=== PATIENT | male | born 1955 | race Caucasian/White ===

== ENCOUNTER 2023-01-09 14:29 | Outpatient (OUT) | payer MEDICARE, OTHER, SELFPAY ==
[2023-01-09 15:14] LABS: Basophils Percent Auto 0.2 % (0.2-2.0); Eosinophils Absolute Auto 0.2 10^3/uL (0.0-0.7); Eosinophils Percent Auto 5.6 % (0.9-7.0); Hematocrit 37.8 % (42.0-54.0); Hemoglobin 12.8 g/dL (14.0-18.0); Immature Granulocytes Abs Auto 0.01 10^3/uL (0.00-0.03); Immature Granulocytes Pct Auto 0.2 % (0.0-0.5); Lymphocytes Absolute Auto 0.7 10^3/uL (1.2-3.8); Lymphocytes Percent Auto 17.2 % (20.5-60.0); Mean Corpuscular HGB Conc 33.9 g/dL (29.9-35.2); Mean Corpuscular Hemoglobin 32.8 pg (25.9-34.0); Mean Corpuscular Volume 96.9 fL (80.0-94.0); Monocytes Absolute Auto 0.5 10^3/uL (0.3-0.8); Monocytes Percent Auto 11.8 % (1.7-12.0); Neutrophils Absolute Auto 2.8 10^3/uL (1.4-6.5); Platelet Count 112 10^3/uL (150-450); Red Cell Distribution Width 13.7 % (11.0-15.0); White Blood Count 4.3 10^3/uL (4.0-11.0)
[2023-01-09 15:27] LABS: Estimated Average Glucose 131 mg/dL; Glycohemoglobin A1C 6.2 % (4.5-6.2)
[2023-01-09 16:10] LABS: Alanine Aminotransferase 39 U/L (16-63); Albumin Globulin Ratio 0.7; Albumin Level 2.6 g/dL (3.4-5.0); Alkaline Phosphatase 153 U/L (46-116); Anion Gap 10.1; Aspartate Amino Transferase 42 U/L (15-37); BUN Creatinine Ratio 14.6; Bilirubin Total 2.4 mg/dL (0.2-1.0); Calcium 8.7 mg/dL (8.5-10.1); Carbon Dioxide 28.2 mmol/L (21.0-32.0); Chloride 104 mmol/L (98-107); Chol HDL Ratio 2.7; Cholesterol 147 mg/dL (<=200); Estimated GFR (African America >60 (>=60); Estimated GFR (Non-African Ame >60 (>=60); Free T3 2.33 pg/mL (2.18-3.98); Glucose 114 mg/dL (74-106); HDL Cholesterol 55 mg/dL (40-60); LDL Cholesterol Calculated 81.6 mg/dL; Potassium 4.3 mmol/L (3.5-5.1); Sodium 138 mmol/L (136-145); Thyroid Stimulating Hormone 0.768 uIU/mL (0.358-3.740); Total Protein 6.6 g/dL (6.4-8.2); Triglycerides 52 mg/dL (<=150); Uric Acid 4.3 mg/dL (3.5-7.2); VLDL CHOLESTEROL 10.4 mg/dL
[2023-01-09 16:38] LABS: Prostate Specific Antigen Scrn 0.17 ng/mL (<=4.00)
[2023-01-10 11:09] LABS: Insulin 27.4 uIU/mL (2.6-24.9)
== END 2023-01-09 14:30 ==
LOC: LAB 14:37
PROVIDERS: PCP Family Medicine; Visit Provider Family Medicine
DX: I10 Essential (primary) hypertension (principal); E11.21 Type 2 diabetes mellitus with diabetic nephropathy; E78.5 Hyperlipidemia, unspecified; R60.0 Localized edema; Z12.5 Encounter for screening for malignant neoplasm of prostate
CPT/HCPCS: 36415; 80053; 80061; 83036; 83525; 84436; 84443; 84481; 84550; 85025; G0103

== ENCOUNTER 2023-02-04 11:05 | Outpatient (OUT) | payer MEDICARE, OTHER, SELFPAY ==
[2023-02-04 12:21] LABS: Alanine Aminotransferase 42 U/L (16-63); Albumin Globulin Ratio 0.7; Albumin Level 2.5 g/dL (3.4-5.0); Alkaline Phosphatase 132 U/L (46-116); Aspartate Amino Transferase 37 U/L (15-37); BUN Creatinine Ratio 26.4; Bilirubin Total 1.5 mg/dL (0.2-1.0); Calcium 8.4 mg/dL (8.5-10.1); Carbon Dioxide 25.7 mmol/L (21.0-32.0); Chloride 108 mmol/L (98-107); Estimated GFR (African America >60 (>=60); Estimated GFR (Non-African Ame >60 (>=60); Globulin 3.6 g/dL; Glucose 76 mg/dL (74-106); Potassium 4.7 mmol/L (3.5-5.1); Sodium 140 mmol/L (136-145); Total Protein 6.1 g/dL (6.4-8.2)
[2023-02-05 06:08] LABS: HBsAg Screen Negative (Negative); HCV Ab Non Reactive (Non Reactive); Hep A Ab, IgM Negative (Negative); Hep B Core Ab, IgM Negative (Negative)
== END 2023-02-04 11:06 | disposition home or self-care (01) ==
LOC: LAB 11:08
PROVIDERS: PCP Family Medicine; Visit Provider Family Medicine
DX: R79.89 Other specified abnormal findings of blood chemistry (principal)
CPT/HCPCS: 36415; 80053; 80074

== ENCOUNTER 2023-05-27 12:17 | Emergency (ER) | payer MEDICARE, OTHER, SELFPAY ==
[2023-05-27 12:22] VITALS: BP 173/94; PULSE 71; RESP 24; TEMP 36.4; O2SAT 96; BMI 46.0
--- NOTE | 2023-05-27 12:31 | XR_ITS ---
The [address] [address] Patient Name: JAZMYNE PENN MRN: [id number] date: 1955 Sex: M Assigned Patient Location: ER Current Patient Location: ER Accession/Order Number: [id number] Exam Date: 05/27/2023 12:55 Report Date: 05/27/2023 13:10 At the request of: AFTAB KENNEY Procedure: XR chest 2V EXAMINATION: XR chest 2V HISTORY: sob COMPARISON: XR chest 03/04/2019 FINDINGS: LUNGS: Minimal haziness within lung bases, right greater than left. VASCULATURE: No increased pulmonary vasculature. PLEURA: No pneumothorax, effusion, or pleural thickening. CARDIAC: No cardiomegaly or cardiac silhouette abnormality. MEDIASTINUM: No visible mass or adenopathy. BONES: No fracture or visible bone lesion. OTHER: Negative. XR/XR chest 2V IMPRESSION: 1. Very mild opacity within lung bases; atelectasis versus infiltrates. Electronically authenticated by: ARIEL SIDHU Date: 05/27/2023 13:10
[2023-05-27 12:51] LABS: Hematocrit 37.2 % (42.0-54.0); Hemoglobin 12.5 g/dL (14.0-18.0); Mean Corpuscular HGB Conc 33.6 g/dL (29.9-35.2); Mean Corpuscular Hemoglobin 33.3 pg (25.9-34.0); Mean Corpuscular Volume 99.2 fL (80.0-94.0); Mean Platelet Volume 9.7 fL (9.5-13.5); Platelet Count 119 10^3/uL (150-450); Red Blood Count 3.75 10^6/uL (4.70-6.10); Red Cell Distribution Width 13.7 % (11.0-15.0); White Blood Count 5.1 10^3/uL (4.0-11.0)
[2023-05-27 13:04] LABS: Alanine Aminotransferase 34 U/L (16-63); Albumin Globulin Ratio 0.6; Albumin Level 2.3 g/dL (3.4-5.0); Alkaline Phosphatase 193 U/L (46-116); Anion Gap 6.4; Aspartate Amino Transferase 45 U/L (15-37); BUN Creatinine Ratio 21.2; Bilirubin Total 1.6 mg/dL (0.2-1.0); Calcium 8.4 mg/dL (8.5-10.1); Carbon Dioxide 29.1 mmol/L (21.0-32.0); Chloride 105 mmol/L (98-107); Estimated GFR (African America >60 (>=60); Estimated GFR (Non-African Ame >60 (>=60); Globulin 3.9 g/dL; Glucose 76 mg/dL (74-106); Potassium 4.5 mmol/L (3.5-5.1); Sodium 136 mmol/L (136-145); Total Protein 6.2 g/dL (6.4-8.2)
--- NOTE | 2023-05-27 13:08 | US_ITS ---
The [address] [address] Patient Name: JAZMYNE PENN MRN: [id number] date: 1955 Sex: M Assigned Patient Location: ER Current Patient Location: ED.MAIN Accession/Order Number: [id number] Exam Date: 05/27/2023 13:09 Report Date: 05/27/2023 13:47 At the request of: AFTAB KENNEY Procedure: US abdomen limited EXAM: US abdomen limited EXAM DATE: 05/27/2023 11:09 AM MDT COMPARISON: Ultrasound abdomen 01/11/2017. INDICATION: Ascites. TECHNIQUE: Limited ultrasound of the abdomen was performed to evaluate for ascites. Images were reviewed on a separate workstation. FINDINGS: Static images from the right lower quadrant, left upper quadrant, left lower quadrant and right upper quadrant are without evidence of intra-abdominal ascites. US/US abdomen limited IMPRESSION: No ascites visualized. Electronically authenticated by: NILA RYAN Date: 05/27/2023 13:47
[2023-05-27 13:16] LABS: Lactate/Lactic Acid 1.2 mmol/L (0.4-2.0)
[2023-05-27 13:32] LABS: Basophils Abs Manual 0.05 10^3/uL (0.00-0.10); Macrocytosis 1+; Monocytes Absolute Manual 0.66 10^3/uL (0.30-0.80); Segmented Neut Absolute Manual 3.57 10^3/uL (1.4-6.5)
--- NOTE | 2023-05-27 14:41 | ED.GENADUL1 ---
HPI - General Adult General Chief complaint: Abdominal Pain Stated complaint: ABDOMIANL PAIN Time Seen by Provider: 05/27/23 12:30 Source: patient Mode of arrival: walk-in Limitations: no limitations History of Present Illness HPI narrative: Patient is a 67-year-old male who is presenting to the Emergency Room with chief complaint abdominal swelling, and a 20?30 pound weight gain in the past 2 months. Patient believes that his ascites is filling up again. Patient has VELOZ From previous diagnoses. Patient had a stent placed in his liver approximately 10 years ago. As a last time patient had a paracentesis was approximately 10 years ago. Patient PCP is Dr. Muñoz. Patient was seen a liver specialist at [facility] that is no longer there. Patient was directed to come to the Emergency Room by Dr. Muñoz nursing staff for evaluation. Patient has no fever, chills. No chest pain. Patient has mild shortness of breath, patient feels that his abdomen is getting bigger which is causing more mild shortness of breath. He does have a history of emphysema chronic obstructive pulmonary disease. Patient has no nausea or vomiting. No diarrhea. No bowel or bladder changes. This has been ongoing for 2 months, slowly getting worse, so patient came into the Emergency Room today for evaluation. Patient has chronic peripheral edema to bilateral lower extremities, patient thinks his swelling is getting a little worse. . All systems are negative except as noted/marked. All systems reviewed and otherwise negative. . Nurses note and vital signs reviewed and patient is not hypoxic. General: The patient appears well and in no apparent distress. Patient is resting comfortably on cart. Patient is not toxic, lethargic, or listless Skin: Warm, dry, no pallor noted. There is no rash noted. No petechiae, purpura. Head: Normocephalic, atraumatic Eye: Normal conjunctiva, no drainage, EOMI. PERRL Ears, Nose, Mouth, and Throat: oral mucosa is moist. Nares patent. Mouth without vesicles. Cardiovascular: Regular Rate and Rhythm, no murmur, gallop, rub Respiratory: Patient is in no distress, no accessory muscle use, lungs are clear to auscultation, no wheezing, rales or rhonchi Back: non-tender, no CVA tenderness bilaterally to percussion. No CT LS midline pain GI: soft, no tenderness to palpation, no masses appreciated. No rebound, guarding, or rigidity noted. No flank pain bilateral, No distention Musculoskeletal: Patient has full range of motion of all of the extremities, no motor, sensory, or focal neurological deficits. 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 No new signs of cellulitis or infection, no new drainage. Neurological: A&O x3, normal speech Psychiatric: Cooperative Related Data Home Medications Medication Instructions Recorded Confirmed carvedilol 6.25 mg tablet 6.25 mg PO DAILY 05/27/23 05/27/23 furosemide 20 mg tablet 20 mg PO DAILY 05/27/23 05/27/23 glimepiride 4 mg tablet 4 mg PO DAILY 05/27/23 05/27/23 potassium chloride 20 mEq 20 meq PO DAILY 05/27/23 05/27/23 tablet,extended release(part/cryst) (Klor-Con M) spironolactone 25 mg tablet 25 mg PO QID 05/27/23 05/27/23 Allergies Allergy/AdvReac Type Severity Reaction Status Date / Time No Known Drug Allergies Allergy Verified 05/27/23 12:25 PFSH PFS Social History Smoking status: Light tobacco smoker Exam Constitutional Vital Signs, click to edit/add: Last Vital Signs Temp 97.6 F 05/27/23 12:22 Pulse 71 05/27/23 12:22 Resp 24 05/27/23 12:22 BP 173/94 H 05/27/23 12:22 Pulse Ox 96 05/27/23 12:22 Course Vital Signs Vital signs: Vital Signs Temperature 97.6 F 05/27/23 12:22 Pulse Rate 71 05/27/23 12:22 Respiratory Rate 24 05/27/23 12:22 Blood Pressure 173/94 H 05/27/23 12:22 Pulse Oximetry 96 05/27/23 12:22 Temperature 97.6 F 05/27/23 12:22 Pulse Rate 71 05/27/23 12:22 Respiratory Rate 24 05/27/23 12:22 Blood Pressure 173/94 H 05/27/23 12:22 Pulse Oximetry 96 05/27/23 12:22 Medical Decision Making MDM Narrative Medical decision making narrative: Patient labwork shows chronic changes, nothing acute. Patient does have mild anemia, mild, cytopenia, and slight elevation of total bilirubin and alkaline phosphatase. Patient had a ultrasound that showed no ascites. Information and labs and ultrasound report were discussed with patient and Dr. Muñoz. Patient follow-up with Dr. Muñoz for further evaluation. Lab Data Lab results reviewed: Yes I reviewed the patient's lab results Labs: Lab Results 05/27/23 Range/Units 12:40 WBC 5.1 (4.0-11.0) 10^3/uL RBC 3.75 L (4.70-6.10) 10^6/uL Hgb 12.5 L (14.0-18.0) g/dL Hct 37.2 L (42.0-54.0) % MCV 99.2 H (80.0-94.0) fL MCH 33.3 (25.9-34.0) pg MCHC 33.6 (29.9-35.2) g/dL RDW 13.7 (11.0-15.0) % Plt Count 119 L (150-450) 10^3/uL MPV 9.7 (9.5-13.5) fL Seg Neuts % (Manual) 70.0 Lymphocytes % (Manual) 8.0 L (20.5-60.0) % Monocytes % (Manual) 13.0 H (1.7-12.0) % Eosinophils % (Manual) 8.0 H (0.9-7.0) % Basophils % (Manual) 1.0 (0.2-2.0) % Neutrophils # (Manual) 3.57 (1.4-6.5) 10^3/uL Lymphocytes # (Manual) 0.40 L (1.20-3.80) 10^3/uL Monocytes # (Manual) 0.66 (0.30-0.80) 10^3/uL Eosinophils # (Manual) 0.40 (0.00-0.70) 10^3/uL Basophils # (Manual) 0.05 (0.00-0.10) 10^3/uL Macrocytosis 1+ Sodium 136 (136-145) mmol/L Potassium 4.5 (3.5-5.1) mmol/L Chloride 105 (98-107) mmol/L Carbon Dioxide 29.1 (21.0-32.0) mmol/L Anion Gap 6.4 BUN 21.0 H (7.0-18.0) mg/dL Creatinine 0.99 (0.70-1.30) mg/dL Est GFR ( Amer) >60 (>=60) Est GFR (Non-Af Amer) >60 (>=60) BUN/Creatinine Ratio 21.2 Glucose 76 (74-106) mg/dL Lactate 1.2 (0.4-2.0) mmol/L Calcium 8.4 L (8.5-10.1) mg/dL Total Bilirubin 1.6 H (0.2-1.0) mg/dL AST 45 H (15-37) U/L ALT 34 (16-63) U/L Alkaline Phosphatase 193 H (46-116) U/L Total Protein 6.2 L (6.4-8.2) g/dL Albumin 2.3 L (3.4-5.0) g/dL Globulin 3.9 g/dL Albumin/Globulin Ratio 0.6 Lipase 115.0 H (16.0-77.0) U/L Patient has mild anemia, thrombocytopenia. Patient has mild elevation of LFTs. Discharge Plan Discharge Chief Complaint: Abdominal Pain Clinical Impression: Abdominal pain Patient Disposition: Home, Self-Care Condition: Fair Prescriptions / Home Meds: No Action carvedilol 6.25 mg tablet 6.25 mg PO DAILY furosemide 20 mg tablet 20 mg PO DAILY glimepiride 4 mg tablet 4 mg PO DAILY potassium chloride [Klor-Con M20] 20 mEq tablet,ER particles/crystals 20 meq PO DAILY spironolactone 25 mg tablet 25 mg PO QID Instructions: Abdominal Pain (ED) Additional Instructions: There is no obvious ascites noted on-year-old ultrasound. Information is been given to Dr. Muñoz. Follow-up with him in the office for further treatment as needed Stand Alone Forms: Portal Instructions Referrals: Desmond Muñoz MD [Primary Care Provider] - 1 week Discharge Date/Time: 05/27/23 14:39
== END 2023-05-27 14:39 | disposition home or self-care (01) ==
PROVIDERS: Emergency Provider Emergency Medicine; PCP Family Medicine
DX: R10.9 Unspecified abdominal pain (principal); K75.81 Nonalcoholic steatohepatitis (NASH); R60.9 Edema, unspecified; Z79.899 Other long term (current) drug therapy; F17.210 Nicotine dependence, cigarettes, uncomplicated
CPT/HCPCS: 36415; 71046; 76705; 80053; 83605; 83690; 85027; 99285

== ENCOUNTER 2023-05-30 10:51 | Outpatient (OUT) | payer MEDICARE, OTHER, SELFPAY ==
[2023-05-30 11:39] LABS: Hemoglobin 12.6 g/dL (14.0-18.0); Mean Corpuscular HGB Conc 33.2 g/dL (29.9-35.2); Mean Corpuscular Hemoglobin 33.3 pg (25.9-34.0); Mean Corpuscular Volume 100.5 fL (80.0-94.0); Mean Platelet Volume 10.4 fL (9.5-13.5); Platelet Count 133 10^3/uL (150-450); Red Blood Count 3.78 10^6/uL (4.70-6.10); Red Cell Distribution Width 13.6 % (11.0-15.0); White Blood Count 5.9 10^3/uL (4.0-11.0)
[2023-05-30 11:49] LABS: Alanine Aminotransferase 37 U/L (16-63); Albumin Globulin Ratio 0.6; Albumin Level 2.4 g/dL (3.4-5.0); Alkaline Phosphatase 198 U/L (46-116); Anion Gap 7.3; Aspartate Amino Transferase 48 U/L (15-37); BUN Creatinine Ratio 15.7; Bilirubin Total 1.3 mg/dL (0.2-1.0); Calcium 8.7 mg/dL (8.5-10.1); Carbon Dioxide 30.9 mmol/L (21.0-32.0); Chloride 105 mmol/L (98-107); Estimated GFR (African America >60 (>=60); Estimated GFR (Non-African Ame >60 (>=60); Globulin 4.1 g/dL; Glucose 121 mg/dL (74-106); Potassium 4.2 mmol/L (3.5-5.1); Sodium 139 mmol/L (136-145); Thyroid Stimulating Hormone 0.822 uIU/mL (0.358-3.740); Total Protein 6.5 g/dL (6.4-8.2)
[2023-05-30 12:29] LABS: Free T4 1.15 ng/dL (0.76-1.46)
[2023-05-30 12:41] LABS: Atypical Lymphocytes Abs Man 0.1; Basophils Abs Manual 0.05 10^3/uL (0.00-0.10); Eosinophils Absolute Manual 0.17 10^3/uL (0.00-0.70); Lymphocytes Absolute Manual 0.82 10^3/uL (1.20-3.80); Monocytes Absolute Manual 0.59 10^3/uL (0.30-0.80); Segmented Neut Absolute Manual 4.13 10^3/uL (1.4-6.5)
== END 2023-05-30 10:52 | disposition home or self-care (01) ==
LOC: LAB 10:56
PROVIDERS: PCP Family Medicine; Visit Provider Family Medicine
DX: R07.9 Chest pain, unspecified (principal); I11.0 Hypertensive heart disease with heart failure; I50.9 Heart failure, unspecified
CPT/HCPCS: 36415; 80053; 83880; 84439; 84443; 85025; 85027

== ENCOUNTER 2023-06-12 13:57 | Outpatient (OUT) | payer MEDICARE, OTHER, SELFPAY ==
--- NOTE | 2023-06-12 14:36 | CA_ITS ---
Patient Name: JAZMYNE PENN MR#: [id number] : 1955 Exam Date: 06/12/2023 Ordering Doctor: DR Desmond Muñoz . ECHOCARDIOGRAM REPORT PROCEDURE: CA ECHO DOPPLER COMPLETE INDICATIONS: Chest pain COMPARISON: None. DESCRIPTION: COMPLETE ECHOCARDIOGRAM Real-time transthoracic echocardiography with 2D, M-mode, spectral and color flow Doppler performed. QUALITY: Technically difficult due to patient's condition. 71 340# BSA 2.64 m2 LEFT VENTRICLE: Normal chamber size. Thickened septal wall. LV EF: Global left ventricular systolic function is difficult to assess but appears preserved; visually estimated ejection fraction is 55 to 60%. Unable to assess regional wall motion abnormalities. DIASTOLIC: Grade II diastolic dysfunction. ATRIAL SEPTUM: Inadequately seen. LEFT ATRIUM: Mild dilatation. RIGHT ATRIUM: Mild dilatation. RIGHT VENTRICLE: Normal chamber size. Normal right ventricular systolic function. TRICUSPID VALVE: Normal mobility and thickness. No stenosis with trivial regurgitation. Doppler studies reveal mildly (35-45) elevated right sided pressures. RVSP 37 mmHg MITRAL VALVE: Normal mobility and thickness. No evidence of mitral valve stenosis. There is no mitral annular calcification. No mitral regurgitation. AORTIC VALVE: Normal trileaflet appearance. Thickened aortic valve. Normal leaflet mobility. No evidence of aortic valve stenosis. No aortic regurgitation. AORTIC ROOT: Normal diameter and appearance. PULMONIC VALVE: Not well visualized. No stenosis. No regurgitation. PERICARDIUM: No evidence of pericardial effusion. IVC: Not well visualized. CONCLUSION: 1. Global left ventricular systolic function is normal; visually estimated ejection fraction is 55 to 60% 2. The right ventricle is normal in size and systolic function 3. Biatrial enlargement 4. Grade 2, moderate diastolic dysfunction 5. Mildly elevated right ventricular systolic pressure 6. Valvular structures are poorly seen; no significant valvular abnormalities Adult Echocardiography Procedure Report Left Ventricle LVEDD (3.7 - 5.6 cm): 4.82 cm LVESD (2.2 - 4.0 cm): 3.20 cm LVIVS thickness (0.6 - 1.2 cm): 1.57 cm LVPW thickness (0.5 - 1.0 cm): 1.14 cm e': 0.09 m/s E - e': 10.20 LVOT Max Gradient: 3.03 mm[Hg] LVOT Area (cm2): 0.87 m/s Peak Velocity (LVOT): 0.87 m/s LVOT Diameter 2.39 cm Left Atrium LA Volume Index (2D A2C): 36.58 ml/m2 Left Atrium Systolic Dimension: 3.85 cm Mitral Valve MV E to A Ratio: 0.99 Mitral Valve A-Wave Peak Velocity: 0.97 m/s Mitral Valve E-Wave Peak Velocity: 0.96 m/s Right Ventricle Aorta AO Root Diam: 4.04 cm Aortic Valve AoV Area (Peak Oswaldo): 3.40 cm2, 3.40 cm2 Peak Velocity(Antegrade Flow): 1.14 m/s Peak Gradient(Antegrade Flow): 5.22 mm[Hg] Tricuspid Valve Peak Velocity (Regurgitant Flow): 2.93 m/s Pulmonic Valve Mean Gradient: 4.59 mm[Hg] Mean Velocity: 1.00 m/s Peak Velocity: 1.44 m/s, 1.36 m/s Peak Gradient: 7.41 mm[Hg], 8.32 mm[Hg] Right Atrium Right Atrium Systolic Pressure: 52.43 ml, 52.43 ml Dictated by: Lillie Bonilla M.D. on 06/14/2023 at 14:17 Approved by: Lillie Bonilla M.D. on 06/14/2023 at 14:21
== END 2023-06-12 13:58 | disposition home or self-care (01) ==
LOC: CARD 13:57
PROVIDERS: PCP Family Medicine; Visit Provider Family Medicine
DX: R07.9 Chest pain, unspecified (principal)
CPT/HCPCS: 93306

== ENCOUNTER 2023-06-24 08:53 | Outpatient (OUT) | payer MEDICARE, OTHER, SELFPAY ==
--- NOTE | 2023-06-24 | NM_ITS ---
Patient Name: JAZMYNE PENN MR#: [id number] : 1955 Exam Date: 06/24/2023 Ordering Doctor: DR Desmond Muñoz . RADIOLOGY REPORT PROCEDURE: NM ALESHIA PERF SPECT REST STR COMPARISON: None. INDICATIONS: CHEST PAIN TECHNIQUE: Exam Description: Stress/Rest two day protocol gated SPECT Rest Imagin.9 mCi Tc-99m Cardiolite IV on 06/25/2023 Stress Imaging 26.0 mCi Tc-99m Cardiolite IV on 06/24/2023 Exercise Protocol: 0.4 mg Lexiscan given IV Heart Rate (bpm): Rest: 65 Max: 77 PMHR: 49 Blood Pressure: Rest: 132/86 Max: 140/82 Symptoms: Rest and peak stress ECG findings were normal and the exercise portion of the study was normal per attending physician Dr. Langford . For more details please see separate cardiac stress test report. FINDINGS: QUALITY OF STUDY: Excellent. PERFUSION DEFECT: LOCATION: Mid-inferolateral. Apical inferior. SIZE: Small (1-2 segments). SEVERITY: Mild. TYPE: Persistent. WALL MOTION: Normal. LV SIZE: Enlarged; EDV 164 mL. TID / TCD: None; 1.0 LVEF: Normal. Calculated EF 64%. SUMMARY: Myocardial perfusion imaging study has ABNORMAL findings. CONCLUSION: 1. No acute or reversible ischemia. 2. Inferior lateral wall small area of fixed ischemia versus attenuation artifact. Fixed ischemia is favored. 3. Left ventriculomegaly, 164 mL. 4. Normal wall motion and ejection fraction. Dictated by: Ronald Davis M.D. on 06/25/2023 at 15:03 Approved by: Ronald Davis M.D. on 06/25/2023 at 15:13
[2023-06-24] MEDS: REGADENOSON 0.4 MG/5 ML SYRINGE IV (10:00)
--- NOTE | 2023-06-24 15:30 | PM.STRESS ---
Stress Test Stress Test Allergies Allergy/AdvReac Type Severity Reaction Status Date / Time No Known Drug Allergies Allergy Verified 05/27/23 12:25 Requesting physician: Desmond Muñoz Procedure: Lexiscan Cardiolite stress test General Information: Reason for Stress Test: Chest pain, dyspnea Cardiac History and Risk Factors: Smokes cigars, HTN, DM2. Father had valve replacement . Resting 12 - Lead Electrocardiogram: Rate & rhythm: Normal sinus at a rate of 63. [place]: Normal T-waves: Biphasic to flattened in aVL ST-segments: Normal Stress Test: Protocol: Kavon protocol was initiated, but due to inability to ambulate on the treadmill, the exercise component was canceled.? Testing was changed to Lexiscan protocol, with injection of 0.4mg Lexiscan IV push followed by Cardiolite. Blood pressure: Initial: 132/86, Maximum: 140/82 Rate & rhythm: Patient remained in sinus rhythm during the exercise and recovery portions of the study.? The maximum heart rate was 77, which was 49% of the maximum predicted heart rate 155. Occasional PVC noted. ST-segments & T-waves: There were no T-wave changes and no ST-segment changes when compared to the baseline EKG. Patient response/symptoms: There were no symptoms similar to the chief complaint. Interpretation: This is a normal Lexiscan stress test without electrocardiographical evidence of ischemia or infarct. No reproducible symptoms. Cardiolite imaging interpretation will be reported separately. Clinical correlation required.?
== END 2023-06-24 08:54 | disposition home or self-care (01) ==
LOC: CARD 08:53
PROVIDERS: PCP Family Medicine; Visit Provider Family Medicine
DX: R07.9 Chest pain, unspecified (principal)
CPT/HCPCS: 78452; 93017; A9500; J2785

== ENCOUNTER 2023-08-29 12:59 | Emergency (ER) | payer OTHER, SELFPAY ==
[2023-08-29 13:05] VITALS: BP 133/70; PULSE 69; RESP 20; TEMP 36.6; O2SAT 97; BMI 45.0
[2023-08-29 13:13] VITALS: O2SAT 98
--- OUTSIDE RECORDS SUMMARY | 2023-08-29 13:20 | XMS_ITS | CCD ---
Author Name Unknown Address [address] [place] [address] Organization [facility] Care Team Providers Care Stain Dipper Name Role Phone RASHAAD, DR WOODS Admitting Unavailable HOY, DR WOODS Attending Unavailable HOY, DR WOODS Primary Care Unavailable HOY, DR WOODS Admitting Unavailable HOY, DR WOODS Attending Unavailable HOY, DR WOODS Primary Care Unavailable HOY, DR WOODS Admitting Unavailable HOY, DR WOODS Attending Unavailable HOY, DR WOODS Primary Care Unavailable HOY, DR WOODS Consulting Unavailable Peggy Muñoz M Primary Care Unavailable Alden You Attending UnavailAlden Fuller Admitting UnavailTruman Samaniego Attending Unavailable Nat MURRAY Attending Unavailable Nat MURRAY Attending Unavailable Truman FUNES Attending Unavailable Nat MURRAY Attending Unavailable Tuan Lira Attending Unavailable Nat MURRAY Attending Unavailable Nat MURRAY Admitting Unavailable Medications Current Medications Medication Drug Class(es) Dates Sig (Normalized) Sig (Original) canagliflozin 100 mg oral tablet (1 source) Sodium-Glucose Cotransporter 2 Inhibitor Start: 06-09-2019 take 1 tablet by mouth once daily Canagliflozin (Invokana) 100 mg Tablet Active 100 MG PO Daily June 09, 2019 1:00am carvedilol 6.25 mg oral tablet (1 source) alpha-Adrenergic Elana, beta-Adrenergic Elana Start: 06-09-2019 take 1 tablet by mouth twice daily Carvedilol (Coreg) 6.25 mg Tablet Active 6.25 MG PO Twice daily June 09, 2019 1:00am ferrous sulfate 325 mg oral tablet (1 source) Start: 07-24-2019 take 325 mg by mouth three times daily Ferrous Sulfate Active 325 MG PO Three times daily July 24, 2019 1:00am furosemide 20 mg oral tablet (1 source) Loop Diuretic Start: 06-09-2019 Furosemide (Lasix) 20 mg Tablet Active 20 MG PO Q48H June 09, 2019 1:00am lisinopril 2.5 mg oral tablet (1 source) Angiotensin Converting Enzyme Inhibitor Start: 06-09-2019 take 2.5 mg by mouth once daily Lisinopril Active 2.5 MG PO Daily June 09, 2019 1:00am pioglitazone 15 mg oral tablet (1 source) Peroxisome Proliferator Receptor alpha Agonist, Peroxisome Proliferator Receptor gamma Agonist, Thiazolidinedione Start: 06-09-2019 take 1 tablet by mouth once daily Pioglitazone (Actos) 15 mg Tablet Active 15 MG PO Daily June 09, 2019 1:00am potassium chloride 20 meq powder for oral solution (1 source) Start: 06-09-2019 take 20 mEq by mouth once daily Potassium Chloride (Klor-Con) 20 mEq Packet Active 20 MEQ PO Daily June 09, 2019 1:00am spironolactone 25 mg oral tablet (1 source) Aldosterone Antagonist Start: 06-09-2019 take 25 mg by mouth four times daily Spironolactone Active 25 MG PO Four times daily June 09, 2019 1:00am vitamin b12 0.5 mg oral tablet (1 source) Vitamin B12 Start: 07-24-2019 take 1 tablet by mouth once daily Cyanocobalamin (Vitamin B-12) (Vitamin B-12) 500 mcg Tablet Active 500 MCG PO Daily July 24, 2019 1:00am zinc sulfate 220 mg oral tablet (1 source) Start: 06-09-2019 take 220 mg by mouth twice daily Zinc Sulfate Active 220 MG PO Twice daily June 09, 2019 1:00am Problems Active Problems Problem Classification Problem Date Documented Date Episodic/Chronic Deficiency and other anemia (1 source) Pancytopenia; Translations: [Other pancytopenia] 06-09-2019 Chronic Diabetes mellitus without complication (4 sources) Type 2 diabetes mellitus without complications; Translations: [TYPE 2 DM WITHOUT COMPLICATIONS] Onset: 07-02-2022 Chronic Hepatitis (1 source) Cirrhosis - non-alcoholic; Translations: [Nonalcoholic steatohepatitis (VELOZ)] 06-09-2019 Chronic Other liver diseases (1 source) Unspecified cirrhosis of liver; Translations: [K74.60 - Unspecified cirrhosis of liver] Onset: 08-04-2019 Chronic Unclassified (1 source) 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; Translations: [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] Onset: 08-04-2019 Past or Other Problems Problem Classification Problem Date Documented Da te Episodic/Chronic Other screening for suspected conditions (not mental disorders or infectious disease) (1 source) Abnormal findings on diagnostic imaging of other abdominal regions, including retroperitoneum; Translations: [R93.5 - Abnormal findings on diagnostic imaging of other abdominal regions, including retroperitoneum] Onset: 08-04-2019 Episodic Results Test Name Value Interpretation Reference Range Facility [facility] 04-18-2023 Consent [id number] 8#1.00CD:127 [facility] In office Testingon 04-18-20 23 In office Testing [id number] 87#1.00CD:127 [facility] Registrationon 04-18-2023 Registration [id number] 817#1.00CD:127 [facility] In office Testingon 03-15-20 23 In office Testing [id number] 518#1.00CD:127 [facility] [place] 03-08-2023 Consent [id number] 428#1.00CD:127 [facility] Registrationon 03-08-2023 Registration [id number] 376#1.00CD:127 [facility] In office Testingon 02-06-20 23 In office Testing [id number] 58#1.00CD:127 [facility] [place] 02-04-2023 Consent [id number] 60#1.00CD:127 [facility] Registrationon 02-04-2023 Registration [id number] 54#1.00CD:127 [facility] Patient Correspondenceon Patient Correspondence 104.170. [id number] F2#1.00CD:127 [facility] Physician Referralon 023 Physician Referral 104.170.. [id number] 0B#1.00CD:127 [facility] Physician Referral 104.170 [id number] 6C#1.00CD:127 [facility] [place] 11-09-2022 Consent [id number] 990#1.00CD:127 [facility] In office Testingon 11-10-19 23 In office Testing [id number] 0270#1.00CD:127 [facility] Registrationon 11-09-2022 Registration [id number] 388#1.00CD:127 [facility] [place] 07-27-2022 Consent [id number] 47#1.00CD:127 [facility] Registrationon 07-27-2022 Registration [id number] 98#1.00CD:127 [facility] [place] 07-09-2022 Consent [id number] 446#1.00CD:127 [facility] In office Testingon 07-09-20 22 In office Testing [id number] 803#1.00CD:127 [facility] Registrationon 07-09-2022 Registration [id number] 104#1.00CD:127 [facility] In office Testingon 07-06-20 22 In office Testing [id number] 851#1.00CD:127 Normal [facility] GLYCOHEMOGLOBIN A1Con 2021 ADA RECOMMENDATION SEE BELOW Normal [facility] Comment on above: Result Comment: ADA RECOMMENDED LIMIT 4.0 - 6.0 ADA THERAPEUTIC TARGET < 7.0 ACTION SUGGESTED > 7.0 Performed By: #### A 1C #### [facility] [address] [place] [address] Dr. Sandor Coffman Glucose [Mass/Vol] 140 mg/dL Normal [facility] Comment on above: Performed By: #### A 1C #### [facility] [address] [place] [address] Dr. Sandor Coffman HbA1c (Bld) [Mass fraction] 6.5 % Critically high 4.5-6.2 [facility] Comment on above: Performed By: #### A 1C #### [facility] [address] [place] [address] Dr. Sandor Coffman Registrationon 05-01-2022 Registration [id number] 929#1.00CD:127 Normal [facility] [place] 04-27-2022 Consent [id number] 0784#1.00CD:127 Normal [facility] HIP LEFT 1 OR 2 VWS WITH PEL VISon 08-27-2019 HIP LEFT 1 OR 2 VWS WITH PELVIS [facility] Department of Radiology [address] [place] [id number] Patient Name: JAZMYNE PENN : 1955 Sex: M Age: Race: White Pt. Location: Patient Status: Ordered Date: 08/27/2019 9:45:00 AM Completed Date: 08/27/2019 09:44 AM Requesting Provider: LIZET LOVELACE Attending Provider: Report Copy To: Signs & Symptoms: Z96.642 Presence of left artificial hip joint I10 History: [place] Comments: , Views (X-RAY, HIP): Radiologic Protocol , Views (X-RAY, HIP): Radiologic Protocol , , , Ordering Provider - LIZET LOVELACE MD , Exam: HIP LEFT 1 OR 2 VWS WITH PELVIS HIP LEFT 1 OR 2 VWS WITH PELVIS 08/27/2019 9:44 AM SIGNS AND SYMPTOMS: Z96.642 Presence of left artificial hip joint I10 TECHNOLOGIST COMMENTS: Ortho check left hip March 2019. QUESTION FOR THE RADIOLOGIST: , Views (X-RAY, HIP): Radiologic Protocol , Views (X-RAY, HIP): Radiologic Protocol , , , Ordering Provider - LIZET LOVELACE MD , PROTOCOL: AP(PA) and Lateral views were obtained. COMPARISON: 06/18/2019 FINDINGS: Left total hip in satisfactory alignment. Persistent lucency between the proximal orthopedic prosthesis bone interface may reflect ReVision, prior infection, or loosening. Degenerative changes right hip. Pelvic alignment satisfactory IMPRESSION: 1. No change in alignment with the chronic findings as above. Electronically signed: David Sanford. Transcribed by: [email or web address], User Resident: Electronically Signed by: DAVID SANFORD @ 08/27/2019 01:52 PM Normal [facility] Comment on above: Order Comment: , Alex ws (X-RAY, HIP): Radiologic Protocol , Views (X-RAY, HIP): Radiologic Protocol , , , Ordering Provider - LIZET LOVELACE MD , HIP LEFT 1 OR 2 VWS WITH PEL VISon 06-18-2019 HIP LEFT 1 OR 2 VWS WITH PELVIS [facility] Department of Radiology [address] [place] [id number] Patient Name: JAZMYNE PENN : 1955 Sex: M Age: Race: White Pt. Location: Patient Status: Ordered Date: 06/17/2019 3:35:00 PM Completed Date: 06/18/2019 10:30 AM Requesting Provider: LIZET LOVELACE Attending Provider: Report Copy To: Signs & Symptoms: Z96.642 Presence of left artificial hip joint I10 History: [place] Comments: , Views (X-RAY, HIP): Radiologic Protocol , Views (X-RAY, HIP): Radiologic Protocol , , , Ordering Provider - LIZET LOVELACE MD , Exam: HIP LEFT 1 OR 2 VWS WITH PELVIS HIP LEFT 1 OR 2 VWS WITH PELVIS 06/18/2019 10:30 AM EST SIGNS AND SYMPTOMS: Z96.642 Presence of left artificial hip joint I10 TECHNOLOGIST COMMENTS: History of multiple left hip surgeries, last surgery was 04/10/2019. Ortho follow up. QUESTION FOR THE RADIOLOGIST: , Views (X-RAY, HIP): Radiologic Protocol , Views (X-RAY, HIP): Radiologic Protocol , , , Ordering Provider - LIZET LOVELACE MD , PROTOCOL: AP(PA) and Lateral views were obtained. COMPARISON: None FINDINGS: No pelvic fracture. Total hip arthroplasty. Alignment unchanged. No periprosthetic fracture or loosening. I'll degenerative changes in the right hip. No other pelvic fractures noted. IMPRESSION: 1. Stable left total hip arthroplasty. No periprosthetic fracture. No loosening Electronically signed by:Carlos Cameron. Transcribed by: [email or web address], User Resident: Electronically Signed by: CARLOS CAMERON @ 06/18/2019 02:11 PM Normal [facility] Comment on above: Order Comment: , Heidie ws (X-RAY, HIP): Radiologic Protocol , Views (X-RAY, HIP): Radiologic Protocol , , , Ordering Provider - LIZET LOVELACE MD , Encounters Encounter Date Encounter Type Care Provider Facility Start: 04-18-2023 End: 04-19-2023 ambulatory Tuan Churchaquilino [facility] Start: 03-08-2023 End: 03-09-2023 ambulatory Nat Petr TREVOR Facility[facility] Start: 02-04-2023 End: 02-05-2023 ambulatory Nat Petr TREVOR [facility] Start: 01-10-2023 ambulatory Truman FUNES Facilit y:[facility] Start: 01-09-2023 ambulatory Truman FUNES Facilit y:[facility] Suazo Start: 11-09-2022 End: 11-10-2022 ambulatory Nat Petr TREVOR [facility] Start: 07-27-2022 End: 07-28-2022 ambulatory Truman FUNES [facility] Start: 07-02-2022 End: 07-03-[address] PEGGY MUÑOZ Facility:[facility] Start: 06-15-2022 End: 06-16-2022 ambulatory Nat Petr MURRAY [facility] Start: 04-27-2022 End: 04-28-2022 ambulatory Truman FUNES [facility] Start: 12-22-[address] PEGGY MUÑOZ Facility :[facility] Start: 10-03-[address] PEGGY MUÑOZ Facility :[facility] Start: 08-04-2019 End: 08-04-2019 ambulatory Peggy Muñoz Facility:[facility] Payers Date Payer Category Payer Unknown [id number] 1957 Self-pay 1955 Unknown [id number] 1955 Unknown [id number] 1955 Unknown [id number] 1955 Unknown [id number] Medicare [id number] Private Health Insurance [employer] [id number] Unknown [id number] Unknown [id number] Worker's Compensation [employer] [facility] [id number] Social History Date Type Detail Facility Tobacco smoking stat [facility] Unknown if ever smoked [facility] Work Phone: Start: 1955 Sex Assigned At Male [place] Evaluation note Note Date & Type Note Facility Evaluation note No assessment information availa ble [facility] Work Phone: Summary Purpose Family History No Family History Records Found Relationship Condition Age at Onset Recorded Date/T jacob Not Specified No pertinent family history Unknown Advance Directives No Advanced Directives Records FoundNo Advanced Directives Records FoundNo Advanced Directives Records FoundNo Advanced Directives Records Found Additional Source Comments (unrecognized sect ion and content) No Status Records FoundNo Status Records FoundNo Status Records FoundNo Status Records Found INFORMATION SOURCE (unrecogn ized section and content) DATE CREATED AUTHOR 06/17/2020 [facility] DATE CREATED AUTHOR AUTHOR'S ORGANIZ ATION 07/07/[address] [facility] DATE CREATED AUTHOR AUTHOR'S ORGANIZ ATION 03/30/2023 [facility] DATE CREATED AUTHOR AUTHOR'S ORGANIZ ATION 04/20/2023 [facility] Goals (unrecognized section and content) Goals may be documented in a n alternate section FOR RECORDS PERTAINING TO PATIENTS WHO ARE OR HAVE BEEN ENROLLED IN A CHEMICAL DEPENDENCY/SUBSTANCEABUSE PROGRAM, SOME INFORMATION MAY BE OMITTED. This clinical summary was aggregated from multiple sources. Caution should be exercised in using it in the provision of clinical care. This summary normalizes information from multiple sources, and as a consequence, information in this document may materially change the coding, format and clinical context of patient data. In addition, data may be omitted in some cases. CLINICAL DECISIONS SHOULD BE BASED ON THE PRIMARY CLINICAL RECORDS. [employer] provides no warranty or guarantee of the accuracy or completeness of information in this document.
--- NOTE | 2023-08-29 13:39 | XR_ITS ---
The [address] [address] Patient Name: JAZMYNE PENN MRN: [id number] date: 1955 Sex: M Assigned Patient Location: ER Current Patient Location: ER Accession/Order Number: [id number] Exam Date: 08/29/2023 13:48 Report Date: 08/29/2023 14:23 At the request of: BAYRON CHAU Procedure: XR ribs RT min 3V w CXR1V IMAGES REVIEWED: XR ribs RT min 3V w CXR1V COMPARISON: 05/27/2023. CLINICAL INDICATION: fall, trauma FINDINGS/IMPRESSION: 1. Acute mildly displaced right posterior fifth and sixth rib fractures. 2. Associated small right lateral midlung hemothorax/pleural thickening. 3. Numerous old right rib fractures with callus formation. 4. No evidence of pneumothorax. Electronically authenticated by: ANNABEL BROWN Date: 08/29/2023 14:23
[2023-08-29 14:30] VITALS: BP 138/68; PULSE 68; RESP 20; O2SAT 99
--- NOTE | 2023-08-29 14:33 | CT_ITS ---
The [address] [address] Patient Name: JAZMYNE PENN MRN: [id number] date: 1955 Sex: M Assigned Patient Location: ER Current Patient Location: ER Accession/Order Number: [id number] Exam Date: 08/29/2023 15:47 Report Date: 08/29/2023 16:16 At the request of: ARNOLD BOYLE Procedure: CT chest w con EXAM: CT chest w con HISTORY: Rib fractures, hemothorax COMPARISON: Right rib radiographs today at 1:58 PM TECHNIQUE: CT of the chest with IV contrast. FINDINGS: There is no axillary or mediastinal thoracic lymphadenopathy. Normal heart size. Aorta is normal caliber. There are acute nondisplaced fractures of the posterolateral right fifth, sixth, and lateral seventh ribs. Numerous healed remote fractures are also present which are visualized radiographically. There is no hemothorax or pulmonary contusion. No pneumothorax. Limited evaluation of the upper abdomen demonstrates a TIPS stent in the liver. There is significant heterogeneous enhancement of the right hepatic lobe with innumerable areas of increased and decreased density noted. No perihepatic ascites. Thoracic alignment is normal. No compression fracture or subluxation. CT/CT chest w con IMPRESSION: 1. There are acute nondisplaced fractures present on the right involving the fifth seventh ribs. The radiographic findings earlier on today's date related to numerous healed right-sided rib fractures which are present anteriorly laterally. There is no associated pleural effusion/hemothorax or pneumothorax. 2. A TIPS stent is in place with cirrhotic liver morphology. There is markedly heterogeneous appearance of the right hepatic lobe with numerous areas of increased and decreased density which is not assessed in diagnostic detail on this chest study. No prior cross-sectional imaging of the abdomen is available for correlation. Given apparent history of cirrhosis, hepatocellular carcinoma or metastatic disease is primary differential consideration and designated imaging of the abdomen is recommended. Liver laceration is unlikely given lack of pulmonary contusion or perihepatic ascites. The TIPS stent does appear to be patent although CT can be insensitive in this regard. Electronically authenticated by: ERIC PADILLA Date: 08/29/2023 16:16
[2023-08-29 15:19] LABS: Basophils Percent Auto 0.3 % (0.2-2.0); Eosinophils Absolute Auto 0.2 10^3/uL (0.0-0.7); Eosinophils Percent Auto 3.1 % (0.9-7.0); Hematocrit 42.4 % (42.0-54.0); Hemoglobin 14.3 g/dL (14.0-18.0); Immature Granulocytes Abs Auto 0.03 10^3/uL (0.00-0.03); Immature Granulocytes Pct Auto 0.5 % (0.0-0.5); Lymphocytes Absolute Auto 0.8 10^3/uL (1.2-3.8); Lymphocytes Percent Auto 12.1 % (20.5-60.0); Mean Corpuscular HGB Conc 33.7 g/dL (29.9-35.2); Mean Corpuscular Hemoglobin 33.2 pg (25.9-34.0); Mean Corpuscular Volume 98.4 fL (80.0-94.0); Mean Platelet Volume 10.3 fL (9.5-13.5); Monocytes Absolute Auto 0.6 10^3/uL (0.3-0.8); Neutrophils Absolute Auto 4.8 10^3/uL (1.4-6.5); Platelet Count 152 10^3/uL (150-450); Red Blood Count 4.31 10^6/uL (4.70-6.10); Red Cell Distribution Width 13.9 % (11.0-15.0); White Blood Count 6.4 10^3/uL (4.0-11.0)
[2023-08-29 15:20] LABS: Anion Gap 11.2; BUN Creatinine Ratio 16.1; Calcium 8.9 mg/dL (8.5-10.1); Carbon Dioxide 29.2 mmol/L (21.0-32.0); Chloride 103 mmol/L (98-107); Estimated GFR (African America >60 (>=60); Estimated GFR (Non-African Ame 59 (>=60); Glucose 140 mg/dL (74-106); Potassium 4.4 mmol/L (3.5-5.1); Sodium 139 mmol/L (136-145)
[2023-08-29 16:00] VITALS: BP 132/68; PULSE 69; RESP 20; O2SAT 99
--- NOTE | 2023-08-29 17:49 | ED_ITS ---
HPI - General Adult General Chief complaint: Chest Pain Stated complaint: rt side ribs pain Time Seen by Provider: 08/29/23 13:06 Source: patient Mode of arrival: walk-in Limitations: no limitations History of Present Illness HPI narrative: 67-year-old male presents to the emergency department with complaint of right- sided rib pain. Patient states injury from fall on 08/26/2023 while at work. Has not sought treatment until now. Complains of associated pain on palpation. Pain worsens when she takes deep breath. Denies any shortness of breath, but feels like he cannot take deep breath due to the pain. Denies any fever, cough. Quality:?blunt trauma Severity:?moderate Timing:?as above, constant Context: injury occurred while at work Modifying factors:?pain worse with palpation, deep breath Associated symptoms: as above Related Data Home Medications Medication Instructions Recorded Confirmed carvedilol 6.25 mg tablet 6.25 mg PO DAILY 05/27/23 05/27/23 furosemide 20 mg tablet 20 mg PO DAILY 05/27/23 05/27/23 glimepiride 4 mg tablet 4 mg PO DAILY 05/27/23 05/27/23 potassium chloride 20 mEq 20 meq PO DAILY 05/27/23 05/27/23 tablet,extended release(part/cryst) (Klor-Con M) spironolactone 25 mg tablet 25 mg PO QID 05/27/23 05/27/23 Previous Rx's Medication Instructions Recorded hydrocodone 5 mg-acetaminophen 325 1 tab PO Q4H PRN pain 3 days #8 08/29/23 mg tablet tabs Allergies Allergy/AdvReac Type Severity Reaction Status Date / Time No Known Drug Allergies Allergy Verified 05/27/23 12:25 Review of Systems ROS Narrative CONST: Denies fever, chills HENT: Denies congestion RESP: Denies cough, shortness of breath CV: Denies palpitations GI: Denies abd pain, nausea, vomiting : Denies flank pain MS: + rib pain Denies back pain, myalgias SKIN: Denies color change, bruising NEURO: Denies numbness, weakness PSYCHIATRIC: Denies confusion PFSH PFSH Social History Smoking status: Light tobacco smoker Exam Narrative Exam Narrative: Vital signs reviewed Nurses notes noted CONST: Nontoxic, well appearing, well nourished, in no distress.? No diaph oresis.?? HENT: normocephalic, atraumatic, moist mucous membrane, no abnormalities of the nose noted, hearing normal CV: normal rate, regular rhythm, no murmur CHEST: + Diffuse tenderness to the anterior lateral right mid ribs. No swelling, discoloration, crepitus, deformity, instability, step off. . RESP: normal effort, speaking in complete sentences. Lung sounds clear and equal bilat.? No wheezes, rales, rhonchi GI: normal bowel sounds, soft, no distension, nontender : no CVA tenderness SKIN: no bruising NEURO: A&Ox 3, no focal findings PSYCH: normal mood, affect Constitutional Vital Signs, click to edit/add: Last Vital Signs Temp 97.9 F 08/29/23 13:05 Pulse 69 08/29/23 16:00 Resp 20 08/29/23 16:00 BP 132/68 08/29/23 16:00 Pulse Ox 99 08/29/23 16:00 O2 Del Method Room Air 08/29/23 16:00 Course Vital Signs Vital signs: Vital Signs Temperature 97.9 F 08/29/23 13:05 Pulse Rate 69 08/29/23 13:05 Respiratory Rate 20 08/29/23 13:05 Blood Pressure 133/70 08/29/23 13:05 Pulse Oximetry 97 08/29/23 13:05 Oxygen Delivery Method Room Air 08/29/23 13:05 Temperature 97.9 F 08/29/23 13:05 Pulse Rate 69 08/29/23 16:00 Respiratory Rate 20 08/29/23 16:00 Blood Pressure 132/68 08/29/23 16:00 Pulse Oximetry 99 08/29/23 16:00 Oxygen Delivery Method Room Air 08/29/23 16:00 Medical Decision Making MDM Narrative Medical decision making narrative: This is a pleasant 67-year-old gentleman that presents to the emergency department with complaint of right-sided rib injury. Injury occurred on 08/26/2023 while at work. States he tripped and fell, landing on his arm that was overlying his ribs. Complains of tenderness, worsening pain with deep breath. Denies any shortness of breath, fever, cough. On arrival, afebrile, vital signs are stable. On exam, nontoxic, well-appearing patient in no apparent distress. Heart regular rate and rhythm. Lung sounds were clear and equal bilaterally. Patient has tenderness to the right anterior lateral mid rib region. No crepitus, bruising, discoloration, edema was noted on exam. Patient declined any medication during Emergency Department course. Chest x-ray imaging, per radiologist was concerning as there were rib fractures, also concern for hemothorax. Labs and CT were ordered. Labs reveal no leukocytosis, anemia, electrolyte imbalance, renal impairment. CT of the chest imaging, per radiologist reveals three rib fractures, no evidence of hemothorax. Patient maintaining good vital signs during Emergency Department course. Multiple rib fractures as source of pain Hemothorax less likely based on imaging Pneumothorax less likely based on imaging Patient will be treated for his pain, given incentive spirometer, instructed follow-up. He is on work restrictions as with fractures of his ribs will inhibit his ability to perform his daily duties until he is cleared by follow-up. Disposition ? The patient was discharged. Plan: Patient will be discharged to home. Condition at time of disposition: stable ? Advised to follow up with referral provider, phone number to call for appointment placed on discharge instructions. Advised to return for any worsening and/or development of new, concerning signs or symptoms Lab Data Labs: Lab Results 08/29/23 Range/Units 15:00 WBC 6.4 (4.0-11.0) 10^3/uL RBC 4.31 L (4.70-6.10) 10^6/uL Hgb 14.3 (14.0-18.0) g/dL Hct 42.4 (42.0-54.0) % MCV 98.4 H (80.0-94.0) fL MCH 33.2 (25.9-34.0) pg MCHC 33.7 (29.9-35.2) g/dL RDW 13.9 (11.0-15.0) % Plt Count 152 (150-450) 10^3/uL MPV 10.3 (9.5-13.5) fL Neut % (Auto) 75.0 (43.0-75.0) % Lymph % (Auto) 12.1 L (20.5-60.0) % Campbell % (Auto) 9.0 (1.7-12.0) % Eos % (Auto) 3.1 (0.9-7.0) % Baso % (Auto) 0.3 (0.2-2.0) % Neut # (Auto) 4.8 (1.4-6.5) 10^3/uL Lymph # (Auto) 0.8 L (1.2-3.8) 10^3/uL Campbell # (Auto) 0.6 (0.3-0.8) 10^3/uL Eos # (Auto) 0.2 (0.0-0.7) 10^3/uL Baso # (Auto) 0.0 (0.0-0.1) 10^3/uL Abs Immat Gran (auto) 0.03 (0.00-0.03) 10^3/uL Imm/Tot Granulo (auto) 0.5 (0.0-0.5) % Sodium 139 (136-145) mmol/L Potassium 4.4 (3.5-5.1) mmol/L Chloride 103 (98-107) mmol/L Carbon Dioxide 29.2 (21.0-32.0) mmol/L Anion Gap 11.2 BUN 20.0 H (7.0-18.0) mg/dL Creatinine 1.24 (0.70-1.30) mg/dL Est GFR ( Amer) >60 (>=60) Est GFR (Non-Af Amer) 59 L (>=60) BUN/Creatinine Ratio 16.1 Glucose 140 H (74-106) mg/dL Calcium 8.9 (8.5-10.1) mg/dL Imaging Data Chest x-ray: Radiologist's impression: ITS Impressions Chest CT 08/29/23 14:33 IMPRESSION: 1. There are acute nondisplaced fractures present on the right involving the fifth seventh ribs. The radiographic findings earlier on today's date related to numerous healed right-sided rib fractures which are present anteriorly laterally. There is no associated pleural effusion/hemothorax or pneumothorax. 2. A TIPS stent is in place with cirrhotic liver morphology. There is markedly heterogeneous appearance of the right hepatic lobe with numerous areas of increased and decreased density which is not assessed in diagnostic detail on this chest study. No prior cross-sectional imaging of the abdomen is available for correlation. Given apparent history of cirrhosis, hepatocellular carcinoma or metastatic disease is primary differential consideration and designated imaging of the abdomen is recommended. Liver laceration is unlikely given lack of pulmonary contusion or perihepatic ascites. The TIPS stent does appear to be patent although CT can be insensitive in this regard. Electronically authenticated by: ERIC PADILLA Date: 08/29/2023 16:16 Discharge Plan Discharge Chief Complaint: Chest Pain Clinical Impression: Acute chest wall pain Fracture, ribs Qualifiers: Encounter type: initial encounter Fracture type: closed Laterality: right Qualified Code(s): S22.41XA - Multiple fractures of ribs, right side, initial encounter for closed fracture Patient Disposition: Home, Self-Care Time of Disposition Decision: 16:34 Condition: Good Prescriptions / Home Meds: New hydrocodone-acetaminophen 5-325 mg tablet 1 tab PO Q4H PRN (Reason: pain) 3 Days Qty: 8 0RF No Action carvedilol 6.25 mg tablet 6.25 mg PO DAILY furosemide 20 mg tablet 20 mg PO DAILY glimepiride 4 mg tablet 4 mg PO DAILY potassium chloride [Klor-Con M20] 20 mEq tablet,ER particles/crystals 20 meq PO DAILY spironolactone 25 mg tablet 25 mg PO QID Instructions: Rib Fracture (ED) Stand Alone Forms: Portal Instructions Referrals: Desmond Muñoz MD [Primary Care Provider] - 1 week Discharge Date/Time: 08/29/23 17:12
== END 2023-08-29 17:12 | disposition home or self-care (01) ==
PROVIDERS: Emergency Provider Emergency Medicine; PCP Family Medicine
DX: S22.41XA Multiple fractures of ribs, right side, initial encounter for closed fracture (principal); R07.89 Other chest pain; W01.10XA Fall on same level from slipping, tripping and stumbling with subsequent striking against unspecified object, initial encounter
CPT/HCPCS: 36415; 71101; 71260; 80048; 85025; 94667; 99285; Q9967

== ENCOUNTER 2024-04-17 10:28 | Outpatient (OUT) | payer OTHER, SELFPAY ==
--- NOTE | 2024-04-17 10:49 | XR_ITS ---
The [address] [address] Patient Name: JAZMYNE PENN MRN: [id number] date: 1955 Sex: M Assigned Patient Location: LAB Current Patient Location: LAB Accession/Order Number: [id number] Exam Date: 04/17/2024 10:55 Report Date: 04/17/2024 21:59 At the request of: PEGGY NEIL Procedure: XR chest 2V EXAM: XR chest 2V HISTORY: Dyspnea R06.00 COMPARISON: 04/30/2023 TECHNIQUE: Upright PA and lateral chest x-ray FINDINGS: The heart is not enlarged and the vasculature is not distended. No acute infiltrate, effusion or pneumothorax is identified. The osseous structures are grossly intact. XR/XR chest 2V IMPRESSION: No acute infiltrate or evidence of cardiac decompensation. The overall appearance of the chest is otherwise unchanged. Electronically authenticated by: FLAQUITA ROMERO Date: 04/17/2024 21:59
--- OUTSIDE RECORDS SUMMARY | 2024-04-17 10:49 | XMS_ITS | CCD ---
Author Organization [facility] Care Team Providers Care Oceanology Teacher Name Role Phone RASHAAD, DR WOODS Admitting Unavailable HOY, DR WOODS Attending Unavailable HOY, DR WOODS Primary Care Unavailable HOY, DR WOODS Admitting Unavailable HOY, DR WOODS Attending Unavailable HOY, DR WOODS Primary Care Unavailable HOY, DR WOODS Admitting Unavailable HOY, DR WOODS Attending Unavailable HOY, DR WOODS Primary Care Unavailable HOY, DR WOODS Consulting Unavailable Peggy Muñoz Primary Care Unavailable Alden You Attending UnavailAlden [...] Interpretation Reference Range Facility [place] 04-18-2023 Consent [id number] 8#1.00CD:127 [facility] In office Testingon 04-18-20 23 In office Testing [id number] 87#1.00CD:127 [facility] Registrationon 04-18-2023 Registration [id number] 817#1.00CD:127 [facility] In office Testingon 03-15-20 23 In office Testing [id number] 518#1.00CD:127 [facility] [place] 03-08-2023 Consent [id number] 428#1.00CD:127 [facility] Registrationon 03-08-2023 Registration [id number] 376#1.00CD:127 [facility] In office Testingon 02-06-20 23 In office Testing [id number] 58#1.00CD:127 [facility] [place] 02-04-2023 Consent [id number] 60#1.00CD:127 [facility] Registrationon 02-04-2023 Registration [id number] 54#1.00CD:127 [facility] Patient Correspondenceon Patient Correspondence [id number] F2#1.00CD:127 [facility] Physician Referralon 023 Physician Referral [id number] 0B#1.00CD:127 [facility] Physician Referral [id number] 6C#1.00CD:127 [facility] [place] 11-09-2022 Consent [id number] 990#1.00CD:127 [facility] In office Testingon 11-10-19 23 In office Testing [id number] 0270#1.00CD:127 [facility] Registrationon 11-09-2022 Registration [id number] 388#1.00CD:127 [facility] [place] 07-27-2022 Consent [id number] 47#1.00CD:127 [facility] Registrationon 07-27-2022 Registration [id number] 98#1.00CD:127 [facility] [place] 07-09-2022 Consent [id number] 446#1.00CD:127 [facility] In office Testingon 07-09-20 22 In office Testing [id number] 803#1.00CD:127 [facility] Registrationon 07-09-2022 Registration [id number] 104#1.00CD:127 [facility] In office Testingon 07-06-20 22 In office Testing [id number] 851#1.00CD:127 Normal [facility] GLYCOHEMOGLOBIN A1Con 2021 ADA RECOMMENDATION SEE BELOW Normal [facility] Comment on above: Result Comment: ADA RECOMMENDED LIMIT 4.0 - 6.0 ADA THERAPEUTIC TARGET < 7.0 ACTION SUGGESTED > 7.0 Performed By: #### A 1C #### [facility] [address] [place] [address] Dr. Sandor Coffman Glucose [Mass/Vol] 140 mg/dL Normal [facility] Comment on above: Performed By: #### A 1C #### [facility] [address] [address] [address] Sandor Coffman HbA1c (Bld) [Mass fraction] 6.5 % Critically high 4.5-6.2 [facility] Comment on above: Performed By: #### A 1C #### [facility] [address] [place] [address] Dr. Sandor Coffman Registrationon 05-01-2022 Registration [id number] 929#1.00CD:127 Normal [facility] [place] 04-27-2022 Consent [id number] 0784#1.00CD:127 Normal [facility] HIP LEFT 1 OR 2 VWS WITH PEL VISon 08-27-2019 HIP LEFT 1 OR 2 VWS WITH PELVIS [facility] Department of Radiology [address] [place] [id number] Patient Name: JAZMYNE PENN : 1955 Sex: M Age: Race: White Pt. Location: Patient Status: Ordered Date: 08/27/2019 9:45:00 AM Completed Date: 08/27/2019 09:44 AM Requesting Provider: LIZET LOVELACE Attending Provider: Report Copy To: Signs & Symptoms: Z96.642 Presence of left artificial hip joint I10 History: [place] Comments: , Views (X-RAY, HIP): Radiologic Protocol [...] above. Electronically signed: David Sanford. Transcribed by: [email or web address], User Resident: Electronically Signed by: DAVID SANFORD @ 08/27/2019 01:52 PM Normal [facility] Comment on above: Order Comment: , Alex ws (X-RAY, HIP): Radiologic Protocol , Views (X-RAY, HIP): Radiologic Protocol , , , Ordering Provider - LIZET LOVELACE MD , HIP LEFT 1 OR 2 VWS WITH PEL VISon 11-21-2019 HIP LEFT 1 OR 2 VWS WITH PELVIS [facility] Department of Radiology [address] [place] [address] Patient Name: JAZMYNE PENN : 1955 Sex: M Age: Race: White Pt. Location: Patient Status: Ordered Date: 06/17/2019 3:35:00 PM Completed Date: 06/18/2019 10:30 AM Requesting Provider: LIZET LOVELACE Attending Provider: Report Copy To: Signs & Symptoms: Z96.642 Presence of left artificial hip joint I10 History: [place] Comments: , Views (X-RAY, HIP): Radiologic Protocol [...] loosening Electronically signed by:Carlos Cameron. Transcribed by: [email or web address], User Resident: Electronically Signed by: CARLOS CAMERON @ 06/18/2019 02:11 PM Normal [facility] Comment on above: Order Comment: , Vie ws (X-RAY, HIP): Radiologic Protocol , Views [...] Start: 06-15-2022 End: 06-16-2022 ambulatory Nat Petr TREVOR [facility] Start: 04-27-2022 End: 04-28-2022 ambulatory Truman FUNES [facility] Start: 12-22-[address] PEGGY MUÑOZ Facility :[facility] Start: 10-03-[address] PEGGY MUÑOZ Facility :[facility] Start: 08-04-2019 End: 08-04-2019 ambulatory Peggy Muñoz Facility:[facility] Payers Date Payer Category Payer Unknown [id number] 1957 Self-pay 1955 Unknown [id number] 1955 Unknown [id number] 1955 Unknown [id number] 1955 Unknown [id number] Medicare [id number] Private Health Insurance [employer] [id number] Unknown [id number] Unknown [id number] Worker's Compensation [employer] [facility] [id number] Social History Date Type Detail Facility Tobacco smoking stat [facility] Unknown if ever smoked [facility] Work Phone: Start: 1955 Sex Assigned At Male F [facility] Evaluation note Note Date & Type Note Facility Evaluation note No assessment information availa ble [facility] Work Phone: Summary Purpose Family History [...] and content) DATE CREATED AUTHOR 06/17/2020 [facility] DATE CREATED AUTHOR AUTHOR'S ORGANIZ ATION 07/07/2022 [facility] DATE CREATED AUTHOR AUTHOR'S ORGANIZ ATION 03/30/2023 [facility] DATE CREATED AUTHOR AUTHOR'S ORGANIZ ATION 04/20/2023 [facility] Goals (unrecognized section and content) Goals may [...] BE BASED ON THE PRIMARY CLINICAL RECORDS. [facility] [employer] provides no warranty or guarantee of the accuracy or completeness of information in this document.
[2024-04-17 10:54] LABS: Basophils Percent Auto 0.5 % (0.2-2.0); Eosinophils Absolute Auto 0.3 10^3/uL (0.0-0.7); Eosinophils Percent Auto 5.8 % (0.9-7.0); Hemoglobin 13.9 g/dL (14.0-18.0); Immature Granulocytes Abs Auto 0.01 10^3/uL (0.00-0.03); Immature Granulocytes Pct Auto 0.2 % (0.0-0.5); Lymphocytes Absolute Auto 0.8 10^3/uL (1.2-3.8); Lymphocytes Percent Auto 13.4 % (20.5-60.0); Mean Corpuscular HGB Conc 33.9 g/dL (29.9-35.2); Mean Corpuscular Hemoglobin 33.5 pg (25.9-34.0); Mean Corpuscular Volume 98.8 fL (80.0-94.0); Mean Platelet Volume 9.7 fL (9.5-13.5); Monocytes Absolute Auto 0.5 10^3/uL (0.3-0.8); Monocytes Percent Auto 9.2 % (1.7-12.0); Neutrophils Percent Auto 70.9 % (43.0-75.0); Platelet Count 157 10^3/uL (150-450); Red Blood Count 4.15 10^6/uL (4.70-6.10); White Blood Count 5.7 10^3/uL (4.0-11.0)
[2024-04-17 11:26] LABS: Estimated Average Glucose 117 mg/dL; Glycohemoglobin A1C 5.7 % (4.5-6.2)
[2024-04-17 11:52] LABS: Alanine Aminotransferase 51 U/L (16-63); Albumin Globulin Ratio 0.5; Albumin Level 2.3 g/dL (3.4-5.0); Alkaline Phosphatase 251 U/L (46-116); Anion Gap 9.4; Aspartate Amino Transferase 76 U/L (15-37); BUN Creatinine Ratio 13.7; Calcium 8.9 mg/dL (8.5-10.1); Carbon Dioxide 28.6 mmol/L (21.0-32.0); Chloride 101 mmol/L (98-107); Chol HDL Ratio 5.6; Cholesterol 222 mg/dL (<=200); Estimated GFR (African America >60 (>=60); Estimated GFR (Non-African Ame 55 (>=60); Free T3 2.34 pg/mL (2.18-3.98); Globulin 4.3 g/dL; Glucose 116 mg/dL (74-106); HDL Cholesterol 40 mg/dL (40-60); Sodium 134 mmol/L (136-145); Thyroid Stimulating Hormone 1.169 uIU/mL (0.358-3.740); Total Protein 6.6 g/dL (6.4-8.2); Triglycerides 100 mg/dL (<=150)
[2024-04-17 12:03] LABS: Prostate Specific Antigen Dx <0.13 ng/mL (<=4.00)
== END 2024-04-17 10:29 | disposition home or self-care (01) ==
LOC: LAB 10:33
PROVIDERS: PCP Family Medicine; Visit Provider Family Medicine
DX: R06.00 Dyspnea, unspecified (principal); M17.10 Unilateral primary osteoarthritis, unspecified knee; E11.9 Type 2 diabetes mellitus without complications; I10 Essential (primary) hypertension
CPT/HCPCS: 36415; 71046; 80053; 80061; 83036; 83880; 84153; 84436; 84443; 84481; 85025

== ENCOUNTER 2024-04-24 08:33 | Outpatient (OUT) | payer MEDICARE, OTHER, SELFPAY ==
--- NOTE | 2024-04-24 | PCN_ITS ---
CARDIAC STRESS TEST Requesting Physician: Procedure Date: 04/24/2024 LEXISCAN STRESS TEST INDICATION: Dyspnea. Resting heart rate: 74 beats per minute Resting blood pressure: 126/70 mm/Hg. Lexiscan 0.4 mg was injected intravenously and the patient was monitored. Peak heart rate 85 beats per minute, peak blood pressure 126/70 mm/Hg. The heart rate represents 55% of estimated maximal heart rate. Resting EKG showed normal sinus rhythm, heart rate 74 beats per minute, normal EKG. There were no significant T or ST changes throughout the duration of the test. The patient did not experience any chest pain or shortness of breath during the test. CONCLUSIONS: 1. Negative Lexiscan EKG stress test for evidence of ischemia. 2. The myocardial perfusion images will be reported separately by Radiology. [facility]
--- NOTE | 2024-04-24 08:30 | NM_ITS ---
Patient Name: JAZMYNE PENN MR#: [id number] : 1955 Exam Date: 04/24/2024 Ordering Doctor: DR Desmond Muñoz . RADIOLOGY REPORT PROCEDURE: NM ALESHIA PERF SPECT REST STR COMPARISON: NM ALESHIA PERF SPECT REST STR, 06/24/2023. INDICATIONS: DYSPNEA, DIABETES, HYPERTENSION TECHNIQUE: Exam Description: Stress/Rest two day protocol gated SPECT Rest Imagin.5 mCi Tc-99m Cardiolite IV on 04/24/2024 Stress Imaging 26.1 mCi Tc-99m Cardiolite IV on 04/27/2024 Exercise Protocol: 0.4 mg Lexiscan given IV Heart Rate (bpm): Rest: 74 Max: 85 PMHR: 55 Blood Pressure: Rest: 126/70 Max: 126/70 Symptoms: Rest and peak stress ECG findings were normal and the exercise portion of the study was normal per attending physician Dr. Burton . For more details please see separate cardiac stress test report. FINDINGS: QUALITY OF STUDY: Excellent. PERFUSION DEFECT: LOCATION: Mid-anteroseptal. Mid-inferolateral. SIZE: Small (1-2 segments). SEVERITY: Mild. TYPE: Persistent. WALL MOTION: Normal. LV SIZE: Enlarged; EDV 138 mL. TID / TCD: None; 1.0 LVEF: Normal. Calculated EF 61%. SUMMARY: Myocardial perfusion imaging study has ABNORMAL findings. CONCLUSION: 1. No acute or reversible ischemia. 2. Small area of fixed ischemia involving the inferior lateral wall. 3. Small area of fixed ischemia involving the anterior septal wall. 4. Mild ventriculomegaly. 5. Normal ejection fraction and wall motion. Dictated by: Ronald Davis M.D. on 04/27/2024 at 16:15 Approved by: Ronlad Davis M.D. on 04/27/2024 at 16:21
--- OUTSIDE RECORDS SUMMARY | 2024-04-24 08:36 | XMS_ITS | CCD ---
Author Organization [facility] Informat ion Partnership [facility] Care Team Providers Care Refurbish Technician Name Role Phone RASHAAD, DR WOODS Admitting [...] Interpretation Reference Range [facility] 04-18-2023 Consent [id number] 8#1.00CD:127 [facility] In office Testingon 04-18-20 23 In office Testing [id number] 87#1.00CD:127 [facility] Registrationon 04-18-2023 Registration [id number] 817#1.00CD:127 [facility] In office Testingon 03-15-20 23 In office Testing [id number] 518#1.00CD:127 [facility] 03-08-2023 Consent [id number] 428#1.00CD:127 [facility] Registrationon 03-08-2023 Registration [id number] 376#1.00CD:127 [facility] In office Testingon 02-06-20 23 In office Testing [id number] 58#1.00CD:127 [facility] [place] 02-04-2023 Consent [id number] 60#1.00CD:127 [facility] Registrationon 02-04-2023 Registration [id number] 54#1.00CD:127 [facility] Patient Correspondenceon Patient Correspondence [id number] F2#1.00CD:127 [facility] Physician Referralon 023 Physician Referral [id number] 0B#1.00CD:127 [facility] Physician Referral 104.170.192. [id number] 6C#1.00CD:127 [facility] [place] 11-09-2022 Consent [id number] 990#1.00CD:127 [facility] In office Testingon 11-10-19 23 In office Testing [id number] 0270#1.00CD:127 [facility] Registrationon 11-09-2022 Registration [id number] 388#1.00CD:127 [facility] [place] 07-27-2022 Consent [id number] 47#1.00CD:127 [facility] Registrationon 07-27-2022 Registration [id number] 98#1.00CD:127 [facility] [place] 07-09-2022 Consent [id number] 446#1.00CD:127 [facility] In office Testingon 07-09-20 22 In office Testing [id number] 803#1.00CD:127 [facility] Registrationon 07-09-2022 Registration [id number] 104#1.00CD:127 [facility] In office Testingon 07-06-20 22 In office Testing [id number] 851#1.00CD:127 Normal [facility] GLYCOHEMOGLOBIN A1Con 2021 ADA RECOMMENDATION SEE BELOW Normal [facility] Comment on above: Result Comment: ADA RECOMMENDED LIMIT 4.0 - 6.0 ADA THERAPEUTIC TARGET < 7.0 ACTION SUGGESTED > 7.0 Performed By: #### A 1C #### [facility] [address] [place] [address] Dr. Sandor Coffman Glucose [Mass/Vol] 140 mg/dL Normal [facility] Comment on above: Performed By: #### A 1C #### [facility] [address] [address] [address] Sandor Coffman HbA1c (Bld) [Mass fraction] 6.5 % Critically high 4.5-6.2 [facility] Comment on above: Performed By: #### A 1C #### [facility] [address] [place] [address] Dr. Sandor Coffman Registrationon 05-01-2022 Registration [id number] 929#1.00CD:127 Normal [facility] [place] 04-27-2022 Consent [id number] 0784#1.00CD:127 Normal [facility] HIP LEFT 1 OR 2 VWS WITH PEL VISon 08-27-2019 HIP LEFT 1 OR [address] [facility] Department of Radiology [address] [place] [id number] Patient Name: JAZMYNE PENN : 1955 Sex: M Age: Race: White Pt. Location: Patient Status: Ordered Date: 08/27/2019 9:45:00 AM Completed Date: 08/27/2019 09:44 AM Requesting Provider: LIZET LOVELACE Attending Provider: Report Copy To: Signs & Symptoms: Z96.642 Presence of left artificial hip joint I10 History: [place] Comments: , Views (X-RAY, HIP): Radiologic Protocol [...] chronic findings as above. Electronically signed: David Sanfrod. Transcribed by: [email or web address], User Resident: Electronically Signed by: DAVID SANFORD @ 08/27/2019 01:[address] [facility] Comment on above: Order Comment: , Alex ws (X-RAY, HIP): Radiologic Protocol , Views (X-RAY, HIP): Radiologic Protocol , , , Ordering Provider - LIZET LOVELACE MD , HIP LEFT 1 OR 2 VWS WITH PEL VISon 11-21-2019 HIP LEFT 1 OR [address] [facility] Department of Radiology [address] [place] [address] Patient Name: JAZMYNE PENN : [...] loosening Electronically signed by:Carlos Cameron. Transcribed by: [email or web address], User Resident: Electronically Signed by: CARLOS CAMERON @ 06/18/2019 02:[address] [facility] Comment on above: Order Comment: , Vie [...] Start: 08-04-2019 End: 08-04-2019 ambulatory Peggy Muñoz Facility:[facility] Payers Date Payer Category Payer Unknown [id number] Self-pay 1955 Unknown [id number] 1955 Unknown [id number] 1955 Unknown [id number] 1955 Unknown [id number] Medicare [id number] Private Health Insurance [employer] [id number] Unknown [id number] Unknown [id number] Worker's Compensation [employer] [facility] [id number] Social History Date Type Detail Facility Tobacco smoking stat [facility] Unknown if ever smoked [facility] Work Phone: Start: 1955 Sex Assigned At Male F [facility] Evaluation note Note Date & Type Note Facility Evaluation note No assessment information availa ble [facility] Work Phone: Summary Purpose Family History [...] and content) DATE CREATED AUTHOR 06/17/2020 [facility] DATE CREATED AUTHOR AUTHOR'S ORGANIZ ATION 07/07/2022 [facility] DATE CREATED AUTHOR AUTHOR'S ORGANIZ ATION 03/30/2023 [facility] DATE CREATED AUTHOR AUTHOR'S ORGANIZ ATION 04/20/2023 [facility] Goals (unrecognized section and content) Goals may [...] BE BASED ON THE PRIMARY CLINICAL RECORDS. [facility] [employer] provides no warranty or guarantee of the accuracy or completeness of information in this document.
--- NOTE | 2024-04-24 09:19 | PC.NURSE ---
Nursing Note Cardiac Stress Test Reviewed: Medication, allergies and patient history reviewed. Stress Test: [ x] Patient tolerated stress test well. [ x] Patient unable to tolerate walking on treadmill. Switched to Lexiscan stress test. [x ] No chest pain noted per patient [ ] Chest pain that resolved prior to leaving stress lab. [x] No dyspnea noted. [ ] Dyspnea that resolved prior to leaving stress lab. [ x] Patient left stress lab asymptomatic and hemodynamically stable. [ ] Patient taken to the Emergency Room due to non-resolving symptoms following stress test. [ ] Patient achieved target heart rate. [ ] Patient unable to achieve target heart rate. [ ] Aminophylline administered as reversal agent to Lexiscan (Regadenoson). [ ] Nitro administered. Nursing Comments:Pt was scheduled for cardiolite but was switched to Lexiscan due to inability to walk on TM safely to perform test. Pt has been switched to Lexiscan in the past due to this also. Pt tolerated lexiscan well with no issues. Pt left stress lab with no issues or complaints.
[2024-04-24] MEDS: REGADENOSON 0.4 MG/5 ML SYRINGE IV (09:28)
--- NOTE | 2024-04-24 10:37 | XR_ITS ---
The [address] [address] Patient Name: JAZMYNE PENN MRN: [id number] date: 1955 Sex: M Assigned Patient Location: [place] Current Patient Location: Accession/Order Number: [id number] Exam Date: 04/24/2024 10:42 Report Date: 04/25/2024 06:01 At the request of: PEGGY NEIL Procedure: XR chest 2V EXAMINATION: XR chest 2V HISTORY: Dyspnea COMPARISON: XR chest 04/17/2024, XR ribs with chest 08/29/2023, XR chest 05/27/2023 FINDINGS: LUNGS: Mild haziness and stranding within lung bases. VASCULATURE: No increased pulmonary vasculature. PLEURA: Persistent pleural thickening along lateral right mid chest wall at site of prior rib fractures. CARDIAC: No cardiomegaly or cardiac silhouette abnormality. MEDIASTINUM: No visible mass or adenopathy. BONES: Old lateral right rib fractures. OTHER: Negative. XR/XR chest 2V IMPRESSION: 1. Underexpanded lungs with mild bibasilar atelectasis versus infiltrates; new compared to prior studies. 2. Old right rib fractures and persistent lateral right pleural thickening. Electronically authenticated by: ARIEL SIDHU Date: 04/25/2024 06:01
== END 2024-04-24 08:34 | disposition home or self-care (01) ==
LOC: NM 08:33
PROVIDERS: PCP Family Medicine; Visit Provider Family Medicine
DX: R06.00 Dyspnea, unspecified (principal); M17.10 Unilateral primary osteoarthritis, unspecified knee; E11.9 Type 2 diabetes mellitus without complications; I10 Essential (primary) hypertension
CPT/HCPCS: 71046; 78452; 93017; A9500; J2785

== ENCOUNTER 2024-04-27 08:28 | Outpatient (OUT) | payer OTHER, SELFPAY | END 2024-04-27 08:29 | disposition home or self-care (01) | LOC: NM 08:28 | PROVIDERS: PCP Family Medicine; Visit Provider Family Medicine | DX: R06.00 Dyspnea, unspecified (principal); M17.10 Unilateral primary osteoarthritis, unspecified knee; E11.9 Type 2 diabetes mellitus without complications; I10 Essential (primary) hypertension ==

== ENCOUNTER 2024-05-08 10:17 | Outpatient (OUT) | payer OTHER, SELFPAY ==
--- OUTSIDE RECORDS SUMMARY | 2024-05-08 10:37 | XMS_ITS | CCD ---
Author Organization [facility] Informat ion Partnership [facility] Care Team Providers Care Casino Floor Person Name Role Phone RASHAAD, DR WOODS Admitting [...] MURRAY Attending Unavailable Nat MURRAY Admitting Unavailable TAJ OTERO Attending Unavailable TAJ OTERO Referring Unavailable Medications Current Medications Medication Drug Class(es) [...] Twice daily June 09, 2019 1:00am Problems Problem Classification Problem Date Documented Date Episodic/Chronic Deficiency and other anemia (1 source) Pancytopenia; Translations: [Other pancytopenia] 06-09-2019 Chronic Diabetes mellitus without complication (4 sources) Type 2 diabetes mellitus without complications; Translations: [TYPE 2 DM WITHOUT COMPLICATIONS] Onset: 07-02-2022 Chronic Disorders of lipid metabolism (2 sources) Mixed hyperlipidemia; Translations: [Mixed hyperlipidemia] Onset: 04-29-2024 Chronic Essential hypertension (2 sources) Essential (primary) hypertension; Translations: [Essential (primary) hypertension] Onset: 04-29-2024 Chronic Hepatitis (1 source) Cirrhosis - non-alcoholic; Translations: [Nonalcoholic steatohepatitis (VELOZ)] 06-09-2019 Chronic Other liver diseases (1 source) Unspecified cirrhosis of liver; Translations: [K74.60 - Unspecified cirrhosis of liver] Onset: 08-04-2019 Chronic Other lower respiratory disease (2 sources) Shortness of breath; Translations: [Shortness of breath] Onset: 04-29-2024 Episodic Other screening for suspected conditions (not mental disorders or infectious disease) (3 sources) Abnormal findings on diagnostic imaging of other abdominal regions, including retroperitoneum; Translations: [Abnormal result of other cardiovascular function study] Onset: 08-04-2019 Episodic Unclassified (1 source) 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; Translations: [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] Onset: 08-04-2019 Results Test Name Value Interpretation Reference Range Facility Orders Onlyon 05-04-2024 Orders Only [id number] Jazmyne Penn 1955 M Date Provider Department [facility] 05/04/2024 ERMA JUNE [facility] Family History Problem Relation Age of Onset Colon cancer Mother Coronary artery disease Father Cancer Brother Family Status - Relation Status Age at Mother Father Brother Normal [facility] CREATININE, SERUMon 05-01-20 24 Creatinine [Mass/Vol] 1.45 mg/dL High 0.70-1.30 [facility] Comment on above: Performed By: #### L [id number] #### [facility] ([facility] [address] [place] [address] GLOMERULAR FILTRATION RATE ML/MIN/1.73 SQ M.PREDICTED 53.1 mL/min/1.73m*2 Low >60.0 [facility] Comment on above: Result Comment: [facility]???s estimated glomerular filtration rate (eGFR) will no longer include consideration of race in its calculation. The National Kidney Foundation???s eGFR Task Force developed new recommendations for the estimation of the glomerular filtration rate in the [place] They recommend immediate implementation of the new equation refit without the race variable in all laboratories because the calculation does not include race. In addition to not including race in the calculation and reporting, it included diversity in its development, and has acceptable performance characteristics and potential consequences that do not disproportionately affect any one group of individuals. Performed By: #### L [id number] #### [facility] ([facility] [address] [place] [address] CTA HEART CORONARY W IV CONT Luh 05-01-2024 CTA HEART CORONARY W IV CONTRAST [facility] HEART CORONARY W IV CONTRAST 05/01/2024 1:21 PM CLINICAL INDICATIONS: Abnormal cardiovascular stress test. Shortness of breath. TECHNOLOGIST COMMENTS: Shortness of breath QUESTION FOR RADIOLOGIST: Evaluate possibility of coronary artery stenosis PROTOCOL: Gated cardiac CTA CONTRAST: 100 mL Omnipaque 350 TECHNIQUE: Multidetector CT angiogram was obtained using retrospective ECG gating. Imaging was performed from the level of the clavicles to the level of the hemidiaphragms. In order to provide better evaluation of the anatomy and disease process, advanced off-line 3-D post-processing techniques, including 3-D volume rendered images, curvilinear analysis of the coronary arteries and stenosis calculation were performed. Medication administered in preparation for the examination is located in nursing documentation. All CT scans at this facility use dose modulation, iterative reconstruction, and/or weight based dosing when appropriate to reduce radiation dose to as low as reasonably achievable COMPARISON: None. CORONARY ARTERY ANGIOGRAM FINDINGS: Stenoses are reported as maximum percentage diameter stenosis. Stenosis grading is reported using the following scheme: Normal: no stenosis Mild: 1-49% stenosis Moderate: 50-70% stenosis Severe: >70% stenosis Occluded Dominance of the coronary artery system: right with normal origins and course. Left Main: The left main is a normal caliber vessel which gives rise to the LAD and circumflex arteries The left main with calcified plaque. There is moderate stenosis at the calcified plaque of around 50%. Left Anterior Descending Artery: The proximal left anterior descending artery and first diagonal branch with calcified plaque. The mid-distal LAD, D2 and D3 branches with calcified plaque. There is a no evidence of myocardial bridge in the LAD segment. There is mild stenosis of around 40% in the proximal and mid LAD at the areas of calcified plaques Left Circumflex Artery: The left circumflex artery and its obtuse marginal branches with significant plaque. There is severe stenosis in the left circumflex due to the significant calcified plaques of more than 70% Right Coronary Artery: The right coronary artery and acute marginal branches with mild calcified plaque. There is mild stenosis in the proximal RCA less than 20% Cardiac Morphology: The right atrium is normal. The right ventricle is normal. The left atrium is normal. The left ventricle is normal. . The pericardium is normal and there is no pericardial effusion. Cardiac Function: {reported only if retrospective ECG gating has been used} The left ventricular ejection fraction is normal and more than 50%, There is normal wall motion of the left ventricle. Cardiac Devices and Indwelling Central Venous Lines: No central lines or pacer devices. However, part of TIPS shunt is visualized in the liver EXTRACARDIAC FINDINGS: Other lung findings: Visualized part of the lungs appear unremarkable Airway: Normal. Pleura: No pleural effusion, thickening, or pneumothorax. Thoracic aorta and great vessels: Normal in diameter. Pulmonary arteries: Normal. Heart and pericardium: Normal. Lymph nodes: No enlarged thoracic lymph nodes. Thoracic spine: Bony spurring in the thoracic spine suggesting spondylosis. No acute bony abnormality. Chest wall: Normal. Visualized upper abdomen: Unremarkable except for part of TIPS shunt visualized. IMPRESSION: 1. Abnormal coronary CTA with . Calcified plaques with mild stenosis in the proximal RCA, moderate stenosis in the left main and LAD with severe stenosis suspected in the left circumflex 2. Normal global and regional wall motion and function of the LV. 3. Thoracic spondylosis. 4. TIPS shunt in the liver. Electronically signed: Tera Condon MD. Not Vldtd Invalid Interpretation Code [facility] Labon 05-01-2024 Lab [id number] Jazmyne Penn 1955 M [facility] Provider Department Center 05/01/2024 2245-[facility] RESOURCE [facility] Family History Problem Relation Age of Onset Colon cancer Mother Coronary artery disease Father Cancer Brother Family Status - Relation Status Age at Mother Father Brother Normal [facility] Office Visiton 04-29-2024 Follow-up visit [id number] Jazmyne Penn 1955 M Date Provider Department Center 04/29/2024 367-TAJ OTERO [facility] Family History Problem Relation Age of Onset Colon cancer Mother Coronary artery disease Father Cancer Brother Family Status - Relation Status Age at Mother Father Brother Level of Service:02823 NM OFFICE/OP CONSLTJ NEW/EST PT MOD MDM 40 MINUTES Normal [facility] [place] 04-18-2023 Consent [id number] 42 [id number]#1.00 CD:127 Normal [facility] In office Testingon 04-18-20 23 In office Testing [id number] 42 [id number]#1.0 0CD:127 Normal [facility] Registrationon 04-18-2023 Registration [id number] 04 [id number]#1. 00CD:127 Normal [facility] In office Testingon 03-15-20 23 In office Testing [id number] 05 [id number]#1. 00CD:127 Normal [facility] [place] 03-08-2023 Consent [id number] 05 [id number]#1. 00CD:127 Normal [facility] Registrationon 03-08-2023 Registration [id number] 05 [id number]#1. 00CD:127 [facility] In office Testingon 02-06-20 23 In office Testing [id number] 21 [id number]#1.0 0CD:127 Normal [facility] [place] 02-04-2023 Consent [id number] 11 [id number]#1.0 0CD:127 Normal [facility] Registrationon 02-04-2023 Registration [id number] 11 [id number]#1.0 0CD:127 [facility] Patient Correspondenceon Patient Correspondence [id number]#1.0 0CD:127 Normal [facility] Physician Referralon 023 Physician Referral [id number] 60 [id number]#1.0 0CD:127 Normal [facility] Physician Referral [id number]#1.0 0CD:127 [facility] [place] 11-09-2022 Consent [id number] 05 [id number]#1. 00CD:127 [facility] In office Testingon 11-10-19 23 In office Testing [id number] 40 [id number]#1 .00CD:127 [facility] Registrationon 11-09-2022 Registration [id number] 05 [id number]#1. 00CD:127 [facility] [place] 07-27-2022 Consent [id number] 05 [id number]#1.0 0CD:127 [facility] Registrationon 07-27-2022 Registration [id number] 05 [id number]#1.0 0CD:127 [facility] [place] 07-09-2022 Consent [id number] 01 [id number]#1. 00CD:127 [facility] In office Testingon 07-09-20 22 In office Testing [id number] 01 [id number]#1. 00CD:127 [facility] Registrationon 07-09-2022 Registration [id number] 01 [id number]#1. 00CD:127 [facility] In office Testingon 07-06-20 22 In office Testing [id number] 05 [id number]#1. 00CD:127 [facility] GLYCOHEMOGLOBIN A1Con 2021 ADA RECOMMENDATION SEE BELOW Normal [facility] Comment on above: Result Comment: ADA RECOMMENDED LIMIT 4.0 - 6.0 ADA THERAPEUTIC TARGET < 7.0 ACTION SUGGESTED > 7.0 Performed By: #### A 1C #### [facility] [address] [address] [address] Sandor Coffman Glucose [Mass/Vol] 140 mg/dL Normal [facility] Comment on above: Performed By: #### A 1C #### [facility] [address] [address] [address] Sandor Coffman HbA1c (Bld) [Mass fraction] 6.5 % Critically high 4.5-6.2 [facility] Comment on above: Performed By: #### A 1C #### [facility] [address] [address] [address] Sandor Coffman Registrationon 05-01-2022 Registration [id number] 02 [id number]#1. 00CD:127 Normal [facility] [place] 04-27-2022 Consent [id number] 90 [id number]#1 .00CD:127 Normal [facility] HIP LEFT 1 OR 2 VWS WITH PEL VISon 08-27-2019 HIP LEFT 1 OR 2 VWS WITH PELVIS [facility] Department of Radiology [address] [place] [id number] ======== Patient Name: JAZMYNE PENN : 1955 Sex: [...] , , , Ordering Provider - LIZET HARLEYNA, MD , Exam: HIP LEFT 1 OR 2 VWS WITH PELVIS ======== HIP LEFT 1 OR 2 VWS WITH PELVIS 08/27/2019 9:44 AM SIGNS AND SYMPTOMS: Z96.642 Presence of left artificial hip joint I10 TECHNOLOGIST COMMENTS: Ortho check left hip March 2019. QUESTION FOR THE RADIOLOGIST: , Views (X-RAY, HIP): Radiologic Protocol , Views (X-RAY, HIP): Radiologic Protocol , , , Ordering Jose R - LIZET LOVELACE MD , PROTOCOL: AP(PA) and Lateral views were obtained. COMPARISON: 06/18/2019 FINDINGS: Left total hip in satisfactory alignment. Persistent lucency between the proximal orthopedic prosthesis bone interface may reflect ReVision, prior infection, or loosening. Degenerative changes right hip. Pelvic alignment satisfactory IMPRESSION: 1. No change in alignment with the chronic findings as above. Electronically signed: David Sanford. Transcribed by: [email or web address], User Resident: Electronically Signed by: DAVID SANFORD @ 08/27/2019 01:52 PM Normal [facility] Comment on above: Order Comment: , Alex ws (X-RAY, HIP): Radiologic Protocol , Views (X-RAY, HIP): Radiologic Protocol , , , Ordering Provider - LIZET LOVELACE MD , HIP LEFT 1 OR 2 VWS WITH PEL VISon 06-18-2019 HIP LEFT 1 OR 2 VWS WITH PELVIS [facility] Department of Radiology [address] [place] [id number] ======== Patient Name: JAZMYNE PENN : 1955 Sex: [...] LEFT 1 OR 2 VWS WITH PELVIS ======== HIP LEFT 1 OR 2 VWS WITH [...] loosening Electronically signed by:Carlos Cameron. Transcribed by: [email or web address], User Resident: Electronically Signed by: CARLOS CAMERON @ 06/18/2019 02:11 PM Normal [facility] Comment on above: Order Comment: , Alex ws (X-RAY, HIP): Radiologic Protocol , Views (X-RAY, HIP): Radiologic Protocol , , , Ordering Provider - LIZET LOVELACE MD , Encounters Encounter Date Encounter Type Care Provider Facility Start: 05-01-2024 Encounter for other preprocedural examination [facility] Start: 05-01-2024 End: 05-01-2024 ambulatory [facility] Start: 04-29-2024 End: 04-29-2024 ambulatory [facility] Start: 04-18-2023 End: 04-19-2023 ambulatory Tuan Lira Facility[facility] Start: 03-08-2023 End: 03-09-2023 ambulatory Nat Petr TREVOR Facility:[facility] Start: 02-04-2023 End: 02-05-2023 ambulatory Nat Petr TREVOR [facility] Start: 01-10-2023 ambulatory Truman FUNES Facilit y:[facility] Start: 01-09-2023 ambulatory Truman FUNES Facilit y:[facility] Start: 11-09-2022 End: 11-10-2022 ambulatory Nat T TREVOR [facility] Start: [...] Facility :[facility] Start: 08-04-2019 End: 08-04-2019 ambulatory Peggypaulino Muñoz Facility:[facility] Payers Date Payer Category Payer Unknown [id number] 2019 Unknown [id number] 1957 Self-pay 1955 Unknown [id number] 1955 Unknown [id number] 1955 Unknown [id number] 1955 Unknown [id number] Medicare [id number] Private Health Insurance [employer] [id number] Unknown [id number] Unknown [id number] Worker's Compensation [employer] [id number] Social History Date Type Detail Facility [facility] Work Phone: Start: 1955 Sex Assigned At Male [facility] Progress note 04-29-2024 Note Date & Type Note Facility 04-29-2024 Note [facility] Subjective Jazmyne Penn is a 68 y.o. year old male patient being seen to establish care. Ref from Dr. Muñoz for abnormal stress test performed last week. This was ordered for worsening CASTELLANOS. He denies chest pain, palpitations, and lightheadedness/syncope. He takes carvedilol once daily, and spironolactone 4 times daily. Patient Active Problem List Diagnosis Acute posthemorrhagic anemia Anemia Ascites Basicervical fracture of neck of femur (CMS/HCC) Breakdown (mechanical) of internal fixation device of left femur, subsequent encounter Cognitive communication deficit Difficulty in walking, not elsewhere classified Dysphagia, oropharyngeal phase Encounter for other orthopedic aftercare Essential (primary) hypertension Hypotension Liver cirrhosis secondary to VELOZ (CMS/HCC) Morbid (severe) obesity due to excess calories (CMS/HCC) Muscle weakness (generalized) Obstructive sleep apnea (adult) (pediatric) Portal hypertension (CMS/HCC) Type 2 diabetes mellitus without complications (CMS/HCC) Unspecified fracture of left acetabulum, subsequent encounter for fracture with routine healing Unspecified osteoarthritis, unspecified site Family History Problem Relation Name Age of Onset Colon cancer Mother Coronary artery disease Father Cancer Brother Social History Tobacco Use Smoking status: Some Days Types: Cigars Smokeless tobacco: Never Substance Use Topics Alcohol use: Never HPI Austin is seen as a new patient referred from Dr. Muñoz's office due to abnormal stress test. he is a 68-year-old man with history of hypertension and hyperlipidemia, VELOZ related cirrhosis complicated by portal hypertension manifested by refractory ascites and bleeding esophageal varices status post TIPS on 12/01/12. there is history of prior anemia. He has significant obesity with elevated BMI at 45. He reports that he has been overweight all his life. He has been having recent shortness of breath on exertion over the past 2 months. A stress test was ordered to investigate and this showed 2 areas of fixed perfusion defects. Overall ventricular function was preserved. An echocardiogram in May 2023 showed mildly elevated right-sided pressures with normal ventricular and valvular function. He denies chest pain. He has no palpitation. He has no significant lower extremity edema. He is currently on treatment with carvedilol, furosemide and spironolactone. His recent lipid profile showed significant elevation of LDL. His blood pressure is not controlled. 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 Review of Systems Cardiovascular: Positive for dyspnea on exertion. Respiratory: Positive for wheezing. Musculoskeletal: Positive for joint pain. Objective Visit Vitals BP 154/80 (BP Location: Left arm, Patient Position: Sitting) Pulse 71 Ht 1.803 m (5' 11 ) Wt (!) 147 kg (325 lb) SpO2 99% BMI 45.33 kg/m??? Smoking Status Some Days BSA 2.71 m??? Physical Exam Constitutional: Appearance: He is well-developed. He is obese. He is not ill-appearing. HENT: Head: Normocephalic and atraumatic. Nose: Nose normal. Eyes: General: No scleral icterus. Pupils: Pupils are equal, round, and reactive to light. Neck: Thyroid: No thyromegaly. Vascular: No JVD. Cardiovascular: Rate and Rhythm: Normal rate and regular rhythm. Pulses: Radial pulses are 2+ on the right side and 2+ on the left side. Heart sounds: Normal heart sounds. No murmur heard. No friction rub. No gallop. Pulmonary: Effort: Pulmonary effort is normal. No respiratory distress. Breath sounds: Normal breath sounds. No wheezing or rales. Chest: Chest wall: No tenderness. Abdominal: General: Bowel sounds are normal. There is no distension. Palpations: Abdomen is soft. Tenderness: There is no abdominal tenderness. Musculoskeletal: General: No swelling. Cervical back: Neck supple. Skin: General: Skin is warm and dry. Neurological: General: No focal deficit present. Mental Status: He is alert and oriented to person, place, and time. Psychiatric: Mood and Affect: Mood normal. Behavior: Behavior is cooperative. Judgment: Judgment normal. Allergies No Known Allergies Medications Current Outpatient Medications: carvedilol (Coreg) 6.25 mg tablet, Take 6.25 mg by mouth once daily as directed., Disp: , Rfl: cyanocobalamin (Vitamin B-12) 500 mcg tablet, Take 500 mcg by mouth in the morning., Disp: , Rfl: ferrous sulfate 325 (65 Fe) MG tablet, Take 325 mg by mouth with breakfast, with lunch, and with evening meal., Disp: , Rfl: furosemide (Lasix) 20 mg tablet, Take 20 mg by mouth in the morning., Disp: , Rfl: glimepiride (Amaryl) 4 mg tablet, Take 4 mg by mouth before breakfast., Disp: , Rfl: potassium chloride CR (Klor-Con M20) 20 mEq E (more content not included)... [facility] Evaluation note Note Date & Type Note Facility Evaluation note No assessment information [facility] Work Phone: Summary Purpose Family History No [...] and content) DATE CREATED AUTHOR 06/17/2020 [facility] DATE CREATED AUTHOR AUTHOR'S ORGANIZ ATION 07/07/2022 [facility] DATE CREATED AUTHOR AUTHOR'S ORGANIZ ATION 03/30/2023 [facility] DATE CREATED AUTHOR AUTHOR'S ORGANIZ ATION 04/20/2023 [facility] DATE CREATED AUTHOR AUTHOR'S ORGANIZ ATION 05/06/2024 [facility] Goals (unrecognized section and content) Goals [...] BE BASED ON THE PRIMARY CLINICAL RECORDS. [facility]. provides no warranty or guarantee of the accuracy or completeness of information in this document.
[2024-05-08 10:55] LABS: Basophils Percent Auto 0.5 % (0.2-2.0); Eosinophils Absolute Auto 0.2 10^3/uL (0.0-0.7); Hematocrit 44.2 % (42.0-54.0); Hemoglobin 14.6 g/dL (14.0-18.0); Immature Granulocytes Abs Auto 0.03 10^3/uL (0.00-0.03); Immature Granulocytes Pct Auto 0.4 % (0.0-0.5); Lymphocytes Absolute Auto 1.2 10^3/uL (1.2-3.8); Mean Corpuscular Hemoglobin 32.6 pg (25.9-34.0); Mean Corpuscular Volume 98.7 fL (80.0-94.0); Mean Platelet Volume 10.2 fL (9.5-13.5); Monocytes Absolute Auto 0.8 10^3/uL (0.3-0.8); Monocytes Percent Auto 9.3 % (1.7-12.0); Neutrophils Absolute Auto 6.3 10^3/uL (1.4-6.5); Neutrophils Percent Auto 73.8 % (43.0-75.0); Platelet Count 181 10^3/uL (150-450); Red Blood Count 4.48 10^6/uL (4.70-6.10); Red Cell Distribution Width 14.5 % (11.0-15.0); White Blood Count 8.5 10^3/uL (4.0-11.0)
[2024-05-08 10:56] LABS: Anion Gap 12.9; BUN Creatinine Ratio 20.5; Calcium 9.9 mg/dL (8.5-10.1); Chloride 101 mmol/L (98-107); Estimated GFR (African America 52 (>=60 mL/min/1.73m^2); Estimated GFR (Non-African Ame 43 (>=60 mL/min/1.73m^2); Glucose 121 mg/dL (74-106); Potassium 4.9 mmol/L (3.5-5.1); Sodium 134 mmol/L (136-145)
== END 2024-05-08 10:18 | disposition home or self-care (01) ==
LOC: LAB 10:18
PROVIDERS: PCP Family Medicine; Visit Provider Internal Medicine Interventional Cardiology
DX: Z01.818 Encounter for other preprocedural examination (principal)
CPT/HCPCS: 36415; 80048; 85025

== ENCOUNTER 2024-07-08 12:36 | Outpatient (OUT) | payer OTHER, SELFPAY ==
--- OUTSIDE RECORDS SUMMARY | 2024-07-08 12:46 | XMS_ITS | CCD ---
Author Organization [facility] Informat ion Partnership [facility] Care Team Providers Care Cell Plasterer Name Role Phone RASHAAD, DR WOODS Admitting [...] FUNES Attending Unavailable Nat MURRAY Attending Unavailable uTan Lira Attending Unavailable Nat MURRAY Attending Unavailable Nat MURRAY Admitting Unavailable TAJ OTERO Admitting Unavailable TAJ OTERO Attending Unavailable TAJ OTERO Referring Unavailable MOTAJ JEROME Attending Unavailable TAJ OTERO Referring Unavailable Medications [...] of breath; Translations: [Shortness of breath] Onset: 05-05-2024 Episodic Other screening for suspected conditions (not mental disorders or infectious disease) (5 sources) Abnormal findings on diagnostic imaging of other abdominal regions, including retroperitoneum; Translations: [Abnormal findings on diagnostic imaging of heart and coronary circulation] Onset: 08-04-2019 Episodic Unclassified (1 source) 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; Translations: [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] Onset: 08-04-2019 Results Test Name Value Interpretation Reference Range Facility BASIC METABOLIC PANELon 04-28 Anion gap [Moles/Vol] 9 mmol/L Normal 7-20 [facility] Comment on above: Performed By: #### L AB15 #### [facility] ([facility]) [address] [place] [address] Calcium [Mass/Vol] 6.9 mg/dL Low 8.6-10.3 [facility] Comment on above: Performed By: #### L [id number] #### [facility] ([facility]) [address] [place] [address] Chloride [Moles/Vol] 110 mmol/L High 98-107 [facility] Comment on above: Performed By: #### L [id number] #### [facility] ([facility]) [address] [place] [address] CO2 [Moles/Vol] 22 mmol/L Normal 21-[address] [facility] Comment on above: Performed By: #### L [id number] #### [facility] ([facility]) [address] [place] [address] Creatinine [Mass/Vol] 1.04 mg/dL Normal 0.70-1.30 [facility] Comment on above: Performed By: #### L AB15 #### [facility] ([facility]) [address] [place] [address] GLOMERULAR FILTRATION RATE ML/MIN/1.73 SQ M.PREDICTED 79.2 mL/min/1.73m*2 Normal >60.0 [place] Comment on above: Result Comment: [facility]???s estimated glomerular filtration rate (eGFR) will [...] group of individuals. Performed By: #### L AB15 #### [facility] ([facility]) [address] [address] Glucose [Mass/Vol] 86 mg/dL Normal 70-100 [facility] Comment on above: Performed By: #### L [id number] #### [facility] ([facility]) [address] [place] [address] Potassium [Moles/Vol] 3.9 mmol/L Normal 3.5-5.1 [facility] Comment on above: Performed By: #### L AB15 #### [facility] ([facility]) [address] [place] [address] Sodium [Moles/Vol] 137 mmol/L Normal 136-145 [facility] Comment on above: Performed By: #### L AB15 #### [facility] ([facility]) [address] [place] [address] Urea nitrogen [Mass/Vol] 32 mg/dL High 7-25 [facility] Comment on above: Performed By: #### L AB15 #### [facility] (BEAKER) [address] [place] [address] UREA NITROGEN/CREATININE (MASS RATIO) IN SER/PLAS 30.8 [facility] Comment on above: Performed By: #### L AB15 #### [facility] (BEAKER) [address] [place] [address] HPon 05-14-2024 HP -- Attestation signed by Taj Otero MD at 05/14/2024 11:43 AM Coronary CTA suggested severe stenosis in the circumflex and moderate disease elsewhere. Given his symptoms, stress test finding and coronary CTA findings we are proceeding with right heart catheterization and coronary angiography. By using the attestations below, I agree that I have read and verify that the documentation has been personally reviewed by me and ensure that the documentation accurately reflects the encounter. GC: I personally saw this patient on the day of the encounter, performed the narayanan portions of the service and participated in the management and treatment plan of the patient. I reviewed and confirm the documentation by the Interventional Fellow Dr Joyce Rodrigues. Please note there may be an additional personal documentation from me. Taj Otero MD H&P reviewed. The patient was examined and there are no changes to the H&P. Discussed risks, benefits, and alternative therapies with the patient, he understands and willing to proceed with coronary angiogram and possible PCI. Joyce Rodrigues MD PGY-7 Interventional Jigger Machine Operator [facility] NURSNOTEon 05-14-2024 NURSNOTE Patient okay to discharge at [address] Otero. [facility] NURSNOTE RN educated pt on d/ c instructions. This included: site care, limited physical activity, resume normal diet, future appointments, medications, and moderate sedation instructions. RN educated pt on when to notify physician and when to go to the hospital. RN encouraged pt to voice any questions or concerns, and answered any questions or concerns if pt verbalized. [facility] BRITTANYNOTMary Aparicio notifi ed of normal creatnine result. states pt ok for early discharge at 2:30 and no need to continue IVF. [facility] Orders Onlyon 05-04-2024 Orders Only [id number] Jazmyne Penn 1955 M Date Provider Department Center 05/04/2024 ERMA JUNE [facility] Family History Problem Relation Age of Onset Colon cancer Mother Coronary artery disease Father Cancer Brother Family Status - Relation Status Age at Mother Father Brother [facility] CREATININE, SERUMon 05-01-20 24 Creatinine [Mass/Vol] 1.45 mg/dL High 0.70-1.30 [facility] Comment on above: Performed By: #### L [id number] ####[facility] (JACEY)[address] [place] [address] GLOMERULAR FILTRATION RATE ML/MIN/1.73 SQ M.PREDICTED 53.1 mL/min/1.73m*2 Low >60.0 [place] Comment on above: Result Comment: [facility]???s estimated glomerular filtration rate (eGFR) will [...] of individuals. Performed By: #### L [id number] ####[facility] (BEJM)[address] [place] [address] CTA HEART CORONARY W IV CONT Luh [...] Condon MD. Not Vldtd Invalid Interpretation Code [facility] Labon 05-01-2024 Lab [id number] Jazmyne Penn 1955 Date Provider Department [place] 05/01/2024 2245-[facility] LAB RESOURCE [facility] [place] [facility] Family History Problem Relation Age of Onset Colon cancer Mother Coronary artery disease Father Cancer Brother Family Status - Relation Status Age at Mother Father Brother Normal [facility] 04-29-2024 [facility] Cardiology - [facility] Subjective Jazmyne Penn is a 68 y.o. year old male patient being seen to establish care. Ref from Dr. Muñoz for abnormal stress test performed last week. This was ordered for worsening CASTELLANOS. He denies chest pain, palpitations, and lightheadedness/syncop e. 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 Normal [facility] Office Visiton 04-29-2024 Follow-up visit [id number] Jazmyne Penn 1955 M Date Provider Department Center 04/29/2024 TAJ SUNSHINE ANTHONY [facility] Family History Problem Relation Age of Onset Colon cancer Mother Coronary artery disease Father Cancer Brother Family Status - Relation Status Age at Mother Father Brother Level of Service:77862 LA OFFICE/OP CONSLTJ NEW/EST PT MOD MDM 40 MINUTES Normal [facility] [place] 04-18-2023 Consent [id number] 42 [id number]#1.00 CD:[address] [facility] In office Testingon 04-18-20 23 In office Testing [id number] 42 [id number]#1.0 0CD:[address] [facility] Registrationon 04-18-2023 Registration [id number] 04 [id number]#1. 00CD:[address] [facility] In office Testingon 03-15-20 23 In office Testing [id number] 05 [id number]#1. 00CD:[address] [facility] [place] 03-08-2023 Consent [id number] 05 [id number]#1. 00CD:[address] [facility] Registrationon 03-08-2023 Registration [id number] 05 [id number]#1. 00CD:[address] [facility] In office Testingon 02-06-20 23 In office Testing [id number] 21 [id number]#1.0 0CD:[address] [facility] [place] 02-04-2023 Consent [id number] 11 [id number]#1.0 0CD:[address] [facility] Registrationon 02-04-2023 Registration [id number] 11 [id number]#1.0 0CD:[address] [facility] Patient Correspondenceon Patient Correspondence [id number]#1.0 0CD:[address] [facility] Physician Referralon 023 Physician Referral [id number] 60 [id number]#1.0 0CD:[address] [facility] Physician Referral [id number]#1.0 0CD:[address] [facility] [place] 11-09-2022 Consent [id number] 05 [id number]#1. 00CD:[address] [facility] In office Testingon 11-10-19 23 In office Testing [id number] 40 [id number]#1 .00CD:[address] [facility] Registrationon 11-09-2022 Registration [id number] 05 [id number]#1. 00CD:[address] [facility] [place] 07-27-2022 Consent [id number] 05 [id number]#1.0 0CD:[address] [facility] Registrationon 07-27-2022 Registration [id number] 05 [id number]#1.0 0CD:[address] [facility] [place] 07-09-2022 Consent [id number] 01 [id number]#1. 00CD:[address] [facility] In office Testingon 07-09-20 22 In office Testing [id number] 01 [id number]#1. 00CD:[address] [facility] Registrationon 07-09-2022 Registration [id number] 01 [id number]#1. 00CD:[address] [facility] In office Testingon 07-06-20 In office Testing [id number] 05 [id number]#1. 00CD:[address] [facility] GLYCOHEMOGLOBIN A1Con 2021 ADA RECOMMENDATION SEE BELOW Normal [facility] Comment on above: Result Comment: ADA RECOMMENDED LIMIT 4.0 - 6.0 ADA THERAPEUTIC TARGET < 7.0 ACTION SUGGESTED > 7.0 Performed By: #### A 1C #### [facility] [address] [address] [address] Sandor Coffman Glucose [Mass/Vol] 140 mg/dL Normal [facility] Comment on above: Performed By: #### A 1C #### [facility] [address] [address] [address] Sandor Coffman HbA1c (Bld) [Mass fraction] 6.5 % Critically high 4.5-6.2 [facility] Comment on above: Performed By: #### A 1C #### [facility] [address] [address] [address] Sandor Coffman Registrationon 05-01-2022 Registration [id number] 02 [id number]#1. 00CD:[address] [facility] [place] 04-27-2022 Consent [id number] 90 [id number]#1 .00CD:[address] [facility] HIP LEFT 1 OR 2 VWS WITH PEL VISon 08-27-2019 HIP LEFT 1 OR 2 VWS WITH PELVIS [facility] Department of Radiology [address] [place] [phone] ======== Patient Name: JAZMYNE PENN : 1955 Sex: M Age: Race: White Pt. Location: Patient Status: Ordered Date: 08/27/2019 9:45:00 AM Completed Date: 08/27/2019 09:44 AM Requesting Provider: LIZET LOVELACE Attending Provider: Report Copy To: Signs & Symptoms: Z96.642 Presence of left artificial hip joint I10 History: [place] Comments: , Views (X-RAY, HIP): Radiologic Protocol , Views (X-RAY, HIP): Radiologic Protocol , , , Ordering Jose R LOVELACE MD , Exam: HIP LEFT 1 [...] above. Electronically signed: David Sanford. Transcribed by: [email or web address], User Resident: Electronically Signed by: DAVID SANFORD @ 08/27/2019 01:52 PM Normal [facility] Comment on above: Order Comment: , Alex ws (X-RAY, HIP): Radiologic Protocol , Views (X-RAY, HIP): Radiologic Protocol , , , Ordering Jose R - LIZET LOVELACE MD , HIP LEFT 1 OR 2 VWS WITH PEL VISon 06-18-2019 HIP LEFT 1 OR 2 VWS WITH PELVIS [facility] Department of Radiology [address] [place] [phone] ======== Patient Name: JAZMYNE PENN : 1955 Sex: M Age: Race: White Pt. Location: Patient Status: Ordered Date: 06/17/2019 3:35:00 PM Completed Date: 06/18/2019 10:30 AM Requesting Provider: LIZET LOVELACE Attending Provider: Report Copy To: Signs & Symptoms: Z96.642 Presence of left artificial hip joint I10 History: [place] Comments: , Views (X-RAY, HIP): Radiologic Protocol [...] loosening Electronically signed by:Carlos Cameron. Transcribed by: [email or web address], User Resident: Electronically Signed by: CARLOS CAMERON @ 06/18/2019 02:11 PM Normal [facility] Comment on above: Order Comment: , Alex ws (X-RAY, HIP): Radiologic Protocol , Views (X-RAY, HIP): Radiologic Protocol , , , Ordering Provider - LIZET LOVELACE MD , Encounters Encounter Date Encounter Type Care Provider Facility Start: 05-14-2024 End: 05-14-2024 ambulatory [facility] Start: 05-01-2024 Encounter for other preprocedural examination [facility] Start: 05-01-2024 End: 05-01-2024 ambulatory [facility] Start: 04-29-2024 End: 04-29-2024 ambulatory [facility] Start: 04-18-2023 End: 04-19-2023 ambulatory Tuan Lira [facility] Start: 03-08-2023 End: 03-09-2023 ambulatory Nat T TREVOR [facility] Start: 02-04-2023 End: 02-05-2023 ambulatory Nat T TREVOR [facility] Facility:[facility] Start: 06-15-2022 End: 06-16-2022 ambulatory Nat T TREVOR [facility] Start: 04-27-2022 End: 04-28-2022 ambulatory Truman FUNES [facility] Start: 12-22-[address] PEGGY MUÑOZ Facility :[facility] Start: 10-03-[address] PEGGY MUÑOZ Facility :[facility] Start: 08-04-2019 End: 08-04-2019 ambulatory Peggy Muñoz Facility:[facility] Payers Date Payer Category Payer Unknown [id number] 2019 Unknown [id number] Self-pay 1955 Unknown [id number] 1955 Unknown [id number] 1955 Unknown [id number] 1955 Unknown [id number] Medicare [id number] Private Health Insurance [employer] [id number] Unknown [id number] Unknown [id number] Worker's Compensation [employer] [facility] [id number] Social History Date Type Detail Facility [facility] Work Phone: Start: 1955 Sex Assigned At Male F [facility] Clinical Note 05-14-2024 Note Date & Type Note Facility 05-14-2024 Note Patient: Jazmyne Harrison Celia Procedure Information Date/Time: 05/14/24 1200 Procedures: Coronary angiography Right heart cath Location: [facility] HOT REPAIRMAN 2 BIPLANE / [facility] (Cath) Providers: Taj Otero MD Clinical information reviewed: Allergies Meds Physical Exam Airway Mallampati: II TM distance: >3 FB Neck ROM: full Cardiovascular Rhythm: regular Rate: normal Dental Pulmonary Breath sounds clear to auscultation Abdominal Abdomen: soft Bowel sounds: normal Anesthesia Plan ASA 3 other (Conscious ) Anesthetic plan and risks discussed with patient. Use of blood products discussed with patient who consented to blood products. Plan discussed with attending. 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 [facility] Evaluation note Note Date & Type Note Facility Evaluation note No assessment information availa [facility] Work Phone: Summary Purpose Family History [...] and content) DATE CREATED AUTHOR 06/17/2020 [facility] [place] DATE CREATED AUTHOR AUTHOR'S ORGANIZ ATION 07/07/2022 [facility] DATE CREATED AUTHOR AUTHOR'S ORGANIZ ATION 03/30/2023 [facility] DATE CREATED AUTHOR AUTHOR'S ORGANIZ ATION 04/20/2023 [facility] DATE CREATED AUTHOR AUTHOR'S ORGANIZ ATION 05/19/2024 [facility] Goals (unrecognized section and content) Goals [...] BE BASED ON THE PRIMARY CLINICAL RECORDS. [facility] [employer] [facility]. provides no warranty or guarantee of the accuracy or completeness of information in this document.
[2024-07-08 12:51] LABS: Basophils Percent Auto 0.5 % (0.2-2.0); Eosinophils Absolute Auto 0.2 10^3/uL (0.0-0.7); Eosinophils Percent Auto 3.1 % (0.9-7.0); Hematocrit 38.6 % (42.0-54.0); Hemoglobin 12.5 g/dL (14.0-18.0); Immature Granulocytes Abs Auto 0.03 10^3/uL (0.00-0.03); Immature Granulocytes Pct Auto 0.5 % (0.0-0.5); Lymphocytes Absolute Auto 0.8 10^3/uL (1.2-3.8); Lymphocytes Percent Auto 12.3 % (20.5-60.0); Mean Corpuscular HGB Conc 32.4 g/dL (29.9-35.2); Mean Corpuscular Hemoglobin 32.4 pg (25.9-34.0); Mean Platelet Volume 9.7 fL (9.5-13.5); Monocytes Absolute Auto 0.7 10^3/uL (0.3-0.8); Monocytes Percent Auto 10.5 % (1.7-12.0); Neutrophils Absolute Auto 4.5 10^3/uL (1.4-6.5); Neutrophils Percent Auto 73.1 % (43.0-75.0); Platelet Count 167 10^3/uL (150-450); Red Blood Count 3.86 10^6/uL (4.70-6.10); Red Cell Distribution Width 14.6 % (11.0-15.0); White Blood Count 6.2 10^3/uL (4.0-11.0)
--- NOTE | 2024-07-08 12:54 | US_ITS ---
The [address] [address] Patient Name: JAZMYNE PENN MRN: [id number] date: 1955 Sex: M Assigned Patient Location: LAB Current Patient Location: Accession/Order Number: [id number] Exam Date: 07/08/2024 13:00 Report Date: 07/09/2024 07:13 At the request of: PEGGY NEIL Procedure: US abdomen limited EXAMINATION: US abdomen limited HISTORY: Unspecified cirrhosis of liver. Eval for ascites COMPARISON: 05/27/2023 FINDINGS: No ascites is observed US/US abdomen limited IMPRESSION: No ascites observed. Electronically authenticated by: MALIA SYED Date: 07/09/2024 07:13
[2024-07-08 13:06] LABS: Ammonia 13 umol/L (11-32)
[2024-07-08 13:51] LABS: Alanine Aminotransferase 142 U/L (16-63); Albumin Globulin Ratio 0.4; Albumin Level 1.9 g/dL (3.4-5.0); Alkaline Phosphatase 340 U/L (46-116); Amylase 38 U/L (25-115); Anion Gap 8.8; Aspartate Amino Transferase 245 U/L (15-37); BUN Creatinine Ratio 16.2; Bilirubin Total 2.2 mg/dL (0.2-1.0); Calcium 8.8 mg/dL (8.5-10.1); Carbon Dioxide 29.2 mmol/L (21.0-32.0); Chloride 103 mmol/L (98-107); Estimated GFR (African America >60 (>=60 mL/min/1.73m^2); Estimated GFR (Non-African Ame 52 (>=60 mL/min/1.73m^2); Globulin 4.3 g/dL; Glucose 168 mg/dL (74-106); Sodium 136 mmol/L (136-145); Total Protein 6.2 g/dL (6.4-8.2)
== END 2024-07-08 12:37 | disposition home or self-care (01) ==
LOC: LAB 12:38
PROVIDERS: PCP Family Medicine; Visit Provider Family Medicine
DX: R53.83 Other fatigue (principal); I50.30 Unspecified diastolic (congestive) heart failure; K74.60 Unspecified cirrhosis of liver; I11.0 Hypertensive heart disease with heart failure
CPT/HCPCS: 36415; 76705; 80053; 82140; 82150; 83690; 83880; 85025

== ENCOUNTER 2024-09-01 08:39 | Emergency (ER) | payer MEDICARE, SELFPAY ==
[2024-09-01 08:44] VITALS: BP 115/69; PULSE 76; TEMP 36.4; O2SAT 95; BMI 48.1
--- OUTSIDE RECORDS SUMMARY | 2024-09-01 09:10 | XMS_ITS | CCD ---
Author Organization [facility] Informat ion Partnership [facility] Care Team Providers Care [employer] Driver Name Role Phone RASHAAD, DR WOODS Admitting [...] Anion gap [Moles/Vol] 9 mmol/L Normal 7-20 [facility] Comment on above: Performed By: #### L [id number] #### [facility] ([facility]) [address] [place] [address] Calcium [Mass/Vol] 6.9 mg/dL Low 8.6-10.3 [facility] Comment on above: Performed By: #### L [id number] #### [facility] ([facility]) [address] [place] [address] Chloride [Moles/Vol] 110 mmol/L High 98-107 [facility] Comment on above: Performed By: #### L AB15 #### [facility] ([facility]) [address] [facility] [facility] [place] [address] CO2 [Moles/Vol] 22 mmol/L Normal 21-31 [facility] Comment on above: Performed By: #### L AB15 #### [facility] ([facility]) [address] [place] [address] Creatinine [Mass/Vol] 1.04 mg/dL Normal 0.70-1.30 [facility] Comment on above: Performed By: #### L [id number] #### [facility] ([facility]) [address] [place] [address] GLOMERULAR FILTRATION RATE ML/MIN/1.73 SQ M.PREDICTED 79.2 mL/min/1.73m*2 Normal >60.0 [facility] Comment on above: Result Comment: The [facility]???s estimated glomerular filtration rate (eGFR) will no [...] individuals. Performed By: #### L AB15 #### [facility] ([facility]) [address] [address] Glucose [Mass/Vol] 86 mg/dL Normal 70-100 [facility] Comment on above: Performed By: #### L AB15 #### [facility] ([facility]) [address] [place] [address] Potassium [Moles/Vol] 3.9 mmol/L Normal 3.5-5.1 [facility] Comment on above: Performed By: #### L AB15 #### [facility] ([facility]) [address] [place] [address] Sodium [Moles/Vol] 137 mmol/L Normal 136-145 [facility] Comment on above: Performed By: #### L AB15 #### [facility] ([facility]) [address] [address] Urea nitrogen [Mass/Vol] 32 mg/dL High 7-25 [facility] Comment on above: Performed By: #### L AB15 #### [facility] ([facility]) [address] [place] [address] UREA NITROGEN/CREATININE (MASS RATIO) IN SER/PLAS 30.8 [facility] Comment on above: Performed By: #### L AB15 #### [facility] ([facility]) [address] [place] [address] HPon 05-14-2024 HP -- Attestation signed by [...] possible PCI. Joyce Rodrigues MD PGY-7 Interventional Tin Assorter [facility] NURSNOTEon 05-14-2024 NURSNOTE Patient okay to discharge at [address] Otero. [facility] NURSNOTE RN educated pt on d/ c instructions. This included: site care, limited physical activity, resume normal diet, future appointments, medications, and moderate sedation instructions. RN educated pt on when to notify physician and when to go to the hospital. RN encouraged pt to voice any questions or concerns, and answered any questions or concerns if pt verbalized. [facility] BRITTANYNOTMary Aparicio notifi ed of normal creatnine result. states pt ok for early discharge at 2:30 and no need to continue IVF. [facility] Orders Onlyon 05-04-2024 Orders Only [id number] Jazmyne Penn 1955 M Date Provider Department Center 05/04/2024 ERMA J[facility] Family History Problem Relation Age of Onset Colon cancer Mother Coronary artery disease Father Cancer Brother Family Status - Relation Status Age at Mother Father Brother [facility] CREATININE, SERUMon 05-01-20 24 Creatinine [Mass/Vol] 1.45 mg/dL High 0.70-1.30 [facility] Comment on above: Performed By: #### L [id number] ####[facility] ([place]ACEY)[address] [place] [address] GLOMERULAR FILTRATION RATE ML/MIN/1.73 SQ M.PREDICTED 53.1 mL/min/1.73m*2 Low >60.0 [facility] Comment on above: Result Comment: The [facility]???s estimated glomerular filtration rate (eGFR) will no [...] L AB383 ####[facility] ([facility])[address] [place] [address] CTA HEART CORONARY W IV CONT Luh [...] Condon MD. Not Vldtd Invalid Interpretation Code [facility] Labon 05-01-2024 Lab [id number] Jazmyne Penn 1955 Date Provider Department [place] 05/01/2024 2245-[facility] OPD LAB RESOURCE [facility] OPD [place] Medical C Family History Problem Relation Age of Onset Colon cancer Mother Coronary artery disease Father Cancer Brother Family Status - Relation Status Age at Mother Father Brother Normal [facility] 04-29-2024 [facility] Cardiology - [facility] Clinic Subjective Jazmyne Penn is [...] 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 Normal [facility] Office Visiton 04-29-2024 Follow-up visit [id number] Jazmyne Penn 1955 M Date Provider Department Center 04/29/2024 TAJ SUNSHINE ANTHONY Hinson [facility] Family History Problem Relation Age of Onset Colon cancer Mother Coronary artery disease Father Cancer Brother Family Status - Relation Status Age at Mother Father Brother Level of Service:89373 DC OFFICE/OP CONSLTJ NEW/EST PT MOD MDM 40 MINUTES Normal [facility] [place] 04-18-2023 Consent [id number] 42 [id number]#1.00 CD:127 Normal [facility] In office Testingon 04-18-20 23 In office Testing [id number] 42 [id number]#1.0 0CD:127 Normal [facility] Registrationon 04-18-2023 Registration [id number] 04 [id number]#1. 00CD:127 Normal [facility] In office Testingon 03-15-20 23 In office Testing [id number] 05 [id number]#1. 00CD:127 Normal [facility] [place] 03-08-2023 Consent [id number] 05 [id number]#1. 00CD:127 Normal [facility] Registrationon 03-08-2023 Registration [id number] 05 [id number]#1. 00CD:127 Normal [facility] In office Testingon 02-06-20 23 In office Testing [id number] 21 [id number]#1.0 0CD:127 Normal [facility] [place] 02-04-2023 Consent [id number] 11 [id number]#1.0 0CD:127 Normal [facility] Registrationon 02-04-2023 Registration [id number] 11 [id number]#1.0 0CD:127 [facility] Patient Correspondenceon Patient Correspondence [id number]#1.0 0CD:127 [facility] Physician Referralon 023 Physician Referral [id number] 60 [id number]#1.0 0CD:127 [facility] Physician Referral [id number]#1.0 0CD:127 [facility] [place] 11-09-2022 Consent [id number] 05 [id number]#1. 00CD:127 [facility] In office Testingon 11-10-19 23 In office Testing [id number] 40 [id number]#1 .00CD:127 [facility] Registrationon 11-09-2022 Registration [id number] 05 [id number]#1. 00CD:127 [facility] [place] 07-27-2022 Consent [id number] 05 [id number]#1.0 0CD:127 [facility] Registrationon 07-27-2022 Registration [id number] 05 [id number]#1.0 0CD:127 [facility] [place] 07-09-2022 Consent [id number] 01 [id number]#1. 00CD:127 [facility] In office Testingon 07-09-20 22 In office Testing [id number] 01 [id number]#1. 00CD:127 [facility] Registrationon 07-09-2022 Registration [id number] 01 [id number]#1. 00CD:127 [facility] In office Testingon 07-06-20 In office Testing [id number] 05 [id number]#1. 00CD:127 [facility] GLYCOHEMOGLOBIN A1Con 2021 ADA RECOMMENDATION SEE BELOW Normal [facility] Comment on above: Result Comment: ADA RECOMMENDED LIMIT 4.0 - 6.0 ADA THERAPEUTIC TARGET < 7.0 ACTION SUGGESTED > 7.0 Performed By: #### A 1C #### [facility] [address] [address] [address] Sandor Coffman Glucose [Mass/Vol] 140 mg/dL Normal [facility] Comment on above: Performed By: #### A 1C #### [facility] [address] [address] [address] Sandor Coffman HbA1c (Bld) [Mass fraction] 6.5 % Critically high 4.5-6.2 [facility] Comment on above: Performed By: #### A 1C #### [facility] [address] [address] [address] Sandor Coffman Registrationon 05-01-2022 Registration [id number] 02 [id number]#1. 00CD:127 Normal [facility] [place] 04-27-2022 Consent [id number] 90 [id number]#1 .00CD:127 Normal [facility] HIP LEFT 1 OR 2 VWS WITH PEL VISon 08-27-2019 HIP LEFT 1 OR 2 VWS WITH PELVIS [facility] Department of Radiology [address] [place] [id number] ======== Patient Name: JAZMYNE PENN : [...] above. Electronically signed: David Sanford. Transcribed by: [email or web address], User Resident: Electronically Signed by: DAVID SANFORD @ 08/27/2019 01:52 PM Normal The [facility] Comment on above: Order Comment: , Alex ws (X-RAY, HIP): Radiologic Protocol , Views (X-RAY, HIP): Radiologic Protocol , , , Ordering Jose R - LIZET LOVELACE MD , HIP LEFT 1 OR 2 VWS WITH PEL VISon 06-18-2019 HIP LEFT 1 OR 2 VWS WITH PELVIS [facility] Department of Radiology [address] [place] [id number] ======== Patient Name: JAZMYNE PENN : [...] loosening Electronically signed by:Carlos Cameron. Transcribed by: [email or web address], User Resident: Electronically Signed by: CARLOS CAMERON @ 06/18/2019 02:11 PM Normal The [facility] Comment on above: Order Comment: , Alex ws (X-RAY, HIP): Radiologic Protocol , Views (X-RAY, HIP): Radiologic Protocol , , , Ordering Provider - LIZET LOVELACE MD , Encounters Encounter Date Encounter Type Care Provider Facility Start: 05-14-2024 End: 05-14-2024 ambulatory [facility] Start: 05-01-2024 Encounter for other preprocedural examination [facility] Start: 05-01-2024 End: 05-01-2024 ambulatory [facility] Start: 04-29-2024 End: 04-29-2024 ambulatory [facility] Start: 04-18-2023 End: 04-19-2023 ambulatory Tuan [...] Start: 08-04-2019 End: 08-04-2019 ambulatory Peggy Muñoz Facility:[facility] Payers Date Payer Category Payer Unknown [id number] 2019 Unknown [id number] 1959 Self-pay 1955 Unknown [id number] 1955 Unknown [id number] 1955 Unknown [id number] 1955 Unknown [id number] Medicare [id number] Private Health Insurance [employer] [id number] Unknown [id number] Unknown [id number] Worker's Compensation [employer] [facility] [id number] Social History Date Type Detail [facility] Work Phone: Start: 1955 Sex Assigned At Male [facility] Clinical Note 05-14-2024 Note Date & Type Note Facility 05-14-2024 Note Patient: Jazmyne Harrison Celia Procedure Information Date/Time: 05/14/24 1200 Procedures: Coronary angiography Right heart cath Location: [facility] EDGE BANDING OFF BEARER 2 BIPLANE / [facility] (Cath) Providers: Taj Otero [...] Plan discussed with attending. 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 [facility] Evaluation note Note Date & Type Note Facility Evaluation note No assessment information availa [facility] Work Phone: Summary Purpose Family History [...] and content) DATE CREATED AUTHOR 06/17/2020 [facility] DATE CREATED AUTHOR AUTHOR'S ORGANIZ ATION 07/07/2022 [facility] DATE CREATED AUTHOR AUTHOR'S ORGANIZ ATION 03/30/[address] [facility] DATE CREATED AUTHOR AUTHOR'S ORGANIZ ATION 04/20/2023 [facility] DATE CREATED AUTHOR AUTHOR'S ORGANIZ ATION 05/19/2024 [facility] Goals (unrecognized section and content) Goals may [...] BE BASED ON THE PRIMARY CLINICAL RECORDS. [facility] [employer] [facility]. provides no warranty or guarantee of the accuracy or completeness of information in this document.
--- NOTE | 2024-09-01 09:12 | ED.UPPEXIN1 ---
HPI HPI - Extremity Injury (Upper) General Chief Complaint: Extremity Injury, Upper Stated Complaint: FALL - 08/30/2024 UPPER EXTREMITY INJURY Time Seen by Provider: 09/01/24 08:42 Source: patient Mode of arrival: walk-in Limitations: no limitations History of Present Illness HPI narrative: 68-year-old male presents to the emergency department for pain in his left elbow and tailbone. 2 days ago he fell when he slipped on ice. He is right-handed. No other injury was sustained. His elbow hurts to move it. Related Data Home Medications ?Medication ?Instructions ?Recorded ?Confirmed carvedilol 6.25 mg tablet 6.25 mg PO DAILY 05/27/23 05/27/23 furosemide 20 mg tablet 20 mg PO DAILY 05/27/23 05/27/23 glimepiride 4 mg tablet 4 mg PO DAILY 05/27/23 05/27/23 potassium chloride 20 mEq 20 meq PO DAILY 05/27/23 05/27/23 tablet,extended release(part/cryst) (Klor-Con M) spironolactone 25 mg tablet 25 mg PO QID 05/27/23 05/27/23 Previous Rx's ?Medication ?Instructions ?Recorded hydrocodone 5 mg-acetaminophen 325 1 tab PO Q4H PRN pain 3 days #8 08/29/23 mg tablet tabs Allergies Allergy/AdvReac Type Severity Reaction Status Date / Time No Known Drug Allergies Allergy Verified 05/27/23 12:25 Opioid HPI Opioid Management Most Recent Pain and Opioid Data: Last Pain Scale 8 08/29/23 13:14 08/29/23 Review of Systems ROS Narrative A ten point review of systems is negative except as noted above. PFSH PFSH Social History Smoking status: Light tobacco smoker Little interest or pleasure in doing things: not at all Feeling down, depressed, or hopeless: not at all Exam Narrative Exam Narrative: Nurses note and vital signs reviewed and patient is not hypoxic. General: The patient appears well and in no apparent distress. Patient is resting comfortably on cart. Skin: Warm, dry, no pallor noted. There is no rash noted. Head: Normocephalic, atraumatic Eye: Normal conjunctiva, no drainage Ears, Nose, Mouth, and Throat: oral mucosa is moist. Nares patent. Cardiovascular: Regular Rate and Rhythm Respiratory: Patient is in no distress, no accessory muscle use, lungs are clear to auscultation, no wheezing, rales or rhonchi Back: No tenderness in the lumbar area. Coccygeal area has some tenderness but no abrasion or break in the skin GI: Nontender Musculoskeletal: He has tenderness in the left elbow and has discomfort fully extending the elbow. The wrist and shoulder are nontender. Fingers have full range of motion. Neurological: A&O, normal speech Psychiatric: Cooperative Constitutional Vital Signs, click to edit/add: Last Vital Signs Temp 97.6 F 09/01/24 08:44 Pulse 76 09/01/24 08:44 Resp 20 09/01/24 08:44 BP 115/69 09/01/24 08:44 Pulse Ox 95 09/01/24 08:44 O2 Del Method Room Air 09/01/24 08:44 Course Vital Signs Vital signs: Vital Signs Temperature 97.6 F 09/01/24 08:44 Pulse Rate 76 09/01/24 08:44 Respiratory Rate 20 09/01/24 08:44 Blood Pressure 115/69 09/01/24 08:44 Pulse Oximetry 95 09/01/24 08:44 Oxygen Delivery Method Room Air 09/01/24 08:44 Temperature 97.6 F 09/01/24 08:44 Pulse Rate 76 09/01/24 08:44 Respiratory Rate 20 09/01/24 08:44 Blood Pressure 115/69 09/01/24 08:44 Pulse Oximetry 95 09/01/24 08:44 Oxygen Delivery Method Room Air 09/01/24 08:44 MDM - Extremity Injury (Upper) MDM Narrative Medical decision making narrative: The patient has left elbow fracture and the possibility of surgery was discussed with the patient. Long-arm posterior splint and sling were applied, application checked by me and found to be appropriate, he is neurovascular intact. Nondisplaced sacral fracture also identified. The patient has not a follow-up appoint with Dr. Beck on September 07 at 11 AM. Treatment diagnosis and follow-up were discussed with the patient. Differential Diagnosis Differential diagnosis: Likely other (Fracture, contusion) Imaging Data Left elbow: Radiologist's impression: ITS Impressions Elbow X-Ray 09/01/24 09:22 IMPRESSION: 1. Acute, displaced comminuted fracture of the radial head. 2. Large joint effusion. Electronically authenticated by: ARIEL SIDHU Date: 09/01/2024 09:36 Sacrum and Coccyx X-Ray 09/01/24 09:22 IMPRESSION: 1. Irregular alignment of distal sacrum and coccyx which may represent chronic changes/sequela of prior injury. No appreciable fracture but evaluation is slightly limited. If clinical concern for sacral/coccyx fracture consider CT pelvis. Electronically authenticated by: ARIEL SIDHU Date: 09/01/2024 09:[address] 09/01/24 09:51 IMPRESSION: 1. Suspect acute nondisplaced oblique fracture of distal sacrum (S4 and S5 levels). Electronically authenticated by: ARIEL SIDHU Date: 09/01/2024 10:33 Discharge Plan Discharge Chief Complaint: Extremity Injury, Upper Clinical Impression: Fracture of left elbow, Sacral fracture Patient Disposition: Home, Self-Care Time of Disposition Decision: 11:10 Condition: Good Mode of Transportation: Private Vehicle Prescriptions / Home Meds: No Action carvedilol 6.25 mg tablet 6.25 mg PO DAILY furosemide 20 mg tablet 20 mg PO DAILY glimepiride 4 mg tablet 4 mg PO DAILY potassium chloride [Klor-Con M20] 20 mEq tablet,ER particles/crystals 20 meq PO DAILY spironolactone 25 mg tablet 25 mg PO QID hydrocodone-acetaminophen 5-325 mg tablet 1 tab PO Q4H PRN (Reason: pain) 3 Days Qty: 8 0RF Print Language: Zimbabwean Instructions: Elbow Fracture (ED), Sacral Fracture (ED) Referrals: Desmond Muñoz MD [Primary Care Provider] - 1 week Ariel Beck MD [Physician] - 09/07/24 11:00 am
--- NOTE | 2024-09-01 09:22 | XR_ITS ---
The [address] [address] Patient Name: JAZMYNE PENN MRN: [id number] date: 1955 Sex: M Assigned Patient Location: ER Current Patient Location: ER Accession/Order Number: [id number] Exam Date: 09/01/2024 09:12 Report Date: 09/01/2024 09:40 At the request of: ARNOLD BOYLE Procedure: XR sacrum coccyx min 2V PROCEDURE: XR sacrum coccyx min 2V COMPARISON: None. HISTORY: fall ; pain after falling FINDINGS: SACRUM: Irregular alignment of the distal sacrum and coccyx, no appreciable fracture line. COCCYX: See above SOFT TISSUES: No widening of the sacroiliac joints. No radiopaque foreign body. OTHER: Moderate degenerative change of the right hip joint. Prior left hip joint replacement. XR/XR sacrum coccyx min 2V IMPRESSION: 1. Irregular alignment of distal sacrum and coccyx which may represent chronic changes/sequela of prior injury. No appreciable fracture but evaluation is slightly limited. If clinical concern for sacral/coccyx fracture consider CT pelvis. Electronically authenticated by: ARIEL SIDHU Date: 09/01/2024 09:40
--- NOTE | 2024-09-01 09:22 | XR_ITS ---
The [address] [address] Patient Name: JAZMYNE PENN MRN: [id number] date: 1955 Sex: M Assigned Patient Location: ER Current Patient Location: ER Accession/Order Number: [id number] Exam Date: 09/01/2024 09:12 Report Date: 09/01/2024 09:36 At the request of: ARNOLD BOYLE Procedure: XR elbow LT min 3V PROCEDURE: XR elbow LT min 3V HISTORY: fall COMPARISON: None. FINDINGS: BONES:Comminuted fracture of radial head with slightly impacted and displaced anterior margin and distracted posterior margin. Mild degenerative changes of the proximal ulna and distal humerus but no fracture. SOFT TISSUES:Mild soft tissue swelling. EFFUSION:Large joint effusion. OTHER: Negative. XR/XR elbow LT min 3V IMPRESSION: 1. Acute, displaced comminuted fracture of the radial head. 2. Large joint effusion. Electronically authenticated by: ARIEL SIDHU Date: 09/01/2024 09:36
--- NOTE | 2024-09-01 09:51 | CT_ITS ---
The [address] [address] Patient Name: JAZMYNE PENN MRN: [facility]:[id number] date: 1955 Sex: M Assigned Patient Location: ER Current Patient Location: ER Accession/Order Number: [id number] Exam Date: 09/01/2024 10:05 Report Date: 09/01/2024 10:33 At the request of: ARNOLD BOYLE Procedure: CT pelvis wo con EXAMINATION: CT pelvis wo con HISTORY: Possible sacral fracture COMPARISON: XR sacrum and coccyx 09/01/2024, XR left hip and femur 09/02/2017 TECHNIQUE: Axial, Coronal, and Sagittal images were obtained without and/or with IV contrast as indicated by examination type. Dose reduction techniques were achieved by using automated exposure control and/or adjustment of mA and/or kV according to patient size and/or use of iterative reconstruction technique FINDINGS: BOWEL: No abnormality of the visible bowl. LYMPH NODES: No adenopathy. URINARY BLADDER: No visible focal wall thickening, lesion, or calculus. PELVIC ORGANS: No visible mass. Pelvic organs appropriate for patient age. ANTERIOR WALL: Small fat filled left inguinal hernia without strangulation. BONES: Slight irregularity of S4 and S5 levels of the sacrum with suspected oblique fracture line (series 10 image 56). Old healed fracture of left superior pubic ramus. Prior left hip replacement. OTHER: Negative. CT/CT pelvis wo con IMPRESSION: 1. Suspect acute nondisplaced oblique fracture of distal sacrum (S4 and S5 levels). Electronically authenticated by: ARIEL SIDHU Date: 09/01/2024 10:33
== END 2024-09-01 11:38 | disposition home or self-care (01) ==
PROVIDERS: Emergency Provider Emergency Medicine; PCP Family Medicine
DX: S52.122A Displaced fracture of head of left radius, initial encounter for closed fracture (principal); S32.10XA Unspecified fracture of sacrum, initial encounter for closed fracture; W00.0XXA Fall on same level due to ice and snow, initial encounter; F17.200 Nicotine dependence, unspecified, uncomplicated
CPT/HCPCS: 29105; 72192; 72220; 73080; 99284

== ENCOUNTER 2024-09-08 13:26 | Outpatient (OUT) | payer MEDICARE, SELFPAY ==
--- NOTE | 2024-09-08 13:28 | CT_ITS ---
[address] [address] Patient Name: JAZMYNE PENN MRN: [id number] date: 1955 Sex: M Assigned Patient Location: CT Current Patient Location: CT Accession/Order Number: [id number] Exam Date: 09/08/2024 13:49 Report Date: 09/08/2024 14:38 At the request of: ARIEL MCQUEEN Procedure: CT elbow LT wo con EXAMINATION: CT elbow LT wo con HISTORY: Left Elbow Pain COMPARISON: 09/01/2024 plain x-ray TECHNIQUE: Multi-planar CT images were created without IV contrast. Dose reduction techniques were achieved by using automated exposure control and/or adjustment of mA and/or kV according to patient size and/or use of iterative reconstruction technique. FINDINGS: Limited evaluation due to nonstandard projections and persistent flexion of the patient's arm as he is in a splint BONES: Complex intra-articular fracture of the radial head is observed. Fracture of the coronoid process of the ulna. Calcific density identified along the medial and posterior aspects of the humerus possibly avulsion injuries SOFT TISSUES: Diffuse soft tissue swelling EFFUSION: Large elbow joint effusion OTHER: Negative. CT/CT elbow LT wo con IMPRESSION: Grossly stable complex elbow fractures with joint effusion soft tissue swelling as detailed above Electronically authenticated by: MALIA SYED Date: 09/08/2024 14:38
--- OUTSIDE RECORDS SUMMARY | 2024-09-08 13:47 | XMS_ITS | CCD ---
Author Organization [facility] Informat ion Partnership [facility] Care Team Providers Care Dosier Operator Name Role Phone RASHAAD, DR WOODS Admitting [...] Anion gap [Moles/Vol] 9 mmol/L Normal 7-20 [facility] Comment on above: Performed By: #### L AB15 #### [facility] [address] [place] [address] Calcium [Mass/Vol] 6.9 mg/dL Low 8.6-10.3 [facility] Comment on above: Performed By: #### L AB15 #### [facility] [address] [facility] [place] [address] Chloride [Moles/Vol] 110 mmol/L High 98-107 [facility] Comment on above: Performed By: #### L AB15 #### [facility] [address] [place] [address] CO2 [Moles/Vol] 22 mmol/L Normal 21-31 [facility] Comment on above: Performed By: #### L AB15 #### [facility] [address] [facility] [place] [address] Creatinine [Mass/Vol] 1.04 mg/dL Normal 0.70-1.30 [facility] Comment on above: Performed By: #### L AB15 #### [facility] [address] [place] [address] GLOMERULAR FILTRATION RATE ML/MIN/1.73 SQ M.PREDICTED 79.2 mL/min/1.73m*2 Normal >60.0 [facility] Comment on above: Result Comment: [facility]???s estimated glomerular filtration rate (eGFR) will no [...] Performed By: #### L AB15 #### [facility] [address] [place] [address] Glucose [Mass/Vol] 86 mg/dL Normal 70-100 [facility] Comment on above: Performed By: #### L AB15 #### [facility] [address] [place] [address] Potassium [Moles/Vol] 3.9 mmol/L Normal 3.5-5.1 [facility] Comment on above: Performed By: #### L AB15 #### [facility] [address] [place] [address] Sodium [Moles/Vol] 137 mmol/L Normal 136-145 [facility] Comment on above: Performed By: #### L AB15 #### [facility] [address] [place] [address] Urea nitrogen [Mass/Vol] 32 mg/dL High 7-25 [facility] Comment on above: Performed By: #### L AB15 #### [facility] [address] [place] [address] UREA NITROGEN/CREATININE (MASS RATIO) IN SER/PLAS 30.8 [facility] Comment on above: Performed By: #### L AB15 #### [facility] [address] [place] [address] HPon 05-14-2024 HP -- Attestation signed by [...] possible PCI. Joyce Rodrigues MD PGY-7 Interventional Drying Equipment Operator [facility] NURSNOTEon 05-14-2024 NURSNOTE Patient okay to discharge at [address] Otero. [facility] NURSNOTE RN educated pt on d/ c instructions. This included: site care, limited physical activity, resume normal diet, future appointments, medications, and moderate sedation instructions. RN educated pt on when to notify physician and when to go to the hospital. RN encouraged pt to voice any questions or concerns, and answered any questions or concerns if pt verbalized. [facility] BRITTANYNOTMary Aparicio notifi ed of normal creatnine result. states pt ok for early discharge at 2:30 and no need to continue IVF. [facility] Orders Onlyon 05-04-2024 Orders Only [id number] Jazmyne Penn 1955 M Date Provider Department Center 05/04/2024 ERMA [facility] Family History Problem Relation Age of Onset Colon cancer Mother Coronary artery disease Father Cancer Brother Family Status - Relation Status Age at Mother Father Brother [facility] CREATININE, SERUMon 05-01-20 24 Creatinine [Mass/Vol] 1.45 mg/dL High 0.70-1.30 [facility] Comment on above: Performed By: #### L AB383 ####[facility] ([facility])[address] [place] [address] GLOMERULAR FILTRATION RATE ML/MIN/1.73 SQ M.PREDICTED 53.1 mL/min/1.73m*2 Low >60.0 [facility] Comment on above: Result Comment: [facility]???s estimated glomerular filtration rate (eGFR) will no [...] L AB383 ####[facility] ([facility])[address] [place] [address] CTA HEART CORONARY W IV CONT Luh [...] Condon MD. 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 Normal [facility] Office Visiton 04-29-2024 Follow-up visit [id number] Jazmyne Penn 1955 M Date Provider Department Center 04/29/2024 TAJ SUNSHINE ANTHONY [facility] Family History Problem Relation Age of Onset Colon cancer Mother Coronary artery disease Father Cancer Brother Family Status - Relation Status Age at Mother Father Brother Level of Service:42394 [place] OFFICE/OP CONSLTJ NEW/EST PT MOD MDM 40 MINUTES Normal [facility] [place] 04-18-2023 Consent [id number] 42 [id number]#1.00 CD:127 [facility] In office Testingon 04-18-20 23 In office Testing [id number] 42 [id number]#1.0 0CD:127 [facility] Registrationon 04-18-2023 Registration [id number] 04 [id number]#1. 00CD:127 [facility] In office Testingon 03-15-20 23 In office Testing [id number] 05 [id number]#1. 00CD:127 [facility] [place] 03-08-2023 Consent [id number] 05 [id number]#1. 00CD:127 [facility] Registrationon 03-08-2023 Registration [id number] 05 [id number]#1. 00CD:127 [facility] In office Testingon 02-06-20 23 In office Testing [id number] 21 [id number]#1.0 0CD:127 [facility] [place] 02-04-2023 Consent [id number] 11 [id number]#1.0 0CD:127 [facility] Registrationon 02-04-2023 Registration [id number] 11 [id number]#1.0 0CD:127 [facility] Patient Correspondenceon Patient Correspondence [id number]#1.0 0CD:127 [facility] Physician Referralon 023 Physician Referral [id number] 60 [id number]#1.0 0CD:127 [facility] Physician Referral [id number]#1.0 0CD:127 [facility] [place] 11-09-2022 Consent [id number] 05 [id number]#1. 00CD:127 [facility] In office Testingon 11-10-19 23 In office Testing [id number] 40 [id number]#1 .00CD:127 [facility] Registrationon 11-09-2022 Registration [id number] 05 [id number]#1. 00CD:127 [facility] [place] 07-27-2022 Consent [id number] 05 [id number]#1.0 0CD:127 [facility] Registrationon 07-27-2022 Registration [id number] 05 [id number]#1.0 0CD:127 [facility] [place] 07-09-2022 Consent [id number] 01 [id number]#1. 00CD:127 [facility] In office Testingon 07-09-20 22 In office Testing [id number] 01 [id number]#1. 00CD:127 [facility] Registrationon 07-09-2022 Registration [id number] 01 [id number]#1. 00CD:127 [facility] In office Testingon 07-06-20 In office Testing [id number] 05 [id number]#1. 00CD:127 [facility] GLYCOHEMOGLOBIN A1Con 2021 ADA RECOMMENDATION SEE BELOW Normal [facility] Comment on above: Result Comment: ADA RECOMMENDED LIMIT 4.0 - 6.0 ADA THERAPEUTIC TARGET < 7.0 ACTION SUGGESTED > 7.0 Performed By: #### A 1C #### [facility] [address] [address] [address] Sandor Coffman Glucose [Mass/Vol] 140 mg/dL Normal [facility] Comment on above: Performed By: #### A 1C #### [facility] [address] [address] [address] Sandor Coffman HbA1c (Bld) [Mass fraction] 6.5 % Critically high 4.5-6.2 [facility] Comment on above: Performed By: #### A 1C #### [facility] [address] [address] [address] Sandor Coffman Registrationon 05-01-2022 Registration [id number] 02 [id number]#1. 00CD:127 [facility] [place] 04-27-2022 Consent [id number] 90 [id number]#1 .00CD:127 [facility] HIP LEFT 1 OR 2 VWS WITH PEL VISon 08-27-2019 HIP LEFT 1 OR 2 VWS WITH PELVIS [facility] Department of Radiology [address] [place] [id number] ======== Patient Name: JAZMYNE PENN : 1955 Sex: M Age: Race: White Pt. Location: Patient Status: Ordered Date: 08/27/2019 9:45:00 AM Completed Date: 08/27/2019 09:44 AM Requesting Provider: LIZET LOVELACE Attending Provider: Report Copy To: Signs & Symptoms: Z96.642 Presence of left artificial hip joint I10 History: [place] Comments: , Views (X-RAY, HIP): Radiologic Protocol [...] above. Electronically signed: David Sanford. Transcribed by: [email or web address], User Resident: Electronically Signed by: DAVID SANFORD @ 08/27/2019 01:52 PM Normal [facility] Comment on above: Order Comment: , Alex ws (X-RAY, HIP): Radiologic Protocol , Views (X-RAY, HIP): Radiologic Protocol , , , Ordering Jose R - LIZET LOVELACE MD , HIP LEFT 1 OR 2 VWS WITH PEL VISon 06-18-2019 HIP LEFT 1 OR 2 VWS WITH PELVIS [facility] Department of Radiology [address] [place] [id number] ======== Patient Name: JAZMYNE PENN : 1955 Sex: M Age: Race: White Pt. Location: Patient Status: Ordered Date: 06/17/2019 3:35:00 PM Completed Date: 06/18/2019 10:30 AM Requesting Provider: LIZET LOVELACE Attending Provider: Report Copy To: Signs & Symptoms: Z96.642 Presence of left artificial hip joint I10 History: [place] Comments: , Views (X-RAY, HIP): Radiologic Protocol [...] loosening Electronically signed by:Carlos Cameron. Transcribed by: [email or web address], User Resident: Electronically Signed by: CARLOS CAMERON @ 06/18/2019 02:11 PM Normal [facility] Comment on above: Order Comment: , Alex ws (X-RAY, HIP): Radiologic Protocol , Views (X-RAY, HIP): Radiologic Protocol , , , Ordering Provider - LIZET LOVELACE MD , Encounters Encounter Date Encounter Type Care Provider Facility Start: 05-14-2024 End: 05-14-2024 ambulatory [facility] Start: 05-01-2024 Encounter for other preprocedural examination [facility] Start: 05-01-2024 End: 05-01-2024 ambulatory [facility] Start: 04-29-2024 End: 04-29-2024 ambulatory [facility] Start: 04-18-2023 End: 04-19-2023 ambulatory Tuan Lira [...] Start: 08-04-2019 End: 08-04-2019 ambulatory Peggy Muñoz Facility:[facility] Payers Date Payer Category Payer Unknown [id number] 2019 Unknown [id number] 1959 Self-pay 1955 Unknown [id number] 1955 Unknown [id number] 1955 Unknown [id number] 1955 Unknown [id number] Medicare [id number] Private Health Insurance [employer] [id number] Unknown [id number] Unknown [id number] Worker's Compensation [employer] [facility] [id number] Social History Date Type Detail [facility] Work Phone: Start: 1955 Sex Assigned At Male F 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 [facility] Evaluation note Note Date & Type Note Facility Evaluation note No assessment information availa [facility] Work Phone: Summary Purpose Family [...] and content) DATE CREATED AUTHOR 06/17/2020 [facility] DATE CREATED AUTHOR AUTHOR'S ORGANIZ ATION 07/07/2022 [facility] DATE CREATED AUTHOR AUTHOR'S ORGANIZ ATION 03/30/2023 [facility] DATE CREATED AUTHOR AUTHOR'S ORGANIZ ATION 04/20/2023 [facility] DATE CREATED AUTHOR AUTHOR'S ORGANIZ ATION 05/19/2024 [facility] Goals (unrecognized section and content) Goals [...] BE BASED ON THE PRIMARY CLINICAL RECORDS. [facility] [employer] [facility]. provides no warranty or guarantee of the accuracy or completeness of information in this document.
== END 2024-09-08 13:27 | disposition home or self-care (01) ==
LOC: CT 13:26
PROVIDERS: PCP Family Medicine; Visit Provider Orthopaedic Surgery
DX: M25.522 Pain in left elbow (principal); S52.125D Nondisplaced fracture of head of left radius, subsequent encounter for closed fracture with routine healing; S52.045D Nondisplaced fracture of coronoid process of left ulna, subsequent encounter for closed fracture with routine healing
CPT/HCPCS: 73200

== ENCOUNTER 2024-10-09 08:10 | Outpatient (RCR) | payer MEDICARE, SELFPAY | END 2024-10-11 08:23 | disposition home or self-care (01) | LOC: PT 08:10 | PROVIDERS: PCP Family Medicine; Visit Provider Orthopaedic Surgery Orthopaedic Trauma | DX: M25.522 Pain in left elbow (principal); S52.042D Displaced fracture of coronoid process of left ulna, subsequent encounter for closed fracture with routine healing; S52.122D Displaced fracture of head of left radius, subsequent encounter for closed fracture with routine healing | CPT/HCPCS: 97161 ==

== ENCOUNTER 2024-10-20 15:26 | Inpatient (IN) | payer MEDICARE, SELFPAY ==
[2024-10-20] VITALS (34 sets, daily range): BP systolic 91–178; BP diastolic 44–89; PULSE 67–79; TEMP 36.4; O2SAT 94–99; BMI 41.6; BMI 42.5
--- NOTE | 2024-10-20 15:38 | ECG_ITS ---
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 Measurements Intervals [place] Rate: 70 P: 37 MT: 170 QRS: 4 QRSD: 84 T: 65 QT: 394 QTc: 415 Interpretive Statements 1100 Sinus rhythm 1470 with occasional supraventricular premature complexes 9140 abnormal rhythm ECG Compared to ECG 03/04/2019 11:24:09 No significant changes Electronically Signed On 10-20-2024 17:44:41 EDT by TAJ OTERO M.D.
--- NOTE | 2024-10-20 15:41 | ED.GENADUL1 ---
HPI HPI - General Adult General Chief complaint: Weakness Stated complaint: WEAK & LIGHTHEADED Time Seen by Provider: 10/20/24 15:37 Source: patient Mode of arrival: ambulance Limitations: physical limitation Limitations comment: weakness History of Present Illness HPI narrative: Patient is a 68-year-old male who presents to the emergency department by ambulance for the evaluation of weakness, dry heaving and diarrhea. Patient states he was being loaded into his family car to come to the emergency department to be evaluated for abdominal pain, vomiting and diarrhea when he had a brief syncopal episode in the passenger seat. Family was unable to lift him so they called 911 to bring him to the emergency department. On arrival, he is awake and alert and oriented. He has no complaints of pain at this time. He states for the last several days he has had discomfort in the abdomen associated with dry heaving and vomiting. He denies headache, visual changes, chest pain. He has chronic shortness of breath. This patient has a history of Flores, he sees a liver specialist in [place] at [facility]. He has not required a paracentesis for 13 years. Related Data Home Medications ?Medication ?Instructions ?Recorded ?Confirmed carvedilol 6.25 mg tablet 6.25 mg PO DAILY 05/27/23 10/20/24 furosemide 20 mg tablet 20 mg PO DAILY 05/27/23 10/20/24 potassium chloride 20 mEq 20 meq PO DAILY 05/27/23 10/20/24 tablet,extended release(part/cryst) (Klor-Con M) acetaminophen 500 mg tablet (Pain 1,000 mg PO .q8hr 10/20/24 10/20/24 Reliever Extra Strength (acetaminophen)) citalopram 10 mg tablet 10 mg PO DAILY 10/20/24 10/20/24 ezetimibe 10 mg tablet 10 mg PO DAILY 10/20/24 10/20/24 spironolactone 50 mg tablet 50 mg PO QID 10/20/24 10/20/24 Previous Rx's ?Medication ?Instructions ?Recorded amino acids-protein hydrolysate 15 1 ea PO BID #2,880 mL 10/23/24 gram-100 kcal/30 mL oral liquid pkt (Pro-Stat Sugar Free) food supplemt, lactose-reduced 1 ea PO BID #5,688 mL 10/23/24 (Ensure Active Protein-Muscle oral liquid) levofloxacin 750 mg tablet 750 mg PO DAILY 7 days #7 tabs 10/23/24 rifaximin 550 mg tablet (Xifaxan) 550 mg PO BID #60 tabs 10/23/24 Allergies Allergy/AdvReac Type Severity Reaction Status Date / Time No Known Drug Allergies Allergy Verified 10/20/24 15:34 Opioid HPI Opioid Management Most Recent Opioid Data: Last Pain Scale 0 10/23/24 10:20 10/23/24 Last Pain Assessment 10/23/24 12:39 Last MAR Pain Assessment 10/22/24 04:20 Last ORT Total Score 0 10/20/24 20:36 10/20/24 Last ORT Risk Category Low Risk 10/20/24 20:36 10/20/24 Review of Systems ROS Constitutional Denies: fever or chills Ears, nose, mouth, and throat Denies: throat pain or nasal congestion Cardiovascular Denies: chest pain Respiratory Reports: shortness of breath; Denies: cough Gastrointestinal Reports: abdominal pain, nausea, vomiting and diarrhea Musculoskeletal Denies: back pain Integumentary/Breast Denies: rash Neurological Denies: headache, numbness in extremities, weakness in extremities or dizziness Hematologic/Lymphatic Denies: easy bruising or easy bleeding PFSH [facility] Medical History (Updated 10/27/24 @ 00:00 by ) Severe protein-calorie malnutrition ?E43 - Unspecified severe protein-calorie malnutrition (ICD-10) Coagulopathy ?D68.9 - Coagulation defect, unspecified (ICD-10) Hyperbilirubinemia ?E80.6 - Other disorders of bilirubin metabolism (ICD-10) Lactic acidosis ?E87.20 - Acidosis, unspecified (ICD-10) Hyperkalemia ?E87.5 - Hyperkalemia (ICD-10) Thrombocytopenia ?D69.6 - Thrombocytopenia, unspecified (ICD-10) Acute pancreatitis ?K85.90 - Acute pancreatitis without necrosis or infection, unspecified (ICD-10) Cholelithiasis ?K80.20 - Calculus of gallbladder without cholecystitis without obstruction (ICD-10) Cirrhosis ?K74.60 - Unspecified cirrhosis of liver (ICD-10) Acute kidney injury superimposed on stage 1 chronic kidney disease ?N17.9 - Acute kidney failure, unspecified (ICD-10) ?N18.1 - Chronic kidney disease, stage 1 (ICD-10) Acute UTI ?N39.0 - Urinary tract infection, site not specified (ICD-10) Nausea vomiting and diarrhea ?R11.2 - Nausea with vomiting, unspecified (ICD-10) ?R19.7 - Diarrhea, unspecified (ICD-10) Hypovolemia ?E86.1 - Hypovolemia (ICD-10) Syncope ?R55 - Syncope and collapse (ICD-10) Dehydration ?E86.0 - Dehydration (ICD-10) Social History Smoking status: Light tobacco smoker Highest level of school completed/degree received: high school graduate Little interest or pleasure in doing things: not at all Feeling down, depressed, or hopeless: not at all Exam Narrative Exam Narrative: Gen.: Awake, alert, in no distress Head: Normocephalic, atraumatic ENT: Moist mucous membranes Respiratory: No respiratory distress, lungs clear bilaterally Cardio: Regular rate and rhythm Gastrointestinal: Abdomen is soft, nondistended and nontender to palpation Extremities: Moves extremities equally, no injuries noted Psych: Normal mood and affect Neuro: No focal neuro deficit Skin: Warm, dry, intact Constitutional Vital Signs, click to edit/add: Last Vital Signs Temp 98.1 F 10/23/24 11:38 Pulse 97 H 10/23/24 11:38 Resp 18 10/23/24 11:38 BP 114/78 10/23/24 11:38 Pulse Ox 94 L 10/23/24 11:38 O2 Del Method Room Air 10/23/24 11:38 Course Course Hospital Course: Patient was seen in the emergency room after increasing weakness and altered mental status, workup in the ER Respiratory distress, mild hypotension, white blood cell count normal but left shift consistent with bacterial process, thrombocytopenia, hyperkalemia, acute kidney injury stage: With lactic acidosis related to either acute UTI or acute ascending cholangitis. With abdominal tenderness on my exam started on more broad-spectrum antibiotics, the liver function test slowly improved throughout the hospitalization, yesterday had a spike in his lipase we maintain n.p.o. status 3 yesterday, lipase is better today, final sensitivities and UTI are still pending, if he tolerates eating with no increase in abdominal pain he can be discharged to rehab. Medications see list, follow-up with me in the office after discharge from rehab Vital Signs Vital signs: Vital Signs Temperature 97.6 F 10/20/24 15:31 Pulse Rate 68 10/20/24 15:31 Respiratory Rate 18 10/20/24 15:31 Blood Pressure 112/62 10/20/24 15:31 Pulse Oximetry 99 10/20/24 15:31 Oxygen Delivery Method Room Air 10/20/24 15:31 Temperature 98.1 F 10/23/24 11:38 Pulse Rate 97 H 10/23/24 11:38 Respiratory Rate 18 10/23/24 11:38 Blood Pressure 114/78 10/23/24 11:38 Pulse Oximetry 94 L 10/23/24 11:38 Oxygen Delivery Method Room Air 10/23/24 11:38 Medical Decision Making MDM Narrative Medical decision making narrative: Patient was treated with fluids from EMS, he received a liter of fluid with 4 mg IV Zofran. He did not require any pain medication while in the ER. He is hemodynamically stable, labs show an increase in bilirubin, LFTs are chronically elevated. Lipase is mildly elevated but not 3 times the upper limit to account for acute pancreatitis. CT of the brain and chest x-ray are unremarkable. EKG with no evidence of STEMI. Lactic acid was elevated. Suspect the patient had a syncopal episode from poor oral intake, hypovolemia. Repeat troponin and lactic acid are pending at this time and the patient will be admitted to Dr. Muñoz for further evaluation and treatment. Stable at time of admission at this time. I spoke to JIAN Tang for the hospitalist service for admission, she requested I speak with GI as the patient has a history of liver dysfunction and bilirubin is increasing. His LFTs have globally decreased from previous. Lipase is stable, minimally elevated. I discussed the case with Dr. Velasco at [facility] for GI which is the service that the patient is established with. She stated that the patient does not require any emergent transfer to [facility] and will not be a candidate for any emergent intervention, he has no evidence of acute process, likely worsening bilirubin secondary to his cirrhosis. His hemoglobin is stable and he has no evidence of active bleeding to make him a candidate for a transfer. Patient and family are comfortable with treatment plan and patient will be admitted for observation for syncopal episode, dehydration and hypovolemia. SUPERVISED APC VISIT, PHYSICIAN ATTESTATION: Based on the medical record the care appears appropriate. ? Medical Records Medical records reviewed: Yes I reviewed the patient's medical records Lab Data Lab results reviewed: Yes I reviewed the patient's lab results Labs: Lab Results 10/20/24 10/20/24 10/20/24 Range/Units 16:22 18:10 18:20 WBC 6.5 (4.0-11.0) 10^3/uL RBC 4.40 L (4.70-6.10) 10^6/uL Hgb 14.5 (14.0-18.0) g/dL Hct 43.6 (42.0-54.0) % MCV 99.1 H (80.0-94.0) fL MCH 33.0 (25.9-34.0) pg MCHC 33.3 (29.9-35.2) g/dL RDW 16.5 H (11.0-15.0) % Plt Count 142 L (150-450) 10^3/uL MPV 10.1 (9.5-13.5) fL Neut % (Auto) 84.0 H (43.0-75.0) % Lymph % (Auto) 6.2 L (20.5-60.0) % [place] % (Auto) 8.4 (1.7-12.0) % Eos % (Auto) 0.3 L (0.9-7.0) % Baso % (Auto) 0.2 (0.2-2.0) % Neut # (Auto) 5.4 (1.4-6.5) 10^3/uL Lymph # (Auto) 0.4 L (1.2-3.8) 10^3/uL [place] # (Auto) 0.5 (0.3-0.8) 10^3/uL Eos # (Auto) 0.0 (0.0-0.7) 10^3/uL Baso # (Auto) 0.0 (0.0-0.1) 10^3/uL Abs Immat Gran (auto) 0.06 H (0.00-0.03) 10^3/uL Imm/Tot Granulo (auto) 0.9 H (0.0-0.5) % PT 13.5 H (9.0-11.6) sec INR 1.31 VBG pH 7.362 (7.330-7.430) VBG pCO2 46.4 (40.0-52.0) mmHg Sodium 136 (136-145) mmol/L Potassium 5.3 H (3.5-5.1) mmol/L Chloride 104 (98-107) mmol/L Carbon Dioxide 25.9 (21.0-32.0) mmol/L Anion Gap 11.4 BUN 39.0 H (7.0-18.0) mg/dL Creatinine 1.57 H (0.70-1.30) mg/dL Est GFR ( Amer) 54 L (>=60 mL/min/1.73m^2) Est GFR (Non-Af Amer) 44 L (>=60 mL/min/1.73m^2) BUN/Creatinine Ratio 24.8 Glucose 114 H (74-106) mg/dL Lactate 3.4 H* 2.2 H* (0.4-2.0) mmol/L Calcium 9.7 (8.5-10.1) mg/dL Magnesium (1.8-2.4) mg/dL Total Bilirubin 4.8 H (0.2-1.0) mg/dL Direct Bilirubin (0.0-0.2) mg/dL AST 112 H (15-37) U/L ALT 106 H (16-63) U/L Alkaline Phosphatase 295 H (46-116) U/L Troponin I High Sens 19.4 21.4 (4.0-76.1) pg/mL C-Reactive Protein 1.91 H (<=0.50) mg/dL NT-Pro-B Natriuret Pep 371.0 (<=900.0) pg/mL Total Protein 5.5 L (6.4-8.2) g/dL Albumin 1.8 L (3.4-5.0) g/dL Globulin 3.7 g/dL Albumin/Globulin Ratio 0.5 Lipase 101.0 H (16.0-77.0) U/L Urine Color Yellow (YELLOW) Urine Clarity Clear (CLEAR) Urine pH 6.0 (5.0-9.0) Ur Specific [place] 1.015 (1.005-1.025) Urine Protein Negative (NEG/TRACE) mg/dL Urine Glucose (UA) Negative (NEGATIVE) mg/dL Urine Ketones Negative (NEGATIVE) mg/dL Urine Occult Blood Small A (NEGATIVE) Urine Nitrite Negative (NEGATIVE) Urine Bilirubin Negative (NEGATIVE) Urine Urobilinogen 2.0 A (0.2-1.0) EU/dL Ur Leukocyte Esterase Trace A (NEGATIVE) Urine RBC 0-2 (0-2) #/HPF Urine WBC 5-10 A (NONE SEEN) #/HPF Ur Squamous Epith Cells None seen (NONE/RARE) #/LPF Urine Crystals None seen (None Seen) #/HPF Urine Bacteria Large A (NONE SEEN) #/HPF Urine Casts Seen A (NONE SEEN) #/LPF Hyaline Casts Rare Urine Mucus None seen (NONE SEEN) Ur Culture Indicated? [place]-[facility] [place] Influ[place] Type A Ag Influenza Type B Ag SARS-CoV-2 Ag (CV2AG) (NEGATIVE) 10/20/24 10/21/24 Range/Units 20:25 06:00 WBC 7.1 (4.0-11.0) 10^3/uL RBC 4.03 L (4.70-6.10) 10^6/uL Hgb 13.3 L (14.0-18.0) g/dL Hct 39.7 L (42.0-54.0) % MCV 98.5 H (80.0-94.0) fL MCH 33.0 (25.9-34.0) pg MCHC 33.5 (29.9-35.2) g/dL RDW 16.8 H (11.0-15.0) % Plt Count 123 L (150-450) 10^3/uL MPV 10.1 (9.5-13.5) fL Neut % (Auto) 81.5 H (43.0-75.0) % Lymph % (Auto) 6.2 L (20.5-60.0) % [place] % (Auto) 10.3 (1.7-12.0) % Eos % (Auto) 1.0 (0.9-7.0) % Baso % (Auto) 0.0 L (0.2-2.0) % Neut # (Auto) 5.8 (1.4-6.5) 10^3/uL Lymph # (Auto) 0.4 L (1.2-3.8) 10^3/uL [place] # (Auto) 0.7 (0.3-0.8) 10^3/uL Eos # (Auto) 0.1 (0.0-0.7) 10^3/uL Baso # (Auto) 0.0 (0.0-0.1) 10^3/uL Abs Immat Gran (auto) 0.07 H (0.00-0.03) 10^3/uL Imm/Tot Granulo (auto) 1.0 H (0.0-0.5) % PT (9.0-11.6) sec INR VBG pH (7.330-7.430) VBG pCO2 (40.0-52.0) mmHg Sodium 137 (136-145) mmol/L Potassium 4.7 (3.5-5.1) mmol/L Chloride 106 (98-107) mmol/L Carbon Dioxide 26.2 (21.0-32.0) mmol/L Anion Gap 9.5 BUN 41.0 H (7.0-18.0) mg/dL Creatinine 1.36 H (0.70-1.30) mg/dL Est GFR ( Amer) >60 (>=60 mL/min/1.73m^2) Est GFR (Non-Af Amer) 52 L (>=60 mL/min/1.73m^2) BUN/Creatinine Ratio 30.1 Glucose 57 L (74-106) mg/dL Lactate (0.4-2.0) mmol/L Calcium 9.0 (8.5-10.1) mg/dL Magnesium 1.9 (1.8-2.4) mg/dL Total Bilirubin 3.1 H (0.2-1.0) mg/dL Direct Bilirubin 1.6 H* (0.0-0.2) mg/dL AST 198 H (15-37) U/L ALT 119 H (16-63) U/L Alkaline Phosphatase 266 H (46-116) U/L Troponin I High Sens (4.0-76.1) pg/mL C-Reactive Protein (<=0.50) mg/dL NT-Pro-B Natriuret Pep (<=900.0) pg/mL Total Protein 5.0 L (6.4-8.2) g/dL Albumin 1.6 L (3.4-5.0) g/dL Globulin 3.4 g/dL Albumin/Globulin Ratio 0.5 Lipase 145.0 H (16.0-77.0) U/L Urine Color (YELLOW) Urine Clarity (CLEAR) Urine pH (5.0-9.0) Ur Specific [place] (1.005-1.025) Urine Protein (NEG/TRACE) mg/dL Urine Glucose (UA) (NEGATIVE) mg/dL Urine Ketones (NEGATIVE) mg/dL Urine Occult Blood (NEGATIVE) Urine Nitrite (NEGATIVE) Urine Bilirubin (NEGATIVE) Urine Urobilinogen (0.2-1.0) EU/dL Ur Leukocyte Esterase (NEGATIVE) Urine RBC (0-2) #/HPF Urine WBC (NONE SEEN) #/HPF Ur Squamous Epith Cells (NONE/RARE) #/LPF Urine Crystals (None Seen) #/HPF Urine Bacteria (NONE SEEN) #/HPF Urine Casts (NONE SEEN) #/LPF Hyaline Casts Urine Mucus (NONE SEEN) Ur Culture Indicated? Influenza Type A Ag Negative Influenza Type B Ag Negative SARS-CoV-2 Ag (CV2AG) Negative (NEGATIVE) Imaging Data CT scan - abdomen: Attestation: I have reviewed the pertinent imaging results. ECG Data Attestation: I personally reviewed and interpreted this ECG as follows: (Normal sinus rhythm at a rate of 70, no acute ST elevation or ectopy. EKG reviewed by attending physician) Discharge Plan Discharge Chief Complaint: Weakness Clinical Impression: Dehydration, Syncope, Hypovolemia, Nausea vomiting and diarrhea, Acute UTI Patient Disposition: Admitted as Observation Time of Disposition Decision: 18:44 Condition: Good Discharge Date/Time: 10/20/24 19:48
[2024-10-20] MEDS: ONDANSETRON PF 4 MG/2 ML VIAL IV (16:15)
[2024-10-20 16:35] LABS: Basophils Percent Auto 0.2 % (0.2-2.0); Eosinophils Percent Auto 0.3 % (0.9-7.0); Hematocrit 43.6 % (42.0-54.0); Hemoglobin 14.5 g/dL (14.0-18.0); Immature Granulocytes Abs Auto 0.06 10^3/uL (0.00-0.03); Immature Granulocytes Pct Auto 0.9 % (0.0-0.5); Lymphocytes Absolute Auto 0.4 10^3/uL (1.2-3.8); Lymphocytes Percent Auto 6.2 % (20.5-60.0); Mean Corpuscular HGB Conc 33.3 g/dL (29.9-35.2); Mean Corpuscular Volume 99.1 fL (80.0-94.0); Mean Platelet Volume 10.1 fL (9.5-13.5); Monocytes Absolute Auto 0.5 10^3/uL (0.3-0.8); Monocytes Percent Auto 8.4 % (1.7-12.0); Neutrophils Absolute Auto 5.4 10^3/uL (1.4-6.5); PCO2 VBG 46.4 mmHg (40.0-52.0); Platelet Count 142 10^3/uL (150-450); Red Cell Distribution Width 16.5 % (11.0-15.0); White Blood Count 6.5 10^3/uL (4.0-11.0); pH VBG 7.362 (7.330-7.430)
[2024-10-20 16:57] LABS: INR 1.31; Prothrombin Time 13.5 sec (9.0-11.6)
[2024-10-20 17:05] LABS: Alanine Aminotransferase 106 U/L (16-63); Albumin Globulin Ratio 0.5; Albumin Level 1.8 g/dL (3.4-5.0); Alkaline Phosphatase 295 U/L (46-116); Anion Gap 11.4; Aspartate Amino Transferase 112 U/L (15-37); BUN Creatinine Ratio 24.8; Bilirubin Total 4.8 mg/dL (0.2-1.0); Calcium 9.7 mg/dL (8.5-10.1); Carbon Dioxide 25.9 mmol/L (21.0-32.0); Chloride 104 mmol/L (98-107); Estimated GFR (African America 54 (>=60 mL/min/1.73m^2); Estimated GFR (Non-African Ame 44 (>=60 mL/min/1.73m^2); Globulin 3.7 g/dL; Glucose 114 mg/dL (74-106); Potassium 5.3 mmol/L (3.5-5.1); Sodium 136 mmol/L (136-145); Total Protein 5.5 g/dL (6.4-8.2); Troponin I High Sensitivity 19.4 pg/mL (4.0-76.1)
[2024-10-20 17:27] LABS: Lactate/Lactic Acid 3.4 mmol/L (0.4-2.0)
[2024-10-20 18:41] LABS: Bilirubin Urine NEGATIVE (NEGATIVE); Blood Urine SMALL (NEGATIVE); Clarity Urine CLEAR (CLEAR); Color Urine YELLOW (YELLOW); Glucose Urine UA NEGATIVE (NEGATIVE); Ketones Urine NEGATIVE (NEGATIVE); Leukocyte Esterase Urine TRACE (NEGATIVE); Nitrite Urine NEGATIVE (NEGATIVE); Protein Urine NEGATIVE (NEG/TRACE); Specific Gravity Urine 1.015 (1.005-1.025)
[2024-10-20 18:47] LABS: Troponin I High Sensitivity 21.4 pg/mL (4.0-76.1)
[2024-10-20 18:48] LABS: Bacteria Urine LARGE #/HPF (NONE SEEN); Cast Seen? SEEN #/LPF (NONE SEEN); Crystals Seen? None Seen #/HPF (None Seen); Hyaline Casts Urine RARE; Mucus Urine NONE SEEN (NONE SEEN); RBC Urine 0-2 #/HPF (0-2); Squamous Epithelial Cell Urine NONE SEEN #/LPF (NONE/RARE); Urine Culture Indicated YES-FRMC
[2024-10-20 18:57] LABS: Lactate/Lactic Acid 2.2 mmol/L (0.4-2.0)
[2024-10-20] MEDS: CEFTRIAXONE 2,000 MG in 0.9 % SODIUM CHLORIDE 100 ML 200 MG IV (19:15)
--- OUTSIDE RECORDS SUMMARY | 2024-10-20 19:55 | XMS_ITS | CCD ---
Author Organization [facility] Care Team Providers Care Granulator Tender Name Role Phone RASHAAD, DR WOODS Admitting Unavailable RINKUY, DR WOODS Attending Unavailable HOY, DR WOODS Primary Care Unavailable HOY, DR WOODS Admitting Unavailable HOY, DR WOODS Attending Unavailable RINKUY, DR WOODS Primary Care Unavailable HOY, DR WOODS Admitting Unavailable HOY, DR WOODS Attending Unavailable HOY, DR WOODS Primary Care Unavailable HOY, DR WOODS Consulting Unavailable Truman FUNES Attending Unavailable Nat MURRAY Attending Unavailable TREVOR, Nat Humphreys Attending Unavailable Truman FUNES Attending Unavailable Nat MURRAY Attending Unavailable Tuan Lira Attending Unavailable TREVOR, Nat Humphreys Attending Unavailable Nat MURRAY Admitting Unavailable SHANNA, TAJ Admitting Unavailable SHANNA, TAJ Attending Unavailable TAJ OTERO Referring Unavailable SHANNA, TAJ Attending Unavailable MOQUEENIE, TAJ Referring Unavailable Peggy Muñoz MD Primary Care Provider [phone] Geoffrey Ibrahim DO Attending Provider [phone] Peggy Muñoz MD Primary Care Provider [phone] Geoffrey Ibrahim DO Attending Provider Peggy Muñoz Primary Care Unavailable Geoffrey Ibrahim Attending Unavailable Geoffrey Ibrahim Admitting Unavailable Geoffrey Ibrahim Admitting Unavailable Peggy Muñoz Primary Care Unavailable Geoffrey Ibrahim Attending Unavailable Peggy Muñoz Primary Care Unavailable Geoffrey Ibrahim Attending Unavailable Geoffrey Ibrahim Admitting Unavailable Medications Current Medications Medication Drug Class(es) Dates Sig (Normalized) Sig (Original) acetaminophen 500 mg oral tablet (3 sources) Start: 09-22-2024 take 2 tablets by mouth every eight hours Acetaminophen (Tylenol Extra Strength) 500 mg tablet Active 1000 MG PO Every 8 hours 84 14 September 22, 2024 1:00am ascorbic acid 250 mg oral tablet (4 sources) Vitamin C Start: 09-21-2024 take 1 tablet by mouth once daily Ascorbic Acid (Vitamin C) (Vitamin C) 250 mg tablet Active 250 MG PO Daily September 21, 2024 1:00am aspirin 81 mg delayed release oral tablet (3 sources) Platelet Aggregation Inhibitor, Nonsteroidal Anti-inflammatory Drug Start: 09-22-2024 Aspirin (Mihaela Low Dose Aspirin) 81 mg tablet,delayed release (DR/EC) Active 81 MG PO Daily September 22, 2024 1:00am carvedilol 6.25 mg oral tablet (6 sources) alpha-Adrenergic Elana, beta-Adrenergic Elana Start: 06-09-2019 take 1 tablet by mouth twice daily Carvedilol (Coreg) 6.25 mg Tablet Active 6.25 MG PO Twice daily June 09, 2019 1:00am cholecalciferol 0.05 mg oral capsule (4 sources) Vitamin D Start: 09-21-2024 take 1 capsule by mouth once daily Cholecalciferol (Vitamin D3) (D3-2000) 50 mcg (2,000 unit) capsule Active 50 MCG PO Daily September 21, 2024 1:00am ferrous sulfate 325 mg oral tablet (6 sources) Start: 07-24-2019 take 1 tablet by mouth twice daily Ferrous Sulfate 325 mg (65 mg iron) Tablet Active 325 MG PO Twice daily July 24, 2019 1:00am Start: 07-24-2019 take 1 tablet by [facility] three times daily Ferrous Sulfate 325 mg (65 mg iron) Tablet Active 325 MG PO Three times daily July 24, 2019 12:00am furosemide 20 mg oral tablet (6 sources) Loop Diuretic Start: 06-09-2019 Furosemide (Lasix) 20 mg Tablet Active 20 MG PO Q48H June 09, 2019 1:00am glimepiride 4 mg oral tablet (4 sources) Sulfonylurea Start: 09-21-2024 take 1 tablet by mouth once daily Glimepiride 4 mg tablet Active 4 MG PO Daily September 21, 2024 1:00am potassium chloride 20 meq powder for oral solution (6 sources) Start: 06-09-2019 take 20 mEq by mouth once daily Potassium Chloride (Klor-Con) 20 mEq Packet Active 20 MEQ PO Daily June 09, 2019 1:00am spironolactone 25 mg oral tablet (6 sources) Aldosterone Antagonist Start: 06-09-2019 take 2 tablets by mouth twice daily Spironolactone 25 mg Tablet Active 50 MG PO Twice daily June 09, 2019 1:00am Start: 06-09-2019 take 1 tablet by rojas th four times daily Spironolactone 25 mg Tablet Active 25 MG PO Four times daily June 09, 2019 12:00am traMADol hydrochloride 50 mg oral tablet (3 sources) Opioid Agonist Start: 09-22-2024 take 1 tablet by mouth every four hours as needed for pain Tramadol 50 mg tablet Active 50 MG PO Q4H as needed for pain 30 September 22, 2024 1:00am vitamin B12 (6 sources) Vitamin B12 Start: 07-24-2019 Cyanocobalamin (Vitamin B-12) (Vitamin B-12) 500 mcg Tablet Active 5000 MCG PO Daily July 24, 2019 1:00am Start: 07-24-2019 Cyanocobalamin (Vitamin B-12) (Vitamin B-12) 500 mcg Tablet Active 5000 MCG PO Daily July 24, 2019 12:00am Start: 07-24-2019 take 1 tablet by rojas th once daily Cyanocobalamin (Vitamin B-12) (Vitamin B-12) 500 mcg Tablet Active 500 MCG PO Daily July 24, 2019 12:00am zinc sulfate 220 mg oral tablet (6 sources) Start: 06-09-2019 take 1 tablet by mouth twice daily Zinc Sulfate 220 mg Tablet Active 220 MG PO Twice daily June 09, 2019 1:00am Completed/Discontinued Medications Medication Drug Class(es) Dates Sig (Normalized) Sig (Original) canagliflozin 100 mg oral tablet (6 sources) Sodium-Glucose Cotransporter 2 Inhibitor Start: 06-09-2019 End: 09-21-2024 take 1 tablet by mouth once daily Canagliflozin (Invokana) 100 mg Tablet Discontinued 100 MG PO Daily June 09, 2019 1:00am September 21, 2024 9:37am lisinopril 2.5 mg oral tablet (6 sources) Angiotensin Converting Enzyme Inhibitor Start: 06-09-2019 End: 09-21-2024 take 1 tablet by mouth once daily Lisinopril 2.5 mg Tablet Discontinued 2.5 MG PO Daily June 09, 2019 1:00am September 21, 2024 9:36am pioglitazone 15 mg oral tablet (6 sources) Peroxisome Proliferator Receptor alpha Agonist, Peroxisome Proliferator Receptor gamma Agonist, Thiazolidinedione Start: 06-09-2019 End: 09-21-2024 take 1 tablet by mouth once daily Pioglitazone (Actos) 15 mg Tablet Discontinued 15 MG PO Daily June 09, 2019 1:00am September 21, 2024 9:36am Problems Problem Classification Problem Date Documented Date Episodic/Chronic Deficiency and other anemia (6 sources) Pancytopenia; Translations: [Other pancytopenia] 06-09-2019 Chronic Diabetes mellitus without complication (4 sources) Type 2 diabetes mellitus without complications; Translations: [TYPE 2 DM WITHOUT COMPLICATIONS] Onset: 07-02-2022 Chronic Disorders of lipid metabolism (2 sources) Mixed hyperlipidemia; Translations: [Mixed hyperlipidemia] Onset: 04-29-2024 Chronic Essential hypertension (2 sources) Essential (primary) hypertension; Translations: [Essential (primary) hypertension] Onset: 04-29-2024 Chronic Fracture of upper limb (20 sources) Fracture of coronoid process of ulna; Translations: [Displaced fracture of coronoid process of left ulna, initial encounter for closed fracture] Onset: 09-22-2024 09-18-2024 Episodic Hepatitis (6 sources) Cirrhosis - non-alcoholic; Translations: [Nonalcoholic steatohepatitis (VELOZ)] 06-09-2019 Chronic Other lower respiratory disease (2 sources) Shortness of breath; Translations: [Shortness of breath] Onset: 05-05-2024 Episodic Other screening for suspected conditions (not mental disorders or infectious disease) (4 sources) Abnormal findings on diagnostic imaging of heart and coronary circulation; Translations: [Abnormal result of other cardiovascular function study] Onset: 05-01-2024 Episodic Residual codes; unclassified (2 sources) Other specified postprocedural states; Translations: [Other postprocedural status] 10-07-2024 Episodic Results Test Name Value Interpretation Reference Range Facility X-ray reportOrdered By: Steven Rock on 10-07-2024 Study report [facility] [address] [place] [address] XRay Report Signed Patient: Jazmyne Penn MR#: [id number] : 1955 Acct:[id number] Age/Sex: 68 / M ADM Date: 5 Loc: [facility] Room: Type: [facility] CLI Attending Dr: Geoffrey Ibrahim DO Copies to: Geoffrey Ibrahim DO~ Ordering Provider: Geoffrey Ibrahim DO Date of Service: 10/07/24 XR/XR elbow LT 2V: S52.122A - Displaced fracture of head of left radius, ini... LEFT ELBOW - 3 CLINICAL HISTORY: Follow-up radial head arthroplasty COMPARISON: 09/22/2024 FINDINGS: Prior radial head head arthroplasty. Alignment is anatomic. No loosening or hardware failure. Mild degenerative changes elsewhere within the elbow. No fractures or dislocation. XR/XR elbow LT 2V IMPRESSION: Stable postsurgical changes without hardware failure. Impression dictated by: Lamont Rock M.D.10/07/2024 2:30 PM Dictation Location: [place] [address] Transcribed By: [facility] 10/07/24 1430 Dictated By: Lamont Rock MD 10/07/24 1429 Signed By: 10/07/24 1430 [facility] Work Phone: XR elbow LT 2Von 10-07-2024 XR elbow LT 2V [facility] [address] [place] [address] XRay Report Signed Patient: Jazmyne Penn MR#: [id number] : 1955 Acct:[id number] Age/Sex: 68 / M ADM Date: 10/07/24 Loc: [facility] Room: Type: [facility] CLI Attending Dr: Geoffrey Ibrahim DO Copies to: Geoffrey Ibrahim DO Ordering Provider: Geoffrey Ibrahim DO Date of Service: 10/07/24 XR/XR elbow LT 2V: S52.122A - Displaced fracture of head of left radius, ini... LEFT ELBOW - 3 CLINICAL HISTORY: Follow-up radial head arthroplasty COMPARISON: 09/22/2024 FINDINGS: Prior radial head head arthroplasty. Alignment is anatomic. No loosening or hardware failure. Mild degenerative changes elsewhere within the elbow. No fractures or dislocation. XR/XR elbow LT 2V IMPRESSION: Stable postsurgical changes without hardware failure. Impression dictated by: Lamont Rock M.D.10/07/2024 2:30 PM Dictation Location: [place] [address] Transcribed By: GODFREY 10/07/24 1430 Dictated By: Lamont Rock MD 10/07/24 1429 Signed By: 10/07/24 1430 Normal [facility] Glucose Glucometer (dC) [M ass/Vol]Ordered By: Geoffrey Ibrahim on 09-22-2024 Glucose [Mass/Vol] Capillary blood glucose measurement by glucometer (mass/volume) [facility] Comment on above: Random Glucose Refer ence Range is dependent on time and content of last meal. Glucose of more than 200 mg/dL in a nonstressed, ambulatory subject supports the diagnosis of Diabetes Mellitus. Glucose Poct Glucometerson 0 09-22-2024 Commemt1 Glu2: Cleaned Meter Normal [facility] Comment on above: Result Comment: PERF ORMED BY: [facility] [address] [address] PATHOLOGIST OCCUPATIONAL THERAPIST PER DIEM LEANDRA WALSH M.D. Performed By: #### G LULS #### Point of Care testing , Glucose [Mass/Vol] 115 mg/dL Normal [facility] Comment on above: Result Comment: [facility] Glucose Reference Range is dependent on time and content of last meal. Glucose of more than 200 mg/dL in a nonstressed, ambulatory subject supports the diagnosis of Diabetes Mellitus. Performed By: #### G LULS #### Point of Care testing , Glucose [Mass/Vol] 126 mg/dL Normal [facility] Comment on above: Result Comment: [facility] Glucose Reference Range is dependent on time and content of last meal. Glucose of more than 200 mg/dL in a nonstressed, ambulatory subject supports the diagnosis of Diabetes Mellitus. PERFORMED BY: [facility] [address] [place] [address] PATHOLOGIST OCCUPATIONAL THERAPIST PER DIEM LEANDRA WALSH M.D. Performed By: #### G LULS #### Point of Care testing , Levy 09-22-2024 L - -------- Specimen: [id number] Received: 09/22/24 Status: ARYA Vargas Num: [id number] Spec Type: Surgical Subm Dr: Geoffrey Ibrahim DO Tissues: A Joint/Knee (LEFT ARM BONE AND TISSUE) Procedures: HE/2, Gross/Micro L4, Decalcification -------- Age/ Patient Sex Location Account Attending Physician -------- Jazmyne Penn 68/M [place] [id number] Geoffrey Ibrahim DO -------- SPEC NUM: [id number] RECD: 09/22/24 STATUS: ARYA VARGAS NUM: [id number] NAE: 09/22/24-[address]: Geoffrey Ibrahim DO ENTERED: 09/22/24 [facility] TYPE: Surgical DEPT: S ORDERED: HE/2, Gross/Micro L4, Decalcification ORDERED: HE/2, Gross/Micro L4, Decalcification Pathological Diagnosis Left elbow bone and soft tissue, Left radial head arthroplasty: -Consistent with chronic comminuted fracture of the radial head and neck bone, demonstrating moderate bony remodelings of the fractured lines to the articular surface and the irregular ragged resection neck surface, and with markedly associated chondroid metaplasia, and patchy mild surrounding intra medullary fibrosis are also apparent Clinical Information Fracture L radial head Gross Description Part A is received in formalin labeled with the patients name, date of , and bone and tissue are mendoza-cordero, domed bone fragments, 3.5 x 2.5 x 2 cm in aggregate. Some of the fragments display a smooth and glistening capsular surface. The subarticular capsular surfaces range from 0.1 to 0.3 cm in thickness. The medullary bone is cordero, firm and uniform. Welder Oxyhydrogen sections are submitted in A1?A2 after decalcification in rapid Nicolas immuno. (2, , [id number])JACK -------- Specimen: [id number] Received: 09/22/24 Status: ARYA Vargas Num: [id number] Spec Type: Surgical Subm Dr: Geoffrey Ibrahim DO Tissues: A Joint/Knee (LEFT ARM BONE AND TISSUE) Procedures: HE/2, Gross/Micro L4, Decalcification -------- Patient: Jazmyne Penn [id number] (Continued) -------- Specimen: [id number] Received: 09/22/24 (Continued) Signed (signature on file) Lino Coffman MD 09/25/24 1821 -------- Specimen: [id number] Received: 09/22/24 Status: ARYA Vargas Num: [id number] Spec Type: Surgical Subm Dr: Geoffrey Ibrahim, Tissues: A Joint/Knee (LEFT ARM BONE AND TISSUE) Procedures: HE/2, Gross/Micro L4, Decalcification -------- Patient: Jazmyne Penn [id number] (Continued) -------- Specimen: [id number] Received: 09/22/24 (Continued) Microscopic Description Microscopic examinations are performed supporting the above interpretation CPT Codes 40167 [id number] -------- -------- Specimen: [id number] Received: 09/22/24 Status: ARYA Vargas Num: [id number] Spec Type: Surgical Subm Dr: Geoffrey Ibrahim DO Tissues: A Joint/Knee (LEFT ARM BONE AND TISSUE) Procedures: HE/2, Gross/Micro L4, Decalcification -------- Patient: Jazmyne Penn [id number] (Continued) -------- Signed (signature on file) Lino Coffman MD 09/25/24 1821 Normal [facility] No Panel InformationOrdered By: Geoffrey Ibrahim on 09-22-2024 Bedside Glucose Comment Glu2: cleaned meter [facility] XR elbow LT min 3V*on 2024 XR elbow LT min 3V* [facility] [address] XRay Report Signed Patient: Jazmyne Penn MR#: [id number] : 1955 Acct:[id number] Age/Sex: 68 / M ADM Date: 09/22/24 Loc: [place] Room: Type: [facility] Attending Dr: Geoffrey Ibrhaim DO Copies to: Geoffrey Ibrahim DO Ordering Provider: Geoffrey Ibrahim DO Date of Service: 09/22/24 XR/XR elbow LT min 3V*: / XR elbow LT min 3V* 09/22/2024 2:51 PM SIGNS AND SYMPTOMS: Radial head arthroplasty PROTOCOL: Intraoperative views of the left elbow COMPARISON: 09/01/2024 FINDINGS: Intraoperative views of the left elbow demonstrate arthroplasty hardware placement involving the radial head. Cumulative Air Kerma in mGy: 0.937 mGy XR/XR elbow LT min 3V* IMPRESSION: Intraoperative views of the left elbow demonstrate arthroplasty hardware placement involving the radial head. Impression dictated by: Clark Méndez M.D.09/22/2024 5:18 PM Dictation Location: [place] [address] Transcribed By: [facility] 09/22/241717 Dictated By: Clark Méndez II, MD 09/22/241716 Signed By: 09/22/241717 Normal [facility] Alanine aminotransferase [En zymatic activity/volume] in Serum or PlasmaOrdered By: Geoffrey Ibrahim on 09-21-2024 ALT [Catalytic activity/Vol] Alanine aminotransferase [Enzymatic activity/volume] in Serum or Plasma High 7-52 [facility] Albumin [Mass/volume] in Ser um or Plasma by Bromocresol green (BCG) dye binding methoOrdered By: Geoffrey Ibrahim on 09-21-2024 Albumin BCG dye [Mass/Vol] Albumin [Mass/volume] in Serum or Plasma by Bromocresol green (BCG) dye binding metho Low 3.5-5.7 [facility] Alkaline phosphatase [Enzyma tic activity/volume] in Serum or PlasmaOrdered By: Geoffrey Ibrahim on 09-21-2024 ALP [Catalytic activity/Vol] Alkaline phosphatase [Enzymatic activity/volume] in Serum or Plasma High 34-104 [facility] Appearance of UrineOrdered B y: Geoffrey Ibrahim on 09-21-2024 Appearance (U) Urine appearance Clear [facility] Aspartate aminotransferase [ Enzymatic activity/volume] in Serum or PlasmaOrdered By: Geoffrey Ibrahim on 09-21-2024 AST [Catalytic activity/Vol] Aspartate aminotransferase [Enzymatic activity/volume] in Serum or Plasma High 13-39 [facility] Basophils Auto (Bld) [#/Vol] Ordered By: Geoffrey Ibrahim on 09-21-2024 Basophils (Bld) [#/Vol] Automated basoph il count [facility] Basophils/100 WBC Auto (Bld) Ordered By: Geoffrey Ibrahim on 09-21-2024 Basophils/100 WBC (Bld) Automated basophil % [facility] Bilirubin Test strip Ql (U)O rdered By: Geoffrey Ibrahim on 09-21-2024 Bilirubin Ql (U) Bilirubin.total [Presence] in Urine by Test strip Negative [facility] Bilirubin.total [Mass/volume ] in Serum or PlasmaOrdered By: Geoffrey Ibrahim on 09-21-2024 Bilirubin [Mass/Vol] Bilirubin.total [Mass/volume] in Serum or Plasma High 0.3-1.0 [facility] Comment on above: Samples from patient s who have taken Naproxen have shown spurious elevation in Total Bilirubin levels. A metabolite of Naproxen, O-desmethylnaproxen, has been shown to interfere with the Jendrassik-Grof method for measuring Total Bilirubin. Blood estimated average gluc ose determination by estimation from glycated hemoglobinOrdered By: Geoffrey Ibrahim on 09-21-2024 Average glucose Estimated from glycated hemoglobin (Bld) [Mass/Vol] Glucose mean value [Mass/volume] in Blood Estimated from glycated hemoglobin [facility] CMP with reflex to A1Con Albumin [Mass/Vol] 2.6 g/dL Low 3.5-5.7 [facility] Comment on above: Performed By: #### C MP wRFX A1C, EBS A1C, DIFF CBC #### [facility] [address] Albumin/Globulin [Mass ratio] 0.7 {ratio} Normal [facility] Comment on above: Performed By: #### C MP wRFX A1C, EBS A1C, DIFF CBC #### [address] ALP [Catalytic activity/Vol] 289 U/L High 34-104 [facility] Comment on above: Result Comment: PERF ORMED BY: [place] [address] PATHOLOGIST OCCUPATIONAL THERAPIST PER DIEM LEANDRA WALSH M.D. Performed By: #### C MP wRFX A1C, EBS A1C, DIFF CBC #### [facility] [address] ALT [Catalytic activity/Vol] 70 U/L High 7-52 [facility] Comment on above: Performed By: #### C MP wRFX A1C, EBS A1C, DIFF CBC #### [facility] [address] [place] [id number] [facility] Anion gap [Moles/Vol] 10.6 mmol/L Normal 6.0-15.0 [facility] e [facility] Comment on above: Performed By: #### C MP wRFX A1C, EBS A1C, DIFF CBC #### [facility] [address] AST [Catalytic activity/Vol] 143 U/L High 13-39 [facility] Comment on above: Performed By: #### C MP wRFX A1C, EBS A1C, DIFF CBC #### [address] Bilirubin [Mass/Vol] 1.8 mg/dL High 0.3-1.0 [facility] Comment on above: Result Comment: Samp les from patients who have taken Naproxen have shown spurious elevation in Total Bilirubin levels. A metabolite of Naproxen, O-desmethylnaproxen, has been shown to interfere with the Jendrassik-Grof method for measuring Total Bilirubin. Performed By: #### C MP wRFX A1C, EBS A1C, DIFF CBC #### [address] Calcium [Mass/Vol] 8.9 mg/dL Normal 8.6-10.3 [facility] Comment on above: Performed By: #### C MP wRFX A1C, EBS A1C, DIFF CBC #### [place] [address] [place] Chloride [Moles/Vol] 102 mmol/L Normal 98-107 [facility] Comment on above: Performed By: #### C MP wRFX A1C, EBS A1C, DIFF CBC #### [address] CO2 [Moles/Vol] 26.0 mmol/L Normal 21.0-31.0 [facility] Comment on above: Performed By: #### C MP wRFX A1C, EBS A1C, DIFF CBC #### [place] [address] [place] Creatinine [Mass/Vol] 1.24 mg/dL Normal 0.70-1.30 [facility] Comment on above: Performed By: #### C MP wRFX A1C, EBS A1C, DIFF CBC #### [place] [address] [place] GFR/1.73 sq M.predicted MDRD (S/P/Bld) [Vol rate/Area] mL/min/{1.73_m2} Normal [facility] Comment on above: Performed By: #### C MP wRFX A1C, EBS A1C, DIFF CBC #### [facility] [address] Globulin (S) [Mass/Vol] 3.5 g/dL Normal T he [facility] Comment on above: Performed By: #### C MP wRFX A1C, EBS A1C, DIFF CBC #### [facility] [address] Glucose [Mass/Vol] 114 mg/dL High 70-100 [facility] Comment on above: Result Comment: ADA recommended reference range Performed By: #### C MP wRFX A1C, EBS A1C, DIFF CBC #### [facility] [address] Potassium [Moles/Vol] 4.6 mmol/L Normal 3.5-5.1 [facility] Comment on above: Performed By: #### C MP wRFX A1C, EBS A1C, DIFF CBC #### [facility] [address] Protein [Mass/Vol] 6.1 g/dL Low 6.4-8.9 [facility] Comment on above: Performed By: #### C MP wRFX A1C, EBS A1C, DIFF CBC #### [facility] [address] [place] [address] [place] Sodium [Moles/Vol] 134 mmol/L Low 136-145 [facility] Comment on above: Performed By: #### C MP wRFX A1C, EBS A1C, DIFF CBC #### [facility] [address] [place] [address] [place] Urea nitrogen [Mass/Vol] 32 mg/dL High 7-25 [facility] Comment on above: Performed By: #### C MP wRFX A1C, EBS A1C, DIFF CBC #### [facility] [address] [place] [address] [place] Calcium [Mass/volume] in Ser um or PlasmaOrdered By: Geoffrey Ibrahim on 09-21-2024 Calcium [Mass/Vol] Calcium [Mass/volume ] in Serum or Plasma 8.6-10.3 [facility] Carbon dioxide, total [Moles /volume] in Serum or PlasmaOrdered By: Geoffrey Ibrahim on 09-21-2024 CO2 [Moles/Vol] Carbon dioxide, tota l [Moles/volume] in Serum or Plasma 21.0-31.0 [facility] Chloride [Moles/volume] in S saud or PlasmaOrdered By: Geoffrey Ibrahim on 09-21-2024 Chloride [Moles/Vol] Chloride [Moles/volume] in Serum or Plasma 98-107 [facility] Color Auto (U)Ordered By: Claudia Ibrahim on 09-21-2024 Color (U) Color of Urine by Auto Yellow [facility] Creatinine [Mass/volume] in Serum or PlasmaOrdered By: Geoffrey Ibrahim on 09-21-2024 Creatinine [Mass/Vol] Creatinine [Mass/volume] in Serum or Plasma 0.70-1.30 [facility] Diff and CBCon 09-21-2024 Erythrocyte distribution width (RBC) [Ratio] 15.5 % High 12.0-14.8 [facility] Comment on above: Performed By: #### C MP wRFX A1C, EBS A1C, DIFF CBC #### [facility] [address] [place] [address] [place] Hematocrit (Bld) [Volume fraction] 42.1 % Normal 38.8-50.0 [facility] Comment on above: Performed By: #### C MP wRFX A1C, EBS A1C, DIFF CBC #### [facility] [address] [id number] [place] Hemoglobin (Bld) [Mass/Vol] 14.7 g/dL Normal 13.0-17.0 [facility] Comment on above: Performed By: #### C MP wRFX A1C, EBS A1C, DIFF CBC #### [facility] [address] [id number] [place] Lymphocytes/100 WBC (Bld) 4 % Low 18-42 [facility] Comment on above: Performed By: #### C MP wRFX A1C, EBS A1C, DIFF CBC #### [facility] [address] [place] [address] [place] MCH (RBC) [Entitic mass] 33.4 pg Normal 27.5-35.2 [facility] Comment on above: Performed By: #### C MP wRFX A1C, EBS A1C, DIFF CBC #### [address] MCV (RBC) [Entitic vol] 95.4 fL Normal 83.5-101 T [facility] Comment on above: Performed By: #### C MP wRFX A1C, EBS A1C, DIFF CBC #### [address] Mean Corpuscular HGB Conc 35.0 g/dL Normal 32.5-35.6 [facility] Comment on above: Performed By: #### C MP wRFX A1C, EBS A1C, DIFF CBC #### [address] Monocytes/100 WBC (Bld) 9 % Normal 2-11 T [facility] Comment on above: Performed By: #### C MP wRFX A1C, EBS A1C, DIFF CBC #### [address] Platelet Estimate Normal Normal Normal [facility] Comment on above: Performed By: #### C MP wRFX A1C, EBS A1C, DIFF CBC #### [address] Platelet mean volume (Bld) [Entitic vol] 7.8 fL Normal 6.6-10.1 [facility] Comment on above: Performed By: #### C MP wRFX A1C, EBS A1C, DIFF CBC #### [address] Platelet Morphology Normal Normal Normal [facility] Comment on above: Result Comment: PERF ORMED BY: [place] [address] PATHOLOGIST OCCUPATIONAL THERAPIST PER DIEM LEANDRA WALSH M.D. Performed By: #### C MP wRFX A1C, EBS A1C, DIFF CBC #### [address] Platelets (Bld) [#/Vol] 188 10*3/uL Normal 150-450 [facility] Comment on above: Performed By: #### C MP wRFX A1C, EBS A1C, DIFF CBC #### [address] RBC (Bld) [#/Vol] 4.42 10*6/uL Normal 3.90-5.60 [facility] Comment on above: Performed By: #### C MP wRFX A1C, EBS A1C, DIFF CBC #### [address] RBC morphology finding Nom (Bld) Normal Normal Normal [facility] Comment on above: Performed By: #### C MP wRFX A1C, EBS A1C, DIFF CBC #### [address] Segmented neutrophils/100 WBC (Bld) 87 % High 50-70 [facility] Comment on above: Performed By: #### C MP wRFX A1C, EBS A1C, DIFF CBC #### [address] WBC (Bld) [#/Vol] 5.4 10*3/uL Normal 4.1-10.5 [facility] Comment on above: Performed By: #### C MP wRFX A1C, EBS A1C, DIFF CBC #### [address] EBS A1C with Estimated Ave G luon 09-21-2024 Glucose [Mass/Vol] 134 mg/dL Normal [facility] Comment on above: Result Comment: PERF ORMED BY: [address] [place] [address] PATHOLOGIST OCCUPATIONAL THERAPIST PER DIEM LEANDRA WALSH M.D. Performed By: #### C MP wRFX A1C, EBS A1C, DIFF CBC #### [address] ECG 12 lead ECGon 09-21-2024 ECG 12 lead ECG [facility] [place] [address] [place] [address] Electrocardiograph Report Signed Patient: Jazmyne Penn MR#: [id number] : 1955 Acct:[id number] Age/Sex: 68 / M ADM Date: 09/21/24 Loc: PS Room: Type: [facility] Attending Dr: Geoffrey Ibrahim DO Ordering Provider: Geoffrey Ibrahim DO Date of Service: 09/21/24 ECG/ECG 12 lead ECG: LEFT RADIAL HEAD ARTHROPLASTY Copies to: Test Reason : Blood Pressure : */* mmHG Vent. Rate : 67 BPM Atrial Rate : 67 BPM P-R Int : 186 ms QRS Dur : 84 ms QT Int : 394 ms P-R-T Axes : 75 -4 54 degrees QTcB Int : 416 ms Normal sinus rhythm Normal ECG When compared with ECG of 04-Oct-2012 08:47, MS interval has decreased Confirmed by Taj Palm ([id number]) on 09/21/2024 8:57:00 AM Referred By: Electronically Signed By: Taj Palm Transcribed By: MUS Signed By Taj Palm MD 09/21/24 0805 Normal [facility] Eosinophils Auto (Bld) [#/Vo l]Ordered By: Geoffrey Ibrahim on 09-21-2024 Eosinophils (Bld) [#/Vol] Automated eosinophil count [facility] Eosinophils/100 WBC Auto (Bl d)Ordered By: Geoffrey Ibrahim on 09-21-2024 Eosinophils/100 WBC (Bld) Automated eosinophil % [facility] Erythrocyte distribution wid th Auto (RBC) [Ratio]Ordered By: Geoffrey Ibrahim on 09-21-2024 Erythrocyte distribution width (RBC) [Ratio] Erythrocyte distribution width [Ratio] by Automated count High 12.0-14.8 [facility] Erythrocyte morphology findi ng [Identifier] in BloodOrdered By: Geoffrey Ibrahim on 09-21-2024 RBC morphology finding Nom (Bld) RBC morphology Normal [facility] Globulin Calc (S) [Mass/Vol] Ordered By: Geoffrey Ibrahim on 09-21-2024 Globulin (S) [Mass/Vol] Serum globulin measurement by calculation (mass/volume) [facility] Glucose [Mass/volume] in Ser um or PlasmaOrdered By: Geoffrey Ibrahim on 09-21-2024 Glucose [Mass/Vol] Glucose [Mass/volume ] in Serum or Plasma High 70-100 [facility] Comment on above: ADA recommended refe rence range Glucose [Mass/volume] in Uri ne by Test stripOrdered By: Geoffrey Ibrahim on 09-21-2024 Glucose Test strip (U) [Mass/Vol] Glucose [Mass/volume] in Urine by Test strip Normal [facility] Hematocrit Auto (Bld) [Volum e fraction]Ordered By: Geoffrey Ibrahim on 09-21-2024 Hematocrit (Bld) [Volume fraction] Hematocrit [Volume Fraction] of Blood by Automated count 38.8-50.0 [facility] Hemoglobin A1c measurementOr dered By: Geoffrey Ibrahim on 09-21-2024 HbA1c (Bld) [Mass fraction] 6.3 % High 4.3-5.6 [facility] Comment on above: Increased risk for d iabetes: 5.7 - 6.4diabetes: >6.4glycemic control for adults with diabetes: <7.0 Result Comment: Incr eased risk for diabetes: 5.7 - 6.4 diabetes: >6.4 glycemic control for adults with diabetes: <7.0 Performed By: #### C MP wRFX A1C, EBS A1C, DIFF CBC #### [address] Hemoglobin Test strip Ql (U) Ordered By: Geoffrey Ibrahim on 09-21-2024 Hemoglobin Ql (U) Hemoglobin [Presence ] in Urine by Test strip Negative [facility] Hemoglobin [Mass/volume] in BloodOrdered By: Geoffrey Ibrahim on 09-21-2024 Hemoglobin (Bld) [Mass/Vol] Hemoglobin [Mass/volume] in Blood 13.0-17.0 [facility] Ketones Test strip Ql (U)Ord ered By: Geoffrey Ibrahim on 09-21-2024 Ketones Ql (U) Ketones [Presence] i n Urine by Test strip Negative [facility] Leukocyte esterase [Presence ] in Urine by Test stripOrdered By: Geoffrey Ibrahim on 09-21-2024 Leukocyte esterase Test strip Ql (U) Leukocyte esterase [Presence] in Urine by Test strip Negative [facility] Leukocytes [#/volume] correc adrián for nucleated erythrocytes in Blood by Automated counOrdered By: Geofrfey Ibrahim on 09-21-2024 WBC corrected for nucl RBC Auto (Bld) [#/Vol] Leukocytes [#/volume] corrected for nucleated erythrocytes in Blood by Automated coun 4.1-10.5 [facility] Lymphocytes Auto (Bld) [#/Vo l]Ordered By: Geoffrey Ibrahim on 09-21-2024 Lymphocytes (Bld) [#/Vol] Lymphocytes [#/volume] in Blood by Automated count [facility] Lymphocytes/100 WBC Auto (Bl d)Ordered By: Geoffrey Ibrahim on 09-21-2024 Lymphocytes/100 WBC (Bld) Lymphocytes/100 leukocytes in Blood by Automated count [facility] Lymphocytes/100 WBC Manual c nt (Bld)Ordered By: Geoffrey Ibrahim on 09-21-2024 Lymphocytes/100 WBC (Bld) Lymphocytes/100 leukocytes in Blood by Manual count Low 18-42 [facility] MCH Auto (RBC) [Entitic mass ]Ordered By: Geoffrey Ibrahim on 09-21-2024 MCH (RBC) [Entitic mass] MCH [Entitic mass] by Automated count 27.5-35.2 [facility] MCHC Auto (RBC) [Mass/Vol]Or dered By: Geoffrey Ibrahim on 09-21-2024 MCHC (RBC) [Mass/Vol] MCHC [Mass/volume] by Automated count 32.5-35.6 [facility] MCV Auto (RBC) [Entitic vol] Ordered By: Geoffrey Ibrahim on 09-21-2024 MCV (RBC) [Entitic vol] MCV [Entitic vol ume] by Automated count 83.5-101 [facility] Monocytes Auto (Bld) [#/Vol] Ordered By: Geoffrey Ibrahim on 09-21-2024 Monocytes (Bld) [#/Vol] Automated blood monocyte count [facility] Monocytes/100 WBC Auto (Bld) Ordered By: Geoffrey Ibrahim on 09-21-2024 Monocytes/100 WBC (Bld) Automated monocyte % [facility] Monocytes/100 WBC Manual cnt (Bld)Ordered By: Geoffrey Ibrahim on 09-21-2024 Monocytes/100 WBC (Bld) Monocytes/100 leukocytes in Blood by Manual count 2-11 [facility] Neutrophils Auto (Bld) [#/Vo l]Ordered By: Geoffrey Ibrahim on 09-21-2024 Neutrophils (Bld) [#/Vol] Neutrophils [#/volume] in Blood by Automated count [facility] Neutrophils/100 WBC Auto (Bl d)Ordered By: Geoffrey Ibrahim on 09-21-2024 Neutrophils/100 WBC (Bld) Automated neutrophil % [facility] Nitrite Test strip Ql (U)Ord ered By: Geoffrey Ibrahim on 09-21-2024 Nitrite Ql (U) Nitrite [Presence] i n Urine by Test strip Negative [facility] No Panel InformationOrdered By: Geoffrey Ibrahim on 09-21-2024 Estimated GFR (CKD-EPI) > 60.0 mL/Min [facility] Creatinine Clearance (Chem N/A [facility] Nucleated erythrocytes [Pres ence] in Blood by Automated countOrdered By: Geoffrey Ibrahim on 09-21-2024 Nucleated RBC Auto Ql (Bld) Nucleated erythrocytes [Presence] in Blood by Automated count [facility] Platelet adequacy [Presence] in Blood by Light microscopyOrdered By: Geoffrey Ibrahim on 09-21-2024 Platelets LM Ql (Bld) Platelet adequacy [Presence] in Blood by Light microscopy Normal [facility] Platelet mean volume Auto (B ld) [Entitic vol]Ordered By: Geoffrey Ibrahim on 09-21-2024 Platelet mean volume (Bld) [Entitic vol] Platelet mean volume [Entitic volume] in Blood by Automated count 6.6-10.1 [facility] Platelet morphology finding [Identifier] in BloodOrdered By: Geoffrey Ibrahim on 09-21-2024 Platelet morphology finding Nom (Bld) Platelet morphology finding [Identifier] in Blood Normal [facility] Platelets Auto (Bld) [#/Vol] Ordered By: Geoffrey Ibrahim on 09-21-2024 Platelets (Bld) [#/Vol] Platelets [#/vol ume] in Blood by Automated count 150-450 [facility] Potassium [Moles/volume] in Serum or PlasmaOrdered By: Geoffrey Ibrahim on 09-21-2024 Potassium [Moles/Vol] Potassium [Moles/volume] in Serum or Plasma 3.5-5.1 [facility] Protein Test strip (U) [Mass /Vol]Ordered By: Geoffrey Ibrahim on 09-21-2024 Protein (U) [Mass/Vol] Protein [Mass/vol ume] in Urine by Test strip Negative [facility] Protein [Mass/volume] in Ser um or PlasmaOrdered By: Geoffrey Ibrahim on 09-21-2024 Protein [Mass/Vol] Protein [Mass/volume ] in Serum or Plasma Low 6.4-8.9 [facility] RBC Auto (Bld) [#/Vol]Ordere d By: Geoffrey Ibrahim on 09-21-2024 RBC (Bld) [#/Vol] Erythrocytes [#/volume] in Blood by Automated count 3.90-5.60 [facility] Segmented neutrophils/100 WB C Manual cnt (Bld)Ordered By: Geoffrey Ibrahim on 09-21-2024 Segmented neutrophils/100 WBC (Bld) Manual blood segmented neutrophils/100 leukocytes High 50-70 [facility] Serum or plasma albumin/glob ulin mass ratioOrdered By: Geoffrey Ibrahim on 09-21-2024 Albumin/Globulin [Mass ratio] Serum or plasma albumin/globulin mass ratio [facility] Serum or plasma anion gap de terminationOrdered By: Geoffrey Ibrahim on 09-21-2024 Anion gap [Moles/Vol] Serum or plasma an ion gap determination 6.0-15.0 [facility] Sodium [Moles/volume] in Ser um or PlasmaOrdered By: Geoffrey Ibrahim on 09-21-2024 Sodium [Moles/Vol] Sodium [Moles/volume ] in Serum or Plasma Low 136-145 [facility] Specific gravity Test strip (U) [Rel density]Ordered By: Geoffrey Ibrahim on 09-21-2024 Specific gravity (U) [Rel density] Specific gravity of Urine by Test strip 1.001-1.030 [facility] Urea nitrogen [Mass/volume] in Serum or PlasmaOrdered By: Geoffrey Ibrahim on 09-21-2024 Urea nitrogen [Mass/Vol] Urea nitrogen [Mass/volume] in Serum or Plasma High 7-25 [facility] Urinalysison 09-21-2024 Appearance (U) Clear Normal Clear [facility] Comment on above: Order Comment: Name Collection Type:: Clean-Voided Midstream Performed By: #### U A #### [place] [address] [place] Bilirubin,Urine Negative Normal Negative [facility] Comment on above: Order Comment: Name Collection Type:: Clean-Voided Midstream Performed By: #### U A #### [place] [address] [place] Color (U) Yellow Normal Yellow [facility] Comment on above: Order Comment: Name Collection Type:: Clean-Voided Midstream Performed By: #### U A #### [place] [address] [place] Glucose Ql (U) Normal Normal Normal [facility] Comment on above: Order Comment: Name Collection Type:: Clean-Voided Midstream Performed By: #### U A #### [address] Ketones Ql (U) Negative Normal Negative [facility] Comment on above: Order Comment: Name Collection Type:: Clean-Voided Midstream Performed By: #### U A #### [place] [address] [place] Leukocyte esterase Test strip Ql (U) Negative Normal Negative [facility] Comment on above: Order Comment: Name Collection Type:: Clean-Voided Midstream Performed By: #### U A #### [place] [address] [place] Nitrite,Urine Negative Normal Negative [facility] Comment on above: Order Comment: Name Collection Type:: Clean-Voided Midstream Performed By: #### U A #### [place] [address] [place] Occult Blood,Urine Negative Normal Negative [facility] Comment on above: Order Comment: Name Collection Type:: Clean-Voided Midstream Result Comment: PERF ORMED BY: [place] [address] PATHOLOGIST OCCUPATIONAL THERAPIST PER DIEM MOHAMED M EL-FAKHARANY M.D. Performed By: #### U A #### [address] pH (U) 6.0 [pH] Normal 5.0-9.0 [facility] Comment on above: Order Comment: Name Collection Type:: Clean-Voided Midstream Performed By: #### U A #### [address] Protein,Urine Negative Normal Negative [facility] Comment on above: Order Comment: Name Collection Type:: Clean-Voided Midstream Performed By: #### U A #### [address] Specificy [place],Urine 1.014 Normal 1.001-1.030 [facility] Comment on above: Order Comment: Name Collection Type:: Clean-Voided Midstream Performed By: #### U A #### [address] Urobilinogen,Urine Normal Normal Normal [facility] Comment on above: Order Comment: Name Collection Type:: Clean-Voided Midstream Performed By: #### U A #### [address] Urobilinogen Test strip (U) [Mass/Vol]Ordered By: Geoffrey Ibrahim on 09-21-2024 Urobilinogen (U) [Mass/Vol] Urobilinogen [Mass/volume] in Urine by Test strip Normal [facility] WBC Auto (Bld) [#/Vol]Ordere d By: Geoffrey Ibrahim on 09-21-2024 WBC (Bld) [#/Vol] Leukocytes [#/volume ] in Blood by Automated count 4.1-10.5 [facility] pH Test strip (U)Ordered By: Geoffrey Ibrahim on 09-21-2024 pH (U) pH of Urine by Test strip 5.0-9.0 [facility] BASIC METABOLIC PANELon 10 Anion gap [Moles/Vol] 9 mmol/L Normal 7-20 [facility] Comment on above: Performed By: #### L [id number] #### [facility] [address] [place] [address] Calcium [Mass/Vol] 6.9 mg/dL Low 8.6-10.3 [facility] Comment on above: Performed By: #### L [id number] #### [facility] [address] [place] [address] Chloride [Moles/Vol] 110 mmol/L High 98-107 [facility] Comment on above: Performed By: #### L [id number] #### [facility] [address] [place] [address] CO2 [Moles/Vol] 22 mmol/L Normal 21-31 [facility] Comment on above: Performed By: #### L [id number] #### [facility] ([facility]) [address] [place] [address] Creatinine [Mass/Vol] 1.04 mg/dL Normal 0.70-1.30 [facility] Comment on above: Performed By: #### L [id number] #### [facility] ([facility]) [address] [place] [address] GLOMERULAR FILTRATION RATE ML/MIN/1.73 SQ M.PREDICTED 79.2 mL/min/1.73m*2 Normal >60.0 [facility] Comment on above: Result Comment: [facility]???s estimated glomerular filtration rate (eGFR) will no [...] individuals. Performed By: #### L [id number] #### [facility] [address] [place] [address] Glucose [Mass/Vol] 86 mg/dL Normal 70-100 [facility] Comment on above: Performed By: #### L [id number] #### [facility] ([facility]) [address] [place] [address] Potassium [Moles/Vol] 3.9 mmol/L Normal 3.5-5.1 [facility] Comment on above: Performed By: #### L [id number] #### [facility] ([facility]) [address] [place] [address] Sodium [Moles/Vol] 137 mmol/L Normal 136-145 [facility] Comment on above: Performed By: #### L [id number] #### [facility] ([facility]) [address] [place] [address] Urea nitrogen [Mass/Vol] 32 mg/dL High 7-25 [facility] Comment on above: Performed By: #### L [id number] #### [facility] ([facility]) [address] [place] [address] UREA NITROGEN/CREATININE (MASS RATIO) IN SER/PLAS 30.8 Normal [facility] Comment on above: Performed By: #### L [id number] #### [facility] ([facility]) [address] [place] [address] HPon 05-14-2024 HP - Attestation signed by Taj Otero MD at [...] possible PCI. 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 [facility] NURSNOTE RN educated pt on d/ c instructions. This included: site care, limited physical activity, resume normal diet, future appointments, medications, and moderate sedation instructions. RN educated pt on when to notify physician and when to go to the hospital. RN encouraged pt to voice any questions or concerns, and answered any questions or concerns if pt verbalized. [facility] NURSNOTE Dr. Aparicio notified of normal creatnine result. states pt ok for early discharge at 2:30 and no need to continue IVF. [facility] Orders Onlyon 05-04-2024 Orders Only [id number] Jazmyne Penn 1955 M Date Provider Department Center 05/04/2024 ERMA JUNE Family History Problem Relation Age of Onset Colon cancer Mother Coronary artery disease Father Cancer Brother Family Status - Relation Status Age at Mother Father Brother [facility] CREATININE, SERUMon 05-01-20 Creatinine [Mass/Vol] 1.45 mg/dL High 0.70-1.30 [facility] Comment on above: Performed By: #### L [id number] ####[facility] ([place])[address] [place] [address] GLOMERULAR FILTRATION RATE ML/MIN/1.73 SQ M.PREDICTED 53.1 mL/min/1.73m*2 Low >60.0 [facility] Comment on above: Result Comment: [facility]???s estimated glomerular filtration rate (eGFR) will no [...] of individuals. Performed By: #### L [id number] ####[facility] ([place])[address] [place] [address] [facility] CTA HEART CORONARY W IV CONTRAST [...] shunt in the liver. Electronically signed: Tera Condno MD. Not Glendy Invalid Interpretation Code [facility] Lab 05-01-2024 Lab [id number] Jazmyne Penn 1955 M Date Provider Department Center 05/01/2024 2245-[facility] OPD LAB RESOURCE [facility] OPD DE Medical C Family History Problem Relation Age of Onset Colon cancer Mother Coronary artery disease Father Cancer Brother Family Status - Relation Status Age at Mother Father Brother Normal [facility] HPon 04-29-2024 [facility] Cardiology - [facility] Subjective Jazmyne Penn is a 68 y.o. year old male patient being seen to establish care. Ref from Dr. Muñoz for abnormal stress test performed last week. This was ordered for worsening CASTELLANOS. He denies chest pain, palpitations, and lightheadedness/synco pe. 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 Normal [facility] Office Visiton 04-29-2024 Follow-up visit [id number] Jazmyne Penn 1955 M Date Provider Department Center 04/29/2024 TAJ SUNSHINE ANTHONY Kirkpatrick Family History Problem Relation Age of Onset Colon cancer Mother Coronary artery disease Father Cancer Brother Family Status - Relation Status Age at Mother Father Brother Level of Service:96756 MS OFFICE/OP CONSLTJ NEW/EST PT MOD MDM 40 MINUTES Normal [facility] [place] 04-18-2023 Consent [id number]#1. 00CD:127 [facility] In office Testingon 04-18-20 23 In office Testing [id number]#1 .00CD:127 [facility] Registrationon 04-18-2023 Registration [id number]# 1.00CD:127 [facility] In office Testingon 03-15-20 23 In office Testing [id number]# 1.00CD:127 [facility] [place] 03-08-2023 Consent [id number]# 1.00CD:127 [facility] Registrationon 03-08-2023 Registration [id number]# 1.00CD:127 [facility] In office Testingon 02-06-20 23 In office Testing [id number]#1 .00CD:127 [facility] [place] 02-04-2023 Consent [id number]#1 .00CD:127 [facility] Registrationon 02-04-2023 Registration [id number]#1 .00CD:127 [facility] Patient Correspondenceon Patient Correspondence [id number]#1 .00CD:127 [facility] Physician Referralon 023 Physician Referral [id number]#1 .00CD:127 [facility] Physician Referral [id number]#1 .00CD:127 [facility] [place] 11-09-2022 Consent [id number]# 1.00CD:127 [facility] In office Testingon 11-10-19 23 In office Testing [id number] #1.00CD:127 [facility] Registrationon 11-09-2022 Registration [id number]# 1.00CD:127 [facility] Consenton 07-27-2022 Consent [id number]#1 .00CD:127 [facility] Registrationon 07-27-2022 Registration [id number]#1 .00CD:127 [facility] Consenton 07-09-2022 Consent [id number]# 1.00CD:[address] [facility] In office Testingon 07-09-20 22 In office Testing [id number]# 1.00CD:[address] [facility] Registrationon 07-09-2022 Registration [id number]# 1.00CD:[address] [facility] In office Testingon 07-06-20 22 In office Testing [id number]# 1.00CD:[address] [facility] GLYCOHEMOGLOBIN A1Con 2021 ADA RECOMMENDATION SEE BELOW Normal [facility] Comment on above: Result Comment: ADA RECOMMENDED LIMIT 4.0 - 6.0 ADA THERAPEUTIC TARGET < 7.0 ACTION SUGGESTED > 7.0 Performed By: #### A 1C #### [facility] [address] [address] [address] Sandor Coffman Glucose [Mass/Vol] 140 mg/dL Normal [facility] Comment on above: Performed By: #### A 1C #### [facility] [address] [address] [address] Sandor Coffman HbA1c (Bld) [Mass fraction] 6.5 % Critically high 4.5-6.2 [facility] Comment on above: Performed By: #### A 1C #### [facility] [address] [address] [address] Sandor Coffman Registrationon 05-01-2022 Registration [id number]# 1.00CD:[address] [facility] Consenton 04-27-2022 Consent [id number] #1.00CD:[address] [facility] HIP LEFT 1 OR 2 VWS WITH PEL VISon 08-27-2019 HIP LEFT 1 OR 2 VWS WITH PELVIS [facility] Department of Radiology [address] [place] [address] Patient Name: JAZMYNE PENN : 1955 Sex: M Age: Race: White Pt. Location: 84 Patient Status: Ordered Date: 08/27/2019 9:45:00 AM Completed Date: 08/27/2019 09:44 AM Requesting Provider: LIZET LOVELACE Attending Provider: Report Copy To: Signs & Symptoms: Z96.642 Presence of left artificial hip joint I10 History: [place] Comments: , Views (X-RAY, HIP): Radiologic Protocol [...] above. Electronically signed: David Sanford. Transcribed by: [email or web address], User Resident: Electronically Signed by: DAVID SANFORD @ 08/27/2019 01:52 PM Normal [facility] Comment on above: Order Comment: , Vie ws (X-RAY, HIP): Radiologic Protocol , Views (X-RAY, HIP): Radiologic Protocol , , , Ordering Provider - LIZET LOVELACE MD , HIP LEFT 1 OR 2 VWS WITH PEL VISon 06-18-2019 HIP LEFT 1 OR 2 VWS WITH PELVIS [facility] Department of Radiology [address] [place] [id number] Patient Name: JAZMYNE PENN : 1955 Sex: M Age: Race: White Pt. Location: Patient Status: Ordered Date: 06/17/2019 3:35:00 PM Completed Date: 06/18/2019 10:30 AM Requesting Provider: LIZET LOVELACE Attending Provider: Report Copy To: Signs & Symptoms: Z96.642 Presence of left artificial hip joint I10 History: [place] Comments: , Views (X-RAY, HIP): Radiologic Protocol [...] loosening Electronically signed by:Carlos Cameron. Transcribed by: [email or web address], User Resident: Electronically Signed by: CARLOS CAMERON @ 06/18/2019 02:11 PM Normal [facility] Comment on above: Order Comment: , Heidie ws (X-RAY, HIP): Radiologic Protocol , Views (X-RAY, HIP): Radiologic Protocol , , , Ordering Provider - LIZET LOVELACE MD , Vital Signs Date Time Vital Sign Value Performing Clinician Faci lity 09-22-2024 16:40-0500 Diastolic blood pressure 68 mm[Hg] Peggy Muñoz MD Work Phone: [facility] 09-22-2024 16:40-0500 Heart rate 73 /min Peggy Muñoz MD Work Phone: [facility] 09-22-2024 16:40-0500 Respiratory rate 16 /min Peggy Muñoz MD Work Phone: [facility] 09-22-2024 16:40-0500 SaO2% (BldA) [Mass fraction] 92 % Peggy Muñoz MD Work Phone: [facility] 09-22-2024 16:40-0500 Systolic blood pressure 145 mm[Hg] Peggy Muñoz MD Work Phone: [facility] 09-22-2024 15:55-0500 Body temperature 97.4 [degF] Peggy Muñoz MD Work Phone: [facility] 09-22-2024 15:25-0500 Inhaled oxygen flow rate 6 L/min Peggy Muñoz MD Work Phone: [facility] 09-22-2024 12:02-0500 Body height 173.99 cm Peggy Muñoz MD Work Phone: [facility] 09-22-2024 12:02-0500 Body weight 140.7 kg Peggy Muñoz MD Work Phone: [facility] 09-18-2024 08:08-0500 Body height 180.34 cm [facility] 09-18-2024 08:08-0500 Body mass index (BMI) [Ratio] 43.1 kg/m2 [facility] 09-18-2024 08:08-0500 Body weight 140.21 kg [facility] Encounters Encounter Date Encounter Type Care Provider Facility Start: 10-07-2024 End: 10-07-2024 ambulatory Peggy Muñoz MD Work Phone: [facility] Work Phone: Start: 10-07-2024 End: 10-07-2024 Patient encounter procedure Peggy Muñoz MD Work Phone: [facility] Work Phone: Start: 09-22-2024 End: 09-22-2024 Admission to same day surgery center Peggy Muñoz MD Work Phone: [facility] [place] Start: 09-22-2024 End: 09-22-2024 ambulatory Peggy Muñoz MD Work Phone: [facility] Work Phone: Start: 09-22-2024 Non-patient / Non-visit Vi Muñoz MD Work Phone: [facility] Work Phone: Start: 09-21-2024 End: 09-21-2024 Patient encounter procedure Peggy Muñoz MD Work Phone: [facility] Work Phone: Start: 09-21-2024 End: 09-21-2024 ambulatory Peggy Muñoz MD Work Phone: [facility] Work Phone: Start: 09-21-2024 Encounter for preprocedural laboratory examination Geoffrey Ibrahim [facility] Start: 09-18-2024 End: 09-18-2024 ambulatory [facility] Work Phone: Start: 09-18-2024 End: 09-18-2024 Patient encounter procedure [facility] Work Phone: Start: 05-14-2024 End: 05-14-2024 ambulatory [facility] Start: 05-01-2024 Encounter for other preprocedural examination [facility] Start: 05-01-2024 End: 05-01-2024 ambulatory [facility] Start: 04-29-2024 End: 04-29-2024 ambulatory [facility] Start: 04-18-2023 End: 04-19-2023 ambulatory Tuan Lira [facility] Start: 03-08-2023 End: 03-09-2023 ambulatory Nat T TREVOR [facility] Start: 02-04-2023 End: 02-05-2023 ambulatory Nat T TREVOR [facility] Start: 01-10-2023 ambulatory Truman Rodriguez y:CATE Hinson Start: 01-09-2023 ambulatory Truman FUNES Facilit y:CATE Suazo Start: 11-09-2022 End: 11-10-2022 ambulatory Nat MURRAY [facility] Start: 07-27-2022 End: 07-28-2022 ambulatory Truman FUNES [facility] Start: 07-02-2022 End: 07-03-[address] PEGGY MUÑOZ Facility:[facility] Start: 06-15-2022 End: 06-16-2022 ambulatory Nat MURRAY [facility] Start: 04-27-2022 End: 04-28-2022 ambulatory Truman FUNES [facility] Start: 12-22-[address] PEGGY MUÑOZ Facility :[facility] Start: 10-03-[address] PEGGY MUÑOZ Facility :[facility] Procedures Date Procedure Procedure Detail Performing Clinician Start: 10-07-2024 Plain X-ray of left elbow Peggy uMñoz MD Work Phone: Start: 09-22-2024 Open reduction of fracture with internal fixation Peggy Muñoz MD Work Phone: Start: 09-22-2024 Plain X-ray of left elbow Peggy Muñoz MD Work Phone: Plan of Treatment Date Care Activity Detail Author Start: 10-07-2024 Plain X-ray of left elbow XR elbow LT 2V [facility] Start: 10-07-2024 XR Elbow - left 2 Views [facility] Start: 09-22-2024 [facility] Start: 09-22-2024 [facility] Start: 09-22-2024 Plain X-ray of left elbow XR elbow LT min 3V* [facility] Start: 09-22-2024 XR Elbow - left GE 3 Views [facility] Patient Education Know your Meds [facility] Work Phone: Patient referral [facility] Work Phone: Payers Date Payer Category Payer Private Health Insurance [id number] 2023 Unknown [id number] 1957 Self-pay 1955 Unknown [id number] 1955 Unknown [id number] 1955 Unknown [id number] 1955 Unknown [id number] Medicare [id number] Private Health Insurance [employer] [id number] Unknown [id number] Unknown O [id number] Unknown [id number] Unknown [id number] Unknown [id number] Worker's Compensation [facility] [id number] Social History Date Type Detail Facility Tobacco smoking stat [facility] Unknown if ever smoked [facility] Work Phone: Start: 1955 Sex Assigned At Male [facility] Start: 07-24-2019 [facility] sm[facility] Start: 09-18-2024 End: 10-08-2024 Sex Male (finding) [facility] Start: 09-21-2024 End: 09-22-2024 Tobacco smoking status [facility]IS Ex-smoker (finding) [facility] Medical Equipment Procedure Code Equipment Code Equipment Origin al Text Equipment Identifier Dates Open reduction and internal fixation of fracture of humerus Elbow radius prosthesis [id number] FDA Start: 09-22-2024 Open reduction and internal fixation of fracture of humerus Elbow radius prosthesis [id number] FDA Start: 09-22-2024 Goals Date Patient Goal Desired Activity /State Evaluation note 09-18-2024 Note Date & Type Note Facility 09-18-2024 Evaluation note Diagnosis Onset Date Resolution Fracture of coronoid process of left ulna acute September 182024 7:49am Fracture of radial head, left, closed acute August 7:49am [facility] Work Phone: Evaluation note 09-18-2024 Note Date & Type Note Facility 09-18-2024 Evaluation note Diagnosis Onset Date Resolution Fracture of coronoid process of left ulna acute September 182024 7:49am Fracture of radial head, left, closed acute September 18, 7:49am Fracture of coronoid process of left ulna acute October 07, 2024 8:05am Fracture of radial head, left, closed acute October 07, 2024 8:05am Other specified postprocedural states noneactive September 8:05am [facility] Work Phone: Clinical Note 05-14-2024 Note Date & Type Note Facility 05-14-2024 Note Patient: Jazmyne Yang Procedure Information Date/Time: 05/14/24 1200 Procedures: Coronary angiography Right heart cath Location: [facility] 2 [facility] / [facility] (Cath) Providers: Taj Otero MD [...] Plan discussed with attending. 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 [facility] Evaluation note Note Date & Type Note Facility Evaluation note No assessment information availa [facility] Work Phone: Evaluation note Note Date & Type Note Facility Evaluation note Diagnosis Onset Date Resolution Fracture of coronoid process of left ulna acute September 182024 7:49am Fracture of radial head, left, closed acute August 7:49am [facility] Work Phone: Summary Purpose Family History No Family History Records Found Relationship Condition Age at Onset Recorded Date/T jacob Not Specified No pertinent family history Unknown Relationship Condition Age at Onset Recorded Date/T jacob Not Specified No pertinent family history Unknown father Unknown Heart disease Unknown mother Unknown Family history of colon cancer Unknown Relationship Condition Age at Onset Recorded Date/T jacob father Heart disease Unknown Unknown mother Family history of colon cancer Unknown Advance Directives No Advanced Directives Records Found Advance Directive Response Recorded Date/ Time Advance Directives No February 06 10:05am Advance Directive Response Recorded Date/ Time Advance Directives No February 06 11:05am Chief Complaint and Reason for Visit Chief Complaint Admit Date 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 [facility] 2024 7:49am Reason for Visit Admit Date Fracture of coronoid process of left uln a September 18, 2024 7:49am Fracture of radial head, left, closed Fe bru2024 7:49am Chief Complaint Admit Date 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 [facility] 2024 7:49am Left Radial Head Fracture September 21, 2024 7:38am Chief Complaint Admit Date 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 [facility]2024 7:49am Left Radial Head Fracture September 21, 2024 7:38am Left Radial Head Fracture September 22, 2024 7:29am Left Radial Head Fracture September 22, 2024 10:58am Chief Complaint Admit Date 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 [facility] 2024 7:49am Left Radial Head Fracture September 21, 2024 7:38am Left Radial Head Fracture September 22, 2024 7:29am Left Radial Head Fracture September 22, 2024 10:58am 3 weeks post op October 07, 2024 8:0 5am S52.122A - Displaced fracture of head of left radi October 07, 2024 8:07am Reason for Visit Admit Date Fracture of coronoid process of left uln a September 18, 2024 7:49am Fracture of radial head, left, closed Fe bruary 2024 7:49am Fracture of coronoid process of left uln a October 07, 2024 8:05am Fracture of radial head, left, closed [facility] 2024 8:05am Other specified postprocedural states [facility] 2024 8:05am Additional Source Comments (unrecognized sect ion and content) No Status Records FoundNo Status Records FoundNo Status Records FoundNo Status Records FoundNo Status Records Found INFORMATION SOURCE (unrecogn ized section and content) DATE CREATED AUTHOR 06/17/2020 [facility] DATE CREATED AUTHOR AUTHOR'S ORGANIZ ATION 07/07/2022 [facility] DATE CREATED AUTHOR AUTHOR'S ORGANIZ ATION 04/20/2023 [facility] DATE CREATED AUTHOR AUTHOR'S ORGANIZ ATION 05/19/2024 [facility] DATE CREATED AUTHOR AUTHOR'S ORGANIZ ATION 10/20/2024 [facility] Goals (unrecognized section and content) Goals may be documented in a n alternate sectionGoals may be documented in an alternate sectionGoals may be documented in an alternate section Care Teams (unrecognized sec tion and content) Team Status: Active Member Role Status Dates Peggy Muñoz MD Primary Care Provider Active Team Status: Inactive Member Role Status Dates Peggy Muñoz MD Primary Care Provider Active Start: September 18, 2024 End: September 18, 2024 Geoffrey Ibrahim DO Attending Provider Active S tart: September 18, 2024 End: September 18, 2024 Team Status: Inactive Member Role Status Dates Peggy Muñoz MD Primary Care Provider Active Start: September 21, 2024 End: September 21, 2024 Geoffrey Ibrahim DO Attending Provider Active S tart: September 21, 2024 End: September 21, 2024 Team Status: Active Member Role Status Dates Peggy Muñoz MD Primary Care Provider Active Start: September 22, 2024 Geoffrey Ibrahim DO Attending Provider, Other Provider Active Start: September 22, 2024 Team Status: Inactive Member Role Status Dates Peggy Muñoz MD Primary Care Provider Active Start: September 22, 2024 End: September 22, 2024 Geoffrey Ibrahim DO Attending Provider Active S tart: September 22, 2024 End: September 22, 2024 Team Status: Inactive Member Role Status Dates Peggy Muñoz MD Primary Care Provider Active Start: October 07, 2024 End: October 07, 2024 Geoffrey Ibrahim DO Attending Provider Active S tart: October 07, 2024 End: October 07, 2024 Team Status: Active Member Role Status Dates Peggy Muñoz MD Primary Care Provider Active Start: October 07, 2024 Geoffrey Ibrahim DO Attending Provider Active S tart: October 07, 2024 FOR RECORDS PERTAINING TO PATIENTS WHO ARE [...] BE BASED ON THE PRIMARY CLINICAL RECORDS. [facility] [employer] provides no warranty or guarantee of the accuracy or completeness of information in this document.
[2024-10-20 20:03] LABS: C Reactive Protein 1.91 mg/dL (<=0.50)
[2024-10-20 20:41] LABS: Influenza Virus A Antigen Negative; Influenza Virus B Antigen Negative; Internal Control Within Normal Limits; SARS-CoV-2 Ag NEGATIVE (NEGATIVE)
[2024-10-20] MEDS: 0.9 % SODIUM CHLORIDE 1,000 ML 100 ML IV (20:58)
[2024-10-20] MEDS: LACTULOSE 10 GM/15 ML BOTTLE 237 ML PO (21:02)
[2024-10-21] VITALS (17 sets, daily range): BP systolic 100–143; BP diastolic 56–76; PULSE 71–92; TEMP 36.3–36.6; O2SAT 92–94
[2024-10-21 06:14] LABS: Eosinophils Absolute Auto 0.1 10^3/uL (0.0-0.7); Hematocrit 39.7 % (42.0-54.0); Hemoglobin 13.3 g/dL (14.0-18.0); Immature Granulocytes Abs Auto 0.07 10^3/uL (0.00-0.03); Lymphocytes Absolute Auto 0.4 10^3/uL (1.2-3.8); Lymphocytes Percent Auto 6.2 % (20.5-60.0); Mean Corpuscular HGB Conc 33.5 g/dL (29.9-35.2); Mean Corpuscular Volume 98.5 fL (80.0-94.0); Mean Platelet Volume 10.1 fL (9.5-13.5); Monocytes Absolute Auto 0.7 10^3/uL (0.3-0.8); Monocytes Percent Auto 10.3 % (1.7-12.0); Neutrophils Absolute Auto 5.8 10^3/uL (1.4-6.5); Neutrophils Percent Auto 81.5 % (43.0-75.0); Platelet Count 123 10^3/uL (150-450); Red Blood Count 4.03 10^6/uL (4.70-6.10); Red Cell Distribution Width 16.8 % (11.0-15.0); White Blood Count 7.1 10^3/uL (4.0-11.0)
[2024-10-21 06:39] LABS: Alanine Aminotransferase 119 U/L (16-63); Albumin Globulin Ratio 0.5; Albumin Level 1.6 g/dL (3.4-5.0); Alkaline Phosphatase 266 U/L (46-116); Anion Gap 9.5; Aspartate Amino Transferase 198 U/L (15-37); BUN Creatinine Ratio 30.1; Bilirubin Total 3.1 mg/dL (0.2-1.0); Carbon Dioxide 26.2 mmol/L (21.0-32.0); Chloride 106 mmol/L (98-107); Estimated GFR (African America >60 (>=60 mL/min/1.73m^2); Estimated GFR (Non-African Ame 52 (>=60 mL/min/1.73m^2); Globulin 3.4 g/dL; Glucose 57 mg/dL (74-106); Magnesium 1.9 mg/dL (1.8-2.4); Potassium 4.7 mmol/L (3.5-5.1); Sodium 137 mmol/L (136-145)
[2024-10-21] MEDS: 0.9 % SODIUM CHLORIDE 1,000 ML 100 ML IV ×2 (06:56→21:06)
--- NOTE | 2024-10-21 07:49 | P.HP_ITS ---
HPI H&P: HPI History of Present Illness Chief complaint: Dehydration Hypovolemia Syncope Narrative: Treated in the office couple weeks ago for bronchitis, but over the last several days prior to admission, having increasing weakness and some confusion, presented to the emergency room and had significant elevated liver function test as well as acute UTI and acute kidney injury. Patient admitted for workup and treatment of same When I saw patient up on the medical surgical floor, awakens easily, does know where he is at and remembers who I am, does have complaint of abdominal pain more upper abdomen Opioid HPI Opioid Management Most Recent Pain and Opioid Data: Last Pain Scale 4 10/21/24 07:40 10/21/24 Last Pain Assessment 10/21/24 07:40 Last ORT Total Score 0 10/20/24 20:36 10/20/24 Last ORT Risk Category Low Risk 10/20/24 20:36 10/20/24 Review of Systems ROS Status of ROS 10 or more systems reviewed and unremark able except as noted in history and below PFSH PFSH Social History Smoking status: Light tobacco smoker Highest level of school completed/degree received: high school graduate Little interest or pleasure in doing things: not at all Feeling down, depressed, or hopeless: not at all Meds Home Medications and Allergies Home Medications ?Medication ?Instructions ?Recorded ?Confirmed ?Type carvedilol 6.25 mg tablet 6.25 mg PO DAILY 05/27/23 10/20/24 History furosemide 20 mg tablet 20 mg PO DAILY 05/27/23 10/20/24 History glimepiride 4 mg tablet 4 mg PO DAILY 05/27/23 10/20/24 History potassium chloride 20 mEq 20 meq PO DAILY 05/27/23 10/20/24 History tablet,extended release(part/cryst) (Klor-Con M) acetaminophen 500 mg tablet (Pain 1,000 mg PO .q8hr 10/20/24 10/20/24 History Reliever Extra Strength (acetaminophen)) citalopram 10 mg tablet 10 mg PO DAILY 10/20/24 10/20/24 History ezetimibe 10 mg tablet 10 mg PO DAILY 10/20/24 10/20/24 History spironolactone 50 mg tablet 50 mg PO QID 10/20/24 10/20/24 History Allergies Allergy/AdvReac Type Severity Reaction Status Date / Time No Known Drug Allergies Allergy Verified 10/20/24 15:34 Exam Constitutional Vital Signs, click to edit/add: Last Vital Signs Temp 97.7 F 10/21/24 07:43 Pulse 76 10/21/24 07:44 Resp 18 10/21/24 07:43 BP 124/75 10/21/24 07:43 Pulse Ox 94 L 10/21/24 07:43 O2 Del Method Room Air 10/21/24 07:43 Documenting provider has reviewed patient's vital signs: yes Common normals: no apparent distress Chest Common normals: inspection of chest normal Respiratory Common normals: normal respiratory effort, no use of accessory muscles and clear to auscultation bilaterally Cardio Common normals: regular rate, regular rhythm and no murmurs GI Common normals: soft to palpation; negative for Normal to inspection, nondistended, normoactive bowel sounds present (Morbid obesity) and tender (Tender in upper abdomen with positive Swan's) Extremity Common normals: normal to inspection (1+ edema which is his baseline) Results Labs Labs: Short CBC 10/20/24 10/21/24 Range/Units 16:22 06:00 WBC 6.5 7.1 (4.0-11.0) 10^3/uL Hgb 14.5 13.3 L (14.0-18.0) g/dL Hct 43.6 39.7 L (42.0-54.0) % Plt Count 142 L 123 L (150-450) 10^3/uL BMP 10/20/24 10/21/24 16:22 06:00 Sodium 136 137 Potassium 5.3 H 4.7 Chloride 104 106 Carbon Dioxide 25.9 26.2 BUN 39.0 H 41.0 H Creatinine 1.57 H 1.36 H Glucose 114 H 57 L Calcium 9.7 9.0 Liver Function 10/20/24 10/21/24 Range/Units 16:22 06:00 Total Bilirubin 4.8 H 3.1 H (0.2-1.0) mg/dL AST 112 H 198 H (15-37) U/L ALT 106 H 119 H (16-63) U/L Alkaline Phosphatase 295 H 266 H (46-116) U/L Albumin 1.8 L 1.6 L (3.4-5.0) g/dL Urine 10/20/24 Range/Units 18:20 Urine Color Yellow (YELLOW) Urine Clarity Clear (CLEAR) Urine pH 6.0 (5.0-9.0) Ur Specific [place] 1.015 (1.005-1.025) Urine Protein Negative (NEG/TRACE) mg/dL Urine Glucose (UA) Negative (NEGATIVE) mg/dL ABG ABG results: 10/20/24 16:22 VBG pH 7.362 VBG pCO2 46.4 Assessment and Plan Assessment and Plan (1) Acute UTI: (2) Nausea vomiting and diarrhea: (3) Acute kidney injury superimposed on stage 1 chronic kidney disease: (4) Cirrhosis: (5) Cholelithiasis: (6) Acute pancreatitis: (7) Thrombocytopenia: (8) Hyperkalemia: (9) Lactic acidosis: (10) Hyperbilirubinemia: (11) Coagulopathy: (12) Severe protein-calorie malnutrition: Plan Admission findings: Respiratory distress, mild hypotension, white blood cell count normal but left shift consistent with bacterial process, thrombocytopenia, hyperkalemia, acute kidney injury stage: With lactic acidosis related to either acute UTI or acute ascending cholangitis Ascending cholangitis with cholelithiasis with elevated liver function test and tenderness in upper abdomen, patient started on Rocephin, will maintain that with the addition of clindamycin to cover anaerobes and gram-positive's, may need second antibiotic for gram-negative but white blood cell count is normal, check ultrasound, maintain n.p.o. status Acute pancreatitis with elevated lipase further today-n.p.o., ultrasound pending Thrombocytopenia may be related to cirrhosis, monitor daily Liver cirrhosis with elevated liver function test and hyperbilirubinemia-but liver function test are further elevated today concerning for the above Iron deficiency anemia-monitor daily Acute kidney injury stage I-on IV fluids, improved today, baseline creatinine of 0.91, admission creatinine of 1.57 which is 172.5% above baseline Diabetes mellitus-glucose slightly low today, monitor with insulin sliding scale holding off on oral medications Hypertension-stable Depression-continue with home medications Edema-he is pretty much at his baseline currently we will hold off on diuretics due to the acute kidney injury stage I as outlined above Admission status: Patient admitted with elevated liver function test and altered mental status, liver function test further elevated today, initially placed observation but medically necessary treatment will span 2 midnights. Inpatient status
[2024-10-21 08:20] LABS: Ammonia 118 umol/L (11-32)
[2024-10-21 09:08] LABS: Bilirubin Direct 1.6 mg/dL (0.0-0.2)
[2024-10-21] MEDS: HYOSCYAMINE SULFATE 0.125 MG TAB.SUBL SL ×4 (09:19→21:10)
[2024-10-21] MEDS: LACTULOSE 10 GM/15 ML UD CUP 20 GM PO ×2 (09:19→20:40)
[2024-10-21] MEDS: RIFAXIMIN 550 MG TABLET PO ×2 (09:19→20:41)
[2024-10-21] MEDS: CITALOPRAM HYDROBROMIDE 20 MG TABLET 10 MG PO (09:19)
[2024-10-21] MEDS: CLINDAMYCIN PHOSPHATE/D5W 600 MG/50 ML PREMIX 100 MG IV ×3 (09:20→20:38)
[2024-10-21] MEDS: PANTOPRAZOLE SODIUM 40 MG VIAL IV (09:20)
[2024-10-21] MEDS: CARVEDILOL 6.25 MG TABLET PO (09:20)
[2024-10-21] MEDS: CEFTRIAXONE 2,000 MG in 0.9 % SODIUM CHLORIDE 100 ML 200 MG IV (09:22)
--- NOTE | 2024-10-21 11:10 | SWNOTE1 ---
Important Message from Medicare reviewed and discussed with patient and patient's . Pt and pt's verbalized understanding and signed the form. Original given to patient's and copy placed in patient?s chart.
--- NOTE | 2024-10-21 11:13 | SWNOTE1 ---
SW met with pt, pt's , and pt's son in room. SW discussed SNF with pt and family. Pt voiced he has been to the [facility] in the past. stated it has been a few years. did voice that pt has not been taking meds correctly and he needs to start listening and taking care of himself. Pt in agreement. Pt and in agreement for pt to go skilled and they want [facility]. SW did discuss the process and how we have to wait for insurance to approve. They voiced understanding. No further questions at this time. Referral sent to [facility]. Referral included face sheet, ED note, H&P, provider notes, case management report, nursing notes, diagnostic imaging, med list, and OT note.
[2024-10-21 11:46] LABS: Glucometer 88 mg/dL (74-106)
--- NOTE | 2024-10-21 13:04 | SWNOTE1 ---
[facility] is able to accept and they are starting precert. SW faxed PT note over as well for precert. SW notified nurse.
[2024-10-21 16:23] LABS: Glucometer 83 mg/dL (74-106)
[2024-10-21 20:34] LABS: Glucometer 43 mg/dL (74-106)
[2024-10-21 20:37] LABS: Glucometer 40 mg/dL (74-106)
[2024-10-21] MEDS: DEXTROSE 50 %-WATER 25 GM/50 ML SYRINGE IV (20:50)
[2024-10-21 21:16] LABS: Glucometer 149 mg/dL (74-106)
[2024-10-22] VITALS (19 sets, daily range): BP systolic 95–143; BP diastolic 46–82; PULSE 72–91; TEMP 36.3–36.7; O2SAT 93–99
[2024-10-22 00:29] LABS: Glucometer 51 mg/dL (74-106)
[2024-10-22] MEDS: DEXTROSE 50 %-WATER 25 GM/50 ML SYRINGE IV ×2 (00:36→04:20)
[2024-10-22] MEDS: ACETAMINOPHEN 500 MG TABLET 1000 MG PO (02:29)
[2024-10-22] MEDS: CLINDAMYCIN PHOSPHATE/D5W 600 MG/50 ML PREMIX 100 MG IV ×4 (02:31→20:26)
[2024-10-22 04:27] LABS: Glucometer 58 mg/dL (74-106)
[2024-10-22] MEDS: DEXTROSE 5%-0.9% NACL 1,000 ML 1,000 ML 75 ML IV ×2 (04:54→20:24)
[2024-10-22 04:55] LABS: Glucometer 118 mg/dL (74-106)
[2024-10-22 05:50] LABS: Eosinophils Absolute Auto 0.1 10^3/uL (0.0-0.7); Eosinophils Percent Auto 1.2 % (0.9-7.0); Hematocrit 37.4 % (42.0-54.0); Hemoglobin 12.8 g/dL (14.0-18.0); Immature Granulocytes Abs Auto 0.04 10^3/uL (0.00-0.03); Immature Granulocytes Pct Auto 0.7 % (0.0-0.5); Lymphocytes Absolute Auto 0.5 10^3/uL (1.2-3.8); Lymphocytes Percent Auto 7.9 % (20.5-60.0); Mean Corpuscular HGB Conc 34.2 g/dL (29.9-35.2); Mean Corpuscular Hemoglobin 33.8 pg (25.9-34.0); Mean Corpuscular Volume 98.7 fL (80.0-94.0); Mean Platelet Volume 10.3 fL (9.5-13.5); Monocytes Absolute Auto 0.7 10^3/uL (0.3-0.8); Monocytes Percent Auto 12.5 % (1.7-12.0); Neutrophils Absolute Auto 4.5 10^3/uL (1.4-6.5); Neutrophils Percent Auto 77.7 % (43.0-75.0); Platelet Count 111 10^3/uL (150-450); Red Blood Count 3.79 10^6/uL (4.70-6.10); Red Cell Distribution Width 16.8 % (11.0-15.0); White Blood Count 5.8 10^3/uL (4.0-11.0)
[2024-10-22 06:03] LABS: INR 1.34; Prothrombin Time 13.8 sec (9.0-11.6)
[2024-10-22 06:11] LABS: Alanine Aminotransferase 137 U/L (16-63); Albumin Globulin Ratio 0.5; Albumin Level 1.4 g/dL (3.4-5.0); Alkaline Phosphatase 227 U/L (46-116); Anion Gap 8.2; Aspartate Amino Transferase 259 U/L (15-37); BUN Creatinine Ratio 30.6; Bilirubin Total 2.2 mg/dL (0.2-1.0); Calcium 8.3 mg/dL (8.5-10.1); Carbon Dioxide 25.3 mmol/L (21.0-32.0); Chloride 106 mmol/L (98-107); Estimated GFR (African America >60 (>=60 mL/min/1.73m^2); Estimated GFR (Non-African Ame 53 (>=60 mL/min/1.73m^2); Glucose 82 mg/dL (74-106); Potassium 4.5 mmol/L (3.5-5.1); Sodium 135 mmol/L (136-145); Total Protein 4.4 g/dL (6.4-8.2)
[2024-10-22 06:15] LABS: Ammonia 57 umol/L (11-32)
[2024-10-22] MEDS: HYOSCYAMINE SULFATE 0.125 MG TAB.SUBL SL ×3 (06:25→20:24)
[2024-10-22 06:27] LABS: Glucometer 125 mg/dL (74-106)
[2024-10-22 07:35] LABS: Glucometer 60 mg/dL (74-106)
--- NOTE | 2024-10-22 08:21 | P.DS_ITS ---
DS: Providers Provider Date of admission: 10/20/24 19:48 Primary care physician: Desmond Muñoz MD Consults: 10/21/24 07:45 Consult to Contract Implementation Analyst Routine Reason for consult:: Correction Occupational Therapy Eval and Treat Routine Reason for consultation: eval and treat for rehab Physical Therapy Eval and Treat Routine Reason for consultation: eval and treat for rehab DS: Diagnosis Discharge Diagnosis (1) Acute UTI: (2) Nausea vomiting and diarrhea: (3) Acute kidney injury superimposed on stage 1 chronic kidney disease: (4) Cirrhosis: (5) Cholelithiasis: (6) Acute pancreatitis: (7) Thrombocytopenia: (8) Hyperkalemia: (9) Lactic acidosis: (10) Hyperbilirubinemia: (11) Coagulopathy: (12) Severe protein-calorie malnutrition: Plan Admission findings: Respiratory distress, mild hypotension, white blood cell count normal but left shift consistent with bacterial process, thrombocytopenia, hyperkalemia, acute kidney injury stage: With lactic acidosis related to either acute UTI or acute ascending cholangitis Ascending cholangitis with cholelithiasis with elevated liver function test and tenderness in upper abdomen, patient started on Rocephin, will maintain that with the addition of clindamycin to cover anaerobes and gram-positive's, may need second antibiotic for gram-negative but white blood cell count is normal, check ultrasound, maintain n.p.o. status Acute pancreatitis with elevated lipase further today-n.p.o., ultrasound pending Thrombocytopenia may be related to cirrhosis, monitor daily Liver cirrhosis with elevated liver function test and hyperbilirubinemia-but liver function test are further elevated today concerning for the above Iron deficiency anemia-monitor daily Acute kidney injury stage I-on IV fluids, improved today, baseline creatinine of 0.91, admission creatinine of 1.57 which is 172.5% above baseline Diabetes mellitus-glucose slightly low today, monitor with insulin sliding scale holding off on oral medications Hypertension-stable Depression-continue with home medications Edema-he is pretty much at his baseline currently we will hold off on diuretics due to the acute kidney injury stage I as outlined above Admission status: Patient admitted with elevated liver function test and altered mental status, liver function test further elevated today, initially placed observation but medically necessary treatment will span 2 midnights. Inpatient status ? DS: Summary Time Spent with Patient Time attestation: Total time spent providing and/or coordinating discharge services: Exam Constitutional Vital Signs, click to edit/add: Last Vital Signs Temp 98.0 F 10/22/24 07:39 Pulse 85 10/22/24 08:00 Resp 18 10/22/24 07:39 BP 132/72 10/22/24 07:39 Pulse Ox 93 L 10/22/24 07:39 O2 Del Method Room Air 10/22/24 07:39 DS: Data Data Completed and Pending Labs on day of discharge: Labs from last 24 hours 10/22/24 10/22/2425 07:31 06:25 05:31 WBC 5.8 RBC 3.79 L Hgb 12.8 L Hct 37.4 L MCV 98.7 H MCH 33.8 MCHC 34.2 RDW 16.8 H Plt Count 111 L MPV 10.3 Neut % (Auto) 77.7 H Lymph % (Auto) 7.9 L Hale % (Auto) 12.5 H Eos % (Auto) 1.2 Baso % (Auto) 0.0 L Neut # (Auto) 4.5 Lymph # (Auto) 0.5 L Hale # (Auto) 0.7 Eos # (Auto) 0.1 Baso # (Auto) 0.0 Abs Immat Gran (auto) 0.04 H Imm/Tot Granulo (auto) 0.7 H PT 13.8 H INR 1.34 APTT 31.0 Sodium 135 L Potassium 4.5 Chloride 106 Carbon Dioxide 25.3 Anion Gap 8.2 BUN 41.0 H Creatinine 1.34 H Est GFR ( Amer) >60 Est GFR (Non-Af Amer) 53 L BUN/Creatinine Ratio 30.6 Glucose 82 Calcium 8.3 L Total Bilirubin 2.2 H Direct Bilirubin AST 259 H ALT 137 H Alkaline Phosphatase 227 H Ammonia 57 H* Total Protein 4.4 L Albumin 1.4 L Globulin 3.0 Albumin/Globulin Ratio 0.5 Lipase 658.0 H POC Glucose 60 L 125 H 10/22/24 10/22/24 10/22/24 04:44 04:15 00:28 WBC RBC Hgb Hct MCV MCH MCHC RDW Plt Count MPV Neut % (Auto) Lymph % (Auto) Hale % (Auto) Eos % (Auto) Baso % (Auto) Neut # (Auto) Lymph # (Auto) Hale # (Auto) Eos # (Auto) Baso # (Auto) Abs Immat Gran (auto) Imm/Tot Granulo (auto) PT INR APTT Sodium Potassium Chloride Carbon Dioxide Anion Gap BUN Creatinine Est GFR ( Amer) Est GFR (Non-Af Amer) BUN/Creatinine Ratio Glucose Calcium Total Bilirubin Direct Bilirubin AST ALT Alkaline Phosphatase Ammonia Total Protein Albumin Globulin Albumin/Globulin Ratio Lipase POC Glucose 118 H 58 L 51 L 10/21/24 10/21/24 10/21/24 21:04 20:35 20:33 WBC RBC Hgb Hct MCV MCH MCHC RDW Plt Count MPV Neut % (Auto) Lymph % (Auto) Hale % (Auto) Eos % (Auto) Baso % (Auto) Neut # (Auto) Lymph # (Auto) Hale # (Auto) Eos # (Auto) Baso # (Auto) Abs Immat Gran (auto) Imm/Tot Granulo (auto) PT INR APTT Sodium Potassium Chloride Carbon Dioxide Anion Gap BUN Creatinine Est GFR ( Amer) Est GFR (Non-Af Amer) BUN/Creatinine Ratio Glucose Calcium Total Bilirubin Direct Bilirubin AST ALT Alkaline Phosphatase Ammonia Total Protein Albumin Globulin Albumin/Globulin Ratio Lipase POC Glucose 149 H 40 L* 43 L* 10/21/24 10/21/24 10/21/24 16:13 11:45 06:00 WBC RBC Hgb Hct MCV MCH MCHC RDW Plt Count MPV Neut % (Auto) Lymph % (Auto) Hale % (Auto) Eos % (Auto) Baso % (Auto) Neut # (Auto) Lymph # (Auto) Hale # (Auto) Eos # (Auto) Baso # (Auto) Abs Immat Gran (auto) Imm/Tot Granulo (auto) PT INR APTT Sodium Potassium Chloride Carbon Dioxide Anion Gap BUN Creatinine Est GFR ( Amer) Est GFR (Non-Af Amer) BUN/Creatinine Ratio Glucose Calcium Total Bilirubin Direct Bilirubin 1.6 H* AST ALT Alkaline Phosphatase Ammonia Total Protein Albumin Globulin Albumin/Globulin Ratio Lipase POC Glucose 83 88 Preliminary micro results at discharge 10/20/24 18:20 Urine Culture - Preliminary Urine,Clean Catch Pending - Specimen sent to [facility] Discharge Plan Discharge Condition: Good Discharge Medications: No Action carvedilol 6.25 mg tablet 6.25 mg PO DAILY furosemide 20 mg tablet 20 mg PO DAILY glimepiride 4 mg tablet 4 mg PO DAILY potassium chloride [Klor-Con M20] 20 mEq tablet,ER particles/crystals 20 meq PO DAILY acetaminophen [Pain Reliever ES(acetaminophn)] 500 mg tablet 1,000 mg PO .q8hr citalopram 10 mg tablet 10 mg PO DAILY ezetimibe 10 mg tablet 10 mg PO DAILY spironolactone 50 mg tablet 50 mg PO QID Print Language: Gabonese
--- NOTE | 2024-10-22 08:39 | PC.NURSE ---
Stool specimen collected at this time for ordered stool culture. Specimen sent to lab.
[2024-10-22] MEDS: PANTOPRAZOLE SODIUM 40 MG VIAL IV (08:56)
[2024-10-22] MEDS: DEXAMETHASONE SOD PHOS 4 MG/ML VIAL 10 MG IV (08:56)
[2024-10-22] MEDS: CEFTRIAXONE 2,000 MG in 0.9 % SODIUM CHLORIDE 100 ML 200 MG IV (08:58)
[2024-10-22 09:00] LABS: Glucometer 59 mg/dL (74-106)
--- NOTE | 2024-10-22 09:21 | SWNOTE1 ---
WAGNER had email from Kitty at [facility] and pt is approved. WAGNER sent message to Dr. Muñoz. Per doctor, pt is not doing well and potential transfer. WAGNER updated Kitty at [facility].
[2024-10-22] MEDS: RIFAXIMIN 550 MG TABLET PO ×2 (09:26→20:24)
[2024-10-22 10:38] LABS: C. Difficile PCR NEGATIVE
[2024-10-22 11:01] LABS: Glucometer 63 mg/dL (74-106)
[2024-10-22] MEDS: ONDANSETRON PF 4 MG/2 ML VIAL IV (11:25)
--- NOTE | 2024-10-22 11:25 | PT.DAILY ---
Physical Therapy Daily Note PT Daily Note/Assess Start: 10/22/24 11:24 Freq: Status: Active Protocol: Document 10/22/24 11:10 IAN (Rec: 10/22/24 11:25 IAN [id number]) Visit Not Completed Visit Not Completed Visit Not Completed Pt out of room Due to: Physical Therapy Daily Note/Assessment Time In/Time Out Time In 11:10 Time Out 11:10 GG. Functional Abilities and Goals-Complete for Swing Bed Patients Only [id number]. Self-Care [id number]. Mobility
[2024-10-22 11:32] LABS: Glucometer 58 mg/dL (74-106)
[2024-10-22 12:43] LABS: Alanine Aminotransferase 159 U/L (16-63); Albumin Globulin Ratio 0.4; Albumin Level 1.5 g/dL (3.4-5.0); Alkaline Phosphatase 251 U/L (46-116); Amylase 159 U/L (25-115); Anion Gap 11.5; Aspartate Amino Transferase 256 U/L (15-37); BUN Creatinine Ratio 25.7; Bilirubin Total 2.3 mg/dL (0.2-1.0); Calcium 8.5 mg/dL (8.5-10.1); Carbon Dioxide 22.3 mmol/L (21.0-32.0); Chloride 104 mmol/L (98-107); Estimated GFR (African America 56 (>=60 mL/min/1.73m^2); Estimated GFR (Non-African Ame 46 (>=60 mL/min/1.73m^2); Globulin 3.4 g/dL; Glucose 74 mg/dL (74-106); Potassium 4.8 mmol/L (3.5-5.1); Sodium 133 mmol/L (136-145); Total Protein 4.9 g/dL (6.4-8.2)
[2024-10-22] MEDS: LACTULOSE 10 GM/15 ML UD CUP 20 GM PO ×2 (15:55→20:24)
[2024-10-22 16:30] LABS: Glucometer 111 mg/dL (74-106)
[2024-10-22 20:24] LABS: Glucometer 124 mg/dL (74-106)
[2024-10-23] VITALS (9 sets, daily range): BP systolic 107–138; BP diastolic 55–81; PULSE 88–98; TEMP 36.6–36.7; O2SAT 92–94; BMI 42.5
[2024-10-23] MEDS: CLINDAMYCIN PHOSPHATE/D5W 600 MG/50 ML PREMIX 100 MG IV (02:45)
[2024-10-23] MEDS: LOPERAMIDE HCL 2 MG CAPSULE PO (03:42)
[2024-10-23 06:06] LABS: Hematocrit 37.9 % (42.0-54.0); Hemoglobin 13.1 g/dL (14.0-18.0); Mean Corpuscular HGB Conc 34.6 g/dL (29.9-35.2); Mean Corpuscular Hemoglobin 33.7 pg (25.9-34.0); Mean Corpuscular Volume 97.4 fL (80.0-94.0); Mean Platelet Volume 10.5 fL (9.5-13.5); Platelet Count 114 10^3/uL (150-450); Red Blood Count 3.89 10^6/uL (4.70-6.10); Red Cell Distribution Width 16.7 % (11.0-15.0); White Blood Count 5.7 10^3/uL (4.0-11.0)
[2024-10-23] MEDS: HYOSCYAMINE SULFATE 0.125 MG TAB.SUBL SL ×2 (06:07→11:48)
[2024-10-23 06:09] LABS: Ammonia 16 umol/L (11-32)
[2024-10-23 06:14] LABS: Alanine Aminotransferase 136 U/L (16-63); Albumin Globulin Ratio 0.5; Albumin Level 1.5 g/dL (3.4-5.0); Alkaline Phosphatase 236 U/L (46-116); Anion Gap 12.2; Aspartate Amino Transferase 175 U/L (15-37); BUN Creatinine Ratio 27.7; Bilirubin Total 2.1 mg/dL (0.2-1.0); Carbon Dioxide 22.7 mmol/L (21.0-32.0); Chloride 104 mmol/L (98-107); Estimated GFR (African America >60 (>=60 mL/min/1.73m^2); Estimated GFR (Non-African Ame 50 (>=60 mL/min/1.73m^2); Globulin 3.3 g/dL; Glucose 151 mg/dL (74-106); Potassium 4.9 mmol/L (3.5-5.1); Sodium 134 mmol/L (136-145); Total Protein 4.8 g/dL (6.4-8.2)
[2024-10-23 06:31] LABS: Calcium 8.3 mg/dL (8.5-10.1)
[2024-10-23 06:40] LABS: Lymphocytes Absolute Manual 0.17 10^3/uL (1.20-3.80); Monocytes Absolute Manual 0.17 10^3/uL (0.30-0.80); Segmented Neut Absolute Manual 5.35 10^3/uL (1.4-6.5)
--- NOTE | 2024-10-23 08:02 | P.PN_ITS ---
Progress Note: Subjective Subjective Interval history: Late note signed as pt was possible transfer Patient with no specific implant, abdominal pain is better, discussed with him labs and lipase is significantly more elevated than previous, try to get MRCP today Exam Constitutional Vital Signs, click to edit/add: Last Vital Signs Temp 97.8 F 10/23/24 03:23 Pulse 92 H 10/23/24 08:00 Resp 18 10/23/24 03:23 BP 107/55 10/23/24 03:23 Pulse Ox 92 L 10/23/24 03:23 O2 Del Method Room Air 10/23/24 03:23 Documenting provider has reviewed patient's vital signs: yes Common normals: no apparent distress Chest Common normals: inspection of chest normal Respiratory Common normals: normal respiratory effort, no use of accessory muscles and clear to auscultation bilaterally Cardio Common normals: regular rate, regular rhythm and no murmurs GI Common normals: soft to palpation; negative for Normal to inspection, nondistended, normoactive bowel sounds present (Morbid obesity) and tender (Tender in upper abdomen with positive Swan's) Extremity Common normals: normal to inspection (1+ edema which is his baseline) Progress Note: Objective Labs Labs: Short CBC 10/23/24 Range/Units 05:15 WBC 5.7 (4.0-11.0) 10^3/uL Hgb 13.1 L (14.0-18.0) g/dL Hct 37.9 L (42.0-54.0) % Plt Count 114 L (150-450) 10^3/uL BMP 10/22/24 10/23/24 12:22 05:39 Sodium 133 L 134 L Potassium 4.8 4.9 Chloride 104 104 Carbon Dioxide 22.3 22.7 BUN 39.0 H 39.0 H Creatinine 1.52 H 1.41 H Glucose 74 151 H Calcium 8.5 8.3 L Liver Function 10/22/24 10/23/24 Range/Units 12:22 05:39 Total Bilirubin 2.3 H 2.1 H (0.2-1.0) mg/dL AST 256 H 175 H (15-37) U/L ALT 159 H 136 H (16-63) U/L Alkaline Phosphatase 251 H 236 H (46-116) U/L Albumin 1.5 L 1.5 L (3.4-5.0) g/dL Progress Note: A&P Assessment and Plan (1) Acute UTI: (2) Nausea vomiting and diarrhea: (3) Acute kidney injury superimposed on stage 1 chronic kidney disease: (4) Cirrhosis: (5) Cholelithiasis: (6) Acute pancreatitis: (7) Thrombocytopenia: (8) Hyperkalemia: (9) Lactic acidosis: (10) Hyperbilirubinemia: (11) Coagulopathy: (12) Severe protein-calorie malnutrition: Plan Admission findings: Respiratory distress, mild hypotension, white blood cell count normal but left shift consistent with bacterial process, thrombocytopenia, hyperkalemia, acute kidney injury stage: With lactic acidosis related to either acute UTI or acute ascending cholangitis Ascending cholangitis with cholelithiasis with elevated liver function test and tenderness in upper abdomen, patient started on Rocephin, will maintain that with the addition of clindamycin to cover anaerobes and gram-positive's, may need second antibiotic for gram-negative but white blood cell count is normal, check ultrasound, maintain n.p.o. 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 his amylase is elevated and lipase is over 600 Coagulopathy-not progressive, continue to monitor likely related to the cirrhosis Thrombocytopenia may be related to cirrhosis, down some of her previous day Liver cirrhosis with elevated liver function test and hyperbilirubinemia- bilirubin slowly improving Iron deficiency anemia-monitor daily Acute kidney injury stage I-on IV fluids, improved today, baseline creatinine of 0.91, admission creatinine of 1.57 which is 172.5% above baseline Diabetes mellitus-glucose slightly low today, monitor with insulin sliding scale holding off on oral medications Hypertension-stable Depression-continue with home medications Edema-he is pretty much at his baseline currently we will hold off on diuretics due to the acute kidney injury stage I as outlined above Admission status: Patient admitted with elevated liver function test and altered mental status, liver function test further elevated today, initially placed observation but medically necessary treatment will span 2 midnights. Inpatient status ?
--- NOTE | 2024-10-23 08:04 | P.DS_ITS ---
DS: Providers Provider Date of admission: 10/20/24 19:48 Primary care physician: Desmond Muñoz MD Consults: 10/21/24 07:45 Consult to Net Coordinator Routine Reason for consult:: Half-Way Occupational Therapy Eval and Treat Routine Reason for consultation: eval and treat for rehab Physical Therapy Eval and Treat Routine Reason for consultation: eval and treat for rehab DS: Diagnosis Discharge Diagnosis (1) Acute UTI: (2) Nausea vomiting and diarrhea: (3) Acute kidney injury superimposed on stage 1 chronic kidney disease: (4) Cirrhosis: (5) Cholelithiasis: (6) Acute pancreatitis: (7) Thrombocytopenia: (8) Hyperkalemia: (9) Lactic acidosis: (10) Hyperbilirubinemia: (11) Coagulopathy: (12) Severe protein-calorie malnutrition: Plan Admission findings: Respiratory distress, mild hypotension, white blood cell count normal but left shift consistent with bacterial process, thrombocytopenia, hyperkalemia, acute kidney injury stage: With lactic acidosis related to either acute UTI or acute ascending cholangitis Ascending cholangitis with cholelithiasis with elevated liver function test and tenderness in upper abdomen, patient started on Rocephin, will maintain that with the addition of clindamycin to cover anaerobes and gram-positive's, may need second antibiotic for gram-negative but white blood cell count is normal, check ultrasound, maintain n.p.o. 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 his amylase is elevated and lipase is over 600 Coagulopathy-not progressive, continue to monitor likely related to the cirrhosis Thrombocytopenia may be related to cirrhosis, down some of her previous day Liver cirrhosis with elevated liver function test and hyperbilirubinemia- bilirubin slowly improving Acute UTI-on antibiotics sensitivities pending Iron deficiency anemia-monitor daily Acute kidney injury stage I-on IV fluids, improved today, baseline creatinine of 0.91, admission creatinine of 1.57 which is 172.5% above baseline Diabetes mellitus-glucose slightly low today, monitor with insulin sliding scale holding off on oral medications Hypertension-stable Depression-continue with home medications Edema-he is pretty much at his baseline currently we will hold off on diuretics due to the acute kidney injury stage I as outlined above Admission status: Patient admitted with elevated liver function test and altered mental status, liver function test further elevated today, initially placed observation but medically necessary treatment will span 2 midnights. Inpatient status ? DS: Summary Hospital Course Hospital Course: Patient was seen in the emergency room after increasing weakness and altered mental status, workup in the ER Respiratory distress, mild hypotension, white blood cell count normal but left shift consistent with bacterial process, thrombocytopenia, hyperkalemia, acute kidney injury stage: With lactic acidosis related to either acute UTI or acute ascending cholangitis. With abdominal tenderness on my exam started on more broad-spectrum antibiotics, the liver function test slowly improved throughout the hospitalization, yesterday had a spike in his lipase we maintain n.p.o. status 3 yesterday, lipase is better today, final sensitivities and UTI are still pending, if he tolerates eating with no increase in abdominal pain he can be discharged to rehab. Medications see list, follow-up with me in the office after discharge from rehab Time Spent with Patient Time attestation: Total time spent providing and/or coordinating discharge services: Exam Constitutional Vital Signs, click to edit/add: Last Vital Signs Temp 97.8 F 10/23/24 03:23 Pulse 92 H 10/23/24 08:00 Resp 18 10/23/24 03:23 BP 107/55 10/23/24 03:23 Pulse Ox 92 L 10/23/24 03:23 O2 Del Method Room Air 10/23/24 03:23 Documenting provider has reviewed patient's vital signs: yes Common normals: no apparent distress Chest Common normals: inspection of chest normal Respiratory Common normals: normal respiratory effort, no use of accessory muscles and clear to auscultation bilaterally Cardio Common normals: regular rhythm and no murmurs; irregular rate Rate: tachycardic GI Common normals: soft to palpation, non-tender (Tender in upper abdomen with positive Swan's) and no masses; negative for Normal to inspection, nondistended, normoactive bowel sounds present (Morbid obesity) Extremity Common normals: normal to inspection (1+ edema which is his baseline) DS: Data Data Completed and Pending Labs on day of discharge: Labs from last 24 hours 10/23/24 10/23/24 10/22/24 05:39 05:15 20:23 WBC 5.7 RBC 3.89 L Hgb 13.1 L Hct 37.9 L MCV 97.4 H MCH 33.7 MCHC 34.6 RDW 16.7 H Plt Count 114 L MPV 10.5 Seg Neuts % (Manual) 94.0 H Lymphocytes % (Manual) 3.0 L Monocytes % (Manual) 3.0 Eosinophils % (Manual) 0.0 L Basophils % (Manual) 0.0 L Neutrophils # (Manual) 5.35 Lymphocytes # (Manual) 0.17 L Monocytes # (Manual) 0.17 L Eosinophils # (Manual) 0.00 Basophils # (Manual) 0.00 Sodium 134 L Potassium 4.9 Chloride 104 Carbon Dioxide 22.7 Anion Gap 12.2 BUN 39.0 H Creatinine 1.41 H Est GFR ( Amer) >60 Est GFR (Non-Af Amer) 50 L BUN/Creatinine Ratio 27.7 Glucose 151 H Calcium 8.3 L Total Bilirubin 2.1 H AST 175 H ALT 136 H Alkaline Phosphatase 236 H Ammonia 16 Total Protein 4.8 L Albumin 1.5 L Globulin 3.3 Albumin/Globulin Ratio 0.5 Amylase Lipase 74.0 C. difficile Toxin PCR POC Glucose 124 H 10/22/24 10/22/24 10/22/24 16:28 12:22 11:30 WBC RBC Hgb Hct MCV MCH MCHC RDW Plt Count MPV Seg Neuts % (Manual) Lymphocytes % (Manual) Monocytes % (Manual) Eosinophils % (Manual) Basophils % (Manual) Neutrophils # (Manual) Lymphocytes # (Manual) Monocytes # (Manual) Eosinophils # (Manual) Basophils # (Manual) Sodium 133 L Potassium 4.8 Chloride 104 Carbon Dioxide 22.3 Anion Gap 11.5 BUN 39.0 H Creatinine 1.52 H Est GFR ( Amer) 56 L Est GFR (Non-Af Amer) 46 L BUN/Creatinine Ratio 25.7 Glucose 74 Calcium 8.5 Total Bilirubin 2.3 H AST 256 H ALT 159 H Alkaline Phosphatase 251 H Ammonia Total Protein 4.9 L Albumin 1.5 L Globulin 3.4 Albumin/Globulin Ratio 0.4 Amylase 159 H Lipase 315.0 H C. difficile Toxin PCR POC Glucose 111 H 58 L 10/22/24 10/22/24 10/22/24 11:00 08:58 08:30 WBC RBC Hgb Hct MCV MCH MCHC RDW Plt Count MPV Seg Neuts % (Manual) Lymphocytes % (Manual) Monocytes % (Manual) Eosinophils % (Manual) Basophils % (Manual) Neutrophils # (Manual) Lymphocytes # (Manual) Monocytes # (Manual) Eosinophils # (Manual) Basophils # (Manual) Sodium Potassium Chloride Carbon Dioxide Anion Gap BUN Creatinine Est GFR ( Amer) Est GFR (Non-Af Amer) BUN/Creatinine Ratio Glucose Calcium Total Bilirubin AST ALT Alkaline Phosphatase Ammonia Total Protein Albumin Globulin Albumin/Globulin Ratio Amylase Lipase C. difficile Toxin PCR Negative POC Glucose 63 L 59 L Preliminary micro results at discharge 10/20/24 16:16 Blood Culture Result 2 - Preliminary Blood - Right Antecubital NO GROWTH AT 36-48 HOURS. FINAL TO FOLLOW. 10/20/24 16:02 Blood Culture Result 1 - Preliminary Blood - Right Forearm NO GROWTH AT 36-48 HOURS. FINAL TO FOLLOW. 10/20/24 18:20 Urine Culture - Preliminary Urine,Clean Catch Pending - Specimen sent to [facility] Discharge Plan Discharge Disposition: Xfer SNF Condition: Good Discharge Medications: New Pro-Stat Sugar Free 15 gram- 100 kcal/30 mL Liquid In Packet 1 ea PO BID Qty: 2880 11RF amoxicillin-pot clavulanate 875-125 mg tablet 1 tab PO Q12H Qty: 20 0RF Ensure Active Protein-Muscle Liquid 1 ea PO BID Qty: 5688 11RF Xifaxan 550 mg Tablet 550 mg PO BID Qty: 60 11RF Continued carvedilol 6.25 mg tablet 6.25 mg PO DAILY furosemide 20 mg tablet 20 mg PO DAILY potassium chloride [Klor-Con M20] 20 mEq tablet,ER particles/crystals 20 meq PO DAILY acetaminophen [Pain Reliever ES(acetaminophn)] 500 mg tablet 1,000 mg PO .q8hr citalopram 10 mg tablet 10 mg PO DAILY ezetimibe 10 mg tablet 10 mg PO DAILY spironolactone 50 mg tablet 50 mg PO QID Discontinued glimepiride 4 mg tablet 4 mg PO DAILY Print Language: Malay Forms: Portal Instructions
--- NOTE | 2024-10-23 08:34 | SWNOTE1 ---
WAGNER completed HENS online. WAGNER faxed over hi med rec and updated labs to Kitty at [facility]. Possible discharge today after lunch. Approval for SNF is only good through today, if no discharge, precert will need to be started again.
[2024-10-23] MEDS: INSULIN ASPART 300 UNIT/3 ML PEN SUBQ ×2 (08:59→11:46)
[2024-10-23] MEDS: PANTOPRAZOLE SODIUM 40 MG VIAL IV (09:00)
[2024-10-23] MEDS: LACTULOSE 10 GM/15 ML UD CUP 20 GM PO (09:00)
[2024-10-23] MEDS: CEFTRIAXONE 2,000 MG in 0.9 % SODIUM CHLORIDE 100 ML 200 MG IV (09:00)
[2024-10-23] MEDS: PROSTAT 15 GM PROTEIN/100 CAL 30 ML LIQUID PACKET PO (09:00)
[2024-10-23] MEDS: CITALOPRAM HYDROBROMIDE 20 MG TABLET 10 MG PO (09:01)
[2024-10-23] MEDS: CLINDAMYCIN PHOSPHATE/D5W 600 MG/50 ML PREMIX 50 MG IV (09:01)
[2024-10-23] MEDS: CARVEDILOL 6.25 MG TABLET PO (09:01)
[2024-10-23] MEDS: RIFAXIMIN 550 MG TABLET PO (09:02)
[2024-10-23] MEDS: ENSURE HP 237 ML LIQUID PO (09:02)
[2024-10-23 11:05] LABS: Glucometer 195 mg/dL (74-106)
--- NOTE | 2024-10-23 11:31 | SWNOTE1 ---
Pt is stable for discharge today. WAGNER spoke with Kitty at [facility] and they are able to transport. [facility] will be here at 1:00 today to transport. WAGNER notified nursing and pt/pt's of time. WAGNER faxed updated dc med rec to [facility]. WAGNER took packed to med/surge floor. WAGNER completed HENS online. Pt is going skilled to [facility].
[2024-10-23 11:51] LABS: Glucometer 165 mg/dL (74-106)
--- NOTE | 2024-10-23 12:04 | SWNOTE1 ---
SW called and updated pt's with transport time as well.
--- NOTE | 2024-10-25 10:18 | PC.NURSE ---
Copyman reviewed C&S pt on Levofloxacin 750 mg daily. Copyman reviewed with Dr Muñoz and no new orders at this time.
== END 2024-10-23 13:19 | DRG 689 ==
LOC: ER 18:44 → MS 10-23 08:08
PROVIDERS: Physician Assistant; Registered Nurse; Admitting Provider Family Medicine; Emergency Provider Emergency Medicine; PCP Family Medicine; Visit Provider Family Medicine
DX: N39.0 Urinary tract infection, site not specified (principal); E43 Unspecified severe protein-calorie malnutrition; K85.90 Acute pancreatitis without necrosis or infection, unspecified; K83.09 Other cholangitis; N17.9 Acute kidney failure, unspecified; E87.20 Acidosis, unspecified; D68.9 Coagulation defect, unspecified; Z68.41 Body mass index [BMI] 40.0-44.9, adult; N18.1 Chronic kidney disease, stage 1; R11.2 Nausea with vomiting, unspecified; R19.7 Diarrhea, unspecified; K80.20 Calculus of gallbladder without cholecystitis without obstruction; K74.60 Unspecified cirrhosis of liver; D69.6 Thrombocytopenia, unspecified; E87.5 Hyperkalemia; E80.6 Other disorders of bilirubin metabolism; R06.03 Acute respiratory distress; R79.89 Other specified abnormal findings of blood chemistry; D50.9 Iron deficiency anemia, unspecified; F32.A Depression, unspecified; R60.0 Localized edema; I12.9 Hypertensive chronic kidney disease with stage 1 through stage 4 chronic kidney disease, or unspecified chronic kidney disease; E11.22 Type 2 diabetes mellitus with diabetic chronic kidney disease; E66.01 Morbid (severe) obesity due to excess calories; F17.200 Nicotine dependence, unspecified, uncomplicated; Z79.84 Long term (current) use of oral hypoglycemic drugs; Z79.899 Other long term (current) drug therapy; E86.0 Dehydration; R55 Syncope and collapse; E86.1 Hypovolemia; B96.89 Other specified bacterial agents as the cause of diseases classified elsewhere
CPT/HCPCS: 36415; 70450; 71045; 74177; 76705; 80053; 81001; 82140; 82150; 82248; 82800; 82948; 83605; 83690; 83735; 83880; 84484; 85007; 85025; 85027; 85610; 85730; 86140; 87040; 87045; 87046; 87086; 87150; 87186; 87427; 87493; 87804; 87811; 93005; 94761; 96361; 96365; 96375; 96376; 97161; 97165; 97530; 97535; 99285; G0328; G0378; J0696; J1100; J2405; Q9966

== ENCOUNTER 2024-11-18 04:04 | Inpatient (IN) | payer MEDICARE, SELFPAY ==
[2024-11-18] VITALS (15 sets, daily range): BP systolic 104–120; BP diastolic 53–72; PULSE 69–79; TEMP 36.3–36.8; O2SAT 94–99; BMI 43.0; BMI 43.5
--- NOTE | 2024-11-18 04:19 | ED_ITS ---
HPI HPI - Fall General Chief Complaint: Fall Stated Complaint: FALL Time Seen by Provider: 11/18/24 04:16 Source: patient Mode of arrival: ambulance History of Present Illness HPI Narrative: patient loss balance at home and fell striking his right chest and face/forehead. denies loc. Sustained paper cut left arm and bruise left chest. Denies injury to hips or lower ext. Denies weakness of the upper ext Related Data Home Medications ?Medication ?Instructions ?Recorded ?Confirmed carvedilol 6.25 mg tablet 6.25 mg PO DAILY 05/27/23 11/18/24 furosemide 20 mg tablet 20 mg PO DAILY 05/27/23 11/18/24 potassium chloride 20 mEq 20 meq PO DAILY 05/27/23 11/18/24 tablet,extended release(part/cryst) (Klor-Con M) citalopram 10 mg tablet 10 mg PO DAILY 10/20/24 11/18/24 ezetimibe 10 mg tablet 10 mg PO DAILY 10/20/24 11/18/24 spironolactone 50 mg tablet 50 mg PO QID 10/20/24 11/18/24 amlodipine 2.5 mg tablet 2.5 mg PO DAILY 11/18/24 11/18/24 glimepiride 4 mg tablet 4 mg PO DAILY 11/18/24 11/18/24 olanzapine 2.5 mg tablet 2.5 mg PO DAILY 11/18/24 11/18/24 Allergies Allergy/AdvReac Type Severity Reaction Status Date / Time No Known Drug Allergies Allergy Verified 11/18/24 04:11 Opioid HPI Opioid Management Most Recent Pain and Opioid Data: 2 Last Pain Scale 0 10/23/24 10:20 10/23/24 Last ORT Total Score 0 10/20/24 20:36 10/20/24 Last ORT Risk Category Low Risk 10/20/24 20:36 10/20/24 Review of Systems 2 ROS0 Status of ROS 10 or more systems reviewed and unremark able except as noted in history and below [facility] Medical History (Updated 11/18/24 @ 06:51 by Lior Dubon MD) Severe protein-calorie malnutrition ?E43 - Unspecified severe protein-calorie malnutrition (ICD-10) Coagulopathy ?D68.9 - Coagulation defect, unspecified (ICD-10) Hyperbilirubinemia ?E80.6 - Other disorders of bilirubin metabolism (ICD-10) Lactic acidosis ?E87.20 - Acidosis, unspecified (ICD-10) Hyperkalemia ?E87.5 - Hyperkalemia (ICD-10) Thrombocytopenia ?D69.6 - Thrombocytopenia, unspecified (ICD-10) Acute pancreatitis ?K85.90 - Acute pancreatitis without necrosis or infection, unspecified (ICD- 10) Cholelithiasis ?K80.20 - Calculus of gallbladder without cholecystitis without obstruction (ICD-10) Cirrhosis ?K74.60 - Unspecified cirrhosis of liver (ICD-10) Acute kidney injury superimposed on stage 1 chronic kidney disease ?N17.9 - Acute kidney failure, unspecified (ICD-10) ?N18.1 - Chronic kidney disease, stage 1 (ICD-10) Acute UTI ?N39.0 - Urinary tract infection, site not specified (ICD-10) Nausea vomiting and diarrhea ?R11.2 - Nausea with vomiting, unspecified (ICD-10) ?R19.7 - Diarrhea, unspecified (ICD-10) Hypovolemia ?E86.1 - Hypovolemia (ICD-10) Syncope ?R55 - Syncope and collapse (ICD-10) Dehydration ?E86.0 - Dehydration (ICD-10) Social History Smoking status: Light tobacco smoker Highest level of school completed/degree received: high school graduate Little interest or pleasure in doing things: not at all Feeling down, depressed, or hopeless: not at all Exam Constitutional Vital Signs, click to edit/add: Last Vital Signs Temp 97.7 F 11/18/24 04:08 Pulse 73 11/18/24 05:22 Resp 19 11/18/24 05:22 BP 105/53 11/18/24 05:22 Pulse Ox 99 11/18/24 05:22 O2 Del Method Room Air 11/18/24 04:08 Common normals: no apparent distress, oriented x3, healthy appearing, alert and well nourished [facility] Common normals: normocephalic and head/scalp atraumatic Eye Common normals: EOMs intact bilaterally and conjunctivae normal Chest Chest images (male): 2 1. hematoma bruise Respiratory Common normals: normal respiratory effort, no retractions and no use of accessory muscles Cardio Common normals: regular rate, regular rhythm, S1 normal heart sound and S2 normal heart sound GI Common normals: Normal to inspection, nondistended, normoactive bowel sounds present and soft to palpation Extremity Common normals: full ROM Other: superficial paper cut left arm Neuro Common normals: oriented x3, CN's II-XII intact bilaterally, moves all extremities and no focal motor deficits Psych Appearance: grossly normal Course Vital Signs Vital signs: Vital Signs Temperature 97.7 F 11/18/24 04:08 Pulse Rate 75 11/18/24 04:08 Respiratory Rate 16 11/18/24 04:08 Blood Pressure 104/59 11/18/24 04:08 Pulse Oximetry 98 11/18/24 04:08 Oxygen Delivery Method Room Air 11/18/24 04:08 Temperature 97.7 F 11/18/24 04:08 Pulse Rate 73 11/18/24 05:22 Respiratory Rate 19 11/18/24 05:22 Blood Pressure 105/53 11/18/24 05:22 Pulse Oximetry 99 11/18/24 05:22 Oxygen Delivery Method Room Air 11/18/24 04:08 MDM - Fall MDM Narrative Medical decision making narrative: patient fell at home. sustained minor cut left arm that will not require repair. Struck his head and right chest. No respiratory distress. Moves all 4 extremities. labs demonstrate CKD and macrocytosis. Diagnostic studies pending at change of shift. Care transferred to [facility] physician Lab Data Labs: Lab Results 11/18/24 Range/Units 04:35 WBC 6.1 (4.0-11.0) 10^3/uL RBC 3.55 L (4.70-6.10) 10^6/uL Hgb 12.4 L (14.0-18.0) g/dL Hct 36.1 L (42.0-54.0) % MCV 101.7 H (80.0-94.0) fL MCH 34.9 H (25.9-34.0) pg MCHC 34.3 (29.9-35.2) g/dL RDW 17.4 H (11.0-15.0) % Plt Count 174 (150-450) 10^3/uL MPV 9.9 (9.5-13.5) fL Seg Neuts % (Manual) 73.0 (43.0-75.0) Lymphocytes % (Manual) 3.0 L (20.5-60.0) % Atypical Lymphs % (Man) 5.0 % Monocytes % (Manual) 16.0 H (1.7-12.0) % Eosinophils % (Manual) 3.0 (0.9-7.0) % Basophils % (Manual) 0.0 L (0.2-2.0) % Neutrophils # (Manual) 4.45 (1.4-6.5) 10^3/uL Lymphocytes # (Manual) 0.18 L (1.20-3.80) 10^3/uL Abs Atypical Lymphs Man 0.30 Monocytes # (Manual) 0.97 H (0.30-0.80) 10^3/uL Eosinophils # (Manual) 0.18 (0.00-0.70) 10^3/uL Basophils # (Manual) 0.00 (0.00-0.10) 10^3/uL Sodium 136 (136-145) mmol/L Potassium 5.1 (3.5-5.1) mmol/L Chloride 103 (98-107) mmol/L Carbon Dioxide 28.8 (21.0-32.0) mmol/L Anion Gap 9.3 BUN 36.0 H (7.0-18.0) mg/dL Creatinine 1.37 H (0.70-1.30) mg/dL Est GFR ( Amer) >60 (>=60 mL/min/1.73m^2) Est GFR (Non-Af Amer) 52 L (>=60 mL/min/1.73m^2) BUN/Creatinine Ratio 26.3 Glucose 73 L (74-106) mg/dL Calcium 8.7 (8.5-10.1) mg/dL Discharge Plan Discharge Chief Complaint: Fall Clinical Impression: Head injury, Chest wall contusion, Laceration of left forearm Patient Disposition: Still a Patient Prescriptions / Home Meds: No Action amlodipine 2.5 mg tablet 2.5 mg PO DAILY glimepiride 4 mg tablet 4 mg PO DAILY olanzapine 2.5 mg tablet 2.5 mg PO DAILY carvedilol 6.25 mg tablet 6.25 mg PO DAILY furosemide 20 mg tablet 20 mg PO DAILY potassium chloride [Klor-Con M20] 20 mEq tablet,ER particles/crystals 20 meq PO DAILY citalopram 10 mg tablet 10 mg PO DAILY ezetimibe 10 mg tablet 10 mg PO DAILY spironolactone 50 mg tablet 50 mg PO QID Print Language: Polish Referrals: Desmond Muñoz MD [Primary Care Provider] - 1 week
--- NOTE | 2024-11-18 04:23 | PC.NURSE ---
complains of fall, this patient lost his balance while bending over picking up toilet lid. this patient has skin tears to his right hand and left lower arm, and no active bleeding . this patient denies hitting his head and no loc. this patient voices no concerns and shows no sign of distress
[2024-11-18 04:44] LABS: Hematocrit 36.1 % (42.0-54.0); Hemoglobin 12.4 g/dL (14.0-18.0); Mean Corpuscular HGB Conc 34.3 g/dL (29.9-35.2); Mean Corpuscular Hemoglobin 34.9 pg (25.9-34.0); Mean Corpuscular Volume 101.7 fL (80.0-94.0); Mean Platelet Volume 9.9 fL (9.5-13.5); Platelet Count 174 10^3/uL (150-450); Red Blood Count 3.55 10^6/uL (4.70-6.10); Red Cell Distribution Width 17.4 % (11.0-15.0); White Blood Count 6.1 10^3/uL (4.0-11.0)
[2024-11-18 04:53] LABS: Anion Gap 9.3; BUN Creatinine Ratio 26.3; Calcium 8.7 mg/dL (8.5-10.1); Carbon Dioxide 28.8 mmol/L (21.0-32.0); Chloride 103 mmol/L (98-107); Estimated GFR (African America >60 (>=60 mL/min/1.73m^2); Estimated GFR (Non-African Ame 52 (>=60 mL/min/1.73m^2); Glucose 73 mg/dL (74-106); Potassium 5.1 mmol/L (3.5-5.1); Sodium 136 mmol/L (136-145)
[2024-11-18 05:05] LABS: Eosinophils Absolute Manual 0.18 10^3/uL (0.00-0.70); Lymphocytes Absolute Manual 0.18 10^3/uL (1.20-3.80); Monocytes Absolute Manual 0.97 10^3/uL (0.30-0.80); Segmented Neut Absolute Manual 4.45 10^3/uL (1.4-6.5)
--- NOTE | 2024-11-18 05:25 | PC.NURSE ---
this patient just returned from from CT dept, and updated that now we are waiting on ct results. this patient awake and alert and voices no concerns and shows no signs of distress
[2024-11-18] MEDS: BACITRACIN OINTMENT 28.4 GM TUBE 1 APPLIC TOPICAL (07:30)
[2024-11-18 08:07] LABS: Alanine Aminotransferase 123 U/L (16-63); Albumin Globulin Ratio 0.5; Albumin Level 1.7 g/dL (3.4-5.0); Alkaline Phosphatase 269 U/L (46-116); Amylase 67 U/L (25-115); Aspartate Amino Transferase 108 U/L (15-37); Bilirubin Total 1.9 mg/dL (0.2-1.0); Globulin 3.6 g/dL; Total Protein 5.3 g/dL (6.4-8.2)
[2024-11-18 08:16] LABS: Bilirubin Direct 1.2 mg/dL (0.0-0.2)
--- NOTE | 2024-11-18 08:31 | ED.GENADUL1 ---
HPI HPI - General Adult General Chief complaint: Fall Stated complaint: FALL Time Seen by Provider: 11/18/24 04:16 Source: patient Mode of arrival: ambulance History of Present Illness HPI narrative: 68-year-old male presented to the emergency department was initially seen by Dr. Dubon and signed out to me after discussing the case with him thoroughly. Please see his full history and physical exam. Related Data Home Medications ?Medication ?Instructions ?Recorded ?Confirmed carvedilol 6.25 mg tablet 6.25 mg PO DAILY 05/27/23 11/18/24 furosemide 20 mg tablet 20 mg PO DAILY 05/27/23 11/18/24 potassium chloride 20 mEq 20 meq PO DAILY 05/27/23 11/18/24 tablet,extended release(part/cryst) (Klor-Con M) citalopram 10 mg tablet 10 mg PO DAILY 10/20/24 11/18/24 ezetimibe 10 mg tablet 10 mg PO DAILY 10/20/24 11/18/24 spironolactone 50 mg tablet 50 mg PO QID 10/20/24 11/18/24 amlodipine 2.5 mg tablet 2.5 mg PO DAILY 11/18/24 11/18/24 glimepiride 4 mg tablet 4 mg PO DAILY 11/18/24 11/18/24 olanzapine 2.5 mg tablet 2.5 mg PO DAILY 11/18/24 11/18/24 Allergies Allergy/AdvReac Type Severity Reaction Status Date / Time No Known Drug Allergies Allergy Verified 11/18/24 04:11 Opioid HPI Opioid Management Most Recent Opioid Data: Last Pain Scale 0 10/23/24 10:20 10/23/24 Last ORT Total Score 0 10/20/24 20:36 10/20/24 Last ORT Risk Category Low Risk 10/20/24 20:36 10/20/24 [facility] Medical History (Updated 11/18/24 @ 08:34 by Hira Ulloa MD) Severe protein-calorie malnutrition ?E43 - Unspecified severe protein-calorie malnutrition (ICD-10) Coagulopathy ?D68.9 - Coagulation defect, unspecified (ICD-10) Hyperbilirubinemia ?E80.6 - Other disorders of bilirubin metabolism (ICD-10) Lactic acidosis ?E87.20 - Acidosis, unspecified (ICD-10) Hyperkalemia ?E87.5 - Hyperkalemia (ICD-10) Thrombocytopenia ?D69.6 - Thrombocytopenia, unspecified (ICD-10) Acute pancreatitis ?K85.90 - Acute pancreatitis without necrosis or infection, unspecified (ICD-10) Cholelithiasis ?K80.20 - Calculus of gallbladder without cholecystitis without obstruction (ICD-10) Cirrhosis ?K74.60 - Unspecified cirrhosis of liver (ICD-10) Acute kidney injury superimposed on stage 1 chronic kidney disease ?N17.9 - Acute kidney failure, unspecified (ICD-10) ?N18.1 - Chronic kidney disease, stage 1 (ICD-10) Acute UTI ?N39.0 - Urinary tract infection, site not specified (ICD-10) Nausea vomiting and diarrhea ?R11.2 - Nausea with vomiting, unspecified (ICD-10) ?R19.7 - Diarrhea, unspecified (ICD-10) Hypovolemia ?E86.1 - Hypovolemia (ICD-10) Syncope ?R55 - Syncope and collapse (ICD-10) Dehydration ?E86.0 - Dehydration (ICD-10) Social History Smoking status: Light tobacco smoker Highest level of school completed/degree received: high school graduate Little interest or pleasure in doing things: not at all Feeling down, depressed, or hopeless: not at all Exam Constitutional Vital Signs, click to edit/add: Last Vital Signs Temp 97.7 F 11/18/24 04:08 Pulse 73 11/18/24 05:22 Resp 19 11/18/24 05:22 BP 105/53 11/18/24 05:22 Pulse Ox 99 11/18/24 05:22 O2 Del Method Room Air 11/18/24 04:08 Course Vital Signs Vital signs: Vital Signs Temperature 97.7 F 11/18/24 04:08 Pulse Rate 75 11/18/24 04:08 Respiratory Rate 16 11/18/24 04:08 Blood Pressure 104/59 11/18/24 04:08 Pulse Oximetry 98 11/18/24 04:08 Oxygen Delivery Method Room Air 11/18/24 04:08 Temperature 97.7 F 11/18/24 04:08 Pulse Rate 73 11/18/24 05:22 Respiratory Rate 19 11/18/24 05:22 Blood Pressure 105/53 11/18/24 05:22 Pulse Oximetry 99 11/18/24 05:22 Oxygen Delivery Method Room Air 11/18/24 04:08 Medical Decision Making MDM Narrative Medical decision making narrative: CAT scans do not show any fracture or acute injury from the fall. Blood work is nonspecific. He is being admitted for observation as he cannot ambulate. Findings were discussed with the patient Differential Diagnosis Differential Diagnosis: Intracranial hemorrhage, C-spine fracture, pneumothorax, rib fracture Lab Data Lab results reviewed: Yes I reviewed the patient's lab results Labs: Lab Results 11/18/24 Range/Units 04:35 WBC 6.1 (4.0-11.0) 10^3/uL RBC 3.55 L (4.70-6.10) 10^6/uL Hgb 12.4 L (14.0-18.0) g/dL Hct 36.1 L (42.0-54.0) % MCV 101.7 H (80.0-94.0) fL MCH 34.9 H (25.9-34.0) pg MCHC 34.3 (29.9-35.2) g/dL RDW 17.4 H (11.0-15.0) % Plt Count 174 (150-450) 10^3/uL MPV 9.9 (9.5-13.5) fL Seg Neuts % (Manual) 73.0 (43.0-75.0) Lymphocytes % (Manual) 3.0 L (20.5-60.0) % Atypical Lymphs % (Man) 5.0 % Monocytes % (Manual) 16.0 H (1.7-12.0) % Eosinophils % (Manual) 3.0 (0.9-7.0) % Basophils % (Manual) 0.0 L (0.2-2.0) % Neutrophils # (Manual) 4.45 (1.4-6.5) 10^3/uL Lymphocytes # (Manual) 0.18 L (1.20-3.80) 10^3/uL Abs Atypical Lymphs Man 0.30 Monocytes # (Manual) 0.97 H (0.30-0.80) 10^3/uL Eosinophils # (Manual) 0.18 (0.00-0.70) 10^3/uL Basophils # (Manual) 0.00 (0.00-0.10) 10^3/uL Sodium 136 (136-145) mmol/L Potassium 5.1 (3.5-5.1) mmol/L Chloride 103 (98-107) mmol/L Carbon Dioxide 28.8 (21.0-32.0) mmol/L Anion Gap 9.3 BUN 36.0 H (7.0-18.0) mg/dL Creatinine 1.37 H (0.70-1.30) mg/dL Est GFR ( Amer) >60 (>=60 mL/min/1.73m^2) Est GFR (Non-Af Amer) 52 L (>=60 mL/min/1.73m^2) BUN/Creatinine Ratio 26.3 Glucose 73 L (74-106) mg/dL Calcium 8.7 (8.5-10.1) mg/dL Total Bilirubin 1.9 H (0.2-1.0) mg/dL Direct Bilirubin 1.2 H* (0.0-0.2) mg/dL AST 108 H (15-37) U/L ALT 123 H (16-63) U/L Alkaline Phosphatase 269 H (46-116) U/L Total Protein 5.3 L (6.4-8.2) g/dL Albumin 1.7 L (3.4-5.0) g/dL Globulin 3.6 g/dL Albumin/Globulin Ratio 0.5 Amylase 67 (25-115) U/L Lipase 131.0 H (16.0-77.0) U/L Imaging Data CT brain, CT C-spine, CT abdomen, CT chest: Radiologist's impression: CT chest: Subcutaneous contusion in the right upper chest wall, ascending aortic aneurysm measuring [address] abdomen: Small volume ascites, cirrhotic and heterogeneous liver, indeterminate right renal lesion CT brain: No acute intracranial abnormality CT cervical spine: Mild multilevel discogenic degenerative changes, no acute fracture or traumatic malalignment Discharge Plan Discharge Chief Complaint: Fall Clinical Impression: Head injury, Chest wall contusion, Laceration of left forearm, Generalized weakness Patient Disposition: Admitted as Observation Time of Disposition Decision: 08:34 Prescriptions / Home Meds: No Action amlodipine 2.5 mg tablet 2.5 mg PO DAILY glimepiride 4 mg tablet 4 mg PO DAILY olanzapine 2.5 mg tablet 2.5 mg PO DAILY carvedilol 6.25 mg tablet 6.25 mg PO DAILY furosemide 20 mg tablet 20 mg PO DAILY potassium chloride [Klor-Con M20] 20 mEq tablet,ER particles/crystals 20 meq PO DAILY citalopram 10 mg tablet 10 mg PO DAILY ezetimibe 10 mg tablet 10 mg PO DAILY spironolactone 50 mg tablet 50 mg PO QID Print Language: British Referrals: Desmond Muñoz MD [Primary Care Provider] - 1 week
--- NOTE | 2024-11-18 09:26 | P.HP_ITS ---
HPI H&P: HPI History of Present Illness Chief complaint: FALL; GENERALIZED WEAKNESS Narrative: Pt presented to ER chemical fall, denies chest pain or shortness of breath or syncope with the fall just got little weak and fell. In ER found to have significant tachycardia with significant weakness and unable to stand. This could be related to his progressive liver failure, I saw patient in the emergency room, resting fairly comfortably in bed as long as he does not move his pain is controlled but he has pain and weakness in secondary to the mechanical fall Opioid HPI Opioid Management Most Recent Pain and Opioid Data: Last Pain Scale 0 10/23/24 10:20 10/23/24 Last ORT Total Score 1 11/18/24 09:20 11/18/24 Last ORT Risk Category Low Risk 11/18/24 09:20 11/18/24 Review of Systems ROS Status of ROS 10 or more systems reviewed and unremark able except as noted in history and below [facility] Medical History (Updated 11/18/24 @ 08:34 by Hira Ulloa MD) Severe protein-calorie malnutrition ?E43 - Unspecified severe protein-calorie malnutrition (ICD-10) Coagulopathy ?D68.9 - Coagulation defect, unspecified (ICD-10) Hyperbilirubinemia ?E80.6 - Other disorders of bilirubin metabolism (ICD-10) Lactic acidosis ?E87.20 - Acidosis, unspecified (ICD-10) Hyperkalemia ?E87.5 - Hyperkalemia (ICD-10) Thrombocytopenia ?D69.6 - Thrombocytopenia, unspecified (ICD-10) Acute pancreatitis ?K85.90 - Acute pancreatitis without necrosis or infection, unspecified (ICD- 10) Cholelithiasis ?K80.20 - Calculus of gallbladder without cholecystitis without obstruction (ICD-10) Cirrhosis ?K74.60 - Unspecified cirrhosis of liver (ICD-10) Acute kidney injury superimposed on stage 1 chronic kidney disease ?N17.9 - Acute kidney failure, unspecified (ICD-10) ?N18.1 - Chronic kidney disease, stage 1 (ICD-10) Acute UTI ?N39.0 - Urinary tract infection, site not specified (ICD-10) Nausea vomiting and diarrhea ?R11.2 - Nausea with vomiting, unspecified (ICD-10) ?R19.7 - Diarrhea, unspecified (ICD-10) Hypovolemia ?E86.1 - Hypovolemia (ICD-10) Syncope ?R55 - Syncope and collapse (ICD-10) Dehydration ?E86.0 - Dehydration (ICD-10) Family History (Updated 11/18/24 @ 09:31 by Yolis Coates RN) Father Family history of myocardial infarction Mother Family history of hypertension Family history of cancer Social History Within the past year, how often did you have a drink containing alcohol: never Score interpretation: A score less than 4 is consistent with normal alcohol consumption. Smoking status: Former smoker Non-prescribed substance use: denies use Highest level of school completed/degree received: high school graduate Little interest or pleasure in doing things: not at all Feeling down, depressed, or hopeless: not at all Meds Home Medications and Allergies Home Medications ?Medication ?Instructions ?Recorded ?Confirmed ?Type carvedilol 6.25 mg tablet 6.25 mg PO DAILY 05/27/23 11/18/24 History furosemide 20 mg tablet 20 mg PO DAILY 05/27/23 11/18/24 History potassium chloride 20 mEq 20 meq PO DAILY 05/27/23 11/18/24 History tablet,extended release(part/cryst) (Klor-Con M) citalopram 10 mg tablet 10 mg PO DAILY 10/20/24 11/18/24 History ezetimibe 10 mg tablet 10 mg PO DAILY 10/20/24 11/18/24 History spironolactone 50 mg tablet 50 mg PO QID 10/20/24 11/18/24 History amlodipine 2.5 mg tablet 2.5 mg PO DAILY 11/18/24 11/18/24 History glimepiride 4 mg tablet 4 mg PO DAILY 11/18/24 11/18/24 History olanzapine 2.5 mg tablet 2.5 mg PO DAILY 11/18/24 11/18/24 History Allergies Allergy/AdvReac Type Severity Reaction Status Date / Time No Known Drug Allergies Allergy Verified 11/18/24 04:11 Exam Constitutional Vital Signs, click to edit/add: Last Vital Signs Temp 97.7 F 11/18/24 04:08 Pulse 73 11/18/24 05:22 Resp 19 11/18/24 05:22 BP 105/53 11/18/24 05:22 Pulse Ox 99 11/18/24 05:22 O2 Del Method Room Air 11/18/24 04:08 Documenting provider has reviewed patient's vital signs: yes Common normals: no apparent distress Respiratory Common normals: normal respiratory effort and no retractions Cardio Common normals: regular rate and regular rhythm GI Common normals: Normal to inspection, nondistended, normoactive bowel sounds present and soft to palpation Back & Pelvis Common normals: thoracic and lumbar spine normal to inspection; thoracic and/or lumbar spine tender (Moderate low back tenderness and pain with ROM) Neuro Other: Decreased active lower extremity secondary to pain Results Labs Labs: Short CBC 11/18/24 Range/Units 04:35 WBC 6.1 (4.0-11.0) 10^3/uL Hgb 12.4 L (14.0-18.0) g/dL Hct 36.1 L (42.0-54.0) % Plt Count 174 (150-450) 10^3/uL BMP 11/18/24 04:35 Sodium 136 Potassium 5.1 Chloride 103 Carbon Dioxide 28.8 BUN 36.0 H Creatinine 1.37 H Glucose 73 L Calcium 8.7 Liver Function 11/18/24 Range/Units 04:35 Total Bilirubin 1.9 H (0.2-1.0) mg/dL Direct Bilirubin 1.2 H* (0.0-0.2) mg/dL AST 108 H (15-37) U/L ALT 123 H (16-63) U/L Alkaline Phosphatase 269 H (46-116) U/L Albumin 1.7 L (3.4-5.0) g/dL Assessment and Plan Assessment and Plan (1) Generalized weakness: (2) Severe protein-calorie malnutrition: (3) Hyperbilirubinemia: (4) Acute pancreatitis: (5) Cirrhosis: (6) Acute kidney injury superimposed on stage 1 chronic kidney disease: Plan Admission findings: Sinus tachycardia, mild elevation in creatinine, hyperbilirubinemia with elevated liver function test and amylase normal but lipase elevated. CT scan does not show pancreatitis, not tender in that area and is likely chronic for him secondary to his cirrhosis Mechanical fall-physical therapy to work with patient, pain in lower back, check LS-spine CT scan, patient likely needs rehab for lower extremity weakness Hypertension-continue with home medications Anxiety and depression continue with home medications Liver cirrhosis-monitor labs daily Likely chronic elevation of lipase-repeat in a.m. Admission findings: Patient with significant lower extremity weakness status post fall-CT scan pending, medically necessary treatment will span 2 midnights. IV pain medications will be required, inpatient status
[2024-11-18 11:00] LABS: Ammonia 28 umol/L (11-32)
[2024-11-18 11:09] LABS: Glucometer 81 mg/dL (74-106)
[2024-11-18] MEDS: ORPHENADRINE 60 MG/2 ML VIAL IV ×2 (11:10→21:47)
[2024-11-18] MEDS: 0.9 % SODIUM CHLORIDE 1,000 ML 100 ML IV ×2 (11:10→21:48)
[2024-11-18 11:13] LABS: Creatine Kinase 49 U/L (39-308); Magnesium 1.9 mg/dL (1.8-2.4); Myoglobin 143 ng/mL (16-96)
--- NOTE | 2024-11-18 11:20 | SWNOTE1 ---
Important Message from Medicare reviewed and discussed with patient in the room and over the phone with pt's . Pt and pt's verbalized understanding and SW signed the form that it was reviewed. Original placed in pt's room and copy placed in patient?s chart.
--- NOTE | 2024-11-18 11:21 | SWNOTE1 ---
SW was consulted for pt to go to rehab and in consult [facility] was rehab facility. SW met with pt to discuss dc needs. Lab was in room as well. SW discussed with pt his fall at home. He voiced he went to the bathroom and he just remembers falling and possibly blacking out. He stated he was supposed to call his when he had to use restroom, but decided since it was 2:30 am he was going to try himself. Pt was at [facility] skilled when he left here last time, but has since returned home. SW and pt spoke about rehab again. Pt does want to do this. SW asked where he wanted to go? PT voiced the [facility]. SW asked what had happened at [facility]. He stated he did not get enough therapy and the therapist was and sometimes just pushed him in wheelchair. Pt would like to try [facility]. SW asked if his was coming in? He stated he was not sure, but SW can call him as she does make the decisions. SW to call. SW also let pt know that PT/OT will be coming in to work with him as well. Pt voiced understanding. SW called pt's , Annika. She expressed that he has to go to rehab as he does not have a choice. SW informed her that he has agreed to rehab. SW also let her know that therapy has to come work with him and we have to see what there recommendations are as well. WAGNER then asked what happened at [facility] during rehab? She stated they only worked with him for an hour and then he would sit there all day. WAGNER advised pt's that this may be the case at all facilities due to insurance guidelines. WAGNER advised that pt can always ask nursing to go for a walk or go down to dining area. She stated that [facility] was short staff and pt had told her that he did not want to bother them. She voiced frustration with pt and him not eating or drinking. SW advised that SW will encourage pt to eat and drink and try to stay active. Pt's stated that she has not heard good things about [facility] or the [facility], but she does not want to go out of town. She would like SW to try the [facility]. WAGNER did reach out to Renate at [facility] and they will check benefits and let SW know. WAGNER faxed over face sheet, ED notes, H&P, case management report, vitals, and med list to [facility].
--- NOTE | 2024-11-18 12:08 | SWNOTE1 ---
WAGNER heard back from Renate at [facility] and they are able to accept his insurance and able to accept him as well. They will need therapy to start precert. WAGNER did notify Renate that SW may only get PT today as OT attempted to see pt, but he was down getting imaging done.
[2024-11-18 12:40] LABS: Bilirubin Urine NEGATIVE (NEGATIVE); Blood Urine TRACE-I (NEGATIVE); Clarity Urine CLEAR (CLEAR); Color Urine YELLOW (YELLOW); Glucose Urine UA NEGATIVE (NEGATIVE); Ketones Urine NEGATIVE (NEGATIVE); Leukocyte Esterase Urine TRACE (NEGATIVE); Nitrite Urine POSITIVE (NEGATIVE); Protein Urine NEGATIVE (NEG/TRACE)
[2024-11-18 12:57] LABS: Bacteria Urine LARGE #/HPF (NONE SEEN); RBC Urine 0-2 #/HPF (0-2)
[2024-11-18 13:00] LABS: Cast Seen? NONE SEEN #/LPF (NONE SEEN); Crystals Seen? None Seen #/HPF (None Seen); Mucus Urine NONE SEEN (NONE SEEN); Squamous Epithelial Cell Urine RARE #/LPF (NONE/RARE); Urine Culture Indicated ALREADY ORDERED
--- NOTE | 2024-11-18 14:14 | SWNOTE1 ---
[facility] did ask WAGNER what day he left the [facility]. WAGNER advised Renate that WAGNER was unsure, but can ask pt/. WAGNER stopped in and asked pt and he stated he left on Saturday the . He stated he had 20 days and after the 20 days it would be out of pocket. WAGNER asked to call his and confirm. WAGNER called , no answer. WAGNER looked at calendar and the 15 of November is a Saturday. SW to reach out to [facility].
--- NOTE | 2024-11-18 14:17 | SWNOTE1 ---
Pt does not have a secondary. Renate at [facility] has already let SW know that his benefits came back alright. SW unsure if pt will have co-pay days. Waiting to hear back from [facility] and will update [facility].
--- NOTE | 2024-11-18 14:21 | SWNOTE1 ---
WAGNER heard back from Kitty at [facility] and pt was dc on 11/06 after the insurance cut him. WAGNER updated Renate at [facility].
--- NOTE | 2024-11-18 14:36 | SWNOTE1 ---
WAGNER sent PT note over. Renate messaged back and precert is started.
--- NOTE | 2024-11-18 14:54 | DIETREC ---
Recommend change diet order to 2000 kcal Low Fat diet. Recommend supplements: 237 mL Ensure High PRO BID and 30 mL PRO-stat TID. [place] text to Dr. Muñoz.
[2024-11-18 16:26] LABS: Glucometer 98 mg/dL (74-106)
[2024-11-18 20:15] LABS: Glucometer 111 mg/dL (74-106)
[2024-11-19] VITALS (21 sets, daily range): BP systolic 121–132; BP diastolic 61–76; PULSE 71–83; TEMP 36.2–36.7; O2SAT 94–96
[2024-11-19 06:25] LABS: Basophils Percent Auto 0.2 % (0.2-2.0); Eosinophils Absolute Auto 0.1 10^3/uL (0.0-0.7); Eosinophils Percent Auto 1.7 % (0.9-7.0); Hematocrit 33.6 % (42.0-54.0); Hemoglobin 11.4 g/dL (14.0-18.0); Immature Granulocytes Abs Auto 0.06 10^3/uL (0.00-0.03); Lymphocytes Absolute Auto 0.7 10^3/uL (1.2-3.8); Lymphocytes Percent Auto 12.7 % (20.5-60.0); Mean Corpuscular HGB Conc 33.9 g/dL (29.9-35.2); Mean Corpuscular Hemoglobin 34.7 pg (25.9-34.0); Mean Corpuscular Volume 102.1 fL (80.0-94.0); Mean Platelet Volume 9.9 fL (9.5-13.5); Monocytes Absolute Auto 0.7 10^3/uL (0.3-0.8); Monocytes Percent Auto 12.5 % (1.7-12.0); Neutrophils Absolute Auto 4.1 10^3/uL (1.4-6.5); Neutrophils Percent Auto 71.9 % (43.0-75.0); Platelet Count 137 10^3/uL (150-450); Red Blood Count 3.29 10^6/uL (4.70-6.10); Red Cell Distribution Width 17.6 % (11.0-15.0); White Blood Count 5.7 10^3/uL (4.0-11.0)
[2024-11-19 06:49] LABS: Ammonia 58 umol/L (11-32)
[2024-11-19 06:52] LABS: Alanine Aminotransferase 107 U/L (16-63); Albumin Globulin Ratio 0.4; Albumin Level 1.5 g/dL (3.4-5.0); Alkaline Phosphatase 248 U/L (46-116); Anion Gap 7.6; Aspartate Amino Transferase 105 U/L (15-37); BUN Creatinine Ratio 24.5; Bilirubin Total 2.6 mg/dL (0.2-1.0); Calcium 8.3 mg/dL (8.5-10.1); Chloride 105 mmol/L (98-107); Creatine Kinase 31 U/L (39-308); Creatine Kinase MB 0.98 ng/mL (<=3.60); Estimated GFR (African America >60 (>=60 mL/min/1.73m^2); Estimated GFR (Non-African Ame >60 (>=60 mL/min/1.73m^2); Globulin 3.4 g/dL; Glucose 60 mg/dL (74-106); Magnesium 1.9 mg/dL (1.8-2.4); Myoglobin 46 ng/mL (16-96); Potassium 4.6 mmol/L (3.5-5.1); Sodium 136 mmol/L (136-145); Total Protein 4.9 g/dL (6.4-8.2); Troponin I High Sensitivity 12.8 pg/mL (4.0-76.1)
[2024-11-19] MEDS: 0.9 % SODIUM CHLORIDE 1,000 ML 100 ML IV ×2 (07:02→17:26)
[2024-11-19 07:40] LABS: Glucometer 59 mg/dL (74-106)
[2024-11-19 07:58] LABS: Glucometer 79 mg/dL (74-106)
--- NOTE | 2024-11-19 08:26 | P.PN_ITS ---
Progress Note: Subjective Subjective Interval history: Still active, difficulty ambulating secondary to weakness in his legs this not described radiculopathy type pain Exam Constitutional Vital Signs, click to edit/add: Last Vital Signs Temp 97.8 F 11/19/24 08:15 Pulse 72 11/19/24 08:15 Resp 18 11/19/24 08:15 BP 127/66 11/19/24 08:15 Pulse Ox 95 11/19/24 08:15 O2 Del Method Room Air 11/19/24 08:15 Documenting provider has reviewed patient's vital signs: yes Common normals: no apparent distress Respiratory Common normals: normal respiratory effort and no retractions Cardio Common normals: regular rate and regular rhythm GI Common normals: Normal to inspection, nondistended, normoactive bowel sounds present and soft to palpation Back & Pelvis Common normals: thoracic and lumbar spine normal to inspection; thoracic and/or lumbar spine tender (Moderate low back tenderness and pain with ROM) Extremity Common normals: abnormal to inspection (1+ edema chronic) Neuro Other: Decreased active lower extremity secondary to pain, no improvement Progress Note: Objective Labs Labs: Short CBC 11/19/24 Range/Units 06:09 WBC 5.7 (4.0-11.0) 10^3/uL Hgb 11.4 L (14.0-18.0) g/dL Hct 33.6 L (42.0-54.0) % Plt Count 137 L (150-450) 10^3/uL BMP 11/19/24 06:09 Sodium 136 Potassium 4.6 Chloride 105 Carbon Dioxide 28.0 BUN 25.0 H Creatinine 1.02 Glucose 60 L Calcium 8.3 L Cardiac Enzymes 11/18/24 11/19/24 Range/Units 10:42 06:09 Total Creatine Kinase 49 31 L (39-308) U/L CK-MB (CK-2) 0.98 (<=3.60) ng/mL Liver Function 11/19/24 Range/Units 06:09 Total Bilirubin 2.6 H (0.2-1.0) mg/dL AST 105 H (15-37) U/L ALT 107 H (16-63) U/L Alkaline Phosphatase 248 H (46-116) U/L Albumin 1.5 L (3.4-5.0) g/dL Urine 11/18/24 Range/Units 12:30 Urine Color Yellow (YELLOW) Urine Clarity Clear (CLEAR) Urine pH 6.0 (5.0-9.0) Ur Specific [place] 1.010 (1.005-1.025) Urine Protein Negative (NEG/TRACE) mg/dL Urine Glucose (UA) Negative (NEGATIVE) mg/dL Progress Note: A&P Assessment and Plan (1) Generalized weakness: (2) Severe protein-calorie malnutrition: (3) Hyperbilirubinemia: (4) Acute pancreatitis: (5) Cirrhosis: (6) Acute kidney injury superimposed on stage 1 chronic kidney disease: Plan Admission findings: Sinus tachycardia, mild elevation in creatinine, hyperbilirubinemia with elevated liver function test and amylase normal but lipase elevated. CT scan does not show pancreatitis, not tender in that area and is likely chronic for him secondary to his cirrhosis Mechanical fall-physical therapy to work with patient, pain in lower back,-CT scan consistent with L2-3 and L3-4 severe spinal stenosis-continue with current medications, patient may need surgery Hypertension-continue with home medications Anxiety and depression continue with home medications Liver cirrhosis with hyperammonemia-monitor labs daily-liver function test slightly improved today but now ammonia is elevated will add lactulose Likely chronic elevation of lipase-repeat in a.m.-improved today Admission findings: Patient with significant lower extremity weakness status post fall-CT scan pending, medically necessary treatment will span 2 midnights. IV pain medications will be required, inpatient status, without significant improvement patient likely in need of rehab and is an excellent rehabilitation candidate ?
--- NOTE | 2024-11-19 08:48 | CM.NOTE ---
Rounds made with Dr. Whelan, no discharge today. Discussed plan of care with pt, lab results and CT scan. Continue PT and OT for strengthening.
--- NOTE | 2024-11-19 09:29 | SWNOTE1 ---
SW faxed OT note, phsyician note, labs, vitals, wound care nursing notes, dietary recommendations, and med list for Renate and Herber campuzano Blossom for precert.
[2024-11-19] MEDS: AMLODIPINE BESYLATE 5 MG TABLET 2.5 MG PO (09:41)
[2024-11-19] MEDS: CITALOPRAM HYDROBROMIDE 20 MG TABLET PO (09:43)
[2024-11-19] MEDS: SPIRONOLACTONE 25 MG TABLET PO (09:43)
[2024-11-19] MEDS: EZETIMIBE 10 MG TABLET PO (09:43)
[2024-11-19] MEDS: OLANZapine 5 MG TABLET 2.5 MG PO (09:43)
[2024-11-19] MEDS: CARVEDILOL 6.25 MG TABLET PO (09:43)
[2024-11-19] MEDS: LEVOFLOXACIN 750 MG TABLET PO (09:43)
[2024-11-19] MEDS: ASPIRIN 81 MG TABLET.DR PO (09:44)
[2024-11-19] MEDS: POTASSIUM CHLORIDE 10 MEQ ER TABLET 20 MEQ PO (09:44)
[2024-11-19] MEDS: ORPHENADRINE 60 MG/2 ML VIAL IV ×2 (09:44→21:15)
[2024-11-19] MEDS: GLIMEPIRIDE 2 MG TABLET PO (09:44)
[2024-11-19] MEDS: FUROSEMIDE 20 MG TABLET PO (09:44)
[2024-11-19] MEDS: FERROUS SULFATE 325 MG TABLET PO ×2 (09:44→21:15)
[2024-11-19] MEDS: PNEUMOC 20-VAL CONJ-DIP CRM/PF 0.5 ML SYRINGE IM (09:45)
[2024-11-19] MEDS: METHYLPREDNISOLONE SOD SUCC PF 125 MG/2 ML VIAL IVP ×3 (09:59→21:15)
[2024-11-19 11:29] LABS: Glucometer 168 mg/dL (74-106)
[2024-11-19] MEDS: INSULIN ASPART 300 UNIT/3 ML PEN SUBQ ×3 (11:34→21:15)
--- NOTE | 2024-11-19 14:14 | W.PM.WC_ITS ---
Wound Consult Note Assessment and Plan (1) Generalized weakness: (2) Severe protein-calorie malnutrition: (3) Hyperbilirubinemia: (4) Acute pancreatitis: (5) Cirrhosis: (6) Acute kidney injury superimposed on stage 1 chronic kidney disease: Plan Consult: Buttocks ulcer, BUE skin tears Patient seen today for pressure injury to right buttocks, shear injury to left buttocks, and multiple skin tears to bilateral upper extremities. Patient reports he fell in his bathroom at home yesterday. He also has a dark purple bruise to his right anterior chest. Patient with bilateral lower leg adrián hose in place. Socks slipped down and were cutting into patient's leg. Readjusted stockings to be up to his knee. Skin is intact. See wound assessment below. Photos in chart. Orders updated. Please call [phone] with any questions or concerns. Herber Beach RN, CWON Wound Assessment Wound Right Buttock: Wound Type: Pressure Injury Is This a Chronic Wound: Yes Wound Staging: Stage II (marbled pink/yellow matrix) Length: 1.9 Width: 1 Depth: 0.1 Wound Bed Appearance: [place] and Yellow (wound matrix) Wound Margins Description: Well Defined Surrounding Tissue Appearance: [place] and Dark Red (non blanching, moisture associated skin damage) Surrounding Tissue Temperature: warm (WNL) Drainage Description: Serous Drainage Amount: Scant Drainage Odor: No Odor Primary Dressing: medihoney/triad to periwound Secondary Dressing: mepilex border dressing Dressing Change Date: 11/19/24 Dressing Change Patient Tolerance: Tolerated Well Left Buttock: Wound Type: shearing injury Length: 3.5 Width: 0.7 Depth: 0.1 Wound Bed Appearance: [place] (there are 3 linear open areas noted. Entire area measured as one. Appears to be shearing injury. ) Wound Margins Description: Indistinct Surrounding Tissue Appearance: Dark Red (nonblanching, moisture associated skin damage) Surrounding Tissue Temperature: warm (WNL) Drainage Description: Serous Drainage Amount: None Primary Dressing: triad Secondary Dressing: mepliex border foam Dressing Change Date: 11/19/24 Dressing Change Patient Tolerance: Tolerated Well Right Arm: Wound Type: Skin Tear (2 open areas noted on right arm) Is This a Chronic Wound: No Wound Bed Appearance: [place] and Yellow Wound Margins Description: Indistinct (irregular edges due to tearing of skin) Surrounding Tissue Appearance: Purple (ecchymotic) Surrounding Tissue Temperature: warm (WNL) Drainage Description: Serous Drainage Amount: Small Drainage Odor: No Odor Dressing Status: Dry & Intact (mepilex border foam dressing applied 11.18.24) Left Arm: Wound Type: Skin Tear (Patient has 2 areas that are open to his left arm) Is This a Chronic Wound: No Wound Bed Appearance: [place] and Yellow Wound Margins Description: Indistinct (irregular edges due to tearing of skin) Surrounding Tissue Appearance: Purple (ecchymotic) Surrounding Tissue Temperature: warm (WNL) Drainage Description: Serous Drainage Amount: Small Drainage Odor: No Odor Dressing Status: Dry & Intact (Mepilex applied 11.18.24)
--- NOTE | 2024-11-19 14:42 | SWNOTE1 ---
WAGNER faxed wound care orders and wound care note to Renate and Herber at [facility].
--- NOTE | 2024-11-19 14:42 | PT.DAILY ---
Physical Therapy Daily Note PT Daily Note/Assess Start: 11/19/24 14:25 Freq: Status: Active Protocol: Document 11/19/24 14:26 [id number] (Rec: 11/19/24 14:42 [id number] No Response) Physical Therapy Daily Note/Assessment Time In/Time Out Time In 02:06 Time Out 02:20 Pain In Pain Level 2 Pain Out Pain Level 2 Subjective Subjective Patient states he just got into bed from the chair. Agreeable to working with PT. Reports pain is located to his buttock region and nursing is aware. Therapeutic Exercise Time Therapeutic Exercise 3 Minutes (minutes) Therapeutic Exercise 0 Units Therapeutic Exercise Treatment Therapeutic Exercise Patient performed CHANTEL LE ther ex to increase strength Treatment with ADL's and walking. Ankle pumps, quad sets and SLR , L SLR required MIN a +1. Therapeutic Activity Time Therapeutic Activity 11 Minutes (minutes) Therapeutic Activity 1 Units Therapeutic Activity Treatment Bed Mobility Ability Minimum Assist,Moderate Assist Chair Transfer Contact Guard Assist,Minimum Assist Ability Therapeutic Activity Bed mobility: supine to R sit with use of R hand rail Comments is MOD A +1 for upper body management and MIN A +1 for L LE management. Sitting balance good without UE support. Transfer: sit to stand to 2WW is CGA to MIN A +1. Patient ambulated ~54 feet with 2WW with CGA +1, followed by with a W/C for safety and IV pole management. Patient required one seated therapeutic rest break. STS from 2WW to W/C and W/C to 2WW is MIN A +1. Patient ambulated ~54 feet with 2WW w/ W/C following to EOB. Patient is CGA +1 for stand to sit @ EOB. Bed mobility transfer is MIN A to MOD A +1 for CHANTEL LE management. MOD A for upper body to position in bed. Call vega within reach and all post treatment needs met. Total Physical Therapy Time Total Therapy 14 Minutes Total Physical 1 Therapy Units Summary Daily Note Summary Patient demonstrates improved functional mobility for bed mobility and sit to stands. Improved ambulation distance with slow and steady pace with WBOS. Fatigues with ambulation distance. Decreased L foot toe off/ heel strike noted and L LE weakness. Patient would benefit from SNF to address functional weakness for return to PLOF.
[2024-11-19] MEDS: LACTULOSE 10 GM/15 ML UD CUP PO ×2 (15:00→21:15)
--- NOTE | 2024-11-19 15:05 | SWNOTE1 ---
WAGNER received a call from Renate at [facility] and she received message from pt's insurance and they are requesting progress note that states pt is medically stable for discharge. WAGNER sent this to Dr. Muñoz so he is aware. WAGNER faxed updated PT note to Renate and Herber at [facility].
[2024-11-19 16:33] LABS: Glucometer 301 mg/dL (74-106)
[2024-11-19 19:47] LABS: Glucometer 247 mg/dL (74-106)
[2024-11-19] MEDS: QUETIAPINE FUMARATE 25 MG TABLET PO (21:15)
[2024-11-20] VITALS (10 sets, daily range): BP systolic 99–122; BP diastolic 58–73; PULSE 77–94; TEMP 36.6–36.8; O2SAT 92–94
[2024-11-20] MEDS: METHYLPREDNISOLONE SOD SUCC PF 125 MG/2 ML VIAL IVP ×2 (03:12→08:26)
[2024-11-20] MEDS: 0.9 % SODIUM CHLORIDE 1,000 ML 100 ML IV (03:12)
[2024-11-20] MEDS: LACTULOSE 10 GM/15 ML UD CUP PO (05:54)
[2024-11-20 06:23] LABS: Hematocrit 33.1 % (42.0-54.0); Hemoglobin 11.3 g/dL (14.0-18.0); Immature Granulocytes Abs Auto 0.01 10^3/uL (0.00-0.03); Immature Granulocytes Pct Auto 0.2 % (0.0-0.5); Lymphocytes Absolute Auto 0.3 10^3/uL (1.2-3.8); Lymphocytes Percent Auto 6.2 % (20.5-60.0); Mean Corpuscular HGB Conc 34.1 g/dL (29.9-35.2); Mean Corpuscular Hemoglobin 34.2 pg (25.9-34.0); Mean Corpuscular Volume 100.3 fL (80.0-94.0); Mean Platelet Volume 9.7 fL (9.5-13.5); Monocytes Absolute Auto 0.1 10^3/uL (0.3-0.8); Monocytes Percent Auto 2.1 % (1.7-12.0); Neutrophils Percent Auto 91.5 % (43.0-75.0); Platelet Count 101 10^3/uL (150-450); Red Cell Distribution Width 17.2 % (11.0-15.0); White Blood Count 4.3 10^3/uL (4.0-11.0)
[2024-11-20 06:49] LABS: Ammonia 43 umol/L (11-32)
--- NOTE | 2024-11-20 07:00 | P.DS_ITS ---
DS: Providers Provider Date of admission: 11/18/24 09:23 Primary care physician: Desmond Muñoz MD Consults: 11/18/24 Consult to Dietitian Routine Reason for consultation: Weight loss 11/18/24 09:35 Consult to Pharmacy Routine Consulting Provider: Reason for consultation: Please [place] me when Med Rec is Updated Has provider been notified: No Consult to Support Team Assoc Routine Reason for consult:: Prison Other reason:: place at [place]? Consult to Wound Care Routine Consulting Provider: Herber Beach Reason for consultation: buttocks Has provider been notified: Yes Occupational Therapy Eval and Treat Routine Reason for consultation: Only if needed for Rehab Has provider been notified: No Physical Therapy Eval and Treat Routine Reason for consultation: Eval and Treat Has provider been notified: No DS: Diagnosis Discharge Diagnosis (1) Generalized weakness: (2) Severe protein-calorie malnutrition: (3) Hyperbilirubinemia: (4) Acute pancreatitis: (5) Cirrhosis: (6) Acute kidney injury superimposed on stage 1 chronic kidney disease: Plan Admission findings: Sinus tachycardia, mild elevation in creatinine, hyperbilirubinemia with elevated liver function test and amylase normal but lipase elevated. CT scan does not show pancreatitis, not tender in that area and is likely chronic for him secondary to his cirrhosis Mechanical fall-physical therapy to work with patient, pain in lower back,-CT scan consistent with L2-3 and L3-4 severe spinal stenosis-continue with current medications, patient may need surgery Hypertension-continue with home medications Anxiety and depression continue with home medications Liver cirrhosis with hyperammonemia-monitor labs daily-liver function test slightly improved today but now ammonia is elevated will add lactulose Likely chronic elevation of lipase-repeat in a.m.-improved today Admission findings: Patient with significant lower extremity weakness status post fall-CT scan pending, medically necessary treatment will span 2 midnights. IV pain medications will be required, inpatient status, without significant improvement patient likely in need of rehab and is an excellent rehabilitation candidate DS: Summary Hospital Course Hospital Course: Patient presented to the emergency room with unable to ambulate secondary to weakness in his lower extremities and pain, found to have acute UTI which was likely contributing to his overall generalized weakness, patient also with significant cirrhotic liver disease and had significantly elevated ammonia level, treated for that, that is somewhat better today, still unsteady on his feet with significant weakness, medically though he is stable for discharge to rehab, patient excellent rehabilitation candidate I will follow patient at rehab Time Spent with Patient Time attestation: Total time spent providing and/or coordinating discharge services: Exam Constitutional Vital Signs, click to edit/add: Last Vital Signs Temp 98.2 F 11/20/24 04:00 Pulse 81 11/20/24 06:00 Resp 16 11/20/24 04:00 BP 122/58 11/20/24 04:00 Pulse Ox 92 L 11/20/24 04:00 O2 Del Method Room Air 11/20/24 04:00 Documenting provider has reviewed patient's vital signs: yes Common normals: no apparent distress Respiratory Common normals: normal respiratory effort, no retractions, no use of accessory muscles and clear to auscultation bilaterally Cardio Common normals: regular rate, regular rhythm, S1 normal heart sound, S2 normal heart sound and no murmurs GI Common normals: soft to palpation; negative for Normal to inspection, nondistended, normoactive bowel sounds present (Morbid obesity) Back & Pelvis Common normals: thoracic and lumbar spine normal to inspection; thoracic and/or lumbar spine tender (Moderate low back tenderness and pain with ROM) Extremity Common normals: abnormal to inspection (1-2+ edema chronic) Neuro Other: Decreased active lower extremity secondary to pain, no improvement DS: Data Data Completed and Pending Labs on day of discharge: Labs from last 24 hours 11/20/24 11/19/24 11/19/24 06:14 19:45 16:31 WBC 4.3 RBC 3.30 L Hgb 11.3 L Hct 33.1 L MCV 100.3 H MCH 34.2 H MCHC 34.1 RDW 17.2 H Plt Count 101 L MPV 9.7 Neut % (Auto) 91.5 H Lymph % (Auto) 6.2 L [place] % (Auto) 2.1 Eos % (Auto) 0.0 L Baso % (Auto) 0.0 L Neut # (Auto) 4.0 Lymph # (Auto) 0.3 L [place] # (Auto) 0.1 L Eos # (Auto) 0.0 Baso # (Auto) 0.0 Abs Immat Gran (auto) 0.01 Imm/Tot Granulo (auto) 0.2 Sodium Potassium Chloride Carbon Dioxide Anion Gap BUN Creatinine Est GFR ( Amer) Est GFR (Non-Af Amer) BUN/Creatinine Ratio Glucose Calcium Magnesium Total Bilirubin AST ALT Alkaline Phosphatase Ammonia 43 H* Total Creatine Kinase CK-MB (CK-2) Myoglobin Troponin I High Sens Total Protein Albumin Globulin Albumin/Globulin Ratio Lipase POC Glucose 247 H 301 H 11/19/24 11/19/24 11/19/24 11:26 07:57 07:37 WBC RBC Hgb Hct MCV MCH MCHC RDW Plt Count MPV Neut % (Auto) Lymph % (Auto) [place] % (Auto) Eos % (Auto) Baso % (Auto) Neut # (Auto) Lymph # (Auto) [place] # (Auto) Eos # (Auto) Baso # (Auto) Abs Immat Gran (auto) Imm/Tot Granulo (auto) Sodium Potassium Chloride Carbon Dioxide Anion Gap BUN Creatinine Est GFR ( Amer) Est GFR (Non-Af Amer) BUN/Creatinine Ratio Glucose Calcium Magnesium Total Bilirubin AST ALT Alkaline Phosphatase Ammonia Total Creatine Kinase CK-MB (CK-2) Myoglobin Troponin I High Sens Total Protein Albumin Globulin Albumin/Globulin Ratio Lipase POC Glucose 168 H 79 59 L 11/19/24 06:09 WBC RBC Hgb Hct MCV MCH MCHC RDW Plt Count MPV Neut % (Auto) Lymph % (Auto) [place] % (Auto) Eos % (Auto) Baso % (Auto) Neut # (Auto) Lymph # (Auto) [place] # (Auto) Eos # (Auto) Baso # (Auto) Abs Immat Gran (auto) Imm/Tot Granulo (auto) Sodium 136 Potassium 4.6 Chloride 105 Carbon Dioxide 28.0 Anion Gap 7.6 BUN 25.0 H Creatinine 1.02 Est GFR ( Amer) >60 Est GFR (Non-Af Amer) >60 BUN/Creatinine Ratio 24.5 Glucose 60 L Calcium 8.3 L Magnesium 1.9 Total Bilirubin 2.6 H AST 105 H ALT 107 H Alkaline Phosphatase 248 H Ammonia Total Creatine Kinase 31 L CK-MB (CK-2) 0.98 Myoglobin 46 Troponin I High Sens 12.8 Total Protein 4.9 L Albumin 1.5 L Globulin 3.4 Albumin/Globulin Ratio 0.4 Lipase 93.0 H POC Glucose Preliminary micro results at discharge 11/18/24 12:30 Urine Culture - Preliminary Urine,Clean Catch Pending - Specimen sent to [facility] Discharge Plan Discharge Disposition: Xfer SNF Discharge Medications: New quetiapine 25 mg Tablet 25 mg PO HS Qty: 30 11RF citalopram 20 mg Tablet 20 mg PO DAILY Qty: 30 11RF levofloxacin 750 mg Tablet 750 mg PO QD Qty: 8 0RF lactulose 10 gram/15 mL Solution 10 g PO TID Qty: 3785 11RF Continued amlodipine 2.5 mg tablet 2.5 mg PO DAILY glimepiride 4 mg tablet 4 mg PO DAILY olanzapine 2.5 mg tablet 2.5 mg PO DAILY spironolactone 25 mg tablet 25 mg PO .QD aspirin 81 mg capsule 81 mg PO DAILY ferrous sulfate [iron] 325 mg (65 mg iron) tablet 325 mg PO BID cyanocobalamin (vitamin B-12) [Vitamin B-12] 2,000 mcg tablet extended release 2,000 mcg PO DAILY carvedilol 6.25 mg tablet 6.25 mg PO DAILY furosemide 20 mg tablet 20 mg PO DAILY potassium chloride [Klor-Con M20] 20 mEq tablet,ER particles/crystals 20 meq PO DAILY ezetimibe 10 mg tablet 10 mg PO DAILY Discontinued citalopram 10 mg tablet 10 mg PO DAILY Print Language: Canadian Forms: Portal Instructions
[2024-11-20 07:01] LABS: Alanine Aminotransferase 112 U/L (16-63); Albumin Globulin Ratio 0.4; Albumin Level 1.5 g/dL (3.4-5.0); Alkaline Phosphatase 240 U/L (46-116); Anion Gap 11.5; Aspartate Amino Transferase 91 U/L (15-37); BUN Creatinine Ratio 21.8; Bilirubin Total 2.3 mg/dL (0.2-1.0); Carbon Dioxide 23.3 mmol/L (21.0-32.0); Chloride 105 mmol/L (98-107); Creatine Kinase 28 U/L (39-308); Creatine Kinase MB 0.93 ng/mL (<=3.60); Estimated GFR (African America >60 (>=60 mL/min/1.73m^2); Estimated GFR (Non-African Ame >60 (>=60 mL/min/1.73m^2); Globulin 3.4 g/dL; Glucose 173 mg/dL (74-106); Myoglobin 43 ng/mL (16-96); Potassium 4.8 mmol/L (3.5-5.1); Sodium 135 mmol/L (136-145); Total Protein 4.9 g/dL (6.4-8.2); Troponin I High Sensitivity 10.6 pg/mL (4.0-76.1)
[2024-11-20 07:25] LABS: Glucometer 159 mg/dL (74-106)
[2024-11-20] MEDS: INSULIN ASPART 300 UNIT/3 ML PEN SUBQ (08:18)
[2024-11-20] MEDS: AMLODIPINE BESYLATE 5 MG TABLET 2.5 MG PO (08:23)
[2024-11-20] MEDS: POTASSIUM CHLORIDE 10 MEQ ER TABLET 20 MEQ PO (08:24)
[2024-11-20] MEDS: CARVEDILOL 6.25 MG TABLET PO (08:25)
[2024-11-20] MEDS: CITALOPRAM HYDROBROMIDE 20 MG TABLET PO (08:25)
[2024-11-20] MEDS: LEVOFLOXACIN 750 MG TABLET PO (08:25)
[2024-11-20] MEDS: EZETIMIBE 10 MG TABLET PO (08:25)
[2024-11-20] MEDS: FERROUS SULFATE 325 MG TABLET PO (08:25)
[2024-11-20] MEDS: ASPIRIN 81 MG TABLET.DR PO (08:25)
[2024-11-20] MEDS: GLIMEPIRIDE 2 MG TABLET PO (08:25)
[2024-11-20] MEDS: SPIRONOLACTONE 25 MG TABLET PO (08:26)
[2024-11-20] MEDS: FUROSEMIDE 20 MG TABLET PO (08:26)
--- NOTE | 2024-11-20 08:46 | CM.NOTE ---
Rounds made with Toni Marr. Dr Muñoz discussed discharge plan with [place]. Plan is for discharge to [facility] today.
--- NOTE | 2024-11-20 10:41 | PT.DAILY ---
Physical Therapy Daily Note PT Daily Note/Assess Start: 11/19/24 14:25 Freq: Status: Active Protocol: Document 11/20/24 10:10 [id number] (Rec: 11/20/24 10:41 [id number]) Physical Therapy Daily Note/Assessment Time In/Time Out Time In 10:10 Time Out 10:25 Subjective Subjective Patient reports feeling good today, no pain in the R rib area today just some tenderness with certain movements. Therapeutic Exercise Time Therapeutic Exercise 6 Minutes (minutes) Therapeutic Exercise 0 Units Therapeutic Exercise Treatment Therapeutic Exercise Patient completed seated exercises. Pt experiences mild Treatment SOB after exercises with short rest break needed. Marches x 10 LAQ x 10 HR/ TR x 10 Hip abd x 10 Add squeezes x 10 Therapeutic Activity Time Therapeutic Activity 9 Minutes (minutes) Therapeutic Activity 1 Units Therapeutic Activity Treatment Chair Transfer Modified Independent,Contact Guard Assist Ability Therapeutic Activity Patient completes sit to stand from chair to RW CGA and Comments correct hand placement/ safety techniques demonstrated . Patient ambulates 55 feet x 2 with RW and SBA and wheelchair follow for safety. Patient requires seated rest break in between trials with mild SOB noted, patient able to recover quickly. Sit to stand transfer from wheelchair to RW requiring MIN A x 2 before second trial of ambulation. Patient demonstrates SOB post ambulation, educated to take deep breaths and patient able to recover quickly. Total Physical Therapy Time Total Therapy 15 Minutes Total Physical 1 Therapy Units Summary Daily Note Summary Patient completes seated exercises in chair x 10 reps, requiring rest break to recover from SOB after. Patient is able to ambulate 55 feet x 2 trials with RW SBA and wheelchair follow for safety. Patient demonstrates mild fatigue and requires a seated rest break in between ambulation trials. Patient able to take deep breaths and recover quickly after short rest break. Sit to stand transfers completed with CGA required for higher surfaces and MIN A x 2 required from lower surfaces. Patient demonstrates SOB throughout treatment but with education and proper breathing techniques is able to recover quickly. Patient in chair with call light in reach and all needs met post treatment. Continue to recommend SNF at [facility] to continue to strengthen B LE and build endurance to return to PLOF.
[2024-11-20] MEDS: OLANZapine 5 MG TABLET 2.5 MG PO (10:51)
--- NOTE | 2024-11-20 11:16 | SWNOTE1 ---
WAGNER received a call last night from [facility] that pt is approved. WAGNER let doctor know. Pt is medically stable today for discharge. WAGNER called and set up trips transportation for 11:15. WAGNER faxed dc med rec and dc summary to [facility]. WAGNER notified nurse and [facility] of dc time. Pt is going to [facility] skilled. WAGNER took packet to the floor. WAGNER completed HENS online.
--- NOTE | 2024-11-20 11:20 | SWNOTE1 ---
SW called and left message with transport time as well.
== END 2024-11-20 11:18 | DRG 689 ==
LOC: ER 08:34 → MS 09:04
PROVIDERS: Internal Medicine; Admitting Provider Family Medicine; Emergency Provider Emergency Medicine; PCP Family Medicine; Visit Provider Family Medicine
DX: N39.0 Urinary tract infection, site not specified (principal); E43 Unspecified severe protein-calorie malnutrition; K85.90 Acute pancreatitis without necrosis or infection, unspecified; N17.9 Acute kidney failure, unspecified; E72.20 Disorder of urea cycle metabolism, unspecified; Z68.41 Body mass index [BMI] 40.0-44.9, adult; R53.1 Weakness; E80.6 Other disorders of bilirubin metabolism; N18.1 Chronic kidney disease, stage 1; K74.60 Unspecified cirrhosis of liver; S09.90XA Unspecified injury of head, initial encounter; W19.XXXA Unspecified fall, initial encounter; S20.211A Contusion of right front wall of thorax, initial encounter; S51.812A Laceration without foreign body of left forearm, initial encounter; F41.9 Anxiety disorder, unspecified; F32.A Depression, unspecified; Z87.891 Personal history of nicotine dependence; I71.40 Abdominal aortic aneurysm, without rupture, unspecified; M54.50 Low back pain, unspecified; M48.061 Spinal stenosis, lumbar region without neurogenic claudication; L89.312 Pressure ulcer of right buttock, stage 2; S41.112A Laceration without foreign body of left upper arm, initial encounter; S39.82XA Other specified injuries of lower back, initial encounter; R26.81 Unsteadiness on feet; I12.9 Hypertensive chronic kidney disease with stage 1 through stage 4 chronic kidney disease, or unspecified chronic kidney disease; E66.01 Morbid (severe) obesity due to excess calories; Z79.82 Long term (current) use of aspirin; Z79.899 Other long term (current) drug therapy; B96.89 Other specified bacterial agents as the cause of diseases classified elsewhere; Z23 Encounter for immunization
CPT/HCPCS: 36415; 70450; 71260; 72125; 72131; 74177; 80048; 80053; 80076; 81001; 82140; 82150; 82550; 82553; 82948; 83690; 83735; 83874; 84484; 85007; 85025; 85027; 87086; 87088; 87186; 90677; 94667; 94668; 94761; 97161; 97165; 97530; 97535; 99285; J2360; J2919; Q9967

== ENCOUNTER 2024-12-07 11:06 | Outpatient (OUT) | payer MEDICARE, SELFPAY ==
--- OUTSIDE RECORDS SUMMARY | 2024-12-07 11:29 | XMS_ITS | CCD ---
Author Organization [facility] CliniSywv Care Team Providers Care Electronic Component Processor Name Role Phone DR PEGGY MUÑOZ Admitting Unavailable RASHAAD, DR WOODS Attending Unavailable RASHAAD, DR WOODS Primary Care Unavailable RINKUY, DR WOODS Admitting Unavailable HOY, DR WOODS Attending Unavailable RINKUY, DR WOODS Primary Care Unavailable HOY, DR WOODS Admitting Unavailable HOY, DR WOODS Attending Unavailable RINKUY, DR WOODS Primary Care Unavailable RASHAAD, DR WOODS Consulting Unavailable Truman FUNES Attending Unavailable Nat MURRAY Attending Unavailable Nat MURRAY Attending Unavailable Truman FUNES Attending Unavailable Nat MURRAY Attending Unavailable Tuan Lira Attending Unavailable Nat MURRAY Attending Unavailable Nat MURRAY Admitting Unavailable TAJ OTERO Admitting Unavailable TAJ OTERO Attending Unavailable TAJ OTERO Referring Unavailable TAJ OTERO Attending Unavailable TAJ OTERO Referring Unavailable Peggy Muñoz MD Primary Care Provider [phone] Geoffrey Ibrahim DO Attending Provider Peggy Muñoz MD Primary Care Provider [phone] Geoffrey Ibrahim DO Attending Provider Leti Ren PA-C Attending Provider NON STAFF Primary Care Provider UnavailDerrek Morales MD Attending Provider [phone] Peggy Muñoz MD Attending Provider Asaad, Imad Admitting Unavailable Asaad, Imad Attending Unavailable Geoffrey Ibrahim Attending Unavailable Peggy Muñoz Primary Care Unavailable Geoffrey Ibrahim Admitting Unavailable Geoffrey Ibrahim Attending Unavailable Alexandria, Geoffrey A Admitting Unavailable NON STAFF Primary Care Unavailable Asaad, Imad Admitting Unavailable Asaad, Imad Attending Unavailable Peggy Muñoz Primary Care Unavailable Geoffrey Ibrahim Attending Unavailable Peggy Muñoz Primary Care Unavailable Geoffrey Ibrahim Admitting Unavailable Geoffrey Ibrahim Attending Unavailable Peggy Muñoz Primary Care Unavailable Geoffrey Ibrahim Admitting Unavailable Leti Ren Admitting Unavailable Leti Ren Attending Unavailable Peggy Muñoz Admitting Unavailable Peggy Muñoz Attending Unavailable Medications Current Medications Medication Drug Class(es) Dates Sig (Normalized) Sig (Original) acetaminophen 500 mg oral tablet (10 sources) Start: 09-22-2024 take 2 tablets by mouth every eight hours Acetaminophen (Tylenol Extra Strength) 500 mg tablet Active 1000 MG PO Every 8 hours 84 14 September 22, 2024 1:00am amLODIPine 2.5 mg oral tablet (1 source) Dihydropyridine Calcium Channel Elana Start: 11-25-2024 take 1 tablet by mouth once daily Amlodipine 2.5 mg tablet Active 2.5 MG PO Daily November 25, 2024 12:00am aspirin 81 mg oral tablet (11 sources) Platelet Aggregation Inhibitor, Nonsteroidal Anti-inflammatory Drug Start: 11-25-2024 take 1 capsule by mouth once daily Aspirin 81 mg capsule Active 81 MG PO Daily November 25, 2024 12:00am Start: 09-22-2024 End: 11-05-2024 Aspirin (Mihaela Low Dose Aspi rin) 81 mg tablet,delayed release (DR/EC) Discontinued 81 MG PO Daily September 22, 2024 1:00am November 05, 2024 10:12am carvedilol 6.25 mg oral tablet (19 sources) alpha-Adrenergic Elana, beta-Adrenergic Elana Start: 11-18-2024 take 1 tablet by mouth twice daily Carvedilol (Coreg) 6.25 mg tablet Active 6.25 MG PO Twice daily November 18, 2024 8:32am Start: 11-05-2024 End: 11-18-2024 take 1 tablet by mouth once daily Carvedilol (Coreg) 6.25 mg tablet Active 6.25 MG PO Daily November 18, 2024 8:32am Start: 06-09-2019 End: 11-05-2024 take 1 tablet by mouth twice daily Carvedilol (Coreg) 6.25 mg Tablet Discontinued 6.25 MG PO Twice daily June 09, 2019 1:00am November 05, 2024 10:15am citalopram 10 mg oral tablet (2 sources) Serotonin Reuptake Inhibitor Start: 11-18-2024 take 2 tablets by mouth once daily Citalopram (Celexa) 10 mg tablet Active 20 MG PO Daily November 18, 2024 12:00am Start: 11-18-2024 take 1 tablet by rojas th once daily Citalopram (Celexa) 10 mg tablet Active 10 MG PO Daily November 18, 2024 12:00am ezetimibe 10 mg oral tablet (1 source) Dietary Cholesterol Absorption Inhibitor Start: 11-25-2024 take 1 tablet by mouth once daily Ezetimibe 10 mg tablet Active 10 MG PO Daily November 25, 2024 12:00am ferrous sulfate 325 mg oral tablet (15 sources) Start: 11-18-2024 take 1 tablet by mouth twice daily Ferrous Sulfate 325 mg (65 mg iron) tablet Active 325 MG PO Twice daily November 18, 2024 12:00am Start: 07-24-2019 End: 11-05-2024 take 1 tablet by mouth twice daily Ferrous Sulfate 325 mg (65 mg iron) Tablet Discontinued 325 MG PO Twice daily July 24, 2019 1:00am November 05, 2024 10:13am Start: 07-24-2019 take 1 tablet by rojas three times daily Ferrous Sulfate 325 mg (65 mg iron) Tablet Active 325 MG PO Three times daily July 24, 2019 12:00am furosemide 20 mg oral tablet (19 sources) Loop Diuretic Start: 11-18-2024 Furosemide (La six) 20 mg tablet Active 20 MG PO Every 48 hours November 18, 2024 8:33am Start: 11-05-2024 End: 11-18-2024 take 1 tablet by mouth once daily Furosemide (Lasix) 20 mg tablet Discontinued 20 MG PO Daily November 05, 2024 10:41am November 18, 2024 8:37am Start: 06-09-2019 End: 11-05-2024 Furosemide (Lasix) 20 mg Tab let Discontinued 20 MG PO Q48H June 09, 2019 1:00am November 05, 2024 10:41am glimepiride 4 mg oral tablet (13 sources) Sulfonylurea Start: 11-18-2024 take 1 tablet by mouth once daily Glimepiride 4 mg tablet Active 4 MG PO Daily November 18, 2024 12:00am Start: 09-21-2024 End: 11-05-2024 take 1 tablet by mouth once daily Glimepiride 4 mg tablet Discontinued 4 MG PO Daily September 21, 2024 1:00am November 05, 2024 10:13am lactulose 667 mg/ml oral solution (1 source) Osmotic Laxative Start: 11-25-2024 Lactulose 10 gram/15 mL solution Active 10 GM PO Daily at 0730, 1530, 2330 November 25, 2024 12:00am levoFLOXacin 750 mg oral tablet (5 sources) Quinolone Antimicrobial Start: 11-25-2024 take 1 tablet by mouth once daily Levofloxacin 750 mg tablet Active 750 MG PO Daily November 25, 2024 12:00am Start: 11-05-2024 End: 11-18-2024 take 1 tablet by mouth once daily Levofloxacin 750 mg tablet Discontinued 750 MG PO Daily November 05, 2024 12:00am November 18, 2024 8:34am OLANZapine 2.5 mg oral tablet (2 sources) Atypical Antipsychotic Start: 11-18-2024 take 1 tablet by mouth once daily at bedtime Olanzapine 2.5 mg tablet Active 2.5 MG PO Daily at bedtime November 18, 2024 12:00am potassium chloride 20 meq powder for oral solution (13 sources) Start: 06-09-2019 take 20 mEq by mouth once daily Potassium Chloride (Klor-Con) 20 mEq Packet Active 20 MEQ PO Daily June 09, 2019 1:00am QUEtiapine 25 mg oral tablet (1 source) Atypical Antipsychotic Start: 11-25-2024 take 1 tablet by mouth once daily Quetiapine 25 mg tablet Active 25 MG PO Daily November 25, 2024 12:00am Sod Picosulf-Mag Ox-Citric Ac (4 sources) Start: 11-05-2024 take 1 dose by mouth once daily Sod Picosulf-Mag Ox-Citric Ac (Clenpiq) 10 mg-3.5 gram- 12 gram/175 mL solution Active 175 ML PO Daily 350 0 November 05, 2024 12:00am Take first dose at 3pm evening before colonoscopy; second dose at 9 pm night before colonoscopy spironolactone 25 mg oral tablet (19 sources) Aldosterone Antagonist Start: 11-18-2024 take 2 tablets by mouth twice daily Spironolactone 25 mg tablet Active 50 MG PO Twice daily November 18, 2024 8:34am Start: 11-05-2024 End: 11-18-2024 take 2 tablets by mouth four times daily Spironolactone 25 mg tablet Discontinued 50 MG PO Four times daily November 05, 2024 10:13am November 18, 2024 8:37am Start: 06-09-2019 End: 11-05-2024 take 2 tablets by mouth twice daily Spironolactone 25 mg Tablet Discontinued 50 MG PO Twice daily June 09, 2019 1:00am November 05, 2024 10:15am Start: 06-09-2019 take 1 tablet by rojas th four times daily Spironolactone 25 mg Tablet Active 25 MG PO Four times daily June 09, 2019 12:00am vitamin b12 1 mg oral capsule (14 sources) Vitamin B12 Start: 11-25-2024 take 1 capsule by mouth once daily Cyanocobalamin (Vitamin B-12) 1,000 mcg capsule Active 1000 MCG PO Daily November 25, 2024 12:00am Start: 07-24-2019 End: 11-05-2024 Cyanocobalamin (Vitamin B-12 ) (Vitamin B-12) 500 mcg Tablet Discontinued 5000 MCG PO Daily July 24, 2019 1:00am November 05, 2024 10:12am Start: 07-24-2019 Cyanocobalamin (Vitamin B-12) (Vitamin B-12) [...] MCG PO Daily July 24, 2019 12:00am Completed/Discontinued Medications Medication Drug Class(es) Dates Sig (Normalized) Sig (Original) amoxicillin 875 mg / clavulanate 125 mg oral tablet (4 sources) Penicillin-class Antibacterial Start: 11-05-2024 End: 11-25-2024 take 1 tablet by mouth twice daily Amoxicillin-Pot Clavulanate 875-125 mg tablet Discontinued 1 TAB PO Twice daily November 05, 2024 12:00am November 25, 2024 2:29pm ascorbic acid 250 mg oral tablet (13 sources) Vitamin C Start: 11-18-2024 End: 11-25-2024 take 1 tablet by mouth once daily Ascorbic Acid (Vitamin C) 250 mg tablet Discontinued 250 MG PO Daily November 18, 2024 12:00am November 25, 2024 2:26pm Start: 09-21-2024 End: 11-05-2024 take 1 tablet by mouth once daily Ascorbic Acid (Vitamin C) (Vitamin C) 250 mg tablet Discontinued 250 MG PO Daily September 21, 2024 1:00am November 05, 2024 10:12am canagliflozin 100 mg oral tablet (13 sources) Sodium-Glucose Cotransporter 2 Inhibitor Start: 06-09-2019 End: 09-21-2024 take 1 tablet by mouth once daily Canagliflozin (Invokana) 100 mg Tablet Discontinued 100 MG PO Daily June 09, 2019 1:00am September 21, 2024 9:37am cholecalciferol 0.05 mg oral capsule (13 sources) Vitamin D Start: 11-18-2024 End: 11-25-2024 take 1 capsule by mouth once daily Cholecalciferol (Vitamin D3) 50 mcg (2,000 unit) capsule Discontinued 50 MCG PO Daily November 18, 2024 12:00am November 25, 2024 2:23pm Start: 09-21-2024 End: 11-05-2024 take 1 capsule by mouth once daily Cholecalciferol (Vitamin D3) (D3-2000) 50 mcg (2,000 unit) capsule Discontinued 50 MCG PO Daily September 21, 2024 1:00am November 05, 2024 10:12am lisinopril 2.5 mg oral tablet (13 sources) Angiotensin Converting Enzyme Inhibitor Start: 06-09-2019 End: 09-21-2024 take 1 tablet by mouth once daily Lisinopril 2.5 mg Tablet Discontinued 2.5 MG PO Daily June 09, 2019 1:00am September 21, 2024 9:36am mecobalamin 5 mg disintegrating oral tablet (2 sources) Start: 11-18-2024 End: 11-25-2024 Mecobalamin (Vitamin B12) 5,000 mcg tablet,disintegra ting Discontinued MCG PO November 18, 2024 12:00am November 25, 2024 2:27pm pioglitazone 15 mg oral tablet (13 sources) Peroxisome Proliferator Receptor alpha Agonist, Peroxisome Proliferator Receptor gamma Agonist, Thiazolidinedione Start: 06-09-2019 End: 09-21-2024 take 1 tablet by mouth once daily Pioglitazone (Actos) 15 mg Tablet Discontinued 15 MG PO Daily June 09, 2019 1:00am September 21, 2024 9:36am rifAXIMin 550 mg oral tablet (4 sources) Rifamycin Antibacterial Start: 11-05-2024 End: 11-18-2024 take 1 tablet by mouth twice daily Rifaximin 550 mg tablet Discontinued 550 MG PO Twice daily November 05, 2024 12:00am November 18, 2024 8:34am traMADol hydrochloride 50 mg oral tablet (10 sources) Opioid Agonist Start: 09-22-2024 End: 11-05-2024 take 1 tablet by mouth every four hours as needed for pain Tramadol 50 mg tablet Discontinued 50 MG PO Q4H as needed for pain 24 02September 22, 2024 1:00am November 05, 2024 10:14am zinc acetate 50 mg oral capsule (2 sources) Start: 11-18-2024 End: 11-25-2024 take 1 capsule by mouth once daily Zinc Acetate (Galzin) 50 mg (zinc) capsule Discontinued 50 MG PO Daily November 18, 2024 12:00am November 25, 2024 2:27pm zinc sulfate 220 mg oral tablet (13 sources) Start: 06-09-2019 End: 11-05-2024 take 1 tablet by mouth twice daily Zinc Sulfate 220 mg Tablet Discontinued 220 MG PO Twice daily June 09, 2019 1:00am November 05, 2024 10:14am Problems Problem Classification Problem Date Documented Da te Episodic/Chronic Deficiency and other anemia (13 sources) Pancytopenia; Translations: [Other pancytopenia] 06-09-2019 Chronic Deficiency and other anemia (1 source) Other pancytopenia; Translations: [Other pancytopenia] Onset: 11-05-2024 Chronic Diabetes mellitus without complication (4 sources) Type 2 diabetes mellitus without complications; Translations: [TYPE 2 DM WITHOUT COMPLICATIONS] Onset: 12-05-2022 Chronic Disorders of lipid metabolism (2 sources) Mixed hyperlipidemia; Translations: [Mixed hyperlipidemia] Onset: 04-29-2024 Chronic Essential hypertension (2 sources) Essential (primary) hypertension; Translations: [Essential (primary) hypertension] Onset: 04-29-2024 Chronic Fracture of upper limb (20 sources) Fracture of coronoid process of ulna; Translations: [Displaced fracture of coronoid process of left ulna, initial encounter for closed fracture] Onset: 10-07-2024 09-18-2024 Episodic Hepatitis (18 sources) Cirrhosis - non-alcoholic; Translations: [Nonalcoholic steatohepatitis (VELOZ)] Onset: 11-05-2024 06-09-2019 Chronic Other circulatory disease (4 sources) Presence of other vascular implants and grafts; Translations: [Other postprocedural status] 11-05-2024 Chronic Other gastrointestinal disorders (4 sources) Refractory ascites; Translations: [Other ascites] 11-05-2024 Episodic Other gastrointestinal disorders (4 sources) History of esophageal varices; Translations: [Personal history of other diseases of the digestive system] 11-05-2024 Episodic Other gastrointestinal disorders (4 sources) Personal history of other diseases of the digestive system; Translations: [Personal history of other diseases of digestive system] 11-05-2024 Episodic Other gastrointestinal disorders (4 sources) Other ascites; Translations: [Other ascites] 11-05-2024 Episodic Other liver diseases (4 sources) Portal hypertension; Translations: [Portal hypertension] 11-05-2024 Chronic Other liver diseases (5 sources) Portal hypertension; Translations: [Portal hypertension] Onset: 11-26-2024 11-05-2024 Chronic Other liver diseases (1 source) Unspecified cirrhosis of liver; Translations: [Unspecified cirrhosis of liver] Onset: 11-05-2024 Chronic Other liver diseases (4 sources) Decompensated cirrhosis of liver; Translations: [Hepatic failure, unspecified without coma] 11-05-2024 Episodic Other liver diseases (4 sources) Hepatic failure, unspecified without coma; Translations: [Cirrhosis of liver without mention of alcohol] 11-05-2024 Episodic Other lower respiratory disease (2 sources) Shortness of breath; Translations: [Shortness of breath] Onset: 05-05-2024 Episodic Other screening for suspected conditions (not mental disorders or infectious disease) (4 sources) Abnormal findings on diagnostic imaging of heart and coronary circulation; Translations: [Abnormal result of other cardiovascular function study] Onset: 05-01-2024 Episodic Residual codes; unclassified (15 sources) Other specified postprocedural states; Translations: [Other postprocedural status] 10-07-2024 Episodic Results Test Name Value Interpretation Reference Range Facility CT abdomen wo/w conon 2024 CT abdomen wo/w con [facility] [place] [address] [place] [address] CT Scan Report Signed Patient: Gerson Penn MR#: [id number] : 1955 Acct:[id number] Age/Sex: 68 / M ADM Date: 11/26/24 Loc: CT Room: Type: [facility] Attending Dr: Derrek Rodgers MD Copies to: Derrek Rodgers MD Ordering Provider: Derrek Rodgers MD Date of Service: 11/26/24 CT/CT abdomen wo/w con: K76.6 - Portal hypertension CT ABDOMEN WITH AND WITHOUT INTRAVENOUS CONTRAST: CLINICAL HISTORY: Portal hypertension. Liver cirrhosis. COMPARISON: CT abdomen 07/28/2019. TECHNIQUE: Spiral images were obtained through the abdomen and pelvis before and after the administration of intravenous contrast. This CT exam was performed using one or more following dose reduction techniques: Automated exposure control, adjustment of the mA and/or kV according to patient size, or use of iterative reconstruction technique. FINDINGS: Lung Bases: [Bibasilar atelectasis. Trace bilateral pleural effusions.] Organs:Cirrhotic appearing liver with TIPS shunt in place. No arterially enhancing lesion with washout is identified to suggest hepatocellular carcinoma. There is heterogeneous enhancement involving the right lobe of the liver. A similar process is seen on the prior study given differences in bolus timing and protocol. Hepatic and portal veins appear patent. Gallbladder is contracted with associated wall thickening/pericholecystic fluid. Pancreas is unremarkable. Mild splenomegaly measuring 13.2 cm. Adrenal glands appear unremarkable. Kidneys demonstrate no stone, mass or hydronephrosis. Cystic changes involving the kidneys. Aorta appears normal in caliber.[ GI: Stomach is grossly unremarkable. Visualized small bowel and colon demonstrate no acute process.[ Peritoneum/Retroperitoneum: Small amount of ascites. No free air or lymphadenopathy.[ Abd wall/Bones:Abdominal wall demonstrate no acute findings. Body wall anasarca. [chronic compression deformity involving the L1 vertebral body new since 2019. Scattered degenerative change. CT/CT abdomen wo/w con IMPRESSION: Cirrhotic liver with TIPS shunt in place. No arterially enhancing lesion with washout is identified to suggest hepatocellular carcinoma. There is heterogeneous enhancement involving the right lobe of the liver. A similar process is seen on the 2019 study given differences in bolus timing and protocol. Correlation with alpha-fetoprotein level is suggested. Infiltrative HCC cannot be excluded. . Splenomegaly. Small moderate ascites. Chronic appearing compression deformity L1 vertebral body. Trace bilateral pleural effusions. Impression dictated by: Gage Noland Jr., DBrandenOBranden 11/26/2024 3:27 PM Dictation Location: [place] [address] Transcribed By: [facility] 11/26/24 1527 Dictated By: Gage Noland Jr, DO 11/26/24 1519 Signed By: 11/26/24 1527 Normal [facility] Urine Cultureon 11-18-2024 Bacteria identified Cx Nom (U) ORGANISM: Enterobacter cloacae complex (O:ENTCLOCPLX) Cochrane Count >100,000 Aerobic LACHELLE Charge (NMIC56) SUSCEPTIBILITY ORGANISM: O:ENTCLOCPLX ANTIBIOTIC INTERPRETATION LACHELLE Amikacin S <16 Aztreonam IB <4 Cefepime S <2 Ceftazidime IB <1 Ceftriaxone R 8 Cefuroxime R >16 Ciprofloxacin S <0.25 Ertapenem S <0.5 Gentamicin S <2 Levofloxacin S <0.5 Meropenem S <1 Meropenem/Vaborbactam S <2 Nitrofurantoin R >64 Piperacillin/Tazobactam IB <8 Tetracycline S <4 Tigecycline S <2 Tobramycin S <2 Trimethoprim/Sulfamethoxazo le S <0.5 S = SUSCEPTIBLE I = INTERMEDIATE R = RESISTANT BLANK = DATA NOT AVAILABLE, OR DRUG NOT ADVISABLE OR TESTED R* = RESISTANCE DUE TO EXTENDED SPECTRUM BETA-LACTAMASES ESBL = EXTENDED SPECTRUM BETA-LACTAMASE TFG = THYMIDINE-DEPENDENT STRAIN JASMIN = BETA-LACTAMASE POSITIVE IB = INDUCIBLE BETA-LACTAMASE. APPEARS IN PLACE OF 'S' WITH SPECIES KNOWN TO POSSESS INDUCIBLE BETA-LACTAMASES. POTENTIALLY THEY MAY BECOME RESISTANT TO ALL B-LACTAM DRUGS. PERFORMED BY: [place] [address] PATHOLOGIST OXYACETYLENE BURNER LEANDRA WALSH M.D. Normal [facility] Comment on above: Performed By: #### H EMOCHROM, HAAB, HCBIGM, HCV RX PCR, HAABT, HBSAB, HBCAB, HBSAG, CERULOP, MITOM2, AFPTM, ALPHA PHEN, IGG, DYLAN, SMAB, L-K MICRO #### [facility] , #### PT, CMP, KYLE, CBC #### [facility] [address] Urine cultureOrdered By: Wilfrido Muñoz on 11-18-2024 Bacteria identified Cx Nom (U) Abnormal [facility] AFP Tumor Marker, Serumon AFP Tumor Marker, Serum 9.3 ng/mL High 0.0-8.4 [facility] Comment on above: Result Comment: [facility] [employer] Electrochemiluminescence Immunoassay (ECLIA) Values obtained with different assay methods or kits cannot be used interchangeably. Results cannot be interpreted as absolute evidence of the presence or absence of malignant disease. This test is not interpretable in females. Performed at: [address] [id number] Developmental Behavioral Physician: Stewart Palmer PhD, Phone: [phone] Performed By: #### H EMOCHROM, HAAB, HCBIGM, HCV RX PCR, HAABT, HBSAB, HBCAB, HBSAG, CERULOP, MITOM2, AFPTM, ALPHA PHEN, IGG, DYLAN, SMAB, L-K MICRO ####[facility] ,#### PT, CMP, KYLE, CBC ####[facility] [id number] DYLAN Antinuclear Antibodieson 11-05-2024 Antinuclear Abs, IFA Negative Normal . [facility] Comment on above: Result Comment: Nega tive <1:80 Borderline 1:80 Positive >1:80 ICAP nomenclature: AC-0 For more information about Hep-2 cell patterns use ANApatterns.org, the official website for the International Consensus on Antinuclear Antibody (DYLAN) Patterns (ICAP). Performed at: - [facility] [address] [id number] Developmental Behavioral Physician: Stewart Palmer PhD, Phone: [phone] Performed By: #### H EMOCHROM, HAAB, HCBIGM, HCV RX PCR, HAABT, HBSAB, HBCAB, HBSAG, CERULOP, MITOM2, AFPTM, ALPHA PHEN, IGG, DYLAN, SMAB, L-K MICRO ####[facility] ,#### PT, CMP, KYLE, CBC ####[facility] [id number] Actin smooth muscle IgG Ab [ Units/volume] in SerumOrdered By: Immatthew Rodgers on 11-05-2024 Actin smooth muscle IgG Qn (S) Actin smooth muscle IgG Ab [Units/volume] in Serum 0-19 [facility] Comment on above: Negative 0 - 19 Weak positive 20 - 30 Moderate to strong positive >30 Actin Antibodies are found in 52-85% of patients with autoimmune hepatitis or chronic active hepatitis and in 22% of patients with primary biliary cirrhosis. Alanine aminotransferase [En zymatic activity/volume] in Serum or PlasmaOrdered By: Imad Geronimoad on 11-05-2024 ALT [Catalytic activity/Vol] Alanine aminotransferase [Enzymatic activity/volume] in Serum or Plasma High 7-52 [facility] Albumin [Mass/volume] in Ser um or Plasma by Bromocresol green (BCG) dye binding methoOrdered By: Imad Asaad on 11-05-2024 Albumin BCG dye [Mass/Vol] Albumin [Mass/volume] in Serum or Plasma by Bromocresol green (BCG) dye binding metho Low 3.5-5.7 [facility] Alkaline phosphatase [Enzyma tic activity/volume] in Serum or PlasmaOrdered By: Imad Asaad on 11-05-2024 ALP [Catalytic activity/Vol] Alkaline phosphatase [Enzymatic activity/volume] in Serum or Plasma High 34-104 [facility] [id number] Phenotyp gonzales 11-05-2024 Alpha 1 Anti-Trypsin 104 mg/dL Normal 101-187 [facility] Comment on above: Performed By: #### H EMOCHROM, HAAB, HCBIGM, HCV RX PCR, HAABT, HBSAB, HBCAB, HBSAG, CERULOP, MITOM2, AFPTM, ALPHA PHEN, IGG, DYLAN, SMAB, L-K MICRO ####[facility] ,#### PT, CMP, KYLE, CBC ####[facility] Phenotype (P1) MS Normal . [facility] Comment on above: Result Comment: MM Phenotype is considered to be normal , producing normal serum levels of fzgds-1-zoidqabl inhibitor and not associated with clinical disease. Associated A1A total serum levels in other phenotypes and their incidence in the general population are shown in the table below. Phenotype Population % function A-1-AT Conc.* Incidence % compared to MM (Typical Range) MM 86.5% 100% (96 - 189) MS 8.0% 86% (83 - 161) MZ 3.9% 61% (60 - 111) FM 0.4% 100% (93 - 191) SZ 0.3% 41% (42 - 75) SS 0.1% 64% (62 - 119) ZZ 0.05% 19% (16 - 38) FS 0.05% 70% (70 - 128) FZ Unknown 46% (44 - 88) FF Unknown Unknown *A-1-AT concentration in the homozygous MM phenotype is taken as the reference normal. Percent deficiency in each phenotype is reported relative to this reference. Ranges used to confirm phenotype. Performed at: [facility] [address] [id number] Developmental Behavioral Physician: Stewart Palmer PhD, Phone: [phone] Performed at: [facility] [address] [id number] Developmental Behavioral Physician: Beto Vincent MD, Phone: [phone] Performed By: #### H EMOCHROM, HAAB, HCBIGM, HCV RX PCR, HAABT, HBSAB, HBCAB, HBSAG, CERULOP, MITOM2, AFPTM, ALPHA PHEN, IGG, DYLAN, SMAB, L-K MICRO ####[facility] ,#### PT, CMP, KYLE, CBC ####[facility] [id number] [place] [id number] [facility] Aspartate aminotransferase [ Enzymatic activity/volume] in Serum or PlasmaOrdered By: Imad Asaad on 11-05-2024 AST [Catalytic activity/Vol] Aspartate aminotransferase [Enzymatic activity/volume] in Serum or Plasma High 13-39 [facility] Basophils Auto (Bld) [#/Vol] Ordered By: Imad Asaad on 11-05-2024 Basophils (Bld) [#/Vol] Automated basophil count 0.0-0.2 [facility] Basophils/100 WBC Auto (Bld) Ordered By: Imad Asaad on 11-05-2024 Basophils/100 WBC (Bld) Automated basophil % . [facility] Bilirubin.total [Mass/volume ] in Serum or PlasmaOrdered By: Imad Asaad on 11-05-2024 Bilirubin [Mass/Vol] Bilirubin.total [Mass/volume] in Serum or Plasma High 0.3-1.0 [facility] Comment on above: Samples from patient s who have taken Naproxen have shown spurious elevation in Total Bilirubin levels. A metabolite of Naproxen, O-desmethylnaproxen, has been shown to interfere with the Jendrassik-Grof method for measuring Total Bilirubin. Blood or tissue HFE gene mut ations identification by molecular genetics methodOrdered By: Imad Asa on 11-05-2024 HFE gene targeted mutation analysis Molgen Nom (Bld/Tiss) Blood or tissue HFE gene mutations identification by molecular genetics method . [facility] Comment on above: Result:c.845G>A (p.C [id number]) - Not Detectedc.187C>G (p.Rsy18Xfc) - Not Detectedc.193A>T (p.Qgk53Qpz) - Not DetectedNot associated with increased risk to develop clinicalsymptoms of Hereditary Hemochromatosis. In symptomaticindividuals, other causes of iron overload should beevaluated. See Additional Information and Comments.Additional Clinical Information:Hereditary hemochromatosis (HFE related) is an autosomalrecessive iron storage disorder. Patients may have agenetic diagnosis of hereditary hemochromatosis and nevershow clinical symptoms. Clinical symptoms typically appearbetween 40 to 60 years in males and after menopause infemales. Signs and symptoms may include organ damage,primarily in the liver, risk for hepatocellularcarcinoma, diabetes, and heart disease due to ironaccumulation. Life expectancy may be decreased inindividuals who develop cirrhosis. Treatment forclinically symptomatic individuals may includetherapeutic phlebotomy. Liver transplant may be used totreat end stage liver failure. For preventive care,monitoring for iron overload is recommended for patientswho are homozygous for c.845G>A (p.Qdg215Vpn) and have yetto experience clinical symptoms.Comments:The most common HFE variants associated with hereditaryhemochromatosis are c.845G>A (p.Hok650Kdt), c.187C>G(p.Xqc96Uon), c.193A>T (p.Llb22Zct). While patientshomozygous for c.845G>A (p.Xoc223Jku) are the most likelyto present clinical symptoms, less than 10% developclinically significant iron overload with tissue and organdamage.Genetic counseling is recommended to discuss the potentialclinical implications of positive results, as well asrecommendations for testing family members.Genetic Coordinators are available for health careproviders to discuss results at [phone]).Test Details:Three variants analyzed:c.845G>A (p.Xja293Xjw), commonly referred to as C282Yc.187C>G (p.Yqn46Kkk), commonly referred to as H63Dc.193A>T (p.Ecw69Adm), commonly referred to as P23NHoufqdq/Limitations:DNA Analysis of the HFE gene (NM_[id number]) was performedby PCR amplification followed by restriction enzymedigestion analyses. Results must be combined with clinicalinformation for the most accurate interpretation. Molecular-based testing is highly accurate, but as in any laboratorytest, diagnostic errors may occur. False positive or falsenegative results may occur for reasons that include geneticvariants, blood transfusions, bone marrow transplantation,somatic or tissue-specific mosaicism, mislabeled samples,or erroneous representation of family relationships.This test was developed and its performancecharacteristics determined by [facility]. It has not beencleared or approved by the Food and Drug Administration.References:Rafa BR, Vel PC, Art KV, Wai LW, Nate ;[place] [employer].Diagnosis and management of hemochromatosis: 2011 practiceguideline by the [place] Association for the Study ofLiver Diseases. Hepatology. 2010;54(1):328-43. doi:10.1002/hep.93862. PMID: 63598392; PMCID: FQF6243931.Nigel G, Clay P, Fatoumata DW, Mervat H, Juan O,Alex S, Raulito I, Marv M, Jimbo S. QN best practiceguidelines for the molecular genetic diagnosis ofhereditary hemochromatosis (HH). Eur J Hum Neelima. 2016Apr;24(4):479-95. doi: 10.1038/ejhg.2015.128. Epub 2014. PMID: 33646392; PMCID: [id number]. Calcium [Mass/volume] in Ser um or PlasmaOrdered By: Derrek Rodgers on 11-05-2024 Calcium [Mass/Vol] Calcium [Mass/volume ] in Serum or Plasma 8.6-10.3 [facility] Carbon dioxide, total [Moles /volume] in Serum or PlasmaOrdered By: Immatthew Asaad on 11-05-2024 CO2 [Moles/Vol] Carbon dioxide, tota l [Moles/volume] in Serum or Plasma 21.0-31.0 [facility] Ceruloplasminon 11-05-2024 Ceruloplasmin 19.1 mg/dL Normal 16.0-31.0 [facility] Comment on above: Result Comment: Perf ormed at: - [facility] [address] [id number] Developmental Behavioral Physician: Stewart Palmer PhD, Phone: [phone] PERFORMED BY: [address] [place] [address] PATHOLOGIST OXYACETYLENE BURNER LEANDRA WALSH M.D. Performed By: #### H EMOCHROM, HAAB, HCBIGM, HCV RX PCR, HAABT, HBSAB, HBCAB, HBSAG, CERULOP, MITOM2, AFPTM, ALPHA PHEN, IGG, DYLAN, SMAB, L-K MICRO ####[facility] ,#### PT, CMP, KYLE, CBC ####[place] [id number] [address] Chloride [Moles/volume] in S saud or PlasmaOrdered By: Derrek Rodgers on 11-05-2024 Chloride [Moles/Vol] Chloride [Moles/vol ume] in Serum or Plasma 98-107 [facility] Complete Blood Count Auto Di ffon 11-05-2024 Basophils (Bld) [#/Vol] 0.0 10*3/uL Normal 0.0-0.2 [facility] Comment on above: Result Comment: PERF ORMED BY: [place] [address] PATHOLOGIST OXYACETYLENE BURNER LEANDRA WASLH M.D. Performed By: #### H EMOCHROM, HAAB, HCBIGM, HCV RX PCR, HAABT, HBSAB, HBCAB, HBSAG, CERULOP, MITOM2, AFPTM, ALPHA PHEN, IGG, DYLAN, SMAB, L-K MICRO #### [facility] , #### PT, CMP, KYLE, CBC #### [address] Basophils/100 WBC (Bld) 0.7 % Normal . [facility] Comment on above: Performed By: #### H EMOCHROM, HAAB, HCBIGM, HCV RX PCR, HAABT, HBSAB, HBCAB, HBSAG, CERULOP, MITOM2, AFPTM, ALPHA PHEN, IGG, DYLAN, SMAB, L-K MICRO #### [facility] , #### PT, CMP, KYLE, CBC #### [place] [address] Eosinophils (Bld) [#/Vol] 0.1 10*3/uL Normal 0.0-0.45 [facility] Comment on above: Performed By: #### H EMOCHROM, HAAB, HCBIGM, HCV RX PCR, HAABT, HBSAB, HBCAB, HBSAG, CERULOP, MITOM2, AFPTM, ALPHA PHEN, IGG, DYLAN, SMAB, L-K MICRO #### [facility] , #### PT, CMP, KYLE, CBC #### [address] Eosinophils/100 WBC (Bld) 1.8 % Normal . [facility] Comment on above: Performed By: #### H EMOCHROM, HAAB, HCBIGM, HCV RX PCR, HAABT, HBSAB, HBCAB, HBSAG, CERULOP, MITOM2, AFPTM, ALPHA PHEN, IGG, DYLAN, SMAB, L-K MICRO #### [facility] , #### PT, CMP, KYLE, CBC #### [address] Erythrocyte distribution width (RBC) [Ratio] 19.0 % High 12.0-14.8 [facility] Comment on above: Performed By: #### H EMOCHROM, HAAB, HCBIGM, HCV RX PCR, HAABT, HBSAB, HBCAB, HBSAG, CERULOP, MITOM2, AFPTM, ALPHA PHEN, IGG, DYLAN, SMAB, L-K MICRO #### [facility] , #### PT, CMP, KYLE, CBC #### [address] Hematocrit (Bld) [Volume fraction] 37.3 % Low 38.8-50.0 [facility] Comment on above: Performed By: #### H EMOCHROM, HAAB, HCBIGM, HCV RX PCR, HAABT, HBSAB, HBCAB, HBSAG, CERULOP, MITOM2, AFPTM, ALPHA PHEN, IGG, DYLAN, SMAB, L-K MICRO #### [facility] , #### PT, CMP, KYLE, CBC #### [address] Hemoglobin (Bld) [Mass/Vol] 12.7 g/dL Low 13.0-17.0 [facility] Comment on above: Performed By: #### H EMOCHROM, HAAB, HCBIGM, HCV RX PCR, HAABT, HBSAB, HBCAB, HBSAG, CERULOP, MITOM2, AFPTM, ALPHA PHEN, IGG, DYLAN, SMAB, L-K MICRO #### [facility] , #### PT, CMP, KYLE, CBC #### [address] Lymphocytes (Bld) [#/Vol] 0.8 10*3/uL Low 1.00-4.8 [facility] Comment on above: Performed By: #### H EMOCHROM, HAAB, HCBIGM, HCV RX PCR, HAABT, HBSAB, HBCAB, HBSAG, CERULOP, MITOM2, AFPTM, ALPHA PHEN, IGG, DYLAN, SMAB, L-K MICRO #### [facility] , #### PT, CMP, KYLE, CBC #### [address] Lymphocytes/100 WBC (Bld) 11.1 % Normal . [facility] Comment on above: Performed By: #### H EMOCHROM, HAAB, HCBIGM, HCV RX PCR, HAABT, HBSAB, HBCAB, HBSAG, CERULOP, MITOM2, AFPTM, ALPHA PHEN, IGG, DYLAN, SMAB, L-K MICRO #### [facility] , #### PT, CMP, KYEL, CBC #### [address] MCH (RBC) [Entitic mass] 34.2 pg Normal 27.5-35.2 [facility] Comment on above: Performed By: #### H EMOCHROM, HAAB, HCBIGM, HCV RX PCR, HAABT, HBSAB, HBCAB, HBSAG, CERULOP, MITOM2, AFPTM, ALPHA PHEN, IGG, DYLAN, SMAB, L-K MICRO #### [facility] , #### PT, CMP, KYLE, CBC #### [address] MCV (RBC) [Entitic vol] 100.9 fL Normal 83.5-101 [facility] Comment on above: Performed By: #### H EMOCHROM, HAAB, HCBIGM, HCV RX PCR, HAABT, HBSAB, HBCAB, HBSAG, CERULOP, MITOM2, AFPTM, ALPHA PHEN, IGG, DYLAN, SMAB, L-K MICRO #### [facility] , #### PT, CMP, KYLE, CBC #### [address] Mean Corpuscular HGB Conc 33.9 g/dL Normal 32.5-35.6 [facility] Comment on above: Performed By: #### H EMOCHROM, HAAB, HCBIGM, HCV RX PCR, HAABT, HBSAB, HBCAB, HBSAG, CERULOP, MITOM2, AFPTM, ALPHA PHEN, IGG, DYLAN, SMAB, L-K MICRO #### [facility] , #### PT, CMP, KYLE, CBC #### [address] Monocytes (Bld) [#/Vol] 0.5 10*3/uL Normal 0.0-0.8 [facility] Comment on above: Performed By: #### H EMOCHROM, HAAB, HCBIGM, HCV RX PCR, HAABT, HBSAB, HBCAB, HBSAG, CERULOP, MITOM2, AFPTM, ALPHA PHEN, IGG, DYLAN, SMAB, L-K MICRO #### [facility] , #### PT, CMP, KYLE, CBC #### [address] Monocytes/100 WBC (Bld) 7.8 % Normal . [facility] Comment on above: Performed By: #### H EMOCHROM, HAAB, HCBIGM, HCV RX PCR, HAABT, HBSAB, HBCAB, HBSAG, CERULOP, MITOM2, AFPTM, ALPHA PHEN, IGG, DYLAN, SMAB, L-K MICRO #### [facility] , #### PT, CMP, KYLE, CBC #### [address] Neutrophils (Bld) [#/Vol] 5.4 10*3/uL Normal 1.8-7.7 [facility] Comment on above: Performed By: #### H EMOCHROM, HAAB, HCBIGM, HCV RX PCR, HAABT, HBSAB, HBCAB, HBSAG, CERULOP, MITOM2, AFPTM, ALPHA PHEN, IGG, DYLAN, SMAB, L-K MICRO #### [facility] , #### PT, CMP, KYLE, CBC #### [address] Neutrophils/100 WBC (Bld) 78.6 % Normal . [facility] Comment on above: Performed By: #### H EMOCHROM, HAAB, HCBIGM, HCV RX PCR, HAABT, HBSAB, HBCAB, HBSAG, CERULOP, MITOM2, AFPTM, ALPHA PHEN, IGG, DYLAN, SMAB, L-K MICRO #### [facility] , #### PT, CMP, KYLE, CBC #### [address] NRBC% 0.1 /100{WBC} Normal 0-0.5 [facility] Comment on above: Performed By: #### H EMOCHROM, HAAB, HCBIGM, HCV RX PCR, HAABT, HBSAB, HBCAB, HBSAG, CERULOP, MITOM2, AFPTM, ALPHA PHEN, IGG, DYLAN, SMAB, L-K MICRO #### [facility] , #### PT, CMP, KYLE, CBC #### [address] Platelet mean volume (Bld) [Entitic vol] 7.9 fL Normal 6.6-10.1 [facility] Comment on above: Performed By: #### H EMOCHROM, HAAB, HCBIGM, HCV RX PCR, HAABT, HBSAB, HBCAB, HBSAG, CERULOP, MITOM2, AFPTM, ALPHA PHEN, IGG, DYLAN, SMAB, L-K MICRO #### [facility] , #### PT, CMP, KYLE, CBC #### [address] Platelets (Bld) [#/Vol] 172 10*3/uL Normal 150-450 [facility] Comment on above: Performed By: #### H EMOCHROM, HAAB, HCBIGM, HCV RX PCR, HAABT, HBSAB, HBCAB, HBSAG, CERULOP, MITOM2, AFPTM, ALPHA PHEN, IGG, DYLAN, SMAB, L-K MICRO #### [facility] , #### PT, CMP, KYLE, CBC #### [address] RBC (Bld) [#/Vol] 3.70 10*6/uL Low 3.90-5.60 [facility] Comment on above: Performed By: #### H EMOCHROM, HAAB, HCBIGM, HCV RX PCR, HAABT, HBSAB, HBCAB, HBSAG, CERULOP, MITOM2, AFPTM, ALPHA PHEN, IGG, DYLAN, SMAB, L-K MICRO #### [facility] , #### PT, CMP, KYLE, CBC #### [address] WBC (Bld) [#/Vol] 6.8 10*3/uL Normal 4.1-10.5 [facility] Comment on above: Performed By: #### H EMOCHROM, HAAB, HCBIGM, HCV RX PCR, HAABT, HBSAB, HBCAB, HBSAG, CERULOP, MITOM2, AFPTM, ALPHA PHEN, IGG, DYLAN, SMAB, L-K MICRO #### [facility] , #### PT, CMP, KYLE, CBC #### [address] Comprehensive Metabolic Pane levy 11-05-2024 Albumin [Mass/Vol] 2.1 g/dL Low 3.5-5.7 [facility] Comment on above: Performed By: #### H EMOCHROM, HAAB, HCBIGM, HCV RX PCR, HAABT, HBSAB, HBCAB, HBSAG, CERULOP, MITOM2, AFPTM, ALPHA PHEN, IGG, DYLAN, SMAB, L-K MICRO #### [facility] , #### PT, CMP, KYLE, CBC #### [address] Albumin/Globulin [Mass ratio] 0.6 {ratio} Normal [facility] Comment on above: Performed By: #### H EMOCHROM, HAAB, HCBIGM, HCV RX PCR, HAABT, HBSAB, HBCAB, HBSAG, CERULOP, MITOM2, AFPTM, ALPHA PHEN, IGG, DYLAN, SMAB, L-K MICRO #### [facility] , #### PT, CMP, KYLE, CBC #### [address] ALP [Catalytic activity/Vol] 245 U/L High 34-104 [facility] Comment on above: Performed By: #### H EMOCHROM, HAAB, HCBIGM, HCV RX PCR, HAABT, HBSAB, HBCAB, HBSAG, CERULOP, MITOM2, AFPTM, ALPHA PHEN, IGG, DYLAN, SMAB, L-K MICRO #### [facility] , #### PT, CMP, KYLE, CBC #### [address] ALT [Catalytic activity/Vol] 86 U/L High 7-52 [facility] Comment on above: Performed By: #### H EMOCHROM, HAAB, HCBIGM, HCV RX PCR, HAABT, HBSAB, HBCAB, HBSAG, CERULOP, MITOM2, AFPTM, ALPHA PHEN, IGG, DYLAN, SMAB, L-K MICRO #### [facility] , #### PT, CMP, KYLE, CBC #### [address] Anion gap [Moles/Vol] 10.5 mmol/L Normal 6.0-15.0 [facility] Comment on above: Performed By: #### H EMOCHROM, HAAB, HCBIGM, HCV RX PCR, HAABT, HBSAB, HBCAB, HBSAG, CERULOP, MITOM2, AFPTM, ALPHA PHEN, IGG, DYLAN, SMAB, L-K MICRO #### [facility] , #### PT, CMP, KYLE, CBC #### [address] AST [Catalytic activity/Vol] 77 U/L High 13-39 [facility] Comment on above: Performed By: #### H EMOCHROM, HAAB, HCBIGM, HCV RX PCR, HAABT, HBSAB, HBCAB, HBSAG, CERULOP, MITOM2, AFPTM, ALPHA PHEN, IGG, DYLAN, SMAB, L-K MICRO #### [facility] , #### PT, CMP, KYLE, CBC #### [address] Bilirubin [Mass/Vol] 3.2 mg/dL High 0.3-1.0 [facility] Comment on above: Result Comment: Samp les from patients who have taken Naproxen have shown spurious elevation in Total Bilirubin levels. A metabolite of Naproxen, O-desmethylnaproxen, has been shown to interfere with the Regina-Evert method for measuring Total Bilirubin. Performed By: #### H EMOCHROM, HAAB, HCBIGM, HCV RX PCR, HAABT, HBSAB, HBCAB, HBSAG, CERULOP, MITOM2, AFPTM, ALPHA PHEN, IGG, DYLAN, SMAB, L-K MICRO #### [facility] , #### PT, CMP, KYLE, CBC #### [address] Calcium [Mass/Vol] 8.9 mg/dL Normal 8.6-10.3 [facility] Comment on above: Performed By: #### H EMOCHROM, HAAB, HCBIGM, HCV RX PCR, HAABT, HBSAB, HBCAB, HBSAG, CERULOP, MITOM2, AFPTM, ALPHA PHEN, IGG, DYLAN, SMAB, L-K MICRO #### [facility] , #### PT, CMP, KYLE, CBC #### [address] Chloride [Moles/Vol] 100 mmol/L Normal 98-107 [facility] Comment on above: Performed By: #### H EMOCHROM, HAAB, HCBIGM, HCV RX PCR, HAABT, HBSAB, HBCAB, HBSAG, CERULOP, MITOM2, AFPTM, ALPHA PHEN, IGG, DYLAN, SMAB, L-K MICRO #### [facility] , #### PT, CMP, KYLE, CBC #### [address] CO2 [Moles/Vol] 28.4 mmol/L Normal 21.0-31.0 [facility] Comment on above: Performed By: #### H EMOCHROM, HAAB, HCBIGM, HCV RX PCR, HAABT, HBSAB, HBCAB, HBSAG, CERULOP, MITOM2, AFPTM, ALPHA PHEN, IGG, DYLAN, SMAB, L-K MICRO #### [facility] , #### PT, CMP, KYLE, CBC #### [address] Creatinine [Mass/Vol] 1.18 mg/dL Normal 0.70-1.30 [facility] Comment on above: Performed By: #### H EMOCHROM, HAAB, HCBIGM, HCV RX PCR, HAABT, HBSAB, HBCAB, HBSAG, CERULOP, MITOM2, AFPTM, ALPHA PHEN, IGG, DYLAN, SMAB, L-K MICRO #### [facility] , #### PT, CMP, KYLE, CBC #### [address] GFR/1.73 sq M.predicted MDRD (S/P/Bld) [Vol rate/Area] mL/min/{1.73_m2} Normal [facility] Comment on above: Performed By: #### H EMOCHROM, HAAB, HCBIGM, HCV RX PCR, HAABT, HBSAB, HBCAB, HBSAG, CERULOP, MITOM2, AFPTM, ALPHA PHEN, IGG, DYLAN, SMAB, L-K MICRO #### [facility] , #### PT, CMP, KYLE, CBC #### [address] Globulin (S) [Mass/Vol] 3.3 g/dL Normal [facility] Comment on above: Performed By: #### H EMOCHROM, HAAB, HCBIGM, HCV RX PCR, HAABT, HBSAB, HBCAB, HBSAG, CERULOP, MITOM2, AFPTM, ALPHA PHEN, IGG, DYLAN, SMAB, L-K MICRO #### [facility] , #### PT, CMP, KYLE, CBC #### [address] Glucose [Mass/Vol] 215 mg/dL High 70-100 [facility] Comment on above: Result Comment: [place] Glucose Reference Range is dependent on time and content of last meal. Glucose of more than 200 mg/dL in a nonstressed, ambulatory subject supports the diagnosis of Diabetes Mellitus. ADA recommended reference range Performed By: #### H EMOCHROM, HAAB, HCBIGM, HCV RX PCR, HAABT, HBSAB, HBCAB, HBSAG, CERULOP, MITOM2, AFPTM, ALPHA PHEN, IGG, DYLAN, SMAB, L-K MICRO #### [facility] , #### PT, CMP, KYLE, CBC #### [address] Potassium [Moles/Vol] 4.9 mmol/L Normal 3.5-5.1 [facility] Comment on above: Performed By: #### H EMOCHROM, HAAB, HCBIGM, HCV RX PCR, HAABT, HBSAB, HBCAB, HBSAG, CERULOP, MITOM2, AFPTM, ALPHA PHEN, IGG, DYLAN, SMAB, L-K MICRO #### [facility] , #### PT, CMP, KYLE, CBC #### [address] Protein [Mass/Vol] 5.4 g/dL Low 6.4-8.9 [facility] Comment on above: Performed By: #### H EMOCHROM, HAAB, HCBIGM, HCV RX PCR, HAABT, HBSAB, HBCAB, HBSAG, CERULOP, MITOM2, AFPTM, ALPHA PHEN, IGG, DYLAN, SMAB, L-K MICRO #### [facility] , #### PT, CMP, KYLE, CBC #### [address] Sodium [Moles/Vol] 134 mmol/L Low 136-145 [facility] Comment on above: Performed By: #### H EMOCHROM, HAAB, HCBIGM, HCV RX PCR, HAABT, HBSAB, HBCAB, HBSAG, CERULOP, MITOM2, AFPTM, ALPHA PHEN, IGG, DYLAN, SMAB, L-K MICRO #### [facility] , #### PT, CMP, KYLE, CBC #### [address] Urea nitrogen [Mass/Vol] 28 mg/dL High 7-25 [facility] Comment on above: Performed By: #### H EMOCHROM, HAAB, HCBIGM, HCV RX PCR, HAABT, HBSAB, HBCAB, HBSAG, CERULOP, MITOM2, AFPTM, ALPHA PHEN, IGG, DYLAN, SMAB, L-K MICRO #### [facility] , #### PT, CMP, KYLE, CBC #### [facility] [address] [place] [address] Creatinine [Mass/volume] in Serum or PlasmaOrdered By: Imad Asaad on 11-05-2024 Creatinine [Mass/Vol] Creatinine [Mass/v olume] in Serum or Plasma 0.70-1.30 [facility] Eosinophils Auto (Bld) [#/Vo l]Ordered By: Imad Asaad on 11-05-2024 Eosinophils (Bld) [#/Vol] Automated eosinophil count 0.0-0.45 [facility] Eosinophils/100 WBC Auto (Bl d)Ordered By: Imad Asaad on 11-05-2024 Eosinophils/100 WBC (Bld) Automated eosinophil % . [facility] Erythrocyte distribution wid th Auto (RBC) [Ratio]Ordered By: Imad Asaad on 11-05-2024 Erythrocyte distribution width (RBC) [Ratio] Erythrocyte distribution width [Ratio] by Automated count High 12.0-14.8 [facility] Ferritinon 11-05-2024 Ferritin [Mass/Vol] 1486.4 ng/mL High 23.9-336.2 [facility] Comment on above: Result Comment: PERF ORMED BY: [place] [address] PATHOLOGIST OXYACETYLENE BURNER LEANDRA WALSH M.D. Performed By: #### H EMOCHROM, HAAB, HCBIGM, HCV RX PCR, HAABT, HBSAB, HBCAB, HBSAG, CERULOP, MITOM2, AFPTM, ALPHA PHEN, IGG, DYLAN, SMAB, L-K MICRO #### [facility] , #### PT, CMP, KYLE, CBC #### [address] Ferritin [Mass/volume] in Se rum or PlasmaOrdered By: Imad Asaad on 11-05-2024 Ferritin [Mass/Vol] Ferritin [Mass/volum e] in Serum or Plasma High 23.9-336.2 [facility] Globulin Calc (S) [Mass/Vol] Ordered By: matthew [facility] on 11-05-2024 Globulin (S) [Mass/Vol] Serum globulin measurement by calculation (mass/volume) [facility] Glucose [Mass/volume] in Ser um or PlasmaOrdered By: [facility]thew [facility]24 Glucose [Mass/Vol] Glucose [Mass/volume ] in Serum or Plasma High 70-100 [facility] Comment on above: ADA recommended refe rence rangeRandom Glucose Reference Range is dependent on time and content of last meal. Glucose of more than 200 mg/dL in a nonstressed, ambulatory subject supports the diagnosis of Diabetes Mellitus. Hematocrit Auto (Bld) [Volum e fraction]Ordered By: matthew [facility] on 11-05-2024 Hematocrit (Bld) [Volume fraction] Hematocrit [Volume Fraction] of Blood by Automated count Low 38.8-50.0 [facility] Hemoglobin [Mass/volume] in BloodOrdered By: [facility] on 11-05-2024 Hemoglobin (Bld) [Mass/Vol] Hemoglobin [Mass/volume] in Blood Low 13.0-17.0 [facility] Hep C Ab wRfx to Qnt PCRon 0 11-05-2024 Hepatitis C Virus Antibody Non-Reactive Normal Non Reactive [facility] Comment on above: Performed By: #### H EMOCHROM, HAAB, HCBIGM, HCV RX PCR, HAABT, HBSAB, HBCAB, HBSAG, CERULOP, MITOM2, AFPTM, ALPHA PHEN, IGG, DYLAN, SMAB, L-K MICRO #### [facility] , #### PT, CMP, KYLE, CBC #### [facility] [address] Interpretation Hepatitis C Comment Normal . [facility] Comment on above: Result Comment: Not infected with HCV unless early or acute infection is suspected (which may be delayed in an immunocompromised individual), or other evidence exists to indicate HCV infection. Performed By: #### H EMOCHROM, HAAB, HCBIGM, HCV RX PCR, HAABT, HBSAB, HBCAB, HBSAG, CERULOP, MITOM2, AFPTM, ALPHA PHEN, IGG, DYLAN, SMAB, L-K MICRO #### [facility] , #### PT, CMP, KYLE, CBC #### [facility] [address] Hepatitis A Antibody IgMon 0 11-05-2024 Hepatitis A Antibody IgM Negative Normal Negative [facility] Comment on above: Result Comment: A ne gative anti-HAV IgM result suggests no recent or current HAV infection. Performed By: #### H EMOCHROM, HAAB, HCBIGM, HCV RX PCR, HAABT, HBSAB, HBCAB, HBSAG, CERULOP, MITOM2, AFPTM, ALPHA PHEN, IGG, DYLAN, SMAB, L-K MICRO #### [facility] , #### PT, CMP, KYLE, CBC #### [address] Hepatitis A Antibody Totalon 11-05-2024 Hepatitis A Antibody Total Negative Normal Negative [facility] Comment on above: Result Comment: Comm ent: The HAV total antibody assay detects both IgG and IgM but does not differentiate between them. A negative result suggests susceptibility to infection. A positive result could be due to vaccination, previously resolved infection or active infection. Testing for HAV IgM should be performed if active HAV infection is suspected. [facility] offers profiles that will automatically reflex positive HAV total antibody results to IgM (e.g., panel #[id number] HAV Antibody w/ Rfx). Performed By: #### H EMOCHROM, HAAB, HCBIGM, HCV RX PCR, HAABT, HBSAB, HBCAB, HBSAG, CERULOP, MITOM2, AFPTM, ALPHA PHEN, IGG, DYLAN, SMAB, L-K MICRO #### [facility] , #### PT, CMP, KYLE, CBC #### [address] Hepatitis A virus Ab [Presen ce] in Serum by ImmunoassayOrdered By: Derrek Rodgers on 04-10-2025 HAV Ab IA Ql (S) Hepatitis A virus Ab [Presence] in Serum by Immunoassay Negative [facility] Comment on above: Comment: The HAV tot al antibody assay detects both IgG andIgM but does not differentiate between them. A negativeresult suggests susceptibility to infection. A positiveresult could be due to vaccination, previously resolvedinfection or active infection. Testing for HAV IgM shouldbe performed if active HAV infection is suspected. Labcorp[facility]ers profiles that will automatically reflex positive HAVtotal antibody results to IgM (e.g., panel #[id number] HAVAntibody w/ Rfx). Hepatitis A virus IgM antibo dy assayOrdered By: Derrek Rodgers on 11-05-2024 Hepatitis A IgM Antibody Negative Negative [facility] Comment on above: A negative anti-HAV IgM result suggests no recent orcurrent HAV infection. Hepatitis B Core Antibodyon 11-05-2024 Hepatitis B Core Antibody Negative Normal Negative [facility] Comment on above: Performed By: #### H EMOCHROM, HAAB, HCBIGM, HCV RX PCR, HAABT, HBSAB, HBCAB, HBSAG, CERULOP, MITOM2, AFPTM, ALPHA PHEN, IGG, DYLAN, SMAB, L-K MICRO ####[facility] ,#### PT, CMP, KYLE, CBC ####[facility] [address] [place] [address] [place] Hepatitis B Core Antibody Ig Mon 11-05-2024 Hepatitis B Core Antibody IgM Negative Normal Negative [facility] Comment on above: Result Comment: Perf ormed at: CB - [facility] [address] [id number] Developmental Behavioral Physician: Stewart Palmer PhD, Phone: [phone] Performed By: #### H EMOCHROM, HAAB, HCBIGM, HCV RX PCR, HAABT, HBSAB, HBCAB, HBSAG, CERULOP, MITOM2, AFPTM, ALPHA PHEN, IGG, DYLAN, SMAB, L-K MICRO #### [facility] , #### PT, CMP, KYLE, CBC #### [facility] C[facility] [address] [place] [address] Hepatitis B Surface Antibody on 11-05-2024 Hepatitis B Surface Antibody Non-Reactive Normal . [facility] Comment on above: Result Comment: Non Reactive: Not immune to HBV infection. Equivocal: Unable to determine if anti-HBs is present at levels consistent with immunity. Reactive: Anti-HBs concentration detected at greater than 10 mIU/mL. Individual is considered to be immune to infection with HBV. Performed By: #### H EMOCHROM, HAAB, HCBIGM, HCV RX PCR, HAABT, HBSAB, HBCAB, HBSAG, CERULOP, MITOM2, AFPTM, ALPHA PHEN, IGG, DYLAN, SMAB, L-K MICRO ####[facility] ,#### PT, CMP, KYLE, CBC ####[place] [address] [address] Hepatitis B Surface Antigeno n 11-05-2024 HBsAg Screen Negative Normal Negative [facility] Comment on above: Result Comment: PERF ORMED BY: [facility] [address] [place] [address] PATHOLOGIST OXYACETYLENE BURNER LEANDRA WALSH M.D. Performed By: #### H EMOCHROM, HAAB, HCBIGM, HCV RX PCR, HAABT, HBSAB, HBCAB, HBSAG, CERULOP, MITOM2, AFPTM, ALPHA PHEN, IGG, DYLAN, SMAB, L-K MICRO ####[facility] ,#### PT, CMP, KYLE, CBC ####[address] Hepatitis B virus core IgM a ntibody assayOrdered By: Derrek Rodgers on 11-05-2024 Hepatitis B Core IgM Antibody Negative Negative [facility] Comment on above: Performed at: [facility] Amber quan [address] [id number] Director: Stewart Palmer PhD, Phone: [phone] Hepatitis B virus core antib sarai assayOrdered By: Derrek Rodgers on 11-05-2024 Hepatitis B Core Total Antibody Negative Negative [facility] Hepatitis C virus IgG Ab [Pr esence] in Serum or Plasma by ImmunoassayOrdered By: Derrek Rodgers on 11-05-2024 HCV IgG IA Ql Hepatitis C virus Ig G Ab [Presence] in Serum or Plasma by Immunoassay Non Reactive [facility] Hereditary Hemochromatosis,Day Stovall 11-05-2024 Hereditary Hemochromatosis Comment Normal . [facility] Comment on above: Result Comment: Resu lt: c.845G>A (p.Fes884Bew) - Not Detected c.187C>G (p.Obj17Ago) - Not Detected c.193A>T (p.Oei96Wce) - Not Detected Not associated with increased risk to develop clinical symptoms of Hereditary Hemochromatosis. In symptomatic individuals, other causes of iron overload should be evaluated. See Additional Information and Comments. Additional Clinical Information: Hereditary hemochromatosis (HFE related) is an autosomal recessive iron storage disorder. Patients may have a genetic diagnosis of hereditary hemochromatosis and never show clinical symptoms. Clinical symptoms typically appear between 40 to 60 years in males and after menopause in females. Signs and symptoms may include organ damage, primarily in the liver, risk for hepatocellular carcinoma, diabetes, and heart disease due to iron accumulation. Life expectancy may be decreased in individuals who develop cirrhosis. Treatment for clinically symptomatic individuals may include therapeutic phlebotomy. Liver transplant may be used to treat end stage liver failure. For preventive care, monitoring for iron overload is recommended for patients who are homozygous for c.845G>A (p.Seo129Yue) and have yet to experience clinical symptoms. Comments: The most common HFE variants associated with hereditary hemochromatosis are c.845G>A (p.Zxx025Hbr), c.187C>G (p.Gdb23Ifn), c.193A>T (p.Woh57Aua). While patients homozygous for c.845G>A (p.Ytn922Lhu) are the most likely to present clinical symptoms, less than 10% develop clinically significant iron overload with tissue and organ damage. Genetic counseling is recommended to discuss the potential clinical implications of positive results, as well as recommendations for testing family members. Genetic Coordinators are available for health care providers to discuss results at [phone] Test Details: Three variants analyzed: c.845G>A (p.Gls713Jrt), commonly referred to as C282Y c.187C>G (p.Atj00Hcg), commonly referred to as H63D c.193A>T (p.Drv12Nla), commonly referred to as S65C Methods/Limitations: DNA Analysis of the HFE gene (NM_000410.4) was performed by PCR amplification followed by restriction enzyme digestion analyses. Results must be combined with clinical information for the most accurate interpretation. Molecular- based testing is highly accurate, but as in any laboratory test, diagnostic errors may occur. False positive or false negative results may occur for reasons that include genetic variants, blood transfusions, bone marrow transplantation, somatic or tissue-specific mosaicism, mislabeled samples, or erroneous representation of family relationships. This test was developed and its performance characteristics determined by [employer]. It has not been cleared or approved by the Food and Drug Administration. References: Rafa BR, Vel PC, Art KV, Wai LW, Nate ; [place] [employer]. Diagnosis and management of hemochromatosis: 2011 practice guideline by the [place] [employer] Liver [employer]. Hepatology. 2010;54(1):328-43. doi: 10.1002/hep.75259. PMID: 61578141; PMCID: XSZ6368410. Nigel G, Clay P, Fatoumata DW, Mervat H, Juan O, Alex S, Raulito I, Marv M, Jimbo S. [facility] best practice guidelines for the molecular genetic diagnosis of hereditary hemochromatosis (HH). Eur J Hum [place]. 2016 Oct;24(4):479-95. doi: 10.1038/ejhg.2015.128. Epub 2014Feb 02. PMID: 74672237; PMCID: LHN6288525. Performed By: #### H EMOCHROM, HAAB, HCBIGM, HCV RX PCR, HAABT, HBSAB, HBCAB, HBSAG, CERULOP, MITOM2, AFPTM, ALPHA PHEN, IGG, DYLAN, SMAB, L-K MICRO #### [facility] , #### PT, CMP, KYLE, CBC #### [address] Reviewed by: Comment Normal . [facility] Comment on above: Result Comment: Tech nical Component performed at [facility] RTP Professional Component performed by: Richa Cuba, Ph.D., [facility] Director, Molecular Genetics [address] [place] [address] [place] [address] Performed at: - [facility] RTP [address] [facility], [place] [id number] Developmental Behavioral Physician: Daryl L[facility], Phone: [phone] PERFORMED BY: [place] [address] PATHOLOGIST OXYACETYLENE BURNER LEANDRA WALSH M.D. Performed By: #### H EMOCHROM, HAAB, HCBIGM, HCV RX PCR, HAABT, HBSAB, HBCAB, HBSAG, CERULOP, MITOM2, AFPTM, ALPHA PHEN, IGG, DYLAN, SMAB, L-K MICRO #### [facility] , #### PT, CMP, KYLE, CBC #### [address] INR in Platelet poor plasma by Coagulation assayOrdered By: Derrek Rodgers on 11-05-2024 INR Coag (PPP) [Relative time] INR in Platelet poor plasma by Coagulation assay [facility] Comment on above: INR Therapeutic Rang e A) Pre- and Peroperative OAT started two weeks before surgery. NOT HIP SURGERY: 1.5 - 2.5 HIP SURGERY: 2 - 3B) Primary and secondary prevention of venous THROMBOSIS: 2 - 3C) Active venous thrombosis, pulmonary embolismand prevention of recurrent venous thrombosis: 2 - 3D) Prevention of arterial thromboembolismincluding patients with mechanical heart valves: 3 - 4.5 Immunoglobulin Goran 5 Immunoglobulin G 1263 mg/dL Normal 603-1613 [facility] Comment on above: Result Comment: Perf ormed at: - [facility] [id number] Developmental Behavioral Physician: Stewart Palmer PhD, Phone: [phone] Performed By: #### H EMOCHROM, HAAB, HCBIGM, HCV RX PCR, HAABT, HBSAB, HBCAB, HBSAG, CERULOP, MITOM2, AFPTM, ALPHA PHEN, IGG, DYLAN, SMAB, L-K MICRO ####[facility] ,#### PT, CMP, KYLE, CBC ####[facility] [id number] Leukocytes [#/volume] correc adrián for nucleated erythrocytes in Blood by Automated counOrdered By: Imad Asaad on 11-05-2024 WBC corrected for nucl RBC Auto (Bld) [#/Vol] Leukocytes [#/volume] corrected for nucleated erythrocytes in Blood by Automated coun 4.1-10.5 [facility] Liver-Kidney Microsomal Abon 11-05-2024 Liver-Kidney Microsomal Ab <1.0 Normal 0.0-20.0 [facility] Comment on above: Result Comment: Nega tive 0.0 - 20.0 Equivocal 20.1 - 24.9 Positive >24.9 LKM type 1 antibodies are detected in patients with autoimmune hepatitis type 2 and in up to 8% of patients with chronic HCV infection. Performed at: [facility] [place] [id number] Developmental Behavioral Physician: Stewart Palmer PhD, Phone: [phone] Performed By: #### H EMOCHROM, HAAB, HCBIGM, HCV RX PCR, HAABT, HBSAB, HBCAB, HBSAG, CERULOP, MITOM2, AFPTM, ALPHA PHEN, IGG, DYLAN, SMAB, L-K MICRO #### [facility] , #### PT, CMP, KYLE, CBC #### [facility] [address] Lymphocytes Auto (Bld) [#/Vo l]Ordered By: Imad Asaad on 11-05-2024 Lymphocytes (Bld) [#/Vol] Lymphocytes [#/volume] in Blood by Automated count Low 1.00-4.8 [facility] Lymphocytes/100 WBC Auto (Bl d)Ordered By: Imad Asaad on 11-05-2024 Lymphocytes/100 WBC (Bld) Lymphocytes/100 leukocytes in Blood by Automated count . [facility] MCH Auto (RBC) [Entitic mass ]Ordered By: Imad Asaad on 11-05-2024 MCH (RBC) [Entitic mass] MCH [Entitic mass] by Automated count 27.5-35.2 [facility] MCHC Auto (RBC) [Mass/Vol]Or dered By: Imad Asaad on 11-05-2024 MCHC (RBC) [Mass/Vol] MCHC [Mass/volume] by Automated count 32.5-35.6 [facility] MCV Auto (RBC) [Entitic vol] Ordered By: Imad Asaad on 11-05-2024 MCV (RBC) [Entitic vol] MCV [Entitic volume] by Automated count 83.5-101 [facility] Mitochondrial (M2) Antibodyo n 11-05-2024 Mitochondrial (M2) Antibody <20.0 Normal 0.0-20.0 [facility] Comment on above: Result Comment: Nega tive 0.0 - 20.0 Equivocal 20.1 - 24.9 Positive >24.9 Mitochondrial (M2) Antibodies are found in 90-96% of patients with primary biliary cirrhosis. Performed By: #### H EMOCHROM, HAAB, HCBIGM, HCV RX PCR, HAABT, HBSAB, HBCAB, HBSAG, CERULOP, MITOM2, AFPTM, ALPHA PHEN, IGG, DYALN, SMAB, L-K MICRO ####[facility] ,#### PT, CMP, KYLE, CBC ####[facility] [id number] [place] [id number] [facility] Monocytes Auto (Bld) [#/Vol] Ordered By: Imad Asaad on 11-05-2024 Monocytes (Bld) [#/Vol] Automated blood monocyte count 0.0-0.8 [facility] Monocytes/100 WBC Auto (Bld) Ordered By: Imad Asaad on 11-05-2024 Monocytes/100 WBC (Bld) Automated monocyte % . [facility] Neutrophils Auto (Bld) [#/Vo l]Ordered By: Imad Asaad on 11-05-2024 Neutrophils (Bld) [#/Vol] Neutrophils [#/volume] in Blood by Automated count 1.8-7.7 [facility] Neutrophils/100 WBC Auto (Bl d)Ordered By: Imad Asaad on 11-05-2024 Neutrophils/100 WBC (Bld) Automated neutrophil % . [facility] No Panel InformationOrdered By: Imad Asaad on 11-05-2024 Estimated GFR (CKD-EPI) > 60.0 mL/Min [facility] Hemochromatosis Note Comment . [facility] Comment on above: Technical Component performed at [facility] RTPProfessional Component performed by:Richa Cuba, Ph.D., FACMGDirector, Molecular [address]fb[address]le[address] [facility] [place] [address]Nayqxfrkk at: - [facility] AAE[address] [place], [place] [id number] Director: Daryl L[facility], Phone: [phone] Hepatitis C Interpretation Comment . [facility] Comment on above: Not infected with HC V unless early or acute infection issuspected (which may be delayed in an immunocompromisedindividual), or other evidence exists to indicate HCVinfection. Pharmacy Creatinine Clearance (Chem N/A [facility] Nucleated erythrocytes [Pres ence] in Blood by Automated countOrdered By: Imad Asaad on 11-05-2024 Nucleated RBC Auto Ql (Bld) Nucleated erythrocytes [Presence] in Blood by Automated count 0-0.5 [facility] Platelet mean volume Auto (B ld) [Entitic vol]Ordered By: Imad Asaad on 11-05-2024 Platelet mean volume (Bld) [Entitic vol] Platelet mean volume [Entitic volume] in Blood by Automated count 6.6-10.1 [facility] Platelets Auto (Bld) [#/Vol] Ordered By: Imad Asaad on 11-05-2024 Platelets (Bld) [#/Vol] Platelets [#/volume] in Blood by Automated count 150-450 [facility] Potassium [Moles/volume] in Serum or PlasmaOrdered By: Imad Asaad on 11-05-2024 Potassium [Moles/Vol] Potassium [Moles/v olume] in Serum or Plasma 3.5-5.1 [facility] Protein [Mass/volume] in Ser um or PlasmaOrdered By: Imad Asaad on 11-05-2024 Protein [Mass/Vol] Protein [Mass/volume ] in Serum or Plasma Low 6.4-8.9 [facility] Prothrombin Time INRon 11-05 INR Coag (PPP) [Relative time] 1.2 {INR} Normal [facility] Comment on above: Result Comment: INR Therapeutic Range A) Pre- and Peroperative OAT started two weeks before surgery. NOT HIP SURGERY: 1.5 - 2.5 HIP SURGERY: 2 - 3 B) Primary and secondary prevention of venous THROMBOSIS: 2 - 3 C) Active venous thrombosis, pulmonary embolism and prevention of recurrent venous thrombosis: 2 - 3 D) Prevention of arterial thromboembolism including patients with mechanical heart valves: 3 - 4.5 PERFORMED BY: [place] [address] PATHOLOGIST OXYACETYLENE BURNER LEANDRA WALSH M.D. Performed By: #### H EMOCHROM, HAAB, HCBIGM, HCV RX PCR, HAABT, HBSAB, HBCAB, HBSAG, CERULOP, MITOM2, AFPTM, ALPHA PHEN, IGG, DYLAN, SMAB, L-K MICRO #### [facility] , #### PT, CMP, KYLE, CBC #### [facility] [address] [place] [address] PT Coag (PPP) [Time] 13.4 s High 9.0-12.9 [facility] Comment on above: Result Comment: A he matocrit value greater than 55% may lead to inaccurate results in coagulation testing. Patients having hematocrit values >55% require a special collection tube for coagulation studies. Please contact the laboratory at [phone] for redraw instructions. Performed By: #### H EMOCHROM, HAAB, HCBIGM, HCV RX PCR, HAABT, HBSAB, HBCAB, HBSAG, CERULOP, MITOM2, AFPTM, ALPHA PHEN, IGG, DYLAN, SMAB, L-K MICRO #### [facility] , #### PT, CMP, KYLE, CBC #### [facility] [address] [place] [address] Prothrombin time (PT)Ordered By: Derrek Rodgers on 11-05-2024 PT Coag (PPP) [Time] Prothrombin time (PT) High 9.0- 12.9 [facility] Comment on above: A hematocrit value g reater than 55% may lead to inaccurate results in coagulation testing. Patients having hematocrit values >55% require a special collection tube for coagulation studies. Please contact the laboratory at [phone] for redraw instructions. RBC Auto (Bld) [#/Vol]Ordere d By: Immatthew Rodgers on 11-05-2024 RBC (Bld) [#/Vol] Erythrocytes [#/volu me] in Blood by Automated count Low 3.90-5.60 [facility] Serum hepatitis B virus surf jaimie antibody detectionOrdered By: Imad Ana Maria on 11-05-2024 HBV surface Ab Ql (S) Hepatitis B virus surface Ab [Presence] in Serum . [facility] Comment on above: Non Reactive: Not im mune to HBV infection. Equivocal: Unable to determine if anti-HBs is present at levels consistent with immunity. Reactive: Anti-HBs concentration detected at greater than 10 mIU/mL. Individual is considered to be immune to infection with HBV. Serum homogeneous pattern an tinuclear antibody (DYLAN) titerOrdered By: Imad Ana Maria on 11-05-2024 Homogenous nuclear Ab pattern (S) [Titer] Serum homogeneous pattern antinuclear antibody (DYLAN) titer [facility] Serum mitochondria M2 IgG an tibody assay (units/volume)Ordered By: Imad Ana Maria on 11-05-2024 Mitochondria M2 IgG Qn (S) Serum mitochondria M2 IgG antibody assay (units/volume) 0.0-20.0 [facility] Comment on above: Negative 0.0 - 20.0 Equivocal 20.1 - 24.9 Positive >24.9Mitochondrial (M2) Antibodies are found in 90-96% ofpatients with primary biliary cirrhosis. Serum nuclear antibody titer Ordered By: Imad Ana Maria on 11-05-2024 Nuclear Ab (S) [Titer] Serum nuclear ant ibody titer . [facility] Comment on above: Negative <1:80 Borde rline 1:80 Positive >1:80ICAP nomenclature: AC-0For more information about Hep-2 cell patterns useANApatterns.org, the official website for theInternational Consensus on Antinuclear Antibody (DYLAN)Patterns (ICAP).Performed at: [address], [place] [id number] Director: Stewart Palmer PhD, Phone: [phone] Serum or plasma IgG measurem ent (mass/volume)Ordered By: Derrek Rodgers on 11-05-2024 IgG [Mass/Vol] IgG [Mass/volume] in Serum or Plasma 600-0624 [facility] Comment on above: Performed at: CB - [facility] [address] [place], [place] [id number] Director: Stewart Palmer PhD, Phone: [phone] Serum or plasma albumin/glob ulin mass ratioOrdered By: Derrek Rodgers on 11-05-2024 Albumin/Globulin [Mass ratio] Serum or plasma albumin/globulin mass ratio [facility] Serum or plasma alpha 1 anti trypsin measurement (mass/volume)Ordered By: Derrek Rodgers on 11-05-2024 Alpha 1 antitrypsin [Mass/Vol] Serum jnarv-3-mrzmhlxwaml measurement 101-187 [facility] Serum or plasma alpha 1 anti trypsin phenotyping identification by immunofixationOrdered By: Derrek Rodgers on 11-05-2024 Alpha 1 antitrypsin phenotyping Immunofixation Nom Serum or plasma alpha 1 antitrypsin phenotyping identification by immunofixation . [facility] Comment on above: MM Phenotype is co nsidered to be normal , producingnormal serum levels of ugbpm-5-bhxzzmtj inhibitor andnot associated with clinical disease. Associated P4Juzuvy serum levels in other phenotypes and theirincidence in the general population are shown in thetable below.Phenotype Population % function A-1-AT Conc.* Incidence % compared to MM (Typical Range) MM 86.5% 100% (96 - 189) MS 8.0% 86% (83 - 161) MZ 3.9% 61% (60 - 111) FM 0.4% 100% (93 - 191) SZ 0.3% 41% (42 - 75) SS 0.1% 64% (62 - 119) ZZ 0.05% 19% (16 - 38) FS 0.05% 70% (70 - 128) FZ Unknown 46% (44 - 88) FF Unknown Unknown*A-1-AT concentration in the homozygous MM phenotype is taken as the reference normal. Percent deficiency in each phenotype is reported relative to this reference. Ranges used to confirm phenotype.Performed at: [address] [id number] Director: Stewart Palmer PhD, Phone: [phone] at: [facility] [place], [place] [id number] Director: Beto Vincent MD, Phone: [phone] Serum or plasma phaal-4-pxga protein tumor marker measurement (mass/volume)Ordered By: Derrek Rodgers on 11-05-2024 AFP.tumor marker [Mass/Vol] Serum or plasma gyszy-8-pspdedkuizc tumor marker measurement (mass/volume) High 0.0-8.4 [facility] Comment on above: [facility] El ectrochemiluminescence Immunoassay(ECLIA)Values obtained with different assay methods or kits cannotbe used interchangeably. Results cannot be interpreted asabsolute evidence of the presence or absence of malignantdisease.This test is not interpretable in females.Performed at: [address] [id number] Director: Stewart Palmer PhD, Phone: [phone] Serum or plasma anion gap de terminationOrdered By: Derrek Rodgers on 11-05-2024 Anion gap [Moles/Vol] Serum or plasma an ion gap determination 6.0-15.0 [facility] Serum or plasma ceruloplasmi n measurement (mass/volume)Ordered By: Derrek Rodgers on 11-05-2024 Ceruloplasmin [Mass/Vol] Serum or plasma ceruloplasmin measurement (mass/volume) 16.0-31.0 [facility] Comment on above: Performed at: - [facility] [address] [id number] Director: Stewart Palmer PhD, Phone: [phone] Serum or plasma hepatitis B virus surface antigen detection by immunoassayOrdered By: Derrek Rodgers on 11-05-2024 HBV surface Ag IA Ql Hepatitis B virus s urface Ag [Presence] in Serum or Plasma by Immunoassay Negative [facility] Serum or plasma lipoprotein a measurement (moles/volume)Ordered By: Derrek Rodgers on 11-05-2024 Lipoprotein a [Moles/Vol] Serum or plasma lipoprotein a measurement (moles/volume) 0.0-20.0 [facility] Comment on above: Negative 0.0 - 20.0 Equivocal 20.1 - 24.9 Positive >24.9LKM type 1 antibodies are detected in patients withautoimmune hepatitis type 2 and in up to 8% ofpatients with chronic HCV infection.Performed at: - [facility] [id number] Director: Stewart Palmer PhD, Phone: [phone] Smooth Muscle Antibodyon Smooth Muscle Antibody 4 Normal 0-19 [facility] Comment on above: Result Comment: Nega tive 0 - 19 Weak positive 20 - 30 Moderate to strong positive >30 Actin Antibodies are found in 52-85% of patients with autoimmune hepatitis or chronic active hepatitis and in 22% of patients with primary biliary cirrhosis. Performed By: #### H EMOCHROM, HAAB, HCBIGM, HCV RX PCR, HAABT, HBSAB, HBCAB, HBSAG, CERULOP, MITOM2, AFPTM, ALPHA PHEN, IGG, DYLNA, SMAB, L-K MICRO ####[facility] ,#### PT, CMP, KYLE, CBC ####[facility] [address] Sodium [Moles/volume] in Ser um or PlasmaOrdered By: Imad Asaad on 11-05-2024 Sodium [Moles/Vol] Sodium [Moles/volume ] in Serum or Plasma Low 136-145 [facility] Urea nitrogen [Mass/volume] in Serum or PlasmaOrdered By: Imad Asaad on 11-05-2024 Urea nitrogen [Mass/Vol] Urea nitrogen [Mass/volume] in Serum or Plasma High 7-25 [facility] WBC Auto (Bld) [#/Vol]Ordere d By: Imad Asaad on 11-05-2024 WBC (Bld) [#/Vol] Leukocytes [#/volume ] in Blood by Automated count 4.1-10.5 [facility] X-ray reportOrdered By: Wally Noland on 11-02-2024 Study report [facility] [address] [place] [address] XRay Report Signed Patient: Gerson Penn MR#: [id number] : 1955 Acct:[id number] Age/Sex: 68 / M ADM Date: 5 [place] [facility] [place]: Type: REG CLI Attending Dr: Geoffrey Ibrahim DO Copies to: Geoffrey Ibrahim DO~ Ordering Provider: Geoffrey Ibrahim DO Date of Service: 11/02/24 XR/XR elbow LT 2V: S52.122A - Displaced fracture of head of left radius, ini... LEFT ELBOW - 2 views CLINICAL HISTORY: Left radial head arthroplasty. COMPARISON: Left elbow 10/07/2024 FINDINGS: No hardware complication. Soft tissue swelling is present. Degenerative changes involving the left elbow. XR/XR elbow LT 2V IMPRESSION: NO HARDWARE COMPLICATION. Impression dictated by: Gage Noland Jr., DBrandenOBranden11/02/2024 2:57 PM Dictation Location: [place] [address] Transcribed By: [facility] 11/02/24 1457 Dictated By: Gage Noland Jr, DO 11/02/24 1456 Signed By: 11/02/24 1457 [facility] XR elbow LT 2Von 11-02-2024 XR elbow LT 2V [facility] [address] [place] [address] XRay Report Signed Patient: Gerson Penn MR#: [id number] : 1955 Acct:[id number] Age/Sex: 68 / M ADM Date: 11/02/24 [place] [facility] [place]: Type: REG CLI Attending Dr: Geoffrey Ibrahim DO Copies to: Geoffrey Ibrahim DO Ordering Provider: Geoffrey Ibrahim DO Date of Service: 11/02/24 XR/XR elbow LT 2V: S52.122A - Displaced fracture of head of left radius, ini... LEFT ELBOW - 2 views CLINICAL HISTORY: Left radial head arthroplasty. COMPARISON: Left elbow 10/07/2024 FINDINGS: No hardware complication. Soft tissue swelling is present. Degenerative changes involving the left elbow. XR/XR elbow LT 2V IMPRESSION: NO HARDWARE COMPLICATION. Impression dictated by: Gage Noland Jr. DRachid11/02/2024 2:57 PM Dictation Location: [place] [address] Transcribed By: [facility] 11/02/24 1457 Dictated By: Gage Noland Jr, DO 11/02/24 1456 Signed By: 11/02/24 1457 Normal [facility] Urine Cultureon 10-20-2024 Bacteria identified Cx Nom (U) ORGANISM: Enterobacter cloacae complex (O:ENTCLOCPLX) Cochrane Count >100,000 Aerobic LACHELLE Charge (NMIC56) SUSCEPTIBILITY ORGANISM: O:ENTCLOCPLX ANTIBIOTIC INTERPRETATION LACHELLE Amikacin S <16 Aztreonam IB <4 Cefepime S <2 Ceftazidime IB 4 Ceftriaxone R 8 Cefuroxime R >16 Ciprofloxacin S <0.25 Ertapenem S <0.5 Gentamicin S <2 Levofloxacin S <0.5 Meropenem S <1 Meropenem/Vaborbactam S <2 Nitrofurantoin I 64 Piperacillin/Tazobactam IB <8 Tetracycline S <4 Tigecycline S <2 Tobramycin S <2 Trimethoprim/Sulfamethoxazo le S 06/16 S = SUSCEPTIBLE I = INTERMEDIATE R = RESISTANT BLANK = DATA NOT AVAILABLE, OR DRUG NOT ADVISABLE OR TESTED R* = RESISTANCE DUE TO EXTENDED SPECTRUM BETA-LACTAMASES ESBL = EXTENDED SPECTRUM BETA-LACTAMASE TFG = THYMIDINE-DEPENDENT STRAIN JASMIN = BETA-LACTAMASE POSITIVE IB = INDUCIBLE BETA-LACTAMASE. APPEARS IN PLACE OF 'S' WITH SPECIES KNOWN TO POSSESS INDUCIBLE BETA-LACTAMASES. POTENTIALLY THEY MAY BECOME RESISTANT TO ALL B-LACTAM DRUGS. PERFORMED BY: [address] [place] [address] PATHOLOGIST OXYACETYLENE BURNER LEANDRA WALSH M.D. Normal [facility] Comment on above: Performed By: #### H EMOCHROM, HAAB, HCBIGM, HCV RX PCR, HAABT, HBSAB, HBCAB, HBSAG, CERULOP, MITOM2, AFPTM, ALPHA PHEN, IGG, DYLAN, SMAB, L-K MICRO #### [facility] , #### PT, CMP, KYLE, CBC #### [facility] [address] Urine cultureOrdered By: Marisol Ren on 10-20-2024 Bacteria identified Cx Nom (U) Abnormal [facility] X-ray reportOrdered By: Steven Rock on 10-07-2024 Study report [facility] [address] [place] [address] XRay Report Signed Patient: Gerson Penn MR#: [id number] : 1955 Acct:[id number] Age/Sex: 68 / M ADM Date: 5 [place] [facility] [place] Room: Type: [facility] Attending Dr: Geoffrey Ibrahim DO Copies to: [...] Lamont Rock M.D.10/07/2024 2:30 PM Dictation Location: [place] [address] Transcribed By: GODFREY 10/07/24 1430 Dictated By: Lamont Rock MD 10/07/24 1420 Signed By: 10/07/24 1435 [facility] Work Phone: XR elbow LT 2Von 10-07-2024 XR elbow LT 2V [facility] [address] [place] [address] XRay Report Signed Patient: Gerson Penn MR#: [id number] : 1955 Acct:[id number] Age/Sex: 68 / M ADM Date: 10/07/24 [place] [facility] Room: Type: [facility] CLI Attending Dr: Geoffrey Ibrahim DO [...] Lamont Rock M.D.10/07/2024 2:30 PM Dictation Location: [place] [address] Transcribed By: [facility] 10/07/24 1430 Dictated By: Lamont Rock MD 10/07/24 1429 Signed By: 10/07/24 1430 Normal [facility] Glucose Glucometer (dC) [M ass/Vol]Ordered By: Geoffrey Ibrahim on 09-22-2024 Glucose [Mass/Vol] Capillary blood gluc ose measurement by glucometer (mass/volume) [facility] Comment on above: Random Glucose Refer ence Range is dependent on time and content of last meal. Glucose of more than 200 mg/dL in a nonstressed, ambulatory subject supports the diagnosis of Diabetes Mellitus. Glucose Poct Glucometerson 0 09-22-2024 Commemt1 Glu2: Cleaned Meter Normal [facility] Comment on above: Result Comment: PERF ORMED BY: [facility] [address] [place] [address] PATHOLOGIST OXYACETYLENE BURNER LEANDRA WALSH M.D. Performed By: #### H EMOCHROM, HAAB, HCBIGM, HCV RX PCR, HAABT, HBSAB, HBCAB, HBSAG, CERULOP, MITOM2, AFPTM, ALPHA PHEN, IGG, DYLAN, SMAB, L-K MICRO #### [facility] , #### PT, CMP, KYLE, CBC #### [address] Glucose [Mass/Vol] 115 mg/dL Normal [facility] Comment on above: Result Comment: [place] Glucose Reference Range is dependent on time and content of last meal. Glucose of more than 200 mg/dL in a nonstressed, ambulatory subject supports the diagnosis of Diabetes Mellitus. Performed By: #### H EMOCHROM, HAAB, HCBIGM, HCV RX PCR, HAABT, HBSAB, HBCAB, HBSAG, CERULOP, MITOM2, AFPTM, ALPHA PHEN, IGG, DYLAN, SMAB, L-K MICRO #### [facility] , #### PT, CMP, KYLE, CBC #### [address] Glucose [Mass/Vol] 126 mg/dL Normal [facility] Comment on above: Result Comment: [place] [facility] Glucose Reference Range is dependent on time and content of last meal. Glucose of more than 200 mg/dL in a nonstressed, ambulatory subject supports the diagnosis of Diabetes Mellitus. PERFORMED BY: [place] [address] PATHOLOGIST OXYACETYLENE BURNER LEANDRA WALSH M.D. Performed By: #### H EMOCHROM, HAAB, HCBIGM, HCV RX PCR, HAABT, HBSAB, HBCAB, HBSAG, CERULOP, MITOM2, AFPTM, ALPHA PHEN, IGG, DYLAN, SMAB, L-K MICRO #### [facility] , #### PT, CMP, KYLE, CBC #### [address] [place] 09-22-2024 L ------- Specimen: [id number] Received: 09/22/24 Status: ARYA Vargas Num: [id number] Spec Type: Surgical Subm Dr: Geoffrey Ibrahim DO Tissues: A Joint/Knee (LEFT ARM BONE AND TISSUE) Procedures: HE/2, Gross/Micro L4, Decalcification Age/ Patient Sex Location Account Attending Physician Gerson Penn 68/M [place] [id number] Geoffrey Ibrahim, DO SPEC NUM: [id number] RECD: 09/22/24 STATUS: ARYA VARGAS NUM: [id number] NAE: 09/22/[address]: Geoffrey Ibrahim DO ENTERED: 09/22/24 [facility] : SPEC TYPE: Surgical DEPT: S ORDERED: HE/2, Gross/Micro [...] medullary bone is cordero, firm and uniform. 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 (2, ss, [id number])JACK Specimen: [id number] Received: 09/22/24 Status: ARYA Vargas Num: [id number] Spec Type: Surgical Subm Dr: Geoffrey Ibrahim DO Tissues: A Joint/Knee (LEFT ARM BONE AND TISSUE) Procedures: HE/2, Gross/Micro L4, Decalcification Patient: Gerson Penn [id number] (Continued) Specimen: [id number] Received: 09/22/24 (Continued) Signed (signature on file) Lino Coffman MD 09/25/24 1821 Specimen: [id number] Received: 09/22/24 Status: ARYA Vargas Num: [id number] Spec Type: Surgical Subm Dr: Geoffrey Ibrahim, Tissues: A Joint/Knee (LEFT ARM BONE AND TISSUE) Procedures: HE/2, Gross/Micro L4, Decalcification Patient: Gerson Penn [id number] (Continued) Specimen: [id number] Received: 09/22/24 (Continued) Microscopic Description Microscopic examinations are performed supporting the above interpretation CPT Codes [id number] Specimen: [id number] Received: 09/22/24 Status: ARYA Vargas Num: [id number] Spec Type: Surgical Subm Dr: Geoffrey Ibrahim DO Tissues: A Joint/Knee (LEFT ARM BONE AND TISSUE) Procedures: HE/2, Gross/Micro L4, Decalcification Patient: Gerson Penn [id number] (Continued) Signed (signature on file) Lino Coffman MD 09/25/24 1821 Normal [facility] No Panel InformationOrdered By: Geoffrey Ibrahim on 09-22-2024 Bedside Glucose Comment Glu2: cleaned meter [facility] XR elbow LT min 3V*on 2024 XR elbow LT min 3V* [place] [address] XRay Report Signed Patient: Gerson Penn MR#: [id number] : 1955 Acct:[id number] Age/Sex: 68 / M ADM Date: 09/22/24 Loc: [place] Room: Type: [facility] Attending Dr: Geoffrey Ibrahim DO Copies to: [...] Clark Méndez M.D.09/22/2024 5:18 PM Dictation Location: [place] [address] Transcribed By: GODFREY 09/22/241717 Dictated By: Clark Méndez II, MD 09/22/241716 Signed By: 09/22/241717 Normal [facility] Alanine aminotransferase [En zymatic activity/volume] in Serum or PlasmaOrdered By: Geoffrey Ibrahim on 09-21-2024 ALT [Catalytic activity/Vol] Alanine aminotransferase [Enzymatic activity/volume] in Serum or Plasma High 7-52 [facility] Albumin [Mass/volume] in Ser um or Plasma by Bromocresol green (BCG) dye binding methoOrdered By: Geoffrey Ibrahim on 09-21-2024 Albumin BCG dye [Mass/Vol] Albumin [Mass/volume] in Serum or Plasma by Bromocresol green (BCG) dye binding metho Low 3.5-5.7 [facility] Alkaline phosphatase [Enzyma tic activity/volume] in Serum or PlasmaOrdered By: Geoffrey Ibrahim on 09-21-2024 ALP [Catalytic activity/Vol] Alkaline phosphatase [Enzymatic activity/volume] in Serum or Plasma High 34-104 [facility] Appearance of UrineOrdered B y: Geoffrey Ibrahim on 09-21-2024 Appearance (U) Urine appearance [facility] Aspartate aminotransferase [ Enzymatic activity/volume] in Serum or PlasmaOrdered By: Geoffrey Ibrahim on 09-21-2024 AST [Catalytic activity/Vol] Aspartate aminotransferase [Enzymatic activity/volume] in Serum or Plasma High 13-39 [facility] Basophils Auto (Bld) [#/Vol] Ordered By: Geoffrey Ibrahim on 09-21-2024 Basophils (Bld) [#/Vol] Automated basophil count [facility] Basophils/100 WBC Auto (Bld) Ordered By: Geoffrey Ibrahim on 09-21-2024 Basophils/100 WBC (Bld) Automated basophil % [facility] Bilirubin Test strip Ql (U)O rdered By: Geoffrey Ibrahim on 09-21-2024 Bilirubin Ql (U) Bilirubin.total [Pre sence] in Urine by Test strip Negative [facility] Bilirubin.total [Mass/volume ] in Serum or PlasmaOrdered By: Geoffrey Ibrahim on 09-21-2024 Bilirubin [Mass/Vol] Bilirubin.total [Mass/volume] in Serum or Plasma High 0.3-1.0 [facility] Comment on above: Samples from patient s [...] [Mass/volume] in Blood Estimated from glycated hemoglobin [facility] CMP with reflex to A1Con Albumin [Mass/Vol] 2.6 g/dL Low 3.5-5.7 [facility] Comment on above: Performed By: #### H EMOCHROM, HAAB, HCBIGM, HCV RX PCR, HAABT, HBSAB, HBCAB, HBSAG, CERULOP, MITOM2, AFPTM, ALPHA PHEN, IGG, DYLAN, SMAB, L-K MICRO #### [facility] , #### PT, CMP, KYLE, CBC #### [facility] [address] Albumin/Globulin [Mass ratio] 0.7 {ratio} Normal [facility] Comment on above: Performed By: #### H EMOCHROM, HAAB, HCBIGM, HCV RX PCR, HAABT, HBSAB, HBCAB, HBSAG, CERULOP, MITOM2, AFPTM, ALPHA PHEN, IGG, DYLAN, SMAB, L-K MICRO #### [facility] , #### PT, CMP, KYLE, CBC #### [facility] [address] [place] [address] ALP [Catalytic activity/Vol] 289 U/L High 34-104 [facility] Comment on above: Result Comment: PERF ORMED BY: [place] [address] PATHOLOGIST OXYACETYLENE BURNER LEANDRA WALSH M.D. Performed By: #### H EMOCHROM, HAAB, HCBIGM, HCV RX PCR, HAABT, HBSAB, HBCAB, HBSAG, CERULOP, MITOM2, AFPTM, ALPHA PHEN, IGG, DYLAN, SMAB, L-K MICRO #### [facility] , #### PT, CMP, KYLE, CBC #### [address] ALT [Catalytic activity/Vol] 70 U/L High 7-52 [facility] Comment on above: Performed By: #### H EMOCHROM, HAAB, HCBIGM, HCV RX PCR, HAABT, HBSAB, HBCAB, HBSAG, CERULOP, MITOM2, AFPTM, ALPHA PHEN, IGG, DYLAN, SMAB, L-K MICRO #### [facility] , #### PT, CMP, KYLE, CBC #### [address] Anion gap [Moles/Vol] 10.6 mmol/L Normal 6.0-15.0 [facility] Comment on above: Performed By: #### H EMOCHROM, HAAB, HCBIGM, HCV RX PCR, HAABT, HBSAB, HBCAB, HBSAG, CERULOP, MITOM2, AFPTM, ALPHA PHEN, IGG, DYLAN, SMAB, L-K MICRO #### [facility] , #### PT, CMP, KYLE, CBC #### [address] AST [Catalytic activity/Vol] 143 U/L High 13-39 [facility] Comment on above: Performed By: #### H EMOCHROM, HAAB, HCBIGM, HCV RX PCR, HAABT, HBSAB, HBCAB, HBSAG, CERULOP, MITOM2, AFPTM, ALPHA PHEN, IGG, DYLAN, SMAB, L-K MICRO #### [facility] , #### PT, CMP, KYLE, CBC #### [address] Bilirubin [Mass/Vol] 1.8 mg/dL High 0.3-1.0 [facility] Comment on above: Result Comment: Samp les from patients who have taken Naproxen have shown spurious elevation in Total Bilirubin levels. A metabolite of Naproxen, O-desmethylnaproxen, has been shown to interfere with the Jendrassik-Grof method for measuring Total Bilirubin. Performed By: #### H EMOCHROM, HAAB, HCBIGM, HCV RX PCR, HAABT, HBSAB, HBCAB, HBSAG, CERULOP, MITOM2, AFPTM, ALPHA PHEN, IGG, DYLAN, SMAB, L-K MICRO #### [facility] , #### PT, CMP, KYLE, CBC #### [address] Calcium [Mass/Vol] 8.9 mg/dL Normal 8.6-10.3 [facility] Comment on above: Performed By: #### H EMOCHROM, HAAB, HCBIGM, HCV RX PCR, HAABT, HBSAB, HBCAB, HBSAG, CERULOP, MITOM2, AFPTM, ALPHA PHEN, IGG, DYLAN, SMAB, L-K MICRO #### [facility] , #### PT, CMP, KYLE, CBC #### [address] Chloride [Moles/Vol] 102 mmol/L Normal 98-107 [facility] Comment on above: Performed By: #### H EMOCHROM, HAAB, HCBIGM, HCV RX PCR, HAABT, HBSAB, HBCAB, HBSAG, CERULOP, MITOM2, AFPTM, ALPHA PHEN, IGG, DYLAN, SMAB, L-K MICRO #### [facility] , #### PT, CMP, KYLE, CBC #### [address] CO2 [Moles/Vol] 26.0 mmol/L Normal 21.0-31.0 [facility] Comment on above: Performed By: #### H EMOCHROM, HAAB, HCBIGM, HCV RX PCR, HAABT, HBSAB, HBCAB, HBSAG, CERULOP, MITOM2, AFPTM, ALPHA PHEN, IGG, DYLAN, SMAB, L-K MICRO #### [facility] , #### PT, CMP, KYLE, CBC #### [address] Creatinine [Mass/Vol] 1.24 mg/dL Normal 0.70-1.30 [facility] Comment on above: Performed By: #### H EMOCHROM, HAAB, HCBIGM, HCV RX PCR, HAABT, HBSAB, HBCAB, HBSAG, CERULOP, MITOM2, AFPTM, ALPHA PHEN, IGG, DYLAN, SMAB, L-K MICRO #### [facility] , #### PT, CMP, KYLE, CBC #### [address] GFR/1.73 sq M.predicted MDRD (S/P/Bld) [Vol rate/Area] mL/min/{1.73_m2} Normal [facility] Comment on above: Performed By: #### H EMOCHROM, HAAB, HCBIGM, HCV RX PCR, HAABT, HBSAB, HBCAB, HBSAG, CERULOP, MITOM2, AFPTM, ALPHA PHEN, IGG, DYLAN, SMAB, L-K MICRO #### [facility] , #### PT, CMP, KYLE, CBC #### [address] Globulin (S) [Mass/Vol] 3.5 g/dL Normal [facility] Comment on above: Performed By: #### H EMOCHROM, HAAB, HCBIGM, HCV RX PCR, HAABT, HBSAB, HBCAB, HBSAG, CERULOP, MITOM2, AFPTM, ALPHA PHEN, IGG, DYLAN, SMAB, L-K MICRO #### [facility] , #### PT, CMP, KYLE, CBC #### [address] Glucose [Mass/Vol] 114 mg/dL High 70-100 [facility] Comment on above: Result Comment: ADA recommended reference range Performed By: #### H EMOCHROM, HAAB, HCBIGM, HCV RX PCR, HAABT, HBSAB, HBCAB, HBSAG, CERULOP, MITOM2, AFPTM, ALPHA PHEN, IGG, DYLAN, SMAB, L-K MICRO #### [facility] , #### PT, CMP, KYLE, CBC #### [address] Potassium [Moles/Vol] 4.6 mmol/L Normal 3.5-5.1 [facility] Comment on above: Performed By: #### H EMOCHROM, HAAB, HCBIGM, HCV RX PCR, HAABT, HBSAB, HBCAB, HBSAG, CERULOP, MITOM2, AFPTM, ALPHA PHEN, IGG, DYLAN, SMAB, L-K MICRO #### [facility] , #### PT, CMP, KYLE, CBC #### [address] Protein [Mass/Vol] 6.1 g/dL Low 6.4-8.9 [facility] Comment on above: Performed By: #### H EMOCHROM, HAAB, HCBIGM, HCV RX PCR, HAABT, HBSAB, HBCAB, HBSAG, CERULOP, MITOM2, AFPTM, ALPHA PHEN, IGG, DYLAN, SMAB, L-K MICRO #### [facility] , #### PT, CMP, KYLE, CBC #### [address] Sodium [Moles/Vol] 134 mmol/L Low 136-145 [facility] Comment on above: Performed By: #### H EMOCHROM, HAAB, HCBIGM, HCV RX PCR, HAABT, HBSAB, HBCAB, HBSAG, CERULOP, MITOM2, AFPTM, ALPHA PHEN, IGG, DYLAN, SMAB, L-K MICRO #### [facility] , #### PT, CMP, KYLE, CBC #### [address] Urea nitrogen [Mass/Vol] 32 mg/dL High 7-25 [facility] Comment on above: Performed By: #### H EMOCHROM, HAAB, HCBIGM, HCV RX PCR, HAABT, HBSAB, HBCAB, HBSAG, CERULOP, MITOM2, AFPTM, ALPHA PHEN, IGG, DYLAN, SMAB, L-K MICRO #### [facility] , #### PT, CMP, KYLE, CBC #### [facility] [address] Calcium [Mass/volume] in Ser um or PlasmaOrdered By: Geoffrey Ibrahim on 09-21-2024 Calcium [Mass/Vol] Calcium [Mass/volume ] in Serum or Plasma 8.6-10.3 [facility] Carbon dioxide, total [Moles /volume] in Serum or PlasmaOrdered By: Geoffrey Ibrahim on 09-21-2024 CO2 [Moles/Vol] Carbon dioxide, tota l [Moles/volume] in Serum or Plasma 21.0-31.0 [facility] Chloride [Moles/volume] in S saud or PlasmaOrdered By: Geoffrey Ibrahim on 09-21-2024 Chloride [Moles/Vol] Chloride [Moles/vol ume] in Serum or Plasma 98-107 [facility] Color Auto (U)Ordered By: Claudia Ibrahim on 09-21-2024 Color (U) Color of Urine by Auto Yellow [facility] Creatinine [Mass/volume] in Serum or PlasmaOrdered By: Geoffrey bIrahim on 09-21-2024 Creatinine [Mass/Vol] Creatinine [Mass/v olume] in Serum or Plasma 0.70-1.30 [facility] Diff and CBCon 09-21-2024 Erythrocyte distribution width (RBC) [Ratio] 15.5 % High 12.0-14.8 [facility] Comment on above: Performed By: #### H EMOCHROM, HAAB, HCBIGM, HCV RX PCR, HAABT, HBSAB, HBCAB, HBSAG, CERULOP, MITOM2, AFPTM, ALPHA PHEN, IGG, DYLAN, SMAB, L-K MICRO #### [facility] , #### PT, CMP, KYLE, CBC #### [address] Hematocrit (Bld) [Volume fraction] 42.1 % Normal 38.8-50.0 [facility] Comment on above: Performed By: #### H EMOCHROM, HAAB, HCBIGM, HCV RX PCR, HAABT, HBSAB, HBCAB, HBSAG, CERULOP, MITOM2, AFPTM, ALPHA PHEN, IGG, DYLAN, SMAB, L-K MICRO #### [facility] , #### PT, CMP, KYLE, CBC #### [address] Hemoglobin (Bld) [Mass/Vol] 14.7 g/dL Normal 13.0-17.0 [facility] Comment on above: Performed By: #### H EMOCHROM, HAAB, HCBIGM, HCV RX PCR, HAABT, HBSAB, HBCAB, HBSAG, CERULOP, MITOM2, AFPTM, ALPHA PHEN, IGG, DYLAN, SMAB, L-K MICRO #### [facility] , #### PT, CMP, KYLE, CBC #### [address] Lymphocytes/100 WBC (Bld) 4 % Low 18-42 [facility] Comment on above: Performed By: #### H EMOCHROM, HAAB, HCBIGM, HCV RX PCR, HAABT, HBSAB, HBCAB, HBSAG, CERULOP, MITOM2, AFPTM, ALPHA PHEN, IGG, DYLAN, SMAB, L-K MICRO #### [facility] , #### PT, CMP, KYLE, CBC #### [address] MCH (RBC) [Entitic mass] 33.4 pg Normal 27.5-35.2 [facility] Comment on above: Performed By: #### H EMOCHROM, HAAB, HCBIGM, HCV RX PCR, HAABT, HBSAB, HBCAB, HBSAG, CERULOP, MITOM2, AFPTM, ALPHA PHEN, IGG, DYLAN, SMAB, L-K MICRO #### [facility] , #### PT, CMP, KYLE, CBC #### [address] MCV (RBC) [Entitic vol] 95.4 fL Normal 83.5-101 [facility] Comment on above: Performed By: #### H EMOCHROM, HAAB, HCBIGM, HCV RX PCR, HAABT, HBSAB, HBCAB, HBSAG, CERULOP, MITOM2, AFPTM, ALPHA PHEN, IGG, DYLAN, SMAB, L-K MICRO #### [facility] , #### PT, CMP, KYLE, CBC #### [address] Mean Corpuscular HGB Conc 35.0 g/dL Normal 32.5-35.6 [facility] Comment on above: Performed By: #### H EMOCHROM, HAAB, HCBIGM, HCV RX PCR, HAABT, HBSAB, HBCAB, HBSAG, CERULOP, MITOM2, AFPTM, ALPHA PHEN, IGG, DYLAN, SMAB, L-K MICRO #### [facility] , #### PT, CMP, KYLE, CBC #### [address] Monocytes/100 WBC (Bld) 9 % Normal 2-11 [facility] Comment on above: Performed By: #### H EMOCHROM, HAAB, HCBIGM, HCV RX PCR, HAABT, HBSAB, HBCAB, HBSAG, CERULOP, MITOM2, AFPTM, ALPHA PHEN, IGG, DYALN, SMAB, L-K MICRO #### [facility] , #### PT, CMP, KYLE, CBC #### [address] Platelet Estimate Normal Normal Normal [facility] Comment on above: Performed By: #### H EMOCHROM, HAAB, HCBIGM, HCV RX PCR, HAABT, HBSAB, HBCAB, HBSAG, CERULOP, MITOM2, AFPTM, ALPHA PHEN, IGG, DYLAN, SMAB, L-K MICRO #### [facility] , #### PT, CMP, KYLE, CBC #### [address] Platelet mean volume (Bld) [Entitic vol] 7.8 fL Normal 6.6-10.1 [facility] Comment on above: Performed By: #### H EMOCHROM, HAAB, HCBIGM, HCV RX PCR, HAABT, HBSAB, HBCAB, HBSAG, CERULOP, MITOM2, AFPTM, ALPHA PHEN, IGG, DYLAN, SMAB, L-K MICRO #### [facility] , #### PT, CMP, KYLE, CBC #### [address] Platelet Morphology Normal Normal Normal [facility] Comment on above: Result Comment: PERF ORMED BY: [place] [address] PATHOLOGIST OXYACETYLENE BURNER LEANDRA WALSH M.D. Performed By: #### H EMOCHROM, HAAB, HCBIGM, HCV RX PCR, HAABT, HBSAB, HBCAB, HBSAG, CERULOP, MITOM2, AFPTM, ALPHA PHEN, IGG, DYLAN, SMAB, L-K MICRO #### [facility] , #### PT, CMP, KYLE, CBC #### [address] Platelets (Bld) [#/Vol] 188 10*3/uL Normal 150-450 [facility] Comment on above: Performed By: #### H EMOCHROM, HAAB, HCBIGM, HCV RX PCR, HAABT, HBSAB, HBCAB, HBSAG, CERULOP, MITOM2, AFPTM, ALPHA PHEN, IGG, DYLAN, SMAB, L-K MICRO #### [facility] , #### PT, CMP, KYLE, CBC #### [address] RBC (Bld) [#/Vol] 4.42 10*6/uL Normal 3.90-5.60 [facility] Comment on above: Performed By: #### H EMOCHROM, HAAB, HCBIGM, HCV RX PCR, HAABT, HBSAB, HBCAB, HBSAG, CERULOP, MITOM2, AFPTM, ALPHA PHEN, IGG, DYLAN, SMAB, L-K MICRO #### [facility] , #### PT, CMP, KYLE, CBC #### [address] RBC morphology finding Nom (Bld) Normal Normal Normal [facility] Comment on above: Performed By: #### H EMOCHROM, HAAB, HCBIGM, HCV RX PCR, HAABT, HBSAB, HBCAB, HBSAG, CERULOP, MITOM2, AFPTM, ALPHA PHEN, IGG, DYLAN, SMAB, L-K MICRO #### [facility] , #### PT, CMP, KYLE, CBC #### [address] Segmented neutrophils/100 WBC (Bld) 87 % High 50-70 [facility] Comment on above: Performed By: #### H EMOCHROM, HAAB, HCBIGM, HCV RX PCR, HAABT, HBSAB, HBCAB, HBSAG, CERULOP, MITOM2, AFPTM, ALPHA PHEN, IGG, DYLAN, SMAB, L-K MICRO #### [facility] , #### PT, CMP, KYLE, CBC #### [address] WBC (Bld) [#/Vol] 5.4 10*3/uL Normal 4.1-10.5 [facility] Comment on above: Performed By: #### H EMOCHROM, HAAB, HCBIGM, HCV RX PCR, HAABT, HBSAB, HBCAB, HBSAG, CERULOP, MITOM2, AFPTM, ALPHA PHEN, IGG, DYLAN, SMAB, L-K MICRO #### [facility] , #### PT, CMP, KYLE, CBC #### [facility] [address] EBS A1C with Estimated Alberto rajput 09-21-2024 Glucose [Mass/Vol] 134 mg/dL Normal [facility] Comment on above: Result Comment: PERF ORMED BY: [place] [address] PATHOLOGIST OXYACETYLENE BURNER LEANDRA WALSH M.D. Performed By: #### H EMOCHROM, HAAB, HCBIGM, HCV RX PCR, HAABT, HBSAB, HBCAB, HBSAG, CERULOP, MITOM2, AFPTM, ALPHA PHEN, IGG, DYLAN, SMAB, L-K MICRO #### [facility] , #### PT, CMP, KYLE, CBC #### [address] ECG 12 lead ECGon 09-21-2024 ECG 12 lead ECG [facility] [place] [address] Electrocardiograph Report Signed Patient: Gerson Penn MR#: [id number] : 1955 Acct:[id number] Age/Sex: 68 / M ADM Date: 09/21/24 Loc: Room: Type: [facility] Attending Dr: Geoffrey Ibrahim DO Ordering Provider: [...] When compared with ECG of 04-Oct-2012 08:47, AR interval has decreased Confirmed by Taj Palm ([id number]) on 09/21/2024 8:57:00 AM Referred By: Electronically Signed By: Taj Palm Transcribed By: MUS Signed By Taj Palm MD 09/21/24 0857 Normal [facility] Eosinophils Auto (Bld) [#/Vo l]Ordered By: Geoffrey Ibrahim on 09-21-2024 Eosinophils (Bld) [#/Vol] Automated eosinophil count [facility] Eosinophils/100 WBC Auto (Bl d)Ordered By: Geoffrey Ibrahim on 09-21-2024 Eosinophils/100 WBC (Bld) Automated eosinophil % [facility] Erythrocyte distribution wid th Auto (RBC) [Ratio]Ordered By: Geoffrey Ibrahim on 09-21-2024 Erythrocyte distribution width (RBC) [Ratio] Erythrocyte distribution width [Ratio] by Automated count High 12.0-14.8 [facility] Erythrocyte morphology findi ng [Identifier] in BloodOrdered By: Geoffrey Ibrahim on 09-21-2024 RBC morphology finding Nom (Bld) RBC morphology Normal [facility] Globulin Calc (S) [Mass/Vol] Ordered By: Geoffrey Ibrahim on 09-21-2024 Globulin (S) [Mass/Vol] Serum globulin measurement by calculation (mass/volume) [facility] Glucose [Mass/volume] in Ser um or PlasmaOrdered By: Geoffrey Ibrahim on 09-21-2024 Glucose [Mass/Vol] Glucose [Mass/volume ] in Serum or Plasma High 70-100 [facility] Comment on above: ADA recommended refe rence range Glucose [Mass/volume] in Uri ne by Test stripOrdered By: Geoffrey Ibrahim on 09-21-2024 Glucose Test strip (U) [Mass/Vol] Glucose [Mass/volume] in Urine by Test strip Normal [facility] Hematocrit Auto (Bld) [Volum e fraction]Ordered By: Geoffrey Ibrahim on 09-21-2024 Hematocrit (Bld) [Volume fraction] Hematocrit [Volume Fraction] of Blood by Automated count 38.8-50.0 [facility] Hemoglobin A1c measurementOr dered By: Geoffrey Ibrahim on 09-21-2024 HbA1c (Bld) [Mass fraction] 6.3 % High 4.3-5.6 [facility] Comment on above: Increased risk for d iabetes: 5.7 - 6.4diabetes: >6.4glycemic control for adults with diabetes: <7.0 Result Comment: Incr eased risk for diabetes: 5.7 - 6.4 diabetes: >6.4 glycemic control for adults with diabetes: <7.0 Performed By: #### H EMOCHROM, HAAB, HCBIGM, HCV RX PCR, HAABT, HBSAB, HBCAB, HBSAG, CERULOP, MITOM2, AFPTM, ALPHA PHEN, IGG, DYLAN, SMAB, L-K MICRO #### [facility] , #### PT, CMP, KYLE, CBC #### [facility] [address] Hemoglobin Test strip Ql (U) Ordered By: Geoffrey Ibrahim on 09-21-2024 Hemoglobin Ql (U) Hemoglobin [Presence ] in Urine by Test strip Negative [facility] Hemoglobin [Mass/volume] in BloodOrdered By: Geoffrey Ibrahim on 09-21-2024 Hemoglobin (Bld) [Mass/Vol] Hemoglobin [Mass/volume] in Blood 13.0-17.0 [facility] Ketones Test strip Ql (U)Ord ered By: Geoffrey Ibrahim on 09-21-2024 Ketones Ql (U) Ketones [Presence] i n Urine by Test strip Negative [facility] Leukocyte esterase [Presence ] in Urine by Test stripOrdered By: Geoffrey Ibrahim on 09-21-2024 Leukocyte esterase Test strip Ql (U) Leukocyte esterase [Presence] in Urine by Test strip Negative [facility] Leukocytes [#/volume] correc adrián for nucleated erythrocytes in Blood by Automated counOrdered By: Geoffrey Ibrahim on 09-21-2024 WBC corrected for nucl RBC Auto (Bld) [#/Vol] Leukocytes [#/volume] corrected for nucleated erythrocytes in Blood by Automated coun 4.1-10.5 [facility] Lymphocytes Auto (Bld) [#/Vo l]Ordered By: Geoffrey Ibrahim on 09-21-2024 Lymphocytes (Bld) [#/Vol] Lymphocytes [#/volume] in Blood by Automated count [facility] Lymphocytes/100 WBC Auto (Bl d)Ordered By: Geoffrey Ibrahim on 09-21-2024 Lymphocytes/100 WBC (Bld) Lymphocytes/100 leukocytes in Blood by Automated count [facility] Lymphocytes/100 WBC Manual c nt (Bld)Ordered By: Geoffrey Ibrahim on 09-21-2024 Lymphocytes/100 WBC (Bld) Lymphocytes/100 leukocytes in Blood by Manual count Low 18-42 [facility] MCH Auto (RBC) [Entitic mass ]Ordered By: Geoffrey Ibrahim on 09-21-2024 MCH (RBC) [Entitic mass] MCH [Entitic mass] by Automated count 27.5-35.2 [facility] MCHC Auto (RBC) [Mass/Vol]Or dered By: Geoffrey Ibrahim on 09-21-2024 MCHC (RBC) [Mass/Vol] MCHC [Mass/volume] by Automated count 32.5-35.6 [facility] MCV Auto (RBC) [Entitic vol] Ordered By: Geoffrey Ibrahim on 09-21-2024 MCV (RBC) [Entitic vol] MCV [Entitic volume] by Automated count 83.5-101 [facility] Monocytes Auto (Bld) [#/Vol] Ordered By: Geoffrey Ibrahim on 09-21-2024 Monocytes (Bld) [#/Vol] Automated blood monocyte count [facility] Monocytes/100 WBC Auto (Bld) Ordered By: Geoffrey Ibrahim on 09-21-2024 Monocytes/100 WBC (Bld) Automated monocyte % [facility] Monocytes/100 WBC Manual cnt (Bld)Ordered By: Geoffrey Ibrahim on 09-21-2024 Monocytes/100 WBC (Bld) Monocytes/100 leukocytes in Blood by Manual count 2-11 [facility] Neutrophils Auto (Bld) [#/Vo l]Ordered By: Geoffrey Ibrahim on 09-21-2024 Neutrophils (Bld) [#/Vol] Neutrophils [#/volume] in Blood by Automated count [facility] Neutrophils/100 WBC Auto (Bl d)Ordered By: Geoffrey Ibrahim on 09-21-2024 Neutrophils/100 WBC (Bld) Automated neutrophil % [facility] Nitrite Test strip Ql (U)Ord ered By: Geoffrey Ibrahim on 09-21-2024 Nitrite Ql (U) Nitrite [Presence] i n Urine by Test strip Negative [facility] No Panel InformationOrdered By: Geoffrey Ibrahim on 09-21-2024 Estimated GFR (CKD-EPI) > 60.0 mL/Min [facility] Creatinine Clearance (Chem N/A [facility] Nucleated erythrocytes [Pres ence] in Blood by Automated countOrdered By: Geoffrey Ibrahim on 09-21-2024 Nucleated RBC Auto Ql (Bld) Nucleated erythrocytes [Presence] in Blood by Automated count [facility] Platelet adequacy [Presence] in Blood by Light microscopyOrdered By: Geoffrey Ibrahim on 09-21-2024 Platelets LM Ql (Bld) Platelet adequacy [Presence] in Blood by Light microscopy Normal [facility] Platelet mean volume Auto (B ld) [Entitic vol]Ordered By: Geoffrey Ibraihm on 09-21-2024 Platelet mean volume (Bld) [Entitic vol] Platelet mean volume [Entitic volume] in Blood by Automated count 6.6-10.1 [facility] Platelet morphology finding [Identifier] in BloodOrdered By: Geoffrey Ibrahim on 09-21-2024 Platelet morphology finding Nom (Bld) Platelet morphology finding [Identifier] in Blood Normal [facility] Platelets Auto (Bld) [#/Vol] Ordered By: Geoffrey Ibrahim on 09-21-2024 Platelets (Bld) [#/Vol] Platelets [#/volume] in Blood by Automated count 150-450 [facility] Potassium [Moles/volume] in Serum or PlasmaOrdered By: Geoffrey Ibrahim on 09-21-2024 Potassium [Moles/Vol] Potassium [Moles/v olume] in Serum or Plasma 3.5-5.1 [facility] Protein Test strip (U) [Mass /Vol]Ordered By: Geoffrey Ibrahim on 09-21-2024 Protein (U) [Mass/Vol] Protein [Mass/vol ume] in Urine by Test strip Negative [facility] Protein [Mass/volume] in Ser um or PlasmaOrdered By: Geoffrey Ibrahim on 09-21-2024 Protein [Mass/Vol] Protein [Mass/volume ] in Serum or Plasma Low 6.4-8.9 [facility] RBC Auto (Bld) [#/Vol]Ordere d By: Geoffrey Ibrahim on 09-21-2024 RBC (Bld) [#/Vol] Erythrocytes [#/volu me] in Blood by Automated count 3.90-5.60 [facility] Segmented neutrophils/100 WB C Manual cnt (Bld)Ordered By: Geoffrey Ibrahim on 09-21-2024 Segmented neutrophils/100 WBC (Bld) Manual blood segmented neutrophils/100 leukocytes High 50-70 [facility] Serum or plasma albumin/glob ulin mass ratioOrdered By: Geoffrey Ibrahim on 09-21-2024 Albumin/Globulin [Mass ratio] Serum or plasma albumin/globulin mass ratio [facility] Serum or plasma anion gap de terminationOrdered By: Geoffrey Ibrahim on 09-21-2024 Anion gap [Moles/Vol] Serum or plasma an ion gap determination 6.0-15.0 [facility] Sodium [Moles/volume] in Ser um or PlasmaOrdered By: Geoffrey Ibrahim on 09-21-2024 Sodium [Moles/Vol] Sodium [Moles/volume ] in Serum or Plasma Low 136-145 [facility] Specific gravity Test strip (U) [Rel density]Ordered By: Geoffrey Ibrahim on 09-21-2024 Specific gravity (U) [Rel density] Specific gravity of Urine by Test strip 1.001-1.03 0 [facility] Urea nitrogen [Mass/volume] in Serum or PlasmaOrdered By: Geoffrey Ibrahim on 09-21-2024 Urea nitrogen [Mass/Vol] Urea nitrogen [Mass/volume] in Serum or Plasma High 7-25 [facility] Urinalysison 09-21-2024 Appearance (U) Clear Normal Clear [facility] Comment on above: Order Comment: Name Collection Type:: Clean-Voided Midstream Performed By: #### H EMOCHROM, HAAB, HCBIGM, HCV RX PCR, HAABT, HBSAB, HBCAB, HBSAG, CERULOP, MITOM2, AFPTM, ALPHA PHEN, IGG, DYLAN, SMAB, L-K MICRO #### [facility] , #### PT, CMP, KYLE, CBC #### [facility] [address] [place] [address] Bilirubin,Urine Negative Normal Negative [facility] Comment on above: Order Comment: Name Collection Type:: Clean-Voided Midstream Performed By: #### H EMOCHROM, HAAB, HCBIGM, HCV RX PCR, HAABT, HBSAB, HBCAB, HBSAG, CERULOP, MITOM2, AFPTM, ALPHA PHEN, IGG, DYLAN, SMAB, L-K MICRO #### [facility] , #### PT, CMP, KYLE, CBC #### [address] Color (U) Yellow Normal Yellow [facility] Comment on above: Order Comment: Name Collection Type:: Clean-Voided Midstream Performed By: #### H EMOCHROM, HAAB, HCBIGM, HCV RX PCR, HAABT, HBSAB, HBCAB, HBSAG, CERULOP, MITOM2, AFPTM, ALPHA PHEN, IGG, DYLAN, SMAB, L-K MICRO #### [facility] , #### PT, CMP, KYLE, CBC #### [address] Glucose Ql (U) Normal Normal Normal [facility] Comment on above: Order Comment: Name Collection Type:: Clean-Voided Midstream Performed By: #### H EMOCHROM, HAAB, HCBIGM, HCV RX PCR, HAABT, HBSAB, HBCAB, HBSAG, CERULOP, MITOM2, AFPTM, ALPHA PHEN, IGG, DYLAN, SMAB, L-K MICRO #### [facility] , #### PT, CMP, KYLE, CBC #### [address] Ketones Ql (U) Negative Normal Negative [facility] Comment on above: Order Comment: Name Collection Type:: Clean-Voided Midstream Performed By: #### H EMOCHROM, HAAB, HCBIGM, HCV RX PCR, HAABT, HBSAB, HBCAB, HBSAG, CERULOP, MITOM2, AFPTM, ALPHA PHEN, IGG, DYLAN, SMAB, L-K MICRO #### [facility] , #### PT, CMP, KYLE, CBC #### [address] Leukocyte esterase Test strip Ql (U) Negative Normal Negative [facility] Comment on above: Order Comment: Name Collection Type:: Clean-Voided Midstream Performed By: #### H EMOCHROM, HAAB, HCBIGM, HCV RX PCR, HAABT, HBSAB, HBCAB, HBSAG, CERULOP, MITOM2, AFPTM, ALPHA PHEN, IGG, DYLAN, SMAB, L-K MICRO #### [facility] , #### PT, CMP, KYLE, CBC #### [address] Nitrite,Urine Negative Normal Negative [facility] Comment on above: Order Comment: Name Collection Type:: Clean-Voided Midstream Performed By: #### H EMOCHROM, HAAB, HCBIGM, HCV RX PCR, HAABT, HBSAB, HBCAB, HBSAG, CERULOP, MITOM2, AFPTM, ALPHA PHEN, IGG, DYLAN, SMAB, L-K MICRO #### [facility] , #### PT, CMP, KYLE, CBC #### [address] Occult Blood,Urine Negative Normal Negative [facility] Comment on above: Order Comment: Name Collection Type:: Clean-Voided Midstream Result Comment: PERF ORMED BY: [place] [address] PATHOLOGIST OXYACETYLENE BURNER LEANDRA WALSH M.D. Performed By: #### H EMOCHROM, HAAB, HCBIGM, HCV RX PCR, HAABT, HBSAB, HBCAB, HBSAG, CERULOP, MITOM2, AFPTM, ALPHA PHEN, IGG, DYLAN, SMAB, L-K MICRO #### [facility] , #### PT, CMP, KYLE, CBC #### [address] pH (U) 6.0 [pH] Normal 5.0-9.0 [facility] Comment on above: Order Comment: Name Collection Type:: Clean-Voided Midstream Performed By: #### H EMOCHROM, HAAB, HCBIGM, HCV RX PCR, HAABT, HBSAB, HBCAB, HBSAG, CERULOP, MITOM2, AFPTM, ALPHA PHEN, IGG, DYLAN, SMAB, L-K MICRO #### [facility] , #### PT, CMP, KYLE, CBC #### [address] Protein,Urine Negative Normal Negative [facility] Comment on above: Order Comment: Name Collection Type:: Clean-Voided Midstream Performed By: #### H EMOCHROM, HAAB, HCBIGM, HCV RX PCR, HAABT, HBSAB, HBCAB, HBSAG, CERULOP, MITOM2, AFPTM, ALPHA PHEN, IGG, DYLAN, SMAB, L-K MICRO #### [facility] , #### PT, CMP, KYLE, CBC #### [address] Specificy Banks,Urine 1.014 Normal 1.001-1.03 0 [facility] Comment on above: Order Comment: Name Collection Type:: Clean-Voided Midstream Performed By: #### H EMOCHROM, HAAB, HCBIGM, HCV RX PCR, HAABT, HBSAB, HBCAB, HBSAG, CERULOP, MITOM2, AFPTM, ALPHA PHEN, IGG, DYLAN, SMAB, L-K MICRO #### [facility] , #### PT, CMP, KYLE, CBC #### [address] Urobilinogen,Urine Normal Normal Normal [facility] Comment on above: Order Comment: Name Collection Type:: Clean-Voided Midstream Performed By: #### H EMOCHROM, HAAB, HCBIGM, HCV RX PCR, HAABT, HBSAB, HBCAB, HBSAG, CERULOP, MITOM2, AFPTM, ALPHA PHEN, IGG, DYLAN, SMAB, L-K MICRO #### [facility] , #### PT, CMP, KYLE, CBC #### [facility] [address] Urobilinogen Test strip (U) [Mass/Vol]Ordered By: Geoffrey Ibrahim on 09-21-2024 Urobilinogen (U) [Mass/Vol] Urobilinogen [Mass/volume] in Urine by Test strip Normal [facility] WBC Auto (Bld) [#/Vol]Ordere d By: Geoffrey Ibrahim on 09-21-2024 WBC (Bld) [#/Vol] Leukocytes [#/volume ] in Blood by Automated count 4.1-10.5 [facility] pH Test strip (U)Ordered By: Geoffrey Ibrahim on 09-21-2024 pH (U) pH of Urine by Test strip 5.0-9.0 [facility] BASIC METABOLIC PANELon 10-1 Anion gap [Moles/Vol] 9 mmol/L Normal 7-20 [facility] Comment on above: Performed By: #### L [id number] #### [facility] (BEAKER) [address] [place] [address] Calcium [Mass/Vol] 6.9 mg/dL Low 8.6-10.3 [facility] Comment on above: Performed By: #### L AB15 #### [facility] (BEAKER) [address] [address] Chloride [Moles/Vol] 110 mmol/L High 98-107 [facility] Comment on above: Performed By: #### L AB15 #### [facility] ([facility]) [address] [place] [address] CO2 [Moles/Vol] 22 mmol/L Normal 21-31 [facility] Comment on above: Performed By: #### L [id number] #### [facility] (BEAKER) [address] [place] [address] Creatinine [Mass/Vol] 1.04 mg/dL Normal 0.70-1.30 [facility] Comment on above: Performed By: #### L [id number] #### [facility] ([facility]) [address] [place] [address] GLOMERULAR FILTRATION RATE ML/MIN/1.73 SQ M.PREDICTED 79.2 mL/min/1.73m*2 Normal >60.0 [facility] Comment on above: Result Comment: [facility]???s estimated glomerular filtration rate (eGFR) will [...] individuals. Performed By: #### L AB15 #### [facility] ([facility]) [address] [place] [address] Glucose [Mass/Vol] 86 mg/dL Normal 70-100 [facility] Comment on above: Performed By: #### L [id number] #### [facility] ([facility]) [address] [place] [address] Potassium [Moles/Vol] 3.9 mmol/L Normal 3.5-5.1 [facility] Comment on above: Performed By: #### L [id number] #### [facility] ([facility]) [address] [place] [address] Sodium [Moles/Vol] 137 mmol/L Normal 136-145 [facility] Comment on above: Performed By: #### L [id number] #### [facility] ([facility]) [address] [place] [address] Urea nitrogen [Mass/Vol] 32 mg/dL High 7-25 [facility] Comment on above: Performed By: #### L AB15 #### [facility] ([facility]) [address] [facility] [place] [address] UREA NITROGEN/CREATININE (MASS RATIO) IN SER/PLAS 30.8 [facility] Comment on above: Performed By: #### L AB15 #### [facility] (JACEY) [place] [address] HPon 05-14-2024 HP ------- Attestation signed by Taj Otero MD at [...] possible PCI. Joyce Rodrigues MD PGY-7 Interventional Handkerchief Sample Clerk [facility] NURSNOTEon 05-14-2024 NURSNOTE Patient okay to keren patel at [address] Otero. [facility] NURSNOTE RN educated pt on d/ c instructions. This included: site care, limited physical activity, resume normal diet, future appointments, medications, and moderate sedation instructions. RN educated pt on when to notify physician and when to go to the hospital. RN encouraged pt to voice any questions or concerns, and answered any questions or concerns if pt verbalized. [facility] RIP Aparicio notifi ed of normal creatnine result. states pt ok for early discharge at 2:30 and no need to continue IVF. [facility] Orders Onlyon 05-04-2024 Orders Only [id number] Chencho Penn 1955 M Date Provider Department Center 05/04/2024 ERMA JUNE Family History Problem Relation Age of Onset Colon cancer Mother Coronary artery disease Father Cancer Brother Family Status - Relation Status Age at Mother Father Brother [facility] CREATININE, SERUMon 05-01-20 24 Creatinine [Mass/Vol] 1.45 mg/dL High 0.70-1.[address] [facility] Comment on above: Performed By: #### L [id number] ####[facility] ([employer])[address] [place] [address] GLOMERULAR FILTRATION RATE ML/MIN/1.73 SQ M.PREDICTED 53.1 mL/min/1.73m*2 Low >60.0 [facility] Comment on above: Result Comment: [facility]???s estimated glomerular filtration rate (eGFR) will [...] of individuals. Performed By: #### L [id number] ####[facility] ([employer])[address] [place] [address] CTA HEART CORONARY W IV CONT Luh [...] Condon MD. Not Vldtd Invalid Interpretation Code [facility] Lab 05-01-2024 Lab [id number] Chencho Penn 1955 M Date Provider Department [place] 05/01/2024 2243-[facility] LAB RESOURCE [facility] [place] [facility] Family History Problem Relation Age of Onset Colon cancer Mother Coronary artery disease Father Cancer Brother Family Status - Relation Status Age at Mother Father Brother Normal [facility] 04-29-2024 [facility]iology - [facility] Subjective Gerson Penn is a 68 y.o. 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 Normal [facility] Office Visiton 04-29-2024 Follow-up visit [id number] Chencho Penn 1955 M Date Provider Department Center 04/29/2024 [facility] Family History Problem Relation Age of Onset Colon cancer Mother Coronary artery disease Father Cancer Brother Family Status - Relation Status Age at Mother Father Brother Level of Service:90850 AR OFFICE/OP CONSLTJ NEW/EST PT MOD MDM 40 MINUTES Normal [facility] [place] 04-18-2023 Consent [id number]#1.00CD:127 Normal [facility] In office Testingon 04-18-20 23 In office Testing [id number]#1.00CD:127 Normal [facility] Registrationon 04-18-2023 Registration [id number]#1.00CD:127 [facility] In office Testingon 03-15-20 23 In office Testing [id number]#1.00CD:127 Normal [facility] [place] 03-08-2023 Consent [id number]#1.00CD:127 Normal [facility] Registrationon 03-08-2023 Registration [id number]#1.00CD:127 [facility] In office Testingon 02-06-20 23 In office Testing [id number]#1.00CD:127 Normal [facility] [place] 02-04-2023 Consent [id number]#1.00CD:127 Normal [facility] Registrationon 02-04-2023 Registration [id number]#1.00CD:127 [facility] Patient Correspondenceon Patient Correspondence [id number]#1.00CD:127 [facility] Physician Referralon 023 Physician Referral [id number]#1.00CD:127 [facility] Physician Referral [id number]#1.00CD:127 [facility] [place] 11-09-2022 Consent [id number]#1.00CD:127 [facility] In office Testingon 11-10-19 23 In office Testing [id number]#1.00CD:127 [facility] Registrationon 11-09-2022 Registration [id number]#1.00CD:127 [facility] [place] 07-27-2022 Consent [id number]#1.00CD:127 [facility] Registrationon 07-27-2022 Registration [id number]#1.00CD:127 [facility] [place] 07-09-2022 Consent [id number]#1.00CD:127 [facility] In office Testingon 07-09-20 22 In office Testing [id number]#1.00CD:127 [facility] Registrationon 07-09-2022 Registration [id number]#1.00CD:127 [facility] In office Testingon 07-06-20 22 In office Testing [id number]#1.00CD:127 [facility] GLYCOHEMOGLOBIN A1Con 2021 ADA RECOMMENDATION SEE BELOW Normal [facility] Comment on above: Result Comment: ADA RECOMMENDED LIMIT 4.0 - 6.0 ADA THERAPEUTIC TARGET < 7.0 ACTION SUGGESTED > 7.0 Performed By: #### A 1C #### [facility] [address] [place] [address] Dr. Sandor Coffman Glucose [Mass/Vol] 140 mg/dL Normal [facility] Comment on above: Performed By: #### A 1C #### [facility] [address] [place] [address] Dr. Sandor Coffman HbA1c (Bld) [Mass fraction] 6.5 % Critically high 4.5-6.2 [facility] Comment on above: Performed By: #### A 1C #### [facility] [address] [address] [address] Sandor Coffman Registrationon 05-01-2022 Registration [id number]#1.00CD:127 Normal [facility] [place] 04-27-2022 Consent [id number]#1.00CD:127 Normal [facility] HIP LEFT 1 OR 2 VWS WITH PEL VISon 08-27-2019 HIP LEFT 1 OR 2 VWS WITH PELVIS [facility] Department of Radiology [address] [place] [id number] Patient Name: GERSON PENN : 1955 Sex: M Age: Race: White Pt. Location: Patient Status: Ordered Date: 08/27/2019 9:45:00 AM Completed Date: 08/27/2019 09:44 AM Requesting Provider: LIZET LOVEALCE Attending Provider: Report Copy To: Signs & [...] above. Electronically signed: David Sanford. Transcribed by: [email or web address], User Resident: Electronically Signed by: DAVID SANFORD @ 08/27/2019 01:52 PM Normal [facility] Comment on above: Order Comment: , Vie ws (X-RAY, HIP): Radiologic Protocol , Views (X-RAY, HIP): Radiologic Protocol , , , Ordering Provider - LIZET LOVELACE MD , HIP LEFT 1 OR 2 VWS WITH PEL VISon 06-18-2019 HIP LEFT 1 OR 2 VWS WITH PELVIS [facility] Department of Radiology [address] [place] [id number] Patient Name: GERSON PENN : 1955 Sex: M Age: Race: White Pt. Location: Patient Status: Ordered Date: 06/17/2019 3:35:00 PM Completed Date: 06/18/2019 10:30 AM Requesting Provider: LIZET LOVELACE Attending Provider: Report Copy To: Signs & Symptoms: Z96.642 Presence of left artificial hip joint I10 History: [place] Comments: , Views (X-RAY, HIP): Radiologic Protocol [...] loosening Electronically signed by:Carlos Cameron. Transcribed by: [email or web address], User Resident: Electronically Signed by: CARLOS CAMERON @ 06/18/2019 02:11 PM Normal [facility] Comment on above: Order Comment: , Heidie ws (X-RAY, HIP): Radiologic Protocol , Views (X-RAY, HIP): Radiologic Protocol , , , Ordering Provider - LIZET LOVELACE MD , Vital Signs Date Time Vital Sign Value Performing Clinician Mauliki sonal 11-05-2024 10:19-0400 Diastolic blood pressure 62 mm[Hg] Peggy Muñoz MD Work Phone: [facility] 11-05-2024 10:19-0400 Heart rate 73 /min Peggy Muñoz MD Work Phone: [facility] 11-05-2024 10:19-0400 Systolic blood pressure 141 mm[Hg] Peggy Muñoz MD Work Phone: [facility] 09-22-2024 16:40-0500 Diastolic blood pressure 68 mm[Hg] Peggy Muñoz MD Work Phone: [facility] 09-22-2024 16:40-0500 Heart rate 73 /min Peggy Muñoz MD Work Phone: [facility] 09-22-2024 16:40-0500 Respiratory rate 16 /min Peggy Muñoz MD Work Phone: [facility] 09-22-2024 16:40-0500 SaO2% (BldA) [Mass fraction] 92 % Peggy Muñoz MD Work Phone: [facility] 09-22-2024 16:40-0500 Systolic blood pressure 145 mm[Hg] Peggy Muñoz MD Work Phone: [facility] 09-22-2024 15:55-0500 Body temperature 97.4 [degF] Peggy Muñoz MD Work Phone: [facility] 09-22-2024 15:25-0500 Inhaled oxygen flow rate 6 L/min Peggy Muñoz MD Work Phone: [facility] 09-22-2024 12:02-0500 Body height 173.99 cm Peggy Muñoz MD Work Phone: [facility] 09-22-2024 12:02-0500 Body weight 140.7 kg Peggy Muñoz MD Work Phone: [facility] 09-18-2024 08:08-0500 Body height 180.34 cm [facility] 09-18-2024 08:08-0500 Body mass index (BMI) [Ratio] 43.1 kg/m2 [facility] 09-18-2024 08:08-0500 Body weight 140.21 kg [facility] Encounters Encounter Date Encounter Type Care Provider Facility Start: 11-26-2024 End: 11-26-2024 Patient encounter procedure Peggy Muñoz MD Work Phone: [facility]-CT Scan [place] Work Phone: Start: 11-26-2024 End: 11-26-2024 ambulatory Peggy Muñoz MD Work Phone: [facility] Work Phone: Start: 11-18-2024 End: 11-18-2024 ambulatory Peggy Muñoz MD Work Phone: [facility] Work Phone: Start: 11-18-2024 End: 11-18-2024 Departed Referred Peggy Muñoz MD Work Phone: [facility]-LAB Path [facility] Start: 11-05-2024 End: 11-05-2024 Patient encounter procedure Peggy Muñoz MD Work Phone: [facility] [place] Work Phone: Start: 11-05-2024 End: 11-05-2024 ambulatory Peggy Muñoz MD Work Phone: [facility] Work Phone: Start: 11-05-2024 End: 11-05-2024 ambulatory Peggy Muñoz MD Work Phone: [facility] Work Phone: Start: 11-05-2024 End: 11-05-2024 Patient encounter procedure Peggy Muñoz MD Work Phone: [facility] Work Phone: Start: 11-02-2024 End: 11-02-2024 ambulatory Peggy Muñoz MD Work Phone: [facility] Work Phone: Start: 11-02-2024 End: 11-02-2024 Patient encounter procedure Peggy Muñoz MD Work Phone: [facility] Work Phone: Start: 11-02-2024 End: 11-02-2024 Patient encounter procedure Peggy Muñoz MD Work Phone: [facility]XRay [facility] Start: 11-02-2024 End: 11-02-2024 ambulatory Peggy Muñoz MD Work Phone: [facility] Work Phone: Start: 10-20-2024 End: 10-20-2024 ambulatory Peggy Muñoz MD Work Phone: [facility] Work Phone: Start: 10-20-2024 End: 10-20-2024 Departed Referred Peggy Muñzo MD Work Phone: [facility] Start: 10-07-2024 End: 10-07-2024 ambulatory Peggy Muñoz MD Work Phone: [facility] Work Phone: Start: 10-07-2024 End: 10-07-2024 Patient encounter procedure Peggy Muñoz MD Work Phone: [facility] Work Phone: Start: 09-22-2024 End: 09-22-2024 Admission to same day surgery center Peggy Muñoz MD Work Phone: [facility] [place] Start: 09-22-2024 End: 09-22-2024 ambulatory Peggy Muñoz MD Work Phone: [facility] Work Phone: Start: 09-22-2024 Non-patient / Non-visit Vi Muñoz MD Work Phone: [facility] Work Phone: Start: 09-21-2024 End: 09-21-2024 Patient encounter procedure Peggy Muñoz MD Work Phone: [facility]-Surgical [facility] Work Phone: Start: 09-21-2024 End: 09-21-2024 ambulatory Peggy Muñoz MD Work Phone: [facility] Work Phone: Start: 09-21-2024 Encounter for preprocedural laboratory examination [facility] Start: 09-18-2024 End: 09-18-2024 ambulatory [facility] Work Phone: Start: 09-18-2024 End: 09-18-2024 Patient encounter procedure [facility] Work Phone: Start: 05-14-2024 End: 05-14-2024 ambulatory [facility] Start: 05-01-2024 Encounter for other preprocedural examination [facility] Start: 05-01-2024 End: 05-01-2024 ambulatory [facility] Start: 04-29-2024 End: 04-29-2024 ambulatory [facility] Start: 04-18-2023 End: 04-19-2023 ambulatory Tuan Lira Facility:[facility] Start: 03-08-2023 End: 03-09-2023 ambulatory Nat Petr TREVOR Facility[facility] Start: 02-04-2023 End: 02-05-2023 ambulatory Nat Petr TREVOR [facility] Start: 01-10-2023 ambulatory Truman UFNES Facilit y:C[facility] Start: 01-09-2023 ambulatory Truman [...] Date Procedure Procedure Detail Performing Clinician Start: 11-26-2024 CT of abdomen with contrast Peggy Muñoz MD Work Phone: Start: 11-18-2024 Urine culture Peggy bahena MD Work Phone: Start: 11-02-2024 Plain X-ray of left elbow Peggy Muñoz MD Work Phone: Start: 10-20-2024 Urine culture Peggy bahena MD Work Phone: Start: 10-07-2024 Plain X-ray of left elbow Peggy Muñoz MD Work Phone: Start: 09-22-2024 Open reduction of fracture with internal fixation Peggy Muñoz MD Work Phone: Start: 09-22-2024 Plain X-ray of left elbow Peggy Muñoz MD Work Phone: H/O: surgery S/P TIPS (transj ugular intrahepatic portosystemic shunt) Peggy Muñoz MD Work Phone: Plan of Treatment Date Care Activity Detail Author Start: 11-18-2024 Bacteria identified in Urine by Culture Urine Culture [facility] Start: 11-18-2024 Urine culture [facility] Start: 11-05-2024 Actin smooth muscle IgG Ab [Units/volume] in Serum [facility] Start: 11-05-2024 [id number]. tumor marker [Mass/volume] in Serum or Plasma [facility] Start: 11-05-2024 Ceruloplasmin [Mass/ volume] in Serum or Plasma [facility] Start: 11-05-2024 Hepatitis A virus Ab [Presence] in Serum by Immunoassay [facility] Start: 11-05-2024 Hepatitis A virus an tibody, IgM type [facility] Start: 11-05-2024 Hepatitis B core ant ibody measurement [facility] Start: 11-05-2024 Hepatitis B core ant ibody measurement, IgM type [facility] Start: 11-05-2024 Hepatitis B virus garcia rface Ab [Presence] in Serum [facility] Start: 11-05-2024 IgG [Mass/volume] in Serum or Plasma [facility] Start: 11-05-2024 Lipoprotein a [Moles/volume] in Serum or Plasma [facility] Start: 11-05-2024 Mitochondria M2 IgG Ab [Units/volume] in Serum [facility] Start: 11-05-2024 [facility] Start: 11-02-2024 Plain X-ray of left elbow XR elbow L T 2V [facility] Start: 11-02-2024 XR Elbow - left 2 Views [facility] Start: 10-20-2024 Urine culture [facility] Start: 10-20-2024 Bacteria identified in Urine by Culture Urine Culture [facility] Start: 10-07-2024 Plain X-ray of left elbow XR elbow L T 2V [facility] Start: 10-07-2024 XR Elbow - left 2 Views [facility] Start: 09-22-2024 [facility] Start: 09-22-2024 [facility] Start: 09-22-2024 Plain X-ray of left elbow XR elbow L T min 3V* [facility] Start: 09-22-2024 XR Elbow - left GE 3 Views [facility] Actin smooth muscle IgG Ab [Units/volume] in Serum [facility] Alpha 1 antitrypsin [Mass/volume] in Serum or Plasma [facility] Alpha 1 antitrypsin [Mass/volume] in Serum or Plasma [facility] Alpha 1 antitrypsin phenotyping [Identifier] in Serum or Plasma by Immunofixation [facility] [id number]. tumor marker [Mass/volume] in Serum or Plasma [facility] Ceruloplasmin [Mass/ volume] in Serum or Plasma [facility] Comprehensive metabo lic 2000 panel - Serum or Plasma [facility] Hepatitis A virus Ab [Presence] in Serum by Immunoassay [facility] Hepatitis A virus an tibody, IgM type [facility] Hepatitis B core ant ibody measurement [facility] Hepatitis B core ant ibody measurement, IgM type [facility] Hepatitis B virus garcia rface Ab [Presence] in Serum [facility] Hepatitis B virus garcia rface Ag [Presence] in Serum or Plasma by Immunoassay [facility] Hepatitis C virus Ig G Ab [Presence] in Serum or Plasma by Immunoassay [facility] HFE gene mutations f ound [Identifier] in Blood or Tissue by Molecular genetics method Nominal [facility] Homogenous nuclear A b pattern [Titer] in Serum [facility] IgG [Mass/volume] in Serum or Plasma [facility] Lipoprotein a [Moles/volume] in Serum or Plasma [facility] Mitochondria M2 IgG Ab [Units/volume] in Serum [facility] Nuclear Ab [Titer] in Serum [facility] Patient Education Know your Meds [facility] Work Phone: Patient referral [facility] Work Phone: [facility] Payers Date Payer Category Payer Private Health Insurance [id number] 2023 Unknown [id number] Self-pay 1955 Unknown [id number] 1955 Unknown [id number] 1955 Unknown [id number] 1955 Unknown [id number] Medicare [id number] Private Health Insurance [employer] [id number] Unknown [id number] Unknown [facility] [id number] Unknown [id number] Unknown [id number] Unknown [id number] Unknown [id number] Unknown [id number] Unknown [id number] Unknown [id number] Unknown [id number] Worker's Compensation [employer] [facility] [id number] Social History Date Type Detail Facility [facility] Work Phone: Start: 1955 Sex Assigned At Male [facility] Start: 07-24-2019 Tobacco smoking stat us NHIS Current some day smoker [facility] Start: 09-18-2024 End: 11-27-2024 Sex Male (finding) [facility] Start: 09-21-2024 End: 09-22-2024 Tobacco smoking status NHIS Ex-smoker (finding) [facility] Medical Equipment Procedure Code Equipment Code Equipment Origin al Text Equipment Identifier Dates Open reduction and internal fixation of fracture of humerus Elbow radius prosthesis [id number] FDA Start: 09-22-2024 Open reduction and internal fixation of fracture of humerus Elbow radius prosthesis ()[id number] FDA Start: 09-22-2024 Goals Date Patient Goal Desired Activity /State Radiology Diagnostic study note 11-26-2024 Note Date & Type Note Facility 11-26-2024 Radiology Diagnostic study note [facility] [place] [address] CT Scan Report Signed Patient: Gerson Penn MR#: [id number] : 1955 Acct:[id number] Age/Sex: 68 / M ADM Date: 5 Loc: CT Room: Type: [facility] Attending Dr: Derrek Rodgers MD Copies to: Derrek Rodgers MD~ Ordering Provider: Derrek Rodgers MD Date of Service: 11/26/24 CT/CT abdomen wo/w con: K76.6 - Portal hypertension CT ABDOMEN WITH AND WITHOUT INTRAVENOUS CONTRAST: CLINICAL HISTORY: Portal hypertension. Liver cirrhosis. COMPARISON: CT abdomen 07/28/2019. TECHNIQUE: Spiral images were obtained through the abdomen and pelvis before and after the administration of intravenous contrast. This CT exam was performed using one or more following dose reduction techniques: Automated exposure control, adjustment of the mA and/or kV according to patient size, or use of iterative reconstruction technique. FINDINGS: Lung Bases: [Bibasilar atelectasis. Trace bilateral pleural effusions.] Organs:Cirrhotic appearing liver with TIPS shunt in place. No arterially enhancing lesion with washout is identified to suggest hepatocellular carcinoma. There is heterogeneous enhancement involving the right lobe of the liver. A similar process is seen on the prior study given differences in bolus timing andprotocol. Hepatic and portal veins appear patent. Gallbladder is contracted with associated wall thickening/pericholecystic fluid. Pancreas is unremarkable. Mild splenomegaly measuring 13.2 cm. Adrenal glands appear unremarkable. Kidneys demonstrate no stone, mass or hydronephrosis. Cystic changes involving the kidneys. Aorta appears normal in caliber.[ GI: Stomach is grossly unremarkable. Visualized small bowel and colon demonstrate no acute process.[ Peritoneum/Retroperitoneum:Smal l amount of ascites. No free air or lymphadenopathy.[ Abd wall/Bones:Abdominal wall demonstrate no acute findings. Body wall anasarca. [chronic compression deformity involving the L1 vertebral body new since 2019. Scattered degenerative change. CT/CT abdomen wo/w con IMPRESSION: Cirrhotic liver with TIPS shunt in place. No arterially enhancing lesion with washout is identified to suggest hepatocellular carcinoma. There is heterogeneous enhancement involving the right lobe of the liver. A similar process is seen on the 2019 study given differences in bolus timing and protocol. Correlation with alpha-fetoprotein level is suggested. Infiltrative HCC cannot be excluded. . Splenomegaly. Small moderate ascites. Chronic appearing compression deformity L1 vertebral body. Trace bilateral pleural effusions. Impression dictated by: Gage Noland Jr., D.O. 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 +unintentional weight loss Will get laboratory workup for infectious autoimmune or metabolic etiologies of liver diseases. Will arrange for ultrasound Doppler of the portal/hepatic vasculature Will arrange for ultrasound and AFP every 6 months for hepatocellular carcinoma screening Will continue same diuretic dosage for now, there is evidence of ascites on ultrasound we will consider increasing the dosage based on kidney function Will arrange for screening colonoscopy [facility] Work Phone: Evaluation note 09-18-2024 Note Date & Type Note Facility 09-18-2024 Evaluation note Diagnosis Onset Date Resolution Fracture of coronoid process of left ulna acute September 182024 7:49am Fracture of radial head, left, closed acute August 7:49am [facility] Work Phone: Evaluation note 09-18-2024 Note Date & Type Note Facility 09-18-2024 Evaluation note Diagnosis Onset Date Resolution Fracture of coronoid process of left ulna acute September 182024 7:49am Fracture of radial head, left, closed acute September 18, 025 7:49am Fracture of coronoid process of left ulna acute October 07, 2024 8:05am Fracture of radial head, left, closed acute October 07, 2024 8:05am Other specified postprocedural states noneactive September 8:05am [facility] Work Phone: Evaluation note 09-18-2024 Note Date & Type Note Facility 09-18-2024 Evaluation note Diagnosis Onset Date Resolution Fracture of coronoid process of left ulna acute September 182024 7:49am Fracture of radial head, left, closed acute September 18, 2 025 7:49am Fracture of coronoid process of left ulna acute October 07, 2024 8:05am Fracture of radial head, left, closed acute October 07, 2024 8:05am Other specified postprocedural states noneactive September 8:05am Fracture of coronoid process of left ulna acute November 02, 2024 9:55am Fracture of radial head, left, closed acute November 02, 2024 9:55am Other specified postprocedural states noneactive November 02, 2024 9:55am [facility] Work Phone: Clinical Note 05-14-2024 Note Date & Type Note Facility 05-14-2024 Note Patient: Gerson Harrison Celia Procedure Information Date/Time: 05/14/24 1200 Procedures: Coronary angiography Right heart cath Location: [facility] 2 BIPLANE / [facility] (Cath) Providers: Taj [...] Plan discussed with attending. Additional Equipment Requests [facility] Progress note 04-29-2024 Note Date & Type Note Facility 04-29-2024 Note [place] [facility] Subjective Gerson Penn is a 68 y.o. 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 +unintentional weight loss Will get laboratory workup for infectious autoimmune or metabolic etiologies of liver diseases. 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 7:49am Reason for Visit Admit Date Fracture of coronoid process of left uln a September 18, 2024 7:49am Fracture of radial head, left, closed Fe bruary 2024 7:49am Chief Complaint Admit Date 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[employer] [facility] 2024 7:49am Left Radial Head Fracture September 21, 2024 7:38am Chief Complaint Admit Date 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[employer] [facility] 2024 7:49am Left Radial Head Fracture September 21, 2024 7:38am Left Radial Head Fracture September 22, 2024 7:29am Left Radial Head Fracture September 22, 2024 10:58am Chief Complaint Admit Date 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[employer] [facility] 2024 7:49am Left Radial Head Fracture September [...] 8:05am Fracture of radial head, left, closed [facility] 2024 8:05am Other specified postprocedural states [facility] 2024 8:05am Chief Complaint Admit Date 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[employer] [facility] 2024 7:49am Left Radial Head Fracture September 21, 2024 7:38am Left Radial Head Fracture September 22, 2024 7:29am Left Radial Head Fracture September 22, 2024 10:58am 3 weeks post op October 07, 2024 8:0 5am S52.122A - Displaced fracture of head of left radi October 07, 2024 8:07am Unknown October 20, 2024 6:2 0pm Chief Complaint Admit Date 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[employer] [facility] 2024 7:49am Left Radial Head Fracture September 21, 2024 7:38am Left Radial Head Fracture September 22, 2024 7:29am Left Radial Head Fracture September 22, 2024 10:58am 3 weeks post op October 07, 2024 8:0 5am S52.122A - Displaced fracture of head of left radi October 07, 2024 8:07am Unknown October 20, 2024 6:2 0pm S52.122A - Displaced fracture of head of left radi November 02, 2024 8:08am 3 WEEKS November 02, 2024 9:55 am Reason for Visit Admit Date Fracture of coronoid process of left uln a September 18, 2024 7:49am Fracture of radial head, left, closed Fe bruary 2024 7:49am Fracture of coronoid process of left uln a October 07, 2024 8:05am Fracture of radial head, left, closed [facility] 2024 8:05am Other specified postprocedural states [facility] 2024 8:05am Fracture of coronoid process of left uln a November 02, 2024 9:55am Fracture of radial head, left, closed [facility] 2024 9:55am Other specified postprocedural states Ap [facility] 2024 9:55am Chief Complaint Admit Date 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[employer] [facility] 2024 7:49am Left Radial Head Fracture September 21, 2024 7:38am Left Radial Head Fracture September 22, 2024 7:29am Left Radial Head Fracture September 22, 2024 10:58am 3 weeks post op October 07, 2024 8:0 5am S52.122A - Displaced fracture of head of left radi October 07, 2024 8:07am Unknown October 20, 2024 6:2 0pm S52.122A - Displaced fracture of head of left radi November 02, 2024 8:08am 3 WEEKS November 02, 2024 9:[address] Muñoz: cirrhosis of liver [facility] 2024 10:08am Reason for Visit Admit Date Fracture of coronoid process of left uln a September 18, 2024 7:49am Fracture of radial head, left, closed Fe bruary 2024 7:49am Fracture of coronoid process of left uln a October 07, 2024 8:05am Fracture of radial head, left, closed [facility] 2024 8:05am Other specified postprocedural states [facility] 2024 8:05am Fracture of coronoid process of left uln a November 02, 2024 9:55am Fracture of radial head, left, closed Ap [facility] 2024 9:55am Other specified postprocedural states Ap [facility] 2024 9:55am Decompensated cirrhosis November 05, 2024 10:08am History of esophageal varices October 10:08am Portal hypertension November 05, 2024 10: 08am Refractory ascites November 05, 2024 10: 08am S/P TIPS (transjugular intrahepatic port osystemic shunt) November 05, 2024 10:08am Liver cirrhosis secondary to VELOZ November 05, 2024 10:08am Chief Complaint Admit Date 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ELBOW FX [facility] 2024 7:49am Left Radial Head Fracture September 21, 2024 7:38am Left Radial Head Fracture September 22, 2024 7:29am Left Radial Head Fracture September 22, 2024 10:58am 3 weeks post op October 07, 2024 8:0 5am S52.122A - Displaced fracture of head of left radi October 07, 2024 8:07am Unknown October 20, 2024 6:2 0pm S52.122A - Displaced fracture of head of left radi November 02, 2024 8:08am 3 WEEKS November 02, 2024 9:[address] Muñoz: cirrhosis of liver Apri l 2024 10:08am K74.60 November 05, 2024 11: 25am Chief Complaint Admit Date 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ELBOW FX [facility] 2024 7:49am Left Radial Head Fracture September 21, 2024 7:38am Left Radial Head Fracture September 22, 2024 7:29am Left Radial Head Fracture September 22, 2024 10:58am 3 weeks post op October 07, 2024 8:0 5am S52.122A - Displaced fracture of head of left radi October 07, 2024 8:07am Unknown October 20, 2024 6:2 0pm S52.122A - Displaced fracture of head of left radi November 02, 2024 8:08am 3 WEEKS November 02, 2024 9:[address] Muñoz: cirrhosis of liver Apri l 2024 10:08am K74.60 November 05, 2024 11: 25am Unknown November 18, 2024 12: 30pm Chief Complaint Admit Date 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ELBOW FX [facility] 2024 7:49am Left Radial Head Fracture September 21, 2024 7:38am Left Radial Head Fracture September 22, 2024 7:29am Left Radial Head Fracture September 22, 2024 10:58am 3 weeks post op October 07, 2024 8:0 5am S52.122A - Displaced fracture of head of left radi October 07, 2024 8:07am Unknown October 20, 2024 6:2 0pm S52.122A - Displaced fracture of head of left radi November 02, 2024 8:08am 3 WEEKS November 02, 2024 9:[address] Muñoz: cirrhosis of liver Apri l 2024 10:08am K74.60 November 05, 2024 11: 25am Unknown November 18, 2024 12: 30pm K72.90 K74.60 R77.2 November 26, 2024 10:35a m Additional Source Comments (unrecognized sect ion and content) No Status Records FoundNo Status Records FoundNo Status Records FoundNo Status Records FoundNo Status Records Found INFORMATION SOURCE (unrecogn ized section and content) DATE CREATED AUTHOR 06/17/2020 [facility] DATE CREATED AUTHOR AUTHOR'S ORGANIZ ATION 07/07/2022 [facility] DATE CREATED AUTHOR AUTHOR'S ORGANIZ ATION 04/20/2023 [facility] DATE CREATED AUTHOR AUTHOR'S ORGANIZ ATION 05/19/2024 [facility] DATE CREATED AUTHOR AUTHOR'S ORGANIZ ATION 12/01/2024 [facility] Goals (unrecognized section and content) Goals may be documented in a n alternate sectionGoals may be documented in an alternate sectionGoals may be documented in an alternate section Care Teams (unrecognized sec tion and content) Team Status: Active Member Role Status Dates Peggy Muñoz MD Primary Care Provider Active Team Status: Inactive Member Role Status Netta Muñoz MD Primary Care Provider Active Start: September 18, 2024 End: September 18, 2024 Geoffrey Ibrahim DO Attending Provider Active S tart: September 18, 2024 End: September 18, 2024 Team Status: Inactive Member Role Status Netta Muñoz MD Primary Care Provider Active Start: September 21, 2024 End: September 21, 2024 Geoffrey Ibrahim DO Attending Provider Active S tart: September 21, 2024 End: September 21, 2024 Team Status: Active Member Role Status Netta Muñoz MD Primary Care Provider Active Start: September 22, 2024 Geoffrey Ibrahim DO Attending Provider, Other Provider Active Start: September 22, 2024 Team Status: Inactive Member Role Status Netta Muñoz MD Primary Care Provider Active Start: September 22, 2024 End: September 22, 2024 Geoffrey Ibrahim DO Attending Provider Active S tart: September 22, 2024 End: September 22, 2024 Team Status: Inactive Member Role Status Netta Muñoz MD Primary Care Provider Active Start: October 07, 2024 End: October 07, 2024 Geoffrey Ibrahim DO Attending Provider Active S tart: October 07, 2024 End: October 07, 2024 Team Status: Inactive Member Role Status Dates Leti Ren PA-C Attending Provider Active Start: October 20, 2024 End: October 20, 2024 Team Status: Inactive Member Role Status Dates Geoffrey Ibrahim DO Attending Provider Active S tart: November 02, 2024 End: November 02, 2024 NON STAFF Primary Care Provider Active Start: November 02, 2024 End: November 02, 2024 Team Status: Inactive Member Role Status Dates Derrek Rodgers MD Attending Provider Active Start: November 05, 2024 End: November 05, 2024 NON STAFF Primary Care Provider Active Start: November 05, 2024 End: November 05, 2024 Team Status: Inactive Member Role Status Dates Peggy Muñoz MD Primary Care Provider Active Start: November 05, 2024 End: November 05, 2024 Derrek Rodgers MD Attending Provider Active Start: November 05, 2024 End: November 05, 2024 Team Status: Active Member Role Status Dates NON STAFF Primary Care Provider Active Team Status: Active Member Role Status Dates Geoffrey Ibrahim DO Attending Provider Active S tart: November 02, 2024 Team Status: Active Member Role Status Dates Peggy Muñoz MD Primary Care Provider Active Start: October 07, 2024 Geoffrey Ibrahim , DO Attending Provider Active S tart: October 07, 2024 Team Status: Inactive Member Role Status Dates Geoffrey Ibrahim , DO Attending Provider Active S tart: November 02, 2024 End: November 02, 2024 Team Status: Inactive Member Role Status Dates Peggy Muñoz MD Attending Provider Active Sta rt: November 18, 2024 End: November 18, 2024 Team Status: Inactive Member Role Status Dates Derrek Rodgers MD Attending Provider Active Start: November 26, 2024 End: November 26, 2024 FOR RECORDS PERTAINING TO PATIENTS WHO [...] BE BASED ON THE PRIMARY CLINICAL RECORDS. [employer] provides no warranty or guarantee of the accuracy or completeness of information in this document.
[2024-12-07 11:40] LABS: Basophils Percent Auto 0.1 % (0.2-2.0); Eosinophils Absolute Auto 0.2 10^3/uL (0.0-0.7); Hematocrit 34.3 % (42.0-54.0); Hemoglobin 11.6 g/dL (14.0-18.0); Immature Granulocytes Abs Auto 0.05 10^3/uL (0.00-0.03); Immature Granulocytes Pct Auto 0.7 % (0.0-0.5); Lymphocytes Absolute Auto 0.6 10^3/uL (1.2-3.8); Lymphocytes Percent Auto 8.5 % (20.5-60.0); Mean Corpuscular HGB Conc 33.8 g/dL (29.9-35.2); Mean Corpuscular Hemoglobin 35.3 pg (25.9-34.0); Mean Corpuscular Volume 104.3 fL (80.0-94.0); Mean Platelet Volume 10.2 fL (9.5-13.5); Monocytes Absolute Auto 0.7 10^3/uL (0.3-0.8); Monocytes Percent Auto 9.3 % (1.7-12.0); Neutrophils Absolute Auto 5.8 10^3/uL (1.4-6.5); Neutrophils Percent Auto 79.4 % (43.0-75.0); Platelet Count 182 10^3/uL (150-450); Red Blood Count 3.29 10^6/uL (4.70-6.10); Red Cell Distribution Width 17.3 % (11.0-15.0); White Blood Count 7.3 10^3/uL (4.0-11.0)
[2024-12-07 12:26] LABS: Ammonia 64 umol/L (11-32)
[2024-12-07 12:33] LABS: Alanine Aminotransferase 75 U/L (16-63); Albumin Globulin Ratio 0.3; Albumin Level 1.2 g/dL (3.4-5.0); Alkaline Phosphatase 311 U/L (46-116); Anion Gap 8.5; Aspartate Amino Transferase 110 U/L (15-37); BUN Creatinine Ratio 34.2; Bilirubin Total 2.5 mg/dL (0.2-1.0); Calcium 8.6 mg/dL (8.5-10.1); Carbon Dioxide 27.3 mmol/L (21.0-32.0); Chloride 105 mmol/L (98-107); Estimated GFR (African America 52 (>=60 mL/min/1.73m^2); Estimated GFR (Non-African Ame 43 (>=60 mL/min/1.73m^2); Globulin 3.8 g/dL; Glucose 209 mg/dL (74-106); Potassium 4.8 mmol/L (3.5-5.1); Sodium 136 mmol/L (136-145); Thyroid Stimulating Hormone 2.646 uIU/mL (0.358-3.740); Troponin I High Sensitivity 10.3 pg/mL (4.0-76.1); Uric Acid 6.4 mg/dL (3.5-7.2)
== END 2024-12-07 11:07 | disposition home or self-care (01) ==
LOC: LAB 11:17
PROVIDERS: PCP Family Medicine; Visit Provider Family Medicine
DX: E66.01 Morbid (severe) obesity due to excess calories (principal); N18.31 Chronic kidney disease, stage 3a; I50.32 Chronic diastolic (congestive) heart failure; E11.21 Type 2 diabetes mellitus with diabetic nephropathy; K74.60 Unspecified cirrhosis of liver; I95.9 Hypotension, unspecified; K75.81 Nonalcoholic steatohepatitis (NASH); I50.30 Unspecified diastolic (congestive) heart failure; I12.9 Hypertensive chronic kidney disease with stage 1 through stage 4 chronic kidney disease, or unspecified chronic kidney disease
CPT/HCPCS: 36415; 80053; 82140; 83880; 84436; 84443; 84481; 84484; 84550; 85025

== ENCOUNTER 2024-12-10 13:46 | Inpatient (IN) | payer MEDICARE, SELFPAY ==
[2024-12-10] VITALS (18 sets, daily range): BP systolic 66–136; BP diastolic 21–75; PULSE 66–82; TEMP 36.4–36.9; O2SAT 93–100; BMI 45.9; BMI 62.9
[2024-12-10 14:27] LABS: Basophils Percent Auto 0.1 % (0.2-2.0); Eosinophils Absolute Auto 0.2 10^3/uL (0.0-0.7); Eosinophils Percent Auto 2.5 % (0.9-7.0); Hematocrit 29.4 % (42.0-54.0); Hemoglobin 10.3 g/dL (14.0-18.0); Immature Granulocytes Abs Auto 0.07 10^3/uL (0.00-0.03); Immature Granulocytes Pct Auto 0.9 % (0.0-0.5); Lymphocytes Absolute Auto 0.8 10^3/uL (1.2-3.8); Lymphocytes Percent Auto 9.8 % (20.5-60.0); Mean Corpuscular Volume 102.8 fL (80.0-94.0); Mean Platelet Volume 10.3 fL (9.5-13.5); Monocytes Absolute Auto 0.9 10^3/uL (0.3-0.8); Neutrophils Absolute Auto 6.1 10^3/uL (1.4-6.5); Neutrophils Percent Auto 75.7 % (43.0-75.0); Platelet Count 207 10^3/uL (150-450); Red Blood Count 2.86 10^6/uL (4.70-6.10); Red Cell Distribution Width 16.7 % (11.0-15.0); White Blood Count 8.1 10^3/uL (4.0-11.0)
[2024-12-10 14:33] LABS: Erythrocyte Sedimentation Rate 40 mm/hr (<=20)
[2024-12-10 14:45] LABS: Alanine Aminotransferase 75 U/L (16-63); Albumin Globulin Ratio 0.3; Albumin Level 1.2 g/dL (3.4-5.0); Alkaline Phosphatase 283 U/L (46-116); Anion Gap 11.5; Aspartate Amino Transferase 94 U/L (15-37); BUN Creatinine Ratio 28.6; Bilirubin Total 1.7 mg/dL (0.2-1.0); C Reactive Protein 2.05 mg/dL (<=0.50); Calcium 7.9 mg/dL (8.5-10.1); Carbon Dioxide 24.4 mmol/L (21.0-32.0); Chloride 102 mmol/L (98-107); Estimated GFR (African America 50 (>=60 mL/min/1.73m^2); Estimated GFR (Non-African Ame 41 (>=60 mL/min/1.73m^2); Globulin 3.5 g/dL; Glucose 106 mg/dL (74-106); Potassium 4.9 mmol/L (3.5-5.1); Sodium 133 mmol/L (136-145); Total Protein 4.7 g/dL (6.4-8.2)
[2024-12-10] MEDS: 0.9 % SODIUM CHLORIDE 1,000 ML 999 ML IV (14:47)
[2024-12-10 14:49] LABS: Lactate/Lactic Acid 3.6 mmol/L (0.4-2.0)
--- NOTE | 2024-12-10 15:28 | ED.GENADUL1 ---
HPI HPI - General Adult General Chief complaint: Extremity Problem, Nontraumatic Stated complaint: SORES ON FEET DECRESED MOVEMENT Time Seen by Provider: 12/10/24 14:02 Source: patient and family Mode of arrival: Wheelchair Limitations: physical limitation Limitations comment: stands and pivots with assist- unsteady History of Present Illness HPI narrative: Patient is a 68-year-old male who presents to the emergency department today for evaluation of concerns for a foot infection per the patient's . Patient with a significant history of diabetes, generalized weakness who was recently discharged from acute rehab a week prior following a hospitalization, and multiple wounds. Patient's mentions the home health nurse was concerned for a wound to the patient's lower extremities and advised that he come to the ER. Patient does have a noted ulcer to the left calcaneal region and reported multiple skin tears to his upper extremities and pressure ulcers to his buttocks. Historically no fevers or sick symptoms of nausea or vomiting. Patient's mentions he is having increased difficulty with performing ADLs at home such as toileting. She mentions he is using a lift and barely moving around with a walker. Patient's mention she is unable to care for him at home. Patient is hoping to be placed in a nursing facility. Per chart review: Patient was recently hospitalized 11/18 through 11/20 for generalized weakness, acute pancreatitis, and SHAHZAD at which time he was then discharged to acute rehab Related Data Home Medications ?Medication ?Instructions ?Recorded ?Confirmed carvedilol 6.25 mg tablet 6.25 mg PO Q12H 05/27/23 12/10/24 furosemide 20 mg tablet 40 mg PO DAILY 05/27/23 12/10/24 potassium chloride 20 mEq 20 meq PO DAILY 05/27/23 12/10/24 tablet,extended release(part/cryst) (Klor-Con M) ezetimibe 10 mg tablet 10 mg PO DAILY 10/20/24 12/10/24 amlodipine 2.5 mg tablet 2.5 mg PO DAILY 11/18/24 12/10/24 aspirin 81 mg capsule 81 mg PO DAILY 11/18/24 12/10/24 cyanocobalamin (vitamin B-12) 2,000 mcg PO DAILY 11/18/24 12/10/24 2,000 mcg tablet,extended release (Vitamin B-12 ER) ferrous sulfate 325 mg (65 mg 325 mg PO BID 11/18/24 12/10/24 iron) tablet (iron) glimepiride 4 mg tablet 4 mg PO DAILY 11/18/24 12/10/24 olanzapine 2.5 mg tablet 2.5 mg PO DAILY 11/18/24 12/10/24 spironolactone 25 mg tablet 25 mg PO .QD 11/18/24 12/10/24 citalopram 20 mg tablet 40 mg PO DAILY 12/10/24 12/10/24 levofloxacin 750 mg tablet 750 mg 12/10/24 liothyronine 5 mcg tablet mcg 12/10/24 sacubitril 24 mg-valsartan 26 mg 1 tab PO BID 12/10/24 12/10/24 tablet (Entresto) Previous Rx's ?Medication ?Instructions ?Recorded lactulose 10 gram/15 mL oral 10 g (15 mL) PO TID #3,785 mL 11/20/24 solution quetiapine 25 mg tablet 25 mg PO HS #30 tabs 11/20/24 Allergies Allergy/AdvReac Type Severity Reaction Status Date / Time No Known Drug Allergies Allergy Verified 12/10/24 14:02 Opioid HPI Opioid Management Most Recent Opioid Data: Last Pain Scale 5 Today, 13:58 Last Pain Intensity 2 11/19/24, 14:26 Last ORT Total Score 1 11/18/24, 09:20 Last ORT Risk Category Low Risk 11/18/24, 09:20 Review of Systems ROS Status of ROS 10 or more systems reviewed and unremarkable except as noted in history and below [facility] Medical History (Updated 12/10/24 @ 15:49 by Forrest Perez NP) Generalized weakness ?R53.1 - Weakness (ICD-10) Laceration of left forearm ?S51.812A - Laceration without foreign body of left forearm, initial encounter (ICD-10) Chest wall contusion ?S20.219A - Contusion of unspecified front wall of thorax, initial encounter (ICD-10) Head injury ?S09.90XA - Unspecified injury of head, initial encounter (ICD-10) Severe protein-calorie malnutrition ?E43 - Unspecified severe protein-calorie malnutrition (ICD-10) Coagulopathy ?D68.9 - Coagulation defect, unspecified (ICD-10) Hyperbilirubinemia ?E80.6 - Other disorders of bilirubin metabolism (ICD-10) Lactic acidosis ?E87.20 - Acidosis, unspecified (ICD-10) Hyperkalemia ?E87.5 - Hyperkalemia (ICD-10) Thrombocytopenia ?D69.6 - Thrombocytopenia, unspecified (ICD-10) Acute pancreatitis ?K85.90 - Acute pancreatitis without necrosis or infection, unspecified (ICD-10) Cholelithiasis ?K80.20 - Calculus of gallbladder without cholecystitis without obstruction (ICD-10) Cirrhosis ?K74.60 - Unspecified cirrhosis of liver (ICD-10) Acute kidney injury superimposed on stage 1 chronic kidney disease ?N17.9 - Acute kidney failure, unspecified (ICD-10) ?N18.1 - Chronic kidney disease, stage 1 (ICD-10) Acute UTI ?N39.0 - Urinary tract infection, site not specified (ICD-10) Nausea vomiting and diarrhea ?R11.2 - Nausea with vomiting, unspecified (ICD-10) ?R19.7 - Diarrhea, unspecified (ICD-10) Hypovolemia ?E86.1 - Hypovolemia (ICD-10) Syncope ?R55 - Syncope and collapse (ICD-10) Dehydration ?E86.0 - Dehydration (ICD-10) Surgical History History of left hip replacement ?Z96.642 - Presence of left artificial hip joint (ICD-10) Family History (Updated 11/18/24 @ 09:31 by Yolis Coates RN) Father Family history of myocardial infarction Mother Family history of hypertension Family history of cancer Social History (Updated 11/18/24 @ 09:31 by Yolis Coates RN) Within the past year, how often did you have a drink containing alcohol: never Score interpretation: A score less than 4 is consistent with normal alcohol consumption. Smoking status: Former smoker Non-prescribed substance use: denies use Highest level of school completed/degree received: high school graduate Little interest or pleasure in doing things: not at all Feeling down, depressed, or hopeless: not at all Exam Narrative Exam Narrative: Constituational: Awake/ alert, no apparent distress, well hydrated, morbid obese HENMT: normocephalic, external ears normal, moist oral mucous membranes and oropharynx normal Eyes: EOMI and conjunctivae normal Neck: ROM intact Chest: inspection of chest normal Respiratory: Normal respiratory effort, clear to auscultation bilaterally Cardio: regular rate and regular rhythm GI: soft to palpation and non-tender Back: nontender MSK: Denies weakness to B/L LE and UE, ROM intact, +NVI Skin: + Small skin tears to B/L UE with ecchymosis, +approx 3x1cm ulcer to L calcaneus, x3 approx 1cm ulcers to intergluteal region with surrounding erythema that is blanchable Neuro: no focal deficits Psych: mental status grossly normal Constitutional Vital Signs, click to edit/add: Last Vital Signs Temp 98.5 F 12/10/24 13:58 Pulse 82 12/10/24 14:29 Resp 20 12/10/24 14:29 BP 92/48 L 12/10/24 14:29 Pulse Ox 97 12/10/24 14:29 O2 Del Method Room Air 12/10/24 14:29 Course Vital Signs Vital signs: Vital Signs Temperature 98.5 F 12/10/24 13:58 Pulse Rate 80 12/10/24 13:58 Respiratory Rate 20 12/10/24 13:58 Blood Pressure 83/52 L 12/10/24 13:58 Pulse Oximetry 96 12/10/24 13:58 Oxygen Delivery Method Room Air 12/10/24 13:58 Temperature 98.5 F 12/10/24 13:58 Pulse Rate 82 12/10/24 14:29 Respiratory Rate 20 12/10/24 14:29 Blood Pressure 92/48 L 12/10/24 14:29 Pulse Oximetry 97 12/10/24 14:29 Oxygen Delivery Method Room Air 12/10/24 14:29 Medical Decision Making MDM Narrative Medical decision making narrative: Patient is a chronically ill-appearing 68-year-old male with multiple medical comorbidities including diabetes with obesity and limited mobility who did to the ER today for evaluation of concerns for multiple wounds per the home health nurse and difficulty performing ADLs. Initial examination patient noted to have SBP in 80s to 90s. He seems asymptomatic with this and reports he did take his antihypertensive medications this morning. He is otherwise nontachypneic or tachycardic. Historically no fevers and he is afebrile in the ER today. No acute abdominal findings on exam. Volume status is difficult to appreciate due to body habitus however he does appear compensated. Patient noted to have multiple skin tears in addition to pressure ulcers to his buttocks and an ulcer to his left heel however these wounds do not appear acutely infected on initial examination. Lactic is 3.6 -> repeat pending. Patient received supportive measures of 30 mL/kg fluid bolus. Chest x-ray without critical findings. Labs showed no significant leukocytosis, stable anemia with Hgb 10.3, no thrombocytopenia. Electrolytes including hepatic function stable. And mildly elevated at 1.6 however this is stable per prior trends. ESR mildly elevated at 40 and CRP mildly elevated at 2 however this is stable per prior trends. Urinalysis is negative for UTI. Clinically there is elevated concern for sepsis when patient did receive ceftriaxone and vancomycin for infection of unknown etiology. He was reevaluated multiple times while in the ER and otherwise has remained hemodynamically stable and does appear stablely perfused. Clinical impression consistent generalized weakness. Patient's condition with PCP Dr. Muñoz 1925p -> accepts patient for admission. Discussed the above findings and recommendations with the patient and his who was present at the bedside. Both are agreeable with the plan to be admitted for further care of the above. Medical Records Medical records reviewed: Yes I reviewed the patient's medical records Lab Data Lab results reviewed: Yes I reviewed the patient's lab results Labs: Lab Results 12/10/24 12/10/24 Range/Units 14:15 15:28 WBC 8.1 (4.0-11.0) 10^3/uL RBC 2.86 L (4.70-6.10) 10^6/uL Hgb 10.3 L (14.0-18.0) g/dL Hct 29.4 L (42.0-54.0) % MCV 102.8 H (80.0-94.0) fL MCH 36.0 H (25.9-34.0) pg MCHC 35.0 (29.9-35.2) g/dL RDW 16.7 H (11.0-15.0) % Plt Count 207 (150-450) 10^3/uL MPV 10.3 (9.5-13.5) fL Neut % (Auto) 75.7 H (43.0-75.0) % Lymph % (Auto) 9.8 L (20.5-60.0) % [place] % (Auto) 11.0 (1.7-12.0) % Eos % (Auto) 2.5 (0.9-7.0) % Baso % (Auto) 0.1 L (0.2-2.0) % Neut # (Auto) 6.1 (1.4-6.5) 10^3/uL Lymph # (Auto) 0.8 L (1.2-3.8) 10^3/uL [place] # (Auto) 0.9 H (0.3-0.8) 10^3/uL Eos # (Auto) 0.2 (0.0-0.7) 10^3/uL Baso # (Auto) 0.0 (0.0-0.1) 10^3/uL Abs Immat Gran (auto) 0.07 H (0.00-0.03) 10^3/uL Imm/Tot Granulo (auto) 0.9 H (0.0-0.5) % ESR 40 H (<=20) mm/hr Sodium 133 L (136-145) mmol/L Potassium 4.9 (3.5-5.1) mmol/L Chloride 102 (98-107) mmol/L Carbon Dioxide 24.4 (21.0-32.0) mmol/L Anion Gap 11.5 BUN 48.0 H (7.0-18.0) mg/dL Creatinine 1.68 H (0.70-1.30) mg/dL Est GFR ( Amer) 50 L (>=60 mL/min/1.73m^2) Est GFR (Non-Af Amer) 41 L (>=60 mL/min/1.73m^2) BUN/Creatinine Ratio 28.6 Glucose 106 (74-106) mg/dL Lactate 3.6 H* (0.4-2.0) mmol/L Calcium 7.9 L (8.5-10.1) mg/dL Total Bilirubin 1.7 H (0.2-1.0) mg/dL AST 94 H (15-37) U/L ALT 75 H (16-63) U/L Alkaline Phosphatase 283 H (46-116) U/L C-Reactive Protein 2.05 H (<=0.50) mg/dL Total Protein 4.7 L (6.4-8.2) g/dL Albumin 1.2 L (3.4-5.0) g/dL Globulin 3.5 g/dL Albumin/Globulin Ratio 0.3 Urine Color Lt. yellow (YELLOW) Urine Clarity Clear (CLEAR) Urine pH 6.0 (5.0-9.0) Ur Specific [place] 1.010 (1.005-1.025) Urine Protein Negative (NEG/TRACE) mg/dL Urine Glucose (UA) Negative (NEGATIVE) mg/dL Urine Ketones Negative (NEGATIVE) mg/dL Urine Occult Blood Negative (NEGATIVE) Urine Nitrite Negative (NEGATIVE) Urine Bilirubin Negative (NEGATIVE) Urine Urobilinogen 0.2 (0.2-1.0) EU/dL Ur Leukocyte Esterase Negative (NEGATIVE) Urine RBC 0-2 (0-2) #/HPF Urine WBC 0-2 A (NONE SEEN) #/HPF Ur Squamous Epith Cells Few A (NONE/RARE) #/LPF Urine Crystals None seen (None Seen) #/HPF Urine Bacteria Trace A (NONE SEEN) #/HPF Urine Casts Seen A (NONE SEEN) #/LPF Hyaline Casts Moderate Urine Mucus None seen (NONE SEEN) Ur Culture Indicated? No Imaging Data Chest x-ray: Attestation: I have reviewed the pertinent imaging results. Radiologist's impression: No acute processes ECG Data Attestation: I personally reviewed and interpreted this ECG as follows: (SR with HR 71, no acute/ischemic changes) Discharge Plan Discharge Patient Disposition: Still a Patient
[2024-12-10] MEDS: SODIUM CHLORIDE 0.9% IV (15:36)
[2024-12-10] MEDS: CEFTRIAXONE IV (15:36)
[2024-12-10] MEDS: 0.9 % SODIUM CHLORIDE 2,190 ML 730 ML IV (15:37)
[2024-12-10 15:44] LABS: Bilirubin Urine NEGATIVE (NEGATIVE); Blood Urine NEGATIVE (NEGATIVE); Clarity Urine CLEAR (CLEAR); Color Urine LT. YELLOW (YELLOW); Glucose Urine UA NEGATIVE (NEGATIVE); Ketones Urine NEGATIVE (NEGATIVE); Leukocyte Esterase Urine NEGATIVE (NEGATIVE); Nitrite Urine NEGATIVE (NEGATIVE); Protein Urine NEGATIVE (NEG/TRACE); Urobilinogen Urine 0.2 EU/dL (0.2-1.0)
[2024-12-10 15:50] LABS: RBC Urine 0-2 #/HPF (0-2); WBC Urine 0-2 #/HPF (NONE SEEN)
[2024-12-10 15:51] LABS: Bacteria Urine TRACE #/HPF (NONE SEEN); Cast Seen? SEEN #/LPF (NONE SEEN); Crystals Seen? None Seen #/HPF (None Seen); Hyaline Casts Urine MODERATE; Mucus Urine NONE SEEN (NONE SEEN); Squamous Epithelial Cell Urine FEW #/LPF (NONE/RARE); Urine Culture Indicated NO
--- NOTE | 2024-12-10 16:00 | ECG_ITS ---
[facility] Test Date: 2024-12-10 Pat Name: JAZMYNE PENN Department: Room: [facility] Gender: Male [employer] Ere[employer]: : 1955 Requested By: [id number] Order Number: [id number] Reading MD: TAJ OTERO M.D. Measurements Intervals Everly Rate: 71 P: 36 UT: 188 QRS: -1 QRSD: 78 T: 42 QT: 374 QTc: 396 Interpretive Statements 1100 Sinus rhythm 9110 normal ECG Compared to ECG 10/20/2024 15:31:50 No significant changes Electronically Signed On 12-10-2024 19:45:55 EDT by TAJ OTERO M.D.
[2024-12-10] MEDS: VANCOMYCIN HCL 2,000 MG in 0.9 % SODIUM CHLORIDE 500 ML 250 MG IV (16:33)
--- OUTSIDE RECORDS SUMMARY | 2024-12-10 17:14 | XMS_ITS | CCD ---
Author Organization [facility]ini[facility]yp[facility] Care Team Providers Care Stem Mounter Name Role Phone DR PEGGY MUÑOZ Admitting [...] Unavailable Peggy Muñoz MD Primary Care Provider Geoffrey Ibrahim DO Attending Provider [phone] Peggy Muñoz MD Primary Care Provider [phone] Geoffrey Ibrahim DO Attending Provider Leti Ren PA-C Attending Provider NON STAFF Primary Care Provider UnavailDerrek Morales MD Attending Provider [phone] Peggy Muñoz MD Attending Provider [phone] Asaad, Imad Admitting Unavailable Asaad, Imad Attending [...] wo/w conon 2024 CT abdomen wo/w con [facility] [place] [address] [place] [address] CT Scan Report Signed Patient: Gerson Penn MR#: [id number] : 1955 Acct:[id number] Age/Sex: 68 / M ADM Date: 11/26/24 Loc: CT Room: Type: [facility] Attending Dr: Derrek Rodgers MD Copies to: [...] Jr., DBrandenOBranden 11/26/2024 3:27 PM Dictation Location: [place] [address] Transcribed By: [facility] 11/26/24 1527 Dictated By: Gage Noland Jr, DO 11/26/24 1519 Signed By: 11/26/24 1527 Normal [facility] Urine Cultureon 11-18-2024 Bacteria identified Cx Nom (U) ORGANISM: Enterobacter cloacae complex (O:ENTCLOCPLX) [place] Count >100,000 Aerobic LACHELLE Charge (NMIC56) SUSCEPTIBILITY [...] RESISTANT TO ALL B-LACTAM DRUGS. PERFORMED BY: [place] [address] PATHOLOGIST ELECTRO OPTICS ENGINEER LEANDRA WALSH M.D. Normal [facility] Comment on above: Performed By: #### H EMOCHROM, HAAB, HCBIGM, HCV RX PCR, HAABT, HBSAB, HBCAB, HBSAG, CERULOP, MITOM2, AFPTM, ALPHA PHEN, IGG, DYLAN, SMAB, L-K MICRO #### [facility] , #### PT, CMP, KYLE, CBC #### [facility] [address] Urine cultureOrdered By: Wilfrido Muñoz on 11-18-2024 Bacteria identified Cx Nom (U) Abnormal [facility] AFP Tumor Marker, Serumon AFP Tumor Marker, Serum 9.3 ng/mL High 0.0-8.4 [facility] Comment on above: Result Comment: [facility] [employer] Electrochemiluminescence Immunoassay (ECLIA) Values obtained with different assay methods or kits cannot be used interchangeably. Results cannot be interpreted as absolute evidence of the presence or absence of malignant disease. This test is not interpretable in females. Performed at: [address] [id number] Pattern Attendant: Stewart Palmer PhD, Phone: [phone] Performed By: #### H EMOCHROM, HAAB, HCBIGM, HCV RX PCR, HAABT, HBSAB, HBCAB, HBSAG, CERULOP, MITOM2, AFPTM, ALPHA PHEN, IGG, DYLAN, SMAB, L-K MICRO ####[facility] ,#### PT, CMP, KYLE, CBC ####[facility] Qda[address] DYLAN Antinuclear Antibodieson 11-05-2024 Antinuclear Abs, IFA Negative Normal . [facility] Comment on above: Result Comment: Nega tive <1:80 Borderline 1:80 Positive >1:80 ICAP nomenclature: AC-0 For more information about Hep-2 cell patterns use ANApatterns.org, the official website for the International Consensus on Antinuclear Antibody (DYLAN) Patterns (ICAP). Performed at: - [facility] [address] [id number] Pattern Attendant: Stewart Palmer PhD, Phone: [phone] Performed By: #### H EMOCHROM, HAAB, HCBIGM, HCV RX PCR, HAABT, HBSAB, HBCAB, HBSAG, CERULOP, MITOM2, AFPTM, ALPHA PHEN, IGG, DYLAN, SMAB, L-K MICRO ####[facility] ,#### PT, CMP, KYLE, CBC ####[facility] [id number] Actin smooth muscle IgG Ab [ Units/volume] in SerumOrdered By: Immatthew Rodgers on 11-05-2024 Actin smooth muscle IgG Qn (S) Actin smooth muscle IgG Ab [Units/volume] in Serum 0-19 [facility] Comment on above: Negative 0 - [...] activity/volume] in Serum or Plasma High 7-52 [facility] Albumin [Mass/volume] in Ser um or Plasma by Bromocresol green (BCG) dye binding methoOrdered By: Imad Asaad on 11-05-2024 Albumin BCG dye [Mass/Vol] Albumin [Mass/volume] in Serum or Plasma by Bromocresol green (BCG) dye binding metho Low 3.5-5.7 [facility] Alkaline phosphatase [Enzyma tic activity/volume] in Serum or PlasmaOrdered By: Imad Asaad on 11-05-2024 ALP [Catalytic activity/Vol] Alkaline phosphatase [Enzymatic activity/volume] in Serum or Plasma High 34-104 [facility] Jxjgy-0-Qthotczsezd Phenotyp gonzales 11-05-2024 Alpha 1 Anti-Trypsin 104 mg/dL Normal 101-187 [facility] Comment on above: Performed By: #### H EMOCHROM, HAAB, HCBIGM, HCV RX PCR, HAABT, HBSAB, HBCAB, HBSAG, CERULOP, MITOM2, AFPTM, ALPHA PHEN, IGG, DYLAN, SMAB, L-K MICRO ####[facility] ,#### PT, CMP, KYLE, CBC ####[facility] Phenotype (P1) MS Normal . [facility] Comment on above: Result Comment: MM Phenotype is considered to be normal , producing normal serum levels of dpxft-6-lqldtbkg inhibitor and not associated with clinical disease. [...] Ranges used to confirm phenotype. Performed at: [facility] [address] [id number] Pattern Attendant: Stewart Palmer PhD, Phone: [phone] Performed at: [facility] [address] [id number] Pattern Attendant: Beto Vincent MD, Phone: [phone] Performed By: #### H EMOCHROM, HAAB, HCBIGM, HCV RX PCR, HAABT, HBSAB, HBCAB, HBSAG, CERULOP, MITOM2, AFPTM, ALPHA PHEN, IGG, DYLAN, SMAB, L-K MICRO ####[facility] ,#### PT, CMP, KYLE, CBC ####[facility] Snn[address] [place] [id number] [facility] Aspartate aminotransferase [ Enzymatic activity/volume] in Serum or PlasmaOrdered By: Imad Asaad on 11-05-2024 AST [Catalytic activity/Vol] Aspartate aminotransferase [Enzymatic activity/volume] in Serum or Plasma High 13-39 [facility] Basophils Auto (Bld) [#/Vol] Ordered By: Imad Asaad on 11-05-2024 Basophils (Bld) [#/Vol] Automated basophil count 0.0-0.2 [facility] Basophils/100 WBC Auto (Bld) Ordered By: Imad Asaad on 11-05-2024 Basophils/100 WBC (Bld) Automated basophil % . [facility] Bilirubin.total [Mass/volume ] in Serum or PlasmaOrdered By: Imad Asaad on 11-05-2024 Bilirubin [Mass/Vol] Bilirubin.total [Mass/volume] in Serum or Plasma High 0.3-1.0 [facility] Comment on above: Samples from patient [...] mutations identification by molecular genetics method . [facility] Comment on above: Result:c.845G>A (p.C ka009Alz) - Not Detectedc.187C>G (p.Exh48Plx) - Not Detectedc.193A>T (p.Mjq64Emb) - Not DetectedNot associated with increased risk [...] recommended for patientswho are homozygous for c.845G>A (p.Dpu839Eqk) and have yetto experience clinical symptoms.Comments:The most common HFE variants associated with hereditaryhemochromatosis are c.845G>A (p.Yoq608Tpg), c.187C>G(p.Zzs88Uqt), c.193A>T (p.Ari96Iwx). While patientshomozygous for c.845G>A (p.Maj410Dks) are the most likelyto present clinical symptoms, less than 10% developclinically significant iron overload with tissue and organdamage.Genetic counseling is recommended to discuss the potentialclinical implications of positive results, as well asrecommendations for testing family members.Genetic Coordinators are available for health careproviders to discuss results at [phone] Details:Three variants analyzed:c.845G>A (p.Lpy675Odz), commonly referred to as C282Yc.187C>G (p.Kqm44Mbi), commonly referred to as H63Dc.193A>T (p.Hjl04Wgv), commonly referred to as C55FGpxyjxv/Limitations:DNA Analysis of the HFE gene (NM_[id number]) was [...] Vel PC, Art KV, Wai LW, Nate ;[employer] Liver [employer].Diagnosis and management of hemochromatosis: 2011 practiceguideline by the [employer] the [employer] ofLiver Diseases. Hepatology. 2010;54(1):328-43. doi:10.1002/hep.60642. PMID: 18775977; PMCID: BAZ9648796.Nigel G, Clay P, Fatoumata DW, Mervat H, Juan O,Alex S, Raulito I, Marv M, Jimbo S. QN best practiceguidelines for the molecular genetic diagnosis ofhereditary hemochromatosis (HH). Eur J Hum Neelima. 2016Apr;24(4):479-95. doi: 10.1038/ejhg.2015.128. Epub 2014. PMID: 97852473; PMCID: XFG7666635. Calcium [Mass/volume] in Ser um or PlasmaOrdered By: Derrek Rodgers on 11-05-2024 Calcium [Mass/Vol] Calcium [Mass/volume ] in Serum or Plasma 8.6-10.3 [facility] Carbon dioxide, total [Moles /volume] in Serum or PlasmaOrdered By: Immatthew Asaad on 11-05-2024 CO2 [Moles/Vol] Carbon dioxide, tota l [Moles/volume] in Serum or Plasma 21.0-31.0 [facility] Ceruloplasminon 11-05-2024 Ceruloplasmin 19.1 mg/dL Normal 16.0-31.0 [facility] Comment on above: Result Comment: Perf ormed at: - [facility] [address] [id number] Pattern Attendant: Stewart Palmer PhD, Phone: [phone] PERFORMED BY: [address] [place] [address] PATHOLOGIST ELECTRO OPTICS ENGINEER LEANDRA WALSH M.D. Performed By: #### H EMOCHROM, HAAB, HCBIGM, HCV RX PCR, HAABT, HBSAB, HBCAB, HBSAG, CERULOP, MITOM2, AFPTM, ALPHA PHEN, IGG, DYLAN, SMAB, L-K MICRO ####[facility] ,#### PT, CMP, KYLE, CBC ####[place] [address] [address] Chloride [Moles/volume] in S saud or PlasmaOrdered By: Derrek Rodgers on 11-05-2024 Chloride [Moles/Vol] Chloride [Moles/vol ume] in Serum or Plasma 98-107 [facility] Complete Blood Count Auto Di ffon 11-05-2024 Basophils (Bld) [#/Vol] 0.0 10*3/uL Normal 0.0-0.2 [facility] Comment on above: Result Comment: PERF ORMED BY: [place] [address] PATHOLOGIST ELECTRO OPTICS ENGINEER LEANDRA WALSH M.D. Performed By: #### H EMOCHROM, HAAB, HCBIGM, HCV RX PCR, HAABT, HBSAB, HBCAB, HBSAG, CERULOP, MITOM2, AFPTM, ALPHA PHEN, IGG, DYLAN, SMAB, L-K MICRO #### [facility] , #### PT, CMP, KYLE, CBC #### [address] Basophils/100 WBC (Bld) 0.7 % Normal . [facility] Comment on above: Performed By: #### H EMOCHROM, HAAB, HCBIGM, HCV RX PCR, HAABT, HBSAB, HBCAB, HBSAG, CERULOP, MITOM2, AFPTM, ALPHA PHEN, IGG, DYLAN, SMAB, L-K MICRO #### [facility] , #### PT, CMP, KYLE, CBC #### [place] [address] Eosinophils (Bld) [#/Vol] 0.1 10*3/uL Normal 0.0-0.45 [facility] Comment on above: Performed By: #### H EMOCHROM, HAAB, HCBIGM, HCV RX PCR, HAABT, HBSAB, HBCAB, HBSAG, CERULOP, MITOM2, AFPTM, ALPHA PHEN, IGG, DYLAN, SMAB, L-K MICRO #### [facility] , #### PT, CMP, KYLE, CBC #### [address] Eosinophils/100 WBC (Bld) 1.8 % Normal . [facility] Comment on above: Performed By: #### H EMOCHROM, HAAB, HCBIGM, HCV RX PCR, HAABT, HBSAB, HBCAB, HBSAG, CERULOP, MITOM2, AFPTM, ALPHA PHEN, IGG, DYLAN, SMAB, L-K MICRO #### [facility] , #### PT, CMP, KYLE, CBC #### [address] Erythrocyte distribution width (RBC) [Ratio] 19.0 % High 12.0-14.8 [facility] Comment on above: Performed By: #### H EMOCHROM, HAAB, HCBIGM, HCV RX PCR, HAABT, HBSAB, HBCAB, HBSAG, CERULOP, MITOM2, AFPTM, ALPHA PHEN, IGG, DYLAN, SMAB, L-K MICRO #### [facility] , #### PT, CMP, KYLE, CBC #### [address] Hematocrit (Bld) [Volume fraction] 37.3 % Low 38.8-50.0 [facility] Comment on above: Performed By: #### H EMOCHROM, HAAB, HCBIGM, HCV RX PCR, HAABT, HBSAB, HBCAB, HBSAG, CERULOP, MITOM2, AFPTM, ALPHA PHEN, IGG, DYLAN, SMAB, L-K MICRO #### [facility] , #### PT, CMP, KYLE, CBC #### [address] Hemoglobin (Bld) [Mass/Vol] 12.7 g/dL Low 13.0-17.0 [facility] Comment on above: Performed By: #### H EMOCHROM, HAAB, HCBIGM, HCV RX PCR, HAABT, HBSAB, HBCAB, HBSAG, CERULOP, MITOM2, AFPTM, ALPHA PHEN, IGG, DYLAN, SMAB, L-K MICRO #### [facility] , #### PT, CMP, KYLE, CBC #### [address] Lymphocytes (Bld) [#/Vol] 0.8 10*3/uL Low 1.00-4.8 [facility] Comment on above: Performed By: #### H EMOCHROM, HAAB, HCBIGM, HCV RX PCR, HAABT, HBSAB, HBCAB, HBSAG, CERULOP, MITOM2, AFPTM, ALPHA PHEN, IGG, DYLAN, SMAB, L-K MICRO #### [facility] , #### PT, CMP, KYLE, CBC #### [address] Lymphocytes/100 WBC (Bld) 11.1 % Normal . [facility] Comment on above: Performed By: #### H EMOCHROM, HAAB, HCBIGM, HCV RX PCR, HAABT, HBSAB, HBCAB, HBSAG, CERULOP, MITOM2, AFPTM, ALPHA PHEN, IGG, DYLAN, SMAB, L-K MICRO #### [facility] , #### PT, CMP, KYLE, CBC #### [address] MCH (RBC) [Entitic mass] 34.2 pg Normal 27.5-35.2 [facility] Comment on above: Performed By: #### H EMOCHROM, HAAB, HCBIGM, HCV RX PCR, HAABT, HBSAB, HBCAB, HBSAG, CERULOP, MITOM2, AFPTM, ALPHA PHEN, IGG, DYLAN, SMAB, L-K MICRO #### [facility] , #### PT, CMP, KYLE, CBC #### [address] MCV (RBC) [Entitic vol] 100.9 fL Normal 83.5-101 [facility] Comment on above: Performed By: #### H EMOCHROM, HAAB, HCBIGM, HCV RX PCR, HAABT, HBSAB, HBCAB, HBSAG, CERULOP, MITOM2, AFPTM, ALPHA PHEN, IGG, DYLAN, SMAB, L-K MICRO #### [facility] , #### PT, CMP, KYLE, CBC #### [address] Mean Corpuscular HGB Conc 33.9 g/dL Normal 32.5-35.6 [facility] Comment on above: Performed By: #### H EMOCHROM, HAAB, HCBIGM, HCV RX PCR, HAABT, HBSAB, HBCAB, HBSAG, CERULOP, MITOM2, AFPTM, ALPHA PHEN, IGG, DYLAN, SMAB, L-K MICRO #### [facility] , #### PT, CMP, KYLE, CBC #### [address] Monocytes (Bld) [#/Vol] 0.5 10*3/uL Normal 0.0-0.8 [facility] Comment on above: Performed By: #### H EMOCHROM, HAAB, HCBIGM, HCV RX PCR, HAABT, HBSAB, HBCAB, HBSAG, CERULOP, MITOM2, AFPTM, ALPHA PHEN, IGG, DYLAN, SMAB, L-K MICRO #### [facility] , #### PT, CMP, KYLE, CBC #### [address] Monocytes/100 WBC (Bld) 7.8 % Normal . [facility] Comment on above: Performed By: #### H EMOCHROM, HAAB, HCBIGM, HCV RX PCR, HAABT, HBSAB, HBCAB, HBSAG, CERULOP, MITOM2, AFPTM, ALPHA PHEN, IGG, DYLAN, SMAB, L-K MICRO #### [facility] , #### PT, CMP, KYLE, CBC #### [address] Neutrophils (Bld) [#/Vol] 5.4 10*3/uL Normal 1.8-7.7 [facility] Comment on above: Performed By: #### H EMOCHROM, HAAB, HCBIGM, HCV RX PCR, HAABT, HBSAB, HBCAB, HBSAG, CERULOP, MITOM2, AFPTM, ALPHA PHEN, IGG, DYLAN, SMAB, L-K MICRO #### [facility] , #### PT, CMP, KYLE, CBC #### [address] Neutrophils/100 WBC (Bld) 78.6 % Normal . [facility] Comment on above: Performed By: #### H EMOCHROM, HAAB, HCBIGM, HCV RX PCR, HAABT, HBSAB, HBCAB, HBSAG, CERULOP, MITOM2, AFPTM, ALPHA PHEN, IGG, DYLAN, SMAB, L-K MICRO #### [facility] , #### PT, CMP, KYLE, CBC #### [address] NRBC% 0.1 /100{WBC} Normal 0-0.5 [facility] Comment on above: Performed By: #### H EMOCHROM, HAAB, HCBIGM, HCV RX PCR, HAABT, HBSAB, HBCAB, HBSAG, CERULOP, MITOM2, AFPTM, ALPHA PHEN, IGG, DYLAN, SMAB, L-K MICRO #### [facility] , #### PT, CMP, KYLE, CBC #### [address] Platelet mean volume (Bld) [Entitic vol] 7.9 fL Normal 6.6-10.1 [facility] Comment on above: Performed By: #### H EMOCHROM, HAAB, HCBIGM, HCV RX PCR, HAABT, HBSAB, HBCAB, HBSAG, CERULOP, MITOM2, AFPTM, ALPHA PHEN, IGG, DYLAN, SMAB, L-K MICRO #### [facility] , #### PT, CMP, KYLE, CBC #### [address] Platelets (Bld) [#/Vol] 172 10*3/uL Normal 150-450 [facility] Comment on above: Performed By: #### H EMOCHROM, HAAB, HCBIGM, HCV RX PCR, HAABT, HBSAB, HBCAB, HBSAG, CERULOP, MITOM2, AFPTM, ALPHA PHEN, IGG, DYLAN, SMAB, L-K MICRO #### [facility] , #### PT, CMP, KYLE, CBC #### [address] RBC (Bld) [#/Vol] 3.70 10*6/uL Low 3.90-5.60 [facility] Comment on above: Performed By: #### H EMOCHROM, HAAB, HCBIGM, HCV RX PCR, HAABT, HBSAB, HBCAB, HBSAG, CERULOP, MITOM2, AFPTM, ALPHA PHEN, IGG, DYLAN, SMAB, L-K MICRO #### [facility] , #### PT, CMP, KYLE, CBC #### [address] WBC (Bld) [#/Vol] 6.8 10*3/uL Normal 4.1-10.5 [facility] Comment on above: Performed By: #### H EMOCHROM, HAAB, HCBIGM, HCV RX PCR, HAABT, HBSAB, HBCAB, HBSAG, CERULOP, MITOM2, AFPTM, ALPHA PHEN, IGG, DYLAN, SMAB, L-K MICRO #### [facility] , #### PT, CMP, KYLE, CBC #### [address] Comprehensive Metabolic Pane levy 11-05-2024 Albumin [Mass/Vol] 2.1 g/dL Low 3.5-5.7 [facility] Comment on above: Performed By: #### H EMOCHROM, HAAB, HCBIGM, HCV RX PCR, HAABT, HBSAB, HBCAB, HBSAG, CERULOP, MITOM2, AFPTM, ALPHA PHEN, IGG, DYLAN, SMAB, L-K MICRO #### [facility] , #### PT, CMP, KYLE, CBC #### [address] Albumin/Globulin [Mass ratio] 0.6 {ratio} Normal [facility] Comment on above: Performed By: #### H EMOCHROM, HAAB, HCBIGM, HCV RX PCR, HAABT, HBSAB, HBCAB, HBSAG, CERULOP, MITOM2, AFPTM, ALPHA PHEN, IGG, DYLAN, SMAB, L-K MICRO #### [facility] , #### PT, CMP, KYLE, CBC #### [address] ALP [Catalytic activity/Vol] 245 U/L High 34-104 [facility] Comment on above: Performed By: #### H EMOCHROM, HAAB, HCBIGM, HCV RX PCR, HAABT, HBSAB, HBCAB, HBSAG, CERULOP, MITOM2, AFPTM, ALPHA PHEN, IGG, DYLAN, SMAB, L-K MICRO #### [facility] , #### PT, CMP, KYLE, CBC #### [address] ALT [Catalytic activity/Vol] 86 U/L High 7-52 [facility] Comment on above: Performed By: #### H EMOCHROM, HAAB, HCBIGM, HCV RX PCR, HAABT, HBSAB, HBCAB, HBSAG, CERULOP, MITOM2, AFPTM, ALPHA PHEN, IGG, DYLAN, SMAB, L-K MICRO #### [facility] , #### PT, CMP, KYLE, CBC #### [address] Anion gap [Moles/Vol] 10.5 mmol/L Normal 6.0-15.0 [facility] Comment on above: Performed By: #### H EMOCHROM, HAAB, HCBIGM, HCV RX PCR, HAABT, HBSAB, HBCAB, HBSAG, CERULOP, MITOM2, AFPTM, ALPHA PHEN, IGG, DYLAN, SMAB, L-K MICRO #### [facility] , #### PT, CMP, KYLE, CBC #### [address] AST [Catalytic activity/Vol] 77 U/L High 13-39 [facility] Comment on above: Performed By: #### H EMOCHROM, HAAB, HCBIGM, HCV RX PCR, HAABT, HBSAB, HBCAB, HBSAG, CERULOP, MITOM2, AFPTM, ALPHA PHEN, IGG, DYLAN, SMAB, L-K MICRO #### [facility] , #### PT, CMP, KYLE, CBC #### [address] Bilirubin [Mass/Vol] 3.2 mg/dL High 0.3-1.0 [facility] Comment on above: Result Comment: [...] , #### PT, CMP, KYLE, CBC #### [address] Calcium [Mass/Vol] 8.9 mg/dL Normal 8.6-10.3 [facility] Comment on above: Performed By: #### H EMOCHROM, HAAB, HCBIGM, HCV RX PCR, HAABT, HBSAB, HBCAB, HBSAG, CERULOP, MITOM2, AFPTM, ALPHA PHEN, IGG, DYLAN, SMAB, L-K MICRO #### [facility] , #### PT, CMP, KYLE, CBC #### [address] Chloride [Moles/Vol] 100 mmol/L Normal 98-107 [facility] Comment on above: Performed By: #### H EMOCHROM, HAAB, HCBIGM, HCV RX PCR, HAABT, HBSAB, HBCAB, HBSAG, CERULOP, MITOM2, AFPTM, ALPHA PHEN, IGG, DYLAN, SMAB, L-K MICRO #### [facility] , #### PT, CMP, KYLE, CBC #### [address] CO2 [Moles/Vol] 28.4 mmol/L Normal 21.0-31.0 [facility] Comment on above: Performed By: #### H EMOCHROM, HAAB, HCBIGM, HCV RX PCR, HAABT, HBSAB, HBCAB, HBSAG, CERULOP, MITOM2, AFPTM, ALPHA PHEN, IGG, DYLAN, SMAB, L-K MICRO #### [facility] , #### PT, CMP, KYLE, CBC #### [address] Creatinine [Mass/Vol] 1.18 mg/dL Normal 0.70-1.30 [facility] Comment on above: Performed By: #### H EMOCHROM, HAAB, HCBIGM, HCV RX PCR, HAABT, HBSAB, HBCAB, HBSAG, CERULOP, MITOM2, AFPTM, ALPHA PHEN, IGG, DYLAN, SMAB, L-K MICRO #### [facility] , #### PT, CMP, KYLE, CBC #### [address] GFR/1.73 sq M.predicted MDRD (S/P/Bld) [Vol rate/Area] mL/min/{1.73_m2} Normal [facility] Comment on above: Performed By: #### H EMOCHROM, HAAB, HCBIGM, HCV RX PCR, HAABT, HBSAB, HBCAB, HBSAG, CERULOP, MITOM2, AFPTM, ALPHA PHEN, IGG, DYLAN, SMAB, L-K MICRO #### [facility] , #### PT, CMP, KYLE, CBC #### [address] Globulin (S) [Mass/Vol] 3.3 g/dL Normal [facility] Comment on above: Performed By: #### H EMOCHROM, HAAB, HCBIGM, HCV RX PCR, HAABT, HBSAB, HBCAB, HBSAG, CERULOP, MITOM2, AFPTM, ALPHA PHEN, IGG, DYLAN, SMAB, L-K MICRO #### [facility] , #### PT, CMP, KYLE, CBC #### [address] Glucose [Mass/Vol] 215 mg/dL High 70-100 [facility] Comment on above: Result Comment: [place] Glucose Reference Range is dependent on time [...] , #### PT, CMP, KYLE, CBC #### [address] Potassium [Moles/Vol] 4.9 mmol/L Normal 3.5-5.1 [facility] Comment on above: Performed By: #### H EMOCHROM, HAAB, HCBIGM, HCV RX PCR, HAABT, HBSAB, HBCAB, HBSAG, CERULOP, MITOM2, AFPTM, ALPHA PHEN, IGG, DYLAN, SMAB, L-K MICRO #### [facility] , #### PT, CMP, KYLE, CBC #### [address] Protein [Mass/Vol] 5.4 g/dL Low 6.4-8.9 [facility] Comment on above: Performed By: #### H EMOCHROM, HAAB, HCBIGM, HCV RX PCR, HAABT, HBSAB, HBCAB, HBSAG, CERULOP, MITOM2, AFPTM, ALPHA PHEN, IGG, DYLAN, SMAB, L-K MICRO #### [facility] , #### PT, CMP, KYLE, CBC #### [address] Sodium [Moles/Vol] 134 mmol/L Low 136-145 [facility] Comment on above: Performed By: #### H EMOCHROM, HAAB, HCBIGM, HCV RX PCR, HAABT, HBSAB, HBCAB, HBSAG, CERULOP, MITOM2, AFPTM, ALPHA PHEN, IGG, DYLAN, SMAB, L-K MICRO #### [facility] , #### PT, CMP, KYLE, CBC #### [address] Urea nitrogen [Mass/Vol] 28 mg/dL High 7-25 [facility] Comment on above: Performed By: #### H EMOCHROM, HAAB, HCBIGM, HCV RX PCR, HAABT, HBSAB, HBCAB, HBSAG, CERULOP, MITOM2, AFPTM, ALPHA PHEN, IGG, DYLAN, SMAB, L-K MICRO #### [facility] , #### PT, CMP, KYLE, CBC #### [facility] [address] [place] [address] Creatinine [Mass/volume] in Serum or PlasmaOrdered By: Imad Asaad on 11-05-2024 Creatinine [Mass/Vol] Creatinine [Mass/v olume] in Serum or Plasma 0.70-1.30 [facility] Eosinophils Auto (Bld) [#/Vo l]Ordered By: Imad Asaad on 11-05-2024 Eosinophils (Bld) [#/Vol] Automated eosinophil count 0.0-0.45 [facility] Eosinophils/100 WBC Auto (Bl d)Ordered By: Imad Asaad on 11-05-2024 Eosinophils/100 WBC (Bld) Automated eosinophil % . [facility] Erythrocyte distribution wid th Auto (RBC) [Ratio]Ordered By: Imad Asaad on 11-05-2024 Erythrocyte distribution width (RBC) [Ratio] Erythrocyte distribution width [Ratio] by Automated count High 12.0-14.8 [facility] Ferritinon 11-05-2024 Ferritin [Mass/Vol] 1486.4 ng/mL High 23.9-336.2 [facility] Comment on above: Result Comment: PERF ORMED BY: [place] [address] PATHOLOGIST [employer]INE[employer] LEANDRA WALSH M.D. Performed By: #### H EMOCHROM, HAAB, HCBIGM, HCV RX PCR, HAABT, HBSAB, HBCAB, HBSAG, CERULOP, MITOM2, AFPTM, ALPHA PHEN, IGG, DYLAN, SMAB, L-K MICRO #### [facility] , #### PT, CMP, KYLE, CBC #### [address] Ferritin [Mass/volume] in Se rum or PlasmaOrdered By: Imad Asaad on 11-05-2024 Ferritin [Mass/Vol] Ferritin [Mass/volum e] in Serum or Plasma High 23.9-336.2 [facility] Globulin Calc (S) [Mass/Vol] Ordered By: matthew [facility] on 11-05-2024 Globulin (S) [Mass/Vol] Serum globulin measurement by calculation (mass/volume) [facility] Glucose [Mass/volume] in Ser um or PlasmaOrdered By: matthew [facility] Glucose [Mass/Vol] Glucose [Mass/volume ] in Serum or Plasma High 70-100 [facility] Comment on above: ADA recommended refe rence rangeRandom Glucose Reference Range is dependent on time and content of last meal. Glucose of more than 200 mg/dL in a nonstressed, ambulatory subject supports the diagnosis of Diabetes Mellitus. Hematocrit Auto (Bld) [Volum e fraction]Ordered By: matthew [facility] on 11-05-2024 Hematocrit (Bld) [Volume fraction] Hematocrit [Volume Fraction] of Blood by Automated count Low 38.8-50.0 [facility] Hemoglobin [Mass/volume] in BloodOrdered By: [facility] on 11-05-2024 Hemoglobin (Bld) [Mass/Vol] Hemoglobin [Mass/volume] in Blood Low 13.0-17.0 [facility] Hep C Ab wRfx to Qnt PCRon 0 11-05-2024 Hepatitis C Virus Antibody Non-Reactive Normal Non Reactive [facility] Comment on above: Performed By: #### H EMOCHROM, HAAB, HCBIGM, HCV RX PCR, HAABT, HBSAB, HBCAB, HBSAG, CERULOP, MITOM2, AFPTM, ALPHA PHEN, IGG, DYLAN, SMAB, L-K MICRO #### [facility] , #### PT, CMP, KYLE, CBC #### [facility] [address] Interpretation Hepatitis C Comment Normal . [facility] Comment on above: Result Comment: [...] , #### PT, CMP, KYLE, CBC #### [facility] [address] Hepatitis A Antibody IgMon 0 11-05-2024 Hepatitis A Antibody IgM Negative Normal Negative [facility] Comment on above: Result Comment: A ne gative anti-HAV IgM result suggests no recent or current HAV infection. Performed By: #### H EMOCHROM, HAAB, HCBIGM, HCV RX PCR, HAABT, HBSAB, HBCAB, HBSAG, CERULOP, MITOM2, AFPTM, ALPHA PHEN, IGG, DYLAN, SMAB, L-K MICRO #### [facility] , #### PT, CMP, KYLE, CBC #### [address] Hepatitis A Antibody Totalon 11-05-2024 Hepatitis A Antibody Total Negative Normal Negative [facility] Comment on above: Result Comment: [...] total antibody results to IgM (e.g., panel #[id number] HAV Antibody w/ Rfx). Performed By: #### H EMOCHROM, HAAB, HCBIGM, HCV RX PCR, HAABT, HBSAB, HBCAB, HBSAG, CERULOP, MITOM2, AFPTM, ALPHA PHEN, IGG, DYLAN, SMAB, L-K MICRO #### [facility] , #### PT, CMP, KYLE, CBC #### [address] Hepatitis A virus Ab [Presen ce] in Serum by ImmunoassayOrdered By: Derrek Rodgers on 04-10-2025 HAV Ab IA Ql (S) Hepatitis A virus Ab [Presence] in Serum by Immunoassay Negative [facility] Comment on above: Comment: The HAV [...] HAVtotal antibody results to IgM (e.g., panel #[id number] HAVAntibody w/ Rfx). Hepatitis A virus IgM antibo dy assayOrdered By: Derrek Rodgers on 11-05-2024 Hepatitis A IgM Antibody Negative Negative [facility] Comment on above: A negative anti-HAV IgM result suggests no recent orcurrent HAV infection. Hepatitis B Core Antibodyon 11-05-2024 Hepatitis B Core Antibody Negative Normal Negative [facility] Comment on above: Performed By: #### H EMOCHROM, HAAB, HCBIGM, HCV RX PCR, HAABT, HBSAB, HBCAB, HBSAG, CERULOP, MITOM2, AFPTM, ALPHA PHEN, IGG, DYLAN, SMAB, L-K MICRO ####[facility] ,#### PT, CMP, KYLE, CBC ####[facility] [id number] [place] [address] [place] Hepatitis B Core Antibody Ig Mon 11-05-2024 Hepatitis B Core Antibody IgM Negative Normal Negative [facility] Comment on above: Result Comment: Perf ormed at: CB - [facility] [address] [id number] Pattern Attendant: Stewart Palmer PhD, Phone: [phone] Performed By: #### H EMOCHROM, HAAB, HCBIGM, HCV RX PCR, HAABT, HBSAB, HBCAB, HBSAG, CERULOP, MITOM2, AFPTM, ALPHA PHEN, IGG, DYLAN, SMAB, L-K MICRO #### [facility] , #### PT, CMP, KYLE, CBC #### [facility] [address] [place] [address] Hepatitis B Surface Antibody on 11-05-2024 Hepatitis B Surface Antibody Non-Reactive Normal . [facility] Comment on above: Result Comment: [...] MICRO ####[facility] ,#### PT, CMP, KYLE, CBC ####[place] [id number] [address] Hepatitis B Surface Antigeno n 11-05-2024 HBsAg Screen Negative Normal Negative [facility] Comment on above: Result Comment: PERF ORMED BY: [facility] [address] [place] [address] PATHOLOGIST ELECTRO OPTICS ENGINEER LEANDRA WALSH M.D. Performed By: #### H EMOCHROM, HAAB, HCBIGM, HCV RX PCR, HAABT, HBSAB, HBCAB, HBSAG, CERULOP, MITOM2, AFPTM, ALPHA PHEN, IGG, DYLAN, SMAB, L-K MICRO ####[facility] ,#### PT, CMP, KYLE, CBC ####[address] Hepatitis B virus core IgM a ntibody assayOrdered By: Derrek Rodgers on 11-05-2024 Hepatitis B Core IgM Antibody Negative Negative [facility] Comment on above: Performed at: [facility] Amber quan [address] [id number] Director: Stewart Palmer PhD, Phone: [phone] Hepatitis B virus core antib sarai assayOrdered By: Derrek Rodgers on 11-05-2024 Hepatitis B Core Total Antibody Negative Negative [facility] Hepatitis C virus IgG Ab [Pr esence] in Serum or Plasma by ImmunoassayOrdered By: Derrek Rodgers on 11-05-2024 HCV IgG IA Ql Hepatitis C virus Ig G Ab [Presence] in Serum or Plasma by Immunoassay Non Reactive [facility] Hereditary Hemochromatosis,Day Stovall 11-05-2024 Hereditary Hemochromatosis Comment Normal . [facility] Comment on above: Result Comment: Resu lt: c.845G>A (p.Icy577Nro) - Not Detected c.187C>G (p.Xbv42Zko) - Not Detected c.193A>T (p.Eij58Rag) - Not Detected Not associated with increased [...] for patients who are homozygous for c.845G>A (p.Zzj890Jux) and have yet to experience clinical symptoms. Comments: The most common HFE variants associated with hereditary hemochromatosis are c.845G>A (p.Ahr370Vus), c.187C>G (p.Lak58Mqr), c.193A>T (p.Yck07Jvi). While patients homozygous for c.845G>A (p.Vax527Gll) are the most likely to present clinical symptoms, less than 10% develop clinically significant iron overload with tissue and organ damage. Genetic counseling is recommended to discuss the potential clinical implications of positive results, as well as recommendations for testing family members. Genetic Coordinators are available for health care providers to discuss results at [phone] Test Details: Three variants analyzed: c.845G>A (p.Xce676Txh), commonly referred to as C282Y c.187C>G (p.Hhr06Psg), commonly referred to as H63D c.193A>T (p.Asj33Qqh), commonly referred to as S65C Methods/Limitations: DNA [...] developed and its performance characteristics determined by [employer]. It has not been cleared or approved by the Food and Drug Administration. References: Rafa BR, Vel PC, Art KV, Wai LW, Nate ; [employer]. Diagnosis and management of hemochromatosis: 2011 practice guideline by the [employer]. Hepatology. 2010;54(1):328-43. doi: 10.1002/hep.12341. PMID: 24715244; PMCID: TWR6451260. Nigel G, Clay P, Fatoumata DW, Mervat H, Juan O, Alex S, Raulito I, Marv M, Jimbo S. [facility] best practice guidelines for the molecular genetic diagnosis of hereditary hemochromatosis (HH). Eur J Hum [place]. 2016 Oct;24(4):479-95. doi: 10.1038/ejhg.2015.128. Epub 2014Feb 02. PMID: 65755396; PMCID: PBR3301397. Performed By: #### H EMOCHROM, HAAB, HCBIGM, HCV RX PCR, HAABT, HBSAB, HBCAB, HBSAG, CERULOP, MITOM2, AFPTM, ALPHA PHEN, IGG, DYLAN, SMAB, L-K MICRO #### [facility] , #### PT, CMP, KYLE, CBC #### [address] Reviewed by: Comment Normal . [facility] Comment on above: Result Comment: Tech nical Component performed at [facility] RTP Professional Component performed by: Richa Cuba, Ph.D., [facility] Director, Molecular Genetics [address] [place] [address] [place] [address] Performed at: - [facility] RTP [address] [facility], [place] [id number] Pattern Attendant: Daryl Lara [facility], Phone: [phone] PERFORMED BY: [place] [address] PATHOLOGIST ELECTRO OPTICS ENGINEER LEANDRA WALSH M.D. Performed By: #### H EMOCHROM, HAAB, HCBIGM, HCV RX PCR, HAABT, HBSAB, HBCAB, HBSAG, CERULOP, MITOM2, AFPTM, ALPHA PHEN, IGG, DYLAN, SMAB, L-K MICRO #### [facility] , #### PT, CMP, KYLE, CBC #### [address] INR in Platelet poor plasma by Coagulation assayOrdered By: Derrek Rodgers on 11-05-2024 INR Coag (PPP) [Relative time] INR in Platelet poor plasma by Coagulation assay [facility] Comment on above: INR Therapeutic Rang [...] Immunoglobulin G 1263 mg/dL Normal 603-1613 [facility] Comment on above: Result Comment: Perf ormed at: - [facility] [id number] Pattern Attendant: Stewart Palmer PhD, Phone: [phone] Performed By: #### H EMOCHROM, HAAB, HCBIGM, HCV RX PCR, HAABT, HBSAB, HBCAB, HBSAG, CERULOP, MITOM2, AFPTM, ALPHA PHEN, IGG, DYLAN, SMAB, L-K MICRO ####[facility] ,#### PT, CMP, KYLE, CBC ####[facility] [id number] Leukocytes [#/volume] correc adrián for nucleated erythrocytes in Blood by Automated counOrdered By: Imad Asaad on 11-05-2024 WBC corrected for nucl RBC Auto (Bld) [#/Vol] Leukocytes [#/volume] corrected for nucleated erythrocytes in Blood by Automated coun 4.1-10.5 [facility] Liver-Kidney Microsomal Abon 11-05-2024 Liver-Kidney Microsomal Ab <1.0 Normal 0.0-20.0 [facility] Comment on above: Result Comment: Nega tive 0.0 - 20.0 Equivocal 20.1 - 24.9 Positive >24.9 LKM type 1 antibodies are detected in patients with autoimmune hepatitis type 2 and in up to 8% of patients with chronic HCV infection. Performed at: [facility] [place] [id number] Pattern Attendant: Stewart Palmer PhD, Phone: [phone] Performed By: #### H EMOCHROM, HAAB, HCBIGM, HCV RX PCR, HAABT, HBSAB, HBCAB, HBSAG, CERULOP, MITOM2, AFPTM, ALPHA PHEN, IGG, DYLAN, SMAB, L-K MICRO #### [facility] , #### PT, CMP, KYLE, CBC #### [facility] [address] Lymphocytes Auto (Bld) [#/Vo l]Ordered By: Imad Asaad on 11-05-2024 Lymphocytes (Bld) [#/Vol] Lymphocytes [#/volume] in Blood by Automated count Low 1.00-4.8 [facility] Lymphocytes/100 WBC Auto (Bl d)Ordered By: Imad Asaad on 11-05-2024 Lymphocytes/100 WBC (Bld) Lymphocytes/100 leukocytes in Blood by Automated count . [facility] MCH Auto (RBC) [Entitic mass ]Ordered By: Imad Asaad on 11-05-2024 MCH (RBC) [Entitic mass] MCH [Entitic mass] by Automated count 27.5-35.2 [facility] MCHC Auto (RBC) [Mass/Vol]Or dered By: Imad Asaad on 11-05-2024 MCHC (RBC) [Mass/Vol] MCHC [Mass/volume] by Automated count 32.5-35.6 [facility] MCV Auto (RBC) [Entitic vol] Ordered By: Imad Asaad on 11-05-2024 MCV (RBC) [Entitic vol] MCV [Entitic volume] by Automated count 83.5-101 [facility] Mitochondrial (M2) Antibodyo n 11-05-2024 Mitochondrial (M2) Antibody <20.0 Normal 0.0-20.0 [facility] Comment on above: Result Comment: Nega tive 0.0 - 20.0 Equivocal 20.1 - 24.9 Positive >24.9 Mitochondrial (M2) Antibodies are found in 90-96% of patients with primary biliary cirrhosis. Performed By: #### H EMOCHROM, HAAB, HCBIGM, HCV RX PCR, HAABT, HBSAB, HBCAB, HBSAG, CERULOP, MITOM2, AFPTM, ALPHA PHEN, IGG, DYLAN, SMAB, L-K MICRO ####[facility] ,#### PT, CMP, KYLE, CBC ####[facility] [id number] [place] [id number] [facility] Monocytes Auto (Bld) [#/Vol] Ordered By: Imad Asaad on 11-05-2024 Monocytes (Bld) [#/Vol] Automated blood monocyte count 0.0-0.8 [facility] Monocytes/100 WBC Auto (Bld) Ordered By: Imad Asaad on 11-05-2024 Monocytes/100 WBC (Bld) Automated monocyte % . [facility] Neutrophils Auto (Bld) [#/Vo l]Ordered By: Imad Asaad on 11-05-2024 Neutrophils (Bld) [#/Vol] Neutrophils [#/volume] in Blood by Automated count 1.8-7.7 [facility] Neutrophils/100 WBC Auto (Bl d)Ordered By: Imad Asaad on 11-05-2024 Neutrophils/100 WBC (Bld) Automated neutrophil % . [facility] No Panel InformationOrdered By: Imad Asaad on 11-05-2024 Estimated GFR (CKD-EPI) > 60.0 mL/Min [facility] Hemochromatosis Note Comment . [facility] Comment on above: Technical Component performed at [facility] RTPProfessional Component performed by:Richa Cuba, Ph.D., FACMGDirector, Molecular Kypfsedq[address] [facility] [place] [place] [address]Qdamnasyx at: - [facility] [id number] [place], [place] [id number] Director: Daryl Lara [facility], Phone: [phone] Hepatitis C Interpretation Comment . [facility] Comment on above: Not infected with HC V unless early or acute infection issuspected (which may be delayed in an immunocompromisedindividual), or other evidence exists to indicate HCVinfection. Pharmacy Creatinine Clearance (Chem N/A [facility] Nucleated erythrocytes [Pres ence] in Blood by Automated countOrdered By: Imad Asaad on 11-05-2024 Nucleated RBC Auto Ql (Bld) Nucleated erythrocytes [Presence] in Blood by Automated count 0-0.5 [facility] Platelet mean volume Auto (B ld) [Entitic vol]Ordered By: Imad Asaad on 11-05-2024 Platelet mean volume (Bld) [Entitic vol] Platelet mean volume [Entitic volume] in Blood by Automated count 6.6-10.1 [facility] Platelets Auto (Bld) [#/Vol] Ordered By: Imad Asaad on 11-05-2024 Platelets (Bld) [#/Vol] Platelets [#/volume] in Blood by Automated count 150-450 [facility] Potassium [Moles/volume] in Serum or PlasmaOrdered By: Imad Asaad on 11-05-2024 Potassium [Moles/Vol] Potassium [Moles/v olume] in Serum or Plasma 3.5-5.1 [facility] Protein [Mass/volume] in Ser um or PlasmaOrdered By: Imad Asaad on 11-05-2024 Protein [Mass/Vol] Protein [Mass/volume ] in Serum or Plasma Low 6.4-8.9 [facility] Prothrombin Time INRon 11-05 INR Coag (PPP) [Relative time] 1.2 {INR} Normal [facility] Comment on above: Result Comment: [...] heart valves: 3 - 4.5 PERFORMED BY: [place] [address] PATHOLOGIST ELECTRO OPTICS ENGINEER LEANDRA WALSH M.D. Performed By: #### H EMOCHROM, HAAB, HCBIGM, HCV RX PCR, HAABT, HBSAB, HBCAB, HBSAG, CERULOP, MITOM2, AFPTM, ALPHA PHEN, IGG, DYLAN, SMAB, L-K MICRO #### [facility] , #### PT, CMP, KYLE, CBC #### [facility] [address] [place] [address] PT Coag (PPP) [Time] 13.4 s High 9.0-12.9 [facility] Comment on above: Result Comment: A he matocrit value greater than 55% may lead to inaccurate results in coagulation testing. Patients having hematocrit values >55% require a special collection tube for coagulation studies. Please contact the laboratory at [phone] for redraw instructions. Performed By: #### H EMOCHROM, HAAB, HCBIGM, HCV RX PCR, HAABT, HBSAB, HBCAB, HBSAG, CERULOP, MITOM2, AFPTM, ALPHA PHEN, IGG, DYLAN, SMAB, L-K MICRO #### [facility] , #### PT, CMP, KYLE, CBC #### [facility] [address] [place] [address] Prothrombin time (PT)Ordered By: Derrek Rodgers on 11-05-2024 PT Coag (PPP) [Time] Prothrombin time (PT) High 9.0- 12.9 [facility] Comment on above: A hematocrit value g reater than 55% may lead to inaccurate results in coagulation testing. Patients having hematocrit values >55% require a special collection tube for coagulation studies. Please contact the laboratory at [phone] for redraw instructions. RBC Auto (Bld) [#/Vol]Ordere d By: Immatthew Rodgers on 11-05-2024 RBC (Bld) [#/Vol] Erythrocytes [#/volu me] in Blood by Automated count Low 3.90-5.60 [facility] Serum hepatitis B virus surf jaimie antibody detectionOrdered By: Imad Ana Maria on 11-05-2024 HBV surface Ab Ql (S) Hepatitis B virus surface Ab [Presence] in Serum . [facility] Comment on above: Non Reactive: Not [...] Serum homogeneous pattern antinuclear antibody (DYLAN) titer [facility] Serum mitochondria M2 IgG an tibody assay (units/volume)Ordered By: Imad Ana Maria on 11-05-2024 Mitochondria M2 IgG Qn (S) Serum mitochondria M2 IgG antibody assay (units/volume) 0.0-20.0 [facility] Comment on above: Negative 0.0 - 20.0 Equivocal 20.1 - 24.9 Positive >24.9Mitochondrial (M2) Antibodies are found in 90-96% ofpatients with primary biliary cirrhosis. Serum nuclear antibody titer Ordered By: Imad Ana Maria on 11-05-2024 Nuclear Ab (S) [Titer] Serum nuclear ant ibody titer . [facility] Comment on above: Negative <1:80 Borde rline 1:80 Positive >1:80ICAP nomenclature: AC-0For more information about Hep-2 cell patterns useANApatterns.org, the official website for theInternational Consensus on Antinuclear Antibody (DYLAN)Patterns (ICAP).Performed at: [address], [place] [id number] Director: Stewart Palmer PhD, Phone: [phone] Serum or plasma IgG measurem ent (mass/volume)Ordered By: Derrek Rodgers on 11-05-2024 IgG [Mass/Vol] IgG [Mass/volume] in Serum or Plasma [phone] [facility] Comment on above: Performed at: CB - [facility] [id number] [place], [place] [id number] Director: Stewart Palmer PhD, Phone: [phone] Serum or plasma albumin/glob ulin mass ratioOrdered By: Derrek Rodgers on 11-05-2024 Albumin/Globulin [Mass ratio] Serum or plasma albumin/globulin mass ratio [facility] Serum or plasma alpha 1 anti trypsin measurement (mass/volume)Ordered By: Derrek Rodgers on 11-05-2024 Alpha 1 antitrypsin [Mass/Vol] Serum gruks-5-cwsorrqxjtw measurement 101-187 [facility] Serum or plasma alpha 1 anti trypsin phenotyping identification by immunofixationOrdered By: Derrek Rodgers on 11-05-2024 Alpha 1 antitrypsin phenotyping Immunofixation Nom Serum or plasma alpha 1 antitrypsin phenotyping identification by immunofixation . [facility] Comment on above: MM Phenotype is co nsidered to be normal , producingnormal serum levels of zdeyf-0-pusktxiu inhibitor andnot associated with clinical disease. Associated H6Slalgc serum levels in other phenotypes and theirincidence [...] reference. Ranges used to confirm phenotype.Performed at: [address] [id number] Director: Stewart Palmer PhD, Phone: [phone] at: [facility] [place], [place] [id number] Director: Beto Vincent MD, Phone: [phone] Serum or plasma xzaov-8-dlrm protein tumor marker measurement (mass/volume)Ordered By: Derrek Rodgers on 11-05-2024 AFP.tumor marker [Mass/Vol] Serum or plasma bonhf-2-lulhnybfths tumor marker measurement (mass/volume) High 0.0-8.4 [facility] Comment on above: [facility] El ectrochemiluminescence Immunoassay(ECLIA)Values obtained with different assay methods or kits cannotbe used interchangeably. Results cannot be interpreted asabsolute evidence of the presence or absence of malignantdisease.This test is not interpretable in females.Performed at: [address] [id number] Director: Stewart Palmer PhD, Phone: [phone] Serum or plasma anion gap de terminationOrdered By: Derrek Rodgers on 11-05-2024 Anion gap [Moles/Vol] Serum or plasma an ion gap determination 6.0-15.0 [facility] Serum or plasma ceruloplasmi n measurement (mass/volume)Ordered By: Derrek Rodgers on 11-05-2024 Ceruloplasmin [Mass/Vol] Serum or plasma ceruloplasmin measurement (mass/volume) 16.0-31.0 [facility] Comment on above: Performed at: - [facility] [address] [id number] Director: Stewart Palmer PhD, Phone: [phone] Serum or plasma hepatitis B virus surface antigen detection by immunoassayOrdered By: Derrek Rodgers on 11-05-2024 HBV surface Ag IA Ql Hepatitis B virus s urface Ag [Presence] in Serum or Plasma by Immunoassay Negative [facility] Serum or plasma lipoprotein a measurement (moles/volume)Ordered By: Derrek Rodgers on 11-05-2024 Lipoprotein a [Moles/Vol] Serum or plasma lipoprotein a measurement (moles/volume) 0.0-20.0 [facility] Comment on above: Negative 0.0 - 20.0 Equivocal 20.1 - 24.9 Positive >24.9LKM type 1 antibodies are detected in patients withautoimmune hepatitis type 2 and in up to 8% ofpatients with chronic HCV infection.Performed at: - [facility] [id number] Director: Stewart Palmer PhD, Phone: [phone] Smooth Muscle Antibodyon Smooth Muscle Antibody 4 Normal 0-19 [facility] Comment on above: Result Comment: [...] ####[facility] ,#### PT, CMP, KYLE, CBC ####[facility] [id number] Sodium [Moles/volume] in Ser um or PlasmaOrdered By: Imad Asaad on 11-05-2024 Sodium [Moles/Vol] Sodium [Moles/volume ] in Serum or Plasma Low 136-145 [facility] Urea nitrogen [Mass/volume] in Serum or PlasmaOrdered By: Imad Asaad on 11-05-2024 Urea nitrogen [Mass/Vol] Urea nitrogen [Mass/volume] in Serum or Plasma High 7-25 [facility] WBC Auto (Bld) [#/Vol]Ordere d By: Imad Asaad on 11-05-2024 WBC (Bld) [#/Vol] Leukocytes [#/volume ] in Blood by Automated count 4.1-10.5 [facility] X-ray reportOrdered By: Wally Noland on 11-02-2024 Study report [facility] [address] [place] [address] XRay Report Signed Patient: Gerson Penn MR#: [id number] : 1955 Acct:[id number] Age/Sex: 68 / M ADM Date: 5 Loc: [facility] Room: Type: REG CLI Attending Dr: Geoffrey [...] Noland Jr., DBrandenOBranden11/02/2024 2:57 PM Dictation Location: [place] [address] Transcribed By: [facility] 11/02/24 1457 Dictated By: Gage Noland Jr, DO 11/02/24 1456 Signed By: 11/02/24 1457 [facility] XR elbow LT 2Von 11-02-2024 XR elbow LT 2V [facility] [address] [place] [address] XRay Report Signed Patient: Gerson Penn MR#: [id number] : 1955 Acct:[id number] Age/Sex: 68 / M ADM Date: 11/02/24 Loc: [facility] Room: Type: REG CLI Attending Dr: Geoffrey [...] Noland Jr. DRachid11/02/2024 2:57 PM Dictation Location: [place] [address] Transcribed By: [facility] 11/02/24 1457 Dictated By: Gage Noland Jr, DO 11/02/24 1456 Signed By: 11/02/24 1457 Normal [facility] Urine Cultureon 10-20-2024 Bacteria identified Cx Nom (U) ORGANISM: Enterobacter cloacae complex (O:ENTCLOCPLX) [place] Count >100,000 Aerobic LACHELLE Charge (NMIC56) SUSCEPTIBILITY [...] RESISTANT TO ALL B-LACTAM DRUGS. PERFORMED BY: [address] [place] [address] PATHOLOGIST ELECTRO OPTICS ENGINEER LEANDRA WALSH M.D. Normal [facility] Comment on above: Performed By: #### H EMOCHROM, HAAB, HCBIGM, HCV RX PCR, HAABT, HBSAB, HBCAB, HBSAG, CERULOP, MITOM2, AFPTM, ALPHA PHEN, IGG, DYLAN, SMAB, L-K MICRO #### [facility] , #### PT, CMP, KYLE, CBC #### [facility] [address] Urine cultureOrdered By: Marisol Ren on 10-20-2024 Bacteria identified Cx Nom (U) Abnormal [facility] X-ray reportOrdered By: Steven Rock on 10-07-2024 Study report [facility] [address] [place] [address] XRay Report Signed Patient: Gerson Penn MR#: [id number] : 1955 Acct:[id number] Age/Sex: 68 / M ADM Date: 5 Loc: [facility] Room: Type: [facility] Attending Dr: Geoffrey Ibrahim DO Copies to: [...] Lamont Rock M.D.10/07/2024 2:30 PM Dictation Location: [place] [address] Transcribed By: GODFREY 10/07/24 1430 Dictated By: Lamont Rock MD 10/07/24 1424 Signed By: 10/07/24 1431 [facility] Work Phone: XR elbow LT 2Von 10-07-2024 XR elbow LT 2V [facility] [address] [place] [address] XRay Report Signed Patient: Gerson Penn MR#: [id number] : 1955 Acct:[id number] Age/Sex: 68 / M ADM Date: 10/07/24 Loc: [facility] Room: Type: [facility] CLI Attending Dr: Geoffrey Ibrahim DO [...] Lamont Rock M.D.10/07/2024 2:30 PM Dictation Location: [place] [address] Transcribed By: [facility] 10/07/24 1430 Dictated By: Lamont Rock MD 10/07/24 1429 Signed By: 10/07/24 1430 Normal [facility] Glucose Glucometer (dC) [M ass/Vol]Ordered By: Geoffrey Ibrahim on 09-22-2024 Glucose [Mass/Vol] Capillary blood gluc ose measurement by glucometer (mass/volume) [facility] Comment on above: Random Glucose Refer ence Range is dependent on time and content of last meal. Glucose of more than 200 mg/dL in a nonstressed, ambulatory subject supports the diagnosis of Diabetes Mellitus. Glucose Poct Glucometerson 0 09-22-2024 Commemt1 Glu2: Cleaned Meter Normal [facility] Comment on above: Result Comment: PERF ORMED BY: [facility] [address] [place] [address] PATHOLOGIST [employer]LECTRO [employer] ENGINEER LEANDRA WALSH M.D. Performed By: #### H EMOCHROM, HAAB, HCBIGM, HCV RX PCR, HAABT, HBSAB, HBCAB, HBSAG, CERULOP, MITOM2, AFPTM, ALPHA PHEN, IGG, DYLAN, SMAB, L-K MICRO #### [facility] , #### PT, CMP, KYLE, CBC #### [address] Glucose [Mass/Vol] 115 mg/dL Normal [facility] Comment on above: Result Comment: [place] om Glucose Reference Range is dependent on time and content of last meal. Glucose of more than 200 mg/dL in a nonstressed, ambulatory subject supports the diagnosis of Diabetes Mellitus. Performed By: #### H EMOCHROM, HAAB, HCBIGM, HCV RX PCR, HAABT, HBSAB, HBCAB, HBSAG, CERULOP, MITOM2, AFPTM, ALPHA PHEN, IGG, DYLAN, SMAB, L-K MICRO #### [facility] , #### PT, CMP, KYLE, CBC #### [address] Glucose [Mass/Vol] 126 mg/dL Normal [facility] Comment on above: Result Comment: [place] om Glucose Reference Range is dependent on time and content of last meal. Glucose of more than 200 mg/dL in a nonstressed, ambulatory subject supports the diagnosis of Diabetes Mellitus. PERFORMED BY: [place] [address] PATHOLOGIST ELECTRO [employer] ENGINEER LEANDRA WALSH M.D. Performed By: #### H EMOCHROM, HAAB, HCBIGM, HCV RX PCR, HAABT, HBSAB, HBCAB, HBSAG, CERULOP, MITOM2, AFPTM, ALPHA PHEN, IGG, DYLAN, SMAB, L-K MICRO #### [facility] , #### PT, CMP, KYLE, CBC #### [address] [place] 09-22-2024 L ------- Specimen: [id number] Received: 09/22/24 Status: ARYA Vargas Num: [id number] Spec Type: Surgical Subm Dr: Geoffrey Ibrahim DO Tissues: A Joint/Knee (LEFT ARM BONE AND TISSUE) Procedures: HE/2, Gross/Micro L4, Decalcification Age/ Patient Sex Location Account Attending Physician Gerson Penn 68/M [place] [id number] Geoffrey Ibrahim, DO SPEC NUM: [id number] RECD: 09/22/24 STATUS: ARYA VARGAS NUM: [id number] NAE: 09/22/[address]: Geoffrey Ibrahim DO ENTERED: 09/22/24 [facility] : SPEC TYPE: Surgical DEPT: S [...] medullary bone is cordero, firm and uniform. [employer] sections are submitted in A1?A2 after decalcification in rapid Nicolas immuno. (2, ss, [id number] A)JACK Specimen: [id number] Received: 09/22/24 Status: ARYA Vargas Num: [id number] Spec Type: Surgical Subm Dr: Geoffrey Ibrahim DO Tissues: A Joint/Knee (LEFT ARM BONE AND TISSUE) Procedures: HE/2, Gross/Micro L4, Decalcification Patient: Gerson Penn [id number] (Continued) Specimen: [id number] Received: 09/22/24 (Continued) Signed (signature on file) Lino Coffman MD 09/25/24 1821 Specimen: [id number] Received: 09/22/24 Status: ARYA Vargas Num: [id number] Spec Type: Surgical Subm Dr: Geoffrey Ibrahim, Tissues: A Joint/Knee (LEFT ARM BONE AND TISSUE) Procedures: HE/2, Gross/Micro L4, Decalcification Patient: Gerson Penn [id number] (Continued) Specimen: [id number] Received: 09/22/24 (Continued) Microscopic Description Microscopic examinations are performed supporting the above interpretation CPT Codes [id number] Specimen: [id number] Received: 09/22/24 Status: ARYA Vargas Num: [id number] Spec Type: Surgical Subm Dr: Geoffrey Ibrahim DO Tissues: A Joint/Knee (LEFT ARM BONE AND TISSUE) Procedures: HE/2, Gross/Micro L4, Decalcification Patient: Gerson Penn [id number] (Continued) Signed (signature on file) Lino Coffman MD 09/25/24 1821 Normal [facility] No Panel InformationOrdered By: Geoffrey Ibrahim on 09-22-2024 Bedside Glucose Comment Glu2: cleaned meter [facility] XR elbow LT min 3V*on 2024 XR elbow LT min 3V* [place] [address] XRay Report Signed Patient: Gerson Penn MR#: [id number] : 1955 Acct:[id number] Age/Sex: 68 / M ADM Date: 09/22/24 Loc: [place] Room: Type: [facility] Attending Dr: Geoffrey Ibrahim DO Copies to: [...] Clark Méndez M.D.09/22/2024 5:18 PM Dictation Location: [place] [address] Transcribed By: GODFREY 09/22/241717 Dictated By: Clark Méndez II, MD 09/22/241716 Signed By: 09/22/241717 Normal [facility] Alanine aminotransferase [En zymatic activity/volume] in Serum or PlasmaOrdered By: Geoffrey Ibrahim on 09-21-2024 ALT [Catalytic activity/Vol] Alanine aminotransferase [Enzymatic activity/volume] in Serum or Plasma High 7-52 [facility] Albumin [Mass/volume] in Ser um or Plasma by Bromocresol green (BCG) dye binding methoOrdered By: Geoffrey Ibrahim on 09-21-2024 Albumin BCG dye [Mass/Vol] Albumin [Mass/volume] in Serum or Plasma by Bromocresol green (BCG) dye binding metho Low 3.5-5.7 [facility] Alkaline phosphatase [Enzyma tic activity/volume] in Serum or PlasmaOrdered By: Geoffrey Ibrahim on 09-21-2024 ALP [Catalytic activity/Vol] Alkaline phosphatase [Enzymatic activity/volume] in Serum or Plasma High 34-104 [facility] Appearance of UrineOrdered B y: Geoffrey Ibrahim on 09-21-2024 Appearance (U) Urine appearance Clear [facility] Aspartate aminotransferase [ Enzymatic activity/volume] in Serum or PlasmaOrdered By: Geoffrey Ibrahim on 09-21-2024 AST [Catalytic activity/Vol] Aspartate aminotransferase [Enzymatic activity/volume] in Serum or Plasma High 13-39 [facility] Basophils Auto (Bld) [#/Vol] Ordered By: Geoffrey Ibrahim on 09-21-2024 Basophils (Bld) [#/Vol] Automated basophil count [facility] Basophils/100 WBC Auto (Bld) Ordered By: Geoffrey Ibrahim on 09-21-2024 Basophils/100 WBC (Bld) Automated basophil % [facility] Bilirubin Test strip Ql (U)O rdered By: Geoffrey Ibrahim on 09-21-2024 Bilirubin Ql (U) Bilirubin.total [Pre sence] in Urine by Test strip Negative [facility] Bilirubin.total [Mass/volume ] in Serum or PlasmaOrdered By: Geoffrey Ibrahim on 09-21-2024 Bilirubin [Mass/Vol] Bilirubin.total [Mass/volume] in Serum or Plasma High 0.3-1.0 [facility] Comment on above: Samples from patient [...] [Mass/volume] in Blood Estimated from glycated hemoglobin [facility] CMP with reflex to A1Con Albumin [Mass/Vol] 2.6 g/dL Low 3.5-5.7 [facility] Comment on above: Performed By: #### H EMOCHROM, HAAB, HCBIGM, HCV RX PCR, HAABT, HBSAB, HBCAB, HBSAG, CERULOP, MITOM2, AFPTM, ALPHA PHEN, IGG, DYLAN, SMAB, L-K MICRO #### [facility] , #### PT, CMP, KYLE, CBC #### [facility] [address] Albumin/Globulin [Mass ratio] 0.7 {ratio} Normal [facility] Comment on above: Performed By: #### H EMOCHROM, HAAB, HCBIGM, HCV RX PCR, HAABT, HBSAB, HBCAB, HBSAG, CERULOP, MITOM2, AFPTM, ALPHA PHEN, IGG, DYLAN, SMAB, L-K MICRO #### [facility] , #### PT, CMP, KYLE, CBC #### [facility] [address] [place] [address] ALP [Catalytic activity/Vol] 289 U/L High 34-104 [facility] Comment on above: Result Comment: PERF ORMED BY: [place] [address] PATHOLOGIST E[employer]RO [employer] ENGINEER LEANDRA WALSH M.D. Performed By: #### H EMOCHROM, HAAB, HCBIGM, HCV RX PCR, HAABT, HBSAB, HBCAB, HBSAG, CERULOP, MITOM2, AFPTM, ALPHA PHEN, IGG, DYLAN, SMAB, L-K MICRO #### [facility] , #### PT, CMP, KYLE, CBC #### [address] ALT [Catalytic activity/Vol] 70 U/L High 7-52 [facility] Comment on above: Performed By: #### H EMOCHROM, HAAB, HCBIGM, HCV RX PCR, HAABT, HBSAB, HBCAB, HBSAG, CERULOP, MITOM2, AFPTM, ALPHA PHEN, IGG, DYLAN, SMAB, L-K MICRO #### [facility] , #### PT, CMP, KYLE, CBC #### [address] Anion gap [Moles/Vol] 10.6 mmol/L Normal 6.0-15.0 [facility] Comment on above: Performed By: #### H EMOCHROM, HAAB, HCBIGM, HCV RX PCR, HAABT, HBSAB, HBCAB, HBSAG, CERULOP, MITOM2, AFPTM, ALPHA PHEN, IGG, DYLAN, SMAB, L-K MICRO #### [facility] , #### PT, CMP, KYLE, CBC #### [address] AST [Catalytic activity/Vol] 143 U/L High 13-39 [facility] Comment on above: Performed By: #### H EMOCHROM, HAAB, HCBIGM, HCV RX PCR, HAABT, HBSAB, HBCAB, HBSAG, CERULOP, MITOM2, AFPTM, ALPHA PHEN, IGG, DYLAN, SMAB, L-K MICRO #### [facility] , #### PT, CMP, KYLE, CBC #### [address] Bilirubin [Mass/Vol] 1.8 mg/dL High 0.3-1.0 [facility] Comment on above: Result Comment: [...] , #### PT, CMP, KYLE, CBC #### [address] Calcium [Mass/Vol] 8.9 mg/dL Normal 8.6-10.3 [facility] Comment on above: Performed By: #### H EMOCHROM, HAAB, HCBIGM, HCV RX PCR, HAABT, HBSAB, HBCAB, HBSAG, CERULOP, MITOM2, AFPTM, ALPHA PHEN, IGG, DYLAN, SMAB, L-K MICRO #### [facility] , #### PT, CMP, KYLE, CBC #### [address] Chloride [Moles/Vol] 102 mmol/L Normal 98-107 [facility] Comment on above: Performed By: #### H EMOCHROM, HAAB, HCBIGM, HCV RX PCR, HAABT, HBSAB, HBCAB, HBSAG, CERULOP, MITOM2, AFPTM, ALPHA PHEN, IGG, DYLAN, SMAB, L-K MICRO #### [facility] , #### PT, CMP, KYLE, CBC #### [address] CO2 [Moles/Vol] 26.0 mmol/L Normal 21.0-31.0 [facility] Comment on above: Performed By: #### H EMOCHROM, HAAB, HCBIGM, HCV RX PCR, HAABT, HBSAB, HBCAB, HBSAG, CERULOP, MITOM2, AFPTM, ALPHA PHEN, IGG, DYLAN, SMAB, L-K MICRO #### [facility] , #### PT, CMP, KYLE, CBC #### [address] Creatinine [Mass/Vol] 1.24 mg/dL Normal 0.70-1.30 [facility] Comment on above: Performed By: #### H EMOCHROM, HAAB, HCBIGM, HCV RX PCR, HAABT, HBSAB, HBCAB, HBSAG, CERULOP, MITOM2, AFPTM, ALPHA PHEN, IGG, DYLAN, SMAB, L-K MICRO #### [facility] , #### PT, CMP, KYLE, CBC #### [address] GFR/1.73 sq M.predicted MDRD (S/P/Bld) [Vol rate/Area] mL/min/{1.73_m2} Normal [facility] Comment on above: Performed By: #### H EMOCHROM, HAAB, HCBIGM, HCV RX PCR, HAABT, HBSAB, HBCAB, HBSAG, CERULOP, MITOM2, AFPTM, ALPHA PHEN, IGG, DYLAN, SMAB, L-K MICRO #### [facility] , #### PT, CMP, KYLE, CBC #### [address] Globulin (S) [Mass/Vol] 3.5 g/dL Normal [facility] Comment on above: Performed By: #### H EMOCHROM, HAAB, HCBIGM, HCV RX PCR, HAABT, HBSAB, HBCAB, HBSAG, CERULOP, MITOM2, AFPTM, ALPHA PHEN, IGG, DYLAN, SMAB, L-K MICRO #### [facility] , #### PT, CMP, KYLE, CBC #### [address] Glucose [Mass/Vol] 114 mg/dL High 70-100 [facility] Comment on above: Result Comment: ADA recommended reference range Performed By: #### H EMOCHROM, HAAB, HCBIGM, HCV RX PCR, HAABT, HBSAB, HBCAB, HBSAG, CERULOP, MITOM2, AFPTM, ALPHA PHEN, IGG, DYLAN, SMAB, L-K MICRO #### [facility] , #### PT, CMP, KYLE, CBC #### [address] Potassium [Moles/Vol] 4.6 mmol/L Normal 3.5-5.1 [facility] Comment on above: Performed By: #### H EMOCHROM, HAAB, HCBIGM, HCV RX PCR, HAABT, HBSAB, HBCAB, HBSAG, CERULOP, MITOM2, AFPTM, ALPHA PHEN, IGG, DYLAN, SMAB, L-K MICRO #### [facility] , #### PT, CMP, KYLE, CBC #### [address] Protein [Mass/Vol] 6.1 g/dL Low 6.4-8.9 [facility] Comment on above: Performed By: #### H EMOCHROM, HAAB, HCBIGM, HCV RX PCR, HAABT, HBSAB, HBCAB, HBSAG, CERULOP, MITOM2, AFPTM, ALPHA PHEN, IGG, DYLAN, SMAB, L-K MICRO #### [facility] , #### PT, CMP, KYLE, CBC #### [address] Sodium [Moles/Vol] 134 mmol/L Low 136-145 [facility] Comment on above: Performed By: #### H EMOCHROM, HAAB, HCBIGM, HCV RX PCR, HAABT, HBSAB, HBCAB, HBSAG, CERULOP, MITOM2, AFPTM, ALPHA PHEN, IGG, DYLAN, SMAB, L-K MICRO #### [facility] , #### PT, CMP, KYLE, CBC #### [address] Urea nitrogen [Mass/Vol] 32 mg/dL High 7-25 [facility] Comment on above: Performed By: #### H EMOCHROM, HAAB, HCBIGM, HCV RX PCR, HAABT, HBSAB, HBCAB, HBSAG, CERULOP, MITOM2, AFPTM, ALPHA PHEN, IGG, DYLAN, SMAB, L-K MICRO #### [facility] , #### PT, CMP, KYLE, CBC #### [facility] [address] Calcium [Mass/volume] in Ser um or PlasmaOrdered By: Geoffrey Ibrahim on 09-21-2024 Calcium [Mass/Vol] Calcium [Mass/volume ] in Serum or Plasma 8.6-10.3 [facility] Carbon dioxide, total [Moles /volume] in Serum or PlasmaOrdered By: Geoffrey Ibrahim on 09-21-2024 CO2 [Moles/Vol] Carbon dioxide, tota l [Moles/volume] in Serum or Plasma 21.0-31.0 [facility] Chloride [Moles/volume] in S saud or PlasmaOrdered By: Geoffrey Ibrahim on 09-21-2024 Chloride [Moles/Vol] Chloride [Moles/vol ume] in Serum or Plasma 98-107 [facility] Color Auto (U)Ordered By: Claudia Ibrahim on 09-21-2024 Color (U) Color of Urine by Auto Yellow Fi [facility] Creatinine [Mass/volume] in Serum or PlasmaOrdered By: Geoffrey Ibrahim on 09-21-2024 Creatinine [Mass/Vol] Creatinine [Mass/v olume] in Serum or Plasma 0.70-1.30 [facility] Diff and CBCon 09-21-2024 Erythrocyte distribution width (RBC) [Ratio] 15.5 % High 12.0-14.8 [facility] Comment on above: Performed By: #### H EMOCHROM, HAAB, HCBIGM, HCV RX PCR, HAABT, HBSAB, HBCAB, HBSAG, CERULOP, MITOM2, AFPTM, ALPHA PHEN, IGG, DYLAN, SMAB, L-K MICRO #### [facility] , #### PT, CMP, KYLE, CBC #### [address] Hematocrit (Bld) [Volume fraction] 42.1 % Normal 38.8-50.0 [facility] Comment on above: Performed By: #### H EMOCHROM, HAAB, HCBIGM, HCV RX PCR, HAABT, HBSAB, HBCAB, HBSAG, CERULOP, MITOM2, AFPTM, ALPHA PHEN, IGG, DYLAN, SMAB, L-K MICRO #### [facility] , #### PT, CMP, KYLE, CBC #### [address] Hemoglobin (Bld) [Mass/Vol] 14.7 g/dL Normal 13.0-17.0 [facility] Comment on above: Performed By: #### H EMOCHROM, HAAB, HCBIGM, HCV RX PCR, HAABT, HBSAB, HBCAB, HBSAG, CERULOP, MITOM2, AFPTM, ALPHA PHEN, IGG, DYLAN, SMAB, L-K MICRO #### [facility] , #### PT, CMP, KYLE, CBC #### [address] Lymphocytes/100 WBC (Bld) 4 % Low 18-42 [facility] Comment on above: Performed By: #### H EMOCHROM, HAAB, HCBIGM, HCV RX PCR, HAABT, HBSAB, HBCAB, HBSAG, CERULOP, MITOM2, AFPTM, ALPHA PHEN, IGG, DYLAN, SMAB, L-K MICRO #### [facility] , #### PT, CMP, KYLE, CBC #### [address] MCH (RBC) [Entitic mass] 33.4 pg Normal 27.5-35.2 [facility] Comment on above: Performed By: #### H EMOCHROM, HAAB, HCBIGM, HCV RX PCR, HAABT, HBSAB, HBCAB, HBSAG, CERULOP, MITOM2, AFPTM, ALPHA PHEN, IGG, DYLAN, SMAB, L-K MICRO #### [facility] , #### PT, CMP, KYLE, CBC #### [address] MCV (RBC) [Entitic vol] 95.4 fL Normal 83.5-101 [facility] Comment on above: Performed By: #### H EMOCHROM, HAAB, HCBIGM, HCV RX PCR, HAABT, HBSAB, HBCAB, HBSAG, CERULOP, MITOM2, AFPTM, ALPHA PHEN, IGG, DYLAN, SMAB, L-K MICRO #### [facility] , #### PT, CMP, KYLE, CBC #### [address] Mean Corpuscular HGB Conc 35.0 g/dL Normal 32.5-35.6 [facility] Comment on above: Performed By: #### H EMOCHROM, HAAB, HCBIGM, HCV RX PCR, HAABT, HBSAB, HBCAB, HBSAG, CERULOP, MITOM2, AFPTM, ALPHA PHEN, IGG, DYLAN, SMAB, L-K MICRO #### [facility] , #### PT, CMP, KYLE, CBC #### [address] Monocytes/100 WBC (Bld) 9 % Normal 2-11 [facility] Comment on above: Performed By: #### H EMOCHROM, HAAB, HCBIGM, HCV RX PCR, HAABT, HBSAB, HBCAB, HBSAG, CERULOP, MITOM2, AFPTM, ALPHA PHEN, IGG, DYLAN, SMAB, L-K MICRO #### [facility] , #### PT, CMP, KYLE, CBC #### [address] Platelet Estimate Normal Normal Normal [facility] Comment on above: Performed By: #### H EMOCHROM, HAAB, HCBIGM, HCV RX PCR, HAABT, HBSAB, HBCAB, HBSAG, CERULOP, MITOM2, AFPTM, ALPHA PHEN, IGG, DYLAN, SMAB, L-K MICRO #### [facility] , #### PT, CMP, KYLE, CBC #### [address] Platelet mean volume (Bld) [Entitic vol] 7.8 fL Normal 6.6-10.1 [facility] Comment on above: Performed By: #### H EMOCHROM, HAAB, HCBIGM, HCV RX PCR, HAABT, HBSAB, HBCAB, HBSAG, CERULOP, MITOM2, AFPTM, ALPHA PHEN, IGG, DYLAN, SMAB, L-K MICRO #### [facility] , #### PT, CMP, KYLE, CBC #### [address] Platelet Morphology Normal Normal Normal [facility] Comment on above: Result Comment: PERF ORMED BY: [place] [address] PATHOLOGIST ELECTRO OPT[employer] ENGINEER LEANDRA WALSH M.D. Performed By: #### H EMOCHROM, HAAB, HCBIGM, HCV RX PCR, HAABT, HBSAB, HBCAB, HBSAG, CERULOP, MITOM2, AFPTM, ALPHA PHEN, IGG, DYLAN, SMAB, L-K MICRO #### [facility] , #### PT, CMP, KYLE, CBC #### [address] Platelets (Bld) [#/Vol] 188 10*3/uL Normal 150-450 [facility] Comment on above: Performed By: #### H EMOCHROM, HAAB, HCBIGM, HCV RX PCR, HAABT, HBSAB, HBCAB, HBSAG, CERULOP, MITOM2, AFPTM, ALPHA PHEN, IGG, DYLAN, SMAB, L-K MICRO #### [facility] , #### PT, CMP, KYLE, CBC #### [address] RBC (Bld) [#/Vol] 4.42 10*6/uL Normal 3.90-5.60 [facility] Comment on above: Performed By: #### H EMOCHROM, HAAB, HCBIGM, HCV RX PCR, HAABT, HBSAB, HBCAB, HBSAG, CERULOP, MITOM2, AFPTM, ALPHA PHEN, IGG, DYLAN, SMAB, L-K MICRO #### [facility] , #### PT, CMP, KYLE, CBC #### [address] RBC morphology finding Nom (Bld) Normal Normal Normal [facility] Comment on above: Performed By: #### H EMOCHROM, HAAB, HCBIGM, HCV RX PCR, HAABT, HBSAB, HBCAB, HBSAG, CERULOP, MITOM2, AFPTM, ALPHA PHEN, IGG, DYLAN, SMAB, L-K MICRO #### [facility] , #### PT, CMP, KYLE, CBC #### [address] Segmented neutrophils/100 WBC (Bld) 87 % High 50-70 [facility] Comment on above: Performed By: #### H EMOCHROM, HAAB, HCBIGM, HCV RX PCR, HAABT, HBSAB, HBCAB, HBSAG, CERULOP, MITOM2, AFPTM, ALPHA PHEN, IGG, DYLAN, SMAB, L-K MICRO #### [facility] , #### PT, CMP, KYLE, CBC #### [address] WBC (Bld) [#/Vol] 5.4 10*3/uL Normal 4.1-10.5 [facility] Comment on above: Performed By: #### H EMOCHROM, HAAB, HCBIGM, HCV RX PCR, HAABT, HBSAB, HBCAB, HBSAG, CERULOP, MITOM2, AFPTM, ALPHA PHEN, IGG, DYLAN, SMAB, L-K MICRO #### [facility] , #### PT, CMP, KYLE, CBC #### [facility] [address] EBS A1C with Estimated Alberto rajput 09-21-2024 Glucose [Mass/Vol] 134 mg/dL Normal [facility] Comment on above: Result Comment: PERF ORMED BY: [place] [address] PATHOLOGIST ELECTRO [employer] ENGINEER LEANDRA WALSH M.D. Performed By: #### H EMOCHROM, HAAB, HCBIGM, HCV RX PCR, HAABT, HBSAB, HBCAB, HBSAG, CERULOP, MITOM2, AFPTM, ALPHA PHEN, IGG, DYLAN, SMAB, L-K MICRO #### [facility] , #### PT, CMP, KYLE, CBC #### [address] ECG 12 lead ECGon 09-21-2024 ECG 12 lead ECG [facility] [place] [address] Electrocardiograph Report Signed Patient: Gerson Penn MR#: [id number] : 1955 Acct:[id number] Age/Sex: 68 / M ADM Date: 09/21/24 Loc: Room: Type: [facility] Attending Dr: Geoffrey Ibrahim DO Ordering Provider: [...] When compared with ECG of 04-Oct-2012 08:47, [place] interval has decreased Confirmed by Taj Palm ([id number]) on 09/21/2024 8:57:00 AM Referred By: Electronically Signed By: Taj Palm Transcribed By: MUS Signed By Taj Palm MD 09/21/24 0857 Normal [facility] Eosinophils Auto (Bld) [#/Vo l]Ordered By: Geoffrey Ibrahim on 09-21-2024 Eosinophils (Bld) [#/Vol] Automated eosinophil count [facility] Eosinophils/100 WBC Auto (Bl d)Ordered By: Geoffrey Ibrahim on 09-21-2024 Eosinophils/100 WBC (Bld) Automated eosinophil % [facility] Erythrocyte distribution wid th Auto (RBC) [Ratio]Ordered By: Geoffrey Ibrahim on 09-21-2024 Erythrocyte distribution width (RBC) [Ratio] Erythrocyte distribution width [Ratio] by Automated count High 12.0-14.8 [facility] Erythrocyte morphology findi ng [Identifier] in BloodOrdered By: Geoffrey Ibrahim on 09-21-2024 RBC morphology finding Nom (Bld) RBC morphology Normal [facility] Globulin Calc (S) [Mass/Vol] Ordered By: Geoffrey Ibrahim on 09-21-2024 Globulin (S) [Mass/Vol] Serum globulin measurement by calculation (mass/volume) [facility] Glucose [Mass/volume] in Ser um or PlasmaOrdered By: Geoffrey Ibrahim on 09-21-2024 Glucose [Mass/Vol] Glucose [Mass/volume ] in Serum or Plasma High 70-100 [facility] Comment on above: ADA recommended refe rence range Glucose [Mass/volume] in Uri ne by Test stripOrdered By: Geoffrey Ibrahim on 09-21-2024 Glucose Test strip (U) [Mass/Vol] Glucose [Mass/volume] in Urine by Test strip Normal [facility] Hematocrit Auto (Bld) [Volum e fraction]Ordered By: Geoffrey Ibrahim on 09-21-2024 Hematocrit (Bld) [Volume fraction] Hematocrit [Volume Fraction] of Blood by Automated count 38.8-50.0 [facility] Hemoglobin A1c measurementOr dered By: Geoffrey Ibrahim on 09-21-2024 HbA1c (Bld) [Mass fraction] 6.3 % High 4.3-5.6 [facility] Comment on above: Increased risk for [...] #### PT, CMP, KYLE, CBC #### [facility] [address] Hemoglobin Test strip Ql (U) Ordered By: Geoffrey Ibrahim on 09-21-2024 Hemoglobin Ql (U) Hemoglobin [Presence ] in Urine by Test strip Negative [facility] [facility] Hem[facility] [Mass/volume] in BloodOrdered By: Geoffrey Ibrahim on 09-21-2024 Hemoglobin (Bld) [Mass/Vol] Hemoglobin [Mass/volume] in Blood 13.0-17.0 [facility] Ketones Test strip Ql (U)Ord ered By: Geoffrey Ibrahim on 09-21-2024 Ketones Ql (U) Ketones [Presence] i n Urine by Test strip Negative [facility] Leukocyte esterase [Presence ] in Urine by Test stripOrdered By: Geoffrey Ibrahim on 09-21-2024 Leukocyte esterase Test strip Ql (U) Leukocyte esterase [Presence] in Urine by Test strip Negative [facility] Leukocytes [#/volume] correc adrián for nucleated erythrocytes in Blood by Automated counOrdered By: Geoffrey Ibrahim on 09-21-2024 WBC corrected for nucl RBC Auto (Bld) [#/Vol] Leukocytes [#/volume] corrected for nucleated erythrocytes in Blood by Automated coun 4.1-10.5 [facility] Lymphocytes Auto (Bld) [#/Vo l]Ordered By: Geoffrey Ibrahim on 09-21-2024 Lymphocytes (Bld) [#/Vol] Lymphocytes [#/volume] in Blood by Automated count [facility] Lymphocytes/100 WBC Auto (Bl d)Ordered By: Geoffrey Ibrahim on 09-21-2024 Lymphocytes/100 WBC (Bld) Lymphocytes/100 leukocytes in Blood by Automated count [facility] Lymphocytes/100 WBC Manual c nt (Bld)Ordered By: Geoffrey Ibrahim on 09-21-2024 Lymphocytes/100 WBC (Bld) Lymphocytes/100 leukocytes in Blood by Manual count Low 18-42 [facility] MCH Auto (RBC) [Entitic mass ]Ordered By: Geoffrey Ibrahim on 09-21-2024 MCH (RBC) [Entitic mass] MCH [Entitic mass] by Automated count 27.5-35.2 [facility] MCHC Auto (RBC) [Mass/Vol]Or dered By: Geoffrey Ibrahim on 09-21-2024 MCHC (RBC) [Mass/Vol] MCHC [Mass/volume] by Automated count 32.5-35.6 [facility] MCV Auto (RBC) [Entitic vol] Ordered By: Geoffrey Ibrahim on 09-21-2024 MCV (RBC) [Entitic vol] MCV [Entitic volume] by Automated count 83.5-101 [facility] Monocytes Auto (Bld) [#/Vol] Ordered By: Geoffrey Ibrahim on 09-21-2024 Monocytes (Bld) [#/Vol] Automated blood monocyte count [facility] Monocytes/100 WBC Auto (Bld) Ordered By: Geoffrey Ibrahim on 09-21-2024 Monocytes/100 WBC (Bld) Automated monocyte % [facility] Monocytes/100 WBC Manual cnt (Bld)Ordered By: Geoffrey Ibrahim on 09-21-2024 Monocytes/100 WBC (Bld) Monocytes/100 leukocytes in Blood by Manual count 2-11 [facility] Neutrophils Auto (Bld) [#/Vo l]Ordered By: Geoffrey Ibrahim on 09-21-2024 Neutrophils (Bld) [#/Vol] Neutrophils [#/volume] in Blood by Automated count [facility] Neutrophils/100 WBC Auto (Bl d)Ordered By: Geoffrey Ibrahim on 09-21-2024 Neutrophils/100 WBC (Bld) Automated neutrophil % [facility] Nitrite Test strip Ql (U)Ord ered By: Geoffrey Ibrahim on 09-21-2024 Nitrite Ql (U) Nitrite [Presence] i n Urine by Test strip Negative [facility] No Panel InformationOrdered By: Geoffrey Ibrahim on 09-21-2024 Estimated GFR (CKD-EPI) > 60.0 mL/Min [facility] Pharmacy Creatinine Clearance (Chem N/A [facility] Nucleated erythrocytes [Pres ence] in Blood by Automated countOrdered By: Geoffrey Ibrahim on 09-21-2024 Nucleated RBC Auto Ql (Bld) Nucleated erythrocytes [Presence] in Blood by Automated count [facility] Platelet adequacy [Presence] in Blood by Light microscopyOrdered By: Geoffrey Ibrahim on 09-21-2024 Platelets LM Ql (Bld) Platelet adequacy [Presence] in Blood by Light microscopy Normal [facility] Platelet mean volume Auto (B ld) [Entitic vol]Ordered By: Geoffrey Ibrahim on 09-21-2024 Platelet mean volume (Bld) [Entitic vol] Platelet mean volume [Entitic volume] in Blood by Automated count 6.6-10.1 [facility] Platelet morphology finding [Identifier] in BloodOrdered By: Geoffrey Ibrahim on 09-21-2024 Platelet morphology finding Nom (Bld) Platelet morphology finding [Identifier] in Blood Normal [facility] Platelets Auto (Bld) [#/Vol] Ordered By: Geoffrey Ibrahim on 09-21-2024 Platelets (Bld) [#/Vol] Platelets [#/volume] in Blood by Automated count 150-450 [facility] Potassium [Moles/volume] in Serum or PlasmaOrdered By: Geoffrey Ibrahim on 09-21-2024 Potassium [Moles/Vol] Potassium [Moles/v olume] in Serum or Plasma 3.5-5.1 [facility] Protein Test strip (U) [Mass /Vol]Ordered By: Geoffrey Ibrahim on 09-21-2024 Protein (U) [Mass/Vol] Protein [Mass/vol ume] in Urine by Test strip Negative [facility] Protein [Mass/volume] in Ser um or PlasmaOrdered By: Geoffrey Ibrahim on 09-21-2024 Protein [Mass/Vol] Protein [Mass/volume ] in Serum or Plasma Low 6.4-8.9 [facility] RBC Auto (Bld) [#/Vol]Ordere d By: Geoffrey Ibrahim on 09-21-2024 RBC (Bld) [#/Vol] Erythrocytes [#/volu me] in Blood by Automated count 3.90-5.60 [facility] Segmented neutrophils/100 WB C Manual cnt (Bld)Ordered By: Geoffrey Ibrahim on 09-21-2024 Segmented neutrophils/100 WBC (Bld) Manual blood segmented neutrophils/100 leukocytes High 50-70 [facility] Serum or plasma albumin/glob ulin mass ratioOrdered By: Geoffrey Ibrahim on 09-21-2024 Albumin/Globulin [Mass ratio] Serum or plasma albumin/globulin mass ratio [facility] Serum or plasma anion gap de terminationOrdered By: Geoffrey Ibrahim on 09-21-2024 Anion gap [Moles/Vol] Serum or plasma an ion gap determination 6.0-15.0 [facility] Sodium [Moles/volume] in Ser um or PlasmaOrdered By: Geoffrey Ibrahim on 09-21-2024 Sodium [Moles/Vol] Sodium [Moles/volume ] in Serum or Plasma Low 136-145 [facility] Specific gravity Test strip (U) [Rel density]Ordered By: Geoffrey Ibrahim on 09-21-2024 Specific gravity (U) [Rel density] Specific gravity of Urine by Test strip 1.001-1.03 0 [facility] Urea nitrogen [Mass/volume] in Serum or PlasmaOrdered By: Geoffrey Ibrahim on 09-21-2024 Urea nitrogen [Mass/Vol] Urea nitrogen [Mass/volume] in Serum or Plasma High 7-25 [facility] Urinalysison 09-21-2024 Appearance (U) Clear Normal Clear [facility] Comment on above: Order Comment: Name Collection Type:: Clean-Voided Midstream Performed By: #### H EMOCHROM, HAAB, HCBIGM, HCV RX PCR, HAABT, HBSAB, HBCAB, HBSAG, CERULOP, MITOM2, AFPTM, ALPHA PHEN, IGG, DYLAN, SMAB, L-K MICRO #### [facility] , #### PT, CMP, KYLE, CBC #### [facility] [address] [place] [address] Bilirubin,Urine Negative Normal Negative [facility] Comment on above: Order Comment: Name Collection Type:: Clean-Voided Midstream Performed By: #### H EMOCHROM, HAAB, HCBIGM, HCV RX PCR, HAABT, HBSAB, HBCAB, HBSAG, CERULOP, MITOM2, AFPTM, ALPHA PHEN, IGG, DYLAN, SMAB, L-K MICRO #### [facility] , #### PT, CMP, KYLE, CBC #### [address] Color (U) Yellow Normal Yellow [facility] Comment on above: Order Comment: Name Collection Type:: Clean-Voided Midstream Performed By: #### H EMOCHROM, HAAB, HCBIGM, HCV RX PCR, HAABT, HBSAB, HBCAB, HBSAG, CERULOP, MITOM2, AFPTM, ALPHA PHEN, IGG, DYLAN, SMAB, L-K MICRO #### [facility] , #### PT, CMP, KYLE, CBC #### [address] Glucose Ql (U) Normal Normal Normal [facility] Comment on above: Order Comment: Name Collection Type:: Clean-Voided Midstream Performed By: #### H EMOCHROM, HAAB, HCBIGM, HCV RX PCR, HAABT, HBSAB, HBCAB, HBSAG, CERULOP, MITOM2, AFPTM, ALPHA PHEN, IGG, DYLAN, SMAB, L-K MICRO #### [facility] , #### PT, CMP, KYLE, CBC #### [address] Ketones Ql (U) Negative Normal Negative [facility] Comment on above: Order Comment: Name Collection Type:: Clean-Voided Midstream Performed By: #### H EMOCHROM, HAAB, HCBIGM, HCV RX PCR, HAABT, HBSAB, HBCAB, HBSAG, CERULOP, MITOM2, AFPTM, ALPHA PHEN, IGG, DYLAN, SMAB, L-K MICRO #### [facility] , #### PT, CMP, KYLE, CBC #### [address] Leukocyte esterase Test strip Ql (U) Negative Normal Negative [facility] Comment on above: Order Comment: Name Collection Type:: Clean-Voided Midstream Performed By: #### H EMOCHROM, HAAB, HCBIGM, HCV RX PCR, HAABT, HBSAB, HBCAB, HBSAG, CERULOP, MITOM2, AFPTM, ALPHA PHEN, IGG, DYLAN, SMAB, L-K MICRO #### [facility] , #### PT, CMP, KYLE, CBC #### [address] Nitrite,Urine Negative Normal Negative [facility] Comment on above: Order Comment: Name Collection Type:: Clean-Voided Midstream Performed By: #### H EMOCHROM, HAAB, HCBIGM, HCV RX PCR, HAABT, HBSAB, HBCAB, HBSAG, CERULOP, MITOM2, AFPTM, ALPHA PHEN, IGG, DYLAN, SMAB, L-K MICRO #### [facility] , #### PT, CMP, KYLE, CBC #### [address] Occult Blood,Urine Negative Normal Negative [facility] Comment on above: Order Comment: Name Collection Type:: Clean-Voided Midstream Result Comment: PERF ORMED BY: [place] [address] PATHOLOGIST ELECTRO OPTICS ENGINEER LEANDRA WALSH M.D. Performed By: #### H EMOCHROM, HAAB, HCBIGM, HCV RX PCR, HAABT, HBSAB, HBCAB, HBSAG, CERULOP, MITOM2, AFPTM, ALPHA PHEN, IGG, DYLAN, SMAB, L-K MICRO #### [facility] , #### PT, CMP, KYLE, CBC #### [address] pH (U) 6.0 [pH] Normal 5.0-9.0 [facility] Comment on above: Order Comment: Name Collection Type:: Clean-Voided Midstream Performed By: #### H EMOCHROM, HAAB, HCBIGM, HCV RX PCR, HAABT, HBSAB, HBCAB, HBSAG, CERULOP, MITOM2, AFPTM, ALPHA PHEN, IGG, DYLAN, SMAB, L-K MICRO #### [facility] , #### PT, CMP, KYLE, CBC #### [address] Protein,Urine Negative Normal Negative [facility] Comment on above: Order Comment: Name Collection Type:: Clean-Voided Midstream Performed By: #### H EMOCHROM, HAAB, HCBIGM, HCV RX PCR, HAABT, HBSAB, HBCAB, HBSAG, CERULOP, MITOM2, AFPTM, ALPHA PHEN, IGG, DYLAN, SMAB, L-K MICRO #### [facility] , #### PT, CMP, KYLE, CBC #### [address] Specificy Miller,Urine 1.014 Normal 1.001-1.03 0 [facility] Comment on above: Order Comment: Name Collection Type:: Clean-Voided Midstream Performed By: #### H EMOCHROM, HAAB, HCBIGM, HCV RX PCR, HAABT, HBSAB, HBCAB, HBSAG, CERULOP, MITOM2, AFPTM, ALPHA PHEN, IGG, DYLAN, SMAB, L-K MICRO #### [facility] , #### PT, CMP, KYLE, CBC #### [address] Urobilinogen,Urine Normal Normal Normal [facility] Comment on above: Order Comment: Name Collection Type:: Clean-Voided Midstream Performed By: #### H EMOCHROM, HAAB, HCBIGM, HCV RX PCR, HAABT, HBSAB, HBCAB, HBSAG, CERULOP, MITOM2, AFPTM, ALPHA PHEN, IGG, DYLAN, SMAB, L-K MICRO #### [facility] , #### PT, CMP, KYLE, CBC #### [facility] [address] Urobilinogen Test strip (U) [Mass/Vol]Ordered By: Geoffrey Ibrahim on 09-21-2024 Urobilinogen (U) [Mass/Vol] Urobilinogen [Mass/volume] in Urine by Test strip Normal [facility] WBC Auto (Bld) [#/Vol]Ordere d By: Geoffrey Ibrahim on 09-21-2024 WBC (Bld) [#/Vol] Leukocytes [#/volume ] in Blood by Automated count 4.1-10.5 [facility] pH Test strip (U)Ordered By: Geoffrey Ibrahim on 09-21-2024 pH (U) pH of Urine by Test strip 5.0-9.0 [facility] BASIC METABOLIC PANELon 10-1 Anion gap [Moles/Vol] 9 mmol/L Normal 7-[address] [facility] Comment on above: Performed By: #### L AB15 #### [facility] (BEAKER) [address] [place] [address] Calcium [Mass/Vol] 6.9 mg/dL Low 8.6-10.3 [facility] Comment on above: Performed By: #### L AB15 #### [facility] (BEAKER) [address] [place] [address] Chloride [Moles/Vol] 110 mmol/L High 98-107 [facility] Comment on above: Performed By: #### L AB15 #### [facility] (BEAKER) [address] [place] [address] CO2 [Moles/Vol] 22 mmol/L Normal 21-31 [facility] Comment on above: Performed By: #### L AB15 #### [facility] (BEAKER) [address] [place] [address] Creatinine [Mass/Vol] 1.04 mg/dL Normal 0.70-1.[address] [facility] Comment on above: Performed By: #### L AB15 #### [facility] ([facility]) [address] [place] [address] GLOMERULAR FILTRATION RATE ML/MIN/1.73 SQ M.PREDICTED 79.2 mL/min/1.73m*2 Normal >60.0 [facility] Comment on above: Result Comment: [facility]???s estimated glomerular filtration rate (eGFR) [...] individuals. Performed By: #### L AB15 #### [facility] ([facility]) [address] [place] [address] Glucose [Mass/Vol] 86 mg/dL Normal 70-100 [facility] Comment on above: Performed By: #### L AB15 #### [facility] ([facility]) [address] [place] [address] Potassium [Moles/Vol] 3.9 mmol/L Normal 3.5-5.[address] [facility] Comment on above: Performed By: #### L AB15 #### [facility] ([facility]) [address] [place] [address] Sodium [Moles/Vol] 137 mmol/L Normal 136-145 [facility] Comment on above: Performed By: #### L AB15 #### [facility] ([facility]) [address] [place] [address] Urea nitrogen [Mass/Vol] 32 mg/dL High 7-25 [facility] Comment on above: Performed By: #### L AB15 #### [facility] ([facility]) [address] [facility] [place] [address] UREA NITROGEN/CREATININE (MASS RATIO) IN SER/PLAS 30.8 [facility] Comment on above: Performed By: #### L AB15 #### [facility] ([place]) [place] [address] HPon 05-14-2024 HP ------- Attestation signed by [...] possible PCI. Joyce Rodrigues MD PGY-7 Interventional [employer] [facility] NURSNOTEon 05-14-2024 NURSNOTE Patient okay to keren patel at [address] Otero. [facility] NURSNOTE RN educated pt on d/ c instructions. This included: site care, limited physical activity, resume normal diet, future appointments, medications, and moderate sedation instructions. RN educated pt on when to notify physician and when to go to the hospital. RN encouraged pt to voice any questions or concerns, and answered any questions or concerns if pt verbalized. [facility] RIP Aparicio notifi ed of normal creatnine result. states pt ok for early discharge at 2:30 and no need to continue IVF. [facility] Orders Onlyon 05-04-2024 Orders Only [id number] Chencho Penn 1955 M Date Provider Department Center 05/04/2024 ERMA JUNE Family History Problem Relation Age of Onset Colon cancer Mother Coronary artery disease Father Cancer Brother Family Status - Relation Status Age at Mother Father Brother [facility] CREATININE, SERUMon 05-01-20 24 Creatinine [Mass/Vol] 1.45 mg/dL High 0.70-1.30 [facility] Comment on above: Performed By: #### L [id number] ####[facility] ([place])[address] [place] [address] GLOMERULAR FILTRATION RATE ML/MIN/1.73 SQ M.PREDICTED 53.1 mL/min/1.73m*2 Low >60.0 [facility] Comment on above: Result Comment: [facility]???s estimated glomerular filtration rate (eGFR) [...] of individuals. Performed By: #### L [id number] ####[facility] ([facility])[address] [place] [address] CTA HEART CORONARY W IV CONT Luh [...] Condon MD. 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 Normal [facility] Office Visiton 04-29-2024 Follow-up visit [id number] Chencho Penn 1955 M Date Provider Department Center 04/29/2024 [facility] Family History Problem Relation Age of Onset Colon cancer Mother Coronary artery disease Father Cancer Brother Family Status - Relation Status Age at Mother Father Brother Level of Service:97250 UT OFFICE/OP CONSLTJ NEW/EST PT MOD MDM 40 MINUTES Normal [facility] [place] 04-18-2023 Consent [id number]#1.00CD:127 Normal [facility] In office Testingon 04-18-20 23 In office Testing [id number]#1.00CD:127 Normal [facility] Registrationon 04-18-2023 Registration [id number]#1.00CD:127 [facility] In office Testingon 03-15-20 23 In office Testing [id number]#1.00CD:127 Normal [facility] [place] 03-08-2023 Consent [id number]#1.00CD:127 Normal [facility] Registrationon 03-08-2023 Registration [id number]#1.00CD:127 [facility] In office Testingon 02-06-20 23 In office Testing [id number]#1.00CD:127 Normal [facility] [place] 02-04-2023 Consent [id number]#1.00CD:127 Normal [facility] Registrationon 02-04-2023 Registration [id number]#1.00CD:127 [facility] Patient Correspondenceon Patient Correspondence [id number]#1.00CD:127 [facility] Physician Referralon 023 Physician Referral [id number]#1.00CD:127 [facility] Physician Referral [id number]#1.00CD:127 [facility] [place] 11-09-2022 Consent [id number]#1.00CD:127 [facility] In office Testingon 11-10-19 23 In office Testing [id number]#1.00CD:127 [facility] Registrationon 11-09-2022 Registration [id number]#1.00CD:127 [facility] [place] 07-27-2022 Consent [id number]#1.00CD:127 [facility] Registrationon 07-27-2022 Registration [id number]#1.00CD:127 [facility] [place] 07-09-2022 Consent [id number]#1.00CD:127 [facility] In office Testingon 07-09-20 22 In office Testing [id number]#1.00CD:127 [facility] Registrationon 07-09-2022 Registration [id number]#1.00CD:127 [facility] In office Testingon 07-06-20 22 In office Testing [id number]#1.00CD:127 [facility] GLYCOHEMOGLOBIN A1Con 2021 ADA RECOMMENDATION SEE BELOW Normal [facility] Comment on above: Result Comment: ADA RECOMMENDED LIMIT 4.0 - 6.0 ADA THERAPEUTIC TARGET < 7.0 ACTION SUGGESTED > 7.0 Performed By: #### A 1C #### [facility] [address] [place] [address] Dr. Sandor Coffman Glucose [Mass/Vol] 140 mg/dL Normal [facility] Comment on above: Performed By: #### A 1C #### [facility] [address] [place] [address] Dr. Sandor Coffman HbA1c (Bld) [Mass fraction] 6.5 % Critically high 4.5-6.2 [facility] Comment on above: Performed By: #### A 1C #### [facility] [address] [address] [address] Sandor Coffman Registrationon 05-01-2022 Registration [id number]#1.00CD:127 Normal [facility] [place] 04-27-2022 Consent [id number]#1.00CD:127 Normal [facility] HIP LEFT 1 OR 2 VWS WITH PEL VISon 08-27-2019 HIP LEFT 1 OR 2 VWS WITH PELVIS [facility] Department of Radiology [address] [place] [id number] Patient Name: GERSON PENN : 1955 [...] above. Electronically signed: David Sanford. Transcribed by: [email or web address], User Resident: Electronically Signed by: DAVID SANFORD @ 08/27/2019 01:52 PM Normal [facility] Comment on above: Order Comment: , Vie ws (X-RAY, HIP): Radiologic Protocol , Views (X-RAY, HIP): Radiologic Protocol , , , Ordering Provider - LIZET LOVELACE MD , HIP LEFT 1 OR 2 VWS WITH PEL VISon 06-18-2019 HIP LEFT 1 OR 2 VWS WITH PELVIS [facility] Department of Radiology [address] [place] [id number] Patient Name: GERSON PENN : 1955 Sex: M Age: Race: White Pt. Location: Patient Status: Ordered Date: 06/17/2019 3:35:00 PM Completed Date: 06/18/2019 10:30 AM Requesting Provider: LIZET LOVELACE Attending Provider: Report Copy To: Signs & Symptoms: Z96.642 Presence of left artificial hip joint I10 History: Irwin Comments: , Views (X-RAY, HIP): Radiologic Protocol [...] loosening Electronically signed by:Carlos Cameron. Transcribed by: [email or web address], User Resident: Electronically Signed by: CARLOS CAMERON @ 06/18/2019 02:11 PM Normal [facility] Comment on above: Order Comment: , Heidie ws (X-RAY, HIP): Radiologic Protocol , Views (X-RAY, HIP): Radiologic Protocol , , , Ordering Provider - LIZET LOVELACE MD , Vital Signs Date Time Vital Sign Value Performing Clinician Mauliki sonal 11-05-2024 10:19-0400 Diastolic blood pressure 62 mm[Hg] Peggy Muñoz MD Work Phone: [facility] 11-05-2024 10:19-0400 Heart rate 73 /min Peggy Muñoz MD Work Phone: [facility] 11-05-2024 10:19-0400 Systolic blood pressure 141 mm[Hg] Peggy Muñoz MD Work Phone: [facility] 09-22-2024 16:40-0500 Diastolic blood pressure 68 mm[Hg] Peggy Muñoz MD Work Phone: [facility] 09-22-2024 16:40-0500 Heart rate 73 /min Peggy Muñoz MD Work Phone: [facility] 09-22-2024 16:40-0500 Respiratory rate 16 /min Pgegy Muñoz MD Work Phone: [facility] 09-22-2024 16:40-0500 SaO2% (BldA) [Mass fraction] 92 % Peggy Muñoz MD Work Phone: [facility] 09-22-2024 16:40-0500 Systolic blood pressure 145 mm[Hg] Peggy Muñoz MD Work Phone: [facility] 09-22-2024 15:55-0500 Body temperature 97.4 [degF] Peggy Muñoz MD Work Phone: [facility] 09-22-2024 15:25-0500 Inhaled oxygen flow rate 6 L/min Peggy Muñoz MD Work Phone: [facility] 09-22-2024 12:02-0500 Body height 173.99 cm Peggy Muñoz MD Work Phone: [facility] 09-22-2024 12:02-0500 Body weight 140.7 kg Peggy Muñoz MD Work Phone: [facility] 09-18-2024 08:08-0500 Body height 180.34 cm [facility] 09-18-2024 08:08-0500 Body mass index (BMI) [Ratio] 43.1 kg/m2 [facility] 09-18-2024 08:08-0500 Body weight 140.21 kg [facility] Encounters Encounter Date Encounter Type Care Provider Facility Start: 11-26-2024 End: 11-26-2024 Patient encounter procedure Peggy Muñoz MD Work Phone: [facility] [place] Work Phone: Start: 11-26-2024 End: 11-26-2024 ambulatory Peggy Muñoz MD Work Phone: [facility] Work Phone: Start: 11-18-2024 End: 11-18-2024 ambulatory Peggy Muñoz MD Work Phone: [facility] Work Phone: Start: 11-18-2024 End: 11-18-2024 Departed Referred Peggy Muñoz MD Work Phone: [facility]LAB [facility] Start: 11-05-2024 End: 11-05-2024 Patient encounter procedure Peggy Muñoz MD Work Phone: [facility] [place] Work Phone: Start: 11-05-2024 End: 11-05-2024 ambulatory Peggy Muñoz MD Work Phone: [facility] Work Phone: Start: 11-05-2024 End: 11-05-2024 ambulatory Peggy Muñoz MD Work Phone: [facility] Work Phone: Start: 11-05-2024 End: 11-05-2024 Patient encounter procedure Peggy Muñoz MD Work Phone: [facility] Work Phone: Start: 11-02-2024 End: 11-02-2024 ambulatory Peggy Muñoz MD Work Phone: [facility] Work Phone: Start: 11-02-2024 End: 11-02-2024 Patient encounter procedure Peggy Muñoz MD Work Phone: [facility] Work Phone: Start: 11-02-2024 End: 11-02-2024 Patient encounter procedure Peggy Muñoz MD Work Phone: [facility] Start: 11-02-2024 End: 11-02-2024 ambulatory Peggy Muñoz MD Work Phone: [facility] Work Phone: Start: 10-20-2024 End: 10-20-2024 ambulatory Peggy Muñoz MD Work Phone: [facility] Work Phone: Start: 10-20-2024 End: 10-20-2024 Departed Referred Peggy Muñoz MD Work Phone: [facility] Start: 10-07-2024 End: 10-07-2024 ambulatory Peggy Muñoz MD Work Phone: [facility] Work Phone: Start: 10-07-2024 End: 10-07-2024 Patient encounter procedure Peggy Muñoz MD Work Phone: [facility] Work Phone: Start: 09-22-2024 End: 09-22-2024 Admission to same day surgery center Peggy Muñoz MD Work Phone: [facility] [place] Start: 09-22-2024 End: 09-22-2024 ambulatory Peggy Muñoz MD Work Phone: [facility] Work Phone: Start: 09-22-2024 Non-patient / Non-visit Vi Muñoz MD Work Phone: [facility]Count[facility] Include [facility] Work Phone: Start: 09-21-2024 End: 09-21-2024 Patient encounter procedure Peggy Muñoz MD Work Phone: [facility]-Pre-Surgical Testing Work Phone: Start: 09-21-2024 End: 09-21-2024 ambulatory Peggy Muñoz MD Work Phone: [facility] Work Phone: Start: 09-21-2024 Encounter for preprocedural laboratory examination Geoffrey Ibrahim [facility] Start: 09-18-2024 End: 09-18-2024 ambulatory [facility] Work Phone: Start: 09-18-2024 End: 09-18-2024 Patient encounter procedure [facility] Work Phone: Start: 05-14-2024 End: 05-14-2024 ambulatory [facility] Start: 05-01-2024 Encounter for other preprocedural examination [facility] Start: 05-01-2024 End: 05-01-2024 ambulatory [facility] Start: 04-29-2024 End: 04-29-2024 ambulatory [facility] Start: 04-18-2023 End: 04-19-2023 ambulatory Tuan Lira Facility:[facility] Start: 03-08-2023 End: 03-09-2023 ambulatory Nat [...] identified in Urine by Culture Urine Culture [facility] Start: 11-18-2024 Urine culture [facility] Start: 11-05-2024 Actin smooth muscle IgG Ab [Units/volume] in Serum [facility] Start: 11-05-2024 [id number]. tumor marker [Mass/volume] in Serum or Plasma [facility] Start: 11-05-2024 Ceruloplasmin [Mass/ volume] in Serum or Plasma [facility] Start: 11-05-2024 Hepatitis A virus Ab [Presence] in Serum by Immunoassay [facility] Start: 11-05-2024 Hepatitis A virus an tibody, IgM type [facility] Start: 11-05-2024 Hepatitis B core ant ibody measurement [facility] Start: 11-05-2024 Hepatitis B core ant ibody measurement, IgM type [facility] Start: 11-05-2024 Hepatitis B virus garcia rface Ab [Presence] in Serum [facility] Start: 11-05-2024 IgG [Mass/volume] in Serum or Plasma [facility] Start: 11-05-2024 Lipoprotein a [Moles/volume] in Serum or Plasma [facility] Start: 11-05-2024 Mitochondria M2 IgG Ab [Units/volume] in Serum [facility] Start: 11-05-2024 [facility] Start: 11-02-2024 Plain X-ray of left elbow XR elbow L T 2V [facility] Start: 11-02-2024 XR Elbow - left 2 Views [facility] Start: 10-20-2024 Urine culture [facility] Start: 10-20-2024 Bacteria identified in Urine by Culture Urine Culture [facility] Start: 10-07-2024 Plain X-ray of left elbow XR elbow L T 2V [facility] Start: 10-07-2024 XR Elbow - left 2 Views [facility] Start: 09-22-2024 [facility] Start: 09-22-2024 [facility] Start: 09-22-2024 Plain X-ray of left elbow XR elbow L T min 3V* [facility] Start: 09-22-2024 XR Elbow - left GE 3 Views [facility] Actin smooth muscle IgG Ab [Units/volume] in Serum [facility] Alpha 1 antitrypsin [Mass/volume] in Serum or Plasma [facility] Alpha 1 antitrypsin [Mass/volume] in Serum or Plasma [facility] Alpha 1 antitrypsin phenotyping [Identifier] in Serum or Plasma by Immunofixation [facility] [id number]. tumor marker [Mass/volume] in Serum or Plasma [facility] Ceruloplasmin [Mass/ volume] in Serum or Plasma [facility] Comprehensive metabo lic 2000 panel - Serum or Plasma [facility] Hepatitis A virus Ab [Presence] in Serum by Immunoassay [facility] Hepatitis A virus an tibody, IgM type [facility] Hepatitis B core ant ibody measurement [facility] Hepatitis B core ant ibody measurement, IgM type [facility] Hepatitis B virus garcia rface Ab [Presence] in Serum [facility] Hepatitis B virus garcia rface Ag [Presence] in Serum or Plasma by Immunoassay [facility] Hepatitis C virus Ig G Ab [Presence] in Serum or Plasma by Immunoassay [facility] HFE gene mutations f ound [Identifier] in Blood or Tissue by Molecular genetics method Nominal [facility] Homogenous nuclear A b pattern [Titer] in Serum [facility] IgG [Mass/volume] in Serum or Plasma [facility] Lipoprotein a [Moles/volume] in Serum or Plasma [facility] Mitochondria M2 IgG Ab [Units/volume] in Serum [facility] Nuclear Ab [Titer] in Serum [facility] Patient Education Know your Meds [facility] Work Phone: Patient referral [facility] Work Phone: [facility] Payers Date Payer Category Payer Private Health Insurance [id number] 2023 Unknown [id number] 1957 Self-pay 1955 Unknown [id number] 1955 Unknown [id number] 1955 Unknown [id number] 1955 Unknown [id number] Medicare [id number] Private Health Insurance [employer] [id number] Unknown [id number] Unknown [facility] [id number] Unknown [id number] Unknown [id number] Unknown [id number] Unknown [id number] Unknown [id number] Unknown [id number] Unknown [id number] Unknown [id number] Worker's Compensation [employer] [facility] [id number] Social History Date Type Detail [facility] Work Phone: Start: 1955 Sex Assigned At Male F [facility] Start: 07-24-2019 Tobacco smoking stat us NHIS Current some day smoker [facility] Start: 09-18-2024 End: 11-27-2024 Sex Male (finding) [facility] Start: 09-21-2024 End: 09-22-2024 Tobacco smoking status NHIS Ex-smoker (finding) [facility] Medical Equipment Procedure Code Equipment Code Equipment Origin al Text Equipment Identifier Dates Open reduction and internal fixation of fracture of humerus Elbow radius prosthesis ()[id number] FDA Start: 09-22-2024 Open reduction and internal fixation of fracture of humerus Elbow radius prosthesis ()[id number] FDA Start: 09-22-2024 Goals Date Patient Goal Desired Activity /State Radiology Diagnostic study note 11-26-2024 Note Date & Type Note Facility 11-26-2024 Radiology Diagnostic study note [facility] [place] [address] CT Scan Report Signed Patient: Gerson Penn MR#: [id number] : 1955 Acct:[id number] Age/Sex: 68 / M ADM Date: 5 Loc: CT Room: Type: [facility] Attending Dr: Derrek Rodgers MD Copies to: [...] Jr., D.O. 11/26/2024 3:27 PM Dictation Location: [place] [address] Transcribed By: [facility] 11/26/24 1527 Dictated By: Gage Noland Jr, DO 11/26/24 1519 Signed By: 11/26/24 1527 [facility] Evaluation note 11-05-2024 Note Date & [...] kidney function Will arrange for screening colonoscopy [facility] Work Phone: Evaluation note 09-18-2024 Note Date & Type Note Facility 09-18-2024 Evaluation note Diagnosis Onset Date Resolution Fracture of coronoid process of left ulna acute September 182024 7:49am Fracture of radial head, left, closed acute August 7:49am [facility] Work Phone: Evaluation note 09-18-2024 Note [...] Other specified postprocedural states noneactive September 8:05am [facility] Work Phone: Evaluation note 09-18-2024 Note Date [...] postprocedural states noneactive November 02, 2024 9:55am [facility] Work Phone: Clinical Note 05-14-2024 Note Date & Type Note Facility 05-14-2024 Note Patient: Gerson Harrison Celia Procedure Information Date/Time: 05/14/24 1200 Procedures: Coronary angiography Right heart cath Location: [facility] COOK PRESSURE 2 BIPLANE / [facility] (Cath) Providers: Taj Otero [...] Plan discussed with attending. 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 [facility] Evaluation note Note Date & Type Note Facility Evaluation note No assessment information availa ble [facility] Work Phone: Evaluation note Note Date & Type Note Facility Evaluation note Diagnosis Onset Date Resolution Fracture of coronoid process of left ulna acute September 182024 7:49am Fracture of radial head, left, closed acute August 7:49am [facility] Work Phone: Evaluation note Note Date & [...] kidney function Will arrange for screening colonoscopy [facility] Work Phone: Summary Purpose Family History No [...] Reason for Visit Chief Complaint Admit Date 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 [facility] 2024 7:49am Reason for Visit Admit Date Fracture of coronoid process of left uln a September 18, 2024 7:49am Fracture of radial head, left, closed Fe bruary 2024 7:49am Chief Complaint Admit Date 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 2024 8:05am Other specified postprocedural states 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 [facility] 2024 7:49am Left Radial Head Fracture [...] Fracture of radial head, left, closed [facility] 2024 8:05am Other specified postprocedural states [facility] 2024 8:05am Fracture of coronoid process of left uln a November 02, 2024 9:55am Fracture of radial head, left, closed [facility] 2024 9:55am Other specified postprocedural states Ap ril 2024 9:55am Chief Complaint Admit Date 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 [facility] 2024 7:49am Left Radial Head Fracture [...] 05, 2024 10:08am Chief Complaint Admit Date 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 [facility] 2024 7:49am Left Radial Head Fracture [...] 2024 11: 25am Chief Complaint Admit Date 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 [facility] 2024 7:49am Left Radial Head Fracture [...] 2024 12: 30pm Chief Complaint Admit Date 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 [facility] 2024 7:49am Left Radial Head Fracture [...] section and content) DATE CREATED AUTHOR 06/17/2020 [facility] DATE CREATED AUTHOR AUTHOR'S ORGANIZ ATION 07/07/2022 [facility] DATE CREATED AUTHOR AUTHOR'S ORGANIZ ATION 04/20/2023 [facility] DATE CREATED AUTHOR AUTHOR'S ORGANIZ ATION 05/19/2024 [facility] DATE CREATED AUTHOR AUTHOR'S ORGANIZ ATION 12/01/2024 [facility] Goals (unrecognized section and [...] BE BASED ON THE PRIMARY CLINICAL RECORDS. [employer] provides no warranty or guarantee of the accuracy or completeness of information in this document.
[2024-12-10 17:38] LABS: Lactate/Lactic Acid 1.7 mmol/L (0.4-2.0)
--- NOTE | 2024-12-10 17:44 | P.HP_ITS ---
HPI H&P: HPI History of Present Illness Chief complaint: sepsis generalized weakness Narrative: Patient presented to the emergency room at the request of the home health nurse, wounds in the sacral and gluteal area getting progressively worse and are now stage II, increasing weakness patient unable to ambulate even with a walker. In ER found to have positive lactic acidosis, white blood cell count normal but left shift consistent with a bacterial process, hyponatremia and acute kidney injury. When I saw patient up in the medical surgical floor, resting comfortably in bed, no chest pain or shortness of breath just generalized weakness, denies abdominal complaint but see abdominal exam Opioid HPI Opioid Management Most Recent Pain and Opioid Data: Last Pain Scale 5 Today, 13:58 Last Pain Intensity 2 11/19/24, 14:26 Last ORT Total Score 0 Today, 17:14 Last ORT Risk Category Low Risk Today, 17:14 Review of Systems ROS Status of ROS 10 or more systems reviewed and unremark able except as noted in history and below [facility] Medical History (Updated 12/10/24 @ 15:49 by Forrest Perez NP) Generalized weakness ?R53.1 - Weakness (ICD-10) Laceration of left forearm ?S51.812A - Laceration without foreign body of left forearm, initial encounter (ICD-10) Chest wall contusion ?S20.219A - Contusion of unspecified front wall of thorax, initial encounter (ICD-10) Head injury ?S09.90XA - Unspecified injury of head, initial encounter (ICD-10) Severe protein-calorie malnutrition ?E43 - Unspecified severe protein-calorie malnutrition (ICD-10) Coagulopathy ?D68.9 - Coagulation defect, unspecified (ICD-10) Hyperbilirubinemia ?E80.6 - Other disorders of bilirubin metabolism (ICD-10) Lactic acidosis ?E87.20 - Acidosis, unspecified (ICD-10) Hyperkalemia ?E87.5 - Hyperkalemia (ICD-10) Thrombocytopenia ?D69.6 - Thrombocytopenia, unspecified (ICD-10) Acute pancreatitis ?K85.90 - Acute pancreatitis without necrosis or infection, unspecified (ICD- 10) Cholelithiasis ?K80.20 - Calculus of gallbladder without cholecystitis without obstruction (ICD-10) Cirrhosis ?K74.60 - Unspecified cirrhosis of liver (ICD-10) Acute kidney injury superimposed on stage 1 chronic kidney disease ?N17.9 - Acute kidney failure, unspecified (ICD-10) ?N18.1 - Chronic kidney disease, stage 1 (ICD-10) Acute UTI ?N39.0 - Urinary tract infection, site not specified (ICD-10) Nausea vomiting and diarrhea ?R11.2 - Nausea with vomiting, unspecified (ICD-10) ?R19.7 - Diarrhea, unspecified (ICD-10) Hypovolemia ?E86.1 - Hypovolemia (ICD-10) Syncope ?R55 - Syncope and collapse (ICD-10) Dehydration ?E86.0 - Dehydration (ICD-10) Surgical History History of left hip replacement ?Z96.642 - Presence of left artificial hip joint (ICD-10) Family History (Updated 11/18/24 @ 09:31 by Yolis Coates, DARY) Father Family history of myocardial infarction Mother Family history of hypertension Family history of cancer Social History (Updated 11/18/24 @ 09:31 by Yolis Coates RN) Within the past year, how often did you have a drink containing alcohol: never Score interpretation: A score less than 4 is consistent with normal alcohol consumption. Smoking status: Former smoker Non-prescribed substance use: denies use Highest level of school completed/degree received: high school graduate Little interest or pleasure in doing things: several days Feeling down, depressed, or hopeless: several days Meds Home Medications and Allergies Home Medications ?Medication ?Instructions ?Recorded ?Confirmed ?Type carvedilol 6.25 mg tablet 6.25 mg PO Q12H 05/27/23 History furosemide 20 mg tablet 40 mg PO DAILY 05/27/2311/26 History potassium chloride 20 mEq 20 meq PO DAILY 05/27/23 History tablet,extended release(part/cryst) (Klor-Con M) ezetimibe 10 mg tablet 10 mg PO DAILY 10/20/2411/26 History amlodipine 2.5 mg tablet 2.5 mg PO DAILY 11/18/24 History aspirin 81 mg capsule 81 mg PO DAILY 11/18/2411/26 History cyanocobalamin (vitamin B-12) 2,000 mcg PO DAILY 11/1812/10/24 History 2,000 mcg tablet,extended release (Vitamin B-12 ER) ferrous sulfate 325 mg (65 mg 325 mg PO BID 11/18/24 0 12/10/24 History iron) tablet (iron) glimepiride 4 mg tablet 4 mg PO DAILY 11/18/2412/10 History olanzapine 2.5 mg tablet 2.5 mg PO DAILY 11/18/24 History lactulose 10 gram/15 mL oral 10 g (15 mL) PO TID #3,78 5 mL 11/20/24 12/10/24 Rx solution quetiapine 25 mg tablet 25 mg PO HS #30 tabs 11/20/ 5 12/10/24 Rx canagliflozin 100 mg tablet 100 mg PO .QD 12/10/24 History (Invokana) citalopram 20 mg tablet 40 mg PO DAILY 12/10/2411/26 History levothyroxine 50 mcg tablet 50 mcg PO .ACB 12/10/24 History liothyronine 5 mcg tablet 5 mcg PO .ACB 12/10/2412/10 History sacubitril 24 mg-valsartan 26 mg 1 tab PO BID 12/10/24 12/10/24 History tablet (Entresto) spironolactone 50 mg tablet 50 mg PO BID 12/10/2411/26 History Allergies Allergy/AdvReac Type Severity Reaction Status Date / Time No Known Drug Allergies Allergy Verified 12/10/24 14:02 Exam Constitutional Vital Signs, click to edit/add: Last Vital Signs Temp 97.8 F 12/10/24 17:14 Pulse 73 12/10/24 17:14 Resp 18 12/10/24 17:14 BP 136/75 12/10/24 17:14 Pulse Ox 96 12/10/24 17:14 O2 Del Method Room Air 12/10/24 17:14 Documenting provider has reviewed patient's vital signs: yes Common normals: no apparent distress, average body habitus, oriented x3, no limitations, healthy appearing, alert and well nourished Respiratory Common normals: normal respiratory effort, no retractions and no use of accessory muscles Cardio Common normals: regular rate, regular rhythm and no murmurs GI Common normals: soft to palpation; negative for Normal to inspection, nondistended, normoactive bowel sounds present (Obese) and tender (Tender, more right sided, borderline rebound) Results Labs Labs: Short CBC 12/10/24 Range/Units 14:15 WBC 8.1 (4.0-11.0) 10^3/uL Hgb 10.3 L (14.0-18.0) g/dL Hct 29.4 L (42.0-54.0) % Plt Count 207 (150-450) 10^3/uL BMP 12/10/24 14:15 Sodium 133 L Potassium 4.9 Chloride 102 Carbon Dioxide 24.4 BUN 48.0 H Creatinine 1.68 H Glucose 106 Calcium 7.9 L Liver Function 12/10/24 Range/Units 14:15 Total Bilirubin 1.7 H (0.2-1.0) mg/dL AST 94 H (15-37) U/L ALT 75 H (16-63) U/L Alkaline Phosphatase 283 H (46-116) U/L Albumin 1.2 L (3.4-5.0) g/dL Urine 12/10/24 Range/Units 15:28 Urine Color Lt. yellow (YELLOW) Urine Clarity Clear (CLEAR) Urine pH 6.0 (5.0-9.0) Ur Specific [place] 1.010 (1.005-1.025) Urine Protein Negative (NEG/TRACE) mg/dL Urine Glucose (UA) Negative (NEGATIVE) mg/dL Assessment and Plan Assessment and Plan (1) Generalized weakness: (2) Sepsis: (3) Abdominal pain: (4) Severe protein-calorie malnutrition: (5) Hyperbilirubinemia: (6) Lactic acidosis: (7) Acute kidney injury superimposed on stage 1 chronic kidney disease: (8) Dehydration: Plan Admission findings: Hypotension, respiratory distress, normal white blood cell count but with left shift consistent with a bacterial process, acute kidney injury (baseline creatinine of 1.02 obtained 1 month ago, now at 1.68 which is 164.7% above baseline with decreased urine output in the last 6 hours would be acute kidney injury stage I), hyponatremia, lactic acidosis, elevated liver function test with lipase results pending. All added together would result in sepsis with uncertain etiology Sepsis with abdominal tenderness, checking CT scan of abdomen and pelvis with contrast, start patient on antibiotics he does have some decubiti in the sacral and gluteal region as a potential source of infection Acute kidney injury stage I as outlined above-IV fluids overnight repeat labs in a.m. Hyponatremia-repeat in a.m. Elevated liver function test-checking CT scan NIDDM-insulin sliding scale Hypothyroidism with low T3-increased dose Depression with anxiety-continue with home medications Chronic combined congestive heart failure-check BNP, continue with home medications Admission status: Patient was recently discharged from rehab facility, patient condition deteriorated at home and currently is unable to ambulate safely, meets criteria for acute sepsis without's i.e. certain etiology, possible intra- abdominal, CT scan is pending, medically necessary treatment will span 2 midnights. Inpatient status.
[2024-12-10 18:23] LABS: INR 1.17; Prothrombin Time 12.2 sec (9.0-11.6)
[2024-12-10 18:35] LABS: Magnesium 1.9 mg/dL (1.8-2.4)
[2024-12-10 18:36] LABS: Troponin I High Sensitivity 11.3 pg/mL (4.0-76.1)
[2024-12-10 18:38] LABS: Ammonia 61 umol/L (11-32)
[2024-12-10] MEDS: 0.9 % SODIUM CHLORIDE 1,000 ML 100 ML IV (20:10)
[2024-12-10] MEDS: PIPERACILLIN SODIUM/TAZOBACTAM 3.375 GM in 0.9 % SODIUM CHLORIDE 50 ML IV (20:10)
[2024-12-10 21:27] LABS: Glucometer 77 mg/dL (74-106)
[2024-12-10] MEDS: SPIRONOLACTONE 25 MG TABLET 50 MG PO (21:27)
[2024-12-10] MEDS: FERROUS SULFATE 325 MG TABLET PO (21:27)
[2024-12-10] MEDS: CARVEDILOL 6.25 MG TABLET PO (21:27)
[2024-12-10] MEDS: QUETIAPINE FUMARATE 25 MG TABLET PO (21:28)
[2024-12-10] MEDS: NYSTATIN 15 GM POWDER 1 APPLIC TOPICAL (21:29)
[2024-12-10 23:25] LABS: Glucometer 57 mg/dL (74-106)
[2024-12-10] MEDS: DEXTROSE 50 %-WATER 25 GM/50 ML SYRINGE IV (23:26)
[2024-12-10 23:54] LABS: Glucometer 109 mg/dL (74-106)
[2024-12-11] VITALS (8 sets, daily range): BP systolic 90–128; BP diastolic 55–70; PULSE 65–95; TEMP 36.3–36.6; O2SAT 93–98
[2024-12-11] MEDS: DEXTROSE 50 %-WATER 25 GM/50 ML SYRINGE IV ×3 (02:18→06:39)
[2024-12-11 02:20] LABS: Glucometer 49 mg/dL (74-106)
[2024-12-11 02:20] LABS: Glucometer 39 mg/dL (74-106)
[2024-12-11 02:38] LABS: Glucometer 103 mg/dL (74-106)
[2024-12-11] MEDS: PIPERACILLIN SODIUM/TAZOBACTAM 3.375 GM in 0.9 % SODIUM CHLORIDE 50 ML IV ×3 (03:16→22:08)
[2024-12-11 04:04] LABS: Glucometer 41 mg/dL (74-106)
[2024-12-11] MEDS: DEXTROSE 5%-0.9% NACL 1,000 ML 1,000 ML 100 ML IV ×3 (04:30→22:00)
[2024-12-11 04:31] LABS: Glucometer 96 mg/dL (74-106)
[2024-12-11 06:20] LABS: Hematocrit 28.8 % (42.0-54.0); Hemoglobin 9.7 g/dL (14.0-18.0); Mean Corpuscular HGB Conc 33.7 g/dL (29.9-35.2); Mean Corpuscular Hemoglobin 35.1 pg (25.9-34.0); Mean Corpuscular Volume 104.3 fL (80.0-94.0); Mean Platelet Volume 10.5 fL (9.5-13.5); Platelet Count 131 10^3/uL (150-450); Red Blood Count 2.76 10^6/uL (4.70-6.10); Red Cell Distribution Width 16.5 % (11.0-15.0); White Blood Count 4.7 10^3/uL (4.0-11.0)
[2024-12-11 06:27] LABS: Ammonia 80 umol/L (11-32)
[2024-12-11 06:29] LABS: Alanine Aminotransferase 72 U/L (16-63); Albumin Globulin Ratio 0.3; Albumin Level 1.1 g/dL (3.4-5.0); Alkaline Phosphatase 249 U/L (46-116); Anion Gap 9.6; Aspartate Amino Transferase 100 U/L (15-37); BUN Creatinine Ratio 32.1; Bilirubin Total 1.4 mg/dL (0.2-1.0); Calcium 7.7 mg/dL (8.5-10.1); Chloride 106 mmol/L (98-107); Estimated GFR (African America >60 (>=60 mL/min/1.73m^2); Estimated GFR (Non-African Ame 51 (>=60 mL/min/1.73m^2); Globulin 3.3 g/dL; Glucose 53 mg/dL (74-106); INR 1.19; Partial Thromboplastin Time 27.9 sec (22.3-36.2); Potassium 4.6 mmol/L (3.5-5.1); Prothrombin Time 12.4 sec (9.0-11.6); Sodium 136 mmol/L (136-145); Total Protein 4.4 g/dL (6.4-8.2)
[2024-12-11 06:39] LABS: Eosinophils Absolute Manual 0.23 10^3/uL (0.00-0.70); Lymphocytes Absolute Manual 0.61 10^3/uL (1.20-3.80); Monocytes Absolute Manual 0.51 10^3/uL (0.30-0.80); Segmented Neut Absolute Manual 3.33 10^3/uL (1.4-6.5)
[2024-12-11] MEDS: LACTULOSE 10 GM/15 ML UD CUP PO ×2 (06:42→09:04)
[2024-12-11] MEDS: LEVOTHYROXINE SODIUM 25 MCG TABLET 50 MCG PO (06:42)
[2024-12-11] MEDS: LIOTHYRONINE SODIUM 5 MCG TABLET 15 MCG PO (06:42)
[2024-12-11 07:00] LABS: Glucometer 253 mg/dL (74-106)
--- NOTE | 2024-12-11 07:43 | P.PN_ITS ---
Progress Note: Subjective Subjective Interval history: Patient does look better this morning. Affect is better this morning. Still complaining of abdominal pain. Exam Constitutional Vital Signs, click to edit/add: Last Vital Signs Temp 97.3 F L 12/11/24 02:46 Pulse 73 12/11/24 02:46 Resp 20 12/11/24 02:46 BP 90/55 12/11/24 02:46 Pulse Ox 98 12/11/24 02:46 O2 Del Method Room Air 12/11/24 02:46 Documenting provider has reviewed patient's vital signs: yes Common normals: no apparent distress, oriented x3, no limitations and alert; negative for average body habitus (Morbid obesity) Chest Common normals: inspection of chest normal and palpation of chest normal Respiratory Common normals: normal respiratory effort, no retractions and no use of accessory muscles Cardio Common normals: regular rate, regular rhythm, S1 normal heart sound and S2 normal heart sound GI Common normals: soft to palpation; negative for Normal to inspection, nondistended, normoactive bowel sounds present (Morbid obesity) and tender (Tenderness persisting throughout abdomen, mild rebound) Progress Note: Objective Labs Labs: Short CBC 12/10/24 12/11/24 Range/Units 14:15 05:56 WBC 8.1 4.7 (4.0-11.0) 10^3/uL Hgb 10.3 L 9.7 L (14.0-18.0) g/dL Hct 29.4 L 28.8 L (42.0-54.0) % Plt Count 207 131 L (150-450) 10^3/uL BMP 12/10/24 12/11/24 14:15 05:56 Sodium 133 L 136 Potassium 4.9 4.6 Chloride 102 106 Carbon Dioxide 24.4 25.0 BUN 48.0 H 45.0 H Creatinine 1.68 H 1.40 H Glucose 106 53 L Calcium 7.9 L 7.7 L Liver Function 12/10/24 12/11/24 Range/Units 14:15 05:56 Total Bilirubin 1.7 H 1.4 H (0.2-1.0) mg/dL AST 94 H 100 H (15-37) U/L ALT 75 H 72 H (16-63) U/L Alkaline Phosphatase 283 H 249 H (46-116) U/L Albumin 1.2 L 1.1 L (3.4-5.0) g/dL Urine /15 Range/Units 15:28 Urine Color Lt. yellow (YELLOW) Urine Clarity Clear (CLEAR) Urine pH 6.0 (5.0-9.0) Ur Specific [place] 1.010 (1.005-1.025) Urine Protein Negative (NEG/TRACE) mg/dL Urine Glucose (UA) Negative (NEGATIVE) mg/dL Progress Note: A&P Assessment and Plan (1) Generalized weakness: (2) Sepsis: (3) Abdominal pain: (4) Severe protein-calorie malnutrition: (5) Hyperbilirubinemia: (6) Lactic acidosis: (7) Acute kidney injury superimposed on stage 1 chronic kidney disease: (8) Dehydration: Plan Admission findings: Hypotension, respiratory distress, normal white blood cell count but with left shift consistent with a bacterial process, acute kidney injury (baseline creatinine of 1.02 obtained 1 month ago, now at 1.68 which is 164.7% above baseline with decreased urine output in the last 6 hours would be acute kidney injury stage I), hyponatremia, lactic acidosis, elevated liver function test with lipase results pending. All added together would result in sepsis with uncertain etiology Sepsis with abdominal tenderness secondary to acute pancreatitis-cirrhotic liver noted on CT scan, fluid around gallbladder, will check ultrasound of gallbladder Acute kidney injury stage I as outlined above-IV fluids overnight repeat labs in a.m.-repeat fluid bolus this morning, still 140% above baseline Thrombocytopenia-monitor daily Iron deficiency anemia-monitor daily Coagulopathy secondary to liver cirrhosis-monitor Hyponatremia-repeat in a.m. History of hypertension-holding hypertensive medications, blood pressure low overnight, repeating fluid bolus Elevated liver function test secondary to his liver cirrhosis-MRI scan of his liver as an outpatient-elevated on some today, continue to monitor Severe protein calorie malnutrition-will do diet supplements starting tomorrow, no need for IV albumin, no peripheral edema NIDDM-with severe hypoglycemia last night, requiring 4 A of D50-on D5 currently, likely wean that off later stable holding all oral hypoglycemics Hypothyroidism with low T3-increased dose Depression with anxiety-affect is somewhat better today Chronic combined congestive heart failure-BNP and high-sensitivity troponins were negative Admission status: Patient was recently discharged from rehab facility, patient condition deteriorated at home and currently is unable to ambulate safely, meets criteria for acute sepsis secondary to acute pancreatitis, medically necessary treatment will span 2 midnights. Inpatient status. ?
--- NOTE | 2024-12-11 08:00 | US_ITS ---
The [address] [address] Patient Name: JAZMYNE PENN MRN: [id number] date: 1955 Sex: M Assigned Patient Location: Current Patient Location: Accession/Order Number: [id number] Exam Date: 12/11/2024 09:30 Report Date: 12/11/2024 09:34 At the request of: PEGGY NEIL MD Procedure: US right upper quadrant EXAMINATION TYPE: US right upper quadrant DATE OF EXAM ORDERED: 12/11/2024 8:26 AM HISTORY: abdominal pain, right upper quadrant pain COMPARISON: 12/10/2024 TECHNIQUE: Realtime imaging limited to the right upper quadrant was performed. FINDINGS: The liver has lobulated margins consistent with hepatic cirrhosis. This is similar to the prior CT. There is a small amount of intra-abdominal ascites. There is a hypoechoic structure in the left hepatic lobe measuring 1.1 x 0.8 x 1.5 cm in greatest dimension. This is of uncertain etiology. Notably there are multiple hypoattenuating lesions in the liver on the most recent CT. If there is ongoing clinical concern for hepatocellular carcinoma, further investigation with contrast-enhanced MRI is recommended. Hepatopedal flow is noted in the main portal vein. The gallbladder appears within normal limits without evidence of cholelithiasis. The gallbladder wall measures 3 mm in thickness. The common bile but measures 5 mm in diameter. No intrahepatic or extrahepatic biliary dilatation is seen. Hepatopedal flow is noted in the main portal vein. Partial visualization of the right kidney reveals no gross hydronephrosis. Partial visualization of the pancreas reveals no abnormality. US/US right upper quadrant IMPRESSION: The liver has lobulated margins consistent with hepatic cirrhosis. This is similar to the prior CT. There is a small amount of intra-abdominal ascites. There is a hypoechoic structure in the left hepatic lobe measuring 1.1 x 0.8 x 1.5 cm in greatest dimension. This is of uncertain etiology. Notably there are multiple hypoattenuating lesions in the liver on the most recent CT. If there is ongoing clinical concern for hepatocellular carcinoma, further investigation with contrast-enhanced MRI is recommended. Impression dictated by: Clark Méndez M.D. 12/11/2024 9:34 AM Dictation Location: [place] [address] Electronically authenticated by: [id number] Y Date: 12/11/2024 09:34
[2024-12-11 08:30] LABS: Glucometer 57 mg/dL (74-106)
[2024-12-11] MEDS: 0.9 % SODIUM CHLORIDE 1,000 ML 500 ML IV (09:03)
[2024-12-11] MEDS: FERROUS SULFATE 325 MG TABLET PO ×2 (09:04→22:01)
[2024-12-11] MEDS: ASPIRIN 81 MG TAB.CHEW PO (09:04)
[2024-12-11] MEDS: POTASSIUM CHLORIDE 10 MEQ ER TABLET 20 MEQ PO (09:04)
[2024-12-11] MEDS: CITALOPRAM HYDROBROMIDE 20 MG TABLET 40 MG PO (09:04)
[2024-12-11] MEDS: GLUCAGON 1 MG/ML VIAL IM ×3 (09:05→09:50)
[2024-12-11] MEDS: NYSTATIN 15 GM POWDER 1 APPLIC TOPICAL ×2 (09:06→22:01)
[2024-12-11] MEDS: DEXAMETHASONE SOD PHOS 10 MG/ML VIAL IV (09:09)
[2024-12-11 09:29] LABS: Glucometer 61 mg/dL (74-106)
[2024-12-11 09:29] LABS: Glucometer 47 mg/dL (74-106)
--- NOTE | 2024-12-11 09:33 | SWNOTE1 ---
Important Message from [employer] reviewed and discussed with patient. Pt. verbalized understanding and signed the form. Original given to patient and copy placed in patient?s chart.
--- NOTE | 2024-12-11 09:34 | SWNOTE1 ---
SW met with pt to discuss dc needs. Nurse in room as well. Pt was at [facility] not long ago and was cut by his insurance. He did not feel he was ready to go home and voiced it did not go well at home. Pt does feel he needs to return to rehab. Pt voiced he liked the therapy team at the [facility] and prefers to return there. SW and pt spoke about insurance and that his insurance likely cut him because they felt he was at baseline. SW let him know it is likely his insurance will do the same thing. His insurance gives approval for a certain number of days, then can give more days or cut him depending how he does with therapy, etc. SW asked pt if him and have spoke about detention care? Pt voiced they did talk about it, but do not have the funds. SW did let him know that they could apply for Medicaid, unsure of there financial situation. SW advised that pt's would not have to sell the home since she is still living there. SW let him know the facility he goes to can assist with that. Pt voiced understanding. SW asked permission to call and update his , he gave permission. Referral sent to [facility]. Referral included face sheet, ED note, H&P, provider notes, case management report, nursing notes, diagnostic imaging, med list, and PT/OT notes.
[2024-12-11 09:57] LABS: Glucometer 66 mg/dL (74-106)
[2024-12-11 10:07] LABS: Glucometer 52 mg/dL (74-106)
[2024-12-11] MEDS: DEXTROSE/DEXTRIN/MALTOSE 31 GM GEL.INSTANT GLUCOSE PO (10:25)
[2024-12-11 10:48] LABS: Glucometer 61 mg/dL (74-106)
[2024-12-11 10:59] LABS: Glucometer 71 mg/dL (74-106)
--- NOTE | 2024-12-11 11:57 | SWNOTE1 ---
[facility] is able to accept and started precert. SW to let pt know.
--- NOTE | 2024-12-11 13:24 | SWNOTE1 ---
WAGNER received message from Renate at [facility] and insurance needs PT note. SW to check and make sure PT coming back to eval.
--- NOTE | 2024-12-11 14:02 | SWNOTE1 ---
WAGNER faxed PT note to Renate at [facility] for precert. Renate took everything to nurses station and advised WAGNER that [facility] will call if pt is approved over the weekend. WAGNER did complete HENS and took packet to the floor.
[2024-12-11 14:18] LABS: Internal Control Within Normal Limits; Occult Blood Positive
[2024-12-11] MEDS: FUROSEMIDE 40 MG/4 ML VIAL IVP (14:48)
[2024-12-11] MEDS: SPIRONOLACTONE 25 MG TABLET 50 MG PO ×2 (14:48→22:00)
[2024-12-11] MEDS: PANTOPRAZOLE SODIUM 40 MG VIAL IV (14:49)
[2024-12-11] MEDS: VANCOMYCIN HCL 2,000 MG in 0.9 % SODIUM CHLORIDE 500 ML 250 MG IV (17:08)
--- NOTE | 2024-12-11 19:32 | NUTR.NU ---
Pt admitted 12/10/24 w/dx sepsis, CHF, abdominal pain, severe PCM. He shows significant weight gain since 11/18/24 admission d/t 4+ edema to abdomen and extremities. Current NPO status; physician plans to begin nutritional supplements tomorrow; recommend Ensure Clear if GI pain continues. See Nutrition Assessment dated 11/18/24 for additional information. Will continue to follow PRN.
[2024-12-11] MEDS: QUETIAPINE FUMARATE 25 MG TABLET PO (22:00)
[2024-12-11] MEDS: LACTULOSE 10 GM/15 ML UD CUP 20 GM PO (22:00)
[2024-12-12] VITALS (9 sets, daily range): BP systolic 109–137; BP diastolic 56–79; PULSE 87–97; TEMP 36.5–36.8; O2SAT 91–96
[2024-12-12] MEDS: DEXTROSE 5%-0.9% NACL 1,000 ML 1,000 ML 150 ML IV (03:30)
[2024-12-12] MEDS: PIPERACILLIN SODIUM/TAZOBACTAM 3.375 GM in 0.9 % SODIUM CHLORIDE 50 ML IV ×3 (05:28→23:28)
[2024-12-12] MEDS: LEVOTHYROXINE SODIUM 25 MCG TABLET 50 MCG PO (05:31)
[2024-12-12] MEDS: LACTULOSE 10 GM/15 ML UD CUP 20 GM PO (05:32)
[2024-12-12] MEDS: LIOTHYRONINE SODIUM 5 MCG TABLET 15 MCG PO (05:33)
[2024-12-12 06:31] LABS: Hematocrit 31.5 % (42.0-54.0); Hemoglobin 10.4 g/dL (14.0-18.0); Immature Granulocytes Abs Auto 0.03 10^3/uL (0.00-0.03); Immature Granulocytes Pct Auto 0.5 % (0.0-0.5); Lymphocytes Absolute Auto 0.3 10^3/uL (1.2-3.8); Lymphocytes Percent Auto 5.6 % (20.5-60.0); Mean Corpuscular Hemoglobin 34.1 pg (25.9-34.0); Mean Corpuscular Volume 103.3 fL (80.0-94.0); Mean Platelet Volume 10.4 fL (9.5-13.5); Monocytes Absolute Auto 0.6 10^3/uL (0.3-0.8); Neutrophils Absolute Auto 5.1 10^3/uL (1.4-6.5); Neutrophils Percent Auto 83.9 % (43.0-75.0); Platelet Count 160 10^3/uL (150-450); Red Blood Count 3.05 10^6/uL (4.70-6.10); Red Cell Distribution Width 16.5 % (11.0-15.0); White Blood Count 6.1 10^3/uL (4.0-11.0)
[2024-12-12 06:43] LABS: Alanine Aminotransferase 135 U/L (16-63); Albumin Globulin Ratio 0.4; Albumin Level 1.3 g/dL (3.4-5.0); Alkaline Phosphatase 274 U/L (46-116); Anion Gap 11.4; Aspartate Amino Transferase 394 U/L (15-37); BUN Creatinine Ratio 25.7; Bilirubin Total 1.9 mg/dL (0.2-1.0); Chloride 110 mmol/L (98-107); Estimated GFR (African America 60 (>=60 mL/min/1.73m^2); Estimated GFR (Non-African Ame 49 (>=60 mL/min/1.73m^2); Globulin 3.6 g/dL; Glucose 137 mg/dL (74-106); Potassium 4.4 mmol/L (3.5-5.1); Sodium 141 mmol/L (136-145); Total Protein 4.9 g/dL (6.4-8.2)
[2024-12-12 06:44] LABS: Ammonia 28 umol/L (11-32)
[2024-12-12 06:50] LABS: Calcium 7.8 mg/dL (8.5-10.1)
--- NOTE | 2024-12-12 09:23 | P.PN_ITS ---
Progress Note: Subjective Subjective Interval history: Affect flores still seems pretty good, no distress Exam Constitutional Vital Signs, click to edit/add: Last Vital Signs Temp 97.8 F 12/12/24 08:03 Pulse 95 H 12/12/24 08:03 Resp 18 12/12/24 08:03 BP 114/63 12/12/24 08:03 Pulse Ox 94 L 12/12/24 08:03 O2 Del Method Room Air 12/12/24 08:03 Documenting provider has reviewed patient's vital signs: yes Common normals: no apparent distress, oriented x3 and alert; negative for average body habitus (Morbid obesity) Chest Common normals: inspection of chest normal Respiratory Common normals: normal respiratory effort; not clear to ascultation bilaterally Auscultation: rales Cardio Common normals: regular rate, regular rhythm and no murmurs GI Common normals: soft to palpation and non-tender (No tenderness today); negative for Normal to inspection, nondistended, normoactive bowel sounds present (Morbid obesity) Progress Note: Objective Labs Labs: Short CBC 12/12/24 Range/Units 06:15 WBC 6.1 (4.0-11.0) 10^3/uL Hgb 10.4 L (14.0-18.0) g/dL Hct 31.5 L (42.0-54.0) % Plt Count 160 (150-450) 10^3/uL BMP 12/12/24 06:15 Sodium 141 Potassium 4.4 Chloride 110 H Carbon Dioxide 24.0 BUN 37.0 H Creatinine 1.44 H Glucose 137 H Calcium 7.8 L Liver Function 12/12/24 Range/Units 06:15 Total Bilirubin 1.9 H (0.2-1.0) mg/dL AST 394 H (15-37) U/L ALT 135 H (16-63) U/L Alkaline Phosphatase 274 H (46-116) U/L Albumin 1.3 L (3.4-5.0) g/dL Progress Note: A&P Assessment and Plan (1) Generalized weakness: (2) Sepsis: (3) Abdominal pain: (4) Severe protein-calorie malnutrition: (5) Hyperbilirubinemia: (6) Lactic acidosis: (7) Acute kidney injury superimposed on stage 1 chronic kidney disease: (8) Dehydration: Plan Admission findings: Hypotension, respiratory distress, normal white blood cell count but with left shift consistent with a bacterial process, acute kidney injury (baseline creatinine of 1.02 obtained 1 month ago, now at 1.68 which is 164.7% above baseline with decreased urine output in the last 6 hours would be acute kidney injury stage I), hyponatremia, lactic acidosis, elevated liver function test with lipase results pending. All added together would result in sepsis with uncertain etiology Sepsis with abdominal tenderness secondary to acute pancreatitis-tenderness is resolved, lipase is back to normal, will advance diet, low-fat diet Hyperammonemia-improved today, cut back on lactulose Acute kidney injury stage I as outlined above-still at 144% above baseline, but now with some fluid overload secondary to the above treatment Fluid overload with acute combined congestive heart failure complicated by chronic combined congestive heart failure--more edema peripherally and now lungs with rales-Bumex drip, 10 hours Acute blood loss anemia with positive Hemoccult, on Protonix-hemoglobin improved today Thrombocytopenia-monitor daily-improved Iron deficiency anemia-monitor daily Coagulopathy secondary to liver cirrhosis-monitor Hyponatremia-repeat in a.m. History of hypertension-continue to hold hypertensive medications Elevated liver function test secondary to his liver cirrhosis-elevated somewhat today, still with plan for outpatient MRI information sent to office Severe protein calorie malnutrition-start patient on Ensure Plus, Pro-Stat and [place] NIDDM-with severe hypoglycemia last night,-so far hypoglycemia is resolved, taking off D5 today monitor closely Hypothyroidism with low T3-increased dose Depression with anxiety-continue to adjust medications Admission status: With sepsis secondary to acute pancreatitis and acute abdomen, medically necessary treatment spanning 2 midnights. Inpatient status ?
[2024-12-12] MEDS: JUVEN PACKET 1 PACKET PO ×2 (10:11→23:26)
[2024-12-12] MEDS: ENSURE HP 237 ML LIQUID PO ×2 (10:11→23:26)
[2024-12-12] MEDS: ASPIRIN 81 MG TAB.CHEW PO (10:12)
[2024-12-12] MEDS: SPIRONOLACTONE 25 MG TABLET 50 MG PO ×2 (10:12→23:27)
[2024-12-12] MEDS: PANTOPRAZOLE SODIUM 40 MG VIAL IV (10:12)
[2024-12-12] MEDS: PROSTAT 15 GM PROTEIN/100 CAL 30 ML LIQUID PACKET PO ×2 (10:12→23:26)
[2024-12-12] MEDS: OLANZapine 5 MG TABLET 2.5 MG PO (10:12)
[2024-12-12] MEDS: POTASSIUM CHLORIDE 10 MEQ ER TABLET 20 MEQ PO (10:13)
[2024-12-12] MEDS: FERROUS SULFATE 325 MG TABLET PO ×2 (10:13→23:26)
[2024-12-12] MEDS: NYSTATIN 15 GM POWDER 1 APPLIC TOPICAL ×2 (10:14→23:28)
[2024-12-12] MEDS: BUMETANIDE 10 MG in 0.9 % SODIUM CHLORIDE 160 ML 20 MG IV (10:14)
[2024-12-12] MEDS: CITALOPRAM HYDROBROMIDE 20 MG TABLET 40 MG PO (10:34)
--- NOTE | 2024-12-12 11:28 | PT.DAILY ---
Physical Therapy Daily Note PT Daily Note/Assess Start: 12/12/24 11:24 Freq: Status: Active Protocol: Document 12/12/24 11:24 EMELI (Rec: 12/12/24 11:27 EMELI [id number]) Physical Therapy Daily Note/Assessment Time In/Time Out Time In 11:00 Time Out 11:14 Pain In Pain N/A Pain Out Pain N/A Subjective Subjective Pt supine upon arrival. Agrees to PT. Wishes to get into BS chair. Therapeutic Activity Treatment Bed Mobility Ability Maximum Assist Therapeutic Activity Supine>sit with MaxA to advance upper body to sit EOB. Comments Able to sit EOB unsupported without LOB. Sit>stand CGA but gets urge to have BM. Able to place bed quinones under him for him to sit and have BM at EOB. Pt sit>stand CGA and requires assistance for pericare. Pt static stands at RW 30 sec without difficulty. Pt amb 5' to BS chair with RW, CGA and assist for IV lines and purewick lines. Pt remains in BS chair with feet elevated and call light within reach. Summary Daily Note Summary 1 assist vs 2 assist today for transfers and amb. Improved mobility. Edit Result 12/12/24 11:24 EMELI (Rec: 12/12/24 11:28 EMELI [id number]) Physical Therapy Daily Note/Assessment Therapeutic Activity Time Therapeutic Activity 10 Minutes (minutes) Therapeutic Activity 1 Units Total Physical Therapy Time Total Therapy 10 Minutes Total Physical 1 Therapy Units
[2024-12-12] MEDS: LACTULOSE 10 GM/15 ML BOTTLE 237 ML PO (15:09)
[2024-12-12] MEDS: VANCOMYCIN HCL 2,000 MG in 0.9 % SODIUM CHLORIDE 500 ML 250 MG IV (17:47)
[2024-12-12] MEDS: QUETIAPINE FUMARATE 25 MG TABLET 50 MG PO (23:27)
[2024-12-13] VITALS (11 sets, daily range): BP systolic 106–132; BP diastolic 62–80; PULSE 85–98; TEMP 36.1–36.7; O2SAT 91–95
[2024-12-13] MEDS: PIPERACILLIN SODIUM/TAZOBACTAM 3.375 GM in 0.9 % SODIUM CHLORIDE 50 ML IV ×3 (04:13→20:44)
[2024-12-13 06:28] LABS: Eosinophils Absolute Auto 0.1 10^3/uL (0.0-0.7); Eosinophils Percent Auto 1.4 % (0.9-7.0); Hematocrit 31.8 % (42.0-54.0); Hemoglobin 10.5 g/dL (14.0-18.0); Immature Granulocytes Abs Auto 0.04 10^3/uL (0.00-0.03); Immature Granulocytes Pct Auto 0.6 % (0.0-0.5); Lymphocytes Absolute Auto 0.6 10^3/uL (1.2-3.8); Lymphocytes Percent Auto 7.9 % (20.5-60.0); Mean Corpuscular Hemoglobin 34.5 pg (25.9-34.0); Mean Corpuscular Volume 104.6 fL (80.0-94.0); Mean Platelet Volume 10.3 fL (9.5-13.5); Monocytes Absolute Auto 1.1 10^3/uL (0.3-0.8); Monocytes Percent Auto 15.3 % (1.7-12.0); Neutrophils Absolute Auto 5.4 10^3/uL (1.4-6.5); Neutrophils Percent Auto 74.8 % (43.0-75.0); Platelet Count 185 10^3/uL (150-450); Red Blood Count 3.04 10^6/uL (4.70-6.10); Red Cell Distribution Width 16.4 % (11.0-15.0); White Blood Count 7.2 10^3/uL (4.0-11.0)
[2024-12-13] MEDS: LIOTHYRONINE SODIUM 5 MCG TABLET 15 MCG PO (06:29)
[2024-12-13] MEDS: LEVOTHYROXINE SODIUM 25 MCG TABLET 50 MCG PO (06:30)
[2024-12-13 06:38] LABS: Ammonia 42 umol/L (11-32)
[2024-12-13 06:49] LABS: Alanine Aminotransferase 120 U/L (16-63); Albumin Globulin Ratio 0.3; Albumin Level 1.2 g/dL (3.4-5.0); Alkaline Phosphatase 271 U/L (46-116); Anion Gap 10.1; Aspartate Amino Transferase 223 U/L (15-37); BUN Creatinine Ratio 27.2; Bilirubin Total 1.6 mg/dL (0.2-1.0); C Reactive Protein 1.43 mg/dL (<=0.50); Calcium 7.9 mg/dL (8.5-10.1); Carbon Dioxide 26.6 mmol/L (21.0-32.0); Chloride 108 mmol/L (98-107); Estimated GFR (African America 56 (>=60 mL/min/1.73m^2); Estimated GFR (Non-African Ame 46 (>=60 mL/min/1.73m^2); Globulin 3.6 g/dL; Glucose 139 mg/dL (74-106); Potassium 4.7 mmol/L (3.5-5.1); Sodium 140 mmol/L (136-145); Total Protein 4.8 g/dL (6.4-8.2)
--- NOTE | 2024-12-13 08:31 | P.PN_ITS ---
Progress Note: Subjective Subjective Interval history: Sleeping but awakens easily, no complaints, denies abdominal pain, no shortness of breath Exam Constitutional Vital Signs, click to edit/add: Last Vital Signs Temp 97.4 F L 12/13/24 04:00 Pulse 90 12/13/24 04:00 Resp 18 12/13/24 04:00 BP 117/70 12/13/24 04:00 Pulse Ox 93 L 12/13/24 04:01 O2 Del Method Room Air 12/13/24 04:01 Documenting provider has reviewed patient's vital signs: yes Common normals: no apparent distress Chest Common normals: inspection of chest normal Respiratory Common normals: normal respiratory effort, no retractions and no use of accessory muscles Cardio Common normals: regular rate, regular rhythm and no murmurs GI Common normals: negative for Normal to inspection, nondistended, normoactive bowel sounds present (Morbidly obese) and tender (Mild tenderness today) Progress Note: Objective Labs Labs: Short CBC 12/13/24 Range/Units 06:16 WBC 7.2 (4.0-11.0) 10^3/uL Hgb 10.5 L (14.0-18.0) g/dL Hct 31.8 L (42.0-54.0) % Plt Count 185 (150-450) 10^3/uL BMP 12/13/24 06:16 Sodium 140 Potassium 4.7 Chloride 108 H Carbon Dioxide 26.6 BUN 41.0 H Creatinine 1.51 H Glucose 139 H Calcium 7.9 L Liver Function 12/13/24 Range/Units 06:16 Total Bilirubin 1.6 H (0.2-1.0) mg/dL AST 223 H (15-37) U/L ALT 120 H (16-63) U/L Alkaline Phosphatase 271 H (46-116) U/L Albumin 1.2 L (3.4-5.0) g/dL Progress Note: A&P Assessment and Plan (1) Generalized weakness: (2) Sepsis: (3) Abdominal pain: (4) Severe protein-calorie malnutrition: (5) Hyperbilirubinemia: (6) Lactic acidosis: (7) Acute kidney injury superimposed on stage 1 chronic kidney disease: (8) Dehydration: Plan Admission findings: Hypotension, respiratory distress, normal white blood cell count but with left shift consistent with a bacterial process, acute kidney injury (baseline creatinine of 1.02 obtained 1 month ago, now at 1.68 which is 164.7% above baseline with decreased urine output in the last 6 hours would be acute kidney injury stage I), hyponatremia, lactic acidosis, elevated liver function test with lipase results pending. All added together would result in sepsis with uncertain etiology Sepsis with abdominal tenderness secondary to acute pancreatitis-lipase is back elevated some, tenderness is returned also, consider ultrasound or CT scan tomorrow, so far no increase in abdominal pain with eating's will progress with that, but maintain strict fat-free diet Hyperammonemia-elevated slightly today, adjust lactulose Acute kidney injury stage I as outlined above-still at 150 % above baseline,- but need to keep continue to work on edema, stopping vancomycin Fluid overload with acute combined congestive heart failure complicated by chronic combined congestive heart failure--good diuresis in the last day or so, repeat Bumex drip again today but needs to be over 20 hours to try to protect kidneys Acute blood loss anemia with positive Hemoccult, on Protonix-hemoglobin improved today Thrombocytopenia-monitor daily-results normal Iron deficiency anemia-see above Coagulopathy secondary to liver cirrhosis-monitor Hyponatremia-resolved normal History of hypertension-BP keeping stable, restart Entresto to improve edema Elevated liver function test secondary to his liver cirrhosis-elevated somewhat today, still with plan for outpatient MRI information sent to office Severe protein calorie malnutrition-start patient on Ensure Plus, Pro-Stat and Marco Antonio NIDDM-hypoglycemia appears to be resolved, now sugars creeping up, add back Invokana Hypothyroidism with low T3-increased dose Depression with anxiety-continue to adjust medications Admission status: With sepsis secondary to acute pancreatitis and acute abdomen, medically necessary treatment spanning 2 midnights. Inpatient status ?
[2024-12-13] MEDS: JUVEN PACKET 1 PACKET PO ×2 (09:34→20:45)
[2024-12-13] MEDS: DOXYCYCLINE MONOHYDRATE 100 MG CAPSULE PO ×2 (09:34→20:46)
[2024-12-13] MEDS: PANTOPRAZOLE SODIUM 40 MG VIAL IV (09:34)
[2024-12-13] MEDS: PROSTAT 15 GM PROTEIN/100 CAL 30 ML LIQUID PACKET PO ×2 (09:34→20:45)
[2024-12-13] MEDS: CITALOPRAM HYDROBROMIDE 20 MG TABLET 40 MG PO (09:34)
[2024-12-13] MEDS: POTASSIUM CHLORIDE 10 MEQ ER TABLET 20 MEQ PO (09:34)
[2024-12-13] MEDS: OLANZapine 5 MG TABLET 2.5 MG PO (09:34)
[2024-12-13] MEDS: ENSURE HP 237 ML LIQUID PO ×2 (09:34→20:45)
[2024-12-13] MEDS: ASPIRIN 81 MG TAB.CHEW PO (09:35)
[2024-12-13] MEDS: FERROUS SULFATE 325 MG TABLET PO ×2 (09:35→20:46)
[2024-12-13] MEDS: CANAGLIFLOZIN 100 MG TABLET PO (09:35)
[2024-12-13] MEDS: SPIRONOLACTONE 25 MG TABLET 50 MG PO ×2 (09:35→20:45)
[2024-12-13] MEDS: SACUBITRIL/VALSARTAN 24 MG-26 MG TABLET 1 TAB PO ×2 (09:35→20:45)
[2024-12-13] MEDS: BUMETANIDE 10 MG in 0.9 % SODIUM CHLORIDE 160 ML IV (09:36)
[2024-12-13] MEDS: NYSTATIN 15 GM POWDER 1 APPLIC TOPICAL ×2 (09:36→20:46)
[2024-12-13] MEDS: LACTULOSE 10 GM/15 ML BOTTLE 237 ML 20 GM PO (09:37)
[2024-12-13] MEDS: INSULIN ASPART 300 UNIT/3 ML PEN SUBQ ×2 (16:53→21:55)
[2024-12-13] MEDS: QUETIAPINE FUMARATE 25 MG TABLET 50 MG PO (21:53)
[2024-12-14] MEDS: PIPERACILLIN SODIUM/TAZOBACTAM 3.375 GM in 0.9 % SODIUM CHLORIDE 50 ML IV ×2 (04:06→11:59)
[2024-12-14] MEDS: LIOTHYRONINE SODIUM 5 MCG TABLET 15 MCG PO (05:34)
[2024-12-14] MEDS: LEVOTHYROXINE SODIUM 25 MCG TABLET 50 MCG PO (05:35)
[2024-12-14 05:52] LABS: Basophils Percent Auto 0.2 % (0.2-2.0); Eosinophils Absolute Auto 0.2 10^3/uL (0.0-0.7); Eosinophils Percent Auto 3.2 % (0.9-7.0); Hematocrit 30.2 % (42.0-54.0); Hemoglobin 10.3 g/dL (14.0-18.0); Immature Granulocytes Abs Auto 0.05 10^3/uL (0.00-0.03); Immature Granulocytes Pct Auto 1.1 % (0.0-0.5); Lymphocytes Absolute Auto 0.6 10^3/uL (1.2-3.8); Lymphocytes Percent Auto 12.4 % (20.5-60.0); Mean Corpuscular HGB Conc 34.1 g/dL (29.9-35.2); Mean Corpuscular Hemoglobin 35.5 pg (25.9-34.0); Mean Corpuscular Volume 104.1 fL (80.0-94.0); Mean Platelet Volume 10.1 fL (9.5-13.5); Monocytes Absolute Auto 0.8 10^3/uL (0.3-0.8); Monocytes Percent Auto 17.6 % (1.7-12.0); Neutrophils Absolute Auto 3.1 10^3/uL (1.4-6.5); Neutrophils Percent Auto 65.5 % (43.0-75.0); Platelet Count 138 10^3/uL (150-450); Red Cell Distribution Width 16.3 % (11.0-15.0); White Blood Count 4.7 10^3/uL (4.0-11.0)
[2024-12-14 06:28] LABS: Ammonia 43 umol/L (11-32)
[2024-12-14 07:00] VITALS: BP 102/64; PULSE 92; TEMP 36.5; O2SAT 93
--- NOTE | 2024-12-14 07:09 | P.PN_ITS ---
Progress Note: Subjective Subjective Interval history: Sleeping with CPAP in place, awakens easily answers questions appropriately Exam Constitutional Vital Signs, click to edit/add: Last Vital Signs Temp 97 F L 12/13/24 23:44 Pulse 95 H 12/13/24 23:44 Resp 18 12/13/24 23:44 BP 106/62 12/13/24 23:44 Pulse Ox 95 12/13/24 23:44 O2 Del Method Home BIPAP / CPAP 12/14/24 03:00 Documenting provider has reviewed patient's vital signs: yes Common normals: no apparent distress Respiratory Common normals: normal respiratory effort and no retractions Cardio Common normals: regular rate and regular rhythm GI Common normals: soft to palpation; negative for Normal to inspection, nondistended, normoactive bowel sounds present (Obese) and tender (Tender again today) Progress Note: Objective Labs Labs: Short CBC 12/14/24 Range/Units 05:43 WBC 4.7 (4.0-11.0) 10^3/uL Hgb 10.3 L (14.0-18.0) g/dL Hct 30.2 L (42.0-54.0) % Plt Count 138 L (150-450) 10^3/uL Progress Note: A&P Assessment and Plan (1) Generalized weakness: (2) Sepsis: (3) Abdominal pain: (4) Severe protein-calorie malnutrition: (5) Hyperbilirubinemia: (6) Lactic acidosis: (7) Acute kidney injury superimposed on stage 1 chronic kidney disease: (8) Dehydration: Plan Admission findings: Hypotension, respiratory distress, normal white blood cell count but with left shift consistent with a bacterial process, acute kidney injury (baseline creatinine of 1.02 obtained 1 month ago, now at 1.68 which is 164.7% above baseline with decreased urine output in the last 6 hours would be acute kidney injury stage I), hyponatremia, lactic acidosis, elevated liver function test with lipase results pending. All added together would result in sepsis with uncertain etiology Sepsis with abdominal tenderness secondary to acute pancreatitis-lipase improved today, check ultrasound of abdomen with abdominal tenderness persisting, if unable to get good windows may need CT scan Hyperammonemia-slightly elevated today, maintain current dosing, missed a dose yesterday Acute kidney injury stage I as outlined above-up again today, good diuresis yesterday, will try just IV Lasix today twice daily Fluid overload with acute combined congestive heart failure complicated by chronic combined congestive heart failure--over 7 L diuresed yesterday, IV Lasix today Acute blood loss anemia with positive Hemoccult, on Protonix-hemoglobin down slightly today Thrombocytopenia-monitor daily-results normal Iron deficiency anemia-see above Coagulopathy secondary to liver cirrhosis-monitor Hyponatremia-resolved normal History of hypertension-BP keeping stable, restart Entresto to improve edema Elevated liver function test secondary to his liver cirrhosis-elevated somewhat today, still with plan for outpatient MRI information sent to office Severe protein calorie malnutrition-start patient on Ensure Plus, Pro-Stat and Marco Antonio NIDDM-hypoglycemia appears to be resolved, now sugars creeping up, add back Invokana Hypothyroidism with low T3-increased dose Depression with anxiety-continue to adjust medications Admission status: With sepsis secondary to acute pancreatitis and acute abdomen, medically necessary treatment spanning 2 midnights. Inpatient status ?
[2024-12-14 07:17] LABS: Alanine Aminotransferase 104 U/L (16-63); Albumin Globulin Ratio 0.3; Albumin Level 1.2 g/dL (3.4-5.0); Alkaline Phosphatase 244 U/L (46-116); Anion Gap 8.9; Aspartate Amino Transferase 132 U/L (15-37); BUN Creatinine Ratio 34.4; Bilirubin Total 1.8 mg/dL (0.2-1.0); Calcium 8.4 mg/dL (8.5-10.1); Carbon Dioxide 29.7 mmol/L (21.0-32.0); Chloride 107 mmol/L (98-107); Estimated GFR (African America 53 (>=60 mL/min/1.73m^2); Estimated GFR (Non-African Ame 43 (>=60 mL/min/1.73m^2); Globulin 3.6 g/dL; Glucose 112 mg/dL (74-106); Potassium 4.6 mmol/L (3.5-5.1); Sodium 141 mmol/L (136-145); Total Protein 4.8 g/dL (6.4-8.2)
--- NOTE | 2024-12-14 08:38 | CM.NOTE ---
Rounds made with Dr. Muñoz. Dr. Muñoz reviews findings with Mr. Russell. Repeat Ultrasound abd today.
--- NOTE | 2024-12-14 10:15 | PT.DAILY ---
Physical Therapy Daily Note PT Daily Note/Assess Start: 12/12/24 11:24 Freq: Status: Active Protocol: Document 12/14/24 10:10 EMELI (Rec: 12/14/24 10:15 EMELI [id number]) Physical Therapy Daily Note/Assessment Time In/Time Out Time In 09:40 Time Out 10:05 Pain In Pain N/A Pain Out Pain N/A Subjective Subjective Pt supine upon arrival. Agreeable to PT. No new complaints. Therapeutic Exercise Time Therapeutic Exercise 8 Minutes (minutes) Therapeutic Exercise 1 Units Therapeutic Exercise Treatment Therapeutic Exercise Seated bilat LE strengthening ex complete while sitting Treatment EOB unsupported without LOB. Therapeutic Activity Time Therapeutic Activity 15 Minutes (minutes) Therapeutic Activity 1 Units Therapeutic Activity Treatment Bed Mobility Ability Maximum Assist Chair Transfer Contact Guard Assist Ability Therapeutic Activity Supine>sit EOB with MaxA to advance upper body to sit Comments EOB. Once EOB pt able to maintain upright seated balance without outside support. Sits EOB 12 min without LOB. Pt wishes to be washed up after seated ex are complete. Pt requires set up only for upper body washing. Assisted with washing his hair and back and periarea. Doffed gown and donned new. Sit>stand CGA with bed elevated. Pt static stands for 2 min while pericare is washed and cream/powder applied. Pt amb 15' around bed to BS chair with RW, CGA with slow dewayne noticed. Remains in BS chair with nursing present. Call light within reach and needs met. Total Physical Therapy Time Total Therapy 23 Minutes Total Physical 2 Therapy Units Summary Daily Note Summary Improved gait ability. 1 person vs 2 person assist for bed mobility. Would benefit from SNF to regain strength and endurance to return to PLOF.
[2024-12-14] MEDS: ENSURE HP 237 ML LIQUID PO (10:19)
[2024-12-14] MEDS: FUROSEMIDE 40 MG/4 ML VIAL IVP (10:20)
[2024-12-14] MEDS: POTASSIUM CHLORIDE 10 MEQ ER TABLET 20 MEQ PO (10:20)
[2024-12-14] MEDS: JUVEN PACKET 1 PACKET PO (10:20)
[2024-12-14] MEDS: PANTOPRAZOLE SODIUM 40 MG VIAL IV (10:20)
[2024-12-14] MEDS: PROSTAT 15 GM PROTEIN/100 CAL 30 ML LIQUID PACKET PO (10:20)
[2024-12-14] MEDS: SITAGLIPTIN PHOSPHATE 50 MG TABLET 100 MG PO (10:21)
[2024-12-14] MEDS: FERROUS SULFATE 325 MG TABLET PO (10:21)
[2024-12-14] MEDS: SACUBITRIL/VALSARTAN 24 MG-26 MG TABLET 1 TAB PO (10:23)
[2024-12-14] MEDS: CANAGLIFLOZIN 100 MG TABLET PO (10:24)
[2024-12-14] MEDS: DOXYCYCLINE MONOHYDRATE 100 MG CAPSULE PO (10:24)
[2024-12-14] MEDS: SPIRONOLACTONE 25 MG TABLET 50 MG PO (10:24)
[2024-12-14] MEDS: ASPIRIN 81 MG TAB.CHEW PO (10:24)
[2024-12-14] MEDS: CITALOPRAM HYDROBROMIDE 20 MG TABLET 40 MG PO (10:24)
[2024-12-14] MEDS: NYSTATIN 15 GM POWDER 1 APPLIC TOPICAL (10:26)
[2024-12-14] MEDS: LACTULOSE 10 GM/15 ML BOTTLE 237 ML 20 GM PO (10:26)
[2024-12-14] MEDS: OLANZapine 5 MG TABLET 2.5 MG PO (10:37)
--- NOTE | 2024-12-14 10:47 | SWNOTE1 ---
2nd notice of important message from Medicare reviewed with pt, no questions at this time.
[2024-12-14 11:00] VITALS: BP 95/64; PULSE 102; TEMP 36.6; O2SAT 95
[2024-12-14 11:03] VITALS: O2SAT 95
--- NOTE | 2024-12-14 11:14 | SWNOTE1 ---
WAGNER sent updated physician notes, PT notes, labs, vitals, and nursing notes to [facility].
--- NOTE | 2024-12-14 11:30 | SWNOTE1 ---
SW called pt's insurance and the precert is still pending at this time.
--- NOTE | 2024-12-14 15:04 | SWNOTE1 ---
WAGNER received email and phone call from [employer] and pt is approved. WAGNER sent Dr. Muñoz message, waiting to hear back.
--- NOTE | 2024-12-14 16:00 | SWNOTE1 ---
Pt is stable for discharge to [facility] today. [facility] called [facility], but they do not have availability. SW spoke to patient in room. OT was in room as well. SW advised he is approved to go to [facility]. SW let him know that [facility] does not have availability. SW did ask pt if his was able to transport. He advised SW that his is babysitting and likely can't. SW asked if he was alright with SW setting up ambulance transport, WAGNER advised there is a chance he may get a bill. He voiced that is fine. WAGNER asked if SW should call his ? He stated SW should call her. SW to call . SW called Annika, pt's . SW let her know about transport. She stated pt is of sound mind and can make those decisions. SW to set up [facility] transport. [facility] called [facility] and set it up for 6:00pm. WAGNER faxed dc med rec to [facility] and let them know time. WAGNER also let nurse know time. WAGNER took packet to floor. Pt is going to [facility].
--- NOTE | 2024-12-14 18:33 | P.DS_ITS ---
DS: Providers Provider Date of admission: 12/10/24 16:36 Primary care physician: Desmond Muñoz MD Consults: 12/10/24 17:37 Consult to Pharmacy Routine Consulting Provider: Reason for consultation: Please [place] me when Med Rec is Updated Has provider been notified: No Consult to Principal Statistical Scientist Routine Reason for consult:: [place] Consult to Wound Care Routine Consulting Provider: [place] Reason for consultation: sacral wounds Has provider been notified: No Occupational Therapy Eval and Treat Routine Reason for consultation: Only if needed for Rehab Has provider been notified: No Physical Therapy Eval and Treat Routine Reason for consultation: Eval and Treat Has provider been notified: No DS: Diagnosis Discharge Diagnosis (1) Generalized weakness: (2) Sepsis: (3) Abdominal pain: (4) Severe protein-calorie malnutrition: (5) Hyperbilirubinemia: (6) Lactic acidosis: (7) Acute kidney injury superimposed on stage 1 chronic kidney disease: (8) Dehydration: Plan Admission findings: Hypotension, respiratory distress, normal white blood cell count but with left shift consistent with a bacterial process, acute kidney injury (baseline creatinine of 1.02 obtained 1 month ago, now at 1.68 which is 164.7% above baseline with decreased urine output in the last 6 hours would be acute kidney injury stage I), hyponatremia, lactic acidosis, elevated liver function test with lipase results pending. All added together would result in sepsis with uncertain etiology Sepsis with abdominal tenderness secondary to acute pancreatitis-lipase improved today, check ultrasound of abdomen with abdominal tenderness persisting, if unable to get good windows may need CT scan Hyperammonemia-slightly elevated today, maintain current dosing, missed a dose yesterday Acute kidney injury stage I as outlined above-up again today, good diuresis yesterday, will try just IV Lasix today twice daily Fluid overload with acute combined congestive heart failure complicated by chronic combined congestive heart failure--over 7 L diuresed yesterday, IV Lasix today Acute blood loss anemia with positive Hemoccult, on Protonix-hemoglobin down slightly today Thrombocytopenia-monitor daily-results normal Iron deficiency anemia-see above Coagulopathy secondary to liver cirrhosis-monitor Hyponatremia-resolved normal History of hypertension-BP keeping stable, restart Entresto to improve edema Elevated liver function test secondary to his liver cirrhosis-elevated somewhat today, still with plan for outpatient MRI information sent to office Severe protein calorie malnutrition-start patient on Ensure Plus, Pro-Stat and Marco Antonio NIDDM-hypoglycemia appears to be resolved, now sugars creeping up, add back Invokana Hypothyroidism with low T3-increased dose Depression with anxiety-continue to adjust medications Admission status: With sepsis secondary to acute pancreatitis and acute abdomen, medically necessary treatment spanning 2 midnights. Inpatient status DS: Summary Hospital Course Hospital Course: Patient with Admission findings: Hypotension, respiratory distress, normal white blood cell count but with left shift consistent with a bacterial process, acute kidney injury (baseline creatinine of 1.02 obtained 1 month ago, now at 1.68 which is 164.7% above baseline with decreased urine output in the last 6 hours would be acute kidney injury stage I), hyponatremia, lactic acidosis, elevated liver function test with lipase results pending. All added together would result in sepsis with uncertain etiology. Patient treated with antibiotics, numbers are slowly improved, still with significant weakness, still with significant edema, medications will continue to be adjusted as an outpatient but he is medically stable for discharge to rehab. I will follow patient at rehab, again medications see list Time Spent with Patient Time attestation: Total time spent providing and/or coordinating discharge services: Exam Constitutional Vital Signs, click to edit/add: Last Vital Signs Temp 97.8 F 12/14/24 11:00 Pulse 102 H 12/14/24 11:00 Resp 18 12/14/24 11:00 BP 95/64 12/14/24 11:00 Pulse Ox 95 12/14/24 11:03 O2 Del Method Room Air 12/14/24 11:03 Documenting provider has reviewed patient's vital signs: yes Common normals: no apparent distress Respiratory Common normals: normal respiratory effort and no retractions Cardio Common normals: regular rate and regular rhythm GI Common normals: soft to palpation; negative for Normal to inspection, nondistended, normoactive bowel sounds present (Obese) and tender (Tender again today) Extremity Common normals: abnormal to inspection and clubbing, cyanosis or edema Discharge Plan Discharge Disposition: Xfer SNF Discharge Medications: New quetiapine 25 mg Tablet 50 mg PO HS Qty: 60 11RF citalopram 20 mg Tablet 40 mg PO DAILY Qty: 60 11RF nystatin [Nystop] 100,000 unit/gram Powder 1 applic topical BID Qty: 60 11RF Ensure Active Protein-Muscle Liquid 1 ea PO BID Qty: 5688 0RF Januvia 50 mg Tablet 100 mg PO QD Qty: 60 11RF Invokana 100 mg Tablet 100 mg PO QD Qty: 30 11RF Entresto 24-26 mg Tablet 2 tab PO BID Qty: 120 7RF Continued amlodipine 2.5 mg tablet 2.5 mg PO DAILY olanzapine 2.5 mg tablet 2.5 mg PO DAILY aspirin 81 mg capsule 81 mg PO DAILY ferrous sulfate [iron] 325 mg (65 mg iron) tablet 325 mg PO BID cyanocobalamin (vitamin B-12) [Vitamin B-12] 2,000 mcg tablet extended release 2,000 mcg PO DAILY lactulose 10 gram/15 mL Solution 10 g PO TID Qty: 3785 11RF carvedilol 6.25 mg tablet 6.25 mg PO Q12H furosemide 20 mg tablet 40 mg PO DAILY potassium chloride [Klor-Con M20] 20 mEq tablet,ER particles/crystals 20 meq PO DAILY ezetimibe 10 mg tablet 10 mg PO DAILY liothyronine 5 mcg tablet 5 mcg PO .ACB Entresto 24-26 mg tablet 1 tab PO BID Invokana 100 mg tablet 100 mg PO .QD levothyroxine 50 mcg tablet 50 mcg PO .ACB spironolactone 50 mg tablet 50 mg PO BID Discontinued glimepiride 4 mg tablet 4 mg PO DAILY quetiapine 25 mg Tablet 25 mg PO HS Qty: 30 11RF citalopram 20 mg Tablet 40 mg PO DAILY Print Language: Surinamese Bpm Architect/Digital Printer Operator Instructions: Discharge to [facility] skilled Forms: Portal Instructions Discharge Date/Time: 12/14/24 18:30
== END 2024-12-14 18:30 | DRG 871 ==
LOC: ER 17:01 → MS 17:05
PROVIDERS: Nurse Practitioner; Admitting Provider Family Medicine; Emergency Provider Emergency Medicine; PCP Family Medicine; Visit Provider Family Medicine
DX: A41.9 Sepsis, unspecified organism (principal); E43 Unspecified severe protein-calorie malnutrition; K85.90 Acute pancreatitis without necrosis or infection, unspecified; I50.43 Acute on chronic combined systolic (congestive) and diastolic (congestive) heart failure; N17.9 Acute kidney failure, unspecified; E87.1 Hypo-osmolality and hyponatremia; I13.0 Hypertensive heart and chronic kidney disease with heart failure and stage 1 through stage 4 chronic kidney disease, or unspecified chronic kidney disease; Z68.44 Body mass index [BMI] 60.0-69.9, adult; L97.429 Non-pressure chronic ulcer of left heel and midfoot with unspecified severity; D62 Acute posthemorrhagic anemia; D68.8 Other specified coagulation defects; E72.20 Disorder of urea cycle metabolism, unspecified; E11.649 Type 2 diabetes mellitus with hypoglycemia without coma; E86.0 Dehydration; D69.6 Thrombocytopenia, unspecified; L89.152 Pressure ulcer of sacral region, stage 2; F41.8 Other specified anxiety disorders; E03.9 Hypothyroidism, unspecified; E11.22 Type 2 diabetes mellitus with diabetic chronic kidney disease; N18.1 Chronic kidney disease, stage 1; K74.60 Unspecified cirrhosis of liver; Z96.642 Presence of left artificial hip joint; Z87.891 Personal history of nicotine dependence; Z79.899 Other long term (current) drug therapy; Z79.84 Long term (current) use of oral hypoglycemic drugs; Z79.890 Hormone replacement therapy; Z79.82 Long term (current) use of aspirin
CPT/HCPCS: 36415; 36569; 36592; 71045; 74177; 76705; 80053; 81001; 82140; 82948; 83605; 83690; 83735; 83880; 84436; 84443; 84481; 84484; 84550; 85007; 85025; 85027; 85610; 85652; 85730; 86140; 87040; 93005; 94667; 94668; 94761; 96361; 96365; 96367; 97110; 97161; 97165; 97530; 97535; 99285; C1887; G0328; J0696; J1100; J1610; J1938; J2543; J3370; Q9963; Q9966

== ENCOUNTER 2025-01-05 11:32 | Outpatient (REF) | payer MEDICARE, SELFPAY ==
[2025-01-05 12:12] LABS: Alanine Aminotransferase 51 U/L (16-63); Albumin Globulin Ratio 0.3; Albumin Level 1.5 g/dL (3.4-5.0); Alkaline Phosphatase 290 U/L (46-116); Aspartate Amino Transferase 64 U/L (15-37); BUN Creatinine Ratio 24.2; Calcium 8.6 mg/dL (8.5-10.1); Carbon Dioxide 26.9 mmol/L (21.0-32.0); Chloride 104 mmol/L (98-107); Estimated GFR (African America >60 (>=60 mL/min/1.73m^2); Estimated GFR (Non-African Ame 56 (>=60 mL/min/1.73m^2); Free T3 1.45 pg/mL (2.18-3.98); Globulin 4.5 g/dL; Glucose 139 mg/dL (74-106); Potassium 4.9 mmol/L (3.5-5.1); Sodium 139 mmol/L (136-145); Thyroid Stimulating Hormone 1.163 uIU/mL (0.358-3.740)
[2025-01-05 12:15] LABS: Hemoglobin 11.2 g/dL (14.0-18.0); Mean Corpuscular HGB Conc 32.9 g/dL (29.9-35.2); Mean Corpuscular Hemoglobin 34.5 pg (25.9-34.0); Mean Corpuscular Volume 104.6 fL (80.0-94.0); Mean Platelet Volume 10.6 fL (9.5-13.5); Platelet Count 166 10^3/uL (150-450); Red Blood Count 3.25 10^6/uL (4.70-6.10); Red Cell Distribution Width 15.1 % (11.0-15.0)
[2025-01-05 13:00] LABS: Eosinophils Absolute Manual 0.05 10^3/uL (0.00-0.70); Lymphocytes Absolute Manual 0.35 10^3/uL (1.20-3.80); Monocytes Absolute Manual 0.45 10^3/uL (0.30-0.80); Segmented Neut Absolute Manual 4.15 10^3/uL (1.4-6.5)
== END 2025-01-05 11:33 | disposition home or self-care (01) ==
LOC: LAB 11:32
PROVIDERS: PCP Family Medicine; Visit Provider Family Medicine
DX: G89.29 Other chronic pain (principal); E11.21 Type 2 diabetes mellitus with diabetic nephropathy; K74.60 Unspecified cirrhosis of liver; I50.30 Unspecified diastolic (congestive) heart failure; I11.0 Hypertensive heart disease with heart failure
CPT/HCPCS: 36415; 80053; 83880; 84436; 84443; 84481; 85007; 85027

== ENCOUNTER 2025-01-06 22:12 | Observation (INO) | payer MEDICARE, SELFPAY ==
--- OUTSIDE RECORDS SUMMARY | 2024-12-29 09:45 | XMS_ITS | Encounter Summary ---
Author Organization [facility] tem Address [id number] [address] [place] [address] Care Team Providers Care Glass Pulverizer Equipment Operator Name Role Phone Desmond Muñoz MD Primary Care Provider +- Reason for Visit * Reason Comments Cholelithiasis Cholelithiasis, refe rred by Dr. Muñoz Encounter Details Date Type Department Care Team (Late st Contact Info) Description 2024 9:45 AM EDT Office Visit [facility] [address] [address] Tiara Lomax MD [address] [place] [address] Abnormal findings on diagnostic imaging of gallbladder (Primary Dx) Social History Tobacco Use Types Packs/Day Years Used Date Smoking Tobacco: Former Cigarettes Smokeless Tobacco: Never Tobacco Cessation:Counseling Given: Not Answered Alcohol Use Standard Drinks/Week Comments Not Currently 0 (1 standard drink = 0.6 oz pur e alcohol) Childcare Answer Date Recorded Childcare Unknown 01/07/2019 Employment Answer Date Recorded Employment Unknown 01/07/2019 Hunger Screening Answer Date Recorded Within the past 12 months we worried whether our food would run out before we got money to buy more. Never True 2024 Within the past 12 months th e food we bought just didn't last and we didn't have money to get more. Never True 2024 Sex and Gender Information Value Date Recorded Sex Assigned at Not on file Legal Sex Male 7:16 PM EDT Gender Identity Not on file Sexual Orientation Not on file documented as of this encounter Last Filed Vital Signs Vital Sign Reading Time Taken Comments Blood Pressure 114/82 2024 9:50 AM EDT Pulse - - Temperature - - Respiratory Rate - - Oxygen Saturation - - Inhaled Oxygen Concentration - - Weight 140.2 kg (309 lb) 2024 9:50 AM EDT Height 177.8 cm (5' 10 ) 2024 9:50 AM EDT Body Mass Index 44.34 2024 9:50 AM EDT documented in this encounter Progress Notes * Tiara Lomax MD - 2024 9:45 AM EDT Images from the original note were not included. Chief Complaint: He needs his gallbladder out History of Present Illness: Gerson Russell is a 69 y.o. male who presents office due to his doctor telling him he needs his gallbladder out. They told him that it is affecting his liver and pancreas. He was recently admitted to the hospital, he was [facility] his [facility]. This morning and this was associated with nausea. He states that he was having right upper quadrantpain. He was visibly jaundice. He is in a wheelchair. He was here with his spouse. He was just started seeing a GI specialist, Dr. Rodgers, once again. He was not following up with anyone since 2012. Medical history includes liver cirrhosis secondary to VELOZ, morbid obesity, BMI 44, portal hypertension, obstructive sleep apnea, type 2 diabetes mellitus, hypertension, hyperlipidemia. Per chart, patient had refractory ascites and bleeding esophageal varices status post tips on 12/01/2012. , congestive heart failure, diastolic. HPI Review of Systems Constitutional: Negative for fever and chills. Respiratory: Negative for shortness of breath. Cardiovascular: Positive for leg swelling. Negative for chest pain and palpitations. Gastrointestinal: Positive for nausea and abdominal pain. Negative for vomiting. Genitourinary: Negative for dysuria and difficulty urinating. Skin: Positive for color change. Negative for rash and wound. Allergic/Immunologic: Negative for immunocompromised state. Neurological: Negative for weakness and light-headedness. Hematological: Bruises/bleeds easily. Psychiatric/Behavioral: Negative for behavioral problems and confusion. History reviewed. No pertinent past medical history. History reviewed. No pertinent surgical history. No Known Allergies Current Outpatient Medications: aspirin 81 mg chewable tablet, Chew 1 tablet (81 mg total) and swallow in the morning., Disp: , Rfl: carvediloL (COREG) 6.25 mg tablet, Take 1 tablet (6.25 mg total) by mouth in the morning and 1 tablet (6.25 mg total) in the evening. Take with meals., Disp: , Rfl: cyanocobalamin (vitamin B-12) 1000 MCG tablet, Take 1 tablet (1,000 mcg total) by mouth in the morning., Disp: , Rfl: ENTRESTO 24-26 mg tablet, Take 1 tablet by mouth in the morning and 1 tablet before bedtime., Disp:, Rfl: ferrous sulfate 325 (65 FE) MG tablet, Take 1 tablet (325 mg total) by mouth in the morning and 1 tablet (325 mg total) in the evening. Take with meals., Disp: , Rfl: levothyroxine (SYNTHROID, LEVOTHROID) 50 MCG tablet, Take 1 tablet (50 mcg total) by mouth in the morning., Disp: , Rfl: liothyronine (CYTOMEL) 5 MCG tablet, Take 1 tablet (5 mcg total) by mouth in the morning., Disp: , Rfl: nystatin (MYCOSTATIN) powder, Apply 1 Application topically in the morning and 1 Application beforebedtime. 100,000 unit/gram; amt: Small AMT- skin folds; topical., Disp: , Rfl: pantoprazole (PROTONIX) 40 mg EC tablet, Take 1 tablet (40 mg total) by mouth in the morning., Disp: , Rfl: potassium chloride (KLOR-CON M 20) 20 MEQ CR tablet, Take 1 tablet (20 mEq total) by mouth in the morning., Disp: , Rfl: spironolactone (ALDACTONE) 50 mg tablet, Take 1 tablet (50 mg total) by mouth in the morning and 1 tablet (50 mg total) in the evening. Take with meals., Disp: , Rfl: Social History Socioeconomic History Marital status: Spouse name: Not on file Number of children: Not on file Years of education: Not on file Highest education level: Not on file Occupational History Not on file Tobacco Use Smoking status: Former Types: Cigarettes Smokeless tobacco: Never Vaping Use Vaping status: Never Used Substance and Sexual Activity Alcohol use: Not Currently Drug use: Not Currently Sexual activity: Defer Other Topics Concern Not on file Social History Narrative Not on file Social Drivers of Health Financial Resource Strain: Not on file Food Insecurity: No Food Insecurity (2024) Hunger Screening Food Insecurity - Worry: Never True Food Insecurity - Inability: Never True Transportation Needs: Not on file Physical Activity: Not on file Stress: Not on file Social Connections: Not on file Interpersonal Safety: Unknown (09/19/2023) Received from [facility] Safety & Environment Fear of Current or Ex-Partner: Not on file Emotionally Abused: Not on file Physically Abused: Not on file Sexually Abused: Not on file Physically or Sexually Abused: Not on file Housing Instability: Not on file Family History Problem Relation Age of Onset Diabetes Mother Colon cancer Mother Heart disease Father Pneumonia Father Physical Exam Vitals reviewed. Constitutional: Appearance: Normal appearance. He is obese. HENT: Head: Normocephalic and atraumatic. Eyes: Pupils: Pupils are equal, round, and reactive to light. Cardiovascular: Rate and Rhythm: Normal rate. Pulmonary: Effort: Pulmonary effort is normal. Abdominal: General: There is no distension. Palpations: Abdomen is soft. Tenderness: There is no abdominal tenderness. Musculoskeletal: General: No swelling. Right lower leg: Edema present. Left lower leg: Edema present. Skin: General: Skin is warm and dry. Coloration: Skin is jaundiced. Neurological: Mental Status: He is alert and oriented to person, place, and time. Mental status is at baseline. Psychiatric: Mood and Affect: Mood normal. Behavior: Behavior normal. Vital Signs: Blood pressure 114/82, height 177.8 cm (5' 10 ), weight (!) 140.2 kg (309 lb). Respiratory Source: No data recorded Admission Weight: Weight: (!) 140.2 kg (309 lb) Labs: No results found for: WBC , HGB , HCT , MCV , PLT No results found for: GLU , CALCIUM , NA , K , CO2 , CL , BUN , CREATININE No results found for: AMYLASE No results found for: LIPASE No results found for: ALT , AST , GGT , ALKPHOS , LABBILI No results found for: INR , PROTIME From [facility] 12/14/2024 Ammonia 43, high WBC 4.7, hemoglobin 10.3, platelets a 138 Lipase 125, 214, upper limit is 77 < 3x upper limit Sodium 141, BUN 55, creatinine 1 point 6, total bilirubin 1.8, AST 132, ALT 104, alkaline phosphatase 244, albumin 1.2 Imaging: Ultrasound right upper quadrant at [facility] performed 12/11/2024 Liver has lobulated margins consistent with a hepatic cirrhosis. Similar to prior CT. Small amount of intra-abdominal ascites. Gallbladder within normal limits, without evidence of cholelithiasis. Pathology. In the left hepatic lobe measuring 1.1 x 0.8 x 1.5 cm. This is of uncertain etiology. Notably there are multiple hypoattenuating lesions in the liver on most recent CT (used for comparison) Ultrasound right upper quadrant performed on Limited exam Wall thickening of gallbladder. No evidence of cholelithiasis. No biliary ductal dilatation. Evidence of ascites. Common bile duct [address] abdomen and pelvis 12/10/2024 Impression cirrhotic liver morphology with innumerable hypodense ill-defined hepatic lesions, incompletely characterized and concerning for malignancy. Findings should be evaluated with dedicated MRI. Abdominal pelvic ascites. Contracted gallbladder without cholelithiasis with pericholecystic fluidversus ascites. Assessment: Gerson Russell is a 69 y.o.male with right upper quadrant pain in the setting of liver cirrhosis. No cholelithiasis on imaging. There was gallbladder wall thickening on images. This is likely secondary to cirrhosis or heart failure. He was noted to have hepatic lesions on imaging. Given history of liver cirrhosis this is concerning for HCC. No primary diagnosis found. Plan: Currently, no indication for cholecystectomy. Given liver cirrhosis, surgery would be high-risk. I discussed finding of hepatic lesions on imaging. I recommended MRI of the liver as well as labs including AFP. Him and his spouse do not want to proceed with any further workup. They want any workup related to his liver to be done by his GI specialist. I did give the patient and his spouse a copyof recent CT abdomen as well as ultrasound. I asked them to talk to his GI specialist about this assoon as possible so that this is not missed. He will follow-up with our office as needed Evaluation included: Preparing to see the patient (e.g., review of tests) Obtaining and/or reviewing separately obtained history Performing a medically appropriate examination and/or evaluation Counseling and educating the patient/family/caregiver Referring and communicating with other health healthcare market consultant Tiara Lomax MD [facility] [place] documented in this encounter Plan of Treatment Not on file documented as of this encounter Visit Diagnoses Diagnosis Abnormal findings on diagnostic imaging of gallbladder- Primary documented in this encounter Care Teams Glass Pulverizer Equipment Operator Relationship Specialty Start Date End Date Desmond Muñoz MD [address] [place] [address] PCP - General Family Medicine 12/22/24 documented as of this encounter
[2025-01-06] VITALS (11 sets, daily range): BP systolic 112; BP diastolic 57; PULSE 71–81; TEMP 36.6; O2SAT 99–100; BMI 43.0
--- OUTSIDE RECORDS SUMMARY | 2025-01-06 20:00 | XMS_ITS | Clinical Summary ---
Author Organization Unknown Care Team Providers Care Graffiti Cleaner Name Role Phone RASHAAD PEGGY Unavailable Unavailable SARAH FOOTE, KENDELL Unavailable Unavailable Payers Payer Name Policy Type Policy Number Effective Date Expira tion Date [facility] DUAL COMPLETE [id number] Problems Condition Name Condition Details Condition Category Status Onset Date Resolution Date Last Treatment Date Treating Clinician Comments URINARY TRACT INFECTION, SITE NOT SPECIFIED Active 10-22 00:00: 00 UNSPECIFIED CIRRHOSIS OF LIVER Active 10-22 00:00: 00 NONALCOHOLIC STEATOHEPATI TIS (VELOZ) Active 10-22 00:00: 00 ACUTE KIDNEY FAILURE, UNSPECIFIED Active 10-22 00:00: 00 UNSP FX LOWER END OF L HUMERUS, SUBS FOR FX W ROUTN HEAL Active 09-08 00:00: 00 HYPERTENSIVE CHRONIC KIDNEY DISEASE W STG 1-4/UNSP CHR KDNY Active 10-22 00:00: 00 TYPE 2 DIABETES MELLITUS W DIABETIC CHRONIC KIDNEY DISEASE Active 10-22 00:00: 00 CHRONIC KIDNEY DISEASE, STAGE 1 Active 10-22 00:00: 00 ACUTE PANCREATITIS WITHOUT NECROSIS OR INFECTION, UNSP Active 10-22 00:00: 00 UNSPECIFIED SEVERE PROTEIN-CHERELLE VADIM MALNUTRITION Active 10-22 00:00: 00 IRON DEFICIENCY ANEMIA, UNSPECIFIED Active 10-22 00:00: 00 MAJOR DEPRESSIVE DISORDER, SINGLE EPISODE, MILD Active 10-22 00:00: 00 DYSPHAGIA, OROPHARYNGEA L PHASE Active 10-22 00:00: 00 COGNITIVE COMMUNICATIO N DEFICIT Active 10-22 00:00: 00 OBSTRUCTIVE SLEEP APNEA (ADULT) (PEDIATRIC) Active 10-22 00:00: 00 MORBID (SEVERE) OBESITY DUE TO EXCESS CALORIES Active 10-22 00:00: 00 BODY MASS INDEX [BMI] 45.0-49.9, ADULT Active 10-22 00:00: 00 ECONOMIC CONSULTANT (CURRENT) USE OF INSULIN Active 09-21 00:00: 00 Allergies, Adverse Reactions, Alerts Allergy Name Allergy Type Status Severity Reaction(s) Onset Date Inactive Date Treating Clinician Comments NKA Propensity to adverse reactions Active 2024-10 14:31:3 1 Medications Ordered Medication Name Filled Medication Name Start Date Stop Date Current Medication? Ordering Clinician Indication Dosage Frequency Signature (SIG) Comments Components amlodipine 2.5 mg tablet 10-24 00:00: 00 11-09 00:00 :00 No [id number] Per instruc tions Per instructio ns (route: oral) Med Classific ation: Cardiovas cular Therapy Agents citalopram 10 mg tablet 10-24 00:00: 00 Yes [id number] DEPRESSION 1 tablet DAILY 1 tablet DAILY (route: oral) Med Classific ation: Central Nervous System Agents carvedilol 6.25 mg tablet 10-19 00:00: 00 Yes [id number] HTN 1 tablet DAILY 1 tablet DAILY (route: oral) Med Classific ation: Cardiovas cular Therapy Agents furosemide 20 mg tablet 10-02 00:00: 00 Yes [id number] EDEMA 1 tablet DAILY 1 tablet DAILY (route: oral) Med Classific ation: Cardiovas cular Therapy Agents glimepiride 4 mg tablet 2 00:00: 00 11-09 00:00 :00 No [id number] Per instruc tions Per instructio ns (route: oral) Med Classific ation: Endocrine Klor-Con M20 mEq tablet,exte nded release 2-09 00:00: 00 Yes [id number] SUPPLEMENT 1 tablet DAILY 1 tablet DAILY (route: oral) Med Classific ation: Electroly te Balance-N utritiona l Products ezetimibe 10 mg tablet -16 00:00: 00 Yes [id number] CHOLESTEROL 1 tablet DAILY 1 tablet DAILY (route: oral) Med Classific ation: Cardiovas cular Therapy Agents spironolact one 25 mg tablet -16 00:00: 00 11-09 00:00 :00 No [id number] Per instruc tions Per instructio ns (route: oral) Med Classific ation: Cardiovas cular Therapy Agents spironolact one 50 mg tablet - 00:00: 00 Yes [id number] HTN 1 tablet 4 TIMES DAILY 1 tablet 4 TIMES DAILY (route: oral) Med Classific ation: Cardiovas cular Therapy Agents acetaminoph en 500 mg capsule 11-05 00:00: 00 Yes [id number] PAIN 2 capsule 3 TIMES DAILY 2 capsule 3 TIMES DAILY (route: oral) Med Classific ation: Analgesic , Anti-infl ammatory or Antipyret ic Humalog KwikPen (U-100) Insulin 100 unit/mL subcutaneou s 11-05 00:00: 00 Yes [id number] DM Per instruc tions 3 TIMES DAILY Per instructio ns 3 TIMES DAILY (route: subcutaneo us) Med Classific ation: Endocrine multivitami n tablet 11-05 00:00: 00 Yes [id number] SUPPLEMENT 1 tablet DAILY 1 tablet DAILY (route: oral) Med Classific ation: Electroly te Balance-N utritiona l Products Xifaxan 550 mg tablet 11-10 00:00: 00 Yes [id number] VELOZ 1 tablet 2 TIMES DAILY 1 tablet 2 TIMES DAILY (route: oral) Med Classific ation: Anti-Infe ctive Agents Vital Signs Vital Name Observation Time Observation Value Commen ts Temperature 2024-11-09 15:03:00.000 96.9 [degF] BMI (%) 2024-11-09 15:00:19.000 43 kg/m2 Height 2024-11-09 15:00:13.000 70 [in_us] Pulse 2024-11-09 15:03:00.000 85 /min Respirations 2024-11-09 15:03:00.000 16 /min Weight (lbs) 2024-11-09 15:00:19.000 300 [lb_av] Systolic Blood Pressure 2024-11-09 15:03:00.000 135 mm [Hg] Diastolic Blood Pressure 2024-11-09 15:03:00.000 85 mm [Hg] Plan of Treatment Planned Activity Planned Date Details Comments Future Scheduled Test SKILLED NU RSE TO EVALUATE AND DEVELOP PLAN OF CARE TO BE COUNTERSIGNED BY PHYSICIAN. SKILLED NURSE TO ASSESS/EVALUATE CO-MORBID CONDITIONS INCLUDING KIDNEY DISEASE, DM, GENERALIZED WEAKNESS AND OTHER CONDITIONS THAT PRESENT THEMSELVES DURING THE COURSE OF THIS EPISODE TO IDENTIFY CHANGES AND INTERVENE TO MINIMIZE COMPLICATIONS. [code = SKILLED NURSE TO EVALUATE AND DEVELOP PLAN OF CARE TO BE COUNTERSIGNED BY PHYSICIAN. SKILLED NURSE TO ASSESS/EVALUATE CO-MORBID CONDITIONS INCLUDING KIDNEY DISEASE, DM, GENERALIZED WEAKNESS AND OTHER CONDITIONS THAT PRESENT THEMSELVES DURING THE COURSE OF THIS EPISODE TO IDENTIFY CHANGES AND INTERVENE TO MINIMIZE COMPLICATIONS.] Future Scheduled Test SKILLED NU RSE TO PERFORM MULTIFACTOR FALL RISK ASSESSMENT AND IMPLEMENT INTERVENTIONS TO DECREASE RISK OF FALLS. SKILLED NURSE TO INSTRUCT ON HOME SAFETY, IMPACT OF POLYPHARMACY, ENVIRONMENTAL SAFETY, AND FALL PREVENTION. [code = SKILLED NURSE TO PERFORM MULTIFACTOR FALL RISK ASSESSMENT AND IMPLEMENT INTERVENTIONS TO DECREASE RISK OF FALLS. SKILLED NURSE TO INSTRUCT ON HOME SAFETY, IMPACT OF POLYPHARMACY, ENVIRONMENTAL SAFETY, AND FALL PREVENTION.] Future Scheduled Test SKILLED NU RSE FOR OBSERVATION / ASSESSMENT OF PAIN, EFFECTIVENESS OF PAIN MANAGEMENT REGIMEN AND SKILLED TEACHING RELATED TO PAIN MANAGEMENT. SKILLED NURSE TO INTERVENE WITH INCREASED PAIN LEVEL TO MINIMIZE COMPLICATIONS. [code = SKILLED NURSE FOR OBSERVATION / ASSESSMENT OF PAIN, EFFECTIVENESS OF PAIN MANAGEMENT REGIMEN AND SKILLED TEACHING RELATED TO PAIN MANAGEMENT. SKILLED NURSE TO INTERVENE WITH INCREASED PAIN LEVEL TO MINIMIZE COMPLICATIONS.] Future Scheduled Test SKILLED NU RSE FOR INSTRUCTIONS / REINFORCEMENT OF DIABETIC CARE TO INCLUDE DIET, SKIN CARE, ADMINISTRATION OF INSULIN, BLOOD GLUCOSE TESTING AND DIABETIC FOOT CARE. [code = SKILLED NURSE FOR INSTRUCTIONS / REINFORCEMENT OF DIABETIC CARE TO INCLUDE DIET, SKIN CARE, ADMINISTRATION OF INSULIN, BLOOD GLUCOSE TESTING AND DIABETIC FOOT CARE.] Future Scheduled Test PHYSICAL T HERAPIST TO EVALUATE TO DETERMINE CONDITION, PHYSICAL THERAPY PLANS AND REHABILITATION POTENTIAL; EVALUATE HOME ENVIRONMENT TO ELIMINATE STRUCTURAL BARRIERS AND IMPROVE SAFETY TO INCREASE FUNCTIONAL INDEPENDENCE (RAMPS, ADAPTIVE WHEELCHAIR, BATHROOM AIDES) AND DEVELOP PHYSICAL THERAPY PLAN OF CARE TO BE SIGNED BY THE PHYSICIAN. THERAPIST MAY PERFORM O2 SATURATION LEVELS AT EVALUATION VISIT AND PRN FOR SIGNS AND/OR SYMPTOMS OF POSSIBLE RESPIRATORY COMPLICATIONS OR WITH O2 USE. [code = PHYSICAL THERAPIST TO EVALUATE TO DETERMINE CONDITION, PHYSICAL THERAPY PLANS AND REHABILITATION POTENTIAL; EVALUATE HOME ENVIRONMENT TO ELIMINATE STRUCTURAL BARRIERS AND IMPROVE SAFETY TO INCREASE FUNCTIONAL INDEPENDENCE (RAMPS, ADAPTIVE WHEELCHAIR, BATHROOM AIDES) AND DEVELOP PHYSICAL THERAPY PLAN OF CARE TO BE SIGNED BY THE PHYSICIAN. THERAPIST MAY PERFORM O2 SATURATION LEVELS AT EVALUATION VISIT AND PRN FOR SIGNS AND/OR SYMPTOMS OF POSSIBLE RESPIRATORY COMPLICATIONS OR WITH O2 USE.] Future Scheduled Test OCCUPATION AL THERAPY PROHEALTH FREQUENCY 1W1 2W2 1W3 INTERVENTIONS EVAL AND TREAT ESTABLISH HOME EXERCISE PROGRAM AND ACTIVITY PROGRAM HOME SAFETY EVALUATION AND FALL PREVENTION/TEACH HOME SAFETY STRATEGIES ADL'S/IADL'S TRAINING ACTIVITY TOLERANCE TRAINING FUNCTIONAL TRANSFERS AND MOBILITY [code = OCCUPATIONAL THERAPY PROHEALTH FREQUENCY 1W1 2W2 1W3 INTERVENTIONS EVAL AND TREAT ESTABLISH HOME EXERCISE PROGRAM AND ACTIVITY PROGRAM HOME SAFETY EVALUATION AND FALL PREVENTION/TEACH HOME SAFETY STRATEGIES ADL'S/IADL'S TRAINING ACTIVITY TOLERANCE TRAINING FUNCTIONAL TRANSFERS AND MOBILITY] Goal Patient Goal - GET STRONGER Goal Provider Goal - A PLAN OF CARE WILL BE ESTABLISHED THAT MEETS ALL PATIENT'S NURSING NEEDS AND COUNTERSIGNED BY PHYSICIAN. Goal Provider Goal - PATIENT WILL DEMONSTRATE/VERBALIZE KNOWLEDGE OF INTERVENTIONS TO PREVENT FALLS AND SAFETY HAZARDS. PATIENT WILL REMAIN SAFE WITHIN HOME ENVIRONMENT. Goal Provider Goal - INCREASED PAIN OR PAIN CONTROL MEASURES WILL BE INDENTIFIED AND PROMPTLY REPORTED TO THE PHYSICIAN. PATIENT / CAREGIVER WILL VERBALIZE UNDERSTANDING OF PHARMACOLOGIC AND NON-PHARMACOLOGIC PAIN CONTROL MEASURES. Goal Provider Goal - PATIENT / CAREGIVER WILL VERBALIZE / DEMONSTRATE ADEQUATE KNOWLEDGE OF ENDOCRINE STATUS. Goal Provider Goal - A PHYSICAL THERAPY EVALUATION WILL BE COMPLETED AND A PLAN OF CARE TO INCREASE FUNCTIONAL INDEPENDENCE WILL BE ESTABLISHED FOR THE PHYSICIAN'S REVIEW AND SIGNATURE. Goal Provider Goal - STG MET WITHIN 2 WEEKS: PATIENT TO BE RECEPTIVE TO HOME MODIFICATIONS, RECOMMENDATIONS, ADAPTIVE EQUIPMENT AND COMPENSATORY TECHNIQUES TO INCREASE INDEPENDENCE AND SAFETY WITH ADLS/ IADLS IN 2 WEEKS LTG MET WITHIN 5 WEEKS: PATIENT TO COMPLETE SELF BATHING WITH SBA AND SAFE BY DC PATIENT TO PARTICIPATE IN B UE HEP USING HANDOUT NEEDED TO INCREASE STRENGTH AND ENDURANCE FOR SELF CARE TASKS BY DC PATIENT TO COMPLETE STANDING BALANCE ACTIVITY DEMONSTRATING GOOD BALANCE FOR 15 MINUTES INCORPORATING ECWS TECHNIQUES NEEDED TO INCREASE STRENGHT AND ENDURANCE BY DC PATIENT TO COMPLETE SHOWER TRANSFERS MOD I AND SAFE BY DC REHAB POTENTIAL: GOOD DISCHARGE PLANS: CLIENT TO ACHIEVE OPTIMAL FUNCTION TREATMENT PROVIDED IN THIS VISIT:RECOMMENDED SCREW IN GRAB BAR PATIENT ON THE PHONE UPON ARRIVAL. TOOK INCREASE TIME TO COMPLETE . GETTING FRUSTRATED WITH PATIENT PATIENT KNEW THERAPIST WAS COMING. SIGNED BY ISSA NEAL OT 11/13/2024 Encounters Start Date/Time End Date/Time Encounter Type Admission Type Attending [facility] Care Department Encounter ID Discharge Date Discharge Status Discharge Condition Discharge Reason Percent Goals Met 2024-11-09 00:00:00 2025-01-07 00:00:00 Outpatient NEW ADMISSION [facility] [id number]
--- OUTSIDE RECORDS SUMMARY | 2025-01-06 22:21 | XMS_ITS | Encounter Summary ---
Author Organization [facility] tem Address [id number] [address] [place] [address] Care Team Providers Care Physician Practice Administrator Name Role Phone Desmond Muñoz MD Primary Care Provider [phone] Encounter Details Date Type Department Care Team (Late st Contact Info) Description 12/18/2024 Telephone [facility] [address] [place] [address] Tiara Lomax MD [address] [place] [address] Social History Tobacco Use Types Packs/Day Years Used Date Smoking Tobacco: Never Assessed Childcare Answer Date Recorded Childcare Unknown 01/07/2019 Employment Answer Date Recorded Employment Unknown 01/07/2019 Sex and Gender Information Value Date Recorded Sex Assigned at Not on file Legal Sex Male 7:16 PM EDT Gender Identity Not on file Sexual Orientation Not on file documented as of this encounter Miscellaneous Notes * Telephone Encounter - Joana Daly - 12/18/2024 10:13 AM EDT Spoke to patient's in regard to the gallbladder referral received from Dr. Muñoz. She stated Gerson was currently in a alf and she would call the office back to schedule once he's been released. documented in this encounter Plan of Treatment Not on file documented as of this encounter Visit Diagnoses Not on filedocumented in this encounter Care Teams Physician Practice Administrator Relationship Specialty Start Date End Date Desmond Muñoz MD [address] [facility], [place] [address] PCP - General Family Medicine 12/22/24 documented as of this encounter
--- OUTSIDE RECORDS SUMMARY | 2025-01-06 22:21 | XMS_ITS | Encounter Summary ---
Author Organization [facility] tem Address [id number] [address] [place] [address] Care Team Providers Care Cash Register Servicer Name Role Phone Desmond Muñoz MD Primary Care Provider [phone] Encounter Details Date Type Department Care Team (Latest Contact Info) Description 2024 Travel Social History Tobacco Use Types Packs/Day Years Used Date Smoking Tobacco: Former Cigarettes Smokeless Tobacco: Never Alcohol Use Standard Drinks/Week Comments Not Currently [...] on file documented as of this encounter Plan of Treatment Not on file documented as of this encounter Visit Diagnoses Not on filedocumented in this encounter Care Teams Cash Register Servicer Relationship Specialty Start Date End Date Desmond Muñoz MD [address] [facility] [place] [address] PCP - General Family Medicine 12/22/24 documented as of this encounter
--- OUTSIDE RECORDS SUMMARY | 2025-01-06 22:21 | XMS_ITS | Clinical Summary ---
Author Organization [facility] Address [address] [place] [address] Phone Care Team Providers Care Social Studies Department Chair Name Role Phone Unavailable Primary Care Provider Unavailabl e Social History Tobacco Use Types Packs/Day Years Used Date Smoking Tobacco: Never Assessed Sex and Gender Information Value Date Recorded Sex Assigned at Not on file Legal Sex Male 8:27 AM EST Gender Identity Not on file Sexual Orientation Not on file Plan of Treatment Not on file
--- OUTSIDE RECORDS SUMMARY | 2025-01-06 22:21 | XMS_ITS | Clinical Summary ---
Author Organization [facility] Address [id number] [address] [place] [address] Care Team Providers Care Cougar Hunter Name Role Phone Desmond Muñoz MD Primary Care Provider + Allergies No known active allergies Medications levothyroxine (SYNTHROID, LEVOTHROID) 50 MCG tablet Take 1 tablet (50 mcg total) by mouth in the morning. 5 Active liothyronine (CYTOMEL) 5 MCG tablet Take 1 tablet (5 mcg total) by mouth in the morning. 5 Active nystatin (MYCOSTATIN) powder Apply 1 Application topically in the morning and 1 Application before bedtime. 100,000 unit/gram; amt: Small AMT- skin folds; topical. Active potassium chloride (KLOR-CON M 20) 20 MEQ CR tablet Take 1 tablet (20 mEq total) by mouth in the morning. 5 Active pantoprazole (PROTONIX) 40 mg EC tablet Take 1 tablet (40 mg total) by mouth in the morning. Active cyanocobalamin (vitamin B-12) 1000 MCG tablet Take 1 tablet (1,000 mcg total) by mouth in the morning. Active aspirin 81 mg chewable tablet Chew 1 tablet (81 mg total) and swallow in the morning. Active ferrous sulfate 325 (65 FE) MG tablet Take 1 tablet (325 mg total) by mouth in the morning and 1 tablet (325 mg total) in the evening. Take with meals. 5 Active spironolactone (ALDACTONE) 50 mg tablet Take 1 tablet (50 mg total) by mouth in the morning and 1 tablet (50 mg total) in the evening. Take with meals. Active carvediloL (COREG) 6.25 mg tablet Take 1 tablet (6.25 mg total) by mouth in the morning and 1 tablet (6.25 mg total) in the evening. Take with meals. Active ENTRESTO 24-26 mg tablet Take 1 tablet by mouth in the morning and 1 tablet before bedtime. 5 Active Encounters Date Type Department Care Team Description 2024 9:45 AM EDT Office Visit [facility] [address] [place] [address] Tiara Lomax MD Abnormal findings on diagnostic imaging of gallbladder (Primary Dx) 2024 Travel 12/18/2024 Telephone [facility] [address] [place] [address] Tiara Lomax MD 12/14/2024 3:50 PM EDT Ancillary Procedure [facility] [address] [place] [phone] Pain 12/11/2024 7:40 AM EDT Ancillary Procedure [facility] [address] [place] [phone] Pain 12/10/2024 7:15 PM EDT Ancillary Procedure [facility] [address] [place] [phone] Pain 11/18/2024 5:15 PM EDT Ancillary Procedure [facility] [address] [place] [phone] Pain from Last 3 Months Family History Medical History Relation Name Comments Heart disease Father Pneumonia Father Colon cancer Mother Diabetes Mother Relation Name Status Comments Father Mother Social History Tobacco Use Types Packs/Day Years [...] on file Sexual Orientation Not on file Last Filed Vital Signs Vital Sign Reading Time Taken Comments Blood Pressure 114/82 2024 9:50 AM EDT Pulse - - Temperature - - Respiratory Rate - - Oxygen Saturation - - Inhaled Oxygen Concentration - - Weight 140.2 kg (309 lb) 2024 9:50 AM EDT Height 177.8 cm (5' 10 ) 2024 9:50 AM EDT Body Mass Index 44.34 2024 9:50 AM EDT Plan of Treatment Health Maintenance Due Date Last Done Comments Depression Screening 1967 Adult BMI Follow Up Plan 12/30/1975 DTaP,Tdap and Td Vaccines (1 - Tdap) 1976 Zoster (Shingles) Vaccine (1 of 2) 12/30/2007 Abdominal Aortic Aneurysm (A AA) Screen 2022 Fall Risk Screening 2022 COVID-19 Vaccine (2023-2 5 season) 2024 07/24/2021, 11/01/2020, 10/10/2020 Influenza Vaccine 03/29/2025 06/20/2020, , 05/14/2018 Adult BMI Screening 2025 2024 Tobacco Screening 2025 2024 Medical Devices Not on file Procedures Procedure Name Priority Date/Time Associated Diagnosis Comments US ABDOMEN LMTD Routine 12/14/2024 3:50 PM EDT Pain US ABDOMEN LMTD Routine 12/11/2024 7:[address] ABDOMEN AND PELVIS W CONT Routine 12/10/2024 7:[address] ABDOMEN AND PELVIS W CONT Routine 11/18/2024 5:15 PM EDT Pain from Last 3 Months Results * Ultrasound abdomen limited (12/14/2024 3:50 PM EDT) Only the most recent of2 resultswithin the time period is included. us Scanning Provider External IMG US ORDERABLES Fin al Result Performing Organization Address City/[facility] Co de Phone Number MANUALLY TRANSCRIBED RESULTS * CT abdomen and pelvis with contrast (12/10/2024 7:15 PM EDT) Only the most recent of2 resultswithin the time period is included. us Scanning Provider External IMG CT ORDERABLES Fin al Result Performing Organization Address [facility] Co de Phone Number MANUALLY TRANSCRIBED RESULTS from Last 3 Months Insurance [employer] Care Teams Cougar Hunter Relationship Specialty Start Date End Date Desmond Muñoz MD [address] [facility] [place] [address] PCP - General Family Medicine 12/22/24
--- OUTSIDE RECORDS SUMMARY | 2025-01-06 22:22 | XMS_ITS | CCD ---
Author Organization [facility] Care Team Providers Care Screedman Name Role Phone RASHAAD, DR WOODS Admitting Unavailable RASHAAD, DR WOODS Attending Unavailable RASHAAD, DR WOODS Primary Care Unavailable RINKUY, DR WOODS Admitting Unavailable RINKUY, DR WOODS Attending Unavailable RASHAAD, DR WOODS Primary Care Unavailable RASHAAD, DR WOODS Admitting Unavailable RASHAAD, DR WOODS Attending Unavailable RASHAAD, DR WOODS Primary Care Unavailable RASHAAD, DR WOODS Consulting Unavailable Truman FUNES Attending Unavailable Nat MURRAY Attending Unavailable Nat MURRAY Attending Unavailable Truman FUNES Attending Unavailable Nat MURRAY Attending Unavailable Tuan Lira Attending Unavailable Nat MURRAY Attending Unavailable Nat MURRAY Admitting Unavailable Peggy Muñoz MD Primary Care Provider [phone] Geoffrey Ibrahim DO Attending Provider [phone] Peggy Muñoz MD Primary Care Provider [phone] Geoffrey Ibrahim DO Attending Provider Leti Ren PA-C Attending Provider NON STAFF Primary Care Provider UnavailDerrek Morales MD Attending Provider Peggy Muñoz MD Attending Provider Asaad, Imad Admitting Unavailable Asaad, Imad Attending Unavailable Geoffrey Ibrahim Attending Unavailable Peggy Muñoz Primary Care Unavailable Geoffrey Ibrahim Admitting Unavailable Geoffrey Ibrahim Attending Unavailable Geoffrey Ibrahim Admitting Unavailable NON STAFF Primary Care Unavailable Asaad, Imad Admitting Unavailable Asaad, Imad Attending Unavailable Peggy Muñoz Primary Care Unavailable Geoffrey Ibrahim Attending Unavailable Peggy Muñoz Primary Care Unavailable Geoffrey Ibrahim Admitting Unavailable Geoffrey Ibrahim Attending Unavailable Peggy Muñoz Primary Care Unavailable Geoffrey Ibrahim Admitting Unavailable Leti Ren Admitting Unavailable Leti Ren Attending Unavailable Peggy Muñoz Admitting Unavailable Peggy Muñoz Attending Unavailable TAJ OTERO Referring Unavailable JEB SANON Referring Unavailable JEB SANON Referring Unavailable JEB SANON Referring Unavailable TAJ OTERO Referring Unavailable TAJ OTERO Attending Unavailable TAJ OTERO Admitting Unavailable TAJ OTERO Attending Unavailable MARY MELLO Attending Unavailable PEGGY MUÑOZ Primary Care Unavailable Medications Current Medications Medication Drug Class(es) [...] Start: 11-18-2024 take 1 tablet by rojas once daily Citalopram (Celexa) 10 mg tablet [...] Start: 06-09-2019 take 1 tablet by rojas four times daily Spironolactone 25 mg Tablet [...] Start: 07-24-2019 take 1 tablet by rojas once daily Cyanocobalamin (Vitamin B-12) (Vitamin B-12) [...] PO Q4H as needed for pain 30 7 September 22, 2024 1:00am November 05, 2024 10:14am [...] 2019 1:00am November 05, 2024 10:14am Problems Active Problems Problem Classification Problem Date Documented Da [...] liver without mention of alcohol] 11-05-2024 Episodic Residual codes; unclassified (15 sources) Other specified postprocedural states; Translations: [Other postprocedural status] 10-07-2024 Episodic Residual codes; unclassified (1 source) Pain, unspecified; Translations: [Pain, unspecified] Onset: 12-30-2024 Episodic Unclassified (1 source) Cholelithiasis Onset: 2024 Past or Other Problems Problem Classification Problem Date Documented Date Episodic/Chronic Other lower respiratory disease (2 sources) Shortness of breath; Translations: [Shortness of breath] Onset: 05-05-2024 Episodic Other screening for suspected conditions (not mental disorders or infectious disease) (4 sources) Abnormal findings on diagnostic imaging of heart and coronary circulation; Translations: [Abnormal result of other cardiovascular function study] Onset: 05-01-2024 Episodic Results Test Name Value Interpretation Reference Range Facility CT abdomen wo/w conon 2024 CT abdomen wo/w con [facility] [place] [address] CT Scan Report Signed Patient: Gerson Penn MR#: [id number] : 1955 Acct:[id number] Age/Sex: 68 / M ADM Date: 11/26/24 Loc: CT Room: Type: [facility] Attending Dr: Derrek Rodgers MD Copies [...] effusions. Impression dictated by: Gage Noland Jr., DestinyOBranden 11/26/2024 3:27 PM Dictation Location: [place] [address] Transcribed By: [facility] 11/26/24 1527 Dictated By: Gage Noland Jr, DO 11/26/24 1519 Signed By: 11/26/24 1527 [facility] Urine Cultureon 11-18-2024 Bacteria identified Cx Nom (U) ORGANISM: Enterobacter cloacae complex (O:ENTCLOCPLX) Irving Count >100,000 Aerobic LACHELLE Charge (NMIC56) SUSCEPTIBILITY [...] RESISTANT TO ALL B-LACTAM DRUGS. PERFORMED BY: [place] [address] PATHOLOGIST [employer] AS[employer]ER LEANDRA WALSH M.D. Normal [facility] Comment on above: Performed By: #### H EMOCHROM, HAAB, HCBIGM, HCV RX PCR, HAABT, HBSAB, HBCAB, HBSAG, CERULOP, MITOM2, AFPTM, ALPHA PHEN, IGG, DYLAN, SMAB, L-K MICRO #### [facility] , #### PT, CMP, KYLE, CBC #### [facility] [address] [place] [address] Urine cultureOrdered By: Wilfrido Muñoz on 11-18-2024 Bacteria identified Cx Nom (U) Abnormal [facility] AFP Tumor Marker, Serumon AFP Tumor Marker, Serum 9.3 ng/mL High 0.0-8.4 [facility] Comment on above: Result Comment: [employer] Electrochemiluminescence Immunoassay (ECLIA) Values obtained with different assay methods or kits cannot be used interchangeably. Results cannot be interpreted as absolute evidence of the presence or absence of malignant disease. This test is not interpretable in females. Performed at: [facility] [address] [id number] Welfare Eligibility Interviewer: Stewart Palmer PhD, Phone: [phone] Performed By: #### H EMOCHROM, HAAB, HCBIGM, HCV RX PCR, HAABT, HBSAB, HBCAB, HBSAG, CERULOP, MITOM2, AFPTM, ALPHA PHEN, IGG, DYLAN, SMAB, L-K MICRO ####[facility] ,#### PT, CMP, KYLE, CBC ####[facility] DYLAN Antinuclear Antibodieson 11-05-2024 Antinuclear Abs, IFA Negative Normal . [facility] Comment on above: Result Comment: Nega tive <1:80 Borderline 1:80 Positive >1:80 ICAP nomenclature: AC-0 For more information about Hep-2 cell patterns use ANApatterns.org, the official website for the International Consensus on Antinuclear Antibody (DYLAN) Patterns (ICAP). Performed at: - [place] [address] Welfare Eligibility Interviewer: Stewart Palmer PhD, Phone: [phone] Performed By: #### H EMOCHROM, HAAB, HCBIGM, HCV RX PCR, HAABT, HBSAB, HBCAB, HBSAG, CERULOP, MITOM2, AFPTM, ALPHA PHEN, IGG, DYLAN, SMAB, L-K MICRO ####[facility] ,#### PT, CMP, KYLE, CBC ####[place] [id number] [address] Actin smooth muscle IgG Ab [ Units/volume] in SerumOrdered By: Imad Asaad on 11-05-2024 Actin smooth muscle IgG Qn (S) Actin smooth muscle IgG Ab [Units/volume] in Serum 0-19 [facility] Comment on above: Negative 0 - 19 Weak positive 20 - 30 Moderate to strong positive >30 Actin Antibodies are found in 52-85% of patients with autoimmune hepatitis or chronic active hepatitis and in 22% of patients with primary biliary cirrhosis. Alanine aminotransferase [En zymatic activity/volume] in Serum or PlasmaOrdered By: Imad Asaad on 11-05-2024 ALT [Catalytic activity/Vol] Alanine aminotransferase [Enzymatic activity/volume] in Serum or Plasma High 7-52 [facility] Albumin [Mass/volume] in Ser um or Plasma by Bromocresol green (BCG) dye binding methoOrdered By: Immatthew Rodgers on 11-05-2024 Albumin BCG dye [Mass/Vol] Albumin [Mass/volume] in Serum or Plasma by Bromocresol green (BCG) dye binding metho Low 3.5-5.7 [facility] Alkaline phosphatase [Enzyma tic activity/volume] in Serum or PlasmaOrdered By: Imad Ana Maria on 11-05-2024 ALP [Catalytic activity/Vol] Alkaline phosphatase [Enzymatic activity/volume] in Serum or Plasma High 34-104 [facility] Lsejr-9-Paqpfbdmuix Phenotyp gonzales 11-05-2024 Alpha 1 Anti-Trypsin 104 mg/dL Normal 101-187 [facility] Comment on above: Performed By: #### H EMOCHROM, HAAB, HCBIGM, HCV RX PCR, HAABT, HBSAB, HBCAB, HBSAG, CERULOP, MITOM2, AFPTM, ALPHA PHEN, IGG, DYLAN, SMAB, L-K MICRO ####[facility] ,#### PT, CMP, KYLE, CBC ####[facility] [id number] Phenotype (P1) MS Normal . [facility] Comment on above: Result Comment: MM Phenotype is considered to be normal , producing normal serum levels of boodi-3-grfwcgbk inhibitor and not associated with clinical disease. [...] Ranges used to confirm phenotype. Performed at: - [facility] [id number] Welfare Eligibility Interviewer: Stewart Palmer PhD, Phone: [phone] Performed at: - [facility] [id number] Welfare Eligibility Interviewer: Beto Vincent MD, Phone: [phone] Performed By: #### H EMOCHROM, HAAB, HCBIGM, HCV RX PCR, HAABT, HBSAB, HBCAB, HBSAG, CERULOP, MITOM2, AFPTM, ALPHA PHEN, IGG, DYLAN, SMAB, L-K MICRO ####[facility] ,#### PT, CMP, KYLE, CBC ####[facility] [id number] Aspartate aminotransferase [ Enzymatic activity/volume] in Serum or PlasmaOrdered By: Immatthew Rodgers on 11-05-2024 AST [Catalytic activity/Vol] Aspartate aminotransferase [Enzymatic activity/volume] in Serum or Plasma High 13-39 [facility] Basophils Auto (Bld) [#/Vol] Ordered By: Imad Asaad on 11-05-2024 Basophils (Bld) [#/Vol] Automated basophil count 0.0-0.2 [facility] Basophils/100 WBC Auto (Bld) Ordered By: Imad Asaad on 11-05-2024 Basophils/100 WBC (Bld) Automated basophil % . [facility] Bilirubin.total [Mass/volume ] in Serum or PlasmaOrdered By: Imad Ana Maria on 11-05-2024 Bilirubin [Mass/Vol] Bilirubin.total [Mass/volume] in Serum or Plasma High 0.3-1.0 [facility] Comment on above: Samples from patient s who have taken Naproxen have shown spurious elevation in Total Bilirubin levels. A metabolite of Naproxen, O-desmethylnaproxen, has been shown to interfere with the Jenana-Evert method for measuring Total Bilirubin. Blood or tissue HFE gene mut ations identification by molecular genetics methodOrdered By: Imad Asaad on 11-05-2024 HFE gene targeted mutation analysis Molgen Nom (Bld/Tiss) Blood or tissue HFE gene mutations identification by molecular genetics method . [facility] Comment on above: Result:c.845G>A (p.C ig789Yrd) - Not Detectedc.187C>G (p.Aiy66Yoj) - Not Detectedc.193A>T (p.Iif86Evt) - Not DetectedNot associated with increased risk [...] recommended for patientswho are homozygous for c.845G>A (p.Seo795Emb) and have yetto experience clinical symptoms.Comments:The most common HFE variants associated with hereditaryhemochromatosis are c.845G>A (p.Gny638Qur), c.187C>G(p.Gqu42Oge), c.193A>T (p.Tzx05Ddx). While patientshomozygous for c.845G>A (p.Alb174Ior) are the most likelyto present clinical symptoms, less than 10% developclinically significant iron overload with tissue and organdamage.Genetic counseling is recommended to discuss the potentialclinical implications of positive results, as well asrecommendations for testing family members.Genetic Coordinators are available for health careproviders to discuss results at [phone]).Test Details:Three variants analyzed:c.845G>A (p.Fhd045Loi), commonly referred to as C282Yc.187C>G (p.Btr37Klh), commonly referred to as H63Dc.193A>T (p.Lqr89Ibo), commonly referred to as A69ICgiypba/Limitations:DNA Analysis of the HFE gene (NM_000410.4) was [...] was developed and its performancecharacteristics determined by [employer]. It has not beencleared or approved by the Food and Drug Administration.References:Rafa BR, Vel PC, Art KV, Wai LW, Nate ;[place] [employer].Diagnosis and management of hemochromatosis: 2011 practiceguideline by the [place] [employer] the Study ofLiver Diseases. Hepatology. 2010;54(1):328-43. doi:10.1002/hep.35811. PMID: 70474879; PMCID: QJS4221683.Nigel G, Clay P, Fatoumata NINA, Mervat H, Juan O,Alex S, Raulito I, Marv M, Jimbo S. [facility] best practiceguidelines for the molecular genetic diagnosis ofhereditary hemochromatosis (HH). Eur J Hum Neelima. 2016Apr;24(4):479-95. doi: 10.1038/ejhg.2015.128. Epub 2014. PMID: 86861136; PMCID: RWF8843403. Calcium [Mass/volume] in Ser um or PlasmaOrdered By: Imad Asaad on 11-05-2024 Calcium [Mass/Vol] Calcium [Mass/volume ] in Serum or Plasma 8.6-10.3 [facility] Carbon dioxide, total [Moles /volume] in Serum or PlasmaOrdered By: Imad Asaad on 11-05-2024 CO2 [Moles/Vol] Carbon dioxide, tota l [Moles/volume] in Serum or Plasma 21.0-31.0 [facility] Ceruloplasminon 11-05-2024 Ceruloplasmin 19.1 mg/dL Normal 16.0-31.0 [facility] Comment on above: Result Comment: Perf ormed at: - [facility] [address] [id number] Welfare Eligibility Interviewer: Stewart Palmer PhD, Phone: [phone] PERFORMED BY: [place] [address] PATHOLOGIST [employer] AS[employer]ER LEANDRA WALSH M.D. Performed By: #### H EMOCHROM, HAAB, HCBIGM, HCV RX PCR, HAABT, HBSAB, HBCAB, HBSAG, CERULOP, MITOM2, AFPTM, ALPHA PHEN, IGG, DYLAN, SMAB, L-K MICRO ####[facility] ,#### PT, CMP, KYLE, CBC ####[address] Chloride [Moles/volume] in S saud or PlasmaOrdered By: Derrek Rodgers on 11-05-2024 Chloride [Moles/Vol] Chloride [Moles/vol ume] in Serum or Plasma 98-107 [facility] Complete Blood Count Auto Di ffon 11-05-2024 Basophils (Bld) [#/Vol] 0.0 10*3/uL Normal 0.0-0.2 [facility] Comment on above: Result Comment: PERF ORMED BY: [place] [address] PATHOLOGIST [employer] AS[employer] LEANDRA WALSH M.D. Performed By: #### H EMOCHROM, HAAB, HCBIGM, HCV RX PCR, HAABT, HBSAB, HBCAB, HBSAG, CERULOP, MITOM2, AFPTM, ALPHA PHEN, IGG, DYLAN, SMAB, L-K MICRO #### [facility] , #### PT, CMP, KYLE, CBC #### [address] Basophils/100 WBC (Bld) 0.7 % Normal . [facility] Comment on above: Performed By: #### H EMOCHROM, HAAB, HCBIGM, HCV RX PCR, HAABT, HBSAB, HBCAB, HBSAG, CERULOP, MITOM2, AFPTM, ALPHA PHEN, IGG, DYLAN, SMAB, L-K MICRO #### [facility] , #### PT, CMP, KYLE, CBC #### [address] Eosinophils (Bld) [#/Vol] 0.1 10*3/uL Normal 0.0-0.45 [facility] Comment on above: Performed By: #### H EMOCHROM, HAAB, HCBIGM, HCV RX PCR, HAABT, HBSAB, HBCAB, HBSAG, CERULOP, MITOM2, AFPTM, ALPHA PHEN, IGG, DYLAN, SMAB, L-K MICRO #### [facility] , #### PT, CMP, KYLE, CBC #### [address] Eosinophils/100 WBC (Bld) 1.8 % Normal . [facility] Comment on above: Performed By: #### H EMOCHROM, HAAB, HCBIGM, HCV RX PCR, HAABT, HBSAB, HBCAB, HBSAG, CERULOP, MITOM2, AFPTM, ALPHA PHEN, IGG, DYLAN, SMAB, L-K MICRO #### [facility] , #### PT, CMP, KYLE, CBC #### [address] Erythrocyte distribution width (RBC) [Ratio] 19.0 % High 12.0-14.8 [facility] Comment on above: Performed By: #### H EMOCHROM, HAAB, HCBIGM, HCV RX PCR, HAABT, HBSAB, HBCAB, HBSAG, CERULOP, MITOM2, AFPTM, ALPHA PHEN, IGG, DYLAN, SMAB, L-K MICRO #### [facility] , #### PT, CMP, KYLE, CBC #### [address] Hematocrit (Bld) [Volume fraction] 37.3 % Low 38.8-50.0 [facility] Comment on above: Performed By: #### H EMOCHROM, HAAB, HCBIGM, HCV RX PCR, HAABT, HBSAB, HBCAB, HBSAG, CERULOP, MITOM2, AFPTM, ALPHA PHEN, IGG, DYLAN, SMAB, L-K MICRO #### [facility] , #### PT, CMP, KYLE, CBC #### [address] Hemoglobin (Bld) [Mass/Vol] 12.7 g/dL Low 13.0-17.0 [facility] Comment on above: Performed By: #### H EMOCHROM, HAAB, HCBIGM, HCV RX PCR, HAABT, HBSAB, HBCAB, HBSAG, CERULOP, MITOM2, AFPTM, ALPHA PHEN, IGG, DYLAN, SMAB, L-K MICRO #### [facility] , #### PT, CMP, KYLE, CBC #### [address] Lymphocytes (Bld) [#/Vol] 0.8 10*3/uL Low 1.00-4.8 [facility] Comment on above: Performed By: #### H EMOCHROM, HAAB, HCBIGM, HCV RX PCR, HAABT, HBSAB, HBCAB, HBSAG, CERULOP, MITOM2, AFPTM, ALPHA PHEN, IGG, DYLAN, SMAB, L-K MICRO #### [facility] , #### PT, CMP, KYLE, CBC #### [address] Lymphocytes/100 WBC (Bld) 11.1 % Normal . [facility] Comment on above: Performed By: #### H EMOCHROM, HAAB, HCBIGM, HCV RX PCR, HAABT, HBSAB, HBCAB, HBSAG, CERULOP, MITOM2, AFPTM, ALPHA PHEN, IGG, DYLAN, SMAB, L-K MICRO #### [facility] , #### PT, CMP, KYLE, CBC #### [address] MCH (RBC) [Entitic mass] 34.2 pg Normal 27.5-35.2 [facility] Comment on above: Performed By: #### H EMOCHROM, HAAB, HCBIGM, HCV RX PCR, HAABT, HBSAB, HBCAB, HBSAG, CERULOP, MITOM2, AFPTM, ALPHA PHEN, IGG, DYLAN, SMAB, L-K MICRO #### [facility] , #### PT, CMP, KYLE, CBC #### [address] MCV (RBC) [Entitic vol] 100.9 fL Normal 83.5-101 [facility] Comment on above: Performed By: #### H EMOCHROM, HAAB, HCBIGM, HCV RX PCR, HAABT, HBSAB, HBCAB, HBSAG, CERULOP, MITOM2, AFPTM, ALPHA PHEN, IGG, DYLAN, SMAB, L-K MICRO #### [facility] , #### PT, CMP, KYLE, CBC #### [address] Mean Corpuscular HGB Conc 33.9 g/dL Normal 32.5-35.6 [facility] Comment on above: Performed By: #### H EMOCHROM, HAAB, HCBIGM, HCV RX PCR, HAABT, HBSAB, HBCAB, HBSAG, CERULOP, MITOM2, AFPTM, ALPHA PHEN, IGG, DYLAN, SMAB, L-K MICRO #### [facility] , #### PT, CMP, KYLE, CBC #### [address] Monocytes (Bld) [#/Vol] 0.5 10*3/uL Normal 0.0-0.8 [facility] Comment on above: Performed By: #### H EMOCHROM, HAAB, HCBIGM, HCV RX PCR, HAABT, HBSAB, HBCAB, HBSAG, CERULOP, MITOM2, AFPTM, ALPHA PHEN, IGG, DYLAN, SMAB, L-K MICRO #### [facility] , #### PT, CMP, KYLE, CBC #### [address] Monocytes/100 WBC (Bld) 7.8 % Normal . [facility] Comment on above: Performed By: #### H EMOCHROM, HAAB, HCBIGM, HCV RX PCR, HAABT, HBSAB, HBCAB, HBSAG, CERULOP, MITOM2, AFPTM, ALPHA PHEN, IGG, DYLAN, SMAB, L-K MICRO #### [facility] , #### PT, CMP, KYLE, CBC #### [address] Neutrophils (Bld) [#/Vol] 5.4 10*3/uL Normal 1.8-7.7 [facility] Comment on above: Performed By: #### H EMOCHROM, HAAB, HCBIGM, HCV RX PCR, HAABT, HBSAB, HBCAB, HBSAG, CERULOP, MITOM2, AFPTM, ALPHA PHEN, IGG, DYLAN, SMAB, L-K MICRO #### [facility] , #### PT, CMP, KYLE, CBC #### [place] [address] [place] Neutrophils/100 WBC (Bld) 78.6 % Normal . [facility] Comment on above: Performed By: #### H EMOCHROM, HAAB, HCBIGM, HCV RX PCR, HAABT, HBSAB, HBCAB, HBSAG, CERULOP, MITOM2, AFPTM, ALPHA PHEN, IGG, DYLAN, SMAB, L-K MICRO #### [facility] , #### PT, CMP, KYLE, CBC #### [address] NRBC% 0.1 /100{WBC} Normal 0-0.5 [facility] Comment on above: Performed By: #### H EMOCHROM, HAAB, HCBIGM, HCV RX PCR, HAABT, HBSAB, HBCAB, HBSAG, CERULOP, MITOM2, AFPTM, ALPHA PHEN, IGG, DYLAN, SMAB, L-K MICRO #### [facility] , #### PT, CMP, KYLE, CBC #### [address] Platelet mean volume (Bld) [Entitic vol] 7.9 fL Normal 6.6-10.1 [facility] Comment on above: Performed By: #### H EMOCHROM, HAAB, HCBIGM, HCV RX PCR, HAABT, HBSAB, HBCAB, HBSAG, CERULOP, MITOM2, AFPTM, ALPHA PHEN, IGG, DYLAN, SMAB, L-K MICRO #### [facility] , #### PT, CMP, KYLE, CBC #### [address] Platelets (Bld) [#/Vol] 172 10*3/uL Normal 150-450 [facility] Comment on above: Performed By: #### H EMOCHROM, HAAB, HCBIGM, HCV RX PCR, HAABT, HBSAB, HBCAB, HBSAG, CERULOP, MITOM2, AFPTM, ALPHA PHEN, IGG, DYLAN, SMAB, L-K MICRO #### [facility] , #### PT, CMP, KYLE, CBC #### [address] RBC (Bld) [#/Vol] 3.70 10*6/uL Low 3.90-5.60 [facility] Comment on above: Performed By: #### H EMOCHROM, HAAB, HCBIGM, HCV RX PCR, HAABT, HBSAB, HBCAB, HBSAG, CERULOP, MITOM2, AFPTM, ALPHA PHEN, IGG, DYLAN, SMAB, L-K MICRO #### [facility] , #### PT, CMP, KYLE, CBC #### [address] WBC (Bld) [#/Vol] 6.8 10*3/uL Normal 4.1-10.5 [facility] Comment on above: Performed By: #### H EMOCHROM, HAAB, HCBIGM, HCV RX PCR, HAABT, HBSAB, HBCAB, HBSAG, CERULOP, MITOM2, AFPTM, ALPHA PHEN, IGG, DYLAN, SMAB, L-K MICRO #### [facility] , #### PT, CMP, KYLE, CBC #### [address] Comprehensive Metabolic Pane vinicio 11-05-2024 Albumin [Mass/Vol] 2.1 g/dL Low 3.5-5.7 [facility] Comment on above: Performed By: #### H EMOCHROM, HAAB, HCBIGM, HCV RX PCR, HAABT, HBSAB, HBCAB, HBSAG, CERULOP, MITOM2, AFPTM, ALPHA PHEN, IGG, DYLAN, SMAB, L-K MICRO #### [facility] , #### PT, CMP, KYLE, CBC #### [address] Albumin/Globulin [Mass ratio] 0.6 {ratio} Normal [facility] Comment on above: Performed By: #### H EMOCHROM, HAAB, HCBIGM, HCV RX PCR, HAABT, HBSAB, HBCAB, HBSAG, CERULOP, MITOM2, AFPTM, ALPHA PHEN, IGG, DYLAN, SMAB, L-K MICRO #### [facility] , #### PT, CMP, KYLE, CBC #### [address] ALP [Catalytic activity/Vol] 245 U/L High 34-104 [facility] Comment on above: Performed By: #### H EMOCHROM, HAAB, HCBIGM, HCV RX PCR, HAABT, HBSAB, HBCAB, HBSAG, CERULOP, MITOM2, AFPTM, ALPHA PHEN, IGG, DYLAN, SMAB, L-K MICRO #### [facility] , #### PT, CMP, KYLE, CBC #### [address] ALT [Catalytic activity/Vol] 86 U/L High 7-52 [facility] Comment on above: Performed By: #### H EMOCHROM, HAAB, HCBIGM, HCV RX PCR, HAABT, HBSAB, HBCAB, HBSAG, CERULOP, MITOM2, AFPTM, ALPHA PHEN, IGG, DYLAN, SMAB, L-K MICRO #### [facility] , #### PT, CMP, KYLE, CBC #### [address] Anion gap [Moles/Vol] 10.5 mmol/L Normal 6.0-15.[address] [facility] Comment on above: Performed By: #### H EMOCHROM, HAAB, HCBIGM, HCV RX PCR, HAABT, HBSAB, HBCAB, HBSAG, CERULOP, MITOM2, AFPTM, ALPHA PHEN, IGG, DYLAN, SMAB, L-K MICRO #### [facility] , #### PT, CMP, KYLE, CBC #### [address] AST [Catalytic activity/Vol] 77 U/L High 13-39 [facility] Comment on above: Performed By: #### H EMOCHROM, HAAB, HCBIGM, HCV RX PCR, HAABT, HBSAB, HBCAB, HBSAG, CERULOP, MITOM2, AFPTM, ALPHA PHEN, IGG, DYLAN, SMAB, L-K MICRO #### [facility] , #### PT, CMP, KYLE, CBC #### [address] Bilirubin [Mass/Vol] 3.2 mg/dL High 0.3-1.0 [facility] Comment on above: Result Comment: [...] , #### PT, CMP, KYLE, CBC #### [address] Calcium [Mass/Vol] 8.9 mg/dL Normal 8.6-10.3 [facility] Comment on above: Performed By: #### H EMOCHROM, HAAB, HCBIGM, HCV RX PCR, HAABT, HBSAB, HBCAB, HBSAG, CERULOP, MITOM2, AFPTM, ALPHA PHEN, IGG, DYLAN, SMAB, L-K MICRO #### [facility] , #### PT, CMP, KYLE, CBC #### [address] Chloride [Moles/Vol] 100 mmol/L Normal 98-107 [facility] Comment on above: Performed By: #### H EMOCHROM, HAAB, HCBIGM, HCV RX PCR, HAABT, HBSAB, HBCAB, HBSAG, CERULOP, MITOM2, AFPTM, ALPHA PHEN, IGG, DYLAN, SMAB, L-K MICRO #### [facility] , #### PT, CMP, KYLE, CBC #### [address] CO2 [Moles/Vol] 28.4 mmol/L Normal 21.0-31.0 [facility] Comment on above: Performed By: #### H EMOCHROM, HAAB, HCBIGM, HCV RX PCR, HAABT, HBSAB, HBCAB, HBSAG, CERULOP, MITOM2, AFPTM, ALPHA PHEN, IGG, DYLAN, SMAB, L-K MICRO #### [facility] , #### PT, CMP, KYLE, CBC #### [address] Creatinine [Mass/Vol] 1.18 mg/dL Normal 0.70-1.30 [facility] Comment on above: Performed By: #### H EMOCHROM, HAAB, HCBIGM, HCV RX PCR, HAABT, HBSAB, HBCAB, HBSAG, CERULOP, MITOM2, AFPTM, ALPHA PHEN, IGG, DYLAN, SMAB, L-K MICRO #### [facility] , #### PT, CMP, KYLE, CBC #### [address] GFR/1.73 sq M.predicted MDRD (S/P/Bld) [Vol rate/Area] mL/min/{1.73_m2} Normal [facility] Comment on above: Performed By: #### H EMOCHROM, HAAB, HCBIGM, HCV RX PCR, HAABT, HBSAB, HBCAB, HBSAG, CERULOP, MITOM2, AFPTM, ALPHA PHEN, IGG, DYLAN, SMAB, L-K MICRO #### [facility] , #### PT, CMP, KYLE, CBC #### [address] Globulin (S) [Mass/Vol] 3.3 g/dL Normal [facility] Comment on above: Performed By: #### H EMOCHROM, HAAB, HCBIGM, HCV RX PCR, HAABT, HBSAB, HBCAB, HBSAG, CERULOP, MITOM2, AFPTM, ALPHA PHEN, IGG, DYLAN, SMAB, L-K MICRO #### [facility] , #### PT, CMP, KYLE, CBC #### [place] [address] Glucose [Mass/Vol] 215 mg/dL High 70-100 [facility] Comment on above: Result Comment: [facility] Glucose Reference Range is dependent on time [...] , #### PT, CMP, KYLE, CBC #### [address] Potassium [Moles/Vol] 4.9 mmol/L Normal 3.5-5.1 [facility] Comment on above: Performed By: #### H EMOCHROM, HAAB, HCBIGM, HCV RX PCR, HAABT, HBSAB, HBCAB, HBSAG, CERULOP, MITOM2, AFPTM, ALPHA PHEN, IGG, DYLAN, SMAB, L-K MICRO #### [facility] , #### PT, CMP, KYLE, CBC #### [address] Protein [Mass/Vol] 5.4 g/dL Low 6.4-8.9 [facility] Comment on above: Performed By: #### H EMOCHROM, HAAB, HCBIGM, HCV RX PCR, HAABT, HBSAB, HBCAB, HBSAG, CERULOP, MITOM2, AFPTM, ALPHA PHEN, IGG, DYLAN, SMAB, L-K MICRO #### [facility] , #### PT, CMP, KYLE, CBC #### [address] Sodium [Moles/Vol] 134 mmol/L Low 136-145 [facility] Comment on above: Performed By: #### H EMOCHROM, HAAB, HCBIGM, HCV RX PCR, HAABT, HBSAB, HBCAB, HBSAG, CERULOP, MITOM2, AFPTM, ALPHA PHEN, IGG, DYLAN, SMAB, L-K MICRO #### [facility] , #### PT, CMP, KYLE, CBC #### [address] Urea nitrogen [Mass/Vol] 28 mg/dL High 7-25 [facility] Comment on above: Performed By: #### H EMOCHROM, HAAB, HCBIGM, HCV RX PCR, HAABT, HBSAB, HBCAB, HBSAG, CERULOP, MITOM2, AFPTM, ALPHA PHEN, IGG, DYLAN, SMAB, L-K MICRO #### [facility] , #### PT, CMP, KYLE, CBC #### [facility] [address] [place] [address] Creatinine [Mass/volume] in Serum or PlasmaOrdered By: Imad Asaad on 11-05-2024 Creatinine [Mass/Vol] Creatinine [Mass/v olume] in Serum or Plasma 0.70-1.30 [facility] Eosinophils Auto (Bld) [#/Vo l]Ordered By: Imad Asaad on 11-05-2024 Eosinophils (Bld) [#/Vol] Automated eosinophil count 0.0-0.45 [facility] Eosinophils/100 WBC Auto (Bl d)Ordered By: Imad Asaad on 11-05-2024 Eosinophils/100 WBC (Bld) Automated eosinophil % . [facility] Erythrocyte distribution wid th Auto (RBC) [Ratio]Ordered By: Imad Asaad on 11-05-2024 Erythrocyte distribution width (RBC) [Ratio] Erythrocyte distribution width [Ratio] by Automated count High 12.0-14.8 [facility] Ferritinon 11-05-2024 Ferritin [Mass/Vol] 1486.4 ng/mL High 23.9-336.2 [facility] Comment on above: Result Comment: PERF ORMED BY: [place] [address] PATHOLOGIST [employer] LEANDRA WALSH M.D. Performed By: #### H EMOCHROM, HAAB, HCBIGM, HCV RX PCR, HAABT, HBSAB, HBCAB, HBSAG, CERULOP, MITOM2, AFPTM, ALPHA PHEN, IGG, DYLAN, SMAB, L-K MICRO #### [facility] , #### PT, CMP, KYLE, CBC #### [facility] [address] Ferritin [Mass/volume] in Se rum or PlasmaOrdered By: [facility] on 11-05-2024 Ferritin [Mass/Vol] Ferritin [Mass/volum e] in Serum or Plasma High 23.9-336.2 [facility] Globulin Calc (S) [Mass/Vol] Ordered By: [facility] 11-05-2024 Globulin (S) [Mass/Vol] Serum globulin measurement by calculation (mass/volume) [facility] Glucose [Mass/volume] in Ser um or PlasmaOrdered By: [facility] on 11-05-2024 Glucose [Mass/Vol] Glucose [Mass/volume ] in Serum or Plasma High 70-100 [facility] Comment on above: ADA recommended refe rence rangeRandom Glucose Reference Range is dependent on time and content of last meal. Glucose of more than 200 mg/dL in a nonstressed, ambulatory subject supports the diagnosis of Diabetes Mellitus. Hematocrit Auto (Bld) [Volum e fraction]Ordered By: [facility] on 11-05-2024 Hematocrit (Bld) [Volume fraction] Hematocrit [Volume Fraction] of Blood by Automated count Low 38.8-50.0 [facility] Hemoglobin [Mass/volume] in BloodOrdered By: [facility] 11-05-2024 Hemoglobin (Bld) [Mass/Vol] Hemoglobin [Mass/volume] in Blood Low 13.0-17.0 [facility] Hep C Ab wRfx to Qnt PCRon 0 11-05-2024 Hepatitis C Virus Antibody Non-Reactive Normal Non Reactive [facility] Comment on above: Performed By: #### H EMOCHROM, HAAB, HCBIGM, HCV RX PCR, HAABT, HBSAB, HBCAB, HBSAG, CERULOP, MITOM2, AFPTM, ALPHA PHEN, IGG, DYLAN, SMAB, L-K MICRO #### [facility] , #### PT, CMP, KYLE, CBC #### [address] Interpretation Hepatitis C Comment Normal . [facility] Comment on above: Result Comment: [...] , #### PT, CMP, KYLE, CBC #### [address] Hepatitis A Antibody IgMon 0 11-05-2024 Hepatitis A Antibody IgM Negative Normal Negative [facility] Comment on above: Result Comment: A ne gative anti-HAV IgM result suggests no recent or current HAV infection. Performed By: #### H EMOCHROM, HAAB, HCBIGM, HCV RX PCR, HAABT, HBSAB, HBCAB, HBSAG, CERULOP, MITOM2, AFPTM, ALPHA PHEN, IGG, DYLAN, SMAB, L-K MICRO #### [facility] , #### PT, CMP, KYLE, CBC #### [address] Hepatitis A Antibody Totalon 11-05-2024 Hepatitis A Antibody Total Negative Normal Negative [facility] Comment on above: Result Comment: [...] total antibody results to IgM (e.g., panel #[id number] HAV Antibody w/ Rfx). Performed By: #### H EMOCHROM, HAAB, HCBIGM, HCV RX PCR, HAABT, HBSAB, HBCAB, HBSAG, CERULOP, MITOM2, AFPTM, ALPHA PHEN, IGG, DYLAN, SMAB, L-K MICRO #### [facility] , #### PT, CMP, KYLE, CBC #### [facility] [address] Hepatitis A virus Ab [Presen ce] in Serum by ImmunoassayOrdered By: Immatthew Rodgers on 11-05-2024 HAV Ab IA Ql (S) Hepatitis A virus Ab [Presence] in Serum by Immunoassay Negative [facility] Comment on above: Comment: The HAV [...] HAVtotal antibody results to IgM (e.g., panel #[id number] HAVAntibody w/ Rfx). Hepatitis A virus IgM antibo dy assayOrdered By: Immatthew Rodgers on 11-05-2024 Hepatitis A IgM Antibody Negative Negative [facility] Comment on above: A negative anti-HAV IgM result suggests no recent orcurrent HAV infection. Hepatitis B Core Antibodyon 11-05-2024 Hepatitis B Core Antibody Negative Normal Negative [facility] Comment on above: Performed By: #### H EMOCHROM, HAAB, HCBIGM, HCV RX PCR, HAABT, HBSAB, HBCAB, HBSAG, CERULOP, MITOM2, AFPTM, ALPHA PHEN, IGG, DYLAN, SMAB, L-K MICRO ####[facility] ,#### PT, CMP, KYLE, CBC ####[facility] [id number] Hepatitis B Core Antibody Ig Mon 11-05-2024 Hepatitis B Core Antibody IgM Negative Normal Negative [facility] Comment on above: Result Comment: Perf ormed at: CB - [facility] [address] [id number] Welfare Eligibility Interviewer: Stewart Palmer PhD, Phone: [phone] Performed By: #### H EMOCHROM, HAAB, HCBIGM, HCV RX PCR, HAABT, HBSAB, HBCAB, HBSAG, CERULOP, MITOM2, AFPTM, ALPHA PHEN, IGG, DYLAN, SMAB, L-K MICRO #### [facility] , #### PT, CMP, KYLE, CBC #### [facility] [address] Hepatitis B Surface Antibody on 11-05-2024 Hepatitis B Surface Antibody Non-Reactive Normal . [facility] Comment on above: Result Comment: [...] MICRO ####[facility] ,#### PT, CMP, KYLE, CBC ####[address] Hepatitis B Surface Antigeno n 11-05-2024 HBsAg Screen Negative Normal Negative [facility] Comment on above: Result Comment: PERF ORMED BY: [facility] [address] [place] [address] PATHOLOGIST [employer] LEANDRA WALSH M.D. Performed By: #### H EMOCHROM, HAAB, HCBIGM, HCV RX PCR, HAABT, HBSAB, HBCAB, HBSAG, CERULOP, MITOM2, AFPTM, ALPHA PHEN, IGG, DYLAN, SMAB, L-K MICRO ####[facility] ,#### PT, CMP, KYLE, CBC ####[address] Hepatitis B virus core IgM a ntibody assayOrdered By: Derrek Rodgers on 11-05-2024 Hepatitis B Core IgM Antibody Negative Negative [facility] Comment on above: Performed at: [facility] [address] [id number] Director: Stewart Palmer PhD, Phone: [phone] Hepatitis B virus core antib sarai assayOrdered By: Derrek Rodgers on 11-05-2024 Hepatitis B Core Total Antibody Negative Negative [facility] Hepatitis C virus IgG Ab [Pr esence] in Serum or Plasma by ImmunoassayOrdered By: Juan Carlosmatthew Rodgers on 11-05-2024 HCV IgG IA Ql Hepatitis C virus Ig G Ab [Presence] in Serum or Plasma by Immunoassay Non Reactive [facility] Hereditary Hemochromatosis,D NAon 11-05-2024 Hereditary Hemochromatosis Comment Normal . [facility] Comment on above: Result Comment: Resu lt: c.845G>A (p.Mxh416Mso) - Not Detected c.187C>G (p.Oho60Kcc) - Not Detected c.193A>T (p.Gqk73Pvc) - Not Detected Not associated with increased [...] for patients who are homozygous for c.845G>A (p.Yag926Bcj) and have yet to experience clinical symptoms. Comments: The most common HFE variants associated with hereditary hemochromatosis are c.845G>A (p.Kxm138Qip), c.187C>G (p.Zmv55Npa), c.193A>T (p.Tpm76Pbm). While patients homozygous for c.845G>A (p.Njg261Qut) are the most likely to present clinical symptoms, less than 10% develop clinically significant iron overload with tissue and organ damage. Genetic counseling is recommended to discuss the potential clinical implications of positive results, as well as recommendations for testing family members. Genetic Coordinators are available for health care providers to discuss results at [phone] ([phone]). Test Details: Three variants analyzed: c.845G>A (p.Ihp213Mvq), commonly referred to as C282Y c.187C>G (p.Afv38Mwy), commonly referred to as H63D c.193A>T (p.Ksg95Hwd), commonly referred to as S65C Methods/Limitations: DNA [...] developed and its performance characteristics determined by [employer]. It has not been cleared or approved by the Food and Drug Administration. References: Rafa BR, Vel PC, Art KV, Wai LW, Nate ; [place] [employer]. Diagnosis and management of hemochromatosis: 2011 practice guideline by the [place] [employer]. Hepatology. 2010;54(1):328-43. doi: 10.1002/hep.68823. PMID: 21367201; PMCID: LNH0343991. Nigel G, Clay P, Fatoumata DW, Mervat H, Juan O, Alex S, Raulito I, Marv M, Jimbo Johns. [facility] best practice guidelines for the molecular genetic diagnosis of hereditary hemochromatosis (HH). Eur J Hum [place]elima. 2016 Oct;24(4):479-95. doi: 10.1038/ejhg.2015.128. Epub 2014Feb 02. PMID: 06873126; PMCID: TKW7466789. Performed By: #### H EMOCHROM, HAAB, HCBIGM, HCV RX PCR, HAABT, HBSAB, HBCAB, HBSAG, CERULOP, MITOM2, AFPTM, ALPHA PHEN, IGG, DYLAN, SMAB, L-K MICRO #### [facility] , #### PT, CMP, KYLE, CBC #### [address] Reviewed by: Comment Normal . [facility] Comment on above: Result Comment: Tech nical Component performed at [facility] Professional Component performed by: Richa Cuba, Ph.D., FACMG Director, Molecular Genetics [address] [place] [address] [facility] [address] Performed at: - [facility] RTP [address] [place], [place] [id number] Welfare Eligibility Interviewer: Daryl Lara [facility], Phone: [phone] PERFORMED BY: [place] [address] PATHOLOGIST [employer] AS[employer] LEANDRA WALSH M.D. Performed By: #### H EMOCHROM, HAAB, HCBIGM, HCV RX PCR, HAABT, HBSAB, HBCAB, HBSAG, CERULOP, MITOM2, AFPTM, ALPHA PHEN, IGG, DYLAN, SMAB, L-K MICRO #### [facility] , #### PT, CMP, KYLE, CBC #### [address] INR in Platelet poor plasma by Coagulation assayOrdered By: Imad Asaad on 11-05-2024 INR Coag (PPP) [Relative time] INR in Platelet poor plasma by Coagulation assay [facility] Comment on above: INR Therapeutic Rang [...] heart valves: 3 - 4.5 Immunoglobulin Goran 04-10-202 5 Immunoglobulin G 1263 mg/dL Normal [id number] [facility] Comment on above: Result Comment: Perf ormed at: [address] [id number] Welfare Eligibility Interviewer: Stewart Palmer PhD, Phone: [phone] Performed By: #### H EMOCHROM, HAAB, HCBIGM, HCV RX PCR, HAABT, HBSAB, HBCAB, HBSAG, CERULOP, MITOM2, AFPTM, ALPHA PHEN, IGG, DYLAN, SMAB, L-K MICRO ####[facility] ,#### PT, CMP, KYLE, CBC ####[facility] Oot[address] Leukocytes [#/volume] correc adrián for nucleated erythrocytes in Blood by Automated counOrdered By: Derrek Rodgers on 11-05-2024 WBC corrected for nucl RBC Auto (Bld) [#/Vol] Leukocytes [#/volume] corrected for nucleated erythrocytes in Blood by Automated coun 4.1-10.5 [facility] Liver-Kidney Microsomal Abon 11-05-2024 Liver-Kidney Microsomal Ab <1.0 Normal 0.0-20.0 [facility] Comment on above: Result Comment: Nega tive 0.0 - 20.0 Equivocal 20.1 - 24.9 Positive >24.9 LKM type 1 antibodies are detected in patients with autoimmune hepatitis type 2 and in up to 8% of patients with chronic HCV infection. Performed at: [address] [id number] Welfare Eligibility Interviewer: Stewart Palmer PhD, Phone: [phone] Performed By: #### H EMOCHROM, HAAB, HCBIGM, HCV RX PCR, HAABT, HBSAB, HBCAB, HBSAG, CERULOP, MITOM2, AFPTM, ALPHA PHEN, IGG, DYLAN, SMAB, L-K MICRO #### [facility] , #### PT, CMP, KYLE, CBC #### [facility] [address] Lymphocytes Auto (Bld) [#/Vo l]Ordered By: Imad Asaad on 11-05-2024 Lymphocytes (Bld) [#/Vol] Lymphocytes [#/volume] in Blood by Automated count Low 1.00-4.8 [facility] Lymphocytes/100 WBC Auto (Bl d)Ordered By: Imad Asaad on 11-05-2024 Lymphocytes/100 WBC (Bld) Lymphocytes/100 leukocytes in Blood by Automated count . [facility] MCH Auto (RBC) [Entitic mass ]Ordered By: Imad Asaad on 11-05-2024 MCH (RBC) [Entitic mass] MCH [Entitic mass] by Automated count 27.5-35.2 [facility] MCHC Auto (RBC) [Mass/Vol]Or dered By: ad Asaad on 11-05-2024 MCHC (RBC) [Mass/Vol] MCHC [Mass/volume] by Automated count 32.5-35.6 [facility] MCV Auto (RBC) [Entitic vol] Ordered By: ad Asaad on 11-05-2024 MCV (RBC) [Entitic vol] MCV [Entitic volume] by Automated count 83.5-101 [facility] Mitochondrial (M2) Antibodyo n 11-05-2024 Mitochondrial (M2) Antibody <20.0 Normal 0.0-20.0 [facility] Comment on above: Result Comment: Nega tive 0.0 - 20.0 Equivocal 20.1 - 24.9 Positive >24.9 Mitochondrial (M2) Antibodies are found in 90-96% of patients with primary biliary cirrhosis. Performed By: #### H EMOCHROM, HAAB, HCBIGM, HCV RX PCR, HAABT, HBSAB, HBCAB, HBSAG, CERULOP, MITOM2, AFPTM, ALPHA PHEN, IGG, DYLAN, SMAB, L-K MICRO ####[facility] ,#### PT, CMP, KYLE, CBC ####[facility] [id number] [place] [id number] [facility] Monocytes Auto (Bld) [#/Vol] Ordered By: ad Asaad on 11-05-2024 Monocytes (Bld) [#/Vol] Automated blood monocyte count 0.0-0.8 [facility] Monocytes/100 WBC Auto (Bld) Ordered By: Imad Asaad on 11-05-2024 Monocytes/100 WBC (Bld) Automated monocyte % . [facility] Neutrophils Auto (Bld) [#/Vo l]Ordered By: Imad Asaad on 11-05-2024 Neutrophils (Bld) [#/Vol] Neutrophils [#/volume] in Blood by Automated count 1.8-7.7 [facility] Neutrophils/100 WBC Auto (Bl d)Ordered By: Imad Asaad on 11-05-2024 Neutrophils/100 WBC (Bld) Automated neutrophil % . [facility] No Panel InformationOrdered By: Imad Asaad on 11-05-2024 Estimated GFR (CKD-EPI) > 60.0 mL/Min [facility] Hemochromatosis Note Comment . [facility] Comment on above: Technical Component performed at [email or web address] RTPProfessional Component performed by:Richa Cuba, Ph.D., FACMGDirector, Molecular [id number] [facility] [id number] at: - [email or web address] [id number] [place], [place] [id number] Director: Daryl Lara [facility], Phone: [phone] Hepatitis C Interpretation Comment . [facility] Comment on above: Not infected with HC V unless early or acute infection issuspected (which may be delayed in an immunocompromisedindividual), or other evidence exists to indicate HCVinfection. Pharmacy Creatinine Clearance (Chem N/A [facility] Nucleated erythrocytes [Pres ence] in Blood by Automated countOrdered By: Imad Asaad on 11-05-2024 Nucleated RBC Auto Ql (Bld) Nucleated erythrocytes [Presence] in Blood by Automated count 0-0.5 [facility] Platelet mean volume Auto (B ld) [Entitic vol]Ordered By: Imad Asaad on 11-05-2024 Platelet mean volume (Bld) [Entitic vol] Platelet mean volume [Entitic volume] in Blood by Automated count 6.6-10.1 [facility] Platelets Auto (Bld) [#/Vol] Ordered By: Imad Asaad on 11-05-2024 Platelets (Bld) [#/Vol] Platelets [#/volume] in Blood by Automated count 150-450 [facility] Potassium [Moles/volume] in Serum or PlasmaOrdered By: Imad Asaad on 11-05-2024 Potassium [Moles/Vol] Potassium [Moles/v olume] in Serum or Plasma 3.5-5.1 [facility] Protein [Mass/volume] in Ser um or PlasmaOrdered By: Imad Asaad on 11-05-2024 Protein [Mass/Vol] Protein [Mass/volume ] in Serum or Plasma Low 6.4-8.9 [facility] Prothrombin Time INRon 11-05 INR Coag (PPP) [Relative time] 1.2 {INR} Normal [facility] Comment on above: Result Comment: [...] heart valves: 3 - 4.5 PERFORMED BY: [place] [address] PATHOLOGIST [employer] AS[employer] LEANDRA WALSH M.D. Performed By: #### H EMOCHROM, HAAB, HCBIGM, HCV RX PCR, HAABT, HBSAB, HBCAB, HBSAG, CERULOP, MITOM2, AFPTM, ALPHA PHEN, IGG, DYLAN, SMAB, L-K MICRO #### [facility] , #### PT, CMP, KYLE, CBC #### [facility] [address] PT Coag (PPP) [Time] 13.4 s High 9.0-12.9 [facility] Comment on above: Result Comment: A he matocrit value greater than 55% may lead to inaccurate results in coagulation testing. Patients having hematocrit values >55% require a special collection tube for coagulation studies. Please contact the laboratory at [phone] for redraw instructions. Performed By: #### H EMOCHROM, HAAB, HCBIGM, HCV RX PCR, HAABT, HBSAB, HBCAB, HBSAG, CERULOP, MITOM2, AFPTM, ALPHA PHEN, IGG, DYLAN, SMAB, L-K MICRO #### [facility] , #### PT, CMP, KYLE, CBC #### [facility] [address] Prothrombin time (PT)Ordered By: Derrek Rodgers on 11-05-2024 PT Coag (PPP) [Time] Prothrombin time (PT) High 9.0- 12.9 [facility] Comment on above: A hematocrit value g reater than 55% may lead to inaccurate results in coagulation testing. Patients having hematocrit values >55% require a special collection tube for coagulation studies. Please contact the laboratory at [phone] for redraw instructions. RBC Auto (Bld) [#/Vol]Ordere d By: matthew Rodgers on 11-05-2024 RBC (Bld) [#/Vol] Erythrocytes [#/volu me] in Blood by Automated count Low 3.90-5.60 [facility] Serum hepatitis B virus surf jaimie antibody detectionOrdered By: matthew Melton 11-05-2024 HBV surface Ab Ql (S) Hepatitis B virus surface Ab [Presence] in Serum . [facility] Comment on above: Non Reactive: Not im mune to HBV infection. Equivocal: Unable to determine if anti-HBs is present at levels consistent with immunity. Reactive: Anti-HBs concentration detected at greater than 10 mIU/mL. Individual is considered to be immune to infection with HBV. Serum homogeneous pattern an tinuclear antibody (DYLAN) titerOrdered By: Derrek Rodgers on 11-05-2024 Homogenous nuclear Ab pattern (S) [Titer] Serum homogeneous pattern antinuclear antibody (DYLAN) titer [facility] Serum mitochondria M2 IgG an tibody assay (units/volume)Ordered By: [facility] 11-05-2024 Mitochondria M2 IgG Qn (S) Serum mitochondria M2 IgG antibody assay (units/volume) 0.0-20.0 [facility] Comment on above: Negative 0.0 - 20.0 Equivocal 20.1 - 24.9 Positive >24.9Mitochondrial (M2) Antibodies are found in 90-96% ofpatients with primary biliary cirrhosis. Serum nuclear antibody titer Ordered By: Derrek Rodgers on 11-05-2024 Nuclear Ab (S) [Titer] Serum nuclear ant ibody titer . [facility] Comment on above: Negative <1:80 Westley lynnine 1:80 Positive >1:80ICAP nomenclature: AC-0For more information about Hep-2 cell patterns useANApatterns.org, the official website for theInternational Consensus on Antinuclear Antibody (DYLAN)Patterns (ICAP).Performed at: [facility] [address] [id number] Director: Stewart Palmer PhD, Phone: [phone] Serum or plasma IgG measurem ent (mass/volume)Ordered By: Derrek Rodgers on 11-05-2024 IgG [Mass/Vol] IgG [Mass/volume] in Serum or Plasma [phone] [facility] Comment on above: Performed at: [facility] [address] [id number] Director: Stewart Palmer PhD, Phone: [phone] Serum or plasma albumin/glob ulin mass ratioOrdered By: Derrek Rodgers on 11-05-2024 Albumin/Globulin [Mass ratio] Serum or plasma albumin/globulin mass ratio [facility] Serum or plasma alpha 1 anti trypsin measurement (mass/volume)Ordered By: matthew Rodgers on 11-05-2024 Alpha 1 antitrypsin [Mass/Vol] Serum [id number] measurement 101-187 [facility] Serum or plasma alpha 1 anti trypsin phenotyping identification by immunofixationOrdered By: Derrek Rodgers on 11-05-2024 Alpha 1 antitrypsin phenotyping Immunofixation Nom Serum or plasma alpha 1 antitrypsin phenotyping identification by immunofixation . [facility] Comment on above: MM Phenotype is co nsidered to be normal , producingnormal serum levels of luknp-8-mtbdhsig inhibitor andnot associated with clinical disease. Associated E5Hqyzae serum levels in other phenotypes and theirincidence [...] reference. Ranges used to confirm phenotype.Performed at: [address] [id number] Director: Stewart Palmer PhD, Phone: [phone] at: [address] [id number] Director: Beto Vincent MD, Phone: [phone] Serum or plasma lqqne-2-ropp protein tumor marker measurement (mass/volume)Ordered By: Derrek Rodgers on 11-05-2024 AFP.tumor marker [Mass/Vol] Serum or plasma sciuz-2-atvmklhscng tumor marker measurement (mass/volume) High 0.0-8.4 [facility] Comment on above: [facility] El ectrochemiluminescence Immunoassay(ECLIA)Values obtained with different assay methods or kits cannotbe used interchangeably. Results cannot be interpreted asabsolute evidence of the presence or absence of malignantdisease.This test is not interpretable in females.Performed at: [facility] KeyCAPTCHA[address] [id number] Director: Stewart Palmer PhD, Phone: [phone] Serum or plasma anion gap de terminationOrdered By: Derrek Rodgers on 11-05-2024 Anion gap [Moles/Vol] Serum or plasma an ion gap determination 6.0-15.0 [facility] Serum or plasma ceruloplasmi n measurement (mass/volume)Ordered By: Derrek Rodgers on 11-05-2024 Ceruloplasmin [Mass/Vol] Serum or plasma ceruloplasmin measurement (mass/volume) 16.0-31.0 [facility] Comment on above: Performed at: [facility] [id number] [place], [place] [id number] Director: Stewart Palmer PhD, Phone: [phone] Serum or plasma hepatitis B virus surface antigen detection by immunoassayOrdered By: Imad Asaad on 11-05-2024 HBV surface Ag IA Ql Hepatitis B virus s urface Ag [Presence] in Serum or Plasma by Immunoassay Negative [facility] Serum or plasma lipoprotein a measurement (moles/volume)Ordered By: Imad Asaad on 11-05-2024 Lipoprotein a [Moles/Vol] Serum or plasma lipoprotein a measurement (moles/volume) 0.0-20.0 [facility] Comment on above: Negative 0.0 - 20.0 Equivocal 20.1 - 24.9 Positive >24.9LKM type 1 antibodies are detected in patients withautoimmune hepatitis type 2 and in up to 8% ofpatients with chronic HCV infection.Performed at: [facility] [address] [id number] Director: Stewart Palmer PhD, Phone: [phone] Smooth Muscle Antibodyon Smooth Muscle Antibody 4 Normal 0-19 [facility] Comment on above: Result Comment: [...] MICRO ####[facility] ,#### PT, CMP, KYLE, CBC ####[facility] [address] [place] [address] [facility] Sodium [Moles/volume] in Ser um or PlasmaOrdered By: Imad Asaad on 11-05-2024 Sodium [Moles/Vol] Sodium [Moles/volume ] in Serum or Plasma Low 136-145 [facility] Urea nitrogen [Mass/volume] in Serum or PlasmaOrdered By: Immatthew Rodgers on 11-05-2024 Urea nitrogen [Mass/Vol] Urea nitrogen [Mass/volume] in Serum or Plasma High 7-25 [facility] WBC Auto (Bld) [#/Vol]Ordere d By: Imad Asaad on 11-05-2024 WBC (Bld) [#/Vol] Leukocytes [#/volume ] in Blood by Automated count 4.1-10.5 [facility] X-ray reportOrdered By: Wally Noland on 11-02-2024 Study report [facility] [place] [address] XRay Report Signed Patient: Gerson Penn MR#: [id number] : 1955 Acct:[id number] Age/Sex: 68 / M ADM Date: 5 [place]: [facility] [place]: Type: [facility] Attending Dr: Geoffrey Ibrahim DO Copies [...] COMPLICATION. Impression dictated by: Gage Noland Jr., D.OBranden11/02/2024 2:57 PM Dictation Location: [place] [address] Transcribed By: [facility] 11/02/24 145 Dictated By: Gage Noland Jr, DO 11/02/24 1456 Signed By: 11/02/24 1457 [facility] XR elbow LT 2Von 11-02-2024 XR elbow LT 2V [facility] [place] [address] XRay Report Signed Patient: Gerson Penn MR#: [id number] : 1955 Acct:[id number] Age/Sex: 68 / M ADM Date: 11/02/24 Loc: [facility] Room: Type: [facility] Attending Dr: Geoffrey Ibrahim DO Copies [...] COMPLICATION. Impression dictated by: Gage Noland Jr., D.OBranden11/02/2024 2:57 PM Dictation Location: [place] [address] Transcribed By: [facility] 11/02/24 1457 Dictated By: Gage Noland Jr, DO 11/02/24 1456 Signed By: 11/02/24 1457 Normal [facility] Urine Cultureon 10-20-2024 Bacteria identified Cx Nom (U) ORGANISM: Enterobacter cloacae complex (O:ENTCLOCPLX) Irving Count >100,000 Aerobic LACHELLE Charge (NMIC56) SUSCEPTIBILITY [...] RESISTANT TO ALL B-LACTAM DRUGS. PERFORMED BY: [place] [address] PATHOLOGIST [employer] LEANDRA WALSH M.D. Normal [facility] Comment on above: Performed By: #### H EMOCHROM, HAAB, HCBIGM, HCV RX PCR, HAABT, HBSAB, HBCAB, HBSAG, CERULOP, MITOM2, AFPTM, ALPHA PHEN, IGG, DYLAN, SMAB, L-K MICRO #### [facility] , #### PT, CMP, KYLE, CBC #### [facility] [address] Urine cultureOrdered By: Marisol Ren on 10-20-2024 Bacteria identified Cx Nom (U) Abnormal [facility] X-ray reportOrdered By: Steven Rock on 10-07-2024 Study report [facility] [address] [place] [address] XRay Report Signed Patient: Gerson Penn MR#: [id number] : 1955 Acct:[id number] Age/Sex: 68 / M ADM Date: 5 [place]: [facility] [place]: Type: [facility] Attending Dr: Geoffrey Ibrahim DO Copies [...] Lamont Rock M.D.10/07/2024 2:30 PM Dictation Location: RADIO-PC-23 Transcribed By: GODFREY 10/07/24 143 Dictated By: Lamont Rock MD 10/07/241428 Signed By: 10/07/24 1430 [facility] Work Phone: XR elbow LT 2Von 10-07-2024 XR elbow LT 2V [facility] [address] [place] [address] XRay Report Signed Patient: Gerson Penn MR#: [id number] : 1955 Acct:[id number] Age/Sex: 68 / M ADM Date: 10/07/24 Loc: [facility] Room: Type: [facility] Attending Dr: Geoffrey Ibrahim DO Copies [...] Lamont Rock M.D.10/07/2024 2:30 PM Dictation Location: RADIO-PC-23 Transcribed By: GODFREY 10/07/24 143 Dictated By: Lamont Rock MD 10/07/241428 Signed By: 10/07/24 1430 Normal [facility] Glucose Glucometer (BldC) [M ass/Vol]Ordered By: Geoffrey Ibrahim on 09-22-2024 Glucose [Mass/Vol] Capillary blood gluc ose measurement by glucometer (mass/volume) [facility] Comment on above: Random Glucose Refer ence Range is dependent on time and content of last meal. Glucose of more than 200 mg/dL in a nonstressed, ambulatory subject supports the diagnosis of Diabetes Mellitus. Glucose Poct Glucometerson 0 09-22-2024 Commemt1 Glu2: Cleaned Meter Normal [facility] Comment on above: Result Comment: PERF ORMED BY: [address] [place] [address] PATHOLOGIST [employer] LEANDRA WALSH M.D. Performed By: #### H EMOCHROM, HAAB, HCBIGM, HCV RX PCR, HAABT, HBSAB, HBCAB, HBSAG, CERULOP, MITOM2, AFPTM, ALPHA PHEN, IGG, DYLAN, SMAB, L-K MICRO #### [facility] , #### PT, CMP, KYLE, CBC #### [address] Glucose [Mass/Vol] 115 mg/dL Normal [facility] Comment on above: Result Comment: [place] om Glucose Reference Range is dependent on time and content of last meal. Glucose of more than 200 mg/dL in a nonstressed, ambulatory subject supports the diagnosis of Diabetes Mellitus. Performed By: #### H EMOCHROM, HAAB, HCBIGM, HCV RX PCR, HAABT, HBSAB, HBCAB, HBSAG, CERULOP, MITOM2, AFPTM, ALPHA PHEN, IGG, DYLAN, SMAB, L-K MICRO #### [facility] , #### PT, CMP, KYLE, CBC #### [facility] [address] [place] [address] [place] Glucose [Mass/Vol] 126 mg/dL Normal [facility] Comment on above: Result Comment: [place] Glucose Reference Range is dependent on time and content of last meal. Glucose of more than 200 mg/dL in a nonstressed, ambulatory subject supports the diagnosis of Diabetes Mellitus. PERFORMED BY: [address] [place] [address] PATHOLOGIST [employer] LEANDRA WALSH M.D. Performed By: #### H EMOCHROM, HAAB, HCBIGM, HCV RX PCR, HAABT, HBSAB, HBCAB, HBSAG, CERULOP, MITOM2, AFPTM, ALPHA PHEN, IGG, DYLAN, SMAB, L-K MICRO #### [facility] , #### PT, CMP, KYLE, CBC #### [facility] [address] [place] [address] [facility] 09-22-2024 L ------- Specimen: [id number] Received: 09/22/24 Status: ARYA Vargas Num: [id number] Spec Type: Surgical Subm Dr: Geoffrey Ibrahim DO Tissues: A Joint/Knee (LEFT ARM BONE AND TISSUE) Procedures: HE/2, Gross/Micro L4, Decalcification Age/ Patient Sex Location Account Attending Physician Gerson Penn/[place]y [place] [id number] Geoffrey Ibrahim DO SPEC NUM: [id number] RECD: 09/22/24 STATUS: ARYA VARGAS NUM: [id number] NAE: 09/22/24 [facility] DR: Geoffrey Ibrahim DO ENTERED: 09/22/[address] [facility] [address]: ROSAS TYPE: Surgical DEPT: S ORDERED: HE/2, [...] medullary bone is cordero, firm and uniform. Pari Mutuel Clerk sections are submitted in A1?A2 after decalcification in rapid Nicolas immuno. (2, , [id number] A)JACK Specimen: [id number] Received: 09/22/24 Status: ARYA Vargas Num: [id number] Spec Type: Surgical Subm Dr: Geoffrey Ibrahim DO Tissues: A Joint/Knee (LEFT ARM BONE AND TISSUE) Procedures: HE/2, Gross/Micro L4, Decalcification Patient: Gerson Penn [id number] (Continued) Specimen: Received: 09/22/24 (Continued) Signed (signature on file) Lino Coffman MD 09/25/24 1821 Specimen: [id number] Received: 09/22/24 Status: ARYA Vargas Num: [id number] Spec Type: Surgical Subm Dr: Geoffrey Ibrahim DO Tissues: A Joint/Knee (LEFT ARM BONE AND TISSUE) Procedures: HE/2, Gross/Micro L4, Decalcification Patient: Gerson Penn [id number] (Continued) Specimen: [id number] Received: 09/22/24 (Continued) Microscopic Description Microscopic examinations are performed supporting the above interpretation CPT Codes [id number] Specimen: [id number] Received: 09/22/24 Status: ARYA Vargas Num: [id number] Spec Type: Surgical Subm Dr: Geoffrey Ibrahim, Tissues: A Joint/Knee (LEFT ARM BONE AND TISSUE) Procedures: HE/2, Gross/Micro L4, Decalcification Patient: Gerson Penn [id number] (Continued) Signed (signature on file) Chin-Ari Coffman MD 09/25/24 182 Normal [facility] No Panel InformationOrdered By: Geoffrey Ibrahim on 09-22-2024 Bedside Glucose Comment Glu2: cleaned meter [facility] XR elbow LT min 3V*on 2024 XR elbow LT min 3V* [place] [address] XRay Report Signed Patient: Gerson Penn MR#: [id number] : 1955 Acct:[id number] Age/Sex: 68 / M ADM Date: 09/22/24 Loc: [place] Room: Type: [facility] Attending Dr: Geoffrey Ibrahim DO Copies [...] Clark Méndez M.D.09/22/2024 5:18 PM Dictation Location: [place] [address] Transcribed By: GODFREY 09/22/241717 Dictated By: Clark Méndez II, MD 09/22/241716 Signed By: 09/22/241717 Normal [facility] Alanine aminotransferase [En zymatic activity/volume] in Serum or PlasmaOrdered By: Geoffrey Ibrahim on 09-21-2024 ALT [Catalytic activity/Vol] Alanine aminotransferase [Enzymatic activity/volume] in Serum or Plasma High 7-52 [facility] Albumin [Mass/volume] in Ser um or Plasma by Bromocresol green (BCG) dye binding methoOrdered By: Geoffrey Ibrahim on 09-21-2024 Albumin BCG dye [Mass/Vol] Albumin [Mass/volume] in Serum or Plasma by Bromocresol green (BCG) dye binding metho Low 3.5-5.7 [facility] Alkaline phosphatase [Enzyma tic activity/volume] in Serum or PlasmaOrdered By: Geoffrey Ibrahim on 09-21-2024 ALP [Catalytic activity/Vol] Alkaline phosphatase [Enzymatic activity/volume] in Serum or Plasma High 34-104 [facility] Appearance of UrineOrdered B y: Geoffrey Ibrahim on 09-21-2024 Appearance (U) Urine appearance [facility] Aspartate aminotransferase [ Enzymatic activity/volume] in Serum or PlasmaOrdered By: Geoffrey Ibrahim on 09-21-2024 AST [Catalytic activity/Vol] Aspartate aminotransferase [Enzymatic activity/volume] in Serum or Plasma High 13-39 [facility] Basophils Auto (Bld) [#/Vol] Ordered By: Geoffrey Ibrahim on 09-21-2024 Basophils (Bld) [#/Vol] Automated basophil count [facility] Basophils/100 WBC Auto (Bld) Ordered By: Geoffrey Ibrahim on 09-21-2024 Basophils/100 WBC (Bld) Automated basophil % [facility] Bilirubin Test strip Ql (U)O rdered By: Geoffrey Ibrahim on 09-21-2024 Bilirubin Ql (U) Bilirubin.total [Pre sence] in Urine by Test strip Negative [facility] Bilirubin.total [Mass/volume ] in Serum or PlasmaOrdered By: Geoffrey Ibrahim on 09-21-2024 Bilirubin [Mass/Vol] Bilirubin.total [Mass/volume] in Serum or Plasma High 0.3-1.0 [facility] Comment on above: Samples from patient s who have taken Naproxen have shown spurious elevation in Total Bilirubin levels. A metabolite of Naproxen, O-desmethylnaproxen, has been shown to interfere with the Jendrradhaik-Evert method for measuring Total Bilirubin. Blood estimated average gluc ose determination by estimation from glycated hemoglobinOrdered By: Geoffrey Ibrahim on 09-21-2024 Average glucose Estimated from glycated hemoglobin (Bld) [Mass/Vol] Glucose mean value [Mass/volume] in Blood Estimated from glycated hemoglobin [facility] CMP with reflex to A1Con Albumin [Mass/Vol] 2.6 g/dL Low 3.5-5.7 [facility] Comment on above: Performed By: #### H EMOCHROM, HAAB, HCBIGM, HCV RX PCR, HAABT, HBSAB, HBCAB, HBSAG, CERULOP, MITOM2, AFPTM, ALPHA PHEN, IGG, DYLAN, SMAB, L-K MICRO #### [facility] , #### PT, CMP, KYLE, CBC #### [facility] [address] Albumin/Globulin [Mass ratio] 0.7 {ratio} Normal [facility] Comment on above: Performed By: #### H EMOCHROM, HAAB, HCBIGM, HCV RX PCR, HAABT, HBSAB, HBCAB, HBSAG, CERULOP, MITOM2, AFPTM, ALPHA PHEN, IGG, DYLAN, SMAB, L-K MICRO #### [facility] , #### PT, CMP, KYLE, CBC #### [facility] [address] ALP [Catalytic activity/Vol] 289 U/L High 34-104 [facility] Comment on above: Result Comment: PERF ORMED BY: [place] [address] PATHOLOGIST [employer] LEANDRA WALSH M.D. Performed By: #### H EMOCHROM, HAAB, HCBIGM, HCV RX PCR, HAABT, HBSAB, HBCAB, HBSAG, CERULOP, MITOM2, AFPTM, ALPHA PHEN, IGG, DYLAN, SMAB, L-K MICRO #### [facility] , #### PT, CMP, KYLE, CBC #### [address] ALT [Catalytic activity/Vol] 70 U/L High 7-52 [facility] Comment on above: Performed By: #### H EMOCHROM, HAAB, HCBIGM, HCV RX PCR, HAABT, HBSAB, HBCAB, HBSAG, CERULOP, MITOM2, AFPTM, ALPHA PHEN, IGG, DYLAN, SMAB, L-K MICRO #### [facility] , #### PT, CMP, KYLE, CBC #### [address] Anion gap [Moles/Vol] 10.6 mmol/L Normal 6.0-15.0 [facility] Comment on above: Performed By: #### H EMOCHROM, HAAB, HCBIGM, HCV RX PCR, HAABT, HBSAB, HBCAB, HBSAG, CERULOP, MITOM2, AFPTM, ALPHA PHEN, IGG, DYLAN, SMAB, L-K MICRO #### [facility] , #### PT, CMP, KYLE, CBC #### [address] AST [Catalytic activity/Vol] 143 U/L High 13-39 [facility] Comment on above: Performed By: #### H EMOCHROM, HAAB, HCBIGM, HCV RX PCR, HAABT, HBSAB, HBCAB, HBSAG, CERULOP, MITOM2, AFPTM, ALPHA PHEN, IGG, DYLAN, SMAB, L-K MICRO #### [facility] , #### PT, CMP, KYLE, CBC #### [address] Bilirubin [Mass/Vol] 1.8 mg/dL High 0.3-1.0 [facility] Comment on above: Result Comment: Samp les from patients who have taken Naproxen have shown spurious elevation in Total Bilirubin levels. A metabolite of Naproxen, O-desmethylnaproxen, has been shown to interfere with the Jendrradhaik-Grof method for measuring Total Bilirubin. Performed By: #### H EMOCHROM, HAAB, HCBIGM, HCV RX PCR, HAABT, HBSAB, HBCAB, HBSAG, CERULOP, MITOM2, AFPTM, ALPHA PHEN, IGG, DYLAN, SMAB, L-K MICRO #### [facility] , #### PT, CMP, KYLE, CBC #### [address] Calcium [Mass/Vol] 8.9 mg/dL Normal 8.6-10.3 [facility] Comment on above: Performed By: #### H EMOCHROM, HAAB, HCBIGM, HCV RX PCR, HAABT, HBSAB, HBCAB, HBSAG, CERULOP, MITOM2, AFPTM, ALPHA PHEN, IGG, DYLAN, SMAB, L-K MICRO #### [facility] , #### PT, CMP, KYLE, CBC #### [address] Chloride [Moles/Vol] 102 mmol/L Normal 98-107 [facility] Comment on above: Performed By: #### H EMOCHROM, HAAB, HCBIGM, HCV RX PCR, HAABT, HBSAB, HBCAB, HBSAG, CERULOP, MITOM2, AFPTM, ALPHA PHEN, IGG, DYLAN, SMAB, L-K MICRO #### [facility] , #### PT, CMP, KYLE, CBC #### [address] CO2 [Moles/Vol] 26.0 mmol/L Normal 21.0-31.0 [facility] Comment on above: Performed By: #### H EMOCHROM, HAAB, HCBIGM, HCV RX PCR, HAABT, HBSAB, HBCAB, HBSAG, CERULOP, MITOM2, AFPTM, ALPHA PHEN, IGG, DYLAN, SMAB, L-K MICRO #### [facility] , #### PT, CMP, KYLE, CBC #### [address] Creatinine [Mass/Vol] 1.24 mg/dL Normal 0.70-1.30 [facility] Comment on above: Performed By: #### H EMOCHROM, HAAB, HCBIGM, HCV RX PCR, HAABT, HBSAB, HBCAB, HBSAG, CERULOP, MITOM2, AFPTM, ALPHA PHEN, IGG, DYLAN, SMAB, L-K MICRO #### [facility] , #### PT, CMP, KYLE, CBC #### [address] GFR/1.73 sq M.predicted MDRD (S/P/Bld) [Vol rate/Area] mL/min/{1.73_m2} Normal [facility] Comment on above: Performed By: #### H EMOCHROM, HAAB, HCBIGM, HCV RX PCR, HAABT, HBSAB, HBCAB, HBSAG, CERULOP, MITOM2, AFPTM, ALPHA PHEN, IGG, DYLAN, SMAB, L-K MICRO #### [facility] , #### PT, CMP, KYLE, CBC #### [address] Globulin (S) [Mass/Vol] 3.5 g/dL Normal [facility] Comment on above: Performed By: #### H EMOCHROM, HAAB, HCBIGM, HCV RX PCR, HAABT, HBSAB, HBCAB, HBSAG, CERULOP, MITOM2, AFPTM, ALPHA PHEN, IGG, DYLAN, SMAB, L-K MICRO #### [facility] , #### PT, CMP, KYLE, CBC #### [address] Glucose [Mass/Vol] 114 mg/dL High 70-100 [facility] Comment on above: Result Comment: ADA recommended reference range Performed By: #### H EMOCHROM, HAAB, HCBIGM, HCV RX PCR, HAABT, HBSAB, HBCAB, HBSAG, CERULOP, MITOM2, AFPTM, ALPHA PHEN, IGG, DYLAN, SMAB, L-K MICRO #### [facility] , #### PT, CMP, KYLE, CBC #### [address] Potassium [Moles/Vol] 4.6 mmol/L Normal 3.5-5.1 [facility] Comment on above: Performed By: #### H EMOCHROM, HAAB, HCBIGM, HCV RX PCR, HAABT, HBSAB, HBCAB, HBSAG, CERULOP, MITOM2, AFPTM, ALPHA PHEN, IGG, YDLAN, SMAB, L-K MICRO #### [facility] , #### PT, CMP, KYLE, CBC #### [address] Protein [Mass/Vol] 6.1 g/dL Low 6.4-8.9 [facility] Comment on above: Performed By: #### H EMOCHROM, HAAB, HCBIGM, HCV RX PCR, HAABT, HBSAB, HBCAB, HBSAG, CERULOP, MITOM2, AFPTM, ALPHA PHEN, IGG, DYLAN, SMAB, L-K MICRO #### [facility] , #### PT, CMP, KYLE, CBC #### [address] Sodium [Moles/Vol] 134 mmol/L Low 136-145 [facility] Comment on above: Performed By: #### H EMOCHROM, HAAB, HCBIGM, HCV RX PCR, HAABT, HBSAB, HBCAB, HBSAG, CERULOP, MITOM2, AFPTM, ALPHA PHEN, IGG, DYLAN, SMAB, L-K MICRO #### [facility] , #### PT, CMP, KYLE, CBC #### [facility] [address] Urea nitrogen [Mass/Vol] 32 mg/dL High 7-25 [facility] Comment on above: Performed By: #### H EMOCHROM, HAAB, HCBIGM, HCV RX PCR, HAABT, HBSAB, HBCAB, HBSAG, CERULOP, MITOM2, AFPTM, ALPHA PHEN, IGG, DYLAN, SMAB, L-K MICRO #### [facility] , #### PT, CMP, KYLE, CBC #### [facility] [address] Calcium [Mass/volume] in Ser um or PlasmaOrdered By: Geofrfey Ibrahim on 09-21-2024 Calcium [Mass/Vol] Calcium [Mass/volume ] in Serum or Plasma 8.6-10.3 [facility] Carbon dioxide, total [Moles /volume] in Serum or PlasmaOrdered By: Geoffrey Ibrahim on 09-21-2024 CO2 [Moles/Vol] Carbon dioxide, tota l [Moles/volume] in Serum or Plasma 21.0-31.0 [facility] Chloride [Moles/volume] in S saud or PlasmaOrdered By: Geoffrey Ibrahim on 09-21-2024 Chloride [Moles/Vol] Chloride [Moles/vol ume] in Serum or Plasma 98-107 [facility] Color Auto (U)Ordered By: Claudia Ibrahim on 09-21-2024 Color (U) Color of Urine by Auto Yellow Fi [facility] Creatinine [Mass/volume] in Serum or PlasmaOrdered By: Geoffrey Ibrahim on 09-21-2024 Creatinine [Mass/Vol] Creatinine [Mass/v olume] in Serum or Plasma 0.70-1.30 [facility] Diff and CBCon 09-21-2024 Erythrocyte distribution width (RBC) [Ratio] 15.5 % High 12.0-14.8 [facility] Comment on above: Performed By: #### H EMOCHROM, HAAB, HCBIGM, HCV RX PCR, HAABT, HBSAB, HBCAB, HBSAG, CERULOP, MITOM2, AFPTM, ALPHA PHEN, IGG, DYLAN, SMAB, L-K MICRO #### [facility] , #### PT, CMP, KYLE, CBC #### [facility] [address] Hematocrit (Bld) [Volume fraction] 42.1 % Normal 38.8-50.0 [facility] Comment on above: Performed By: #### H EMOCHROM, HAAB, HCBIGM, HCV RX PCR, HAABT, HBSAB, HBCAB, HBSAG, CERULOP, MITOM2, AFPTM, ALPHA PHEN, IGG, DYALN, SMAB, L-K MICRO #### [facility] , #### PT, CMP, KYLE, CBC #### [address] Hemoglobin (Bld) [Mass/Vol] 14.7 g/dL Normal 13.0-17.0 [facility] Comment on above: Performed By: #### H EMOCHROM, HAAB, HCBIGM, HCV RX PCR, HAABT, HBSAB, HBCAB, HBSAG, CERULOP, MITOM2, AFPTM, ALPHA PHEN, IGG, DYLAN, SMAB, L-K MICRO #### [facility] , #### PT, CMP, KYLE, CBC #### [address] Lymphocytes/100 WBC (Bld) 4 % Low 18-42 [facility] Comment on above: Performed By: #### H EMOCHROM, HAAB, HCBIGM, HCV RX PCR, HAABT, HBSAB, HBCAB, HBSAG, CERULOP, MITOM2, AFPTM, ALPHA PHEN, IGG, DYLAN, SMAB, L-K MICRO #### [facility] , #### PT, CMP, KYLE, CBC #### [address] MCH (RBC) [Entitic mass] 33.4 pg Normal 27.5-35.2 [facility] Comment on above: Performed By: #### H EMOCHROM, HAAB, HCBIGM, HCV RX PCR, HAABT, HBSAB, HBCAB, HBSAG, CERULOP, MITOM2, AFPTM, ALPHA PHEN, IGG, DYLAN, SMAB, L-K MICRO #### [facility] , #### PT, CMP, KYLE, CBC #### [address] MCV (RBC) [Entitic vol] 95.4 fL Normal 83.5-101 [facility] [facility] Comment on above: Performed By: #### H EMOCHROM, HAAB, HCBIGM, HCV RX PCR, HAABT, HBSAB, HBCAB, HBSAG, CERULOP, MITOM2, AFPTM, ALPHA PHEN, IGG, DYLAN, SMAB, L-K MICRO #### [facility] , #### PT, CMP, KYLE, CBC #### [address] Mean Corpuscular HGB Conc 35.0 g/dL Normal 32.5-35.6 [facility] Comment on above: Performed By: #### H EMOCHROM, HAAB, HCBIGM, HCV RX PCR, HAABT, HBSAB, HBCAB, HBSAG, CERULOP, MITOM2, AFPTM, ALPHA PHEN, IGG, DYLAN, SMAB, L-K MICRO #### [facility] , #### PT, CMP, KYLE, CBC #### [address] Monocytes/100 WBC (Bld) 9 % Normal 2-11 [facility] Comment on above: Performed By: #### H EMOCHROM, HAAB, HCBIGM, HCV RX PCR, HAABT, HBSAB, HBCAB, HBSAG, CERULOP, MITOM2, AFPTM, ALPHA PHEN, IGG, DYLAN, SMAB, L-K MICRO #### [facility] , #### PT, CMP, KYLE, CBC #### [address] Platelet Estimate Normal Normal Normal [facility] Comment on above: Performed By: #### H EMOCHROM, HAAB, HCBIGM, HCV RX PCR, HAABT, HBSAB, HBCAB, HBSAG, CERULOP, MITOM2, AFPTM, ALPHA PHEN, IGG, DYLAN, SMAB, L-K MICRO #### [facility] , #### PT, CMP, KYLE, CBC #### [address] Platelet mean volume (Bld) [Entitic vol] 7.8 fL Normal 6.6-10.1 [facility] Comment on above: Performed By: #### H EMOCHROM, HAAB, HCBIGM, HCV RX PCR, HAABT, HBSAB, HBCAB, HBSAG, CERULOP, MITOM2, AFPTM, ALPHA PHEN, IGG, DYLAN, SMAB, L-K MICRO #### [facility] , #### PT, CMP, KYLE, CBC #### [address] Platelet Morphology Normal Normal Normal [facility] Comment on above: Result Comment: PERF ORMED BY: [place] [address] PATHOLOGIST [employer] LEANDRA WALSH M.D. Performed By: #### H EMOCHROM, HAAB, HCBIGM, HCV RX PCR, HAABT, HBSAB, HBCAB, HBSAG, CERULOP, MITOM2, AFPTM, ALPHA PHEN, IGG, DYLAN, SMAB, L-K MICRO #### [facility] , #### PT, CMP, KYLE, CBC #### [address] Platelets (Bld) [#/Vol] 188 10*3/uL Normal 150-450 [facility] Comment on above: Performed By: #### H EMOCHROM, HAAB, HCBIGM, HCV RX PCR, HAABT, HBSAB, HBCAB, HBSAG, CERULOP, MITOM2, AFPTM, ALPHA PHEN, IGG, DYLAN, SMAB, L-K MICRO #### [facility] , #### PT, CMP, KYLE, CBC #### [address] RBC (Bld) [#/Vol] 4.42 10*6/uL Normal 3.90-5.60 [facility] Comment on above: Performed By: #### H EMOCHROM, HAAB, HCBIGM, HCV RX PCR, HAABT, HBSAB, HBCAB, HBSAG, CERULOP, MITOM2, AFPTM, ALPHA PHEN, IGG, DYLAN, SMAB, L-K MICRO #### [facility] , #### PT, CMP, KYLE, CBC #### [address] RBC morphology finding Nom (Bld) Normal Normal Normal [facility] Comment on above: Performed By: #### H EMOCHROM, HAAB, HCBIGM, HCV RX PCR, HAABT, HBSAB, HBCAB, HBSAG, CERULOP, MITOM2, AFPTM, ALPHA PHEN, IGG, DYLAN, SMAB, L-K MICRO #### [facility] , #### PT, CMP, KYLE, CBC #### [address] Segmented neutrophils/100 WBC (Bld) 87 % High 50-70 [facility] Comment on above: Performed By: #### H EMOCHROM, HAAB, HCBIGM, HCV RX PCR, HAABT, HBSAB, HBCAB, HBSAG, CERULOP, MITOM2, AFPTM, ALPHA PHEN, IGG, DYLAN, SMAB, L-K MICRO #### [facility] , #### PT, CMP, KYLE, CBC #### [address] WBC (Bld) [#/Vol] 5.4 10*3/uL Normal 4.1-10.5 [facility] Comment on above: Performed By: #### H EMOCHROM, HAAB, HCBIGM, HCV RX PCR, HAABT, HBSAB, HBCAB, HBSAG, CERULOP, MITOM2, AFPTM, ALPHA PHEN, IGG, DYLAN, SMAB, L-K MICRO #### [facility] , #### PT, CMP, KYLE, CBC #### [address] EBS A1C with Estimated [employer] hernándezjocelyn 09-21-2024 Glucose [Mass/Vol] 134 mg/dL Normal [facility] Comment on above: Result Comment: PERF ORMED BY: [place] [address] PATHOLOGIST [employer] LEANDRA WALSH M.D. Performed By: #### H EMOCHROM, HAAB, HCBIGM, HCV RX PCR, HAABT, HBSAB, HBCAB, HBSAG, CERULOP, MITOM2, AFPTM, ALPHA PHEN, IGG, YDLAN, SMAB, L-K MICRO #### [facility] , #### PT, CMP, KYLE, CBC #### [address] ECG 12 lead ECGon 09-21-2024 ECG 12 lead ECG [facility] [place] [address] Electrocardiograph Report Signed Patient: Gerson Penn MR#: [id number] : 1955 Acct:[id number] Age/Sex: 68 / M ADM Date: 09/21/24 Loc: PS Room: Type: [facility] Attending Dr: Geoffrey Ibrahim DO Ordering [...] When compared with ECG of 04-Oct-2012 08:47, [place] interval has decreased Confirmed by Taj Palm ([id number]) on 09/21/2024 8:57:00 AM Referred By: Electronically Signed By: Taj Palm Transcribed By: MUS Signed By Taj Palm MD 09/21/24 0884 Normal [facility] Eosinophils Auto (Bld) [#/Vo l]Ordered By: Geoffrey Ibrahim on 09-21-2024 Eosinophils (Bld) [#/Vol] Automated eosinophil count [facility] Eosinophils/100 WBC Auto (Bl d)Ordered By: Geoffrey Ibrahim on 09-21-2024 Eosinophils/100 WBC (Bld) Automated eosinophil % [facility] Erythrocyte distribution wid th Auto (RBC) [Ratio]Ordered By: Geoffrey Ibrahim on 09-21-2024 Erythrocyte distribution width (RBC) [Ratio] Erythrocyte distribution width [Ratio] by Automated count High 12.0-14.8 [facility] Erythrocyte morphology findi ng [Identifier] in BloodOrdered By: Geoffrey Ibrahim on 09-21-2024 RBC morphology finding Nom (Bld) RBC morphology Normal [facility] Globulin Calc (S) [Mass/Vol] Ordered By: Geoffrey Ibrahim on 09-21-2024 Globulin (S) [Mass/Vol] Serum globulin measurement by calculation (mass/volume) [facility] Glucose [Mass/volume] in Ser um or PlasmaOrdered By: Geoffrey Ibrahim on 09-21-2024 Glucose [Mass/Vol] Glucose [Mass/volume ] in Serum or Plasma High 70-100 [facility] Comment on above: ADA recommended refe rence range Glucose [Mass/volume] in Uri ne by Test stripOrdered By: Geoffrey Ibrahim on 09-21-2024 Glucose Test strip (U) [Mass/Vol] Glucose [Mass/volume] in Urine by Test strip Normal [facility] Hematocrit Auto (Bld) [Volum e fraction]Ordered By: Geoffrey Ibrahim on 09-21-2024 Hematocrit (Bld) [Volume fraction] Hematocrit [Volume Fraction] of Blood by Automated count 38.8-50.0 [facility] Hemoglobin A1c measurementOr dered By: Geoffrey Ibrahim on 09-21-2024 HbA1c (Bld) [Mass fraction] 6.3 % High 4.3-5.6 [facility] Comment on above: Increased risk for [...] , #### PT, CMP, KYLE, CBC #### [facility] [address] [place] [address] Hemoglobin Test strip Ql (U) Ordered By: Geoffrey Ibrahim on 09-21-2024 Hemoglobin Ql (U) Hemoglobin [Presence ] in Urine by Test strip Negative [facility] Hemoglobin [Mass/volume] in BloodOrdered By: Geoffrey Ibrahim on 09-21-2024 Hemoglobin (Bld) [Mass/Vol] Hemoglobin [Mass/volume] in Blood 13.0-17.0 [facility] Ketones Test strip Ql (U)Ord ered By: Geoffrey Ibrahim on 09-21-2024 Ketones Ql (U) Ketones [Presence] i n Urine by Test strip Negative [facility] Leukocyte esterase [Presence ] in Urine by Test stripOrdered By: Geoffrey Ibrahim on 09-21-2024 Leukocyte esterase Test strip Ql (U) Leukocyte esterase [Presence] in Urine by Test strip Negative [facility] Leukocytes [#/volume] correc adrián for nucleated erythrocytes in Blood by Automated counOrdered By: Geoffrey Ibrahim on 09-21-2024 WBC corrected for nucl RBC Auto (Bld) [#/Vol] Leukocytes [#/volume] corrected for nucleated erythrocytes in Blood by Automated coun 4.1-10.5 [facility] Lymphocytes Auto (Bld) [#/Vo l]Ordered By: Geoffrey Ibrahim on 09-21-2024 Lymphocytes (Bld) [#/Vol] Lymphocytes [#/volume] in Blood by Automated count [facility] Lymphocytes/100 WBC Auto (Bl d)Ordered By: Geoffrey Ibrahim on 09-21-2024 Lymphocytes/100 WBC (Bld) Lymphocytes/100 leukocytes in Blood by Automated count [facility] Lymphocytes/100 WBC Manual c nt (Bld)Ordered By: Geoffrey Ibrahim on 09-21-2024 Lymphocytes/100 WBC (Bld) Lymphocytes/100 leukocytes in Blood by Manual count Low 18-42 [facility] MCH Auto (RBC) [Entitic mass ]Ordered By: Geoffrey Ibrahim on 09-21-2024 MCH (RBC) [Entitic mass] MCH [Entitic mass] by Automated count 27.5-35.2 [facility] MCHC Auto (RBC) [Mass/Vol]Or dered By: Geoffrey Ibrahim on 09-21-2024 MCHC (RBC) [Mass/Vol] MCHC [Mass/volume] by Automated count 32.5-35.6 [facility] MCV Auto (RBC) [Entitic vol] Ordered By: Geoffrey Ibrahim on 09-21-2024 MCV (RBC) [Entitic vol] MCV [Entitic volume] by Automated count 83.5-101 [facility] Monocytes Auto (Bld) [#/Vol] Ordered By: Geoffrey Ibrahim on 09-21-2024 Monocytes (Bld) [#/Vol] Automated blood monocyte count [facility] Monocytes/100 WBC Auto (Bld) Ordered By: Geoffrey Ibrahim on 09-21-2024 Monocytes/100 WBC (Bld) Automated monocyte % [facility] Monocytes/100 WBC Manual cnt (Bld)Ordered By: Geoffrey Ibrahim on 09-21-2024 Monocytes/100 WBC (Bld) Monocytes/100 leukocytes in Blood by Manual count 2-11 [facility] Neutrophils Auto (Bld) [#/Vo l]Ordered By: Geoffrey Ibrahim on 09-21-2024 Neutrophils (Bld) [#/Vol] Neutrophils [#/volume] in Blood by Automated count [facility] Neutrophils/100 WBC Auto (Bl d)Ordered By: Geoffrey Ibrahim on 09-21-2024 Neutrophils/100 WBC (Bld) Automated neutrophil % [facility] Nitrite Test strip Ql (U)Ord ered By: Geoffrey Ibrahim on 09-21-2024 Nitrite Ql (U) Nitrite [Presence] i n Urine by Test strip Negative [facility] No Panel InformationOrdered By: Geoffrey Ibrahim on 09-21-2024 Estimated GFR (CKD-EPI) > 60.0 mL/Min [facility] Creatinine Clearance (Chem N/A [facility] Nucleated erythrocytes [Pres ence] in Blood by Automated countOrdered By: Geoffrey Ibrahim on 09-21-2024 Nucleated RBC Auto Ql (Bld) Nucleated erythrocytes [Presence] in Blood by Automated count [facility] Platelet adequacy [Presence] in Blood by Light microscopyOrdered By: Geoffrey Ibrahim on 09-21-2024 Platelets LM Ql (Bld) Platelet adequacy [Presence] in Blood by Light microscopy Normal [facility] Platelet mean volume Auto (B ld) [Entitic vol]Ordered By: Geoffrey Ibrahim on 09-21-2024 Platelet mean volume (Bld) [Entitic vol] Platelet mean volume [Entitic volume] in Blood by Automated count 6.6-10.1 [facility] Platelet morphology finding [Identifier] in BloodOrdered By: Geoffrey Ibrahim on 09-21-2024 Platelet morphology finding Nom (Bld) Platelet morphology finding [Identifier] in Blood Normal [facility] Platelets Auto (Bld) [#/Vol] Ordered By: Geoffrey Ibrahim on 09-21-2024 Platelets (Bld) [#/Vol] Platelets [#/volume] in Blood by Automated count 150-450 [facility] Potassium [Moles/volume] in Serum or PlasmaOrdered By: Geoffrey Ibrahim on 09-21-2024 Potassium [Moles/Vol] Potassium [Moles/v olume] in Serum or Plasma 3.5-5.1 [facility] Protein Test strip (U) [Mass /Vol]Ordered By: Geoffrey Ibrahim on 09-21-2024 Protein (U) [Mass/Vol] Protein [Mass/vol ume] in Urine by Test strip Negative [facility] Protein [Mass/volume] in Ser um or PlasmaOrdered By: Geoffrey Ibrahim on 09-21-2024 Protein [Mass/Vol] Protein [Mass/volume ] in Serum or Plasma Low 6.4-8.9 [facility] RBC Auto (Bld) [#/Vol]Ordere d By: Geoffrey Ibrahim on 09-21-2024 RBC (Bld) [#/Vol] Erythrocytes [#/volu me] in Blood by Automated count 3.90-5.60 [facility] Segmented neutrophils/100 WB C Manual cnt (Bld)Ordered By: Geoffrey Ibrahim on 09-21-2024 Segmented neutrophils/100 WBC (Bld) Manual blood segmented neutrophils/100 leukocytes High 50-70 [facility] Serum or plasma albumin/glob ulin mass ratioOrdered By: Geoffrey Ibrahim on 09-21-2024 Albumin/Globulin [Mass ratio] Serum or plasma albumin/globulin mass ratio [facility] Serum or plasma anion gap de terminationOrdered By: Geoffrey Ibrahim on 09-21-2024 Anion gap [Moles/Vol] Serum or plasma an ion gap determination 6.0-15.0 [facility] Sodium [Moles/volume] in Ser um or PlasmaOrdered By: Geoffrey Ibrahim on 09-21-2024 Sodium [Moles/Vol] Sodium [Moles/volume ] in Serum or Plasma Low 136-145 [facility] Specific gravity Test strip (U) [Rel density]Ordered By: Geoffrey Ibrahim on 09-21-2024 Specific gravity (U) [Rel density] Specific gravity of Urine by Test strip 1.001-1.03 0 [facility] Urea nitrogen [Mass/volume] in Serum or PlasmaOrdered By: Geoffrey Ibrahim on 09-21-2024 Urea nitrogen [Mass/Vol] Urea nitrogen [Mass/volume] in Serum or Plasma High 7-25 [facility] Urinalysison 09-21-2024 Appearance (U) Clear Normal Clear [facility] Comment on above: Order Comment: Name Collection Type:: Clean-Voided Midstream Performed By: #### H EMOCHROM, HAAB, HCBIGM, HCV RX PCR, HAABT, HBSAB, HBCAB, HBSAG, CERULOP, MITOM2, AFPTM, ALPHA PHEN, IGG, DYLAN, SMAB, L-K MICRO #### [facility] , #### PT, CMP, KYLE, CBC #### [address] Bilirubin,Urine Negative Normal Negative [facility] Comment on above: Order Comment: Name Collection Type:: Clean-Voided Midstream Performed By: #### H EMOCHROM, HAAB, HCBIGM, HCV RX PCR, HAABT, HBSAB, HBCAB, HBSAG, CERULOP, MITOM2, AFPTM, ALPHA PHEN, IGG, DYLAN, SMAB, L-K MICRO #### [facility] , #### PT, CMP, KYLE, CBC #### [address] Color (U) Yellow Normal Yellow [facility] Comment on above: Order Comment: Name Collection Type:: Clean-Voided Midstream Performed By: #### H EMOCHROM, HAAB, HCBIGM, HCV RX PCR, HAABT, HBSAB, HBCAB, HBSAG, CERULOP, MITOM2, AFPTM, ALPHA PHEN, IGG, DYLAN, SMAB, L-K MICRO #### [facility] , #### PT, CMP, KYLE, CBC #### [address] Glucose Ql (U) Normal Normal Normal [facility] Comment on above: Order Comment: Name Collection Type:: Clean-Voided Midstream Performed By: #### H EMOCHROM, HAAB, HCBIGM, HCV RX PCR, HAABT, HBSAB, HBCAB, HBSAG, CERULOP, MITOM2, AFPTM, ALPHA PHEN, IGG, DYLAN, SMAB, L-K MICRO #### [facility] , #### PT, CMP, KYLE, CBC #### [address] Ketones Ql (U) Negative Normal Negative [facility] Comment on above: Order Comment: Name Collection Type:: Clean-Voided Midstream Performed By: #### H EMOCHROM, HAAB, HCBIGM, HCV RX PCR, HAABT, HBSAB, HBCAB, HBSAG, CERULOP, MITOM2, AFPTM, ALPHA PHEN, IGG, DYLAN, SMAB, L-K MICRO #### [facility] , #### PT, CMP, KYLE, CBC #### [address] Leukocyte esterase Test strip Ql (U) Negative Normal Negative [facility] Comment on above: Order Comment: Name Collection Type:: Clean-Voided Midstream Performed By: #### H EMOCHROM, HAAB, HCBIGM, HCV RX PCR, HAABT, HBSAB, HBCAB, HBSAG, CERULOP, MITOM2, AFPTM, ALPHA PHEN, IGG, DYLAN, SMAB, L-K MICRO #### [facility] , #### PT, CMP, KYLE, CBC #### [address] Nitrite,Urine Negative Normal Negative [facility] Comment on above: Order Comment: Name Collection Type:: Clean-Voided Midstream Performed By: #### H EMOCHROM, HAAB, HCBIGM, HCV RX PCR, HAABT, HBSAB, HBCAB, HBSAG, CERULOP, MITOM2, AFPTM, ALPHA PHEN, IGG, DYLAN, SMAB, L-K MICRO #### [facility] , #### PT, CMP, KYLE, CBC #### [address] Occult Blood,Urine Negative Normal Negative [facility] Comment on above: Order Comment: Name Collection Type:: Clean-Voided Midstream Result Comment: PERF ORMED BY: [place] [address] PATHOLOGIST [employer] LEANDRA WALSH M.D. Performed By: #### H EMOCHROM, HAAB, HCBIGM, HCV RX PCR, HAABT, HBSAB, HBCAB, HBSAG, CERULOP, MITOM2, AFPTM, ALPHA PHEN, IGG, DYLAN, SMAB, L-K MICRO #### [facility] , #### PT, CMP, KYLE, CBC #### [address] pH (U) 6.0 [pH] Normal 5.0-9.0 [facility] Comment on above: Order Comment: Name Collection Type:: Clean-Voided Midstream Performed By: #### H EMOCHROM, HAAB, HCBIGM, HCV RX PCR, HAABT, HBSAB, HBCAB, HBSAG, CERULOP, MITOM2, AFPTM, ALPHA PHEN, IGG, DYLAN, SMAB, L-K MICRO #### [facility] , #### PT, CMP, KYLE, CBC #### [address] Protein,Urine Negative Normal Negative [facility] Comment on above: Order Comment: Name Collection Type:: Clean-Voided Midstream Performed By: #### H EMOCHROM, HAAB, HCBIGM, HCV RX PCR, HAABT, HBSAB, HBCAB, HBSAG, CERULOP, MITOM2, AFPTM, ALPHA PHEN, IGG, DYLAN, SMAB, L-K MICRO #### [facility] , #### PT, CMP, KYLE, CBC #### [address] Specificy [place],Urine 1.014 Normal 1.001-1.03 0 [facility] Comment on above: Order Comment: Name Collection Type:: Clean-Voided Midstream Performed By: #### H EMOCHROM, HAAB, HCBIGM, HCV RX PCR, HAABT, HBSAB, HBCAB, HBSAG, CERULOP, MITOM2, AFPTM, ALPHA PHEN, IGG, DYLAN, SMAB, L-K MICRO #### [facility] , #### PT, CMP, KYLE, CBC #### [facility] [address] Urobilinogen,Urine Normal Normal Normal [facility] Comment on above: Order Comment: Name Collection Type:: Clean-Voided Midstream Performed By: #### H EMOCHROM, HAAB, HCBIGM, HCV RX PCR, HAABT, HBSAB, HBCAB, HBSAG, CERULOP, MITOM2, AFPTM, ALPHA PHEN, IGG, DYLAN, SMAB, L-K MICRO #### [facility] , #### PT, CMP, KYLE, CBC #### [facility] [address] Urobilinogen Test strip (U) [Mass/Vol]Ordered By: Geoffrey Ibrahim on 09-21-2024 Urobilinogen (U) [Mass/Vol] Urobilinogen [Mass/volume] in Urine by Test strip Normal [facility] WBC Auto (Bld) [#/Vol]Ordere d By: Geoffrey Ibrahim on 09-21-2024 WBC (Bld) [#/Vol] Leukocytes [#/volume ] in Blood by Automated count 4.1-10.5 [facility] pH Test strip (U)Ordered By: Geoffrey Ibrahim on 09-21-2024 pH (U) pH of Urine by Test strip 5.0-9.0 [facility] BASIC METABOLIC PANELon 10-1 Anion gap [Moles/Vol] 9 mmol/L Normal 7-20 [facility] Comment on above: Performed By: #### L [id number] ####[facility] ([facility])[address] [place] [address] Calcium [Mass/Vol] 6.9 mg/dL Low 8.6-10.3 [facility] Comment on above: Performed By: #### L [id number] ####[facility] ([facility])[address] [place] [address] Chloride [Moles/Vol] 110 mmol/L High 98-107 [facility] Comment on above: Performed By: #### L [id number] ####[facility] ([facility])[address] [place] [address] CO2 [Moles/Vol] 22 mmol/L Normal 21-31 [facility] Comment on above: Performed By: #### L [id number] ####[facility] [place] [address] Creatinine [Mass/Vol] 1.04 mg/dL Normal 0.70-1.30 [facility] Comment on above: Performed By: #### L [id number] ####[facility] ([facility])[address] [place] [address] GLOMERULAR FILTRATION RATE ML/MIN/1.73 SQ M.PREDICTED 79.2 mL/min/1.73m*2 Normal >60.0 [facility] Comment on above: Result Comment: [facility]???s estimated glomerular filtration rate (eGFR) will [...] of individuals. Performed By: #### L [id number] ####[facility] ([facility] [place] [address] Glucose [Mass/Vol] 86 mg/dL Normal 70-100 [facility] Comment on above: Performed By: #### L [id number] ####[facility] ([facility] [place] [address] Potassium [Moles/Vol] 3.9 mmol/L Normal 3.5-5.1 [facility] Comment on above: Performed By: #### L [id number] ####[facility] ([facility] [place] [address] Sodium [Moles/Vol] 137 mmol/L Normal 136-145 [facility] Comment on above: Performed By: #### L [id number] ####[facility] ([facility])[address] [place] [address] Urea nitrogen [Mass/Vol] 32 mg/dL High 7-25 [facility] Comment on above: Performed By: #### L [id number] ####[facility] ([facility])[address] [place] [address] UREA NITROGEN/CREATININE (MASS RATIO) IN SER/PLAS 30.8 Normal [facility] Comment on above: Performed By: #### L [id number] ####[facility] ([facility])[address] [place] [address] HPon 05-14-2024 HP ------- Attestation signed by [...] possible PCI. Joyce Rodrigues MD PGY-7 Interventional Cigar Head Puncher [facility] NURSNOTEon 05-14-2024 NURSNOTE Patient okay to disc harge at [address] Otero. [facility] NURSNOTE RN educated pt on d/ c instructions. This included: site care, limited physical activity, resume normal diet, future appointments, medications, and moderate sedation instructions. RN educated pt on when to notify physician and when to go to the hospital. RN encouraged pt to voice any questions or concerns, and answered any questions or concerns if pt verbalized. [facility] NURSNOTE Dr. Aparicio notifi ed of normal creatnine result. states pt ok for early discharge at 2:30 and no need to continue IVF. [facility] Orders Onlyon 05-04-2024 Orders Only [id number] Chencho Penn 1955 Date Provider Department Center 05/04/2024 ERMA JUNE [facility] Family History Problem Relation Age of Onset Colon cancer Mother Coronary artery disease Father Cancer Brother Family Status - Relation Status Age at Mother Father Brother [facility] CREATININE, SERUMon 05-01-20 24 Creatinine [Mass/Vol] 1.45 mg/dL High 0.70-1.30 [facility] Comment on above: Performed By: #### L [id number] ####[facility] ([facility])[address] [place] [address] GLOMERULAR FILTRATION RATE ML/MIN/1.73 SQ M.PREDICTED 53.1 mL/min/1.73m*2 Low >60.0 [facility] Comment on above: Result Comment: [facility]???s estimated glomerular filtration rate (eGFR) will [...] of individuals. Performed By: #### L [id number] ####[facility] ([facility])[address] [place] [address] CTA HEART CORONARY W IV CONT Luh [...] Condon MD. Not Vldtd Invalid Interpretation Code [facility] Labon 05-01-2024 Lab [id number] Chencho Penn 1955 M Date Provider Department [place] 05/01/2024 2241-[facility] RESOURCE [facility] [place] [facility] Family History Problem Relation Age of Onset Colon cancer Mother Coronary artery disease Father Cancer Brother Family Status - Relation Status Age at Mother Father Brother Normal [facility] 04-29-2024 [facility] Cardiology - [facility] Gerson Goodwinell is a 68 y.o. 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 Normal [facility] Office Visiton 04-29-2024 Follow-up visit [id number] Chencho Penn 1955 M Date Provider Department Center 04/29/2024 [facility] Family History Problem Relation Age of Onset Colon cancer Mother Coronary artery disease Father Cancer Brother Family Status - Relation Status Age at Mother Father Brother Level of Service:84010 [place] OFFICE/OP CONSLTJ NEW/EST PT MOD MDM 40 MINUTES [facility] 04-18-2023 Consent [id number]#1.00CD:127 [facility] In office Testingon 04-18-20 23 In office Testing [id number]#1.00CD:127 [facility] Registrationon 04-18-2023 Registration [id number]#1.00CD:127 [facility] In office Testingon 03-15-20 23 In office Testing [id number]#1.00CD:127 [facility] [place] 03-08-2023 Consent [id number]#1.00CD:127 [facility] Registrationon 03-08-2023 Registration [id number]#1.00CD:127 [facility] In office Testingon 02-06-20 23 In office Testing [id number]#1.00CD:127 [facility] [place] 02-04-2023 Consent [id number]#1.00CD:127 [facility] Registrationon 02-04-2023 Registration [id number]#1.00CD:127 [facility] Patient Correspondenceon Patient Correspondence [id number]#1.00CD:127 [facility] Physician Referralon 023 Physician Referral [id number]#1.00CD:127 [facility] Physician Referral [id number]#1.00CD:127 [facility] [place] 11-09-2022 Consent [id number]#1.00CD:127 [facility] In office Testingon 11-10-19 23 In office Testing [id number]#1.00CD:127 [facility] Registrationon 11-09-2022 Registration [id number]#1.00CD:127 [facility] [place] 07-27-2022 Consent [id number]#1.00CD:127 [facility] Registrationon 07-27-2022 Registration [id number]#1.00CD:127 [facility] [place] 07-09-2022 Consent [id number]#1.00CD:127 [facility] In office Testingon 07-09-20 22 In office Testing [id number]#1.00CD:127 [facility] Registrationon 07-09-2022 Registration [id number]#1.00CD:127 [facility] In office Testingon 12-09-20 22 In office Testing [id number]#1.00CD:127 Normal [facility] GLYCOHEMOGLOBIN A1Con 2021 ADA RECOMMENDATION SEE BELOW Normal [facility] Comment on above: Result Comment: ADA RECOMMENDED LIMIT 4.0 - 6.0 ADA THERAPEUTIC TARGET < 7.0 ACTION SUGGESTED > 7.0 Performed By: #### A 1C #### [facility] [address] [place] [address] Dr. Sandor Coffman Glucose [Mass/Vol] 140 mg/dL Normal [facility] Comment on above: Performed By: #### A 1C #### [facility] [address] [place] [address] Dr. Sandor Coffman HbA1c (Bld) [Mass fraction] 6.5 % Critically high 4.5-6.2 [facility] Comment on above: Performed By: #### A 1C #### [facility] [address] [place] [address] Dr. Sandor Coffman Registrationon 05-01-2022 Registration [id number]#1.00CD:127 Normal [facility] [place] 04-27-2022 Consent [id number]#1.00CD:127 Normal [facility] HIP LEFT 1 OR 2 VWS WITH PEL VISon 08-27-2019 HIP LEFT 1 OR 2 VWS WITH PELVIS [facility] Department of Radiology [address] [place] [phone] Patient Name: GERSON PENN : 1955 [...] above. Electronically signed: David Sanford. Transcribed by: [email or web address], User Resident: Electronically Signed by: DAVID SANFORD @ 08/27/2019 01:52 PM Normal [facility] Comment on above: Order Comment: , Alex ws (X-RAY, HIP): Radiologic Protocol , Views (X-RAY, HIP): Radiologic Protocol , , , Ordering Provider - LIZET LOVELACE MD , HIP LEFT 1 OR 2 VWS WITH PEL VISon 06-18-2019 HIP LEFT 1 OR 2 VWS WITH PELVIS [facility] Department of Radiology [address] [place] [phone] Patient Name: GERSON PENN : 1955 [...] loosening Electronically signed by:Carlos Cameron. Transcribed by: [email or web address], User Resident: Electronically Signed by: CARLOS CAMERON @ 06/18/2019 02:11 PM Normal [facility] Comment on above: Order Comment: , Heidie ws (X-RAY, HIP): Radiologic Protocol , Views (X-RAY, HIP): Radiologic Protocol , , , Ordering Provider - LIZET LOVELACE MD , Vital Signs Date Time Vital Sign Value Performing Clinician Mauliki sonal 11-05-2024 10:19-0400 Diastolic blood pressure 62 mm[Hg] Peggy Muñoz MD Work Phone: [facility] 11-05-2024 10:19-0400 Heart rate 73 /min Peggy Muñoz MD Work Phone: [facility] 11-05-2024 10:19-0400 Systolic blood pressure 141 mm[Hg] Peggy Muñoz MD Work Phone: [facility] 09-22-2024 16:40-0500 Diastolic blood pressure 68 mm[Hg] Peggy Muñoz MD Work Phone: [facility] 09-22-2024 16:40-0500 Heart rate 73 /min Peggy Muñoz MD Work Phone: [facility] 09-22-2024 16:40-0500 Respiratory rate 16 /min Peggy Muñoz MD Work Phone: [facility] 09-22-2024 16:40-0500 SaO2% (BldA) [Mass fraction] 92 % Peggy Muñoz MD Work Phone: [facility] 09-22-2024 16:40-0500 Systolic blood pressure 145 mm[Hg] Peggy Muñoz MD Work Phone: [facility] 09-22-2024 15:55-0500 Body temperature 97.4 [degF] Peggy Muñoz MD Work Phone: [facility] 09-22-2024 15:25-0500 Inhaled oxygen flow rate 6 L/min Peggy Muñoz MD Work Phone: [facility] 09-22-2024 12:02-0500 Body height 173.99 cm Peggy Muñoz MD Work Phone: [facility] 09-22-2024 12:02-0500 Body weight 140.7 kg Peggy Muñoz MD Work Phone: [facility] 09-18-2024 08:08-0500 Body height 180.34 cm [facility] 09-18-2024 08:08-0500 Body mass index (BMI) [Ratio] 43.1 kg/m2 [facility] 09-18-2024 08:08-0500 Body weight 140.21 kg [facility] Encounters Encounter Date Encounter Type Care Provider Facility Start: 12-30-2024 ambulatory [facility] Start: 2024 End: 2024 ambulatory [facility] Start: 12-18-2024 End: 12-18-2024 ambulatory [facility] Start: 12-18-2024 End: 12-18-2024 ambulatory [facility] Start: 11-26-2024 End: 11-26-2024 Patient encounter procedure Peggy Muñoz MD Work Phone: [facility] [place] Work Phone: Start: 11-26-2024 End: 11-26-2024 ambulatory Peggy Muñoz MD Work Phone: [facility] Work Phone: Start: 11-18-2024 End: 11-18-2024 ambulatory Peggy Muñoz MD Work Phone: [facility] Work Phone: Start: 11-18-2024 End: 11-18-2024 Departed Referred Peggy Muñoz MD Work Phone: [facility]-LAB Path [facility] Start: 11-05-2024 End: 11-05-2024 Patient encounter procedure Peggy Muñoz MD Work Phone: [facility] [place] Work Phone: Start: 11-05-2024 End: 11-05-2024 ambulatory Peggy Muñoz MD Work Phone: [facility] Work Phone: Start: 11-05-2024 End: 11-05-2024 ambulatory Peggy Muñoz MD Work Phone: [facility] Work Phone: Start: 11-05-2024 End: 11-05-2024 Patient encounter procedure Peggy Muñoz MD Work Phone: [facility] Work Phone: Start: 11-02-2024 End: 11-02-2024 ambulatory Peggy Muñoz MD Work Phone: [facility] Work Phone: Start: 11-02-2024 End: 11-02-2024 Patient encounter procedure Peggy Muñoz MD Work Phone: [facility] Work Phone: Start: 11-02-2024 End: 11-02-2024 Patient encounter procedure Peggy Muñoz MD Work Phone: [facility] Start: 11-02-2024 End: 11-02-2024 ambulatory Peggy Muñoz MD Work Phone: [facility] Work Phone: Start: 10-20-2024 End: 10-20-2024 ambulatory Peggy Muñoz MD Work Phone: [facility] Work Phone: Start: 10-20-2024 End: 10-20-2024 Departed Referred Peggy Muñoz MD Work Phone: [facility] Start: 10-07-2024 End: 10-07-2024 ambulatory Peggy Muñoz MD Work Phone: [facility] Work Phone: Start: 10-07-2024 End: 10-07-2024 Patient encounter procedure Pgegy Muñoz MD Work Phone: [facility] Work Phone: Start: 09-22-2024 End: 09-22-2024 Admission to same day surgery center Peggy Muñoz MD Work Phone: [facility]gery [facility] [place] Start: 09-22-2024 End: 09-22-2024 ambulatory Peggy Muñoz MD Work Phone: [facility] Work Phone: Start: 09-22-2024 Non-patient / Non-visit Vi Muñoz MD Work Phone: [facility] Work Phone: Start: 09-21-2024 End: 09-21-2024 Patient encounter procedure Peggy Muñoz MD Work Phone: [facility]-Pre-Surgical Testing Work Phone: Start: 09-21-2024 End: 09-21-2024 ambulatory Peggy Muñoz MD Work Phone: [facility] Work Phone: Start: 09-21-2024 Encounter for preprocedural laboratory examination [facility] Start: 09-18-2024 End: 09-18-2024 ambulatory [facility] Work Phone: Start: 09-18-2024 End: 09-18-2024 Patient encounter procedure [facility] Work Phone: Start: 05-14-2024 End: 05-14-2024 ambulatory [facility] Start: 05-01-2024 Encounter for other preprocedural examination [facility] Start: 05-01-2024 End: 05-01-2024 ambulatory [facility] Start: 04-29-2024 End: 04-29-2024 ambulatory [facility] Start: 04-18-2023 End: 04-19-2023 ambulatory [...] Facility:[facility] Start: 06-15-2022 End: 06-16-2022 ambulatory [facility] Humphreys [facility] Start: [...] identified in Urine by Culture Urine Culture [facility] Start: 11-18-2024 Urine culture [facility] Start: 11-05-2024 Actin smooth muscle IgG Ab [Units/volume] in Serum [facility] Start: 11-05-2024 Qnitv-5-eacikspdozi. tumor marker [Mass/volume] in Serum or Plasma [facility] Start: 11-05-2024 Ceruloplasmin [Mass/ volume] in Serum or Plasma [facility] Start: 11-05-2024 Hepatitis A virus Ab [Presence] in Serum by Immunoassay [facility] Start: 11-05-2024 Hepatitis A virus an tibody, IgM type [facility] Start: 11-05-2024 Hepatitis B core ant ibody measurement [facility] Start: 11-05-2024 Hepatitis B core ant ibody measurement, IgM type [facility] Start: 11-05-2024 Hepatitis B virus garcia rface Ab [Presence] in Serum [facility] Start: 11-05-2024 IgG [Mass/volume] in Serum or Plasma [facility] Start: 11-05-2024 Lipoprotein a [Moles/volume] in Serum or Plasma [facility] Start: 11-05-2024 Mitochondria M2 IgG Ab [Units/volume] in Serum [facility] Start: 11-05-2024 [facility] Start: 11-02-2024 Plain X-ray of left elbow XR elbow L T 2V [facility] Start: 11-02-2024 XR Elbow - left 2 Views [facility] Start: 10-20-2024 Urine culture [facility] Start: 10-20-2024 Bacteria identified in Urine by Culture Urine Culture [facility] Start: 10-07-2024 Plain X-ray of left elbow XR elbow L T 2V [facility] Start: 10-07-2024 XR Elbow - left 2 Views [facility] Start: 09-22-2024 [facility] Start: 09-22-2024 [facility] Start: 09-22-2024 Plain X-ray of left elbow XR elbow L T min 3V* [facility] Start: 09-22-2024 XR Elbow - left GE 3 Views [facility] Actin smooth muscle IgG Ab [Units/volume] in Serum [facility] Alpha 1 antitrypsin [Mass/volume] in Serum or Plasma [facility] Alpha 1 antitrypsin [Mass/volume] in Serum or Plasma [facility] Alpha 1 antitrypsin phenotyping [Identifier] in Serum or Plasma by Immunofixation [facility] Rglhi-1-nuciokmudfl. tumor marker [Mass/volume] in Serum or Plasma [facility] Ceruloplasmin [Mass/ volume] in Serum or Plasma [facility] Comprehensive metabo lic 2000 panel - Serum or Plasma [facility] Hepatitis A virus Ab [Presence] in Serum by Immunoassay [facility] Hepatitis A virus an tibody, IgM type [facility] Hepatitis B core ant ibody measurement [facility] Hepatitis B core ant ibody measurement, IgM type [facility] Hepatitis B virus garcia rface Ab [Presence] in Serum [facility] Hepatitis B virus garcia rface Ag [Presence] in Serum or Plasma by Immunoassay [facility] Hepatitis C virus Ig G Ab [Presence] in Serum or Plasma by Immunoassay [facility] HFE gene mutations f ound [Identifier] in Blood or Tissue by Molecular genetics method Nominal [facility] Homogenous nuclear A b pattern [Titer] in Serum [facility] IgG [Mass/volume] in Serum or Plasma [facility] Lipoprotein a [Moles/volume] in Serum or Plasma [facility] Mitochondria M2 IgG Ab [Units/volume] in Serum [facility] Nuclear Ab [Titer] in Serum [facility] Patient Education Know your Meds [facility] Work Phone: Patient referral [facility] Work Phone: [facility] Payers Date Payer Category Payer Private Health Insurance [id number] 2024 Medicare [id number] 2023 Unknown [id number] 1959 Self-pay 1955 Unknown [id number] 1955 Unknown [id number] 2.16.840.1.199636.3.579.2.593 1957 Unknown [id number] 2.16.840.1.804928.3.579.2.593 1957 Unknown [id number] 2.16.840.1.696164.3.579.2.727 1955 Unknown [id number] 2.16.840.1.021659.3.579.2.128 6 1957 Unknown [id number] 2.16.840.1.034762.3.579.2.128 6 1957 Unknown [id number] 2.16.840.1.110672.3.579.2.128 6 1957 Unknown [id number] 2.16.840.1.374007.3.579.2.128 6 1955 Unknown [id number] 2.16.840.1.028038.3.579.2.128 6 Medicare [id number] Private Health Insurance [employer] [id number] Unknown [id number] Unknown O [id number] Unknown [id number] 2.16.840.1.205571.3.579.2.531 Unknown [id number] 2.16.840.1.164461.3.579.2.531 Unknown [id number] 2.16.840.1.774341.3.579.2.531 Unknown [id number] 2.16.840.1.149496.3.579.2.531 Unknown [id number] 2.16.840.1.873050.3.579.2.531 Unknown [id number] 2.16.840.1.694449.3.579.2.531 Unknown [id number] 2.16.840.1.589919.3.579.2.531 Unknown [id number] 2.16.840.1.213277.3.579.2.531 Worker's Compensation [facility] [id number] Social History Date Type Detail Facility Tobacco smoking stat [facility] Unknown if ever smoked [facility] Work Phone: Start: 1955 Sex Assigned At Male F [facility] Start: 07-24-2019 Tobacco smoking stat [facility] Current some day smoker [facility] Start: 09-18-2024 End: 11-27-2024 Sex Male (finding) [facility] Start: 09-21-2024 End: 09-22-2024 Tobacco smoking status NHIS Ex-smoker (finding) [facility] Medical Equipment Procedure Code Equipment Code Equipment Origin al Text Equipment Identifier Dates Open reduction and internal fixation of fracture of humerus Elbow radius prosthesis ()[id number] FDA Start: 09-22-2024 Open reduction and internal fixation of fracture of humerus Elbow radius prosthesis ()[id number] FDA Start: 09-22-2024 Goals Date Patient Goal Desired Activity /State Clinical Notes 04-29-2024 to 12-17-2024 Note Date & Type Note Facility 12-17-2024 Note Received referral fo r patient from PCP Dr. Peggy Muñoz. Dx: chronic cholelithiasis with pancreatitis and a history of liver disease. Called patient to schedule, but no answer and VM not set up. Reached out to spouse SHABANA who reports that patient currently at [facility] but she and patient unwilling to travel to [place] for consult/treatment. Reports she cannot transport him due to distance. Declines referral at this time and will seek care closer in proximity to their hometown. [facility] 11-26-2024 Radiology Diagnostic study note [facility] [place] [address] [place] [address] CT Scan Report Signed Patient: Gerson Penn MR#: [id number] : 1955 Acct:[id number] Age/Sex: 68 / M ADM Date: 5 Loc: CT Room: Type: [facility] Attending Dr: Derrek Rodgers MD Copies [...] Jr., D.O. 11/26/2024 3:27 PM Dictation Location: [place] [address] Transcribed By: [facility] 11/26/24 1527 Dictated By: Gage Noland Jr, DO 11/26/24 1519 Signed By: 11/26/24 1527 [facility] 11-05-2024 Evaluation note Authored November 05, 2024 [...] kidney function Will arrange for screening colonoscopy [facility] Work Phone: 1(359) 401-243002-21-2025 Evaluation note* Diagnosis Onset Date Resolution Status Admit Date Fracture of coronoid process of left ulna acute September 18, 2 025 7:49am Fracture of radial head, left, closed acute September 18, 2 025 7:49am [facility] Work Phone: 1(861) 288-702102-21-2025 Evaluation note* Diagnosis Onset Date Resolution Status Admit Date Fracture of coronoid process of left ulna acute September 18, 2 025 7:49am Fracture of radial head, left, closed acute September 18, 2 025 7:49am Fracture of coronoid process of left ulna acute October 07, 2024 8:05am Fracture of radial head, left, closed acute October 07, 2024 8:05am Other specified postprocedural states noneactive September 8:05am [facility] Work Phone: 1(860) 140-708802-21-2025 Evaluation note* Diagnosis Onset Date Resolution Status Admit Date Fracture of coronoid process of left ulna acute September 18, 2 025 7:49am Fracture of radial head, left, closed [...] postprocedural states noneactive November 02, 2024 9:55am [facility] Work Phone: 1(308) 353-559910-17-2024 NotePatient: Gerson Penn Procedure Information Date/Time: 05/14/24 1200 Procedures: Coronary angiography Right heart cath Location: [facility] [place] [facility]PRENT[facility] 2 BIPLANE / [facility] (Cath) Providers: Taj Otero [...] products. Plan discussed with attending. 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 [facility] noteNo assessment information available[facility] Work Phone: Evaluation note* Diagnosis Onset Date Resolution Status Admit Date Fracture of coronoid process of left ulna acute September 18, 2 025 7:49am Fracture of radial head, left, closed acute September 18, 2 025 7:49am [facility] Work Phone: Evaluation note* Author [facility] Authored November 05, 2024 11: 08am 68-year-old man with decompe nsated liver cirrhosis [...] kidney function Will arrange for screening colonoscopy [facility] Work Phone: Summary Purpose Family History [...] Reason for Visit Chief Complaint Admit Date 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 [facility] 2024 7:49am Reason for Visit Admit Date Fracture of coronoid process of left uln a September 18, 2024 7:49am Fracture of radial head, left, closed [facility] 2024 7:49am Chief Complaint Admit Date 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 [facility] 2024 7:49am Left Radial Head Fracture September 21, 2024 7:38am Chief Complaint Admit Date 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 [facility] 2024 7:49am Left Radial Head Fracture September 21, 2024 7:38am Left Radial Head Fracture September 22, 2024 7:29am Left Radial Head Fracture September 22, 2024 10:58am Chief Complaint Admit Date 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 [facility] 2024 7:49am Left Radial Head Fracture [...] 7:49am Fracture of radial head, left, closed [facility] 2024 7:49am Fracture of coronoid process of left uln a October 07, 2024 8:05am Fracture of radial head, left, closed [facility] 2024 8:05am Other specified postprocedural states [facility] 2024 8:05am Chief Complaint Admit Date 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 EL[employer]OW FX [facility] 2024 7:49am Left Radial Head Fracture September 21, 2024 7:38am Left Radial Head Fracture September 22, 2024 7:29am Left Radial Head Fracture September 22, 2024 10:58am 3 weeks post op October 07, 2024 8:0 5am S52.122A - Displaced fracture of head of left radi October 07, 2024 8:07am Unknown October 20, 2024 6:2 0pm Chief Complaint Admit Date 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[employer] LT ELBOW FX [facility] 2024 7:49am Left Radial Head Fracture [...] Fracture of radial head, left, closed [facility] 2024 7:49am Fracture of coronoid process of left uln a October 07, 2024 8:05am Fracture of radial head, left, closed [facility] 2024 8:05am Other specified postprocedural states [facility] 2024 8:05am Fracture of coronoid process of left uln a November 02, 2024 9:55am Fracture of radial head, left, closed [facility] 2024 9:55am Other specified postprocedural states [facility] 2024 9:55am Chief Complaint Admit Date 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 LT EL[employer] FX [facility] 2024 7:49am Left Radial Head Fracture [...] Fracture of radial head, left, closed [facility] 2024 8:05am Other specified postprocedural states Ma [...] 05, 2024 10:08am Chief Complaint Admit Date 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[employer] LT ELBOW FX [facility] 2024 7:49am Left Radial Head Fracture [...] 2024 11: 25am Chief Complaint Admit Date 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 LT EL[employer] FX [facility] 2024 7:49am Left Radial Head Fracture [...] 2024 12: 30pm Chief Complaint Admit Date 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 LT ELBOW FX [facility] 2024 7:49am Left Radial Head Fracture September [...] DATE CREATED AUTHOR 06/17/2020 [facility] DATE CREATED AUTHOR AUTHOR'S ORGANIZ ATION 07/07/2022 [facility] DATE CREATED AUTHOR AUTHOR'S ORGANIZ ATION 04/20/2023 [facility] DATE CREATED AUTHOR AUTHOR'S ORGANIZ ATION 12/01/2024 [facility] DATE CREATED AUTHOR AUTHOR'S ORGANIZ ATION 12/24/2024 [facility] DATE CREATED AUTHOR AUTHOR'S ORGANIZ ATION 12/31/2024 [facility] Goals (unrecognized section and content) Goals may [...] BE BASED ON THE PRIMARY CLINICAL RECORDS. [email or web address] [facility]. provides no warranty or guarantee of the accuracy or completeness of information in this document.
--- NOTE | 2025-01-06 22:29 | ECG_ITS ---
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 Measurements Intervals [place] Rate: 70 P: 42 MN: 176 QRS: 8 QRSD: 90 T: 42 QT: 400 QTc: 421 Interpretive Statements 1100 Sinus rhythm 8102 Low QRS voltage in chest leads 9120 atypical ECG Compared to ECG 12/10/2024 14:02:44 Low QRS voltage now present Electronically Signed On 01-07-2025 18:34:57 EDT by TAJ OTERO M.D.
[2025-01-07] VITALS (23 sets, daily range): BP systolic 96–143; BP diastolic 45–74; PULSE 73–98; TEMP 36.4–36.7; O2SAT 94–96; BMI 43.7
--- NOTE | 2025-01-07 00:39 | ED.FALL1 ---
HPI HPI - Fall General Chief Complaint: Fall Stated Complaint: FALL Time Seen by Provider: 01/06/25 22:20 Source: patient Mode of arrival: ambulance Limitations: physical limitation History of Present Illness HPI Narrative: 69-year-old male is coming to the ER after he had a fall, patient is morbidly obese with a BMI 43 apparently had a fall multiple times since he has been discharged Saturday from the custodial facility, lives with his and apparently he fell backward using his walker, he did hit the back of his head he did not lose consciousness and he was not able to stand up after the fall, the patient did call the EMS and they helped him and brought him to the ER Patient had multiple upper extremity abrasion from previous falls He have a left elbow abrasion from this fall Related Data Home Medications ?Medication ?Instructions ?Recorded ?Confirmed carvedilol 6.25 mg tablet 6.25 mg PO Q12H 05/27/23 01/07/25 furosemide 20 mg tablet 40 mg PO DAILY 05/27/23 01/07/25 potassium chloride 20 mEq 20 meq PO DAILY 05/27/23 01/07/25 tablet,extended release(part/cryst) (Klor-Con M) ezetimibe 10 mg tablet 10 mg PO DAILY 10/20/24 01/07/25 amlodipine 2.5 mg tablet 2.5 mg PO DAILY 11/18/24 01/07/25 aspirin 81 mg capsule 81 mg PO DAILY 11/18/24 01/07/25 cyanocobalamin (vitamin B-12) 2,000 mcg PO DAILY 11/18/24 01/07/25 2,000 mcg tablet,extended release (Vitamin B-12 ER) ferrous sulfate 325 mg (65 mg 325 mg PO BID 11/18/24 01/07/25 iron) tablet (iron) olanzapine 2.5 mg tablet 2.5 mg PO DAILY 11/18/24 01/07/25 canagliflozin 100 mg tablet 100 mg PO .QD 12/10/24 01/07/25 (Invokana) levothyroxine 50 mcg tablet 50 mcg PO .ACB 12/10/24 01/07/25 liothyronine 5 mcg tablet 5 mcg PO .ACB 12/10/24 01/07/25 sacubitril 24 mg-valsartan 26 mg 1 tab PO BID 12/10/24 01/07/25 tablet (Entresto) spironolactone 50 mg tablet 50 mg PO BID 12/10/24 01/07/25 Previous Rx's ?Medication ?Instructions ?Recorded lactulose 10 gram/15 mL oral 10 g (15 mL) PO TID #3,785 mL 11/20/24 solution canagliflozin 100 mg tablet 100 mg PO QD #30 tabs 12/14/24 (Invokana) citalopram 20 mg tablet 40 mg (2 x 20 mg) PO DAILY #60 tabs 12/14/24 food supplemt, lactose-reduced 1 ea PO BID #5,688 mL 12/14/24 (Ensure Active Protein-Muscle oral liquid) nystatin 100,000 unit/gram topical 1 applic topical BID #60 grams 12/14/24 powder (Nystop) quetiapine 25 mg tablet 50 mg (2 x 25 mg) PO HS #60 tabs 12/14/24 sacubitril 24 mg-valsartan 26 mg 2 tab PO BID #120 tabs 12/14/24 tablet (Entresto) sitagliptin phosphate 50 mg tablet 100 mg (2 x 50 mg) PO QD #60 tabs 12/14/24 (Januvia) Allergies Allergy/AdvReac Type Severity Reaction Status Date / Time No Known Drug Allergies Allergy Verified 01/06/25 22:27 Opioid HPI Opioid Management Most Recent Pain and Opioid Data: Last Pain Scale 3 12/14/24, 08:00 Last Pain Intensity 2 11/19/24, 14:26 Last ORT Total Score 0 12/10/24, 17:14 Last ORT Risk Category Low Risk 12/10/24, 17:14 Review of Systems ROS Status of ROS 10 or more systems reviewed and unremarkable except as noted in history and below [facility] Medical History Generalized weakness ?R53.1 - Weakness (ICD-10) Sepsis ?A41.9 - Sepsis, unspecified organism (ICD-10) Generalized weakness ?R53.1 - Weakness (ICD-10) Laceration of left forearm ?S51.812A - Laceration without foreign body of left forearm, initial encounter (ICD-10) Chest wall contusion ?S20.219A - Contusion of unspecified front wall of thorax, initial encounter (ICD-10) Head injury ?S09.90XA - Unspecified injury of head, initial encounter (ICD-10) Abdominal pain ?R10.9 - Unspecified abdominal pain (ICD-10) Severe protein-calorie malnutrition ?E43 - Unspecified severe protein-calorie malnutrition (ICD-10) Coagulopathy ?D68.9 - Coagulation defect, unspecified (ICD-10) Hyperbilirubinemia ?E80.6 - Other disorders of bilirubin metabolism (ICD-10) Lactic acidosis ?E87.20 - Acidosis, unspecified (ICD-10) Hyperkalemia ?E87.5 - Hyperkalemia (ICD-10) Thrombocytopenia ?D69.6 - Thrombocytopenia, unspecified (ICD-10) Acute pancreatitis ?K85.90 - Acute pancreatitis without necrosis or infection, unspecified (ICD-10) Cholelithiasis ?K80.20 - Calculus of gallbladder without cholecystitis without obstruction (ICD-10) Cirrhosis ?K74.60 - Unspecified cirrhosis of liver (ICD-10) Acute kidney injury superimposed on stage 1 chronic kidney disease ?N17.9 - Acute kidney failure, unspecified (ICD-10) ?N18.1 - Chronic kidney disease, stage 1 (ICD-10) Acute UTI ?N39.0 - Urinary tract infection, site not specified (ICD-10) Nausea vomiting and diarrhea ?R11.2 - Nausea with vomiting, unspecified (ICD-10) ?R19.7 - Diarrhea, unspecified (ICD-10) Hypovolemia ?E86.1 - Hypovolemia (ICD-10) Syncope ?R55 - Syncope and collapse (ICD-10) Dehydration ?E86.0 - Dehydration (ICD-10) Surgical History History of left hip replacement ?Z96.642 - Presence of left artificial hip joint (ICD-10) Family History Father Family history of myocardial infarction Mother Family history of hypertension Family history of cancer Social History Within the past year, how often did you have a drink containing alcohol: never Score interpretation: A score less than 4 is consistent with normal alcohol consumption. Smoking status: Former smoker Non-prescribed substance use: denies use Highest level of school completed/degree received: high school graduate Little interest or pleasure in doing things: not at all Feeling down, depressed, or hopeless: not at all Exam Narrative Exam Narrative: Nurses notes and vital signs reviewed and patient is not hypoxic. General: Well-appearing and in no apparent distress. No rash. Head: Normocephalic, atraumatic. Neck: Supple, non-tender. Eye: Pupils are equal, round and EOMI. No scleral icterus. Ears, Nose, Mouth, and Throat: TM are clear, no nasal mucosal hypertrophy. Oral mucosa is moist, no posterior oropharynx erythema, uvula is mid-line Cardiovascular: Regular Rate and Rhythm without murmur, gallop or rub. Respiratory: No accessory muscle use or respiratory distress. Lungs are clear to auscultation, no wheezing, rales or rhonchi Chest Wall: no tenderness Back: No midline thoracic or lumbar vertebral tenderness. No CVA tenderness Musculoskeletal: Multiple upper extremity abrasions that are healing but the patient have an elbow abrasion on the left elbow that is measuring almost 2 x 3 cm wide based and not deep, no tenderness upon palpation GI: Abdomen is soft, non-distended. Normal bowel sounds. No masses appreciated. No tenderness to palpation. No rebound, guarding, or rigidity noted. Neurological: A&O x4. No cranial nerve dysfunction observed. Constitutional Vital Signs, click to edit/add: Last Vital Signs Temp 97.8 F 01/06/25 22:25 Pulse 80 01/07/25 02:53 Resp 11 L 01/07/25 02:53 BP 97/60 01/07/25 02:53 Pulse Ox 99 01/06/25 22:30 O2 Del Method Room Air 01/06/25 22:25 Course Vital Signs Vital signs: Vital Signs Pulse Oximetry 100 01/06/25 22:23 Temperature 97.8 F 01/06/25 22:25 Pulse Rate 80 01/07/25 02:53 Respiratory Rate 11 L 01/07/25 02:53 Blood Pressure 97/60 01/07/25 02:53 Pulse Oximetry 99 01/06/25 22:30 Oxygen Delivery Method Room Air 01/06/25 22:25 MDM - Fall MDM Narrative Medical decision making narrative: The patient had a history of multiple falls apparently since he has been discharged The patient EKG in the ER was showing sinus rhythm with a heart rate of [address] elevation or depression Initially a CT head and CT cervical spine showed no acute pathology The plan initially was to discharge the patient but he mentioned that he does not feel safe at home and he keeps falling, he was not able to get out of the bed and stand up in the ER because of generalized weakness. The patient CBC and chemistry showed no acute significant pathology Patient will be admitted to the hospital for further evaluation as an observation as there is no safe discharge Patient case discussed with Christina West and the patient will be admitted under Lab Data Labs: Lab Results 01/07/25 Range/Units 01:01 WBC 3.6 L (4.0-11.0) 10^3/uL RBC 2.88 L (4.70-6.10) 10^6/uL Hgb 9.9 L (14.0-18.0) g/dL Hct 29.9 L (42.0-54.0) % MCV 103.8 H (80.0-94.0) fL MCH 34.4 H (25.9-34.0) pg MCHC 33.1 (29.9-35.2) g/dL RDW 14.8 (11.0-15.0) % Plt Count 129 L (150-450) 10^3/uL MPV 10.5 (9.5-13.5) fL Seg Neuts % (Manual) 83.0 H (43.0-75.0) Band Neutrophils % 1.0 (0-5) % Lymphocytes % (Manual) 3.0 L (20.5-60.0) % Atypical Lymphs % (Man) 3.0 % Monocytes % (Manual) 5.0 (1.7-12.0) % Eosinophils % (Manual) 5.0 (0.9-7.0) % Basophils % (Manual) 0.0 L (0.2-2.0) % Neutrophils # (Manual) 2.98 (1.4-6.5) 10^3/uL Band Neutrophils # 0.0 (0.0-0.3) 10^3/uL Lymphocytes # (Manual) 0.10 L (1.20-3.80) 10^3/uL Abs Atypical Lymphs Man 0.10 Monocytes # (Manual) 0.18 L (0.30-0.80) 10^3/uL Eosinophils # (Manual) 0.18 (0.00-0.70) 10^3/uL Basophils # (Manual) 0.00 (0.00-0.10) 10^3/uL Sodium 138 (136-145) mmol/L Potassium 4.8 (3.5-5.1) mmol/L Chloride 106 (98-107) mmol/L Carbon Dioxide 29.5 (21.0-32.0) mmol/L Anion Gap 7.3 BUN 30.0 H (7.0-18.0) mg/dL Creatinine 1.20 (0.70-1.30) mg/dL Est GFR ( Amer) >60 (>=60 mL/min/1.73m^2) Est GFR (Non-Af Amer) >60 (>=60 mL/min/1.73m^2) BUN/Creatinine Ratio 25.0 Glucose 105 (74-106) mg/dL Calcium 8.5 (8.5-10.1) mg/dL Total Bilirubin 1.3 H (0.2-1.0) mg/dL AST 69 H (15-37) U/L ALT 51 (16-63) U/L Alkaline Phosphatase 278 H (46-116) U/L Total Protein 5.6 L (6.4-8.2) g/dL Albumin 1.2 L (3.4-5.0) g/dL Globulin 4.4 g/dL Albumin/Globulin Ratio 0.3 Discharge Plan Discharge Chief Complaint: Fall Clinical Impression: Fall, Head trauma, Abrasion of elbow Patient Disposition: Admitted as Observation Time of Disposition Decision: 00:40 Condition: Good Discharge Date/Time: 01/07/25 03:27
[2025-01-07 01:06] LABS: Hematocrit 29.9 % (42.0-54.0); Hemoglobin 9.9 g/dL (14.0-18.0); Mean Corpuscular HGB Conc 33.1 g/dL (29.9-35.2); Mean Corpuscular Hemoglobin 34.4 pg (25.9-34.0); Mean Corpuscular Volume 103.8 fL (80.0-94.0); Mean Platelet Volume 10.5 fL (9.5-13.5); Platelet Count 129 10^3/uL (150-450); Red Blood Count 2.88 10^6/uL (4.70-6.10); Red Cell Distribution Width 14.8 % (11.0-15.0); White Blood Count 3.6 10^3/uL (4.0-11.0)
[2025-01-07 01:29] LABS: Alanine Aminotransferase 51 U/L (16-63); Albumin Globulin Ratio 0.3; Albumin Level 1.2 g/dL (3.4-5.0); Alkaline Phosphatase 278 U/L (46-116); Anion Gap 7.3; Aspartate Amino Transferase 69 U/L (15-37); Bilirubin Total 1.3 mg/dL (0.2-1.0); Calcium 8.5 mg/dL (8.5-10.1); Carbon Dioxide 29.5 mmol/L (21.0-32.0); Chloride 106 mmol/L (98-107); Estimated GFR (African America >60 (>=60 mL/min/1.73m^2); Estimated GFR (Non-African Ame >60 (>=60 mL/min/1.73m^2); Globulin 4.4 g/dL; Glucose 105 mg/dL (74-106); Potassium 4.8 mmol/L (3.5-5.1); Sodium 138 mmol/L (136-145); Total Protein 5.6 g/dL (6.4-8.2)
[2025-01-07 01:40] LABS: Eosinophils Absolute Manual 0.18 10^3/uL (0.00-0.70); Monocytes Absolute Manual 0.18 10^3/uL (0.30-0.80); Segmented Neut Absolute Manual 2.98 10^3/uL (1.4-6.5)
--- OUTSIDE RECORDS SUMMARY | 2025-01-07 03:28 | XMS_ITS | CCD ---
Author Organization [facility] Care Team Providers Care Degreaser Name Role Phone RASHAAD, DR WOODS Admitting [...] Unavailable Peggy Muñoz MD Primary Care Provider [phone] Geoffrey Ibrahim DO Attending Provider [phone] Peggy Muñoz MD Primary Care Provider [phone] Geoffrey Ibrahim DO Attending Provider Leti Ren PA-C Attending Provider [phone] NON STAFF Primary Care Provider UnavailDerrek Morales MD Attending Provider Peggy Muñoz MD Attending Provider [phone] Asaad, Imad Admitting Unavailable Asaad, Imad Attending [...] wo/w conon 2024 CT abdomen wo/w con [facility] [address] CT Scan Report Signed Patient: Gerson Penn MR#: [id number] : 1955 Acct:[id number] Age/Sex: 68 / M ADM Date: 11/26/24 Loc: CT Room: Type: [facility] Attending Dr: Derrek Rodgers MD Copies to: [...] Jr., DestinyOBranden 11/26/2024 3:27 PM Dictation Location: [place] [address] Transcribed By: [facility] 11/26/24 1527 Dictated By: Gage Noland Jr, DO 11/26/24 1519 Signed By: 11/26/24 1527 Normal [facility] Urine Cultureon 11-18-2024 Bacteria identified Cx Nom (U) ORGANISM: Enterobacter cloacae complex (O:ENTCLOCPLX) [place] Count >100,000 Aerobic LACHELLE Charge (NMIC56) [...] RESISTANT TO ALL B-LACTAM DRUGS. PERFORMED BY: [place] [address] PATHOLOGIST DRAWING INSTRUCTOR LEANDRA WALSH M.D. Normal [facility] Comment on above: Performed By: #### H EMOCHROM, HAAB, HCBIGM, HCV RX PCR, HAABT, HBSAB, HBCAB, HBSAG, CERULOP, MITOM2, AFPTM, ALPHA PHEN, IGG, DYLAN, SMAB, L-K MICRO #### [facility] , #### PT, CMP, KYLE, CBC #### [facility] [address] [place] [address] Urine cultureOrdered By: Wilfrido Muoñz on 11-18-2024 Bacteria identified Cx Nom (U) Abnormal [facility] AFP Tumor Marker, Serumon AFP Tumor Marker, Serum 9.3 ng/mL High 0.0-8.4 [facility] Comment on above: Result Comment: [facility] [employer] Electrochemiluminescence Immunoassay (ECLIA) Values obtained with different assay methods or kits cannot be used interchangeably. Results cannot be interpreted as absolute evidence of the presence or absence of malignant disease. This test is not interpretable in females. Performed at: [facility] [id number] Roofing Subcontractor: Stewart Palmer PhD, Phone: [phone] Performed By: #### H EMOCHROM, HAAB, HCBIGM, HCV RX PCR, HAABT, HBSAB, HBCAB, HBSAG, CERULOP, MITOM2, AFPTM, ALPHA PHEN, IGG, DYLAN, SMAB, L-K MICRO ####[facility] ,#### PT, CMP, KYLE, CBC ####[facility] DYLAN Antinuclear Antibodieson 11-05-2024 Antinuclear Abs, IFA Negative Normal . [facility] Comment on above: Result Comment: Nega tive <1:80 Borderline 1:80 Positive >1:80 ICAP nomenclature: AC-0 For more information about Hep-2 cell patterns use ANApatterns.org, the official website for the International Consensus on Antinuclear Antibody (DYLAN) Patterns (ICAP). Performed at: - [place] [address] Roofing Subcontractor: Stewart Palmer PhD, Phone: [phone] Performed By: #### H EMOCHROM, HAAB, HCBIGM, HCV RX PCR, HAABT, HBSAB, HBCAB, HBSAG, CERULOP, MITOM2, AFPTM, ALPHA PHEN, IGG, DYLAN, SMAB, L-K MICRO ####[facility] ,#### PT, CMP, KYLE, CBC ####[place] [id number] [address] Actin smooth muscle IgG Ab [ Units/volume] in SerumOrdered By: Imad Asaad on 11-05-2024 Actin smooth muscle IgG Qn (S) Actin smooth muscle IgG Ab [Units/volume] in Serum 0-19 [facility] Comment on above: Negative 0 - [...] activity/volume] in Serum or Plasma High 7-52 [facility] Albumin [Mass/volume] in Ser um or Plasma by Bromocresol green (BCG) dye binding methoOrdered By: Immatthew Rodgers on 11-05-2024 Albumin BCG dye [Mass/Vol] Albumin [Mass/volume] in Serum or Plasma by Bromocresol green (BCG) dye binding metho Low 3.5-5.7 [facility] Alkaline phosphatase [Enzyma tic activity/volume] in Serum or PlasmaOrdered By: Imad Ana Maria on 11-05-2024 ALP [Catalytic activity/Vol] Alkaline phosphatase [Enzymatic activity/volume] in Serum or Plasma High 34-104 [facility] Vnzae-1-Gaynlkkstzj Phenotyp gonzales 11-05-2024 Alpha 1 Anti-Trypsin 104 mg/dL Normal 101-187 [facility] Comment on above: Performed By: #### H EMOCHROM, HAAB, HCBIGM, HCV RX PCR, HAABT, HBSAB, HBCAB, HBSAG, CERULOP, MITOM2, AFPTM, ALPHA PHEN, IGG, DYLAN, SMAB, L-K MICRO ####[facility] ,#### PT, CMP, KYLE, CBC ####[facility] [address] Phenotype (P1) MS Normal . [facility] Comment on above: Result Comment: MM Phenotype is considered to be normal , producing normal serum levels of djnzr-8-slluakse inhibitor and not associated with clinical disease. [...] used to confirm phenotype. Performed at: - [facility] [id number] Roofing Subcontractor: Stewart Palmer PhD, Phone: [phone] Performed at: - [facility] [id number] Roofing Subcontractor: Beto Vincent MD, Phone: [phone] Performed By: #### H EMOCHROM, HAAB, HCBIGM, HCV RX PCR, HAABT, HBSAB, HBCAB, HBSAG, CERULOP, MITOM2, AFPTM, ALPHA PHEN, IGG, DYLAN, SMAB, L-K MICRO ####[facility] ,#### PT, CMP, KYLE, CBC ####[facility] [address] Aspartate aminotransferase [ Enzymatic activity/volume] in Serum or PlasmaOrdered By: Immatthew Rodgers on 11-05-2024 AST [Catalytic activity/Vol] Aspartate aminotransferase [Enzymatic activity/volume] in Serum or Plasma High 13-39 [facility] Basophils Auto (Bld) [#/Vol] Ordered By: Imad Asaad on 11-05-2024 Basophils (Bld) [#/Vol] Automated basophil count 0.0-0.2 [facility] Basophils/100 WBC Auto (Bld) Ordered By: Imad Asaad on 11-05-2024 Basophils/100 WBC (Bld) Automated basophil % . [facility] Bilirubin.total [Mass/volume ] in Serum or PlasmaOrdered By: Imad Ana Maria on 11-05-2024 Bilirubin [Mass/Vol] Bilirubin.total [Mass/volume] in Serum or Plasma High 0.3-1.0 [facility] Comment on above: Samples from patient [...] mutations identification by molecular genetics method . [facility] Comment on above: Result:c.845G>A (p.C kk384Ozv) - Not Detectedc.187C>G (p.Dbn90Njw) - Not Detectedc.193A>T (p.Jni30Jhp) - Not DetectedNot associated with increased risk [...] recommended for patientswho are homozygous for c.845G>A (p.Pqw064Hlz) and have yetto experience clinical symptoms.Comments:The most common HFE variants associated with hereditaryhemochromatosis are c.845G>A (p.Lmz209Kdj), c.187C>G(p.Keo58Ujz), c.193A>T (p.Idh52Ord). While patientshomozygous for c.845G>A (p.Awb547Pws) are the most likelyto present clinical symptoms, less than 10% developclinically significant iron overload with tissue and organdamage.Genetic counseling is recommended to discuss the potentialclinical implications of positive results, as well asrecommendations for testing family members.Genetic Coordinators are available for health careproviders to discuss results at [phone]).Test Details:Three variants analyzed:c.845G>A (p.Yxs639Dpo), commonly referred to as C282Yc.187C>G (p.Had71Ach), commonly referred to as H63Dc.193A>T (p.Qzo28Dcz), commonly referred to as N26KIkmvrxt/Limitations:DNA Analysis of the HFE gene (NM_000410.4) was [...] was developed and its performancecharacteristics determined by [employer]. It has not beencleared or approved by the Food and Drug Administration.References:Rafa BR, Vel PC, Art KV, Wai LW, Nate ;[employer] Liver [employer].Diagnosis and management of hemochromatosis: 2011 practiceguideline by the [employer] for the Study ofLiver Diseases. Hepatology. 2010;54(1):328-43. doi:10.1002/hep.94063. PMID: 84457421; PMCID: VKE0061834.Nigel G, Clay P, Fatoumata NINA, Mervat H, Juan O,Alex S, Raulito I, Marv M, Jimbo S. [facility] best practiceguidelines for the molecular genetic diagnosis ofhereditary hemochromatosis (HH). Eur J Hum Neelima. 2016Apr;24(4):479-95. doi: 10.1038/ejhg.2015.128. Epub 2014. PMID: 00391504; PMCID: JWG9393187. Calcium [Mass/volume] in Ser um or PlasmaOrdered By: Imad Asaad on 11-05-2024 Calcium [Mass/Vol] Calcium [Mass/volume ] in Serum or Plasma 8.6-10.3 [facility] Carbon dioxide, total [Moles /volume] in Serum or PlasmaOrdered By: Imad Asaad on 11-05-2024 CO2 [Moles/Vol] Carbon dioxide, tota l [Moles/volume] in Serum or Plasma 21.0-31.0 [facility] Ceruloplasminon 11-05-2024 Ceruloplasmin 19.1 mg/dL Normal 16.0-31.0 [facility] Comment on above: Result Comment: Perf ormed at: - [facility] [address] [id number] Roofing Subcontractor: Stewart Palmer PhD, Phone: [phone] PERFORMED BY: [place] [address] PATHOLOGIST DRAWING INSTRUCTOR LEANDRA WALSH M.D. Performed By: #### H EMOCHROM, HAAB, HCBIGM, HCV RX PCR, HAABT, HBSAB, HBCAB, HBSAG, CERULOP, MITOM2, AFPTM, ALPHA PHEN, IGG, DYLAN, SMAB, L-K MICRO ####[facility] ,#### PT, CMP, KYLE, CBC ####[address] Chloride [Moles/volume] in S saud or PlasmaOrdered By: Derrek Rodgers on 11-05-2024 Chloride [Moles/Vol] Chloride [Moles/vol ume] in Serum or Plasma 98-107 [facility] Complete Blood Count Auto Di ffon 11-05-2024 Basophils (Bld) [#/Vol] 0.0 10*3/uL Normal 0.0-0.2 [facility] Comment on above: Result Comment: PERF ORMED BY: [place] [address] PATHOLOGIST DRAWING INSTRUCTOR LEANDRA WALSH M.D. Performed By: #### H EMOCHROM, HAAB, HCBIGM, HCV RX PCR, HAABT, HBSAB, HBCAB, HBSAG, CERULOP, MITOM2, AFPTM, ALPHA PHEN, IGG, DYLAN, SMAB, L-K MICRO #### [facility] , #### PT, CMP, KYLE, CBC #### [address] Basophils/100 WBC (Bld) 0.7 % Normal . [facility] Comment on above: Performed By: #### H EMOCHROM, HAAB, HCBIGM, HCV RX PCR, HAABT, HBSAB, HBCAB, HBSAG, CERULOP, MITOM2, AFPTM, ALPHA PHEN, IGG, DYLAN, SMAB, L-K MICRO #### [facility] , #### PT, CMP, KYLE, CBC #### [address] Eosinophils (Bld) [#/Vol] 0.1 10*3/uL Normal 0.0-0.45 [facility] Comment on above: Performed By: #### H EMOCHROM, HAAB, HCBIGM, HCV RX PCR, HAABT, HBSAB, HBCAB, HBSAG, CERULOP, MITOM2, AFPTM, ALPHA PHEN, IGG, DYLAN, SMAB, L-K MICRO #### [facility] , #### PT, CMP, KYLE, CBC #### [address] Eosinophils/100 WBC (Bld) 1.8 % Normal . [facility] Comment on above: Performed By: #### H EMOCHROM, HAAB, HCBIGM, HCV RX PCR, HAABT, HBSAB, HBCAB, HBSAG, CERULOP, MITOM2, AFPTM, ALPHA PHEN, IGG, DYLAN, SMAB, L-K MICRO #### [facility] , #### PT, CMP, KYLE, CBC #### [address] Erythrocyte distribution width (RBC) [Ratio] 19.0 % High 12.0-14.8 [facility] Comment on above: Performed By: #### H EMOCHROM, HAAB, HCBIGM, HCV RX PCR, HAABT, HBSAB, HBCAB, HBSAG, CERULOP, MITOM2, AFPTM, ALPHA PHEN, IGG, DYLAN, SMAB, L-K MICRO #### [facility] , #### PT, CMP, YKLE, CBC #### [address] Hematocrit (Bld) [Volume fraction] 37.3 % Low 38.8-50.0 [facility] Comment on above: Performed By: #### H EMOCHROM, HAAB, HCBIGM, HCV RX PCR, HAABT, HBSAB, HBCAB, HBSAG, CERULOP, MITOM2, AFPTM, ALPHA PHEN, IGG, DYLAN, SMAB, L-K MICRO #### [facility] , #### PT, CMP, KYLE, CBC #### [address] Hemoglobin (Bld) [Mass/Vol] 12.7 g/dL Low 13.0-17.0 [facility] Comment on above: Performed By: #### H EMOCHROM, HAAB, HCBIGM, HCV RX PCR, HAABT, HBSAB, HBCAB, HBSAG, CERULOP, MITOM2, AFPTM, ALPHA PHEN, IGG, DYLAN, SMAB, L-K MICRO #### [facility] , #### PT, CMP, KYLE, CBC #### [address] Lymphocytes (Bld) [#/Vol] 0.8 10*3/uL Low 1.00-4.8 [facility] Comment on above: Performed By: #### H EMOCHROM, HAAB, HCBIGM, HCV RX PCR, HAABT, HBSAB, HBCAB, HBSAG, CERULOP, MITOM2, AFPTM, ALPHA PHEN, IGG, DYLAN, SMAB, L-K MICRO #### [facility] , #### PT, CMP, KYLE, CBC #### [address] Lymphocytes/100 WBC (Bld) 11.1 % Normal . [facility] Comment on above: Performed By: #### H EMOCHROM, HAAB, HCBIGM, HCV RX PCR, HAABT, HBSAB, HBCAB, HBSAG, CERULOP, MITOM2, AFPTM, ALPHA PHEN, IGG, DYLAN, SMAB, L-K MICRO #### [facility] , #### PT, CMP, KYLE, CBC #### [address] MCH (RBC) [Entitic mass] 34.2 pg Normal 27.5-35.2 [facility] Comment on above: Performed By: #### H EMOCHROM, HAAB, HCBIGM, HCV RX PCR, HAABT, HBSAB, HBCAB, HBSAG, CERULOP, MITOM2, AFPTM, ALPHA PHEN, IGG, DYLAN, SMAB, L-K MICRO #### [facility] , #### PT, CMP, KYLE, CBC #### [address] MCV (RBC) [Entitic vol] 100.9 fL Normal 83.5-101 [facility] Comment on above: Performed By: #### H EMOCHROM, HAAB, HCBIGM, HCV RX PCR, HAABT, HBSAB, HBCAB, HBSAG, CERULOP, MITOM2, AFPTM, ALPHA PHEN, IGG, DYLAN, SMAB, L-K MICRO #### [facility] , #### PT, CMP, KYLE, CBC #### [address] Mean Corpuscular HGB Conc 33.9 g/dL Normal 32.5-35.6 [facility] Comment on above: Performed By: #### H EMOCHROM, HAAB, HCBIGM, HCV RX PCR, HAABT, HBSAB, HBCAB, HBSAG, CERULOP, MITOM2, AFPTM, ALPHA PHEN, IGG, DYLAN, SMAB, L-K MICRO #### [facility] , #### PT, CMP, KYLE, CBC #### [address] Monocytes (Bld) [#/Vol] 0.5 10*3/uL Normal 0.0-0.8 [facility] Comment on above: Performed By: #### H EMOCHROM, HAAB, HCBIGM, HCV RX PCR, HAABT, HBSAB, HBCAB, HBSAG, CERULOP, MITOM2, AFPTM, ALPHA PHEN, IGG, DYLAN, SMAB, L-K MICRO #### [facility] , #### PT, CMP, KYLE, CBC #### [address] Monocytes/100 WBC (Bld) 7.8 % Normal . [facility] Comment on above: Performed By: #### H EMOCHROM, HAAB, HCBIGM, HCV RX PCR, HAABT, HBSAB, HBCAB, HBSAG, CERULOP, MITOM2, AFPTM, ALPHA PHEN, IGG, DYLAN, SMAB, L-K MICRO #### [facility] , #### PT, CMP, KYLE, CBC #### [address] Neutrophils (Bld) [#/Vol] 5.4 10*3/uL Normal 1.8-7.7 [facility] Comment on above: Performed By: #### H EMOCHROM, HAAB, HCBIGM, HCV RX PCR, HAABT, HBSAB, HBCAB, HBSAG, CERULOP, MITOM2, AFPTM, ALPHA PHEN, IGG, DYLAN, SMAB, L-K MICRO #### [facility] , #### PT, CMP, KYLE, CBC #### [place] [address] [place] Neutrophils/100 WBC (Bld) 78.6 % Normal . [facility] Comment on above: Performed By: #### H EMOCHROM, HAAB, HCBIGM, HCV RX PCR, HAABT, HBSAB, HBCAB, HBSAG, CERULOP, MITOM2, AFPTM, ALPHA PHEN, IGG, DYLAN, SMAB, L-K MICRO #### [facility] , #### PT, CMP, KYLE, CBC #### [address] NRBC% 0.1 /100{WBC} Normal 0-0.5 [facility] Comment on above: Performed By: #### H EMOCHROM, HAAB, HCBIGM, HCV RX PCR, HAABT, HBSAB, HBCAB, HBSAG, CERULOP, MITOM2, AFPTM, ALPHA PHEN, IGG, DYLAN, SMAB, L-K MICRO #### [facility] , #### PT, CMP, KYLE, CBC #### [address] Platelet mean volume (Bld) [Entitic vol] 7.9 fL Normal 6.6-10.1 [facility] Comment on above: Performed By: #### H EMOCHROM, HAAB, HCBIGM, HCV RX PCR, HAABT, HBSAB, HBCAB, HBSAG, CERULOP, MITOM2, AFPTM, ALPHA PHEN, IGG, DYLAN, SMAB, L-K MICRO #### [facility] , #### PT, CMP, KYLE, CBC #### [address] Platelets (Bld) [#/Vol] 172 10*3/uL Normal 150-450 [facility] Comment on above: Performed By: #### H EMOCHROM, HAAB, HCBIGM, HCV RX PCR, HAABT, HBSAB, HBCAB, HBSAG, CERULOP, MITOM2, AFPTM, ALPHA PHEN, IGG, DYLAN, SMAB, L-K MICRO #### [facility] , #### PT, CMP, KYLE, CBC #### [address] RBC (Bld) [#/Vol] 3.70 10*6/uL Low 3.90-5.60 [facility] Comment on above: Performed By: #### H EMOCHROM, HAAB, HCBIGM, HCV RX PCR, HAABT, HBSAB, HBCAB, HBSAG, CERULOP, MITOM2, AFPTM, ALPHA PHEN, IGG, DYLAN, SMAB, L-K MICRO #### [facility] , #### PT, CMP, KYLE, CBC #### [address] WBC (Bld) [#/Vol] 6.8 10*3/uL Normal 4.1-10.5 [facility] Comment on above: Performed By: #### H EMOCHROM, HAAB, HCBIGM, HCV RX PCR, HAABT, HBSAB, HBCAB, HBSAG, CERULOP, MITOM2, AFPTM, ALPHA PHEN, IGG, DYLAN, SMAB, L-K MICRO #### [facility] , #### PT, CMP, KYLE, CBC #### [address] Comprehensive Metabolic Pane vinicio 11-05-2024 Albumin [Mass/Vol] 2.1 g/dL Low 3.5-5.7 [facility] Comment on above: Performed By: #### H EMOCHROM, HAAB, HCBIGM, HCV RX PCR, HAABT, HBSAB, HBCAB, HBSAG, CERULOP, MITOM2, AFPTM, ALPHA PHEN, IGG, DYLAN, SMAB, L-K MICRO #### [facility] , #### PT, CMP, KYLE, CBC #### [address] Albumin/Globulin [Mass ratio] 0.6 {ratio} Normal [facility] Comment on above: Performed By: #### H EMOCHROM, HAAB, HCBIGM, HCV RX PCR, HAABT, HBSAB, HBCAB, HBSAG, CERULOP, MITOM2, AFPTM, ALPHA PHEN, IGG, DYLAN, SMAB, L-K MICRO #### [facility] , #### PT, CMP, KYLE, CBC #### [address] ALP [Catalytic activity/Vol] 245 U/L High 34-104 [facility] Comment on above: Performed By: #### H EMOCHROM, HAAB, HCBIGM, HCV RX PCR, HAABT, HBSAB, HBCAB, HBSAG, CERULOP, MITOM2, AFPTM, ALPHA PHEN, IGG, DYLAN, SMAB, L-K MICRO #### [facility] , #### PT, CMP, KYLE, CBC #### [address] ALT [Catalytic activity/Vol] 86 U/L High 7-52 [facility] Comment on above: Performed By: #### H EMOCHROM, HAAB, HCBIGM, HCV RX PCR, HAABT, HBSAB, HBCAB, HBSAG, CERULOP, MITOM2, AFPTM, ALPHA PHEN, IGG, DYLAN, SMAB, L-K MICRO #### [facility] , #### PT, CMP, KYLE, CBC #### [address] Anion gap [Moles/Vol] 10.5 mmol/L Normal 6.0-15.[address] [facility] Comment on above: Performed By: #### H EMOCHROM, HAAB, HCBIGM, HCV RX PCR, HAABT, HBSAB, HBCAB, HBSAG, CERULOP, MITOM2, AFPTM, ALPHA PHEN, IGG, DYLAN, SMAB, L-K MICRO #### [facility] , #### PT, CMP, KYLE, CBC #### [address] AST [Catalytic activity/Vol] 77 U/L High 13-39 [facility] Comment on above: Performed By: #### H EMOCHROM, HAAB, HCBIGM, HCV RX PCR, HAABT, HBSAB, HBCAB, HBSAG, CERULOP, MITOM2, AFPTM, ALPHA PHEN, IGG, DYLAN, SMAB, L-K MICRO #### [facility] , #### PT, CMP, KYLE, CBC #### [address] Bilirubin [Mass/Vol] 3.2 mg/dL High 0.3-1.0 [facility] Comment on above: Result Comment: [...] , #### PT, CMP, KYLE, CBC #### [address] Calcium [Mass/Vol] 8.9 mg/dL Normal 8.6-10.3 [facility] Comment on above: Performed By: #### H EMOCHROM, HAAB, HCBIGM, HCV RX PCR, HAABT, HBSAB, HBCAB, HBSAG, CERULOP, MITOM2, AFPTM, ALPHA PHEN, IGG, DYLAN, SMAB, L-K MICRO #### [facility] , #### PT, CMP, KYLE, CBC #### [address] Chloride [Moles/Vol] 100 mmol/L Normal 98-107 [facility] Comment on above: Performed By: #### H EMOCHROM, HAAB, HCBIGM, HCV RX PCR, HAABT, HBSAB, HBCAB, HBSAG, CERULOP, MITOM2, AFPTM, ALPHA PHEN, IGG, DYLAN, SMAB, L-K MICRO #### [facility] , #### PT, CMP, KYLE, CBC #### [address] CO2 [Moles/Vol] 28.4 mmol/L Normal 21.0-31.0 [facility] Comment on above: Performed By: #### H EMOCHROM, HAAB, HCBIGM, HCV RX PCR, HAABT, HBSAB, HBCAB, HBSAG, CERULOP, MITOM2, AFPTM, ALPHA PHEN, IGG, DYLAN, SMAB, L-K MICRO #### [facility] , #### PT, CMP, KYLE, CBC #### [address] Creatinine [Mass/Vol] 1.18 mg/dL Normal 0.70-1.30 [facility] Comment on above: Performed By: #### H EMOCHROM, HAAB, HCBIGM, HCV RX PCR, HAABT, HBSAB, HBCAB, HBSAG, CERULOP, MITOM2, AFPTM, ALPHA PHEN, IGG, DYLAN, SMAB, L-K MICRO #### [facility] , #### PT, CMP, KYLE, CBC #### [address] GFR/1.73 sq M.predicted MDRD (S/P/Bld) [Vol rate/Area] mL/min/{1.73_m2} Normal [facility] Comment on above: Performed By: #### H EMOCHROM, HAAB, HCBIGM, HCV RX PCR, HAABT, HBSAB, HBCAB, HBSAG, CERULOP, MITOM2, AFPTM, ALPHA PHEN, IGG, DYLAN, SMAB, L-K MICRO #### [facility] , #### PT, CMP, KYLE, CBC #### [address] Globulin (S) [Mass/Vol] 3.3 g/dL Normal [facility] Comment on above: Performed By: #### H EMOCHROM, HAAB, HCBIGM, HCV RX PCR, HAABT, HBSAB, HBCAB, HBSAG, CERULOP, MITOM2, AFPTM, ALPHA PHEN, IGG, DYLAN, SMAB, L-K MICRO #### [facility] , #### PT, CMP, KYLE, CBC #### [place] [address] Glucose [Mass/Vol] 215 mg/dL High 70-100 [facility] Comment on above: Result Comment: [facility] Glucose Reference Range is dependent on time [...] , #### PT, CMP, KYLE, CBC #### [address] Potassium [Moles/Vol] 4.9 mmol/L Normal 3.5-5.1 [facility] Comment on above: Performed By: #### H EMOCHROM, HAAB, HCBIGM, HCV RX PCR, HAABT, HBSAB, HBCAB, HBSAG, CERULOP, MITOM2, AFPTM, ALPHA PHEN, IGG, DYLAN, SMAB, L-K MICRO #### [facility] , #### PT, CMP, KYLE, CBC #### [address] Protein [Mass/Vol] 5.4 g/dL Low 6.4-8.9 [facility] Comment on above: Performed By: #### H EMOCHROM, HAAB, HCBIGM, HCV RX PCR, HAABT, HBSAB, HBCAB, HBSAG, CERULOP, MITOM2, AFPTM, ALPHA PHEN, IGG, DYLAN, SMAB, L-K MICRO #### [facility] , #### PT, CMP, KYLE, CBC #### [address] Sodium [Moles/Vol] 134 mmol/L Low 136-145 [facility] Comment on above: Performed By: #### H EMOCHROM, HAAB, HCBIGM, HCV RX PCR, HAABT, HBSAB, HBCAB, HBSAG, CERULOP, MITOM2, AFPTM, ALPHA PHEN, IGG, DYLAN, SMAB, L-K MICRO #### [facility] , #### PT, CMP, KYLE, CBC #### [address] Urea nitrogen [Mass/Vol] 28 mg/dL High 7-25 [facility] Comment on above: Performed By: #### H EMOCHROM, HAAB, HCBIGM, HCV RX PCR, HAABT, HBSAB, HBCAB, HBSAG, CERULOP, MITOM2, AFPTM, ALPHA PHEN, IGG, DYLAN, SMAB, L-K MICRO #### [facility] , #### PT, CMP, KYLE, CBC #### [facility] [address] [place] [address] Creatinine [Mass/volume] in Serum or PlasmaOrdered By: Imad Asaad on 11-05-2024 Creatinine [Mass/Vol] Creatinine [Mass/v olume] in Serum or Plasma 0.70-1.30 [facility] Eosinophils Auto (Bld) [#/Vo l]Ordered By: Imad Asaad on 11-05-2024 Eosinophils (Bld) [#/Vol] Automated eosinophil count 0.0-0.45 [facility] Eosinophils/100 WBC Auto (Bl d)Ordered By: Imad Asaad on 11-05-2024 Eosinophils/100 WBC (Bld) Automated eosinophil % . [facility] Erythrocyte distribution wid th Auto (RBC) [Ratio]Ordered By: Imad Asaad on 11-05-2024 Erythrocyte distribution width (RBC) [Ratio] Erythrocyte distribution width [Ratio] by Automated count High 12.0-14.8 [facility] Ferritinon 11-05-2024 Ferritin [Mass/Vol] 1486.4 ng/mL High 23.9-336.2 [facility] Comment on above: Result Comment: PERF ORMED BY: [place] [address] PATHOLOGIST DRAWING INSTRUCTOR LEANDRA WALSH M.D. Performed By: #### H EMOCHROM, HAAB, HCBIGM, HCV RX PCR, HAABT, HBSAB, HBCAB, HBSAG, CERULOP, MITOM2, AFPTM, ALPHA PHEN, IGG, DYLAN, SMAB, L-K MICRO #### [facility] , #### PT, CMP, KYLE, CBC #### [facility] [address] Ferritin [Mass/volume] in Se rum or PlasmaOrdered By: [facility] on 11-05-2024 Ferritin [Mass/Vol] Ferritin [Mass/volum e] in Serum or Plasma High 23.9-336.2 [facility] Globulin Calc (S) [Mass/Vol] Ordered By: [facility] 11-05-2024 Globulin (S) [Mass/Vol] Serum globulin measurement by calculation (mass/volume) [facility] [facility] Glucose [Mass/volume] in Ser um or PlasmaOrdered By: [facility] on 11-05-2024 Glucose [Mass/Vol] Glucose [Mass/volume ] in Serum or Plasma High 70-100 [facility] Comment on above: ADA recommended refe rence rangeRandom Glucose Reference Range is dependent on time and content of last meal. Glucose of more than 200 mg/dL in a nonstressed, ambulatory subject supports the diagnosis of Diabetes Mellitus. Hematocrit Auto (Bld) [Volum e fraction]Ordered By: [facility] on 11-05-2024 Hematocrit (Bld) [Volume fraction] Hematocrit [Volume Fraction] of Blood by Automated count Low 38.8-50.0 [facility] Hemoglobin [Mass/volume] in BloodOrdered By: [facility] 11-05-2024 Hemoglobin (Bld) [Mass/Vol] Hemoglobin [Mass/volume] in Blood Low 13.0-17.0 [facility] Hep C Ab wRfx to Qnt PCRon 0 11-05-2024 Hepatitis C Virus Antibody Non-Reactive Normal Non Reactive [facility] Comment on above: Performed By: #### H EMOCHROM, HAAB, HCBIGM, HCV RX PCR, HAABT, HBSAB, HBCAB, HBSAG, CERULOP, MITOM2, AFPTM, ALPHA PHEN, IGG, DYLAN, SMAB, L-K MICRO #### [facility] , #### PT, CMP, KYLE, CBC #### [address] Interpretation Hepatitis C Comment Normal . [facility] Comment on above: Result Comment: [...] , #### PT, CMP, KYLE, CBC #### [address] Hepatitis A Antibody IgMon 0 11-05-2024 Hepatitis A Antibody IgM Negative Normal Negative [facility] Comment on above: Result Comment: A ne gative anti-HAV IgM result suggests no recent or current HAV infection. Performed By: #### H EMOCHROM, HAAB, HCBIGM, HCV RX PCR, HAABT, HBSAB, HBCAB, HBSAG, CERULOP, MITOM2, AFPTM, ALPHA PHEN, IGG, DYLAN, SMAB, L-K MICRO #### [facility] , #### PT, CMP, KYLE, CBC #### [address] Hepatitis A Antibody Totalon 11-05-2024 Hepatitis A Antibody Total Negative Normal Negative [facility] Comment on above: Result Comment: [...] total antibody results to IgM (e.g., panel #[id number] HAV Antibody w/ Rfx). Performed By: #### H EMOCHROM, HAAB, HCBIGM, HCV RX PCR, HAABT, HBSAB, HBCAB, HBSAG, CERULOP, MITOM2, AFPTM, ALPHA PHEN, IGG, DYLAN, SMAB, L-K MICRO #### [facility] , #### PT, CMP, KYLE, CBC #### [facility] [address] Hepatitis A virus Ab [Presen ce] in Serum by ImmunoassayOrdered By: Immatthew Rodgers on 11-05-2024 HAV Ab IA Ql (S) Hepatitis A virus Ab [Presence] in Serum by Immunoassay Negative [facility] Comment on above: Comment: The HAV [...] HAVtotal antibody results to IgM (e.g., panel #[id number] HAVAntibody w/ Rfx). Hepatitis A virus IgM antibo dy assayOrdered By: Immatthew Rodgers on 11-05-2024 Hepatitis A IgM Antibody Negative Negative [facility] Comment on above: A negative anti-HAV IgM result suggests no recent orcurrent HAV infection. Hepatitis B Core Antibodyon 11-05-2024 Hepatitis B Core Antibody Negative Normal Negative [facility] Comment on above: Performed By: #### H EMOCHROM, HAAB, HCBIGM, HCV RX PCR, HAABT, HBSAB, HBCAB, HBSAG, CERULOP, MITOM2, AFPTM, ALPHA PHEN, IGG, DYLAN, SMAB, L-K MICRO ####[facility] ,#### PT, CMP, KYLE, CBC ####[facility] Mnl[address] Hepatitis B Core Antibody Ig Mon 11-05-2024 Hepatitis B Core Antibody IgM Negative Normal Negative [facility] Comment on above: Result Comment: Perf ormed at: CB - [facility] [address] [id number] Roofing Subcontractor: Stewart Palmer PhD, Phone: [phone] Performed By: #### H EMOCHROM, HAAB, HCBIGM, HCV RX PCR, HAABT, HBSAB, HBCAB, HBSAG, CERULOP, MITOM2, AFPTM, ALPHA PHEN, IGG, DYLAN, SMAB, L-K MICRO #### [facility] , #### PT, CMP, KYLE, CBC #### [facility] [address] Hepatitis B Surface Antibody on 11-05-2024 Hepatitis B Surface Antibody Non-Reactive Normal . [facility] Comment on above: Result Comment: [...] MICRO ####[facility] ,#### PT, CMP, KYLE, CBC ####[address] Hepatitis B Surface Antigeno n 11-05-2024 HBsAg Screen Negative Normal Negative [facility] Comment on above: Result Comment: PERF ORMED BY: [facility] [address] [place] [address] PATHOLOGIST DRAWING INSTRUCTOR LEANDRA WALSH M.D. Performed By: #### H EMOCHROM, HAAB, HCBIGM, HCV RX PCR, HAABT, HBSAB, HBCAB, HBSAG, CERULOP, MITOM2, AFPTM, ALPHA PHEN, IGG, DYLAN, SMAB, L-K MICRO ####[facility] ,#### PT, CMP, KYLE, CBC ####[address] Hepatitis B virus core IgM a ntibody assayOrdered By: Derrek Rodgers on 11-05-2024 Hepatitis B Core IgM Antibody Negative Negative [facility] Comment on above: Performed at: [facility] [address] [id number] Director: Stewart Palmer PhD, Phone: [phone] Hepatitis B virus core antib sarai assayOrdered By: Derrek Rodgers on 11-05-2024 Hepatitis B Core Total Antibody Negative Negative [facility] Hepatitis C virus IgG Ab [Pr esence] in Serum or Plasma by ImmunoassayOrdered By: Juan Carlosmatthew Rodgers on 11-05-2024 HCV IgG IA Ql Hepatitis C virus Ig G Ab [Presence] in Serum or Plasma by Immunoassay Non Reactive [facility] Hereditary Hemochromatosis,D NAon 11-05-2024 Hereditary Hemochromatosis Comment Normal . [facility] Comment on above: Result Comment: Resu lt: c.845G>A (p.Ypt031Ewb) - Not Detected c.187C>G (p.Kek31Oja) - Not Detected c.193A>T (p.Fmg75Ilf) - Not Detected Not associated with increased [...] for patients who are homozygous for c.845G>A (p.Rmx724Hea) and have yet to experience clinical symptoms. Comments: The most common HFE variants associated with hereditary hemochromatosis are c.845G>A (p.Mzx933Jwz), c.187C>G (p.Fsu09Bas), c.193A>T (p.Duf44Wyv). While patients homozygous for c.845G>A (p.Gmd569Juw) are the most likely to present clinical symptoms, less than 10% develop clinically significant iron overload with tissue and organ damage. Genetic counseling is recommended to discuss the potential clinical implications of positive results, as well as recommendations for testing family members. Genetic Coordinators are available for health care providers to discuss results at [phone] ([phone]). Test Details: Three variants analyzed: c.845G>A (p.Myp714Jld), commonly referred to as C282Y c.187C>G (p.Njo88Dul), commonly referred to as H63D c.193A>T (p.Nuz14Gzb), commonly referred to as S65C Methods/Limitations: DNA [...] developed and its performance characteristics determined by [employer]. It has not been cleared or approved by the Food and Drug Administration. References: Rafa BR, Vel PC, Art KV, Wai LW, Nate ; [employer]. Diagnosis and management of hemochromatosis: 2011 practice guideline by the [employer]. Hepatology. 2010;54(1):328-43. doi: 10.1002/hep.28316. PMID: 02223954; PMCID: LAH9407023. Nigel G, Clay P, Fatoumata DW, Mervat H, Juan O, Alex S, Raulito I, Marv M, Jimbo Johns. [facility] best practice guidelines for the molecular genetic diagnosis of hereditary hemochromatosis (HH). Eur J Hum Neelima. 2016 Oct;24(4):479-95. doi: 10.1038/ejhg.2015.128. Epub 2014Feb 02. PMID: 20173042; PMCID: INZ3011419. Performed By: #### H EMOCHROM, HAAB, HCBIGM, HCV RX PCR, HAABT, HBSAB, HBCAB, HBSAG, CERULOP, MITOM2, AFPTM, ALPHA PHEN, IGG, DYLAN, SMAB, L-K MICRO #### [facility] , #### PT, CMP, KYLE, CBC #### [address] Reviewed by: Comment Normal . [facility] Comment on above: Result Comment: Tech nical Component performed at [facility] Professional Component performed by: Richa Cuba, Ph.D., FACMG Director, Molecular Genetics [address] [place] [address] [facility] [address] Performed at: - [facility] RTP [address] [place], [place] [id number] Roofing Subcontractor: Daryl L[facility], Phone: [phone] PERFORMED BY: [place] [address] PATHOLOGIST DRAWING INSTRUCTOR LEANDRA WALSH M.D. Performed By: #### H EMOCHROM, HAAB, HCBIGM, HCV RX PCR, HAABT, HBSAB, HBCAB, HBSAG, CERULOP, MITOM2, AFPTM, ALPHA PHEN, IGG, DYLAN, SMAB, L-K MICRO #### [facility] , #### PT, CMP, KYLE, CBC #### [address] INR in Platelet poor plasma by Coagulation assayOrdered By: Imad Asaad on 11-05-2024 INR Coag (PPP) [Relative time] INR in Platelet poor plasma by Coagulation assay [facility] Comment on above: INR Therapeutic Rang [...] Immunoglobulin G 1263 mg/dL Normal 603-1613 [facility] Comment on above: Result Comment: Perf ormed at: [address] [id number] Roofing Subcontractor: Stewart Palmer PhD, Phone: [phone] Performed By: #### H EMOCHROM, HAAB, HCBIGM, HCV RX PCR, HAABT, HBSAB, HBCAB, HBSAG, CERULOP, MITOM2, AFPTM, ALPHA PHEN, IGG, DYLAN, SMAB, L-K MICRO ####[facility] ,#### PT, CMP, KYLE, CBC ####[facility] Qea[address]4 [address] Leukocytes [#/volume] correc adrián for nucleated erythrocytes in Blood by Automated counOrdered By: Derrek Rodgers on 11-05-2024 WBC corrected for nucl RBC Auto (Bld) [#/Vol] Leukocytes [#/volume] corrected for nucleated erythrocytes in Blood by Automated coun 4.1-10.5 [facility] Liver-Kidney Microsomal Abon 11-05-2024 Liver-Kidney Microsomal Ab <1.0 Normal 0.0-20.0 [facility] Comment on above: Result Comment: Nega tive 0.0 - 20.0 Equivocal 20.1 - 24.9 Positive >24.9 LKM type 1 antibodies are detected in patients with autoimmune hepatitis type 2 and in up to 8% of patients with chronic HCV infection. Performed at: [address] [id number] Roofing Subcontractor: Stewart Palmer PhD, Phone: [phone] Performed By: #### H EMOCHROM, HAAB, HCBIGM, HCV RX PCR, HAABT, HBSAB, HBCAB, HBSAG, CERULOP, MITOM2, AFPTM, ALPHA PHEN, IGG, DYLAN, SMAB, L-K MICRO #### [facility] , #### PT, CMP, KYLE, CBC #### [facility] [address] Lymphocytes Auto (Bld) [#/Vo l]Ordered By: Imad Asaad on 11-05-2024 Lymphocytes (Bld) [#/Vol] Lymphocytes [#/volume] in Blood by Automated count Low 1.00-4.8 [facility] Lymphocytes/100 WBC Auto (Bl d)Ordered By: Imad Asaad on 11-05-2024 Lymphocytes/100 WBC (Bld) Lymphocytes/100 leukocytes in Blood by Automated count . [facility] MCH Auto (RBC) [Entitic mass ]Ordered By: Imad Asaad on 11-05-2024 MCH (RBC) [Entitic mass] MCH [Entitic mass] by Automated count 27.5-35.2 [facility] MCHC Auto (RBC) [Mass/Vol]Or dered By: ad Asaad on 11-05-2024 MCHC (RBC) [Mass/Vol] MCHC [Mass/volume] by Automated count 32.5-35.6 [facility] MCV Auto (RBC) [Entitic vol] Ordered By: ad Asaad on 11-05-2024 MCV (RBC) [Entitic vol] MCV [Entitic volume] by Automated count 83.5-101 [facility] Mitochondrial (M2) Antibodyo n 11-05-2024 Mitochondrial (M2) Antibody <20.0 Normal 0.0-20.0 [facility] Comment on above: Result Comment: Nega tive 0.0 - 20.0 Equivocal 20.1 - 24.9 Positive >24.9 Mitochondrial (M2) Antibodies are found in 90-96% of patients with primary biliary cirrhosis. Performed By: #### H EMOCHROM, HAAB, HCBIGM, HCV RX PCR, HAABT, HBSAB, HBCAB, HBSAG, CERULOP, MITOM2, AFPTM, ALPHA PHEN, IGG, DYLAN, SMAB, L-K MICRO ####[facility] ,#### PT, CMP, KYLE, CBC ####[facility] [address] [place] [id number] [facility] Monocytes Auto (Bld) [#/Vol] Ordered By: ad Asaad on 11-05-2024 Monocytes (Bld) [#/Vol] Automated blood monocyte count 0.0-0.8 [facility] Monocytes/100 WBC Auto (Bld) Ordered By: Imad Asaad on 11-05-2024 Monocytes/100 WBC (Bld) Automated monocyte % . [facility] Neutrophils Auto (Bld) [#/Vo l]Ordered By: Imad Asaad on 11-05-2024 Neutrophils (Bld) [#/Vol] Neutrophils [#/volume] in Blood by Automated count 1.8-7.7 [facility] Neutrophils/100 WBC Auto (Bl d)Ordered By: Imad Asaad on 11-05-2024 Neutrophils/100 WBC (Bld) Automated neutrophil % . [facility] No Panel InformationOrdered By: Imad Asaad on 11-05-2024 Estimated GFR (CKD-EPI) > 60.0 mL/Min [facility] Hemochromatosis Note Comment . [facility] Comment on above: Technical Component performed at [facility] RTPProfessional Component performed by:Richa Cuba, Ph.D., FACMGDirector, Molecular [id number] [facility] [id number] at: - [facility] OFP05[address] [place], [place] [id number] Director: Daryl L[facility], Phone: [phone] Hepatitis C Interpretation Comment . [facility] Comment on above: Not infected with HC V unless early or acute infection issuspected (which may be delayed in an immunocompromisedindividual), or other evidence exists to indicate HCVinfection. Pharmacy Creatinine Clearance (Chem N/A [facility] Nucleated erythrocytes [Pres ence] in Blood by Automated countOrdered By: Imad Asaad on 11-05-2024 Nucleated RBC Auto Ql (Bld) Nucleated erythrocytes [Presence] in Blood by Automated count 0-0.5 [facility] Platelet mean volume Auto (B ld) [Entitic vol]Ordered By: Imad Asaad on 11-05-2024 Platelet mean volume (Bld) [Entitic vol] Platelet mean volume [Entitic volume] in Blood by Automated count 6.6-10.1 [facility] Platelets Auto (Bld) [#/Vol] Ordered By: Imad Asaad on 11-05-2024 Platelets (Bld) [#/Vol] Platelets [#/volume] in Blood by Automated count 150-450 [facility] Potassium [Moles/volume] in Serum or PlasmaOrdered By: Imad Asaad on 11-05-2024 Potassium [Moles/Vol] Potassium [Moles/v olume] in Serum or Plasma 3.5-5.1 [facility] Protein [Mass/volume] in Ser um or PlasmaOrdered By: Imad Asaad on 11-05-2024 Protein [Mass/Vol] Protein [Mass/volume ] in Serum or Plasma Low 6.4-8.9 [facility] Prothrombin Time INRon 11-05 INR Coag (PPP) [Relative time] 1.2 {INR} Normal [facility] Comment on above: Result Comment: [...] heart valves: 3 - 4.5 PERFORMED BY: [place] [address] PATHOLOGIST DRAWING INSTRUCTOR LEANDRA WALSH M.D. Performed By: #### H EMOCHROM, HAAB, HCBIGM, HCV RX PCR, HAABT, HBSAB, HBCAB, HBSAG, CERULOP, MITOM2, AFPTM, ALPHA PHEN, IGG, DYLAN, SMAB, L-K MICRO #### [facility] , #### PT, CMP, KYLE, CBC #### [facility] [address] PT Coag (PPP) [Time] 13.4 s High 9.0-12.9 [facility] Comment on above: Result Comment: A he matocrit value greater than 55% may lead to inaccurate results in coagulation testing. Patients having hematocrit values >55% require a special collection tube for coagulation studies. Please contact the laboratory at [phone] for redraw instructions. Performed By: #### H EMOCHROM, HAAB, HCBIGM, HCV RX PCR, HAABT, HBSAB, HBCAB, HBSAG, CERULOP, MITOM2, AFPTM, ALPHA PHEN, IGG, DYLAN, SMAB, L-K MICRO #### [facility] , #### PT, CMP, KYLE, CBC #### [facility] [address] Prothrombin time (PT)Ordered By: Derrek Rodgers on 11-05-2024 PT Coag (PPP) [Time] Prothrombin time (PT) High 9.0- 12.9 [facility] Comment on above: A hematocrit value g reater than 55% may lead to inaccurate results in coagulation testing. Patients having hematocrit values >55% require a special collection tube for coagulation studies. Please contact the laboratory at [phone] for redraw instructions. RBC Auto (Bld) [#/Vol]Ordere d By: matthew Rodgers on 11-05-2024 RBC (Bld) [#/Vol] Erythrocytes [#/volu me] in Blood by Automated count Low 3.90-5.60 [facility] Serum hepatitis B virus surf jaimie antibody detectionOrdered By: matthew Melton 11-05-2024 HBV surface Ab Ql (S) Hepatitis B virus surface Ab [Presence] in Serum . [facility] Comment on above: Non Reactive: Not [...] Serum homogeneous pattern antinuclear antibody (DYLAN) titer [facility] Serum mitochondria M2 IgG an tibody assay (units/volume)Ordered By: [facility] 11-05-2024 Mitochondria M2 IgG Qn (S) Serum mitochondria M2 IgG antibody assay (units/volume) 0.0-20.0 [facility] Comment on above: Negative 0.0 - 20.0 Equivocal 20.1 - 24.9 Positive >24.9Mitochondrial (M2) Antibodies are found in 90-96% ofpatients with primary biliary cirrhosis. Serum nuclear antibody titer Ordered By: Derrek Rodgers on 11-05-2024 Nuclear Ab (S) [Titer] Serum nuclear ant ibody titer . [facility] Comment on above: Negative <1:80 Westley lynnine 1:80 Positive >1:80ICAP nomenclature: AC-0For more information about Hep-2 cell patterns useANApatterns.org, the official website for theInternational Consensus on Antinuclear Antibody (DYLAN)Patterns (ICAP).Performed at: [facility] - [facility] [address] [id number] Director: Stewart Palmer PhD, Phone: [phone] Serum or plasma IgG measurem ent (mass/volume)Ordered By: Derrek Rodgers on 11-05-2024 IgG [Mass/Vol] IgG [Mass/volume] in Serum or Plasma [phone] [facility] Comment on above: Performed at: [facility] [address] [id number] Director: Stewart Palmer PhD, Phone: [phone] Serum or plasma albumin/glob ulin mass ratioOrdered By: Derrek Rodgers on 11-05-2024 Albumin/Globulin [Mass ratio] Serum or plasma albumin/globulin mass ratio [facility] Serum or plasma alpha 1 anti trypsin measurement (mass/volume)Ordered By: matthew Rodgers on 11-05-2024 Alpha 1 antitrypsin [Mass/Vol] Serum lmnnf-0-wnndxdfozph measurement 101-187 [facility] Serum or plasma alpha 1 anti trypsin phenotyping identification by immunofixationOrdered By: Derrek Rodgers on 11-05-2024 Alpha 1 antitrypsin phenotyping Immunofixation Nom Serum or plasma alpha 1 antitrypsin phenotyping identification by immunofixation . [facility] Comment on above: MM Phenotype is co nsidered to be normal , producingnormal serum levels of qrrsc-8-obseooaf inhibitor andnot associated with clinical disease. Associated A6Zrbtvl serum levels in other phenotypes and theirincidence [...] reference. Ranges used to confirm phenotype.Performed at: [address] [id number] Director: Stewart Palmer PhD, Phone: [phone] at: [address] [id number] Director: Beto Vincent MD, Phone: [phone] Serum or plasma ejqcd-2-hvbe protein tumor marker measurement (mass/volume)Ordered By: Derrek Rodgers on 11-05-2024 AFP.tumor marker [Mass/Vol] Serum or plasma zoarq-5-vicnmilvsqa tumor marker measurement (mass/volume) High 0.0-8.4 [facility] Comment on above: [employer] El ectrochemiluminescence Immunoassay(ECLIA)Values obtained with different assay methods or kits cannotbe used interchangeably. Results cannot be interpreted asabsolute evidence of the presence or absence of malignantdisease.This test is not interpretable in females.Performed at: [facility] [employer] [id number] Director: Stewart Palmer PhD, Phone: [phone] Serum or plasma anion gap de terminationOrdered By: Derrek Rodgers on 11-05-2024 Anion gap [Moles/Vol] Serum or plasma an ion gap determination 6.0-15.0 [facility] Serum or plasma ceruloplasmi n measurement (mass/volume)Ordered By: Derrek Rodgers on 11-05-2024 Ceruloplasmin [Mass/Vol] Serum or plasma ceruloplasmin measurement (mass/volume) 16.0-31.0 [facility] Comment on above: Performed at: [facility] [address] [place], [place] [id number] Director: Stewart Palmer PhD, Phone: [phone] Serum or plasma hepatitis B virus surface antigen detection by immunoassayOrdered By: Imad Asaad on 11-05-2024 HBV surface Ag IA Ql Hepatitis B virus s urface Ag [Presence] in Serum or Plasma by Immunoassay Negative [facility] Serum or plasma lipoprotein a measurement (moles/volume)Ordered By: Imad Asaad on 11-05-2024 Lipoprotein a [Moles/Vol] Serum or plasma lipoprotein a measurement (moles/volume) 0.0-20.0 [facility] Comment on above: Negative 0.0 - 20.0 Equivocal 20.1 - 24.9 Positive >24.9LKM type 1 antibodies are detected in patients withautoimmune hepatitis type 2 and in up to 8% ofpatients with chronic HCV infection.Performed at: [facility] - [facility] [address] [id number] Director: Stewart Palmer PhD, Phone: [phone] Smooth Muscle Antibodyon Smooth Muscle Antibody 4 Normal 0-19 [facility] Comment on above: Result Comment: [...] MICRO ####[facility] ,#### PT, CMP, KYLE, CBC ####[facility] [address] [place] [address] [facility] Sodium [Moles/volume] in Ser um or PlasmaOrdered By: Imad Asaad on 11-05-2024 Sodium [Moles/Vol] Sodium [Moles/volume ] in Serum or Plasma Low 136-145 [facility] Urea nitrogen [Mass/volume] in Serum or PlasmaOrdered By: Immatthew Rodgers on 11-05-2024 Urea nitrogen [Mass/Vol] Urea nitrogen [Mass/volume] in Serum or Plasma High 7-25 [facility] WBC Auto (Bld) [#/Vol]Ordere d By: Imad Asaad on 11-05-2024 WBC (Bld) [#/Vol] Leukocytes [#/volume ] in Blood by Automated count 4.1-10.5 [facility] X-ray reportOrdered By: Wally Noland on 11-02-2024 Study report [facility] [place] [facility] [place] [address] XRay Report Signed Patient: Gerson Penn MR#: [id number] : 1955 Acct:[id number] Age/Sex: 68 / M ADM Date: 5 Loc: [facility] Room: Type: [facility] Attending Dr: Geoffrey Ibrahim DO Copies to: [...] Noland Jr., D.OBranden11/02/2024 2:57 PM Dictation Location: [place] [address] Transcribed By: [facility] 11/02/24 145 Dictated By: Gage Noland Jr, DO 11/02/24 1456 Signed By: 11/02/24 1457 [facility] XR elbow LT 2Von 11-02-2024 XR elbow LT 2V [facility] [place] [facility] [place] [address] XRay Report Signed Patient: Gerson Penn MR#: [id number] : 1955 Acct:[id number] Age/Sex: 68 / M ADM Date: 11/02/24 Loc: [facility] Room: Type: [facility] Attending Dr: Geoffrey Ibrahim DO Copies to: [...] Noland Jr., D.OBranden11/02/2024 2:57 PM Dictation Location: [place] [address] Transcribed By: [facility] 11/02/24 1457 Dictated By: Gage Noland Jr, DO 11/02/24 1456 Signed By: 11/02/24 1457 Normal [facility] Urine Cultureon 10-20-2024 Bacteria identified Cx Nom (U) ORGANISM: Enterobacter cloacae complex (O:ENTCLOCPLX) [place] Count >100,000 Aerobic LACHELLE Charge (NMIC56) [...] RESISTANT TO ALL B-LACTAM DRUGS. PERFORMED BY: [place] [address] PATHOLOGIST DRAWING INSTRUCTOR LEANDRA WALSH M.D. Normal [facility] Comment on above: Performed By: #### H EMOCHROM, HAAB, HCBIGM, HCV RX PCR, HAABT, HBSAB, HBCAB, HBSAG, CERULOP, MITOM2, AFPTM, ALPHA PHEN, IGG, DYLAN, SMAB, L-K MICRO #### [facility] , #### PT, CMP, KYLE, CBC #### [facility] [address] Urine cultureOrdered By: Marisol Ren on 10-20-2024 Bacteria identified Cx Nom (U) Abnormal [facility] X-ray reportOrdered By: Steven Rock on 10-07-2024 Study report [facility] [place] [facility] [address] [facility] [place] [place] [address] XRay Report Signed Patient: Gerson Penn MR#: [id number] : 1955 Acct:[id number] Age/Sex: 68 / M ADM Date: 5 Loc: [facility] Room: Type[facility] Attending Dr: Geoffrey Ibrahim DO Copies to: [...] Rock MD 10/07/241428 Signed By: 10/07/24 1430 [facility] Work Phone: XR elbow LT 2Von 10-07-2024 XR elbow LT 2V [facility] [address] [place] [address] XRay Report Signed Patient: Gerson Penn MR#: [id number] : 1955 Acct:[id number] Age/Sex: 68 / M ADM Date: 10/07/24 Loc: [facility] Room: [facility] Attending Dr: Geoffrey Ibrahim DO Copies to: [...] 10/07/241428 Signed By: 10/07/24 1430 Normal [facility] Glucose Glucometer (BldC) [M ass/Vol]Ordered By: Geoffrey Ibraihm on 09-22-2024 Glucose [Mass/Vol] Capillary blood gluc ose measurement by glucometer (mass/volume) [facility] Comment on above: Random Glucose Refer ence Range is dependent on time and content of last meal. Glucose of more than 200 mg/dL in a nonstressed, ambulatory subject supports the diagnosis of Diabetes Mellitus. Glucose Poct Glucometerson 0 09-22-2024 Commemt1 Glu2: Cleaned Meter Normal [facility] Comment on above: Result Comment: PERF ORMED BY: [address] [place] [address] PATHOLOGIST DRAWING INSTRUCTOR LEANDRA WALSH M.D. Performed By: #### H EMOCHROM, HAAB, HCBIGM, HCV RX PCR, HAABT, HBSAB, HBCAB, HBSAG, CERULOP, MITOM2, AFPTM, ALPHA PHEN, IGG, DYLAN, SMAB, L-K MICRO #### [facility] , #### PT, CMP, KYLE, CBC #### [address] Glucose [Mass/Vol] 115 mg/dL Normal [facility] Comment on above: Result Comment: [place] [facility] Glucose Reference Range is dependent on time and content of last meal. Glucose of more than 200 mg/dL in a nonstressed, ambulatory subject supports the diagnosis of Diabetes Mellitus. Performed By: #### H EMOCHROM, HAAB, HCBIGM, HCV RX PCR, HAABT, HBSAB, HBCAB, HBSAG, CERULOP, MITOM2, AFPTM, ALPHA PHEN, IGG, DYLAN, SMAB, L-K MICRO #### [facility] , #### PT, CMP, KYLE, CBC #### [facility] [address] [place] [address] [place] Glucose [Mass/Vol] 126 mg/dL Normal [facility] Comment on above: Result Comment: [place] [facility] Glucose Reference Range is dependent on time and content of last meal. Glucose of more than 200 mg/dL in a nonstressed, ambulatory subject supports the diagnosis of Diabetes Mellitus. PERFORMED BY: [address] [place] [address] PATHOLOGIST DRAWING INSTRUCTOR LEANDRA WALSH M.D. Performed By: #### H EMOCHROM, HAAB, HCBIGM, HCV RX PCR, HAABT, HBSAB, HBCAB, HBSAG, CERULOP, MITOM2, AFPTM, ALPHA PHEN, IGG, DYLAN, SMAB, L-K MICRO #### [facility] , #### PT, CMP, KYLE, CBC #### [facility] [address] [place] [address] [facility] 09-22-2024 L ------- Specimen: [id number] Received: 09/22/24 Status: ARYA Vargas Num: [id number] Spec Type: Surgical Subm Dr: Geoffrey Ibrahim DO Tissues: A Joint/Knee (LEFT ARM BONE AND TISSUE) Procedures: HE/2, Gross/Micro L4, Decalcification Age/ Patient Sex Location Account Attending Physician Gerson Penn/Christy [place] [id number] Geoffrey Ibrahim DO SPEC NUM: [id number] RECD: 09/22/24 STATUS: ARYA VARGAS NUM: [id number] NAE: 09/22/[address] [facility] [address]: Geoffrey Ibrahim DO ENTERED: 09/22/24 [facility] DR: ROSAS TYPE: Surgical DEPT: S ORDERED: [...] medullary bone is cordero, firm and uniform. Power Regulator sections are submitted in A1?A2 after decalcification in rapid Nicolas immuno. (2, , [id number] A)JACK Specimen: [id number] Received: 09/22/24 Status: ARYA Vargas Num: [id number] Spec Type: Surgical Subm Dr: Geoffrey Ibrahim DO Tissues: A Joint/Knee (LEFT ARM BONE AND TISSUE) Procedures: HE/2, Gross/Micro L4, Decalcification Patient: Gerson Penn [id number] (Continued) Specimen: Received: 09/22/24 (Continued) Signed (signature on file) Lino Coffman MD 09/25/24 1821 Specimen: [id number] Received: 09/22/24 Status: ARYA Vargas Num: [id number] Spec Type: Surgical Subm Dr: Geoffrey Ibrahim DO Tissues: A Joint/Knee (LEFT ARM BONE AND TISSUE) Procedures: HE/2, Gross/Micro L4, Decalcification Patient: Gerson Penn [id number] (Continued) Specimen: [id number] Received: 09/22/24 (Continued) Microscopic Description Microscopic examinations are performed supporting the above interpretation CPT Codes [id number] Specimen: [id number] Received: 09/22/24 Status: ARYA Vargas Num: [id number] Spec Type: Surgical Subm Dr: Geoffrey Ibrahim, Tissues: A Joint/Knee (LEFT ARM BONE AND TISSUE) Procedures: HE/2, Gross/Micro L4, Decalcification Patient: Gerson Penn [id number] (Continued) Signed (signature on file) Chin-Ari Coffman MD 09/25/24 182 Normal [facility] No Panel InformationOrdered By: Geoffrey Ibrahim on 09-22-2024 Bedside Glucose Comment Glu2: cleaned meter [facility] XR elbow LT min 3V*on 2024 XR elbow LT min 3V* [place] [address] XRay Report Signed Patient: Gerson Penn MR#: [id number] : 1955 Acct:[id number] Age/Sex: 68 / M ADM Date: 09/22/24 Loc: [place] Room: Type: [facility] Attending Dr: Geoffrey Ibrahim DO Copies to: [...] Clark Méndez M.D.09/22/2024 5:18 PM Dictation Location: [place] [address] Transcribed By: GODFREY 09/22/241717 Dictated By: Clark Méndez II, MD 09/22/241716 Signed By: 09/22/241717 Normal [facility] Alanine aminotransferase [En zymatic activity/volume] in Serum or PlasmaOrdered By: Geoffrey Ibrahim on 09-21-2024 ALT [Catalytic activity/Vol] Alanine aminotransferase [Enzymatic activity/volume] in Serum or Plasma High 7-52 [facility] Albumin [Mass/volume] in Ser um or Plasma by Bromocresol green (BCG) dye binding methoOrdered By: Geoffrey Ibrahim on 09-21-2024 Albumin BCG dye [Mass/Vol] Albumin [Mass/volume] in Serum or Plasma by Bromocresol green (BCG) dye binding metho Low 3.5-5.7 [facility] Alkaline phosphatase [Enzyma tic activity/volume] in Serum or PlasmaOrdered By: Geoffrey Ibrahim on 09-21-2024 ALP [Catalytic activity/Vol] Alkaline phosphatase [Enzymatic activity/volume] in Serum or Plasma High 34-104 [facility] Appearance of UrineOrdered B y: Geoffrey Ibrahim on 09-21-2024 Appearance (U) Urine appearance Clear [facility] Aspartate aminotransferase [ Enzymatic activity/volume] in Serum or PlasmaOrdered By: Geoffrey Ibrahim on 09-21-2024 AST [Catalytic activity/Vol] Aspartate aminotransferase [Enzymatic activity/volume] in Serum or Plasma High 13-39 [facility] Basophils Auto (Bld) [#/Vol] Ordered By: Geoffrey Ibrahim on 09-21-2024 Basophils (Bld) [#/Vol] Automated basophil count [facility] Basophils/100 WBC Auto (Bld) Ordered By: Geoffrey Ibrahim on 09-21-2024 Basophils/100 WBC (Bld) Automated basophil % [facility] Bilirubin Test strip Ql (U)O rdered By: Geoffrey Ibrahim on 09-21-2024 Bilirubin Ql (U) Bilirubin.total [Pre sence] in Urine by Test strip Negative [facility] Bilirubin.total [Mass/volume ] in Serum or PlasmaOrdered By: Geoffrey Ibrahim on 09-21-2024 Bilirubin [Mass/Vol] Bilirubin.total [Mass/volume] in Serum or Plasma High 0.3-1.0 [facility] Comment on above: Samples from patient [...] [Mass/volume] in Blood Estimated from glycated hemoglobin [facility] CMP with reflex to A1Con Albumin [Mass/Vol] 2.6 g/dL Low 3.5-5.7 [facility] Comment on above: Performed By: #### H EMOCHROM, HAAB, HCBIGM, HCV RX PCR, HAABT, HBSAB, HBCAB, HBSAG, CERULOP, MITOM2, AFPTM, ALPHA PHEN, IGG, DYLAN, SMAB, L-K MICRO #### [facility] , #### PT, CMP, KYLE, CBC #### [facility] [address] Albumin/Globulin [Mass ratio] 0.7 {ratio} Normal [facility] Comment on above: Performed By: #### H EMOCHROM, HAAB, HCBIGM, HCV RX PCR, HAABT, HBSAB, HBCAB, HBSAG, CERULOP, MITOM2, AFPTM, ALPHA PHEN, IGG, DYLAN, SMAB, L-K MICRO #### [facility] , #### PT, CMP, KYLE, CBC #### [facility] [address] ALP [Catalytic activity/Vol] 289 U/L High 34-104 [facility] Comment on above: Result Comment: PERF ORMED BY: [place] [address] PATHOLOGIST DRAWING INSTRUCTOR LEANDRA WALSH M.D. Performed By: #### H EMOCHROM, HAAB, HCBIGM, HCV RX PCR, HAABT, HBSAB, HBCAB, HBSAG, CERULOP, MITOM2, AFPTM, ALPHA PHEN, IGG, DYLAN, SMAB, L-K MICRO #### [facility] , #### PT, CMP, KYLE, CBC #### [address] ALT [Catalytic activity/Vol] 70 U/L High 7-52 [facility] Comment on above: Performed By: #### H EMOCHROM, HAAB, HCBIGM, HCV RX PCR, HAABT, HBSAB, HBCAB, HBSAG, CERULOP, MITOM2, AFPTM, ALPHA PHEN, IGG, DYLAN, SMAB, L-K MICRO #### [facility] , #### PT, CMP, KYLE, CBC #### [address] Anion gap [Moles/Vol] 10.6 mmol/L Normal 6.0-15.0 [facility] Comment on above: Performed By: #### H EMOCHROM, HAAB, HCBIGM, HCV RX PCR, HAABT, HBSAB, HBCAB, HBSAG, CERULOP, MITOM2, AFPTM, ALPHA PHEN, IGG, DYLAN, SMAB, L-K MICRO #### [facility] , #### PT, CMP, KYLE, CBC #### [address] AST [Catalytic activity/Vol] 143 U/L High 13-39 [facility] Comment on above: Performed By: #### H EMOCHROM, HAAB, HCBIGM, HCV RX PCR, HAABT, HBSAB, HBCAB, HBSAG, CERULOP, MITOM2, AFPTM, ALPHA PHEN, IGG, DYLAN, SMAB, L-K MICRO #### [facility] , #### PT, CMP, KYLE, CBC #### [address] Bilirubin [Mass/Vol] 1.8 mg/dL High 0.3-1.0 [facility] Comment on above: Result Comment: [...] , #### PT, CMP, KYLE, CBC #### [address] Calcium [Mass/Vol] 8.9 mg/dL Normal 8.6-10.3 [facility] Comment on above: Performed By: #### H EMOCHROM, HAAB, HCBIGM, HCV RX PCR, HAABT, HBSAB, HBCAB, HBSAG, CERULOP, MITOM2, AFPTM, ALPHA PHEN, IGG, DYLAN, SMAB, L-K MICRO #### [facility] , #### PT, CMP, KYLE, CBC #### [address] Chloride [Moles/Vol] 102 mmol/L Normal 98-107 [facility] Comment on above: Performed By: #### H EMOCHROM, HAAB, HCBIGM, HCV RX PCR, HAABT, HBSAB, HBCAB, HBSAG, CERULOP, MITOM2, AFPTM, ALPHA PHEN, IGG, DYLAN, SMAB, L-K MICRO #### [facility] , #### PT, CMP, KYLE, CBC #### [address] CO2 [Moles/Vol] 26.0 mmol/L Normal 21.0-31.0 [facility] Comment on above: Performed By: #### H EMOCHROM, HAAB, HCBIGM, HCV RX PCR, HAABT, HBSAB, HBCAB, HBSAG, CERULOP, MITOM2, AFPTM, ALPHA PHEN, IGG, DYLAN, SMAB, L-K MICRO #### [facility] , #### PT, CMP, KYLE, CBC #### [address] Creatinine [Mass/Vol] 1.24 mg/dL Normal 0.70-1.30 [facility] Comment on above: Performed By: #### H EMOCHROM, HAAB, HCBIGM, HCV RX PCR, HAABT, HBSAB, HBCAB, HBSAG, CERULOP, MITOM2, AFPTM, ALPHA PHEN, IGG, DYLAN, SMAB, L-K MICRO #### [facility] , #### PT, CMP, KYLE, CBC #### [address] GFR/1.73 sq M.predicted MDRD (S/P/Bld) [Vol rate/Area] mL/min/{1.73_m2} Normal [facility] Comment on above: Performed By: #### H EMOCHROM, HAAB, HCBIGM, HCV RX PCR, HAABT, HBSAB, HBCAB, HBSAG, CERULOP, MITOM2, AFPTM, ALPHA PHEN, IGG, DYLAN, SMAB, L-K MICRO #### [facility] , #### PT, CMP, KYLE, CBC #### [address] Globulin (S) [Mass/Vol] 3.5 g/dL Normal [facility] Comment on above: Performed By: #### H EMOCHROM, HAAB, HCBIGM, HCV RX PCR, HAABT, HBSAB, HBCAB, HBSAG, CERULOP, MITOM2, AFPTM, ALPHA PHEN, IGG, DYLAN, SMAB, L-K MICRO #### [facility] , #### PT, CMP, KYLE, CBC #### [address] Glucose [Mass/Vol] 114 mg/dL High 70-100 [facility] Comment on above: Result Comment: ADA recommended reference range Performed By: #### H EMOCHROM, HAAB, HCBIGM, HCV RX PCR, HAABT, HBSAB, HBCAB, HBSAG, CERULOP, MITOM2, AFPTM, ALPHA PHEN, IGG, DYLAN, SMAB, L-K MICRO #### [facility] , #### PT, CMP, KYLE, CBC #### [address] Potassium [Moles/Vol] 4.6 mmol/L Normal 3.5-5.1 [facility] Comment on above: Performed By: #### H EMOCHROM, HAAB, HCBIGM, HCV RX PCR, HAABT, HBSAB, HBCAB, HBSAG, CERULOP, MITOM2, AFPTM, ALPHA PHEN, IGG, DYLAN, SMAB, L-K MICRO #### [facility] , #### PT, CMP, KYLE, CBC #### [address] Protein [Mass/Vol] 6.1 g/dL Low 6.4-8.9 [facility] Comment on above: Performed By: #### H EMOCHROM, HAAB, HCBIGM, HCV RX PCR, HAABT, HBSAB, HBCAB, HBSAG, CERULOP, MITOM2, AFPTM, ALPHA PHEN, IGG, DYLAN, SMAB, L-K MICRO #### [facility] , #### PT, CMP, KYLE, CBC #### [address] Sodium [Moles/Vol] 134 mmol/L Low 136-145 [facility] Comment on above: Performed By: #### H EMOCHROM, HAAB, HCBIGM, HCV RX PCR, HAABT, HBSAB, HBCAB, HBSAG, CERULOP, MITOM2, AFPTM, ALPHA PHEN, IGG, DYLAN, SMAB, L-K MICRO #### [facility] , #### PT, CMP, KYLE, CBC #### [facility] [address] Urea nitrogen [Mass/Vol] 32 mg/dL High 7-25 [facility] Comment on above: Performed By: #### H EMOCHROM, HAAB, HCBIGM, HCV RX PCR, HAABT, HBSAB, HBCAB, HBSAG, CERULOP, MITOM2, AFPTM, ALPHA PHEN, IGG, DYLAN, SMAB, L-K MICRO #### [facility] , #### PT, CMP, KYLE, CBC #### [facility] [address] Calcium [Mass/volume] in Ser um or PlasmaOrdered By: Geoffrey Ibrahim on 09-21-2024 Calcium [Mass/Vol] Calcium [Mass/volume ] in Serum or Plasma 8.6-10.3 [facility] Carbon dioxide, total [Moles /volume] in Serum or PlasmaOrdered By: Geoffrey Ibrahim on 09-21-2024 CO2 [Moles/Vol] Carbon dioxide, tota l [Moles/volume] in Serum or Plasma 21.0-31.0 [facility] Chloride [Moles/volume] in S saud or PlasmaOrdered By: Geoffrey Ibrahim on 09-21-2024 Chloride [Moles/Vol] Chloride [Moles/vol ume] in Serum or Plasma 98-107 [facility] Color Auto (U)Ordered By: Claudia Ibrahim on 09-21-2024 Color (U) Color of Urine by Auto Yellow Fi [facility] Creatinine [Mass/volume] in Serum or PlasmaOrdered By: Geoffrey Ibrahim on 09-21-2024 Creatinine [Mass/Vol] Creatinine [Mass/v olume] in Serum or Plasma 0.70-1.30 [facility] Diff and CBCon 09-21-2024 Erythrocyte distribution width (RBC) [Ratio] 15.5 % High 12.0-14.8 [facility] Comment on above: Performed By: #### H EMOCHROM, HAAB, HCBIGM, HCV RX PCR, HAABT, HBSAB, HBCAB, HBSAG, CERULOP, MITOM2, AFPTM, ALPHA PHEN, IGG, DYLAN, SMAB, L-K MICRO #### [facility] , #### PT, CMP, KYLE, CBC #### [facility] [address] Hematocrit (Bld) [Volume fraction] 42.1 % Normal 38.8-50.0 [facility] Comment on above: Performed By: #### H EMOCHROM, HAAB, HCBIGM, HCV RX PCR, HAABT, HBSAB, HBCAB, HBSAG, CERULOP, MITOM2, AFPTM, ALPHA PHEN, IGG, DYLAN, SMAB, L-K MICRO #### [facility] , #### PT, CMP, KYLE, CBC #### [address] Hemoglobin (Bld) [Mass/Vol] 14.7 g/dL Normal 13.0-17.0 [facility] Comment on above: Performed By: #### H EMOCHROM, HAAB, HCBIGM, HCV RX PCR, HAABT, HBSAB, HBCAB, HBSAG, CERULOP, MITOM2, AFPTM, ALPHA PHEN, IGG, DYLAN, SMAB, L-K MICRO #### [facility] , #### PT, CMP, KYLE, CBC #### [address] Lymphocytes/100 WBC (Bld) 4 % Low 18-42 [facility] Comment on above: Performed By: #### H EMOCHROM, HAAB, HCBIGM, HCV RX PCR, HAABT, HBSAB, HBCAB, HBSAG, CERULOP, MITOM2, AFPTM, ALPHA PHEN, IGG, DYLAN, SMAB, L-K MICRO #### [facility] , #### PT, CMP, KYLE, CBC #### [address] MCH (RBC) [Entitic mass] 33.4 pg Normal 27.5-35.2 [facility] Comment on above: Performed By: #### H EMOCHROM, HAAB, HCBIGM, HCV RX PCR, HAABT, HBSAB, HBCAB, HBSAG, CERULOP, MITOM2, AFPTM, ALPHA PHEN, IGG, DYLAN, SMAB, L-K MICRO #### [facility] , #### PT, CMP, KYLE, CBC #### [address] MCV (RBC) [Entitic vol] 95.4 fL Normal 83.5-101 [facility] Comment on above: Performed By: #### H EMOCHROM, HAAB, HCBIGM, HCV RX PCR, HAABT, HBSAB, HBCAB, HBSAG, CERULOP, MITOM2, AFPTM, ALPHA PHEN, IGG, DYLAN, SMAB, L-K MICRO #### [facility] , #### PT, CMP, KYLE, CBC #### [address] Mean Corpuscular HGB Conc 35.0 g/dL Normal 32.5-35.6 [facility] Comment on above: Performed By: #### H EMOCHROM, HAAB, HCBIGM, HCV RX PCR, HAABT, HBSAB, HBCAB, HBSAG, CERULOP, MITOM2, AFPTM, ALPHA PHEN, IGG, DYLAN, SMAB, L-K MICRO #### [facility] , #### PT, CMP, KYLE, CBC #### [address] Monocytes/100 WBC (Bld) 9 % Normal 2-11 [facility] Comment on above: Performed By: #### H EMOCHROM, HAAB, HCBIGM, HCV RX PCR, HAABT, HBSAB, HBCAB, HBSAG, CERULOP, MITOM2, AFPTM, ALPHA PHEN, IGG, DYLAN, SMAB, L-K MICRO #### [facility] , #### PT, CMP, KYLE, CBC #### [address] Platelet Estimate Normal Normal Normal [facility] Comment on above: Performed By: #### H EMOCHROM, HAAB, HCBIGM, HCV RX PCR, HAABT, HBSAB, HBCAB, HBSAG, CERULOP, MITOM2, AFPTM, ALPHA PHEN, IGG, DYLAN, SMAB, L-K MICRO #### [facility] , #### PT, CMP, KYLE, CBC #### [address] Platelet mean volume (Bld) [Entitic vol] 7.8 fL Normal 6.6-10.1 [facility] Comment on above: Performed By: #### H EMOCHROM, HAAB, HCBIGM, HCV RX PCR, HAABT, HBSAB, HBCAB, HBSAG, CERULOP, MITOM2, AFPTM, ALPHA PHEN, IGG, DYLAN, SMAB, L-K MICRO #### [facility] , #### PT, CMP, KYLE, CBC #### [address] Platelet Morphology Normal Normal Normal [facility] Comment on above: Result Comment: PERF ORMED BY: [place] [address] PATHOLOGIST DRAWING INSTRUCTOR LEANDRA WALSH M.D. Performed By: #### H EMOCHROM, HAAB, HCBIGM, HCV RX PCR, HAABT, HBSAB, HBCAB, HBSAG, CERULOP, MITOM2, AFPTM, ALPHA PHEN, IGG, DYLAN, SMAB, L-K MICRO #### [facility] , #### PT, CMP, KYLE, CBC #### [address] Platelets (Bld) [#/Vol] 188 10*3/uL Normal 150-450 [facility] Comment on above: Performed By: #### H EMOCHROM, HAAB, HCBIGM, HCV RX PCR, HAABT, HBSAB, HBCAB, HBSAG, CERULOP, MITOM2, AFPTM, ALPHA PHEN, IGG, DYLAN, SMAB, L-K MICRO #### [facility] , #### PT, CMP, KYLE, CBC #### [address] RBC (Bld) [#/Vol] 4.42 10*6/uL Normal 3.90-5.60 [facility] Comment on above: Performed By: #### H EMOCHROM, HAAB, HCBIGM, HCV RX PCR, HAABT, HBSAB, HBCAB, HBSAG, CERULOP, MITOM2, AFPTM, ALPHA PHEN, IGG, DYLAN, SMAB, L-K MICRO #### [facility] , #### PT, CMP, KYLE, CBC #### [address] RBC morphology finding Nom (Bld) Normal Normal Normal [facility] Comment on above: Performed By: #### H EMOCHROM, HAAB, HCBIGM, HCV RX PCR, HAABT, HBSAB, HBCAB, HBSAG, CERULOP, MITOM2, AFPTM, ALPHA PHEN, IGG, DYLAN, SMAB, L-K MICRO #### [facility] , #### PT, CMP, KYLE, CBC #### [address] Segmented neutrophils/100 WBC (Bld) 87 % High 50-70 [facility] Comment on above: Performed By: #### H EMOCHROM, HAAB, HCBIGM, HCV RX PCR, HAABT, HBSAB, HBCAB, HBSAG, CERULOP, MITOM2, AFPTM, ALPHA PHEN, IGG, DYLAN, SMAB, L-K MICRO #### [facility] , #### PT, CMP, KYLE, CBC #### [address] WBC (Bld) [#/Vol] 5.4 10*3/uL Normal 4.1-10.5 [facility] Comment on above: Performed By: #### H EMOCHROM, HAAB, HCBIGM, HCV RX PCR, HAABT, HBSAB, HBCAB, HBSAG, CERULOP, MITOM2, AFPTM, ALPHA PHEN, IGG, DYLAN, SMAB, L-K MICRO #### [facility] , #### PT, CMP, KYLE, CBC #### [address] EBS A1C with Estimated [employer] hernándezjocelyn 09-21-2024 Glucose [Mass/Vol] 134 mg/dL Normal [facility] Comment on above: Result Comment: PERF ORMED BY: [place] [address] PATHOLOGIST DRAWING INSTRUCTOR LEANDRA WALSH M.D. Performed By: #### H EMOCHROM, HAAB, HCBIGM, HCV RX PCR, HAABT, HBSAB, HBCAB, HBSAG, CERULOP, MITOM2, AFPTM, ALPHA PHEN, IGG, DYLAN, SMAB, L-K MICRO #### [facility] , #### PT, CMP, KYLE, CBC #### [address] ECG 12 lead ECGon 09-21-2024 ECG 12 lead ECG [facility] [address] Electrocardiograph Report Signed Patient: Gerson Penn MR#: [id number] : 1955 Acct:[id number] Age/Sex: 68 / M ADM Date: 09/21/24 Loc: [place] Room: Type: [facility] Attending Dr: Geoffrey Ibrahim DO Ordering Provider: [...] When compared with ECG of 04-Oct-2012 08:47, [place] interval has decreased Confirmed by Taj Palm ([id number]) on 09/21/2024 8:57:00 AM Referred By: Electronically Signed By: Taj Palm Transcribed By: MUS Signed By Taj Palm MD 09/21/24 0829 Normal [facility] Eosinophils Auto (Bld) [#/Vo l]Ordered By: Geoffrey Ibrahim on 09-21-2024 Eosinophils (Bld) [#/Vol] Automated eosinophil count [facility] Eosinophils/100 WBC Auto (Bl d)Ordered By: Geoffrey Ibrahim on 09-21-2024 Eosinophils/100 WBC (Bld) Automated eosinophil % [facility] Erythrocyte distribution wid th Auto (RBC) [Ratio]Ordered By: Geoffrey Ibrahim on 09-21-2024 Erythrocyte distribution width (RBC) [Ratio] Erythrocyte distribution width [Ratio] by Automated count High 12.0-14.8 [facility] Erythrocyte morphology findi ng [Identifier] in BloodOrdered By: Geoffrey Ibrahim on 09-21-2024 RBC morphology finding Nom (Bld) RBC morphology Normal [facility] Globulin Calc (S) [Mass/Vol] Ordered By: Geoffrey Ibrahim on 09-21-2024 Globulin (S) [Mass/Vol] Serum globulin measurement by calculation (mass/volume) [facility] Glucose [Mass/volume] in Ser um or PlasmaOrdered By: Geoffrey Ibrahim on 09-21-2024 Glucose [Mass/Vol] Glucose [Mass/volume ] in Serum or Plasma High 70-100 [facility] Comment on above: ADA recommended refe rence range Glucose [Mass/volume] in Uri ne by Test stripOrdered By: Geoffrey Ibrahim on 09-21-2024 Glucose Test strip (U) [Mass/Vol] Glucose [Mass/volume] in Urine by Test strip Normal [facility] Hematocrit Auto (Bld) [Volum e fraction]Ordered By: Geoffrey Ibrahim on 09-21-2024 Hematocrit (Bld) [Volume fraction] Hematocrit [Volume Fraction] of Blood by Automated count 38.8-50.0 [facility] Hemoglobin A1c measurementOr dered By: Geoffrey Ibrahim on 09-21-2024 HbA1c (Bld) [Mass fraction] 6.3 % High 4.3-5.6 [facility] Comment on above: Increased risk for [...] , #### PT, CMP, KYLE, CBC #### [facility] [address] [place] [address] Hemoglobin Test strip Ql (U) Ordered By: Geoffrey Ibrahim on 09-21-2024 Hemoglobin Ql (U) Hemoglobin [Presence ] in Urine by Test strip Negative [facility] Hemoglobin [Mass/volume] in BloodOrdered By: Geoffrey Ibrahim on 09-21-2024 Hemoglobin (Bld) [Mass/Vol] Hemoglobin [Mass/volume] in Blood 13.0-17.0 [facility] Ketones Test strip Ql (U)Ord ered By: Geoffrey Ibrahim on 09-21-2024 Ketones Ql (U) Ketones [Presence] i n Urine by Test strip Negative [facility] Leukocyte esterase [Presence ] in Urine by Test stripOrdered By: Geoffrey Ibrahim on 09-21-2024 Leukocyte esterase Test strip Ql (U) Leukocyte esterase [Presence] in Urine by Test strip Negative [facility] Leukocytes [#/volume] correc adrián for nucleated erythrocytes in Blood by Automated counOrdered By: Geoffrey Ibrahim on 09-21-2024 WBC corrected for nucl RBC Auto (Bld) [#/Vol] Leukocytes [#/volume] corrected for nucleated erythrocytes in Blood by Automated coun 4.1-10.5 [facility] Lymphocytes Auto (Bld) [#/Vo l]Ordered By: Geoffrey Ibrahim on 09-21-2024 Lymphocytes (Bld) [#/Vol] Lymphocytes [#/volume] in Blood by Automated count [facility] Lymphocytes/100 WBC Auto (Bl d)Ordered By: Geoffrey Ibrahim on 09-21-2024 Lymphocytes/100 WBC (Bld) Lymphocytes/100 leukocytes in Blood by Automated count [facility] Lymphocytes/100 WBC Manual c nt (Bld)Ordered By: Geoffrey Ibrahim on 09-21-2024 Lymphocytes/100 WBC (Bld) Lymphocytes/100 leukocytes in Blood by Manual count Low 18-42 [facility] MCH Auto (RBC) [Entitic mass ]Ordered By: Geoffrey Ibrahim on 09-21-2024 MCH (RBC) [Entitic mass] MCH [Entitic mass] by Automated count 27.5-35.2 [facility] MCHC Auto (RBC) [Mass/Vol]Or dered By: Geoffrey Ibrahim on 09-21-2024 MCHC (RBC) [Mass/Vol] MCHC [Mass/volume] by Automated count 32.5-35.6 [facility] MCV Auto (RBC) [Entitic vol] Ordered By: Geoffrey Ibrahim on 09-21-2024 MCV (RBC) [Entitic vol] MCV [Entitic volume] by Automated count 83.5-101 [facility] Monocytes Auto (Bld) [#/Vol] Ordered By: Geoffrey Ibrahim on 09-21-2024 Monocytes (Bld) [#/Vol] Automated blood monocyte count [facility] Monocytes/100 WBC Auto (Bld) Ordered By: Geoffrey Ibrahim on 09-21-2024 Monocytes/100 WBC (Bld) Automated monocyte % [facility] Monocytes/100 WBC Manual cnt (Bld)Ordered By: Geoffrey Ibrahim on 09-21-2024 Monocytes/100 WBC (Bld) Monocytes/100 leukocytes in Blood by Manual count 2-11 [facility] Neutrophils Auto (Bld) [#/Vo l]Ordered By: Geoffrey Ibrahim on 09-21-2024 Neutrophils (Bld) [#/Vol] Neutrophils [#/volume] in Blood by Automated count [facility] Neutrophils/100 WBC Auto (Bl d)Ordered By: Geoffrey Ibrahim on 09-21-2024 Neutrophils/100 WBC (Bld) Automated neutrophil % [facility] Nitrite Test strip Ql (U)Ord ered By: Geoffrey Ibrahim on 09-21-2024 Nitrite Ql (U) Nitrite [Presence] i n Urine by Test strip Negative [facility] No Panel InformationOrdered By: Geoffrey Ibrahim on 09-21-2024 Estimated GFR (CKD-EPI) > 60.0 mL/Min [facility] Creatinine Clearance (Chem N/A [facility] Nucleated erythrocytes [Pres ence] in Blood by Automated countOrdered By: Geoffrey Ibrahim on 09-21-2024 Nucleated RBC Auto Ql (Bld) Nucleated erythrocytes [Presence] in Blood by Automated count [facility] Platelet adequacy [Presence] in Blood by Light microscopyOrdered By: Geoffrey Ibrahim on 09-21-2024 Platelets LM Ql (Bld) Platelet adequacy [Presence] in Blood by Light microscopy Normal [facility] Platelet mean volume Auto (B ld) [Entitic vol]Ordered By: Geoffrey Ibrahim on 09-21-2024 Platelet mean volume (Bld) [Entitic vol] Platelet mean volume [Entitic volume] in Blood by Automated count 6.6-10.1 [facility] Platelet morphology finding [Identifier] in BloodOrdered By: Geoffrey Ibrahim on 09-21-2024 Platelet morphology finding Nom (Bld) Platelet morphology finding [Identifier] in Blood Normal [facility] Platelets Auto (Bld) [#/Vol] Ordered By: Geoffrey Ibrahim on 09-21-2024 Platelets (Bld) [#/Vol] Platelets [#/volume] in Blood by Automated count 150-450 [facility] Potassium [Moles/volume] in Serum or PlasmaOrdered By: Geoffrey Ibrahim on 09-21-2024 Potassium [Moles/Vol] Potassium [Moles/v olume] in Serum or Plasma 3.5-5.1 [facility] Protein Test strip (U) [Mass /Vol]Ordered By: Geoffrey Ibrahim on 09-21-2024 Protein (U) [Mass/Vol] Protein [Mass/vol ume] in Urine by Test strip Negative [facility] Protein [Mass/volume] in Ser um or PlasmaOrdered By: Geoffrey Ibrahim on 09-21-2024 Protein [Mass/Vol] Protein [Mass/volume ] in Serum or Plasma Low 6.4-8.9 [facility] RBC Auto (Bld) [#/Vol]Ordere d By: Geoffrey Ibrahim on 09-21-2024 RBC (Bld) [#/Vol] Erythrocytes [#/volu me] in Blood by Automated count 3.90-5.60 [facility] Segmented neutrophils/100 WB C Manual cnt (Bld)Ordered By: Geoffrey Ibrahim on 09-21-2024 Segmented neutrophils/100 WBC (Bld) Manual blood segmented neutrophils/100 leukocytes High 50-70 [facility] Serum or plasma albumin/glob ulin mass ratioOrdered By: Geoffrey Ibrahim on 09-21-2024 Albumin/Globulin [Mass ratio] Serum or plasma albumin/globulin mass ratio [facility] Serum or plasma anion gap de terminationOrdered By: Geoffrey Ibrahim on 09-21-2024 Anion gap [Moles/Vol] Serum or plasma an ion gap determination 6.0-15.0 [facility] Sodium [Moles/volume] in Ser um or PlasmaOrdered By: Geoffrey Ibrahim on 09-21-2024 Sodium [Moles/Vol] Sodium [Moles/volume ] in Serum or Plasma Low 136-145 [facility] Specific gravity Test strip (U) [Rel density]Ordered By: Geoffrey Ibrahim on 09-21-2024 Specific gravity (U) [Rel density] Specific gravity of Urine by Test strip 1.001-1.03 0 [facility] Urea nitrogen [Mass/volume] in Serum or PlasmaOrdered By: Geoffrey Ibrahim on 09-21-2024 Urea nitrogen [Mass/Vol] Urea nitrogen [Mass/volume] in Serum or Plasma High 7-25 [facility] Urinalysison 09-21-2024 Appearance (U) Clear Normal Clear [facility] Comment on above: Order Comment: Name Collection Type:: Clean-Voided Midstream Performed By: #### H EMOCHROM, HAAB, HCBIGM, HCV RX PCR, HAABT, HBSAB, HBCAB, HBSAG, CERULOP, MITOM2, AFPTM, ALPHA PHEN, IGG, DYLAN, SMAB, L-K MICRO #### [facility] , #### PT, CMP, KYLE, CBC #### [address] Bilirubin,Urine Negative Normal Negative [facility] Comment on above: Order Comment: Name Collection Type:: Clean-Voided Midstream Performed By: #### H EMOCHROM, HAAB, HCBIGM, HCV RX PCR, HAABT, HBSAB, HBCAB, HBSAG, CERULOP, MITOM2, AFPTM, ALPHA PHEN, IGG, DYLAN, SMAB, L-K MICRO #### [facility] , #### PT, CMP, KYLE, CBC #### [address] Color (U) Yellow Normal Yellow [facility] Comment on above: Order Comment: Name Collection Type:: Clean-Voided Midstream Performed By: #### H EMOCHROM, HAAB, HCBIGM, HCV RX PCR, HAABT, HBSAB, HBCAB, HBSAG, CERULOP, MITOM2, AFPTM, ALPHA PHEN, IGG, DYLAN, SMAB, L-K MICRO #### [facility] , #### PT, CMP, KYLE, CBC #### [address] Glucose Ql (U) Normal Normal Normal [facility] Comment on above: Order Comment: Name Collection Type:: Clean-Voided Midstream Performed By: #### H EMOCHROM, HAAB, HCBIGM, HCV RX PCR, HAABT, HBSAB, HBCAB, HBSAG, CERULOP, MITOM2, AFPTM, ALPHA PHEN, IGG, DYLAN, SMAB, L-K MICRO #### [facility] , #### PT, CMP, KYLE, CBC #### [address] Ketones Ql (U) Negative Normal Negative [facility] Comment on above: Order Comment: Name Collection Type:: Clean-Voided Midstream Performed By: #### H EMOCHROM, HAAB, HCBIGM, HCV RX PCR, HAABT, HBSAB, HBCAB, HBSAG, CERULOP, MITOM2, AFPTM, ALPHA PHEN, IGG, DYLAN, SMAB, L-K MICRO #### [facility] , #### PT, CMP, KYLE, CBC #### [address] Leukocyte esterase Test strip Ql (U) Negative Normal Negative [facility] Comment on above: Order Comment: Name Collection Type:: Clean-Voided Midstream Performed By: #### H EMOCHROM, HAAB, HCBIGM, HCV RX PCR, HAABT, HBSAB, HBCAB, HBSAG, CERULOP, MITOM2, AFPTM, ALPHA PHEN, IGG, DYLAN, SMAB, L-K MICRO #### [facility] , #### PT, CMP, KYLE, CBC #### [address] Nitrite,Urine Negative Normal Negative [facility] Comment on above: Order Comment: Name Collection Type:: Clean-Voided Midstream Performed By: #### H EMOCHROM, HAAB, HCBIGM, HCV RX PCR, HAABT, HBSAB, HBCAB, HBSAG, CERULOP, MITOM2, AFPTM, ALPHA PHEN, IGG, DYLAN, SMAB, L-K MICRO #### [facility] , #### PT, CMP, KYLE, CBC #### [address] Occult Blood,Urine Negative Normal Negative [facility] Comment on above: Order Comment: Name Collection Type:: Clean-Voided Midstream Result Comment: PERF ORMED BY: [place] [address] PATHOLOGIST DRAWING INSTRUCTOR LEANDRA WALSH M.D. Performed By: #### H EMOCHROM, HAAB, HCBIGM, HCV RX PCR, HAABT, HBSAB, HBCAB, HBSAG, CERULOP, MITOM2, AFPTM, ALPHA PHEN, IGG, DYLAN, SMAB, L-K MICRO #### [facility] , #### PT, CMP, KYEL, CBC #### [address] pH (U) 6.0 [pH] Normal 5.0-9.0 [facility] Comment on above: Order Comment: Name Collection Type:: Clean-Voided Midstream Performed By: #### H EMOCHROM, HAAB, HCBIGM, HCV RX PCR, HAABT, HBSAB, HBCAB, HBSAG, CERULOP, MITOM2, AFPTM, ALPHA PHEN, IGG, DYLAN, SMAB, L-K MICRO #### [facility] , #### PT, CMP, KYLE, CBC #### [address] Protein,Urine Negative Normal Negative [facility] Comment on above: Order Comment: Name Collection Type:: Clean-Voided Midstream Performed By: #### H EMOCHROM, HAAB, HCBIGM, HCV RX PCR, HAABT, HBSAB, HBCAB, HBSAG, CERULOP, MITOM2, AFPTM, ALPHA PHEN, IGG, DYLAN, SMAB, L-K MICRO #### [facility] , #### PT, CMP, KYLE, CBC #### [address] Specificy [place],Urine 1.014 Normal 1.001-1.03 0 [facility] Comment on above: Order Comment: Name Collection Type:: Clean-Voided Midstream Performed By: #### H EMOCHROM, HAAB, HCBIGM, HCV RX PCR, HAABT, HBSAB, HBCAB, HBSAG, CERULOP, MITOM2, AFPTM, ALPHA PHEN, IGG, DYLAN, SMAB, L-K MICRO #### [facility] , #### PT, CMP, KYLE, CBC #### [facility] [address] Urobilinogen,Urine Normal Normal Normal [facility] Comment on above: Order Comment: Name Collection Type:: Clean-Voided Midstream Performed By: #### H EMOCHROM, HAAB, HCBIGM, HCV RX PCR, HAABT, HBSAB, HBCAB, HBSAG, CERULOP, MITOM2, AFPTM, ALPHA PHEN, IGG, DYLAN, SMAB, L-K MICRO #### [facility] , #### PT, CMP, KYLE, CBC #### [facility] [address] Urobilinogen Test strip (U) [Mass/Vol]Ordered By: Geofrfey Ibrahim on 09-21-2024 Urobilinogen (U) [Mass/Vol] Urobilinogen [Mass/volume] in Urine by Test strip Normal [facility] WBC Auto (Bld) [#/Vol]Ordere d By: Geoffrey Ibrahim on 09-21-2024 WBC (Bld) [#/Vol] Leukocytes [#/volume ] in Blood by Automated count 4.1-10.5 [facility] pH Test strip (U)Ordered By: Geoffrey Ibrahim on 09-21-2024 pH (U) pH of Urine by Test strip 5.0-9.0 [facility] BASIC METABOLIC PANELon 10-1 Anion gap [Moles/Vol] 9 mmol/L Normal 7-20 [facility] Comment on above: Performed By: #### L AB15 ####[facility] (BEAKER)[address] [place] [address] Calcium [Mass/Vol] 6.9 mg/dL Low 8.6-10.3 [facility] Comment on above: Performed By: #### L AB15 ####[facility] ([facility]ER)[address] [place] [address] Chloride [Moles/Vol] 110 mmol/L High 98-107 [facility] Comment on above: Performed By: #### L AB15 ####[facility] ([facility]ER)[address] [place] [address] CO2 [Moles/Vol] 22 mmol/L Normal 21-31 [facility] Comment on above: Performed By: #### L AB15 ####[facility] [place] [address] Creatinine [Mass/Vol] 1.04 mg/dL Normal 0.70-1.30 [facility] Comment on above: Performed By: #### L AB15 ####[facility] ([facility])[address] [place] [address] GLOMERULAR FILTRATION RATE ML/MIN/1.73 SQ M.PREDICTED 79.2 mL/min/1.73m*2 Normal >60.0 [facility] Comment on above: Result Comment: [facility]???s estimated glomerular filtration rate (eGFR) will [...] of individuals. Performed By: #### L AB15 ####[facility] ([facility] [place] [address] Glucose [Mass/Vol] 86 mg/dL Normal 70-100 [facility] Comment on above: Performed By: #### L AB15 ####[facility] ([facility] [place] [address] Potassium [Moles/Vol] 3.9 mmol/L Normal 3.5-5.1 [facility] Comment on above: Performed By: #### L AB15 ####[facility] ([facility] [place] [address] Sodium [Moles/Vol] 137 mmol/L Normal 136-145 [facility] Comment on above: Performed By: #### L AB15 ####[facility] ([facility]ER)[address] [place] [address] Urea nitrogen [Mass/Vol] 32 mg/dL High 7-25 [facility] Comment on above: Performed By: #### L AB15 ####[facility] ([facility]ER)[address] [place] [address] UREA NITROGEN/CREATININE (MASS RATIO) IN SER/PLAS 30.8 Normal [facility] Comment on above: Performed By: #### L AB15 ####[facility] (BEJM)[address] [place] [address] HPon 05-14-2024 HP ------- Attestation signed by [...] possible PCI. Joyce Rodrigues MD PGY-7 Interventional Hot End Operator [facility] NURSNOTEon 05-14-2024 NURSNOTE Patient okay to disc harge at [address] Otero. [facility] NURSNOTE RN educated pt on d/ c instructions. This included: site care, limited physical activity, resume normal diet, future appointments, medications, and moderate sedation instructions. RN educated pt on when to notify physician and when to go to the hospital. RN encouraged pt to voice any questions or concerns, and answered any questions or concerns if pt verbalized. [facility] NURSNOTE Dr. Aparicio notifi ed of normal creatnine result. states pt ok for early discharge at 2:30 and no need to continue IVF. [facility] Orders Onlyon 05-04-2024 Orders Only [id number] Chencho Penn 1955 Date Provider Department Center 05/04/2024 ERMA JUNE [facility] Family History Problem Relation Age of Onset Colon cancer Mother Coronary artery disease Father Cancer Brother Family Status - Relation Status Age at Mother Father Brother [facility] CREATININE, SERUMon 05-01-20 24 Creatinine [Mass/Vol] 1.45 mg/dL High 0.70-1.[address] [facility] [address] [facility] Comment on above: Performed By: #### L AB383 ####[facility] ([facility]ER)[address] [place] [address] GLOMERULAR FILTRATION RATE ML/MIN/1.73 SQ M.PREDICTED 53.1 mL/min/1.73m*2 Low >60.0 [facility] Comment on above: Result Comment: [facility]???s estimated glomerular filtration rate (eGFR) will [...] of individuals. Performed By: #### L AB383 ####[facility] ([facility]AKER)[address] [place] [address] CTA HEART CORONARY W IV CONT Luh [...] Condon MD. Not Vldtd Invalid Interpretation Code [facility] Labon 05-01-2024 Lab [id number] Chencho Penn 1955 M Date Provider Department [facility] 05/01/2024 2246-[facility] OPD LAB RESOURCE [facility] OPD [place] Medical C Family History Problem Relation Age of Onset Colon cancer Mother Coronary artery disease Father Cancer Brother Family Status - Relation Status Age at Mother Father Brother Normal [facility] 04-29-2024 [facility] Cardiology - [facility] Gerson Goodwinell is a 68 y.o. 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 Normal [facility] Office Visiton 04-29-2024 Follow-up visit [id number] Chencho Penn 1955 M Date Provider Department Center 04/29/2024 [facility] Family History Problem Relation Age of Onset Colon cancer Mother Coronary artery disease Father Cancer Brother Family Status - Relation Status Age at Mother Father Brother Level of Service:26030 OK OFFICE/OP CONSLTJ NEW/EST PT MOD MDM 40 MINUTES [facility] [place] 04-18-2023 Consent [id number]#1.00CD:127 [facility] In office Testingon 04-18-20 23 In office Testing [id number]#1.00CD:127 [facility] Registrationon 04-18-2023 Registration [id number]#1.00CD:127 [facility] In office Testingon 03-15-20 23 In office Testing [id number]#1.00CD:127 [facility] [place] 03-08-2023 Consent [id number]#1.00CD:127 [facility] Registrationon 03-08-2023 Registration [id number]#1.00CD:127 [facility] In office Testingon 02-06-20 23 In office Testing [id number]#1.00CD:127 [facility] [place] 02-04-2023 Consent [id number]#1.00CD:127 [facility] Registrationon 02-04-2023 Registration [id number]#1.00CD:127 [facility] Patient Correspondenceon Patient Correspondence [id number]#1.00CD:127 [facility] Physician Referralon 023 Physician Referral [id number]#1.00CD:127 [facility] Physician Referral [id number]#1.00CD:127 [facility] [place] 11-09-2022 Consent [id number]#1.00CD:127 [facility] In office Testingon 11-10-19 23 In office Testing [id number]#1.00CD:127 [facility] Registrationon 11-09-2022 Registration [id number]#1.00CD:127 [facility] [place] 07-27-2022 Consent [id number]#1.00CD:127 [facility] Registrationon 07-27-2022 Registration [id number]#1.00CD:127 [facility] [place] 07-09-2022 Consent [id number]#1.00CD:127 [facility] In office Testingon 07-09-20 22 In office Testing [id number]#1.00CD:127 [facility] Registrationon 07-09-2022 Registration [id number]#1.00CD:127 [facility] In office Testingon 12-09-20 22 In office Testing [id number]#1.00CD:127 Normal [facility] GLYCOHEMOGLOBIN A1Con 2021 ADA RECOMMENDATION SEE BELOW Normal [facility] Comment on above: Result Comment: ADA RECOMMENDED LIMIT 4.0 - 6.0 ADA THERAPEUTIC TARGET < 7.0 ACTION SUGGESTED > 7.0 Performed By: #### A 1C #### [facility] [address] [place] [address] Dr. Sandor Coffman Glucose [Mass/Vol] 140 mg/dL Normal [facility] Comment on above: Performed By: #### A 1C #### [facility] [address] [place] [address] Dr. Sandor Coffman HbA1c (Bld) [Mass fraction] 6.5 % Critically high 4.5-6.2 [facility] Comment on above: Performed By: #### A 1C #### [facility] [address] [place] [address] Dr. Sandor Coffman Registrationon 05-01-2022 Registration [id number]#1.00CD:127 Normal [facility] [place] 04-27-2022 Consent [id number]#1.00CD:127 Normal [facility] HIP LEFT 1 OR 2 VWS WITH PEL VISon 08-27-2019 HIP LEFT 1 OR 2 VWS WITH PELVIS [facility] Department of Radiology [address] [place] [id number] Patient Name: GERSON PENN : 1955 Sex: M Age: Race: White Pt. Location: Patient Status: Ordered Date: 08/27/2019 9:45:00 AM Completed Date: 08/27/2019 09:44 AM Requesting Provider: LIZET LOVELACE Attending Provider: Report Copy To: Signs & Symptoms: Z96.642 Presence of left artificial hip joint I10 History: [place] Comments: , Views (X-RAY, HIP): Radiologic Protocol [...] above. Electronically signed: David Sanford. Transcribed by: [email or web address], User Resident: Electronically Signed by: DAVID SANFORD @ 08/27/2019 01:52 PM Normal [facility] Comment on above: Order Comment: , Alex ws (X-RAY, HIP): Radiologic Protocol , Views (X-RAY, HIP): Radiologic Protocol , , , Ordering Provider - LIZET LOVELACE MD , HIP LEFT 1 OR 2 VWS WITH PEL VISon 06-18-2019 HIP LEFT 1 OR 2 VWS WITH PELVIS [facility] Department of Radiology [address] [place] [phone] Patient Name: GERSON PENN : 1955 [...] loosening Electronically signed by:Carlos Cameron. Transcribed by: [email or web address], User Resident: Electronically Signed by: CARLOS CAMERON @ 06/18/2019 02:11 PM Normal [facility] Comment on above: Order Comment: , Heidie ws (X-RAY, HIP): Radiologic Protocol , Views (X-RAY, HIP): Radiologic Protocol , , , Ordering Provider - LIZET LOVELACE MD , Vital Signs Date Time Vital Sign Value Performing Clinician Mauliki sonal 11-05-2024 10:19-0400 Diastolic blood pressure 62 mm[Hg] Peggy Muñoz MD Work Phone: [facility] 11-05-2024 10:19-0400 Heart rate 73 /min Peggy Muñoz MD Work Phone: [facility] 11-05-2024 10:19-0400 Systolic blood pressure 141 mm[Hg] Peggy Muñoz MD Work Phone: [facility] 09-22-2024 16:40-0500 Diastolic blood pressure 68 mm[Hg] Peggy Muñoz MD Work Phone: [facility] 09-22-2024 16:40-0500 Heart rate 73 /min Peggy Muñoz MD Work Phone: [facility] 09-22-2024 16:40-0500 Respiratory rate 16 /min Peggy Muñoz MD Work Phone: [facility] 09-22-2024 16:40-0500 SaO2% (BldA) [Mass fraction] 92 % Peggy Muñoz MD Work Phone: [facility] 09-22-2024 16:40-0500 Systolic blood pressure 145 mm[Hg] Peggy Muñoz MD Work Phone: [facility] 09-22-2024 15:55-0500 Body temperature 97.4 [degF] Peggy Muñoz MD Work Phone: [facility] 09-22-2024 15:25-0500 Inhaled oxygen flow rate 6 L/min Peggy Muñoz MD Work Phone: [facility] 09-22-2024 12:02-0500 Body height 173.99 cm Peggy Muñoz MD Work Phone: [facility] 09-22-2024 12:02-0500 Body weight 140.7 kg Peggy Muñoz MD Work Phone: [facility] 09-18-2024 08:08-0500 Body height 180.34 cm [facility] 09-18-2024 08:08-0500 Body mass index (BMI) [Ratio] 43.1 kg/m2 [facility] 09-18-2024 08:08-0500 Body weight 140.21 kg [facility] Encounters Encounter Date Encounter Type Care Provider Facility Start: 12-30-2024 ambulatory [facility] Start: 2024 End: 2024 ambulatory [facility] Start: 12-18-2024 End: 12-18-2024 ambulatory [facility] Start: 12-18-2024 End: 12-18-2024 ambulatory [facility] Start: 11-26-2024 End: 11-26-2024 Patient encounter procedure Peggy Muñoz MD Work Phone: [facility] [place] Work Phone: Start: 11-26-2024 End: 11-26-2024 ambulatory Peggy Muñoz MD Work Phone: [facility] Work Phone: Start: 11-18-2024 End: 11-18-2024 ambulatory Peggy Muñoz MD Work Phone: [facility] Work Phone: Start: 11-18-2024 End: 11-18-2024 Departed Referred Peggy Muñoz MD Work Phone: [facility] Start: 11-05-2024 End: 11-05-2024 Patient encounter procedure Peggy Muñoz MD Work Phone: [facility] [place] Work Phone: Start: 11-05-2024 End: 11-05-2024 ambulatory Peggy Muñoz MD Work Phone: [facility] Work Phone: Start: 11-05-2024 End: 11-05-2024 ambulatory Peggy Muñoz MD Work Phone: [facility] Work Phone: Start: 11-05-2024 End: 11-05-2024 Patient encounter procedure Peggy Muñoz MD Work Phone: [facility] Work Phone: Start: 11-02-2024 End: 11-02-2024 ambulatory Peggy Muñoz MD Work Phone: [facility] Work Phone: Start: 11-02-2024 End: 11-02-2024 Patient encounter procedure Peggy Muñoz MD Work Phone: [facility] Work Phone: Start: 11-02-2024 End: 11-02-2024 Patient encounter procedure Peggy Muñoz MD Work Phone: [facility] Start: 11-02-2024 End: 11-02-2024 ambulatory Peggy Muñoz MD Work Phone: [facility] Work Phone: Start: 10-20-2024 End: 10-20-2024 ambulatory Peggy Muñoz MD Work Phone: [facility] Work Phone: Start: 10-20-2024 End: 10-20-2024 Departed Referred Peggy Muñoz MD Work Phone: [facility] Start: 10-07-2024 End: 10-07-2024 ambulatory Peggy Muñoz MD Work Phone: [facility] Work Phone: Start: 10-07-2024 End: 10-07-2024 Patient encounter procedure Peggy Muñoz MD Work Phone: [facility] Work Phone: Start: 09-22-2024 End: 09-22-2024 Admission to same day surgery center Peggy Muñoz MD Work Phone: [facility] [place] Start: 09-22-2024 End: 09-22-2024 ambulatory Peggy Muñoz MD Work Phone: [facility] Work Phone: Start: 09-22-2024 Non-patient / Non-visit Vi Muñoz MD Work Phone: [facility] Work Phone: Start: 09-21-2024 End: 09-21-2024 Patient encounter procedure Peggy Muñoz MD Work Phone: [facility]Pre[facility]Surgical [facility] Work Phone: Start: 09-21-2024 End: 09-21-2024 ambulatory Peggy Muñoz MD Work Phone: [facility] Work Phone: Start: 09-21-2024 Encounter for preprocedural laboratory examination Geoffrey Ibrahim [facility] Start: 09-18-2024 End: 09-18-2024 ambulatory [facility] Work Phone: Start: 09-18-2024 End: 09-18-2024 Patient encounter procedure [facility] Work Phone: Start: 05-14-2024 End: 05-14-2024 ambulatory [facility] Start: 05-01-2024 Encounter for other preprocedural examination [facility] Start: 05-01-2024 End: 05-01-2024 ambulatory [facility] Start: 04-29-2024 End: 04-29-2024 ambulatory [facility] Start: 04-18-2023 End: 04-19-2023 ambulatory Tuan [...] identified in Urine by Culture Urine Culture [facility] Start: 11-18-2024 Urine culture [facility] Start: 11-05-2024 Actin smooth muscle IgG Ab [Units/volume] in Serum [facility] Start: 11-05-2024 [id number]. tumor marker [Mass/volume] in Serum or Plasma [facility] Start: 11-05-2024 Ceruloplasmin [Mass/ volume] in Serum or Plasma [facility] Start: 11-05-2024 Hepatitis A virus Ab [Presence] in Serum by Immunoassay [facility] Start: 11-05-2024 Hepatitis A virus an tibody, IgM type [facility] Start: 11-05-2024 Hepatitis B core ant ibody measurement [facility] Start: 11-05-2024 Hepatitis B core ant ibody measurement, IgM type [facility] Start: 11-05-2024 Hepatitis B virus garcia rface Ab [Presence] in Serum [facility] Start: 11-05-2024 IgG [Mass/volume] in Serum or Plasma [facility] Start: 11-05-2024 Lipoprotein a [Moles/volume] in Serum or Plasma [facility] Start: 11-05-2024 Mitochondria M2 IgG Ab [Units/volume] in Serum [facility] Start: 11-05-2024 [facility] Start: 11-02-2024 Plain X-ray of left elbow XR elbow L T 2V [facility] Start: 11-02-2024 XR Elbow - left 2 Views [facility] Start: 10-20-2024 Urine culture [facility] Start: 10-20-2024 Bacteria identified in Urine by Culture Urine Culture [facility] Start: 10-07-2024 Plain X-ray of left elbow XR elbow L T 2V [facility] Start: 10-07-2024 XR Elbow - left 2 Views [facility] Start: 09-22-2024 [facility] Start: 09-22-2024 [facility] Start: 09-22-2024 Plain X-ray of left elbow XR elbow L T min 3V* [facility] Start: 09-22-2024 XR Elbow - left GE 3 Views [facility] Actin smooth muscle IgG Ab [Units/volume] in Serum [facility] Alpha 1 antitrypsin [Mass/volume] in Serum or Plasma [facility] Alpha 1 antitrypsin [Mass/volume] in Serum or Plasma [facility] Alpha 1 antitrypsin phenotyping [Identifier] in Serum or Plasma by Immunofixation [facility] [id number]. tumor marker [Mass/volume] in Serum or Plasma [facility] Ceruloplasmin [Mass/ volume] in Serum or Plasma [facility] Comprehensive metabo lic 2000 panel - Serum or Plasma [facility] Hepatitis A virus Ab [Presence] in Serum by Immunoassay [facility] Hepatitis A virus an tibody, IgM type [facility] Hepatitis B core ant ibody measurement [facility] Hepatitis B core ant ibody measurement, IgM type [facility] Hepatitis B virus garcia rface Ab [Presence] in Serum [facility] Hepatitis B virus garcia rface Ag [Presence] in Serum or Plasma by Immunoassay [facility] Hepatitis C virus Ig G Ab [Presence] in Serum or Plasma by Immunoassay [facility] HFE gene mutations f ound [Identifier] in Blood or Tissue by Molecular genetics method Nominal [facility] Homogenous nuclear A b pattern [Titer] in Serum [facility] IgG [Mass/volume] in Serum or Plasma [facility] Lipoprotein a [Moles/volume] in Serum or Plasma [facility] Mitochondria M2 IgG Ab [Units/volume] in Serum [facility] Nuclear Ab [Titer] in Serum [facility] Patient Education Know your Meds [facility] Work Phone: Patient referral [facility] Work Phone: [facility] Payers Date Payer Category Payer Private Health Insurance [id number] 2024 Medicare [id number] 2023 Unknown [id number] 1959 Self-pay 1955 Unknown [id number] 1957 Unknown [id number] [id number] 1957 Unknown [id number] [id number]3 1957 Unknown [id number] 2.16.840.1.384363.3.579.2.727 1957 Unknown [id number] 2.16.840.1.666516.3.579.2.128 6 1957 Unknown [id number] 2.16.840.1.972702.3.579.2.128 6 1957 Unknown [id number] 2.16.840.1.957773.3.579.2.128 6 1957 Unknown [id number] 2.16.840.1.069462.3.579.2.128 6 1957 Unknown [id number] 2.16.840.1.382427.3.579.2.128 6 Medicare [id number] Private Health Insurance [employer] [id number] Unknown [id number] Unknown O [id number] Unknown [id number] 2.16.840.1.138001.3.579.2.531 Unknown [id number] 2.16.840.1.362648.3.579.2.531 Unknown [id number] 2.16.840.1.047054.3.579.2.531 Unknown [id number] 2.16.840.1.263289.3.579.2.531 Unknown [id number] 2.16.840.1.159722.3.579.2.531 Unknown [id number] 2.16.840.1.257501.3.579.2.531 Unknown [id number] 2.16.840.1.453402.3.579.2.531 Unknown [id number] 2.16.840.1.375383.3.579.2.531 Worker's Compensation [facility] [id number] Social History Date Type Detail Facility Tobacco smoking stat [facility] Unknown if ever smoked [facility] Work Phone: Start: 1955 Sex Assigned At Male F [facility] Start: 07-24-2019 Tobacco smoking stat [facility] Current some day smoker [facility] Start: 09-18-2024 End: 11-27-2024 Sex Male (finding) [facility] Start: 09-21-2024 End: 09-22-2024 Tobacco smoking status NHIS Ex-smoker (finding) [facility] Medical Equipment Procedure Code Equipment Code Equipment Origin al Text Equipment Identifier Dates Open reduction and internal fixation of fracture of humerus Elbow radius prosthesis ()[id number] FDA Start: 09-22-2024 Open reduction and internal fixation of fracture of humerus Elbow radius prosthesis ()[id number] FDA Start: 09-22-2024 Goals Date Patient Goal [...] SHABANA who reports that patient currently at [facility] but she and patient unwilling to travel to [place] for consult/treatment. Reports she cannot transport him due to distance. Declines referral at this time and will seek care closer in proximity to their hometown. [facility] 11-26-2024 Radiology Diagnostic study note [facility] [place] [address] [place] [address] CT Scan Report Signed Patient: Gerson Penn MR#: [id number] : 1955 Acct:[id number] Age/Sex: 68 / M ADM Date: 5 Loc: CT Room: Type: [facility] Attending Dr: Derrek Rodgers MD Copies to: [...] Jr., D.O. 11/26/2024 3:27 PM Dictation Location: [place] [address] Transcribed By: [facility] 11/26/24 1527 Dictated By: Gage Noland Jr, DO 11/26/24 1519 Signed By: 11/26/24 1527 [facility] 11-05-2024 Evaluation note Authored November 05, [...] kidney function Will arrange for screening colonoscopy [facility] Work Phone: 1(721) 943-697002-21-2025 Evaluation note* Diagnosis Onset Date Resolution Status Admit Date Fracture of coronoid process of left ulna acute September 18, 2 025 7:49am Fracture of radial head, left, closed acute September 18, 2 025 7:49am [facility] Work Phone: 1(481) 233-676802-21-2025 Evaluation note* Diagnosis Onset Date Resolution Status [...] Other specified postprocedural states noneactive September 8:05am [facility] Work Phone: 1(378) 971-398402-21-2025 Evaluation note* Diagnosis Onset Date Resolution Status [...] postprocedural states noneactive November 02, 2024 9:55am [facility] Work Phone: 1(653) 105-740310-17-2024 NotePatient: Gerson Penn Procedure Information Date/Time: 05/14/24 1200 Procedures: Coronary angiography Right heart cath Location: [facility] EXPLOSIVE ORDNANCE HANDLER 2 BIPLANE / [facility] (Cath) Providers: Taj Otero MD [...] products. Plan discussed with attending. 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 [facility] Work Phone: Evaluation note* Diagnosis Onset Date Resolution Status Admit Date Fracture of coronoid process of left ulna acute September 18, 2 025 7:49am Fracture of radial head, left, closed acute September 18, 2 025 7:49am [facility] Work Phone: Evaluation note* Author Derrek [facility] Authored November 05, 2024 11: 08am [...] kidney function Will arrange for screening colonoscopy [facility] Work Phone: Summary Purpose Family History No [...] Reason for Visit Chief Complaint Admit Date CASKET LINER LT ELBOW FX [facility] 2024 7:49am Reason for Visit Admit Date Fracture of coronoid process of left uln a September 18, 2024 7:49am Fracture of radial head, left, closed [facility] 2024 7:49am Chief Complaint Admit Date CASKET LINER LT ELBOW FX [facility] 2024 7:49am Left Radial Head Fracture September 21, 2024 7:38am Chief Complaint Admit Date CASKET LINER LT ELBOW FX [facility] 2024 7:49am Left Radial Head Fracture September 21, 2024 7:38am Left Radial Head Fracture September 22, 2024 7:29am Left Radial Head Fracture September 22, 2024 10:58am Chief Complaint Admit Date CASKET LINER LT ELBOW FX [facility] 2024 7:49am Left Radial Head Fracture [...] 7:49am Fracture of radial head, left, closed [facility] 2024 7:49am Fracture of coronoid process of left uln a October 07, 2024 8:05am Fracture of radial head, left, closed [facility] 2024 8:05am Other specified postprocedural states [facility] 2024 8:05am Chief Complaint Admit Date CASKET LINER LT ELBOW FX [facility] 2024 7:49am Left Radial Head Fracture September 21, 2024 7:38am Left Radial Head Fracture September 22, 2024 7:29am Left Radial Head Fracture September 22, 2024 10:58am 3 weeks post op October 07, 2024 8:0 5am S52.122A - Displaced fracture of head of left radi October 07, 2024 8:07am Unknown October 20, 2024 6:2 0pm Chief Complaint Admit Date CASKET LINER LT ELBOW FX [facility] 2024 7:49am Left Radial Head Fracture September [...] Fracture of radial head, left, closed [facility] 2024 7:49am Fracture of coronoid process of left uln a October 07, 2024 8:05am Fracture of radial head, left, closed [facility] 2024 8:05am Other specified postprocedural states [facility] 2024 8:05am Fracture of coronoid process of left uln a November 02, 2024 9:55am Fracture of radial head, left, closed [facility] 2024 9:55am Other specified postprocedural states [facility] 2024 9:55am Chief Complaint Admit Date CASKET LINER LT ELBOW FX [facility] 2024 7:49am Left Radial Head Fracture September [...] 05, 2024 10:08am Chief Complaint Admit Date CASKET LINER LT ELBOW FX [facility] 2024 7:49am Left Radial Head Fracture [...] 2024 11: 25am Chief Complaint Admit Date CASKET LINER LT ELBOW FX [facility] 2024 7:49am Left Radial Head Fracture September [...] 2024 12: 30pm Chief Complaint Admit Date CASKET LINER LT ELBOW FX [facility] 2024 7:49am Left Radial Head Fracture [...] and content) DATE CREATED AUTHOR 06/17/2020 [facility] DATE CREATED AUTHOR AUTHOR'S ORGANIZ ATION 07/07/2022 [facility] DATE CREATED AUTHOR AUTHOR'S ORGANIZ ATION 04/20/2023 [facility] DATE CREATED AUTHOR AUTHOR'S ORGANIZ ATION 12/01/2024 [facility] DATE CREATED AUTHOR AUTHOR'S ORGANIZ ATION 12/24/2024 [facility] DATE CREATED AUTHOR AUTHOR'S ORGANIZ ATION 12/31/2024 [...] BE BASED ON THE PRIMARY CLINICAL RECORDS. [facility]. provides no warranty or guarantee of the accuracy or completeness of information in this document.
[2025-01-07] MEDS: LIOTHYRONINE SODIUM 5 MCG TABLET PO (06:08)
[2025-01-07] MEDS: LEVOTHYROXINE SODIUM 100 MCG TABLET 50 MCG PO (06:08)
[2025-01-07] MEDS: LACTULOSE 10 GM/15 ML UD CUP PO ×2 (06:09→14:28)
--- NOTE | 2025-01-07 06:29 | CA_ITS ---
Patient Name: JAZMYNE PENN MR#: [id number] : 1955 Exam Date: 01/07/2025 Ordering Doctor: DR PEGGY NEIL . ECHOCARDIOGRAM REPORT PROCEDURE: CA ECHO DOPPLER COMPLETE INDICATIONS: CHFpEF COMPARISON: None. DESCRIPTION: COMPLETE ECHOCARDIOGRAM Real-time transthoracic echocardiography with 2D, M-mode, spectral and color flow Doppler performed. QUALITY: Technically difficult due to patient's condition and poor sound transmission. LEFT VENTRICLE: Normal chamber size. Thickened septal wall. Systolic function is normal. Segmental wall motion cannot be accurately assessed due to poor sound transmission. LV EF: Normal left ventricular ejection fraction, (>55%). DIASTOLIC: Diastolic function is indeterminate. ATRIAL SEPTUM: LEFT ATRIUM: Mild chamber dilatation. RIGHT ATRIUM: Normal chamber size. RIGHT VENTRICLE: Normal chamber size. Normal systolic function. TRICUSPID VALVE: Normal mobility and thickness. No stenosis with no regurgitation. Unable to assess right-sided pressures due to lack of measurable tricuspid regurgitation. MITRAL VALVE: Normal mobility and thickness. No evidence of mitral valve stenosis. There is no mitral annular calcification. No mitral regurgitation. AORTIC VALVE: Mildly calcified aortic valve. Normal leaflet mobility. No evidence of aortic valve stenosis. No aortic regurgitation. AORTIC ROOT: Moderately dilated, measuring 4.3 cm. The ascending aorta is poorly visualized. PULMONIC VALVE: Not well visualized. PERICARDIUM: No evidence of pericardial effusion. IVC: PLEURA: CONCLUSION: 1. Normal left ventricular size and systolic function. LVEF is estimated at 55 to 60%. 2. Normal right ventricular size and systolic function. 3. No significant valvular dysfunction. 4. Moderately dilated aortic root measuring 4.3 cm. The ascending aorta is poorly visualized. 5. Technically difficult study with poor sound transmission. Adult Echocardiography Procedure Report Left Ventricle LVEDD (3.7 - 5.6 cm): 4.11 cm LVESD (2.2 - 4.0 cm): 2.59 cm LVIVS thickness (0.6 - 1.2 cm): 1.64 cm LVPW thickness (0.5 - 1.0 cm): 1.29 cm e': 0.11 m/s E - e': 7.12 LVOT Max Gradient: 4.54 mm[Hg] LVOT Area (cm2): 1.07 m/s Peak Velocity (LVOT): 1.07 m/s LVOT Diameter 2.72 cm Left Atrium LA Volume Index (2D A2C): 29.75 ml/m2 Left Atrium Systolic Dimension: 4.67 cm Mitral Valve MV E to A Ratio: 0.79 Mitral Valve A-Wave Peak Velocity: 0.97 m/s Mitral Valve E-Wave Peak Velocity: 0.77 m/s Right Ventricle Aorta AO Root Diam: 4.26 cm Aortic Valve AoV Area (Peak Oswaldo): 4.92 cm2, 4.92 cm2 Peak Velocity(Antegrade Flow): 1.26 m/s Peak Gradient(Antegrade Flow): 6.36 mm[Hg] Tricuspid Valve Pulmonic Valve Right Atrium Dictated by: Yohan Galeano M.D. on 01/07/2025 at 18:09 Approved by: Yohan Galeano M.D. on 01/07/2025 at 18:13
[2025-01-07 07:10] LABS: Creatine Kinase 27 U/L (39-308); Creatine Kinase MB 0.76 ng/mL (<=3.60); Myoglobin 55 ng/mL (16-96); Troponin I High Sensitivity 10.1 pg/mL (4.0-76.1)
[2025-01-07 07:15] LABS: Ammonia 67 umol/L (11-32)
[2025-01-07 07:54] LABS: Glucometer 67 mg/dL (74-106)
--- NOTE | 2025-01-07 08:30 | P.HP_ITS ---
HPI H&P: HPI History of Present Illness Chief complaint: FALL, WEAKNESS Narrative: Patient was multiple rehabilitation stays, recently discharged, still not functioning well at home, becoming more more difficulty ambulating, also altered mental status, workup in ER with unremarkable workup once on the floor show significantly elevated ammonia level, higher than his normal, this is likely leading to his altered mental status and continued deterioration from a physical standpoint When I saw patient up in medical surgical floor, was alert and oriented, at home he has had periods of confusion though, this is likely related to the ammonia, the ammonia part making him weaker and now physically because he has not been moving because of the ammonia he has been needed another rehabilitation stay, the ammonia part can be faxed his weakness because of it we will take a significant amount of time Opioid HPI Opioid Management Most Recent Pain and Opioid Data: Last Pain Scale 0 Today, 09:53 Last Pain Intensity 2 11/19/24, 14:26 Last Pain Assessment Today, 04:37 Last ORT Total Score 0 Today, 03:20 Last ORT Risk Category Low Risk Today, 03:20 Review of Systems ROS Status of ROS 10 or more systems reviewed and unremark able except as noted in history and below [facility] Medical History Generalized weakness ?R53.1 - Weakness (ICD-10) Sepsis ?A41.9 - Sepsis, unspecified organism (ICD-10) Generalized weakness ?R53.1 - Weakness (ICD-10) Laceration of left forearm ?S51.812A - Laceration without foreign body of left forearm, initial encounter (ICD-10) Chest wall contusion ?S20.219A - Contusion of unspecified front wall of thorax, initial encounter (ICD-10) Head injury ?S09.90XA - Unspecified injury of head, initial encounter (ICD-10) Abdominal pain ?R10.9 - Unspecified abdominal pain (ICD-10) Severe protein-calorie malnutrition ?E43 - Unspecified severe protein-calorie malnutrition (ICD-10) Coagulopathy ?D68.9 - Coagulation defect, unspecified (ICD-10) Hyperbilirubinemia ?E80.6 - Other disorders of bilirubin metabolism (ICD-10) Lactic acidosis ?E87.20 - Acidosis, unspecified (ICD-10) Hyperkalemia ?E87.5 - Hyperkalemia (ICD-10) Thrombocytopenia ?D69.6 - Thrombocytopenia, unspecified (ICD-10) Acute pancreatitis ?K85.90 - Acute pancreatitis without necrosis or infection, unspecified (ICD- 10) Cholelithiasis ?K80.20 - Calculus of gallbladder without cholecystitis without obstruction (ICD-10) Cirrhosis ?K74.60 - Unspecified cirrhosis of liver (ICD-10) Acute kidney injury superimposed on stage 1 chronic kidney disease ?N17.9 - Acute kidney failure, unspecified (ICD-10) ?N18.1 - Chronic kidney disease, stage 1 (ICD-10) Acute UTI ?N39.0 - Urinary tract infection, site not specified (ICD-10) Nausea vomiting and diarrhea ?R11.2 - Nausea with vomiting, unspecified (ICD-10) ?R19.7 - Diarrhea, unspecified (ICD-10) Hypovolemia ?E86.1 - Hypovolemia (ICD-10) Syncope ?R55 - Syncope and collapse (ICD-10) Dehydration ?E86.0 - Dehydration (ICD-10) Surgical History History of left hip replacement ?Z96.642 - Presence of left artificial hip joint (ICD-10) Family History Father Family history of myocardial infarction Mother Family history of hypertension Family history of cancer Social History (Updated 01/07/25 @ 04:20 by Ingrid Beard RN) Within the past year, how often did you have a drink containing alcohol: never Score interpretation: A score less than 4 is consistent with normal alcohol consumption. Smoking status: Former smoker Second hand tobacco smoke exposure: No Non-prescribed substance use: denies use Highest level of school completed/degree received: high school graduate Are you now , , , , never or living with a partner: In a typical week, how many times do you talk on the telephone with family, friends, or neighbors: 3 or more times per week Little interest or pleasure in doing things: not at all Feeling down, depressed, or hopeless: not at all Meds Home Medications and Allergies Home Medications ?Medication ?Instructions ?Recorded ?Confirmed ?Type carvedilol 6.25 mg tablet 6.25 mg PO Q12H 05/27/2307/22 History furosemide 20 mg tablet 40 mg PO DAILY 05/27/2312/27 History potassium chloride 20 mEq 20 meq PO DAILY 05/27/2307/22 History tablet,extended release(part/cryst) (Klor-Con M) ezetimibe 10 mg tablet 10 mg PO DAILY 10/20/2412/27 History amlodipine 2.5 mg tablet 2.5 mg PO DAILY 11/18/2407/22 History aspirin 81 mg capsule 81 mg PO DAILY 11/18/2412/27 History cyanocobalamin (vitamin B-12) 2,000 mcg PO DAILY 11/1801/07/25 History 2,000 mcg tablet,extended release (Vitamin B-12 ER) ferrous sulfate 325 mg (65 mg 325 mg PO BID 11/18/24 0 01/07/25 History iron) tablet (iron) olanzapine 2.5 mg tablet 2.5 mg PO DAILY 11/18/2407/22 History lactulose 10 gram/15 mL oral 10 g (15 mL) PO TID #3,78 5 mL 11/20/24 01/07/25 Rx solution canagliflozin 100 mg tablet 100 mg PO .QD 12/10/2407/22 History (Invokana) levothyroxine 50 mcg tablet 50 mcg PO .ACB 12/10/24 History liothyronine 5 mcg tablet 5 mcg PO .ACB 12/10/2401/07 History sacubitril 24 mg-valsartan 26 mg 1 tab PO BID 12/10/24 01/07/25 History tablet (Entresto) spironolactone 50 mg tablet 50 mg PO BID 12/10/2412/27 History canagliflozin 100 mg tablet 100 mg PO QD #30 tabs 11/2601/07/25 Rx (Invokana) citalopram 20 mg tablet 40 mg (2 x 20 mg) PO DAILY # 60 tabs 12/14/24 01/07/25 Rx food supplemt, lactose-reduced 1 ea PO BID #5,688 mL 0 12/14/24 01/07/25 Rx (Ensure Active Protein-Muscle oral liquid) nystatin 100,000 unit/gram topical 1 applic topical BI D #60 grams 12/14/24 01/07/25 Rx powder (Nystop) quetiapine 25 mg tablet 50 mg (2 x 25 mg) PO HS #60 tabs 12/14/24 01/07/25 Rx sacubitril 24 mg-valsartan 26 mg 2 tab PO BID #120 tab s 12/14/24 01/07/25 Rx tablet (Entresto) sitagliptin phosphate 50 mg tablet 100 mg (2 x 50 mg) PO QD #60 tabs 12/14/24 01/07/25 Rx (Januvia) Allergies Allergy/AdvReac Type Severity Reaction Status Date / Time No Known Drug Allergies Allergy Verified 01/06/25 22:27 Exam Constitutional Vital Signs, click to edit/add: Last Vital Signs Temp 97.7 F 01/07/25 08:00 Pulse 75 01/07/25 08:00 Resp 18 01/07/25 08:00 BP 108/63 01/07/25 08:00 Pulse Ox 96 01/07/25 08:00 O2 Del Method Room Air 01/07/25 08:00 Documenting provider has reviewed patient's vital signs: yes Common normals: no apparent distress Respiratory Common normals: normal respiratory effort and no retractions Cardio Common normals: regular rate, regular rhythm and no murmurs GI Common normals: soft to palpation and non-tender; negative for Normal to inspection, nondistended, normoactive bowel sounds present (Morbid obesity) Results Labs Labs: Short CBC 01/07/25 Range/Units 01:01 WBC 3.6 L (4.0-11.0) 10^3/uL Hgb 9.9 L (14.0-18.0) g/dL Hct 29.9 L (42.0-54.0) % Plt Count 129 L (150-450) 10^3/uL BMP 01/07/25 01:01 Sodium 138 Potassium 4.8 Chloride 106 Carbon Dioxide 29.5 BUN 30.0 H Creatinine 1.20 Glucose 105 Calcium 8.5 Cardiac Enzymes 01/07/25 Range/Units 06:32 Total Creatine Kinase 27 L (39-308) U/L CK-MB (CK-2) 0.76 (<=3.60) ng/mL Liver Function 01/07/25 Range/Units 01:01 Total Bilirubin 1.3 H (0.2-1.0) mg/dL AST 69 H (15-37) U/L ALT 51 (16-63) U/L Alkaline Phosphatase 278 H (46-116) U/L Albumin 1.2 L (3.4-5.0) g/dL Assessment and Plan Assessment and Plan (1) Fall: (2) Generalized weakness: (3) Severe protein-calorie malnutrition: (4) Hyperbilirubinemia: (5) Thrombocytopenia: (6) Cirrhosis: Plan Admission status: Patient with recurrence of falls, has been in rehabilitation twice, gets better and then goes home, his ammonia level has remained creeping up and has had more altered mental status lately to resulting in further weakness and now unable to ambulate without high risk of falls he had 3 falls at home in the last 2 days Weakness secondary to liver cirrhosis, progressive, high risk for falls, needs rehabilitation, he has been highly successful rehabbing in the past I suspect this will be the same we will be recommending an extended stay for rehab this time more in the 2 to 3-month range Elevated liver function tests due to liver cirrhosis-with hyperammonemia-this is what is progressed to his weakness part, restart his lactulose looks like he has not been taking that consistently, repeat ammonia level in a.m. Acute blood loss anemia as outlined in previous admission, maintain current medications, hemoglobin down somewhat today monitor daily Thrombocytopenia secondary to liver cirrhosis-monitor daily Depression-working on adjusting current medications Chronic combined congestive heart failure-BNP and high-sensitivity troponin are negative, maintain current medications Diabetes mellitus-continue with current medications Admission Status - Pt wth AMS due to Hyperammonemia, maintain current obs ervation status, if condition deterioratesa and medically neccessary treatment will span more than two midnight, will make inpatient status
--- NOTE | 2025-01-07 09:14 | SWNOTE1 ---
SW and I met with pt in room. Pt lives at home with and son. Pt voiced he is not independent, his does the cooking and driving. Pt uses a walker in the home and a wheelchair when out and about. Pt voiced having a ramp to get in the home and it is one level inside. SW discussed OT recommendation of going to rehab. Pt did state he has been to rehab in the past at the [facility]. Pt would like to go to the [facility] this time. Pt did just get cut by his insurance from rehab. SW and pt discussed joint terminal attack controller care and Medicaid, but pt does not want to be skilled nursing at this time. SW let him know that his insurance may not approve another rehab stay but we will try. SW did ask if pt would like us to call his but he did already speak to her. Referral sent to the [facility].
--- NOTE | 2025-01-07 09:20 | SWNOTE1 ---
Medicare Outpatient Observation Notice reviewed and discussed with patient. Pt. verbalized understanding and signed the form. Original given to patient and copy placed in patient?s chart.
[2025-01-07 09:40] LABS: Glucometer 141 mg/dL (74-106)
[2025-01-07] MEDS: NYSTATIN 15 GM POWDER 1 APPLIC TOPICAL ×2 (10:05→21:14)
[2025-01-07] MEDS: SACUBITRIL/VALSARTAN 24 MG-26 MG TABLET 1 TAB PO ×2 (10:06→21:10)
[2025-01-07] MEDS: ENSURE HP 237 ML LIQUID PO ×2 (10:06→21:14)
[2025-01-07] MEDS: SITAGLIPTIN PHOSPHATE 50 MG TABLET 100 MG PO (10:07)
[2025-01-07] MEDS: EZETIMIBE 10 MG TABLET PO (10:07)
--- NOTE | 2025-01-07 10:08 | SWNOTE1 ---
SW received message from [facility] and they are able to accept and will start precert once they receive H&P, and PT/OT notes.
[2025-01-07] MEDS: FUROSEMIDE 20 MG TABLET 40 MG PO (10:09)
[2025-01-07] MEDS: CANAGLIFLOZIN 100 MG TABLET PO (10:09)
[2025-01-07] MEDS: ASPIRIN 81 MG TAB.CHEW PO (10:09)
[2025-01-07] MEDS: POTASSIUM CHLORIDE 10 MEQ ER TABLET 20 MEQ PO (10:09)
[2025-01-07] MEDS: FERROUS SULFATE 325 MG TABLET PO ×2 (10:10→21:13)
[2025-01-07] MEDS: PROSTAT 15 GM PROTEIN/100 CAL 30 ML LIQUID PACKET PO ×2 (10:10→21:14)
[2025-01-07] MEDS: CITALOPRAM HYDROBROMIDE 20 MG TABLET 40 MG PO (10:10)
[2025-01-07] MEDS: OLANZapine 5 MG TABLET 2.5 MG PO (10:11)
[2025-01-07 12:05] LABS: Glucometer 126 mg/dL (74-106)
--- NOTE | 2025-01-07 12:43 | SWNOTE1 ---
WAGNER faxed PT/OT and H&P to Kitty at [facility] so she can start precert.
[2025-01-07] MEDS: ACETAMINOPHEN 500 MG TABLET 1000 MG PO ×2 (14:28→23:50)
[2025-01-07 16:41] LABS: Glucometer 142 mg/dL (74-106)
[2025-01-07] MEDS: QUETIAPINE FUMARATE 25 MG TABLET 50 MG PO (21:13)
[2025-01-07 21:24] LABS: Glucometer 137 mg/dL (74-106)
[2025-01-08] VITALS (11 sets, daily range): BP systolic 90–100; BP diastolic 42–64; PULSE 77–98; TEMP 36.6–36.8; O2SAT 91–93
[2025-01-08 05:53] LABS: Basophils Percent Auto 0.3 % (0.2-2.0); Eosinophils Absolute Auto 0.2 10^3/uL (0.0-0.7); Eosinophils Percent Auto 4.3 % (0.9-7.0); Hematocrit 29.7 % (42.0-54.0); Hemoglobin 9.8 g/dL (14.0-18.0); Immature Granulocytes Abs Auto 0.05 10^3/uL (0.00-0.03); Immature Granulocytes Pct Auto 1.3 % (0.0-0.5); Lymphocytes Absolute Auto 0.6 10^3/uL (1.2-3.8); Lymphocytes Percent Auto 14.5 % (20.5-60.0); Mean Corpuscular Hemoglobin 34.1 pg (25.9-34.0); Mean Corpuscular Volume 103.5 fL (80.0-94.0); Monocytes Absolute Auto 0.6 10^3/uL (0.3-0.8); Monocytes Percent Auto 14.8 % (1.7-12.0); Neutrophils Absolute Auto 2.6 10^3/uL (1.4-6.5); Neutrophils Percent Auto 64.8 % (43.0-75.0); Platelet Count 136 10^3/uL (150-450); Red Blood Count 2.87 10^6/uL (4.70-6.10); Red Cell Distribution Width 14.7 % (11.0-15.0); White Blood Count 3.9 10^3/uL (4.0-11.0)
[2025-01-08] MEDS: LEVOTHYROXINE SODIUM 100 MCG TABLET 50 MCG PO (06:07)
[2025-01-08] MEDS: LACTULOSE 10 GM/15 ML UD CUP PO (06:07)
[2025-01-08] MEDS: LIOTHYRONINE SODIUM 5 MCG TABLET PO (06:07)
[2025-01-08 06:08] LABS: Alanine Aminotransferase 50 U/L (16-63); Albumin Globulin Ratio 0.3; Albumin Level 1.1 g/dL (3.4-5.0); Alkaline Phosphatase 273 U/L (46-116); Ammonia 92 umol/L (11-32); Anion Gap 9.3; Aspartate Amino Transferase 67 U/L (15-37); BUN Creatinine Ratio 26.1; Bilirubin Total 1.1 mg/dL (0.2-1.0); Calcium 8.6 mg/dL (8.5-10.1); Carbon Dioxide 28.6 mmol/L (21.0-32.0); Chloride 106 mmol/L (98-107); Estimated GFR (African America >60 (>=60 mL/min/1.73m^2); Estimated GFR (Non-African Ame >60 (>=60 mL/min/1.73m^2); Globulin 4.2 g/dL; Glucose 107 mg/dL (74-106); Potassium 4.9 mmol/L (3.5-5.1); Sodium 139 mmol/L (136-145); Total Protein 5.3 g/dL (6.4-8.2)
--- NOTE | 2025-01-08 07:23 | P.PN_ITS ---
Exam Constitutional Vital Signs, click to edit/add: Last Vital Signs Temp 97.8 F 01/08/25 04:00 Pulse 81 01/08/25 05:57 Resp 16 01/08/25 04:00 BP 90/58 01/08/25 04:00 Pulse Ox 92 L 01/08/25 04:00 O2 Del Method Home BIPAP / CPAP 01/08/25 04:00 Documenting provider has reviewed patient's vital signs: yes Common normals: no apparent distress Chest Common normals: inspection of chest normal Respiratory Common normals: normal respiratory effort, no retractions and clear to auscultation bilaterally Auscultation: no rales, no rhonchi and no wheezes Cardio Common normals: regular rate and regular rhythm GI Common normals: soft to palpation and non-tender; negative for Normal to inspection, nondistended, normoactive bowel sounds present (morbid obese) Extremity Common normals: normal to inspection and no clubbing, cyanosis or edema Progress Note: Objective Labs Labs: Short CBC 01/08/25 Range/Units 05:32 WBC 3.9 L (4.0-11.0) 10^3/uL Hgb 9.8 L (14.0-18.0) g/dL Hct 29.7 L (42.0-54.0) % Plt Count 136 L (150-450) 10^3/uL BMP 01/08/25 05:32 Sodium 139 Potassium 4.9 Chloride 106 Carbon Dioxide 28.6 BUN 29.0 H Creatinine 1.11 Glucose 107 H Calcium 8.6 Liver Function 01/08/25 Range/Units 05:32 Total Bilirubin 1.1 H (0.2-1.0) mg/dL AST 67 H (15-37) U/L ALT 50 (16-63) U/L Alkaline Phosphatase 273 H (46-116) U/L Albumin 1.1 L (3.4-5.0) g/dL Progress Note: A&P Assessment and Plan (1) Fall: (2) Generalized weakness: (3) Severe protein-calorie malnutrition: (4) Hyperbilirubinemia: (5) Thrombocytopenia: (6) Cirrhosis: Plan Admission status: Patient with recurrence of falls, has been in rehabilitation twice, gets better and then goes home, his ammonia level has remained creeping up and has had more altered mental status lately to resulting in further weakness and now unable to ambulate without high risk of falls he had 3 falls at home in the last 2 days Weakness secondary to liver cirrhosis, progressive, high risk for falls, needs rehabilitation, he has been highly successful rehabbing in the past I suspect this will be the same we will be recommending an extended stay for rehab this time more in the 2 to 3-month range -weakness persisting, only able to walk to the door for about 10 feet Elevated liver function tests due to liver cirrhosis-with hyperammonemia-ammonia higher today, increased dose repeat in a.m. Acute blood loss anemia as outlined in previous admission, maintain current medications,-hemoglobin down slightly Thrombocytopenia secondary to liver cirrhosis-improved today Neutropenia-improved today awaiting urine culture but no other signs of infection Depression-adjust medication to Cymbalta Chronic combined congestive heart failure-BNP and high-sensitivity troponin are negative, maintain current medications, edema well-controlled Diabetes mellitus-continue with current medications Sleep apnea-using home CPAP machine and effectively controlling hypoxia Morbid obesity-working on diet Severe protein calorie malnutrition-diet management Hypothyroidism-maintain current medications Admission Status - Pt wth AMS due to Hyperammonemia, maintain current observation status, if condition deterioratesa and medically neccessary treatment will span more than two midnight, will make inpatient status ?
[2025-01-08 07:55] LABS: Glucometer 119 mg/dL (74-106)
--- NOTE | 2025-01-08 09:26 | SWNOTE1 ---
Call received from Kitty at [facility] and pt did get approved to go to [facility]. SW let Dr. Muñoz know.
[2025-01-08] MEDS: SITAGLIPTIN PHOSPHATE 50 MG TABLET 100 MG PO (09:34)
[2025-01-08] MEDS: ASPIRIN 81 MG TAB.CHEW PO (09:34)
[2025-01-08] MEDS: DULOXETINE HCL 60 MG CAPSULE.DR PO (09:34)
[2025-01-08] MEDS: FERROUS SULFATE 325 MG TABLET PO (09:34)
[2025-01-08] MEDS: CARVEDILOL 6.25 MG TABLET PO (09:34)
[2025-01-08] MEDS: CANAGLIFLOZIN 100 MG TABLET PO (09:34)
[2025-01-08] MEDS: POTASSIUM CHLORIDE 10 MEQ ER TABLET 20 MEQ PO (09:34)
[2025-01-08] MEDS: ENSURE HP 237 ML LIQUID PO (09:35)
[2025-01-08] MEDS: NYSTATIN 15 GM POWDER 1 APPLIC TOPICAL (09:35)
[2025-01-08] MEDS: PROSTAT 15 GM PROTEIN/100 CAL 30 ML LIQUID PACKET PO (09:35)
[2025-01-08] MEDS: EZETIMIBE 10 MG TABLET PO (09:35)
[2025-01-08 09:54] LABS: Bilirubin Urine NEGATIVE (NEGATIVE); Blood Urine NEGATIVE (NEGATIVE); Clarity Urine CLEAR (CLEAR); Color Urine YELLOW (YELLOW); Glucose Urine UA 500 mg/dL (NEGATIVE); Ketones Urine NEGATIVE (NEGATIVE); Leukocyte Esterase Urine NEGATIVE (NEGATIVE); Nitrite Urine NEGATIVE (NEGATIVE); Protein Urine NEGATIVE (NEG/TRACE); Urobilinogen Urine 0.2 EU/dL (0.2-1.0)
[2025-01-08 10:03] LABS: Bacteria Urine NONE SEEN #/HPF (NONE SEEN); Cast Seen? NONE SEEN #/LPF (NONE SEEN); Crystals Seen? None Seen #/HPF (None Seen); Mucus Urine NONE SEEN (NONE SEEN); RBC Urine 0-2 #/HPF (0-2); Squamous Epithelial Cell Urine FEW #/LPF (NONE/RARE); Urine Culture Indicated ALREADY ORDERED; WBC Urine 0-2 #/HPF (NONE SEEN)
--- NOTE | 2025-01-08 10:58 | PT.DAILY ---
Physical Therapy Daily Note PT Daily Note/Assess Start: 01/08/25 10:54 Freq: Status: Active Protocol: Document 01/08/25 10:54 EMELI (Rec: 01/08/25 10:58 EMELI [id number]) Physical Therapy Daily Note/Assessment Time In/Time Out Time In 10:10 Time Out 10:22 Pain In Pain N/A Pain Out Pain N/A Subjective Subjective Pt supine upon arrival. Agreeable to PT. c/o increased coughing but no coughing spells during session. Therapeutic Exercise Time Therapeutic Exercise 3 Minutes (minutes) Therapeutic Exercise 0 Units Therapeutic Exercise Treatment Therapeutic Exercise Bilat AP, LAQ, and marches complete 10x ea while Treatment sitting unsupported at EOB without LOB. Therapeutic Activity Time Therapeutic Activity 8 Minutes (minutes) Therapeutic Activity 1 Units Therapeutic Activity Treatment Bed Mobility Ability Moderate Assist Chair Transfer Contact Guard Assist Ability Therapeutic Activity Supine>sit attempted IND but unable to advance his Comments trunk, requiring ModA. Pt sits EOB 3 min to complete LE strengthening ex - unsupported. Sit>stand CGA with increased time needed. Pt amb 85' with RW, CGA. Antalgia noticed with decreased stance phase on L LE. Pt returned to BS chair upon completion with call light within reach and needs met. Total Physical Therapy Time Total Therapy 11 Minutes Total Physical 1 Therapy Units Summary Daily Note Summary Improved transfer and gait ability on this date.
--- NOTE | 2025-01-08 11:17 | CM.NOTE ---
Called [facility] for update on pt, pt plan is to discharge to [facility] for skilled therapy.
--- NOTE | 2025-01-08 11:25 | P.DS_ITS ---
DS: Providers Provider Date of admission: 01/07/25 03:05 Primary care physician: Desmond Muñoz MD Consults: 01/07/25 06:21 Consult to Pharmacy Routine Consulting Provider: Reason for consultation: Please [facility] me when Med Rec is Updated Has provider been notified: No Occupational Therapy Eval and Treat Routine Reason for consultation: Only if needed for Rehab Has provider been notified: No Physical Therapy Eval and Treat Routine Reason for consultation: Eval and Treat Has provider been notified: No 01/07/25 09:00 Consult to C[employer] Crusher Operator Routine Has provider been notified: No Reason for consult:: Other Other reason:: D/C planning DS: Diagnosis Discharge Diagnosis (1) Fall: (2) Generalized weakness: (3) Severe protein-calorie malnutrition: (4) Hyperbilirubinemia: (5) Thrombocytopenia: (6) Cirrhosis: Plan Admission status: Patient with recurrence of falls, has been in rehabilitation twice, gets better and then goes home, his ammonia level has remained creeping up and has had more altered mental status lately to resulting in further weakness and now unable to ambulate without high risk of falls he had 3 falls at home in the last 2 days Weakness secondary to liver cirrhosis, progressive, high risk for falls, needs rehabilitation, he has been highly successful rehabbing in the past I suspect this will be the same we will be recommending an extended stay for rehab this time more in the 2 to 3-month range -weakness persisting, only able to walk to the door for about 10 feet Elevated liver function tests due to liver cirrhosis-with hyperammonemia-ammonia higher today, increased dose repeat in a.m. Acute blood loss anemia as outlined in previous admission, maintain current medications,-hemoglobin down slightly Thrombocytopenia secondary to liver cirrhosis-improved today Neutropenia-improved today awaiting urine culture but no other signs of infection Depression-adjust medication to Cymbalta Chronic combined congestive heart failure-BNP and high-sensitivity troponin are negative, maintain current medications, edema well-controlled Diabetes mellitus-continue with current medications Sleep apnea-using home CPAP machine and effectively controlling hypoxia Morbid obesity-working on diet Severe protein calorie malnutrition-diet management Hypothyroidism-maintain current medications Admission Status - Pt wth AMS due to Hyperammonemia, maintain current observation status, if condition deterioratesa and medically neccessary treatment will span more than two midnight, will make inpatient status ? DS: Summary Hospital Course Hospital Course: Patient admitted with increasing weakness after ammonia level increasing, even with his ammonia levels slightly improved on admission from what he was running outpatient, still significant weakness from that, although urine culture is pending no infectious source found his cirrhosis fairly stable for him, ammonia is higher lower level today though 3 did increase his lactulose, medically able for discharge to rehab I will follow patient at rehab Time Spent with Patient Time attestation: Total time spent providing and/or coordinating discharge services: Exam Constitutional Vital Signs, click to edit/add: Last Vital Signs Temp 98.3 F 01/08/25 08:08 Pulse 98 H 01/08/25 10:00 Resp 18 01/08/25 08:08 BP 100/64 01/08/25 09:35 Pulse Ox 93 L 01/08/25 10:40 O2 Del Method Room Air 01/08/25 10:40 Documenting provider has reviewed patient's vital signs: yes Common normals: no apparent distress Chest Common normals: inspection of chest normal Respiratory Common normals: normal respiratory effort, no retractions and clear to auscultation bilaterally Auscultation: no rales, no rhonchi and no wheezes Cardio Common normals: regular rate and regular rhythm GI Common normals: soft to palpation and non-tender; negative for Normal to inspection, nondistended, normoactive bowel sounds present (morbid obese) Extremity Common normals: normal to inspection and no clubbing, cyanosis or edema DS: Data Data Completed and Pending Labs on day of discharge: Labs from last 24 hours 01/08/25 01/08/25 01/08/25 09:30 07:44 05:32 WBC 3.9 L RBC 2.87 L Hgb 9.8 L Hct 29.7 L MCV 103.5 H MCH 34.1 H MCHC 33.0 RDW 14.7 Plt Count 136 L MPV 11.0 Neut % (Auto) 64.8 Lymph % (Auto) 14.5 L [place] % (Auto) 14.8 H Eos % (Auto) 4.3 Baso % (Auto) 0.3 Neut # (Auto) 2.6 Lymph # (Auto) 0.6 L [place] # (Auto) 0.6 Eos # (Auto) 0.2 Baso # (Auto) 0.0 Abs Immat Gran (auto) 0.05 H Imm/Tot Granulo (auto) 1.3 H Sodium 139 Potassium 4.9 Chloride 106 Carbon Dioxide 28.6 Anion Gap 9.3 BUN 29.0 H Creatinine 1.11 Est GFR ( Amer) >60 Est GFR (Non-Af Amer) >60 BUN/Creatinine Ratio 26.1 Glucose 107 H Calcium 8.6 Total Bilirubin 1.1 H AST 67 H ALT 50 Alkaline Phosphatase 273 H Ammonia 92 H* Total Protein 5.3 L Albumin 1.1 L Globulin 4.2 Albumin/Globulin Ratio 0.3 Urine Color Yellow Urine Clarity Clear Urine pH 6.0 Ur Specific [place] 1.020 Urine Protein Negative Urine Glucose (UA) 500 A Urine Ketones Negative Urine Occult Blood Negative Urine Nitrite Negative Urine Bilirubin Negative Urine Urobilinogen 0.2 Ur Leukocyte Esterase Negative Urine RBC 0-2 Urine WBC 0-2 A Ur Squamous Epith Cells Few A Urine Crystals None seen Urine Bacteria None seen Urine Casts None seen Urine Mucus None seen Ur Culture Indicated? Already ordered POC Glucose 119 H 01/07/25 01/07/25 01/07/25 21:22 16:40 12:03 WBC RBC Hgb Hct MCV MCH MCHC RDW Plt Count MPV Neut % (Auto) Lymph % (Auto) [place] % (Auto) Eos % (Auto) Baso % (Auto) Neut # (Auto) Lymph # (Auto) [place] # (Auto) Eos # (Auto) Baso # (Auto) Abs Immat Gran (auto) Imm/Tot Granulo (auto) Sodium Potassium Chloride Carbon Dioxide Anion Gap BUN Creatinine Est GFR ( Amer) Est GFR (Non-Af Amer) BUN/Creatinine Ratio Glucose Calcium Total Bilirubin AST ALT Alkaline Phosphatase Ammonia Total Protein Albumin Globulin Albumin/Globulin Ratio Urine Color Urine Clarity Urine pH Ur Specific [place] Urine Protein Urine Glucose (UA) Urine Ketones Urine Occult Blood Urine Nitrite Urine Bilirubin Urine Urobilinogen Ur Leukocyte Esterase Urine RBC Urine WBC Ur Squamous Epith Cells Urine Crystals Urine Bacteria Urine Casts Urine Mucus Ur Culture Indicated? POC Glucose 137 H 142 H 126 H Discharge Plan Discharge Disposition: Xfer SNF Condition: Good Discharge Medications: New Ensure Active Protein-Muscle Liquid 1 ea PO BID Qty: 5688 0RF duloxetine 60 mg Capsule,Delayed Release(Dr/Ec) 60 mg PO QD Qty: 30 11RF lactulose 10 gram/15 mL Solution 20 g PO TID Qty: 3785 0RF Pro-Stat Sugar Free 15 gram- 100 kcal/30 mL Liquid In Packet 1 ea PO BID Qty: 2880 0RF Continued aspirin 81 mg capsule 81 mg PO DAILY ferrous sulfate [iron] 325 mg (65 mg iron) tablet 325 mg PO BID cyanocobalamin (vitamin B-12) [Vitamin B-12] 2,000 mcg tablet extended release 2,000 mcg PO DAILY lactulose 10 gram/15 mL Solution 10 g PO TID Qty: 3785 11RF carvedilol 6.25 mg tablet 6.25 mg PO Q12H furosemide 20 mg tablet 40 mg PO DAILY potassium chloride [Klor-Con M20] 20 mEq tablet,ER particles/crystals 20 meq PO DAILY ezetimibe 10 mg tablet 10 mg PO DAILY liothyronine 5 mcg tablet 5 mcg PO .ACB Entresto 24-26 mg tablet 1 tab PO BID Invokana 100 mg tablet 100 mg PO .QD levothyroxine 50 mcg tablet 50 mcg PO .ACB spironolactone 50 mg tablet 50 mg PO BID quetiapine 25 mg Tablet 50 mg PO HS Qty: 60 11RF citalopram 20 mg Tablet 40 mg PO DAILY Qty: 60 11RF nystatin [Nystop] 100,000 unit/gram Powder 1 applic topical BID Qty: 60 11RF Ensure Active Protein-Muscle Liquid 1 ea PO BID Qty: 5688 0RF Januvia 50 mg Tablet 100 mg PO QD Qty: 60 11RF Invokana 100 mg Tablet 100 mg PO QD Qty: 30 11RF Entresto 24-26 mg Tablet 2 tab PO BID Qty: 120 7RF Discontinued amlodipine 2.5 mg tablet 2.5 mg PO DAILY olanzapine 2.5 mg tablet 2.5 mg PO DAILY Print Language: Pakistani Forms: Portal Instructions
[2025-01-08 11:36] LABS: Glucometer 172 mg/dL (74-106)
--- NOTE | 2025-01-08 11:50 | SWNOTE1 ---
Pt is stable for discharge today and discharge orders are in. WAGNER faxed dc orders to Kitty at [facility]. WAGNER called and set up Trips for 5:00-5:30. WAGNER let Kitty know time at [facility], Kitty voiced they can transport between 12:30-12:45. WAGNER asked nurse and that transport time is good. SW to complete HENS. WAGNER called and cancelled trips and will call pt's .
--- NOTE | 2025-01-11 14:56 | CM.NOTE ---
Carlitos txt Dr. Muñoz final urine culture.
== END 2025-01-08 12:31 ==
LOC: ER 01-07 02:35 → MS 01-07 03:26
PROVIDERS: Admitting Provider Family Medicine; Emergency Provider Emergency Medicine; PCP Family Medicine; Visit Provider Family Medicine
DX: E72.20 Disorder of urea cycle metabolism, unspecified (principal); S09.90XA Unspecified injury of head, initial encounter; E66.01 Morbid (severe) obesity due to excess calories; Z68.41 Body mass index [BMI] 40.0-44.9, adult; Z87.891 Personal history of nicotine dependence; Z96.642 Presence of left artificial hip joint; R53.1 Weakness; E43 Unspecified severe protein-calorie malnutrition; E80.6 Other disorders of bilirubin metabolism; D69.6 Thrombocytopenia, unspecified; K74.60 Unspecified cirrhosis of liver; D62 Acute posthemorrhagic anemia; F32.A Depression, unspecified; I50.42 Chronic combined systolic (congestive) and diastolic (congestive) heart failure; E11.9 Type 2 diabetes mellitus without complications; W19.XXXA Unspecified fall, initial encounter; Z91.81 History of falling; D70.9 Neutropenia, unspecified; G47.30 Sleep apnea, unspecified; E03.9 Hypothyroidism, unspecified
CPT/HCPCS: 36415; 70450; 72125; 80053; 81001; 82140; 82550; 82553; 82948; 83874; 83880; 84484; 85007; 85025; 85027; 87086; 87088; 87186; 93005; 93306; 94667; 94668; 94761; 97162; 97165; 97530; 97535; 99285; A6213; G0378

== ENCOUNTER 2025-01-21 01:04 | Outpatient (REF) | payer MEDICARE, SELFPAY ==
--- OUTSIDE RECORDS SUMMARY | 2025-01-06 20:00 | XMS_ITS | Clinical Summary ---
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 Active 09-21 [...] 10-24 00:00: 00 11-09 00:00 :00 No [id number] Per instruc tions Per instructio ns (route: oral) Med Classific ation: Cardiovas cular Therapy Agents citalopram 10 mg tablet 10-24 00:00: 00 Yes [id number] DEPRESSION 1 tablet DAILY 1 tablet DAILY (route: oral) Med Classific ation: Central Nervous System Agents carvedilol 6.25 mg tablet 10-19 00:00: 00 Yes [id number] HTN 1 tablet DAILY 1 tablet DAILY (route: oral) Med Classific ation: Cardiovas cular Therapy Agents furosemide 20 mg tablet 10-02 00:00: 00 Yes [id number] EDEMA 1 tablet DAILY 1 tablet DAILY (route: oral) Med Classific ation: Cardiovas cular Therapy Agents glimepiride 4 mg tablet 2 00:00: 00 11-09 00:00 :00 No [id number] Per instruc tions Per instructio ns (route: oral) Med Classific ation: Endocrine Klor-Con M20 mEq tablet,exte nded release 2-09 00:00: 00 Yes [id number] SUPPLEMENT 1 tablet DAILY 1 tablet DAILY (route: oral) Med Classific ation: Electroly te Balance-N utritiona l Products ezetimibe 10 mg tablet -16 00:00: 00 Yes [id number] CHOLESTEROL 1 tablet DAILY 1 tablet DAILY (route: oral) Med Classific ation: Cardiovas cular Therapy Agents spironolact one 25 mg tablet -16 00:00: 00 11-09 00:00 :00 No [id number] Per instruc tions Per instructio ns (route: oral) Med Classific ation: Cardiovas cular Therapy Agents spironolact one 50 mg tablet - 00:00: 00 Yes [id number] HTN 1 tablet 4 TIMES DAILY 1 tablet 4 TIMES DAILY (route: oral) Med Classific ation: Cardiovas cular Therapy Agents acetaminoph en 500 mg capsule 11-05 00:00: 00 Yes [id number] PAIN 2 capsule 3 TIMES DAILY 2 capsule 3 TIMES DAILY (route: oral) Med Classific ation: Analgesic , Anti-infl ammatory or Antipyret ic Humalog KwikPen (U-100) Insulin 100 unit/mL subcutaneou s 11-05 00:00: 00 Yes [id number] DM Per instruc tions 3 TIMES DAILY Per instructio ns 3 TIMES DAILY (route: subcutaneo us) Med Classific ation: Endocrine multivitami n tablet 11-05 00:00: 00 Yes [id number] SUPPLEMENT 1 tablet DAILY 1 tablet DAILY (route: oral) Med Classific ation: Electroly te Balance-N utritiona l Products Xifaxan 550 mg tablet 11-10 00:00: 00 Yes [id number] VELOZ 1 tablet 2 TIMES DAILY 1 [...] [employer]SF[employer] MOB[employer]] Goal 2025-01-07 Patient Goal - GET STRONGER Goal Provider [...] COMING. SIGNED BY ISSA NEAL OT 11/13/2024 Reason for Visit MODERATE ASSIST WITH TRANSFER/AMBULATION/ADLS Encounters Start Date/Time End Date/Time Encounter Type Admission Type Attending [facility] Care Facility Care Department Encounter ID Discharge Date Discharge Status Discharge Condition Discharge Reason Percent Goals Met 2024-11-09 00:00:00 2025-01-07 00:00:00 Outpatient NEW ADMISSION [facility] [id number] 2025-01-07 00:00:00 DISCHARGED /TRANSFERR ED TO A [facility] FOR [facility]PATIENT CARE MODERATE ASSIST WITH TRANSFER/A MBULATION/ ADLS SKILLED SERVICES EXCEED WHAT CAN SAFELY BE PROVIDED IN HOME SETTING 73.33
--- OUTSIDE RECORDS SUMMARY | 2025-01-21 01:13 | XMS_ITS | Clinical Summary ---
Author Organization [employer] Address [id number] [address] [place] [address] Care Team Providers Care Manager Employment Name Role Phone Desmond Muñoz MD Primary [...] Office Visit [facility] [address] [place] [address] Tiara Lomax MD Abnormal findings on diagnostic imaging of gallbladder (Primary Dx) 2024 Travel 12/18/2024 Telephone [facility] [address] [place] [address] Tiara Lomax MD 12/14/2024 3:50 PM EDT Ancillary Procedure [facility] [address] [place] [phone] Pain 12/11/2024 7:40 AM EDT Ancillary Procedure [facility] [address] [place] [phone] Pain 12/10/2024 7:15 PM EDT Ancillary Procedure [facility] [address] [place] [phone] Pain 11/18/2024 5:15 PM EDT Ancillary Procedure [facility] [address] [place] [phone] Pain from Last 3 Months Family History [...] ORDERABLES Fin al Result Performing Organization Address [facility] Co de Phone Number MANUALLY TRANSCRIBED RESULTS * CT abdomen and pelvis with contrast (12/10/2024 7:15 PM EDT) Only the most recent of2 resultswithin the time period is included. us Scanning Provider External IMG CT ORDERABLES Fin al Result Performing Organization Address [facility] Co de Phone Number MANUALLY TRANSCRIBED RESULTS from Last 3 Months Insurance [employer] Care Teams Manager Employment Relationship Specialty Start Date End Date Desmond Muñoz MD [address] [facility] [place] [address] PCP - General Family Medicine 12/22/24
--- OUTSIDE RECORDS SUMMARY | 2025-01-21 01:13 | XMS_ITS | CCD ---
Author Organization [facility] Care Team Providers Care Clothing Pattern Preparer Name Role Phone RASHAAD, DR WOODS Admitting Unavailable HOY, DR WOODS Attending Unavailable HOY, DR WOODS Primary Care Unavailable HOY, DR WOODS Admitting Unavailable HOY, DR WOODS Attending Unavailable RINKUY, DR WOODS Primary Care Unavailable RASHAAD, DR WOODS Admitting Unavailable HOChristen, DR WOODS Attending Unavailable HOY, DR WOODS Primary Care Unavailable RASHAAD, DR WOODS Consulting Unavailable Truman FUNES Attending Unavailable Nat MURRAY Attending Unavailable Nat MURRAY Attending Unavailable Truman FUNES Attending Unavailable Nat MURRAY Attending Unavailable Tuan Lira Attending Unavailable Nat MURRAY Attending Unavailable Nat MURRAY Admitting Unavailable Peggy Muñoz MD Primary Care Provider [phone] Geoffrey Ibrahim DO Attending Provider [phone] Peggy Muñoz MD Primary Care Provider [phone] Geoffrey Ibrahim DO Attending Provider [phone] Leti Ren PA-C Attending Provider [phone] NON STAFF Primary Care Provider Unavailjeremiah Rodgers MD, Derrek Attending Provider [phone] Peggy Muñoz MD Attending Provider [phone] TAJ OTERO Referring Unavailable TALITA JIASEEIN Referring Unavailable HUNTER SANONIN Referring Unavailable JEB SANON Referring Unavailable TAJ OTERO Referring Unavailable TAJ OTERO Attending Unavailable TAJ OTERO Admitting Unavailable TAJ OTERO Attending Unavailable MARY LOMAX Attending Unavailable PEGGY MUÑOZ Primary Care Unavailable Peggy Muñoz MD Primary Care Provider Unallocated Janey SANCHEZ Provider Primary Care [facility] CRISPIN EARYL Attending Unavailable Geoffrey Ibrahim Admitting Unavailable NON STAFF Primary Care Unavailable Geoffrey Ibrahim Attending Unavailable Asaad, Imad Attending Unavailable Peggy Muñoz Primary Care Unavailable Asaad, Imad Admitting Unavailable Geoffrey Ibrahim Attending Unavailable Peggy Muñoz Primary Care Unavailable Geoffrey Ibrahim Admitting Unavailable Peggy Muñoz Primary Care Unavailable Asaad, Imad Admitting Unavailable Asaad, Imad Attending Unavailable Geoffrey Ibrahim Attending Unavailable Peggy Muñoz Primary Care Unavailable Geoffrey Ibrahim Admitting Unavailable Pgegy Muñoz Attending Unavailable Peggy Muñoz Admitting Unavailable Grejorge Leti Admitting Unavailable Leti Ren Attending Unavailable NON STAFF Primary Care Unavailable Erin Marti M Admitting Unavailable Cass Khanna M Attending Unavailable Peggy Muñoz Attending Unavailable Peggy Muñoz Admitting Unavailable Asaad, Imad Admitting Unavailable Asaad, Imad Attending Unavailable Peggy Muñoz Primary Care Unavailable Geoffrey Ibrahim Admitting Unavailable Geoffrey Ibrahim Attending Unavailable Medications Current Medications Medication Drug [...] 2024 12:00am aspirin 81 mg oral tablet (12 sources) Platelet Aggregation Inhibitor, Nonsteroidal Anti-inflammatory Drug Start: 11-25-2024 take 1 capsule by mouth once daily Aspirin 81 mg capsule Active 81 MG PO Daily November 25, 2024 12:00am Start: 09-22-2024 End: 11-05-2024 Aspirin (Mihaela Low Dose Aspi rin) 81 mg tablet,delayed release (DR/EC) Discontinued 81 MG PO Daily September 22, 2024 1:00am November 05, 2024 10:12am aspirin 81 mg ch ewable tablet Chew 1 tablet (81 mg total) and swallow in the morning. Active carvedilol 6.25 mg oral tablet (20 sources) alpha-Adrenergic Elana, beta-Adrenergic Elana Start: 12-28-2024 take 1 tablet by mouth in the morning, then take 1 tablet by mouth at mealtime carvediloL (COREG) 6.25 mg tablet Take 1 tablet (6.25 mg total) by mouth in the morning and 1 tablet (6.25 mg total) in the evening. Take with meals. 12/28/2024 Active Start: 11-18-2024 take 1 tablet by rojas th twice daily Carvedilol (Coreg) 6.25 mg tablet [...] 12:00am ferrous sulfate 325 mg oral tablet (16 sources) Start: 12-03-2024 take 1 tablet by mouth in the morning, then take 1 tablet by mouth at mealtime ferrous sulfate 325 (65 FE) MG tablet Take 1 tablet (325 mg total) by mouth in the morning and 1 tablet (325 mg total) in the evening. Take with meals. 12/03/2024 Active Start: 11-18-2024 take 1 tablet by rojas th twice daily Ferrous Sulfate 325 mg (65 [...] 05, 2024 12:00am November 18, 2024 8:34am levothyroxine sodium 0.05 mg oral tablet (3 sources) l-Thyroxine Start: 12-07-2024 take 1 tablet by mouth in the morning levothyroxine (SYNTHROID, LEVOTHROID) 50 MCG tablet Take 1 tablet (50 mcg total) by mouth in the morning. 12/07/2024 Active liothyronine sodium 0.005 mg oral tablet (3 sources) l-Triiodothyronine Start: 12-15-2024 take 1 tablet by mouth in the morning liothyronine (CYTOMEL) 5 MCG tablet Take 1 tablet (5 mcg total) by mouth in the morning. 12/15/2024 Active nystatin 100 unt/mg topical powder (1 source) Polyene Antifungal nystatin (MYCOSTATIN) powder Apply 1 Application topically in the morning and 1 Application before bedtime. 100,000 unit/gram; amt: Small AMT- skin folds; topical. Active OLANZapine 2.5 mg oral tablet (2 sources) Atypical Antipsychotic Start: 11-18-2024 take 1 tablet by mouth once daily at bedtime Olanzapine 2.5 mg tablet Active 2.5 MG PO Daily at bedtime November 18, 2024 12:00am pantoprazole 40 mg delayed release oral tablet (1 source) Proton Pump Inhibitor take 1 tablet by mouth in the morning pantoprazole (PROTONIX) 40 mg EC tablet Take 1 tablet (40 mg total) by mouth in the morning. Active microencapsulated potassium chloride 20 meq extended release oral tablet (14 sources) Start: 12-21-2024 take 1 tablet by mouth in the morning potassium chloride (KLOR-CON M 20) 20 MEQ CR tablet Take 1 tablet (20 mEq total) by mouth in the morning. 12/21/2024 Active Start: 06-09-2019 take 20 mEq by mouth once jomar y Potassium Chloride (Klor-Con) 20 mEq Packet Active 20 MEQ PO Daily June 09, 2019 1:00am QUEtiapine 25 mg oral tablet (1 source) Atypical Antipsychotic Start: 11-25-2024 take 1 tablet by mouth once daily Quetiapine 25 mg tablet Active 25 MG PO Daily November 25, 2024 12:00am sacubitril 24 mg / valsartan 26 mg oral tablet (1 source) Angiotensin 2 Receptor Elana Start: 12-28-2024 take 1 tablet by mouth in the morning ENTRESTO 24-26 mg tablet Take 1 tablet by mouth in the morning and 1 tablet before bedtime. 12/28/2024 Active SITagliptin 100 mg oral tablet (2 sources) Dipeptidyl Peptidase 4 Inhibitor Start: 12-15-2024 take 1 tablet by mouth once daily Januvia 100 MG tablet Take 100 mg by mouth Daily 12/15/2024 Active Sod Picosulf-Mag Ox-Citric Ac (4 sources) Start: 11-05-2024 take 1 dose by mouth once daily Sod Picosulf-Mag Ox-Citric Ac (Clenpiq) 10 mg-3.5 gram- 12 gram/175 mL solution Active 175 ML PO Daily 350 0 November 05, 2024 12:00am Take first dose at 3pm evening before colonoscopy; second dose at 9 pm night before colonoscopy spironolactone 50 mg oral tablet (20 sources) Aldosterone Antagonist Start: 12-21-2024 take 1 tablet by mouth in the morning spironolactone (Aldactone) 50 MG tablet Take 50 mg by mouth in the morning and 50 mg in the evening. Take with meals. 12/21/2024 Active Start: 11-18-2024 take 2 tablets by mo uth twice daily Spironolactone 25 mg tablet Active [...] 12:00am vitamin b12 1 mg oral capsule (15 sources) Vitamin B12 Start: 11-25-2024 take 1 [...] MCG PO Daily July 24, 2019 12:00am take 1 tablet by rojas th in the morning cyanocobalamin (vitamin B-12) 1000 MCG tablet Take 1 tablet (1,000 mcg total) by mouth in the morning. Active Completed/Discontinued Medications Medication Drug Class(es) Dates Sig [...] [Other pancytopenia] Onset: 11-05-2024 Chronic Diabetes mellitus with complications (2 sources) Polyneuropathy due to diabetes mellitus; Translations: [Diabetes mellitus due to underlying condition with diabetic polyneuropathy] 01-18-2025 Chronic Diabetes mellitus without complication (4 sources) [...] ulna, initial encounter for closed fracture] Onset: 11-02-2024 09-18-2024 Episodic Hepatitis (18 sources) Cirrhosis - non-alcoholic; Translations: [Nonalcoholic steatohepatitis (VELOZ)] Onset: 11-05-2024 06-09-2019 Chronic Mycoses (2 sources) Pain in toe; Translations: [Tinea unguium] 01-18-2025 Episodic Other circulatory disease (4 sources) Presence of other vascular implants and grafts; Translations: [Other postprocedural status] 11-05-2024 Chronic Other diseases of veins and lymphatics (2 sources) Vascular insufficiency; Translations: [Venous insufficiency (chronic) (peripheral)] 01-18-2025 Episodic Other gastrointestinal disorders (4 sources) Refractory ascites; [...] without mention of alcohol] 11-05-2024 Episodic Other screening for suspected conditions (not [...] Problem Date Documented Da te Episodic/Chronic Other lower respiratory disease (2 sources) Shortness of breath; Translations: [Shortness of breath] Onset: 05-05-2024 Episodic Results Test Name Value Interpretation Reference Range Facility Glucose Poct Glucometerson 0 01-19-2025 Glucose [Mass/Vol] 158 mg/dL Normal [facility] Comment on above: Result Comment: [facility] Glucose Reference Range is dependent on time and content of last meal. Glucose of more than 200 mg/dL in a nonstressed, ambulatory subject supports the diagnosis of Diabetes Mellitus. PERFORMED BY: [place] [address] PATHOLOGIST EXPRESSIVE THERAPIST RADHA PFEIFFER M.D. Performed By: #### M ITOM2, HBSAG, HCBIGM, HBCAB, HBSAB, DYLAN, SMAB, HAAB, HAABT, HCV RX PCR, AFPTM, CERULOP, ALPHA PHEN, L-K MICRO, IGG, HEMOCHROM #### [facility] , #### KYLE, CMP, PT, CBC #### [facility] [address] Urine Cultureon 01-08-2025 Bacteria identified Cx Nom (U) ORGANISM: Escherichia coli (O:ESCCOL) [place] Count 30,000 Aerobic LACHELLE Charge (NMIC56) SUSCEPTIBILITY ORGANISM: O:ESCCOL ANTIBIOTIC INTERPRETATION LACHELLE Amikacin S <16 Amoxacillin/K Clavulanate S <8 Ampicillin R >16 Ampicillin/Sulbactam R >16 Aztreonam S <4 Cefazolin S 4 Cefepime S <2 Ceftazidime S <1 Ceftazidime/Avibactam S <4 Ceftolozane/Tazobactam S <2 Ceftriaxone S <1 Cefuroxime S <4 Ciprofloxacin S <0.25 Ertapenem S <0.5 Gentamicin S <2 Levofloxacin S <0.5 Meropenem S <1 Meropenem/Vaborbactam S <2 Nitrofurantoin S <32 Piperacillin/Tazobactam S <8 Tetracycline S <4 Tigecycline S <2 [...] RESISTANT TO ALL B-LACTAM DRUGS. PERFORMED BY: [place] [address] PATHOLOGIST EXPRESSIVE THERAPIST RADHA PFEIFFER M.D. Normal [facility] Comment on above: Performed By: #### M ITOM2, HBSAG, HCBIGM, HBCAB, HBSAB, DYLAN, SMAB, HAAB, HAABT, HCV RX PCR, AFPTM, CERULOP, ALPHA PHEN, L-K MICRO, IGG, HEMOCHROM #### [facility] , #### KYLE, CMP, PT, CBC #### [facility] [address] [place] [address] CT abdomen wo/w [facility] 20[address] CT abdomen wo/w [facility] [place] [address] [place] [address] CT Scan Report Signed Patient: Gerson Penn MR#: [id number] : 1955 Acct:[id number] Age/Sex: 68 / M ADM Date: 11/26/24 Loc: CT Room: Type: [facility] Attending Dr: Derrek Rodgers MD Copies to: [...] Jr., D.O. 11/26/2024 3:27 PM Dictation Location: [place] [address] Transcribed By: [facility] 11/26/24 1527 Dictated By: Gage Noland Jr, DO 11/26/24 1519 Signed By: 11/26/24 1527 Normal [facility] Urine Cultureon 11-18-2024 Bacteria identified Cx Nom (U) ORGANISM: Enterobacter cloacae complex (O:ENTCLOCPLX) [place] Count >100,000 Aerobic LACHELLE Charge (NMIC56) SUSCEPTIBILITY [...] RESISTANT TO ALL B-LACTAM DRUGS. PERFORMED BY: [place] [address] PATHOLOGIST EXPRESSIVE THERAPIST LEANDRA WALSH M.D. Normal [facility] Comment on above: Performed By: #### C UU #### [address] Urine cultureOrdered By: Wilfrido Muñoz on 11-18-2024 Bacteria identified Cx Nom (U) Abnormal [facility] AFP Tumor Marker, Serumon AFP Tumor Marker, Serum 9.3 ng/mL High 0.0-8.4 [facility] Comment on above: Result Comment: [employer] Electrochemiluminescence Immunoassay (ECLIA) Values obtained with different assay methods or kits cannot be used interchangeably. Results cannot be interpreted as absolute evidence of the presence or absence of malignant disease. This test is not interpretable in females. Performed at: [facility] [employer] [id number] Literature Professor: Stewart Palmer PhD, Phone: [phone] Performed By: #### C UU #### [address] DYLAN Antinuclear Antibodieson 11-05-2024 Antinuclear Abs, IFA Negative Normal . [facility] Comment on above: Result Comment: Nega tive <1:80 Borderline 1:80 Positive >1:80 ICAP nomenclature: AC-0 For more information about Hep-2 cell patterns use ANApatterns.org, the official website for the International Consensus on Antinuclear Antibody (DYLAN) Patterns (ICAP). Performed at: [employer] [id number] Literature Professor: Stewart Palmer PhD, Phone: [phone] Performed By: #### C UU #### [address] Actin smooth muscle IgG Ab [ Units/volume] in SerumOrdered By: Imad Asaad on 11-05-2024 Actin smooth muscle IgG Qn (S) Actin smooth muscle IgG Ab [Units/volume] in Serum 0-19 [facility] Comment on above: Negative 0 - [...] activity/volume] in Serum or Plasma High 7-52 [facility] Albumin [Mass/volume] in Ser um or Plasma by Bromocresol green (BCG) dye binding methoOrdered By: Imad Asaad on 11-05-2024 Albumin BCG dye [Mass/Vol] Albumin [Mass/volume] in Serum or Plasma by Bromocresol green (BCG) dye binding metho Low 3.5-5.7 [facility] Alkaline phosphatase [Enzyma tic activity/volume] in Serum or PlasmaOrdered By: Derrek Rodgers on 11-05-2024 ALP [Catalytic activity/Vol] Alkaline phosphatase [Enzymatic activity/volume] in Serum or Plasma High 34-104 [facility] Ebpop-4-Ihwqzjzvftz Phenotyp gonzales 11-05-2024 Alpha 1 Anti-Trypsin 104 mg/dL Normal 101-187 [facility] Comment on above: Performed By: #### C UU #### [address] Phenotype (P1) MS Normal . [facility] Comment on above: Result Comment: MM Phenotype is considered to be normal , producing normal serum levels of ddsvo-8-opaxfuei inhibitor and not associated with clinical disease. [...] used to confirm phenotype. Performed at: - [facility] [id number] Literature Professor: Stewart Palmer PhD, Phone: [phone] Performed at: [facility] [id number] Literature Professor: Beto Vincent MD, Phone: [phone] Performed By: #### C UU #### [facility] [address] [place] [address] [facility] Aspartate aminotransferase [ Enzymatic activity/volume] in Serum or PlasmaOrdered By: Imad Asaad on 11-05-2024 AST [Catalytic activity/Vol] Aspartate aminotransferase [Enzymatic activity/volume] in Serum or Plasma High 13-39 [facility] Basophils Auto (Bld) [#/Vol] Ordered By: Imad Asaad on 11-05-2024 Basophils (Bld) [#/Vol] Automated basophil count 0.0-0.2 [facility] Basophils/100 WBC Auto (Bld) Ordered By: Imad Asaad on 11-05-2024 Basophils/100 WBC (Bld) Automated basophil % . [facility] Bilirubin.total [Mass/volume ] in Serum or PlasmaOrdered By: Imad Asaad on 11-05-2024 Bilirubin [Mass/Vol] Bilirubin.total [Mass/volume] in Serum or Plasma High 0.3-1.0 [facility] Comment on above: Samples from patient s who have taken Naproxen have shown spurious elevation in Total Bilirubin levels. A metabolite of Naproxen, O-desmethylnaproxen, has been shown to interfere with the Apik-Grosara method for measuring Total Bilirubin. Blood or tissue HFE gene mut ations identification by molecular genetics methodOrdered By: ad [facility] on 11-05-2024 HFE gene targeted [facility]Bld[facility]Tiss[facility] Blood or tissue HFE gene mutations identification by molecular genetics method . [facility] Comment on above: Result:c.845G>A (p.C xh890Lxp) - Not Detectedc.187C>G (p.Nhj73Uic) - Not Detectedc.193A>T (p.Nfx62Uup) - Not DetectedNot associated with increased risk [...] recommended for patientswho are homozygous for c.845G>A (p.Fwg028Eux) and have yetto experience clinical symptoms.Comments:The most common HFE variants associated with hereditaryhemochromatosis are c.845G>A (p.Ver001Isb), c.187C>G(p.Ish93Udo), c.193A>T (p.Rok40Cwh). While patientshomozygous for c.845G>A (p.Yfs813Ehr) are the most likelyto present clinical symptoms, less than 10% developclinically significant iron overload with tissue and organdamage.Genetic counseling is recommended to discuss the potentialclinical implications of positive results, as well asrecommendations for testing family members.Genetic Coordinators are available for health careproviders to discuss results at [phone]).Test Details:Three variants analyzed:c.845G>A (p.Yox031Rij), commonly referred to as C282Yc.187C>G (p.Rjr29Sej), commonly referred to as H63Dc.193A>T (p.Eqb96Kww), commonly referred to as G52DUulwxya/Limitations:DNA Analysis of the HFE gene (NM_000410.4) was [...] was developed and its performancecharacteristics determined by [employer]. It has not beencleared or approved by the Food and Drug Administration.References:Rafa BR, Vel PC, Art KV, Wai LW, Nate ;[place] [employer] for the [employer] Liver Diseases.Diagnosis and management of hemochromatosis: 2011 practiceguideline by the [place] Association for the Study ofLiver Diseases. Hepatology. 2010;54(1):328-43. doi:10.1002/hep.92960. PMID: 76446624; PMCID: HYE3446151.Nigel G, Clay P, Fatoumata NINA, Mervat H, Juan O,Alex S, Raulito I, Marv Harrison, Jimbo S. [facility] best practiceguidelines for the molecular genetic diagnosis ofhereditary hemochromatosis (HH). Eur J Hum Neelima. 2016Apr;24(4):479-95. doi: 10.1038/ejhg.2015.128. Epub 2014. PMID: 11609166; PMCID: LES0996706. Calcium [Mass/volume] in Ser um or PlasmaOrdered By: Imad Asaad on 11-05-2024 Calcium [Mass/Vol] Calcium [Mass/volume ] in Serum or Plasma 8.6-10.3 [facility] Carbon dioxide, total [Moles /volume] in Serum or PlasmaOrdered By: Imad Asaad on 11-05-2024 CO2 [Moles/Vol] Carbon dioxide, tota l [Moles/volume] in Serum or Plasma 21.0-31.0 [facility] Ceruloplasminon 11-05-2024 Ceruloplasmin 19.1 mg/dL Normal 16.0-31.0 [facility] Comment on above: Result Comment: Perf ormed at: CB - [facility] [address] [id number] Literature Professor: Stewart Palmer PhD, Phone: [phone] PERFORMED BY: [place] [address] PATHOLOGIST EXPRESSIVE THERAPIST LEANDRA WALSH M.D. Performed By: #### C UU #### [address] Chloride [Moles/volume] in S saud or PlasmaOrdered By: Imad Asaad on 11-05-2024 Chloride [Moles/Vol] Chloride [Moles/vol ume] in Serum or Plasma 98-107 [facility] Complete Blood Count Auto Di ffon 11-05-2024 Basophils (Bld) [#/Vol] 0.0 10*3/uL Normal 0.0-0.2 [facility] Comment on above: Result Comment: PERF ORMED BY: [place] [address] PATHOLOGIST EXPRESSIVE THERAPIST LEANDRA WALSH M.D. Performed By: #### M ITOM2, HBSAG, HCBIGM, HBCAB, HBSAB, DYLAN, SMAB, HAAB, HAABT, HCV RX PCR, AFPTM, CERULOP, ALPHA PHEN, L-K MICRO, IGG, HEMOCHROM #### [facility] , #### KYLE, CMP, PT, CBC #### [address] Basophils/100 WBC (Bld) 0.7 % Normal . [facility] Comment on above: Performed By: #### M ITOM2, HBSAG, HCBIGM, HBCAB, HBSAB, DYLAN, SMAB, HAAB, HAABT, HCV RX PCR, AFPTM, CERULOP, ALPHA PHEN, L-K MICRO, IGG, HEMOCHROM #### [facility] , #### KYLE, CMP, PT, CBC #### [address] Eosinophils (Bld) [#/Vol] 0.1 10*3/uL Normal 0.0-0.45 [facility] Comment on above: Performed By: #### M ITOM2, HBSAG, HCBIGM, HBCAB, HBSAB, DYLAN, SMAB, HAAB, HAABT, HCV RX PCR, AFPTM, CERULOP, ALPHA PHEN, L-K MICRO, IGG, HEMOCHROM #### [facility] , #### KYLE, CMP, PT, CBC #### [place] [address] [place] Eosinophils/100 WBC (Bld) 1.8 % Normal . [facility] Comment on above: Performed By: #### M ITOM2, HBSAG, HCBIGM, HBCAB, HBSAB, DYLAN, SMAB, HAAB, HAABT, HCV RX PCR, AFPTM, CERULOP, ALPHA PHEN, L-K MICRO, IGG, HEMOCHROM #### [facility] , #### KYLE, CMP, PT, CBC #### [address] Erythrocyte distribution width (RBC) [Ratio] 19.0 % High 12.0-14.8 [facility] Comment on above: Performed By: #### M ITOM2, HBSAG, HCBIGM, HBCAB, HBSAB, DYLAN, SMAB, HAAB, HAABT, HCV RX PCR, AFPTM, CERULOP, ALPHA PHEN, L-K MICRO, IGG, HEMOCHROM #### [facility] , #### KYLE, CMP, PT, CBC #### [address] Hematocrit (Bld) [Volume fraction] 37.3 % Low 38.8-50.0 [facility] Comment on above: Performed By: #### M ITOM2, HBSAG, HCBIGM, HBCAB, HBSAB, DYLAN, SMAB, HAAB, HAABT, HCV RX PCR, AFPTM, CERULOP, ALPHA PHEN, L-K MICRO, IGG, HEMOCHROM #### [facility] , #### KYLE, CMP, PT, CBC #### [address] Hemoglobin (Bld) [Mass/Vol] 12.7 g/dL Low 13.0-17.0 [facility] Comment on above: Performed By: #### M ITOM2, HBSAG, HCBIGM, HBCAB, HBSAB, DYLAN, SMAB, HAAB, HAABT, HCV RX PCR, AFPTM, CERULOP, ALPHA PHEN, L-K MICRO, IGG, HEMOCHROM #### [facility] , #### KYLE, CMP, PT, CBC #### [address] Lymphocytes (Bld) [#/Vol] 0.8 10*3/uL Low 1.00-4.8 [facility] Comment on above: Performed By: #### M ITOM2, HBSAG, HCBIGM, HBCAB, HBSAB, DYLAN, SMAB, HAAB, HAABT, HCV RX PCR, AFPTM, CERULOP, ALPHA PHEN, L-K MICRO, IGG, HEMOCHROM #### [facility] , #### KYLE, CMP, PT, CBC #### [address] Lymphocytes/100 WBC (Bld) 11.1 % Normal . [facility] Comment on above: Performed By: #### M ITOM2, HBSAG, HCBIGM, HBCAB, HBSAB, DYLAN, SMAB, HAAB, HAABT, HCV RX PCR, AFPTM, CERULOP, ALPHA PHEN, L-K MICRO, IGG, HEMOCHROM #### [facility] , #### KYLE, CMP, PT, CBC #### [address] MCH (RBC) [Entitic mass] 34.2 pg Normal 27.5-35.2 [facility] Comment on above: Performed By: #### M ITOM2, HBSAG, HCBIGM, HBCAB, HBSAB, DYLAN, SMAB, HAAB, HAABT, HCV RX PCR, AFPTM, CERULOP, ALPHA PHEN, L-K MICRO, IGG, HEMOCHROM #### [facility] , #### KYLE, CMP, PT, CBC #### [address] MCV (RBC) [Entitic vol] 100.9 fL Normal 83.5-101 [facility] Comment on above: Performed By: #### M ITOM2, HBSAG, HCBIGM, HBCAB, HBSAB, DYLAN, SMAB, HAAB, HAABT, HCV RX PCR, AFPTM, CERULOP, ALPHA PHEN, L-K MICRO, IGG, HEMOCHROM #### [facility] , #### KYLE, CMP, PT, CBC #### [address] Mean Corpuscular HGB Conc 33.9 g/dL Normal 32.5-35.6 [facility] Comment on above: Performed By: #### M ITOM2, HBSAG, HCBIGM, HBCAB, HBSAB, DYLAN, SMAB, HAAB, HAABT, HCV RX PCR, AFPTM, CERULOP, ALPHA PHEN, L-K MICRO, IGG, HEMOCHROM #### [facility] , #### KYLE, CMP, PT, CBC #### [address] Monocytes (Bld) [#/Vol] 0.5 10*3/uL Normal 0.0-0.8 [facility] Comment on above: Performed By: #### M ITOM2, HBSAG, HCBIGM, HBCAB, HBSAB, DYLAN, SMAB, HAAB, HAABT, HCV RX PCR, AFPTM, CERULOP, ALPHA PHEN, L-K MICRO, IGG, HEMOCHROM #### [facility] , #### KYLE, CMP, PT, CBC #### [address] Monocytes/100 WBC (Bld) 7.8 % Normal . [facility] Comment on above: Performed By: #### M ITOM2, HBSAG, HCBIGM, HBCAB, HBSAB, DYLAN, SMAB, HAAB, HAABT, HCV RX PCR, AFPTM, CERULOP, ALPHA PHEN, L-K MICRO, IGG, HEMOCHROM #### [facility] , #### KYLE, CMP, PT, CBC #### [address] Neutrophils (Bld) [#/Vol] 5.4 10*3/uL Normal 1.8-7.7 [facility] Comment on above: Performed By: #### M ITOM2, HBSAG, HCBIGM, HBCAB, HBSAB, DYLAN, SMAB, HAAB, HAABT, HCV RX PCR, AFPTM, CERULOP, ALPHA PHEN, L-K MICRO, IGG, HEMOCHROM #### [facility] , #### KYLE, CMP, PT, CBC #### [address] Neutrophils/100 WBC (Bld) 78.6 % Normal . [facility] Comment on above: Performed By: #### M ITOM2, HBSAG, HCBIGM, HBCAB, HBSAB, DYLAN, SMAB, HAAB, HAABT, HCV RX PCR, AFPTM, CERULOP, ALPHA PHEN, L-K MICRO, IGG, HEMOCHROM #### [facility] , #### KYLE, CMP, PT, CBC #### [address] NRBC% 0.1 /100{WBC} Normal 0-0.5 [facility] Comment on above: Performed By: #### M ITOM2, HBSAG, HCBIGM, HBCAB, HBSAB, DYLAN, SMAB, HAAB, HAABT, HCV RX PCR, AFPTM, CERULOP, ALPHA PHEN, L-K MICRO, IGG, HEMOCHROM #### [facility] , #### KYLE, CMP, PT, CBC #### [address] Platelet mean volume (Bld) [Entitic vol] 7.9 fL Normal 6.6-10.1 [facility] Comment on above: Performed By: #### M ITOM2, HBSAG, HCBIGM, HBCAB, HBSAB, DYLAN, SMAB, HAAB, HAABT, HCV RX PCR, AFPTM, CERULOP, ALPHA PHEN, L-K MICRO, IGG, HEMOCHROM #### [facility] , #### KYLE, CMP, PT, CBC #### [address] Platelets (Bld) [#/Vol] 172 10*3/uL Normal 150-450 [facility] Comment on above: Performed By: #### M ITOM2, HBSAG, HCBIGM, HBCAB, HBSAB, DYLAN, SMAB, HAAB, HAABT, HCV RX PCR, AFPTM, CERULOP, ALPHA PHEN, L-K MICRO, IGG, HEMOCHROM #### [facility] , #### KYLE, CMP, PT, CBC #### [address] RBC (Bld) [#/Vol] 3.70 10*6/uL Low 3.90-5.60 [facility] Comment on above: Performed By: #### M ITOM2, HBSAG, HCBIGM, HBCAB, HBSAB, DYLAN, SMAB, HAAB, HAABT, HCV RX PCR, AFPTM, CERULOP, ALPHA PHEN, L-K MICRO, IGG, HEMOCHROM #### [facility] , #### KYLE, CMP, PT, CBC #### [address] WBC (Bld) [#/Vol] 6.8 10*3/uL Normal 4.1-10.5 [facility] Comment on above: Performed By: #### M ITOM2, HBSAG, HCBIGM, HBCAB, HBSAB, DYLAN, SMAB, HAAB, HAABT, HCV RX PCR, AFPTM, CERULOP, ALPHA PHEN, L-K MICRO, IGG, HEMOCHROM #### [facility] , #### KYLE, CMP, PT, CBC #### [address] Comprehensive Metabolic Pane levy 11-05-2024 Albumin [Mass/Vol] 2.1 g/dL Low 3.5-5.7 [facility] Comment on above: Performed By: #### M ITOM2, HBSAG, HCBIGM, HBCAB, HBSAB, DYLAN, SMAB, HAAB, HAABT, HCV RX PCR, AFPTM, CERULOP, ALPHA PHEN, L-K MICRO, IGG, HEMOCHROM #### [facility] , #### KYLE, CMP, PT, CBC #### [facility] [address] Albumin/Globulin [Mass ratio] 0.6 {ratio} Normal [facility] Comment on above: Performed By: #### M ITOM2, HBSAG, HCBIGM, HBCAB, HBSAB, DYLAN, SMAB, HAAB, HAABT, HCV RX PCR, AFPTM, CERULOP, ALPHA PHEN, L-K MICRO, IGG, HEMOCHROM #### [facility] , #### KYLE, CMP, PT, CBC #### [facility] [address] ALP [Catalytic activity/Vol] 245 U/L High 34-104 [facility] Comment on above: Performed By: #### M ITOM2, HBSAG, HCBIGM, HBCAB, HBSAB, DYLAN, SMAB, HAAB, HAABT, HCV RX PCR, AFPTM, CERULOP, ALPHA PHEN, L-K MICRO, IGG, HEMOCHROM #### [facility] , #### KYLE, CMP, PT, CBC #### [facility] [address] ALT [Catalytic activity/Vol] 86 U/L High 7-52 [facility] Comment on above: Performed By: #### M ITOM2, HBSAG, HCBIGM, HBCAB, HBSAB, DYLAN, SMAB, HAAB, HAABT, HCV RX PCR, AFPTM, CERULOP, ALPHA PHEN, L-K MICRO, IGG, HEMOCHROM #### [facility] , #### KYLE, CMP, PT, CBC #### [facility] [address] Anion gap [Moles/Vol] 10.5 mmol/L Normal 6.0-15.0 [facility] Comment on above: Performed By: #### M ITOM2, HBSAG, HCBIGM, HBCAB, HBSAB, DYLAN, SMAB, HAAB, HAABT, HCV RX PCR, AFPTM, CERULOP, ALPHA PHEN, L-K MICRO, IGG, HEMOCHROM #### [facility] , #### KYLE, CMP, PT, CBC #### [address] AST [Catalytic activity/Vol] 77 U/L High 13-39 [facility] Comment on above: Performed By: #### M ITOM2, HBSAG, HCBIGM, HBCAB, HBSAB, DYLAN, SMAB, HAAB, HAABT, HCV RX PCR, AFPTM, CERULOP, ALPHA PHEN, L-K MICRO, IGG, HEMOCHROM #### [facility] , #### KYLE, CMP, PT, CBC #### [address] Bilirubin [Mass/Vol] 3.2 mg/dL High 0.3-1.0 [facility] Comment on above: Result Comment: Samp les from patients who have taken Naproxen have shown spurious elevation in Total Bilirubin levels. A metabolite of Naproxen, O-desmethylnaproxen, has been shown to interfere with the Jendrassik-Grof method for measuring Total Bilirubin. Performed By: #### M ITOM2, HBSAG, HCBIGM, HBCAB, HBSAB, DYLAN, SMAB, HAAB, HAABT, HCV RX PCR, AFPTM, CERULOP, ALPHA PHEN, L-K MICRO, IGG, HEMOCHROM #### [facility] , #### KYLE, CMP, PT, CBC #### [address] Calcium [Mass/Vol] 8.9 mg/dL Normal 8.6-10.3 [facility] Comment on above: Performed By: #### M ITOM2, HBSAG, HCBIGM, HBCAB, HBSAB, DYLAN, SMAB, HAAB, HAABT, HCV RX PCR, AFPTM, CERULOP, ALPHA PHEN, L-K MICRO, IGG, HEMOCHROM #### [facility] , #### KYLE, CMP, PT, CBC #### [address] [address] [place] Chloride [Moles/Vol] 100 mmol/L Normal 98-107 [facility] Comment on above: Performed By: #### M ITOM2, HBSAG, HCBIGM, HBCAB, HBSAB, DYLAN, SMAB, HAAB, HAABT, HCV RX PCR, AFPTM, CERULOP, ALPHA PHEN, L-K MICRO, IGG, HEMOCHROM #### [facility] , #### KYLE, CMP, PT, CBC #### [address] CO2 [Moles/Vol] 28.4 mmol/L Normal 21.0-31.0 [facility] Comment on above: Performed By: #### M ITOM2, HBSAG, HCBIGM, HBCAB, HBSAB, DYLAN, SMAB, HAAB, HAABT, HCV RX PCR, AFPTM, CERULOP, ALPHA PHEN, L-K MICRO, IGG, HEMOCHROM #### [facility] , #### KYLE, CMP, PT, CBC #### [address] Creatinine [Mass/Vol] 1.18 mg/dL Normal 0.70-1.30 [facility] Comment on above: Performed By: #### M ITOM2, HBSAG, HCBIGM, HBCAB, HBSAB, DYLAN, SMAB, HAAB, HAABT, HCV RX PCR, AFPTM, CERULOP, ALPHA PHEN, L-K MICRO, IGG, HEMOCHROM #### [facility] , #### KYLE, CMP, PT, CBC #### [address] GFR/1.73 sq M.predicted MDRD (S/P/Bld) [Vol rate/Area] mL/min/{1.73_m2} Normal [facility] Comment on above: Performed By: #### M ITOM2, HBSAG, HCBIGM, HBCAB, HBSAB, DYLAN, SMAB, HAAB, HAABT, HCV RX PCR, AFPTM, CERULOP, ALPHA PHEN, L-K MICRO, IGG, HEMOCHROM #### [facility] , #### KYLE, CMP, PT, CBC #### [address] Globulin (S) [Mass/Vol] 3.3 g/dL Normal [facility] Comment on above: Performed By: #### M ITOM2, HBSAG, HCBIGM, HBCAB, HBSAB, DYLAN, SMAB, HAAB, HAABT, HCV RX PCR, AFPTM, CERULOP, ALPHA PHEN, L-K MICRO, IGG, HEMOCHROM #### [facility] , #### KYLE, CMP, PT, CBC #### [address] Glucose [Mass/Vol] 215 mg/dL High 70-100 [facility] Comment on above: Result Comment: [facility] Glucose Reference Range is dependent on time and content of last meal. Glucose of more than 200 mg/dL in a nonstressed, ambulatory subject supports the diagnosis of Diabetes Mellitus. ADA recommended reference range Performed By: #### M ITOM2, HBSAG, HCBIGM, HBCAB, HBSAB, DYLAN, SMAB, HAAB, HAABT, HCV RX PCR, AFPTM, CERULOP, ALPHA PHEN, L-K MICRO, IGG, HEMOCHROM #### [facility] , #### KYLE, CMP, PT, CBC #### [address] Potassium [Moles/Vol] 4.9 mmol/L Normal 3.5-5.1 [facility] Comment on above: Performed By: #### M ITOM2, HBSAG, HCBIGM, HBCAB, HBSAB, DYLAN, SMAB, HAAB, HAABT, HCV RX PCR, AFPTM, CERULOP, ALPHA PHEN, L-K MICRO, IGG, HEMOCHROM #### [facility] , #### KYLE, CMP, PT, CBC #### [address] Protein [Mass/Vol] 5.4 g/dL Low 6.4-8.9 [facility] Comment on above: Performed By: #### M ITOM2, HBSAG, HCBIGM, HBCAB, HBSAB, DYLAN, SMAB, HAAB, HAABT, HCV RX PCR, AFPTM, CERULOP, ALPHA PHEN, L-K MICRO, IGG, HEMOCHROM #### [facility] , #### KYLE, CMP, PT, CBC #### [address] Sodium [Moles/Vol] 134 mmol/L Low 136-145 [facility] Comment on above: Performed By: #### M ITOM2, HBSAG, HCBIGM, HBCAB, HBSAB, DYLAN, SMAB, HAAB, HAABT, HCV RX PCR, AFPTM, CERULOP, ALPHA PHEN, L-K MICRO, IGG, HEMOCHROM #### [facility] , #### KYLE, CMP, PT, CBC #### [address] Urea nitrogen [Mass/Vol] 28 mg/dL High 7-25 [facility] Comment on above: Performed By: #### M ITOM2, HBSAG, HCBIGM, HBCAB, HBSAB, DYLAN, SMAB, HAAB, HAABT, HCV RX PCR, AFPTM, CERULOP, ALPHA PHEN, L-K MICRO, IGG, HEMOCHROM #### [facility] , #### KYLE, CMP, PT, CBC #### [address] Creatinine [Mass/volume] in Serum or PlasmaOrdered By: Imad Asaad on 11-05-2024 Creatinine [Mass/Vol] Creatinine [Mass/v olume] in Serum or Plasma 0.70-1.30 [facility] Eosinophils Auto (Bld) [#/Vo l]Ordered By: Imad Asaad on 11-05-2024 Eosinophils (Bld) [#/Vol] Automated eosinophil count 0.0-0.45 [facility] Eosinophils/100 WBC Auto (Bl d)Ordered By: Imad Asaad on 11-05-2024 Eosinophils/100 WBC (Bld) Automated eosinophil % . [facility] Erythrocyte distribution wid th Auto (RBC) [Ratio]Ordered By: [facility] on 11-05-2024 Erythrocyte distribution width (RBC) [Ratio] Erythrocyte distribution width [Ratio] by Automated count High 12.0-14.8 [facility] Ferritinon 11-05-2024 Ferritin [Mass/Vol] 1486.4 ng/mL High 23.9-336.2 [facility] Comment on above: Result Comment: PERF ORMED BY: [place] [address] PATHOLOGIST EXPRESSIVE THERAPIST LEANDRA WALSH M.D. Performed By: #### M ITOM2, HBSAG, HCBIGM, HBCAB, HBSAB, DYLAN, SMAB, HAAB, HAABT, HCV RX PCR, AFPTM, CERULOP, ALPHA PHEN, L-K MICRO, IGG, HEMOCHROM #### [facility] , #### KYLE, CMP, PT, CBC #### [facility] [address] Ferritin [Mass/volume] in Se rum or PlasmaOrdered By: [facility] on 11-05-2024 Ferritin [Mass/Vol] Ferritin [Mass/volum e] in Serum or Plasma High 23.9-336.2 [facility] Globulin Calc (S) [Mass/Vol] Ordered By: [facility] 11-05-2024 Globulin (S) [Mass/Vol] Serum globulin measurement by calculation (mass/volume) [facility] Glucose [Mass/volume] in Ser um or PlasmaOrdered By: [facility] on 11-05-2024 Glucose [Mass/Vol] Glucose [Mass/volume ] in Serum or Plasma High 70-100 [facility] Comment on above: ADA recommended refe rence rangeRandom Glucose Reference Range is dependent on time and content of last meal. Glucose of more than 200 mg/dL in a nonstressed, ambulatory subject supports the diagnosis of Diabetes Mellitus. Hematocrit Auto (Bld) [Volum e fraction]Ordered By: [facility]w [facility] on 11-05-2024 Hematocrit (Bld) [Volume fraction] Hematocrit [Volume Fraction] of Blood by Automated count Low 38.8-50.0 [facility] Hemoglobin [Mass/volume] in BloodOrdered By: Derrek Rodgers on 11-05-2024 Hemoglobin (Bld) [Mass/Vol] Hemoglobin [Mass/volume] in Blood Low 13.0-17.0 [facility] Hep C Ab wRfx to Qnt PCRon 0 11-05-2024 Hepatitis C Virus Antibody Non-Reactive Normal Non Reactive [facility] Comment on above: Performed By: #### M ITOM2, HBSAG, HCBIGM, HBCAB, HBSAB, DYLAN, SMAB, HAAB, HAABT, HCV RX PCR, AFPTM, CERULOP, ALPHA PHEN, L-K MICRO, IGG, HEMOCHROM #### [facility] , #### KYLE, CMP, PT, CBC #### [facility] [address] Interpretation Hepatitis C Comment Normal . [facility] Comment on above: Result Comment: Not infected with HCV unless early or acute infection is suspected (which may be delayed in an immunocompromised individual), or other evidence exists to indicate HCV infection. Performed By: #### M ITOM2, HBSAG, HCBIGM, HBCAB, HBSAB, DYLAN, SMAB, HAAB, HAABT, HCV RX PCR, AFPTM, CERULOP, ALPHA PHEN, L-K MICRO, IGG, HEMOCHROM #### [facility] , #### KYLE, CMP, PT, CBC #### [facility] [address] Hepatitis A Antibody IgMon 0 11-05-2024 Hepatitis A Antibody IgM Negative Normal Negative [facility] Comment on above: Result Comment: A ne gative anti-HAV IgM result suggests no recent or current HAV infection. Performed By: #### M ITOM2, HBSAG, HCBIGM, HBCAB, HBSAB, DYLAN, SMAB, HAAB, HAABT, HCV RX PCR, AFPTM, CERULOP, ALPHA PHEN, L-K MICRO, IGG, HEMOCHROM #### [facility] , #### KYLE, CMP, PT, CBC #### [facility] [address] Hepatitis A Antibody Totalon 11-05-2024 Hepatitis A Antibody Total Negative Normal Negative [facility] Comment on above: Result Comment: Comm ent: The HAV total antibody assay detects both IgG and IgM but does not differentiate between them. A negative result suggests susceptibility to infection. A positive result could be due to vaccination, previously resolved infection or active infection. Testing for HAV IgM should be performed if active HAV infection is suspected. [facility] offers profiles that will automatically reflex positive HAV total antibody results to IgM (e.g., panel #[id number] HAV Antibody w/ Rfx). Performed By: #### M ITOM2, HBSAG, HCBIGM, HBCAB, HBSAB, DYLAN, SMAB, HAAB, HAABT, HCV RX PCR, AFPTM, CERULOP, ALPHA PHEN, L-K MICRO, IGG, HEMOCHROM #### [facility] , #### KYLE, CMP, PT, CBC #### [facility] [address] [place] [address] Hepatitis A virus Ab [Presen ce] in Serum by ImmunoassayOrdered By: Derrek Rodgers on 11-05-2024 HAV Ab IA Ql (S) Hepatitis A virus Ab [Presence] in Serum by Immunoassay Negative [facility] Comment on above: Comment: The HAV [...] HAVtotal antibody results to IgM (e.g., panel #[id number] HAVAntibody w/ Rfx). Hepatitis A virus IgM antibo dy assayOrdered By: Derrek Rodgers on 11-05-2024 Hepatitis A IgM Antibody Negative Negative [facility] Comment on above: A negative anti-HAV IgM result suggests no recent orcurrent HAV infection. Hepatitis B Core Antibodyon 11-05-2024 Hepatitis B Core Antibody Negative Normal Negative [facility] Comment on above: Performed By: #### C UU #### [place] [address] [place] Hepatitis B Core Antibody Ig Mon 11-05-2024 Hepatitis B Core Antibody IgM Negative Normal Negative [facility] Comment on above: Result Comment: Perf ormed at: - [facility] [place] [address] [place], [place] [id number] Literature Professor: Stewart Palemr PhD, Phone: [phone] Performed By: #### M ITOM2, HBSAG, HCBIGM, HBCAB, HBSAB, DYLAN, SMAB, HAAB, HAABT, HCV RX PCR, AFPTM, CERULOP, ALPHA PHEN, L-K MICRO, IGG, HEMOCHROM #### [facility] , #### KYLE, CMP, PT, CBC #### [address] Hepatitis B Surface Antibody on 11-05-2024 Hepatitis B Surface Antibody Non-Reactive Normal . [facility] Comment on above: Result Comment: Non Reactive: Not immune to HBV infection. Equivocal: Unable to determine if anti-HBs is present at levels consistent with immunity. Reactive: Anti-HBs concentration detected at greater than 10 mIU/mL. Individual is considered to be immune to infection with HBV. Performed By: #### C UU #### [address] Hepatitis B Surface Antigeno n 11-05-2024 HBsAg Screen Negative Normal Negative [facility] Comment on above: Result Comment: PERF ORMED BY: [place] [address] PATHOLOGIST EXPRESSIVE THERAPIST LEANDRA WALSH M.D. Performed By: #### C UU #### [address] Hepatitis B virus core IgM a ntibody assayOrdered By: Derrek Rodgers on 11-05-2024 Hepatitis B Core IgM Antibody Negative Negative [facility] Comment on above: Performed at: [facility] [id number] [place], [place] [id number] Director: Stewart Palmer PhD, Phone: [phone] Hepatitis B virus core antib sarai assayOrdered By: Derrek Rodgers on 11-05-2024 Hepatitis B Core Total Antibody Negative Negative [facility] Hepatitis C virus IgG Ab [Pr esence] in Serum or Plasma by ImmunoassayOrdered By: Derrek Rodgers on 11-05-2024 HCV IgG IA Ql Hepatitis C virus Ig G Ab [Presence] in Serum or Plasma by Immunoassay Non Reactive [facility] Hereditary Hemochromatosis,D NEALon 11-05-2024 Hereditary Hemochromatosis Comment Normal . [facility] Comment on above: Result Comment: Resu lt: c.845G>A (p.Hnc911Zfj) - Not Detected c.187C>G (p.Flu10Bju) - Not Detected c.193A>T (p.Tgv01Fof) - Not Detected Not associated with increased [...] for patients who are homozygous for c.845G>A (p.Czk061Cnx) and have yet to experience clinical symptoms. Comments: The most common HFE variants associated with hereditary hemochromatosis are c.845G>A (p.Wov378Hqa), c.187C>G (p.Jrd65Wlz), c.193A>T (p.Hsv52Qyl). While patients homozygous for c.845G>A (p.Nab268Rto) are the most likely to present clinical symptoms, less than 10% develop clinically significant iron overload with tissue and organ damage. Genetic counseling is recommended to discuss the potential clinical implications of positive results, as well as recommendations for testing family members. Genetic Coordinators are available for health care providers to discuss results at [phone] Test Details: Three variants analyzed: c.845G>A (p.Kfw488Oci), commonly referred to as C282Y c.187C>G (p.Bif24Iia), commonly referred to as H63D c.193A>T (p.Hlc26Euc), commonly referred to as S65C Methods/Limitations: DNA [...] developed and its performance characteristics determined by [employer]. It has not been cleared or approved by the Food and Drug Administration. References: Rafa BR, Vel PC, Art KV, Wai LW, Nate ; [place] [employer]. Diagnosis and management of hemochromatosis: 2011 practice guideline by the [place] [employer] Liver [employer]. Hepatology. 2011 Jan;54(1):328-43. doi: 10.1002/hep.63855. PMID: 03472748; PMCID: [id number]. Nigel G, Clay P, Fatoumata DW, Mervat H, Juan O, Alex S, Raulito I, Marv M, Jimbo S. [facility] best practice guidelines for the molecular genetic diagnosis of hereditary hemochromatosis (HH). Eur J Hum [place]ima. 2016 Oct;24(4):479-95. doi: 10.1038/ejhg.2015.128. Epub 2014Feb 02. PMID: 29371982; PMCID: [id number]. Performed By: #### M ITOM2, HBSAG, HCBIGM, HBCAB, HBSAB, DYLAN, SMAB, HAAB, HAABT, HCV RX PCR, AFPTM, CERULOP, ALPHA PHEN, L-K MICRO, IGG, HEMOCHROM #### [facility] , #### KYLE, CMP, PT, CBC #### [facility] [address] Reviewed by: Comment Normal . [facility] Comment on above: Result Comment: Tech nical Component performed at [facility] Professional Component performed by: Richa Cuba, Ph.D., FACMG Director, Molecular Genetics [address] [place] [address] [facility] [address] Performed at: - [facility] [address] [place], [place] [id number] Literature Professor: Daryl Lara [facility], Phone: [phone] PERFORMED BY: [place] [address] PATHOLOGIST EXPRESSIVE THERAPIST LEANDRA WALSH M.D. Performed By: #### M ITOM2, HBSAG, HCBIGM, HBCAB, HBSAB, DYLAN, SMAB, HAAB, HAABT, HCV RX PCR, AFPTM, CERULOP, ALPHA PHEN, L-K MICRO, IGG, HEMOCHROM #### [facility] , #### KYLE, CMP, PT, CBC #### [facility] [address] INR in Platelet poor plasma by Coagulation assayOrdered By: Derrek Rodgers on 11-05-2024 INR Coag (PPP) [Relative time] INR in Platelet poor plasma by Coagulation assay [facility] Comment on above: INR Therapeutic Rang [...] Immunoglobulin G 1263 mg/dL Normal 603-1613 [facility] Comment on above: Result Comment: Perf ormed at: CB - [facility] [address] [id number] Literature Professor: Stewart Palmer PhD, Phone: [phone] Performed By: #### C UU #### [facility] [address] Leukocytes [#/volume] correc adrián for nucleated erythrocytes in Blood by Automated counOrdered By: Imad Asaad on 11-05-2024 WBC corrected for nucl RBC Auto (Bld) [#/Vol] Leukocytes [#/volume] corrected for nucleated erythrocytes in Blood by Automated coun 4.1-10.5 [facility] Liver-Kidney Microsomal Abon 11-05-2024 Liver-Kidney Microsomal Ab <1.0 Normal 0.0-20.0 [facility] Comment on above: Result Comment: Nega tive 0.0 - 20.0 Equivocal 20.1 - 24.9 Positive >24.9 LKM type 1 antibodies are detected in patients with autoimmune hepatitis type 2 and in up to 8% of patients with chronic HCV infection. Performed at: - [facility] [id number] Literature Professor: Stewart Palmer PhD, Phone: [phone] Performed By: #### M ITOM2, HBSAG, HCBIGM, HBCAB, HBSAB, DYLAN, SMAB, HAAB, HAABT, HCV RX PCR, AFPTM, CERULOP, ALPHA PHEN, L-K MICRO, IGG, HEMOCHROM #### [facility] , #### KYLE, CMP, PT, CBC #### [facility] [address] [place] [address] Lymphocytes Auto (Bld) [#/Vo l]Ordered By: Imad Ana Maria on 11-05-2024 Lymphocytes (Bld) [#/Vol] Lymphocytes [#/volume] in Blood by Automated count Low 1.00-4.8 [facility] Lymphocytes/100 WBC Auto (Bl d)Ordered By: Imad Asaad on 11-05-2024 Lymphocytes/100 WBC (Bld) Lymphocytes/100 leukocytes in Blood by Automated count . [facility] MCH Auto (RBC) [Entitic mass ]Ordered By: Imad Asaad on 11-05-2024 MCH (RBC) [Entitic mass] MCH [Entitic mass] by Automated count 27.5-35.2 [facility] MCHC Auto (RBC) [Mass/Vol]Or dered By: Imad Asaad on 11-05-2024 MCHC (RBC) [Mass/Vol] MCHC [Mass/volume] by Automated count 32.5-35.6 [facility] MCV Auto (RBC) [Entitic vol] Ordered By: Imad Asaad on 11-05-2024 MCV (RBC) [Entitic vol] MCV [Entitic volume] by Automated count 83.5-101 [facility] Mitochondrial (M2) Antibodyo n 11-05-2024 Mitochondrial (M2) Antibody <20.0 Normal 0.0-20.0 [facility] Comment on above: Result Comment: Nega tive 0.0 - 20.0 Equivocal 20.1 - 24.9 Positive >24.9 Mitochondrial (M2) Antibodies are found in 90-96% of patients with primary biliary cirrhosis. Performed By: #### C UU #### [address] Monocytes Auto (Bld) [#/Vol] Ordered By: Imad Asaad on 11-05-2024 Monocytes (Bld) [#/Vol] Automated blood monocyte count 0.0-0.8 [facility] Monocytes/100 WBC Auto (Bld) Ordered By: Imad Asaad on 11-05-2024 Monocytes/100 WBC (Bld) Automated monocyte % . [facility] Neutrophils Auto (Bld) [#/Vo l]Ordered By: Imad Asaad on 11-05-2024 Neutrophils (Bld) [#/Vol] Neutrophils [#/volume] in Blood by Automated count 1.8-7.7 [facility] Neutrophils/100 WBC Auto (Bl d)Ordered By: Imad Asaad on 11-05-2024 Neutrophils/100 WBC (Bld) Automated neutrophil % . [facility] No Panel InformationOrdered By: Imad Asaad on 11-05-2024 Estimated GFR (CKD-EPI) > 60.0 mL/Min [facility] Hemochromatosis Note Comment . [facility] Comment on above: Technical Component performed at [facility]PProfessional Component performed by:Richa Cuba, Ph.D., FACMGDirector, Molecular [id number] [facility] [place] [id number] at: TG - [facility] [id number] [facility], [place], [place] [id number] Director: Daryl Lara [facility], Phone: [phone] Hepatitis C Interpretation Comment . [facility] Comment on above: Not infected with HC V unless early or acute infection issuspected (which may be delayed in an immunocompromisedindividual), or other evidence exists to indicate HCVinfection. Pharmacy Creatinine Clearance (Chem N/A [facility] Nucleated erythrocytes [Pres ence] in Blood by Automated countOrdered By: Imad Asaad on 11-05-2024 Nucleated RBC Auto Ql (Bld) Nucleated erythrocytes [Presence] in Blood by Automated count 0-0.5 [facility] Platelet mean volume Auto (B ld) [Entitic vol]Ordered By: Imad Asaad on 11-05-2024 Platelet mean volume (Bld) [Entitic vol] Platelet mean volume [Entitic volume] in Blood by Automated count 6.6-10.1 [facility] Platelets Auto (Bld) [#/Vol] Ordered By: Imad Asaad on 11-05-2024 Platelets (Bld) [#/Vol] Platelets [#/volume] in Blood by Automated count 150-450 [facility] Potassium [Moles/volume] in Serum or PlasmaOrdered By: Imad Asaad on 11-05-2024 Potassium [Moles/Vol] Potassium [Moles/v olume] in Serum or Plasma 3.5-5.1 [facility] Protein [Mass/volume] in Ser um or PlasmaOrdered By: Imad Asaad on 11-05-2024 Protein [Mass/Vol] Protein [Mass/volume ] in Serum or Plasma Low 6.4-8.9 [facility] Prothrombin Time INRon 11-05 INR Coag (PPP) [Relative time] 1.2 {INR} Normal [facility] Comment on above: Result Comment: [...] heart valves: 3 - 4.5 PERFORMED BY: [place] [address] PATHOLOGIST EXPRESSIVE THERAPIST LEANDRA WALSH M.D. Performed By: #### M ITOM2, HBSAG, HCBIGM, HBCAB, HBSAB, DYLAN, SMAB, HAAB, HAABT, HCV RX PCR, AFPTM, CERULOP, ALPHA PHEN, L-K MICRO, IGG, HEMOCHROM #### [facility] , #### KYLE, CMP, PT, CBC #### [address] PT Coag (PPP) [Time] 13.4 s High 9.0-12.9 [facility] Comment on above: Result Comment: A he matocrit value greater than 55% may lead to inaccurate results in coagulation testing. Patients having hematocrit values >55% require a special collection tube for coagulation studies. Please contact the laboratory at [phone] for redraw instructions. Performed By: #### M ITOM2, HBSAG, HCBIGM, HBCAB, HBSAB, DYLAN, SMAB, HAAB, HAABT, HCV RX PCR, AFPTM, CERULOP, ALPHA PHEN, L-K MICRO, IGG, HEMOCHROM #### [facility] , #### KYLE, CMP, PT, CBC #### [place] [id number] [facility] Prothrombin time (PT)Ordered By: Immatthew Rodgers on 11-05-2024 PT Coag (PPP) [Time] Prothrombin time (PT) High 9.0- 12.9 [facility] Comment on above: A hematocrit value g reater than 55% may lead to inaccurate results in coagulation testing. Patients having hematocrit values >55% require a special collection tube for coagulation studies. Please contact the laboratory at [phone] for redraw instructions. RBC Auto (Bld) [#/Vol]Ordere d By: Imad Geronimoad on 11-05-2024 RBC (Bld) [#/Vol] Erythrocytes [#/volu me] in Blood by Automated count Low 3.90-5.60 [facility] Serum hepatitis B virus surf jaimie antibody detectionOrdered By: Derrek Rodgers on 11-05-2024 HBV surface Ab Ql (S) Hepatitis B virus surface Ab [Presence] in Serum . [facility] Comment on above: Non Reactive: Not [...] Serum homogeneous pattern antinuclear antibody (DYLAN) titer [facility] Serum mitochondria M2 IgG an tibody assay (units/volume)Ordered By: Derrek Rodgers on 11-05-2024 Mitochondria M2 IgG Qn (S) Serum mitochondria M2 IgG antibody assay (units/volume) 0.0-20.0 [facility] Comment on above: Negative 0.0 - 20.0 Equivocal 20.1 - 24.9 Positive >24.9Mitochondrial (M2) Antibodies are found in 90-96% ofpatients with primary biliary cirrhosis. Serum nuclear antibody titer Ordered By: Derrek Rodgers on 11-05-2024 Nuclear Ab (S) [Titer] Serum nuclear ant ibody titer . [facility] Comment on above: Negative <1:80 Westley pickett 1:80 Positive >1:80ICAP nomenclature: AC-0For more information about Hep-2 cell patterns useANApatterns.org, the official website for theInternational Consensus on Antinuclear Antibody (DYLAN)Patterns (ICAP).Performed at: [facility] [id number] Director: Stewart Palmer PhD, Phone: [phone] Serum or plasma IgG measurem ent (mass/volume)Ordered By: Derrek Rodgers on 11-05-2024 IgG [Mass/Vol] IgG [Mass/volume] in Serum or Plasma [phone] [facility] Comment on above: Performed at: [facility] [address] [id number] Director: Stewart Palmer PhD, Phone: [phone] Serum or plasma albumin/glob ulin mass ratioOrdered By: Derrek Rodgers on 11-05-2024 Albumin/Globulin [Mass ratio] Serum or plasma albumin/globulin mass ratio [facility] Serum or plasma alpha 1 anti trypsin measurement (mass/volume)Ordered By: Derrek Rodgers on 11-05-2024 Alpha 1 antitrypsin [Mass/Vol] Serum zizgo-7-ribxjtphsot measurement 101-187 [facility] Serum or plasma alpha 1 anti trypsin phenotyping identification by immunofixationOrdered By: Derrek Rodgers on 11-05-2024 Alpha 1 antitrypsin phenotyping Immunofixation Nom Serum or plasma alpha 1 antitrypsin phenotyping identification by immunofixation . [facility] Comment on above: MM Phenotype is co nsidered to be normal , producingnormal serum levels of wgpxd-6-iwzbsanv inhibitor andnot associated with clinical disease. Associated M6Txofpe serum levels in other phenotypes and theirincidence [...] reference. Ranges used to confirm phenotype.Performed at: [facility] [address] [id number] Director: Stewart Palmer PhD, Phone: [phone] at: [address] [id number] Director: Beto Vincent MD, Phone: [phone] Serum or plasma kmzhk-7-cvkq protein tumor marker measurement (mass/volume)Ordered By: Derrek Rodgers on 11-05-2024 AFP.tumor marker [Mass/Vol] Serum or plasma bfmjf-1-lygfwzrmlct tumor marker measurement (mass/volume) High 0.0-8.4 [facility] Comment on above: [facility] El ectrochemiluminescence Immunoassay(ECLIA)Values obtained with different assay methods or kits cannotbe used interchangeably. Results cannot be interpreted asabsolute evidence of the presence or absence of malignantdisease.This test is not interpretable in females.Performed at: [facility] [address] [id number] Director: Stewart Palmer PhD, Phone: [phone] Serum or plasma anion gap de terminationOrdered By: Derrek Rodgers on 11-05-2024 Anion gap [Moles/Vol] Serum or plasma an ion gap determination 6.0-15.0 [facility] Serum or plasma ceruloplasmi n measurement (mass/volume)Ordered By: Derrek Rodgers on 11-05-2024 Ceruloplasmin [Mass/Vol] Serum or plasma ceruloplasmin measurement (mass/volume) 16.0-31.0 [facility] Comment on above: Performed at: [facility] [address] [id number] Director: Stewart Palmer PhD, Phone: [phone] Serum or plasma hepatitis B virus surface antigen detection by immunoassayOrdered By: Derrke Rodgers on 11-05-2024 HBV surface Ag IA Ql Hepatitis B virus s urface Ag [Presence] in Serum or Plasma by Immunoassay Negative [facility] Serum or plasma lipoprotein a measurement (moles/volume)Ordered By: Derrek Rodgers on 11-05-2024 Lipoprotein a [Moles/Vol] Serum or plasma lipoprotein a measurement (moles/volume) 0.0-20.0 [facility] Comment on above: Negative 0.0 - 20.0 Equivocal 20.1 - 24.9 Positive >24.9LKM type 1 antibodies are detected in patients withautoimmune hepatitis type 2 and in up to 8% ofpatients with chronic HCV infection.Performed at: [facility] [id number] [place], [place] [id number] Director: Stewart Palmer PhD, Phone: [phone] Smooth Muscle Antibodyon Smooth Muscle Antibody 4 Normal 0-19 [facility] Comment on above: Result Comment: Nega tive 0 - 19 Weak positive 20 - 30 Moderate to strong positive >30 Actin Antibodies are found in 52-85% of patients with autoimmune hepatitis or chronic active hepatitis and in 22% of patients with primary biliary cirrhosis. Performed By: #### C UU #### [facility] [address] Sodium [Moles/volume] in Ser um or PlasmaOrdered By: Imad Asaad on 11-05-2024 Sodium [Moles/Vol] Sodium [Moles/volume ] in Serum or Plasma Low 136-145 [facility] Urea nitrogen [Mass/volume] in Serum or PlasmaOrdered By: Imad Asaad on 11-05-2024 Urea nitrogen [Mass/Vol] Urea nitrogen [Mass/volume] in Serum or Plasma High 7-25 [facility] WBC Auto (Bld) [#/Vol]Ordere d By: Imad Asaad on 11-05-2024 WBC (Bld) [#/Vol] Leukocytes [#/volume ] in Blood by Automated count 4.1-10.5 [facility] X-ray reportOrdered By: Wally Noland on 11-02-2024 Study report [facility] [address] [place] [address] XRay Report Signed Patient: Gerson Penn MR#: [id number] : 1955 Acct:[id number] Age/Sex: 68 / M ADM Date: 5 Loc: [facility] Room: Type: [facility] Attending Dr: Geoffrey Ibrahim DO Copies to: [...] COMPLICATION. Impression dictated by: Gage Noland Jr., D.O.11/02/2024 2:57 PM Dictation Location: RADIO-PC-23 Transcribed By: PWS 11/02/24 1457 Dictated By: Gage Noland Jr DO 11/02/24 1456 Signed By: 11/02/24 145 [facility] XR elbow LT 2Von 11-02-2024 XR elbow LT 2V [facility] [address] [place] [address] XRay Report Signed Patient: Gerson Pnen MR#: [id number] : 1955 Acct:[id number] Age/Sex: 68 / M ADM Date: 11/02/24 Loc: [facility] Room: Type: [facility] Attending Dr: Geoffrey Ibrahim DO Copies to: [...] COMPLICATION. Impression dictated by: Gage Noland Jr., D.O.11/02/2024 2:57 PM Dictation Location: RADIO-PC-23 Transcribed By: PWS 11/02/24 1457 Dictated By: Gage Noland Jr DO 11/02/24 1456 Signed By: 11/02/24 145 Normal [facility] Urine Cultureon 10-20-2024 Bacteria identified Cx Nom (U) ORGANISM: Enterobacter cloacae complex (O:ENTCLOCPLX) [place] Count >100,000 Aerobic LACHELLE Charge (NMIC56) SUSCEPTIBILITY [...] RESISTANT TO ALL B-LACTAM DRUGS. PERFORMED BY: [place] [address] PATHOLOGIST EXPRESSIVE THERAPIST LEANDRA WALSH M.D. Normal [facility] Comment on above: Performed By: #### C UU #### [address] Urine cultureOrdered By: Marisol Ren on 10-20-2024 Bacteria identified Cx Nom (U) Abnormal [facility] X-ray reportOrdered By: Steven Rock on 10-07-2024 Study report [facility] [address] [place] [address] XRay Report Signed Patient: Gerson Penn MR#: [id number] : 1955 Acct:[id number] Age/Sex: 68 / M ADM Date: 5 Loc: [facility] Room: Type: REG CLI Attending Dr: Geoffrey [...] Lamont Rock M.D.10/07/2024 2:30 PM Dictation Location: [place] [address] Transcribed By: [facility] 10/07/24 1430 Dictated By: Lamont Rock MD 10/07/24 1429 Signed By: 10/07/24 1430 [facility] Work Phone: XR elbow LT 2Von 10-07-2024 XR elbow LT 2V [facility] [address] [place] [address] XRay Report Signed Patient: Gerson Penn MR#: [id number] : 1955 Acct:[id number] Age/Sex: 68 / M ADM Date: 10/07/24 Loc: [facility] Room: Type: [facility] CLI Attending Dr: Geoffrey Ibrahim DO [...] Lamont Rock M.D.10/07/2024 2:30 PM Dictation Location: [place] [address] Transcribed By: [facility] 10/07/24 1430 Dictated By: Lamont Rock MD 10/07/24 1429 Signed By: 10/07/24 1430 Normal [facility] Glucose Glucometer (BldC) [M ass/Vol]Ordered By: Geoffrey Ibrahim on 09-22-2024 Glucose [Mass/Vol] Capillary blood gluc ose measurement by glucometer (mass/volume) [facility] Comment on above: Random Glucose Refer ence Range is dependent on time and content of last meal. Glucose of more than 200 mg/dL in a nonstressed, ambulatory subject supports the diagnosis of Diabetes Mellitus. Glucose Poct Glucometerson 0 09-22-2024 Commemt1 Glu2: Cleaned Meter Normal [facility] Comment on above: Result Comment: PERF ORMED BY: [place] [address] PATHOLOGIST EXPRESSIVE THERAPIST LEANDRA WALSH M.D. Performed By: #### M ITOM2, HBSAG, HCBIGM, HBCAB, HBSAB, DYLAN, SMAB, HAAB, HAABT, HCV RX PCR, AFPTM, CERULOP, ALPHA PHEN, L-K MICRO, IGG, HEMOCHROM #### [facility] , #### KYLE, CMP, PT, CBC #### [facility] [address] Glucose [Mass/Vol] 115 mg/dL Normal [facility] Comment on above: Result Comment: [place] om Glucose Reference Range is dependent on time and content of last meal. Glucose of more than 200 mg/dL in a nonstressed, ambulatory subject supports the diagnosis of Diabetes Mellitus. Performed By: #### M ITOM2, HBSAG, HCBIGM, HBCAB, HBSAB, DYLAN, SMAB, HAAB, HAABT, HCV RX PCR, AFPTM, CERULOP, ALPHA PHEN, L-K MICRO, IGG, HEMOCHROM #### [facility] , #### KYLE, CMP, PT, CBC #### [facility] [address] [place] [address] Glucose [Mass/Vol] 126 mg/dL Normal [facility] Comment on above: Result Comment: [facility] Glucose Reference Range is dependent on time and content of last meal. Glucose of more than 200 mg/dL in a nonstressed, ambulatory subject supports the diagnosis of Diabetes Mellitus. PERFORMED BY: [place] [address] PATHOLOGIST EXPRESSIVE THERAPIST LEANDRA WALSH M.D. Performed By: #### M ITOM2, HBSAG, HCBIGM, HBCAB, HBSAB, DYLAN, SMAB, HAAB, HAABT, HCV RX PCR, AFPTM, CERULOP, ALPHA PHEN, L-K MICRO, IGG, HEMOCHROM #### [facility] , #### KYLE, CMP, PT, CBC #### [facility] [address] [place] [address] Levy 09-22-2024 L ------- Specimen: [id number] Received: 09/22/24 Status: ARYA Vargas Num: [id number] Spec Type: Surgical Subm Dr: Geoffrey Ibrahim, DO Tissues: A Joint/Knee (LEFT ARM BONE AND TISSUE) Procedures: HE/2, Gross/Micro L4, Decalcification Age/ Patient Sex Location Account Attending Physician Gerson Penn 68/M [place] [id number] Geoffrey Ibrahim DO SPEC NUM: [id number] RECD: 09/22/24 STATUS: ARYA RJ NUM: [id number] NAE: 09/22/24 [facility] DR: Geoffrey Ibrahim DO ENTERED: 09/22/24 [facility] : [place] TYPE: Surgical DEPT: S ORDERED: [...] medullary bone is cordero, firm and uniform. Cut In Station Operator sections are submitted in A1?A2 after decalcification in rapid Nicolas immuno. (2, , [id number] A)JACK Specimen: [id number] Received: 09/22/24 Status: ARYA Vargas Num: [id number] Spec Type: Surgical Subm Dr: Geoffrey Ibrahim, Tissues: A Joint/Knee (LEFT ARM BONE AND TISSUE) Procedures: HE/2, Gross/Micro L4, Decalcification Patient: Gerson Penn [id number] (Continued) Specimen: [id number] Received: 09/22/24 (Continued) Signed (signature on file) Lino Coffman MD 09/25/24 1821 Specimen: [id number] Received: 09/22/24 Status: ARYA Vargas Num: [id number] Spec Type: Surgical Subm Dr: Geoffrey Ibrahim DO Tissues: A Joint/Knee (LEFT ARM BONE AND TISSUE) Procedures: HE/2, Gross/Micro L4, Decalcification Patient: Gerson Penn [id number] (Continued) Specimen: [id number] Received: 09/22/24 (Continued) Microscopic Description Microscopic examinations are performed supporting the above interpretation CPT Codes [id number] Specimen: [id number] Received: 09/22/24 Status: ARYA Vargas Num: [id number] Spec Type: Surgical Subm Dr: Geoffrey Ibrahim DO Tissues: A Joint/Knee (LEFT ARM BONE AND TISSUE) Procedures: HE/2, Gross/Micro L4, Decalcification Patient: NaderAustinGerson A [id number] (Continued) Signed (signature on file) Lino Coffman MD 09/25/241820 Normal [facility] No Panel InformationOrdered By: Geoffrey Ibrahim on 09-22-2024 Bedside Glucose Comment Glu2: cleaned meter [facility] XR elbow LT min 3V*on 2024 XR elbow LT min 3V* [facility] Main [address] [address] XRay Report Signed Patient: Gerson Penn MR#: [id number] : 1955 Acct:[id number] Age/Sex: 68 / M ADM Date: 09/22/24 Loc: [place] Room: Type: [facility] Attending Dr: Geoffrey Ibrahim DO Copies [...] Clark Méndez M.D.09/22/2024 5:18 PM Dictation Location: [place] [address] Transcribed By: [facility] 09/22/241717 Dictated By: Clark Méndez II, MD 09/22/241716 Signed By: 09/22/241717 Normal [facility] Alanine aminotransferase [En zymatic activity/volume] in Serum or PlasmaOrdered By: Geoffrey Ibrahim on 09-21-2024 ALT [Catalytic activity/Vol] Alanine aminotransferase [Enzymatic activity/volume] in Serum or Plasma High 7-52 [facility] Albumin [Mass/volume] in Ser um or Plasma by Bromocresol green (BCG) dye binding methoOrdered By: Geoffrey Ibrahim on 09-21-2024 Albumin BCG dye [Mass/Vol] Albumin [Mass/volume] in Serum or Plasma by Bromocresol green (BCG) dye binding metho Low 3.5-5.7 [facility] Alkaline phosphatase [Enzyma tic activity/volume] in Serum or PlasmaOrdered By: Geoffrey Ibrahim on 09-21-2024 ALP [Catalytic activity/Vol] Alkaline phosphatase [Enzymatic activity/volume] in Serum or Plasma High 34-104 [facility] Appearance of UrineOrdered B y: Geoffrey Ibrahim on 09-21-2024 Appearance (U) Urine appearance Clear [facility] Aspartate aminotransferase [ Enzymatic activity/volume] in Serum or PlasmaOrdered By: Geoffrey Ibrahim on 09-21-2024 AST [Catalytic activity/Vol] Aspartate aminotransferase [Enzymatic activity/volume] in Serum or Plasma High 13-39 [facility] Basophils Auto (Bld) [#/Vol] Ordered By: Geoffrey Ibrahim on 09-21-2024 Basophils (Bld) [#/Vol] Automated basophil count [facility] Basophils/100 WBC Auto (Bld) Ordered By: Geoffrey Ibrahim on 09-21-2024 Basophils/100 WBC (Bld) Automated basophil % [facility] Bilirubin Test strip Ql (U)O rdered By: Geoffrey Ibrahim on 09-21-2024 Bilirubin Ql (U) Bilirubin.total [Pre sence] in Urine by Test strip Negative [facility] Bilirubin.total [Mass/volume ] in Serum or PlasmaOrdered By: Geoffrey Ibrahim on 09-21-2024 Bilirubin [Mass/Vol] Bilirubin.total [Mass/volume] in Serum or Plasma High 0.3-1.0 [facility] Comment on above: Samples from patient s who have taken Naproxen have shown spurious elevation in Total Bilirubin levels. A metabolite of Naproxen, O-desmethylnaproxen, has been shown to interfere with the Regina-Evert method for measuring Total Bilirubin. Blood estimated average gluc ose determination by estimation from glycated hemoglobinOrdered By: Geoffrey Ibrahim on 09-21-2024 Average glucose Estimated from glycated hemoglobin (Bld) [Mass/Vol] Glucose mean value [Mass/volume] in Blood Estimated from glycated hemoglobin [facility] CMP with reflex to A1Con Albumin [Mass/Vol] 2.6 g/dL Low 3.5-5.7 [facility] Comment on above: Performed By: #### M ITOM2, HBSAG, HCBIGM, HBCAB, HBSAB, DYLAN, SMAB, HAAB, HAABT, HCV RX PCR, AFPTM, CERULOP, ALPHA PHEN, L-K MICRO, IGG, HEMOCHROM #### [facility] , #### KYLE, CMP, PT, CBC #### [facility] [address] [place] [address] Albumin/Globulin [Mass ratio] 0.7 {ratio} Normal [facility] Comment on above: Performed By: #### M ITOM2, HBSAG, HCBIGM, HBCAB, HBSAB, DYLAN, SMAB, HAAB, HAABT, HCV RX PCR, AFPTM, CERULOP, ALPHA PHEN, L-K MICRO, IGG, HEMOCHROM #### [facility] , #### KYLE, CMP, PT, CBC #### [address] ALP [Catalytic activity/Vol] 289 U/L High 34-104 [facility] Comment on above: Result Comment: PERF ORMED BY: [place] [address] PATHOLOGIST EXPRESSIVE THERAPIST LEANDRA WALSH M.D. Performed By: #### M ITOM2, HBSAG, HCBIGM, HBCAB, HBSAB, DYLAN, SMAB, HAAB, HAABT, HCV RX PCR, AFPTM, CERULOP, ALPHA PHEN, L-K MICRO, IGG, HEMOCHROM #### [facility] , #### KYLE, CMP, PT, CBC #### [address] ALT [Catalytic activity/Vol] 70 U/L High 7-52 [facility] Comment on above: Performed By: #### M ITOM2, HBSAG, HCBIGM, HBCAB, HBSAB, DYLAN, SMAB, HAAB, HAABT, HCV RX PCR, AFPTM, CERULOP, ALPHA PHEN, L-K MICRO, IGG, HEMOCHROM #### [facility] , #### KYLE, CMP, PT, CBC #### [address] Anion gap [Moles/Vol] 10.6 mmol/L Normal 6.0-15.0 [facility] Comment on above: Performed By: #### M ITOM2, HBSAG, HCBIGM, HBCAB, HBSAB, DYLAN, SMAB, HAAB, HAABT, HCV RX PCR, AFPTM, CERULOP, ALPHA PHEN, L-K MICRO, IGG, HEMOCHROM #### [facility] , #### KYLE, CMP, PT, CBC #### [address] AST [Catalytic activity/Vol] 143 U/L High 13-39 [facility] Comment on above: Performed By: #### M ITOM2, HBSAG, HCBIGM, HBCAB, HBSAB, DYLAN, SMAB, HAAB, HAABT, HCV RX PCR, AFPTM, CERULOP, ALPHA PHEN, L-K MICRO, IGG, HEMOCHROM #### [facility] , #### KYLE, CMP, PT, CBC #### [address] Bilirubin [Mass/Vol] 1.8 mg/dL High 0.3-1.0 [facility] Comment on above: Result Comment: Samp les from patients who have taken Naproxen have shown spurious elevation in Total Bilirubin levels. A metabolite of Naproxen, O-desmethylnaproxen, has been shown to interfere with the Regina-Evert method for measuring Total Bilirubin. Performed By: #### M ITOM2, HBSAG, HCBIGM, HBCAB, HBSAB, DYLAN, SMAB, HAAB, HAABT, HCV RX PCR, AFPTM, CERULOP, ALPHA PHEN, L-K MICRO, IGG, HEMOCHROM #### [facility] , #### KYLE, CMP, PT, CBC #### [address] Calcium [Mass/Vol] 8.9 mg/dL Normal 8.6-10.3 [facility] Comment on above: Performed By: #### M ITOM2, HBSAG, HCBIGM, HBCAB, HBSAB, DYLAN, SMAB, HAAB, HAABT, HCV RX PCR, AFPTM, CERULOP, ALPHA PHEN, L-K MICRO, IGG, HEMOCHROM #### [facility] , #### KYLE, CMP, PT, CBC #### [address] Chloride [Moles/Vol] 102 mmol/L Normal 98-107 [facility] Comment on above: Performed By: #### M ITOM2, HBSAG, HCBIGM, HBCAB, HBSAB, DYLAN, SMAB, HAAB, HAABT, HCV RX PCR, AFPTM, CERULOP, ALPHA PHEN, L-K MICRO, IGG, HEMOCHROM #### [facility] , #### KYLE, CMP, PT, CBC #### [address] CO2 [Moles/Vol] 26.0 mmol/L Normal 21.0-31.0 [facility] Comment on above: Performed By: #### M ITOM2, HBSAG, HCBIGM, HBCAB, HBSAB, DYLAN, SMAB, HAAB, HAABT, HCV RX PCR, AFPTM, CERULOP, ALPHA PHEN, L-K MICRO, IGG, HEMOCHROM #### [facility] , #### KYLE, CMP, PT, CBC #### [address] Creatinine [Mass/Vol] 1.24 mg/dL Normal 0.70-1.30 [facility] Comment on above: Performed By: #### M ITOM2, HBSAG, HCBIGM, HBCAB, HBSAB, DYLAN, SMAB, HAAB, HAABT, HCV RX PCR, AFPTM, CERULOP, ALPHA PHEN, L-K MICRO, IGG, HEMOCHROM #### [facility] , #### KYLE, CMP, PT, CBC #### [address] GFR/1.73 sq M.predicted MDRD (S/P/Bld) [Vol rate/Area] mL/min/{1.73_m2} Normal [facility] Comment on above: Performed By: #### M ITOM2, HBSAG, HCBIGM, HBCAB, HBSAB, DYLAN, SMAB, HAAB, HAABT, HCV RX PCR, AFPTM, CERULOP, ALPHA PHEN, L-K MICRO, IGG, HEMOCHROM #### [facility] , #### KYLE, CMP, PT, CBC #### [address] Globulin (S) [Mass/Vol] 3.5 g/dL Normal [facility] Comment on above: Performed By: #### M ITOM2, HBSAG, HCBIGM, HBCAB, HBSAB, DYLAN, SMAB, HAAB, HAABT, HCV RX PCR, AFPTM, CERULOP, ALPHA PHEN, L-K MICRO, IGG, HEMOCHROM #### [facility] , #### KYLE, CMP, PT, CBC #### [address] Glucose [Mass/Vol] 114 mg/dL High 70-100 [facility] Comment on above: Result Comment: ADA recommended reference range Performed By: #### M ITOM2, HBSAG, HCBIGM, HBCAB, HBSAB, DYLAN, SMAB, HAAB, HAABT, HCV RX PCR, AFPTM, CERULOP, ALPHA PHEN, L-K MICRO, IGG, HEMOCHROM #### [facility] , #### KYLE, CMP, PT, CBC #### [address] Potassium [Moles/Vol] 4.6 mmol/L Normal 3.5-5.1 [facility] Comment on above: Performed By: #### M ITOM2, HBSAG, HCBIGM, HBCAB, HBSAB, DYLAN, SMAB, HAAB, HAABT, HCV RX PCR, AFPTM, CERULOP, ALPHA PHEN, L-K MICRO, IGG, HEMOCHROM #### [facility] , #### KYLE, CMP, PT, CBC #### [address] Protein [Mass/Vol] 6.1 g/dL Low 6.4-8.9 [facility] Comment on above: Performed By: #### M ITOM2, HBSAG, HCBIGM, HBCAB, HBSAB, DYLAN, SMAB, HAAB, HAABT, HCV RX PCR, AFPTM, CERULOP, ALPHA PHEN, L-K MICRO, IGG, HEMOCHROM #### [facility] , #### KYLE, CMP, PT, CBC #### [address] Sodium [Moles/Vol] 134 mmol/L Low 136-145 [facility] Comment on above: Performed By: #### M ITOM2, HBSAG, HCBIGM, HBCAB, HBSAB, DYLAN, SMAB, HAAB, HAABT, HCV RX PCR, AFPTM, CERULOP, ALPHA PHEN, L-K MICRO, IGG, HEMOCHROM #### [facility] , #### KYLE, CMP, PT, CBC #### [address] Urea nitrogen [Mass/Vol] 32 mg/dL High 7-25 [facility] Comment on above: Performed By: #### M ITOM2, HBSAG, HCBIGM, HBCAB, HBSAB, DYLAN, SMAB, HAAB, HAABT, HCV RX PCR, AFPTM, CERULOP, ALPHA PHEN, L-K MICRO, IGG, HEMOCHROM #### [facility] , #### KYLE, CMP, PT, CBC #### [address] Calcium [Mass/volume] in Ser um or PlasmaOrdered By: Geoffrey Ibrahim on 09-21-2024 Calcium [Mass/Vol] Calcium [Mass/volume ] in Serum or Plasma 8.6-10.3 [facility] Carbon dioxide, total [Moles /volume] in Serum or PlasmaOrdered By: Geoffrey Ibrahim on 09-21-2024 CO2 [Moles/Vol] Carbon dioxide, tota l [Moles/volume] in Serum or Plasma 21.0-31.0 [facility] Chloride [Moles/volume] in S saud or PlasmaOrdered By: Geoffrey Ibrahim on 09-21-2024 Chloride [Moles/Vol] Chloride [Moles/vol ume] in Serum or Plasma 98-107 [facility] Color Auto (U)Ordered By: Claudia Ibrahim on 09-21-2024 Color (U) Color of Urine by [facility] Creatinine [Mass/volume] in Serum or PlasmaOrdered By: Geoffrey Ibrahmi on 09-21-2024 Creatinine [Mass/Vol] Creatinine [Mass/v olume] in Serum or Plasma 0.70-1.30 [facility] Diff and CBCon 09-21-2024 Erythrocyte distribution width (RBC) [Ratio] 15.5 % High 12.0-14.8 [facility] Comment on above: Performed By: #### M ITOM2, HBSAG, HCBIGM, HBCAB, HBSAB, DYLAN, SMAB, HAAB, HAABT, HCV RX PCR, AFPTM, CERULOP, ALPHA PHEN, L-K MICRO, IGG, HEMOCHROM #### [facility] , #### KYLE, CMP, PT, CBC #### [facility] [address] Hematocrit (Bld) [Volume fraction] 42.1 % Normal 38.8-50.0 [facility] Comment on above: Performed By: #### M ITOM2, HBSAG, HCBIGM, HBCAB, HBSAB, DYLAN, SMAB, HAAB, HAABT, HCV RX PCR, AFPTM, CERULOP, ALPHA PHEN, L-K MICRO, IGG, HEMOCHROM #### [facility] , #### KYLE, CMP, PT, CBC #### [address] Hemoglobin (Bld) [Mass/Vol] 14.7 g/dL Normal 13.0-17.0 [facility] Comment on above: Performed By: #### M ITOM2, HBSAG, HCBIGM, HBCAB, HBSAB, DYLAN, SMAB, HAAB, HAABT, HCV RX PCR, AFPTM, CERULOP, ALPHA PHEN, L-K MICRO, IGG, HEMOCHROM #### [facility] , #### KYLE, CMP, PT, CBC #### [address] Lymphocytes/100 WBC (Bld) 4 % Low 18-42 [facility] Comment on above: Performed By: #### M ITOM2, HBSAG, HCBIGM, HBCAB, HBSAB, DYLAN, SMAB, HAAB, HAABT, HCV RX PCR, AFPTM, CERULOP, ALPHA PHEN, L-K MICRO, IGG, HEMOCHROM #### [facility] , #### KYLE, CMP, PT, CBC #### [address] MCH (RBC) [Entitic mass] 33.4 pg Normal 27.5-35.2 [facility] Comment on above: Performed By: #### M ITOM2, HBSAG, HCBIGM, HBCAB, HBSAB, DYLAN, SMAB, HAAB, HAABT, HCV RX PCR, AFPTM, CERULOP, ALPHA PHEN, L-K MICRO, IGG, HEMOCHROM #### [facility] , #### KYLE, CMP, PT, CBC #### [address] MCV (RBC) [Entitic vol] 95.4 fL Normal 83.5-101 [facility] Comment on above: Performed By: #### M ITOM2, HBSAG, HCBIGM, HBCAB, HBSAB, DYLAN, SMAB, HAAB, HAABT, HCV RX PCR, AFPTM, CERULOP, ALPHA PHEN, L-K MICRO, IGG, HEMOCHROM #### [facility] , #### KYLE, CMP, PT, CBC #### [address] Mean Corpuscular HGB Conc 35.0 g/dL Normal 32.5-35.6 [facility] Comment on above: Performed By: #### M ITOM2, HBSAG, HCBIGM, HBCAB, HBSAB, DYLAN, SMAB, HAAB, HAABT, HCV RX PCR, AFPTM, CERULOP, ALPHA PHEN, L-K MICRO, IGG, HEMOCHROM #### [facility] , #### KYLE, CMP, PT, CBC #### [facility] [address] Monocytes/100 WBC (Bld) 9 % Normal 2-11 [facility] Comment on above: Performed By: #### M ITOM2, HBSAG, HCBIGM, HBCAB, HBSAB, DYLAN, SMAB, HAAB, HAABT, HCV RX PCR, AFPTM, CERULOP, ALPHA PHEN, L-K MICRO, IGG, HEMOCHROM #### [facility] , #### KYLE, CMP, PT, CBC #### [address] Platelet Estimate Normal Normal Normal [facility] Comment on above: Performed By: #### M ITOM2, HBSAG, HCBIGM, HBCAB, HBSAB, DYLAN, SMAB, HAAB, HAABT, HCV RX PCR, AFPTM, CERULOP, ALPHA PHEN, L-K MICRO, IGG, HEMOCHROM #### [facility] , #### KYLE, CMP, PT, CBC #### [address] Platelet mean volume (Bld) [Entitic vol] 7.8 fL Normal 6.6-10.1 [facility] Comment on above: Performed By: #### M ITOM2, HBSAG, HCBIGM, HBCAB, HBSAB, DYLAN, SMAB, HAAB, HAABT, HCV RX PCR, AFPTM, CERULOP, ALPHA PHEN, L-K MICRO, IGG, HEMOCHROM #### [facility] , #### KYLE, CMP, PT, CBC #### [address] Platelet Morphology Normal Normal Normal [facility] Comment on above: Result Comment: PERF ORMED BY: [place] [address] PATHOLOGIST EXPRESSIVE THERAPIST LEANDRA WALSH M.D. Performed By: #### M ITOM2, HBSAG, HCBIGM, HBCAB, HBSAB, DYLAN, SMAB, HAAB, HAABT, HCV RX PCR, AFPTM, CERULOP, ALPHA PHEN, L-K MICRO, IGG, HEMOCHROM #### [facility] , #### KYLE, CMP, PT, CBC #### [address] Platelets (Bld) [#/Vol] 188 10*3/uL Normal 150-450 [facility] Comment on above: Performed By: #### M ITOM2, HBSAG, HCBIGM, HBCAB, HBSAB, DYLAN, SMAB, HAAB, HAABT, HCV RX PCR, AFPTM, CERULOP, ALPHA PHEN, L-K MICRO, IGG, HEMOCHROM #### [facility] , #### KYLE, CMP, PT, CBC #### [address] RBC (Bld) [#/Vol] 4.42 10*6/uL Normal 3.90-5.60 [facility] Comment on above: Performed By: #### M ITOM2, HBSAG, HCBIGM, HBCAB, HBSAB, DYLAN, SMAB, HAAB, HAABT, HCV RX PCR, AFPTM, CERULOP, ALPHA PHEN, L-K MICRO, IGG, HEMOCHROM #### [facility] , #### KYLE, CMP, PT, CBC #### [address] RBC morphology finding Nom (Bld) Normal Normal Normal [facility] Comment on above: Performed By: #### M ITOM2, HBSAG, HCBIGM, HBCAB, HBSAB, DYLAN, SMAB, HAAB, HAABT, HCV RX PCR, AFPTM, CERULOP, ALPHA PHEN, L-K MICRO, IGG, HEMOCHROM #### [facility] , #### KYLE, CMP, PT, CBC #### [address] Segmented neutrophils/100 WBC (Bld) 87 % High 50-70 [facility] Comment on above: Performed By: #### M ITOM2, HBSAG, HCBIGM, HBCAB, HBSAB, DYLAN, SMAB, HAAB, HAABT, HCV RX PCR, AFPTM, CERULOP, ALPHA PHEN, L-K MICRO, IGG, HEMOCHROM #### [facility] , #### KYLE, CMP, PT, CBC #### [address] WBC (Bld) [#/Vol] 5.4 10*3/uL Normal 4.1-10.5 [facility] Comment on above: Performed By: #### M ITOM2, HBSAG, HCBIGM, HBCAB, HBSAB, DYLAN, SMAB, HAAB, HAABT, HCV RX PCR, AFPTM, CERULOP, ALPHA PHEN, L-K MICRO, IGG, HEMOCHROM #### [facility] , #### KYLE, CMP, PT, CBC #### [address] EBS A1C with Estimated Mallory hernándezjocelyn 09-21-2024 Glucose [Mass/Vol] 134 mg/dL Normal [facility] Comment on above: Result Comment: PERF ORMED BY: [place] [address] PATHOLOGIST EXPRESSIVE THERAPIST LEANDRA WALSH M.D. Performed By: #### M ITOM2, HBSAG, HCBIGM, HBCAB, HBSAB, DYLAN, SMAB, HAAB, HAABT, HCV RX PCR, AFPTM, CERULOP, ALPHA PHEN, L-K MICRO, IGG, HEMOCHROM #### [facility] , #### KYLE, CMP, PT, CBC #### [address] ECG 12 lead ECGon 09-21-2024 ECG 12 lead ECG [facility] Main [place] [address] [place] [address] Electrocardiograph Report Signed Patient: Gerson Penn MR#: [id number] : 1955 Acct:[id number] Age/Sex: 68 / M ADM Date: 09/21/24 Loc: PS Room: Type: [facility] Attending Dr: Geoffrey Ibrahim DO Ordering Provider: [...] When compared with ECG of 04-Oct-2012 08:47, [place] interval has decreased Confirmed by Taj Palm ([id number]) on 09/21/2024 8:57:00 AM Referred By: Electronically Signed By: Taj Palm Transcribed By: MUS Signed By Taj Palm MD 09/21/24 0857 Normal [facility] Eosinophils Auto (Bld) [#/Vo l]Ordered By: Geoffrey Ibrahim on 09-21-2024 Eosinophils (Bld) [#/Vol] Automated eosinophil count [facility] Eosinophils/100 WBC Auto (Bl d)Ordered By: Geoffrey Ibrahim on 09-21-2024 Eosinophils/100 WBC (Bld) Automated eosinophil % [facility] Erythrocyte distribution wid th Auto (RBC) [Ratio]Ordered By: Geoffrey Ibrahim on 09-21-2024 Erythrocyte distribution width (RBC) [Ratio] Erythrocyte distribution width [Ratio] by Automated count High 12.0-14.8 [facility] Erythrocyte morphology findi ng [Identifier] in BloodOrdered By: Geoffrey Ibrahim on 09-21-2024 RBC morphology finding Nom (Bld) RBC morphology Normal [facility] Globulin Calc (S) [Mass/Vol] Ordered By: Geoffrey Ibrahim on 09-21-2024 Globulin (S) [Mass/Vol] Serum globulin measurement by calculation (mass/volume) [facility] Glucose [Mass/volume] in Ser um or PlasmaOrdered By: Geoffrey Ibrahim on 09-21-2024 Glucose [Mass/Vol] Glucose [Mass/volume ] in Serum or Plasma High 70-100 [facility] Comment on above: ADA recommended refe rence range Glucose [Mass/volume] in Uri ne by Test stripOrdered By: Geoffrey Ibrahim on 09-21-2024 Glucose Test strip (U) [Mass/Vol] Glucose [Mass/volume] in Urine by Test strip Normal [facility] Hematocrit Auto (Bld) [Volum e fraction]Ordered By: Geoffrey Ibrahim on 09-21-2024 Hematocrit (Bld) [Volume fraction] Hematocrit [Volume Fraction] of Blood by Automated count 38.8-50.0 [facility] Hemoglobin A1c measurementOr dered By: Geoffrey Ibrahim on 09-21-2024 HbA1c (Bld) [Mass fraction] 6.3 % High 4.3-5.6 [facility] Comment on above: Increased risk for d iabetes: 5.7 - 6.4diabetes: >6.4glycemic control for adults with diabetes: <7.0 Result Comment: Incr eased risk for diabetes: 5.7 - 6.4 diabetes: >6.4 glycemic control for adults with diabetes: <7.0 Performed By: #### M ITOM2, HBSAG, HCBIGM, HBCAB, HBSAB, DYLAN, SMAB, HAAB, HAABT, HCV RX PCR, AFPTM, CERULOP, ALPHA PHEN, L-K MICRO, IGG, HEMOCHROM #### [facility] , #### KYLE, CMP, PT, CBC #### [facility] [address] [place] [address] Hemoglobin Test strip Ql (U) Ordered By: Geoffrey Ibrahim on 09-21-2024 Hemoglobin Ql (U) Hemoglobin [Presence ] in Urine by Test strip Negative [facility] Hemoglobin [Mass/volume] in BloodOrdered By: Geoffrey Ibrahim on 09-21-2024 Hemoglobin (Bld) [Mass/Vol] Hemoglobin [Mass/volume] in Blood 13.0-17.0 [facility] Ketones Test strip Ql (U)Ord ered By: Geoffrey Ibrahim on 09-21-2024 Ketones Ql (U) Ketones [Presence] i n Urine by Test strip Negative [facility] Leukocyte esterase [Presence ] in Urine by Test stripOrdered By: Geoffrey Ibrahim on 09-21-2024 Leukocyte esterase Test strip Ql (U) Leukocyte esterase [Presence] in Urine by Test strip Negative [facility] Leukocytes [#/volume] correc adrián for nucleated erythrocytes in Blood by Automated counOrdered By: Geoffrey Ibrahim on 09-21-2024 WBC corrected for nucl RBC Auto (Bld) [#/Vol] Leukocytes [#/volume] corrected for nucleated erythrocytes in Blood by Automated coun 4.1-10.5 [facility] Lymphocytes Auto (Bld) [#/Vo l]Ordered By: Geoffrey Ibrahim on 09-21-2024 Lymphocytes (Bld) [#/Vol] Lymphocytes [#/volume] in Blood by Automated count [facility] Lymphocytes/100 WBC Auto (Bl d)Ordered By: Geoffrey Ibrahim on 09-21-2024 Lymphocytes/100 WBC (Bld) Lymphocytes/100 leukocytes in Blood by Automated count [facility] Lymphocytes/100 WBC Manual c nt (Bld)Ordered By: Geoffrey Ibrahim on 09-21-2024 Lymphocytes/100 WBC (Bld) Lymphocytes/100 leukocytes in Blood by Manual count Low 18-42 [facility] MCH Auto (RBC) [Entitic mass ]Ordered By: Geoffrey Ibrahim on 09-21-2024 MCH (RBC) [Entitic mass] MCH [Entitic mass] by Automated count 27.5-35.2 [facility] MCHC Auto (RBC) [Mass/Vol]Or dered By: Geoffrey Ibrahim on 09-21-2024 MCHC (RBC) [Mass/Vol] MCHC [Mass/volume] by Automated count 32.5-35.6 [facility] MCV Auto (RBC) [Entitic vol] Ordered By: Geoffrey Ibrahim on 09-21-2024 MCV (RBC) [Entitic vol] MCV [Entitic volume] by Automated count 83.5-101 [facility] Monocytes Auto (Bld) [#/Vol] Ordered By: Geoffrey Ibrahim on 09-21-2024 Monocytes (Bld) [#/Vol] Automated blood monocyte count [facility] Monocytes/100 WBC Auto (Bld) Ordered By: Geoffrey Ibrahim on 09-21-2024 Monocytes/100 WBC (Bld) Automated monocyte % [facility] Monocytes/100 WBC Manual cnt (Bld)Ordered By: Geoffrey Ibrahim on 09-21-2024 Monocytes/100 WBC (Bld) Monocytes/100 leukocytes in Blood by Manual count 2-11 [facility] Neutrophils Auto (Bld) [#/Vo l]Ordered By: Geoffrey Ibrahim on 09-21-2024 Neutrophils (Bld) [#/Vol] Neutrophils [#/volume] in Blood by Automated count [facility] Neutrophils/100 WBC Auto (Bl d)Ordered By: Geoffrey Ibrahim on 09-21-2024 Neutrophils/100 WBC (Bld) Automated neutrophil % [facility] Nitrite Test strip Ql (U)Ord ered By: Geoffrey Ibrahim on 09-21-2024 Nitrite Ql (U) Nitrite [Presence] i n Urine by Test strip Negative [facility] No Panel InformationOrdered By: Geoffrey Ibrahim on 09-21-2024 Estimated GFR (CKD-EPI) > 60.0 mL/Min [facility] Creatinine Clearance (Chem N/A [facility] Nucleated erythrocytes [Pres ence] in Blood by Automated countOrdered By: Geoffrey Ibrahim on 09-21-2024 Nucleated RBC Auto Ql (Bld) Nucleated erythrocytes [Presence] in Blood by Automated count [facility] Platelet adequacy [Presence] in Blood by Light microscopyOrdered By: Geoffrey Ibrahim on 09-21-2024 Platelets LM Ql (Bld) Platelet adequacy [Presence] in Blood by Light microscopy Normal [facility] Platelet mean volume Auto (B ld) [Entitic vol]Ordered By: Geoffrey Ibrahim on 09-21-2024 Platelet mean volume (Bld) [Entitic vol] Platelet mean volume [Entitic volume] in Blood by Automated count 6.6-10.1 [facility] Platelet morphology finding [Identifier] in BloodOrdered By: Geoffrey Ibrahim on 09-21-2024 Platelet morphology finding Nom (Bld) Platelet morphology finding [Identifier] in Blood Normal [facility] Platelets Auto (Bld) [#/Vol] Ordered By: Geoffrey Ibrahim on 09-21-2024 Platelets (Bld) [#/Vol] Platelets [#/volume] in Blood by Automated count 150-450 [facility] Potassium [Moles/volume] in Serum or PlasmaOrdered By: Geoffrey Ibrahim on 09-21-2024 Potassium [Moles/Vol] Potassium [Moles/v olume] in Serum or Plasma 3.5-5.1 [facility] Protein Test strip (U) [Mass /Vol]Ordered By: Geoffrey Ibrahim on 09-21-2024 Protein (U) [Mass/Vol] Protein [Mass/vol ume] in Urine by Test strip Negative [facility] Protein [Mass/volume] in Ser um or PlasmaOrdered By: Geoffrey Ibrahim on 09-21-2024 Protein [Mass/Vol] Protein [Mass/volume ] in Serum or Plasma Low 6.4-8.9 [facility] RBC Auto (Bld) [#/Vol]Ordere d By: Geoffrey Ibrahim on 09-21-2024 RBC (Bld) [#/Vol] Erythrocytes [#/volu me] in Blood by Automated count 3.90-5.60 [facility] Segmented neutrophils/100 WB C Manual cnt (Bld)Ordered By: Geoffrey Ibrahim on 09-21-2024 Segmented neutrophils/100 WBC (Bld) Manual blood segmented neutrophils/100 leukocytes High 50-70 [facility] Serum or plasma albumin/glob ulin mass ratioOrdered By: Geoffrey Ibrahim on 09-21-2024 Albumin/Globulin [Mass ratio] Serum or plasma albumin/globulin mass ratio [facility] Serum or plasma anion gap de terminationOrdered By: Geoffrey Ibrahim on 09-21-2024 Anion gap [Moles/Vol] Serum or plasma an ion gap determination 6.0-15.0 [facility] Sodium [Moles/volume] in Ser um or PlasmaOrdered By: Geoffrey Ibrahim on 09-21-2024 Sodium [Moles/Vol] Sodium [Moles/volume ] in Serum or Plasma Low 136-145 [facility] Specific gravity Test strip (U) [Rel density]Ordered By: Geoffrey Ibrahim on 09-21-2024 Specific gravity (U) [Rel density] Specific gravity of Urine by Test strip 1.001-1.03 0 [facility] Urea nitrogen [Mass/volume] in Serum or PlasmaOrdered By: Geoffrey Ibrahim on 09-21-2024 Urea nitrogen [Mass/Vol] Urea nitrogen [Mass/volume] in Serum or Plasma High 7-25 [facility] Urinalysison 09-21-2024 Appearance (U) Clear Normal Clear [facility] Comment on above: Order Comment: Name Collection Type:: Clean-Voided Midstream Performed By: #### M ITOM2, HBSAG, HCBIGM, HBCAB, HBSAB, DYLAN, SMAB, HAAB, HAABT, HCV RX PCR, AFPTM, CERULOP, ALPHA PHEN, L-K MICRO, IGG, HEMOCHROM #### [facility] , #### KYLE, CMP, PT, CBC #### [address] Bilirubin,Urine Negative Normal Negative [facility] Comment on above: Order Comment: Name Collection Type:: Clean-Voided Midstream Performed By: #### M ITOM2, HBSAG, HCBIGM, HBCAB, HBSAB, DYLAN, SMAB, HAAB, HAABT, HCV RX PCR, AFPTM, CERULOP, ALPHA PHEN, L-K MICRO, IGG, HEMOCHROM #### [facility] , #### KYLE, CMP, PT, CBC #### [address] Color (U) Yellow Normal Yellow [facility] Comment on above: Order Comment: Name Collection Type:: Clean-Voided Midstream Performed By: #### M ITOM2, HBSAG, HCBIGM, HBCAB, HBSAB, DYLAN, SMAB, HAAB, HAABT, HCV RX PCR, AFPTM, CERULOP, ALPHA PHEN, L-K MICRO, IGG, HEMOCHROM #### [facility] , #### KYLE, CMP, PT, CBC #### [address] Glucose Ql (U) Normal Normal Normal [facility] Comment on above: Order Comment: Name Collection Type:: Clean-Voided Midstream Performed By: #### M ITOM2, HBSAG, HCBIGM, HBCAB, HBSAB, DYLAN, SMAB, HAAB, HAABT, HCV RX PCR, AFPTM, CERULOP, ALPHA PHEN, L-K MICRO, IGG, HEMOCHROM #### [facility] , #### KYLE, CMP, PT, CBC #### [address] Ketones Ql (U) Negative Normal Negative [facility] Comment on above: Order Comment: Name Collection Type:: Clean-Voided Midstream Performed By: #### M ITOM2, HBSAG, HCBIGM, HBCAB, HBSAB, DYLAN, SMAB, HAAB, HAABT, HCV RX PCR, AFPTM, CERULOP, ALPHA PHEN, L-K MICRO, IGG, HEMOCHROM #### [facility] , #### KYLE, CMP, PT, CBC #### [address] Leukocyte esterase Test strip Ql (U) Negative Normal Negative [facility] Comment on above: Order Comment: Name Collection Type:: Clean-Voided Midstream Performed By: #### M ITOM2, HBSAG, HCBIGM, HBCAB, HBSAB, DYLAN, SMAB, HAAB, HAABT, HCV RX PCR, AFPTM, CERULOP, ALPHA PHEN, L-K MICRO, IGG, HEMOCHROM #### [facility] , #### KYLE, CMP, PT, CBC #### [address] Nitrite,Urine Negative Normal Negative [facility] Comment on above: Order Comment: Name Collection Type:: Clean-Voided Midstream Performed By: #### M ITOM2, HBSAG, HCBIGM, HBCAB, HBSAB, DYLAN, SMAB, HAAB, HAABT, HCV RX PCR, AFPTM, CERULOP, ALPHA PHEN, L-K MICRO, IGG, HEMOCHROM #### [facility] , #### KYLE, CMP, PT, CBC #### [address] Occult Blood,Urine Negative Normal Negative [facility] Comment on above: Order Comment: Name Collection Type:: Clean-Voided Midstream Result Comment: PERF ORMED BY: [place] [address] PATHOLOGIST EXPRESSIVE THERAPIST LEANDRA WALSH M.D. Performed By: #### M ITOM2, HBSAG, HCBIGM, HBCAB, HBSAB, DYLAN, SMAB, HAAB, HAABT, HCV RX PCR, AFPTM, CERULOP, ALPHA PHEN, L-K MICRO, IGG, HEMOCHROM #### [facility] , #### KYLE, CMP, PT, CBC #### [address] pH (U) 6.0 [pH] Normal 5.0-9.0 [facility] Comment on above: Order Comment: Name Collection Type:: Clean-Voided Midstream Performed By: #### M ITOM2, HBSAG, HCBIGM, HBCAB, HBSAB, DYLAN, SMAB, HAAB, HAABT, HCV RX PCR, AFPTM, CERULOP, ALPHA PHEN, L-K MICRO, IGG, HEMOCHROM #### [facility] , #### KYLE, CMP, PT, CBC #### [place] [address] [place] Protein,Urine Negative Normal Negative [facility] Comment on above: Order Comment: Name Collection Type:: Clean-Voided Midstream Performed By: #### M ITOM2, HBSAG, HCBIGM, HBCAB, HBSAB, DYLAN, SMAB, HAAB, HAABT, HCV RX PCR, AFPTM, CERULOP, ALPHA PHEN, L-K MICRO, IGG, HEMOCHROM #### [facility] , #### KYLE, CMP, PT, CBC #### [address] Specificy [place],Urine 1.014 Normal 1.001-1.03 0 [facility] Comment on above: Order Comment: Name Collection Type:: Clean-Voided Midstream Performed By: #### M ITOM2, HBSAG, HCBIGM, HBCAB, HBSAB, DYLAN, SMAB, HAAB, HAABT, HCV RX PCR, AFPTM, CERULOP, ALPHA PHEN, L-K MICRO, IGG, HEMOCHROM #### [facility] , #### KYLE, CMP, PT, CBC #### [facility] [address] Urobilinogen,Urine Normal Normal Normal [facility] Comment on above: Order Comment: Name Collection Type:: Clean-Voided Midstream Performed By: #### M ITOM2, HBSAG, HCBIGM, HBCAB, HBSAB, DYLAN, SMAB, HAAB, HAABT, HCV RX PCR, AFPTM, CERULOP, ALPHA PHEN, L-K MICRO, IGG, HEMOCHROM #### [facility] , #### KYLE, CMP, PT, CBC #### [facility] [address] Urobilinogen Test strip (U) [Mass/Vol]Ordered By: Geoffrey Ibrahim on 09-21-2024 Urobilinogen (U) [Mass/Vol] Urobilinogen [Mass/volume] in Urine by Test strip Normal [facility] WBC Auto (Bld) [#/Vol]Ordere d By: Geoffrey Ibrahim on 09-21-2024 WBC (Bld) [#/Vol] Leukocytes [#/volume ] in Blood by Automated count 4.1-10.5 [facility] pH Test strip (U)Ordered By: Geoffrey Ibrahim on 09-21-2024 pH (U) pH of Urine by Test strip 5.0-9.0 [facility] BASIC METABOLIC PANELon 04-28 Anion gap [Moles/Vol] 9 mmol/L Normal 7-20 [facility] Comment on above: Performed By: #### L AB15 ####[facility] ([facility])[address] [place] [address] Calcium [Mass/Vol] 6.9 mg/dL Low 8.6-10.3 [facility] Comment on above: Performed By: #### L AB15 ####[facility] ([facility])[address] [place] [address] Chloride [Moles/Vol] 110 mmol/L High 98-107 [facility] Comment on above: Performed By: #### L AB15 ####[facility] ([facility])[address] [place] [address] CO2 [Moles/Vol] 22 mmol/L Normal 21-31 [facility] Comment on above: Performed By: #### L AB15 ####[facility] ([facility])[address] [place] [address] Creatinine [Mass/Vol] 1.04 mg/dL Normal 0.70-1.30 [facility] Comment on above: Performed By: #### L AB15 ####[facility] ([facility])[address] [place] [address] GLOMERULAR FILTRATION RATE ML/MIN/1.73 SQ M.PREDICTED 79.2 mL/min/1.73m*2 Normal >60.0 [facility] Comment on above: Result Comment: [facility]???s estimated glomerular filtration rate (eGFR) will [...] of individuals. Performed By: #### L AB15 ####[facility] ([facility])[address] [place] [address] Glucose [Mass/Vol] 86 mg/dL Normal 70-100 [facility] Comment on above: Performed By: #### L AB15 ####[facility] ([facility])[address] [place] [address] Potassium [Moles/Vol] 3.9 mmol/L Normal 3.5-5.1 [facility] Comment on above: Performed By: #### L AB15 ####[facility] ([facility]AKER)[address] [place] [address] Sodium [Moles/Vol] 137 mmol/L Normal 136-145 [facility] Comment on above: Performed By: #### L [id number] ####[facility] (BEAKER)[address] [place] [address] Urea nitrogen [Mass/Vol] 32 mg/dL High 7-25 [facility] Comment on above: Performed By: #### L [id number] ####[facility] (BEAKER)[address] [place] [address] UREA NITROGEN/CREATININE (MASS RATIO) IN SER/PLAS 30.8 Normal [facility] Comment on above: Performed By: #### L [id number] ####[facility] (BEAKER)[address] [place] [address] HPon 05-14-2024 HP ------- Attestation signed by [...] possible PCI. Joyce Rodrigues MD PGY-7 Interventional Stroke Coordinator [facility] NURSNOTEon 05-14-2024 NURSNOTE Patient okay to disc harge at [address] Otero. [facility] NURSNOTE RN educated pt on d/ c instructions. This included: site care, limited physical activity, resume normal diet, future appointments, medications, and moderate sedation instructions. RN educated pt on when to notify physician and when to go to the hospital. RN encouraged pt to voice any questions or concerns, and answered any questions or concerns if pt verbalized. [facility] NURSNOTE Dr. Aparicio notifi ed of normal creatnine result. states pt ok for early discharge at 2:30 and no need to continue IVF. [facility] Orders Onlyon 05-04-2024 Orders Only [id number] Chencho Penn 1955 Date Provider Department Center 05/04/2024 ERMA JUNE Family History Problem Relation Age of Onset Colon cancer Mother Coronary artery disease Father Cancer Brother Family Status - Relation Status Age at Mother Father Brother [facility] CREATININE, SERUMon 05-01-20 24 Creatinine [Mass/Vol] 1.45 mg/dL High 0.70-1.30 [facility] Comment on above: Performed By: #### L [id number] ####[facility] ([facility]AKER)[address] [place] [address] GLOMERULAR FILTRATION RATE ML/MIN/1.73 SQ M.PREDICTED 53.1 mL/min/1.73m*2 Low >60.0 [facility] Comment on above: Result Comment: [facility]???s estimated glomerular filtration rate (eGFR) will [...] of individuals. Performed By: #### L [id number] ####[facility] (JACEY)[address] [place] [address] CTA HEART CORONARY W IV [facility]2024 CTA HEART CORONARY W IV CONTRAST [...] Condon MD. Not Vldtd Invalid Interpretation Code [facility] Labon 05-01-2024 Lab [id number] Chencho Penn 1955 Date Provider Department [place] 05/01/2024 [id number] OPD LAB RESOURCE [facility]PD [place] [facility] Family History Problem Relation Age of Onset Colon cancer Mother Coronary artery disease Father Cancer Brother Family Status - Relation Status Age at Mother Father Brother [facility] HPon 04-29-[address] 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 [facility] Office Visiton 04-29-2024 Follow-up visit [id number] Chencho Penn 1955 M Date Provider Department Center 04/29/2024 TAJ SUNSHINE ANTHONY Kirkpatrick Family History Problem Relation Age of Onset Colon cancer Mother Coronary artery disease Father Cancer Brother Family Status - Relation Status Age at Mother Father Brother Level of Service:90492 [place] OFFICE/OP CONSLTJ NEW/EST PT MOD MDM 40 MINUTES [facility] [place] 04-18-2023 Consent [id number]#1.00CD:127 [facility] In office Testingon 04-18-20 23 In office Testing [id number]#1.00CD:127 [facility] Registrationon 04-18-2023 Registration [id number]#1.00CD:127 [facility] In office Testingon 03-15-20 23 In office Testing [id number]#1.00CD:127 [facility] [place] 03-08-2023 Consent [id number]#1.00CD:127 [facility] Registrationon 03-08-2023 Registration [id number]#1.00CD:127 [facility] In office Testingon 02-06-20 23 In office Testing [id number]#1.00CD:127 [facility] [place] 02-04-2023 Consent [id number]#1.00CD:127 [facility] Registrationon 02-04-2023 Registration [id number]#1.00CD:127 [facility] Patient Correspondenceon Patient Correspondence [id number]#1.00CD:127 [facility] Physician Referralon 023 Physician Referral [id number]#1.00CD:127 [facility] Physician Referral [id number]#1.00CD:127 [facility] [place] 11-09-2022 Consent [id number]#1.00CD:127 [facility] In office Testingon 11-10-19 23 In office Testing [id number]#1.00CD:127 [facility] Registrationon 11-09-2022 Registration [id number]#1.00CD:127 [facility] [place] 07-27-2022 Consent [id number]#1.00CD:127 [facility] Registrationon 07-27-2022 Registration [id number]#1.00CD:127 [facility] [place] 07-09-2022 Consent [id number]#1.00CD:127 [facility] In office Testingon 07-09-20 22 In office Testing [id number]#1.00CD:127 Normal [facility] Registrationon 07-09-2022 Registration [id number]#1.00CD:127 Normal [facility] In office Testingon 07-06-20 In office Testing [id number]#1.00CD:127 Normal [facility] GLYCOHEMOGLOBIN A1Con 2021 ADA RECOMMENDATION SEE BELOW Normal [facility] Comment on above: Result Comment: ADA RECOMMENDED LIMIT 4.0 - 6.0 ADA THERAPEUTIC TARGET < 7.0 ACTION SUGGESTED > 7.0 Performed By: #### A 1C #### [facility] [address] [address] [address] Sandor Coffman Glucose [Mass/Vol] 140 mg/dL Normal [facility] Comment on above: Performed By: #### A 1C #### [facility] [address] [address] [address] Sandor Coffman HbA1c (Bld) [Mass fraction] 6.5 % Critically high 4.5-6.2 [facility] Comment on above: Performed By: #### A 1C #### [facility] [address] [address] [address] Sandor Coffman Registrationon 05-01-2022 Registration [id number]#1.00CD:127 Normal [facility] [place] 04-27-2022 Consent [id number]#1.00CD:127 Normal [facility] HIP LEFT 1 OR 2 VWS WITH PEL VISon 08-27-2019 HIP LEFT 1 OR 2 VWS WITH PELVIS [facility] Department of Radiology [address] [place] [id number] Patient Name: GERSON PENN : 1955 [...] chronic findings as above. Electronically signed: David Rico Transcribed by: [email or web address], User Resident: Electronically Signed by: DAVID LILLY @ 08/27/2019 01:52 PM Normal [facility] Comment on above: Order Comment: , Vie ws (X-RAY, HIP): Radiologic Protocol , Views (X-RAY, HIP): Radiologic Protocol , , , Ordering Provider - LIZET LOVELACE MD , HIP LEFT 1 OR 2 VWS WITH PEL VISon 06-18-2019 HIP LEFT 1 OR 2 VWS WITH PELVIS [facility] Department of Radiology [address] [place] [id number] Patient Name: GERSON PENN : 1955 Sex: M Age: Race: White Pt. Location: Patient Status: Ordered Date: 06/17/2019 3:35:00 PM Completed Date: 06/18/2019 10:30 AM Requesting Provider: LIZET LOVELACE Attending Provider: Report Copy To: Signs & Symptoms: Z96.642 Presence of left artificial hip joint I10 History: [place] Comments: , Views (X-RAY, HIP): Radiologic Protocol [...] loosening Electronically signed by:Carlos Cameron. Transcribed by: [email or web address], User Resident: Electronically Signed by: CARLOS CAMERON @ 06/18/2019 02:11 PM Normal [facility] Comment on above: Order Comment: , Vie ws (X-RAY, HIP): Radiologic Protocol , Views (X-RAY, HIP): Radiologic Protocol , , , Ordering Provider - LIZET LOVELACE MD , Vital Signs Date Time Vital Sign Value [facility]forming [facility] 09:13-0400 Respiratory rate 18 /min Crispin Early DPM Work Phone: [facility] 2024 09:50-0400 Body height 177.8 cm Mary Lomax MD Work Phone: [facility] 2024 09:50-0400 Body mass index (BMI) [Ratio] 44.34 kg/m2 Mary Lomax MD Work Phone: [facility] 2024 09:50-0400 Body weight 140.16 kg Mary Lomax MD Work Phone: [facility] 2024 09:50-0400 Diastolic blood pressure 82 mm[Hg] Mary Lomax MD Work Phone: [facility] 2024 09:50-0400 Systolic blood pressure 114 mm[Hg] Mary Lomax MD Work Phone: [facility] 11-05-2024 10:19-0400 Diastolic blood pressure 62 mm[Hg] Peggy Muñoz MD Work Phone: [facility] 11-05-2024 10:19-0400 Heart rate 73 /min Peggy Muñoz MD Work Phone: [facility] 11-05-2024 10:19-0400 Systolic blood pressure 141 mm[Hg] Peggy Muñoz MD Work Phone: [facility] 09-22-2024 16:40-0500 Diastolic blood pressure 68 mm[Hg] Peggy Muñoz MD Work Phone: [facility] 09-22-2024 16:40-0500 Heart rate 73 /min Peggy Muñoz MD Work Phone: [facility] 09-22-2024 16:40-0500 Respiratory rate 16 /min Peggy Muñoz MD Work Phone: [facility] 09-22-2024 16:40-0500 SaO2% (BldA) [Mass fraction] 92 % Peggy Muñoz MD Work Phone: [facility] 09-22-2024 16:40-0500 Systolic blood pressure 145 mm[Hg] Peggy Muñoz MD Work Phone: [facility] 09-22-2024 15:55-0500 Body temperature 97.4 [degF] Peggy Muñoz MD Work Phone: [facility] 09-22-2024 15:25-0500 Inhaled oxygen flow rate 6 L/min Peggy Muñoz MD Work Phone: [facility] 09-22-2024 12:02-0500 Body height 173.99 cm Peggy Muñoz MD Work Phone: [facility] 09-22-2024 12:02-0500 Body weight 140.7 kg Peggy Muñoz MD Work Phone: [facility] 09-18-2024 08:08-0500 Body height 180.34 cm [facility] 09-18-2024 08:08-0500 Body mass index (BMI) [Ratio] 43.1 kg/m2 [facility] 09-18-2024 08:08-0500 Body weight 140.21 kg [facility] Encounters Encounter Date Encounter Type Care Provider Facility Start: 01-19-2025 End: 01-19-2025 ambulatory Peggy Muñoz Facility:[facility] Start: 01-18-2025 End: 01-18-2025 Bamboo flowsheet Crispin Early DPM Work Phone: [facility] Start: 01-18-2025 End: 01-18-2025 Bamboo flowsheet Crispin Early DPM Work Phone: [facility] Start: 01-18-2025 End: 01-18-2025 ambulatory CRISPIN EARLY Not Available Start: 01-18-2025 End: 01-18-2025 Office outpatient new 30 minutes Crispin Early DPM Work Phone: [facility] Comment on above: Venous insufficiency (Primary Dx); Diabetes mellitus due to underlying condition with diabetic polyneuropathy, 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 insulin 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 (HCC); Pain due to onychomycosis of toenails of both feet Start: 01-12-2025 ambulatory NON STAFF Facility:[facility] Start: 01-08-2025 End: 01-08-2025 ambulatory Peggy Muñoz Facility:[facility] Start: 12-30-2024 ambulatory MARY LOMAX [facility] Start: 2024 End: 2024 Office outpatient new 30 minutes Mary Lomax MD Work Phone: [facility] Comment on above: Abnormal findings on diagnostic imaging of gallbladder (Primary Dx) Start: 2024 End: 2024 ambulatory [facility] Start: 12-18-2024 End: 12-18-2024 ambulatory [facility] Start: 12-18-2024 End: 12-18-2024 ambulatory [facility] Start: 11-26-2024 End: 11-26-2024 Patient encounter procedure Peggy Muñoz MD Work Phone: [facility] Work Phone: Start: 11-26-2024 End: 11-26-2024 ambulatory Peggy Muñoz MD Work Phone: [facility] Work Phone: Start: 11-18-2024 End: 11-18-2024 ambulatory Peggy Muñoz MD Work Phone: [facility] Work Phone: Start: 11-18-2024 End: 11-18-2024 Departed Referred Peggy Muñoz MD Work Phone: [facility]-LAB Path [facility] Start: 11-05-2024 End: 11-05-2024 Patient encounter procedure Peggy Muñoz MD Work Phone: [facility] Work Phone: Start: 11-05-2024 End: 11-05-2024 ambulatory Peggy Muñoz MD Work Phone: [facility] Work Phone: Start: 11-05-2024 End: 11-05-2024 ambulatory Peggy Muñoz MD Work Phone: [facility] Work Phone: Start: 11-05-2024 End: 11-05-2024 Patient encounter procedure Peggy Muñoz MD Work Phone: [facility] Work Phone: Start: 11-02-2024 End: 11-02-2024 ambulatory Peggy Muñoz MD Work Phone: [facility] Work Phone: Start: 11-02-2024 End: 11-02-2024 Patient encounter procedure Peggy Muñoz MD Work Phone: [facility] Physician [facility] Work Phone: Start: 11-02-2024 End: 11-02-2024 Patient encounter procedure Peggy Muñoz MD Work Phone: [facility]-XRay [facility] Start: 11-02-2024 End: 11-02-2024 ambulatory Peggy Muñoz MD Work Phone: [facility] Work Phone: Start: 10-20-2024 End: 10-20-2024 ambulatory Peggy Muñoz MD Work Phone: [facility] Work Phone: Start: 10-20-2024 End: 10-20-2024 Departed Referred Peggy Muñoz MD Work Phone: [facility] Start: 10-07-2024 End: 10-07-2024 ambulatory Peggy Muñoz MD Work Phone: [facility] Work Phone: Start: 10-07-2024 End: 10-07-2024 Patient encounter procedure Peggy Muñoz MD Work Phone: [facility] Physician [facility] Work Phone: Start: 09-22-2024 End: 09-22-2024 Admission to same day surgery center Peggy Muñoz MD Work Phone: [facility] [place] Start: 09-22-2024 End: 09-22-2024 ambulatory Peggy Muñoz MD Work Phone: [facility] Work Phone: Start: 09-22-2024 Non-patient / Non-visit Vi Muñoz MD Work Phone: [facility] Work Phone: Start: 09-21-2024 End: 09-21-2024 Patient encounter procedure Peggy Muñoz MD Work Phone: [facility] Testing Work Phone: Start: 09-21-2024 End: 09-21-2024 ambulatory Peggy Muñoz MD Work Phone: [facility] Work Phone: Start: 09-21-2024 Encounter for preprocedural laboratory examination Geoffrey Ibrahim [facility] Start: 09-18-2024 End: 09-18-2024 ambulatory [facility] Work Phone: Start: 09-18-2024 End: 09-18-2024 Patient encounter procedure [facility] Work Phone: Start: 05-14-2024 End: 05-14-2024 ambulatory [facility] Start: 05-01-2024 Encounter for other preprocedural examination [facility] Start: 05-01-2024 End: 05-01-2024 ambulatory [facility] Start: 04-29-2024 End: 04-29-2024 ambulatory [facility] Start: 04-18-2023 End: 04-19-2023 ambulatory Tuan [...] Treatment Date Care Activity Detail Author Start: 2025 Adult BMI Screening Adult BMI Screening [facility] Start: 2025 Tobacco Screening Tobacco Screening [facility] Start: 03-29-2025 Influenza vaccination [facility] Start: 11-18-2024 Bacteria identified in Urine by Culture Urine Culture [facility] Start: 11-18-2024 Urine culture [facility] Start: 11-05-2024 Actin smooth muscle IgG Ab [Units/volume] in Serum [facility] Start: 11-05-2024 Umrcw-9-jsbapfxrfzl.tumor marker [Mass/volume] in Serum or Plasma [facility] Start: 11-05-2024 Ceruloplasmin [Mass/volume] in Serum or Plasma [facility] Start: 11-05-2024 Hepatitis A virus Ab [Presence] in Serum by Immunoassay [facility] Start: 11-05-2024 Hepatitis A virus antibody, IgM type [facility] Start: 11-05-2024 Hepatitis B core antibody measurement [facility] Start: 11-05-2024 Hepatitis B core antibody measurement, IgM type [facility] Start: 11-05-2024 Hepatitis B virus surface Ab [Presence] in Serum [facility] Start: 11-05-2024 IgG [Mass/volume] in Serum or Plasma [facility] Start: 11-05-2024 Lipoprotein a [Moles/volume] in Serum or Plasma [facility] Start: 11-05-2024 Mitochondria M2 IgG Ab [Units/volume] in Serum [facility] Start: 11-05-2024 [facility] Start: 11-02-2024 Plain X-ray of left elbow XR elbow LT 2V [facility] Start: 11-02-2024 XR Elbow - left 2 Views [facility] Start: 10-20-2024 Urine culture [facility] Start: 10-20-2024 Bacteria identified in Urine by Culture Urine Culture [facility] Start: 10-07-2024 Plain X-ray of left elbow XR elbow LT 2V [facility] Start: 10-07-2024 XR Elbow - left 2 Views [facility] Start: 09-22-2024 [facility] Start: 09-22-2024 [facility] Start: 09-22-2024 Plain X-ray of left elbow XR elbow LT min 3V* [facility] Start: 09-22-2024 XR Elbow - left GE 3 Views [facility] Start: 03-29-2024 COVID-19 Vaccine ( season) COVID-19 Vaccine ( season) [facility] Start: 2022 Abdominal aortic aneurysm screening Abdominal Aortic Aneurysm (AAA) Screen [facility] Start: 2022 Fall Risk Screening Fall Risk Screening [facility] Start: 12-30-2007 Administration of varicella zoster vaccine Zoster (Shingles) Vaccine (1 of 2) [facility] Start: 12-30-2007 Pneumococcal Vaccine: 65+ Years (1 of 1 - PCV) Pneumococcal Vaccine: 65+ Years (1 of 1 - PCV) [facility] Start: 1976 DTaP,Tdap and Td Vaccines (1 - Tdap) DTaP,Tdap and Td Vaccines (1 - Tdap) [facility] Start: 12-30-1975 Adult BMI Follow Up Plan Adult BMI Follow Up Plan [facility] Start: 1969 Depression Screening Depression Screening [facility] Start: 1955 Medicare Annual Wellness (AWV) Medicare Annual Wellness (AWV) [facility] Start: 1955 Screening for malignant neoplasm of colon [facility] Actin smooth muscle IgG Ab [Units/volume] in Serum [facility] Alpha 1 antitrypsin [Mass/volume] in Serum or Plasma [facility] Alpha 1 antitrypsin [Mass/volume] in Serum or Plasma [facility] Alpha 1 antitrypsin phenotyping [Identifier] in Serum or Plasma by Immunofixation [facility] Hotfa-9-cwbbyfoneuc. tumor marker [Mass/volume] in Serum or Plasma [facility] Ceruloplasmin [Mass/volume] in Serum or Plasma [facility] Comprehensive metabo lic 2000 panel - Serum or Plasma [facility] Hepatitis A virus Ab [Presence] in Serum by Immunoassay [facility] Hepatitis A virus antibody, IgM type [facility] Hepatitis B core ant ibody measurement [facility] Hepatitis B core ant ibody measurement, IgM type [facility] Hepatitis B virus garcia rface Ab [Presence] in Serum [facility] Hepatitis B virus garcia rface Ag [Presence] in Serum or Plasma by Immunoassay [facility] Hepatitis C virus Ig G Ab [Presence] in Serum or Plasma by Immunoassay [facility] HFE gene mutations f ound [Identifier] in Blood or Tissue by Molecular genetics method Nominal [facility] Homogenous nuclear A b pattern [Titer] in Serum [facility] IgG [Mass/volume] in Serum or Plasma [facility] Lipoprotein a [Moles/volume] in Serum or Plasma [facility] Mitochondria M2 IgG Ab [Units/volume] in Serum [facility] Nuclear Ab [Titer] i n Serum [facility] Patient Education Know your Meds [facility] Work Phone: Patient referral [facility] Work Phone: [facility] Immunizations Immunization Date Immunization Notes Care Provider [facility] 06-20-2020 influenza virus vaccine, unspecified formulation Mary Lomax MD [facility] Payers Date Payer Category Payer Private Health Insurance [id number] 2024 Medicare (Managed Care) [facility] [id number] 2024 Medicare HMO [employer] [id number] 2024 Medicare [id number] 2023 Unknown [id number] Self-pay 1955 Unknown [id number] 2.16.840.1.167462.3.579 .2.593 1955 Unknown [id number] 2.16.840.1.191664.3.579 .2.593 1955 Unknown [id number] 2.16.840.1.259501.3.579 .2.593 1955 Unknown [id number] 2.16.840.1.114099.3.579 .2.727 1955 Unknown [id number] 2.16.840.1.624094.3.579 .2.1286 1955 Unknown [id number] 2.16.840.1.144505.3.579 .2.1286 1955 Unknown [id number] 2.16.840.1.622112.3.579 .2.1286 1955 Unknown [id number] 2.16.840.1.472939.3.579 .2.1286 1955 Unknown [id number] 2.16.840.1.643837.3.579 .2.1286 1955 Unknown [id number] 2.16.840.1.306008.3.579 .2.1259 Medicare [id number] Private Health Insurance [employer] [id number] Unknown [id number] Unknown O [id number] Unknown [id number] 2.16.840.1.493578.3.579 .2.531 Unknown [id number] 2.16.840.1.944694.3.579 .2.531 Unknown [id number] 2.16.840.1.797969.3.579 .2.531 Unknown [id number] 2.16.840.1.041363.3.579 .2.531 Unknown [id number] 2.16.840.1.610685.3.579 .2.531 Unknown [id number] 2.16.840.1.441945.3.579 .2.531 Unknown [id number] 2.16.840.1.272404.3.579 .2.531 Unknown [id number] 2.16.840.1.883565.3.579 .2.531 Unknown [id number] 2.16.840.1.607108.3.579 .2.531 Unknown [id number] 2.16.840.1.861647.3.579 .2.531 Unknown [id number] 2.16.840.1.499805.3.579 .2.531 Worker's Compensation [employer] [facility] [id number] Social History Date Type Detail Facility Tobacco smoking stat [facility] Unknown if ever smoked [facility] Work Phone: Start: 1955 Sex Assigned At Male F [facility] Start: 07-24-2019 Tobacco smoking stat [facility] Current some day smoker [facility] Start: 03-01-2015 End: 09-18-2024 Sex Male (finding) [facility] Start: 09-21-2024 End: 2024 Tobacco smoking status [facility] Ex-smoker (finding) [facility] History of tobacco use Current smoker [facility] History of tobacco use Cigarette Smoker P [facility] Start: 2024 Tobacco use and exposure Smokeless tobacco non-user [facility] Start: 2024 Alcoholic beverage intake [facility] Start: 01-07-2019 End: 2024 History of Social function [facility] [employer] [facility] Start: 01-07-2019 End: 2024 Tobacco use panel [facility] Childcare Unknown [facility] Start: 1955 Sex assigned at Not on file P [facility] Start: 01-18-2025 Tobacco smoking stat [facility] Tobacco smoking consumption unknown [facility] Healthcare Medical Equipment Procedure Code Equipment Code Equipment Origin al Text Equipment Identifier Dates Open reduction and internal fixation of fracture of humerus Elbow radius prosthesis [id number] FDA Start: 09-22-2024 Open reduction and internal fixation of fracture of humerus Elbow radius prosthesis [id number] FDA Start: 09-22-2024 Goals Date Patient Goal Desired Activity /State Clinical Notes 04-29-2024 to 01-18-2025 Crispin Early DPM - 01/18/2025 9:00 AM EDTMmarguerite Lomax MD - 2024 9:45 AM EDT Note Date & Type Note Facility 01-18-2025 History of Present illness Narrative Patient: Gerson Penn : 1955 PCP: Noms Provider MD Sahil SUBJECTIVE This is a 69 y.o. male that presents today with a CC of elongated, thick nails. Pt states nails have been elongated and thick for many years and cause pain with ambulation in shoegear. Pt has tried previous treatment with minimal relief. Pt presents today for nail care and treatment. Patient is DM2 with peripheral neuropathy Pt also presents today for secondary complaint of swelling to b/l ankle regions and feet. They state that condition is starting to worsten have tried no treatments for the condition. States swelling worstens with prolonged standing activities. Allergies: Not on File Past Medical History: Past Medical History: Diagnosis Date Anemia Depression Diabetes (HCC) Hypovolemia Unspecified cirrhosis of liver (HCC) Medications: Current Outpatient Medications: Januvia 100 MG tablet, Take 100 mg by mouth Daily, Disp: , Rfl: spironolactone (Aldactone) 50 MG tablet, Take 50 mg by mouth in the morning and 50 mg in the evening. Take with meals., Disp: , Rfl: levothyroxine (Synthroid, Levoxyl) 50 MCG tablet, TAKE 1 TABLET BY MOUTH EVERY DAY IN THE MORNING ON EMPTY STOMACH FOR 90 DAYS, Disp: , Rfl: liothyronine (Cytomel) 5 MCG tablet, TAKE 1 TABLET BY MOUTH EVERY DAY ON EMPTY STOMACH FOR 90 DAYS, Disp: , Rfl: Social History: Social History Socioeconomic History Marital status: Spouse name: Not on file Number of children: Not on file Years of education: Not on file Highest education level: Not on file Occupational History Not on file Tobacco Use Smoking status: Unknown Smokeless tobacco: Not on file Substance and Sexual Activity Alcohol use: Not on file Drug use: Not on file Sexual activity: Not on file Other Topics Concern Not on file Social History Narrative Not on file Social Drivers of Health Financial Resource Strain: Not on file Food Insecurity: No Food Insecurity (2024) Received from [facility] Hunger Screening Within the past 12 months we worried whether our food would run out before we got money to buy more.: Never True Within the past 12 months the food we bought just didn't last and we didn't have money to get more.: Never True Transportation Needs: Not on file Physical Activity: Not on file Stress: Not on file Social Connections: Not on file Intimate Partner Violence: Unknown (09/19/2023) Received from [facility] Safety & Environment Fear of Current or Ex-Partner: Not on file Emotionally Abused: Not on file Physically Abused: Not on file Sexually Abused: Not on file Physically or Sexually Abused: Not on file Housing Stability: Not on file ROS: Gastrointestinal: denies abdominal pain, ulcers, or changes in appetite or bowel habits Musculoskeletal: Positive generalized arthritis to joints and denies loss of strength. Cardiovascular: denies CP, palpitations, irregular rhythms OBJECTIVE LE EXAM: DERM: Elongated thick yellow crumbly nails digits 1 through 10. Negative hair growth with thin shiny atrophic skin bilaterally +1 pitting edema to bilateral ankles VASC: Negative DP and negative PT pedal pulses NEURO: 5.07 [place]ana monofilament test diminished to digits and forefoot bilaterally 125Hz tuning fork diminished to 1st MPJ bilaterally ORTHO: Positive pain on palpation to toenails of the left 1,2,3,4,5 toes and right 1,2,3,4,5 toes ASSESSMENT 1. Venous insufficiency 2. Diabetes mellitus due to underlying condition with diabetic polyneuropathy, 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 insulin use (HCC) 3. Pain due to onychomycosis of toenails of both feet PLAN Discussed proper foot care with patient today. Debride nails in length and thickness digits 1 through 10 Patient educated today on proper diabetic foot care including monitoring feet daily for any signs of infection openings in the skin or irregularities to both feet. Patient had a diabetic neurological exam today to both their feet and discussed proper shoe gear. Visit spent with patient education on condition and treatment of condition. Pt to continue with elevation of feet while resting or NWB. Discussed compression hose and the use of stockings for edema. Discussed condition in detail. Recommendation for [id number] compression stockings at this time and may consider prescription stockings in the future. Crispin Early DPM documented in this encounter [facility] 2024 History of Present illness Narrative Images from the original note were not included. Chief Complaint: He needs his gallbladder out History of Present Illness: Gerson Penn is a 69 y.o. male who presents office due to his doctor telling him he needs his gallbladder out. They told him that it is affecting his liver and pancreas. He was recently admitted to the hospital, he was recently discharged from his [facility]. This morning and this was associated with nausea. He states that he was having right upper quadrant pain. He was visibly jaundice. He is in a wheelchair. He was here with his spouse. He was just started seeing a GI specialist, Dr. Rodgers, once again. He was not following up with anyone since 2012. Medical history includes liver cirrhosis secondary to VEOLZ, morbid obesity, BMI 44, portal hypertension, obstructive [...] the morning and 1 tablet before bedtime., Disp: , Rfl: ferrous sulfate 325 (65 FE) MG [...] Interpersonal Safety: Unknown (09/19/2023) Received from [facility] Safety & Environment Fear of Current or [...] results found for: INR , PROTIME From [place] 12/14/2024 Ammonia 43, high WBC 4.7, hemoglobin 10.3, platelets a 138 Lipase 125, 214, upper limit is 77 < 3x upper limit Sodium 141, BUN 55, creatinine 1 point 6, total bilirubin 1.8, AST 132, ALT 104, alkaline phosphatase 244, albumin 1.2 Imaging: Ultrasound right upper quadrant at [facility] performed 12/11/2024 Liver has lobulated margins [...] ascites. Contracted gallbladder without cholelithiasis with pericholecystic fluid versus ascites. Assessment: Gerson Penn is a 69 y.o.male with right upper [...] give the patient and his spouse a copy of recent CT abdomen as well as ultrasound. I asked them to talk to his GI specialist about this as soon as possible so that this is not missed. He will follow-up with our office as needed Evaluation included: Preparing to see the patient (e.g., review of tests) Obtaining and/or reviewing separately obtained history Performing a medically appropriate examination and/or evaluation Counseling and educating the patient/family/caregiver Referring and communicating with other health health care facility administrator Mary Lomax MD [facility] [place] documented in this encounter [facility] [facility] 12-17-2024 Note Received referral fo r patient from PCP Dr. Peggy Muñoz. Dx: chronic cholelithiasis with pancreatitis and a history of liver disease. Called patient to schedule, but no answer and VM not set up. Reached out to spouse SHABANA who reports that patient currently at [facility] but she and patient unwilling to travel to [place] for consult/treatment. Reports she cannot transport him due to distance. Declines referral at this time and will seek care closer in proximity to their hometown. [facility] 11-26-2024 Radiology Diagnostic study note [facility] Main [place] [address] [place] [address] CT Scan Report Signed Patient: Gerson Penn MR#: [id number] : 1955 Acct:[id number] Age/Sex: 68 / M ADM Date: 5 Loc: CT Room: Type: [facility] Attending Dr: Derrek Rodgers MD Copies to: [...] bowel and colon demonstrate no acute process.[ Peritoneum/Retroperitoneum:Small amount of ascites. No free air or [...] effusions. Impression dictated by: Gage Noland Jr., Claudia 11/26/2024 3:27 PM Dictation Location: [place] [address] Transcribed By: [facility] 11/26/24 1527 Dictated By: Gage Noland Jr, DO 11/26/24 1519 Signed By: 11/26/24 1527 [facility] 11-05-2024 Evaluation note Authored November 05, [...] kidney function Will arrange for screening colonoscopy [facility] Work Phone: 1(491) 623-362702-21-2025 Evaluation note* Diagnosis Onset Date Resolution Status Admit Date Fracture of coronoid process of left ulna acute September 18, 2 025 7:49am Fracture of radial head, left, closed acute September 18, 2 025 7:49am [facility] Work Phone: 1(216) 836-877902-21-2025 Evaluation note* Diagnosis Onset Date Resolution Status [...] Other specified postprocedural states noneactive September 8:05am [facility] Work Phone: 1(810) 122-564902-21-2025 Evaluation note* Diagnosis Onset Date Resolution Status [...] postprocedural states noneactive November 02, 2024 9:55am [facility] Work Phone: 1(726) 832-470010-17-2024 NotePatient: Gerson Penn Procedure Information Date/Time: 05/14/24 1200 Procedures: Coronary angiography Right heart cath Location: [facility] SUPERINTENDENT 2 BIPLANE / [facility] (Cath) Providers: Taj Otero MD [...] products. Plan discussed with attending. 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 [facility] information [facility] Work Phone: Evaluation note* Diagnosis Onset Date Resolution Status Admit Date Fracture of coronoid process of left ulna acute September 18, 2 025 7:49am Fracture of radial head, left, closed acute September 18, 2 025 7:49am [facility] Work Phone: Evaluation note* [facility] Authored November 05, 2024 11: 08am [...] kidney function Will arrange for screening colonoscopy [facility] Work Phone: Evaluation note* Diagnosis Abnormal findings on diagnostic imaging of gallbladder- Primary documented [facility] this [facility] Diagnosis Venous insufficiency- Primary Unspecified venous (peripheral) insufficiency Diabetes mellitus due to underlying condition with diabetic polyneuropathy, unspecified whether correction insulin use (HCC) Pain due to onychomycosis of toenails of both feet documented in this encounter [facility] HealthcareInstructionsNot on filedocumented in this encounterProC[facility] Summary Purpose Family History No Family History [...] Reason for Visit Chief Complaint Admit Date SECOND HAND PAPER MACHINE LT ELBOW FX [facility] 2024 7:49am Reason for Visit Admit Date Fracture of coronoid process of left uln a September 18, 2024 7:49am Fracture of radial head, left, closed Fe bru2024 7:49am Chief Complaint Admit Date SECOND HAND PAPER MACHINE LT ELBOW FX [facility] 2024 7:49am Left Radial Head Fracture September 21, 2024 7:38am Chief Complaint Admit Date SECOND HAND PAPER MACHINE LT ELBOW FX [facility] 2024 7:49am Left Radial Head Fracture September 21, 2024 7:38am Left Radial Head Fracture September 22, 2024 7:29am Left Radial Head Fracture September 22, 2024 10:58am Chief Complaint Admit Date SECOND HAND PAPER MACHINE LT ELBOW FX [facility] 2024 7:49am Left Radial Head Fracture [...] 8:05am Fracture of radial head, left, closed [facility] 2024 8:05am Other specified postprocedural states [facility] 2024 8:05am Chief Complaint Admit Date SECOND HAND PAPER MACHINE LT ELBOW FX [facility] 2024 7:49am Left Radial Head Fracture September 21, 2024 7:38am Left Radial Head Fracture September 22, 2024 7:29am Left Radial Head Fracture September 22, 2024 10:58am 3 weeks post op October 07, 2024 8:0 5am S52.122A - Displaced fracture of head of left radi October 07, 2024 8:07am Unknown October 20, 2024 6:2 0pm Chief Complaint Admit Date SECOND HAND PAPER MACHINE LT ELBOW FX [facility] 2024 7:49am Left Radial Head [...] 8:05am Fracture of radial head, left, closed [facility] 2024 8:05am Other specified postprocedural states [facility] 2024 8:05am Fracture of coronoid process of left uln a November 02, 2024 9:55am Fracture of radial head, left, closed [facility] 2024 9:55am Other specified postprocedural states [facility] 2024 9:55am Chief Complaint Admit Date SECOND HAND PAPER MACHINE LT ELBOW FX [facility] [...] 8:05am Fracture of radial head, left, closed [facility] 2024 8:05am Other specified postprocedural states Ma [...] 05, 2024 10:08am Chief Complaint Admit Date SECOND HAND PAPER MACHINE LT ELBOW FX [facility] [...] 2024 11: 25am Chief Complaint Admit Date SECOND HAND PAPER MACHINE LT ELBOW FX [facility] [...] 2024 12: 30pm Chief Complaint Admit Date SECOND HAND PAPER MACHINE LT ELBOW FX [facility] 2024 7:49am Left Radial Head [...] and content) DATE CREATED AUTHOR 06/17/2020 [facility] DATE CREATED AUTHOR AUTHOR'S ORGANIZ ATION 07/07/2022 [facility] DATE CREATED AUTHOR AUTHOR'S ORGANIZ ATION 04/20/[address] [facility] DATE CREATED AUTHOR AUTHOR'S ORGANIZ ATION 12/24/2024 [facility] DATE CREATED AUTHOR AUTHOR'S ORGANIZ ATION 12/31/2024 [facility] DATE CREATED AUTHOR AUTHOR'S ORGANIZ ATION 01/19/2025 [facility] EP[facility] DATE CREATED AUTHOR AUTHOR'S ORGANIZ ATION 01/20/2025 [facility] Goals (unrecognized section and content) Goals may be documented in a n alternate sectionGoals may be documented in an alternate sectionGoals may be documented in an alternate sectionNot on filedocumented as of this encounter Care Teams (unrecognized sec tion and content) Team Status: Active Member Role Status Netta Muñoz MD Primary Care Provider Active Team [...] November 26, 2024 End: November 26, 2024 Clothing Pattern Preparer Relationship Specialty Start Date End Date Peggy Muñoz MD [address] [facility] [place] [address] PCP - General Family Medicine 12/22/24 Clothing Pattern Preparer Relationship Specialty Start Date End Date Unallocated, Janey Odell MD [address] [place] [address] PCP - General Family Medicine 10/26/24 Clothing Pattern Preparer Relationship Specialty Start Date End Date Unallocated, Janey Odell MD [address] [place] [address] PCP - General Family Medicine 10/26/24 Reason for Visit (unrecogniz ed section and content) Reason Comments Cholelithiasis Cholelithiasis, refe rred by Dr. Muñoz Reason Comments DM Foot Care Dm nial care FOR RECORDS PERTAINING TO PATIENTS WHO ARE [...] BE BASED ON THE PRIMARY CLINICAL RECORDS. [facility] [employer] [facility]. provides no warranty or guarantee of the accuracy or completeness of information in this document.
--- OUTSIDE RECORDS SUMMARY | 2025-01-21 01:13 | XMS_ITS | Encounter Summary ---
Author Organization [employer] [facility] tem Address [id number] [address] [place] [address] Care Team Providers Care Cargo Operations Agent Name Role Phone Desmond Muñoz MD Primary Care Provider [phone] Encounter Details Date Type Department Care Team (Late st Contact Info) Description 12/18/2024 Telephone [facility] [address] [place] [address] Tiara Lomax MD [address] [place] [address] Social History Tobacco Use Types [...] She stated Gerson was currently in a halfway and she would call the office back to schedule once he's been released. documented in this encounter Plan of Treatment Not on file documented as of this encounter Visit Diagnoses Not on filedocumented in this encounter Care Teams Cargo Operations Agent Relationship Specialty Start Date End Date Desmond Muñoz MD [address] [facility], [place] [address] PCP - General Family Medicine 12/22/24 documented as of this encounter
[2025-01-21 01:20] LABS: Ammonia 36 umol/L (11-32)
== END 2025-01-21 01:05 | disposition home or self-care (01) ==
LOC: LAB 01:04
PROVIDERS: PCP Family Medicine; Visit Provider Family Medicine
DX: K76.9 Liver disease, unspecified (principal)
CPT/HCPCS: 36415; 82140

== ENCOUNTER 2025-01-26 02:15 | Outpatient (REF) | payer MEDICARE, SELFPAY ==
--- OUTSIDE RECORDS SUMMARY | 2025-01-26 02:19 | XMS_ITS | Clinical Summary ---
Author Organization [facility] Address [facility] [place] [address] Care Team Providers Care Metal Spray Operator Name Role Phone House Sr., Sedrick GRIMES Rhonda Primary Care Provider + Allergies No known active allergies Medications furosemide 40 mg tablet Take 1 tablet by mouth once daily. 30 tablet 1 12/12/2012 Active potassium chloride (KLOR-CON) 20 mEq packet Take 20 mEq by mouth once daily. 30 tablet 1 12/12/2012 Active cyanocobalamin 500 mcg Tab Take 1 tablet by mouth once daily. 30 tablet 1 12/12/2012 Active linagliptin 5 mg Tab Take 5 mg by mouth once daily. 30 tablet 1 12/12/2012 Active carvedilol 6.25 mg tablet Take 1 tablet by mouth twice daily with meals. 60 tablet 1 12/12/2012 Active metOLAzone 5 mg tablet Take 1 tablet by mouth once daily. 30 tablet 2 12/12/2012 Active Active Problems Problem Noted Date Diagnosed Date Hypotension 12/03/2012 Overview (12/03/2012): Resolved -Post TIPS procedure. Given 500 ml NSB and 100ml/hr NS x 4 hours; hypertensive meds held, and pt was admitted for observation. On discharge BP was stable and he was resumed on home BP meds: see dosages below. SUMMARY 12/03/2012 Overview (12/03/2012): 56 y/o male with PMH of HTN , DM, ESLD from [facility], who was admitted for a TIPS procedure today. Post procedure had some Hypotension which responded to Iv fluids. Sent to the floor for observation . Anemia 12/03/2012 Overview (12/03/2012): -stable -likely ACD; on admission Hb 9.8; after TIPS was 10.7. Pt to f/u with his PCP one week after discharge for CBC. Liver cirrhosis 12/03/2012 Overview (12/03/2012): liver cirrhosis dx in Jul 2012, c/w portal hypertension, refractory ascites, esophageal varices (s/p banding), HRS; etiology unknown considered to be 2/2 VELOZ -LFTs, INR wnl; plt 127;5/7 pt under TIPS for refractory ascites; Pre TIPS pressures: Right atrium 5 mm Hg. Free Hepatic 13 mm Hg. Wedge Hepatic 24 mm Hg. Direct portal 30 mm Hg. Corrected sinusoidal gradient was calculated to be 11 mm Hg.Post TIPS pressures: Right atrium 13-14 mm Hg. Portal 22 mm Hg. Nigel atrial gradient was calculated to be 9 mm Hg. On discharge pt was sent home on lasix 40mg QD as he states that was his home dose. He also has f/u vascular liver ultrasound on 12/11; and he is f/u with his home telephoto engineer per Dr. Claudio on 12/08; Dr. Cisse Ascites 11/11/2012 Portal hypertension 11/05/2012 Resolved Problems Problem Noted Date Diagnosed Date Resolved Date Hypokalemia 12/03/2012 12/03/2012 Overview (12/03/2012): Plan -replace K as needed to keep it between 3.5-5 Family History Medical History Relation Comments Ischemic Heart Disease Father Relation Status Comments Father Social History Tobacco Use Types Packs/Day Years Used Date Smoking Tobacco: Former Comments:quit 07/29/12 Alcohol Use Standard Drinks/Week Comments No 0 (1 standard drink = 0.6 oz pur e alcohol) no alcohol x 20 years Sex and Gender Information Value Date Recorded Sex Assigned at Not on file Legal Sex Male 4:56 PM EDT Gender Identity Not on file Sexual Orientation Not on file 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 Not on file Not on file Not on file Last Filed Vital Signs Vital Sign Reading Time Taken Comments Blood Pressure 102/53 12/12/2012 9:18 AM EDT Pulse 71 12/12/2012 9:18 AM EDT Temperature 37.2 C (99 F) 12/03/2012 6:00 AM EDT Respiratory Rate 18 12/03/2012 6:00 AM EDT Oxygen Saturation 98% 12/12/2012 9:18 AM EDT Inhaled Oxygen Concentration - - Weight 136.1 kg (300 lb) 12/12/2012 9:18 AM EDT Height 180.3 cm (5' 11 ) 12/12/2012 9:18 AM EDT Body Mass Index 41.84 12/12/2012 9:18 AM EDT Plan of Treatment Health Maintenance Due Date Last Done Comments Abdominal Aortic Aneurysm Screening 1955 Anxiety Screening 12/30/1975 Depression Screening 12/30/1975 Hepatitis C Screening 12/30/1975 DTaP,Tdap,Td Vaccine (1 - Tdap) [address] Colonography 2002 Cologuard (FIT-DNA) 2002 Colonoscopy 2002 Colorectal Cancer Screening 2002 Fecal Occult Blood 2002 Prostate Cancer Screening Discussion 2002 Sigmoidoscopy 2002 Pneumococcal Vaccine: 50+ (1 of 1 - PCV) 12/30/2007 Shingrix Vaccine (1 of 2) 12/30/2007 Diabetes Screening 12/04/2015 12/03/2012, 0 12/02/2012, 12/02/2012, Additional history exists Covid-19 Vaccine ( - 2023-2 5 season) 2024 Advance Directive Discussion 07/29/2024 Influenza Vaccine (Season Ended) 2025 RSV Vaccine (1 - 1-dose 75+ series) 2032 Procedures Procedure Name Priority Date/Time Associated Diagnosis Comments CT OUTSIDE CD DICOM IMPORT 11/26/2024 EXTERNAL IMAGING 11/05/2024 11:5 3 AM EDT COMPREHENSIVE METABOLIC PANEL Routine 12/03/2012 3:47 AM EDT from Last 3 Months or Most Recently Relevant to Health Maintenance Results * CT-CT abdomen wo/w con IMPORT (11/26/2024) Anatomical Region Laterality Modality Other 11/26/2024 Narrative 11/29/2024 10:01 AM EDT Images were obtained outside of [facility] Procedure Note Provider, [facility] [place] - 11/29/2024 Images were obtained outside of [facility] RADIOLOGY Final Result * EXTERNAL IMAGING (11/05/2024 11:53 AM EDT) Anatomical Region Laterality Modality Other External Provider PA-C RADIOLOGY Final Res ult * (ABNORMAL) COMP METABOLIC PANEL (12/03/2012 3:47 AM EDT) Protein, Total 5.9(L) 6.0 - 8.4 g/dL [facility] Albumin 3.1(L) 3.5 - 5.0 g/dL [facility] Calcium 8.3(L) 8.5 - 10.5 mg/dL [facility] Bilirubin, Total 1.3 0.0 - 1.5 mg/dL [facility] Alkaline Phosphatase 61 40 - 150 U/L [facility] AST 44(H) 7 - 40 U/L [facility] Glucose 134(H) 65 - 100 mg/dL [facility] BUN 30(H) 10 - 25 mg/dL [facility] Creatinine 1.28 0.70 - 1.40 mg/dL [facility] Sodium 140 135 - 146 mmol/L [facility] Potassium 3.6 3.5 - 5.0 mmol/L [facility] Chloride 101 98 - 110 mmol/L [facility] CO2 28 23 - 32 mmol/L [facility] Anion Gap 11 0 - 15 mmol/L [facility] ALT 30 5 - 50 U/L [facility] Blood specimen (specimen) BLOOD SPECIMEN / Unknown 12/03/2012 3:47 AM EDT 12/03/2012 3:48 AM EDT Gisele Arora MD LABORATORY Final Result [facility] [address] [place] [address] from Last 3 Months or Most Recently Relevant to Health Maintenance Insurance [employer] PPO Care Teams Metal Spray Operator Relationship Specialty Start Date End Date Sedrick Griffiths Sr., DO PCP - General Family Medicine 10/23/12
--- OUTSIDE RECORDS SUMMARY | 2025-01-26 02:19 | XMS_ITS | Clinical Summary ---
Author Organization [facility] Address [address] [place] [address] Phone Care Team Providers Care Stapler Coil Unit Name Role Phone Unavailable Primary Care Provider [...]
--- OUTSIDE RECORDS SUMMARY | 2025-01-26 02:19 | XMS_ITS | Encounter Summary ---
Author Organization [facility] [facility] tem Address [id number] [place] [address] Care Team Providers Care Customs Examiner Name Role Phone Desmond Muñoz MD Primary Care Provider [phone] Encounter Details Date Type Department Care Team (Late st Contact Info) Description 12/18/2024 Telephone [facility] [address] [place] [address] Tiara Lomax MD [address] [place] [address] Social History Tobacco Use Types [...] She stated Gerson was currently in a fdc and she would call the office back to schedule once he's been released. documented in this encounter Plan of Treatment Not on file documented as of this encounter Visit Diagnoses Not on filedocumented in this encounter Care Teams Customs Examiner Relationship Specialty Start Date End Date Desmond Muñoz MD [address] [facility] [place], [place] [address] PCP - General Family Medicine 12/22/24 documented as of this encounter
--- OUTSIDE RECORDS SUMMARY | 2025-01-26 02:19 | XMS_ITS | CCD ---
Author Organization [facility] Care Team Providers Care Equipment Records Supervisor Name Role Phone RASHAAD, DR WOODS Admitting Unavailable DAVIDY, DR WOODS Attending Unavailable DAVIDY, DR WOODS Primary Care Unavailable HOY, DR WOODS Admitting Unavailable HOY, DR WOODS Attending Unavailable DAVIDY, DR WOODS Primary Care Unavailable DAVIDY, DR WOODS Admitting Unavailable DAVIDY, DR WOODS Attending Unavailable HOY, DR WOODS Primary Care Unavailable DAVIDY, DR WOODS Consulting Unavailable Truman FUNES Attending Unavailable Nat MURRAY Attending Unavailable Nat MURRAY Attending Unavailable Truman FUNES Attending Unavailable Nat MURRAY Attending Unavailable Tuan Lira Attending Unavailable TREVORNat SPENCER Attending Unavailable Nat MURRAY Admitting Unavailable Peggy Muñoz MD Primary Care Provider [phone] Geoffrey Ibrahim DO Attending Provider Peggy Muñoz MD Primary Care Provider [phone] Geoffrey Ibrahim DO Attending Provider [phone] Leti Ren PA-C Attending Provider NON STAFF Primary Care Provider Unavailjeremiah Rodgers MD, Immatthew Attending Provider Peggy Muñoz MD Attending Provider TAJ OTERO Referring Unavailable JEB SANON Referring Unavailable JEB SANON Referring Unavailable JEB SANON Referring Unavailable TAJ OTERO Referring Unavailable TAJ OTERO Attending Unavailable TAJ OTERO Admitting Unavailable TAJ OTERO Attending Unavailable MARY LOMAX Attending Unavailable PEGGY MUÑOZ Primary Care Unavailable Peggy Muñoz MD Primary Care Provider [phone] Unallocated , Noms Provider Primary Care Provi theron CRISPIN EARLY Attending Unavailable Alexandria, Geoffrey A Admitting Unavailable NON STAFF Primary Care Unavailable Alexandria, Geoffrey A Attending Unavailable Davidy, Peggy M Primary Care Unavailable Alexandria, Geoffery A Admitting Unavailable Alexandria, Geoffrey A Attending Unavailable Alexandria, Geoffrey A Attending Unavailable Hoy, Peggy M Primary Care Unavailable Alexandria, Geoffrey A Admitting Unavailable Hoy, Peggy M Primary Care Unavailable Asaad, Imad Admitting Unavailable Asaad, Imad Attending Unavailable Alexandria, Geoffrey A Attending Unavailable Hoy, Peggy M Primary Care Unavailable Alexandria, Geoffrey A Admitting Unavailable Hoy, Peggy M Attending Unavailable Hoy, Peggy M Admitting Unavailable Hoy, Peggy M Attending Unavailable Hoy, Peggy M Admitting Unavailable NON STAFF Primary Care Unavailable Erin, Amrti M Admitting Unavailable Erin, Marti M Attending Unavailable Leti Ren Admitting Unavailable Leti Ren Attending Unavailable Asaad, Imad Admitting Unavailable Asaad, Imad Attending Unavailable Asaad, Imad Attending Unavailable Hoy, Peggy M Primary Care Unavailable Asaad, Imad Admitting Unavailable Medications Current Medications Medication Drug [...] 07-24-2019 take 1 tablet by rojas th three times daily Ferrous Sulfate 325 mg [...] 8:34am levothyroxine sodium 0.05 mg oral tablet (4 sources) l-Thyroxine Start: 12-07-2024 take 1 tablet by mouth in the morning levothyroxine (SYNTHROID, LEVOTHROID) 50 MCG tablet Take 1 tablet (50 mcg total) by mouth in the morning. 12/07/2024 Active liothyronine sodium 0.005 mg oral tablet (4 sources) l-Triiodothyronine Start: 12-15-2024 take 1 tablet [...] 12/28/2024 Active SITagliptin 100 mg oral tablet (3 sources) Dipeptidyl Peptidase 4 Inhibitor Start: 12-15-2024 [...] Start: 11-18-2024 take 2 tablets by mo [facility] twice daily Spironolactone 25 mg tablet Active [...] 10:15am Start: 06-09-2019 [facility] Spironolactone 25 mg Tablet [...] in toe; Translations: [Tinea unguium] 01-18-2025 Episodic Open wounds of extremities (1 source) Laceration without foreign body of left hand, initial encounter; Translations: [Laceration without foreign body of left hand, initial encounter] Onset: 01-12-2025 Episodic Other circulatory disease (4 sources) Presence [...] Test Name Value Interpretation Reference Range Facility ALL AMMONIAon 01-21-2025 Ammonia (P) [Moles/Vol] 36 umol/L High 11 - 32 umol/L [facility] Interpretation and review of laboratory results Abnormal [facility] Glucose Poct Glucometerson 0 01-19-2025 Glucose [Mass/Vol] 158 mg/dL Normal [facility] Comment on above: Result Comment: [facility] Glucose Reference Range is dependent on time and content of last meal. Glucose of more than 200 mg/dL in a nonstressed, ambulatory subject supports the diagnosis of Diabetes Mellitus. PERFORMED BY: [place] [address] PATHOLOGIST SERVICE OBSERVER RADHA PFEIFFER M.D. Performed By: #### M ITOM2, HBSAG, HCBIGM, HBCAB, HBSAB, DYLAN, SMAB, HAAB, HAABT, HCV RX PCR, AFPTM, CERULOP, ALPHA PHEN, L-K MICRO, IGG, HEMOCHROM #### [facility] , #### KYLE, CMP, PT, CBC #### [address] [place] 01-19-2025 L ------- Specimen: [id number] Received: 01/19/25 Status: ARYA Vargas Num: [id number] Spec Type: Surgical Subm Dr: Derrek Rodgers MD Tissues: A Gastric Biopsy (GASTRIC BX) B Colon Biopsy (CECAL POLYP) Procedures: , Gross/Micro L4/2 Age/ Patient Sex Location Account Attending Physician Gerson Penn/Christy [id number] Derrek Rodgers MD SPEC NUM: [id number] RECD: 01/19/25 STATUS: ARYA CLINTONKeke NUM: [id number] NAE: 01/19/[address] [facility] [address]: Derrek Rodgers MD ENTERED: 01/19/25-[address] [facility] [address]: SPEC TYPE: Surgical DEPT: S ENTERED BY: [id number] RECV BY: [id number] ORDERED: , Gross/Micro L4/2 ORDERED: , Gross/Micro L4/2 Pathological Diagnosis A. Stomach (mucosal biopsies): Reactive gastropathy No Helicobacter pylori organisms, intestinal metaplasia, or dysplasia seen B. Colon, cecal polyp (endoscopic polypectomy/biopsy): Minute fragments of tubular adenoma Clinical Information Unintentional weight loss, abdominal pain, history of varices, Part A rule out H. pylori Gross Description Part A is received in formalin labeled with the patients name, date of , and gastric BX is a cordero-mendoza, focally erythematous, friable, 0.2 cm in greatest dimension tissue bit with a 0.6 cm in greatest dimension tissue strip. The specimen is entirely submitted in a single cassette. (1, ns, [id number] A) Part B is received in formalin labeled with the patients name, date of , and cecal polyp is a cordero-mendoza, focally erythematous, friable, 0.4 cm in greatest dimension polypoid fragment. The specimen is entirely submitted in a single cassette. (1, ns, [id number] B) Specimen: [id number] Received: 01/19/25 Status: ARYA Alicia Num: [id number] Spec Type: Surgical Subm Dr: Derrek Rodgers MD Tissues: A Gastric Biopsy (GASTRIC BX) B Colon Biopsy (CECAL POLYP) Procedures: VIKI/Vivek, Gross/Micro L4/2 Patient: Gerson Penn [id number] (Continued) Specimen: [id number] Received: 01/19/25 (Continued) Signed (signature on file) Sedrick Jeffries Jr., MD 01/21/25 0911 Specimen: [id number] Received: 01/19/25 Status: ARYA Alicia Num: [id number] Spec Type: Surgical Subm Dr: Derrek Rodgers MD Tissues: A Gastric Biopsy (GASTRIC BX) B Colon Biopsy (CECAL POLYP) Procedures: VIKI/Vivek, Gross/Micro L4/2 Patient: Gerson Penn [id number] (Continued) Specimen: [id number] Received: 01/19/25 (Continued) CPT Codes 19476 x 2 Specimen: [id number] Received: 01/19/25 Status: ARYA Clintonkeke Num: [id number] Spec Type: Surgical Subm Dr: Derrek Rodgers MD Tissues: A Gastric Biopsy (GASTRIC BX) B Colon Biopsy (CECAL POLYP) Procedures: VIKI/Vivek, Gross/Micro L4/2 Patient: Gerson Penn [id number] (Continued) Signed (signature on file) Sedrick Jeffries Jr., MD 01/21/25 0911 Normal [facility] Urine Cultureon 01-08-2025 Bacteria identified Cx Nom (U) ORGANISM: Escherichia coli (O:ESCCOL) [place] Count 30,000 Aerobic LACEHLLE Charge (NMIC56) SUSCEPTIBILITY ORGANISM: O:ESCCOL ANTIBIOTIC INTERPRETATION [...] RESISTANT TO ALL B-LACTAM DRUGS. PERFORMED BY: [address] [address] PATHOLOGIST SERVICE OBSERVER RADHA PFEIFFER M.D. Normal [facility] Comment on above: Performed By: #### M ITOM2, HBSAG, HCBIGM, HBCAB, HBSAB, DYLAN, SMAB, HAAB, HAABT, HCV RX PCR, AFPTM, CERULOP, ALPHA PHEN, L-K MICRO, IGG, HEMOCHROM #### [facility] , #### KYLE, CMP, PT, CBC #### [facility] [address] [id number] [facility] CT abdomen wo/w conon 2024 CT abdomen wo/w con [facility] Main [place] [id number] Scan Report Signed Patient: Gerson Penn MR#: [id number] : 1955 Acct:[id number] Age/Sex: 68 / M ADM Date: 11/26/24 Loc: CT Room: Type: [facility] Attending Dr: Derrek Rodgers MD Copies [...] Jr., Claudia 11/26/2024 3:27 PM Dictation Location: [place] [address] Transcribed By: [facility] 11/26/24 1527 Dictated By: Gage Noland Jr, DO 11/26/24 1519 Signed By: 11/26/24 1527 Normal [facility] Urine Cultureon 11-18-2024 Bacteria identified Cx Nom (U) ORGANISM: Enterobacter cloacae complex (O:ENTCLOCPLX) [place] Count >100,000 Aerobic LACHELLE Charge (NMIC56) SUSCEPTIBILITY [...] RESISTANT TO ALL B-LACTAM DRUGS. PERFORMED BY: [place] [address] PATHOLOGIST SERVICE OBSERVER LEANDRA WALSH M.D. Normal [facility] Comment on above: Performed By: #### M ITOM2, HBSAG, HCBIGM, HBCAB, HBSAB, DYLAN, SMAB, HAAB, HAABT, HCV RX PCR, AFPTM, CERULOP, ALPHA PHEN, L-K MICRO, IGG, HEMOCHROM #### [facility] , #### KYLE, CMP, PT, CBC #### [facility] [address] [place] [address] Urine cultureOrdered By: Wilfrido Muñoz on 11-18-2024 Bacteria identified Cx Nom (U) Abnormal [facility] AFP Tumor Marker, Serumon AFP Tumor Marker, Serum 9.3 ng/mL High 0.0-8.4 [facility] Comment on above: Result Comment: [employer] Electrochemiluminescence Immunoassay (ECLIA) Values obtained with different assay methods or kits cannot be used interchangeably. Results cannot be interpreted as absolute evidence of the presence or absence of malignant disease. This test is not interpretable in females. Performed at: [address] [id number] [employer] Installer: Stewart Palmer PhD, Phone: [phone] Performed By: #### M ITOM2, HBSAG, HCBIGM, HBCAB, HBSAB, DYLAN, SMAB, HAAB, HAABT, HCV RX PCR, AFPTM, CERULOP, ALPHA PHEN, L-K MICRO, IGG, HEMOCHROM #### [facility] , #### KYLE, CMP, PT, CBC #### [facility] [address] [place] [address] DYLAN Antinuclear Antibodieson 11-05-2024 Antinuclear Abs, IFA Negative Normal . [facility] Comment on above: Result Comment: Nega tive <1:80 Borderline 1:80 Positive >1:80 ICAP nomenclature: AC-0 For more information about Hep-2 cell patterns use ANApatterjose.org, the official website for the International Consensus on Antinuclear Antibody (DYLAN) Patterns (ICAP). Performed at: - [facility] [address] [id number] [employer] Installer: Stewart Palmer PhD, Phone: [phone] Performed By: #### M ITOM2, HBSAG, HCBIGM, HBCAB, HBSAB, DYLAN, SMAB, HAAB, HAABT, HCV RX PCR, AFPTM, CERULOP, ALPHA PHEN, L-K MICRO, IGG, HEMOCHROM #### [facility] , #### KYLE, CMP, PT, CBC #### [address] Actin smooth muscle IgG Ab [ Units/volume] in SerumOrdered By: Derrek Rodgers on 11-05-2024 Actin smooth muscle IgG Qn (S) Actin smooth muscle IgG Ab [Units/volume] in Serum 0-19 [facility] Comment on above: Negative 0 - 19 Weak positive 20 - 30 Moderate to strong positive >30 Actin Antibodies are found in 52-85% of patients with autoimmune hepatitis or chronic active hepatitis and in 22% of patients with primary biliary cirrhosis. Alanine aminotransferase [En zymatic activity/volume] in Serum or PlasmaOrdered By: Derrek Rodgers on 11-05-2024 ALT [Catalytic activity/Vol] Alanine aminotransferase [Enzymatic activity/volume] in Serum or Plasma High 7-52 [facility] Albumin [Mass/volume] in Ser um or Plasma by Bromocresol green (BCG) dye binding methoOrdered By: Derrek Rodgers on 11-05-2024 Albumin BCG dye [Mass/Vol] Albumin [Mass/volume] in Serum or Plasma by Bromocresol green (BCG) dye binding metho Low 3.5-5.7 [facility] Alkaline phosphatase [Enzyma tic activity/volume] in Serum or PlasmaOrdered By: Derrek Rodgers on 11-05-2024 ALP [Catalytic activity/Vol] Alkaline phosphatase [Enzymatic activity/volume] in Serum or Plasma High 34-104 [facility] Ncaxw-1-Bjmqjadtcsk Phenotyp gonzales 11-05-2024 Alpha 1 Anti-Trypsin 104 mg/dL Normal 101-187 [facility] Comment on above: Performed By: #### M ITOM2, HBSAG, HCBIGM, HBCAB, HBSAB, DYLAN, SMAB, HAAB, HAABT, HCV RX PCR, AFPTM, CERULOP, ALPHA PHEN, L-K MICRO, IGG, HEMOCHROM #### [facility] , #### KYLE, CMP, PT, CBC #### [facility] [address] Phenotype (P1) MS Normal . [facility] Comment on above: Result Comment: MM Phenotype is considered to be normal , producing normal serum levels of dhwwu-0-lwhgyxin inhibitor and not associated with clinical disease. [...] used to confirm phenotype. Performed at: - [address] [id number] [employer] Installer: Stewart Palmer PhD, Phone: [phone] Performed at: [facility] [address] [id number] [employer] Installer: Beto Vincent MD, Phone: [phone] Performed By: #### M ITOM2, HBSAG, HCBIGM, HBCAB, HBSAB, DYLAN, SMAB, HAAB, HAABT, HCV RX PCR, AFPTM, CERULOP, ALPHA PHEN, L-K MICRO, IGG, HEMOCHROM #### [facility] , #### KYLE, CMP, PT, CBC #### [facility] [address] Aspartate aminotransferase [ Enzymatic activity/volume] in Serum or PlasmaOrdered By: Immatthew Rodgers on 11-05-2024 AST [Catalytic activity/Vol] Aspartate aminotransferase [Enzymatic activity/volume] in Serum or Plasma High 13-39 [facility] Basophils Auto (Bld) [#/Vol] Ordered By: Imad Asaad on 11-05-2024 Basophils (Bld) [#/Vol] Automated basophil count 0.0-0.2 [facility] Basophils/100 WBC Auto (Bld) Ordered By: Imad Asaad on 11-05-2024 Basophils/100 WBC (d) Automated basophil % . [facility] Bilirubin.total [Mass/volume ] in Serum or PlasmaOrdered By: Imad Asaad on 11-05-2024 Bilirubin [Mass/Vol] Bilirubin.total [Mass/volume] in Serum or Plasma High 0.3-1.0 [facility] Comment on above: Samples from patient s who have taken Naproxen have shown spurious elevation in Total Bilirubin levels. A metabolite of Naproxen, O-desmethylnaproxen, has been shown to interfere with the Jendrradhaik-Grosara method for measuring Total Bilirubin. Blood or tissue HFE gene mut ations identification by molecular genetics methodOrdered By: Derrek Rodgers on 11-05-2024 HFE gene targeted mutation analysis Molgen Nom (Bld/Tiss) Blood or tissue HFE gene mutations identification by molecular genetics method . [facility] Comment on above: Result:c.845G>A (p.C ys233Vpc) - Not Detectedc.187C>G (p.Gqb10Zyr) - Not Detectedc.193A>T (p.Xvo79Ier) - Not DetectedNot associated with increased risk [...] recommended for patientswho are homozygous for c.845G>A (p.Hay767Kyz) and have yetto experience clinical symptoms.Comments:The most common HFE variants associated with hereditaryhemochromatosis are c.845G>A (p.Lnk295Uve), c.187C>G(p.Nhd09Chk), c.193A>T (p.Hng97Fnt). While patientshomozygous for c.845G>A (p.Nnl980Hmo) are the most likelyto present clinical symptoms, less than 10% developclinically significant iron overload with tissue and organdamage.Genetic counseling is recommended to discuss the potentialclinical implications of positive results, as well asrecommendations for testing family members.Genetic Coordinators are available for health careproviders to discuss results at [phone]).Test Details:Three variants analyzed:c.845G>A (p.Rkf292Vkd), commonly referred to as C282Yc.187C>G (p.Eax48Vfn), commonly referred to as H63Dc.193A>T (p.Oct02Ure), commonly referred to as M81XYliatxp/Limitations:DNA Analysis of the HFE gene (NM_000410.4) was [...] was developed and its performancecharacteristics determined by [employer]. It has not beencleared or approved by the Food and Drug Administration.References:Rafa BR, Vel PC, Art KV, Wai LW, Nate ;[employer] Association for the Study of Liver Diseases.Diagnosis and management of hemochromatosis: 2011 practiceguideline by the [employer] Association for the Study ofLiver Diseases. Hepatology. 2010;54(1):328-43. doi:10.1002/hep.04481. PMID: 26429323; PMCID: RJI4653656.Nigel G, Clay P, Fatoumata DW, Mervat H, Juan O,Alex S, Raulito I, Marv M, Jimbo S. [facility] best practiceguidelines for the molecular genetic diagnosis ofhereditary hemochromatosis (HH). Eur J Hum Neelima. 2016Apr;24(4):479-95. doi: 10.1038/ejhg.2015.128. Epub 2014. PMID: 18674543; PMCID: XHC3464205. Calcium [Mass/volume] in Ser um or PlasmaOrdered By: Imad Ana Maria on 11-05-2024 Calcium [Mass/Vol] Calcium [Mass/volume ] in Serum or Plasma 8.6-10.3 [facility] Carbon dioxide, total [Moles /volume] in Serum or PlasmaOrdered By: Imad Asaad on 11-05-2024 CO2 [Moles/Vol] Carbon dioxide, tota l [Moles/volume] in Serum or Plasma 21.0-31.0 [facility] Ceruloplasminon 11-05-2024 Ceruloplasmin 19.1 mg/dL Normal 16.0-31.0 [facility] Comment on above: Result Comment: Perf ormed at: CB - [facility] [address] [id number] [employer] Installer: Stewart Palmer PhD, Phone: [phone] PERFORMED BY: [address] [place] [address] PATHOLOGIST SERVICE OBSERVER ELANDRA WALSH M.D. Performed By: #### M ITOM2, HBSAG, HCBIGM, HBCAB, HBSAB, DYLAN, SMAB, HAAB, HAABT, HCV RX PCR, AFPTM, CERULOP, ALPHA PHEN, L-K MICRO, IGG, HEMOCHROM #### [facility] , #### KYLE, CMP, PT, CBC #### [address] Chloride [Moles/volume] in S saud or PlasmaOrdered By: Derrek Rodgers on 11-05-2024 Chloride [Moles/Vol] Chloride [Moles/vol ume] in Serum or Plasma 98-107 [facility] Complete Blood Count Auto Di ffon 11-05-2024 Basophils (Bld) [#/Vol] 0.0 10*3/uL Normal 0.0-0.2 [facility] Comment on above: Result Comment: PERF ORMED BY: [place] [address] PATHOLOGIST SERVICE OBSERVER LEANDRA WALSH M.D. Performed By: #### M ITOM2, HBSAG, HCBIGM, HBCAB, HBSAB, DYLAN, SMAB, HAAB, HAABT, HCV RX PCR, AFPTM, CERULOP, ALPHA PHEN, L-K MICRO, IGG, HEMOCHROM #### [facility] , #### KYLE, CMP, PT, CBC #### [address] Basophils/100 WBC (Bld) 0.7 % Normal . [facility] Comment on above: Performed By: #### M ITOM2, HBSAG, HCBIGM, HBCAB, HBSAB, DYLAN, SMAB, HAAB, HAABT, HCV RX PCR, AFPTM, CERULOP, ALPHA PHEN, L-K MICRO, IGG, HEMOCHROM #### [facility] , #### KYLE, CMP, PT, CBC #### [address] Eosinophils (Bld) [#/Vol] 0.1 10*3/uL Normal 0.0-0.45 [facility] Comment on above: Performed By: #### M ITOM2, HBSAG, HCBIGM, HBCAB, HBSAB, DYLAN, SMAB, HAAB, HAABT, HCV RX PCR, AFPTM, CERULOP, ALPHA PHEN, L-K MICRO, IGG, HEMOCHROM #### [facility] , #### KYLE, CMP, PT, CBC #### [address] Eosinophils/100 WBC (Bld) 1.8 % Normal . [facility] Comment on above: Performed By: #### M ITOM2, HBSAG, HCBIGM, HBCAB, HBSAB, DYLAN, SMAB, HAAB, HAABT, HCV RX PCR, AFPTM, CERULOP, ALPHA PHEN, L-K MICRO, IGG, HEMOCHROM #### [facility] , #### KYLE, CMP, PT, CBC #### [address] Erythrocyte distribution width (RBC) [Ratio] 19.0 % High 12.0-14.8 [facility] Comment on above: Performed By: #### M ITOM2, HBSAG, HCBIGM, HBCAB, HBSAB, DYLAN, SMAB, HAAB, HAABT, HCV RX PCR, AFPTM, CERULOP, ALPHA PHEN, L-K MICRO, IGG, HEMOCHROM #### [facility] , #### KYLE, CMP, PT, CBC #### [address] Hematocrit (Bld) [Volume fraction] 37.3 % Low 38.8-50.0 [facility] Comment on above: Performed By: #### M ITOM2, HBSAG, HCBIGM, HBCAB, HBSAB, DYLAN, SMAB, HAAB, HAABT, HCV RX PCR, AFPTM, CERULOP, ALPHA PHEN, L-K MICRO, IGG, HEMOCHROM #### [facility] , #### KYLE, CMP, PT, CBC #### [address] Hemoglobin (Bld) [Mass/Vol] 12.7 g/dL Low 13.0-17.0 [facility] Comment on above: Performed By: #### M ITOM2, HBSAG, HCBIGM, HBCAB, HBSAB, DYLAN, SMAB, HAAB, HAABT, HCV RX PCR, AFPTM, CERULOP, ALPHA PHEN, L-K MICRO, IGG, HEMOCHROM #### [facility] , #### KYLE, CMP, PT, CBC #### [address] Lymphocytes (Bld) [#/Vol] 0.8 10*3/uL Low 1.00-4.8 [facility] Comment on above: Performed By: #### M ITOM2, HBSAG, HCBIGM, HBCAB, HBSAB, DYLAN, SMAB, HAAB, HAABT, HCV RX PCR, AFPTM, CERULOP, ALPHA PHEN, L-K MICRO, IGG, HEMOCHROM #### [facility] , #### KYLE, CMP, PT, CBC #### [address] Lymphocytes/100 WBC (Bld) 11.1 % Normal . [facility] Comment on above: Performed By: #### M ITOM2, HBSAG, HCBIGM, HBCAB, HBSAB, DYLAN, SMAB, HAAB, HAABT, HCV RX PCR, AFPTM, CERULOP, ALPHA PHEN, L-K MICRO, IGG, HEMOCHROM #### [facility] , #### KYLE, CMP, PT, CBC #### [address] MCH (RBC) [Entitic mass] 34.2 pg Normal 27.5-35.2 [facility] Comment on above: Performed By: #### M ITOM2, HBSAG, HCBIGM, HBCAB, HBSAB, DYLAN, SMAB, HAAB, HAABT, HCV RX PCR, AFPTM, CERULOP, ALPHA PHEN, L-K MICRO, IGG, HEMOCHROM #### [facility] , #### KYLE, CMP, PT, CBC #### [address] MCV (RBC) [Entitic vol] 100.9 fL Normal 83.5-101 [facility] Comment on above: Performed By: #### M ITOM2, HBSAG, HCBIGM, HBCAB, HBSAB, DYLAN, SMAB, HAAB, HAABT, HCV RX PCR, AFPTM, CERULOP, ALPHA PHEN, L-K MICRO, IGG, HEMOCHROM #### [facility] , #### KYLE, CMP, PT, CBC #### [address] Mean Corpuscular HGB Conc 33.9 g/dL Normal 32.5-35.6 [facility] Comment on above: Performed By: #### M ITOM2, HBSAG, HCBIGM, HBCAB, HBSAB, DYLAN, SMAB, HAAB, HAABT, HCV RX PCR, AFPTM, CERULOP, ALPHA PHEN, L-K MICRO, IGG, HEMOCHROM #### [facility] , #### KYLE, CMP, PT, CBC #### [address] Monocytes (Bld) [#/Vol] 0.5 10*3/uL Normal 0.0-0.8 [facility] Comment on above: Performed By: #### M ITOM2, HBSAG, HCBIGM, HBCAB, HBSAB, DYLAN, SMAB, HAAB, HAABT, HCV RX PCR, AFPTM, CERULOP, ALPHA PHEN, L-K MICRO, IGG, HEMOCHROM #### [facility] , #### KYLE, CMP, PT, CBC #### [address] Monocytes/100 WBC (Bld) 7.8 % Normal . [facility] Comment on above: Performed By: #### M ITOM2, HBSAG, HCBIGM, HBCAB, HBSAB, DYLAN, SMAB, HAAB, HAABT, HCV RX PCR, AFPTM, CERULOP, ALPHA PHEN, L-K MICRO, IGG, HEMOCHROM #### [facility] , #### KYLE, CMP, PT, CBC #### [address] Neutrophils (Bld) [#/Vol] 5.4 10*3/uL Normal 1.8-7.7 [facility] Comment on above: Performed By: #### M ITOM2, HBSAG, HCBIGM, HBCAB, HBSAB, DYLAN, SMAB, HAAB, HAABT, HCV RX PCR, AFPTM, CERULOP, ALPHA PHEN, L-K MICRO, IGG, HEMOCHROM #### [facility] , #### KYLE, CMP, PT, CBC #### [address] Neutrophils/100 WBC (Bld) 78.6 % Normal . [facility] [facility] Comment on above: Performed By: #### M ITOM2, HBSAG, HCBIGM, HBCAB, HBSAB, DYLAN, SMAB, HAAB, HAABT, HCV RX PCR, AFPTM, CERULOP, ALPHA PHEN, L-K MICRO, IGG, HEMOCHROM #### [facility] , #### KYLE, CMP, PT, CBC #### [address] NRBC% 0.1 /100{WBC} Normal 0-0.5 [facility], [facility] Comment on above: Performed By: #### M ITOM2, HBSAG, HCBIGM, HBCAB, HBSAB, DYLAN, SMAB, HAAB, HAABT, HCV RX PCR, AFPTM, CERULOP, ALPHA PHEN, L-K MICRO, IGG, HEMOCHROM #### [facility] , #### KYLE, CMP, PT, CBC #### [address] Platelet mean volume (Bld) [Entitic vol] 7.9 fL Normal 6.6-10.1 [facility] Comment on above: Performed By: #### M ITOM2, HBSAG, HCBIGM, HBCAB, HBSAB, DYLAN, SMAB, HAAB, HAABT, HCV RX PCR, AFPTM, CERULOP, ALPHA PHEN, L-K MICRO, IGG, HEMOCHROM #### [facility] , #### KYLE, CMP, PT, CBC #### [address] Platelets (Bld) [#/Vol] 172 10*3/uL Normal 150-450 [facility] Comment on above: Performed By: #### M ITOM2, HBSAG, HCBIGM, HBCAB, HBSAB, DYLAN, SMAB, HAAB, HAABT, HCV RX PCR, AFPTM, CERULOP, ALPHA PHEN, L-K MICRO, IGG, HEMOCHROM #### [facility] , #### KYLE, CMP, PT, CBC #### [address] RBC (Bld) [#/Vol] 3.70 10*6/uL Low 3.90-5.60 [facility] Comment on above: Performed By: #### M ITOM2, HBSAG, HCBIGM, HBCAB, HBSAB, DYLAN, SMAB, HAAB, HAABT, HCV RX PCR, AFPTM, CERULOP, ALPHA PHEN, L-K MICRO, IGG, HEMOCHROM #### [facility] , #### KYLE, CMP, PT, CBC #### [address] WBC (Bld) [#/Vol] 6.8 10*3/uL Normal 4.1-10.5 [facility] Comment on above: Performed By: #### M ITOM2, HBSAG, HCBIGM, HBCAB, HBSAB, DYLAN, SMAB, HAAB, HAABT, HCV RX PCR, AFPTM, CERULOP, ALPHA PHEN, L-K MICRO, IGG, HEMOCHROM #### [facility] , #### KYLE, CMP, PT, CBC #### [place] [address] [place] Comprehensive [facility]abolic Pane levy 11-05-2024 Albumin [Mass/Vol] 2.1 g/dL Low 3.5-5.7 [facility] Comment on above: Performed By: #### M ITOM2, HBSAG, HCBIGM, HBCAB, HBSAB, DYLAN, SMAB, HAAB, HAABT, HCV RX PCR, AFPTM, CERULOP, ALPHA PHEN, L-K MICRO, IGG, HEMOCHROM #### [facility] , #### KYLE, CMP, PT, CBC #### [facility] [address] Albumin/Globulin [Mass ratio] 0.6 {ratio} Normal [facility] Comment on above: Performed By: #### M ITOM2, HBSAG, HCBIGM, HBCAB, HBSAB, DYLAN, SMAB, HAAB, HAABT, HCV RX PCR, AFPTM, CERULOP, ALPHA PHEN, L-K MICRO, IGG, HEMOCHROM #### [facility] , #### KYLE, CMP, PT, CBC #### [address] ALP [Catalytic activity/Vol] 245 U/L High 34-104 [facility] Comment on above: Performed By: #### M ITOM2, HBSAG, HCBIGM, HBCAB, HBSAB, DYLAN, SMAB, HAAB, HAABT, HCV RX PCR, AFPTM, CERULOP, ALPHA PHEN, L-K MICRO, IGG, HEMOCHROM #### [facility] , #### KYLE, CMP, PT, CBC #### [facility] [address] ALT [Catalytic activity/Vol] 86 U/L High 7-52 [facility] Comment on above: Performed By: #### M ITOM2, HBSAG, HCBIGM, HBCAB, HBSAB, DYLAN, SMAB, HAAB, HAABT, HCV RX PCR, AFPTM, CERULOP, ALPHA PHEN, L-K MICRO, IGG, HEMOCHROM #### [facility] , #### KYLE, CMP, PT, CBC #### [address] Anion gap [Moles/Vol] 10.5 mmol/L Normal 6.0-15.0 [facility], [facility] Comment on above: Performed By: #### M ITOM2, HBSAG, HCBIGM, HBCAB, HBSAB, DYLAN, SMAB, HAAB, HAABT, HCV RX PCR, AFPTM, CERULOP, ALPHA PHEN, L-K MICRO, IGG, HEMOCHROM #### [facility] , #### KYLE, CMP, PT, CBC #### [address] AST [Catalytic activity/Vol] 77 U/L High 13-39 [facility] Comment on above: Performed By: #### M ITOM2, HBSAG, HCBIGM, HBCAB, HBSAB, DYLAN, SMAB, HAAB, HAABT, HCV RX PCR, AFPTM, CERULOP, ALPHA PHEN, L-K MICRO, IGG, HEMOCHROM #### [facility] , #### KYLE, CMP, PT, CBC #### [address] Bilirubin [Mass/Vol] 3.2 mg/dL High 0.3-1.0 [facility] Comment on above: Result [...] , #### KYLE, CMP, PT, CBC #### [address] Calcium [Mass/Vol] 8.9 mg/dL Normal 8.6-10.3 [facility] Comment on above: Performed By: #### M ITOM2, HBSAG, HCBIGM, HBCAB, HBSAB, DYLAN, SMAB, HAAB, HAABT, HCV RX PCR, AFPTM, CERULOP, ALPHA PHEN, L-K MICRO, IGG, HEMOCHROM #### [facility] , #### KYLE, CMP, PT, CBC #### [address] Chloride [Moles/Vol] 100 mmol/L Normal 98-107 [facility] Comment on above: Performed By: #### M ITOM2, HBSAG, HCBIGM, HBCAB, HBSAB, DYLAN, SMAB, HAAB, HAABT, HCV RX PCR, AFPTM, CERULOP, ALPHA PHEN, L-K MICRO, IGG, HEMOCHROM #### [facility] , #### KYLE, CMP, PT, CBC #### [address] CO2 [Moles/Vol] 28.4 mmol/L Normal 21.0-31.0 [facility] Comment on above: Performed By: #### M ITOM2, HBSAG, HCBIGM, HBCAB, HBSAB, DYLAN, SMAB, HAAB, HAABT, HCV RX PCR, AFPTM, CERULOP, ALPHA PHEN, L-K MICRO, IGG, HEMOCHROM #### [facility] , #### KYLE, CMP, PT, CBC #### [address] Creatinine [Mass/Vol] 1.18 mg/dL Normal 0.70-1.30 [facility] Comment on above: Performed By: #### M ITOM2, HBSAG, HCBIGM, HBCAB, HBSAB, DYLAN, SMAB, HAAB, HAABT, HCV RX PCR, AFPTM, CERULOP, ALPHA PHEN, L-K MICRO, IGG, HEMOCHROM #### [facility] , #### KYLE, CMP, PT, CBC #### [facility] [address] GFR/1.73 sq M.predicted MDRD (S/P/Bld) [Vol rate/Area] mL/min/{1.73_m2} Normal [facility] Comment on above: Performed By: #### M ITOM2, HBSAG, HCBIGM, HBCAB, HBSAB, DYLAN, SMAB, HAAB, HAABT, HCV RX PCR, AFPTM, CERULOP, ALPHA PHEN, L-K MICRO, IGG, HEMOCHROM #### [facility] , #### KYLE, CMP, PT, CBC #### [address] Globulin (S) [Mass/Vol] 3.3 g/dL Normal [facility] Comment on above: Performed By: #### M ITOM2, HBSAG, HCBIGM, HBCAB, HBSAB, DYLAN, SMAB, HAAB, HAABT, HCV RX PCR, AFPTM, CERULOP, ALPHA PHEN, L-K MICRO, IGG, HEMOCHROM #### [facility] , #### KYLE, CMP, PT, CBC #### [address] Glucose [Mass/Vol] 215 mg/dL High 70-100 [facility] Comment on above: Result Comment: [place] Glucose Reference Range is dependent on time [...] , #### KYLE, CMP, PT, CBC #### [address] Potassium [Moles/Vol] 4.9 mmol/L Normal 3.5-5.1 [facility] Comment on above: Performed By: #### M ITOM2, HBSAG, HCBIGM, HBCAB, HBSAB, DYLAN, SMAB, HAAB, HAABT, HCV RX PCR, AFPTM, CERULOP, ALPHA PHEN, L-K MICRO, IGG, HEMOCHROM #### [facility] , #### KYLE, CMP, PT, CBC #### [address] Protein [Mass/Vol] 5.4 g/dL Low 6.4-8.9 [facility] Comment on above: Performed By: #### M ITOM2, HBSAG, HCBIGM, HBCAB, HBSAB, DYLAN, SMAB, HAAB, HAABT, HCV RX PCR, AFPTM, CERULOP, ALPHA PHEN, L-K MICRO, IGG, HEMOCHROM #### [facility] , #### KYLE, CMP, PT, CBC #### [address] Sodium [Moles/Vol] 134 mmol/L Low 136-145 [facility] Comment on above: Performed By: #### M ITOM2, HBSAG, HCBIGM, HBCAB, HBSAB, DYLAN, SMAB, HAAB, HAABT, HCV RX PCR, AFPTM, CERULOP, ALPHA PHEN, L-K MICRO, IGG, HEMOCHROM #### [facility] , #### KYLE, CMP, PT, CBC #### [address] Urea nitrogen [Mass/Vol] 28 mg/dL High 7-25 [facility] Comment on above: Performed By: #### M ITOM2, HBSAG, HCBIGM, HBCAB, HBSAB, DYLAN, SMAB, HAAB, HAABT, HCV RX PCR, AFPTM, CERULOP, ALPHA PHEN, L-K MICRO, IGG, HEMOCHROM #### [facility] , #### KYLE, CMP, PT, CBC #### [address] Creatinine [Mass/volume] in Serum or PlasmaOrdered By: Imad Asaad on 11-05-2024 Creatinine [Mass/Vol] Creatinine [Mass/v olume] in Serum or Plasma 0.70-1.30 [facility] Eosinophils Auto (Bld) [#/Vo l]Ordered By: Imad Asaad on 11-05-2024 Eosinophils (Bld) [#/Vol] Automated eosinophil count 0.0-0.45 [facility] Eosinophils/100 WBC Auto (Bl d)Ordered By: Imad Asaad on 11-05-2024 Eosinophils/100 WBC (Bld) Automated eosinophil % . [facility] Erythrocyte distribution wid th Auto (RBC) [Ratio]Ordered By: Imad Asaad on 11-05-2024 Erythrocyte distribution width (RBC) [Ratio] Erythrocyte distribution width [Ratio] by Automated count High 12.0-14.8 [facility] Ferritinon 11-05-2024 Ferritin [Mass/Vol] 1486.4 ng/mL High 23.9-336.2 [facility] Comment on above: Result Comment: PERF ORMED BY: [facility] [address] [place] [address] PATHOLOGIST SERVICE OBSERVER LEANDRA WALSH M.D. Performed By: #### M ITOM2, HBSAG, HCBIGM, HBCAB, HBSAB, DYLAN, SMAB, HAAB, HAABT, HCV RX PCR, AFPTM, CERULOP, ALPHA PHEN, L-K MICRO, IGG, HEMOCHROM #### [facility] , #### KYLE, CMP, PT, CBC #### [facility] [address] Ferritin [Mass/volume] in Se rum or PlasmaOrdered By: Imad Asaad on 11-05-2024 Ferritin [Mass/Vol] Ferritin [Mass/volum e] in Serum or Plasma High 23.9-336.2 [facility] Globulin Calc (S) [Mass/Vol] Ordered By: Imad Asaad on 11-05-2024 Globulin (S) [Mass/Vol] Serum globulin measurement by calculation (mass/volume) [facility] Glucose [Mass/volume] in Ser um or PlasmaOrdered By: Derrek Rodgers on 11-05-2024 Glucose [Mass/Vol] Glucose [Mass/volume ] in Serum or Plasma High 70-100 [facility] Comment on above: ADA recommended refe rence rangeRandom Glucose Reference Range is dependent on time and content of last meal. Glucose of more than 200 mg/dL in a nonstressed, ambulatory subject supports the diagnosis of Diabetes Mellitus. Hematocrit Auto (Bld) [Volum e fraction]Ordered By: Derrek Rodgers on 11-05-2024 Hematocrit (Bld) [Volume fraction] Hematocrit [Volume Fraction] of Blood by Automated count Low 38.8-50.0 [facility] Hemoglobin [Mass/volume] in BloodOrdered By: matthew Rodgers on 11-05-2024 Hemoglobin (Bld) [Mass/Vol] Hemoglobin [Mass/volume] in Blood Low 13.0-17.0 [facility] Hep C Ab wRfx to Qnt PCRon 0 11-05-2024 Hepatitis C Virus Antibody Non-Reactive Normal Non Reactive [facility] Comment on above: Performed By: #### M ITOM2, HBSAG, HCBIGM, HBCAB, HBSAB, DYLAN, SMAB, HAAB, HAABT, HCV RX PCR, AFPTM, CERULOP, ALPHA PHEN, L-K MICRO, IGG, HEMOCHROM #### [facility] , #### KYLE, CMP, PT, CBC #### [facility] [address] Interpretation Hepatitis C Comment Normal . [facility] Comment on above: Result [...] KYLE, CMP, PT, CBC #### [facility] [address] Hepatitis A Antibody IgMon 0 11-05-2024 Hepatitis A Antibody IgM Negative Normal Negative [facility] Comment on above: Result Comment: A ne gative anti-HAV IgM result suggests no recent or current HAV infection. Performed By: #### M ITOM2, HBSAG, HCBIGM, HBCAB, HBSAB, DYLAN, SMAB, HAAB, HAABT, HCV RX PCR, AFPTM, CERULOP, ALPHA PHEN, L-K MICRO, IGG, HEMOCHROM #### [facility] , #### KYLE, CMP, PT, CBC #### [facility] [address] Hepatitis A Antibody Totalon 11-05-2024 Hepatitis A Antibody Total Negative Normal Negative [facility] Comment on above: Result [...] total antibody results to IgM (e.g., panel #[id number] HAV Antibody w/ Rfx). Performed By: #### M ITOM2, HBSAG, HCBIGM, HBCAB, HBSAB, DYLAN, SMAB, HAAB, HAABT, HCV RX PCR, AFPTM, CERULOP, ALPHA PHEN, L-K MICRO, IGG, HEMOCHROM #### [facility] , #### KYLE, CMP, PT, CBC #### [facility] [address] Hepatitis A virus Ab [Presen ce] in Serum by ImmunoassayOrdered By: Derrek Rodgers on 11-05-2024 HAV Ab IA Ql (S) Hepatitis A virus Ab [Presence] in Serum by Immunoassay Negative [facility] Comment on above: Comment: The HAV [...] HAVtotal antibody results to IgM (e.g., panel #[id number] HAVAntibody w/ Rfx). Hepatitis A virus IgM antibo dy assayOrdered By: Derrek Rodgers on 11-05-2024 Hepatitis A IgM Antibody Negative Negative [facility] Comment on above: A negative anti-HAV IgM result suggests no recent orcurrent HAV infection. Hepatitis B Core Antibodyon 11-05-2024 Hepatitis B Core Antibody Negative Normal Negative [facility] Comment on above: Performed By: #### M ITOM2, HBSAG, HCBIGM, HBCAB, HBSAB, DYLAN, SMAB, HAAB, HAABT, HCV RX PCR, AFPTM, CERULOP, ALPHA PHEN, L-K MICRO, IGG, HEMOCHROM #### [facility] , #### KYLE, CMP, PT, CBC #### [facility] [address] Hepatitis B Core Antibody Ig Mon 11-05-2024 Hepatitis B Core Antibody IgM Negative Normal Negative [facility] Comment on above: Result Comment: Perf ormed at: - [facility] [address] [id number] [employer] Installer: Stewart Palmer PhD, Phone: [phone] Performed By: #### M ITOM2, HBSAG, HCBIGM, HBCAB, HBSAB, DYLAN, SMAB, HAAB, HAABT, HCV RX PCR, AFPTM, CERULOP, ALPHA PHEN, L-K MICRO, IGG, HEMOCHROM #### [facility] , #### KYLE, CMP, PT, CBC #### [facility] [address] Hepatitis B Surface Antibody on 11-05-2024 Hepatitis B Surface Antibody Non-Reactive Normal . [facility] Comment on above: Result Comment: Non Reactive: Not immune to HBV infection. Equivocal: Unable to determine if anti-HBs is present at levels consistent with immunity. Reactive: Anti-HBs concentration detected at greater than 10 mIU/mL. Individual is considered to be immune to infection with HBV. Performed By: #### M ITOM2, HBSAG, HCBIGM, HBCAB, HBSAB, DYLAN, SMAB, HAAB, HAABT, HCV RX PCR, AFPTM, CERULOP, ALPHA PHEN, L-K MICRO, IGG, HEMOCHROM #### [facility] , #### KYLE, CMP, PT, CBC #### [facility] [address] [place] [address] Hepatitis B Surface Antigeno n 11-05-2024 HBsAg Screen Negative Normal Negative [facility] Comment on above: Result Comment: PERF ORMED BY: [place] [address] PATHOLOGIST SERVICE OBSERVER LEANDRA WALSH M.D. Performed By: #### M ITOM2, HBSAG, HCBIGM, HBCAB, HBSAB, DYLAN, SMAB, HAAB, HAABT, HCV RX PCR, AFPTM, CERULOP, ALPHA PHEN, L-K MICRO, IGG, HEMOCHROM #### [facility] , #### KYLE, CMP, PT, CBC #### [facility] [address] [place] [address] Hepatitis B virus core IgM a ntibody assayOrdered By: Derrek Rodgers on 11-05-2024 Hepatitis B Core IgM Antibody Negative Negative [facility] Comment on above: Performed at: [place] [id number] Director: Stewart Palmer PhD, Phone: [phone] Hepatitis B virus core antib sarai assayOrdered By: Derrek Rodgers on 11-05-2024 Hepatitis B Core Total Antibody Negative Negative [facility] Hepatitis C virus IgG Ab [Pr esence] in Serum or Plasma by ImmunoassayOrdered By: Derrek Rodgers on 11-05-2024 HCV IgG IA Ql Hepatitis C virus Ig G Ab [Presence] in Serum or Plasma by Immunoassay Non Reactive [facility] Hereditary Hemochromatosis,D NAon 11-05-2024 Hereditary Hemochromatosis Comment Normal . [facility] Comment on above: Result Comment: Resu lt: c.845G>A (p.Pjt613Ijp) - Not Detected c.187C>G (p.Tyt27Cly) - Not Detected c.193A>T (p.Idd36Nhr) - Not Detected Not associated with increased [...] for patients who are homozygous for c.845G>A (p.Nvj871Kwt) and have yet to experience clinical symptoms. Comments: The most common HFE variants associated with hereditary hemochromatosis are c.845G>A (p.Qur962Nuu), c.187C>G (p.Ugv97Gow), c.193A>T (p.Gbo61Kiw). While patients homozygous for c.845G>A (p.Grp287Mmx) are the most likely to present clinical symptoms, less than 10% develop clinically significant iron overload with tissue and organ damage. Genetic counseling is recommended to discuss the potential clinical implications of positive results, as well as recommendations for testing family members. Genetic Coordinators are available for health care providers to discuss results at [phone] Test Details: Three variants analyzed: c.845G>A (p.Cjz960Vtj), commonly referred to as C282Y c.187C>G (p.Mff48Lfe), commonly referred to as H63D c.193A>T (p.Jll77Tmq), commonly referred to as S65C Methods/Limitations: DNA [...] developed and its performance characteristics determined by [employer]. It has not been cleared or approved by the Food and Drug Administration. References: Rafa BR, Vel PC, Art KV, Wai LW, Nate ; [employer] [employer] for the [employer] of Liver Diseases. Diagnosis and management of hemochromatosis: 2011 practice guideline by the [employer] [employer] the [employer] of Liver Diseases. Hepatology. 2011 Jan;54(1):328-43. doi: 10.1002/hep.83730. PMID: 15220398; PMCID: VNC9933742. Nigel G, Clay P, Fatoumata DW, Mervat H, Juan O, Alex S, Raulito I, Marv M, Jimbo S. EMQN best practice guidelines for the molecular genetic diagnosis of hereditary hemochromatosis (HH). Eur J Hum [place]. 2016 Oct;24(4):479-95. doi: 10.1038/ejhg.2015.128. Epub 2014Feb 02. PMID: 16563417; PMCID: [id number]. Performed By: #### M ITOM2, HBSAG, HCBIGM, HBCAB, HBSAB, DYLAN, SMAB, HAAB, HAABT, HCV RX PCR, AFPTM, CERULOP, ALPHA PHEN, L-K MICRO, IGG, HEMOCHROM #### [facility] , #### KYLE, CMP, PT, CBC #### [address] Reviewed by: Comment Normal . [facility] Comment on above: Result Comment: Tech [facility] at [facility] Professional Component performed by: Richa Cuba, Ph.D., [facility]ITALMG Director, Molecular Genetics [address] [place] [address] [place] [address] Performed at: - [facility] [address] [facility], [facility], [place] [id number] [employer] Installer: D[facility], Phone: [phone] PERFORMED BY: [place] [address] PATHOLOGIST SERVICE OBSERVER LEANDRA WALSH M.D. Performed By: #### M ITOM2, HBSAG, HCBIGM, HBCAB, HBSAB, DYLAN, SMAB, HAAB, HAABT, HCV RX PCR, AFPTM, CERULOP, ALPHA PHEN, L-K MICRO, IGG, HEMOCHROM #### [facility] , #### KYLE, CMP, PT, CBC #### [facility] [address] INR in Platelet poor plasma by Coagulation assayOrdered By: Imad Asaad on 11-05-2024 INR Coag (PPP) [Relative time] INR in Platelet poor plasma by Coagulation assay [facility] Comment on above: INR Therapeutic Rang [...] Immunoglobulin G 1263 mg/dL Normal 603-1613 [facility] Comment on above: Result Comment: Perf ormed at: - [facility] [address] [id number] [employer] Installer: Stewart Palmer PhD, Phone: [phone] Performed By: #### M ITOM2, HBSAG, HCBIGM, HBCAB, HBSAB, DYLAN, SMAB, HAAB, HAABT, HCV RX PCR, AFPTM, CERULOP, ALPHA PHEN, L-K MICRO, IGG, HEMOCHROM #### [facility] , #### KYLE, CMP, PT, CBC #### [facility] [address] Leukocytes [#/volume] correc adrián for nucleated erythrocytes in Blood by Automated counOrdered By: Imad Asaad on 11-05-2024 WBC corrected for nucl RBC Auto (Bld) [#/Vol] Leukocytes [#/volume] corrected for nucleated erythrocytes in Blood by Automated coun 4.1-10.5 [facility] Liver-Kidney Microsomal Abon 11-05-2024 Liver-Kidney Microsomal Ab <1.0 Normal 0.0-20.0 [facility] Comment on above: Result Comment: Nega tive 0.0 - 20.0 Equivocal 20.1 - 24.9 Positive >24.9 LKM type 1 antibodies are detected in patients with autoimmune hepatitis type 2 and in up to 8% of patients with chronic HCV infection. Performed at: - [facility] [id number] [employer] Installer: Stewart Palmer PhD, Phone: [phone] Performed By: #### M ITOM2, HBSAG, HCBIGM, HBCAB, HBSAB, DYLAN, SMAB, HAAB, HAABT, HCV RX PCR, AFPTM, CERULOP, ALPHA PHEN, L-K MICRO, IGG, HEMOCHROM #### [facility] , #### KYLE, CMP, PT, CBC #### [address] Lymphocytes Auto (Bld) [#/Vo l]Ordered By: ad Asaad on 11-05-2024 Lymphocytes (Bld) [#/Vol] Lymphocytes [#/volume] in Blood by Automated count Low 1.00-4.8 [facility] Lymphocytes/100 WBC Auto (Bl d)Ordered By: ad Asaad on 11-05-2024 Lymphocytes/100 WBC (Bld) Lymphocytes/100 leukocytes in Blood by Automated count . [facility] MCH Auto (RBC) [Entitic mass ]Ordered By: Imad Asaad on 11-05-2024 MCH (RBC) [Entitic mass] MCH [Entitic mass] by Automated count 27.5-35.2 [facility] MCHC Auto (RBC) [Mass/Vol]Or dered By: ad Asaad on 11-05-2024 MCHC (RBC) [Mass/Vol] MCHC [Mass/volume] by Automated count 32.5-35.6 [facility] MCV Auto (RBC) [Entitic vol] Ordered By: Imad Asaad on 11-05-2024 MCV (RBC) [Entitic vol] MCV [Entitic volume] by Automated count 83.5-101 [facility] Mitochondrial (M2) Antibodyo n 11-05-2024 Mitochondrial (M2) Antibody <20.0 Normal 0.0-20.0 [facility] Comment on above: Result Comment: Nega tive 0.0 - 20.0 Equivocal 20.1 - 24.9 Positive >24.9 Mitochondrial (M2) Antibodies are found in 90-96% of patients with primary biliary cirrhosis. Performed By: #### M ITOM2, HBSAG, HCBIGM, HBCAB, HBSAB, DYLAN, SMAB, HAAB, HAABT, HCV RX PCR, AFPTM, CERULOP, ALPHA PHEN, L-K MICRO, IGG, HEMOCHROM #### [facility] , #### KYLE, CMP, PT, CBC #### [address] Monocytes Auto (Bld) [#/Vol] Ordered By: Imad Asaad on 11-05-2024 Monocytes (Bld) [#/Vol] Automated blood monocyte count 0.0-0.8 [facility] Monocytes/100 WBC Auto (Bld) Ordered By: Imad Asaad on 11-05-2024 Monocytes/100 WBC (Bld) Automated monocyte % . [facility] Neutrophils Auto (Bld) [#/Vo l]Ordered By: Imad Asaad on 11-05-2024 Neutrophils (Bld) [#/Vol] Neutrophils [#/volume] in Blood by Automated count 1.8-7.7 [facility] Neutrophils/100 WBC Auto (Bl d)Ordered By: Imad Asaad on 11-05-2024 Neutrophils/100 WBC (Bld) Automated neutrophil % . [facility] No Panel InformationOrdered By: Imad Asaad on 11-05-2024 Estimated GFR (CKD-EPI) > 60.0 mL/Min [facility] Hemochromatosis Note Comment . [facility] Comment on above: Technical Component performed at [facility] RTPProfessional Component performed by:Richa Cuba, Ph.D., FACMGDirector, Molecular Ww[address] [place] [address] [place] [address]Foarfyzfr at: [facility] [id number] [facility], [place], [place] [id number] Director: D[facility], Phone: [phone] Hepatitis C Interpretation Comment . [facility] Comment on above: Not infected with HC V unless early or acute infection issuspected (which may be delayed in an immunocompromisedindividual), or other evidence exists to indicate HCVinfection. Pharmacy Creatinine Clearance (Chem N/A [facility] [facility] Nucleated erythrocytes [Pres ence] in Blood by Automated countOrdered By: Imad Asaad on 11-05-2024 Nucleated RBC Auto Ql (Bld) Nucleated erythrocytes [Presence] in Blood by Automated count 0-0.5 [facility] Platelet mean volume Auto (B ld) [Entitic vol]Ordered By: Imad Asaad on 11-05-2024 Platelet mean volume (Bld) [Entitic vol] Platelet mean volume [Entitic volume] in Blood by Automated count 6.6-10.1 [facility] Platelets Auto (Bld) [#/Vol] Ordered By: Imad Asaad on 11-05-2024 Platelets (Bld) [#/Vol] Platelets [#/volume] in Blood by Automated count 150-450 [facility] Potassium [Moles/volume] in Serum or PlasmaOrdered By: Imad Asaad on 11-05-2024 Potassium [Moles/Vol] Potassium [Moles/v olume] in Serum or Plasma 3.5-5.1 [facility] Protein [Mass/volume] in Ser um or PlasmaOrdered By: Imad Asaad on 11-05-2024 Protein [Mass/Vol] Protein [Mass/volume ] in Serum or Plasma Low 6.4-8.9 [facility] Prothrombin Time INRon 11-05 INR Coag (PPP) [Relative time] 1.2 {INR} Normal [facility] Comment on above: Result [...] heart valves: 3 - 4.5 PERFORMED BY: [place] [address] PATHOLOGIST SERVICE OBSERVER LEANDRA WALSH M.D. Performed By: #### M ITOM2, HBSAG, HCBIGM, HBCAB, HBSAB, DYLAN, SMAB, HAAB, HAABT, HCV RX PCR, AFPTM, CERULOP, ALPHA PHEN, L-K MICRO, IGG, HEMOCHROM #### [facility] , #### KYLE, CMP, PT, CBC #### [facility] [address] [place], [place] [id number] [facility] PT Coag (PPP) [Time] 13.4 s High 9.0-12.9 [facility] Comment on above: Result Comment: A he matocrit value greater than 55% may lead to inaccurate results in coagulation testing. Patients having hematocrit values >55% require a special collection tube for coagulation studies. Please contact the laboratory at [phone] for redraw instructions. Performed By: #### M ITOM2, HBSAG, HCBIGM, HBCAB, HBSAB, DYLAN, SMAB, HAAB, HAABT, HCV RX PCR, AFPTM, CERULOP, ALPHA PHEN, L-K MICRO, IGG, HEMOCHROM #### [facility] , #### KYLE, CMP, PT, CBC #### [place] [id number] [facility] Prothrombin time (PT)Ordered By: Derrek Rdogers on 11-05-2024 PT Coag (PPP) [Time] Prothrombin time (PT) High 9.0- 12.9 [facility] Comment on above: A hematocrit value g reater than 55% may lead to inaccurate results in coagulation testing. Patients having hematocrit values >55% require a special collection tube for coagulation studies. Please contact the laboratory at [phone] for redraw instructions. RBC Auto (Bld) [#/Vol]Ordere d By: Imad Geronimoad on 11-05-2024 RBC (Bld) [#/Vol] Erythrocytes [#/volu me] in Blood by Automated count Low 3.90-5.60 [facility] Serum hepatitis B virus surf jaimie antibody detectionOrdered By: Derrek Rodgers on 11-05-2024 HBV surface Ab Ql (S) Hepatitis B virus surface Ab [Presence] in Serum . [facility] Comment on above: Non Reactive: Not [...] Serum homogeneous pattern antinuclear antibody (DYLAN) titer [facility] Serum mitochondria M2 IgG an tibody assay (units/volume)Ordered By: Derrek Rodgers on 11-05-2024 Mitochondria M2 IgG Qn (S) Serum mitochondria M2 IgG antibody assay (units/volume) 0.0-20.0 [facility] Comment on above: Negative 0.0 - 20.0 Equivocal 20.1 - 24.9 Positive >24.9Mitochondrial (M2) Antibodies are found in 90-96% ofpatients with primary biliary cirrhosis. Serum nuclear antibody titer Ordered By: Derrek Rodgers on 11-05-2024 Nuclear Ab (S) [Titer] Serum nuclear ant ibody titer . [facility] Comment on above: Negative <1:80 Borde rline 1:80 Positive >1:80ICAP nomenclature: AC-0For more information about Hep-2 cell patterns useANApatterns.org, the official website for theInternational Consensus on Antinuclear Antibody (DYLAN)Patterns (ICAP).Performed at: [facility] [address] [id number] Director: Stewart Palmer PhD, Phone: [phone] Serum or plasma IgG measurem ent (mass/volume)Ordered By: Derrek Rodgers on 11-05-2024 IgG [Mass/Vol] IgG [Mass/volume] in Serum or Plasma [phone] [facility] Comment on above: Performed at: [facility] [address] [id number] Director: Stewart Palmer PhD, Phone: [phone] Serum or plasma albumin/glob ulin mass ratioOrdered By: Derrek Rodgers on 11-05-2024 Albumin/Globulin [Mass ratio] Serum or plasma albumin/globulin mass ratio [facility] Serum or plasma alpha 1 anti trypsin measurement (mass/volume)Ordered By: Derrek Rodgers on 11-05-2024 Alpha 1 antitrypsin [Mass/Vol] Serum wpobs-1-mazexarexkc measurement 101-187 [facility] Serum or plasma alpha 1 anti trypsin phenotyping identification by immunofixationOrdered By: Derrek Rodgers on 11-05-2024 Alpha 1 antitrypsin phenotyping Immunofixation Nom Serum or plasma alpha 1 antitrypsin phenotyping identification by immunofixation . [facility] Comment on above: MM Phenotype is co nsidered to be normal , producingnormal serum levels of iljcu-6-awqphmkd inhibitor andnot associated with clinical disease. Associated M9Uwysmx serum levels in other phenotypes and theirincidence [...] reference. Ranges used to confirm phenotype.Performed at: [address] [id number] Director: Stewart Palmer PhD, Phone: [phone] at: [facility] [id number] Director: Beto Vincent MD, Phone: [phone] Serum or plasma wvxkv-2-yrzw protein tumor marker measurement (mass/volume)Ordered By: Derrek Rodgers on 11-05-2024 AFP.tumor marker [Mass/Vol] Serum or plasma sawec-9-hutasxrxooq tumor marker measurement (mass/volume) High 0.0-8.4 [facility] Comment on above: [facility] El ectrochemiluminescence Immunoassay(ECLIA)Values obtained with different assay methods or kits cannotbe used interchangeably. Results cannot be interpreted asabsolute evidence of the presence or absence of malignantdisease.This test is not interpretable in females.Performed at: [facility] [id number] Director: Stewart Palmer PhD, Phone: [phone] Serum or plasma anion gap de terminationOrdered By: Derrek Rodgers on 11-05-2024 Anion gap [Moles/Vol] Serum or plasma an ion gap determination 6.0-15.0 [facility] Serum or plasma ceruloplasmi n measurement (mass/volume)Ordered By: Derrek Rodgers on 11-05-2024 Ceruloplasmin [Mass/Vol] Serum or plasma ceruloplasmin measurement (mass/volume) 16.0-31.0 [facility] Comment on above: Performed at: [address] [id number] Director: Stewart Palmer PhD, Phone: [phone] Serum or plasma hepatitis B virus surface antigen detection by immunoassayOrdered By: Derrek Rodgers on 11-05-2024 HBV surface Ag IA Ql Hepatitis B virus s urface Ag [Presence] in Serum or Plasma by Immunoassay Negative [facility] Serum or plasma lipoprotein a measurement (moles/volume)Ordered By: Derrek Rodgers on 11-05-2024 Lipoprotein a [Moles/Vol] Serum or plasma lipoprotein a measurement (moles/volume) 0.0-20.0 [facility] Comment on above: Negative 0.0 - 20.0 Equivocal 20.1 - 24.9 Positive >24.9LKM type 1 antibodies are detected in patients withautoimmune hepatitis type 2 and in up to 8% ofpatients with chronic HCV infection.Performed at: [facility] [place] [id number] Director: Stewart Palmer PhD, Phone: [phone] Smooth Muscle Antibodyon Smooth Muscle Antibody 4 Normal 0-19 [facility] Comment on above: Result Comment: Nega tive 0 - 19 Weak positive 20 - 30 Moderate to strong positive >30 Actin Antibodies are found in 52-85% of patients with autoimmune hepatitis or chronic active hepatitis and in 22% of patients with primary biliary cirrhosis. Performed By: #### M ITOM2, HBSAG, HCBIGM, HBCAB, HBSAB, DYLAN, SMAB, HAAB, HAABT, HCV RX PCR, AFPTM, CERULOP, ALPHA PHEN, L-K MICRO, IGG, HEMOCHROM #### [facility] , #### KYLE, CMP, PT, CBC #### [facility] [address] Sodium [Moles/volume] in Ser um or PlasmaOrdered By: Imad Asaad on 11-05-2024 Sodium [Moles/Vol] Sodium [Moles/volume ] in Serum or Plasma Low 136-145 [facility] Urea nitrogen [Mass/volume] in Serum or PlasmaOrdered By: Imad Asaad on 11-05-2024 Urea nitrogen [Mass/Vol] Urea nitrogen [Mass/volume] in Serum or Plasma High 7-25 [facility] WBC Auto (Bld) [#/Vol]Ordere d By: Imad Asaad on 11-05-2024 WBC (Bld) [#/Vol] Leukocytes [#/volume ] in Blood by Automated count 4.1-10.5 [facility] X-ray reportOrdered By: Wally Noland on 11-02-2024 Study report [facility] [address] [place] [address] XRay Report Signed Patient: Gerson Penn MR#: [id number] : 1955 Acct:[id number] Age/Sex: 68 / M ADM Date: 5 [place] [facility] [place]: Type: [facility] Attending Dr: Geoffrey Ibrahim DO Copies [...] 2:57 PM Dictation Location: RADIO-PC-23 Transcribed By: GODFREY 11/02/24 1457 Dictated By: Gage Noland Jr, DO 11/02/24 1456 Signed By: 11/02/24 1457 [facility] XR elbow LT 2Von 11-02-2024 XR elbow LT 2V [facility] [address] [place] [address] XRay Report Signed Patient: Gerson Penn MR#: [id number] : 1955 Acct:[id number] Age/Sex: 68 / M ADM Date: 11/02/24 [place] [facility] [place]: Type: [facility] Attending Dr: Geoffrey Ibrahim DO Copies [...] COMPLICATION. Impression dictated by: Gage Noland Jr. D.O.11/02/2024 2:57 PM Dictation Location: RADIO-PC-23 Transcribed By: GODFREY 11/02/24 1457 Dictated By: Gage Noland Jr 11/02/24 1456 Signed By: 11/02/24 1458 Normal [facility] Urine Cultureon 10-20-2024 Bacteria identified Cx Nom (U) ORGANISM: Enterobacter cloacae complex (O:ENTCLOCPLX) [place] Count >100,000 Aerobic LACHELLE Charge (NMIC56) SUSCEPTIBILITY [...] RESISTANT TO ALL B-LACTAM DRUGS. PERFORMED BY: [place] [address] PATHOLOGIST SERVICE OBSERVER LEANDRA WALSH M.D. Normal [facility] Comment on above: Performed By: #### C UU #### [address] Urine cultureOrdered By: Marisol Ren on 10-20-2024 Bacteria identified Cx Nom (U) Abnormal [facility] X-ray reportOrdered By: Steven Rock on 10-07-2024 Study report [facility] [address] [place] [address] XRay Report Signed Patient: Gerson Penn MR#: [id number] : 1955 Acct:[id number] Age/Sex: 68 / M ADM Date: 5 [place] [facility] [place]: Type: REG CLI Attending Dr: Geoffrey [...] Lamont Rock M.D.10/07/2024 2:30 PM Dictation Location: [place] [address] Transcribed By: [facility] 10/07/24 1430 Dictated By: Lamont Rock MD 10/07/24 1429 Signed By: 10/07/24 1430 [facility] Work Phone: XR elbow LT 2Von 10-07-2024 XR elbow LT 2V [facility] [address] [place] [address] XRay Report Signed Patient: Gerson Penn MR#: [id number] : 1955 Acct:[id number] Age/Sex: 68 / M ADM Date: 10/07/24 [place] [facility] [place]: Type: REG CLI Attending Dr: Geoffrey [...] Lamont Rock M.D.10/07/2024 2:30 PM Dictation Location: [facility]--23 Transcribed By: GODFREY 10/07/24 1430 Dictated By: Lamont Rock MD 10/07/24 1429 Signed By: 10/07/24 1430 Normal [facility] Glucose Glucometer (BldC) [M ass/Vol]Ordered By: Geoffrey Ibrahim on 09-22-2024 Glucose [Mass/Vol] Capillary blood gluc ose measurement by glucometer (mass/volume) [facility] Comment on above: Random Glucose Refer ence Range is dependent on time and content of last meal. Glucose of more than 200 mg/dL in a nonstressed, ambulatory subject supports the diagnosis of Diabetes Mellitus. Glucose Poct Glucometerson 0 09-22-2024 Commemt1 Glu2: Cleaned Meter Normal [facility] Comment on above: Result Comment: PERF ORMED BY: [place] [address] PATHOLOGIST SERVICE OBSERVER LEANDRA WALSH M.D. Performed By: #### M ITOM2, HBSAG, HCBIGM, HBCAB, HBSAB, DYLAN, SMAB, HAAB, HAABT, HCV RX PCR, AFPTM, CERULOP, ALPHA PHEN, L-K MICRO, IGG, HEMOCHROM #### [facility] , #### KYLE, CMP, PT, CBC #### [facility] [address] [place] [address] Glucose [Mass/Vol] 115 mg/dL Normal [facility] Comment on above: Result Comment: [place] om Glucose Reference Range is dependent on time and content of last meal. Glucose of more than 200 mg/dL in a nonstressed, ambulatory subject supports the diagnosis of Diabetes Mellitus. Performed By: #### M ITOM2, HBSAG, HCBIGM, HBCAB, HBSAB, DYLAN, SMAB, HAAB, HAABT, HCV RX PCR, AFPTM, CERULOP, ALPHA PHEN, L-K MICRO, IGG, HEMOCHROM #### [facility] , #### KYLE, CMP, PT, CBC #### [address] Glucose [Mass/Vol] 126 mg/dL Normal [facility] Comment on above: Result Comment: [facility] Glucose Reference Range is dependent on time and content of last meal. Glucose of more than 200 mg/dL in a nonstressed, ambulatory subject supports the diagnosis of Diabetes Mellitus. PERFORMED BY: [place] [address] PATHOLOGIST SERVICE OBSERVER LEANDRA WALSH M.D. Performed By: #### M ITOM2, HBSAG, HCBIGM, HBCAB, HBSAB, DYLAN, SMAB, HAAB, HAABT, HCV RX PCR, AFPTM, CERULOP, ALPHA PHEN, L-K MICRO, IGG, HEMOCHROM #### [facility] , #### KYLE, CMP, PT, CBC #### [facility] [address] [place] [address] Levy 09-22-2024 L ------- Specimen: [id number] Received: 09/22/24 Status: ARYA Vargas Num: [id number] Spec Type: Surgical Subm Dr: Geoffrey Ibrahim, DO Tissues: A Joint/Knee (LEFT ARM BONE AND TISSUE) Procedures: HE/2, Gross/Micro L4, Decalcification Age/ Patient Sex Location Account Attending Physician Gerson Penn 68/M [place] [id number] Geoffrey Ibrahim DO SPEC NUM: [id number] RECD: 09/22/24 STATUS: ARYA VARGAS NUM: [id number] NAE: 09/22/241449 [facility] DR: Geoffrey Ibrahim DO ENTERED: 09/22/[address] [facility] [address]: ROSAS TYPE: Surgical DEPT: S ORDERED: [...] medullary bone is cordero, firm and uniform. [employer] sections are submitted in A1?A2 after decalcification in rapid Nicolas immuno. (2, , [id number] A)JACK Specimen: [id number] Received: 09/22/24 Status: ARYA Vargas Num: [id number] Spec Type: Surgical Subm Dr: Geoffrey Ibrahim, DO Tissues: A Joint/Knee (LEFT ARM BONE AND TISSUE) Procedures: HE/2, Gross/Micro L4, Decalcification Patient: Gerson Penn [id number] (Continued) Specimen: [id number] Received: 09/22/24 (Continued) Signed (signature on file) Lino Coffman MD 09/25/24 1821 Specimen: [id number] Received: 09/22/24 Status: ARYA Vargas Num: [id number] Spec Type: Surgical Subm Dr: Geoffrey Ibrahim DO Tissues: A Joint/Knee (LEFT ARM BONE AND TISSUE) Procedures: HE/2, Gross/Micro L4, Decalcification Patient: Gerson Penn [id number] (Continued) Specimen: [id number] Received: 09/22/24 (Continued) Microscopic Description Microscopic examinations are performed supporting the above interpretation CPT Codes 42196 [id number] Specimen: [id number] Received: 09/22/24 Status: ARYA Vargas Num: [id number] Spec Type: Surgical Subm Dr: Geoffrey Ibrahim DO Tissues: A Joint/Knee (LEFT ARM BONE AND TISSUE) Procedures: HE/2, Gross/Micro L4, Decalcification Patient: Gerson Penn [id number] (Continued) Signed (signature on file) Lino Coffman MD 09/25/24 699 Normal [facility] No Panel InformationOrdered By: Geoffrey Ibrahim on 09-22-2024 Bedside Glucose Comment Glu2: cleaned meter [facility] XR elbow LT min 3V*on 2024 XR elbow LT min 3V* [address] [address] XRay Report Signed Patient: Gerson Penn MR#: [id number] : 1955 Acct:[id number] Age/Sex: 68 / M ADM Date: 09/22/24 Loc: [place] Room: Type: [facility] Attending Dr: Geoffrey Ibrahim DO Copies to: [...] Clark Méndez M.D.09/22/2024 5:18 PM Dictation Location: [place] [address] Transcribed By: [facility] 09/22/241717 Dictated By: Clark Méndez II, MD 09/22/241716 Signed By: 09/22/241717 Normal [facility] Alanine aminotransferase [En zymatic activity/volume] in Serum or PlasmaOrdered By: Geoffrey Ibrahim on 09-21-2024 ALT [Catalytic activity/Vol] Alanine aminotransferase [Enzymatic activity/volume] in Serum or Plasma High 7-52 [facility] Albumin [Mass/volume] in Ser um or Plasma by Bromocresol green (BCG) dye binding methoOrdered By: Geoffrey Ibrahim on 09-21-2024 Albumin BCG dye [Mass/Vol] Albumin [Mass/volume] in Serum or Plasma by Bromocresol green (BCG) dye binding metho Low 3.5-5.7 [facility] Alkaline phosphatase [Enzyma tic activity/volume] in Serum or PlasmaOrdered By: Geoffrey Ibrahim on 09-21-2024 ALP [Catalytic activity/Vol] Alkaline phosphatase [Enzymatic activity/volume] in Serum or Plasma High 34-104 [facility] Appearance of UrineOrdered B y: Geoffrey Ibrahim on 09-21-2024 Appearance (U) Urine appearance Clear [facility] Aspartate aminotransferase [ Enzymatic activity/volume] in Serum or PlasmaOrdered By: Geoffrey Ibrahim on 09-21-2024 AST [Catalytic activity/Vol] Aspartate aminotransferase [Enzymatic activity/volume] in Serum or Plasma High 13-39 [facility] Basophils Auto (Bld) [#/Vol] Ordered By: Geoffrey Ibrahim on 09-21-2024 Basophils (Bld) [#/Vol] Automated basophil count [facility] Basophils/100 WBC Auto (Bld) Ordered By: Geoffrey Ibrahim on 09-21-2024 Basophils/100 WBC (Bld) Automated basophil % [facility] Bilirubin Test strip Ql (U)O rdered By: Geoffrey Ibrahim on 09-21-2024 Bilirubin Ql (U) Bilirubin.total [Pre sence] in Urine by Test strip Negative [facility] Bilirubin.total [Mass/volume ] in Serum or PlasmaOrdered By: Geoffrey Ibrahim on 09-21-2024 Bilirubin [Mass/Vol] Bilirubin.total [Mass/volume] in Serum or Plasma High 0.3-1.0 [facility] Comment on above: Samples from patient s who have taken Naproxen have shown spurious elevation in Total Bilirubin levels. A metabolite of Naproxen, O-desmethylnaproxen, has been shown to interfere with the Jenalfredaik-Birdf method for measuring Total Bilirubin. Blood estimated average gluc ose determination by estimation from glycated hemoglobinOrdered By: Geoffrey Ibrahim on 09-21-2024 Average glucose Estimated from glycated hemoglobin (Bld) [Mass/Vol] Glucose mean value [Mass/volume] in Blood Estimated from glycated hemoglobin [facility] CMP with reflex to A1Con Albumin [Mass/Vol] 2.6 g/dL Low 3.5-5.7 [facility] Comment on above: Performed By: #### M ITOM2, HBSAG, HCBIGM, HBCAB, HBSAB, DYLAN, SMAB, HAAB, HAABT, HCV RX PCR, AFPTM, CERULOP, ALPHA PHEN, L-K MICRO, IGG, HEMOCHROM #### [facility] , #### KYLE, CMP, PT, CBC #### [address] Albumin/Globulin [Mass ratio] 0.7 {ratio} Normal [facility] Comment on above: Performed By: #### M ITOM2, HBSAG, HCBIGM, HBCAB, HBSAB, DYLAN, SMAB, HAAB, HAABT, HCV RX PCR, AFPTM, CERULOP, ALPHA PHEN, L-K MICRO, IGG, HEMOCHROM #### [facility] , #### KYLE, CMP, PT, CBC #### [address] ALP [Catalytic activity/Vol] 289 U/L High 34-104 [facility] Comment on above: Result Comment: PERF ORMED BY: [place] [address] PATHOLOGIST SERVICE OBSERVER LEANDRA WALSH M.D. Performed By: #### M ITOM2, HBSAG, HCBIGM, HBCAB, HBSAB, DYLAN, SMAB, HAAB, HAABT, HCV RX PCR, AFPTM, CERULOP, ALPHA PHEN, L-K MICRO, IGG, HEMOCHROM #### [facility] , #### KYLE, CMP, PT, CBC #### [address] ALT [Catalytic activity/Vol] 70 U/L High 7-52 [facility] Comment on above: Performed By: #### M ITOM2, HBSAG, HCBIGM, HBCAB, HBSAB, DYLAN, SMAB, HAAB, HAABT, HCV RX PCR, AFPTM, CERULOP, ALPHA PHEN, L-K MICRO, IGG, HEMOCHROM #### [facility] , #### KYLE, CMP, PT, CBC #### [address] Anion gap [Moles/Vol] 10.6 mmol/L Normal 6.0-15.0 [facility] Comment on above: Performed By: #### M ITOM2, HBSAG, HCBIGM, HBCAB, HBSAB, DYLAN, SMAB, HAAB, HAABT, HCV RX PCR, AFPTM, CERULOP, ALPHA PHEN, L-K MICRO, IGG, HEMOCHROM #### [facility] , #### KYLE, CMP, PT, CBC #### [facility] [address] AST [Catalytic activity/Vol] 143 U/L High 13-39 [facility] Comment on above: Performed By: #### M ITOM2, HBSAG, HCBIGM, HBCAB, HBSAB, DYLAN, SMAB, HAAB, HAABT, HCV RX PCR, AFPTM, CERULOP, ALPHA PHEN, L-K MICRO, IGG, HEMOCHROM #### [facility] , #### KYLE, CMP, PT, CBC #### [address] Bilirubin [Mass/Vol] 1.8 mg/dL High 0.3-1.0 [facility] Comment on above: Result [...] , #### KYLE, CMP, PT, CBC #### [facility] [address] Calcium [Mass/Vol] 8.9 mg/dL Normal 8.6-10.3 [facility] Comment on above: Performed By: #### M ITOM2, HBSAG, HCBIGM, HBCAB, HBSAB, DYLAN, SMAB, HAAB, HAABT, HCV RX PCR, AFPTM, CERULOP, ALPHA PHEN, L-K MICRO, IGG, HEMOCHROM #### [facility] , #### KYLE, CMP, PT, CBC #### [address] Chloride [Moles/Vol] 102 mmol/L Normal 98-107 [facility] Comment on above: Performed By: #### M ITOM2, HBSAG, HCBIGM, HBCAB, HBSAB, DYLAN, SMAB, HAAB, HAABT, HCV RX PCR, AFPTM, CERULOP, ALPHA PHEN, L-K MICRO, IGG, HEMOCHROM #### [facility] , #### KYLE, CMP, PT, CBC #### [address] CO2 [Moles/Vol] 26.0 mmol/L Normal 21.0-31.0 [facility] Comment on above: Performed By: #### M ITOM2, HBSAG, HCBIGM, HBCAB, HBSAB, DYLAN, SMAB, HAAB, HAABT, HCV RX PCR, AFPTM, CERULOP, ALPHA PHEN, L-K MICRO, IGG, HEMOCHROM #### [facility] , #### KYLE, CMP, PT, CBC #### [address] Creatinine [Mass/Vol] 1.24 mg/dL Normal 0.70-1.30 [facility] Comment on above: Performed By: #### M ITOM2, HBSAG, HCBIGM, HBCAB, HBSAB, DYLAN, SMAB, HAAB, HAABT, HCV RX PCR, AFPTM, CERULOP, ALPHA PHEN, L-K MICRO, IGG, HEMOCHROM #### [facility] , #### KYLE, CMP, PT, CBC #### [address] GFR/1.73 sq M.predicted MDRD (S/P/Bld) [Vol rate/Area] mL/min/{1.73_m2} Normal [facility] Comment on above: Performed By: #### M ITOM2, HBSAG, HCBIGM, HBCAB, HBSAB, DYLAN, SMAB, HAAB, HAABT, HCV RX PCR, AFPTM, CERULOP, ALPHA PHEN, L-K MICRO, IGG, HEMOCHROM #### [facility] , #### KYLE, CMP, PT, CBC #### [address] Globulin (S) [Mass/Vol] 3.5 g/dL Normal [facility] Comment on above: Performed By: #### M ITOM2, HBSAG, HCBIGM, HBCAB, HBSAB, DYLAN, SMAB, HAAB, HAABT, HCV RX PCR, AFPTM, CERULOP, ALPHA PHEN, L-K MICRO, IGG, HEMOCHROM #### [facility] , #### KYLE, CMP, PT, CBC #### [address] Glucose [Mass/Vol] 114 mg/dL High 70-100 [facility] Comment on above: Result Comment: ADA recommended reference range Performed By: #### M ITOM2, HBSAG, HCBIGM, HBCAB, HBSAB, DYLAN, SMAB, HAAB, HAABT, HCV RX PCR, AFPTM, CERULOP, ALPHA PHEN, L-K MICRO, IGG, HEMOCHROM #### [facility] , #### KYLE, CMP, PT, CBC #### [address] [address] Potassium [Moles/Vol] 4.6 mmol/L Normal 3.5-5.1 [facility] Comment on above: Performed By: #### M ITOM2, HBSAG, HCBIGM, HBCAB, HBSAB, DYLAN, SMAB, HAAB, HAABT, HCV RX PCR, AFPTM, CERULOP, ALPHA PHEN, L-K MICRO, IGG, HEMOCHROM #### [facility] , #### KYLE, CMP, PT, CBC #### [address] Protein [Mass/Vol] 6.1 g/dL Low 6.4-8.9 [facility] Comment on above: Performed By: #### M ITOM2, HBSAG, HCBIGM, HBCAB, HBSAB, DYLAN, SMAB, HAAB, HAABT, HCV RX PCR, AFPTM, CERULOP, ALPHA PHEN, L-K MICRO, IGG, HEMOCHROM #### [facility] , #### KYLE, CMP, PT, CBC #### [address] Sodium [Moles/Vol] 134 mmol/L Low 136-145 [facility] Comment on above: Performed By: #### M ITOM2, HBSAG, HCBIGM, HBCAB, HBSAB, DYLAN, SMAB, HAAB, HAABT, HCV RX PCR, AFPTM, CERULOP, ALPHA PHEN, L-K MICRO, IGG, HEMOCHROM #### [facility] , #### KYLE, CMP, PT, CBC #### [address] Urea nitrogen [Mass/Vol] 32 mg/dL High 7-25 [facility] Comment on above: Performed By: #### M ITOM2, HBSAG, HCBIGM, HBCAB, HBSAB, DYLAN, SMAB, HAAB, HAABT, HCV RX PCR, AFPTM, CERULOP, ALPHA PHEN, L-K MICRO, IGG, HEMOCHROM #### [facility] , #### KYLE, CMP, PT, CBC #### [address] Calcium [Mass/volume] in Ser um or PlasmaOrdered By: Geoffrey Ibrahim on 09-21-2024 Calcium [Mass/Vol] Calcium [Mass/volume ] in Serum or Plasma 8.6-10.3 [facility] Carbon dioxide, total [Moles /volume] in Serum or PlasmaOrdered By: Geoffrey Ibrahim on 09-21-2024 CO2 [Moles/Vol] Carbon dioxide, tota l [Moles/volume] in Serum or Plasma 21.0-31.0 [facility] Chloride [Moles/volume] in S saud or PlasmaOrdered By: Geoffrey Ibrahim on 09-21-2024 Chloride [Moles/Vol] Chloride [Moles/vol ume] in Serum or Plasma 98-107 [facility] Color Auto (U)Ordered By: Claudia Ibrahim on 09-21-2024 Color (U) Color of Urine by Auto Yellow [facility] Creatinine [Mass/volume] in Serum or PlasmaOrdered By: Geoffrey Ibrahim on 09-21-2024 Creatinine [Mass/Vol] Creatinine [Mass/v olume] in Serum or Plasma 0.70-1.30 [facility] Diff and CBCon 09-21-2024 Erythrocyte distribution width (RBC) [Ratio] 15.5 % High 12.0-14.8 [facility] Comment on above: Performed By: #### M ITOM2, HBSAG, HCBIGM, HBCAB, HBSAB, DYLAN, SMAB, HAAB, HAABT, HCV RX PCR, AFPTM, CERULOP, ALPHA PHEN, L-K MICRO, IGG, HEMOCHROM #### [facility] , #### KYLE, CMP, PT, CBC #### [facility] [address] Hematocrit (Bld) [Volume fraction] 42.1 % Normal 38.8-50.0 [facility] Comment on above: Performed By: #### M ITOM2, HBSAG, HCBIGM, HBCAB, HBSAB, DYLAN, SMAB, HAAB, HAABT, HCV RX PCR, AFPTM, CERULOP, ALPHA PHEN, L-K MICRO, IGG, HEMOCHROM #### [facility] , #### KYLE, CMP, PT, CBC #### [facility] [address] Hemoglobin (Bld) [Mass/Vol] 14.7 g/dL Normal 13.0-17.0 [facility] Comment on above: Performed By: #### M ITOM2, HBSAG, HCBIGM, HBCAB, HBSAB, DYLAN, SMAB, HAAB, HAABT, HCV RX PCR, AFPTM, CERULOP, ALPHA PHEN, L-K MICRO, IGG, HEMOCHROM #### [facility] , #### KYLE, CMP, PT, CBC #### [address] Lymphocytes/100 WBC (Bld) 4 % Low 18-42 [facility] Comment on above: Performed By: #### M ITOM2, HBSAG, HCBIGM, HBCAB, HBSAB, YDLAN, SMAB, HAAB, HAABT, HCV RX PCR, AFPTM, CERULOP, ALPHA PHEN, L-K MICRO, IGG, HEMOCHROM #### [facility] , #### KYLE, CMP, PT, CBC #### [address] MCH (RBC) [Entitic mass] 33.4 pg Normal 27.5-35.2 [facility] Comment on above: Performed By: #### M ITOM2, HBSAG, HCBIGM, HBCAB, HBSAB, DYLAN, SMAB, HAAB, HAABT, HCV RX PCR, AFPTM, CERULOP, ALPHA PHEN, L-K MICRO, IGG, HEMOCHROM #### [facility] , #### KYLE, CMP, PT, CBC #### [address] MCV (RBC) [Entitic vol] 95.4 fL Normal 83.5-101 [facility] Comment on above: Performed By: #### M ITOM2, HBSAG, HCBIGM, HBCAB, HBSAB, DYLAN, SMAB, HAAB, HAABT, HCV RX PCR, AFPTM, CERULOP, ALPHA PHEN, L-K MICRO, IGG, HEMOCHROM #### [facility] , #### KYLE, CMP, PT, CBC #### [address] Mean Corpuscular HGB Conc 35.0 g/dL Normal 32.5-35.6 [facility] Comment on above: Performed By: #### M ITOM2, HBSAG, HCBIGM, HBCAB, HBSAB, DYLAN, SMAB, HAAB, HAABT, HCV RX PCR, AFPTM, CERULOP, ALPHA PHEN, L-K MICRO, IGG, HEMOCHROM #### [facility] , #### KYLE, CMP, PT, CBC #### [facility] [address] Monocytes/100 WBC (Bld) 9 % Normal 2-11 [facility] Comment on above: Performed By: #### M ITOM2, HBSAG, HCBIGM, HBCAB, HBSAB, DYLAN, SMAB, HAAB, HAABT, HCV RX PCR, AFPTM, CERULOP, ALPHA PHEN, L-K MICRO, IGG, HEMOCHROM #### [facility] , #### KYLE, CMP, PT, CBC #### [address] Platelet Estimate Normal Normal Normal [facility] Comment on above: Performed By: #### M ITOM2, HBSAG, HCBIGM, HBCAB, HBSAB, DYLAN, SMAB, HAAB, HAABT, HCV RX PCR, AFPTM, CERULOP, ALPHA PHEN, L-K MICRO, IGG, HEMOCHROM #### [facility] , #### KYLE, CMP, PT, CBC #### [address] Platelet mean volume (Bld) [Entitic vol] 7.8 fL Normal 6.6-10.1 [facility] Comment on above: Performed By: #### M ITOM2, HBSAG, HCBIGM, HBCAB, HBSAB, DYLAN, SMAB, HAAB, HAABT, HCV RX PCR, AFPTM, CERULOP, ALPHA PHEN, L-K MICRO, IGG, HEMOCHROM #### [facility] , #### KYLE, CMP, PT, CBC #### [address] Platelet Morphology Normal Normal Normal [facility] Comment on above: Result Comment: PERF ORMED BY: [place] [address] PATHOLOGIST SERVICE OBSERVER LEANDRA WALSH M.D. Performed By: #### M ITOM2, HBSAG, HCBIGM, HBCAB, HBSAB, DYLAN, SMAB, HAAB, HAABT, HCV RX PCR, AFPTM, CERULOP, ALPHA PHEN, L-K MICRO, IGG, HEMOCHROM #### [facility] , #### KYLE, CMP, PT, CBC #### [address] Platelets (Bld) [#/Vol] 188 10*3/uL Normal 150-450 [facility] Comment on above: Performed By: #### M ITOM2, HBSAG, HCBIGM, HBCAB, HBSAB, DYLAN, SMAB, HAAB, HAABT, HCV RX PCR, AFPTM, CERULOP, ALPHA PHEN, L-K MICRO, IGG, HEMOCHROM #### [facility] , #### KYLE, CMP, PT, CBC #### [address] RBC (Bld) [#/Vol] 4.42 10*6/uL Normal 3.90-5.60 [facility] Comment on above: Performed By: #### M ITOM2, HBSAG, HCBIGM, HBCAB, HBSAB, DYLAN, SMAB, HAAB, HAABT, HCV RX PCR, AFPTM, CERULOP, ALPHA PHEN, L-K MICRO, IGG, HEMOCHROM #### [facility] , #### KYLE, CMP, PT, CBC #### [address] RBC morphology finding Nom (Bld) Normal Normal Normal [facility] Comment on above: Performed By: #### M ITOM2, HBSAG, HCBIGM, HBCAB, HBSAB, DYLAN, SMAB, HAAB, HAABT, HCV RX PCR, AFPTM, CERULOP, ALPHA PHEN, L-K MICRO, IGG, HEMOCHROM #### [facility] , #### KYLE, CMP, PT, CBC #### [address] Segmented neutrophils/100 WBC (Bld) 87 % High 50-70 [facility] Comment on above: Performed By: #### M ITOM2, HBSAG, HCBIGM, HBCAB, HBSAB, DYLAN, SMAB, HAAB, HAABT, HCV RX PCR, AFPTM, CERULOP, ALPHA PHEN, L-K MICRO, IGG, HEMOCHROM #### [facility] , #### KYLE, CMP, PT, CBC #### [address] WBC (Bld) [#/Vol] 5.4 10*3/uL Normal 4.1-10.5 [facility] Comment on above: Performed By: #### M ITOM2, HBSAG, HCBIGM, HBCAB, HBSAB, DYLAN, SMAB, HAAB, HAABT, HCV RX PCR, AFPTM, CERULOP, ALPHA PHEN, L-K MICRO, IGG, HEMOCHROM #### [facility] , #### KYLE, CMP, PT, CBC #### [address] EBS A1C with Estimated Avmary hernándezjocelyn 09-21-2024 Glucose [Mass/Vol] 134 mg/dL Normal [facility] Comment on above: Result Comment: PERF ORMED BY: [place] [address] PATHOLOGIST SERVICE OBSERVER LEANDRA WALSH M.D. Performed By: #### M ITOM2, HBSAG, HCBIGM, HBCAB, HBSAB, DYLAN, SMAB, HAAB, HAABT, HCV RX PCR, AFPTM, CERULOP, ALPHA PHEN, L-K MICRO, IGG, HEMOCHROM #### [facility] , #### KYLE, CMP, PT, CBC #### [address] ECG 12 lead ECGon 09-21-2024 ECG 12 lead ECG [facility] Main [address] [address] Electrocardiograph Report Signed Patient: Gerson Penn MR#: [id number] : 1955 Acct:[id number] Age/Sex: 68 / M ADM Date: 09/21/24 Loc: Room: Type: [facility] Attending Dr: Geoffrey Ibrahim DO Ordering [...] When compared with ECG of 04-Oct-2012 08:47, VT interval has decreased Confirmed by Taj Palm ([id number]) on 09/21/2024 8:57:00 AM Referred By: Electronically Signed By: Taj Palm Transcribed By: MUS Signed By Taj Palm MD 09/21/24 0853 Normal [facility] Eosinophils Auto (Bld) [#/Vo l]Ordered By: Geoffrey Ibrahim on 09-21-2024 Eosinophils (Bld) [#/Vol] Automated eosinophil count [facility] Eosinophils/100 WBC Auto (Bl d)Ordered By: Geoffrey Ibrahim on 09-21-2024 Eosinophils/100 WBC (Bld) Automated eosinophil % [facility] Erythrocyte distribution wid th Auto (RBC) [Ratio]Ordered By: Geoffrey Ibrahim on 09-21-2024 Erythrocyte distribution width (RBC) [Ratio] Erythrocyte distribution width [Ratio] by Automated count High 12.0-14.8 [facility] Erythrocyte morphology findi ng [Identifier] in BloodOrdered By: Geoffrey Ibrahim on 09-21-2024 RBC morphology finding Nom (Bld) RBC morphology Normal [facility] Globulin Calc (S) [Mass/Vol] Ordered By: Geoffrey Ibrahim on 09-21-2024 Globulin (S) [Mass/Vol] Serum globulin measurement by calculation (mass/volume) [facility] Glucose [Mass/volume] in Ser um or PlasmaOrdered By: Geoffrey Ibrahim on 09-21-2024 Glucose [Mass/Vol] Glucose [Mass/volume ] in Serum or Plasma High 70-100 [facility] Comment on above: ADA recommended refe rence range Glucose [Mass/volume] in Uri ne by Test stripOrdered By: Geoffrey Ibrahim on 09-21-2024 Glucose Test strip (U) [Mass/Vol] Glucose [Mass/volume] in Urine by Test strip Normal [facility] Hematocrit Auto (Bld) [Volum e fraction]Ordered By: Geoffrey Ibrahim on 09-21-2024 Hematocrit (Bld) [Volume fraction] Hematocrit [Volume Fraction] of Blood by Automated count 38.8-50.0 [facility] Hemoglobin A1c measurementOr dered By: Geoffrey Ibrahim on 09-21-2024 HbA1c (Bld) [Mass fraction] 6.3 % High 4.3-5.6 [facility] Comment on above: Increased risk for [...] KYLE, CMP, PT, CBC #### [facility] [address] [place] [address] Hemoglobin Test strip Ql (U) Ordered By: Geoffrey Ibrahim on 09-21-2024 Hemoglobin Ql (U) Hemoglobin [Presence ] in Urine by Test strip Negative [facility] Hemoglobin [Mass/volume] in BloodOrdered By: Geoffrey Ibrahim on 09-21-2024 Hemoglobin (Bld) [Mass/Vol] Hemoglobin [Mass/volume] in Blood 13.0-17.0 [facility] Ketones Test strip Ql (U)Ord ered By: Geoffrey Ibrahim on 09-21-2024 Ketones Ql (U) Ketones [Presence] i n Urine by Test strip Negative [facility] Leukocyte esterase [Presence ] in Urine by Test stripOrdered By: Geoffrey Ibrahim on 09-21-2024 Leukocyte esterase Test strip Ql (U) Leukocyte esterase [Presence] in Urine by Test strip Negative [facility] Leukocytes [#/volume] correc adrián for nucleated erythrocytes in Blood by Automated counOrdered By: Geoffrey Ibrahim on 09-21-2024 WBC corrected for nucl RBC Auto (Bld) [#/Vol] Leukocytes [#/volume] corrected for nucleated erythrocytes in Blood by Automated coun 4.1-10.5 [facility] Lymphocytes Auto (Bld) [#/Vo l]Ordered By: Geoffrey Ibrahim on 09-21-2024 Lymphocytes (Bld) [#/Vol] Lymphocytes [#/volume] in Blood by Automated count [facility] Lymphocytes/100 WBC Auto (Bl d)Ordered By: Geoffrey Ibrahim on 09-21-2024 Lymphocytes/100 WBC (Bld) Lymphocytes/100 leukocytes in Blood by Automated count [facility] Lymphocytes/100 WBC Manual c nt (Bld)Ordered By: Geoffrey Ibrahim on 09-21-2024 Lymphocytes/100 WBC (Bld) Lymphocytes/100 leukocytes in Blood by Manual count Low 18-42 [facility] MCH Auto (RBC) [Entitic mass ]Ordered By: Geoffrey Ibrahim on 09-21-2024 MCH (RBC) [Entitic mass] MCH [Entitic mass] by Automated count 27.5-35.2 [facility] MCHC Auto (RBC) [Mass/Vol]Or dered By: Geoffrey Ibrahim on 09-21-2024 MCHC (RBC) [Mass/Vol] MCHC [Mass/volume] by Automated count 32.5-35.6 [facility] MCV Auto (RBC) [Entitic vol] Ordered By: Geoffrey Ibrahim on 09-21-2024 MCV (RBC) [Entitic vol] MCV [Entitic volume] by Automated count 83.5-101 [facility] Monocytes Auto (Bld) [#/Vol] Ordered By: Geoffrey Ibrahim on 09-21-2024 Monocytes (Bld) [#/Vol] Automated blood monocyte count [facility] Monocytes/100 WBC Auto (Bld) Ordered By: Geoffrey Ibrahim on 09-21-2024 Monocytes/100 WBC (Bld) Automated monocyte % [facility] Monocytes/100 WBC Manual cnt (Bld)Ordered By: Geoffrey Ibrahim on 09-21-2024 Monocytes/100 WBC (Bld) Monocytes/100 leukocytes in Blood by Manual count 2-11 [facility] Neutrophils Auto (Bld) [#/Vo l]Ordered By: Geoffrey Ibrahim on 09-21-2024 Neutrophils (Bld) [#/Vol] Neutrophils [#/volume] in Blood by Automated count [facility] Neutrophils/100 WBC Auto (Bl d)Ordered By: Geoffrey Ibrahim on 09-21-2024 Neutrophils/100 WBC (Bld) Automated neutrophil % [facility] Nitrite Test strip Ql (U)Ord ered By: Geoffrey Ibrahim on 09-21-2024 Nitrite Ql (U) Nitrite [Presence] i n Urine by Test strip Negative [facility] No Panel InformationOrdered By: Geoffrey Ibrahim on 09-21-2024 Estimated GFR (CKD-EPI) > 60.0 mL/Min [facility] Creatinine Clearance (Chem N/A [facility] Nucleated erythrocytes [Pres ence] in Blood by Automated countOrdered By: Geoffrey Ibrahim on 09-21-2024 Nucleated RBC Auto Ql (Bld) Nucleated erythrocytes [Presence] in Blood by Automated count [facility] Platelet adequacy [Presence] in Blood by Light microscopyOrdered By: Geoffrey Ibrahim on 09-21-2024 Platelets LM Ql (Bld) Platelet adequacy [Presence] in Blood by Light microscopy Normal [facility] Platelet mean volume Auto (B ld) [Entitic vol]Ordered By: Geoffrey Ibrahim on 09-21-2024 Platelet mean volume (Bld) [Entitic vol] Platelet mean volume [Entitic volume] in Blood by Automated count 6.6-10.1 [facility] Platelet morphology finding [Identifier] in BloodOrdered By: Geoffrey Ibrahim on 09-21-2024 Platelet morphology finding Nom (Bld) Platelet morphology finding [Identifier] in Blood Normal [facility] Platelets Auto (Bld) [#/Vol] Ordered By: Geoffrey Ibrahim on 09-21-2024 Platelets (Bld) [#/Vol] Platelets [#/volume] in Blood by Automated count 150-450 [facility] Potassium [Moles/volume] in Serum or PlasmaOrdered By: Geoffrey Ibrahim on 09-21-2024 Potassium [Moles/Vol] Potassium [Moles/v olume] in Serum or Plasma 3.5-5.1 [facility] Protein Test strip (U) [Mass /Vol]Ordered By: Geoffrey Ibrahim on 09-21-2024 Protein (U) [Mass/Vol] Protein [Mass/vol ume] in Urine by Test strip Negative [facility] Protein [Mass/volume] in Ser um or PlasmaOrdered By: Geoffrey Ibrahim on 09-21-2024 Protein [Mass/Vol] Protein [Mass/volume ] in Serum or Plasma Low 6.4-8.9 [facility] RBC Auto (Bld) [#/Vol]Ordere d By: Geoffrey Ibrahim on 09-21-2024 RBC (Bld) [#/Vol] Erythrocytes [#/volu me] in Blood by Automated count 3.90-5.60 [facility] Segmented neutrophils/100 WB C Manual cnt (Bld)Ordered By: Geoffrey Ibrahim on 09-21-2024 Segmented neutrophils/100 WBC (Bld) Manual blood segmented neutrophils/100 leukocytes High 50-70 [facility] Serum or plasma albumin/glob ulin mass ratioOrdered By: Geoffrey Ibrahim on 09-21-2024 Albumin/Globulin [Mass ratio] Serum or plasma albumin/globulin mass ratio [facility] Serum or plasma anion gap de terminationOrdered By: Geoffrey Ibrahim on 09-21-2024 Anion gap [Moles/Vol] Serum or plasma an ion gap determination 6.0-15.0 [facility] Sodium [Moles/volume] in Ser um or PlasmaOrdered By: Geoffrey Ibrahim on 09-21-2024 Sodium [Moles/Vol] Sodium [Moles/volume ] in Serum or Plasma Low 136-145 [facility] Specific gravity Test strip (U) [Rel density]Ordered By: Geoffrey Ibrahim on 09-21-2024 Specific gravity (U) [Rel density] Specific gravity of Urine by Test strip 1.001-1.03 0 [facility] Urea nitrogen [Mass/volume] in Serum or PlasmaOrdered By: Geoffrey Ibrahim on 09-21-2024 Urea nitrogen [Mass/Vol] Urea nitrogen [Mass/volume] in Serum or Plasma High 7-25 [facility] Urinalysison 09-21-2024 Appearance (U) Clear Normal Clear [facility] Comment on above: Order Comment: Name Collection Type:: Clean-Voided Midstream Performed By: #### M ITOM2, HBSAG, HCBIGM, HBCAB, HBSAB, DYLAN, SMAB, HAAB, HAABT, HCV RX PCR, AFPTM, CERULOP, ALPHA PHEN, L-K MICRO, IGG, HEMOCHROM #### [facility] , #### KYLE, CMP, PT, CBC #### [facility] [address] Bilirubin,Urine Negative Normal Negative [facility] Comment on above: Order Comment: Name Collection Type:: Clean-Voided Midstream Performed By: #### M ITOM2, HBSAG, HCBIGM, HBCAB, HBSAB, DYLAN, SMAB, HAAB, HAABT, HCV RX PCR, AFPTM, CERULOP, ALPHA PHEN, L-K MICRO, IGG, HEMOCHROM #### [facility] , #### KYLE, CMP, PT, CBC #### [facility] [address] Color (U) Yellow Normal Yellow [facility] Comment on above: Order Comment: Name Collection Type:: Clean-Voided Midstream Performed By: #### M ITOM2, HBSAG, HCBIGM, HBCAB, HBSAB, DYLAN, SMAB, HAAB, HAABT, HCV RX PCR, AFPTM, CERULOP, ALPHA PHEN, L-K MICRO, IGG, HEMOCHROM #### [facility] , #### KYLE, CMP, PT, CBC #### [address] Glucose Ql (U) Normal Normal Normal [facility] Comment on above: Order Comment: Name Collection Type:: Clean-Voided Midstream Performed By: #### M ITOM2, HBSAG, HCBIGM, HBCAB, HBSAB, DYLAN, SMAB, HAAB, HAABT, HCV RX PCR, AFPTM, CERULOP, ALPHA PHEN, L-K MICRO, IGG, HEMOCHROM #### [facility] , #### KYLE, CMP, PT, CBC #### [address] Ketones Ql (U) Negative Normal Negative [facility] Comment on above: Order Comment: Name Collection Type:: Clean-Voided Midstream Performed By: #### M ITOM2, HBSAG, HCBIGM, HBCAB, HBSAB, DYLAN, SMAB, HAAB, HAABT, HCV RX PCR, AFPTM, CERULOP, ALPHA PHEN, L-K MICRO, IGG, HEMOCHROM #### [facility] , #### KYLE, CMP, PT, CBC #### [address] Leukocyte esterase Test strip Ql (U) Negative Normal Negative [facility] Comment on above: Order Comment: Name Collection Type:: Clean-Voided Midstream Performed By: #### M ITOM2, HBSAG, HCBIGM, HBCAB, HBSAB, DYLAN, SMAB, HAAB, HAABT, HCV RX PCR, AFPTM, CERULOP, ALPHA PHEN, L-K MICRO, IGG, HEMOCHROM #### [facility] , #### KYLE, CMP, PT, CBC #### [address] Nitrite,Urine Negative Normal Negative [facility] Comment on above: Order Comment: Name Collection Type:: Clean-Voided Midstream Performed By: #### M ITOM2, HBSAG, HCBIGM, HBCAB, HBSAB, DYLAN, SMAB, HAAB, HAABT, HCV RX PCR, AFPTM, CERULOP, ALPHA PHEN, L-K MICRO, IGG, HEMOCHROM #### [facility] , #### KYLE, CMP, PT, CBC #### [address] Occult Blood,Urine Negative Normal Negative [facility] Comment on above: Order Comment: Name Collection Type:: Clean-Voided Midstream Result Comment: PERF ORMED BY: [place] [address] PATHOLOGIST SERVICE OBSERVER LEANDRA WALSH M.D. Performed By: #### M ITOM2, HBSAG, HCBIGM, HBCAB, HBSAB, DYLAN, SMAB, HAAB, HAABT, HCV RX PCR, AFPTM, CERULOP, ALPHA PHEN, L-K MICRO, IGG, HEMOCHROM #### [facility] , #### KYLE, CMP, PT, CBC #### [address] pH (U) 6.0 [pH] Normal 5.0-9.0 [facility] Comment on above: Order Comment: Name Collection Type:: Clean-Voided Midstream Performed By: #### M ITOM2, HBSAG, HCBIGM, HBCAB, HBSAB, DYLAN, SMAB, HAAB, HAABT, HCV RX PCR, AFPTM, CERULOP, ALPHA PHEN, L-K MICRO, IGG, HEMOCHROM #### [facility] , #### KYLE, CMP, PT, CBC #### [address] Protein,Urine Negative Normal Negative [facility] Comment on above: Order Comment: Name Collection Type:: Clean-Voided Midstream Performed By: #### M ITOM2, HBSAG, HCBIGM, HBCAB, HBSAB, DYLAN, SMAB, HAAB, HAABT, HCV RX PCR, AFPTM, CERULOP, ALPHA PHEN, L-K MICRO, IGG, HEMOCHROM #### [facility] , #### KYLE, CMP, PT, CBC #### [facility] [address] Specificy [place],Urine 1.014 Normal 1.001-1.03 0 [facility] Comment on above: Order Comment: Name Collection Type:: Clean-Voided Midstream Performed By: #### M ITOM2, HBSAG, HCBIGM, HBCAB, HBSAB, DYLAN, SMAB, HAAB, HAABT, HCV RX PCR, AFPTM, CERULOP, ALPHA PHEN, L-K MICRO, IGG, HEMOCHROM #### [facility] , #### KYLE, CMP, PT, CBC #### [address] Urobilinogen,Urine Normal Normal Normal [facility] Comment on above: Order Comment: Name Collection Type:: Clean-Voided Midstream Performed By: #### M ITOM2, HBSAG, HCBIGM, HBCAB, HBSAB, DYLAN, SMAB, HAAB, HAABT, HCV RX PCR, AFPTM, CERULOP, ALPHA PHEN, L-K MICRO, IGG, HEMOCHROM #### [facility] , #### KYLE, CMP, PT, CBC #### [address] Urobilinogen Test strip (U) [Mass/Vol]Ordered By: Geoffrey Ibrahim on 09-21-2024 Urobilinogen (U) [Mass/Vol] Urobilinogen [Mass/volume] in Urine by Test strip Normal [facility] WBC Auto (Bld) [#/Vol]Ordere d By: Geoffrey Ibrahim on 09-21-2024 WBC (Bld) [#/Vol] Leukocytes [#/volume ] in Blood by Automated count 4.1-10.5 [facility] pH Test strip (U)Ordered By: Geoffrey Ibrahim on 09-21-2024 pH (U) pH of Urine by Test strip 5.0-9.0 [facility] BASIC METABOLIC PANELon 10-1 Anion gap [Moles/Vol] 9 mmol/L Normal 7-20 [facility] on above: Performed By: #### L AB15 ####[facility] ([facility])[address] [place] [address] Calcium [Mass/Vol] 6.9 mg/dL Low 8.6-10.3 [facility] Comment on above: Performed By: #### L AB15 ####[facility] ([facility])[address] [place] [address] Chloride [Moles/Vol] 110 mmol/L High 98-107 [facility] Comment on above: Performed By: #### L AB15 ####[facility] [place] [address] CO2 [Moles/Vol] 22 mmol/L Normal 21-31 [facility] Comment on above: Performed By: #### L AB15 ####[facility] [place] [address] Creatinine [Mass/Vol] 1.04 mg/dL Normal 0.70-1.30 [facility] Comment on above: Performed By: #### L AB15 ####[facility] [place] [address] GLOMERULAR FILTRATION RATE ML/MIN/1.73 SQ M.PREDICTED 79.2 [...] of individuals. Performed By: #### L [id number] ####[facility] [place] [address] Glucose [Mass/Vol] 86 mg/dL Normal 70-100 [facility] Comment on above: Performed By: #### L [id number] ####[facility] [place] [address] Potassium [Moles/Vol] 3.9 mmol/L Normal 3.5-5.1 [facility] Comment on above: Performed By: #### L [id number] ####[facility] [place] [address] Sodium [Moles/Vol] 137 mmol/L Normal 136-145 [facility] Comment on above: Performed By: #### L AB15 ####[facility] (BEAKER)[address] [place] [address] Urea nitrogen [Mass/Vol] 32 mg/dL High 7-25 [facility] Comment on above: Performed By: #### L AB15 ####[facility] [place] [address] UREA NITROGEN/CREATININE (MASS RATIO) IN SER/PLAS 30.8 Normal [facility] Comment on above: Performed By: #### L [id number] ####[facility] [place] [address] HPon 05-14-2024 HP ------- Attestation signed by Taj Oteor MD at 05/14/2024 11:43 AM Coronary CTA [...] possible PCI. 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 NURSNOTEon 05-14-2024 NURSNOTE Patient okay to disc harge at [address] [facility] NURSNOTE RN educated pt on d/ c instructions. This included: site care, limited physical activity, resume normal diet, future appointments, medications, and moderate sedation instructions. RN educated pt on when to notify physician and when to go to the hospital. RN encouraged pt to voice any questions or concerns, and answered any questions or concerns if pt verbalized. [facility] NURSALBERTOE Dr. Aparicio notifi ed of normal creatnine result. states pt ok for early discharge at 2:30 and no need to continue IVF. [facility] Orders Onlyon 05-04-2024 Orders Only [id number] Chencho Penn 1955 M Date Provider Department Center 05/04/2024 ERMA JUNE Family History Problem Relation Age of Onset Colon cancer Mother Coronary artery disease Father Cancer Brother Family Status - Relation Status Age at Mother Father Brother [facility] CREATININE, SERUMon 05-01-20 24 Creatinine [Mass/Vol] 1.45 mg/dL High 0.70-1.30 [facility] Comment on above: Performed By: #### L [id number] ####[facility] (JM)[address] [place] [address] GLOMERULAR FILTRATION RATE ML/MIN/1.73 SQ M.PREDICTED 53.1 [...] of individuals. Performed By: #### L [id number] ####[facility] (JCAEY)[address] [place] [address] CTA HEART CORONARY W IV CONT [facility] 05-01-2024 CTA HEART CORONARY W IV CONTRAST [...] liver. Electronically signed: Tera Condon MD. Not Chichidtd Invalid Interpretation Code [facility] Labon 05-01-2024 Lab [id number] Chencho Penn 1955 M Date Provider Department [place] 05/01/2024 2245-[facility] OPD LAB RESOURCE [facility] [place] [facility] Family History Problem Relation Age of Onset Colon cancer Mother Coronary artery disease Father Cancer Brother Family Status - Relation Status Age at Mother Father Brother Normal [facility] HP 04-29-2024 [facility] Cardiology - [facility] Subjective Gerson Penn is a [...] 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 [place] 04-18-2023 Consent [id number]#1.00CD:127 [facility] In office Testingon 04-18-20 23 In office Testing [id number]#1.00CD:127 [facility] Registrationon 04-18-2023 Registration [id number]#1.00CD:127 [facility] In office Testingon 03-15-20 23 In office Testing [id number]#1.00CD:127 [facility] [place] 03-08-2023 Consent [id number]#1.00CD:127 [facility] Registrationon 03-08-2023 Registration [id number]#1.00CD:127 [facility] In office Testingon 02-06-20 23 In office Testing [id number]#1.00CD:127 [facility] [place] 02-04-2023 Consent [id number]#1.00CD:127 [facility] Registrationon 02-04-2023 Registration [id number]#1.00CD:127 [facility] Patient Correspondenceon Patient Correspondence [id number]#1.00CD:127 [facility] Physician Referralon 023 Physician Referral [id number]#1.00CD:127 [facility] Physician Referral [id number]#1.00CD:127 [facility] [place] 11-09-2022 Consent [id number]#1.00CD:127 [facility] In office Testingon 11-10-19 23 In office Testing [id number]#1.00CD:127 [facility] Registrationon 11-09-2022 Registration [id number]#1.00CD:127 [facility] [place] 07-27-2022 Consent [id number]#1.00CD:127 [facility] Registrationon 07-27-2022 Registration [id number]#1.00CD:127 [facility] [place] 07-09-2022 Consent [id number]#1.00CD:[address] [facility] In office Testingon 07-09-20 22 In office Testing [id number]#1.00CD:[address] [facility] Registrationon 07-09-2022 Registration [id number]#1.00CD:[address] [facility] In office Testingon 07-06-20 22 In office Testing [id number]#1.00CD:[address] [facility] GLYCOHEMOGLOBIN A1Con 2021 ADA RECOMMENDATION SEE BELOW Normal [facility] Comment on above: Result Comment: ADA RECOMMENDED LIMIT 4.0 - 6.0 ADA THERAPEUTIC TARGET < 7.0 ACTION SUGGESTED > 7.0 Performed By: #### A 1C #### [facility] [address] [address] [address] Sandor Coffman Glucose [Mass/Vol] 140 mg/dL Normal [facility] Comment on above: Performed By: #### A 1C #### [facility] [address] [address] [address] Sandor Coffman HbA1c (Bld) [Mass fraction] 6.5 % Critically high 4.5-6.2 [facility] Comment on above: Performed By: #### A 1C #### [facility] [address] [address] [address] Sandor Coffman Registrationon 05-01-2022 Registration [id number]#1.00CD:[address] [facility] [place] 04-27-2022 Consent [id number]#1.00CD:[address] [facility] HIP LEFT 1 OR 2 VWS WITH PEL VISon 08-27-2019 HIP LEFT 1 OR 2 VWS WITH PELVIS [facility] Department of Radiology [address] [place] [phone] Patient Name: GERSON PENN : 1955 [...] above. Electronically signed: David Sanford. Transcribed by: [email or web address], User Resident: Electronically Signed by: DAVID SANFORD @ 08/27/2019 01:52 PM Normal [facility] Comment on above: Order Comment: , Vie ws (X-RAY, HIP): Radiologic Protocol , Views (X-RAY, HIP): Radiologic Protocol , , , Ordering Provider - LIZET LOVELACE MD , HIP LEFT 1 OR 2 VWS WITH PEL VISon 06-18-2019 HIP LEFT 1 OR 2 VWS WITH PELVIS [facility] Department of Radiology [address] [place] [id number] Patient Name: GERSON PENN : 1955 [...] loosening Electronically signed by:Carlos Cameron. Transcribed by: [email or web address], User Resident: Electronically Signed by: CARLOS CAMERON @ 06/18/2019 02:11 PM Normal [facility] Comment on above: Order Comment: , Vie ws (X-RAY, HIP): Radiologic Protocol , Views (X-RAY, HIP): Radiologic Protocol , , , Ordering Provider - LIZET LOVELACE MD , Vital Signs Date Time Vital Sign Value Performing Clinician Faci lity 01-18-2025 09:13-0400 Respiratory rate 18 /min Crispin Early DPM Work Phone: [facility] 2024 09:50-0400 Body height 177.8 cm Mary Lomax MD Work Phone: [facility] 2024 09:50-0400 Body mass index (BMI) [Ratio] 44.34 kg/m2 Mary Lomax MD Work Phone: [facility] 2024 09:50-0400 Body weight 140.16 kg Mary Lomax MD Work Phone: [facility] 2024 09:50-0400 Diastolic blood pressure 82 mm[Hg] Mary Lomax MD Work Phone: [facility] 2024 09:50-0400 Systolic blood pressure 114 mm[Hg] Mary Lomax MD Work Phone: [facility] 11-05-2024 10:19-0400 Diastolic blood pressure 62 mm[Hg] Peggy Muñoz MD Work Phone: [facility] 11-05-2024 10:19-0400 Heart rate 73 /min Peggy Muñoz MD Work Phone: [facility] 11-05-2024 10:19-0400 Systolic blood pressure 141 mm[Hg] Peggy Muñoz MD Work Phone: [facility] 09-22-2024 16:40-0500 Diastolic blood pressure 68 mm[Hg] Peggy Muñoz MD Work Phone: [facility] 09-22-2024 16:40-0500 Heart rate 73 /min Peggy Muñoz MD Work Phone: [facility] 09-22-2024 16:40-0500 Respiratory rate 16 /min Peggy Muñoz MD Work Phone: [facility] 09-22-2024 16:40-0500 SaO2% (BldA) [Mass fraction] 92 % Peggy Muñoz MD Work Phone: [facility] 09-22-2024 16:40-0500 Systolic blood pressure 145 mm[Hg] Peggy Muñoz MD Work Phone: [facility] 09-22-2024 15:55-0500 Body temperature 97.4 [degF] Peggy Muñoz MD Work Phone: [facility] 09-22-2024 15:25-0500 Inhaled oxygen flow rate 6 L/min Peggy Muñoz MD Work Phone: [facility] 09-22-2024 12:02-0500 Body height 173.99 cm Peggy Muñoz MD Work Phone: [facility] 09-22-2024 12:02-0500 Body weight 140.7 kg Peggy Muñoz MD Work Phone: [facility] 09-18-2024 08:08-0500 Body height 180.34 cm [facility] 09-18-2024 08:08-0500 Body mass index (BMI) [Ratio] 43.1 kg/m2 [facility] 09-18-2024 08:08-0500 Body weight 140.21 kg [facility] Encounters Encounter Date Encounter Type Care Provider Facility Start: 01-21-2025 End: 01-21-2025 Clinisync Result Encounter Oriana Salmeron MD Work Phone: [facility] Unsolicited Start: 01-21-2025 End: 01-21-2025 Clinisync Result Encounter Oriana Salmeron MD Work Phone: [facility] Unsolicited Start: 01-19-2025 End: 01-19-2025 ambulatory Peggy Muñoz Facility:[facility] Start: 01-18-2025 End: 01-18-2025 Bamboo flowsheet [...] underlying condition with diabetic polyneuropathy, unspecified whether intermediate insulin use (HCC); Pain due to onychomycosis of toenails of both feet Start: 01-12-2025 ambulatory NON STAFF Facility:[facility] Start: 01-08-2025 End: 01-08-2025 ambulatory Peggy Muñoz Facility:[facility] Start: 12-30-2024 ambulatory [facility] Start: 2024 End: 2024 Office outpatient new 30 minutes Mary Lomax MD Work Phone: [facility] Comment on above: Abnormal findings on diagnostic imaging of gallbladder (Primary Dx) Start: 2024 End: 2024 ambulatory [facility] Start: 12-18-2024 End: 12-18-2024 ambulatory [facility] Start: 12-18-2024 End: 12-18-2024 ambulatory [facility] Start: 11-26-2024 End: 11-26-2024 Patient encounter procedure Peggy Muñoz MD Work Phone: [facility] [place] Work Phone: Start: 11-26-2024 End: 11-26-2024 ambulatory Peggy Muñoz MD Work Phone: [facility] Work Phone: Start: 11-18-2024 End: 11-18-2024 ambulatory Peggy Muñoz MD Work Phone: [facility] Work Phone: Start: 11-18-2024 End: 11-18-2024 Departed Referred Peggy Muñoz MD Work Phone: [facility]-LAB Path [facility] Start: 11-05-2024 End: 11-05-2024 Patient encounter procedure Peggy Muñoz MD Work Phone: [facility] [place] Work Phone: Start: 11-05-2024 End: 11-05-2024 ambulatory Peggy Muñoz MD Work Phone: [facility] Work Phone: Start: 11-05-2024 End: 11-05-2024 ambulatory Peggy Muñoz MD Work Phone: [facility] Work Phone: Start: 11-05-2024 End: 11-05-2024 Patient encounter procedure Peggy Muñoz MD Work Phone: [facility] Phys[facility] Work Phone: Start: 11-02-2024 End: 11-02-2024 ambulatory Peggy Muñoz MD Work Phone: [facility] Work Phone: Start: 11-02-2024 End: 11-02-2024 Patient encounter procedure Peggy Muñoz MD Work Phone: [facility] Physician [facility] Orthoped[facility] Work Phone: Start: 11-02-2024 End: 11-02-2024 Patient encounter procedure Peggy Muñoz MD Work Phone: [facility] Start: 11-02-2024 End: 11-02-2024 ambulatory Peggy Muñoz MD Work Phone: [facility] Work Phone: Start: 10-20-2024 End: 10-20-2024 ambulatory Peggy Muñoz MD Work Phone: [facility] Work Phone: Start: 10-20-2024 End: 10-20-2024 Departed Referred Peggy Muñoz MD Work Phone: [facility] Start: 10-07-2024 End: 10-07-2024 ambulatory Peggy Muñoz MD Work Phone: [facility] Work Phone: Start: 10-07-2024 End: 10-07-2024 Patient encounter procedure Peggy Muñoz MD Work Phone: [facility] Physician [facility] Work Phone: Start: 09-22-2024 End: 09-22-2024 Admission to same day surgery center Peggy Muñoz MD Work Phone: [facility] [place] Start: 09-22-2024 End: 09-22-2024 ambulatory Peggy Muñoz MD Work Phone: [facility] Work Phone: Start: 09-22-2024 Non-patient / Non-visit Vi Muñoz MD Work Phone: [facility] Physician [facility] Work Phone: Start: 09-21-2024 End: 09-21-2024 Patient encounter procedure Peggy Muñoz MD Work Phone: [facility]-Pre-Surgical Testing Work Phone: Start: 09-21-2024 End: 09-21-2024 ambulatory Peggy Muñoz MD Work Phone: [facility] Work Phone: Start: 09-21-2024 Encounter for preprocedural laboratory examination Geoffrey Ibrahim [facility] Physician [facility] Start: 09-18-2024 End: 09-18-2024 ambulatory [facility] Work Phone: Start: 09-18-2024 End: 09-18-2024 Patient encounter procedure [facility] Physician [facility] Work Phone: Start: 05-14-2024 End: 05-14-2024 ambulatory [facility] Start: 05-01-2024 Encounter for other preprocedural [...] Start: 01-10-2023 ambulatory Truman FUNES Facilit y:[facility] [place] Start: 01-09-2023 ambulatory Truman FUNES Facilit y:[facility] [place] Start: 11-09-2022 End: 11-10-2022 ambulatory Nat Petr TREVOR [facility] Start: 07-27-2022 End: 07-28-2022 ambulatory Truman COLEWOOD [facility] Start: 07-02-2022 End: 07-03-[address] PEGGY MUÑOZ Facility:[facility] Start: 06-15-2022 End: 06-16-2022 ambulatory Nat Humphreys TREVOR [facility] Start: 04-27-2022 End: 04-28-2022 ambulatory Truman FUNES [facility] Start: 12-22-[address] PEGGY MUÑOZ Facility :[facility] Start: 10-03-[address] PEGGY MUÑOZ Facility :[facility] Procedures Date Procedure Procedure Detail Performing Clinician Start: 01-21-2025 ALL AMMONIA Oriana Diane MD Work Phone: Start: 11-26-2024 CT of abdomen with contrast [...] 2025 Adult BMI Screening Adult BMI Screening [facility] Start: 2025 Tobacco Screening Tobacco Screening [facility] Start: 04-01-2025 End: 04-01-2025 Patient encounter procedure 04/01/2025 9:20 AM EDT Office Visit [facility] [address] [facility] [address] [place] [address] Crispin Early DPM [address] [facility] [address] [place] [address] [facility] Start: 03-29-2025 Influenza vaccination [facility] Start: 11-18-2024 Bacteria identified in Urine by Culture Urine Culture [facility] Start: 11-18-2024 Urine culture [facility] Start: 11-05-2024 Actin smooth muscle IgG Ab [Units/volume] in Serum [facility] Start: 11-05-2024 Sleea-5-goirlebvsqk.tumor marker [Mass/volume] in Serum or Plasma [facility] Start: 11-05-2024 Ceruloplasmin [Mass/volume] in Serum or Plasma [facility] Start: 11-05-2024 Hepatitis A virus Ab [Presence] in Serum by Immunoassay [facility] Start: 11-05-2024 Hepatitis A virus antibody, IgM type [facility] Start: 11-05-2024 Hepatitis B core antibody measurement [facility] Start: 11-05-2024 Hepatitis B core antibody measurement, IgM type [facility] Start: 11-05-2024 Hepatitis B virus surface Ab [Presence] in Serum [facility] Start: 11-05-2024 IgG [Mass/volume] in Serum or Plasma [facility] Start: 11-05-2024 Lipoprotein a [Moles/volume] in Serum or Plasma [facility] Start: 11-05-2024 Mitochondria M2 IgG Ab [Units/volume] in Serum [facility] Start: 11-05-2024 [facility] Start: 11-02-2024 Plain X-ray of left elbow XR elbow LT 2V [facility] Start: 11-02-2024 XR Elbow - left 2 Views [facility] Start: 10-20-2024 Urine culture [facility] Start: 10-20-2024 Bacteria identified in Urine by Culture Urine Culture [facility] Start: 10-07-2024 Plain X-ray of left elbow XR elbow LT 2V [facility] Start: 10-07-2024 XR Elbow - left 2 Views [facility] Start: 09-22-2024 [facility] Start: 09-22-2024 [facility] Start: 09-22-2024 Plain X-ray of left elbow XR elbow LT min 3V* [facility] Start: 09-22-2024 XR Elbow - left GE 3 Views [facility] Start: 03-29-2024 COVID-19 Vaccine ( season) COVID-19 Vaccine ( season) [facility] Start: 2022 Abdominal aortic aneurysm screening Abdominal Aortic Aneurysm (AAA) Screen [facility] Start: 2022 Fall Risk Screening Fall Risk Screening [facility] Start: 12-30-2007 Administration of varicella zoster vaccine Zoster (Shingles) Vaccine (1 of 2) [facility] Start: 12-30-2007 Pneumococcal Vaccine: 65+ Years (1 of 1 - PCV) Pneumococcal Vaccine: 65+ Years (1 of 1 - PCV) [facility] Start: 1976 DTaP,Tdap and Td Vaccines (1 - Tdap) DTaP,Tdap and Td Vaccines (1 - Tdap) [facility] Start: 1976 Urine screening for protein Diabetes: Urine Protein Screening [facility] Start: 12-30-1975 Adult BMI Follow Up Plan Adult BMI Follow Up Plan [facility] Start: 1969 Depression Screening Depression Screening [facility] Start: 12-30-1967 Glaucoma screening Diabetes: Retinopathy Screening [facility] Start: 1955 Hemoglobin A1c measurement Diabetes: Hemoglobin A1C [facility] Start: 1955 Medicare Annual Wellness (AWV) Medicare Annual Wellness (AWV) [facility] Start: 1955 Screening for malignant neoplasm of colon [facility] Actin smooth muscle IgG Ab [Units/volume] in Serum [facility] Alpha 1 antitrypsin [Mass/volume] in Serum or Plasma [facility] Alpha 1 antitrypsin [Mass/volume] in Serum or Plasma [facility] Alpha 1 antitrypsin phenotyping [Identifier] in Serum or Plasma by Immunofixation [facility] Eaffn-3-xnsxwzaabcw. tumor marker [Mass/volume] in Serum or Plasma [facility] Ceruloplasmin [Mass/volume] in Serum or Plasma [facility] Comprehensive metabo lic 2000 panel - Serum or Plasma [facility] Hepatitis A virus Ab [Presence] in Serum by Immunoassay [facility] Hepatitis A virus antibody, IgM type [facility] Hepatitis B core ant ibody measurement [facility] Hepatitis B core ant ibody measurement, IgM type [facility] Hepatitis B virus garcia rface Ab [Presence] in Serum [facility] Hepatitis B virus garcia rface Ag [Presence] in Serum or Plasma by Immunoassay [facility] Hepatitis C virus Ig G Ab [Presence] in Serum or Plasma by Immunoassay [facility] HFE gene mutations f ound [Identifier] in Blood or Tissue by Molecular genetics method Nominal [facility] Homogenous nuclear A b pattern [Titer] in Serum [facility] IgG [Mass/volume] in Serum or Plasma [facility] Lipoprotein a [Moles/volume] in Serum or Plasma [facility] Mitochondria M2 IgG Ab [Units/volume] in Serum [facility] Nuclear Ab [Titer] i n Serum [facility] Patient Education Know your Meds [facility] Work Phone: Patient referral [facility] Work Phone: [facility] Immunizations Immunization Date Immunization Notes Care Provider Fa cility 06-20-2020 influenza virus vaccine, unspecified formulation Mennatallah Dami MD Work Phone: [facility] Payers Date Payer Category Payer Private Health Insurance [id number] 2024 Medicare (Managed Care) [facility] MEDICARE [id number] 2024 Medicare HMO [employer] [id number] 2024 Medicare [id number] 2023 Unknown [id number] Self-pay 1955 Unknown [id number] 2.16.840.1.564904.3.579 .2.593 1955 Unknown [id number] 2.16.840.1.582907.3.579 .2.593 1955 Unknown [id number] 2.16.840.1.875269.3.579 .2.593 1955 Unknown [id number] 2..840.1.030409.3.579 .2.727 1955 Unknown [id number] 2..840.1.888201.3.579 .2.1286 1955 Unknown [id number] 2.840.1.089527.3.579 .2.128 1955 Unknown [id number] 2.840.1.465367.3.579 .2.128 1955 Unknown [id number] 2.0.1.192552.3.579 .2.128 1955 Unknown [id number] 2.0.1.544047.3.579 .2.128 1955 Unknown [id number] 2.0.1.993768.3.579 .2.1259 Medicare [id number] Private Health Insurance [employer] [id number] Unknown [id number] Unknown [facility] [id number] Unknown [id number] 2.840.1.501432.3.579 .2.531 Unknown [id number] 2.840.1.349177.3.579 .2.531 Unknown [id number] 2.840.1.709635.3.579 .2.531 Unknown [id number] 2.840.1.087173.3.579 .2.531 Unknown [id number] 2.840.1.590649.3.579 .2.531 Unknown [id number] 2.840.1.134752.3.579 .2.531 Unknown [id number] Unknown [id number] .2.531 Unknown [id number] .2.531 Unknown [id number] .2.531 Unknown [id number] .2.531 Worker's Compensation Minute Karen [facility] [id number] Social History Date Type Detail Facility Tobacco smoking stat [facility] Unknown if ever smoked [facility] Work Phone: Start: 1955 Sex Assigned At Male F [facility] Start: 07-24-2019 Tobacco smoking stat [facility] Current some day smoker [facility] Start: 03-01-2015 End: 09-18-2024 Sex Male (finding) [facility] Start: 09-21-2024 End: 2024 Tobacco smoking status NHIS Ex-smoker (finding) [facility] History of tobacco use Current smoker [facility] History of tobacco use Cigarette Smoker P [facility] Start: 2024 Tobacco use and exposure Smokeless tobacco non-user [facility] Start: 2024 Alcoholic beverage intake Ex-drinker (finding) [facility] Start: 01-07-2019 End: 2024 History of Social function [facility] Start: 01-07-2019 End: 2024 Tobacco use panel [facility] Childcare Unknown [facility] Start: 1955 Sex assigned at Not on file P [facility] Start: 01-18-2025 Tobacco smoking stat [facility] Tobacco smoking consumption unknown [facility] Medical Equipment Procedure Code Equipment Code Equipment Origin al Text Equipment Identifier Dates Open reduction and internal fixation of fracture of humerus Elbow radius prosthesis [id number] FDA Start: 09-22-2024 Open reduction and internal fixation of fracture of humerus Elbow radius prosthesis [id number] [facility] Start: 09-22-2024 Goals Date Patient Goal Desired [...] Insecurity: No Food Insecurity (2024) Received from [facility] Hunger Screening Within the past 12 months [...] Partner Violence: Unknown (09/19/2023) Received from [facility] Safety & Environment Fear of Current or [...] and negative PT pedal pulses NEURO: 5.07 [place] Nayana monofilament test diminished to digits and forefoot bilaterally 125Hz tuning fork diminished to 1st MPJ bilaterally ORTHO: Positive pain on palpation to toenails of the left 1,2,3,4,5 toes and right 1,2,3,4,5 toes ASSESSMENT 1. Venous insufficiency 2. Diabetes mellitus due to underlying condition with diabetic polyneuropathy, unspecified whether intermediate insulin use (HCC) 3. Pain due to [...] edema. Discussed condition in detail. Recommendation for hunu-kuw-izvosle compression stockings at this time and may consider prescription stockings in the future. Crispin Early DPM documented in this encounter [facility] 2024 History of Present illness [...] hospital, he was recently discharged from his long-term. This morning and this was associated with [...] Interpersonal Safety: Unknown (09/19/2023) Received from [facility] Safety & Environment Fear of Current or [...] results found for: INR , PROTIME From [place] 12/14/2024 Ammonia 43, high WBC 4.7, hemoglobin 10.3, platelets a 138 Lipase 125, 214, upper limit is 77 < 3x upper limit Sodium 141, BUN 55, creatinine 1 point 6, total bilirubin 1.8, AST 132, ALT 104, alkaline phosphatase 244, albumin 1.2 Imaging: Ultrasound right upper quadrant at [facility] performed 12/11/2024 Liver has lobulated margins [...] patient/family/caregiver Referring and communicating with other health prompt care rn Mary Lomax MD [facility] [place] documented in this encounter [facility] 12-17-2024 Note Received referral fo r patient from PCP Dr. Peggy Muñoz. Dx: chronic cholelithiasis with pancreatitis and a history of liver disease. Called patient to schedule, but no answer and VM not set up. Reached out to spouse SHABANA who reports that patient currently at [facility] but she and patient unwilling to travel to [place] for consult/treatment. Reports she cannot transport him due to distance. Declines referral at this time and will seek care closer in proximity to their hometown. [facility] 11-26-2024 Radiology Diagnostic study note [facility] [place] [address] [place] [address] CT Scan Report Signed Patient: Gerson Penn MR#: [id number] : 1955 Acct:[id number] Age/Sex: 68 / M ADM Date: 5 Loc: CT Room: Type: [facility] Attending Dr: Derrek Rodgers MD Copies [...] effusions. Impression dictated by: Gage Noland Jr., D.OBranden 11/26/2024 3:27 PM Dictation Location: [place] [address] Transcribed By: [facility] 11/26/24 1527 Dictated By: Gage Noland Jr, DO 11/26/24 1519 Signed By: 11/26/24 1527 [facility] 11-05-2024 Evaluation note Authored November 05, [...] kidney function Will arrange for screening colonoscopy [facility] Work Phone: 1(349) 405-776602-21-2025 Evaluation note* Diagnosis Onset Date Resolution Status Admit Date Fracture of coronoid process of left ulna acute September 18, 2 025 7:49am Fracture of radial head, left, closed acute September 18, 2 025 7:49am [facility] Work Phone: 1(952) 280-927602-21-2025 Evaluation note* Diagnosis Onset Date Resolution Status Admit Date Fracture of coronoid process of left ulna acute September 18, 2 025 7:49am Fracture of radial head, left, closed acute September 18, 025 7:49am Fracture of coronoid process of left ulna acute October 07, 2024 8:05am Fracture of radial head, left, closed acute October 07, 2024 8:05am Other specified postprocedural states noneactive September 8:05am [facility] Work Phone: 1(422) 462-480502-21-2025 Evaluation note* Diagnosis Onset Date Resolution Status [...] postprocedural states noneactive November 02, 2024 9:55am [facility] Work Phone: 1(346) 947-684210-17-2024 NotePatient: Gerson Penn Procedure Information Date/Time: 05/14/24 1200 Procedures: Coronary angiography Right heart cath Location: [facility] CHARGE HAND 2 BIPLANE / [facility] (Cath) Providers: Taj Otero [...] with attending. 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 [facility]No assessment information [facility] Work Phone: Evaluation note* Diagnosis Onset Date Resolution Status Admit Date Fracture of coronoid process of left ulna acute September 18, 2 025 7:49am Fracture of radial head, left, closed acute September 18, 2 025 7:49am [facility] Work Phone: Evaluation note* Author Derrek Rodgers [facility] Authored November 05, 2024 11: 08am [...] kidney function Will arrange for screening colonoscopy [facility] Work Phone: Evaluation note* Diagnosis Abnormal findings on diagnostic imaging of gallbladder- Primary documented [facility] this [facility] Diagnosis Venous insufficiency- Primary Unspecified venous (peripheral) insufficiency Diabetes mellitus due to underlying condition with diabetic polyneuropathy, unspecified whether terminal make up operator insulin use (HCC) Pain due to onychomycosis of toenails of both feet documented in this encounter [facility] on filedocumented [facility] Summary Purpose Family History No Family History [...] Reason for Visit Chief Complaint Admit Date MANAGER DEMAND LT ELBOW FX [facility] 2024 7:49am Reason for Visit Admit Date Fracture of coronoid process of left uln a September 18, 2024 7:49am Fracture of radial head, left, closed Fe bruary 2024 7:49am Chief Complaint Admit Date MANAGER DEMAND LT ELBOW FX [facility] 2024 7:49am Left Radial Head Fracture September 21, 2024 7:38am Chief Complaint Admit Date MANAGER DEMAND LT ELBOW FX [facility] 2024 7:49am Left Radial Head Fracture September 21, 2024 7:38am Left Radial Head Fracture September 22, 2024 7:29am Left Radial Head Fracture September 22, 2024 10:58am Chief Complaint Admit Date MANAGER DEMAND LT ELBOW FX [facility] 2024 7:49am Left Radial Head [...] 8:05am Fracture of radial head, left, closed [facility] 2024 8:05am Other specified postprocedural states [facility] 2024 8:05am Chief Complaint Admit Date MANAGER DEMAND LT ELBOW FX [facility] 2024 7:49am Left Radial Head Fracture September 21, 2024 7:38am Left Radial Head Fracture September 22, 2024 7:29am Left Radial Head Fracture September 22, 2024 10:58am 3 weeks post op October 07, 2024 8:0 5am S52.122A - Displaced fracture of head of left radi October 07, 2024 8:07am Unknown October 20, 2024 6:2 0pm Chief Complaint Admit Date MANAGER DEMAND LT ELBOW FX [facility] 2024 7:49am Left Radial Head Fracture [...] 8:05am Fracture of radial head, left, closed [facility] 2024 8:05am Other specified postprocedural states [facility] 2024 8:05am Fracture of coronoid process of left uln a November 02, 2024 9:55am Fracture of radial head, left, closed [facility] 2024 9:55am Other specified postprocedural states Ap r[facility] 2024 9:55am Chief Complaint Admit Date MANAGER DEMAND LT ELBOW FX [facility] 2024 7:49am Left Radial Head Fracture [...] 05, 2024 10:08am Chief Complaint Admit Date MANAGER DEMAND LT ELBOW FX [facility] 2024 7:49am Left Radial Head [...] 2024 11: 25am Chief Complaint Admit Date MANAGER DEMAND LT ELBOW FX CT [facility] 2024 7:49am Left Radial Head Fracture September [...] 2024 12: 30pm Chief Complaint Admit Date MANAGER DEMAND LT ELBOW FX CT [facility] 2024 7:49am Left Radial Head Fracture [...] section and content) DATE CREATED AUTHOR 06/17/2020 [facility] DATE CREATED AUTHOR AUTHOR'S ORGANIZ ATION 07/07/2022 [facility] DATE CREATED AUTHOR AUTHOR'S ORGANIZ ATION 04/20/2023 [facility] DATE CREATED AUTHOR AUTHOR'S ORGANIZ ATION 12/24/2024 [facility] DATE CREATED AUTHOR AUTHOR'S ORGANIZ ATION 12/31/2024 [facility] DATE CREATED AUTHOR AUTHOR'S ORGANIZ ATION 01/19/2025 [facility] DATE CREATED AUTHOR AUTHOR'S ORGANIZ ATION 01/22/2025 [facility] Goals (unrecognized section and content) Goals may be documented in a n alternate sectionGoals may be documented in an alternate sectionGoals may be documented in an alternate sectionNot on filedocumented as of this encounter Care Teams (unrecognized sec tion and content) Team Status: Active Member Role Status Dates Peggy uMñoz MD Primary Care Provider Active Team Status: [...] November 26, 2024 End: November 26, 2024 Equipment Records Supervisor Relationship Specialty Start Date End Date Peggy Muñoz MD [address] [place] [address] PCP - General Family Medicine 12/22/24 Equipment Records Supervisor Relationship Specialty Start Date End Date Unallocated, Janey Odell MD [facility] [address] PCP - General Family Medicine 10/26/24 Equipment Records Supervisor Relationship Specialty Start Date End Date Unallocated, [place] [address] PCP - General Family Medicine 10/26/24 Equipment Records Supervisor Relationship Specialty Start Date End Date Unallocated, Noms Provider, [address] [place] [address] PCP - General Family Medicine 10/26/24 Reason [...] ON THE PRIMARY CLINICAL RECORDS. [facility] [employer] [facility]. provides no warranty or guarantee of the accuracy or completeness of information in this document.
[2025-01-26 02:51] LABS: Ammonia 28 umol/L (11-32)
== END 2025-01-26 02:16 | disposition home or self-care (01) ==
LOC: LAB 02:15
PROVIDERS: PCP Family Medicine; Visit Provider Family Medicine
DX: K76.9 Liver disease, unspecified (principal)
CPT/HCPCS: 36415; 82140

== ENCOUNTER 2025-01-27 13:43 | Inpatient (IN) | payer MEDICARE, SELFPAY ==
--- OUTSIDE RECORDS SUMMARY | 2024-09-21 07:00 | XMS_ITS ---
Author Organization [facility] Address [address] [place] [address] Care Team Providers Care Drapery Installer Name Role Phone Davidchristen Desmond Primary Care Provider Ronald Reyes Unavailable [phone] REASON FOR VISIT LEFT ELBOW FX Medications Medication SIG (Take, Route, Frequency, Duration) Notes Start Date End Date Status zinc sulfate 220 mg (as elemental zinc 50 mg) 1 cap(s) orally once a day Active spironolactone 25 mg 1 tab(s) orally onc e a day Active Coreg 3.125 mg 1 tab(s) orally 2 ti mes a day Active Klor-Con 20 mEq 1 PKT(S) orally 2 ti mes a day Active Lasix 20 mg 1 tab(s) orally once a day Active lisinopril 2.5 mg 1 tab(s) orally once a day Active Actos 15 mg 1 tab(s) orally once a day Active Encounters Encounter Location Date Provider Diagnosis [facility] Office [address] [place] [address] [place] [address] 09/21/2024 Ronald Beck Plan Of Treatment No Information Progress Notes * JAZMYNE PENN ADOB:09/1955 (69 yo M)Acc No.[id number]:09/21/2024 Patient: Christy JAZMYNE KEN Provider: Andreas Beck MD :1955 A ge:68 Y S ex:Male Date:09/21/2024 Address:[address] [place] [address] Pcp:Desmond Muñoz Subjective: * Chief Complaints: * 1 . LEFT ELBOW FX. * Medical History: * Medications: T aking Actos 15 mg tablet 1 tab(s) orally once a day , Taking lisinopril 2.5 mg tablet 1 tab(s) orally once a day , Taking zinc sulfate 220 mg (as elemental zinc 50 mg) capsule 1 cap(s) orally once a day , Taking Lasix 20 mg tablet 1 tab(s) orally once a day , Taking Klor-Con 20 mEq powder for reconstitution 1 PKT(S) orally 2 times a day , Taking Coreg 3.125 mg tablet 1 tab(s) orally 2 times a day , Taking spironolactone 25 mg tablet 1 tab(s) orally once a day Objective: * Vitals: Assessment: Plan: * Treatment: Forms: * Images: * Electronic signature of Magnus Beck MD on 01/27/2025 at 01:52 PM EDT Sign off status: Pending * Provider: Andreas Beck MD Date: 09/21/2024 Generated for Niurka hinkle/Tomy/Deonnaitting on: 0 01/27/2025 01:52 PM EDT
--- OUTSIDE RECORDS SUMMARY | 2025-01-11 05:11 | XMS_ITS ---
Author Organization [facility] in [place] Address [address] [place] [address] Care Team Providers Care Drainman Name Role Phone Paulino Muñoz Primary Care Provider REASON FOR VISIT ecoli Encounters Encounter Location Date Provider Diagnosis [address] [place] [address] 01/11/2025 Paulino Muñoz Plan Of Treatment Next Appt Details Provider Name:Paulnio Muñoz, 09:45:00 AM, [address] [facility], [facility], [place], [address], Provider Name:Paulino Muñoz, 09:30:00 AM, [address] [place] [address], [facility], [place], [address], Progress Notes * Gerson RUSSELL ADOB:09/1955 (69 yo M)Acc No.[id number]:01/11/2025 Patient: Christy Gerson KEN :1955 A ge:69 Y S ex:Male Address:[address], [place], [address] * true * Date: Generated for Printi ng/Faxing/eTransmitting on: 01/27/2025 01:52 PM EDT
--- OUTSIDE RECORDS SUMMARY | 2025-01-26 12:23 | XMS_ITS ---
Author Organization [facility] [place] Address [address] [place] [address] Care Team Providers Care Maitre D' Name Role Phone Paulino Muñoz Primary Care Provider REASON FOR VISIT tcm- CALL SATURDAY Encounters Encounter Location Date Provider Diagnosis [place] [address] [facility] [place] [address] 01/26/2025 Paulino Muñoz Plan Of Treatment Next Appt Details Provider Name:Paulino Muñoz, 09:45:00 AM, [address] [facility], [address], [place], [address], Provider Name:Paulino Muñoz, 09:30:00 AM, [address] [place] [address], [address], [place], [address], Progress Notes * Gerson RUSSELL ADOB:09/1955 (69 yo M)Acc No.[id number]:01/26/2025 UNLOCKED PROGRESS NOTE Patient: Christy Gerson KEN :1955 A ge:69 Y S ex:Male Address:[address] [place], [address] * * Date:
[2025-01-27] VITALS (32 sets, daily range): BP systolic 52–157; BP diastolic 34–85; PULSE 88–94; TEMP 36.5–36.6; O2SAT 88–99; BMI 52.2; BMI 38.6
--- OUTSIDE RECORDS SUMMARY | 2025-01-27 13:53 | XMS_ITS | Patient Health Record ---
Author Organization [facility] Address [address] [place] [address] Care Team Providers Care Chief Compressor Station Engineer Name Role Phone Toni Desmond Primary Care Provider Ronald Reyes Unavailable [phone] Allergies No Known Allergies Results Component Value Reference Range Notes CT ELBOW LEFT WITHOUT CONTRA ST Reviewed date:10/15/2024 01:12:21 PM Interpretation: Performing Lab: Notes/Report: Reason For Referral Reason [facility].......PLEASE OBT AIN AUTHORIZATION FOR LEFT ELBOW CAT SCAN Diagnosis 1 Left elbow pain (M25 .522) Referral Organization [facility] Referring Provider First Name Ronald Referring Provider Last Name Ebony Referring Provider Speciality Orthopedic Surgery Referred Organization [facility] nolan Referred Address [place], [place], Procedure [address] CT Upper Ext w/o Dye ([address]) General Notes Aura Mcknight 2024 09:21:48 AM > no precert required per [facility] portal, insurance is active, confirmation scanned inJadiel Monica 09/08/2024 09:27:34 AM > faxed to depew Referral Priority Stat Medications Medication SIG (Take, Route, Frequency, Duration) Notes Start Date End Date Status zinc sulfate 220 mg (as elemental zinc 50 mg) 1 cap(s) orally once a day Active lisinopril 2.5 mg 1 tab(s) orally once a day Active Actos 15 mg 1 tab(s) orally once a day Active spironolactone 25 mg 1 tab(s) orally onc e a day Active Coreg 3.125 mg 1 tab(s) orally 2 ti mes a day Active Klor-Con 20 mEq 1 PKT(S) orally 2 ti mes a day Active Lasix 20 mg 1 tab(s) orally once a day Active Social History AUDIT-C (Standard) Question Answer Notes Did you have a drink containing alcohol in the p ast year? No Points 0 Interpretation Negative Problems Problem Type SNOMED Code ICD Code Onset Dates Problem Status W/U Status Risk Notes Problem Left elbow pain (M25.522) Active confirmed Problem 70612866 Displaced fracture of head of left radius, initial encounter for closed fracture (S52.122A) Active confirmed Vital Signs Height 4xp85ix in 09/07/2024 Weight 340 lbs 09/07/2024 BMI 47.42 09/07/2024 Encounters Encounter Location Date Provider Diagnosis [facility] [address] [place] [address] 09/07/2024 Ronald Beck Left elbow pain M25.522 and Displaced fracture of head of left radius, initial encounter for closed fracture S52.122A [facility] Office [address] [place] [address] 09/10/2024 Ronald Beck Assessments Encounter Date Diagnosis (ICD Code) Assessment Notes Treatment Notes Treatment Clinical Notes Section Notes 09/07/2024 Left elbow pain (ICD-10 - M25.522) 09/07/2024 Displaced fracture of head of left radius, initial encounter for closed fracture (ICD-10 - S52.122A) 09/07/2024 Other For his left radial head fracture I recommended a CT scan and surgical intervention. We have had a lengthy discussion and he does not want any surgery for his elbow and he understands that this fracture would likely not heal and this would give him chronic problems. He seems to have a clear understanding and it is just his preference to treat this conservatively and he is willing to accept the dysfunction. He will follow-up in 2 weeks to repeat x-rays and reassess his progress. We will keep him immobilized in the interim. Import medication Plan Of Treatment No Information Insurance Providers Payer Name Payer Address Payer Phone Subscriber Number Group Number Insured Name Patient Relationship to Insured Coverage Start Date Coverage End Date [facility] [address] [address] [place] [phone] [id number] JAZMYNE SLATER Self - patient is the insured Medical (General) History Medical History History ICD Code Cancer, liver Kidney trouble Respiratory problems: Type II diabetes High Blood Pressure Sleep apnea CPAP Surgical History Surgery Date(Month/Year) Stents in lung
--- OUTSIDE RECORDS SUMMARY | 2025-01-27 13:53 | XMS_ITS | Clinical Summary ---
Author Organization [employer] Address [id number] [address] [place] [address] Care Team Providers Care Heat Treat Furnace Operator Name Role Phone Desmond Muñoz MD [...] Office Visit [facility] [address] [place] [address] Tiara Lomax MD Abnormal findings on diagnostic imaging of gallbladder (Primary Dx) 2024 Travel 12/18/2024 Telephone [facility] [address] [place] [address] Tiara Lomax MD 12/14/2024 3:50 PM EDT Ancillary Procedure [facility] [address] [place] [phone] Pain 12/11/2024 7:40 AM EDT Ancillary Procedure [facility] [address] [place] [phone] Pain 12/10/2024 7:15 PM EDT Ancillary Procedure [facility] [address] [place] [phone] Pain 11/18/2024 5:15 PM EDT Ancillary Procedure [facility] [address] [place] [phone] Pain from Last 3 Months Family History [...] ORDERABLES Fin al Result Performing Organization Address City/[facility] Co de Phone Number MANUALLY TRANSCRIBED RESULTS * CT abdomen and pelvis with contrast (12/10/2024 7:15 PM EDT) Only the most recent of2 resultswithin the time period is included. us Scanning Provider External IMG CT ORDERABLES Fin al Result Performing Organization Address [facility] Co de Phone Number MANUALLY TRANSCRIBED RESULTS from Last 3 Months Insurance [employer] MEDICARE Care Teams Heat Treat Furnace Operator Relationship Specialty Start Date End Date Desmond Muñoz MD [address] [facility] [place] [address] PCP - General Family Medicine 12/22/24
--- OUTSIDE RECORDS SUMMARY | 2025-01-27 13:54 | XMS_ITS | Clinical Summary ---
Author Organization [facility] Address [address] [place] [address] Phone Care Team Providers Care Customer Sales Representative Name Role Phone Unavailable Primary Care Provider [...]
--- OUTSIDE RECORDS SUMMARY | 2025-01-27 13:54 | XMS_ITS | Encounter Summary ---
Author Organization [facility] Address [id number] [address] [place] [address] Care Team Providers Care Terminal System Operator Name Role Phone Desmond Muñoz MD Primary Care Provider [phone] Encounter Details Date Type Department Care Team (Late st Contact Info) Description 12/18/2024 Telephone [facility] [address] [place] [address] Tiara Lomax MD [address] [place] [address] Social History Tobacco Use Types [...] She stated Gerson was currently in a long term and she would call the office back to schedule once he's been released. documented in this encounter Plan of Treatment Not on file documented as of this encounter Visit Diagnoses Not on filedocumented in this encounter Care Teams Terminal System Operator Relationship Specialty Start Date End Date Desmond Muñoz MD [address] [place], [place] [address] PCP - General Family Medicine 12/22/24 documented as of this encounter
--- NOTE | 2025-01-27 14:00 | XR_ITS ---
The [address] [address] Patient Name: JAZMYNE PENN MRN: [id number] date: 1955 Sex: M Assigned Patient Location: ER Current Patient Location: ER Accession/Order Number: [id number] Exam Date: 01/27/2025 15:02 Report Date: 01/27/2025 15:03 At the request of: ARNOLD BOYLE MD Procedure: XR chest 1V Single view chest: CLINICAL HISTORY: weak COMPARISON: Chest 12/11/2024 FINDINGS: Low lung volumes. No consolidation pneumothorax pleural effusion or free air. Heart appears normal in size. XR/XR chest 1V IMPRESSION: NEGATIVE CHEST. Impression dictated by: Gage Noland Jr., D.OBranden 01/27/2025 3:03 PM Dictation Location: [place] [address] Electronically authenticated by: [id number] Y Date: 01/27/2025 15:03
--- NOTE | 2025-01-27 14:00 | ECG_ITS ---
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 Measurements Intervals [place] Rate: 92 P: 30 MN: 190 QRS: 7 QRSD: 90 T: 47 QT: 358 QTc: 408 Interpretive Statements 1100 Sinus rhythm 0102 ARTIFACT PRESENT 9110 normal ECG Compared to ECG 01/06/2025 22:24:57 No significant changes Electronically Signed On 01-28-2025 18:22:49 EDT by TAJ OTERO M.D.
--- NOTE | 2025-01-27 14:01 | CT_ITS ---
The [address] [address] Patient Name: JAZMYNE PENN MRN: [id number] date: 1955 Sex: M Assigned Patient Location: ER Current Patient Location: ER Accession/Order Number: [id number] Exam Date: 01/27/2025 15:03 Report Date: 01/27/2025 15:06 At the request of: ARNOLD BOYLE MD Procedure: CT head/brain wo con CT BRAIN WITHOUT CONTRAST: CLINICAL HISTORY: Confusion COMPARISON: CT brain 01/06/2025 TECHNIQUE: Contiguous axial unenhanced images were obtained through the brain. This CT exam was performed using one or more following dose reduction techniques: Automated exposure control, adjustment of the mA and/or kV according to patient size, or use of iterative reconstruction technique. FINDINGS: There is no evidence of midline shift, intra or extra-axial fluid collection, hemorrhage or CT evidence of stroke. Cortical atrophy similar to the prior study. Posterior fossa appears unremarkable. Visualized intraorbital contents demonstrate no acute findings. Mild right paranasal sinus disease. The surrounding soft tissues are normal. CT/CT head/brain wo con IMPRESSION: NO ACUTE INTRACRANIAL ABNORMALITY. Impression dictated by: Gage Noland Jr., D.O. 01/27/2025 3:06 PM Dictation Location: [place] [address] Electronically authenticated by: [id number] Y Date: 01/27/2025 15:06
--- NOTE | 2025-01-27 14:02 | ED.GENADUL1 ---
HPI HPI - General Adult General Chief complaint: Altered Mental Status Stated complaint: WEAKNESS Time Seen by Provider: 01/27/25 13:56 Source: patient, medical record and other Source information: ems Mode of arrival: ambulance Limitations: altered mental status History of Present Illness HPI narrative: 69-year-old male presents for low blood pressure. According to shelter staff this started today. His gives more history. She states he has been confused for the past couple days and has been talking about their son being under the bed. He does not seem to have any complaints of pain. He has not had a fever. He always has diarrhea, that is unchanged. No vomiting. states that he has a history of nonalcoholic cirrhosis. He was scheduled to go home from shelter tomorrow. Related Data Home Medications ?Medication ?Instructions ?Recorded ?Confirmed carvedilol 6.25 mg tablet 6.25 mg PO Q12H 05/27/23 01/07/25 furosemide 20 mg tablet 40 mg PO DAILY 05/27/23 01/07/25 potassium chloride 20 mEq 20 meq PO DAILY 05/27/23 01/07/25 tablet,extended release(part/cryst) (Klor-Con M) ezetimibe 10 mg tablet 10 mg PO DAILY 10/20/24 01/07/25 aspirin 81 mg capsule 81 mg PO DAILY 11/18/24 01/07/25 cyanocobalamin (vitamin B-12) 2,000 mcg PO DAILY 11/18/24 01/07/25 2,000 mcg tablet,extended release (Vitamin B-12 ER) ferrous sulfate 325 mg (65 mg 325 mg PO BID 11/18/24 01/07/25 iron) tablet (iron) canagliflozin 100 mg tablet 100 mg PO .QD 12/10/24 01/07/25 (Invokana) levothyroxine 50 mcg tablet 50 mcg PO .ACB 12/10/24 01/07/25 liothyronine 5 mcg tablet 5 mcg PO .ACB 12/10/24 01/07/25 sacubitril 24 mg-valsartan 26 mg 1 tab PO BID 12/10/24 01/07/25 tablet (Entresto) spironolactone 50 mg tablet 50 mg PO BID 12/10/24 01/07/25 Previous Rx's ?Medication ?Instructions ?Recorded lactulose 10 gram/15 mL oral 10 g (15 mL) PO TID #3,785 mL 11/20/24 solution canagliflozin 100 mg tablet 100 mg PO QD #30 tabs 12/14/24 (Invokana) citalopram 20 mg tablet 40 mg (2 x 20 mg) PO DAILY #60 tabs 12/14/24 food supplemt, lactose-reduced 1 ea PO BID #5,688 mL 12/14/24 (Ensure Active Protein-Muscle oral liquid) nystatin 100,000 unit/gram topical 1 applic topical BID #60 grams 12/14/24 powder (Nystop) quetiapine 25 mg tablet 50 mg (2 x 25 mg) PO HS #60 tabs 12/14/24 sacubitril 24 mg-valsartan 26 mg 2 tab PO BID #120 tabs 12/14/24 tablet (Entresto) sitagliptin phosphate 50 mg tablet 100 mg (2 x 50 mg) PO QD #60 tabs 12/14/24 (Januvia) amino acids-protein hydrolysate 15 1 ea PO BID #2,880 mL 01/08/25 gram-100 kcal/30 mL oral liquid pkt (Pro-Stat Sugar Free) duloxetine 60 mg capsule,delayed 60 mg PO QD #30 caps 01/08/25 release food supplemt, lactose-reduced 1 ea PO BID #5,688 mL 01/08/25 (Ensure Active Protein-Muscle oral liquid) lactulose 10 gram/15 mL oral 20 g (30 mL) PO TID #3,785 mL 01/08/25 solution Allergies Allergy/AdvReac Type Severity Reaction Status Date / Time No Known Drug Allergies Allergy Verified 01/27/25 13:46 Opioid HPI Opioid Management Most Recent Opioid Data: Last Pain Scale 5 01/07/25, 23:58 Last Pain Intensity 2 11/19/24, 14:26 Last ORT Total Score 0 01/07/25, 03:20 Last ORT Risk Category Low Risk 01/07/25, 03:20 Review of Systems ROS Narrative [facility] History (Updated 01/27/25 @ 15:58 by Hira Ulloa MD) Abrasion of elbow ?S50.319A - Abrasion of unspecified elbow, initial encounter (ICD-10) Head trauma ?S09.90XA - Unspecified injury of head, initial encounter (ICD-10) Fall ?W19.XXXA - Unspecified fall, initial encounter (ICD-10) Generalized weakness ?R53.1 - Weakness (ICD-10) Sepsis ?A41.9 - Sepsis, unspecified organism (ICD-10) Generalized weakness ?R53.1 - Weakness (ICD-10) Laceration of left forearm ?S51.812A - Laceration without foreign body of left forearm, initial encounter (ICD-10) Chest wall contusion ?S20.219A - Contusion of unspecified front wall of thorax, initial encounter (ICD-10) Head injury ?S09.90XA - Unspecified injury of head, initial encounter (ICD-10) Abdominal pain ?R10.9 - Unspecified abdominal pain (ICD-10) Severe protein-calorie malnutrition ?E43 - Unspecified severe protein-calorie malnutrition (ICD-10) Coagulopathy ?D68.9 - Coagulation defect, unspecified (ICD-10) Hyperbilirubinemia ?E80.6 - Other disorders of bilirubin metabolism (ICD-10) Lactic acidosis ?E87.20 - Acidosis, unspecified (ICD-10) Hyperkalemia ?E87.5 - Hyperkalemia (ICD-10) Thrombocytopenia ?D69.6 - Thrombocytopenia, unspecified (ICD-10) Acute pancreatitis ?K85.90 - Acute pancreatitis without necrosis or infection, unspecified (ICD-10) Cholelithiasis ?K80.20 - Calculus of gallbladder without cholecystitis without obstruction (ICD-10) Cirrhosis ?K74.60 - Unspecified cirrhosis of liver (ICD-10) Acute kidney injury superimposed on stage 1 chronic kidney disease ?N17.9 - Acute kidney failure, unspecified (ICD-10) ?N18.1 - Chronic kidney disease, stage 1 (ICD-10) Acute UTI ?N39.0 - Urinary tract infection, site not specified (ICD-10) Nausea vomiting and diarrhea ?R11.2 - Nausea with vomiting, unspecified (ICD-10) ?R19.7 - Diarrhea, unspecified (ICD-10) Hypovolemia ?E86.1 - Hypovolemia (ICD-10) Syncope ?R55 - Syncope and collapse (ICD-10) Dehydration ?E86.0 - Dehydration (ICD-10) Surgical History History of left hip replacement ?Z96.642 - Presence of left artificial hip joint (ICD-10) Family History Father Family history of myocardial infarction Mother Family history of hypertension Family history of cancer Social History (Updated 01/07/25 @ 04:20 by Ingrid Beard RN) Within the past year, how often did you have a drink containing alcohol: never Score interpretation: A score less than 4 is consistent with normal alcohol consumption. Smoking status: Former smoker Second hand tobacco smoke exposure: No Non-prescribed substance use: denies use Highest level of school completed/degree received: high school graduate Are you now , , , , never or living with a partner: In a typical week, how many times do you talk on the telephone with family, friends, or neighbors: 3 or more times per week Little interest or pleasure in doing things: not at all Feeling down, depressed, or hopeless: not at all Exam Narrative Exam Narrative: Nurses note and vital signs reviewed and patient is not hypoxic. General: The patient appears in no apparent distress. Patient is resting comfortably on cart. Skin: Warm, dry, no pallor noted. There are numerous old bruises on his arms Head: Normocephalic, atraumatic Eye: Sclera slightly icteric. Ears, Nose, Mouth, and Throat: oral mucosa is slightly dry. Nares patent. Mouth without vesicles. Cardiovascular: Regular Rate and Rhythm, not tachycardic Respiratory: Patient is in no distress, no accessory muscle use, lungs are clear to auscultation, no wheezing, rales or rhonchi GI: Soft and nondistended and nontender Musculoskeletal: Minimal edema in both ankles Neurological: A&O x4, normal speech Psychiatric: Cooperative Constitutional Vital Signs, click to edit/add: Last Vital Signs Temp 97.8 F 01/27/25 14:22 Pulse 90 01/27/25 14:30 Resp 19 01/27/25 14:30 BP 122/68 01/27/25 15:13 Pulse Ox 97 01/27/25 14:30 O2 Del Method Room Air 01/27/25 13:46 Course Vital Signs Vital signs: Vital Signs Pulse Rate 94 H 01/27/25 13:46 Respiratory Rate 25 H 01/27/25 13:46 Pulse Oximetry 98 01/27/25 13:46 Oxygen Delivery Method Room Air 01/27/25 13:46 Temperature 97.8 F 01/27/25 14:22 Pulse Rate 90 01/27/25 14:30 Respiratory Rate 19 01/27/25 14:30 Blood Pressure 122/68 01/27/25 15:13 Pulse Oximetry 97 01/27/25 14:30 Oxygen Delivery Method Room Air 01/27/25 13:46 Medical Decision Making MDM Narrative Medical decision making narrative: UTI is identified. Blood cultures were obtained as well as a urine culture and he was given IV Rocephin. Lactic acid is very minimally elevated. CT brain and chest x-ray are both negative. He is oriented but is confused. He was talking to his about having been to a [employer] concert in [place] last night, which of course he was not. He was saying some other unusual statements as well. His blood pressure was low when he first arrived but is much improved after some IV fluids. Treatment diagnosis and disposition were discussed with the patient and his family. Differential Diagnosis Differential Diagnosis: UTI, dehydration, sepsis, acute kidney injury Lab Data Lab results reviewed: Yes I reviewed the patient's lab results Labs: Lab Results 01/27/25 01/27/25 01/27/25 Range/Units 14:25 14:40 15:24 WBC 8.6 (4.0-11.0) 10^3/uL RBC 3.52 L (4.70-6.10) 10^6/uL Hgb 11.9 L (14.0-18.0) g/dL Hct 36.0 L (42.0-54.0) % MCV 102.3 H (80.0-94.0) fL MCH 33.8 (25.9-34.0) pg MCHC 33.1 (29.9-35.2) g/dL RDW 15.4 H (11.0-15.0) % Plt Count 200 (150-450) 10^3/uL MPV 10.3 (9.5-13.5) fL Neut % (Auto) 79.0 H (43.0-75.0) % Lymph % (Auto) 8.6 L (20.5-60.0) % Reeves % (Auto) 8.2 (1.7-12.0) % Eos % (Auto) 2.4 (0.9-7.0) % Baso % (Auto) 0.5 (0.2-2.0) % Neut # (Auto) 6.8 H (1.4-6.5) 10^3/uL Lymph # (Auto) 0.7 L (1.2-3.8) 10^3/uL Reeves # (Auto) 0.7 (0.3-0.8) 10^3/uL Eos # (Auto) 0.2 (0.0-0.7) 10^3/uL Baso # (Auto) 0.0 (0.0-0.1) 10^3/uL Abs Immat Gran (auto) 0.11 H (0.00-0.03) 10^3/uL Imm/Tot Granulo (auto) 1.3 H (0.0-0.5) % PT 12.3 H (9.0-11.6) sec INR 1.18 APTT 30.2 (22.3-36.2) sec Sodium 138 (136-145) mmol/L Potassium 5.4 H (3.5-5.1) mmol/L Chloride 104 (98-107) mmol/L Carbon Dioxide 28.4 (21.0-32.0) mmol/L Anion Gap 11.0 BUN 36.0 H (7.0-18.0) mg/dL Creatinine 1.12 (0.70-1.30) mg/dL Est GFR ( Amer) >60 (>=60 mL/min/1.73m^2) Est GFR (Non-Af Amer) >60 (>=60 mL/min/1.73m^2) BUN/Creatinine Ratio 32.1 Glucose 197 H (74-106) mg/dL Lactate 2.6 H* (0.4-2.0) mmol/L Calcium 9.7 (8.5-10.1) mg/dL Total Bilirubin 2.1 H (0.2-1.0) mg/dL Direct Bilirubin 1.2 H* (0.0-0.2) mg/dL AST 90 H (15-37) U/L ALT 60 (16-63) U/L Alkaline Phosphatase 413 H (46-116) U/L Ammonia 22 (11-32) umol/L Total Protein 6.1 L (6.4-8.2) g/dL Albumin 1.4 L (3.4-5.0) g/dL Globulin 4.7 g/dL Albumin/Globulin Ratio 0.3 Amylase 21 L (25-115) U/L Lipase 35.0 (16.0-77.0) U/L Urine Color Dk yellow (YELLOW) Urine Clarity Sl cloudy (CLEAR) Urine pH 6.0 (5.0-9.0) Ur Specific Kimball 1.020 (1.005-1.025) Urine Protein Negative (NEG/TRACE) mg/dL Urine Glucose (UA) >=1000 A (NEGATIVE) mg/dL Urine Ketones Negative (NEGATIVE) mg/dL Urine Occult Blood Moderate A (NEGATIVE) Urine Nitrite Negative (NEGATIVE) Urine Bilirubin Negative (NEGATIVE) Urine Urobilinogen 0.2 (0.2-1.0) EU/dL Ur Leukocyte Esterase Small A (NEGATIVE) Urine RBC 20-50 A (0-2) #/HPF Urine WBC 10-20 A (NONE SEEN) #/HPF Ur Squamous Epith Cells Few A (NONE/RARE) #/LPF Urine Crystals None seen (None Seen) #/HPF Urine Bacteria Moderate A (NONE SEEN) #/HPF Urine Casts None seen (NONE SEEN) #/LPF Urine Mucus None seen (NONE SEEN) Ur Culture Indicated? Yes-[facility] [place] Imaging Data Chest x-ray: Radiologist's impression: ITS Impressions Chest X-Ray 01/27/25 14:00 IMPRESSION: NEGATIVE CHEST. Impression dictated by: Gage Noland Jr., D.O. 01/27/2025 3:03 PM Dictation Location: [employer]-19 Electronically authenticated by: [id number] Y Date: 01/27/2025 15:[address] 01/27/25 14:01 IMPRESSION: NO ACUTE INTRACRANIAL ABNORMALITY. Impression dictated by: Gage Noland Jr., D.O. 01/27/2025 3:06 PM Dictation Location: [employer]19 Electronically authenticated by: [id number] Y Date: 01/27/2025 15:06 ECG Data Attestation: I personally reviewed and interpreted this ECG as follows: (EKG on my interpretation shows sinus rhythm with a rate of 92 and no acute change) Discharge Plan Discharge Chief Complaint: Altered Mental Status Clinical Impression: Urinary tract infection, Acute confusion Patient Disposition: Admitted As Inpatient Time of Disposition Decision: 15:58 Condition: Fair
[2025-01-27] MEDS: 0.9 % SODIUM CHLORIDE 1,000 ML 1000 ML IV (14:30)
--- NOTE | 2025-01-27 14:30 | SWNOTE1 ---
SW received a message from Kitty at [facility] and pt is coming to ED.
[2025-01-27 14:53] LABS: Hematocrit 36.0 % (42.0-54.0); Hemoglobin 11.9 g/dL (14.0-18.0); Immature Granulocytes Abs Auto 0.11 10^3/uL (0.00-0.03); Immature Granulocytes Pct Auto 1.3 % (0.0-0.5); Lymphocytes Absolute Auto 0.7 10^3/uL (1.2-3.8); Mean Corpuscular HGB Conc 33.1 g/dL (29.9-35.2); Mean Corpuscular Hemoglobin 33.8 pg (25.9-34.0); Mean Corpuscular Volume 102.3 fL (80.0-94.0); Platelet Count 200 10^3/uL (150-450); Red Blood Count 3.52 10^6/uL (4.70-6.10); White Blood Count 8.6 10^3/uL (4.0-11.0)
[2025-01-27 14:54] LABS: Glucose Urine UA >=1000 mg/dL (NEGATIVE)
[2025-01-27 15:02] LABS: Cast Seen? NONE SEEN #/LPF (NONE SEEN); Crystals Seen? None Seen #/HPF (None Seen); Urine Culture Indicated YES-FRMC
[2025-01-27 15:08] LABS: INR 1.18; Partial Thromboplastin Time 30.2 sec (22.3-36.2); Prothrombin Time 12.3 sec (9.0-11.6)
[2025-01-27 15:11] LABS: Anion Gap 11.0; Blood Urea Nitrogen 36.0 mg/dL (7.0-18.0); Calcium 9.7 mg/dL (8.5-10.1); Carbon Dioxide 28.4 mmol/L (21.0-32.0); Chloride 104 mmol/L (98-107); Estimated GFR (African America >60 (>=60 mL/min/1.73m^2); Estimated GFR (Non-African Ame >60 (>=60 mL/min/1.73m^2); Glucose 197 mg/dL (74-106); Potassium 5.4 mmol/L (3.5-5.1); Sodium 138 mmol/L (136-145)
[2025-01-27 15:19] LABS: Lactate/Lactic Acid 2.6 mmol/L (0.4-2.0)
[2025-01-27 15:20] LABS: Alanine Aminotransferase 60 U/L (16-63); Albumin Globulin Ratio 0.3; Albumin Level 1.4 g/dL (3.4-5.0); Alkaline Phosphatase 413 U/L (46-116); Aspartate Amino Transferase 90 U/L (15-37); Globulin 4.7 g/dL; Total Protein 6.1 g/dL (6.4-8.2)
[2025-01-27 15:24] LABS: Amylase 21 U/L (25-115); Lipase 35.0 U/L (16.0-77.0)
[2025-01-27 15:39] LABS: Ammonia 22 umol/L (11-32)
--- NOTE | 2025-01-27 16:01 | ECG_ITS ---
[facility] Test Date: 2025-01-27 Pat Name: JAZMYNE PENN Department: Room: 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 Measurements Intervals [place] Rate: 89 P: 41 AL: 185 QRS: 2 QRSD: 89 T: 31 QT: 362 QTc: 442 Interpretive Statements SINUS RHYTHM Normal ECG Compared to ECG 01/27/2025 13:50:09 No significant changes Electronically Signed On 01-28-2025 18:23:12 EDT by TAJ OTERO M.D.
--- NOTE | 2025-01-27 16:03 | PM.IMHP1 ---
Internal Medicine - H&P: HPI History of Present Illness Chief complaint: UTI ACUTE CONFUSION Narrative: Gerson Russell is a 69 y/o M 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, morbid obesity, BMI 44, portal hypertension, obstructive sleep apnea, type 2 diabetes mellitus, hypertension, hyperlipidemia, h/o refractory ascites and bleeding esophageal varices status post tips on 12/01/2012, h/o congestive heart failure, diastolic, recurrent falls, presented to [facility] on 01/27/25 from half-way facility with acute weakness, found to be hypotensive concern for urosepsis. On assessment at bedside in ER, patient resting comfortably in bed, alert and oriented x3 with blood pressure improvement after 1L normal saline. and son at bedside, supplement history, states was confused and confabulating this am prompting presentation to ER. Patient notes long standing shortness of breath and cough but no acute worsening, no chest pain, no productive sputum, no fevers chills, no abdominal pain. Does state had dysuria this am. Compliant with home meds. Review of Systems ROS Status of ROS 10 or more systems reviewed and unremarkable except as noted in history and below [facility] Medical History (Updated 01/27/25 @ 16:21 by Bettie Ang RN) Osteoarthritis ?M19.90 - Unspecified osteoarthritis, unspecified site (ICD-10) Hypothyroidism ?E03.9 - Hypothyroidism, unspecified (ICD-10) Type 2 diabetes mellitus ?E11.9 - Type 2 diabetes mellitus without complications (ICD-10) Pancreatitis ?K85.90 - Acute pancreatitis without necrosis or infection, unspecified (ICD-10) Fracture of humeral head, left, closed ?S42.292A - Other displaced fracture of upper end of left humerus, initial encounter for closed fracture (ICD-10) Depression ?F32.A - Depression, unspecified (ICD-10) Abrasion of elbow ?S50.319A - Abrasion of unspecified elbow, initial encounter (ICD-10) Head trauma ?S09.90XA - Unspecified injury of head, initial encounter (ICD-10) Fall ?W19.XXXA - Unspecified fall, initial encounter (ICD-10) Generalized weakness ?R53.1 - Weakness (ICD-10) Sepsis ?A41.9 - Sepsis, unspecified organism (ICD-10) Generalized weakness ?R53.1 - Weakness (ICD-10) Laceration of left forearm ?S51.812A - Laceration without foreign body of left forearm, initial encounter (ICD-10) Chest wall contusion ?S20.219A - Contusion of unspecified front wall of thorax, initial encounter (ICD-10) Head injury ?S09.90XA - Unspecified injury of head, initial encounter (ICD-10) Abdominal pain ?R10.9 - Unspecified abdominal pain (ICD-10) Severe protein-calorie malnutrition ?E43 - Unspecified severe protein-calorie malnutrition (ICD-10) Coagulopathy ?D68.9 - Coagulation defect, unspecified (ICD-10) Hyperbilirubinemia ?E80.6 - Other disorders of bilirubin metabolism (ICD-10) Lactic acidosis ?E87.20 - Acidosis, unspecified (ICD-10) Hyperkalemia ?E87.5 - Hyperkalemia (ICD-10) Thrombocytopenia ?D69.6 - Thrombocytopenia, unspecified (ICD-10) Acute pancreatitis ?K85.90 - Acute pancreatitis without necrosis or infection, unspecified (ICD-10) Cholelithiasis ?K80.20 - Calculus of gallbladder without cholecystitis without obstruction (ICD-10) Cirrhosis ?K74.60 - Unspecified cirrhosis of liver (ICD-10) Acute kidney injury superimposed on stage 1 chronic kidney disease ?N17.9 - Acute kidney failure, unspecified (ICD-10) ?N18.1 - Chronic kidney disease, stage 1 (ICD-10) Acute UTI ?N39.0 - Urinary tract infection, site not specified (ICD-10) Nausea vomiting and diarrhea ?R11.2 - Nausea with vomiting, unspecified (ICD-10) ?R19.7 - Diarrhea, unspecified (ICD-10) Hypovolemia ?E86.1 - Hypovolemia (ICD-10) Syncope ?R55 - Syncope and collapse (ICD-10) Dehydration ?E86.0 - Dehydration (ICD-10) Surgical History History of left hip replacement ?Z96.642 - Presence of left artificial hip joint (ICD-10) Family History Father Family history of myocardial infarction Mother Family history of hypertension Family history of cancer Social History (Updated 01/07/25 @ 04:20 by Ingrid Beard RN) Within the past year, how often did you have a drink containing alcohol: never Score interpretation: A score less than 4 is consistent with normal alcohol consumption. Smoking status: Former smoker Second hand tobacco smoke exposure: No Non-prescribed substance use: denies use Highest level of school completed/degree received: high school graduate Are you now , , , , never or living with a partner: In a typical week, how many times do you talk on the telephone with family, friends, or neighbors: 3 or more times per week Little interest or pleasure in doing things: not at all Feeling down, depressed, or hopeless: not at all Meds Home Medications and Allergies Home Medications ?Medication ?Instructions ?Recorded ?Confirmed ?Type carvedilol 6.25 mg tablet 6.25 mg PO Q12H 05/27/23 01/27/25 History furosemide 20 mg tablet 40 mg PO DAILY 05/27/23 01/27/25 History potassium chloride 20 mEq 20 meq PO DAILY 05/27/23 01/27/25 History tablet,extended release(part/cryst) (Klor-Con M) ezetimibe 10 mg tablet 10 mg PO .qhs 10/20/24 01/27/25 History aspirin 81 mg capsule 81 mg PO DAILY 11/18/24 01/27/25 History cyanocobalamin (vitamin B-12) 2,000 mcg PO DAILY 11/18/24 01/27/25 History 2,000 mcg tablet,extended release (Vitamin B-12 ER) ferrous sulfate 325 mg (65 mg 325 mg PO BID 11/18/24 01/27/25 History iron) tablet (iron) levothyroxine 50 mcg tablet 50 mcg PO .ACB 12/10/24 01/27/25 History liothyronine 5 mcg tablet 5 mcg PO .ACB 12/10/24 01/27/25 History spironolactone 50 mg tablet 50 mg PO BID 12/10/24 01/27/25 History canagliflozin 100 mg tablet 100 mg PO QD #30 tabs 12/14/24 01/27/25 Rx (Invokana) food supplemt, lactose-reduced 1 ea PO BID #5,688 mL 12/14/24 01/27/25 Rx (Ensure Active Protein-Muscle oral liquid) nystatin 100,000 unit/gram topical 1 applic topical BID #60 grams 12/14/24 01/27/25 Rx powder (Nystop) sitagliptin phosphate 50 mg tablet 100 mg (2 x 50 mg) PO QD #60 tabs 12/14/24 01/27/25 Rx (Januvia) amino acids-protein hydrolysate 15 1 ea PO BID #2,880 mL 01/08/25 01/27/25 Rx gram-100 kcal/30 mL oral liquid pkt (Pro-Stat Sugar Free) duloxetine 60 mg capsule,delayed 60 mg PO QD #30 caps 01/08/25 01/27/25 Rx release lactulose 10 gram/15 mL oral 20 g (30 mL) PO TID #3,785 mL 01/08/25 01/27/25 Rx solution citalopram 20 mg tablet 20 mg PO DAILY 01/27/25 01/27/25 History diclofenac sodium 1 % topical gel 2 g topical TID 01/27/25 01/27/25 History (Arthritis Pain (diclofenac)) ipratropium 0.5 mg-albuterol 3 mg 3 ml inhalation Q6H 01/27/25 01/27/25 History (2.5 mg base)/3 mL nebulization soln pantoprazole 40 mg tablet,delayed 40 mg PO .ACB 01/27/25 01/27/25 History release sacubitril 24 mg-valsartan 26 mg 1 tab PO BID 01/27/25 01/27/25 History tablet (Entresto) Allergies Allergy/AdvReac Type Severity Reaction Status Date / Time No Known Drug Allergies Allergy Verified 01/27/25 13:46 Exam Narrative Exam Narrative: Gen.: Awake, alert, in no distress, slightly icteric Head: Normocephalic, atraumatic ENT: Moist mucous membranes Respiratory: No respiratory distress, lungs clear bilaterally Cardio: Regular rate and rhythm Gastrointestinal: Abdomen is soft, nondistended and nontender to palpation Extremities: Moves extremities equally, trace 1+ pitting edema Psych: Normal mood and affect Neuro: No focal neuro deficit Skin: Warm, dry, intact Constitutional Vital Signs, click to edit/add: Last Vital Signs Temp 97.8 F 01/27/25 14:22 Pulse 90 01/27/25 14:30 Resp 19 01/27/25 14:30 BP 122/68 01/27/25 15:13 Pulse Ox 97 01/27/25 14:30 O2 Del Method Room Air 01/27/25 13:46 Internal Medicine - H&P: Reslt Labs Labs: Short CBC 01/27/25 Range/Units 14:40 WBC 8.6 (4.0-11.0) 10^3/uL Hgb 11.9 L (14.0-18.0) g/dL Hct 36.0 L (42.0-54.0) % Plt Count 200 (150-450) 10^3/uL BMP 01/27/25 14:40 Sodium 138 Potassium 5.4 H Chloride 104 Carbon Dioxide 28.4 BUN 36.0 H Creatinine 1.12 Glucose 197 H Calcium 9.7 Liver Function 01/27/25 Range/Units 14:40 Total Bilirubin 2.1 H (0.2-1.0) mg/dL Direct Bilirubin 1.2 H* (0.0-0.2) mg/dL AST 90 H (15-37) U/L ALT 60 (16-63) U/L Alkaline Phosphatase 413 H (46-116) U/L Albumin 1.4 L (3.4-5.0) g/dL Urine 01/27/25 Range/Units 14:25 Urine Color Dk yellow (YELLOW) Urine Clarity Sl cloudy (CLEAR) Urine pH 6.0 (5.0-9.0) Ur Specific [place] 1.020 (1.005-1.025) Urine Protein Negative (NEG/TRACE) mg/dL Urine Glucose (UA) >=1000 A (NEGATIVE) mg/dL Urinary Catheter Management Urinary Catheter Management Straight: Cath placed during this visit: yes Urethral indwelling: No Insertion date: 01/27/25 Insertion time: 14:23 Assessment and Plan Assessment and Plan (1) Urinary tract infection: (2) Acute confusion: (3) Fracture of left elbow: (4) Cirrhosis: (5) Hypovolemia: (6) Sepsis: (7) Type 2 diabetes mellitus: (8) Hypothyroidism: (9) Osteoarthritis: Plan Gerson Russell is a 69 y/o M 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, morbid obesity, BMI 44, portal hypertension, obstructive sleep apnea, type 2 diabetes mellitus, hypertension, hyperlipidemia, h/o refractory ascites and bleeding esophageal varices status post tips on 12/01/2012, h/o congestive heart failure, diastolic, recurrent falls, presented to [facility] on 01/27/25 from half-way facility with acute weakness, found to be hypotensive concern for urosepsis. 1. Acute metabolic encephalopathy 2/2 septic shock from suspected UTI - presented with hypotension, 80/60, fluid responsive, altered mental status, ammonia 22 - continue rocephin, follow up blood and urine cultures - limited TTE to r/o underlying event - ascites survey given h/o liver cirrhosis - hold home antihypertensives - IV fluid boluses as needed for hypotension 2. 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, morbid obesity, BMI 44, portal hypertension, obstructive sleep apnea, type 2 diabetes mellitus, hypertension, hyperlipidemia, h/o refractory ascites and bleeding esophageal varices status post tips on 12/01/2012, h/o congestive heart failure, diastolic - continue lactulose - hold lasix and spironolactone given hypotension - likely hold K supplementation given elevation at 5.4 - continue levothyroxine and liothyronine - continue citalopram and duloxetine Diet: Cardiac Lines/tubes: PIV VTE prophylaxis: sqh 5k q8h Code status: full Dispo: inpatient
--- NOTE | 2025-01-27 17:13 | US_ITS ---
[address] [address] Patient Name: JAZMYNE PENN MRN: [id number] date: 1955 Sex: M Assigned Patient Location: [place] Current Patient Location: [place] Accession/Order Number: [id number] Exam Date: 01/28/2025 08:05 Report Date: 01/28/2025 08:07 At the request of: RADAMES MCKNIGHT MD Procedure: US abdomen limited LIMITED ABDOMINAL ULTRASOUND - ascites survey: CLINICAL HISTORY: History of ascites COMPARISON: CT 12/10/2024 Real-time ultrasound evaluation of all 4 quadrants and the pelvis was performed. There is a trace amount of free fluid at the right upper quadrant. No other ascites is seen. US/US abdomen limited IMPRESSION: MINIMAL RIGHT UPPER QUADRANT ASCITES. Impression dictated by: Key Victoria M.D. 01/28/2025 8:07 AM Dictation Location: [place] [address] Electronically authenticated by: [id number] Y Date: 01/28/2025 08:07
[2025-01-27 18:08] LABS: Lactate/Lactic Acid 1.6 mmol/L (0.4-2.0)
[2025-01-27] MEDS: HEPARIN SODIUM (PORCINE) 5,000 UNIT/ML VIAL 5000 UNIT SUBQ (21:48)
[2025-01-27] MEDS: FERROUS SULFATE 325 MG TABLET PO (21:49)
[2025-01-27] MEDS: EZETIMIBE 10 MG TABLET PO (21:49)
[2025-01-27] MEDS: LACTULOSE 10 GM/15 ML UD CUP 20 GM PO (21:49)
[2025-01-27] MEDS: CARVEDILOL 6.25 MG TABLET PO (21:51)
[2025-01-28] VITALS: BP 91/55; PULSE 90; TEMP 36.7; O2SAT 90
[2025-01-28 04:00] VITALS: BP 102/73; PULSE 86; TEMP 36.6; O2SAT 91
[2025-01-28] MEDS: HEPARIN SODIUM (PORCINE) 5,000 UNIT/ML VIAL 5000 UNIT SUBQ ×3 (04:17→21:15)
[2025-01-28 05:48] LABS: Hematocrit 33.5 % (42.0-54.0); Hemoglobin 11.2 g/dL (14.0-18.0); Immature Granulocytes Abs Auto 0.09 10^3/uL (0.00-0.03); Immature Granulocytes Pct Auto 1.1 % (0.0-0.5); Lymphocytes Absolute Auto 1.0 10^3/uL (1.2-3.8); Mean Corpuscular HGB Conc 33.4 g/dL (29.9-35.2); Mean Corpuscular Hemoglobin 33.5 pg (25.9-34.0); Mean Corpuscular Volume 100.3 fL (80.0-94.0); Platelet Count 203 10^3/uL (150-450); Red Blood Count 3.34 10^6/uL (4.70-6.10); White Blood Count 8.1 10^3/uL (4.0-11.0)
[2025-01-28 06:14] LABS: Alanine Aminotransferase 56 U/L (16-63); Albumin Globulin Ratio 0.3; Albumin Level 1.3 g/dL (3.4-5.0); Alkaline Phosphatase 382 U/L (46-116); Anion Gap 11.5; Aspartate Amino Transferase 84 U/L (15-37); Blood Urea Nitrogen 31.0 mg/dL (7.0-18.0); Calcium 9.4 mg/dL (8.5-10.1); Carbon Dioxide 25.6 mmol/L (21.0-32.0); Chloride 107 mmol/L (98-107); Estimated GFR (African America >60 (>=60 mL/min/1.73m^2); Estimated GFR (Non-African Ame >60 (>=60 mL/min/1.73m^2); Globulin 4.5 g/dL; Glucose 119 mg/dL (74-106); Potassium 5.1 mmol/L (3.5-5.1); Sodium 139 mmol/L (136-145); Total Protein 5.8 g/dL (6.4-8.2)
[2025-01-28] MEDS: LEVOTHYROXINE SODIUM 25 MCG TABLET 50 MCG PO (06:29)
[2025-01-28] MEDS: LACTULOSE 10 GM/15 ML UD CUP 20 GM PO ×3 (06:29→21:16)
[2025-01-28] MEDS: LIOTHYRONINE SODIUM 5 MCG TABLET PO (06:29)
[2025-01-28 08:00] VITALS: BP 103/72; PULSE 88; TEMP 36.8; O2SAT 93
--- NOTE | 2025-01-28 08:56 | SWNOTE1 ---
WAGNER emailed Kitty at [facility] and let her know that pt is an inpatient here at hospital. WAGNER did let her know that pt is hallucinating still and he may need to go skilled again. Waiting to hear back.
--- NOTE | 2025-01-28 09:06 | SWNOTE1 ---
SW stopped in to speak with pt. Pt was laying in bed and initially woke up for conversation. Pt did start falling asleep towards end of conversation. He voiced he was doing well at [facility]. Pt does feel he needs more therapy before returning home. SW did remember that pt was hallucinating yesterday on admission. SW did ask pt if he knew where he was, he stated the [facility]. Pt's breakfast arrived. Pt did know his name and date of . SW asked pt if he needs nurse to re-adjust him in bed so he can eat? SW went to get nurse. Nurse will stop in room to assist pt. SW let pt know and he voiced he can wait and started falling asleep. SW to stop back in later today. Pt is a precert to return to [facility]. SW did receive message from Kitty at [facility] and they can try to skill him for some more days and she can start precert today once she receives the documentation.
[2025-01-28] MEDS: CITALOPRAM HYDROBROMIDE 20 MG TABLET PO (09:11)
[2025-01-28] MEDS: FERROUS SULFATE 325 MG TABLET PO ×2 (09:11→21:16)
[2025-01-28] MEDS: ASPIRIN 81 MG TAB.CHEW PO (09:11)
[2025-01-28] MEDS: CARVEDILOL 6.25 MG TABLET PO ×2 (09:11→21:16)
--- NOTE | 2025-01-28 10:34 | SWNOTE1 ---
SW and I stopped back in pt's room. Pt was sitting up in chair. Pt voiced he would like to return to rehab at discharge. Kitty from [facility] is starting precert. SW to call pt's to update her.
--- NOTE | 2025-01-28 10:34 | SWNOTE1 ---
Important Message from [employer] reviewed and discussed with patient. Pt. verbalized understanding and signed the form. Original given to patient and copy placed in patient?s chart.
--- NOTE | 2025-01-28 10:34 | SWNOTE1 ---
Updates sent to [facility]. WAGNER received a message from Kitty at [facility] and precert has been started. WAGNER spoke to case management and doctor okay with precert being started today.
--- NOTE | 2025-01-28 10:43 | SWNOTE1 ---
WAGNER called pt's , Annika, and updated her on discharge plans. She voiced she does agree that pt needs to return to rehab and voiced she can't care for him at home right now. WAGNER did explain that we will have to wait and see if insurance approves him to return. She voiced understanding, no further questions at this time.
--- NOTE | 2025-01-28 10:52 | PM.IMPN1 ---
Progress Note: A&P Assessment and Plan (1) Urinary tract infection: (2) Acute confusion: (3) Fracture of left elbow: (4) Cirrhosis: (5) Hypovolemia: (6) Sepsis: (7) Type 2 diabetes mellitus: (8) Hypothyroidism: (9) Osteoarthritis: Plan Gerson Russell is a 69 y/o M 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, morbid obesity, BMI 44, portal hypertension, obstructive sleep apnea, type 2 diabetes mellitus, hypertension, hyperlipidemia, h/o refractory ascites and bleeding esophageal varices status post tips on 12/01/2012, h/o congestive heart failure, diastolic, recurrent falls, presented to [place] [facility] on 01/27/25 from [facility] facility with acute weakness, found to be hypotensive concern for urosepsis. 1. Acute metabolic encephalopathy 2/2 septic shock from suspected UTI - presented with hypotension, 80/60, fluid responsive, altered mental status, ammonia 22 - Mentation improved - limited TTE to r/o underlying event - trace ascites on abdominal ultrasound - continue to hold home antihypertensives - IV fluid boluses as needed for hypotension - PT/OT consulted for potential d/c back to [facility] - continue rocephin, follow up blood and urine cultures 2. 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, morbid obesity, BMI 44, portal hypertension, obstructive sleep apnea, type 2 diabetes mellitus, hypertension, hyperlipidemia, h/o refractory ascites and bleeding esophageal varices status post tips on 12/01/2012, h/o congestive heart failure, diastolic - continue lactulose - hold lasix and spironolactone given hypotension - hold K supplementation given elevation at 5.1 - continue levothyroxine and liothyronine - continue citalopram and duloxetine Diet: Cardiac Lines/tubes: PIV VTE prophylaxis: sqh 5k q8h Code status: full Dispo: inpatient Internal Medicine - PN: Subj Subjective Interval history: Admitted yesterday for confusion, per nursing some possible disorientation this am. On assessment, alert and oriented in chair, aware of potential disorientation. No complaints at this time but does feel slightly weak. Exam Narrative Exam Narrative: Gen.: Awake, alert, in no distress, slightly icteric Head: Normocephalic, atraumatic ENT: Moist mucous membranes Respiratory: No respiratory distress, lungs clear bilaterally Cardio: Regular rate and rhythm Gastrointestinal: Abdomen is soft, nondistended and nontender to palpation Extremities: Moves extremities equally, trace 1+ pitting edema Psych: Normal mood and affect Neuro: No focal neuro deficit Skin: Warm, dry, intact Constitutional Vital Signs, click to edit/add: Last Vital Signs Temp 98.3 F 01/28/25 08:00 Pulse 88 01/28/25 08:00 Resp 18 01/28/25 08:00 BP 103/72 01/28/25 08:00 Pulse Ox 93 L 01/28/25 08:00 O2 Del Method Room Air 01/28/25 08:00 Internal Medicine - PN: Obj Da Labs Labs: Laboratory Results - last 24 hr 01/27/25 01/27/25 01/27/25 14:25 14:40 15:24 WBC 8.6 RBC 3.52 L Hgb 11.9 L Hct 36.0 L MCV 102.3 H MCH 33.8 MCHC 33.1 RDW 15.4 H Plt Count 200 MPV 10.3 Neut % (Auto) 79.0 H Lymph % (Auto) 8.6 L [place] % (Auto) 8.2 Eos % (Auto) 2.4 Baso % (Auto) 0.5 Neut # (Auto) 6.8 H Lymph # (Auto) 0.7 L [place] # (Auto) 0.7 Eos # (Auto) 0.2 Baso # (Auto) 0.0 Abs Immat Gran (auto) 0.11 H Imm/Tot Granulo (auto) 1.3 H PT 12.3 H INR 1.18 APTT 30.2 Sodium 138 Potassium 5.4 H Chloride 104 Carbon Dioxide 28.4 Anion Gap 11.0 BUN 36.0 H Creatinine 1.12 Est GFR ( Amer) >60 Est GFR (Non-Af Amer) >60 BUN/Creatinine Ratio 32.1 Glucose 197 H Lactate 2.6 H* Calcium 9.7 Total Bilirubin 2.1 H Direct Bilirubin 1.2 H* AST 90 H ALT 60 Alkaline Phosphatase 413 H Ammonia 22 Total Protein 6.1 L Albumin 1.4 L Globulin 4.7 Albumin/Globulin Ratio 0.3 Amylase 21 L Lipase 35.0 Urine Color Dk yellow Urine Clarity Sl cloudy Urine pH 6.0 Ur Specific [place] 1.020 Urine Protein Negative Urine Glucose (UA) >=1000 A Urine Ketones Negative Urine Occult Blood Moderate A Urine Nitrite Negative Urine Bilirubin Negative Urine Urobilinogen 0.2 Ur Leukocyte Esterase Small A Urine RBC 20-50 A Urine WBC 10-20 A Ur Squamous Epith Cells Few A Urine Crystals None seen Urine Bacteria Moderate A Urine Casts None seen Urine Mucus None seen Ur Culture Indicated? Yes-[facility] 01/27/25 01/28/25 17:47 05:39 WBC 8.1 RBC 3.34 L Hgb 11.2 L Hct 33.5 L MCV 100.3 H MCH 33.5 MCHC 33.4 RDW 15.3 H Plt Count 203 MPV 10.2 Neut % (Auto) 73.3 Lymph % (Auto) 11.9 L [place] % (Auto) 9.3 Eos % (Auto) 3.8 Baso % (Auto) 0.6 Neut # (Auto) 5.9 Lymph # (Auto) 1.0 L [place] # (Auto) 0.8 Eos # (Auto) 0.3 Baso # (Auto) 0.1 Abs Immat Gran (auto) 0.09 H Imm/Tot Granulo (auto) 1.1 H PT INR APTT Sodium 139 Potassium 5.1 Chloride 107 Carbon Dioxide 25.6 Anion Gap 11.5 BUN 31.0 H Creatinine 0.91 Est GFR ( Amer) >60 Est GFR (Non-Af Amer) >60 BUN/Creatinine Ratio 34.1 Glucose 119 H Lactate 1.6 Calcium 9.4 Total Bilirubin 2.3 H Direct Bilirubin AST 84 H ALT 56 Alkaline Phosphatase 382 H Ammonia Total Protein 5.8 L Albumin 1.3 L Globulin 4.5 Albumin/Globulin Ratio 0.3 Amylase Lipase Urine Color Urine Clarity Urine pH Ur Specific [place] Urine Protein Urine Glucose (UA) Urine Ketones Urine Occult Blood Urine Nitrite Urine Bilirubin Urine Urobilinogen Ur Leukocyte Esterase Urine RBC Urine WBC Ur Squamous Epith Cells Urine Crystals Urine Bacteria Urine Casts Urine Mucus Ur Culture Indicated? Urinary Catheter Management Urinary Catheter Management Straight: Cath placed during this visit: yes Urethral indwelling: No Insertion date: 01/27/25 Insertion time: 14:23
--- NOTE | 2025-01-28 11:18 | CM.NOTE ---
Discussed Gerson's care with Dr. Vogel. Awaiting urine and blood cxs. PT/OT recommended SNF. Precert for SNF to [facility] started. No discharge planned for today
--- NOTE | 2025-01-28 11:30 | SWNOTE1 ---
WAGNER Tang at [facility] and she will have someone covering for her over the weekend and they will check status of precert and contact or the hospital if pt does get approved. WAGNER left packet out on the floor.
[2025-01-28 12:00] VITALS: BP 106/66; PULSE 78; TEMP 36.4; O2SAT 92
[2025-01-28 15:51] VITALS: BP 102/61; PULSE 82; TEMP 36.7; O2SAT 90
--- NOTE | 2025-01-28 17:42 | CA_ITS ---
Patient Name: JAZMYNE PENN MR#: [id number] : 1955 Exam Date: 01/28/2025 Ordering Doctor: RADAMES MCKNIGHT ECHOCARDIOGRAM REPORT PROCEDURE: CA ECHO LIMITED INDICATIONS: hypotension, confusion, heart failure with preserved ejection fraction, diabetes, hypertension COMPARISON: None. DESCRIPTION: Limited ECHOCARDIOGRAM Real-time transthoracic echocardiography with 2D and M-mode performed. QUALITY: Limited echocardiogram per physician order. Technically difficult due to poor sound transmission. LEFT VENTRICLE: Normal chamber size. Mild concentric left ventricular hypertrophy. LV EF: Global left ventricular systolic function is difficult to assess but appears hyperdynamic; visually estimated ejection fraction is 65 to 70%. Unable to assess regional wall motion abnormality; recommend contrast study for better delineation of endocardial borders. LEFT ATRIUM: Normal chamber size. RIGHT ATRIUM: Moderate dilatation. RIGHT VENTRICLE: Poorly seen. Normal chamber size. Systolic function appears preserved. TRICUSPID VALVE: Normal mobility and thickness. MITRAL VALVE: Normal mobility and thickness. Mitral annular calcification. AORTIC VALVE: Not well visualized. AORTIC ROOT: Aortic root is dilated (4.3 cm) PULMONIC VALVE: Not well visualized. PERICARDIUM: Anterior free space; trivial effusion versus fat pad. CONCLUSION: 1. Global left ventricular systolic function is difficult to assess but appears hyperdynamic; visually estimated ejection fraction is 65 to 70% 2. The right ventricle is poorly seen but appears normal in size and systolic function 3. The aortic root is dilated 4. Anterior free space in the colon trivial effusion versus fat pad A limited echocardiogram was performed Adult Echocardiography Procedure Report Left Ventricle LVEDD (3.7 - 5.6 cm): 4.61 cm LVESD (2.2 - 4.0 cm): 2.78 cm LVIVS thickness (0.6 - 1.2 cm): 1.26 cm LVPW thickness (0.5 - 1.0 cm): 1.14 cm LVOT Diameter 2.19 cm Left Atrium LA Volume Index (2D A2C): 29.80 ml/m2 Left Atrium Systolic Dimension: 4.93 cm Mitral Valve Right Ventricle Aorta AO Root Diam: 4.33 cm Aortic Valve Tricuspid Valve Pulmonic Valve Right Atrium Right Atrium Systolic Pressure: 78.49 ml, 78.49 ml Dictated by: Lillie Bonilla M.D. on 01/28/2025 at 16:42 Approved by: Lillie Bonilla M.D. on 01/28/2025 at 16:45
[2025-01-28] MEDS: 0.9 % SODIUM CHLORIDE 250 ML 10 ML IV (18:43)
[2025-01-28 20:00] VITALS: BP 99/67; PULSE 83; TEMP 36.6; O2SAT 91
[2025-01-28] MEDS: EZETIMIBE 10 MG TABLET PO (21:16)
[2025-01-29] VITALS (7 sets, daily range): BP systolic 73–123; BP diastolic 36–72; PULSE 76–89; TEMP 36.5–36.8; O2SAT 91–93
[2025-01-29] MEDS: HEPARIN SODIUM (PORCINE) 5,000 UNIT/ML VIAL 5000 UNIT SUBQ ×3 (03:50→21:46)
[2025-01-29 06:07] LABS: Hematocrit 32.5 % (42.0-54.0); Hemoglobin 10.7 g/dL (14.0-18.0); Immature Granulocytes Abs Auto 0.07 10^3/uL (0.00-0.03); Immature Granulocytes Pct Auto 1.1 % (0.0-0.5); Lymphocytes Absolute Auto 1.0 10^3/uL (1.2-3.8); Mean Corpuscular HGB Conc 32.9 g/dL (29.9-35.2); Mean Corpuscular Hemoglobin 33.2 pg (25.9-34.0); Mean Corpuscular Volume 100.9 fL (80.0-94.0); Platelet Count 179 10^3/uL (150-450); Red Blood Count 3.22 10^6/uL (4.70-6.10); White Blood Count 6.2 10^3/uL (4.0-11.0)
[2025-01-29] MEDS: LEVOTHYROXINE SODIUM 25 MCG TABLET 50 MCG PO (06:20)
[2025-01-29] MEDS: LACTULOSE 10 GM/15 ML UD CUP 20 GM PO (06:20)
[2025-01-29] MEDS: LIOTHYRONINE SODIUM 5 MCG TABLET PO (06:20)
[2025-01-29 06:21] LABS: Alanine Aminotransferase 59 U/L (16-63); Albumin Globulin Ratio 0.3; Albumin Level 1.2 g/dL (3.4-5.0); Alkaline Phosphatase 373 U/L (46-116); Anion Gap 8.7; Aspartate Amino Transferase 87 U/L (15-37); Blood Urea Nitrogen 31.0 mg/dL (7.0-18.0); Calcium 9.2 mg/dL (8.5-10.1); Carbon Dioxide 29.3 mmol/L (21.0-32.0); Chloride 106 mmol/L (98-107); Estimated GFR (African America >60 (>=60 mL/min/1.73m^2); Estimated GFR (Non-African Ame >60 (>=60 mL/min/1.73m^2); Globulin 4.4 g/dL; Glucose 113 mg/dL (74-106); Potassium 5.0 mmol/L (3.5-5.1); Sodium 139 mmol/L (136-145); Total Protein 5.6 g/dL (6.4-8.2)
[2025-01-29] MEDS: ASPIRIN 81 MG TAB.CHEW PO (09:11)
[2025-01-29] MEDS: CITALOPRAM HYDROBROMIDE 20 MG TABLET PO (09:12)
[2025-01-29] MEDS: FERROUS SULFATE 325 MG TABLET PO ×2 (09:12→21:47)
[2025-01-29] MEDS: CARVEDILOL 6.25 MG TABLET PO ×2 (09:12→21:46)
[2025-01-29] MEDS: ALBUMIN HUMAN 25 GM/100 ML PREMIX IV (12:20)
--- NOTE | 2025-01-29 13:53 | P.IMPN_ITS ---
Progress Note: A&P Assessment and Plan (1) Urinary tract infection: (2) Acute confusion: (3) Fracture of left elbow: (4) Cirrhosis: (5) Hypovolemia: (6) Sepsis: (7) Type 2 diabetes mellitus: (8) Hypothyroidism: (9) Osteoarthritis: Plan Gerson Russell is a 69 y/o M 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, morbid obesity, BMI 44, portal hypertension, obstructive sleep apnea, type 2 diabetes mellitus, hypertension, hyperlipidemia, h/o refractory ascites and bleeding esophageal varices status post tips on 12/01/2012, h/o congestive heart failure, diastolic, recurrent falls, presented to [place] [facility] on 01/27/25 from group home facility with acute weakness, found to be hypotensive concern for uro sepsis. 1. Acute metabolic encephalopathy 2/2 septic shock from suspected UTI - presented with hypotension, 80/60, fluid responsive, altered mental status, ammonia 22 - Mentation improved - limited TTE to r/o underlying event - trace ascites on abdominal ultrasound - continue to hold home antihypertensives - IV fluid boluses as needed for hypotension - orthostats significantly +ve, will give albumin 25 g today and tomorrow am, anticipate discharge tomorrow - continue rocephin, follow up blood and urine cultures 2. 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, morbid obesity, BMI 44, portal hypertension, obstructive sleep apnea, type 2 diabetes mellitus, hypertension, hyperlipidemia, h/o refractory ascites and bleeding esophageal varices status post tips on 12/01/2012, h/o congestive heart failure, diastolic - continue lactulose - hold lasix and spironolactone given hypotension - hold K supplementation given elevation at 5.1 - continue levothyroxine and liothyronine - continue citalopram and duloxetine Diet: Cardiac Lines/tubes: PIV VTE prophylaxis: sqh 5k q8h Code status: full Dispo: inpatient --> [facility] likely tomorrow Internal Medicine - PN: Subj Subjective Interval history: Mentating well at present, no complaints. Exam Narrative Exam Narrative: Gen.: Awake, alert, in no distress, slightly icteric Head: Normocephalic, atraumatic ENT: Moist mucous membranes Respiratory: No respiratory distress, lungs clear bilaterally Cardio: Regular rate and rhythm Gastrointestinal: Abdomen is soft, nondistended and nontender to palpation Extremities: Moves extremities equally, trace 1+ pitting edema Psych: Normal mood and affect Neuro: No focal neuro deficit Skin: Warm, dry, intact Constitutional Vital Signs, click to edit/add: Last Vital Signs Temp 97.7 F 01/29/25 08:00 Pulse 82 01/29/25 11:29 Resp 18 01/29/25 08:00 BP 117/72 01/29/25 11:29 Pulse Ox 93 L 01/29/25 08:00 O2 Del Method Room Air 01/29/25 08:00 Internal Medicine - PN: Obj Da Labs Labs: Laboratory Results - last 24 hr 01/29/25 05:58 WBC 6.2 RBC 3.22 L Hgb 10.7 L Hct 32.5 L MCV 100.9 H MCH 33.2 MCHC 32.9 RDW 15.5 H Plt Count 179 MPV 10.2 Neut % (Auto) 68.1 Lymph % (Auto) 15.4 L [place] % (Auto) 10.6 Eos % (Auto) 4.3 Baso % (Auto) 0.5 Neut # (Auto) 4.2 Lymph # (Auto) 1.0 L [place] # (Auto) 0.7 Eos # (Auto) 0.3 Baso # (Auto) 0.0 Abs Immat Gran (auto) 0.07 H Imm/Tot Granulo (auto) 1.1 H Sodium 139 Potassium 5.0 Chloride 106 Carbon Dioxide 29.3 Anion Gap 8.7 BUN 31.0 H Creatinine 1.01 Est GFR ( Amer) >60 Est GFR (Non-Af Amer) >60 BUN/Creatinine Ratio 30.7 Glucose 113 H Calcium 9.2 Total Bilirubin 1.8 H AST 87 H ALT 59 Alkaline Phosphatase 373 H Total Protein 5.6 L Albumin 1.2 L Globulin 4.4 Albumin/Globulin Ratio 0.3 Urinary Catheter Management Urinary Catheter Management Straight: Cath placed during this visit: yes Urethral indwelling: No Insertion date: 01/27/25 Insertion time: 14:23
[2025-01-29] MEDS: EZETIMIBE 10 MG TABLET PO (21:47)
[2025-01-30] VITALS (8 sets, daily range): BP systolic 73–127; BP diastolic 48–78; PULSE 78–90; TEMP 36.4–36.9; O2SAT 91–93
[2025-01-30] MEDS: HEPARIN SODIUM (PORCINE) 5,000 UNIT/ML VIAL 5000 UNIT SUBQ ×3 (05:55→21:27)
[2025-01-30] MEDS: ALBUMIN HUMAN 25 GM/100 ML PREMIX IV (05:55)
[2025-01-30] MEDS: LEVOTHYROXINE SODIUM 25 MCG TABLET 50 MCG PO (05:55)
[2025-01-30] MEDS: LIOTHYRONINE SODIUM 5 MCG TABLET PO (05:55)
[2025-01-30] MEDS: LACTULOSE 10 GM/15 ML UD CUP 20 GM PO (05:55)
[2025-01-30 06:36] LABS: Hematocrit 33.2 % (42.0-54.0); Hemoglobin 10.7 g/dL (14.0-18.0); Mean Corpuscular HGB Conc 32.2 g/dL (29.9-35.2); Mean Corpuscular Hemoglobin 32.5 pg (25.9-34.0); Mean Corpuscular Volume 100.9 fL (80.0-94.0); Platelet Count 124 10^3/uL (150-450); Red Blood Count 3.29 10^6/uL (4.70-6.10); White Blood Count 3.5 10^3/uL (4.0-11.0)
[2025-01-30 06:48] LABS: Basophils Abs Manual 0.00 10^3/uL (0.00-0.10); Basophils Percent Manual 0.0 % (0.2-2.0); Eosinophils Absolute Manual 0.14 10^3/uL (0.00-0.70); Eosinophils Percent Manual 4.0 % (0.9-7.0); Lymphocytes Absolute Manual 0.56 10^3/uL (1.20-3.80); Lymphocytes Percent Manual 16.0 % (20.5-60.0); Monocytes Absolute Manual 0.35 10^3/uL (0.30-0.80); Monocytes Percent Manual 10.0 % (1.7-12.0); Segmented Neut Absolute Manual 2.45 10^3/uL (1.4-6.5); Segmented Neutrophils % Manual 70.0 (43.0-75.0)
[2025-01-30 07:00] LABS: Alanine Aminotransferase 62 U/L (16-63); Albumin Globulin Ratio 0.4; Albumin Level 1.8 g/dL (3.4-5.0); Alkaline Phosphatase 353 U/L (46-116); Anion Gap 11.6; Aspartate Amino Transferase 82 U/L (15-37); Blood Urea Nitrogen 28.0 mg/dL (7.0-18.0); Calcium 9.2 mg/dL (8.5-10.1); Carbon Dioxide 26.1 mmol/L (21.0-32.0); Chloride 102 mmol/L (98-107); Estimated GFR (African America >60 (>=60 mL/min/1.73m^2); Estimated GFR (Non-African Ame >60 (>=60 mL/min/1.73m^2); Globulin 4.1 g/dL; Glucose 120 mg/dL (74-106); Potassium 4.7 mmol/L (3.5-5.1); Sodium 135 mmol/L (136-145); Total Protein 5.9 g/dL (6.4-8.2)
[2025-01-30] MEDS: FERROUS SULFATE 325 MG TABLET PO ×2 (08:38→21:28)
[2025-01-30] MEDS: CARVEDILOL 6.25 MG TABLET PO ×2 (08:38→21:28)
[2025-01-30] MEDS: ASPIRIN 81 MG TAB.CHEW PO (08:38)
[2025-01-30] MEDS: CITALOPRAM HYDROBROMIDE 20 MG TABLET PO (08:38)
--- NOTE | 2025-01-30 10:18 | PT.DAILY ---
Physical Therapy Daily Note PT Daily Note/Assess Start: 01/28/25 09:06 Freq: Status: Active Protocol: Document 01/30/25 10:13 EMELI (Rec: 01/30/25 10:18 EMELI [id number]) Physical Therapy Daily Note/Assessment Time In/Time Out Time In 09:38 Time Out 09:52 Pain In Pain N/A Pain Out Pain N/A Subjective Subjective Pt supine upon arrival. Agreeable to PT this morning. Denies no new complaints. Feeling a little better today . Nursing reports he has already been up in chair for breakfast and used commode and to return pt to bed once complete with session. Therapeutic Exercise Time Therapeutic Exercise 5 Minutes (minutes) Therapeutic Exercise 0 Units Therapeutic Exercise Treatment Therapeutic Exercise Pt instructed to complete bilat LE strengthening ex Treatment while sitting EOB unsupported without any LOB - 10x ea. Therapeutic Activity Time Therapeutic Activity 8 Minutes (minutes) Therapeutic Activity 1 Units Therapeutic Activity Treatment Bed Mobility Ability Moderate Assist Chair Transfer Contact Guard Assist Ability Therapeutic Activity Supine>sit with ModA to advance upper body to sit at Comments EOB. Once EOB pt able to maintain unsupported static seated balance without LOB for 5 min. Pt performs sit> stand 5x2 with CGA with us of RW once in standing. Static standing at RW 45 sec tolerance out of 3x attempts. Pt takes 4x side steps with RW up to HOB. Pt requires ModA to advance LEs to bed. Remains supine upon completion per nursing request. Call light within reach and bed alarm activated. Total Physical Therapy Time Total Therapy 13 Minutes Total Physical 1 Therapy Units Summary Daily Note Summary Slight improvement with transfer abilities. Quickly fatigues with static standing - 45 sec max. Pt would benefit from SNF stay to regain strength and endurance to return to PLOF.
[2025-01-30] MEDS: MIDODRINE HCL 5 MG TABLET PO ×2 (12:21→17:01)
--- NOTE | 2025-01-30 15:09 | PM.IMPN1 ---
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 1. Acute metabolic encephalopathy 2/2 septic shock from suspected UTI - presented with hypotension, 80/60, fluid responsive, altered mental status, ammonia 22 - Mentation improved - limited TTE to r/o underlying event - trace ascites on abdominal ultrasound - continue to hold home antihypertensives - IV fluid boluses as needed for hypotension - continue rocephin, follow up blood and urine cultures 2. Orthostatic hypotension in the setting of liver cirrhosis s/p TIPS - BP maintaining normotensive while supine, d3 of antibiotic therapy w/o additional s/s shock - will start midodrine therapy at 5 mg tid - may need medication therapy revised as outpatient, citalopram and duloxetine - d/c to [facility] pending response 2. 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, morbid obesity, BMI 44, portal hypertension, obstructive sleep apnea, type 2 diabetes mellitus, hypertension, hyperlipidemia, h/o refractory ascites and bleeding esophageal varices status post tips on 12/01/2012, h/o congestive heart failure, diastolic - continue lactulose - hold lasix and spironolactone given hypotension - hold K supplementation given elevation at 5.1 - continue levothyroxine and liothyronine - continue citalopram and duloxetine, confirmed on chart review and SNF records Diet: Cardiac Lines/tubes: PIV VTE prophylaxis: sqh 5k q8h Code status: full Dispo: inpatient --> [facility] likely tomorrow Internal Medicine - PN: Subj Subjective Interval history: Continues to mentate well, no complaints, still slight uneasiness with ambulation. Exam Narrative Exam Narrative: Gen.: Awake, alert, in no distress, slightly icteric Head: Normocephalic, atraumatic ENT: Moist mucous membranes Respiratory: No respiratory distress, lungs clear bilaterally Cardio: Regular rate and rhythm Gastrointestinal: Abdomen is soft, nondistended and nontender to palpation Extremities: Moves extremities equally, trace 1+ pitting edema Psych: Normal mood and affect Neuro: No focal neuro deficit Skin: Warm, dry, intact Constitutional Vital Signs, click to edit/add: Last Vital Signs Temp 98.1 F 01/30/25 15:08 Pulse 80 01/30/25 15:08 Resp 20 01/30/25 15:08 BP 93/78 01/30/25 15:08 Pulse Ox 91 L 01/30/25 15:08 O2 Del Method Room Air 01/30/25 15:08 Internal Medicine - PN: Obj Da Labs Labs: Laboratory Results - last 24 hr 01/30/25 06:26 WBC 3.5 L RBC 3.29 L Hgb 10.7 L Hct 33.2 L MCV 100.9 H MCH 32.5 MCHC 32.2 RDW 15.6 H Plt Count 124 L MPV 10.2 Seg Neuts % (Manual) 70.0 Lymphocytes % (Manual) 16.0 L Monocytes % (Manual) 10.0 Eosinophils % (Manual) 4.0 Basophils % (Manual) 0.0 L Neutrophils # (Manual) 2.45 Lymphocytes # (Manual) 0.56 L Monocytes # (Manual) 0.35 Eosinophils # (Manual) 0.14 Basophils # (Manual) 0.00 Sodium 135 L Potassium 4.7 Chloride 102 Carbon Dioxide 26.1 Anion Gap 11.6 BUN 28.0 H Creatinine 0.81 Est GFR ( Amer) >60 Est GFR (Non-Af Amer) >60 BUN/Creatinine Ratio 34.6 Glucose 120 H Calcium 9.2 Total Bilirubin 2.2 H AST 82 H ALT 62 Alkaline Phosphatase 353 H Total Protein 5.9 L Albumin 1.8 L Globulin 4.1 Albumin/Globulin Ratio 0.4 Urinary Catheter Management Urinary Catheter Management Straight: Cath placed during this visit: yes Urethral indwelling: No Insertion date: 01/27/25 Insertion time: 14:23
[2025-01-30] MEDS: EZETIMIBE 10 MG TABLET PO (21:28)
[2025-01-31 03:56] VITALS: BP 119/76; PULSE 79; TEMP 36.6; O2SAT 93
[2025-01-31] MEDS: LIOTHYRONINE SODIUM 5 MCG TABLET PO (05:59)
[2025-01-31] MEDS: LEVOTHYROXINE SODIUM 25 MCG TABLET 50 MCG PO (05:59)
[2025-01-31] MEDS: HEPARIN SODIUM (PORCINE) 5,000 UNIT/ML VIAL 5000 UNIT SUBQ (05:59)
[2025-01-31 06:00] LABS: Hematocrit 30.8 % (42.0-54.0); Hemoglobin 10.1 g/dL (14.0-18.0); Immature Granulocytes Abs Auto 0.04 10^3/uL (0.00-0.03); Immature Granulocytes Pct Auto 1.3 % (0.0-0.5); Lymphocytes Absolute Auto 0.6 10^3/uL (1.2-3.8); Mean Corpuscular HGB Conc 32.8 g/dL (29.9-35.2); Mean Corpuscular Hemoglobin 33.2 pg (25.9-34.0); Mean Corpuscular Volume 101.3 fL (80.0-94.0); Platelet Count 103 10^3/uL (150-450); Red Blood Count 3.04 10^6/uL (4.70-6.10); White Blood Count 3.2 10^3/uL (4.0-11.0)
[2025-01-31] MEDS: LACTULOSE 10 GM/15 ML UD CUP 20 GM PO (06:00)
[2025-01-31 06:12] LABS: Alanine Aminotransferase 61 U/L (16-63); Albumin Globulin Ratio 0.5; Albumin Level 1.8 g/dL (3.4-5.0); Alkaline Phosphatase 338 U/L (46-116); Anion Gap 9.3; Aspartate Amino Transferase 86 U/L (15-37); Blood Urea Nitrogen 22.0 mg/dL (7.0-18.0); Calcium 9.1 mg/dL (8.5-10.1); Carbon Dioxide 27.4 mmol/L (21.0-32.0); Chloride 105 mmol/L (98-107); Estimated GFR (African America >60 (>=60 mL/min/1.73m^2); Estimated GFR (Non-African Ame >60 (>=60 mL/min/1.73m^2); Globulin 3.8 g/dL; Glucose 125 mg/dL (74-106); Potassium 4.7 mmol/L (3.5-5.1); Sodium 137 mmol/L (136-145); Total Protein 5.6 g/dL (6.4-8.2)
[2025-01-31 09:00] VITALS: BP 133/71; PULSE 75; TEMP 36.6; O2SAT 94
[2025-01-31] MEDS: ASPIRIN 81 MG TAB.CHEW PO (09:07)
[2025-01-31] MEDS: FERROUS SULFATE 325 MG TABLET PO (09:07)
[2025-01-31] MEDS: CITALOPRAM HYDROBROMIDE 20 MG TABLET PO (09:07)
[2025-01-31] MEDS: CARVEDILOL 6.25 MG TABLET PO (09:09)
[2025-01-31] MEDS: MIDODRINE HCL 5 MG TABLET PO (09:10)
[2025-01-31 11:43] VITALS: BP 128/71; BP 87/50; BP 98/61; PULSE 74; PULSE 75; PULSE 82; PULSE 84; TEMP 36.1; O2SAT 95
[2025-01-31] MEDS: MIDODRINE HCL 5 MG TABLET 10 MG PO (12:35)
--- NOTE | 2025-01-31 13:06 | PM.DS1 ---
DS: Providers Provider Date of admission: 01/27/25 16:55 Primary care physician: Desmond Muñoz MD Admitting clinician: RADAMES MCKNIGHT Attending physician on admission: RADAMES MCKNIGHT Consults: 01/27/25 17:43 Occupational Therapy Eval and Treat Routine Reason for consultation: potential for placement Physical Therapy Eval and Treat Routine Reason for consultation: potential for placement 01/28/25 09:52 Occupational Therapy Eval and Treat Routine Reason for consultation: disposition Physical Therapy Eval and Treat Routine Reason for consultation: disposition Attending physician on discharge: RADAMES MCKNIGHT Discharging clinician: RADAMES MCKNIGHT DS: Diagnosis Discharge Diagnosis (1) Urinary tract infection: (2) Acute confusion: (3) Fracture of left elbow: (4) Cirrhosis: (5) Hypovolemia: (6) Sepsis: (7) Type 2 diabetes mellitus: (8) Hypothyroidism: (9) Osteoarthritis: DS: Summary Hospital Course Hospital Course: Gerson Russell is a 69 y/o M 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, morbid obesity, BMI 44, portal hypertension, obstructive sleep apnea, type 2 diabetes mellitus, hypertension, hyperlipidemia, h/o refractory ascites and bleeding esophageal varices status post tips on 12/01/2012, h/o congestive heart failure, diastolic, recurrent falls, presented to [facility] on 01/27/25 from [facility] facility with acute weakness, found to be hypotensive concern for urosepsis. Admitted to regular nursing floor, fluid responsive, started on ceftriaxone, mentation and weakness improved. Evaluated by PT/OT with recommendation for discharge back to SNF. Had persistent orthostatic hypotension, started on midodrine which was uptitrated to 10 mg tid. Discharged on 01/31/25 after completion of 5 day course antibiotics, antihypertensives including spironolactone and lasix held until resumption by PCP. Of note, orthostatic hypotension may be contributed by combined citalopram and duloxetine use, which was confirmed [employer] regimen. Decision made to defer taper/medication change to outpatient/PCP. Time Spent with Patient Time attestation: Total time spent providing and/or coordinating discharge services: Exam Constitutional Vital Signs, click to edit/add: Last Vital Signs Temp 97.0 F L 01/31/25 11:43 Pulse 74 01/31/25 11:43 Resp 16 01/31/25 11:43 BP 128/71 01/31/25 11:43 Pulse Ox 95 01/31/25 11:43 O2 Del Method Room Air 01/31/25 11:43 DS: Data Data Completed and Pending Labs on day of discharge: Labs from last 24 hours 01/31/25 05:45 WBC 3.2 L RBC 3.04 L Hgb 10.1 L Hct 30.8 L MCV 101.3 H MCH 33.2 MCHC 32.8 RDW 15.6 H Plt Count 103 L MPV 10.4 Neut % (Auto) 67.0 Lymph % (Auto) 17.6 L [place] % (Auto) 9.7 Eos % (Auto) 3.8 Baso % (Auto) 0.6 Neut # (Auto) 2.1 Lymph # (Auto) 0.6 L [place] # (Auto) 0.3 Eos # (Auto) 0.1 Baso # (Auto) 0.0 Abs Immat Gran (auto) 0.04 H Imm/Tot Granulo (auto) 1.3 H Sodium 137 Potassium 4.7 Chloride 105 Carbon Dioxide 27.4 Anion Gap 9.3 BUN 22.0 H Creatinine 0.73 Est GFR ( Amer) >60 Est GFR (Non-Af Amer) >60 BUN/Creatinine Ratio 30.1 Glucose 125 H Calcium 9.1 Total Bilirubin 1.9 H AST 86 H ALT 61 Alkaline Phosphatase 338 H Total Protein 5.6 L Albumin 1.8 L Globulin 3.8 Albumin/Globulin Ratio 0.5 Preliminary micro results at discharge 01/27/25 14:34 Blood Culture Result 2 - Preliminary Blood NO GROWTH AT 36-48 HOURS. FINAL TO FOLLOW. 01/27/25 14:27 Blood Culture Result 1 - Preliminary Blood NO GROWTH AT 36-48 HOURS. FINAL TO FOLLOW. 01/27/25 14:25 Urine Culture - Preliminary Urine,Clean Catch Pending - Specimen sent to [facility] Discharge Plan Discharge Disposition: Xfer SNF Condition: Fair Discharge Medications: New midodrine 5 mg Tablet 10 mg PO TIDWM 30 Days Qty: 60 0RF Continued aspirin 81 mg capsule 81 mg PO DAILY ferrous sulfate [iron] 325 mg (65 mg iron) tablet 325 mg PO BID cyanocobalamin (vitamin B-12) [Vitamin B-12] 2,000 mcg tablet extended release 2,000 mcg PO DAILY pantoprazole 40 mg tablet,delayed release (DR/EC) 40 mg PO .ACB ipratropium-albuterol 0.5 mg-3 mg(2.5 mg base)/3 mL solution for nebulization 3 ml inhalation Q6H diclofenac sodium [Arthritis Pain (diclofenac)] 1 % gel 2 g topical TID Rx Instructions: apply to single elbow, wrist or hand; for hand includes palm/fingers/back of hand carvedilol 6.25 mg tablet 6.25 mg PO Q12H ezetimibe 10 mg tablet 10 mg PO .qhs liothyronine 5 mcg tablet 5 mcg PO .ACB levothyroxine 50 mcg tablet 50 mcg PO .ACB nystatin [Nystop] 100,000 unit/gram Powder 1 applic topical BID Qty: 60 11RF Ensure Active Protein-Muscle Liquid 1 ea PO BID Qty: 5688 0RF Januvia 50 mg Tablet 100 mg PO QD Qty: 60 11RF Invokana 100 mg Tablet 100 mg PO QD Qty: 30 11RF duloxetine 60 mg Capsule,Delayed Release(Dr/Ec) 60 mg PO QD Qty: 30 11RF lactulose 10 gram/15 mL Solution 20 g PO TID Qty: 3785 0RF Pro-Stat Sugar Free 15 gram- 100 kcal/30 mL Liquid In Packet 1 ea PO BID Qty: 2880 0RF Changed citalopram 20 mg Tablet 10 mg PO DAILY Qty: 0 0RF Held Entresto 24-26 mg Tablet 1 tab PO BID Hold Instructions: Resume on 02/08/25. To be resumed by PCP furosemide 20 mg tablet 40 mg PO DAILY Hold Instructions: Resume on 02/08/25. to be resumed by PCP spironolactone 50 mg tablet 50 mg PO BID Hold Instructions: Resume on 02/08/25. to be resumed by PCP Discontinued potassium chloride [Klor-Con M20] 20 mEq tablet,ER particles/crystals 20 meq PO DAILY Print Language: Azeri Forms: Portal Instructions Discharge Date/Time: 01/31/25 15:34
[2025-01-31 15:03] VITALS: BP 121/78; BP 129/78; BP 96/63; PULSE 74; PULSE 81; PULSE 90
--- NOTE | 2025-02-01 13:36 | CM.NOTE ---
Urine culture results faxed to [facility]. Potential need for po antibiotics.
--- NOTE | 2025-02-03 08:39 | SWNOTE1 ---
WAGNER received a call from Vijaya at [facility]. She voiced that when patient returned to [facility] from his last hospital stay, he did not have his glasses. WAGNER to check in to this and call [facility] back.
== END 2025-01-31 15:34 | DRG 871 ==
LOC: ER 15:58 → MS 17:02
PROVIDERS: Admitting Provider Student in an Organized Health Care Education/Training Program; Emergency Provider Emergency Medicine; PCP Family Medicine; Visit Provider Student in an Organized Health Care Education/Training Program
DX: A41.9 Sepsis, unspecified organism (principal); G93.41 Metabolic encephalopathy; R65.21 Severe sepsis with septic shock; N39.0 Urinary tract infection, site not specified; I50.32 Chronic diastolic (congestive) heart failure; E86.1 Hypovolemia; E03.9 Hypothyroidism, unspecified; I10 Essential (primary) hypertension; R19.7 Diarrhea, unspecified; K74.60 Unspecified cirrhosis of liver; F32.A Depression, unspecified; E66.01 Morbid (severe) obesity due to excess calories; G47.33 Obstructive sleep apnea (adult) (pediatric); M19.90 Unspecified osteoarthritis, unspecified site; E78.5 Hyperlipidemia, unspecified; I95.2 Hypotension due to drugs; T43.225A Adverse effect of selective serotonin reuptake inhibitors, initial encounter; T43.215A Adverse effect of selective serotonin and norepinephrine reuptake inhibitors, initial encounter; R29.6 Repeated falls; Z96.642 Presence of left artificial hip joint; Z87.891 Personal history of nicotine dependence; Z68.38 Body mass index [BMI] 38.0-38.9, adult; Z79.82 Long term (current) use of aspirin; Z79.899 Other long term (current) drug therapy; Z79.890 Hormone replacement therapy
CPT/HCPCS: 36415; 51798; 70450; 71045; 76705; 80048; 80053; 80076; 81001; 82140; 82150; 83605; 83690; 85007; 85025; 85027; 85610; 85730; 87040; 87086; 87088; 87186; 93005; 93308; 96361; 96365; 97162; 97165; 97530; 97535; 99285; J0696; J1644; P9046

== ENCOUNTER 2025-02-11 01:36 | Outpatient (REF) | payer MEDICARE, SELFPAY ==
--- OUTSIDE RECORDS SUMMARY | 2025-02-11 01:44 | XMS_ITS | CCD ---
Author Organization [facility] Care Team Providers Care Auto Winder Name Role Phone RASHAAD, DR WOODS Admitting Unavailable RASHAAD, DR WOODS Attending Unavailable RASHAAD, DR WOODS Primary Care Unavailable HOY, DR WOODS Admitting Unavailable DAVIDY, DR WOODS Attending Unavailable DAVIDY, DR WOODS Primary Care Unavailable DAVIDY, DR WOODS Admitting Unavailable RASHAAD, DR WOODS Attending Unavailable DAVIDY, DR WOODS Primary Care Unavailable RASHAAD, DR WOODS Consulting Unavailable Truman FUNES Attending Unavailable Nat MURRAY Attending Unavailable Nat MURRAY Attending Unavailable Truman FUNES Attending Unavailable Nat MURRAY Attending Unavailable Tuan Lira Attending Unavailable Nat MURRAY Attending Unavailable Nat MURRAY Admitting Unavailable Peggy Muñoz MD Primary Care Provider [phone] Geoffrey Ibrahim DO Attending Provider [phone] Peggy Muñoz MD Primary Care Provider [phone] Geoffrey Ibrahim DO Attending Provider [phone] Leti Ren PA-C Attending Provider [phone] NON STAFF Primary Care Provider Unavailjeremiah Rodgers MD, Immatthew Attending Provider Peggy Muñoz MD Attending Provider [phone] TAJ OTERO Referring Unavailable JEB SANON Referring Unavailable JEB SANON Referring Unavailable HUNTER SANONIN Referring Unavailable TAJ OTERO Referring Unavailable TAJ OTERO Attending Unavailable TAJ OTERO Admitting Unavailable TAJ OTERO Attending Unavailable MARY LOMAX Attending Unavailable PEGGY MUÑOZ Primary Care Unavailable Peggy Muñoz MD Primary Care Provider [phone] Unallocated MD, Noms Provider Primary Care Provi theron CRISPIN EARLY Attending Unavailable Geoffrey Ibrahim DO Attending Provider [phone] Derrek Rodgers MD Attending Provider Peggy Muñoz MD Primary Care Provider Marti Khan APRN Attending Provider [phone] Ana Maria SANCHEZ, Derrek Other Provider Kelley Potts CMA Attending Provider Unavailabl e Truman Ulloa DO Attending Provider [phone] Asamatthew, Immatthew Attending Unavailable Peggy Muñoz M Primary Care Unavailable Asaad, Imad Admitting Unavailable Rashaad, Peggy M Primary Care Unavailable Rogelio Ibrahimin A Admitting Unavailable Rogelio Ibrahimin A Attending Unavailable Peggy Muñoz M Attending Unavailable Peggy Muñoz Admitting Unavailable Truman Ulloa Attending Unavailable Truman Ulloa Admitting Unavailable Leti Ren Attending Unavailable Leti Ren Admitting Unavailable NON STAFF Primary Care Unavailable Marti Khan Attending Unavailable Marti Khan Admitting Unavailable Rashaad Peggy M Admitting Unavailable Peggy Muñoz M Attending Unavailable Asaad, Imad Admitting Unavailable Asaad, Imad Attending Unavailable Rashaad, Peggy M Primary Care Unavailable Alexandria, Geoffrey A Admitting Unavailable Alexandria, Geoffrey A Attending Unavailable NON STAFF Primary Care Unavailable Alexandria Geoffrey A Admitting Unavailable Rogelio Ibrahimin A Attending Unavailable Asaad, Imad Admitting Unavailable Davidy, Peggy M Primary Care Unavailable Asaad, Imad Attending Unavailable Rashaad, Peggy M Primary Care Unavailable Alexandria, Geoffrey A Admitting Unavailable Alexandria Geoffrey A Attending Unavailable Medications Current Medications Medication Drug Class(es) Dates Sig (Normalized) Sig (Original) acetaminophen 500 mg oral tablet (11 sources) Start: 09-22-2024 take 2 tablets by mouth every eight hours albuterol 0.833 mg/ml / ipratropium bromide 0.167 mg/ml inhalation solution (1 source) Anticholinergic, beta2-Adrenergic Agonist Start: 01-12-2025 take 1 mL by inhalation every six hours amLODIPine 2.5 mg oral tablet (2 sources) Dihydropyridine Calcium Channel Elana Start: 11-25-2024 take 1 tablet by mouth once daily aspirin 81 mg oral tablet (14 sources) Platelet Aggregation Inhibitor, Nonsteroidal Anti-inflammatory Drug Start: 11-25-2024 take 1 capsule by mouth once daily Start: 09-22-2024 End: 11-05-2024 Aspirin (Mihaela Low Dose Aspi rin) 81 mg tablet,delayed release (DR/EC) Discontinued 81 MG PO Daily September 22, 2024 1:00am November 05, 2024 10:12am aspirin 81 mg ch ewable tablet Chew 1 tablet (81 mg total) and swallow in the morning. Active canagliflozin 100 mg oral tablet (15 sources) Sodium-Glucose Cotransporter 2 Inhibitor Start: 01-12-2025 take 1 tablet by mouth once daily Start: 06-09-2019 End: 09-21-2024 take 1 tablet by mouth once daily Canagliflozin (Invokana) 100 mg Tablet Discontinued 100 MG PO Daily June 09, 2019 1:00am September 21, 2024 9:37am carvedilol 6.25 mg oral tablet (20 sources) [...] take 1 tablet by mouth once daily Start: 06-09-2019 End: 11-05-2024 take 1 tablet by mouth twice daily Carvedilol (Coreg) 6.25 mg Tablet Discontinued 6.25 MG PO Twice daily June 09, 2019 1:00am November 05, 2024 10:15am citalopram 10 mg oral tablet (3 sources) Serotonin Reuptake Inhibitor Start: 11-18-2024 take 2 tablets by mouth once daily Start: 11-18-2024 take 1 tablet by rojas th once daily Citalopram (Celexa) 10 mg tablet Active 10 MG PO Daily November 18, 2024 12:00am DULoxetine 60 mg delayed release oral capsule (1 source) Serotonin and Norepinephrine Reuptake Inhibitor Start: 01-12-2025 take 1 capsule by mouth once daily ezetimibe 10 mg oral tablet (2 sources) Dietary Cholesterol Absorption Inhibitor Start: 11-25-2024 take 1 tablet by mouth once daily ferrous sulfate 325 mg oral tablet (18 sources) Start: 11-18-2024 take 1 tablet by mouth in the morning, then take 1 tablet by mouth at mealtime ferrous sulfate 325 (65 FE) MG tablet Take 1 tablet (325 mg total) by mouth in the morning and 1 tablet (325 mg total) in the evening. Take with meals. 12/03/2024 Active Start: 07-24-2019 End: 11-05-2024 take 1 tablet [...] 2019 12:00am furosemide 20 mg oral tablet (20 sources) Loop Diuretic Start: 11-18-2024 Start: 11-05-2024 End: 11-18-2024 take 1 tablet by mouth once daily Furosemide (Lasix) 20 mg tablet Discontinued 20 MG PO Daily November 05, 2024 10:41am November 18, 2024 8:37am Start: 06-09-2019 End: 11-05-2024 Furosemide (Lasix) 20 mg Tab let Discontinued 20 MG PO Q48H June 09, 2019 1:00am November 05, 2024 10:41am lactulose 667 mg/ml oral solution (2 sources) Osmotic Laxative Start: 11-25-2024 levothyroxine sodium 0.05 mg oral tablet (6 sources) l-Thyroxine Start: 12-07-2024 take 1 tablet by mouth once daily liothyronine sodium 0.005 mg oral tablet (6 sources) l-Triiodothyronin e Start: 12-15-2024 take 1 tablet by mouth once daily nystatin 100 unt/mg topical powder (1 source) Polyene Antifungal nystatin (MYCOSTATIN) powder Apply 1 Application topically in the morning and 1 Application before bedtime. 100,000 unit/gram; amt: Small AMT- skin folds; topical. Active omeprazole 40 mg delayed release oral capsule (2 sources) Proton Pump Inhibitor Start: 01-19-2025 take 1 capsule by mouth once daily Start: 01-19-2025 take 1 capsule by mouth twice daily pantoprazole 40 mg delayed release oral tablet (1 source) Proton Pump Inhibitor take 1 tablet by mouth in the morning pantoprazole (PROTONIX) 40 mg EC tablet Take 1 tablet (40 mg total) by mouth in the morning. Active microencapsulated potassium chloride 20 meq extended release oral tablet (15 sources) Start: 12-22-19 take 1 tablet by mouth in the morning potassium chloride (KLOR-CON M 20) 20 MEQ CR tablet Take 1 tablet (20 mEq total) by mouth in the morning. 12/21/2024 Active Start: 06-09-2019 take 20 mEq by mouth once jomar y QUEtiapine 25 mg oral tablet (2 sources) Atypical Antipsychotic Start: 11-25-2024 take 1 tablet by mouth once daily sacubitril 24 mg / valsartan 26 mg oral tablet (2 sources) Angiotensin 2 Receptor Elana Start: 01-12-2025 take 1 tablet by mouth twice daily Start: 12-28-2024 take 1 tablet by rojas th in the morning ENTRESTO 24-26 mg tablet Take 1 tablet by mouth in the morning and 1 tablet before bedtime. 12/28/2024 Active SITagliptin 100 mg oral tablet (5 sources) Dipeptidyl Peptidase 4 Inhibitor Start: 12-15-2024 take 1 tablet by mouth once daily spironolactone 50 mg oral tablet (20 sources) Aldosterone Antagonist Start: 12-21-2024 take 1 tablet by mouth in the morning spironolactone (Aldactone) 50 MG tablet Take 50 mg by mouth in the morning and 50 mg in the evening. Take with meals. 12/21/2024 Active Start: 11-18-2024 take 2 tablets by mo uth twice daily Start: 11-05-2024 End: 11-18-2024 take 2 tablets [...] 12:00am vitamin b12 1 mg oral capsule (17 sources) Vitamin B12 Start: 11-25-2024 take 1 capsule by mo [facility] once daily Start: 07-24-2019 End: 11-05-2024 Cyanocobalamin (Vitamin B-12 ) (Vitamin B-12) 500 mcg Tablet Discontinued 5000 MCG PO Daily July 24, 2019 1:00am November 05, 2024 10:12am Start: 07-24-2019 End: 11-05-2024 Cyanocobalamin (Vitamin B-12 [...] mg / clavulanate 125 mg oral tablet (5 sources) Penicillin-class Antibacterial Start: 11-05-2024 End: 11-25-2024 take 1 tablet by mouth twice daily Amoxicillin-Pot Clavulanate 875-125 mg tablet Discontinued 1 TAB PO Twice daily November 05, 2024 12:00am November 25, 2024 2:29pm ascorbic acid 250 mg oral tablet (15 sources) Vitamin C Start: 11-18-2024 End: 11-25-2024 [...] 21, 2024 1:00am November 05, 2024 10:12am cholecalciferol 0.05 mg oral capsule (15 sources) Vitamin D Start: 11-18-2024 End: 11-25-2024 [...] 21, 2024 1:00am November 05, 2024 10:12am glimepiride 4 mg oral tablet (15 sources) Sulfonylurea Start: 11-18-2024 End: 01-12-2025 take 1 tablet by mouth once daily Glimepiride 4 mg tablet Discontinued 4 MG PO Daily November 18, 2024 12:00am January 12, 2025 11:27am Start: 09-21-2024 End: 11-05-2024 take 1 tablet by mouth once daily Glimepiride 4 mg tablet Discontinued 4 MG PO Daily September 21, 2024 1:00am November 05, 2024 10:13am levoFLOXacin 750 mg oral tablet (7 sources) Quinolone Antimicrobial Start: 11-25-2024 End: 01-12-2025 take 1 tablet by mouth once daily Levofloxacin 750 mg tablet Discontinued 750 MG PO Daily November 25, 2024 12:00am January 12, 2025 11:27am Start: 11-05-2024 End: 11-18-2024 take 1 tablet by mouth once daily Levofloxacin 750 mg tablet Discontinued 750 MG PO Daily November 05, 2024 12:00am November 18, 2024 8:34am lisinopril 2.5 mg oral tablet (14 sources) Angiotensin Converting Enzyme Inhibitor Start: 06-09-2019 End: 09-21-2024 take 1 tablet by mouth once daily Lisinopril 2.5 mg Tablet Discontinued 2.5 MG PO Daily June 09, 2019 1:00am September 21, 2024 9:36am mecobalamin 5 mg disintegrating oral tablet (3 sources) Start: 11-18-2024 End: 11-25-2024 Mecobalamin (Vitamin B12) 5,000 mcg tablet,disintegra ting Discontinued MCG PO November 18, 2024 12:00am November 25, 2024 2:27pm OLANZapine 2.5 mg oral tablet (3 sources) Atypical Antipsychotic Start: 11-18-2024 End: 01-12-2025 take 1 tablet by mouth once daily at bedtime Olanzapine 2.5 mg tablet Discontinued 2.5 MG PO Daily at bedtime November 18, 2024 12:00am January 12, 2025 11:27am pioglitazone 15 mg oral tablet (14 sources) Peroxisome Proliferator Receptor alpha Agonist, Peroxisome Proliferator Receptor gamma Agonist, Thiazolidinedione Start: 06-09-2019 End: 09-21-2024 take 1 tablet by mouth once daily Pioglitazone (Actos) 15 mg Tablet Discontinued 15 MG PO Daily June 09, 2019 1:00am September 21, 2024 9:36am rifAXIMin 550 mg oral tablet (5 sources) Rifamycin Antibacterial Start: 11-05-2024 End: 11-18-2024 take 1 tablet by mouth twice daily Rifaximin 550 mg tablet Discontinued 550 MG PO Twice daily November 05, 2024 12:00am November 18, 2024 8:34am Sod Picosulf-Mag Ox-Citric Ac (5 sources) Start: 11-05-2024 End: 01-12-2025 take 1 dose by mouth once daily Sod Picosulf-Mag Ox-Citric Ac (Clenpiq) 10 mg-3.5 gram- 12 gram/175 mL solution Discontinued 175 ML PO Daily 350 0 November 05, 2024 12:00am January 12, 2025 11:27am Take first dose at 3pm evening before colonoscopy; second dose at 9 pm night before colonoscopy Start: 11-05-2024 take 1 dose by mouth once daily Sod Picosulf-Mag Ox-Citric Ac (Clenpiq) 10 mg-3.5 gram- 12 gram/175 mL solution Active 175 ML PO Daily 350 0 November 05, 2024 12:00am Take first dose at 3pm evening before colonoscopy; second dose at 9 pm night before colonoscopy traMADol hydrochloride 50 mg oral tablet (11 sources) Opioid Agonist Start: 09-22-2024 End: 11-05-2024 take 1 tablet by mouth every four hours as needed for pain Tramadol 50 mg tablet Discontinued 50 MG PO Q4H as needed for pain 30 September 22, 2024 1:00am November 05, 2024 10:14am zinc acetate 50 mg oral capsule (3 sources) Start: 11-18-2024 End: 11-25-2024 take 1 capsule by mouth once daily Zinc Acetate (Galzin) 50 mg (zinc) capsule Discontinued 50 MG PO Daily November 18, 2024 12:00am November 25, 2024 2:27pm zinc sulfate 220 mg oral tablet (14 sources) Start: 06-09-2019 End: 11-05-2024 take 1 tablet by mouth twice daily Zinc Sulfate 220 mg Tablet Discontinued 220 MG PO Twice daily June 09, 2019 1:00am November 05, 2024 10:14am Problems Active Problems Problem Classification Problem Date Documented Da te Episodic/Chronic Administrative/social admission (2 sources) Other reduced mobility; Translations: [Impaired mobility and activities of daily living] 01-12-2025 Episodic Chronic ulcer of skin (4 sources) Pressure ulcer of left heel, stage 3; Translations: [Pressure injury of left heel, stage 3] 01-12-2025 Chronic Deficiency and other anemia (15 sources) Pancytopenia; Translations: [Other pancytopenia] 06-09-2019 Chronic [...] [Essential (primary) hypertension] Onset: 04-29-2024 Chronic Hepatitis (20 sources) Cirrhosis - non-alcoholic; Translations: [Nonalcoholic steatohepatitis (VELOZ)] Onset: 11-05-2024 06-09-2019 Chronic Mycoses (2 sources) Pain in toe; Translations: [Tinea unguium] 01-18-2025 Episodic Open wounds of extremities (2 sources) Open wound of right hand; Translations: [Unspecified open wound of right hand, initial encounter] 01-12-2025 Episodic Open wounds of extremities (5 sources) Open wound of left hand; Translations: [Unspecified open wound of left hand, initial encounter] Onset: 02-03-2025 01-12-2025 Episodic Other circulatory disease (4 sources) Presence of other vascular implants and grafts; Translations: [Other postprocedural status] 11-05-2024 Chronic Other diseases of veins and lymphatics (2 sources) Vascular insufficiency; Translations: [Venous insufficiency (chronic) (peripheral)] 01-18-2025 Episodic Other gastrointestinal disorders (6 sources) Refractory ascites; Translations: [Other ascites] 11-05-2024 Episodic Other gastrointestinal disorders (6 sources) History of esophageal varices; Translations: [Personal history of other diseases of the digestive system] 11-05-2024 Episodic Other gastrointestinal disorders (4 sources) Personal history of other diseases of the digestive system; Translations: [Personal history of other diseases of digestive system] 11-05-2024 Episodic Other gastrointestinal disorders (4 sources) Other ascites; Translations: [Other ascites] 11-05-2024 Episodic Other liver diseases (6 sources) Portal hypertension; Translations: [Portal hypertension] 11-05-2024 Chronic Other liver diseases (5 sources) Portal hypertension; Translations: [Portal hypertension] Onset: 11-26-2024 11-05-2024 Chronic Other liver diseases (1 source) Unspecified cirrhosis of liver; Translations: [Unspecified cirrhosis of liver] Onset: 01-19-2025 Chronic Other liver diseases (6 sources) Decompensated cirrhosis of liver; Translations: [Hepatic failure, unspecified without coma] 11-05-2024 Episodic Other liver diseases (4 sources) Hepatic failure, unspecified without coma; Translations: [Cirrhosis of liver without mention of alcohol] 11-05-2024 Episodic Other screening for suspected conditions (not mental disorders or infectious disease) (6 sources) Abnormal findings on diagnostic imaging of heart and coronary circulation; Translations: [Abnormal result of other cardiovascular function study] Onset: 05-01-2024 Episodic Residual codes; unclassified (15 sources) Other specified postprocedural states; Translations: [Other postprocedural status] 10-07-2024 Episodic Residual codes; unclassified (1 source) Pain, unspecified; Translations: [Pain, unspecified] Onset: 12-30-2024 Episodic Residual codes; unclassified (2 sources) At risk for impaired skin integrity ; Translations: [Other specified personal risk factors, not elsewhere classified] 01-12-2025 Episodic Residual codes; unclassified (1 source) Postprocedural state finding; Translations: [Other specified postprocedural states] 11-02-2024 Episodic Unclassified (1 source) Cholelithiasis Onset: 2024 Past or Other Problems Problem Classification Problem Date Documented Da te Episodic/Chronic Fracture of upper limb (20 sources) Fracture of coronoid process of ulna; Translations: [Displaced fracture of coronoid process of left ulna, initial encounter for closed fracture] Onset: 09-22-2024 09-18-2024 Episodic Other lower respiratory disease (2 sources) Shortness of breath; Translations: [Shortness of breath] Onset: 05-05-2024 Episodic Results Test Name Value Interpretation Reference Range Facility Urine Cultureon 01-27-2025 Bacteria identified Cx Nom (U) ORGANISM: Escherichia coli (O:ESCCOL) [place] Count >100,000 Aerobic LACHELLE Charge (NMIC56) SUSCEPTIBILITY ORGANISM: O:ESCCOL ANTIBIOTIC INTERPRETATION LACHELLE Amikacin S <16 Amoxacillin/K Clavulanate S <8 Ampicillin R >16 Ampicillin/Sulbactam I 1616/8 Aztreonam S <4 Cefazolin S 4 Cefepime [...] RESISTANT TO ALL B-LACTAM DRUGS. PERFORMED BY: [place] [address] PATHOLOGIST HIV CTS SPECIALIST RADHA PFEIFFER M.D. Normal The Counts Include [address] [facility] At [facility] Comment on above: Performed By: #### A LPHA PHEN, MITOM2, HBSAG, HCBIGM, HBCAB, HBSAB, DYLAN, SMAB, HAAB, HAABT, HCV RX PCR, AFPTM, CERULOP, L-K MICRO, IGG, HEMOCHROM #### [facility] , #### KYLE, CMP, PT, CBC #### [address] ALL AMMONIAon 01-26-2025 Ammonia (P) [Moles/Vol] 28 umol/L 11 - 32 umol/L [facility] ALL AMMONIAon 01-21-2025 Ammonia (P) [Moles/Vol] 36 umol/L High 11 - 32 umol/L [facility] Interpretation and review of laboratory results Abnormal [facility] Glucose Poct Glucometerson 0 01-19-2025 Glucose [Mass/Vol] 158 mg/dL Normal The Counts Include 234 [facility] At [facility] Comment on above: Result Comment: [place] Glucose Reference Range is dependent on time and content of last meal. Glucose of more than 200 mg/dL in a nonstressed, ambulatory subject supports the diagnosis of Diabetes Mellitus. PERFORMED BY: [facility] [address] [place] [address] PATHOLOGIST HIV CTS SPECIALIST RADHA PFEIFFER M.D. Performed By: #### A LPHA PHEN, MITOM2, HBSAG, HCBIGM, HBCAB, HBSAB, DYLAN, SMAB, HAAB, HAABT, HCV RX PCR, AFPTM, CERULOP, L-K MICRO, IGG, HEMOCHROM #### [facility] , #### KYLE, CMP, PT, CBC #### [facility] [address] [place] [id number] [facility] 01-19-2025 L ------- Specimen: [id number] Received: 01/19/25 Status: ARYA Ortizsantosh Num: [id number] Spec Type: Surgical Subm Dr: Derrek Rodgers MD Tissues: A Gastric Biopsy (GASTRIC BX) B Colon Biopsy (CECAL POLYP) Procedures: VIKI/Vivek, Gross/Micro L4/2 Age/ Patient Sex Location Account Attending Physician NaderGerson Marshall 69/M [id number] Derrek Rodgers MD SPEC NUM: [id number] RECD: 01/19/250 STATUS: ARYA VARGAS NUM: [id number] NAE: 01/19/[address] [facility] [address]: Derrek Rodgers MD ENTERED: 01/19/25-[address] [facility] [address]: ROSAS TYPE: Surgical DEPT: S ENTERED BY: [id number] RECV BY: [id number] ORDERED: HE/7, Gross/Micro L4/2 ORDERED: HE/7, Gross/Micro L4/2 Pathological Diagnosis A. Stomach (mucosal [...] submitted in a single cassette. (1, ns, [id number] A) J Part B is received in formalin labeled with the patients name, date of , and cecal polyp is a cordero-mendoza, focally erythematous, friable, 0.4 cm in greatest dimension polypoid fragment. The specimen is entirely submitted in a single cassette. (1, ns, [id number] B) JG Specimen: [id number] Received: 01/19/25 Status: ARYA Vargas Num: [id number] Spec Type: Surgical Subm Dr: Derrek Rodgers MD Tissues: A Gastric Biopsy (GASTRIC BX) B Colon Biopsy (CECAL POLYP) Procedures: /Vivek, Gross/Micro L4/2 Patient: Gerson Penn [id number] (Continued) Specimen: [id number] Received: 01/19/25 (Continued) Signed (signature on file) Sedrick Jeffries Jr., MD 01/21/25 0911 Specimen: [id number] Received: 01/19/25 Status: ARYA Vargas Num: [id number] Spec Type: Surgical Subm Dr: Derrek Rodgers MD Tissues: A Gastric Biopsy (GASTRIC BX) B Colon Biopsy (CECAL POLYP) Procedures: VIKI/Vivek, Gross/Micro L4/2 Patient: Gerson Penn [id number] (Continued) Specimen: [id number] Received: 01/19/25 (Continued) CPT Codes 73128 x 2 Specimen: [id number] Received: 01/19/25 Status: ARYA Vargas Num: [id number] Spec Type: Surgical Subm Dr: Derrek Rodgers MD Tissues: A Gastric Biopsy (GASTRIC BX) B Colon Biopsy (CECAL POLYP) Procedures: VIKI/Vivek, Gross/Micro L4/2 Patient: Gerson Penn [id number] (Continued) Signed (signature on file) Sedrick Jeffries Jr., MD 01/21/[address] [place] The Counts Include 234 [facility] At [facility] Urine Cultureon 01-08-2025 Bacteria identified Cx Nom (U) ORGANISM: Escherichia coli (O:ESCCOL) [place] Count 30,000 Aerobic LACHELLE Charge (NMIC56) SUSCEPTIBILITY [...] RESISTANT TO ALL B-LACTAM DRUGS. PERFORMED BY: [place] [address] PATHOLOGIST HIV CTS SPECIALIST RADHA PFEIFFER M.D. Normal The Counts Include 234 [facility] At [facility] Comment on above: Performed By: #### A LPHA PHEN, MITOM2, HBSAG, HCBIGM, HBCAB, HBSAB, DYLAN, SMAB, HAAB, HAABT, HCV RX PCR, AFPTM, CERULOP, L-K MICRO, IGG, HEMOCHROM #### [facility] , #### KYLE, CMP, PT, CBC #### [facility] [address] [place] [address] Urine cultureOrdered By: Wilfrido Muñoz on 01-08-2025 Bacteria identified Cx Nom (U) Escherichia coli Abnormal [facility] CT abdomen wo/w conon 2024 CT abdomen wo/w con [facility] Main [place] [address] [place] [address] CT Scan Report Signed Patient: Gerson Penn MR#: [id number] : 1955 Acct:[id number] Age/Sex: 68 / M ADM Date: 11/26/24 Loc: CT Room: Type: [facility] Attending Dr: Derrek Rodgers MD Copies [...] Jr., D.OBranden 11/26/2024 3:27 PM Dictation Location: [place] [address] Transcribed By: [facility] 11/26/24 1527 Dictated By: Gage Noland Jr 11/26/24 1519 Signed By: 11/26/24 1527 Normal The Counts Include 234 [facility] At [facility] Urine Cultureon 11-18-2024 Bacteria identified Cx Nom (U) ORGANISM: Enterobacter cloacae complex (O:ENTCLOCPLX) [place] Count >100,000 Aerobic LACHELLE Charge (NMIC56) SUSCEPTIBILITY [...] RESISTANT TO ALL B-LACTAM DRUGS. PERFORMED BY: [address] [address] PATHOLOGIST HIV CTS SPECIALIST LEANDRA WALSH M.D. Normal The Counts Include 234 [facility] At [facility] Comment on above: Performed By: #### A LPHA PHEN, MITOM2, HBSAG, HCBIGM, HBCAB, HBSAB, DYLAN, SMAB, HAAB, HAABT, HCV RX PCR, AFPTM, CERULOP, L-K MICRO, IGG, HEMOCHROM #### [facility] , #### KYLE, CMP, PT, CBC #### [place] [address] Urine cultureOrdered By: Wilfrido Muñoz on 11-18-2024 Bacteria identified Cx Nom (U) Abnormal [facility] Bacteria identified Cx Nom (U) Enterobacter cloacae complex Abnormal [facility] AFP Tumor Marker, Serumon AFP Tumor Marker, Serum 9.3 ng/mL High 0.0-8.4 The Counts Include [address] [facility] Comment on above: Result Comment: [employer] Electrochemiluminescence Immunoassay (ECLIA) Values obtained with different assay methods or kits cannot be used interchangeably. Results cannot be interpreted as absolute evidence of the presence or absence of malignant disease. This test is not interpretable in females. Performed at: [facility] [id number] Maintenance Leader: Stewart Palmer PhD, Phone: [phone] Performed By: #### A LPHA PHEN, MITOM2, HBSAG, HCBIGM, HBCAB, HBSAB, DYLAN, SMAB, HAAB, HAABT, HCV RX PCR, AFPTM, CERULOP, L-K MICRO, IGG, HEMOCHROM #### [facility] , #### KYLE, CMP, PT, CBC #### [address] [address] DYL[place] Antinuclear Antibodieson 11-05-2024 Antinuclear Abs, IFA Negative Normal . The Counts Include [address] [facility] Comment on above: Result Comment: Nega tive <1:80 Borderline 1:80 Positive >1:80 ICAP nomenclature: AC-[id number] For more information about Hep-2 cell patterns use ANApatterns.org, the official website for the International Consensus on Antinuclear Antibody (DYLAN) Patterns (ICAP). Performed at: [facility] [address] [id number] Maintenance Leader: Stewart Palmer PhD, Phone: [phone] Performed By: #### A LPHA PHEN, MITOM2, HBSAG, HCBIGM, HBCAB, HBSAB, DYLAN, SMAB, HAAB, HAABT, HCV RX PCR, AFPTM, CERULOP, L-K MICRO, IGG, HEMOCHROM #### [facility] , #### KYLE, CMP, PT, CBC #### [facility] [address] Actin smooth muscle IgG Ab [ Units/volume] in SerumOrdered By: Imad Asaad on 11-05-2024 Actin smooth muscle IgG Qn (S) Actin smooth muscle IgG Ab [Units/volume] in Serum 0-19 [facility] Comment on above: Negative 0 - 19 Weak positive 20 - 30 Moderate to strong positive >30 Actin Antibodies are found in 52-85% of patients with autoimmune hepatitis or chronic active hepatitis and in 22% of patients with primary biliary cirrhosis. Actin smooth muscle IgG Qn (S) 4 Units 0-19 [facility] Comment on above: Negative 0 - 19 [...] aminotransferase [Enzymatic activity/volume] in Serum or Plasma [address] ALT [Catalytic activity/Vol] 86 U/L [address] Comment on above: Performed By: #### A LPHA PHEN, MITOM2, HBSAG, HCBIGM, HBCAB, HBSAB, DYLAN, SMAB, HAAB, HAABT, HCV RX PCR, AFPTM, CERULOP, L-K MICRO, IGG, HEMOCHROM #### [facility] , #### KYLE, CMP, PT, CBC #### [facility] [address] Albumin [Mass/volume] in Ser um or Plasma by Bromocresol green (BCG) dye binding methoOrdered By: Imad Asaad on 11-05-2024 Albumin BCG dye [Mass/Vol] Albumin [Mass/volume] in Serum or Plasma by Bromocresol green (BCG) dye binding metho Low 3.5-5.7 [facility] Albumin BCG dye [Mass/Vol] 2.1 g/dL Low 3.5-5.7 [facility] Alkaline phosphatase [Enzyma tic activity/volume] in Serum or PlasmaOrdered By: Derrek Rodgers on 11-05-2024 ALP [Catalytic activity/Vol] Alkaline phosphatase [Enzymatic activity/volume] in Serum or Plasma High 34-104 [facility] ALP [Catalytic activity/Vol] 245 U/L High 34-104 [facility] Comment on above: Performed By: #### A LPHA PHEN, MITOM2, HBSAG, HCBIGM, HBCAB, HBSAB, DYLAN, SMAB, HAAB, HAABT, HCV RX PCR, AFPTM, CERULOP, L-K MICRO, IGG, HEMOCHROM #### [facility] , #### KYLE, CMP, PT, CBC #### [facility] [address] Ohblb-2-Kgxrcismdzg Phenotyp gonzales 11-05-2024 Alpha 1 Anti-Trypsin 104 mg/dL Normal 101-187 The Counts Include [address] [facility] Comment on above: Performed By: #### A LPHA PHEN, MITOM2, HBSAG, HCBIGM, HBCAB, HBSAB, DYLAN, SMAB, HAAB, HAABT, HCV RX PCR, AFPTM, CERULOP, L-K MICRO, IGG, HEMOCHROM #### [facility] , #### KYLE, CMP, PT, CBC #### [facility] [address] [place] [address] Phenotype (P1) MS Normal . The Counts Include [address] [facility] Comment on above: Result Comment: MM Phenotype is considered to be normal , producing normal serum levels of ckhnb-0-rgdrksqd inhibitor and not associated with clinical disease. [...] Ranges used to confirm phenotype. Performed at: [address] [id number] Maintenance Leader: Stewart Palmer PhD, Phone: [phone] Performed at: [address] [id number] Maintenance Leader: Beto Vincent MD, Phone: [phone] Performed By: #### A LPHA PHEN, MITOM2, HBSAG, HCBIGM, HBCAB, HBSAB, DYLAN, SMAB, HAAB, HAABT, HCV RX PCR, AFPTM, CERULOP, L-K MICRO, IGG, HEMOCHROM #### [facility] , #### KYLE, CMP, PT, CBC #### [facility] [address] [place] [address] Aspartate aminotransferase [ Enzymatic activity/volume] in Serum or PlasmaOrdered By: Imad Asaad on 11-05-2024 AST [Catalytic activity/Vol] Aspartate aminotransferase [Enzymatic activity/volume] in Serum or Plasma [address] AST [Catalytic activity/Vol] 77 U/L [address] Comment on above: Performed By: #### A LPHA PHEN, MITOM2, HBSAG, HCBIGM, HBCAB, HBSAB, DYLAN, SMAB, HAAB, HAABT, HCV RX PCR, AFPTM, CERULOP, L-K MICRO, IGG, HEMOCHROM #### [facility] , #### KYLE, CMP, PT, CBC #### [facility] [address] [place] [address] [place] Basophils Auto (Bld) [#/Vol] Ordered By: Imad Asaad on 11-05-2024 Basophils (Bld) [#/Vol] Automated basophil count 0.0-0.2 [facility] Basophils [#/volume] in Bloo d by Automated countOrdered By: Imad Asaad on 11-05-2024 Basophils (Bld) [#/Vol] 0.0 10*3/uL Normal 0.0-0.2 [facility] Comment on above: Result Comment: PERF ORMED BY: [place] [address] PATHOLOGIST HIV CTS SPECIALIST LEANDRA WALSH M.D. Performed By: #### A LPHA PHEN, MITOM2, HBSAG, HCBIGM, HBCAB, HBSAB, DYLAN, SMAB, HAAB, HAABT, HCV RX PCR, AFPTM, CERULOP, L-K MICRO, IGG, HEMOCHROM #### [facility] , #### KYLE, CMP, PT, CBC #### [facility] [address] [place] [address] Basophils/100 WBC Auto (Bld) Ordered By: Imad Asaad on 11-05-2024 Basophils/100 WBC (Bld) Automated basophil % . [facility] Basophils/100 leukocytes in Blood by Automated countOrdered By: Imad Asaad on 11-05-2024 Basophils/100 WBC (Bld) 0.7 % Normal . [facility] Comment on above: Performed By: #### A LPHA PHEN, MITOM2, HBSAG, HCBIGM, HBCAB, HBSAB, DYLAN, SMAB, HAAB, HAABT, HCV RX PCR, AFPTM, CERULOP, L-K MICRO, IGG, HEMOCHROM #### [facility] , #### KYLE, CMP, PT, CBC #### [facility] [address] [place] [address] Bilirubin.total [Mass/volume ] in Serum or PlasmaOrdered By: Imad Asaad on 11-05-2024 Bilirubin [Mass/Vol] Bilirubin.total [Mass/volume] in Serum or Plasma High 0.3-1.0 [facility] Comment on above: Samples from patient s who have taken Naproxen have shown spurious elevation in Total Bilirubin levels. A metabolite of Naproxen, O-desmethylnaproxen, has been shown to interfere with the Jendrassik-Grof method for measuring Total Bilirubin. Bilirubin [Mass/Vol] 3.2 mg/dL High 0.3-1.0 [facility] Comment on above: Samples from patient s who have taken Naproxen have shown spurious elevation in Total Bilirubin levels. A metabolite of Naproxen, O-desmethylnaproxen, has been shown to interfere with the Jendrassik-Grof method for measuring Total Bilirubin. Result Comment: Samp les from patients who have taken Naproxen have shown spurious elevation in Total Bilirubin levels. A metabolite of Naproxen, O-desmethylnaproxen, has been shown to interfere with the Jendrassik-Grof method for measuring Total Bilirubin. Performed By: #### A LPHA PHEN, MITOM2, HBSAG, HCBIGM, HBCAB, HBSAB, DYLAN, SMAB, HAAB, HAABT, HCV RX PCR, AFPTM, CERULOP, L-K MICRO, IGG, HEMOCHROM #### [facility] , #### KYLE, CMP, PT, CBC #### [facility] [address] Blood or tissue HFE gene mut ations identification by molecular genetics methodOrdered By: Derrek Rodgers on 11-05-2024 HFE gene targeted mutation analysis [facility] (Bld/Tiss) Blood or tissue HFE gene mutations identification by molecular genetics method . [facility] Comment on above: Result:c.845G>A (p.C yj151Yrl) - Not Detectedc.187C>G (p.Zkq76Buw) - Not Detectedc.193A>T (p.Kqc79Tim) - Not DetectedNot associated with increased risk [...] recommended for patientswho are homozygous for c.845G>A (p.Kix916Wyn) and have yetto experience clinical symptoms.Comments:The most common HFE variants associated with hereditaryhemochromatosis are c.845G>A (p.Jip616Bob), c.187C>G(p.Ezd05Vkt), c.193A>T (p.Omg21Rjk). While patientshomozygous for c.845G>A (p.Pbz978Rgi) are the most likelyto present clinical symptoms, less than 10% developclinically significant iron overload with tissue and organdamage.Genetic counseling is recommended to discuss the potentialclinical implications of positive results, as well asrecommendations for testing family members.Genetic Coordinators are available for health careproviders to discuss results at [phone] Details:Three variants analyzed:c.845G>A (p.Qwe950Tgp), commonly referred to as C282Yc.187C>G (p.Bwn45Grp), commonly referred to as H63Dc.193A>T (p.Aqt03Kyr), commonly referred to as X84VFcqnjgh/Limitations:DNA Analysis of the HFE gene (NM_000410.4) was [...] was developed and its performancecharacteristics determined by [facility]. It has not beencleared or approved by the Food and Drug Administration.References:Rafa BR, Vel PC, Art KV, Wai LW, Nate ;[employer] Liver Diseases.Diagnosis and management of hemochromatosis: 2011 practiceguideline by the [employer] for the Study ofLiver Diseases. Hepatology. 2010;54(1):328-43. doi:10.1002/hep.32793. PMID: 85229462; PMCID: [id number].Nigel G, Clay P, Fatoumata NINA, Mervat H, Juan O,Alex S, Raulito I, Marv Harrison, Jimbo Johns. [facility] best practiceguidelines for the molecular genetic diagnosis ofhereditary hemochromatosis (HH). Eur J Hum Neelima. 2016Apr;24(4):479-95. doi: 10.1038/ejhg.2015.128. Epub 2014. PMID: 49059529; PMCID: [id number]. HFE gene targeted mutation analysis [facility] (Bld/Tiss) Comment . [facility] Comment on above: Result:c.845G>A (p.C wk930Hqw) - Not Detectedc.187C>G (p.Qsp86Xrx) - Not Detectedc.193A>T (p.Csw91Wkm) - Not DetectedNot associated with increased risk [...] recommended for patientswho are homozygous for c.845G>A (p.Nfp884Dlp) and have yetto experience clinical symptoms.Comments:The most common HFE variants associated with hereditaryhemochromatosis are c.845G>A (p.Gag272Isx), c.187C>G(p.Zuw80Gcr), c.193A>T (p.Rpq37Dux). While patientshomozygous for c.845G>A (p.Hhl285Mmq) are the most likelyto present clinical symptoms, less than 10% developclinically significant iron overload with tissue and organdamage.Genetic counseling is recommended to discuss the potentialclinical implications of positive results, as well asrecommendations for testing family members.Genetic Coordinators are available for health careproviders to discuss results at [phone]).Test Details:Three variants analyzed:c.845G>A (p.Ako222Ypa), commonly referred to as C282Yc.187C>G (p.Vhc71Lup), commonly referred to as H63Dc.193A>T (p.Svy83Rsu), commonly referred to as S40KTlwzutf/Limitations:DNA Analysis of the HFE gene (NM_000410.4) was [...] was developed and its performancecharacteristics determined by [facility]. It has not beencleared or approved by the Food and Drug Administration.References:Rafa BR, Vel PC, Art KV, Wai LW, Nate ;[employer] Liver Diseases.Diagnosis and management of hemochromatosis: 2011 practiceguideline by the [employer] for the Study ofLiver Diseases. Hepatology. 2011 Jan;54(1):328-43. doi:10.1002/hep.47905. PMID: 49976581; PMCID: [id number].Nigel G, Clay P, Fatoumata DW, Mervat H, Juan O,Alex S, Raulito I, Marv M, Jimbo S. [facility] best practiceguidelines for the molecular genetic diagnosis ofhereditary hemochromatosis (HH). Eur J Hum Neelima. 2016Apr;24(4):479-89. doi: 10.1038/ejhg.2015.128. Epub 2014. PMID: 71284113; PMCID: [id number]. Calcium [Mass/volume] in Ser um or PlasmaOrdered By: Imad Asamatthew on 11-05-2024 Calcium [Mass/Vol] Calcium [Mass/volume ] in Serum or Plasma 8.6-10.3 [facility] Calcium [Mass/Vol] 8.9 mg/dL Normal 8.6-10.3 [facility] Comment on above: Performed By: #### A LPHA PHEN, MITOM2, HBSAG, HCBIGM, HBCAB, HBSAB, DYLAN, SMAB, HAAB, HAABT, HCV RX PCR, AFPTM, CERULOP, L-K MICRO, IGG, HEMOCHROM #### [facility] , #### KYLE, CMP, PT, CBC #### [facility] [address] Carbon dioxide, total [Moles /volume] in Serum or PlasmaOrdered By: Imad Asaad on 11-05-2024 CO2 [Moles/Vol] Carbon dioxide, tota l [Moles/volume] in Serum or Plasma 21.0-31.0 [facility] CO2 [Moles/Vol] 28.4 mmol/L Normal 21.0-31.0 [facility] Comment on above: Performed By: #### A LPHA PHEN, MITOM2, HBSAG, HCBIGM, HBCAB, HBSAB, DYLAN, SMAB, HAAB, HAABT, HCV RX PCR, AFPTM, CERULOP, L-K MICRO, IGG, HEMOCHROM #### [facility] , #### KYLE, CMP, PT, CBC #### [facility] [address] [place] [address] [place] Ceruloplasminon 11-05-2024 Ceruloplasmin 19.1 mg/dL Normal 16.0-31.0 The Counts Include [address] [facility] Comment on above: Result Comment: Perf ormed at: CB - [facility] [address] [id number] Maintenance Leader: Stewart Palmer PhD, Phone: [phone] PERFORMED BY: [place] [address] PATHOLOGIST HIV CTS SPECIALIST LEANDRA WALSH M.D. Performed By: #### A LPHA PHEN, MITOM2, HBSAG, HCBIGM, HBCAB, HBSAB, DYLAN, SMAB, HAAB, HAABT, HCV RX PCR, AFPTM, CERULOP, L-K MICRO, IGG, HEMOCHROM #### [facility] , #### KYLE, CMP, PT, CBC #### [address] Chloride [Moles/volume] in S saud or PlasmaOrdered By: Derrek Rodgers on 11-05-2024 Chloride [Moles/Vol] Chloride [Moles/vol ume] in Serum or Plasma 98-107 [facility] Chloride [Moles/Vol] 100 mmol/L Normal 98-107 [facility] Comment on above: Performed By: #### A LPHA PHEN, MITOM2, HBSAG, HCBIGM, HBCAB, HBSAB, DYLAN, SMAB, HAAB, HAABT, HCV RX PCR, AFPTM, CERULOP, L-K MICRO, IGG, HEMOCHROM #### [facility] , #### KYLE, CMP, PT, CBC #### [facility] [address] [place] [address] Complete Blood Count Auto Di ffon 11-05-2024 Mean Corpuscular HGB Conc 33.9 g/dL Normal 32.5-35.6 The Counts Include [address] [facility] Comment on above: Performed By: #### A LPHA PHEN, MITOM2, HBSAG, HCBIGM, HBCAB, HBSAB, DYLAN, SMAB, HAAB, HAABT, HCV RX PCR, AFPTM, CERULOP, L-K MICRO, IGG, HEMOCHROM #### [facility] , #### KYLE, CMP, PT, CBC #### [address] NRBC% 0.1 /100{WBC} Normal 0-0.5 The Counts Include [address] [facility] Comment on above: Performed By: #### A LPHA PHEN, MITOM2, HBSAG, HCBIGM, HBCAB, HBSAB, DYLAN, SMAB, HAAB, HAABT, HCV RX PCR, AFPTM, CERULOP, L-K MICRO, IGG, HEMOCHROM #### [facility] , #### KYLE, CMP, PT, CBC #### [address] Comprehensive Metabolic Pane levy 11-05-2024 Albumin [Mass/Vol] 2.1 g/dL Low 3.5-5.7 The Counts Include [address] [facility] Comment on above: Performed By: #### A LPHA PHEN, MITOM2, HBSAG, HCBIGM, HBCAB, HBSAB, DYLAN, SMAB, HAAB, HAABT, HCV RX PCR, AFPTM, CERULOP, L-K MICRO, IGG, HEMOCHROM #### [facility] , #### KYLE, CMP, PT, CBC #### [address] GFR/1.73 sq M.predicted MDRD (S/P/Bld) [Vol rate/Area] mL/min/{1.73_m2} Normal The Counts Include [address] [facility] Comment on above: Performed By: #### A LPHA PHEN, MITOM2, HBSAG, HCBIGM, HBCAB, HBSAB, DYLAN, SMAB, HAAB, HAABT, HCV RX PCR, AFPTM, CERULOP, L-K MICRO, IGG, HEMOCHROM #### [facility] , #### KYLE, CMP, PT, CBC #### [address] Creatinine [Mass/volume] in Serum or PlasmaOrdered By: Derrek Rodgers on 11-05-2024 Creatinine [Mass/Vol] Creatinine [Mass/v olume] in Serum or Plasma 0.70-1.30 [facility] Creatinine [Mass/Vol] 1.18 mg/dL Normal 0.70-1.30 [facility] Comment on above: Performed By: #### A LPHA PHEN, MITOM2, HBSAG, HCBIGM, HBCAB, HBSAB, DYLAN, SMAB, HAAB, HAABT, HCV RX PCR, AFPTM, CERULOP, L-K MICRO, IGG, HEMOCHROM #### [facility] , #### KYLE, CMP, PT, CBC #### [facility] [address] [place] [address] [place] Eosinophils Auto (Bld) [#/Vo l]Ordered By: Imad Asaad on 11-05-2024 Eosinophils (Bld) [#/Vol] Automated eosinophil count 0.0-0.45 [facility] Eosinophils [#/volume] in Bl ood by Automated countOrdered By: Imad Asaad on 11-05-2024 Eosinophils (Bld) [#/Vol] 0.1 10*3/uL Normal 0.0-0.45 [facility] Comment on above: Performed By: #### A LPHA PHEN, MITOM2, HBSAG, HCBIGM, HBCAB, HBSAB, DYLAN, SMAB, HAAB, HAABT, HCV RX PCR, AFPTM, CERULOP, L-K MICRO, IGG, HEMOCHROM #### [facility] , #### KYLE, CMP, PT, CBC #### [facility] [address] [place] [address] [place] Eosinophils/100 WBC Auto (Bl d)Ordered By: Imad Asaad on 11-05-2024 Eosinophils/100 WBC (Bld) Automated eosinophil % . [facility] Eosinophils/100 leukocytes i n Blood by Automated countOrdered By: Imad Asaad on 11-05-2024 Eosinophils/100 WBC (Bld) 1.8 % Normal . [facility] Comment on above: Performed By: #### A LPHA PHEN, MITOM2, HBSAG, HCBIGM, HBCAB, HBSAB, DYLAN, SMAB, HAAB, HAABT, HCV RX PCR, AFPTM, CERULOP, L-K MICRO, IGG, HEMOCHROM #### [facility] , #### KYLE, CMP, PT, CBC #### [facility] [address] [place] [address] Erythrocyte distribution wid th Auto (RBC) [Ratio]Ordered By: Imad Asaad on 11-05-2024 Erythrocyte distribution width (RBC) [Ratio] Erythrocyte distribution width [Ratio] by Automated count High 12.0-14.8 [facility] Erythrocyte distribution wid th [Ratio] by Automated countOrdered By: Imad Asaad on 11-05-2024 Erythrocyte distribution width (RBC) [Ratio] 19.0 % High 12.0-14.8 [facility] Comment on above: Performed By: #### A LPHA PHEN, MITOM2, HBSAG, HCBIGM, HBCAB, HBSAB, DYLNA, SMAB, HAAB, HAABT, HCV RX PCR, AFPTM, CERULOP, L-K MICRO, IGG, HEMOCHROM #### [facility] , #### KYLE, CMP, PT, CBC #### [facility] [address] [place] [address] Erythrocytes [#/volume] in B lood by Automated countOrdered By: Imad Asaad on 11-05-2024 RBC (Bld) [#/Vol] 3.70 10*6/uL Low 3.90-5.60 [facility] Comment on above: Performed By: #### A LPHA PHEN, MITOM2, HBSAG, HCBIGM, HBCAB, HBSAB, DYLAN, SMAB, HAAB, HAABT, HCV RX PCR, AFPTM, CERULOP, L-K MICRO, IGG, HEMOCHROM #### [facility] , #### KYLE, CMP, PT, CBC #### [address] Ferritin [Mass/volume] in Se rum or PlasmaOrdered By: Imad Asaad on 11-05-2024 Ferritin [Mass/Vol] Ferritin [Mass/volum e] in Serum or Plasma High 23.9-336.2 [facility] Ferritin [Mass/Vol] 1486.4 ng/mL High 23.9-336.2 [facility] Comment on above: Result Comment: PERF ORMED BY: [facility] [address] [place] [address] PATHOLOGIST HIV CTS SPECIALIST LEANDRA WALSH M.D. Performed By: #### A LPHA PHEN, MITOM2, HBSAG, HCBIGM, HBCAB, HBSAB, DYLAN, SMAB, HAAB, HAABT, HCV RX PCR, AFPTM, CERULOP, L-K MICRO, IGG, HEMOCHROM #### [facility] , #### KYLE, CMP, PT, CBC #### [facility] [address] Globulin Calc (S) [Mass/Vol] Ordered By: Imad Asaad on 11-05-2024 Globulin (S) [Mass/Vol] Serum globulin measurement by calculation (mass/volume) [facility] Glucose [Mass/volume] in Ser um or PlasmaOrdered By: Imad Asaad on 11-05-2024 Glucose [Mass/Vol] Glucose [Mass/volume ] in Serum or Plasma High 70-100 [facility] Comment on above: ADA recommended refe rence rangeRandom Glucose Reference Range is dependent on time and content of last meal. Glucose of more than 200 mg/dL in a nonstressed, ambulatory subject supports the diagnosis of Diabetes Mellitus. Glucose [Mass/Vol] 215 mg/dL High 70-100 [facility] Comment on above: ADA recommended refe rence rangeRandom Glucose Reference Range is dependent on time and content of last meal. Glucose of more than 200 mg/dL in a nonstressed, ambulatory subject supports the diagnosis of Diabetes Mellitus. Result Comment: [place] om Glucose Reference Range is dependent on time and content of last meal. Glucose of more than 200 mg/dL in a nonstressed, ambulatory subject supports the diagnosis of Diabetes Mellitus. ADA recommended reference range Performed By: #### A LPHA PHEN, MITOM2, HBSAG, HCBIGM, HBCAB, HBSAB, DYLAN, SMAB, HAAB, HAABT, HCV RX PCR, AFPTM, CERULOP, L-K MICRO, IGG, HEMOCHROM #### [facility] , #### KYLE, CMP, PT, CBC #### [facility] [address] [place] [address] Hematocrit Auto (Bld) [Volum e fraction]Ordered By: Imad Asaad on 11-05-2024 Hematocrit (Bld) [Volume fraction] Hematocrit [Volume Fraction] of Blood by Automated count Low 38.8-50.0 [facility] Hematocrit [Volume Fraction] of Blood by Automated countOrdered By: Imad Asaad on 11-05-2024 Hematocrit (Bld) [Volume fraction] 37.3 % Low 38.8-50.0 [facility] Comment on above: Performed By: #### A LPHA PHEN, MITOM2, HBSAG, HCBIGM, HBCAB, HBSAB, DYLAN, SMAB, HAAB, HAABT, HCV RX PCR, AFPTM, CERULOP, L-K MICRO, IGG, HEMOCHROM #### [facility] , #### KYLE, CMP, PT, CBC #### [address] Hemoglobin [Mass/volume] in BloodOrdered By: Imad Asaad on 11-05-2024 Hemoglobin (Bld) [Mass/Vol] Hemoglobin [Mass/volume] in Blood Low 13.0-17.0 [facility] Hemoglobin (Bld) [Mass/Vol] 12.7 g/dL Low 13.0-17.0 [facility] Comment on above: Performed By: #### A LPHA PHEN, MITOM2, HBSAG, HCBIGM, HBCAB, HBSAB, DYLAN, SMAB, HAAB, HAABT, HCV RX PCR, AFPTM, CERULOP, L-K MICRO, IGG, HEMOCHROM #### [facility] , #### KYLE, CMP, PT, CBC #### [facility] [address] [place] [address] Hep C Ab wRfx to Qnt PCRon 0 11-05-2024 Hepatitis C Virus Antibody Non-Reactive Normal Non Reactive The Counts Include [address] [facility] [facility] Comment on above: Performed By: #### A LPHA PHEN, MITOM2, HBSAG, HCBIGM, HBCAB, HBSAB, DYLAN, SMAB, HAAB, HAABT, HCV RX PCR, AFPTM, CERULOP, L-K MICRO, IGG, HEMOCHROM #### [facility] , #### KYLE, CMP, PT, CBC #### [facility] [address] Interpretation Hepatitis C Comment Normal . The Counts Include [address] Comment on above: Result Comment: Not infected with HCV unless early or acute infection is suspected (which may be delayed in an immunocompromised individual), or other evidence exists to indicate HCV infection. Performed By: #### A LPHA PHEN, MITOM2, HBSAG, HCBIGM, HBCAB, HBSAB, DYLAN, SMAB, HAAB, HAABT, HCV RX PCR, AFPTM, CERULOP, L-K MICRO, IGG, HEMOCHROM #### [facility] , #### KYLE, CMP, PT, CBC #### [facility] [address] Hepatitis A Antibody IgMon 0 11-05-2024 Hepatitis A Antibody IgM Negative Normal Negative The Counts Include [address] [facility] Comment on above: Result Comment: A ne gative anti-HAV IgM result suggests no recent or current HAV infection. Performed By: #### A LPHA PHEN, MITOM2, HBSAG, HCBIGM, HBCAB, HBSAB, DYLAN, SMAB, HAAB, HAABT, HCV RX PCR, AFPTM, CERULOP, L-K MICRO, IGG, HEMOCHROM #### [facility] , #### KYLE, CMP, PT, CBC #### [facility] [address] Hepatitis A Antibody Totalon 11-05-2024 Hepatitis A Antibody Total Negative Normal Negative The Counts Include [address] Comment on above: Result [...] total antibody results to IgM (e.g., panel #[id number] HAV Antibody w/ Rfx). Performed By: #### A LPHA PHEN, MITOM2, HBSAG, HCBIGM, HBCAB, HBSAB, DYLAN, SMAB, HAAB, HAABT, HCV RX PCR, AFPTM, CERULOP, L-K MICRO, IGG, HEMOCHROM #### [facility] , #### KYLE, CMP, PT, CBC #### [facility] [address] Hepatitis A virus Ab [Presen ce] in Serum by ImmunoassayOrdered By: Derrek Rodgers on 11-05-2024 HAV Ab IA Ql (S) Hepatitis A virus Ab [Presence] in Serum by Immunoassay Negative [facility] Comment on above: Comment: The HAV tot [...] HAVtotal antibody results to IgM (e.g., panel #[id number] HAVAntibody w/ Rfx). HAV Ab IA Ql (S) Negative Negative [facility] Comment on above: Comment: The HAV [...] HAVtotal antibody results to IgM (e.g., panel #[id number] HAVAntibody w/ Rfx). Hepatitis A virus IgM antibo dy assayOrdered By: Derrek Rodgers on 11-05-2024 Hepatitis A IgM Antibody Negative Negative [facility] [facility] Comment on above: A negative anti-HAV IgM result suggests no recent orcurrent HAV infection. Hepatitis B Core Antibodyon 11-05-2024 Hepatitis B Core Antibody Negative Normal Negative The Counts Include [facility] Comment on above: Performed By: #### A LPHA PHEN, MITOM2, HBSAG, HCBIGM, HBCAB, HBSAB, DYLAN, SMAB, HAAB, HAABT, HCV RX PCR, AFPTM, CERULOP, L-K MICRO, IGG, HEMOCHROM #### [facility] , #### KYLE, CMP, PT, CBC #### [facility] [address] Hepatitis B Core Antibody Ig Mon 11-05-2024 Hepatitis B Core Antibody IgM Negative Normal Negative The Counts Include 234 [facility] At [facility] Comment on above: Result Comment: Perf ormed at: - [facility] [address] [id number] Maintenance Leader: Stewart Palmer PhD, Phone: [phone] Performed By: #### A LPHA PHEN, MITOM2, HBSAG, HCBIGM, HBCAB, HBSAB, DYLAN, SMAB, HAAB, HAABT, HCV RX PCR, AFPTM, CERULOP, L-K MICRO, IGG, HEMOCHROM #### [facility] , #### KYLE, CMP, PT, CBC #### [address] Hepatitis B Surface Antibody on 11-05-2024 Hepatitis B Surface Antibody Non-Reactive Normal . The Counts Include [facility] Comment on above: Result Comment: Non Reactive: Not immune to HBV infection. Equivocal: Unable to determine if anti-HBs is present at levels consistent with immunity. Reactive: Anti-HBs concentration detected at greater than 10 mIU/mL. Individual is considered to be immune to infection with HBV. Performed By: #### A LPHA PHEN, MITOM2, HBSAG, HCBIGM, HBCAB, HBSAB, DYLAN, SMAB, HAAB, HAABT, HCV RX PCR, AFPTM, CERULOP, L-K MICRO, IGG, HEMOCHROM #### [facility] , #### KYLE, CMP, PT, CBC #### [facility] [address] [place] [address] Hepatitis B Surface Antigeno n 11-05-2024 HBsAg Screen Negative Normal Negative The Counts Include 234 [facility] Comment on above: Result Comment: PERF ORMED BY: [place] [address] PATHOLOGIST HIV CTS SPECIALIST LEANDRA WALSH M.D. Performed By: #### A LPHA PHEN, MITOM2, HBSAG, HCBIGM, HBCAB, HBSAB, DYLAN, SMAB, HAAB, HAABT, HCV RX PCR, AFPTM, CERULOP, L-K MICRO, IGG, HEMOCHROM #### [facility] , #### KYLE, CMP, PT, CBC #### [facility] [address] [place] [address] Hepatitis B virus core IgM a ntibody assayOrdered By: Derrek Rodgers on 11-05-2024 Hepatitis B Core IgM Antibody Negative Negative [facility] Comment on above: Performed at: [place] [id number] Director: Stewart Palmer PhD, Phone: [phone] Hepatitis B virus core antib sarai assayOrdered By: Derrek Rodgers on 11-05-2024 Hepatitis B Core Total Antibody Negative Negative [facility] Hepatitis C virus IgG Ab [Pr esence] in Serum or Plasma by ImmunoassayOrdered By: Derrek Rodgers on 11-05-2024 HCV IgG IA Ql Hepatitis C virus Ig G Ab [Presence] in Serum or Plasma by Immunoassay Non Reactive [facility] HCV IgG IA Ql Non-Reactive Non Reactive [facility] Hereditary Hemochromatosis,Day Stovall 11-05-2024 Hereditary Hemochromatosis Comment Normal . The Counts Include 234 [facility] At [facility] Comment on above: Result Comment: Resu lt: c.845G>A (p.Rou008Acd) - Not Detected c.187C>G (p.Enk38Eel) - Not Detected c.193A>T (p.Kmf75Uck) - Not Detected Not associated with increased [...] for patients who are homozygous for c.845G>A (p.Mym654Zok) and have yet to experience clinical symptoms. Comments: The most common HFE variants associated with hereditary hemochromatosis are c.845G>A (p.Smq456Cyp), c.187C>G (p.Wxb96Epf), c.193A>T (p.Nrh95Pew). While patients homozygous for c.845G>A (p.Uor307Sdk) are the most likely to present clinical symptoms, less than 10% develop clinically significant iron overload with tissue and organ damage. Genetic counseling is recommended to discuss the potential clinical implications of positive results, as well as recommendations for testing family members. Genetic Coordinators are available for health care providers to discuss results at [phone] Test Details: Three variants analyzed: c.845G>A (p.Ute379Qqx), commonly referred to as C282Y c.187C>G (p.Jno16Bse), commonly referred to as H63D c.193A>T (p.Ytc57Ksn), commonly referred to as S65C Methods/Limitations: DNA [...] developed and its performance characteristics determined by [employer]). It has not been cleared or approved by the Food and Drug Administration. References: Rafa BR, Vel PC, Art KV, Wai LW, Nate ; [employer] [place] [employer] Liver Diseases. Diagnosis and management of hemochromatosis: 2011 practice guideline by the [place] [employer] Liver Diseases. Hepatology. 2011 Jan;54(1):328-43. doi: 10.1002/hep.89637. PMID: 37318085; PMCID: [id number]. Nigel G, Clay P, Fatoumata NINA, Mervat H, Juan O, Alex S, Raulito I, Marv Harrison, Jimbo S. [facility] best practice guidelines for the molecular genetic diagnosis of hereditary hemochromatosis (HH). Eur J Hum Neelima. 2016 Oct;24(4):479-95. doi: 10.1038/ejhg.2015.128. Epub 2014Feb 02. PMID: 04760384; PMCID: ZOL5444874. Performed By: #### A LPHA PHEN, MITOM2, HBSAG, HCBIGM, HBCAB, HBSAB, DYLAN, SMAB, HAAB, HAABT, HCV RX PCR, AFPTM, CERULOP, L-K MICRO, IGG, HEMOCHROM #### [facility] , #### KYLE, CMP, PT, CBC #### [address] Reviewed by: Comment Normal . The Counts Include 234 [facility] Comment on above: Result Comment: Tech nical Component performed at [facility] Professional Component performed by: Richa Cuba, Ph.D., FACMG Director, Molecular Genetics [address] [place] [address] [facility] [address] Performed at: [facility] [place], [place] [id number] Maintenance Leader: [facility], Phone: [phone] PERFORMED BY: [place] [address] PATHOLOGIST HIV CTS SPECIALIST LEANDRA WALSH M.D. Performed By: #### A LPHA PHEN, MITOM2, HBSAG, HCBIGM, HBCAB, HBSAB, DYLAN, SMAB, HAAB, HAABT, HCV RX PCR, AFPTM, CERULOP, L-K MICRO, IGG, HEMOCHROM #### [facility] , #### KYLE, CMP, PT, CBC #### [facility] [address] [place] [address] INR in Platelet poor plasma by Coagulation assayOrdered By: Derrek Rodgers on 11-05-2024 INR Coag (PPP) [Relative time] INR in Platelet poor plasma by Coagulation assay [facility] Comment on above: INR Therapeutic Rang e A) Pre- and Peroperative OAT started two weeks before surgery. NOT HIP SURGERY: 1.5 - 2.5 HIP SURGERY: 2 - 3B) Primary and secondary prevention of venous THROMBOSIS: 2 - 3C) Active venous thrombosis, pulmonary embolismand prevention of recurrent venous thrombosis: 2 - 3D) Prevention of arterial thromboembolismincluding patients with mechanical heart valves: 3 - 4.5 INR Coag (PPP) [Relative time] 1.2 {INR} Normal [facility] Comment on above: INR Therapeutic Rang e A) Pre- and Peroperative OAT started two weeks before surgery. NOT HIP SURGERY: 1.5 - 2.5 HIP SURGERY: 2 - 3B) Primary and secondary prevention of venous THROMBOSIS: 2 - 3C) Active venous thrombosis, pulmonary embolismand prevention of recurrent venous thrombosis: 2 - 3D) Prevention of arterial thromboembolismincluding patients with mechanical heart valves: 3 - 4.5 Result Comment: INR Therapeutic Range A) Pre- [...] heart valves: 3 - 4.5 PERFORMED BY: [place] [address] PATHOLOGIST HIV CTS SPECIALIST LEANDRA WALSH M.D. Performed By: #### A LPHA PHEN, MITOM2, HBSAG, HCBIGM, HBCAB, HBSAB, DYLAN, SMAB, HAAB, HAABT, HCV RX PCR, AFPTM, CERULOP, L-K MICRO, IGG, HEMOCHROM #### [facility] , #### KYLE, CMP, PT, CBC #### [facility] [address] [place] [address] [place] Immunoglobulin Goran Immunoglobulin G 1263 mg/dL Normal [id number] The Counts Include 234 [facility] At [facility] Comment on above: Result Comment: Perf ormed at: - [facility] [address] [id number] Maintenance Leader: Stewart Palmer PhD, Phone: [phone] Performed By: #### A LPHA PHEN, MITOM2, HBSAG, HCBIGM, HBCAB, HBSAB, DYLAN, SMAB, HAAB, HAABT, HCV RX PCR, AFPTM, CERULOP, L-K MICRO, IGG, HEMOCHROM #### [facility] , #### KYLE, CMP, PT, CBC #### [facility] [address] [place] [address] Leukocytes [#/volume] correc adrián for nucleated erythrocytes in Blood by Automated counOrdered By: Imad Asaad on 11-05-2024 WBC corrected for nucl RBC Auto (Bld) [#/Vol] Leukocytes [#/volume] corrected for nucleated erythrocytes in Blood by Automated coun 4.1-10.5 [facility] WBC corrected for nucl RBC Auto (Bld) [#/Vol] 6.8 10*3/uL 4.1-10.5 [facility] Leukocytes [#/volume] in Blo od by Automated countOrdered By: Imad Asaad on 11-05-2024 WBC (Bld) [#/Vol] 6.8 10*3/uL Normal 4.1-10.5 [facility] Comment on above: Performed By: #### A LPHA PHEN, MITOM2, HBSAG, HCBIGM, HBCAB, HBSAB, DYLAN, SMAB, HAAB, HAABT, HCV RX PCR, AFPTM, CERULOP, L-K MICRO, IGG, HEMOCHROM #### [facility] , #### KYLE, CMP, PT, CBC #### [address] Liver-Kidney Microsomal Abon 11-05-2024 Liver-Kidney Microsomal Ab <1.0 Normal 0.0-20.0 The Counts Include [facility] At [facility] Comment on above: Result Comment: Nega tive 0.0 - 20.0 Equivocal 20.1 - 24.9 Positive >24.9 LKM type 1 antibodies are detected in patients with autoimmune hepatitis type 2 and in up to 8% of patients with chronic HCV infection. Performed at: [facility] [address] [id number] Maintenance Leader: Stewart Palmer PhD, Phone: [phone] Performed By: #### A LPHA PHEN, MITOM2, HBSAG, HCBIGM, HBCAB, HBSAB, DYLAN, SMAB, HAAB, HAABT, HCV RX PCR, AFPTM, CERULOP, L-K MICRO, IGG, HEMOCHROM #### [facility] , #### KYLE, CMP, PT, CBC #### [facility] [address] [place] [address] [place] Lymphocytes Auto (Bld) [#/Vo l]Ordered By: Imad Asaad on 11-05-2024 Lymphocytes (Bld) [#/Vol] Lymphocytes [#/volume] in Blood by Automated count Low 1.00-4.8 [facility] Lymphocytes [#/volume] in Bl ood by Automated countOrdered By: Imad Asaad on 11-05-2024 Lymphocytes (Bld) [#/Vol] 0.8 10*3/uL Low 1.00-4.8 [facility] Comment on above: Performed By: #### A LPHA PHEN, MITOM2, HBSAG, HCBIGM, HBCAB, HBSAB, DYLAN, SMAB, HAAB, HAABT, HCV RX PCR, AFPTM, CERULOP, L-K MICRO, IGG, HEMOCHROM #### [facility] , #### KYLE, CMP, PT, CBC #### [facility] [address] [place] [address] [place] Lymphocytes/100 WBC Auto (Bl d)Ordered By: Imad Asaad on 11-05-2024 Lymphocytes/100 WBC (Bld) Lymphocytes/100 leukocytes in Blood by Automated count . [facility] Lymphocytes/100 leukocytes i n Blood by Automated countOrdered By: Imad Asaad on 11-05-2024 Lymphocytes/100 WBC (Bld) 11.1 % Normal . [facility] Comment on above: Performed By: #### A LPHA PHEN, MITOM2, HBSAG, HCBIGM, HBCAB, HBSAB, DYLAN, SMAB, HAAB, HAABT, HCV RX PCR, AFPTM, CERULOP, L-K MICRO, IGG, HEMOCHROM #### [facility] , #### KYLE, CMP, PT, CBC #### [facility] [address] MCH Auto (RBC) [Entitic mass ]Ordered By: Imad Asaad on 11-05-2024 MCH (RBC) [Entitic mass] MCH [Entitic mass] by Automated count 27.5-35.2 [facility] MCH [Entitic mass] by Automa adrián countOrdered By: Imad Asaad on 11-05-2024 MCH (RBC) [Entitic mass] 34.2 pg Normal 27.5-35.2 [facility] Comment on above: Performed By: #### A LPHA PHEN, MITOM2, HBSAG, HCBIGM, HBCAB, HBSAB, DYLAN, SMAB, HAAB, HAABT, HCV RX PCR, AFPTM, CERULOP, L-K MICRO, IGG, HEMOCHROM #### [facility] , #### KYLE, CMP, PT, CBC #### [facility] [address] [place] [address] MCHC Auto (RBC) [Mass/Vol]Or dered By: Imad Asaad on 11-05-2024 MCHC (RBC) [Mass/Vol] MCHC [Mass/volume] by Automated count 32.5-35.6 [facility] MCHC (RBC) [Mass/Vol] 33.9 g/dL 32.5-35.6 [facility] MCV Auto (RBC) [Entitic vol] Ordered By: Imad Asaad on 11-05-2024 MCV (RBC) [Entitic vol] MCV [Entitic volume] by Automated count 83.5-101 [facility] MCV [Entitic volume] by Auto mated countOrdered By: Imad Asaad on 11-05-2024 MCV (RBC) [Entitic vol] 100.9 fL Normal 83.5-101 [facility] Comment on above: Performed By: #### A LPHA PHEN, MITOM2, HBSAG, HCBIGM, HBCAB, HBSAB, DYLAN, SMAB, HAAB, HAABT, HCV RX PCR, AFPTM, CERULOP, L-K MICRO, IGG, HEMOCHROM #### [facility] , #### KYLE, CMP, PT, CBC #### [facility] [address] Mitochondrial (M2) Antibodyo n 11-05-2024 Mitochondrial (M2) Antibody <20.0 Normal 0.0-20.0 The Counts Include 234 [facility] At [facility] Comment on above: Result Comment: Nega tive 0.0 - 20.0 Equivocal 20.1 - 24.9 Positive >24.9 Mitochondrial (M2) Antibodies are found in 90-96% of patients with primary biliary cirrhosis. Performed By: #### A LPHA PHEN, MITOM2, HBSAG, HCBIGM, HBCAB, HBSAB, DYLAN, SMAB, HAAB, HAABT, HCV RX PCR, AFPTM, CERULOP, L-K MICRO, IGG, HEMOCHROM #### [facility] , #### KYLE, CMP, PT, CBC #### [facility] [address] Monocytes Auto (Bld) [#/Vol] Ordered By: Imad Asaad on 11-05-2024 Monocytes (Bld) [#/Vol] Automated blood monocyte count 0.0-0.8 [facility] Monocytes [#/volume] in Bloo d by Automated countOrdered By: Imad Asaad on 11-05-2024 Monocytes (Bld) [#/Vol] 0.5 10*3/uL Normal 0.0-0.8 [facility] Comment on above: Performed By: #### A LPHA PHEN, MITOM2, HBSAG, HCBIGM, HBCAB, HBSAB, DYLAN, SMAB, HAAB, HAABT, HCV RX PCR, AFPTM, CERULOP, L-K MICRO, IGG, HEMOCHROM #### [facility] , #### KYLE, CMP, PT, CBC #### [facility] [address] [place] [address] [place] Monocytes/100 WBC Auto (Bld) Ordered By: Imad Asaad on 11-05-2024 Monocytes/100 WBC (Bld) Automated monocyte % . [facility] Monocytes/100 leukocytes in Blood by Automated countOrdered By: Imad Asaad on 11-05-2024 Monocytes/100 WBC (Bld) 7.8 % Normal . [facility] Comment on above: Performed By: #### A LPHA PHEN, MITOM2, HBSAG, HCBIGM, HBCAB, HBSAB, DYLAN, SMAB, HAAB, HAABT, HCV RX PCR, AFPTM, CERULOP, L-K MICRO, IGG, HEMOCHROM #### [facility] , #### KYLE, CMP, PT, CBC #### [facility] [address] [place] [address] [place] Neutrophils Auto (Bld) [#/Vo l]Ordered By: Imad Asaad on 11-05-2024 Neutrophils (Bld) [#/Vol] Neutrophils [#/volume] in Blood by Automated count 1.8-7.7 [facility] Neutrophils [#/volume] in Bl ood by Automated countOrdered By: Imad Asaad on 11-05-2024 Neutrophils (Bld) [#/Vol] 5.4 10*3/uL Normal 1.8-7.7 [facility] Comment on above: Performed By: #### A LPHA PHEN, MITOM2, HBSAG, HCBIGM, HBCAB, HBSAB, DYLAN, SMAB, HAAB, HAABT, HCV RX PCR, AFPTM, CERULOP, L-K MICRO, IGG, HEMOCHROM #### [facility] , #### KYLE, CMP, PT, CBC #### [place] [address] [place] Neutrophils/100 WBC Auto (Bl d)Ordered By: Imad Asaad on 11-05-2024 Neutrophils/100 WBC (Bld) Automated neutrophil % . [facility] Neutrophils/100 leukocytes i n Blood by Automated countOrdered By: matthew Rodgers on 11-05-2024 Neutrophils/100 WBC (Bld) 78.6 % Normal . [facility] Comment on above: Performed By: #### A LPHA PHEN, MITOM2, HBSAG, HCBIGM, HBCAB, HBSAB, DYLAN, SMAB, HAAB, HAABT, HCV RX PCR, AFPTM, CERULOP, L-K MICRO, IGG, HEMOCHROM #### [facility] , #### KYLE, CMP, PT, CBC #### [facility] [address] No Panel InformationOrdered By: matthew Rodgers on 11-05-2024 Estimated GFR (CKD-EPI) > 60.0 mL/Min [facility] Hemochromatosis Note Comment . [facility] Comment on above: Technical Component performed at [employer] RTPProfessional Component performed by:Richa Cuba, Ph.D., FACMGDirector, Molecular [id number] [facility] [id number] at: - [employer] [id number] [place], [place] [id number] Director: [facility], Phone: [phone] Hepatitis C Interpretation Comment . [facility] Comment on above: Not infected with HC V unless early or acute infection issuspected (which may be delayed in an immunocompromisedindividual), or other evidence exists to indicate HCVinfection. Pharmacy Creatinine Clearance (Chem N/A [facility] Nucleated erythrocytes [Pres ence] in Blood by Automated countOrdered By: Imad Geronimoad on 11-05-2024 Nucleated RBC Auto Ql (Bld) Nucleated erythrocytes [Presence] in Blood by Automated count 0-0.5 [facility] Nucleated RBC Auto Ql (Bld) 0.1 /100{WBC} 0-0.5 [facility] Platelet mean volume Auto (B ld) [Entitic vol]Ordered By: Imad Asaad on 11-05-2024 Platelet mean volume (Bld) [Entitic vol] Platelet mean volume [Entitic volume] in Blood by Automated count 6.6-10.1 [facility] Platelet mean volume [Entiti c volume] in Blood by Automated countOrdered By: Imad Ana Maria on 11-05-2024 Platelet mean volume (Bld) [Entitic vol] 7.9 fL Normal 6.6-10.1 [facility] Comment on above: Performed By: #### A LPHA PHEN, MITOM2, HBSAG, HCBIGM, HBCAB, HBSAB, DYLAN, SMAB, HAAB, HAABT, HCV RX PCR, AFPTM, CERULOP, L-K MICRO, IGG, HEMOCHROM #### [facility] , #### KYLE, CMP, PT, CBC #### [facility] [address] [place] [address] [place] Platelets Auto (Bld) [#/Vol] Ordered By: Juan Carlosad Ana Maria on 11-05-2024 Platelets (Bld) [#/Vol] Platelets [#/volume] in Blood by Automated count 150-450 [facility] Platelets [#/volume] in Bloo d by Automated countOrdered By: Derrek Rodgers on 11-05-2024 Platelets (Bld) [#/Vol] 172 10*3/uL Normal 150-450 [facility] Comment on above: Performed By: #### A LPHA PHEN, MITOM2, HBSAG, HCBIGM, HBCAB, HBSAB, DYLAN, SMAB, HAAB, HAABT, HCV RX PCR, AFPTM, CERULOP, L-K MICRO, IGG, HEMOCHROM #### [facility] , #### KYLE, CMP, PT, CBC #### [facility] [address] Potassium [Moles/volume] in Serum or PlasmaOrdered By: Imad Geronimoad on 11-05-2024 Potassium [Moles/Vol] Potassium [Moles/v olume] in Serum or Plasma 3.5-5.1 [facility] Potassium [Moles/Vol] 4.9 mmol/L Normal 3.5-5.1 [facility] Comment on above: Performed By: #### A LPHA PHEN, MITOM2, HBSAG, HCBIGM, HBCAB, HBSAB, DYLAN, SMAB, HAAB, HAABT, HCV RX PCR, AFPTM, CERULOP, L-K MICRO, IGG, HEMOCHROM #### [facility] , #### KYLE, CMP, PT, CBC #### [facility] [address] Protein [Mass/volume] in Ser um or PlasmaOrdered By: Derrek Rodgers on 11-05-2024 Protein [Mass/Vol] Protein [Mass/volume ] in Serum or Plasma Low 6.4-8.9 [facility] Protein [Mass/Vol] 5.4 g/dL Low 6.4-8.9 [facility] Comment on above: Performed By: #### A LPHA PHEN, MITOM2, HBSAG, HCBIGM, HBCAB, HBSAB, DYLAN, SMAB, HAAB, HAABT, HCV RX PCR, AFPTM, CERULOP, L-K MICRO, IGG, HEMOCHROM #### [facility] , #### KYLE, CMP, PT, CBC #### [facility] [address] Prothrombin time (PT)Ordered By: Derrek Rodgers on 11-05-2024 PT Coag (PPP) [Time] Prothrombin time (PT) High 9.0- 12.9 [facility] Comment on above: A hematocrit value g reater than 55% may lead to inaccurate results in coagulation testing. Patients having hematocrit values >55% require a special collection tube for coagulation studies. Please contact the laboratory at [phone] for redraw instructions. PT Coag (PPP) [Time] 13.4 s High 9.0-12.9 [facility] Comment on above: A hematocrit value g reater than 55% may lead to inaccurate results in coagulation testing. Patients having hematocrit values >55% require a special collection tube for coagulation studies. Please contact the laboratory at [phone] for redraw instructions. Result Comment: A he matocrit value greater than 55% may lead to inaccurate results in coagulation testing. Patients having hematocrit values >55% require a special collection tube for coagulation studies. Please contact the laboratory at [phone] for redraw instructions. Performed By: #### A LPHA PHEN, MITOM2, HBSAG, HCBIGM, HBCAB, HBSAB, DYLAN, SMAB, HAAB, HAABT, HCV RX PCR, AFPTM, CERULOP, L-K MICRO, IGG, HEMOCHROM #### [facility] , #### KYLE, CMP, PT, CBC #### [facility] [address] RBC Auto (Bld) [#/Vol]Ordere d By: Imad Asaad on 11-05-2024 RBC (Bld) [#/Vol] Erythrocytes [#/volu me] in Blood by Automated count Low 3.90-5.60 [facility] Serum globulin measurement b y calculation (mass/volume)Ordered By: Imad Asaad on 11-05-2024 Globulin (S) [Mass/Vol] 3.3 g/dL Normal [facility] Comment on above: Performed By: #### A LPHA PHEN, MITOM2, HBSAG, HCBIGM, HBCAB, HBSAB, DYLAN, SMAB, HAAB, HAABT, HCV RX PCR, AFPTM, CERULOP, L-K MICRO, IGG, HEMOCHROM #### [facility] , #### KYLE, CMP, PT, CBC #### [facility] [address] [place] [address] Serum hepatitis B virus surf jaimie antibody detectionOrdered By: Imad Asaad on 11-05-2024 HBV surface Ab Ql (S) Hepatitis B virus surface Ab [Presence] in Serum . [facility] Comment on above: Non Reactive: Not im mune to HBV infection. Equivocal: Unable to determine if anti-HBs is present at levels consistent with immunity. Reactive: Anti-HBs concentration detected at greater than 10 mIU/mL. Individual is considered to be immune to infection with HBV. HBV surface Ab Ql (S) Non-Reactive . [facility] Comment on above: Non Reactive: Not im [...] Serum homogeneous pattern antinuclear antibody (DYLAN) titer [facility] Homogenous nuclear Ab pattern (S) [Titer] N/A [facility] Serum mitochondria M2 IgG an tibody assay (units/volume)Ordered By: Derrek Rodgers on 11-05-2024 Mitochondria M2 IgG Qn (S) Serum mitochondria M2 IgG antibody assay (units/volume) 0.0-20.0 [facility] Comment on above: Negative 0.0 - 20.0 Equivocal 20.1 - 24.9 Positive >24.9Mitochondrial (M2) Antibodies are found in 90-96% ofpatients with primary biliary cirrhosis. Mitochondria M2 IgG Qn (S) <20.0 Units 0.0-20.0 [facility] Comment on above: Negative 0.0 - 20.0 Equivocal 20.1 - 24.9 Positive >24.9Mitochondrial (M2) Antibodies are found in 90-96% ofpatients with primary biliary cirrhosis. Serum nuclear antibody titer Ordered By: Derrek Rodgers on 11-05-2024 Nuclear Ab (S) [Titer] Serum nuclear ant ibody titer . [facility] Comment on above: Negative <1:80 Borde rline 1:80 Positive >1:80ICAP nomenclature: AC-0For more information about Hep-2 cell patterns useANApatterns.org, the official website for theInternational Consensus on Antinuclear Antibody (DYLAN)Patterns (ICAP).Performed at: [facility] [id number] Director: Stewart Palmer PhD, Phone: [phone] Nuclear Ab (S) [Titer] Negative . [facility] Comment on above: Negative <1:80 Borde rline 1:80 Positive >1:80ICAP nomenclature: AC-0For more information about Hep-2 cell patterns useANApatterns.org, the official website for theInternational Consensus on Antinuclear Antibody (DYLAN)Patterns (ICAP).Performed at: [id number] [place] [id number] Director: Stewart Palmer PhD, Phone: [phone] Serum or plasma IgG measurem ent (mass/volume)Ordered By: Derrek Rodgers on 11-05-2024 IgG [Mass/Vol] IgG [Mass/volume] in Serum or Plasma [address] [place] [address] Comment on above: Performed at: [employer] [id number] [place] [address] [id number] Director: Stewart Palmer PhD, Phone: [phone] IgG [Mass/Vol] 1263 mg/dL [address] [place] [address] Comment on above: Performed at: [employer] [address] [id number] Director: Stewart Palmer PhD, Phone: [phone] Serum or plasma albumin/glob ulin mass ratioOrdered By: Derrek Rodgers on 11-05-2024 Albumin/Globulin [Mass ratio] Serum or plasma albumin/globulin mass ratio [facility] Albumin/Globulin [Mass ratio] 0.6 {ratio} Normal [facility] Comment on above: Performed By: #### A LPHA PHEN, MITOM2, HBSAG, HCBIGM, HBCAB, HBSAB, DYLAN, SMAB, HAAB, HAABT, HCV RX PCR, AFPTM, CERULOP, L-K MICRO, IGG, HEMOCHROM #### [facility] , #### KYLE, CMP, PT, CBC #### [facility] [address] [place] [address] Serum or plasma alpha 1 anti trypsin measurement (mass/volume)Ordered By: Derrek Rodgers on 11-05-2024 Alpha 1 antitrypsin [Mass/Vol] Serum ndegu-5-ngluadmcgcz measurement 101-187 [facility] Alpha 1 antitrypsin [Mass/Vol] 104 mg/dL 101-187 [facility] Serum or plasma alpha 1 anti trypsin phenotyping identification by immunofixationOrdered By: Derrek Rodgers on 11-05-2024 Alpha 1 antitrypsin phenotyping Immunofixation Nom Serum or plasma alpha 1 antitrypsin phenotyping identification by immunofixation . [facility] Comment on above: MM Phenotype is co nsidered to be normal , producingnormal serum levels of izowb-6-cquknsqf inhibitor andnot associated with clinical disease. Associated R3Grajlg serum levels in other phenotypes and theirincidence [...] reference. Ranges used to confirm phenotype.Performed at: - [employer] [address] [id number] Director: Stewart Palmer PhD, Phone: [phone] at: [facility] [address] [id number] Director: Beto Vincent MD, Phone: [phone] Alpha 1 antitrypsin phenotyping Immunofixation Nom Ms . [facility] Comment on above: MM Phenotype is co nsidered to be normal , producingnormal serum levels of kyibw-8-ktfyczus inhibitor andnot associated with clinical disease. Associated R9Asbvjo serum levels in other phenotypes and theirincidence [...] reference. Ranges used to confirm phenotype.Performed at: [address] [id number] Director: Stewart Palmer PhD, Phone: [phone] at: [place] [address] [place], [place] [id number] Director: Beto Vincent MD, Phone: [phone] Serum or plasma hhaiv-9-mwci protein tumor marker measurement (mass/volume)Ordered By: Derrek Rodgers on 11-05-2024 AFP.tumor marker [Mass/Vol] Serum or plasma dnywl-2-nummldnsmvx tumor marker measurement (mass/volume) High 0.0-8.4 [facility] Comment on above: [employer] El ectrochemiluminescence Immunoassay(ECLIA)Values obtained with different assay methods or kits cannotbe used interchangeably. Results cannot be interpreted asabsolute evidence of the presence or absence of malignantdisease.This test is not interpretable in females.Performed at: [address] [id number] Director: Stewart Palmer PhD, Phone: [phone] AFP.tumor marker [Mass/Vol] 9.3 ng/mL High 0.0-8.4 [facility] Comment on above: [employer] El ectrochemiluminescence Immunoassay(ECLIA)Values obtained with different assay methods or kits cannotbe used interchangeably. Results cannot be interpreted asabsolute evidence of the presence or absence of malignantdisease.This test is not interpretable in females.Performed at: [address] [id number] Director: Stewart Palmer PhD, Phone: [phone] Serum or plasma anion gap de terminationOrdered By: Derrek Rodgers on 11-05-2024 Anion gap [Moles/Vol] Serum or plasma an ion gap determination 6.0-15.0 [facility] Anion gap [Moles/Vol] 10.5 mmol/L Normal 6.0-15.0 [facility] Comment on above: Performed By: #### A LPHA PHEN, MITOM2, HBSAG, HCBIGM, HBCAB, HBSAB, DYLAN, SMAB, HAAB, HAABT, HCV RX PCR, AFPTM, CERULOP, L-K MICRO, IGG, HEMOCHROM #### [facility] , #### KYLE, CMP, PT, CBC #### [facility] [address] Serum or plasma ceruloplasmi n measurement (mass/volume)Ordered By: Derrek Rodgers on 11-05-2024 Ceruloplasmin [Mass/Vol] Serum or plasma ceruloplasmin measurement (mass/volume) 16.0-31.0 [facility] Comment on above: Performed at: [employer] [address] [id number] Director: Stewart Palmer PhD, Phone: [phone] Ceruloplasmin [Mass/Vol] 19.1 mg/dL 16.0-31.0 [facility] Comment on above: Performed at: [employer] [id number] Director: Stewart Palmer PhD, Phone: [phone] Serum or plasma hepatitis B virus surface antigen detection by immunoassayOrdered By: Derrek Rodgers on 11-05-2024 HBV surface Ag IA Ql Hepatitis B virus s urface Ag [Presence] in Serum or Plasma by Immunoassay Negative [facility] HBV surface Ag IA Ql Negative Negative [facility] Serum or plasma lipoprotein a measurement (moles/volume)Ordered By: Derrek Rodgers on 11-05-2024 Lipoprotein a [Moles/Vol] Serum or plasma lipoprotein a measurement (moles/volume) 0.0-20.0 [facility] Comment on above: Negative 0.0 - 20.0 Equivocal 20.1 - 24.9 Positive >24.9LKM type 1 antibodies are detected in patients withautoimmune hepatitis type 2 and in up to 8% ofpatients with chronic HCV infection.Performed at: [facility] [place], [place] [id number] Director: Stewart Palmer PhD, Phone: [phone] Lipoprotein a [Moles/Vol] <1.0 Units 0.0-20.0 [facility] Comment on above: Negative 0.0 - 20.0 Equivocal 20.1 - 24.9 Positive >24.9LKM type 1 antibodies are detected in patients withautoimmune hepatitis type 2 and in up to 8% ofpatients with chronic HCV infection.Performed at: [facility] [place], [place] [id number] Director: Stewart Palmer PhD, Phone: [phone] Smooth Muscle Antibodyon Smooth Muscle Antibody 4 Normal 0-19 Th e Counts Include [address] [facility] Comment on above: Result Comment: Nega tive 0 - 19 Weak positive 20 - 30 Moderate to strong positive >30 Actin Antibodies are found in 52-85% of patients with autoimmune hepatitis or chronic active hepatitis and in 22% of patients with primary biliary cirrhosis. Performed By: #### A LPHA PHEN, MITOM2, HBSAG, HCBIGM, HBCAB, HBSAB, DYLAN, SMAB, HAAB, HAABT, HCV RX PCR, AFPTM, CERULOP, L-K MICRO, IGG, HEMOCHROM #### [facility] , #### KYLE, CMP, PT, CBC #### [address] Sodium [Moles/volume] in Ser um or PlasmaOrdered By: Derrek Rodgers on 11-05-2024 Sodium [Moles/Vol] Sodium [Moles/volume ] in Serum or Plasma Low 136-145 [facility] Sodium [Moles/Vol] 134 mmol/L Low 136-145 [facility] Comment on above: Performed By: #### A LPHA PHEN, MITOM2, HBSAG, HCBIGM, HBCAB, HBSAB, DYLAN, SMAB, HAAB, HAABT, HCV RX PCR, AFPTM, CERULOP, L-K MICRO, IGG, HEMOCHROM #### [facility] , #### KYLE, CMP, PT, CBC #### [facility] [address] [place] [id number] [place] Urea nitrogen [Mass/volume] in Serum or PlasmaOrdered By: Immatthew Rodgers on 11-05-2024 Urea nitrogen [Mass/Vol] Urea nitrogen [Mass/volume] in Serum or Plasma [address] Urea nitrogen [Mass/Vol] 28 mg/dL [address] Comment on above: Performed By: #### A LPHA PHEN, MITOM2, HBSAG, HCBIGM, HBCAB, HBSAB, DYLAN, SMAB, HAAB, HAABT, HCV RX PCR, AFPTM, CERULOP, L-K MICRO, IGG, HEMOCHROM #### [facility] , #### KYLE, CMP, PT, CBC #### [facility] [address] [place] [id number] [place] WBC Auto (Bld) [#/Vol]Ordere d By: Immatthew Rodgers on 11-05-2024 WBC (Bld) [#/Vol] Leukocytes [#/volume ] in Blood by Automated count 4.1-10.5 [facility] X-ray reportOrdered By: Wally Noland on 11-02-2024 Study report [facility] [address] [place] [id number] XRay Report Signed Patient: Gerson Penn MR#: [id number] : 1955 Acct:[id number] Age/Sex: 68 / M ADM Date: 5 Loc: [facility] Room: Type: [facility] Attending Dr: Geoffrey Ibrahim DO Copies [...] PM Dictation Location: RADIO-PC-23 Transcribed By: PWS 11/02/241456 Dictated By: Gage Noland Jr, DO 11/02/241455 Signed By: 11/02/241456 [facility] XR elbow LT 2Von 11-02-2024 XR elbow LT 2V [facility] [address] [place] [address] XRay Report Signed Patient: Gerson Penn MR#: [id number] : 1955 Acct:[id number] Age/Sex: 68 / M ADM Date: 11/02/24 Loc: [facility] Room: Type: [facility] Attending Dr: Geoffrey Ibrahim DO Copies [...] Noland Jr., D.O.11/02/2024 2:57 PM Dictation Location: RADIO--23 Transcribed By: GODFREY 11/02/241456 Dictated By: Gage Noland Jr, DO 11/02/241455 Signed By: 11/02/241456 Normal The Counts Include [facility] Urine Cultureon 10-20-2024 Bacteria identified Cx Nom (U) ORGANISM: Enterobacter cloacae complex (O:ENTCLOCPLX) [place] Count >100,000 Aerobic LACHELLE Charge (NMIC56) SUSCEPTIBILITY [...] RESISTANT TO ALL B-LACTAM DRUGS. PERFORMED BY: [place] [address] PATHOLOGIST HIV CTS SPECIALIST LEANDRA WALSH M.D. Normal The Counts Include [address] [facility] Comment on above: Performed By: #### A LPHA PHEN, MITOM2, HBSAG, HCBIGM, HBCAB, HBSAB, DYLAN, SMAB, HAAB, HAABT, HCV RX PCR, AFPTM, CERULOP, L-K MICRO, IGG, HEMOCHROM #### [facility] , #### KYLE, CMP, PT, CBC #### [facility] [address] [place] [address] [place] Urine cultureOrdered By: Marisol Ren on 10-20-2024 Bacteria identified Cx Nom (U) Abnormal [facility] X-ray reportOrdered By: Steven Rock on 10-07-2024 Study report [facility] [address] [place] [id number] XRay Report Signed Patient: Gerson Penn MR#: [id number] : 1955 Acct:[id number] Age/Sex: 68 / M ADM Date: Loc: [facility] Room: Type: REG CLI Attending Dr: Geoffrey [...] Lamont Rock M.D.10/07/2024 2:30 PM Dictation Location: [place] [address] Transcribed By: [facility] 10/07/24 1430 Dictated By: Lamont Rock MD 10/07/24 1429 Signed By: 10/07/24 1430 [facility] Work Phone: XR elbow LT 2Von 10-07-2024 XR elbow LT 2V [facility] [address] [place] [address] XRay Report Signed Patient: Gerson Penn MR#: [id number] : 1955 Acct:[id number] Age/Sex: 68 / M ADM Date: 10/07/24 Loc: [facility] Room: Type: REG CLI Attending Dr: Geoffrey [...] Lamont Rock M.D.10/07/2024 2:30 PM Dictation Location: [facility]-- Transcribed By: [facility] 10/07/24 1430 Dictated By: Lamont Rock MD 10/07/24 1429 Signed By: 10/07/24 1430 Normal The Counts Include [address] [facility] Glucose Glucometer (BldC) [M ass/Vol]Ordered By: Geoffrey Ibrahim on 09-22-2024 Glucose [Mass/Vol] Capillary blood gluc ose measurement by glucometer (mass/volume) [facility] Comment on above: Random Glucose Refer ence Range is dependent on time and content of last meal. Glucose of more than 200 mg/dL in a nonstressed, ambulatory subject supports the diagnosis of Diabetes Mellitus. Glucose Poct Glucometerson 0 09-22-2024 Commemt1 Glu2: Cleaned Meter Normal The Counts Include [address] [facility] Comment on above: Result Comment: PERF ORMED BY: [place] [address] PATHOLOGIST HIV CTS SPECIALIST LEANDRA WALSH M.D. Performed By: #### A LPHA PHEN, MITOM2, HBSAG, HCBIGM, HBCAB, HBSAB, DYLAN, SMAB, HAAB, HAABT, HCV RX PCR, AFPTM, CERULOP, L-K MICRO, IGG, HEMOCHROM #### [facility] , #### KYLE, CMP, PT, CBC #### [facility] [address] Glucose [Mass/Vol] 115 mg/dL Normal The Counts Include [address] [facility] Comment on above: Result Comment: [place] om Glucose Reference Range is dependent on time and content of last meal. Glucose of more than 200 mg/dL in a nonstressed, ambulatory subject supports the diagnosis of Diabetes Mellitus. Performed By: #### A LPHA PHEN, MITOM2, HBSAG, HCBIGM, HBCAB, HBSAB, DYLAN, SMAB, HAAB, HAABT, HCV RX PCR, AFPTM, CERULOP, L-K MICRO, IGG, HEMOCHROM #### [facility] , #### KYLE, CMP, PT, CBC #### [facility] [address] Glucose [Mass/Vol] 126 mg/dL Normal The Counts Include [facility] Comment on above: Result Comment: [facility] Glucose Reference Range is dependent on time and content of last meal. Glucose of more than 200 mg/dL in a nonstressed, ambulatory subject supports the diagnosis of Diabetes Mellitus. PERFORMED BY: [place] [address] PATHOLOGIST HIV CTS SPECIALIST LEANDRA WALSH M.D. Performed By: #### A LPHA PHEN, MITOM2, HBSAG, HCBIGM, HBCAB, HBSAB, DYLAN, SMAB, HAAB, HAABT, HCV RX PCR, AFPTM, CERULOP, L-K MICRO, IGG, HEMOCHROM #### [facility] , #### KYLE, CMP, PT, CBC #### [address] [place] 09-22-2024 L ------- Specimen: [id number] Received: 09/22/24 Status: ARYA Vargas Num: [id number] Spec Type: Surgical Subm Dr: Geoffrey Ibrahim, DO Tissues: A Joint/Knee (LEFT ARM BONE AND TISSUE) Procedures: HE/2, Gross/Micro L4, Decalcification Age/ Patient Sex Location Account Attending Physician Gerson Penn 68/M [place] [id number] Geoffrey Ibrahim DO SPEC NUM: [id number] RECD: 09/22/24 STATUS: ARYA VARGAS NUM: [id number] NAE: 09/22/[address] [facility] [address]: Geoffrey Ibrahim DO ENTERED: 09/22/[address] [facility] [address]: ROSAS TYPE: Surgical DEPT: S [...] medullary bone is cordero, firm and uniform. [employer] sections are submitted in A1?A2 after decalcification in rapid Nicolas immuno. (2, , [id number])JG Specimen: [id number] Received: 09/22/24 Status: ARYA Alicia Num: [id number] Spec Type: Surgical Subm Dr: Geoffrey Ibrahim, DO Tissues: A Joint/Knee (LEFT ARM BONE AND TISSUE) Procedures: HE/2, Gross/Micro L4, Decalcification Patient: Gerson Penn [id number] (Continued) Specimen: [id number] Received: 09/22/24 (Continued) Signed (signature on file) Lino Coffman MD 09/25/24 1821 Specimen: [id number] Received: 09/22/24 Status: ARYA Ortizsantosh Num: [id number] Spec Type: Surgical Subm Dr: Geoffrey Ibrahim, Tissues: A Joint/Knee (LEFT ARM BONE AND TISSUE) Procedures: HE/2, Gross/Micro L4, Decalcification Patient: Gerson Penn [id number] (Continued) Specimen: [id number] Received: 09/22/24 (Continued) Microscopic Description Microscopic examinations are performed supporting the above interpretation CPT Codes [id number] Specimen: [id number] Received: 09/22/24 Status: ARYA Vargas Num: [id number] Spec Type: Surgical Subm Dr: Geoffrey Ibrahim DO Tissues: A Joint/Knee (LEFT ARM BONE AND TISSUE) Procedures: HE/2, Gross/Micro L4, Decalcification Patient: Gerson Penn [id number] (Continued) Signed (signature on file) Lino Coffman MD 09/25/24 182 Normal The Counts Include [facility] No Panel InformationOrdered By: Geoffrey Ibrahim on 09-22-2024 Bedside Glucose Comment Glu2: cleaned meter [facility] XR elbow LT min 3V*on 2024 XR elbow LT min 3V* [address] [address] XRay Report Signed Patient: PennGerson Marshall MR#: [id number] : 1955 Acct:[id number] Age/Sex: 68 / M ADM Date: 09/22/24 [place] Room: Type[facility] Attending Dr: Geoffrey Ibrahim DO Copies [...] Clark Méndez M.D.09/22/2024 5:18 PM Dictation Location: [place] [address] Transcribed By: [facility] 09/22/241717 Dictated By: Clark Méndez II, MD 09/22/241716 Signed By: 09/22/241717 Normal The Counts Include [facility] Alanine aminotransferase [En zymatic activity/volume] in Serum or PlasmaOrdered By: Geoffrey Ibrahim on 09-21-2024 ALT [Catalytic activity/Vol] Alanine aminotransferase [Enzymatic activity/volume] in Serum or Plasma High 7-52 [facility] Albumin [Mass/volume] in Ser um or Plasma by Bromocresol green (BCG) dye binding methoOrdered By: Geoffrey Ibrahim on 09-21-2024 Albumin BCG dye [Mass/Vol] Albumin [Mass/volume] in Serum or Plasma by Bromocresol green (BCG) dye binding metho Low 3.5-5.7 [facility] Alkaline phosphatase [Enzyma tic activity/volume] in Serum or PlasmaOrdered By: Geoffrey Ibrahim on 09-21-2024 ALP [Catalytic activity/Vol] Alkaline phosphatase [Enzymatic activity/volume] in Serum or Plasma High 34-104 [facility] Appearance of UrineOrdered B y: Geoffrey Ibrahim on 09-21-2024 Appearance (U) Urine appearance Clear [facility] Aspartate aminotransferase [ Enzymatic activity/volume] in Serum or PlasmaOrdered By: Geoffrey Ibrahim on 09-21-2024 AST [Catalytic activity/Vol] Aspartate aminotransferase [Enzymatic activity/volume] in Serum or Plasma High 13-39 [facility] Basophils Auto (Bld) [#/Vol] Ordered By: Geoffrey Ibrahim on 09-21-2024 Basophils (Bld) [#/Vol] Automated basophil count [facility] Basophils/100 WBC Auto (Bld) Ordered By: Geoffrey Ibrahim on 09-21-2024 Basophils/100 WBC (Bld) Automated basophil % [facility] Bilirubin Test strip Ql (U)O rdered By: Geoffrey Ibrahim on 09-21-2024 Bilirubin Ql (U) Bilirubin.total [Pre sence] in Urine by Test strip Negative [facility] Bilirubin.total [Mass/volume ] in Serum or PlasmaOrdered By: Geoffrey Ibrahim on 09-21-2024 Bilirubin [Mass/Vol] Bilirubin.total [Mass/volume] in Serum or Plasma High 0.3-1.0 [facility] Comment on above: Samples from [...] [Mass/volume] in Blood Estimated from glycated hemoglobin [facility] CMP with reflex to A1Con Albumin [Mass/Vol] 2.6 g/dL Low 3.5-5.7 The Counts Include [address] [facility] Comment on above: Performed By: #### A LPHA PHEN, MITOM2, HBSAG, HCBIGM, HBCAB, HBSAB, DYLAN, SMAB, HAAB, HAABT, HCV RX PCR, AFPTM, CERULOP, L-K MICRO, IGG, HEMOCHROM #### [facility] , #### KYLE, CMP, PT, CBC #### [address] Albumin/Globulin [Mass ratio] 0.7 {ratio} Normal The Counts Include [address] [facility] Comment on above: Performed By: #### A LPHA PHEN, MITOM2, HBSAG, HCBIGM, HBCAB, HBSAB, DYLAN, SMAB, HAAB, HAABT, HCV RX PCR, AFPTM, CERULOP, L-K MICRO, IGG, HEMOCHROM #### [facility] , #### KYLE, CMP, PT, CBC #### [address] ALP [Catalytic activity/Vol] 289 U/L High 34-104 The Counts Include [address] [facility] Comment on above: Result Comment: PERF ORMED BY: [place] [address] PATHOLOGIST HIV CTS SPECIALIST LEANDRA WALSH M.D. Performed By: #### A LPHA PHEN, MITOM2, HBSAG, HCBIGM, HBCAB, HBSAB, DYLAN, SMAB, HAAB, HAABT, HCV RX PCR, AFPTM, CERULOP, L-K MICRO, IGG, HEMOCHROM #### [facility] , #### KYLE, CMP, PT, CBC #### [address] ALT [Catalytic activity/Vol] 70 U/L High 7-52 The Counts Include [address] [facility] Comment on above: Performed By: #### A LPHA PHEN, MITOM2, HBSAG, HCBIGM, HBCAB, HBSAB, DYLAN, SMAB, HAAB, HAABT, HCV RX PCR, AFPTM, CERULOP, L-K MICRO, IGG, HEMOCHROM #### [facility] , #### KYLE, CMP, PT, CBC #### [address] Anion gap [Moles/Vol] 10.6 mmol/L Normal 6.0-15.0 Th e Counts Include [address] [facility] Comment on above: Performed By: #### A LPHA PHEN, MITOM2, HBSAG, HCBIGM, HBCAB, HBSAB, DYLAN, SMAB, HAAB, HAABT, HCV RX PCR, AFPTM, CERULOP, L-K MICRO, IGG, HEMOCHROM #### [facility] , #### KYLE, CMP, PT, CBC #### [address] AST [Catalytic activity/Vol] 143 U/L High 13-39 The Counts Include [address] [facility] Comment on above: Performed By: #### A LPHA PHEN, MITOM2, HBSAG, HCBIGM, HBCAB, HBSAB, DYLAN, SMAB, HAAB, HAABT, HCV RX PCR, AFPTM, CERULOP, L-K MICRO, IGG, HEMOCHROM #### [facility] , #### KYLE, CMP, PT, CBC #### [address] Bilirubin [Mass/Vol] 1.8 mg/dL High 0.3-1.0 The Counts Include [address] [facility] Comment on above: Result Comment: Samp les from patients who have taken Naproxen have shown spurious elevation in Total Bilirubin levels. A metabolite of Naproxen, O-desmethylnaproxen, has been shown to interfere with the Jendrassik-Grof method for measuring Total Bilirubin. Performed By: #### A LPHA PHEN, MITOM2, HBSAG, HCBIGM, HBCAB, HBSAB, DYLAN, SMAB, HAAB, HAABT, HCV RX PCR, AFPTM, CERULOP, L-K MICRO, IGG, HEMOCHROM #### [facility] , #### KYLE, CMP, PT, CBC #### [place] [address] [place] Calcium [Mass/Vol] 8.9 mg/dL Normal 8.6-10.3 The Counts Include [address] [facility] Comment on above: Performed By: #### A LPHA PHEN, MITOM2, HBSAG, HCBIGM, HBCAB, HBSAB, DYLAN, SMAB, HAAB, HAABT, HCV RX PCR, AFPTM, CERULOP, L-K MICRO, IGG, HEMOCHROM #### [facility] , #### KYLE, CMP, PT, CBC #### [address] Chloride [Moles/Vol] 102 mmol/L Normal 98-107 The Counts Include [address] [facility] Comment on above: Performed By: #### A LPHA PHEN, MITOM2, HBSAG, HCBIGM, HBCAB, HBSAB, DYLAN, SMAB, HAAB, HAABT, HCV RX PCR, AFPTM, CERULOP, L-K MICRO, IGG, HEMOCHROM #### [facility] , #### KYLE, CMP, PT, CBC #### [address] CO2 [Moles/Vol] 26.0 mmol/L Normal 21.0-31.0 The Counts Include [address] [facility] Comment on above: Performed By: #### A LPHA PHEN, MITOM2, HBSAG, HCBIGM, HBCAB, HBSAB, DYLAN, SMAB, HAAB, HAABT, HCV RX PCR, AFPTM, CERULOP, L-K MICRO, IGG, HEMOCHROM #### [facility] , #### KYLE, CMP, PT, CBC #### [address] Creatinine [Mass/Vol] 1.24 mg/dL Normal 0.70-1.30 The Counts Include [address] [facility] Comment on above: Performed By: #### A LPHA PHEN, MITOM2, HBSAG, HCBIGM, HBCAB, HBSAB, DYLAN, SMAB, HAAB, HAABT, HCV RX PCR, AFPTM, CERULOP, L-K MICRO, IGG, HEMOCHROM #### [facility] , #### KYLE, CMP, PT, CBC #### [address] GFR/1.73 sq M.predicted MDRD (S/P/Bld) [Vol rate/Area] mL/min/{1.73_m2} Normal The Counts Include [address] [facility] Comment on above: Performed By: #### A LPHA PHEN, MITOM2, HBSAG, HCBIGM, HBCAB, HBSAB, DYLAN, SMAB, HAAB, HAABT, HCV RX PCR, AFPTM, CERULOP, L-K MICRO, IGG, HEMOCHROM #### [facility] , #### KYLE, CMP, PT, CBC #### [address] Globulin (S) [Mass/Vol] 3.5 g/dL Normal The Counts Include [address] [facility] Comment on above: Performed By: #### A LPHA PHEN, MITOM2, HBSAG, HCBIGM, HBCAB, HBSAB, DYLAN, SMAB, HAAB, HAABT, HCV RX PCR, AFPTM, CERULOP, L-K MICRO, IGG, HEMOCHROM #### [facility] , #### KYLE, CMP, PT, CBC #### [address] Glucose [Mass/Vol] 114 mg/dL High 70-100 The Counts Include [address] [facility] Comment on above: Result Comment: ADA recommended reference range Performed By: #### A LPHA PHEN, MITOM2, HBSAG, HCBIGM, HBCAB, HBSAB, DYLAN, SMAB, HAAB, HAABT, HCV RX PCR, AFPTM, CERULOP, L-K MICRO, IGG, HEMOCHROM #### [facility] , #### KYLE, CMP, PT, CBC #### [address] Potassium [Moles/Vol] 4.6 mmol/L Normal 3.5-5.1 The Counts Include [address] [facility] Comment on above: Performed By: #### A LPHA PHEN, MITOM2, HBSAG, HCBIGM, HBCAB, HBSAB, DYLAN, SMAB, HAAB, HAABT, HCV RX PCR, AFPTM, CERULOP, L-K MICRO, IGG, HEMOCHROM #### [facility] , #### KYLE, CMP, PT, CBC #### [address] Protein [Mass/Vol] 6.1 g/dL Low 6.4-8.9 The Counts Include [facility] Comment on above: Performed By: #### A LPHA PHEN, MITOM2, HBSAG, HCBIGM, HBCAB, HBSAB, DYLAN, SMAB, HAAB, HAABT, HCV RX PCR, AFPTM, CERULOP, L-K MICRO, IGG, HEMOCHROM #### [facility] , #### KYLE, CMP, PT, CBC #### [address] Sodium [Moles/Vol] 134 mmol/L Low 136-145 The Counts Include [facility] Comment on above: Performed By: #### A LPHA PHEN, MITOM2, HBSAG, HCBIGM, HBCAB, HBSAB, DYLAN, SMAB, HAAB, HAABT, HCV RX PCR, AFPTM, CERULOP, L-K MICRO, IGG, HEMOCHROM #### [facility] , #### KYLE, CMP, PT, CBC #### [address] Urea nitrogen [Mass/Vol] 32 mg/dL High 7-25 The Counts Include [address] [facility] Comment on above: Performed By: #### A LPHA PHEN, MITOM2, HBSAG, HCBIGM, HBCAB, HBSAB, DYLAN, SMAB, HAAB, HAABT, HCV RX PCR, AFPTM, CERULOP, L-K MICRO, IGG, HEMOCHROM #### [facility] , #### KYLE, CMP, PT, CBC #### [address] Calcium [Mass/volume] in Ser um or PlasmaOrdered By: Geoffrey Ibrahim on 09-21-2024 Calcium [Mass/Vol] Calcium [Mass/volume ] in Serum or Plasma 8.6-10.3 [facility] Carbon dioxide, total [Moles /volume] in Serum or PlasmaOrdered By: Geoffrey Ibrahim on 09-21-2024 CO2 [Moles/Vol] Carbon dioxide, tota l [Moles/volume] in Serum or Plasma 21.0-31.0 [facility] Chloride [Moles/volume] in S saud or PlasmaOrdered By: Geoffrey Ibrahim on 09-21-2024 Chloride [Moles/Vol] Chloride [Moles/vol ume] in Serum or Plasma 98-107 [facility] Color Auto (U)Ordered By: Claudia Ibrahim on 09-21-2024 Color (U) Color of Urine by [facility] Creatinine [Mass/volume] in Serum or PlasmaOrdered By: Geoffrey Ibrahim on 09-21-2024 Creatinine [Mass/Vol] Creatinine [Mass/v olume] in Serum or Plasma 0.70-1.30 [facility] Diff and CBCon 09-21-2024 Erythrocyte distribution width (RBC) [Ratio] 15.5 % High 12.0-14.8 The Counts Include [facility] Comment on above: Performed By: #### A LPHA PHEN, MITOM2, HBSAG, HCBIGM, HBCAB, HBSAB, DYLAN, SMAB, HAAB, HAABT, HCV RX PCR, AFPTM, CERULOP, L-K MICRO, IGG, HEMOCHROM #### [facility] , #### KYLE, CMP, PT, CBC #### [facility] [address] Hematocrit (Bld) [Volume fraction] 42.1 % Normal 38.8-50.0 The Counts Include [address] [facility] Comment on above: Performed By: #### A LPHA PHEN, MITOM2, HBSAG, HCBIGM, HBCAB, HBSAB, DYLAN, SMAB, HAAB, HAABT, HCV RX PCR, AFPTM, CERULOP, L-K MICRO, IGG, HEMOCHROM #### [facility] , #### KYLE, CMP, PT, CBC #### [facility] [address] Hemoglobin (Bld) [Mass/Vol] 14.7 g/dL Normal 13.0-17.0 The Counts Include [address] [facility] Comment on above: Performed By: #### A LPHA PHEN, MITOM2, HBSAG, HCBIGM, HBCAB, HBSAB, DYLAN, SMAB, HAAB, HAABT, HCV RX PCR, AFPTM, CERULOP, L-K MICRO, IGG, HEMOCHROM #### [facility] , #### KYLE, CMP, PT, CBC #### [address] Lymphocytes/100 WBC (Bld) 4 % Low 18-42 The Counts Include [facility] Comment on above: Performed By: #### A LPHA PHEN, MITOM2, HBSAG, HCBIGM, HBCAB, HBSAB, DYLAN, SMAB, HAAB, HAABT, HCV RX PCR, AFPTM, CERULOP, L-K MICRO, IGG, HEMOCHROM #### [facility] , #### KYLE, CMP, PT, CBC #### [address] MCH (RBC) [Entitic mass] 33.4 pg Normal 27.5-35.2 The Counts Include [address] [facility] Comment on above: Performed By: #### A LPHA PHEN, MITOM2, HBSAG, HCBIGM, HBCAB, HBSAB, DYLAN, SMAB, HAAB, HAABT, HCV RX PCR, AFPTM, CERULOP, L-K MICRO, IGG, HEMOCHROM #### [facility] , #### KYLE, CMP, PT, CBC #### [address] MCV (RBC) [Entitic vol] 95.4 fL Normal 83.5-101 The Counts Include [address] [facility] Comment on above: Performed By: #### A LPHA PHEN, MITOM2, HBSAG, HCBIGM, HBCAB, HBSAB, DYLAN, SMAB, HAAB, HAABT, HCV RX PCR, AFPTM, CERULOP, L-K MICRO, IGG, HEMOCHROM #### [facility] , #### KYLE, CMP, PT, CBC #### [address] Mean Corpuscular HGB Conc 35.0 g/dL Normal 32.5-35.6 The Counts Include [address] [facility] Comment on above: Performed By: #### A LPHA PHEN, MITOM2, HBSAG, HCBIGM, HBCAB, HBSAB, DYLAN, SMAB, HAAB, HAABT, HCV RX PCR, AFPTM, CERULOP, L-K MICRO, IGG, HEMOCHROM #### [facility] , #### KYLE, CMP, PT, CBC #### [address] Monocytes/100 WBC (Bld) 9 % Normal 2-11 The Counts Include [address] [facility] Comment on above: Performed By: #### A LPHA PHEN, MITOM2, HBSAG, HCBIGM, HBCAB, HBSAB, DYLAN, SMAB, HAAB, HAABT, HCV RX PCR, AFPTM, CERULOP, L-K MICRO, IGG, HEMOCHROM #### [facility] , #### KYLE, CMP, PT, CBC #### [address] Platelet Estimate Normal Normal Normal The Counts Include [address] [facility] Comment on above: Performed By: #### A LPHA PHEN, MITOM2, HBSAG, HCBIGM, HBCAB, HBSAB, DYLAN, SMAB, HAAB, HAABT, HCV RX PCR, AFPTM, CERULOP, L-K MICRO, IGG, HEMOCHROM #### [facility] , #### KYLE, CMP, PT, CBC #### [address] Platelet mean volume (Bld) [Entitic vol] 7.8 fL Normal 6.6-10.1 The Counts Include [address] [facility] Comment on above: Performed By: #### A LPHA PHEN, MITOM2, HBSAG, HCBIGM, HBCAB, HBSAB, DYLAN, SMAB, HAAB, HAABT, HCV RX PCR, AFPTM, CERULOP, L-K MICRO, IGG, HEMOCHROM #### [facility] , #### KYLE, CMP, PT, CBC #### [address] Platelet Morphology Normal Normal Normal The Counts Include [address] [facility] Comment on above: Result Comment: PERF ORMED BY: [place] [address] PATHOLOGIST HIV CTS SPECIALIST LEANDRA WALSH M.D. Performed By: #### A LPHA PHEN, MITOM2, HBSAG, HCBIGM, HBCAB, HBSAB, DYLAN, SMAB, HAAB, HAABT, HCV RX PCR, AFPTM, CERULOP, L-K MICRO, IGG, HEMOCHROM #### [facility] , #### KYLE, CMP, PT, CBC #### [address] Platelets (Bld) [#/Vol] 188 10*3/uL Normal 150-450 The Counts Include [facility] Comment on above: Performed By: #### A LPHA PHEN, MITOM2, HBSAG, HCBIGM, HBCAB, HBSAB, DYLAN, SMAB, HAAB, HAABT, HCV RX PCR, AFPTM, CERULOP, L-K MICRO, IGG, HEMOCHROM #### [facility] , #### KYLE, CMP, PT, CBC #### [address] RBC (Bld) [#/Vol] 4.42 10*6/uL Normal 3.90-5.60 The Counts Include [address] [facility] Comment on above: Performed By: #### A LPHA PHEN, MITOM2, HBSAG, HCBIGM, HBCAB, HBSAB, DYLAN, SMAB, HAAB, HAABT, HCV RX PCR, AFPTM, CERULOP, L-K MICRO, IGG, HEMOCHROM #### [facility] , #### KYLE, CMP, PT, CBC #### [address] RBC morphology finding Nom (Bld) Normal Normal Normal The Counts Include [address] [facility] Comment on above: Performed By: #### A LPHA PHEN, MITOM2, HBSAG, HCBIGM, HBCAB, HBSAB, DYLAN, SMAB, HAAB, HAABT, HCV RX PCR, AFPTM, CERULOP, L-K MICRO, IGG, HEMOCHROM #### [facility] , #### KYLE, CMP, PT, CBC #### [address] Segmented neutrophils/100 WBC (Bld) 87 % High 50-70 The Counts Include [address] [facility] Comment on above: Performed By: #### A LPHA PHEN, MITOM2, HBSAG, HCBIGM, HBCAB, HBSAB, DYLAN, SMAB, HAAB, HAABT, HCV RX PCR, AFPTM, CERULOP, L-K MICRO, IGG, HEMOCHROM #### [facility] , #### KYLE, CMP, PT, CBC #### [address] WBC (Bld) [#/Vol] 5.4 10*3/uL Normal 4.1-10.5 The Counts Include [address] [facility] Comment on above: Performed By: #### A LPHA PHEN, MITOM2, HBSAG, HCBIGM, HBCAB, HBSAB, DYLAN, SMAB, HAAB, HAABT, HCV RX PCR, AFPTM, CERULOP, L-K MICRO, IGG, HEMOCHROM #### [facility] , #### KYLE, CMP, PT, CBC #### [address] EBS A1C with Estimated [address] [place] regulo 09-21-2024 Glucose [Mass/Vol] 134 mg/dL Normal The Counts Include [facility] Comment on above: Result Comment: PERF ORMED BY: [place] [address] PATHOLOGIST HIV CTS SPECIALIST LEANDRA WALSH M.D. Performed By: #### A LPHA PHEN, MITOM2, HBSAG, HCBIGM, HBCAB, HBSAB, DYLAN, SMAB, HAAB, HAABT, HCV RX PCR, AFPTM, CERULOP, L-K MICRO, IGG, HEMOCHROM #### [facility] , #### KYLE, CMP, PT, CBC #### [facility] [address] [id number] [facility] ECG 12 lead ECGon 09-21-2024 ECG 12 lead ECG [facility] [address] [place] [address] [place] [address] Electrocardiograph Report Signed Patient: Gerson Penn MR#: [id number] : 1955 Acct:[id number] Age/Sex: 68 / M ADM Date: 09/21/24 Loc: PS Room: Type: [facility] Attending Dr: Geoffrey Ibrahim DO Ordering [...] When compared with ECG of 04-Oct-2012 08:47, [place] interval has decreased Confirmed by Taj Palm ([id number]) on 09/21/2024 8:57:00 AM Referred By: Electronically Signed By: Taj Palm Transcribed By: MUS Signed By Taj Palm MD 09/21/24 0830 Normal The Counts Include [address] [facility] Eosinophils Auto (Bld) [#/Vo l]Ordered By: Geoffrey Ibrahim on 09-21-2024 Eosinophils (Bld) [#/Vol] Automated eosinophil count [facility] Eosinophils/100 WBC Auto (Bl d)Ordered By: Geoffrey Ibrahim on 09-21-2024 Eosinophils/100 WBC (Bld) Automated eosinophil % [facility] Erythrocyte distribution wid th Auto (RBC) [Ratio]Ordered By: Geoffrey Ibrahim on 09-21-2024 Erythrocyte distribution width (RBC) [Ratio] Erythrocyte distribution width [Ratio] by Automated count High 12.0-14.8 [facility] Erythrocyte morphology findi ng [Identifier] in BloodOrdered By: Geoffrey Ibrahim on 09-21-2024 RBC morphology finding Nom (Bld) RBC morphology Normal [facility] Globulin Calc (S) [Mass/Vol] Ordered By: Geoffrey Ibrahim on 09-21-2024 Globulin (S) [Mass/Vol] Serum globulin measurement by calculation (mass/volume) [facility] Glucose [Mass/volume] in Ser um or PlasmaOrdered By: Geoffrey Ibrahim on 09-21-2024 Glucose [Mass/Vol] Glucose [Mass/volume ] in Serum or Plasma High 70-100 [facility] Comment on above: ADA recommended refe rence range Glucose [Mass/volume] in Uri ne by Test stripOrdered By: Geoffrey Ibrahim on 09-21-2024 Glucose Test strip (U) [Mass/Vol] Glucose [Mass/volume] in Urine by Test strip Normal [facility] Hematocrit Auto (Bld) [Volum e fraction]Ordered By: Geoffrey Ibrahim on 09-21-2024 Hematocrit (Bld) [Volume fraction] Hematocrit [Volume Fraction] of Blood by Automated count 38.8-50.0 [facility] Hemoglobin A1c measurementOr dered By: Geoffrey Ibrahim on 09-21-2024 HbA1c (Bld) [Mass fraction] 6.3 % High 4.3-5.6 [facility] Comment on above: Increased risk for d iabetes: 5.7 - 6.4diabetes: >6.4glycemic control for adults with diabetes: <7.0 Result Comment: Incr eased risk for diabetes: 5.7 - 6.4 diabetes: >6.4 glycemic control for adults with diabetes: <7.0 Performed By: #### A LPHA PHEN, MITOM2, HBSAG, HCBIGM, HBCAB, HBSAB, DYLAN, SMAB, HAAB, HAABT, HCV RX PCR, AFPTM, CERULOP, L-K MICRO, IGG, HEMOCHROM #### [facility] , #### KYLE, CMP, PT, CBC #### [facility] [address] [place] [address] Hemoglobin Test strip Ql (U) Ordered By: Geoffrey Ibrahim on 09-21-2024 Hemoglobin Ql (U) Hemoglobin [Presence ] in Urine by Test strip Negative [facility] Hemoglobin [Mass/volume] in BloodOrdered By: Geoffrey Ibrahim on 09-21-2024 Hemoglobin (Bld) [Mass/Vol] Hemoglobin [Mass/volume] in Blood 13.0-17.0 [facility] Ketones Test strip Ql (U)Ord ered By: Geoffrey Ibrahim on 09-21-2024 Ketones Ql (U) Ketones [Presence] i n Urine by Test strip Negative [facility] Leukocyte esterase [Presence ] in Urine by Test stripOrdered By: Geoffrey Ibrahim on 09-21-2024 Leukocyte esterase Test strip Ql (U) Leukocyte esterase [Presence] in Urine by Test strip Negative [facility] Leukocytes [#/volume] correc adrián for nucleated erythrocytes in Blood by Automated counOrdered By: Geoffrey Ibrahim on 09-21-2024 WBC corrected for nucl RBC Auto (Bld) [#/Vol] Leukocytes [#/volume] corrected for nucleated erythrocytes in Blood by Automated coun 4.1-10.5 [facility] Lymphocytes Auto (Bld) [#/Vo l]Ordered By: Geoffrey Ibrahim on 09-21-2024 Lymphocytes (Bld) [#/Vol] Lymphocytes [#/volume] in Blood by Automated count [facility] Lymphocytes/100 WBC Auto (Bl d)Ordered By: Geoffrey Ibrahim on 09-21-2024 Lymphocytes/100 WBC (Bld) Lymphocytes/100 leukocytes in Blood by Automated count [facility] Lymphocytes/100 WBC Manual c nt (Bld)Ordered By: Geoffrey Ibrahim on 09-21-2024 Lymphocytes/100 WBC (Bld) Lymphocytes/100 leukocytes in Blood by Manual count Low 18-42 [facility] MCH Auto (RBC) [Entitic mass ]Ordered By: Geoffrey Ibrahim on 09-21-2024 MCH (RBC) [Entitic mass] MCH [Entitic mass] by Automated count 27.5-35.2 [facility] MCHC Auto (RBC) [Mass/Vol]Or dered By: Geoffrey Ibrahim on 09-21-2024 MCHC (RBC) [Mass/Vol] MCHC [Mass/volume] by Automated count 32.5-35.6 [facility] MCV Auto (RBC) [Entitic vol] Ordered By: Geoffrey Ibrahim on 09-21-2024 MCV (RBC) [Entitic vol] MCV [Entitic volume] by Automated count 83.5-101 [facility] Monocytes Auto (Bld) [#/Vol] Ordered By: Geoffrey Ibrahim on 09-21-2024 Monocytes (Bld) [#/Vol] Automated blood monocyte count [facility] Monocytes/100 WBC Auto (Bld) Ordered By: Geoffrey Ibrahim on 09-21-2024 Monocytes/100 WBC (Bld) Automated monocyte % [facility] Monocytes/100 WBC Manual cnt (Bld)Ordered By: Geoffrey Ibrahim on 09-21-2024 Monocytes/100 WBC (Bld) Monocytes/100 leukocytes in Blood by Manual count 2-11 [facility] Neutrophils Auto (Bld) [#/Vo l]Ordered By: Geoffrey Ibrahim on 09-21-2024 Neutrophils (Bld) [#/Vol] Neutrophils [#/volume] in Blood by Automated count [facility] Neutrophils/100 WBC Auto (Bl d)Ordered By: Geoffrey bIrahim on 09-21-2024 Neutrophils/100 WBC (Bld) Automated neutrophil % [facility] Nitrite Test strip Ql (U)Ord ered By: Geoffrey Ibrahim on 09-21-2024 Nitrite Ql (U) Nitrite [Presence] i n Urine by Test strip Negative [facility] No Panel InformationOrdered By: Geoffrey Ibrahim on 09-21-2024 Estimated GFR (CKD-EPI) > 60.0 mL/Min [facility] Creatinine Clearance (Chem N/A [facility] Nucleated erythrocytes [Pres ence] in Blood by Automated countOrdered By: Geoffrey Ibrahim on 09-21-2024 Nucleated RBC Auto Ql (Bld) Nucleated erythrocytes [Presence] in Blood by Automated count [facility] Platelet adequacy [Presence] in Blood by Light microscopyOrdered By: Geoffrey Ibrahim on 09-21-2024 Platelets LM Ql (Bld) Platelet adequacy [Presence] in Blood by Light microscopy Normal [facility] Platelet mean volume Auto (B ld) [Entitic vol]Ordered By: Geoffrey Ibrahim on 09-21-2024 Platelet mean volume (Bld) [Entitic vol] Platelet mean volume [Entitic volume] in Blood by Automated count 6.6-10.1 [facility] Platelet morphology finding [Identifier] in BloodOrdered By: Geoffrey Ibrahim on 09-21-2024 Platelet morphology finding Nom (Bld) Platelet morphology finding [Identifier] in Blood Normal [facility] Platelets Auto (Bld) [#/Vol] Ordered By: Geoffrey Ibrahim on 09-21-2024 Platelets (Bld) [#/Vol] Platelets [#/volume] in Blood by Automated count 150-450 [facility] Potassium [Moles/volume] in Serum or PlasmaOrdered By: Geoffrey Ibrahim on 09-21-2024 Potassium [Moles/Vol] Potassium [Moles/v olume] in Serum or Plasma 3.5-5.1 [facility] Protein Test strip (U) [Mass /Vol]Ordered By: Geoffrey Ibrahim on 09-21-2024 Protein (U) [Mass/Vol] Protein [Mass/vol ume] in Urine by Test strip Negative [facility] Protein [Mass/volume] in Ser um or PlasmaOrdered By: Geoffrey Ibrahim on 09-21-2024 Protein [Mass/Vol] Protein [Mass/volume ] in Serum or Plasma Low 6.4-8.9 [facility] RBC Auto (Bld) [#/Vol]Ordere d By: Geoffrey Ibrahim on 09-21-2024 RBC (Bld) [#/Vol] Erythrocytes [#/volu me] in Blood by Automated count 3.90-5.60 [facility] Segmented neutrophils/100 WB C Manual cnt (Bld)Ordered By: Geoffrey Ibrahim on 09-21-2024 Segmented neutrophils/100 WBC (Bld) Manual blood segmented neutrophils/100 leukocytes High 50-70 [facility] Serum or plasma albumin/glob ulin mass ratioOrdered By: Geoffrey Ibrahim on 09-21-2024 Albumin/Globulin [Mass ratio] Serum or plasma albumin/globulin mass ratio [facility] Serum or plasma anion gap de terminationOrdered By: Geoffrey Ibrahim on 09-21-2024 Anion gap [Moles/Vol] Serum or plasma an ion gap determination 6.0-15.0 [facility] Sodium [Moles/volume] in Ser um or PlasmaOrdered By: Geoffrey Ibrahim on 09-21-2024 Sodium [Moles/Vol] Sodium [Moles/volume ] in Serum or Plasma Low 136-145 [facility] Specific gravity Test strip (U) [Rel density]Ordered By: Geoffrey Ibrahim on 09-21-2024 Specific gravity (U) [Rel density] Specific gravity of Urine by Test strip 1.001-1.03 0 [facility] Urea nitrogen [Mass/volume] in Serum or PlasmaOrdered By: Geoffrey Ibrahim on 09-21-2024 Urea nitrogen [Mass/Vol] Urea nitrogen [Mass/volume] in Serum or Plasma High 7-25 [facility] Urinalysison 09-21-2024 Appearance (U) Clear Normal Clear The Counts Include [address] [facility] Comment on above: Order Comment: Name Collection Type:: Clean-Voided Midstream Performed By: #### A LPHA PHEN, MITOM2, HBSAG, HCBIGM, HBCAB, HBSAB, DYLAN, SMAB, HAAB, HAABT, HCV RX PCR, AFPTM, CERULOP, L-K MICRO, IGG, HEMOCHROM #### [facility] , #### KYLE, CMP, PT, CBC #### [facility] [address] [place] [address] [place] Bilirubin,Urine Negative Normal Negative The Counts Include [address] [facility] Comment on above: Order Comment: Name Collection Type:: Clean-Voided Midstream Performed By: #### A LPHA PHEN, MITOM2, HBSAG, HCBIGM, HBCAB, HBSAB, DYLAN, SMAB, HAAB, HAABT, HCV RX PCR, AFPTM, CERULOP, L-K MICRO, IGG, HEMOCHROM #### [facility] , #### KYLE, CMP, PT, CBC #### [facility] [address] [place] [address] [place] Color (U) Yellow Normal Yellow The Counts Include [address] [facility] Comment on above: Order Comment: Name Collection Type:: Clean-Voided Midstream Performed By: #### A LPHA PHEN, MITOM2, HBSAG, HCBIGM, HBCAB, HBSAB, DYLAN, SMAB, HAAB, HAABT, HCV RX PCR, AFPTM, CERULOP, L-K MICRO, IGG, HEMOCHROM #### [facility] , #### KYLE, CMP, PT, CBC #### [address] Glucose Ql (U) Normal Normal Normal The Counts Include [address] [facility] Comment on above: Order Comment: Name Collection Type:: Clean-Voided Midstream Performed By: #### A LPHA PHEN, MITOM2, HBSAG, HCBIGM, HBCAB, HBSAB, DYLAN, SMAB, HAAB, HAABT, HCV RX PCR, AFPTM, CERULOP, L-K MICRO, IGG, HEMOCHROM #### [facility] , #### KYLE, CMP, PT, CBC #### [address] Ketones Ql (U) Negative Normal Negative The Counts Include [address] [facility] Comment on above: Order Comment: Name Collection Type:: Clean-Voided Midstream Performed By: #### A LPHA PHEN, MITOM2, HBSAG, HCBIGM, HBCAB, HBSAB, DYLAN, SMAB, HAAB, HAABT, HCV RX PCR, AFPTM, CERULOP, L-K MICRO, IGG, HEMOCHROM #### [facility] , #### KYLE, CMP, PT, CBC #### [address] Leukocyte esterase Test strip Ql (U) Negative Normal Negative The Counts Include [address] [facility] Comment on above: Order Comment: Name Collection Type:: Clean-Voided Midstream Performed By: #### A LPHA PHEN, MITOM2, HBSAG, HCBIGM, HBCAB, HBSAB, DYLAN, SMAB, HAAB, HAABT, HCV RX PCR, AFPTM, CERULOP, L-K MICRO, IGG, HEMOCHROM #### [facility] , #### KYLE, CMP, PT, CBC #### [address] Nitrite,Urine Negative Normal Negative The Counts Include [address] [facility] Comment on above: Order Comment: Name Collection Type:: Clean-Voided Midstream Performed By: #### A LPHA PHEN, MITOM2, HBSAG, HCBIGM, HBCAB, HBSAB, DYLAN, SMAB, HAAB, HAABT, HCV RX PCR, AFPTM, CERULOP, L-K MICRO, IGG, HEMOCHROM #### [facility] , #### KYLE, CMP, PT, CBC #### [address] Occult Blood,Urine Negative Normal Negative The Counts Include [address] [facility] Comment on above: Order Comment: Name Collection Type:: Clean-Voided Midstream Result Comment: PERF ORMED BY: [place] [address] PATHOLOGIST HIV CTS SPECIALIST LEANDRA WALSH M.D. Performed By: #### A LPHA PHEN, MITOM2, HBSAG, HCBIGM, HBCAB, HBSAB, DYLAN, SMAB, HAAB, HAABT, HCV RX PCR, AFPTM, CERULOP, L-K MICRO, IGG, HEMOCHROM #### [facility] , #### KYLE, CMP, PT, CBC #### [place] [address] [place] pH (U) 6.0 [pH] Normal 5.0-9.0 The Counts Include [address] [facility] Comment on above: Order Comment: Name Collection Type:: Clean-Voided Midstream Performed By: #### A LPHA PHEN, MITOM2, HBSAG, HCBIGM, HBCAB, HBSAB, DYLAN, SMAB, HAAB, HAABT, HCV RX PCR, AFPTM, CERULOP, L-K MICRO, IGG, HEMOCHROM #### [facility] , #### KYLE, CMP, PT, CBC #### [place] [address] [place] Protein,Urine Negative Normal Negative The Counts Include [address] [facility] Comment on above: Order Comment: Name Collection Type:: Clean-Voided Midstream Performed By: #### A LPHA PHEN, MITOM2, HBSAG, HCBIGM, HBCAB, HBSAB, DYLAN, SMAB, HAAB, HAABT, HCV RX PCR, AFPTM, CERULOP, L-K MICRO, IGG, HEMOCHROM #### [facility] , #### KYLE, CMP, PT, CBC #### [address] Specificy [place],Urine 1.014 Normal 1.001-1.03 0 The Counts Include [address] [facility] Comment on above: Order Comment: Name Collection Type:: Clean-Voided Midstream Performed By: #### A LPHA PHEN, MITOM2, HBSAG, HCBIGM, HBCAB, HBSAB, DYLAN, SMAB, HAAB, HAABT, HCV RX PCR, AFPTM, CERULOP, L-K MICRO, IGG, HEMOCHROM #### [facility] , #### KYLE, CMP, PT, CBC #### [address] Urobilinogen,Urine Normal Normal Normal The Counts Include [address] [facility] Comment on above: Order Comment: Name Collection Type:: Clean-Voided Midstream Performed By: #### A LPHA PHEN, MITOM2, HBSAG, HCBIGM, HBCAB, HBSAB, DYLAN, SMAB, HAAB, HAABT, HCV RX PCR, AFPTM, CERULOP, L-K MICRO, IGG, HEMOCHROM #### [facility] , #### KYLE, CMP, PT, CBC #### [address] Urobilinogen Test strip (U) [Mass/Vol]Ordered By: Geoffrey Ibrahim on 09-21-2024 Urobilinogen (U) [Mass/Vol] Urobilinogen [Mass/volume] in Urine by Test strip Normal [facility] WBC Auto (Bld) [#/Vol]Ordere d By: Geoffrey Ibrahim on 09-21-2024 WBC (Bld) [#/Vol] Leukocytes [#/volume ] in Blood by Automated count 4.1-10.5 [facility] pH Test strip (U)Ordered By: Geoffrey Ibrahim on 09-21-2024 pH (U) pH of Urine by Test strip 5.0-9.0 [facility] BASIC METABOLIC PANELon 10- Anion gap [Moles/Vol] 9 mmol/L Normal 7-20 [facility] Comment on above: Performed By: #### L AB15 ####[facility] (BEAKER)[address] [place] [address] Calcium [Mass/Vol] 6.9 mg/dL Low 8.6-10.3 [facility] Comment on above: Performed By: #### L [id number] ####[facility] (BEAKER)[address] [place] [address] Chloride [Moles/Vol] 110 mmol/L High 98-107 [facility] Comment on above: Performed By: #### L AB15 ####[facility] (BEAKER)[address] [place] [address] CO2 [Moles/Vol] 22 mmol/L Normal 21-31 [facility] Comment on above: Performed By: #### L [id number] ####[facility] (BEAKER)[address] [place] [address] Creatinine [Mass/Vol] 1.04 mg/dL Normal 0.70-1.30 [facility] Comment on above: Performed By: #### L AB15 ####[facility] (BEAKER)[address] [place] [address] GLOMERULAR FILTRATION RATE ML/MIN/1.73 SQ M.PREDICTED 79.2 mL/min/1.73m*2 Normal >60.0 [facility] Comment on above: Result Comment: [facility]???s estimated glomerular filtration rate (eGFR) [...] of individuals. Performed By: #### L [id number] ####[facility] (BEAKER)[address] [place] [address] Glucose [Mass/Vol] 86 mg/dL Normal 70-100 [facility] Comment on above: Performed By: #### L [id number] ####[facility] (BEAKER)[address] [place] [address] Potassium [Moles/Vol] 3.9 mmol/L Normal 3.5-5.1 [facility] Comment on above: Performed By: #### L AB15 ####[facility] (BEAKER)[address] [place] [address] Sodium [Moles/Vol] 137 mmol/L Normal 136-145 [facility] Comment on above: Performed By: #### L [id number] ####[facility] (BEAKER)[address] [place] [address] Urea nitrogen [Mass/Vol] 32 mg/dL High 7-25 [facility] Comment on above: Performed By: #### L AB15 ####[facility] (BEAKER)[address] [place] [address] UREA NITROGEN/CREATININE (MASS RATIO) IN SER/PLAS 30.8 Normal [facility] Comment on above: Performed By: #### L [id number] ####[facility] (BEAKER)[address] [place] [address] [facility] 05-14-2024 ------- Attestation signed by Taj Otero MD [...] possible PCI. Joyce Rodrigues MD PGY-7 Interventional [employer] Teacher [facility] NURSNOTEon 05-14-2024 NURSNOTE Patient okay to disc harge at [address] Otero. [facility] NURSNOTE RN educated pt on d/ c instructions. This included: site care, limited physical activity, resume normal diet, future appointments, medications, and moderate sedation instructions. RN educated pt on when to notify physician and when to go to the hospital. RN encouraged pt to voice any questions or concerns, and answered any questions or concerns if pt verbalized. [facility] NURSNOTE Dr. Aparicio notifi ed of normal creatnine result. states pt ok for early discharge at 2:30 and no need to continue IVF. [facility] Orders Onlyon 05-04-2024 Orders Only [id number] Chencho Penn 1955 M Date Provider Department Center 05/04/2024 [place] Family History Problem Relation Age of Onset Colon cancer Mother Coronary artery disease Father Cancer Brother Family Status - Relation Status Age at Mother Father Brother Normal [facility] CREATININE, SERUMon 05-01-20 24 Creatinine [Mass/Vol] 1.45 mg/dL High 0.70-1.30 [facility] Comment on above: Performed By: #### L [id number] ####[facility] ([facility])[address] [place] [address] GLOMERULAR FILTRATION RATE ML/MIN/1.73 SQ M.PREDICTED 53.1 mL/min/1.73m*2 Low >60.0 [facility] Comment on above: Result Comment: [facility]???s estimated glomerular filtration rate (eGFR) [...] of individuals. Performed By: #### L [id number] ####[facility] [place] [address] CTA HEART CORONARY W IV CONT QUENTINTon 05-01-2024 CTA HEART CORONARY W IV CONTRAST [...] Condon MD. 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 Normal [facility] Office Visiton 04-29-2024 Follow-up visit [id number] Chencho Penn 1955 M Date Provider Department Center 04/29/2024 TAJ SUNSHINE ANTHONY [facility] Family History Problem Relation Age of Onset Colon cancer Mother Coronary artery disease Father Cancer Brother Family Status - Relation Status Age at Mother Father Brother Level of Service:36425 [place] OFFICE/OP CONSLTJ NEW/EST PT MOD MDM 40 MINUTES [facility] [place] 04-18-2023 Consent [id number]#1.00CD:[address] [facility] In office Testingon 04-18-20 23 In office Testing [id number]#1.00CD:127 [facility] Registrationon 04-18-2023 Registration [id number]#1.00CD:127 [facility] In office Testingon 03-15-20 23 In office Testing [id number]#1.00CD:[address] [facility] [place] 03-08-2023 Consent [id number]#1.00CD:127 [facility] Registrationon 03-08-2023 Registration [id number]#1.00CD:127 [facility] In office Testingon 02-06-20 23 In office Testing [id number]#1.00CD:127 [facility] [place] 02-04-2023 Consent [id number]#1.00CD:127 [facility] Registrationon 02-04-2023 Registration [id number]#1.00CD:127 [facility] Patient Correspondenceon Patient Correspondence [id number]#1.00CD:127 [facility] Physician Referralon 023 Physician Referral [id number]#1.00CD:127 [facility] Physician Referral [id number]#1.00CD:127 [facility] [place] 11-09-2022 Consent [id number]#1.00CD:127 [facility] In office Testingon 11-10-19 23 In office Testing [id number]#1.00CD:127 [facility] Registrationon 11-09-2022 Registration [id number]#1.00CD:127 [facility] [place] 07-27-2022 Consent [id number]#1.00CD:127 [facility] Registrationon 07-27-2022 Registration [id number]#1.00CD:[address] [facility] [place] 07-09-2022 Consent [id number]#1.00CD:[address] [facility] In office Testingon 07-09-20 In office Testing [id number]#1.00CD:[address] [facility] Registrationon 07-09-2022 Registration [id number]#1.00CD:[address] [facility] In office Testingon 07-06-20 In office Testing [id number]#1.00CD:[address] [facility] GLYCOHEMOGLOBIN A1Con 2021 ADA RECOMMENDATION SEE BELOW Normal [facility] Comment on above: Result Comment: ADA RECOMMENDED LIMIT 4.0 - 6.0 ADA THERAPEUTIC TARGET < 7.0 ACTION SUGGESTED > 7.0 Performed By: #### A 1C #### [facility] [address] [address] [address] Sandor Coffman Glucose [Mass/Vol] 140 mg/dL Normal [facility] Comment on above: Performed By: #### A 1C #### [facility] [address] [address] [address] Sandor Coffman HbA1c (Bld) [Mass fraction] 6.5 % Critically high 4.5-6.2 [facility] Comment on above: Performed By: #### A 1C #### [facility] [address] [address] [address] Sandor Coffman Registrationon 05-01-2022 Registration [id number]#1.00CD:[address] [facility] [place] 04-27-2022 Consent [id number]#1.00CD:[address] [facility] HIP LEFT 1 OR 2 VWS WITH PEL VISon 08-27-2019 HIP LEFT 1 OR 2 VWS WITH PELVIS [facility] Department of Radiology [address] [place] [address] Patient Name: GERSON PENN : 1955 [...] above. Electronically signed: David Sanford. Transcribed by: [email or web address], User Resident: Electronically Signed by: DAVID SANFORD @ 08/27/2019 01:52 PM Normal [facility] Comment on above: Order Comment: , Vie ws (X-RAY, HIP): Radiologic Protocol , Views (X-RAY, HIP): Radiologic Protocol , , , Ordering Provider - LIZET LOVELACE MD , HIP LEFT 1 OR 2 VWS WITH PEL VISon 06-18-2019 HIP LEFT 1 OR 2 VWS WITH PELVIS [facility] Department of Radiology [address] [place] [id number] Patient Name: GERSON PENN : 1955 Sex: M Age: Race: White Pt. Location: Patient Status: Ordered Date: 06/17/2019 3:35:00 PM Completed Date: 06/18/2019 10:30 AM Requesting Provider: LIZET LOVELACE Attending Provider: Report Copy To: Signs & Symptoms: Z96.642 Presence of left artificial hip joint I10 History: [place] Comments: , Views (X-RAY, HIP): Radiologic Protocol [...] loosening Electronically signed by:Carlos Cameron. Transcribed by: [email or web address], User Resident: Electronically Signed by: CARLOS CAMERON @ 06/18/2019 02:11 PM Normal [facility] Comment on above: Order Comment: , Heidie ws (X-RAY, HIP): Radiologic Protocol , Views (X-RAY, HIP): Radiologic Protocol , , , Ordering Provider - LIZET LOVELACE MD , Vital Signs Date Time Vital Sign Value Performing Clinician Annia pruitt 01-19-2025 09:12-0400 Diastolic blood pressure 57 mm[Hg] Geoffrey Ibrahim DO Work Phone: [facility] 01-19-2025 09:12-0400 Heart rate 74 /min Geoffrey Ibrahim DO Work Phone: [facility] 01-19-2025 09:12-0400 Respiratory rate 20 /min Geoffrey Ibrahim DO Work Phone: [facility] 01-19-2025 09:12-0400 SaO2% (BldA) [Mass fraction] 96 % Geoffrey Alexandria DO Work Phone: [facility] 01-19-2025 09:12-0400 Systolic blood pressure 113 mm[Hg] Geoffrey Alexandria DO Work Phone: [facility] 01-19-2025 08:42-0400 Inhaled oxygen flow rate 2 L/min Geoffrey Alexandria DO Work Phone: [facility] 01-19-2025 07:45-0400 Body height 177.8 cm Geoffrey Alexandria DO Work Phone: [facility] 01-19-2025 07:45-0400 Body weight 136 kg Geoffrey Alexandria DO Work Phone: [facility] 01-18-2025 09:13-0400 Respiratory rate 18 /min Crispin Early DPM Work Phone: [facility] 01-12-2025 11:54-0400 Body height 177.8 cm Geoffrey Alexandria DO Work Phone: [facility] 01-12-2025 11:54-0400 Body mass index (BMI) [Ratio] 42.2 kg/m2 Geoffrey Alexandria DO Work Phone: [facility] 01-12-2025 11:54-0400 Body weight 133.35 kg Geoffrey Alexandria DO Work Phone: [facility] 01-12-2025 11:13-0400 Body temperature 97.2 [degF] Geoffrey Alexandria DO Work Phone: [facility] 01-12-2025 11:13-0400 Diastolic blood pressure 64 mm[Hg] Geoffrey Alexandria DO Work Phone: [facility] 01-12-2025 11:13-0400 Heart rate 87 /min Geoffrey Alexandria DO Work Phone: [facility] 01-12-2025 11:13-0400 Inhaled oxygen flow rate 2 L/min Geoffrey Alexandria DO Work Phone: [facility] 01-12-2025 11:13-0400 Respiratory rate 18 /min Geoffrey Alexandria DO Work Phone: [facility] 01-12-2025 11:13-0400 Systolic blood pressure 101 mm[Hg] Geoffrey Alexandria DO Work Phone: [facility] 2024 09:50-0400 Body height 177.8 cm Mary Lomax MD Work Phone: [facility] 2024 09:50-0400 Body mass index (BMI) [Ratio] 44.34 kg/m2 Mary Lomax MD Work Phone: [facility] 2024 09:50-0400 Body weight 140.16 kg aMry Lomax MD Work Phone: [facility] 2024 09:50-0400 Diastolic blood pressure 82 mm[Hg] Mary Lomax MD Work Phone: [facility] 2024 09:50-0400 Systolic blood pressure 114 mm[Hg] Mary Lomax MD Work Phone: [facility] 11-05-2024 10:19-0400 Diastolic blood pressure 62 mm[Hg] Peggy Muñoz MD Work Phone: [facility] 11-05-2024 10:19-0400 Heart rate 73 /min Peggy Muñoz MD Work Phone: [facility] 11-05-2024 10:19-0400 Systolic blood pressure 141 mm[Hg] Peggy Muñoz MD Work Phone: [facility] 09-22-2024 16:40-0500 Diastolic blood pressure 68 mm[Hg] Peggy Muñoz MD Work Phone: [facility] 09-22-2024 16:40-0500 Heart rate 73 /min Peggy Muñoz MD Work Phone: [facility] 09-22-2024 16:40-0500 Respiratory rate 16 /min Peggy Muñoz MD Work Phone: [facility] 09-22-2024 16:40-0500 SaO2% (BldA) [Mass fraction] 92 % Peggy Muñoz MD Work Phone: [facility] 09-22-2024 16:40-0500 Systolic blood pressure 145 mm[Hg] Peggy Muñoz MD Work Phone: [facility] 09-22-2024 15:55-0500 Body temperature 97.4 [degF] Peggy Muñoz MD Work Phone: [facility] 09-22-2024 15:25-0500 Inhaled oxygen flow rate 6 L/min Peggy Muñoz MD Work Phone: [facility] 09-22-2024 12:02-0500 Body height 173.99 cm Peggy Muñoz MD Work Phone: [facility] 09-22-2024 12:02-0500 Body weight 140.7 kg Peggy Muñoz MD Work Phone: [facility] 09-18-2024 08:08-0500 Body height 180.34 cm [facility] 09-18-2024 08:08-0500 Body mass index (BMI) [Ratio] 43.1 kg/m2 [facility] 09-18-2024 08:08-0500 Body weight 140.21 kg [facility] Encounters Encounter Date Encounter Type Care Provider Facility Start: 02-03-2025 ambulatory NON STAFF Facility:[facility] Start: 01-27-2025 End: 01-27-2025 ambulatory NON STAFF [facility] Work Phone: Start: 01-27-2025 End: 01-27-2025 Departed Referred Truman Bernstein DO -LAB Path [facility] Start: 01-26-2025 End: 01-26-2025 Clinisync Result Encounter Oriana Salmeron MD Work Phone: [facility] Unsolicited Start: 01-26-2025 End: 01-26-2025 Clinisync Result Encounter Oriana Salmeron MD Work Phone: [facility] Unsolicited Start: 01-21-2025 End: 01-21-2025 Clinisync Result Encounter Oriana Salmeron MD Work Phone: [facility] Unsolicited Start: 01-21-2025 End: 01-21-2025 Clinisync Result Encounter Oriana Salmeron MD Work Phone: [facility] Unsolicited Start: 01-21-2025 Non-patient / Non-visit Kelley Kurtmary ryan [facility] Work Phone: Start: 01-19-2025 End: 01-19-2025 ambulatory Imad Asaad Facility:[facility] Start: 01-19-2025 Non-patient / Non-visit Imad Asaad Christy [facility] Work Phone: Start: 01-18-2025 End: 01-18-2025 Bamboo flowsheet Crispin [...] underlying condition with diabetic polyneuropathy, unspecified whether usp insulin use (HCC); Pain due to onychomycosis of toenails of both feet Start: 01-12-2025 Registered Recurring Marti Harrison APRN -[facility] Work Phone: Start: 01-08-2025 End: 01-08-2025 ambulatory Peggy Muñoz Facility:[facility] Start: 01-08-2025 End: 01-08-2025 Departed Referred Peggy Harrison MD -LAB Path [facility] Start: 12-30-2024 ambulatory [facility] Start: 2024 End: 2024 Office outpatient new 30 minutes Mary Lomax MD Work Phone: [facility] General Surgery Comment on above: Abnormal findings on diagnostic imaging of gallbladder (Primary Dx) Start: 2024 End: 2024 ambulatory [facility] Start: 12-18-2024 End: 02-10-2025 Telephone encounter Mary Lomax MD Work Phone: [facility] General Surgery Start: 12-18-2024 End: 12-18-2024 ambulatory [facility] Start: 12-18-2024 End: 12-18-2024 ambulatory [facility] Start: 11-26-2024 End: 11-26-2024 Patient encounter procedure Peggy Muñoz MD Work Phone: [facility] [place] Work Phone: Start: 11-26-2024 End: 11-26-2024 ambulatory Peggy Muñoz MD Work Phone: [facility] Work Phone: Start: 11-18-2024 End: 11-18-2024 ambulatory Peggy Muñoz MD Work Phone: [facility] Work Phone: Start: 11-18-2024 End: 11-18-2024 Departed Referred Peggy Muñoz MD Work Phone: [facility] Start: 11-05-2024 End: 11-05-2024 Patient encounter procedure Peggy Muñoz MD Work Phone: [facility] [place] Work Phone: Start: 11-05-2024 End: 11-05-2024 ambulatory Peggy Muñoz MD Work Phone: [facility] Work Phone: Start: 11-05-2024 End: 11-05-2024 ambulatory Peggy Muñoz MD Work Phone: [facility] Work Phone: Start: 11-05-2024 End: 11-05-2024 Patient encounter procedure Peggy Muñoz MD Work Phone: [facility] [address] [facility] Physician [facility] Work Phone: Start: 11-02-2024 End: 11-02-2024 ambulatory Peggy Muñoz MD Work Phone: [facility] Work Phone: Start: 11-02-2024 End: 11-02-2024 Patient encounter procedure Peggy Muñoz MD Work Phone: [facility] [address] [facility] Physician [facility] Work Phone: Start: 11-02-2024 End: 11-02-2024 Patient encounter procedure Peggy Muñoz MD Work Phone: [facility] Start: 11-02-2024 End: 11-02-2024 ambulatory Peggy Muñoz MD Work Phone: [facility] Work Phone: Start: 10-20-2024 End: 10-20-2024 ambulatory Peggy Muñoz MD Work Phone: [facility] Work Phone: Start: 10-20-2024 End: 10-20-2024 Departed Referred Peggy Muñoz MD Work Phone: [facility] Start: 10-07-2024 End: 10-07-2024 ambulatory Peggy Muñoz MD Work Phone: [facility] Work Phone: Start: 10-07-2024 End: 10-07-2024 Patient encounter procedure Peggy Muñoz MD Work Phone: [facility] [address] [facility] Physician [facility] Work Phone: Start: 09-22-2024 End: 09-22-2024 Admission to same day surgery center Peggy Muñoz MD Work Phone: [facility] [place] Start: 09-22-2024 End: 09-22-2024 ambulatory Peggy Muñoz MD Work Phone: [facility] Work Phone: Start: 09-22-2024 Non-patient / Non-visit Vi Muñoz MD Work Phone: [facility] Work Phone: Start: 09-21-2024 End: 09-21-2024 Patient encounter procedure Peggy Muñoz MD Work Phone: [facility]-Pre-Surgical Testing Work Phone: Start: 09-21-2024 End: 09-21-2024 ambulatory Peggy Muñoz MD Work Phone: [facility] Work Phone: Start: 09-21-2024 Encounter for preprocedural laboratory examination Geoffrey Ibrahim [facility] Start: 09-18-2024 End: 09-18-[address] [facility] Work Phone: Start: 09-18-2024 End: 09-18-2024 Patient encounter procedure [facility] [address] [facility] Physician [facility] Work Phone: Start: 05-14-2024 End: 05-14-2024 ambulatory [facility] Start: 05-01-2024 Encounter for other preprocedural examination [facility] Start: 05-01-2024 End: 05-01-2024 ambulatory [facility] Start: 04-29-2024 End: 04-29-2024 ambulatory [facility] Start: 04-18-2023 End: 04-19-2023 ambulatory Tuan Lira [facility] Start: 03-08-2023 End: 03-09-2023 ambulatory Nat T TREVOR [facility] Start: 02-04-2023 End: 02-05-2023 ambulatory Nat T TREVOR [facility] Start: 01-10-2023 ambulatory Truman SHANTEL Facilit y:[facility] Start: 01-09-2023 ambulatory Truman SHANTEL Facilit y:[facility] Start: 11-09-2022 End: 11-10-2022 [...] Date Procedure Procedure Detail Performing Clinician Start: 01-26-2025 ALL AMMONIA Oriana Diane MD Work Phone: Start: 01-21-2025 ALL AMMONIA Oriana Diane MD Work Phone: Start: 01-08-2025 Urine culture Geoffrey wong DO Work Phone: Start: 11-26-2024 CT of abdomen with contrast Peggy Muñoz MD Work Phone: Start: 11-18-2024 Urine culture Peggy bahena MD Work Phone: Start: 11-05-2024 Hepatitis A virus antibody, IgM type Geoffrey Ibrahim DO Work Phone: Comment on above: A negative anti-HAV IgM result suggests no recent orcurrent HAV infection. Start: 11-05-2024 Hepatitis B core antibody measurement Geoffrey Ibrahim DO Work Phone: Start: 11-05-2024 Hepatitis B core antibody measurement, IgM type Geoffrey Ibrahim DO Work Phone: Comment on above: Performed at: [address] [id number] Director: Stewart Palmer PhD, Phone: [phone] Start: 11-02-2024 Plain X-ray of left elbow [...] portosystemic shunt) Peggy Muñoz MD Work Phone: H/O: surgery S/P TIPS (transj ugular intrahepatic portosystemic shunt) Derrek Rodgers MD Plan of Treatment Date Care Activity Detail Author Start: 2025 Adult BMI Screening Adult BMI Screening [facility] Start: 2025 Tobacco Screening Tobacco Screening [facility] Start: 04-01-2025 End: 04-01-2025 Patient encounter procedure 04/01/2025 9:20 AM EDT Office Visit [facility] [address] [facility] [address] [place] [address] Crispin Early DPM [address] [address] [facility] Start: 03-29-2025 Influenza vaccination [facility] Start: 01-27-2025 Urine culture [facility] Start: 01-27-2025 Bacteria identified in Urine by Culture Urine Culture [facility] Start: 01-19-2025 [facility] Start: 11-18-2024 Bacteria identified in Urine by Culture Urine Culture [facility] Start: 11-18-2024 Urine culture [facility] Start: 11-05-2024 Actin smooth muscle IgG Ab [Units/volume] in Serum [facility] Start: 11-05-2024 Jfccp-0-tqcmcdxjfrs.tumor marker [Mass/volume] in Serum or Plasma [facility] Start: 11-05-2024 Ceruloplasmin [Mass/volume] in Serum or Plasma [facility] Start: 11-05-2024 Hepatitis A virus Ab [Presence] in Serum by Immunoassay [facility] Start: 11-05-2024 Hepatitis A virus antibody, IgM type [facility] Start: 11-05-2024 Hepatitis B core antibody measurement [facility] Start: 11-05-2024 Hepatitis B core antibody measurement, IgM type [facility] Start: 11-05-2024 Hepatitis B virus surface Ab [Presence] in Serum [facility] Start: 11-05-2024 IgG [Mass/volume] in Serum or Plasma [facility] Start: 11-05-2024 Lipoprotein a [Moles/volume] in Serum or Plasma [facility] Start: 11-05-2024 Mitochondria M2 IgG Ab [Units/volume] in Serum [facility] Start: 11-05-2024 [facility] Start: 11-02-2024 Plain X-ray of left elbow XR elbow LT 2V [facility] Start: 11-02-2024 XR Elbow - left 2 Views [facility] Start: 10-20-2024 Urine culture [facility] Start: 10-20-2024 Bacteria identified in Urine by Culture Urine Culture [facility] Start: 10-07-2024 Plain X-ray of left elbow XR elbow LT 2V [facility] Start: 10-07-2024 XR Elbow - left 2 Views [facility] Start: 09-22-2024 [facility] Start: 09-22-2024 [facility] Start: 09-22-2024 Plain X-ray of left elbow XR elbow LT min 3V* [facility] Start: 09-22-2024 XR Elbow - left GE 3 Views [facility] Start: 03-29-2024 COVID-19 Vaccine ( season) COVID-19 Vaccine ( season) [facility] Start: 2022 Abdominal aortic aneurysm screening Abdominal Aortic Aneurysm (AAA) Screen [facility] Start: 2022 Fall Risk Screening Fall Risk Screening [facility] Start: 12-30-2007 Administration of varicella zoster vaccine Zoster (Shingles) Vaccine (1 of 2) [facility] Start: 12-30-2007 Pneumococcal Vaccine: 65+ Years (1 of 1 - PCV) Pneumococcal Vaccine: 65+ Years (1 of 1 - PCV) [facility] Start: 1976 DTaP,Tdap and Td Vaccines (1 - Tdap) DTaP,Tdap and Td Vaccines (1 - Tdap) [facility] Start: 1976 Urine screening for protein Diabetes: Urine Protein Screening [facility] Start: 12-30-1975 Adult BMI Follow Up Plan Adult BMI Follow Up Plan [facility] Start: 1969 Depression Screening Depression Screening [facility] Start: 12-30-1967 Glaucoma screening Diabetes: Retinopathy Screening [facility] Start: 1957 Hemoglobin A1c measurement Diabetes: Hemoglobin A1C [facility] Start: 1957 Medicare Annual Wellness (AWV) Medicare Annual Wellness (AWV) [facility] Start: 1957 Screening for malignant neoplasm of colon [facility] Actin smooth muscle IgG Ab [Units/volume] in Serum [facility] Alpha 1 antitrypsin [Mass/volume] in Serum or Plasma [facility] Alpha 1 antitrypsin [Mass/volume] in Serum or Plasma [facility] Alpha 1 antitrypsin phenotyping [Identifier] in Serum or Plasma by Immunofixation [facility] [id number]-[id number]-jpahkyrrmhd. tumor marker [Mass/volume] in Serum or Plasma [facility] Ceruloplasmin [Mass/volume] in Serum or Plasma [facility] Comprehensive metabo lic 2000 panel - Serum or Plasma [facility] Hepatitis A virus Ab [Presence] in Serum by Immunoassay [facility] Hepatitis A virus antibody, IgM type [facility] Hepatitis B core ant ibody measurement [facility] Hepatitis B core ant ibody measurement, IgM type [facility] Hepatitis B virus garcia rface Ab [Presence] in Serum [facility] Hepatitis B virus garcia rface Ag [Presence] in Serum or Plasma by Immunoassay [facility] Hepatitis C virus Ig G Ab [Presence] in Serum or Plasma by Immunoassay [facility] HFE gene mutations f ound [Identifier] in Blood or Tissue by Molecular genetics method Nominal [facility] Homogenous nuclear A b pattern [Titer] in Serum [facility] IgG [Mass/volume] in Serum or Plasma [facility] Lipoprotein a [Moles/volume] in Serum or Plasma [facility] Mitochondria M2 IgG Ab [Units/volume] in Serum [facility] Nuclear Ab [Titer] i n Serum [facility] Patient Education [facility] Work Phone: Patient referral [facility] Work Phone: [facility] Immunizations Immunization Date Immunization Notes Care Provider Fa [facility] 06-20-2020 influenza virus vaccine, unspecified formulation Mary Lomax MD Work Phone: [facility] Payers Date Payer Category Payer Private Health Insurance [id number] 2024 Medicare (Managed Care) [facility] [id number] 2024 Medicare HMO [employer] MEDICARE [id number] 2024 Medicare [id number] 2023 Unknown [id number] Self-pay 1955 Unknown [id number] 2.16.840.1.576478.3.579 .2.593 1957 Unknown [id number] 2.16.840.1.970417.3.579 .2.593 1957 Unknown [id number] 2.16.840.1.776514.3.579 .2.593 1957 Unknown [id number] 2.16.840.1.518054.3.579 .2.727 1957 Unknown [id number] 2.16.840.1.305685.3.579 .2.1286 1957 Unknown [id number] 2.16.840.1.140285.3.579 .2.1286 1957 Unknown [id number] 2.16.840.1.840998.3.579 .2.128 1957 Unknown [id number] 2.840.1.191827.3.579 .2.1285 1957 Unknown [id number] 2.840.1.803704.3.579 .2.1285 1957 Unknown [id number] 2.840.1.607235.3.579 .2.1259 Medicare [id number] Private Health Insurance [employer] [id number] Unknown [id number] Unknown O [id number] Unknown [id number] 2.840.1.538611.3.579 .2.531 Unknown [id number] 2.840.1.519147.3.579 .2.531 Unknown [id number] 2.840.1.329567.3.579 .2.531 Unknown [id number] 2.840.1.647753.3.579 .2.531 Unknown [id number] 2.840.1.877430.3.579 .2.531 Unknown [id number] 2.840.1.818976.3.579 .2.531 Unknown [id number] 2.840.1.363942.3.579 .2.531 Unknown [id number] 2.840.1.940212.3.579 .2.531 Unknown [id number] 2.840.1.895805.3.579 .2.531 Unknown [id number] 2.840.1.059890.3.579 .2.531 Unknown [id number] 2.16840.1.152626.3.579 .2.531 Unknown [id number] 2.840.1.575328.3.579 .2.531 Worker's Compensation [facility] [id number] Social History Date Type Detail Facility [facility] Work Phone: Start: 1955 Sex Assigned At Male F [facility] Start: 07-24-2019 [facility] day smoker [facility] Start: 03-01-2015 End: 09-18-2024 Sex Male (finding) [facility] Start: 09-21-2024 End: 01-19-2025 Tobacco smoking status NHIS Ex-smoker (finding) [facility] History of tobacco use Current smoker [facility] History of tobacco use Cigarette Smoker P [facility] Start: 2024 Tobacco use and exposure Smokeless tobacco non-user [facility] Start: 2024 Alcoholic beverage intake [facility] (finding) [facility] Start: 01-07-2019 End: 2024 History of Social function [facility] Start: 01-07-2019 End: 2024 Tobacco use panel [facility] Childcare [facility] Start: 1955 Sex assigned at Not on file P [facility] Start: 01-18-2025 Tobacco smoking stat [facility] Tobacco smoking consumption unknown [facility] Medical Equipment Procedure Code Equipment Code Equipment Origin al Text Equipment Identifier Dates Open reduction and internal fixation of fracture of humerus Elbow radius prosthesis ()[id number] [facility] Start: 09-22-2024 Open reduction and internal fixation of fracture of humerus Elbow radius prosthesis ()[id number] FDA Start: 09-22-2024 Goals Date Patient Goal Desired Activity /State Clinical Notes 04-29-2024 to 01-18-2025 Crispin Early DPM - 01/18/2025 9:00 AM Vinicio Lomax MD - 2024 9:45 AM EDTTelephone Encounter - Joana Daly - 12/18/2024 10:13 AM EDT Note Date & Type Note [...] Insecurity: No Food Insecurity (2024) Received from [facility] Hunger Screening Within the past 12 months [...] Partner Violence: Unknown (09/19/2023) Re[facility] from [facility] Safety & Environment Fear of Current or [...] and negative PT pedal pulses NEURO: 5.07 [place] Nayana monofilament test diminished to digits and forefoot bilaterally 125Hz tuning fork diminished to 1st MPJ bilaterally ORTHO: Positive pain on palpation to toenails of the left 1,2,3,4,5 toes and right 1,2,3,4,5 toes ASSESSMENT 1. Venous insufficiency 2. Diabetes mellitus due to underlying condition with diabetic polyneuropathy, unspecified whether usp insulin use (HCC) 3. Pain due to [...] edema. Discussed condition in detail. Recommendation for bokz-cvj-lojzhau compression stockings at this time and may consider prescription stockings in the future. Crispin Early DPM documented in this encounter [facility] 2024 History of Present illness Narrative [...] Interpersonal Safety: Unknown (09/19/2023) Received from [facility] Safety & Environment Fear of Current [...] results found for: INR , PROTIME From [place] 12/14/2024 Ammonia 43, high WBC 4.7, hemoglobin 10.3, platelets a 138 Lipase 125, 214, upper limit is 77 < 3x upper limit Sodium 141, BUN 55, creatinine 1 point 6, total bilirubin 1.8, AST 132, ALT 104, alkaline phosphatase 244, albumin 1.2 Imaging: Ultrasound right upper quadrant at [facility] performed 12/11/2024 Liver has lobulated margins [...] Referring and communicating with other health healthcare or medical Mary Lomax MD [facility] [place] documented in this encounter [employer] 12-18-2024 Miscellaneous Notes Spoke to patient's in regard to the gallbladder referral received from Dr. Muñoz. She stated Gerson was currently in a prison and she would call the office back to schedule once he's been released. documented in this encounter [facility] 12-18-2024 Telephone encounter Note Spoke to patient's in regard to the gallbladder referral received from Dr. Muñoz. She stated Gerson was currently in a prison and she would call the office back to schedule once he's been released. [facility] 12-17-2024 Note Received referral fo r patient from PCP Dr. Peggy Muñoz. Dx: chronic cholelithiasis with pancreatitis and a history of liver disease. Called patient to schedule, but no answer and VM not set up. Reached out to spouse SHABANA who reports that patient currently at [facility] but she and patient unwilling to travel to [place] for consult/treatment. Reports she cannot transport him due to distance. Declines referral at this time and will seek care closer in proximity to their hometown. [facility] 11-26-2024 Radiology Diagnostic study note [facility] Main [place] [address] [place] [address] CT Scan Report Signed Patient: Gerson Penn MR#: [id number] : 1955 Acct:[id number] Age/Sex: 68 / M ADM Date: 5 Loc: CT Room: Type: [facility] Attending Dr: Derrek Rodgers MD Copies [...] 11/26/2024 3:27 PM Dictation Location: [place] [address] Transcribed By: [facility] 11/26/24 1527 Dictated By: Gage Noland Jr, DO 11/26/24 1519 Signed By: 11/26/24 1527 [facility] 11-05-2024 Evaluation note Authored November 05, 2024 [...] kidney function Will arrange for screening colonoscopy [facility] Work Phone: 1(492) 384-370202-21-2025 Evaluation note* Diagnosis Onset Date Resolution Status Admit Date Fracture of coronoid process of left ulna acute September 18, 2 025 7:49am Fracture of radial head, left, closed acute September 18, 2 025 7:49am [facility] Work Phone: 1(374) 576-539702-21-2025 Evaluation note* Diagnosis Onset Date Resolution Status Admit Date Fracture of coronoid process of left ulna acute September 18, 2 025 7:49am Fracture of radial head, left, closed acute September 18, 025 7:49am Fracture of coronoid process of left ulna acute October 07, 2024 8:05am Fracture of radial head, left, closed acute October 07, 2024 8:05am Other specified postprocedural states noneactive September 8:05am [facility] Work Phone: 1(713) 369-277602-21-2025 Evaluation note* Diagnosis Onset Date Resolution Status [...] postprocedural states noneactive November 02, 2024 9:55am [facility] Work Phone: 1(771) 684-763810-17-2024 NotePatient: Gerson Penn Procedure Information Date/Time: 05/14/24 1200 Procedures: Coronary angiography Right heart cath Location: [facility] SENIOR POLICY ADVISOR 2 [facility] / [facility] (Cath) Providers: Taj Otero [...] products. Plan discussed with attending. Additional [facility] Note [place] 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 [facility] noteNo assessment information available[facility] Work Phone: Evaluation note* Diagnosis Onset Date Resolution Status Admit Date Fracture of coronoid process of left ulna acute September 18, 2 025 7:49am Fracture of radial head, left, closed acute September 18, [address] 025 7:[address] [facility] Work Phone: Evaluation note* [facility] Authored November 05, 2024 11: 08am [...] kidney function Will arrange for screening colonoscopy [facility] Work Phone: Evaluation note* Diagnosis Abnormal findings on diagnostic imaging of gallbladder- Primary documented in this encounter [facility]* Diagnosis Venous insufficiency- Primary Unspecified venous (peripheral) insufficiency Diabetes mellitus due to underlying condition with diabetic polyneuropathy, unspecified whether usp insulin use (HCC) Pain due to onychomycosis of toenails of both feet documented in this encounter [facility] HealthcareInstructionsNot on filedocumented in this encounterProMedica Health SystemInstructionsNot on filedocumented in this encounterProMediTwin City Hospital SystemReason for referral (narrative)No reason for referral information availableNewark [facility] Work Phone: Summary Purpose Family History Relationship Condition Age at Onset Recorded Date/T [...] history of colon cancer Unknown Advance Directives Advance Directive Response Recorded Date/ Time Advance Directives No February 06 10:05am Advance Directive Response Recorded Date/ Time Advance Directives No February 06 11:05am Chief Complaint and Reason for Visit Chief Complaint Admit Date 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 [facility] 2024 7:49am Reason for Visit Admit Date Fracture of coronoid process of left uln a September 18, 2024 7:49am Fracture of radial head, left, closed Fe bruary 2024 7:49am Chief Complaint Admit Date 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 2024 7:49am Left Radial Head Fracture September 21, 2024 7:38am Chief Complaint Admit Date 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 FX [facility] 2024 7:49am Left Radial Head Fracture September 21, 2024 7:38am Left Radial Head Fracture September 22, 2024 7:29am Left Radial Head Fracture September 22, 2024 10:58am Chief Complaint Admit Date 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 FX [facility]2024 7:49am Left Radial Head Fracture September 21, [...] 8:05am Fracture of radial head, left, closed [facility] 2024 8:05am Other specified postprocedural states [facility] 2024 8:05am Chief Complaint Admit Date 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 FX CT [facility] 2024 7:49am Left Radial Head Fracture September 21, 2024 7:38am Left Radial Head Fracture September 22, 2024 7:29am Left Radial Head Fracture September 22, 2024 10:58am 3 weeks post op October 07, 2024 8:0 5am S52.122A - Displaced fracture of head of left radi October 07, 2024 8:07am Unknown October 20, 2024 6:2 0pm Chief Complaint Admit Date 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 FX CT [facility] 2024 7:49am Left Radial Head [...] 8:05am Fracture of radial head, left, closed [facility] 2024 8:05am Other specified postprocedural states [facility] 2024 8:05am Fracture of coronoid process of left uln a November 02, 2024 9:55am Fracture of radial head, left, closed Ap ril 2024 9:55am Other specified postprocedural states Ap ril 2024 9:55am Chief Complaint Admit Date 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 FX [facility]2024 7:49am Left Radial Head Fracture September 21, [...] Fracture of radial head, left, closed [facility] 2024 8:05am Other specified postprocedural states Ma rc 2024 8:05am Fracture of coronoid process of [...] 05, 2024 10:08am Chief Complaint Admit Date 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 [facility] 2024 7:49am Left Radial Head Fracture [...] 2024 11: 25am Chief Complaint Admit Date 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 FX CT [facility] 2024 7:49am Left Radial Head [...] 2024 12: 30pm Chief Complaint Admit Date 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 pain/hx of varices. 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 December 272024 11:12am Pancytopenia January 12, 2025 11:1 2am Additional Source Comments (unrecognized sect ion and content) No Status Records FoundNo Status Records FoundNo Status Records FoundNo Status Records FoundNo Status Records FoundNo Status Records FoundNo Status Records Found INFORMATION SOURCE (unrecogn ized section and content) DATE CREATED AUTHOR 06/17/2020 [facility] DATE CREATED AUTHOR AUTHOR'S ORGANIZ ATION 07/07/2022 [facility] DATE CREATED AUTHOR AUTHOR'S ORGANIZ ATION 04/20/2023 [facility] DATE CREATED AUTHOR AUTHOR'S ORGANIZ ATION 12/24/2024 [facility] DATE CREATED AUTHOR AUTHOR'S ORGANIZ ATION 12/31/2024 [facility] DATE CREATED AUTHOR AUTHOR'S ORGANIZ ATION 01/19/2025 [facility] EPIC DATE CREATED AUTHOR AUTHOR'S ORGANIZ ATION 02/07/2025 [facility] Goals (unrecognized section and content) Goals may be documented in a n alternate sectionGoals may be documented in an alternate sectionGoals may be documented in an alternate sectionNot on filedocumented as of this encounterGoals may be documented in an alternate sectionNot [...] November 26, 2024 End: November 26, 2024 Auto Winder Relationship Specialty Start Date End Date Peggy Muñoz MD [address] [place] [address] PCP - General Family Medicine 12/22/24 Auto Winder Relationship Specialty Start Date End Date Unallocated, [place] Provider, MD [address] [place] [address] PCP - General Family Medicine 10/26/24 Auto Winder Relationship Specialty Start Date End Date Unallocated, Janey Odell MD [address] [place] [address] PCP - General Family Medicine 10/26/24 Auto Winder Relationship Specialty Start Date End Date Unallocated, Janey Odell MD [address] [place] [address] PCP - General Family Medicine 10/26/24 Team Status: Inactive Member Role Status Dates Peggy Muñoz MD Attending Provider Active Sta rt: January 08, 2025 End: January 08, 2025 Team Status: Active Member Role Status Dates Marti Khan APRN Attending Provider Active Start: January 12, 2025 NON STAFF Primary Care Provider Active Start: January 12, 2025 Team Status: Active Member Role Status Dates Derrek Rodgers MD Attending Provider Active Start: January 19, 2025 Derrek Rodgers MD Other Provider Active Start: Dec Peggy Muñoz MD Primary Care Provider Active Start: January 19, 2025 Team Status: Active Member Role Status Dates Peggy Muñoz MD Primary Care Provider Active Start: January 21, 2025 Kelley Potts CMA Attending Provider Active St art: January 21, 2025 Team Status: Inactive Member Role Status Dates Truman Ulloa DO Attending Provider Active S tart: January 27, 2025 End: January 27, 2025 Auto Winder Relationship Specialty Start Date End Date Peggy Muñoz MD [address] [facility] [place] [address] PCP - General Family Medicine 12/22/24 Reason for Visit (unrecogniz ed section and [...] BE BASED ON THE PRIMARY CLINICAL RECORDS. [facility]. provides no warranty or guarantee of the accuracy or completeness of information in this document.
[2025-02-11 01:57] LABS: Ammonia 34 umol/L (11-32)
== END 2025-02-11 01:37 | disposition home or self-care (01) ==
LOC: LAB 01:36
PROVIDERS: PCP Family Medicine; Visit Provider Family Medicine
DX: E03.9 Hypothyroidism, unspecified (principal); K74.60 Unspecified cirrhosis of liver; R41.82 Altered mental status, unspecified
CPT/HCPCS: 36415; 82140